=== PATIENT | male | born 1945 | race Caucasian/White ===

== ENCOUNTER 2024-02-12 14:54 | Outpatient (OUT) | payer MEDICARE, BC, SELFPAY ==
--- NOTE | 2024-02-12 16:13 | PE_ITS ---
[address] [address] Patient Name: HILARY LEAL MRN: [id number] date: 1945 Sex: M Assigned Patient Location: PETCT Current Patient Location: PETCT Accession/Order Number: [id number] Exam Date: 02/12/2024 15:30 Report Date: 02/21/2024 10:42 At the request of: NON-STAFF PHYSICIAN Procedure: PET skull to mid thigh NUCLEAR MEDICINE PET/CT HISTORY: Left parotid carcinoma. COMPARISON: None. METHOD: 12.34 mCi of F-18 FDG was administered intravenously. Blood sugar level at the time of the injection: 106. At 59 minutes from injection, PET images were obtained from the skull base through the midthigh levels in the axial plane. Reformatted images were performed in the sagittal and coronal planes. A low-dose, noncontrast CT scan was performed for attenuation correction and anatomical localization. A low dose, noncontrast and nondiagnostic CT scan was performed for attenuation correction and anatomic localization. Mediastinal blood pool SUV max 2.5 using the patient's body weight as the normalization method. FINDINGS: HEAD AND NECK: There are no metabolically active lymph nodes in the neck. CHEST: There are no metabolically active mediastinal, hilar, or axillary lymph nodes. The major airways are patent. There is no pericardial effusion. There is no evidence of abnormal metabolic uptake in the esophagus. There is no evidence of abnormal metabolic uptake in the lung parenchyma. There is there are emphysematous changes. There are no pleural effusions. There is no pneumothorax. ABDOMEN AND PELVIS: There is no evidence of abnormal metabolic activity in the liver or adrenal glands. There is no evidence of abnormal metabolic active lymph nodes in the abdomen or pelvis. There is no free fluid. There is physiologic uptake in the urinary system and bowel. MUSCULOSKELETAL: There is no evidence of abnormal metabolically active bony lesions. PET/PET skull to mid thigh IMPRESSION: No evidence of metastatic disease. Emphysema. Electronically authenticated by: MARY FRENCH Date: 02/21/2024 10:42
== END 2024-02-12 14:55 | disposition home or self-care (01) ==
LOC: PETCT 14:54
PROVIDERS: PCP Family Medicine
DX: C79.89 Secondary malignant neoplasm of other specified sites (principal); C80.1 Malignant (primary) neoplasm, unspecified
CPT/HCPCS: 78815; A9552

== ENCOUNTER 2024-05-15 10:55 | Outpatient (OUT) | payer MEDICARE, BC, SELFPAY | END 2024-05-15 10:56 | disposition home or self-care (01) | LOC: WC 10:55 | PROVIDERS: PCP Family Medicine; Visit Provider Physician Assistant | DX: I87.311 Chronic venous hypertension (idiopathic) with ulcer of right lower extremity (principal); L97.811 Non-pressure chronic ulcer of other part of right lower leg limited to breakdown of skin; L97.511 Non-pressure chronic ulcer of other part of right foot limited to breakdown of skin | CPT/HCPCS: G0463 ==

== ENCOUNTER 2024-06-12 15:17 | Outpatient (OUT) | payer MEDICARE, BC, SELFPAY | END 2024-06-12 15:18 | disposition home or self-care (01) | LOC: WC 15:18 | PROVIDERS: PCP Family Medicine; Visit Provider Physician Assistant | DX: I87.311 Chronic venous hypertension (idiopathic) with ulcer of right lower extremity (principal); L97.811 Non-pressure chronic ulcer of other part of right lower leg limited to breakdown of skin; L97.511 Non-pressure chronic ulcer of other part of right foot limited to breakdown of skin; L89.893 Pressure ulcer of other site, stage 3 | CPT/HCPCS: G0463 ==

== ENCOUNTER 2024-07-03 13:00 | Outpatient (OUT) | payer MEDICARE, BC, SELFPAY ==
--- OUTSIDE RECORDS SUMMARY | 2024-06-11 11:07 | XMS_ITS ---
Author Name Auto Generated Organization [facility] Care Team Providers Care Cabinetmaker Supervisor Name Role Phone NILSON ETIENNE Admitting Unavailable NILSON ETIENNE Attending Unavailable ROBY DE LA O Primary Care Unavailable NILSON ETIENNE Referring Unavailable ROBY DE LA O Primary Care Unavailable ROBY DE LA O Attending Unavailable ZELDA ROSENBAUM Attending Unavailable NILSON ETIENNE Attending Unavailable GENERIC PROVIDER, NO ASSIGNED PCP Primary Care Unavailable MANJINDER GALLOWAY Attending Unavailable GENERIC PROVIDER, NO ASSIGNED PCP Primary Care Unavailable NILSON ETIENNE Attending Unavailable ROBY DE LA O Primary Care Unavailable NLISON ETIENNE Attending Unavailable ROBY DE LA O Primary Care Unavailable NILSON ETIENNE Attending Unavailable ROBY DE LA O Primary Care Unavailable PROBLEMS DATE TYPE CONDITION / CODE ATTENDING STATUS [facility] 06/11/2024 Admitting Diagnosis Impacted cerumen, left ear / H61.22(ICD-10) [facility] 12/26/2023 Admitting Diagnosis Secondary malignant neoplasm of other specified sites / 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) [facility] 12/26/2023 Admitting Diagnosis Malignant (primary) neoplasm, unspecified (Multi) / C80.1(ICD-10) [facility] 10/24/2023 Admitting Diagnosis 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(ICD-10) [facility] 01/30/2023 Admitting Diagnosis Other diseases of salivary glands / K11.8(ICD-10) [facility] 11/07/2023 Admitting Diagnosis Personal history of nicotine dependence / Z87.891(ICD-10) [facility] 01/17/2023 Admitting Diagnosis Shortness of breath / R06.02(ICD-10) [facility] 01/17/2023 Admitting Diagnosis Encounter for preprocedural cardiovascular examination / Z01.810(ICD-10) [facility] 01/17/2023 Admitting Diagnosis Occlusion and stenosis of right carotid artery / I65.21(ICD-10) [facility] 01/17/2023 Admitting Diagnosis Mixed hyperlipidemia / E78.2(ICD-10) [facility] 01/17/2023 Admitting Diagnosis Ischemic cardiomyopathy / I25.5(ICD-10) [facility] 01/17/2023 Admitting Diagnosis 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.10(ICD-10) [facility] PROCEDURES No Procedure Records Found RESULTS GLUCOSE Collected: 4 10:13 PM Status: F Source: [facility] TYPE CODE TESTS RESULT OUT OF RANGE REFERENCE UNITS LAB 2341-6(LOINC) Glucose 91 74-99 mg/dL Performed By: #### 2341-6 ## ## MONICA SCHMOTZER L ([id number]) [facility] ([facility]) [address] [place] [address] GLUCOSE Collected: 7:12 PM Status: F Source: [facility] TYPE CODE TESTS RESULT OUT OF RANGE REFERENCE UNITS LAB 2341-6[facility] Glucose 164 High 74-99 mg/dL Performed By: #### 2341-6 ## ## MONICA SCHMOTZER L ([id number]) [facility] ([facility]) [address] [place] [address] SURGICAL PATHOLOGY STUDY Observed: 11/21 2:40 PM Status: F Source: [facility] Order Comment: Pre-op diagno sis: Malignant neoplasm of parotid gland (Multi) [C07] Pathology report.total SEE COMMENT Surgical Pathology Case: [id number] Authorizing Provider: Nilson Etienne MD Collected: 11/22/2023 1440 Ordering Location: [facility] Received: 11/22/2023 1443 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 - Margins are negative, closest: Deep and superficial superior (less than 0.1 cm). - Three periparotid lymph nodes, negative for malignancy. Note: While this is most likely consistent with a metastasis, a primary parotid malignancy cannot entirely be ruled out. Clinical correlation is recommended. mental hygiene consultant: Dr. Gabriel Walls. Laboratory comment By the signature on this report, the individual or group listed as making the Final Interpretation/Diagnosis certifies that they have reviewed this case. RESIDENT REVIEW The gross and/or microscopic findings were reviewed in conjunction with pathology resident, Ewa Ni MD. 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 The specimen has 2 stitches which are designated as follows: Long stitch superior, short stitch anterior. The specimen is inked as follows: deep-black, superficial-blue, posterior-green, anterior-yellow. The specimen is serially sectioned from superior to inferior to reveal a pale yellow well circumscribed mass, which measures 2.5 x 1.2 x 1.3 cm. This mass abuts the deep margin, less than 0.1 cm from deep margin. This mass abuts the superficial margin, less than 0.1 cm from the superficial margin. The mass is 0.2 cm from the posterior margin, and 0.3 cm from the anterior margin. The specimen is serially sectioned from superior to inferior in 11 slices total. Photographs have been taken. The specimen is submitted entirely in 12 cassettes. [facility] Summary of Cassettes: Specimen Label Site A 1 Frozen portion, taken from section 2 of specimen, containing largest mass 2 Most superior section 1, cut perpendicular to serial sections 3-11 One section per cassette in order from superior section 2 to inferior section 10 12 Most inferior section 11, cut perpendicular to serial sections LAB AP INTRAOPERATIVE CONSULTATION SEE COMMENT A: Received Date and Time: 11/22/23 Called Date and Time: 11/22/23 at 3:13 Intraoperative Diagnosis: Squamous cell carcinoma. Intraoperative Consult Pathologist(s): Jan Ibrahim MD COMPLETE BLOOD COUNT PANEL Collected: 11/15/2023 10:5 2 AM Status: F Source: [facility] TYPE CODE TESTS RESULT OUT OF RANGE REFERENCE UNITS LAB 6690-2(LOINC) Leukocytes 9.3 4.4-11.3 x10*3/ uL LAB 17493-1(LOINC) Erythrocytes.nuc l eated/100 leukocytes 0.0 0.0-0.0 /100 WBCs LAB 789-8(LOINC) Erythrocytes 4.17 Low 4.50-5.90 x10* 6/uL LAB 718-7(LOINC) Hemoglobin 14.3 13.5-17.5 g/dL LAB 4544-3(LOINC) Hematocrit 42.9 41.0-52.0 % LAB 787-2(LOINC) Erythrocyte mean corpuscular volume 103 High 80-100 fL LAB 785-6(LOINC) Erythrocyte mean corpuscular hemoglobin 34.3 High 26.0-34.0 pg LAB 786-4(LOINC) Erythrocyte mean corpuscular hemoglobin concentration 33.3 32.0-36.0 g/dL LAB 788-0(LOINC) Erythrocyte distribution width 14.0 11.5-14.5 % LAB 777-3(LOINC) Platelets 130 Low 150-450 x10*3/uL Performed By: #### 09848-2 # ### MONICA Ramirez ([id number]) [facility] ([facility]) [id number] [place] [address] BASIC METABOLIC 2000 PANEL Collected: 1 10:52 AM Status: F Source: [facility] TYPE CODE TESTS RESULT OUT OF RANGE REFERENCE UNITS LAB 2345-7(LOINC) Glucose 39 Low Alert 74-99 mg/dL LAB 2951-2(LOINC) Sodium 143 136-145 mmol/L LAB 2823-3(LOINC) Potassium 4.3 3.5-5.3 mmol/L LAB 2075-0(LOINC) Chloride 99 98-107 mmol/L LAB 2028-9(LOINC) Carbon dioxide 33 High 21-32 mmo l/L LAB 95875-5(LOINC) Anion gap 15 10-20 mmol/L LAB 3094-0(LOINC) Urea nitrogen 41 High 6-23 mg/d L LAB 2160-0(LOINC) Creatinine 1.57 High 0.50-1.30 mg/dL LAB 93787-2(LOINC) Glomerular filtration rate/1.73 sq M.predicted 45 Low >60 mL/min/1 .73m*2 Result Comment: Calculations of estimated GFR are performed using the 2020 CKD- EPI Study Refit equation without the race variable for the IDMS-Traceable creatinine methods. https://jasn.asnjournals.org/content///ASN.9503878457 LAB 53856-7(LOINC) Calcium 9.7 8.6-10.6 mg/dL Performed By: #### 94928-5 # ### MONICA Ramirez ([id number]) [facility] ([facility]) [address] [place] [address] ALLERGIES DATE TYPE / CODE NAME / CODE REACTION SEVERITY SOURCE 12/26/2022 DRUG INGREDI/616189 003(SNOMED CT) RAMIPRIL Angioedema [facility] 12/26/2022 DRUG INGREDI/915169 003(SNOMED CT) MORPHINE Unknown [facility] 12/26/2022 DRUG/083893722 (SNOMED CT) NUTRITIONAL SUPPLEMENT-FIBER Unknown [facility] 10/27/2004 DRUG INGREDI~Food/ 87048670(SNOME D CT) CITRUS FLAVOR [facility] 10/27/2004 DRUG INGREDI~Food/ 84614395(SNOME D CT) EGG [facility] ENCOUNTERS ADMIT/DISCHARGE ACCOUNT NUMBER ADMITTING ENCOUNTER CLASS LOCATION SOURCE 06/11/2024/06/12/19 [id number] Ambulatory Building:DO [address] Ambulatory 03/26/2024/03/26/19 25 [id number] Ambulatory Building:DO [address] Ambulatory 12/26/2023/12/26/19 24 [id number] Ambulatory Building:DO [address] Ambulatory 11/22/2023/11/24/19 24 [id number] NILSON ETIENNE Ambulatory Building:NM C5Room: [id number] : 5001-A [facility] 11/15/2023/11/15/19 24 [id number] [facility] 11/07/2023/11/08/19 24 [id number] Ambulatory Building:DO [address] Ambulatory 10/24/2023/10/24/19 24 [id number] Ambulatory Building:DO [address] Ambulatory 10/11/2023/10/11/19 24 [id number] Ambulatory Building:NO MS NAVEENJUDY [facility] 10/11/2023/10/11/19 24 [id number] Ambulatory Building:NO MS NAVEENMED [facility] PAYERS ENCOUNTER GUARANTOR PAYER SUBSCRIBER SOURCE 06/11/2024 HILARY Andrew COEDOB: [place] [address]Xqf: () Primary Insurance:MEDICARE Policy Number: [id number] ve Date:2011-01-13 HILARY Andrew COEDOB: [id number] [place] [address]Wmz: () [facility] 06/11/2024 Secondary Insurance:ANTHEMPo licy Number: [id number] jewell Date:2011-10-15 HILARY Andrew COEDOB: [id number] [place] [address]Pml: () [facility] 03/26/2024 HILARY Andrew COEDOB: [place] [address]Vyq: () Primary Insurance:MEDICARE Policy Number: [id number] ve Date:2011-01-13 HILARY Andrew COEDOB: [id number] [place] [address]Wei: () [facility] 03/26/2024 Secondary Insurance:ANTHEMPo licy Number: [id number] jewell Date:2011-10-15 HILARY Andrew COEDOB: [id number] [place] [address]Zvn: () [facility] 12/26/2023 HILARY Andrew COEDOB: [place] [address]Axh: () Primary Insurance:MEDICARE Policy Number: [id number] Date:2011-01-13 HILARY Andrew COEDOB: [id number] [place] [address]Tpp: () [facility] 12/26/2023 Secondary Insurance:ANTHEMPo licy Number: [id number] jewell Date:2011-10-15 HILARY Andrew COEDOB: [id number] [place] [address]Spt: () [facility] 11/22/2023 HILARY Andrew COEDOB: [place] [address]Ltj: () Primary Insurance:MEDICARE Policy Number: [id number] ve Date:2011-01-13 HILARY Andrew COEDOB: [id number] [place] [address]Lbg: () [facility] 11/22/2023 Secondary Insurance:ANTHEMPo licy Number: [id number] jewell Date:2011-10-15 HILARY Andrew COEDOB: [id number] [place] [address]Cdh: () [facility] 11/15/2023 HILARY Andrew COEDOB: [place] [address]Evm: () Primary Insurance:MEDICARE Policy Number: [id number] Date:2011-01-13 HILARY Andrew COEDOB: [id number] [place] [address]Rig: () [facility] 11/15/2023 Secondary Insurance:ANTHEMPo licy Number: [id number] jewell Date:2011-10-15 HILARY Andrew COEDOB: [id number] [place] [address]Gpp: () [facility] 11/07/2023 HILARY Andrew COEDOB: [place] [address]Jyq: () Primary Insurance:MEDICARE Policy Number: [id number] ve Date:2011-01-13 HILARY Andrew COEDOB: [id number] [place] [address]Pah: () [facility] 11/07/2023 Secondary Insurance:ANTHEMPo licy Number: [id number] jewell Date:2011-10-15 HILARY Andrew COEDOB: [id number] [place] [address]Dto: () [facility] 10/24/2023 HILARY Andrew COEDOB: [place] [address]Eul: () Primary Insurance:MEDICARE Policy Number: [id number] ve Date:2011-01-13 HILARY Andrew COEDOB: [id number] [place] [address]Mtj: () [facility] 10/24/2023 Secondary Insurance:ANTHEMPo licy Number: [id number] jewell Date:2011-10-15 HILARY Andrew COEDOB: [id number] [place] [address]Mwu: () [facility] 10/11/2023 HILARY Andrew COEDOB: [place] [address]Dei: () () Primary Insurance:MEDICARE Policy Number: [id number] Date:1047-69-69Vkv n Name:Medicare HILARY Andrew COEDOB: [id number] [place] [address] [facility] 10/11/2023 Secondary Insurance:BCBSPoli cy Number: [id number] jewell Date:2011-10-15 HILARY Lorrie COEDOB: [id number] [place] [address] [facility] 10/11/2023 HILARY Andrew COEDOB: [place] [address]Yhx: (HP) (WP) Primary Insurance:MEDICARE Policy Number: [id number] Date:2108-38-01Dtq n Name:Medicare HILARY Andrew COEDOB: [id number] [facility] [place] [place] [address] [facility] 10/11/2023 Secondary Insurance:BCBSPoli cy Number: [id number] jewell Date:2011-10-15 HILARY Andrew COEDOB: [id number] [place] [address] [facility] EPIC
--- OUTSIDE RECORDS SUMMARY | 2024-07-04 13:29 | XMS_ITS | Encounter Summary ---
Author Organization [facility] Address [address] [place] [address] Phone Care Team Providers Care Foil Cutter Name Role Phone Generic Provider, No Assigned Pcp MD Primary Car e Provider Unavailable Franck Pérez MD Unavailable [phone] Yahir Bowling DO Unavailable [phone] Raheem Ambrosio DO Primary Care Provider [phone] Encounter Details Date Type Department Care Team (Late st Contact Info) Description 05/02/2023 Scanned Document [facility] [address] [place] [address] Scanning, Generic Provider Social History Tobacco Use Types Packs/Day Years Used Date Smoking Tobacco: Every Day Cigarettes Last attempted to quit: 2022 Smokeless Tobacco: Current Alcohol Use Standard Drinks/Week Comments Not Currently 0 (1 standard drink = 0.6 oz pur e alcohol) PHQ-2 Answer Date Recorded Patient Health Questionnaire-2 Score 0 01/27/2023 Sex and Gender Information Value Date Recorded Sex Assigned at Not on file Legal Sex Male 1:26 AM EST Gender Identity Not on file Sexual Orientation Not on file documented as of this encounter Plan of Treatment Upcoming Encounters Date Type Department Care Team (Late st Contact Info) Description 08/06/2024 11:30 AM EDT Office Visit [place] [address] [place] [address] [place] [address] [place] [address] [place] [address] 09/17/2024 1:30 PM EDT Office Visit [facility] [address] [facility] [address] [place] [address] Francisco Moore MD [address] [facility] [address], [address] [place] [address] documented as of this encounter Visit Diagnoses Not on filedocumented in this encounter Additional Health Concerns Assessment Noted Time A fall risk assessment has been complete d for the patient 01/27/2023 10:52 AM EST documented as of this encounter Care Teams Foil Cutter Relationship Specialty Start Date End Date Generic Provider, No Assigned [place], [place] [address] PCP - General Family Medicine 12/31/22 11/14/23 Raheem Ambrosio DO [address] [place] [address] PCP - General Family Medicine 11/15/23 Franck Pérez MD [address] [place] [address] Referring Physician Radiation Oncology 01/12/23 Yahir Bowling DO [address] [place] [address] Referring Physician Otolaryngology 01/27/23 documented as of this encounter
--- OUTSIDE RECORDS SUMMARY | 2024-07-04 13:29 | XMS_ITS | Encounter Summary ---
Author Organization [facility] Address [address] [place] [address] Phone Care Team Providers Care Conditioning Coach Name Role Phone Generic Provider, No Assigned Pcp MD Primary Car e Provider Unavailable Franck Pérez MD Unavailable [phone] Yahir Bowling DO Unavailable [phone] Raheem Ambrosio DO Primary Care Provider [phone] Encounter Details Date Type Department Care Team (Late st Contact Info) Description 12/21/2022 Scanned Document [facility] [address] [place] [address] Scanning, Generic Provider Social History Tobacco Use Types Packs/Day Years Used Date Smoking Tobacco: Never Assessed Sex and Gender Information Value Date Recorded Sex Assigned at Not on file Legal Sex Male 1:26 AM EST Gender Identity Not on file Sexual Orientation Not on file documented as of this encounter Plan of Treatment Upcoming Encounters Date Type Department Care Team (Late st Contact Info) Description 08/06/2024 11:30 AM EDT Office Visit [facility] [address] [facility] [address] [place] [address] [place] [address] [place], [place] [address] 09/17/2024 1:30 PM EDT Office Visit [facility] [address] [facility] [address] [place] [address] Francisco Moore MD [address] [facility] 2, [address] [place] [address] documented as of this encounter Visit Diagnoses Not on filedocumented in this encounter Care Teams Conditioning Coach Relationship Specialty Start Date End Date Generic Provider, No Assigned [place], [place] [address] PCP - General Family Medicine 12/31/22 11/14/23 Raheem Ambrosio DO [address] [place] [address] PCP - General Family Medicine 11/15/23 Franck Pérez MD [address] [place] [address] Referring Physician Radiation Oncology 01/12/23 Yahir Bowling DO [address] [place] [address] Referring Physician Otolaryngology 01/27/23 documented as of this encounter
--- OUTSIDE RECORDS SUMMARY | 2024-07-04 13:29 | XMS_ITS | Clinical Summary ---
Author Organization [facility] Address [address] [place] [address] Phone Care Team Providers Care Soap Mixer Name Role Phone Franck Pérez MD Unavailable [phone] Yahir Bowling DO Unavailable [phone] Raheem Ambrosio DO Primary Care Provider [phone] Allergies Active Allergy Reactions Criticality Noted Date Comments Ramipril Angioedema High 12/26/2022 Overton Flavor Hives 10/27/2004 Morphine Unknown High 12/26/2022 Medications allopurinol (Zyloprim) 300 mg tablet Take 1 tablet (300 mg) by mouth once daily. Active ARIPiprazole (Abilify) 5 mg tablet Take 1 tablet (5 mg) by mouth once daily. Active aspirin 81 mg EC tablet Take 1 tablet (81 mg) by mouth once daily. Active atorvastatin (Lipitor) 10 mg tabletIndicatio ns:hyperlipidem ia Take 1 tablet (10 mg) by mouth once daily at bedtime. For HLD Active carvedilol (Coreg) 3.125 mg tablet Take 1 tablet (3.125 mg) by mouth 2 times daily (morning and late afternoon). For HTN Active potassium chloride CR 10 mEq ER tablet Take 1 tablet (10 mEq) by mouth once daily. Do not crush, chew, or split. For hypokalemia Active pregabalin (Lyrica) 100 mg capsule Take 1 capsule (100 mg) by mouth 2 times a day. For neuropathy Active tamsulosin (Flomax) 0.4 mg 24 hr capsuleIndicati ons:benign prostatic hyperplasia with lower urinary tract sx Take 1 capsule (0.4 mg) by mouth once daily. Active vortioxetine (Trintellix) 10 mg tablet tablet Take 1 tablet (10 mg) by mouth once daily. Active docusate sodium (Colace) 100 mg capsule Take 1 capsule (100 mg) by mouth every 24 (twenty four) hours if needed for constipation. Active ferrous sulfate 325 (65 Fe) MG EC tabletIndicatio ns:iron deficiency anemia Take 65 mg by mouth every other day. Do not crush, chew, or split. Active multivitamin tablet Take 1 tablet by mouth once daily. For vitamins Active ascorbic acid (Vitamin C) 500 mg ER capsule Take 1 capsule (500 mg) by mouth twice a day. For vitamin Active cholecalciferol (Vitamin D-3) 10 MCG (400 UNIT) tablet Take 1 tablet (10 mcg) by mouth once daily. For Vitamin D Active furosemide (Lasix) 40 mg tabletIndicatio ns:edema Take 1 tablet (40 mg) by mouth once daily. Active mirtazapine (Remeron) 30 mg tablet Take 1 tablet (30 mg) by mouth once daily at bedtime. For insomnia 4 Active calcium carbonate (Oscal) 500 mg calcium (1,250 mg) tablet Take 1 tablet (1,250 mg) by mouth 2 times daily (morning and late afternoon). For osteoporosis Active pantoprazole (ProtoNix) 40 mg EC tablet Take 1 tablet (40 mg) by mouth early in the morning.. For GERD 4 Active fluticasone (Flonase) 50 mcg/actuation nasal spray 5 Active HYDROcodone-hermelinda taminophen (Glenwood) 5-325 mg tablet 5 Active codeine-guaifen esin (Robitussin-AC) 10-100 mg/5 mL syrup Take by mouth. Activ e calcium carbonate-vitam in D3 (Oyster Shell) 250 mg-3.125 mcg (125 unit) tablet Take 1 tablet by mouth 2 times daily (morning and late afternoon). Active lubricating eye drops ophthalmic solution 1 drop if needed for dry eyes. 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 01/30/2023 Two-vessel coronary artery disease 01/17/2023 Ischemic cardiomyopathy 01/17/2023 Mixed hyperlipidemia 01/17/2023 Dementia 01/17/2023 Carotid stenosis, right 01/17/2023 Pre-operative cardiovascular examination 023 Shortness of breath 01/17/2023 Encounters Date Type Department Care Team Description 06/11/2024 11:00 AM EDT Office Visit [facility] [address] [place] [address] Nilson Diaz MD Malignant neoplasm of parotid gland (Multi) (Primary Dx); Impacted cerumen of left ear 06/11/2024 Telephone [facility] [address] [place] [address] Nilson Diaz MD 06/11/2024 Travel from Last 3 Months Family History Medical History Relation Name Comments Heart disease Father No Known Problems Mother Relation Name Status Comments Father Mother Social History Tobacco Use Types Packs/Day Years Used Date Smoking Tobacco: Some Days Cigarettes Last attempted to quit: 2022 Smokeless Tobacco: Never Tobacco Cessation:Ready to Q uit: No; Counseling Given: Yes Alcohol Use Standard Drinks/Week Comments Not Currently 0 (1 standard drink = 0.6 oz pur e alcohol) [facility] Utilities Answer Date Recorded In the past 12 months has [facility] [employer], gas, oil, or water [employer] threatened to shut off services in your home? No 11/22/2023 Humiliation, Afraid, Rape, and Kick questionnair e Answer Date Recorded Within the last year, have y ou been afraid of your partner or ex-partner? No 11/22/2023 Within the last year, have y ou been humiliated or emotionally abused in other ways by your partner or ex-partner? No Within the last year, have y ou been kicked, hit, slapped, or otherwise physically hurt by your partner or ex-partner? No 11/22/2023 Within the last year, have y ou been raped or forced to have any kind of sexual activity by your partner or ex-partner? No 11/22/2023 AUDIT-C Answer Date Recorded Q1: How often do you have a drink containing alcohol? Never 11/22/2023 Q2: How many drinks containi ng alcohol do you have on a typical day when you are drinking? Patient does not drink Q3: How often do you have si x or more drinks on one occasion? Never 11/22/2023 Overall Financial Resource Strain (CARDIA) Answe r Date Recorded How hard is it for you to pa y for the very basics like food, housing, medical care, and heating? Not hard at all 11/23/2023 PHQ-2 Answer Date Recorded Patient Health Questionnaire-2 Score 0 11/22/2023 Hunger Vital Sign Answer Date Recorded Within the past 12 months, y ou worried that your food would run out before you got the money to buy more. Never true 11/22/19 Within the past 12 months, t he food you bought just didn't last and you didn't have money to get more. Never true 11/22/2023 PRAPARE - Transportation Answer Date Re corded In the past 12 months, has l ack of transportation kept you from medical appointments or from getting medications? No 11/13 In the past 12 months, has l ack of transportation kept you from meetings, work, or from getting things needed for daily living? No 11/23/2023 Housing Stability Vital Sign Answer Levon e Recorded In the last 12 months, was t here a time when you were not able to pay the mortgage or rent on time? Patient declined 11/23/19 In the past 12 months, how m any times have you moved where you were living? 0 11/23/2023 At any time in the past 12 m [facility], were you homeless or living in a long-term (including now)? No 11/23/2023 Sex and Gender Information Value Date Recorded Sex Assigned at Not on file Legal Sex Male 1:26 AM EST Gender Identity Not on file Sexual Orientation Not on file COVID-19 Exposure Response Date Recorded In the last 10 days, have yo u been in contact with someone who was confirmed or suspected to have Coronavirus/COVID-19? No / Unsure 06/11/2024 11:06 AM EDT Last Filed Vital Signs Vital Sign Reading Time Taken Comments Blood Pressure 156/72 11/24/2023 7:21 AM EDT Pulse 56 11/24/2023 7:21 AM EDT Temperature 36.2 C (97.2 F) 11/24/2023 7:21 AM EDT Respiratory Rate 12 11/24/2023 7:21 AM EDT Oxygen Saturation 95% 11/24/2023 7:21 AM EDT Inhaled Oxygen Concentration - - Weight 107 kg (235 lb) 03/26/2024 10:41 AM EST Height 188 cm (6' 2 ) 03/26/2024 10:41 AM EST Body Mass Index 30.17 03/26/2024 10:41 AM EST Plan of Treatment Upcoming Encounters Date Type Department Care Team (Late st Contact Info) Description 08/06/2024 11:30 AM EDT Office Visit [facility] [address] [place] [address] [place] [address] [place] [address] 09/17/2024 1:30 PM EDT Office Visit [facility] [address] [facility] [address] [place] [address] Francisco Moore MD 703 [facility] 2, [address] [place] [address] Health Maintenance Due Date Last Done Comments Thyroglobulin Test 1945 Hepatitis C Screening 01/30/1964 CKD: Urine Protein Screening 1965 Zoster Vaccines (3 of 3) 03/25/2023 023, 07/01/2016, 06/30/2016 COVID-19 Vaccine ( season) 2023 01/28/2023, 05/21/2021, 01/12/2021, Additional history exists Echocardiogram 12/20/2023 12/19/2022, 09/10/2021 Medicare Annual Wellness Visit (AWV) 10/11/2024 10/11/2023, 04/26/2022, 01/20/2021, Additional history exists Influenza Vaccine (Season Ended) 2024 01/12/2021, 11/16/2019 Creatinine Level 11/14/2024 11/15/2023, 02/16/2023 Potassium Level 11/14/2024 11/15/2023, 02/16/2023 Diabetes Screening 11/22/2024 11/23/2023, 11/23/2023 Lipid Panel 10/10/2028 10/11/2023 DTaP/Tdap/Td Vaccines (2 - Td or Tdap) 01/28/2033 01/28/2023 Pneumococcal Vaccine Completed 12/28/2022, 11/16/2019, 06/10/2016, Additional history exists RSV High Risk: (Elderly (60+) or Population) Completed 01/28/2023 HIB Vaccines Aged Out No longer eligi ble based on patient's age to complete this topic HPV Vaccines Aged Out No longer eligi ble based on patient's age to complete this topic Hepatitis A Vaccines Aged Out No long er eligible based on patient's age to complete this topic Hepatitis B Vaccines Aged Out No long er eligible based on patient's age to complete this topic IPV Vaccines Aged Out No longer eligi ble based on patient's age to complete this topic Meningococcal Vaccine Aged Out No angelica reina eligible based on patient's age to complete this topic Rotavirus Vaccines Aged Out No longer eligible based on patient's age to complete this topic Procedures Procedure Name Priority Date/Time Associated Diagnosis Comments POCT GLUCOSE Routine 11/23/2023 7:12 PM EDT BASIC METABOLIC PANEL Routine 11/15/2023 10:52 AM EDT Malignant neoplasm of parotid gland (Multi) ECHOCARDIOGRAM 12/19/2022 from Last 3 Months or Most Recently Relevant to Health Maintenance Results * (ABNORMAL) POCT GLUCOSE (11/23/2023 7:12 PM EDT) POCT Glucose 164(H) 74 - 99 mg/dL 11/23/2023 7:16 PM EDT [facility] Blood Capillary blood specimen / Unknown 11/23/2023 7:12 PM EDT 11/23/2023 7:16 PM EDT Nilson Diaz MD LAB POINT OF CARE TE ST DOCKED DEVICE UNSOLICITED RESULTS Final Result [facility] [address] [address] [place] [address] * (ABNORMAL) Basic Metabolic Panel (11/15/2023 10:52 AM EDT) [facility] Glucose 39(LL) 74 - 99 mg/dL LAB CHEMISTRY METHOD 11/15/2023 3:35 PM EDT [facility] Sodium 143 136 - 145 mmol/L LAB CHEMISTRY METHOD 11/15/2023 3:35 PM EDT [facility] Potassium 4.3 3.5 - 5.3 mmol/L LAB CHEMISTRY METHOD 11/15/2023 3:35 PM EDT [facility] Chloride 99 98 - 107 mmol/L LAB CHEMISTRY METHOD 11/15/2023 3:35 PM EDT [facility] Bicarbonate 33(H) 21 - 32 mmol/L LAB CHEMISTRY METHOD 11/15/2023 3:35 PM EDT [facility] Anion Gap 15 10 - 20 mmol/L LAB CHEMISTRY METHOD 11/15/2023 3:35 PM EDT [facility] Urea Nitrogen 41(H) 6 - 23 mg/dL LAB CHEMISTRY METHOD 11/15/2023 3:35 PM EDT [facility] Creatinine 1.57(H) 0.50 - 1.30 mg/dL LAB CHEMISTRY METHOD 11/15/2023 3:35 PM EDT [facility] eGFR 45(L) >60 mL/min/1. 73m*2 LAB CHEMISTRY METHOD 11/15/2023 3:35 PM EDT [facility] Comment: Calculations of estimated GFR are performed using the 2020 CKD-EPI Study Refit equation without the race variable for the IDMS-Traceable creatinine methods. https://jasn.asnjournals.org/content//ASN.7449920628 Calcium 9.7 8.6 - 10.6 mg/dL LAB CHEMISTRY METHOD 11/15/2023 3:35 PM EDT [facility] Blood Venous blood specimen / Unknown Venipuncture / Unknown 11/15/2023 10:52 AM EDT 11/15/2023 1:20 PM EDT us Nilson Diaz MD LAB BLOOD ORDERABLES Final Res ult [facility] [address] [facility] [address] [place], [place] [id number] * ECHOCARDIOGRAM (12/19/2022) Narrative 12/19/2022 Ordered by an unspecified provider. us Generic Provider Scanning CV ECHO PROCEDURES Fin al Result from Last 3 Months or Most Recently Relevant to Health Maintenance Insurance MEDICARE PART A AND B [facility] MEDICARE PART A AND B [facility] Advance Directives For more information, please contact: [phone] (Available ) * Full Code (Latest Code Status on File) Date Activated Date Inactivated Comments 11/22/2023 5:32 PM Question Answer Comments Plan of Care: Code Status Discussion Completed Decision Maker: Patient Care Teams Soap Mixer Relationship Specialty Start Date End Date Raheem Ambrosio DO [address] [place] [address] PCP - General Family Medicine 11/15/23 Franck Pérez MD [address] [place] [address] Referring Physician Radiation Oncology 01/12/23 Yahir Bowling DO [address] [place] [address] Referring Physician Otolaryngology 01/27/23
--- OUTSIDE RECORDS SUMMARY | 2024-07-04 13:29 | XMS_ITS | Encounter Summary ---
Author Organization [facility] Address [address] [place] [address] Phone Care Team Providers Care Dado Operator Name Role Phone Generic Provider, No Assigned Pcp MD Primary Car e Provider Unavailable Franck Pérez MD Unavailable [phone] Yahir Bowling DO Unavailable [phone] Raheem Ambrosio DO Primary Care Provider [phone] Encounter Details Date Type Department Care Team (Late st Contact Info) Description 12/19/[address] [facility] [address] [place] [id number] Scanning, Generic Provider Social History Tobacco Use [...] Description 08/06/2024 11:30 AM EDT Office Visit [facility] [address] [facility] [address] [place] [address] [place] [address] [place], [place] [address] 09/17/2024 1:30 PM EDT Office Visit [facility] [address] [facility] [address] [place] [address] Francisco Moore MD 703 [facility] 2, [address] [place] [address] documented as of this encounter Procedures Procedure Name Priority Date/Time Associated Diagnosis Comments OUTSIDE IMAGING SCAN 12/19/2022 ECHOCARDIOGRAM 12/19/2022 documented in this encounter Results * ECHOCARDIOGRAM (12/19/2022) Narrative 12/19/2022 Ordered by an unspecified provider. us Generic Provider Scanning CV ECHO PROCEDURES Fin al Result * OUTSIDE IMAGING SCAN (12/19/2022) Anatomical Region Laterality Modality Other Narrative 12/19/2022 Ordered by an unspecified provider. us Generic Provider Scanning OUTSIDE SCAN Final Result documented in this encounter Visit Diagnoses Not on filedocumented in this encounter Care Teams Dado Operator Relationship Specialty Start Date End Date Generic Provider, No Assigned Pcp, NONE [facility] [place] [address] PCP - General Family Medicine 12/31/22 11/14/23 Raheem Ambrosio DO [address] [place] [address] PCP - General Family Medicine 11/15/23 Franck Pérez MD [address] [place] [address] Referring Physician Radiation Oncology 01/12/23 Yahir Bowling DO [address] [place] [address] Referring Physician Otolaryngology 01/27/23 documented as of this encounter
--- OUTSIDE RECORDS SUMMARY | 2024-07-04 13:30 | XMS_ITS | Encounter Summary ---
Author Organization [facility] Address [address] [place] [address] Phone Care Team Providers Care Change Over Name Role Phone Generic Provider, No Assigned Pcp MD Primary Car e Provider Unavailable Franck Pérez MD Unavailable [phone] Yahir Bowling DO Unavailable [phone] Raheem Ambrosio DO Primary Care Provider [phone] Encounter Details Date Type Department Care Team (Late st Contact Info) Description 12/23/2022 Scanned Document [facility] [address] [place] [phone] Scanning, Generic Provider Social History Tobacco Use [...] 08/06/2024 11:30 AM EDT Office Visit [facility] [address] [facility] [address] [place] [address] [place] [address] [place], [place] [phone] 09/17/2024 1:30 PM EDT Office Visit [facility] [address] [facility] [address] [place] [address] Francisco Moore MD 703 [facility] 2, [address] [place] [address] documented as of this encounter Visit Diagnoses Not on filedocumented in this encounter Care Teams Change Over Relationship Specialty Start Date End Date Generic Provider, No Assigned Pcp, [place] [address] PCP - General Family Medicine 12/31/22 11/14/23 Raheem Ambrosio DO [address] [place] [address] PCP - General Family Medicine 11/15/23 Franck Pérez MD [address] [place] [address] Referring Physician Radiation Oncology 01/12/23 Yahir Bowling DO [address] [place] [address] Referring Physician Otolaryngology 01/27/23 documented as of this encounter
--- OUTSIDE RECORDS SUMMARY | 2024-07-04 13:30 | XMS_ITS | Encounter Summary ---
Author Organization [facility] Address [address] [place] [address] Phone Care Team Providers Care Five Piece Expansion Maker Hand Name Role Phone Generic Provider, No Assigned Pcp MD Primary Car e Provider Unavailable Franck Pérez MD Unavailable [phone] Yahir Bowling DO Unavailable [phone] Raheem Ambrosio DO Primary Care Provider [phone] Encounter Details Date Type Department Care Team (Late st Contact Info) Description 01/04/2023 Scanned Document [facility] [address] [place] [address] [place] [address] [place], [place] [id number] Social History Tobacco Use Types Packs/Day Years [...] Description 08/06/2024 11:30 AM EDT Office Visit [facility] [address] [place] [address] [place] [address] [place], [place] [phone] 09/17/2024 1:30 PM EDT Office Visit [facility] [address] [place] [address] Francisco Moore MD 703 [facility] 2, [address] [place] [address] documented as of this encounter Visit Diagnoses Not on filedocumented in this encounter Care Teams Five Piece Expansion Maker Hand Relationship Specialty Start Date End Date Generic Provider, No Assigned [place], [place] [address] PCP - General Family Medicine 12/31/22 11/14/23 Raheem Ambrosio DO [address] [place] [address] PCP - General Family Medicine 11/15/23 Franck Pérez MD 701 [facility] [place] [address] Referring Physician Radiation Oncology 01/12/23 Yahir Bowling DO [address] [place] [address] Referring Physician Otolaryngology 01/27/23 documented as of this encounter
--- OUTSIDE RECORDS SUMMARY | 2024-07-04 13:30 | XMS_ITS | Encounter Summary ---
Author Organization [facility] Address [address] [place] [address] Phone Care Team Providers Care Store Protection Specialist Name Role Phone Generic Provider, No Assigned Pcp MD Primary Car e Provider Unavailable Franck Pérez MD Unavailable [phone] Yahir Bowling DO Unavailable [phone] Raheem Ambrosio DO Primary Care Provider [phone] Encounter Details Date Type Department Care Team (Late st Contact Info) Description 12/22/2022 Scanned Document [facility] [address] [place] [phone] Scanning, Generic Provider Social History Tobacco Use [...] Description 08/06/2024 11:30 AM EDT Office Visit [facility] [address] [facility] [address] [place] [address] [place] [address] [place], [place] [address] 09/17/2024 1:30 PM EDT Office Visit [facility] [address] [facility] [address] [place] [address] Francisco Moore MD 703 [facility] [address], [address] [place] [address] documented as of this encounter Visit Diagnoses Not on filedocumented in this encounter Care Teams Store Protection Specialist Relationship Specialty Start Date End Date Generic Provider, No Assigned Pcp, [place] [address] PCP - General Family Medicine 12/31/22 11/14/23 Raheem Ambrosio DO [address] [place] [address] PCP - General Family Medicine 11/15/23 Franck Pérez MD [address] [place] [address] Referring Physician Radiation Oncology 01/12/23 Yahir Bowling DO [address] [place] [address] Referring Physician Otolaryngology 01/27/23 documented as of this encounter
--- OUTSIDE RECORDS SUMMARY | 2024-07-04 13:30 | XMS_ITS | Encounter Summary ---
Author Organization [facility] Address [address] [place] [address] Phone Care Team Providers Care Supercharger Mechanic Name Role Phone Generic Provider, No Assigned Pcp MD Primary Car e Provider Unavailable Franck Pérez MD Unavailable [phone] Yahir Bowling DO Unavailable [phone] Raheem Ambrosio DO Primary Care Provider [phone] Encounter Details Date Type Department Care Team (Late st Contact Info) Description 04/27/2023 Scanned Document [facility] [address] [place] [address] Scanning, Generic Provider Social History Tobacco Use [...] Description 08/06/2024 11:30 AM EDT Office Visit [place] [address] [place] [address] [place] [address] [place] [address] [place] [address] 09/17/2024 1:30 PM EDT Office Visit [facility] [address] [facility] [address] [place] [address] Francisco Moore MD 703 [facility] [address], [address] [place] [address] documented as of this encounter Procedures Procedure Name Priority Date/Time Associated Diagnosis Comments OUTSIDE IMAGING SCAN 04/27/2023 documented in this encounter Results * OUTSIDE IMAGING SCAN (04/27/2023) Anatomical Region Laterality Modality Other Narrative 04/27/2023 Ordered by an unspecified provider. Generic Provider Scanning OUTSIDE SCAN Final Result documented in this encounter Visit Diagnoses Not on filedocumented in this encounter Additional Health Concerns Assessment Noted Time A fall risk assessment has been complete d for the patient 01/27/2023 10:52 AM EST documented as of this encounter Care Teams Supercharger Mechanic Relationship Specialty Start Date End Date Generic Provider, No Assigned Pcp, N[place] [address] PCP - General Family Medicine 12/31/22 11/14/23 Raheem Ambrosio DO [address] [place] [address] PCP - General Family Medicine 11/15/23 Franck Pérez MD [address] [place] [address] Referring Physician Radiation Oncology 01/12/23 Yahir Bowling DO [address] [place] [address] Referring Physician Otolaryngology 01/27/23 documented as of this encounter
--- OUTSIDE RECORDS SUMMARY | 2024-07-04 13:30 | XMS_ITS | Encounter Summary ---
Author Organization [facility] Address [address] [place] [address] Phone Care Team Providers Care Dockworker Name Role Phone Franck Pérez MD Unavailable [phone] Yahir Bowling DO Unavailable [phone] Raheem Ambrosio DO Primary Care Provider [phone] Encounter Details Date Type Department Care Team (Late st Contact Info) Description 11/22/2023 Scanned Document [facility] [address] [place] [address] [place] [address] [place] [address] Social History Tobacco Use Types Packs/Day Years Used Date Smoking Tobacco: Some Days Cigarettes Last attempted to quit: 2022 Smokeless Tobacco: Never Alcohol Use Standard Drinks/Week Comments Not Currently 0 (1 standard drink = 0.6 oz pur e alcohol) [facility] Utilities Answer Date Recorded In the past 12 months has [employer], oil, or water [employer] threatened to shut off services in your [...] any time in the past [address] [facility], were you homeless or living in a group home (including now)? No 11/23/2023 Sex and Gender Information Value Date Recorded Sex Assigned at Not on file Legal Sex Male 1:26 AM EST Gender Identity Not on file Sexual Orientation Not on file COVID-19 Exposure Response Date Recorded In the last 10 days, have yo u been in contact with someone who was confirmed or suspected to have Coronavirus/COVID-19? No / Unsure 11/22/2023 10:58 AM EDT documented as of this encounter Functional Status * Audit-C Score Answer Date of Assessment Author 0 11/22/2023 7:59 PM BENSONT Mingo Rasmussen RN * Intimate Partner Violence Question Answer Date of Assessment Author Within the last year, have y ou been humiliated or emotionally abused in other ways by your partner or ex-partner? No 11/22/2023 7:56 PM EDT Kaitlin Santo RN Within the last year, have y ou been afraid of your partner or ex-partner? No 11/22/2023 7:56 PM BENSONT Chuy Santo RN Within the last year, have y ou been raped or forced to have any kind of sexual activity by your partner or ex-partner? No 11/22/2023 7:56 PM Mingo Dobbins RN Within the last year, have y ou been kicked, hit, slapped, or otherwise physically hurt by your partner or ex-partner? No 11/22/2023 7:56 PM Mingo Dobbins RN * Question Answer Date of Assessment Author Q1: How often do you have a drink containing alcohol? Never 11/22/2023 7:59 PM Mingo Wynn RN Q2: How many drinks containing alcohol do you have on a typical day when you are drinking? Patient does not drink 11/22/2023 7:59 PM Mingo Wnyn RN Q3: How often do you have six or more drinks on one occasion? Never 11/22/2023 7:59 PM Mingo Wynn RN * Over the past 2 weeks, how often have you been bothered by any of the following problems? Question Answer Date of Assessment Author Patient Health Questionnaire -2 Score 0 11/22/2023 7:59 PM Chuy Wynn RN * Calculated C-SSRS Risk Score (Lifetime/Recent) Answer Date of Assessment Author No Risk Indicated 11/22/2023 11:15 AM EDT Faina Sharma RN * [place] Suicide Severity Rating Scale (Screener/Recent Self-Report) Question Answer Date of Assessment Author 1. Wish to be (Past 1 Month) No 11:15 AM EDT Faina Sharma RN 2. Non-Specific Active Suici azul Thoughts (Past 1 Month) No 11/22/2023 11:15 AM EDT Sonal Sharma RN 6. Suicidal Behavior (Lifetime) No 11:15 AM EDT Faina Sharma RN * Question Answer Date of Assessment Author Little interest or pleasure in doing things Not at all 11/22/2023 7:59 PM EDT Chuy Santo RN Feeling down, depressed, or hopeless Not at all 11/22/2023 7:59 PM EDT Chuy Santo RN documented as of this encounter Plan of Treatment Upcoming Encounters Date Type Department Care Team (Late st Contact Info) Description 08/06/2024 11:30 AM EDT Office Visit [facility] [address] [place] [address] [place] [address] [place] [address] 09/17/2024 1:30 PM EDT Office Visit [facility] [address] [facility] [address] [place] [address] Francisco Moore MD 703 [facility] 2, [address] [place] [address] documented as of this encounter Visit Diagnoses Not on filedocumented in this encounter Additional Health Concerns Assessment Noted Time A fall risk assessment has been complete d for the patient 11/07/2023 4:09 PM EDT documented as of this encounter Care Teams Dockworker Relationship Specialty Start Date End Date Raheem Ambrosio DO [address] [place] [address] PCP - General Family Medicine 11/15/23 Franck Pérez MD [address] [place] [address] Referring Physician Radiation Oncology 01/12/23 Yahir Bowling DO [address] [place] [address] Referring Physician Otolaryngology 01/27/23 documented as of this encounter
--- OUTSIDE RECORDS SUMMARY | 2024-07-04 13:30 | XMS_ITS | Encounter Summary ---
Author Organization [facility] Address [address] [place] [address] Phone Care Team Providers Care Electronic Resources Librarian Name Role Phone Franck Pérez MD Unavailable [phone] Yahir Bowling DO Unavailable [phone] Raheem Ambrosio DO Primary Care Provider [phone] Encounter Details Date Type Department Care Team (Late st Contact Info) Description 12/26/2023 Scanned Document [facility] [address] [place] [address] [place] [address] [place] [address] Social History Tobacco Use Types Packs/Day Years Used Date Smoking Tobacco: Some Days Cigarettes Last attempted to quit: 2022 Smokeless Tobacco: Never Alcohol Use Standard Drinks/Week Comments Not Currently 0 (1 standard drink = 0.6 oz pur e alcohol) [facility] Utilities Answer Date Recorded In the past 12 months has [employer], oil, or water [employer] threatened to shut off services in your [...] any time in the past 12 m [facility], were you homeless or living in a mcc (including now)? No 11/23/2023 Sex and Gender Information Value Date Recorded Sex Assigned at Not on file Legal Sex Male 1:26 AM EST Gender Identity Not on file Sexual Orientation Not on file COVID-19 Exposure Response Date Recorded In the last 10 days, have yo u been in contact with someone who was confirmed or suspected to have Coronavirus/COVID-19? No / Unsure 12/26/2023 9:41 AM EST documented as of this encounter Plan of Treatment Upcoming Encounters Date Type Department Care Team (Late st Contact Info) Description 08/06/2024 11:30 AM EDT Office Visit [facility] [address] [place] [address] [place] [address] [place] [address] 09/17/2024 1:30 PM EDT Office Visit [facility] [address] [facility] [address] [place] [address] Francisco Moore MD 703 [facility] 2, [address] [place], [place] [address] documented as of this encounter Visit Diagnoses Not on filedocumented in this encounter Additional Health Concerns Assessment Noted Time A fall risk assessment has been complete d for the patient 11/07/2023 4:09 PM EDT documented as of this encounter Care Teams Electronic Resources Librarian Relationship Specialty Start Date End Date Raheem Ambrosio DO [address] [place] [address] PCP - General Family Medicine 11/15/23 Franck Pérez MD [address] [place] [address] Referring Physician Radiation Oncology 01/12/23 Yahir Bowling DO [address] [facility] [place] [address] Referring Physician Otolaryngology 01/27/23 documented as of this encounter
--- OUTSIDE RECORDS SUMMARY | 2024-07-04 13:30 | XMS_ITS | Encounter Summary ---
Author Organization [facility] Address [address] [place] [address] Phone Care Team Providers Care Skip Tracer Name Role Phone Generic Provider, No Assigned Pcp MD Primary Car e Provider Unavailable Franck Pérez MD Unavailable [phone] Yahir Bowling DO Unavailable [phone] Raheem Ambrosio DO Primary Care Provider [phone] Encounter Details Date Type Department Care Team (Late st Contact Info) Description 01/30/2023 Scanned Document [facility] [address] [place] [address] [place] [address] [place], [place] [address] Social History Tobacco Use Types Packs/Day Years Used Date Smoking Tobacco: Former Cigarettes Q uit: 2022 Smokeless Tobacco: Never PHQ-2 Answer Date Recorded Patient Health Questionnaire-2 [...] suspected to have Coronavirus/COVID-19? No / Unsure 01/27/2023 10:40 AM EST documented as of this encounter Plan of Treatment Upcoming Encounters Date Type Department Care Team (Late st Contact Info) Description 08/06/2024 11:30 AM EDT Office Visit [facility] [address] [place] [address] [place] [address] [place] [address] 09/17/2024 1:30 PM EDT Office Visit [facility] 703 [facility] [address] [place] [address] Francisco Moore MD 703 [facility] 2, [address] [place] [address] documented as of this encounter Visit Diagnoses Not on filedocumented in this encounter Additional Health Concerns Assessment Noted Time A fall risk assessment has been complete d for the patient 01/27/2023 10:52 AM EST documented as of this encounter Care Teams Skip Tracer Relationship Specialty Start Date End Date Generic Provider, No Assigned Pcp, [place] [address] PCP - General Family Medicine 12/31/22 11/14/23 Raheem Ambrosio DO [address] [place] [address] PCP - General Family Medicine 11/15/23 Franck Pérez MD [address] [place] [address] Referring Physician Radiation Oncology 01/12/23 Yahir Bowling DO [address] [place] [address] Referring Physician Otolaryngology 01/27/23 documented as of this encounter
--- OUTSIDE RECORDS SUMMARY | 2024-07-04 13:30 | XMS_ITS | Encounter Summary ---
Author Organization [facility] Address [address] [place] [address] Phone Care Team Providers Care Bean Picker Name Role Phone Franck Pérez MD Unavailable [phone] Yahir Bowling DO Unavailable [phone] Raheem Ambrosio DO Primary Care Provider [phone] Encounter Details Date Type Department Care Team (Late st Contact Info) Description 02/12/2024 Scanned Document [facility] [address] [place] [address] [place] [address] [place] [address] Social History Tobacco Use Types Packs/Day Years Used Date Smoking Tobacco: Some Days Cigarettes Last attempted to quit: 2022 Smokeless Tobacco: Never Alcohol Use Standard Drinks/Week Comments Not Currently 0 (1 standard drink = 0.6 oz pur e alcohol) [facility] Utilities Answer Date Recorded In the past 12 months has [employer], oil, or water [employer] threatened to shut off services in your [...] any time in the past 12 m [facility], were you homeless or living in a assisted (including now)? No 11/23/2023 Sex and Gender Information Value Date Recorded Sex Assigned at Not on file Legal Sex Male 1:26 AM EST Gender Identity Not on file Sexual Orientation Not on file documented as of this encounter Plan of Treatment Upcoming Encounters Date Type Department Care Team (Late st Contact Info) Description 08/06/2024 11:30 AM EDT Office Visit [facility] [address] [place] [address] [place] [address] [place] [address] 09/17/2024 1:30 PM EDT Office Visit [facility] [address] [facility] [address] [place] [address] Francisco Moore MD 703 [facility] 2, [address] [place] [address] documented as of this encounter Visit Diagnoses Not on filedocumented in this encounter Additional Health Concerns Assessment Noted Time A fall risk assessment has been complete d for the patient 11/07/2023 4:09 PM EDT documented as of this encounter Care Teams Bean Picker Relationship Specialty Start Date End Date Raheem Ambrosio DO [address] [place] [address] PCP - General Family Medicine 11/15/23 Franck Pérez MD [address] [place] [address] Referring Physician Radiation Oncology 01/12/23 Yahir Bowling DO [address] [facility] [place] [address] Referring Physician Otolaryngology 01/27/23 documented as of this encounter
--- OUTSIDE RECORDS SUMMARY | 2024-07-04 13:30 | XMS_ITS | Encounter Summary ---
Author Organization [facility] Address [address] [place] [address] Phone Care Team Providers Care Director Of Automation Name Role Phone Franck Pérez MD Unavailable [phone] Yahir Bowling DO Unavailable [phone] Raheem Ambrosio DO Primary Care Provider [phone] Encounter Details Date Type Department Care Team (Late st Contact Info) Description 11/22/2023 Scanned Document [facility] [address] [place] [address] [place] [address] [place] [address] Social History Tobacco Use Types Packs/Day Years Used Date Smoking Tobacco: Some Days Cigarettes Last attempted to quit: 2022 Smokeless Tobacco: Never Alcohol Use Standard Drinks/Week Comments Not Currently 0 (1 standard drink = 0.6 oz pur e alcohol) [facility] Utilities Answer Date Recorded In the past 12 months has [employer], oil, or water [employer] threatened to shut off services in your [...] any time in the past 12 m [facility], were you homeless or living [...] does not drink 11/22/2023 7:59 PM Mingo Wynn RN Q3: How often do you have [...] 11:15 AM EDT Faina Sharma RN * [place] Suicide Severity Rating Scale (Screener/Recent Self-Report) Question [...] Description 08/06/2024 11:30 AM EDT Office Visit [facility] [address] [place] [address] [place] [address] [place] [address] 09/17/2024 1:30 PM EDT Office Visit [facility] [address] [facility] [address] [place] [address] Francisco Moore MD 703 [facility] 2, [address] [place] [address] documented as of this encounter Visit Diagnoses Not on filedocumented in this encounter Additional Health Concerns Assessment Noted Time A fall risk assessment has been complete d for the patient 11/07/2023 4:09 PM EDT documented as of this encounter Care Teams Director Of Automation Relationship Specialty Start Date End Date Raheem Ambrosio DO [address] [place] [address] PCP - General Family Medicine 11/15/23 Franck Pérez MD [address] [place] [address] Referring Physician Radiation Oncology 01/12/23 Yahir Bowling DO [address] [place] [address] Referring Physician Otolaryngology 01/27/23 documented as of this encounter
--- OUTSIDE RECORDS SUMMARY | 2024-07-04 13:30 | XMS_ITS | Encounter Summary ---
Author Organization [facility] Address [address] [place] [address] Phone Care Team Providers Care Cloth Weigher Name Role Phone Generic Provider, No Assigned Pcp MD Primary Car e Provider Unavailable Franck Pérez MD Unavailable [phone] Yahir Bowling DO Unavailable [phone] Raheem Ambrosio DO Primary Care Provider [phone] Encounter Details Date Type Department Care Team (Late st Contact Info) Description 01/27/2023 Scanned Document [facility] [address] [place] [address] [place] [address] [place], [place] [id number] Social History Tobacco Use Types Packs/Day Years [...] AM EST documented as of this encounter Functional Status * Over the past 2 weeks, how often have you been bothered by any of the following problems? Question Answer Date of Assessment Author Little interest or pleasure in doing things Not at all 01/27/2023 10:52 AM EST Sherri Cifuentes MA Feeling down, depressed, or hopeless Not at all 01/27/2023 10:52 AM EST Sherri Cifuentes MA Patient Health Questionnaire-2 Score 0 01/27/2023 10:52 AM EST Stefany Cifuentes MA documented as of this encounter Plan of Treatment Upcoming Encounters Date Type Department Care Team (Late st Contact Info) Description 08/06/2024 11:30 AM EDT Office Visit [facility] [address] [place] [address] [place] [address] [place] [address] 09/17/2024 1:30 PM EDT Office Visit [facility] 703 [facility] [address] [place] [address] Francisco Moore MD 703 [facility] 2, [address] [place], [place] [address] documented as of this encounter Visit Diagnoses Not on filedocumented in this encounter Additional Health Concerns Assessment Noted Time A fall risk assessment has been complete d for the patient 01/27/2023 10:52 AM EST documented as of this encounter Care Teams Cloth Weigher Relationship Specialty Start Date End Date Generic Provider, No Assigned Pcp, NONE [facility] [place] [address] PCP - General Family Medicine 12/31/22 11/14/23 Raheem Ambrosio DO [address] [place] [address] PCP - General Family Medicine 11/15/23 Franck Pérez MD [address] [place] [address] Referring Physician Radiation Oncology 01/12/23 Yahir Bowling DO [address] [facility] [place] [address] Referring Physician Otolaryngology 01/27/23 documented as of this encounter
--- OUTSIDE RECORDS SUMMARY | 2024-07-04 13:30 | XMS_ITS | Encounter Summary ---
Author Organization [facility] Address [address] [place] [address] Phone Care Team Providers Care Route Service Manager Name Role Phone Generic Provider, No Assigned Pcp MD Primary Car e Provider Unavailable Franck Pérez MD Unavailable [phone] Yahir Bowling DO Unavailable [phone] Raheem Ambrosio DO Primary Care Provider [phone] Encounter Details Date Type Department Care Team (Late st Contact Info) Description 02/04/2023 Lab Requisition [facility] [address] [place] [address] [place] [address] [place] [address] Social History Tobacco Use Types Packs/Day Years [...] 08/06/2024 11:30 AM EDT Office Visit [facility] [address] [facility] [address] [place] [address] [place] [address] [place] [address] 09/17/2024 1:30 PM EDT Office Visit [facility] [address] [facility] [address] [place] [address] Francisco Moore MD [address] [facility] [address] [address], [address] [place] [address] documented as of this encounter Procedures Procedure Name Priority Date/Time Associated Diagnosis Comments SURGICAL PATHOLOGY CONSULT EXTERNAL BLOCKS AND/OR SLIDES Routine 02/04/2023 1:06 PM EST documented in this encounter Results * Surgical Pathology Consult External Block(s) and/or Slide(s) (02/04/2023 1:06 PM EST) Case Report Surgical Pathology Report Case: [id number] Authorizing Provider: Nilson Diaz MD Collected: 02/04/2023 1306 Ordering Location: [facility] Received: 02/04/2023 [facility] Pathologist: Sameera Quintana MD Specimen: OUTSIDE BLOCK(S)/SLIDE(S) , LEFT PAROTID MASS FNA 02/07/2023 4:53 PM EST [facility] FINAL DIAGNOSIS Left parotid mass, 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 Clinical and radiological correlation recommended. 02/07/2023 4:53 PM EST [facility] at 1653 EST 02/07/2023 4:53 PM EST [facility] Gross Description A. OUTSIDE BLOCK(S)/SLIDE(S) . RECEIVED FROM [facility], DEPARTMENT OF PATHOLOGY, [address] [place] [address], (13) THIRTEEN SLIDES LABELED [id number] (02/04/2023 DTD) 02/07/2023 4:53 PM EST [facility] Outside Materials (OUTSIDE BLOCK(S)/SLIDE(S) ) 02/04/2023 1:06 PM EST 02/04/2023 1:06 PM EST us Nilson Diaz MD LAB PATHOLOGY ORDERABLES Final Result [facility] [id number] [place] [address] documented in this encounter Visit Diagnoses Not on filedocumented in this encounter Additional Health Concerns Assessment Noted Time A fall risk assessment has been complete d for the patient 01/27/2023 10:52 AM EST documented as of this encounter Care Teams Route Service Manager Relationship Specialty Start Date End Date Generic Provider, No Assigned [place]cp, [place] [address] PCP - General Family Medicine 12/31/22 11/14/23 Raheem Ambrosio DO [address] [place] [address] PCP - General Family Medicine 11/15/23 Franck Pérez MD [address] [place] [address] Referring Physician Radiation Oncology 01/12/23 Yahir Bowling DO [address] [place] [address] Referring Physician Otolaryngology 01/27/23 documented as of this encounter
== END 2024-07-03 13:01 | disposition home or self-care (01) ==
LOC: WC 07-04 13:26
PROVIDERS: PCP Family Medicine; Visit Provider Physician Assistant
DX: I87.311 Chronic venous hypertension (idiopathic) with ulcer of right lower extremity (principal); L97.811 Non-pressure chronic ulcer of other part of right lower leg limited to breakdown of skin; L97.511 Non-pressure chronic ulcer of other part of right foot limited to breakdown of skin; L89.893 Pressure ulcer of other site, stage 3
CPT/HCPCS: 29580

== ENCOUNTER 2024-07-17 14:12 | Outpatient (OUT) | payer MEDICARE, BC, SELFPAY ==
--- OUTSIDE RECORDS SUMMARY | 2024-07-17 14:14 | XMS_ITS | Encounter Summary ---
Author Organization [facility] Address [address] [place] [address] Phone Care Team Providers Care Cloth Bleaching Range Back Tender Name Role Phone Generic Provider, No Assigned Pcp MD Primary Car e Provider Unavailable Franck Pérez MD Unavailable [phone] Yahir Bowling DO Unavailable Raheem Ambrosio DO Primary Care Provider [phone] Encounter Details Date Type Department Care Team (Late st Contact Info) Description 12/19/2022 Scanned Document [facility] [address] [place] [phone] Scanning, Generic Provider Social History Tobacco Use [...] 08/06/2024 11:30 AM EDT Office Visit [facility] [facility] [address] [place] [address] [place] [address] [place], [place] [address] 09/17/2024 1:30 PM EDT Office Visit [facility] [address]03 [facility] [address] [place] [address] Francisco Moore MD 703 [facility] 2, [address] [place] [address] documented as of this encounter Procedures Procedure [...] on filedocumented in this encounter Care Teams Cloth Bleaching Range Back Tender Relationship Specialty Start Date End Date Generic Provider, No Assigned Pcp, NONE [facility] [place] [address] PCP - General Family Medicine 12/31/22 11/14/23 Raheem Ambrosio DO [address] [place] [address] PCP - General Family Medicine 11/15/23 Franck Pérez MD [address] [facility] [place] [address] Referring Physician Radiation Oncology 01/12/23 Yahir Bowling DO [address] [place] [address] Referring Physician Otolaryngology 01/27/23 documented as of this encounter
--- OUTSIDE RECORDS SUMMARY | 2024-07-17 14:14 | XMS_ITS | Encounter Summary ---
Author Organization [facility] Address [address] [address] Phone Care Team Providers Care Pizza Maker Name Role Phone Generic Provider, No Assigned Pcp MD Primary Car e Provider Unavailable Franck Pérez MD Unavailable [phone] Yahir Bowling DO Unavailable [phone] Raheem Ambrosio DO Primary Care Provider [phone] Encounter Details Date Type Department Care Team (Late st Contact Info) Description 02/04/2023 Lab Requisition [facility] [address] [place] [address] [place] [address] [place] [address] Social History Tobacco Use Types Packs/Day Years [...] 08/06/2024 11:30 AM EDT Office Visit [facility] [address] [facility] [place] [address] [place] [address] [place] [address] 09/17/2024 1:30 PM EDT Office Visit [facility] [address] [facility] [address] [place] [address] Francisco Moore MD [address] [facility] [address], [address] [place] [address] documented as of this encounter Procedures Procedure Name Priority Date/Time Associated Diagnosis Comments SURGICAL PATHOLOGY CONSULT EXTERNAL BLOCKS AND/OR SLIDES Routine 02/04/2023 1:06 PM EST documented in this encounter Results * Surgical Pathology Consult External Block(s) and/or Slide(s) (02/04/2023 1:06 PM EST) Case Report Surgical Pathology Report Case: [id number] Authorizing Provider: Nilson Diaz MD Collected: 02/04/2023 1306 Ordering Location: [facility] Received: 02/04/2023 [facility] Pathologist: Sameera Quintana MD Specimen: OUTSIDE BLOCK(S)/SLIDE(S) , LEFT PAROTID MASS FNA 02/07/2023 4:53 PM EST [facility] FINAL DIAGNOSIS Left parotid mass, 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 Clinical and radiological correlation recommended. 02/07/2023 4:53 PM EST [facility] at 1653 EST 02/07/2023 4:53 PM EST [facility] Gross Description A. OUTSIDE BLOCK(S)/SLIDE(S) . RECEIVED FROM [facility], DEPARTMENT OF PATHOLOGY, [address] [place] [address], (13) THIRTEEN SLIDES LABELED [id number] (02/04/2023 DTD) 02/07/2023 4:53 PM EST [facility] Outside Materials (OUTSIDE BLOCK(S)/SLIDE(S) ) 02/04/2023 1:06 PM EST 02/04/2023 1:06 PM EST us Nilson Diaz MD LAB PATHOLOGY ORDERABLES Final Result [facility] [address] [place] [address] documented in this encounter Visit Diagnoses Not on filedocumented in this encounter Additional Health Concerns Assessment Noted Time A fall risk assessment has been complete d for the patient 01/27/2023 10:52 AM EST documented as of this encounter Care Teams Pizza Maker Relationship Specialty Start Date End Date Generic Provider, No Assigned Pcp, [place] [address] PCP - General Family Medicine 12/31/22 11/14/23 Raheem Ambrosio DO [address] [place] [address] PCP - General Family Medicine 11/15/23 Franck Pérez MD [address] [place] [address] Referring Physician Radiation Oncology 01/12/23 Yahir Bowling DO [address] [place] [address] Referring Physician Otolaryngology 01/27/23 documented as of this encounter
--- OUTSIDE RECORDS SUMMARY | 2024-07-17 14:14 | XMS_ITS | Encounter Summary ---
Author Organization [facility] Address [address] [place] [address] Phone Care Team Providers Care Casket Assembler Name Role Phone Franck Pérez MD Unavailable [phone] Yahir Bowling DO Unavailable [phone] Raheem Ambrosio DO Primary Care Provider [phone] Encounter Details Date Type Department Care Team (Late st Contact Info) Description 11/22/2023 Scanned Document [facility] [address] [place] [address] [place] [address] [place] [address] Social History Tobacco Use Types Packs/Day Years Used Date Smoking Tobacco: Some Days Cigarettes Last attempted to quit: 2022 Smokeless Tobacco: Never Alcohol Use Standard Drinks/Week Comments Not Currently 0 (1 standard drink = 0.6 oz pur e alcohol) [facility] Utilities Answer Date Recorded In the past 12 months has [employer], oil, or water [employer] threatened to shut off services in your [...] any time in the [facility] 12 [facility], [facility] you [facility] or living in a usp (including now)? No 11/23/2023 Sex and Gender [...] of Assessment Author 0 11/22/2023 7:59 PM EDT Mingo Rasmussen RN * Question Answer Date of Assessment Author Q1: How often do you have a drink containing alcohol? Never 11/22/2023 7:59 PM EDT Mingo Snato RN Q2: How many drinks containing alcohol do you have on a typical day when you are drinking? Patient does not drink 11/22/2023 7:59 PM EDT Mingo Santo RN Q3: How often do you have six or more drinks on one occasion? Never 11/22/2023 7:59 PM EDT Mingo Santo RN * Over the past 2 weeks, how often have you been bothered by any of the following problems? Question Answer Date of Assessment Author Patient Health Questionnaire -2 Score 0 11/22/2023 7:59 PM EDT Chuy Santo RN * Calculated C-SSRS Risk Score (Lifetime/Recent) Answer Date of Assessment Author No Risk Indicated 11/22/2023 11:15 AM EDT Faina Sharma RN * [place] Suicide Severity Rating Scale (Screener/Recent Self-Report) Question Answer Date of Assessment Author 1. Wish to be (Past 1 Month) No 024 11:15 AM EDT Faina Sharma RN 2. Non-Specific Active Suici azul Thoughts (Past 1 Month) No 11/22/2023 11:15 AM EDT Sonal Sharma RN 6. Suicidal Behavior (Lifetime) No 11:15 AM EDT Faina Sharma RN * Question Answer Date of Assessment Author Little interest or pleasure in doing things Not at all 11/22/2023 7:59 PM BENSONT Chuy Santo RN Feeling down, depressed, or hopeless Not at all 11/22/2023 7:59 PM EDT Chuy Santo RN documented as of this encounter Plan of Treatment Upcoming Encounters Date Type Department Care Team (Late st Contact Info) Description 08/06/2024 11:30 AM EDT Office Visit [facility] [address] [place] [address] [place] [address] [place] [address] 09/17/2024 1:30 PM EDT Office Visit [facility] [address] [facility] [address] [place] [address] Francisco Moore MD [address] [facility], [address] [place], [place] [phone] documented as of this encounter Visit Diagnoses Not on filedocumented in this encounter Additional Health Concerns Assessment Noted Time A fall risk assessment has been complete d for the patient 11/07/2023 4:09 PM EDT documented as of this encounter Care Teams Casket Assembler Relationship Specialty Start Date End Date Raheem Ambrosio DO [address] [place] [address] PCP - General Family Medicine 11/15/23 Franck Pérez MD [address] [place] [address] Referring Physician Radiation Oncology 01/12/23 Yahir Bowling DO [address] [facility] [place] [address] Referring Physician Otolaryngology 01/27/23 documented as of this encounter
--- OUTSIDE RECORDS SUMMARY | 2024-07-17 14:14 | XMS_ITS | Encounter Summary ---
Author Organization [facility] Address [address] [place] [address] Phone Care Team Providers Care Sueding Machine Operator Name Role Phone Franck Pérez MD Unavailable [phone] Yahir Bowling DO Unavailable [phone] Raheem Ambrosio DO Primary Care Provider [phone] Encounter Details Date Type Department Care Team (Late st Contact Info) Description 11/22/2023 Scanned Document [facility] [address] [place] [address] [place] [address] [place] [address] Social History Tobacco Use Types Packs/Day Years Used Date Smoking Tobacco: Some Days Cigarettes Last attempted to quit: 2022 Smokeless Tobacco: Never Alcohol Use Standard Drinks/Week Comments Not Currently 0 (1 standard drink = 0.6 oz pur e alcohol) [facility] Utilities Answer Date Recorded In the past 12 months has [employer], oil, or water [employer] threatened to shut off services in your [...] any time in the past 12 [facility], were you homeless or living in a care home (including now)? No 11/23/2023 Sex and [...] alcohol? Never 11/22/2023 7:59 PM EDT Mingo Santo RN Q2: How many drinks containing alcohol [...] 11:15 AM EDT Faina Sharma RN * [place] Suicide Severity Rating Scale (Screener/Recent Self-Report) Question [...] Description 08/06/2024 11:30 AM EDT Office Visit [facility] [address] [place] [address] [place] [address] [place] [address] 09/17/2024 1:30 PM EDT Office Visit [facility] [address] [facility] [address] [place] [address] Francisco Moore MD 703 [facility] 2, [address] [place], [place] [address] documented as of this encounter Visit Diagnoses Not on filedocumented in this encounter Additional Health Concerns Assessment Noted Time A fall risk assessment has been complete d for the patient 11/07/2023 4:09 PM EDT documented as of this encounter Care Teams Sueding Machine Operator Relationship Specialty Start Date End Date Raheem Ambrosio DO [address] [place] [address] PCP - General Family Medicine 11/15/23 Franck Pérez MD [address] [place] [address] Referring Physician Radiation Oncology 01/12/23 Yahir Bowling DO [address] [facility] [place] [address] Referring Physician Otolaryngology 01/27/23 documented as of this encounter
--- OUTSIDE RECORDS SUMMARY | 2024-07-17 14:14 | XMS_ITS | Encounter Summary ---
Author Organization [facility] Address [address] [place] [address] Phone Care Team Providers Care Transfer Professor Name Role Phone Franck Pérez MD Unavailable [phone] Yahir Bowling DO Unavailable [phone] Raheem Ambrosio DO Primary Care Provider [phone] Encounter Details Date Type Department Care Team (Late st Contact Info) Description 12/26/2023 Scanned Document [facility] [address] [place] [address] [place] [address] [place] [address] Social History Tobacco Use Types Packs/Day Years Used Date Smoking Tobacco: Some Days Cigarettes Last attempted to quit: 2022 Smokeless Tobacco: Never Alcohol Use Standard Drinks/Week Comments Not Currently 0 (1 standard drink = 0.6 oz pur e alcohol) [facility] Utilities Answer Date Recorded In the past 12 months has [employer], oil, or water [employer] threatened to shut off services in your [...] any time in the past 12 m [facility], were you homeless or [...] 08/06/2024 11:30 AM EDT Office Visit [facility] [address] [place] [address] [place] [address] [place] [address] 09/17/2024 1:30 PM EDT Office Visit [facility] [address] [facility] [address] [place] [address] Francisco Moore MD 703 [facility] 2, [address] [place], [place] [address] documented as of this encounter Visit Diagnoses Not on filedocumented in this encounter Additional Health Concerns Assessment Noted Time A fall risk assessment has been complete d for the patient 11/07/2023 4:09 PM EDT documented as of this encounter Care Teams Transfer Professor Relationship Specialty Start Date End Date Raheem Ambrosio DO [address] [place] [address] PCP - General Family Medicine 11/15/23 Franck Pérez MD [address] [place] [address] Referring Physician Radiation Oncology 01/12/23 Yahir Bowling DO [address] [facility] [place] [address] Referring Physician Otolaryngology 01/27/23 documented as of this encounter
--- OUTSIDE RECORDS SUMMARY | 2024-07-17 14:14 | XMS_ITS | Encounter Summary ---
Author Organization [facility] Address [address] [place] [address] Phone Care Team Providers Care Information Technology Internship Name Role Phone Generic Provider, No Assigned Pcp MD Primary Car e Provider Unavailable Franck Pérez MD Unavailable [phone] Yahir Bowling DO Unavailable [phone] Raheem Ambrosio DO Primary Care Provider [phone] Encounter Details Date Type Department Care Team (Late st Contact Info) Description 12/22/2022 Scanned Document [facility] [address] [place] [address] Scanning, Generic Provider Social History Tobacco Use [...] 08/06/2024 11:30 AM EDT Office Visit [facility] [address] [facility] [address] [place] [address] [place] [address] [place], [place] [address] 09/17/2024 1:30 PM EDT Office Visit [facility] [address] [facility] [address] [place] [address] Francisco Moore MD 703 [facility] 2, [address] [place] [address] documented as of this encounter Visit Diagnoses Not on filedocumented in this encounter Care Teams Information Technology Internship Relationship Specialty Start Date End Date Generic Provider, No Assigned Pcp, [place] [address] PCP - General Family Medicine 12/31/22 11/14/23 Raheem Ambrosio DO [address] [place] [address] PCP - General Family Medicine 11/15/23 Franck Pérez MD [address] [place] [address] Referring Physician Radiation Oncology 01/12/23 Yahir Bowling DO [address] [place] [address] Referring Physician Otolaryngology 01/27/23 documented as of this encounter
--- OUTSIDE RECORDS SUMMARY | 2024-07-17 14:14 | XMS_ITS | Encounter Summary ---
Author Organization [facility] Address [address] [place] [address] Phone Care Team Providers Care Infrastructure Consultant Name Role Phone Generic Provider, No Assigned Pcp MD Primary Car e Provider Unavailable Franck Pérez MD Unavailable Yahir Bowling DO Unavailable [phone] Raheem Ambrosio DO Primary Care Provider Encounter Details Date Type Department Care Team (Late st Contact Info) Description 12/21/2022 Scanned Document [facility] [address] [place] [address] Scanning, Generic Provider Social History Tobacco Use [...] Description 08/06/2024 11:30 AM EDT Office Visit [facility] [address] [facility] [address] [place] [address] [place] [address] [place], [place] [address] 09/17/2024 1:30 PM EDT Office Visit [facility] 7[address] [facility] [address] [place] [address] Francisco Moore MD 703 [facility] 2, [address] [place] [address] documented as of this encounter Visit Diagnoses Not on filedocumented in this encounter Care Teams Infrastructure Consultant Relationship Specialty Start Date End Date Generic Provider, No Assigned Pcp, [place] [address] PCP - General Family Medicine 12/31/22 11/14/23 Raheem Ambrosio DO [address] [place] [address] PCP - General Family Medicine 11/15/23 Franck Pérez MD 701 [place] [address] Referring Physician Radiation Oncology 01/12/23 Yahir Bowling DO [address] [place] [address] Referring Physician Otolaryngology 01/27/23 documented as of this encounter
--- OUTSIDE RECORDS SUMMARY | 2024-07-17 14:14 | XMS_ITS | Encounter Summary ---
Author Organization [facility] Address [address] [place] [address] Phone Care Team Providers Care Jewel Blocker And Sawyer Name Role Phone Generic Provider, No Assigned Pcp MD Primary Car e Provider Unavailable Franck Pérez MD Unavailable [phone] Yahir Bowling DO Unavailable [phone] Raheem Ambrosio DO Primary Care Provider Encounter Details Date Type Department Care Team (Late st Contact Info) Description 01/30/2023 Scanned Document [facility] [address] [place] [address] [place] [address] [place], [place] [phone] Social History Tobacco Use Types Packs/Day Years [...] Description 08/06/2024 11:30 AM EDT Office Visit [facility] [address] [place] [address] [place] [address] [place] [address] 09/17/2024 1:30 PM EDT Office Visit [facility] 703 [facility] [address] [place] [address] Francisco Moore MD 703 [facility] 2, [address] [place] [address] documented as of this encounter Visit Diagnoses Not on filedocumented in this encounter Additional Health Concerns Assessment Noted Time A fall risk assessment has been complete d for the patient 01/27/2023 10:52 AM EST documented as of this encounter Care Teams Jewel Blocker And Sawyer Relationship Specialty Start Date End Date Generic Provider, No Assigned Pcp, [place] [address] PCP - General Family Medicine 12/31/22 11/14/23 Raheem Ambrosio DO [address] [place] [address] PCP - General Family Medicine 11/15/23 Franck Pérez MD 701 [place] [address] Referring Physician Radiation Oncology 01/12/23 Yahir Bowling DO [address] [place] [address] Referring Physician Otolaryngology 01/27/23 documented as of this encounter
--- OUTSIDE RECORDS SUMMARY | 2024-07-17 14:14 | XMS_ITS | Encounter Summary ---
Author Organization [facility] Address [address] [place] [address] Phone Care Team Providers Care Lead Pressman Name Role Phone Generic Provider, No Assigned Pcp MD Primary Car e Provider Unavailable Franck Pérez MD Unavailable [phone] Yahir Bowling DO Unavailable Raheem Ambrosio DO Primary Care Provider [phone] Encounter Details Date Type Department Care Team (Late st Contact Info) Description 01/04/2023 Scanned Document [facility] [address] [place] [address] [place] [address] [place], [place] [phone] Social History Tobacco Use Types Packs/Day Years [...] Description 08/06/2024 11:30 AM EDT Office Visit [facility] [address] [place] [address] [place] [address] [place], [place] [address] 09/17/2024 1:30 PM EDT Office Visit [facility] [address] [place] [address] Francisco Moore MD 703 [facility] 2, [address] [place] [address] documented as of this encounter Visit Diagnoses Not on filedocumented in this encounter Care Teams Lead Pressman Relationship Specialty Start Date End Date Generic Provider, No Assigned Pcp, [place] [address] PCP - General Family Medicine 12/31/22 11/14/23 Raheem Ambrosio DO [address] [place] [address] PCP - General Family Medicine 11/15/23 Franck Pérez MD [address] [place] [address] Referring Physician Radiation Oncology 01/12/23 Yahir Bowling DO [address] [place] [address] Referring Physician Otolaryngology 01/27/23 documented as of this encounter
--- OUTSIDE RECORDS SUMMARY | 2024-07-17 14:14 | XMS_ITS | Encounter Summary ---
Author Organization [facility] Address [address] [place] [address] Phone Care Team Providers Care Tactical Intelligence Officer Name Role Phone Generic Provider, No Assigned Pcp MD Primary Car e Provider Unavailable Franck Pérez MD Unavailable [phone] Yahir Bowling DO Unavailable [phone] Raheem Ambrosio DO Primary Care Provider [phone] Encounter Details Date Type Department Care Team (Late st Contact Info) Description 05/02/2023 Scanned Document [facility] [address] [place] [address] Scanning, Generic Provider Social History Tobacco Use [...] Description 08/06/2024 11:30 AM EDT Office Visit [place] [address] [place] [address] [place] [address] [place] [address] [place] [address] 09/17/2024 1:30 PM EDT Office Visit [facility] [facility] [address] [place] [address] Francisco Moore MD 7[address] [facility] 2, [address] [place] [address] documented as of this encounter Visit Diagnoses Not on filedocumented in this encounter Additional Health Concerns Assessment Noted Time A fall risk assessment has been complete d for the patient 01/27/2023 10:52 AM EST documented as of this encounter Care Teams Tactical Intelligence Officer Relationship Specialty Start Date End Date Generic Provider, No Assigned Pcp, [place] [address] PCP - General Family Medicine 12/31/22 11/14/23 Raheem Ambrosio DO [address] [place] [address] PCP - General Family Medicine 11/15/23 Franck Pérez MD [address] [place] [address] Referring Physician Radiation Oncology 01/12/23 Yahir Bowling DO [address] [place] [address] Referring Physician Otolaryngology 01/27/23 documented as of this encounter
--- OUTSIDE RECORDS SUMMARY | 2024-07-17 14:14 | XMS_ITS | Encounter Summary ---
Author Organization [facility] Address [address] [place] [address] Phone Care Team Providers Care Business Process Manager Name Role Phone Franck Pérez MD Unavailable [phone] Yahir Bowling DO Unavailable [phone] Raheem Ambrosio DO Primary Care Provider Encounter Details Date Type Department Care Team (Late st Contact Info) Description 02/12/2024 Scanned Document [facility] [address] [place] [address] [place] [address] [place] [address] Social History Tobacco Use Types Packs/Day Years Used Date Smoking Tobacco: Some Days Cigarettes Last attempted to quit: 2022 Smokeless Tobacco: Never Alcohol Use Standard Drinks/Week Comments Not Currently 0 (1 standard drink = 0.6 oz pur e alcohol) [facility] Utilities Answer Date Recorded In the past 12 months has [employer], oil, or water [employer] threatened to shut off services in your [...] any time in the past [address] [facility], were you homeless or living in a senior living (including now)? No 11/23/2023 Sex and Gender Information Value Date Recorded Sex Assigned at Not on file Legal Sex Male 1:26 AM EST Gender Identity Not on file Sexual Orientation Not on file documented as of this encounter Plan of Treatment Upcoming Encounters Date Type Department Care Team (Late st Contact Info) Description 08/06/2024 11:30 AM EDT Office Visit [facility] [address] [place] [address] [place] [address] [place] [address] 09/17/2024 1:30 PM EDT Office Visit [facility] 703 [facility] [address] [place] [address] Francisco Moore MD 703 [facility] 2, [address] [place] [address] documented as of this encounter Visit Diagnoses Not on filedocumented in this encounter Additional Health Concerns Assessment Noted Time A fall risk assessment has been complete d for the patient 11/07/2023 4:09 PM EDT documented as of this encounter Care Teams Business Process Manager Relationship Specialty Start Date End Date Raheem Ambrosio DO [address] [place] [address] PCP - General Family Medicine 11/15/23 Franck Pérez MD [address] [place] [address] Referring Physician Radiation Oncology 01/12/23 Yahir Bowling DO [address] [facility] [place] [address] Referring Physician Otolaryngology 01/27/23 documented as of this encounter
--- OUTSIDE RECORDS SUMMARY | 2024-07-17 14:14 | XMS_ITS | Patient Health Record ---
Author Organization [facility] [place] Address [address] [place] [address] Care Team Providers Care Day Treatment Clinician/Art Therapist Name Role Phone Jozef Franklin DO Primary Care Provider Unavail able Reason For Referral No Information Medications Medication SIG (Take, Route, Frequency, Duration) Notes Start Date End Date Status Toprol XL 100 mg 1 tablet, extended release DAILY Active Vicodin 500 mg-5 mg tablet Active Crutch Set Size to Fit --- As Ordered Per doctors instructions 04/29/2005 Active Medrol (Liban) 4 mg *SEE INSTRUCTIONS tablet 05/27/2005 Active Percocet 325 mg-5 mg 1 tablet Q4-6H 05/27/2005 Active Problems Problem Type SNOMED Code ICD Code Onset Dates Problem Status W/U Status Risk Notes Problem Chronic ulcer of lower extremity (47965226) Non-pressure chronic ulcer of other part of right lower leg limited to breakdown of skin (L97.811) Active confirmed Problem 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) Active confirmed Problem Stasis dermatitis co-occurrent with 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 (075078867982714 ) Idiopathic chronic venous hypertension of right lower extremity with ulcer (I87.311) Active confirmed Problem Decubitus ulcer of right foot, stage 3 (L89.893) Active confirmed Problem Ulcer of right foot (disorder) (652676827) Chronic ulcer of right foot limited to breakdown of skin (L97.511) Active confirmed Plan Of Treatment No Information Insurance Providers Payer Name Payer Address Payer Phone Subscriber Number Group Number Insured Name Patient Relationship to Insured Coverage Start Date Coverage End Date [employer] MED[employer]ARE ADV PLAN [address] [place] [address] [id number] Bruce Maldonado Self - patient is the insured
--- OUTSIDE RECORDS SUMMARY | 2024-07-17 14:14 | XMS_ITS | Encounter Summary ---
Author Organization [facility] Address [address] [place] [address] Phone Care Team Providers Care Corrective Therapy Aide Teacher Name Role Phone Generic Provider, No Assigned Pcp MD Primary Car e Provider Unavailable Franck Pérez MD Unavailable [phone] Yahir Bowling DO Unavailable [phone] Raheem Ambrosio DO Primary Care Provider [phone] Encounter Details Date Type Department Care Team (Late st Contact Info) Description 01/27/2023 Scanned Document [facility] [address] [place] [address] [place] [address] [place], [place] [id number] Social History Tobacco Use Types Packs/Day Years [...] Description 08/06/2024 11:30 AM EDT Office Visit [facility] [address] [place] [address] [place] [address] [place] [address] 09/17/2024 1:30 PM EDT Office Visit [facility] 703 [facility] [address] [place] [address] Francisco Moore MD 703 [facility] 2, [address] [place], [place] [address] documented as of this encounter Visit Diagnoses Not on filedocumented in this encounter Additional Health Concerns Assessment Noted Time A fall risk assessment has been complete d for the patient 01/27/2023 10:52 AM EST documented as of this encounter Care Teams Corrective Therapy Aide Teacher Relationship Specialty Start Date End Date Generic Provider, No Assigned Pcp, NONE [facility] [place] [address] PCP - General Family Medicine 12/31/22 11/14/23 Raheem Ambrosio DO [address] [place] [address] PCP - General Family Medicine 11/15/23 Franck Pérez MD [address] [place] [address] Referring Physician Radiation Oncology 01/12/23 Yahir Bowling DO [address] [facility] [place] [address] Referring Physician Otolaryngology 01/27/23 documented as of this encounter
--- OUTSIDE RECORDS SUMMARY | 2024-07-17 14:14 | XMS_ITS | Encounter Summary ---
Author Organization [facility] Address [address] [place] [address] Phone Care Team Providers Care Basic Sciences Dean Name Role Phone Generic Provider, No Assigned Pcp MD Primary Car e Provider Unavailable Franck Pérez MD Unavailable Yahir Bowling DO Unavailable [phone] Raheem Ambrosio DO Primary Care Provider [phone] Encounter Details Date Type Department Care Team (Late st Contact Info) Description 04/27/2023 Scanned Document [facility] [address] [place] [address] Scanning, Generic Provider Social History Tobacco Use [...] Description 08/06/2024 11:30 AM EDT Office Visit [place] [address] [place] [address] [place] [address] [place] [address] [place] [address] 09/17/2024 1:30 PM EDT Office [facility] 703 [facility] [address] [place] [address] Francisco Moore MD 703 [facility] 2, [address] [place] [address] documented as of this encounter Procedures Procedure [...] documented as of this encounter Care Teams Basic Sciences Dean Relationship Specialty Start Date End Date Generic Provider, No Assigned Pcp, [place] [address] PCP - General Family Medicine 12/31/22 11/14/23 Raheem Ambrosio DO [address] [place] [address] PCP - General Family Medicine 11/15/23 Franck Pérez MD [address] [place] [address] Referring Physician Radiation Oncology 01/12/23 Yahir Bowling DO [address] [place] [address] Referring Physician Otolaryngology 01/27/23 documented as of this encounter
--- OUTSIDE RECORDS SUMMARY | 2024-07-17 14:14 | XMS_ITS | Encounter Summary ---
Author Organization [facility] Address [address] [place] [address] Phone Care Team Providers Care Customer Advisor Specialist Name Role Phone Generic Provider, No Assigned Pcp MD Primary Car e Provider Unavailable Franck Pérez MD Unavailable [phone] Yahir Bowling DO Unavailable Raheem Ambrosio DO Primary Care Provider [phone] Encounter Details Date Type Department Care Team (Late st Contact Info) Description 12/23/2022 Scanned Document [address] [place] [address] Scanning, Generic Provider Social History Tobacco Use [...] 08/06/2024 11:30 AM EDT Office Visit [facility] [address] [facility] [address] [place] [address] [place] [address] [place], [place] [address] 09/17/2024 1:30 PM EDT Office [facility] 703 [facility] [address] [place] [address] Francisco Moore MD 703 [facility] 2, [address] [place] [address] documented as of this encounter Visit Diagnoses Not on filedocumented in this encounter Care Teams Customer Advisor Specialist Relationship Specialty Start Date End Date Generic Provider, No Assigned [place], [place] [address] PCP - General Family Medicine 12/31/22 11/14/23 Raheem Ambrosio DO [address] [place] [address] PCP - General Family Medicine 11/15/23 Franck Pérez MD [address] [place] [address] Referring Physician Radiation Oncology 01/12/23 Yahir Bowling DO [address] [place] [address] Referring Physician Otolaryngology 01/27/23 documented as of this encounter
== END 2024-07-17 14:13 | disposition home or self-care (01) ==
LOC: WC 14:12
PROVIDERS: PCP Family Medicine; Visit Provider Podiatrist Foot & Ankle Surgery
DX: I87.311 Chronic venous hypertension (idiopathic) with ulcer of right lower extremity (principal); L97.811 Non-pressure chronic ulcer of other part of right lower leg limited to breakdown of skin; L97.511 Non-pressure chronic ulcer of other part of right foot limited to breakdown of skin; L97.311 Non-pressure chronic ulcer of right ankle limited to breakdown of skin
CPT/HCPCS: 29580

== ENCOUNTER 2024-08-15 13:12 | Outpatient (OUT) | payer MEDICARE, BC, SELFPAY ==
--- OUTSIDE RECORDS SUMMARY | 2024-08-06 11:30 | XMS_ITS | Encounter Summary ---
Author Organization [facility] Address [address] 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 No 11/23/2023 Sex and Gender Information Value Date Recorded Sex Assigned at Not on file Legal Sex Male 1:26 AM EST Gender Identity Not on file Sexual Orientation Not on file documented as of this encounter Progress Notes * Nilson Diaz MD - 08/06/2024 11:30 AM EDT History of Present Illness Bruce Maldonado was seen in January 2023 at the request of his radiation oncologist. He was found to have a left parotid mass. A biopsy was done in November 2022. It was suspicious for malignancy. The patient really did not seem to have any discomfort related to this mass. 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 A PET scan was done in January 2024. I personally reviewed that scan and we cannot appreciate any uptake anywhere else in the body or in the neck. He does not seem to have any complaints related to the head and neck. Physical Exam Palpation of the parotid and neck is negative. I cannot appreciate any underlying masses. He does have some numbness above the surgical site which is to be expected. His facial nerve function is normal. The ear examination is negative. 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 The PET scan did not reveal any other lesion in the body. It was elected not to give him postoperative radiation. There is no evidence of any tumor recurrence. I will see him in 4 months. documented in this encounter Plan of Treatment Upcoming Encounters Date Type Department Care Team (Late st Contact Info) Description 09/17/2024 1:30 PM EDT Office Visit [facility] 703 [facility] [address] [place] [address] Francisco Moore MD 703 [facility] 2, [address] [place], [place] [address] 12/10/2024 12:00 PM EDT Office Visit [facility] [address] [facility] [address] [place] [address] [place] [address] [place] [address] documented as of this encounter Visit Diagnoses Diagnosis Malignant neoplasm of parotid gland (Multi)- Primary Malignant neoplasm of parotid gland documented in this encounter Additional Health Concerns Assessment Noted Time A fall risk assessment has been complete d for the patient 11/07/2023 4:09 PM EDT documented as of this encounter Care Teams Maintainer Central Office Relationship Specialty Start Date End Date Raheem Ambrosio DO [address] [place] [address] PCP - General Family Medicine 11/15/23 Franck Pérez MD [address] [place] [address] Referring Physician Radiation Oncology 01/12/23 Yahir Bowling DO [address] [place] [address] Referring Physician Otolaryngology 01/27/23 documented as of this encounter
--- OUTSIDE RECORDS SUMMARY | 2024-08-15 13:14 | XMS_ITS | Encounter Summary ---
Author Organization [facility] Address [address] [place] [address] Phone Care Team Providers Care Biofuels Production Associate Name Role Phone Franck Pérez MD Unavailable [phone] Yahir Bowling DO Unavailable [phone] Raheem Ambrosio DO Primary Care Provider [phone] Encounter Details Date Type Department Care Team (Late st Contact Info) Description 12/26/2023 Scanned Document [facility] [address] [place] [address] [place] [address] [place] [address] Social History Tobacco Use Types Packs/Day Years Used Date Smoking Tobacco: Some Days Cigarettes Last attempted to quit: 2022 Smokeless Tobacco: Never Alcohol Use Standard Drinks/Week Comments Not Currently 0 (1 standard drink = 0.6 oz pur e alcohol) [facility] Utilities Answer Date Recorded In the past 12 months has [place], oil, or water [employer] threatened to shut off services in your [...] any time in the past 12 m [facility], were you homeless or living in [...] Description 09/17/2024 1:30 PM EDT Office Visit [facility] 703 [facility] [address] [place] [address] Francisco Moore MD 703 [facility] 2, [address] [place] [address] 12/10/2024 12:00 PM EDT Office Visit [facility] [address] [place] [address] [place] [address] [place], [place] [address] documented as of this encounter Visit Diagnoses Not on filedocumented in this encounter Additional Health Concerns Assessment Noted Time A fall risk assessment has been complete d for the patient 11/07/2023 4:09 PM EDT documented as of this encounter Care Teams Biofuels Production Associate Relationship Specialty Start Date End Date Raheem Ambrosio DO [address] [place] [address] PCP - General Family Medicine 11/15/23 Franck Pérez MD 701 [place] [address] Referring Physician Radiation Oncology 01/12/23 Yahir Bowling DO [address] [place] [address] Referring Physician Otolaryngology 01/27/23 documented as of this encounter
--- OUTSIDE RECORDS SUMMARY | 2024-08-15 13:14 | XMS_ITS | Encounter Summary ---
Author Organization [facility] Address [address] [place] [address] Phone Care Team Providers Care Monorail Helper Name Role Phone Generic Provider, No Assigned Pcp MD Primary Car e Provider Unavailable Franck Pérez MD Unavailable [phone] Yahir Bowling DO Unavailable [phone] Raheem Ambrosio DO Primary Care Provider [phone] Encounter Details Date Type Department Care Team (Late st Contact Info) Description 04/27/2023 Scanned Document [facility] [address] [place] [address] Scanning, Generic Provider Social History Tobacco Use [...] Description 09/17/2024 1:30 PM EDT Office Visit [facility] 703 [facility] [address] [place] [address] Francisco Moore MD 703 [facility] 2, [address] [place], [place] [address] 12/10/2024 12:00 PM EDT Office Visit [facility] [address] [place] [address] [place] [address] [place] [address] documented as of this encounter Procedures Procedure Name Priority Date/Time Associated Diagnosis Comments OUTSIDE IMAGING SCAN 04/27/2023 documented in this encounter Results * OUTSIDE IMAGING SCAN (04/27/2023) Anatomical Region Laterality Modality Other Narrative 04/27/2023 Ordered by an unspecified provider. us Generic Provider Scanning OUTSIDE SCAN Final Result documented in this encounter Visit Diagnoses Not on filedocumented in this encounter Additional Health Concerns Assessment Noted Time A fall risk assessment has been complete d for the patient 01/27/2023 10:52 AM EST documented as of this encounter Care Teams Monorail Helper Relationship Specialty Start Date End Date Generic Provider, No [place] [address] PCP - General Family Medicine 12/31/22 11/14/23 Raheem Ambrosio DO [address] [place] [address] PCP - General Family Medicine 11/15/23 Franck Pérez MD [address] [place] [address] Referring Physician Radiation Oncology 01/12/23 Yahir Bowling DO [address] [place] [address] Referring Physician Otolaryngology 01/27/23 documented as of this encounter
--- OUTSIDE RECORDS SUMMARY | 2024-08-15 13:14 | XMS_ITS | Encounter Summary ---
Author Organization [facility] Address [address] [place] [address] Phone Care Team Providers Care Fire Fighting Equipment Specialist Name Role Phone Generic Provider, No Assigned Pcp MD Primary Car e Provider Unavailable Franck Pérez MD Unavailable [phone] Yahir Bowling DO Unavailable [phone] Raheem Ambrosio DO Primary Care Provider [phone] Encounter Details Date Type Department Care Team (Late st Contact Info) Description 02/04/2023 Lab Requisition [facility] [address] [place] [address] [place] [address] [place] [address] Social History Tobacco Use Types Packs/Day Years [...] Description 09/17/2024 1:30 PM EDT Office Visit [facility] [address] [address] Francisco Moore MD [address] [place] [address] 12/10/2024 12:00 PM EDT Office Visit [facility] [address] [place] [address] [place] [address] [place] [address] documented as of this encounter Procedures Procedure Name Priority Date/Time Associated Diagnosis Comments SURGICAL PATHOLOGY CONSULT EXTERNAL BLOCKS AND/OR SLIDES Routine 02/04/2023 1:06 PM EST documented in this encounter Results * Surgical Pathology Consult External Block(s) and/or Slide(s) (02/04/2023 1:06 PM EST) Case Report Surgical Pathology Report Case: [id number] Authorizing Provider: Nilson Diaz MD Collected: 02/04/2023 1306 Ordering Location: [facility] Received: 02/04/2023 [facility] Pathologist: Sameera Quintana MD Specimen: OUTSIDE BLOCK(S)/SLIDE(S) , LEFT PAROTID MASS FNA 02/07/2023 4:53 PM EST [facility] FINAL DIAGNOSIS Left parotid mass, 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 Clinical and radiological correlation recommended. 02/07/2023 4:53 PM EST [facility] at 1653 EST 02/07/2023 4:53 PM EST [facility] Gross Description A. OUTSIDE BLOCK(S)/SLIDE(S) . RECEIVED FROM [facility], DEPARTMENT OF PATHOLOGY, [address] [place] [address], (13) THIRTEEN SLIDES LABELED [id number] (02/04/2023 DTD) 02/07/2023 4:53 PM EST [facility] Outside Materials (OUTSIDE BLOCK(S)/SLIDE(S) ) 02/04/2023 1:06 PM EST 02/04/2023 1:06 PM EST us Nilson Diaz MD LAB PATHOLOGY ORDERABLES Final Result [facility] [address] [facility][Note 3] [address] [place] [address] documented in this encounter Visit Diagnoses Not on filedocumented in this encounter Additional Health Concerns Assessment Noted Time A fall risk assessment has been complete d for the patient 01/27/2023 10:52 AM EST documented as of this encounter Care Teams Fire Fighting Equipment Specialist Relationship Specialty Start Date End Date Generic Provider, No [place] [address] PCP - General Family Medicine 12/31/22 11/14/23 Raheem Ambrosio DO [address] [place] [address] PCP - General Family Medicine 11/15/23 Franck Pérez MD 701 [place] [address] Referring Physician Radiation Oncology 01/12/23 Yahir Bowling DO [address] [place] [address] Referring Physician Otolaryngology 01/27/23 documented as of this encounter
--- OUTSIDE RECORDS SUMMARY | 2024-08-15 13:14 | XMS_ITS | Encounter Summary ---
Author Organization [facility] Address [address] [place] [address] Phone Care Team Providers Care Advertising Account Executive Name Role Phone Generic Provider, No Assigned Pcp MD Primary Car e Provider Unavailable Franck Pérez MD Unavailable [phone] Yahir Bowling DO Unavailable [phone] Raheem Ambrosio DO Primary Care Provider Encounter Details Date Type Department Care Team (Late st Contact Info) Description 12/21/2022 Scanned Document [facility] [address] [place] [address] Scanning, Generic Provider Social History Tobacco Use [...] Description 09/17/2024 1:30 PM EDT Office Visit [facility] [address] [facility] [address] [place] [address] Francisco Moore MD 7[address] [facility] 2, [address] [place] [address] 12/10/2024 12:00 PM EDT Office Visit [facility] [address] [place] [address] [place] [address] [place] [address] documented as of this encounter Visit Diagnoses Not on filedocumented in this encounter Care Teams Advertising Account Executive Relationship Specialty Start Date End Date Generic Provider, No Assigned PcpMD NONE [facility] [address] PCP - General Family Medicine 12/31/22 11/14/23 Raheem Ambrosio DO [address] [place] [address] PCP - General Family Medicine 11/15/23 Franck Pérez MD 701 [place] [address] Referring Physician Radiation Oncology 01/12/23 Yahir Bowling DO [address] [place] [address] Referring Physician Otolaryngology 01/27/23 documented as of this encounter
--- OUTSIDE RECORDS SUMMARY | 2024-08-15 13:14 | XMS_ITS | Encounter Summary ---
Author Organization [facility] Address [address] [place] [address] Phone Care Team Providers Care Radio Repairman Name Role Phone Generic Provider, No Assigned Pcp MD Primary Car e Provider Unavailable Franck Pérez MD Unavailable [phone] Yahir Bowling DO Unavailable Raheem Ambrosio DO Primary Care Provider [phone] Encounter Details Date Type Department Care Team (Late st Contact Info) Description 01/30/2023 Scanned Document [facility] [address] [facility] [address] [place] [address] [place] [address] [place] [address] Social History Tobacco Use Types Packs/Day Years [...] PM EDT Office Visit [facility] 703 [facility] 250 [place] [address] Francisco Moore MD 703 [facility] 2, [address] [place], [place] [address] 12/10/2024 12:00 PM EDT Office Visit [facility] [address] [place] [address] [place] [address] [place] [address] documented as of this encounter Visit Diagnoses Not on filedocumented in this encounter Additional Health Concerns Assessment Noted Time A fall risk assessment has been complete d for the patient 01/27/2023 10:52 AM EST documented as of this encounter Care Teams Radio Repairman Relationship Specialty Start Date End Date Generic Provider, No [place] [address] PCP - General Family Medicine 12/31/22 11/14/23 Raheem Ambrosio DO [address] [place] [address] PCP - General Family Medicine 11/15/23 Franck Pérez MD 701 [place] [address] Referring Physician Radiation Oncology 01/12/23 Yahir Bowling DO [address] [place] [address] Referring Physician Otolaryngology 01/27/23 documented as of this encounter
--- OUTSIDE RECORDS SUMMARY | 2024-08-15 13:14 | XMS_ITS | Encounter Summary ---
Author Organization [facility] Address [address] [place] [address] Phone Care Team Providers Care Swim Coach Name Role Phone Generic Provider, No Assigned Pcp MD Primary Car e Provider Unavailable Franck Pérez MD Unavailable [phone] Yahir Bowling DO Unavailable [phone] Raheem Ambrosio DO Primary Care Provider [phone] Encounter Details Date Type Department Care Team (Late st Contact Info) Description 12/22/2022 Scanned Document [facility] [address] [place] [phone] Scanning, Generic Provider Social History Tobacco Use [...] Description 09/17/2024 1:30 PM EDT Office Visit [facility] 7[address] [facility] [address] [place] [address] Francisco Moore MD 703 [facility] 2, [address] [place] [address] 12/10/2024 12:00 PM EDT Office Visit [facility] [address] [place] [address] [place] [address] [place] [address] documented as of this encounter Visit Diagnoses Not on filedocumented in this encounter Care Teams Swim Coach Relationship Specialty Start Date End Date Generic Provider, No Assigned PcpMD NONE [facility] [place] [address] PCP - General Family Medicine 12/31/22 11/14/23 Raheem Ambrosio DO [address] [place] [address] PCP - General Family Medicine 11/15/23 Franck Pérez MD [address] [place] [address] Referring Physician Radiation Oncology 01/12/23 Yahir Bowling DO [address] [place] [address] Referring Physician Otolaryngology 01/27/23 documented as of this encounter
--- OUTSIDE RECORDS SUMMARY | 2024-08-15 13:14 | XMS_ITS | Encounter Summary ---
Author Organization [facility] Address [address] [place] [address] Phone Care Team Providers Care Field Sales Consultant Name Role Phone Generic Provider, No Assigned Pcp MD Primary Car e Provider Unavailable Franck Pérez MD Unavailable [phone] Yahir Bowling DO Unavailable [phone] Raheem Ambrosio DO Primary Care Provider [phone] Encounter Details Date Type Department Care Team (Late st Contact Info) Description 05/02/2023 Scanned Document [facility] [address] [place] [phone] Scanning, Generic Provider Social History Tobacco Use [...] Description 09/17/2024 1:30 PM EDT Office Visit [facility] [facility] [address] [place] [address] Francisco Moore MD 703 [facility] 2, [address] [place], [place] [address] 12/10/2024 12:00 PM EDT Office Visit [facility] [address] [place] [address] [place] [address] [place] [address] documented as of this encounter Visit Diagnoses Not on filedocumented in this encounter Additional Health Concerns Assessment Noted Time A fall risk assessment has been complete d for the patient 01/27/2023 10:52 AM EST documented as of this encounter Care Teams Field Sales Consultant Relationship Specialty Start Date End Date Generic Provider, No [place] [address] PCP - General Family Medicine 12/31/22 11/14/23 Raheem Ambrosio DO [address] [place] [address] PCP - General Family Medicine 11/15/23 Franck Pérez MD [address] [place] [address] Referring Physician Radiation Oncology 01/12/23 Yahir Bowling DO [address] [place] [address] Referring Physician Otolaryngology 01/27/23 documented as of this encounter
--- OUTSIDE RECORDS SUMMARY | 2024-08-15 13:14 | XMS_ITS | Encounter Summary ---
Author Organization [facility] Address [address] [place] [address] Phone Care Team Providers Care Welt Treater Name Role Phone Franck Pérez MD Unavailable [phone] Yahir Bowling DO Unavailable [phone] Raheem Ambrosio DO Primary Care Provider [phone] Encounter Details Date Type Department Care Team (Late st Contact Info) Description 11/22/2023 Scanned Document [facility] [address] [place] [address] [place] [address] [place] [address] Social History Tobacco Use Types Packs/Day Years Used Date Smoking Tobacco: Some Days Cigarettes Last attempted to quit: 2022 Smokeless Tobacco: Never Alcohol Use Standard Drinks/Week Comments Not Currently 0 (1 standard drink = 0.6 oz pur e alcohol) [facility] Utilities Answer Date Recorded In the past 12 months has [employer], oil, or water [employer] threatened to shut off services in your [...] time in the past 12 m [facility], were you homeless or living in [...] 11:15 AM EDT Faina Sharma RN * [place] Suicide Severity Rating Scale (Screener/Recent Self-Report) Question [...] Description 09/17/2024 1:30 PM EDT Office Visit [facility] 703 [facility] [address] [place] [address] Francisco Moore MD 703 [facility] 2, [address] [place] [address] 12/10/2024 12:00 PM EDT Office Visit [facility] [address] [place] [address] [place] [address] [place] [address] documented as of this encounter Visit Diagnoses Not on filedocumented in this encounter Additional Health Concerns Assessment Noted Time A fall risk assessment has been complete d for the patient 11/07/2023 4:09 PM EDT documented as of this encounter Care Teams Welt Treater Relationship Specialty Start Date End Date Raheem Ambrosio DO [address] [place] [address] PCP - General Family Medicine 11/15/23 Franck Pérez MD 701 [place] [address] Referring Physician Radiation Oncology 01/12/23 Yahir Bowling DO [address] [facility] [address] Referring Physician Otolaryngology 01/27/23 documented as of this encounter
--- OUTSIDE RECORDS SUMMARY | 2024-08-15 13:14 | XMS_ITS | Encounter Summary ---
Author Organization [facility] Address [address] [place] [address] Phone Care Team Providers Care Rock Mason Apprentice Name Role Phone Generic Provider, No Assigned Pcp MD Primary Car e Provider Unavailable Franck Pérez MD Unavailable [phone] Yahir Bowling DO Unavailable [phone] Raheem Ambrosio DO Primary Care Provider [phone] Encounter Details Date Type Department Care Team (Late st Contact Info) Description 01/27/[address] [facility] [address] [place] [address] [place] [address] [place], [place] [address] Social History Tobacco Use Types Packs/Day Years [...] Description 09/17/2024 1:30 PM EDT Office Visit [facility] 703 [facility] [address] [place] [address] Francisco Moore MD 703 [facility] 2, [address] [place], [place] [address] 12/10/2024 12:00 PM EDT Office Visit [facility] [address] [place] [address] [place] [address] [place] [address] documented as of this encounter Visit Diagnoses Not on filedocumented in this encounter Additional Health Concerns Assessment Noted Time A fall risk assessment has been complete d for the patient 01/27/2023 10:52 AM EST documented as of this encounter Care Teams Rock Mason Apprentice Relationship Specialty Start Date End Date Generic Provider, No Assigned MD Gabriel NONE [facility] [place] [address] PCP - General Family Medicine 12/31/22 11/14/23 Raheem Ambrosio DO [address] [place] [address] PCP - General Family Medicine 11/15/23 Franck Pérez MD 701 [place] [address] Referring Physician Radiation Oncology 01/12/23 Yahir Bowling DO [address] [place] [address] Referring Physician Otolaryngology 01/27/23 documented as of this encounter
--- OUTSIDE RECORDS SUMMARY | 2024-08-15 13:14 | XMS_ITS | Encounter Summary ---
Author Organization [facility] Address [address] [place] [address] Phone Care Team Providers Care Fraternity House Cook Name Role Phone Generic Provider, No Assigned Pcp MD Primary Car e Provider Unavailable Franck Pérez MD Unavailable [phone] Yahir Bowling DO Unavailable [phone] Raheem Ambrosio DO Primary Care Provider [phone] Encounter Details Date Type Department Care Team (Late st Contact Info) Description 01/04/2023 Scanned Document [facility] [address] [place] [address] [place] [address] [place] [address] Social History Tobacco Use Types Packs/Day Years [...] Description 09/17/2024 1:30 PM EDT Office Visit [facility] 703 [facility] [address] [place] [address] Francisco Moore MD 703 [facility] 2, [address] [place] [address] 12/10/2024 12:00 PM EDT Office Visit [facility] [address] [place] [address] [place] [address] [place] [address] documented as of this encounter Visit Diagnoses Not on filedocumented in this encounter Care Teams Fraternity House Cook Relationship Specialty Start Date End Date Generic Provider, [place] [address] PCP - General Family Medicine 12/31/22 11/14/23 Raheem Ambrosio DO [address] [place] [address] PCP - General Family Medicine 11/15/23 Franck Pérez MD [address] [place] [address] Referring Physician Radiation Oncology 01/12/23 Yahir Bowling DO [address] [place] [address] Referring Physician Otolaryngology 01/27/23 documented as of this encounter
--- OUTSIDE RECORDS SUMMARY | 2024-08-15 13:14 | XMS_ITS | Encounter Summary ---
Author Organization [facility] Address [address] [place] [address] Phone Care Team Providers Care Agricultural Education Instructor Name Role Phone Franck Pérez MD Unavailable Yahir Bowling DO Unavailable [phone] Raheem Ambrosio DO Primary Care Provider [phone] Encounter Details Date Type Department Care Team (Late st Contact Info) Description 11/22/[address] [facility] [address] [place] [address] [place] [address] [place] [address] Social History Tobacco Use Types Packs/Day Years Used Date Smoking Tobacco: Some Days Cigarettes Last attempted to quit: 2022 Smokeless Tobacco: Never Alcohol Use Standard Drinks/Week Comments Not Currently 0 (1 standard drink = 0.6 oz pur e alcohol) [facility] Utilities Answer Date Recorded In the past 12 months has [employer], oil, or water [employer] threatened to shut off services in your [...] any time in the past 12 m [facility], were you homeless or living [...] 11:15 AM EDT Faina Sharma RN * [place] Suicide Severity Rating Scale (Screener/Recent Self-Report) Question [...] Description 09/17/2024 1:30 PM EDT Office Visit [facility] 703 [facility] 250 [place] [address] Francisco Moore MD 703 [facility] 2, [address] [place] [address] 12/10/2024 12:00 PM EDT Office Visit [facility] [address] [place] [address] [place] [address] [place] [address] documented as of this encounter Visit Diagnoses Not on filedocumented in this encounter Additional Health Concerns Assessment Noted Time A fall risk assessment has been complete d for the patient 11/07/2023 4:09 PM EDT documented as of this encounter Care Teams Agricultural Education Instructor Relationship Specialty Start Date End Date Raheem Ambrosio DO [address] [place] [address] PCP - General Family Medicine 11/15/23 Franck Pérez MD 701 [place] [address] Referring Physician Radiation Oncology 01/12/23 Yahir Bowling DO [address] [facility] [place] [address] Referring Physician Otolaryngology 01/27/23 documented as of this encounter
--- OUTSIDE RECORDS SUMMARY | 2024-08-15 13:14 | XMS_ITS | Patient Health Record ---
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) Active confirmed Problem Stasis dermatitis co-occurrent with 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 (340350280158732 ) Idiopathic chronic venous hypertension of right lower extremity with ulcer (I87.311) Active confirmed Problem Decubitus ulcer of right foot, stage 3 (L89.893) Active confirmed Problem Ulcer of right foot (disorder) (447928034) Chronic ulcer of right foot limited to breakdown of skin (L97.511) Active confirmed Plan Of Treatment No Information Insurance Providers Payer Name Payer Address Payer Phone Subscriber Number Group Number Insured Name Patient Relationship to Insured Coverage Start Date Coverage End Date [place] [address] [place] [address] [id number] Bruce Maldonado Self - patient is the insured [facility] PPO PLUS LOCAL [facility] [address] [place] [address] [id number] Bruce Maldonado Self - patient is the insured
--- OUTSIDE RECORDS SUMMARY | 2024-08-15 13:14 | XMS_ITS | Encounter Summary ---
Author Organization [facility] Address [address] [place] [address] Phone Care Team Providers Care Associate Director Of Biostatistics Name Role Phone Franck Pérez MD Unavailable [phone] Yahir Bowling DO Unavailable [phone] Raheem Ambrosio DO Primary Care Provider [phone] Encounter Details Date Type Department Care Team (Latest Contact Info) Description 08/06/2024 Travel Social History Tobacco Use Types Packs/Day Years Used Date Smoking Tobacco: Some Days Cigarettes Last attempted to quit: 2022 Smokeless Tobacco: Never Alcohol Use Standard Drinks/Week Comments Not Currently 0 (1 standard drink = 0.6 oz pur e alcohol) [facility] Utilities Answer Date Recorded In the [...] any time in the past 12 m [facility], were you homeless or [...] Description 09/17/2024 1:30 PM EDT Office Visit [facility] 703 [facility] 250 [place] [address] Francisco Moore MD [address] [facility], [address] [place] [address] 12/10/2024 12:00 PM EDT Office Visit [facility] [address] [place] [address] [place] [address] [place], [place] [address] documented as of this encounter Visit Diagnoses Not on filedocumented in this encounter Additional Health Concerns Assessment Noted Time A fall risk assessment has been complete d for the patient 11/07/2023 4:09 PM EDT documented as of this encounter Care Teams Associate Director Of Biostatistics Relationship Specialty Start Date End Date Raheem Ambrosio DO [address] [place] [address] PCP - General Family Medicine 11/15/23 Franck Pérez MD [address] [place] [address] Referring Physician Radiation Oncology 01/12/23 Yahir Bowling DO [address] [place] [address] Referring Physician Otolaryngology 01/27/23 documented as of this encounter
--- OUTSIDE RECORDS SUMMARY | 2024-08-15 13:14 | XMS_ITS | Encounter Summary ---
Author Organization [facility] Address [address] [place] [address] Phone Care Team Providers Care Marble And Granite Polisher Name Role Phone Generic Provider, No Assigned Pcp MD Primary Car e Provider Unavailable Franck Pérez MD Unavailable [phone] Yahir Bowling DO Unavailable [phone] Raheem Ambrosio DO Primary Care Provider [phone] Encounter Details Date Type Department Care Team (Late st Contact Info) Description 12/19/2022 Scanned Document [facility] [address] [place] [phone] Scanning, Generic Provider Social History Tobacco Use [...] Description 09/17/2024 1:30 PM EDT Office Visit [facility] 703 [facility] [address] [place] [address] Francisco Moore MD 703 [facility] 2, [address] [place] [address] 12/10/2024 12:00 PM EDT Office Visit [facility] [address] [place] [address] [place] [address] [place] [address] documented as of this encounter Procedures Procedure [...] on filedocumented in this encounter Care Teams Marble And Granite Polisher Relationship Specialty Start Date End Date Generic Provider, No Assigned [place] [address] PCP - General Family Medicine 12/31/22 11/14/23 Raheem Ambrosio DO [address] [place] [address] PCP - General Family Medicine 11/15/23 Franck Pérez MD 701 [place] [address] Referring Physician Radiation Oncology 01/12/23 Yahir Bowling DO [address] [place] [address] Referring Physician Otolaryngology 01/27/23 documented as of this encounter
--- OUTSIDE RECORDS SUMMARY | 2024-08-15 13:14 | XMS_ITS | Encounter Summary ---
Author Organization [facility] Address [address] [place] [address] Phone Care Team Providers Care School Community Relations Coordinator Name Role Phone Generic Provider, No Assigned Pcp MD Primary Car e Provider Unavailable Franck Pérez MD Unavailable [phone] Yahir Bowling DO Unavailable [phone] Raheem Ambrosio DO Primary Care Provider [phone] Encounter Details Date Type Department Care Team (Late st Contact Info) Description 12/23/2022 Scanned Document [facility] [address] [place] [address] Scanning, Generic Provider Social History Tobacco Use [...] Description 09/17/2024 1:30 PM EDT Office Visit [facility] [address] [facility] [address] [place] [address] Francisco Moore MD 703 [facility] 2, [address] [place] [address] 12/10/2024 12:00 PM EDT Office Visit [facility] [address] [place] [address] [place] [address] [place] [address] documented as of this encounter Visit Diagnoses Not on filedocumented in this encounter Care Teams School Community Relations Coordinator Relationship Specialty Start Date End Date Generic Provider, No Assigned PcpMD [facility]ONE [facility] [place] [place] [address] PCP - General Family Medicine 12/31/22 11/14/23 Raheem Ambrosio DO [address] [place] [address] PCP - General Family Medicine 11/15/23 Franck Pérez MD 701 [place] [address] Referring Physician Radiation Oncology 01/12/23 Yahir Bowling DO [address] [place] [address] Referring Physician Otolaryngology 01/27/23 documented as of this encounter
--- OUTSIDE RECORDS SUMMARY | 2024-08-15 13:14 | XMS_ITS | Encounter Summary ---
Author Organization [facility] Address [address] [place] [address] Phone Care Team Providers Care Massage Coordinator Name Role Phone Franck Pérez MD Unavailable [phone] Yahir Bowling DO Unavailable [phone] Raheem Ambrosio DO Primary Care Provider [phone] Encounter Details Date Type Department Care Team (Late st Contact Info) Description 02/12/[address] [facility] [address] [place] [address] [place] [address] [place] [address] Social History Tobacco Use Types Packs/Day Years Used Date Smoking Tobacco: Some Days Cigarettes Last attempted to quit: 2022 Smokeless Tobacco: Never Alcohol Use Standard Drinks/Week Comments Not Currently 0 (1 standard drink = 0.6 oz pur e alcohol) [facility] Utilities Answer Date Recorded In the past 12 months has [employer], oil, or water [employer] threatened to shut off services in your [...] any time in the past 12 m [facility], were you homeless or living in a [facility] (including now)? No 11/23/2023 Sex and Gender Information Value Date Recorded Sex Assigned at Not on file Legal Sex Male 1:26 AM EST Gender Identity Not on file Sexual Orientation Not on file documented as of this encounter Plan of Treatment Upcoming Encounters Date Type Department Care Team (Late st Contact Info) Description 09/17/2024 1:30 PM EDT Office Visit [facility] 703 [facility] [address] [place] [address] Francisco Moore MD 703 [facility] 2, [address] [place] [address] 12/10/2024 12:00 PM EDT Office Visit [facility] [address] [place] [address] [place] [address] [place], [place] [address] documented as of this encounter Visit Diagnoses Not on filedocumented in this encounter Additional Health Concerns Assessment Noted Time A fall risk assessment has been complete d for the patient 11/07/2023 4:09 PM EDT documented as of this encounter Care Teams Massage Coordinator Relationship Specialty Start Date End Date Raheem Ambrosio DO [address] [place] [address] PCP - General Family Medicine 11/15/23 Franck Pérez MD 701 [place] [address] Referring Physician Radiation Oncology 01/12/23 Yahir Bowling DO [address] [facility] [place] [address] Referring Physician Otolaryngology 01/27/23 documented as of this encounter
== END 2024-08-15 13:13 | disposition home or self-care (01) ==
LOC: WC 13:12
PROVIDERS: PCP Family Medicine; Visit Provider Physician Assistant
DX: I87.311 Chronic venous hypertension (idiopathic) with ulcer of right lower extremity (principal); L97.811 Non-pressure chronic ulcer of other part of right lower leg limited to breakdown of skin; L97.511 Non-pressure chronic ulcer of other part of right foot limited to breakdown of skin; L89.893 Pressure ulcer of other site, stage 3
CPT/HCPCS: G0463

== ENCOUNTER 2024-09-11 12:57 | Outpatient (OUT) | payer MEDICARE, BC, SELFPAY | END 2024-09-11 12:58 | disposition home or self-care (01) | LOC: WC 12:57 | PROVIDERS: PCP Family Medicine; Visit Provider Physician Assistant | DX: I87.311 Chronic venous hypertension (idiopathic) with ulcer of right lower extremity (principal); L97.811 Non-pressure chronic ulcer of other part of right lower leg limited to breakdown of skin; L97.511 Non-pressure chronic ulcer of other part of right foot limited to breakdown of skin; L89.893 Pressure ulcer of other site, stage 3 | CPT/HCPCS: G0463 ==

== ENCOUNTER 2024-10-09 14:35 | Outpatient (OUT) | payer MEDICARE, BC, SELFPAY | END 2024-10-09 14:36 | disposition home or self-care (01) | LOC: WC 14:36 | PROVIDERS: PCP Family Medicine; Visit Provider Physician Assistant | DX: I87.311 Chronic venous hypertension (idiopathic) with ulcer of right lower extremity (principal); L97.811 Non-pressure chronic ulcer of other part of right lower leg limited to breakdown of skin; L97.511 Non-pressure chronic ulcer of other part of right foot limited to breakdown of skin; L89.893 Pressure ulcer of other site, stage 3 | CPT/HCPCS: G0463 ==

== ENCOUNTER 2024-10-24 08:58 | Outpatient (OUT) | payer MEDICARE, BC, SELFPAY ==
--- NOTE | 2024-10-24 09:00 | CA_ITS ---
[facility] Test Date: 2024-10-24 Pat Name: HILARY LEAL Department: Room: - Gender: Male Hot Roller: : 1945 Requested By: Norma Elizabeth Order Number: [id number] Reading MD: ROBY CLYATON M.D. Interpretive Statements Summary of the findings: Right leg: MARY= 1.21; TBI= 0.89. Doppler waveforms demonstrate monophasic flow at the posterior tibial and dorsalis pedis arteries. Left leg: MARY= 1.30; TBI= 1.03. Doppler waveforms demonstrate monophasic flow at the posterior tibial and dorsalis pedis arteries. Segmental pressures: Segmental pressures show calcified femoral arteries bilaterally. Pulse volume recordings: PVRs at the high thigh, below knee, and ankle levels show dampened waveforms. Conclusion: Right and left ankle-brachial indices are suggestive of normal overall arterial flow at rest. Toe-brachial indices are not suggestive of PAD. Segmental pressures show calcified femoral arteries bilaterally. Pulse volume recordings indicate reduced overall resting arterial flow. The study shows evidence of PAD with normal overall arterial flow at rest. Electronically Signed On 10-29-2024 20:33:53 EDT by ROBY CLAYTON M.D.
--- OUTSIDE RECORDS SUMMARY | 2024-10-24 09:07 | XMS_ITS | CCD ---
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 Name Role Phone Alejandra Bar Unavailable DO Damian Ambrosio Primary Care Provider DO Tomas Bradley Emergency Provider [phone] Al MD Andrea Ross Admit Provider DO Dennis Camargo Attending Provider DO Anil Chun Other Provider DO Damian Ambrosio Primary Care Provider MARTY Wilkerson Emergency Provider MD Hilary Tolliver Jr Emergency Provider MD Hunter Silvestre Admit Provider [phone] MD Hunter Silvestre Attending Provider MD Pedro Luis Frye Attending Provider MD Elizabeth Williamson Other Provider DO Victor M Kumar Other Provider MD Ayaz Cruz Other Provider [phone] MD Mariano Wilkins Emergency Provider [phone] MD Tricia Salazar Admit Provider MD Tricia Salazar Attending Provider [phone] MD Mariano Wilkins Emergency Provider MD Tricia Salazar Admit Provider [phone] DO Aashish Natarajan Attending Provider MD Ayaz Cruz Admit Provider [phone] MD Ayaz Cruz Attending Provider [phone] MD William Williamson Other Provider DO Hudson Patel Emergency Provider MD Tricia Salazar Attending Provider MD Hilary Rice Other Provider MD Mariano Morris Other Provider MD Amalia Syed Other Provider MD Hermilo Avendaño II Other Provider DO Toby Lopez Other Provider MD Adin Boyce Attending Provider DO Damian Ambrosio Primary Care Provider MARTY Wilkerson Emergency Provider MD Hilary Tolliver Jr Emergency Provider MD Hunter Silvestre Admit Provider [phone] MD Pedro Luis Frye Attending Provider MD William Williamson Other Provider DO Victor M Kumar Other Provider MD Ayaz Cruz Other Provider MD Mariano Wilkins Emergency Provider [phone] MD Tricia Salazar Admit Provider [phone] DO Aashish Natarajan Attending Provider [phone] MD Ayaz Cruz Attending Provider DO Hudson Patel Emergency Provider [phone] MD Hilary Rice Other Provider MD Mariano Morris Other Provider [phone] MD Amalia Syed Other Provider MD Hermilo Avendaño II Other Provider DO Toby Lopez Other Provider MD Adin Boyce Attending Provider DO Nicol Almanza Attending Provider NO FAMILY, PHYSICIAN Primary Care Provider Unava ilable MD Celeste Alfonso Admit Provider MD Celeste Alfonso Attending Provider [phone] LAVELL Ludwig Other Provider Unavailable DO Demetria Camargo Other Provider MD Krissy Moctezuma Other Provider MD Fredrick Moss Other Provider MD Manjinder Galloway Other Provider MD Noel Barajas Other Provider PHYLLIS Mix Other Provider MD Acacia Whitaker Other Provider MD [facility] Naeb Other Provider MD Sam Bradshaw Other Provider [facility] Jazmin Ramirez Other Provider MD Caron Doherty Other Provider MD Andrei Araujo Other Provider MD Franck Pérez Attending Provider DO Nicol Almanza Referring Provider Generic Provider MD, No Assigned Pcp Primary Car e Provider Unavailable Franck Pérez MD Unavailable Nicol Almanza DO Unavailable [phone] DO Hudson Patel Emergency Provider MD Franck Pérez Attending Provider DO Damian Ambrosio Primary Care Provider DO Nicol Almanza Referring Provider DO Christi Wilson Emergency Provider [phone] Fringpoonam, DO Quintana Admit Provider [phone] Frings, DO Quintana Attending Provider Generic Provider , No Assigned Pcp Primary Car e Provider Unavailable MD Franck Pérez Attending Provider DO Damian Ambrosio Primary Care Provider Tawnya, DO Sinclair Referring Provider [phone] MD Franck Pérez Attending Provider DO Damian Ambrosio Primary Care Provider [phone] Tawnya, DO Sinclair Referring Provider PHYLLIS Mae Emergency Provider Frina, DO Quintana Admit Provider Jeannie, DO Quintana Attending Provider PHYLLIS Mae Emergency Provider Jeannie, DO Quintana Admit Provider MD Hilary Rice Other Provider MD William Williamson Other Provider MD Celeste Alfonso Attending Provider [phone] Mariano Dennis Admitting Unavailable Damian Ambrosio Primary Care Unavailable Dennis Camargo Attending UnavailNehal Bryan Consulting Unavailable Ayaz Cruz Consulting Unavaila Anil Vieyra Consulting Unavailable Mike Odom II Consulting Unavaila Nicol Small Consulting Unavailable Ayaz Cruz Attending UnavailAyaz Gallagher Admitting UnavailDamian Calero Primary Care Unavailable Nicol Almanza Attending Unavailable Nicol Almanza Admitting Unavailable Franck Pérez Admitting Unavailable Nicol Almanza Referring Unavailable Damian Ambrosio Primary Care Unavailable Franck Pérez Attending Unavailable Edilberto Wilkerson Admitting Unavailable Damian Ambrosio Primary Care Unavailable Edilberto Wilkerson Attending Unavailable Celeste Alfonso Attending Unavailable Damian Ambrosio Primary Care Unavailable Hilary Rice Consulting Unavailable Mariano Dennis Admitting Unavailable William Williamson Consulting Unavailab Celeste Mack Attending Unavailable NO FAMILY, PHYSICIAN Primary Care Unavailable Celeste Alfonso Admitting Unavailable Emma Ludwig Consulting Unavailable Demetria Camargo Consulting Unavailable Krissy Moctezuma Consulting Unavailable Fredrick Moss Consulting Unavail able Manjinder Galloway Consulting Unavailable Noel Barajas Consulting Unavailab Keke Hollis Consulting Unavailable Acacia Whitaker Consulting Unavailable Rianna Prater Consulting Unavailab Sam Floyd Consulting Unavailable Jazmin Arnett Consulting Unavailable Caron Doherty Consulting Unavailable Andrei Araujo Consulting Unavailable Tricia Salazar Admitting Unavailable Ayaz Cruz Consulting Unavaila Aashish Nicole Attending Unavailable Damian Ambrosio Primary Care Unavailable Tricia Salazar Admitting Unavailable Damian Ambrosio Primary Care Unavailable Adin Boyce Attending Unavailable Hilary Rice Consulting Unavailable Mariano Morris Consulting Unavailable Amalia Syed Consulting Unavailable Victor M Kumar Consulting Unavailable Hermilo Avendaño II Consulting UnavailToby Interiano Consulting Unavailable Hunter Silvestre Admitting Unavailable Damian Ambrosio Primary Care Unavailable Pedro Luis Frye Attending Unavailable Flori Williamsonelrahman Consulting Unavailab Victor M Marroquin Consulting Unavailable Ayaz Cruz Consulting Unavaila RAHEEM Alexander Attending Unavailable RAHEEM AMBROSIO Referring Unavailable DOMINICK NUÑEZ Attending Unavailable NICOL ALMANZA Attending Unavailable RAHEEM AMBROSIO Attending Unavailable RAHEEM AMBROSIO Referring Unavailable RAHEEM AMBROSIO Attending Unavailable ZELDA MENDEZ Attending Unavailable MANJINDER GALLOWAY Referring Unavailable RAHEEM AMBROSIO Primary Care Unavailable GENERIC PROVIDER, NO ASSIGNED PCP Primary Care Unavailable TRABOULSSI, MOURHAF Referring Unavailable GENERIC PROVIDER, NO ASSIGNED PCP Primary Care Unavailable TRABOULSSI, MOURHAF Referring Unavailable GENERIC PROVIDER, NO ASSIGNED PCP Primary Care Unavailable TRABOULSSI, MOURHAF Referring Unavailable GENERIC PROVIDER, NO ASSIGNED PCP Primary Care Unavailable TRABOULSSI, MOURHAF Referring Unavailable GENERIC PROVIDER, NO ASSIGNED PCP Primary Care Unavailable Raheem Ambrosio DO R Unavailable [phone] Raheem Ambrosio DO R Primary Care Provider Kamatthias DO, Raheem R Primary Care Provider Generic Provider MD, No Assigned Pcp Primary Car e Provider Unavailable Unavailable Primary Care Provider Unavailabl e Unavailable Primary Care Provider Unavailhuseyin Pérez MD, Franck Martínez Unavailable ORION ETIENNE Referring Unavailable RAHEEM AMBROSIO Primary Care Unavailable ORION ETIENNE Admitting Unavailable ORION ETIENNE Attending Unavailable RAHEEM AMBROSIO Primary Care Unavailable ORION ETIENNE Attending Unavailable GENERIC PROVIDER, NO ASSIGNED PCP Primary Care Unavailable TRABVERASSI, MOURHAF Attending Unavailable GENERIC PROVIDER, NO ASSIGNED PCP Primary Care Unavailable ORION ETIENNE Attending Unavailable RAHEEM AMBROSIO Primary Care Unavailable ORION ETIENNE Attending Unavailable RAHEEM AMBROSIO R Primary Care Unavailable ORION ETIENNE Attending Unavailable RAHEEM AMBROSIO R Primary Care Unavailable ORION ETIENNE Attending Unavailable RAHEEM AMBROSIO R Primary Care Unavailable Allergies Allergy Classification Reported Allergen(s) Allergy Type Date of Onset Reaction(s) Facility (20 sources) Morphine; Translations: [MORPHINE] Drug Allergy 3 Unknown [facility] Work Phone: (17 sources) Ramipril; Translations: [RAMIPRIL] Drug Allergy 3 Angioedema [facility] (11 sources) Nutritional Supplement-Fiber ; Translations: [NUTRITIONAL SUPPLEMENT-FIBER ] Propensity to adverse reactions 3 Unknown [facility] Work Phone: (8 sources) egg extract; Translations: [EGG] Drug Allergy 5 [facility] Work Phone: (14 sources) [place] Flavor; Translations: [CITRUS FLAVOR] Propensity to adverse reactions 5 [facility] (9 sources) egg yolk (chicken) allergenic extract Drug Allergy 5 [facility] (9 sources) Ramipril Allergy to substance 3 [facility] Work Phone: Medications Current Medications Medication Drug Class(es) Dates Sig (Normalized) Sig (Original) acetaminophen 325 mg oral tablet (19 sources) Start: 11-23-2023 End: 12-07-2023 take 2 tablets by mouth every six hours for pain acetaminophen (Tylenol) 325 mg tablet 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 11/23/2023 12/07/2023 Active Start: 11-23-2023 acetaminophen (Tylenol) tablet 975 mg Start: 11-22-2023 End: 11-22-2023 1,000 mg, intravenous, at 40 0 mL/hr, Administer over 15 Minutes, Once, On Mon11/22/23 at 1630, For 1 dose Start: 03-08-2023 take 1000 mg by mout h every six hours Acetaminophen Active 1000 MG PO Q6H 0 March 08, 2023 1:00am take 1 tablet by nubia th every eight hours as needed for pain acetaminophen (Tylenol 8 Hour) 650 MG ER tablet Take 650 mg by mouth every 8 (eight) hours if needed for mild pain Do not crush, chew, or split. Active End: 11-24-2023 take 2 tablets by mouth every eight hours as needed acetaminophen (Tylenol) 325 mg tablet Take 2 tablets (650 mg) by mouth every 8 hours if needed for mild pain (1 - 3) (for general pain or discomfort). Do not crush, chew, or split. 11/24/2023 Discontinued (Stop Taking at Discharge) acetaminophen 325 mg / HYDROcodone bitartrate 5 mg oral tablet (3 sources) Opioid Agonist Start: 05-28-2024 HYDROcodone-acetaminophen ([place]) 5-325 mg tablet 05/28/2024 Active ACETAMINOPHEN PAIN RELIEF ORAL (1 source) take 325 mg by mouth once daily ACETAMINOPHEN PAIN RELIEF ORAL Take 325 mg by mouth once daily. Active allopurinol 300 mg oral tablet (20 sources) Xanthine Oxidase Inhibitor Start: 02-28-2023 take 1 tablet by mouth in the morning allopurinol (Zyloprim) 300 MG tablet Indications: Gout, unspecified cause, unspecified chronicity, unspecified site Take 1 tablet (300 mg) by mouth in the morning. 90 tablet 3 02/28/2023 Active Start: 09-10-2021 End: 11-20-2022 take 300 mg by mouth once daily in the morning Allopurinol Active 300 MG PO Every morning November 20, 2022 12:00am ARIPiprazole 5 mg oral tablet (20 sources) Atypical Antipsychotic Start: 12-19-2022 End: 09-17-2024 take 1 tablet by mouth in the morning ARIPiprazole (Abilify) 5 MG tablet Indications: Encephalopathy , Tension-type headache, not intractable, unspecified chronicity pattern , Insomnia, unspecified type Take 1 tablet (5 mg) by mouth in the morning. 30 tablet 5 02/28/2023 Active ascorbic acid 500 mg oral tablet (20 sources) Vitamin C Start: 03-08-2023 take 1 tablet by mouth at breakfast Ascorbic Acid (Vitamin C) (Vitamin C) 500 mg Tablet Active 500 MG PO With breakfast and lunch 0 March 08, 2023 1:00am take 1 capsule by mouth twice da tata ascorbic acid (Vitamin C) 500 mg ER capsule Take 1 capsule (500 mg) by mouth twice a day. For vitamin Active aspirin 81 mg delayed release oral tablet (20 sources) Platelet Aggregation Inhibitor, Nonsteroidal Anti-inflammatory Drug Start: 08-04-2024 take 1 tablet by mouth in the morning aspirin 81 mg Indications: Atherosclerosis of [place] coronary artery of [place] heart without angina pectoris Take 1 tablet (81 mg total) by mouth in the morning. 08/04/2024 Active Start: 11-22-2023 take 81 mg by mouth once daily 81 mg, oral, Daily, First dose on Mon11/22/23 at 1830, Do not crush, chew, or split. Start: 03-08-2023 take 81 mg by mouth once daily Aspirin Active 81 MG PO Daily 0 March 08, 2023 1:00am Start: 08-08-2019 End: 01-16-2024 take 81 mg by mouth once daily Aspirin Discontinued 81 MG PO Daily November 20, 2022 12:00am February 28, 2023 4:39pm atorvastatin 20 mg oral tablet (20 sources) HMG-CoA Reductase Inhibitor Start: 09-17-2024 End: 09-17-2025 take 1 tablet by mouth once daily at bedtime atorvastatin (Lipitor) 20 mg tablet Indications: hyperlipidemia Take 1 tablet (20 mg) by mouth once daily at bedtime. For HLD 90 tablet 3 09/17/2024 09/17/2025 Active Start: 03-02-2018 End: 09-17-2024 take 1 tablet by mouth in the morning atorvastatin (Lipitor) 10 MG tablet Indications: Mixed hyperlipidemia (CMS/HCC) Take 1 tablet (10 mg) by mouth in the morning. 90 tablet 3 09/27/2022 Active calcium carbonate 1250 mg or al tablet (20 sources) Start: 03-08-2023 Calcium Carbon ate (Oyster Shell Calcium 500) 500 mg calcium (1,250 mg) Tablet Active 500 MG PO With breakfast and lunch 0 March 08, 2023 1:00am End: 09-17-2024 take 1 tablet by mouth twice daily calcium carbonate (Oscal) 500 mg calcium (1,250 mg) tablet Take 1 tablet (1,250 mg) by mouth 2 times daily (morning and late afternoon). For osteoporosis 09/17/2024 Discontinued (Discontinued by another clinician) calcium carbonate 625 mg / cholecalciferol 125 unt oral tablet (3 sources) Vitamin D take 1 tablet by mouth twice daily calcium carbonate-vitamin D3 (Oyster Shell) 250 mg-3.125 mcg (125 unit) tablet Take 1 tablet by mouth 2 times daily (morning and late afternoon). Active carvedilol 6.25 mg oral tablet (20 sources) alpha-Adrenergi c Eric, beta-Adrenergic Eric Start: 11-22-19 take 3.125 mg by mouth twice daily 3.125 mg, oral, 2 times daily, First dose on Mon11/22/23 at 2100 Start: 12-22-2022 take 1 tablet by nubia th in the morning carvedilol (Coreg) 3.125 MG tablet Indications: Acute heart failure, unspecified heart failure type (CMS/HCC) Take 1 tablet (3.125 mg) by mouth in the morning and 1 tablet (3.125 mg) in the evening. Take with meals. 180 tablet 3 02/28/2023 Active cholecalciferol 0.01 mg oral tablet (20 sources) Vitamin D Start: 05-02-2023 End: 09-17-2024 take 1 tablet by mouth once daily Cholecalciferol (Vitamin D3) (Vitamin D3) 10 mcg (400 unit) Tablet Active 10 MCG PO Daily May 02, 2023 12:02pm Start: 03-08-2023 End: 05-02-2023 take 1 tablet by mouth twice daily at mealtime Cholecalciferol (Vitamin D3) (Vitamin D3) 10 mcg (400 unit) Tablet Discontinued 10 MCG PO Twice daily with meals March 08, 2023 1:00am May 02, 2023 1:11pm take 1 capsule by [facility] once daily cholecalciferol (Vitamin D-3) 10 MCG (400 UNIT) capsule Take 400 Units by mouth Daily Active End: 11-07-2023 take 1 tablet by mouth once daily cholecalciferol (Vitamin D-3) 5,000 Units tablet Take by mouth once daily. 11/07/2023 Discontinued (Dose adjustment) codeine phosphate 2 mg/ml / guaiFENesin 20 mg/ml oral solution (3 sources) Opioid Agonist codeine-guaifene sin (Robitussin-AC) 10-100 mg/5 mL syrup Take by mouth. Active docusate sodium 100 mg oral capsule (20 sources) Start: take 200 mg by mouth twice daily Docusate Sodium Active 200 MG PO Twice daily 0 March 08, 2023 1:00am Start: 08-09-2019 End: 03-08-2023 take 1 capsule by mouth twice daily Docusate Sodium (Dok) 100 mg Capsule Discontinued 100 MG PO Twice daily 60 August 09, 2019 12:00am March 08, 2023 12:20pm take 1 capsule by mouth once doc usate sodium (Colace) 100 mg capsule Take 1 capsule (100 mg) by mouth every 24 (twenty four) hours if needed for constipation. Active doxycycline monohydrate 100 mg oral tablet (3 sources) Tetracycline-class Drug take 1 tablet by mouth twice daily doxycycline (Adoxa) 100 mg tablet Take 1 tablet (100 mg) by mouth 2 times a day. Take with a full glass of water and do not lie down for at least 30 minutes after 0 Active Excedrin Migraine (1 source) Excedrin Migrain e Active ferrous sulfate 324 mg delayed release oral tablet (20 sources) Start: 03-08-19 Ferrous Sulfate Active 324 MG PO Every 48 hours 0 March 08, 2023 1:00am End: 09-17-2024 take 1 tablet by mouth every other day ferrous sulfate 325 (65 Fe) MG EC tablet Indications: iron deficiency anemia Take 65 mg by mouth every other day. Do not crush, chew, or split. 09/17/2024 Discontinued (Discontinued by another clinician) take 1 tablet by nubia th every other day ferrous sulfate 325 (65 Fe) MG tablet Take 325 mg by mouth every other day Active take 1 tablet by nubia th three times daily ferrous sulfate 325 (65 Fe) MG EC tablet Take 65 mg by mouth 3 times daily (morning, midday, late afternoon). Do not crush, chew, or split. Active furosemide 40 mg oral tablet (20 sources) Loop Diuretic Start: 11-24-2023 Start: 05-02-2023 take 40 mg by mouth once daily Furosemide Active 40 MG PO Daily May 02, 2023 12:02pm Start: 03-08-2023 End: 05-02-2023 take 40 mg by mouth twice daily Furosemide Discontinue d 40 MG PO BID@0800,1600 0 March 08, 2023 1:00am May 02, 2023 1:11pm Start: 02-28-2023 End: 03-08-2023 take 1 tablet by mouth once daily Furosemide (Lasix) 40 mg Tablet Discontinued 40 MG PO Daily February 28, 2023 1:00am March 08, 2023 12:20pm End: 11-07-2023 take 1 dose by mouth once daily furosemide (Lasix) 40 mg/5 mL (8 mg/mL) solution Take by mouth once daily. 11/07/2023 Discontinued (Dose adjustment) take 2 tablets by mo uth once daily furosemide (Lasix) 20 mg tablet Take 2 tablets (40 mg) by mouth once daily. 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 11/23/2023 12/03/2023 Active 1 ml LORazepam 2 mg/ml injection (1 source) Benzodiazepine LORazepam 2 MG/M L as directed Injection Active Magnesium (1 source) Magnesium Active magnesium hydroxide 80 mg/ml oral suspension (1 source) take 30 mL by mouth every twenty-four hours as needed magnesium hydroxide (Milk of Magnesia) 400 mg/5 mL suspension Take 30 mL by mouth once daily as needed for constipation. Active melatonin 3 mg oral capsule (1 source) melatonin 3 mg capsule Take by mouth once daily at bedtime. Active mirtazapine 15 mg oral tablet (20 sources) Start: 11-22-2023 take 30 mg by mouth once daily 30 mg, oral, Nightly, First dose on Mon11/22/23 at 2100 Start: 06-01-2023 End: 09-17-2024 take 1 tablet by mouth once daily at bedtime mirtazapine (Remeron) 30 mg tablet Take 1 tablet (30 mg) by mouth once daily at bedtime. For insomnia 10/30/2023 09/17/2024 Discontinued (Dose adjustment) Start: 10-27-2022 End: 11-07-2023 take 15 mg by mouth once daily at bedtime Mirtazapine Active 15 MG PO Daily at bedtime October 27, 2022 12:00am take 1 tablet by nubia th once daily at bedtime mirtazapine (Remeron Christiano-Tab) 15 mg disintegrating tablet Dissolve 1 tablet (15 mg) in the mouth once daily at bedtime. Active multivitamin (Theragran) tablet (9 sources) take 1 tablet by nubia th once daily multivitamin (Theragran) tablet Take 1 tablet by mouth Daily Active multivitamin tablet (8 sources) take 1 tablet by nubia th once daily multivitamin tablet Take 1 tablet by mouth once daily. For vitamins Active take 1 tablet by mouth once juan m y multivitamin tablet Take 1 tablet by mouth once daily. Active Multivitamin With Folic Acid (Thera) 400 mcg Tablet (4 sources) Start: 03-08-2023 take 1 tablet by mouth once daily Multivitamin With Folic Acid (Thera) 400 mcg Tablet Active 1 TAB PO Daily 0 March 08, 2023 1:00am Start: 03-08-2023 take 1 tablet by nubia once daily Multivitamin With Folic Acid (Thera) 400 mcg Tablet Active 1 TAB PO Daily March 08, 2023 12:00am Naloxone (1 source) Opioid Antagonist Start: 11-22-2023 24 hr nicotine 0.875 mg/hr transdermal system (3 sources) Cholinergic Nicotinic Agonist apply 1 dose transdermal route every twenty-four hours nicotine (Nicoderm CQ) 21 mg/[address] 1 patch on the skin once every 24 hours. 0 Active oxyCODONE hydrochloride 5 mg oral tablet (1 source) Opioid Agonist Start: 11-22-2023 take 1 tablet by mouth every six hours as needed polyethylene glycol 3350 26912 mg powder for oral solution (1 source) Osmotic Laxative Start: 11-22-2023 polyvinyl alcohol 0.014 ml/ml / povidone 6 mg/ml ophthalmic solution (3 sources) lubricating eye drops ophthalmic solution 1 drop if needed for dry eyes. Active potassium chloride 20 meq extended release oral tablet (20 sources) Start: 05-02-2023 take 10 mEq by mouth once daily Potassium Chloride Active 10 MEQ PO Daily May 02, 2023 1:11pm Start: 02-28-2023 End: 05-02-2023 take 20 mEq by mouth once daily Potassium Chloride Dis continued 20 MEQ PO Daily February 28, 2023 1:00am May 02, 2023 1:11pm End: 10-11-2023 take 1 tablet by mouth once daily potassium chloride CR 10 mEq ER tablet Take 1 tablet (10 mEq) by mouth once daily. Do not crush, chew, or split. For hypokalemia Active potassium chlori de CR (Klor-Con M10) 10 MEQ ER tablet Take 10 mEq by mouth Daily Do not crush or chew. Active take 1 tablet by twice daily potassium chloride CR 10 mEq ER tablet Take 1 tablet (10 mEq) by mouth 2 times a day. Do not crush, chew, or split. Active pregabalin 100 mg oral capsule (20 sources) Start: 06-05-2023 End: 12-02-2023 take 1 capsule by mouth in the morning pregabalin (Lyrica) 100 MG capsule Indications: Chronic pain of right knee , Skin sensation disturbance Take 1 capsule (100 mg) by mouth in the morning and 1 capsule (100 mg) before bedtime. 180 capsule 1 06/05/2023 Active Start: 03-08-2023 End: 05-02-2023 take 1 capsule by mouth three times daily Pregabalin (Lyrica) 50 mg capsule Active 50 MG PO Three times daily 9 May 02, 2023 1:14pm Further refills, or attempts to titrate this down, will be in the future per the [facility] doctor. Start: 08-08-2019 End: 03-08-2023 take 1 capsule by mouth three times daily Pregabalin (Lyrica) 100 mg Capsule Discontinued 100 MG PO Three times daily August 08, 2019 12:00am March 08, 2023 12:20pm take 1 capsule by mo [facility] twice daily pregabalin (Lyrica) 100 mg capsule Take 1 capsule (100 mg) by mouth 2 times a day. For neuropathy Active take 1 capsule by mo ut every twenty-four hours Lyrica 75 MG 1 capsule Orally Once a day Active spironolactone 25 mg oral tablet (1 source) Aldosterone Antagonist take 1 tablet by mouth once daily spironolactone (Aldactone) 25 mg tablet Take 1 tablet (25 mg) by mouth once daily. Active tamsulosin hydrochloride 0.4 mg oral capsule (20 sources) alpha-Adrenergic Eric Start: 02-28-19 take 1 capsule by mouth every twenty-four hours in the morning tamsulosin (Flomax) 0.4 MG 24 hr capsule Indications: Gout, unspecified cause, unspecified chronicity, unspecified site Take 1 capsule (0.4 mg) by mouth in the morning. 90 capsule 3 02/28/2023 Active Start: 12-22-2022 take 1 capsule by mo ut once daily at mealtime 0.4 mg, oral, Daily, First dose on Mon11/22/23 at 2000, Give 30 minutes after the same mealtime each day. Capsules should be swallowed whole; do not crush, chew, or open. traZODone hydrochloride 50 mg oral tablet (17 sources) Serotonin Reuptake Inhibitor Start: 03-08-2023 take 50 mg by mouth once daily at bedtime Trazodone Active 50 MG PO Daily at bedtime March 08, 2023 1:00am Consider gently titrating this down and to get off it at the [facility] Start: 02-28-2023 End: 11-07-2023 take 150 mg by mouth once daily Trazodone Discontinued 150 MG PO Daily February 28, 2023 1:00am March 08, 2023 12:20pm vortioxetine 10 mg oral tablet (20 sources) Start: 03-02-2018 take 1 tablet by mouth in the morning Vortioxetine HBr (Trintellix) 10 MG tablet Indications: Major depression, chronic (CMS/HCC) Take 1 tablet by mouth in the morning. 90 tablet 3 02/28/2023 Active zinc gluconate 50 mg oral tablet (1 source) zinc gluconate 5 0 mg elemental tablet Take by mouth once daily. Active Completed/Discontinued Medications Medication Drug Class(es) Dates Sig (Normalized) Sig (Original) acetaminophen 250 mg / aspirin 250 mg / caffeine 65 mg oral tablet (6 sources) Platelet Aggregation Inhibitor, Nonsteroidal Anti-inflammatory Drug, Central Nervous System Stimulant, Methylxanthine Start: 01-03-2023 End: 02-28-2023 take 1 tablet by mouth every four to six hours Aspirin-Acetamino phen-Caffeine (Excedrin Migraine) 250-250-65 mg Tablet Discontinued 1 TAB PO EVERY 4-6 HOURS January 03, 2023 1:00am February 28, 2023 4:39pm acetaminophen 325 mg / oxyCODONE hydrochloride 5 mg oral tablet (18 sources) Opioid Agonist Start: 03-02-2018 End: 03-07-2018 take 1 tablet by mouth every four to six hours Oxycodone-Acetami nophen (Percocet) 5-325 mg tablet Discontinued 1 TAB PO EVERY 4-6 HOURS 02 07March 02, 2018 March 07, 2018 1:02am albuterol 0.83 mg/ml inhalation solution (15 sources) beta2-Adrenergic Agonist Start: 12-19-2022 End: 02-28-2023 take 2.5 mg by inhalation twice daily Albuterol Sulfate Discontinued 2.5 MG INHALATION Twice daily December 19, 2022 1:00am February 28, 2023 4:39pm End: 11-07-2023 albuterol 2.5 mg /3 mL (0.08 3 %) nebulizer solution Take 3 mL (2.5 mg) by nebulization. 11/07/2023 Discontinued (Therapy completed) Aspir-81 81 MG (1 source) take 1 tablet by mouth once daily Aspir-81 81 MG 1 tablet Orally Once a day Not-Taking aspirin-acetaminop hen-caffeine (1 source) Start: 04-27-19 End: 05-02-19 take 2 tablets by mouth twice daily aspirin-acetaminoph en-caffeine Discontinued 2 TAB PO Twice daily April 27, 2023 12:00am May 02, 2023 1:11pm calcium chloride 0.0014 meq/ml / potassium chloride 0.004 meq/ml / sodium chloride 0.103 meq/ml / sodium lactate 0.028 meq/ml injectable solution (1 source) Start: 11-22-19 End: 11-23-19 take 50 mL intravenously every hour 50 mL/hr, intravenous, Continuous, Starting on Mon11/22/23 at 1600, Recovery (only) celecoxib 200 mg oral capsule (19 sources) Nonsteroidal Anti-inflammatory Drug Start: 03-02-19 End: 12-23-19 take 200 mg by mouth once daily Celecoxib Discontinued 200 MG PO Daily March 02, 2018 1:00am December 22, 2022 3:44pm take 1 capsule by [facility] every twelve hours CeleBREX 200 mg 1 capsule Orally Twice a day Active colchicine 0.6 mg oral tablet (18 sources) Start: 09-10-2021 End: 12-22-2022 take 0.6 mg by mouth twice daily Colchicine Discontinued 0.6 MG PO Twice daily September 10, 2021 12:00am December 22, 2022 3:44pm Start: 09-10-2021 take 1.2 mg by mouth once juan m y Colchicine (Gout) Active 1.2 MG PO Daily September 09, 2021 11:00pm Start: 09-10-2021 take 0.6 mg by mouth once juan m y Colchicine (Gout) Active 0.6 MG PO Daily September 10, 2021 12:00am dexamethasone 6 mg oral tablet (20 sources) Corticosteroid Start: 11-03-2022 End: 11-20-2022 take 6 mg by mouth once daily Dexamethasone Discontinued 6 MG PO Daily 9 9 November 03, 2022 6:20pm November 20, 2022 10:07am dextromethorphan hydrobromide 2 mg/ml / guaiFENesin 20 mg/ml oral solution (12 sources) Uncompetitive J-zalwhp-J-aspartat e Receptor Antagonist, Sigma-1 Agonist Start: 11-03-2022 End: 11-20-2022 take 1 mL by mouth every eight hours Dextromethorphan-Gu aifenesin Discontinued 10 ML PO Q8H 0 November 03, 2022 12:00am November 20, 2022 10:08am diphenhydrAMINE hydrochloride 50 mg oral capsule (20 sources) Histamine-1 Receptor Antagonist Start: 12-19-2022 End: 02-28-2023 take 1 capsule by mouth once daily at bedtime Diphenhydramine Hcl (Banophen) 50 mg Capsule Discontinued 50 MG PO Daily at bedtime January 03, 2023 1:00am January 03, 2023 11:08am Start: 10-26-2022 End: 10-27-2022 take 1 capsule by mouth at bedtime Diphenhydramine Hcl (Banophen) 50 mg capsule Discontinued 50 MG PO Bedtime October 26, 2022 12:00am October 27, 2022 6:10pm take 1 capsule by [facility] every six hours as needed diphenhydrAMINE (BENADryl) 50 mg capsule Take 1 capsule (50 mg) by mouth every 6 hours if needed for itching. 0 Active take 1 capsule by mo ut every twenty-four hours Banophen 50 MG 1 capsule at bedtime as needed Orally Once a day for 30 day(s) Active Durolane (1 source) Start: 03-20-2018 Durolane 2018 60 mg famotidine 40 mg oral tablet (20 sources) Histamine-2 Receptor Antagonist Start: 04-27-2023 End: 05-02-2023 take 40 mg by mouth once daily Famotidine Discontinued 40 MG PO Daily April 27, 2023 12:00am May 02, 2023 1:11pm Start: 08-08-2019 End: 11-07-2023 take 40 mg by mouth once daily at bedtime Famotidine Discontinued 40 MG PO Daily at bedtime November 20, 2022 12:00am March 08, 2023 12:20pm fluticasone propionate 0.05 mg/actuat metered dose nasal spray (3 sources) Corticosteroid Start: 04-27-2024 End: 09-17-2024 fluticasone (Flonase) 50 mcg/actuation nasal spray 04/27/2024 09/17/2024 Discontinued (Discontinued by another clinician) gabapentin 300 mg oral capsule (18 sources) Anti-epileptic Agent Start: 03-02-2018 End: 08-08-2019 Gabapentin Discontinued March 02, 2018 1:00am August 08, 2019 2:49pm 12 hr guaiFENesin 600 mg extended release oral tablet (12 sources) Start: 11-03-2022 End: 11-20-2022 take 1 tablet by mouth twice daily, then take 1 tablet by mouth every twelve hours Guaifenesin (Mucinex) 600 mg Tablet Extended Release 12hr Discontinued 600 MG PO Twice daily 0 November 03, 2022 12:00am November 20, 2022 10:08am hydroCHLOROthiazide 12.5 mg oral capsule (20 sources) Thiazide Diuretic Start: 12-19-2022 End: 12-22-2022 take 12.5 mg by mouth once daily in the morning Hydrochlorothiazide Discontinued 12.5 MG PO Every morning December 19, 2022 1:00am December 22, 2022 3:44pm Start: 03-02-2018 End: 10-27-2022 take 12.5 mg by mouth once daily Hydrochlorothiazide Discontinued 12.5 MG PO Daily March 02, 2018 1:00am October 27, 2022 6:10pm 1 ml HYDROmorphone hydrochloride 1 mg/ml cartridge (1 source) Opioid Agonist Start: 11-22-2023 End: 11-22-2023 0.5 mg, intravenous, Every 5 min PRN, pain severe (7-10), first line, Starting on Mon11/22/23 at 1535, For 2 doses, Recovery (only), Max total of 1 mg regardless of dose. loperamide hydrochloride 2 mg oral capsule (8 sources) Opioid Agonist End: 11-07-2023 take 1 capsule by mouth four times daily as needed for diarrhea loperamide (Imodium) 2 mg capsule Take 1 capsule (2 mg) by mouth 4 times a day as needed for diarrhea. 11/07/2023 Discontinued (Therapy completed) morphine sulfate 15 mg oral tablet (20 sources) Opioid Agonist Start: 08-08-2019 End: 12-22-2022 take 1 tablet by mouth twice daily Morphine (Ms Contin) 15 mg tablet extended release Discontinued 15 MG PO Twice daily August 08, 2019 12:00am December 22, 2022 3:44pm Start: 08-08-2019 End: 08-08-2019 take 15 mg by mouth every twelve hours Morphine Discontinued 15 MG PO Every 12 hours August 08, 2019 12:00am August 08, 2019 6:22pm take 1 tablet by [place] th every four hours Morphine Sulfate 15 MG 1 tablet as needed Orally every 4 hrs Active oxygen (O2) therapy (1 source) Start: 11-22-2023 End: 11-22-2023 take 1 dose by inhalation once inhalation, Once, On Mon11/22/23 at 1600, For 1 dose, Recovery (only), Device: Nasal Cannula, Rate in liters per minute: Other, Custom Value: 1-6 LPM, Keep O2 Sat Above: 92% pantoprazole 40 mg delayed release oral tablet (20 sources) Proton Pump Inhibitor Start: 03-08-2023 End: 09-17-2024 take 1 tablet by mouth in the morning for gastroesophageal reflux disease pantoprazole (ProtoNix) 40 mg EC tablet Take 1 tablet (40 mg) by mouth early in the morning.. For GERD 03/08/2023 09/17/2024 Discontinued (Discontinued by another clinician) predniSONE 20 mg oral tablet (14 sources) Start: 10-30-2022 End: 11-03-2022 take 40 mg by mouth once daily, then take 20 mg by mouth once daily, then take 10 mg by mouth once daily Prednisone Discontinued 40 MG PO Daily October 30, 2022 12:00am November 03, 2022 2:42pm 40 mg daily for 5 days then 20 mg daily for 5 days and then 10 mg daily for 5 days. regadenoson (Lexiscan) injection 0.4 mg (2 sources) Start: 01-25-2023 End: 01-25-2023 regadenoson (Lexiscan) injection 0.4 mg sennosides, alf 8.6 mg oral tablet (8 sources) End: 11-07-2023 take 1 tablet by mouth once daily sennosides (Senokot) 8.6 mg tablet Take 1 tablet (8.6 mg) by mouth once daily. 11/07/2023 Discontinued (Therapy completed) Triamcinolone (1 source) Corticosteroid Start: 03-05-2018 Kenalog -40 mg Feb, 40 mg verapamil hydrochloride 40 mg oral tablet (14 sources) Calcium Channel Eric Start: 10-27-2022 End: 12-22-2022 take 40 mg by mouth once daily in the morning Verapamil Discontinued 40 MG PO Every morning October 27, 2022 12:00am December 22, 2022 3:44pm Problems Active Problems Problem Classification Problem Date Documented Date Episodic/Chronic Abdominal pain (1 source) Generalized abdominal pain; Translations: [Generalized abdominal pain] Episodic Acute cerebrovascular disease (9 sources) Occipital cerebral infarction; Translations: [Cerebral infarction, unspecified] Onset: 4 03-06-2023 Chronic Anxiety disorders (20 sources) Anxiety disorder; Translations: [Anxiety disorder, unspecified] Onset: 3 08-24-2022 Chronic Cancer of head and neck (20 sources) Malignant tumor of parotid gland; 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] Onset: 4 11-23-2023 Chronic Chronic kidney disease (7 sources) Chronic kidney disease stage 3; Translations: [Chronic renal impairment, stage 3 (moderate) (Multi)] Onset: 4 11-22-2023 Chronic Chronic obstructive pulmonary disease and bronchiectasis (20 sources) Chronic obstructive lung disease; Translations: [Chronic obstructive pulmonary disease, unspecified] Onset: 3 08-24-2022 Chronic Coagulation and hemorrhagic disorders (20 sources) Platelet count below reference range; Translations: [Thrombocytopenia, unspecified] Onset: 3 09-10-2021 Chronic Congestive heart failure; nonhypertensive (19 sources) Acute exacerbation of chronic congestive heart failure; Translations: [Heart failure, unspecified] Onset: 4 02-28-2023 Chronic Coronary atherosclerosis and other heart disease (20 sources) Coronary arteriosclerosis; Translations: [Atherosclerotic heart disease of [place] coronary artery without angina pectoris] Onset: 3 08-09-2019 Chronic Delirium, dementia, and amnestic and other cognitive disorders (20 sources) Dementia; Translations: [Unspecified dementia without behavioral disturbance] Onset: 3 01-17-2023 Chronic Disorders of lipid metabolism (20 sources) Mixed hyperlipidemia; Translations: [Mixed hyperlipidemia] Onset: 3 01-17-2023 Chronic Esophageal disorders (20 sources) Gastroesophageal reflux disease without esophagitis; Translations: [Gastro-esophageal reflux disease without esophagitis] Onset: 3 08-24-2022 Chronic Essential hypertension (20 sources) Hypertensive disorder; Translations: [Essential (primary) hypertension] Onset: 3 10-27-2022 Chronic Gout and other crystal arthropathies (20 sources) Primary gout; Translations: [Idiopathic gout, right knee] Onset: 4 10-27-2022 Chronic Headache; including migraine (20 sources) Headache; Translations: [Headache] 09-10-2021 Episodic Hyperplasia of prostate (7 sources) Benign prostatic hyperplasia; Translations: [Benign prostatic hyperplasia without lower urinary tract symptoms] Onset: 4 11-22-2023 Chronic Hypertension with complications and secondary hypertension (1 source) Chronic kidney disease stage 3A ; Translations: [Hypertensive chronic kidney disease with stage 1 through stage 4 chronic kidney disease, or unspecified chronic kidney disease] 09-14-2024 Chronic Malaise and fatigue (20 sources) Asthenia; Translations: [Weakness] Onset: 3 08-08-2019 Episodic Malignant neoplasm without specification of site (2 sources) Malignant (primary) neoplasm, unspecified; Translations: [Malignant (primary) neoplasm, unspecified (Multi)] Onset: 4 Chronic Mood disorders (10 sources) Major depressive disorder; Translations: [Major depressive disorder, single episode, unspecified] Onset: 4 02-28-2023 Chronic Neoplasms of unspecified nature or uncertain behavior (9 sources) Monoclonal gammopathy (clinical); Translations: [Monoclonal gammopathy] Onset: 4 03-07-2023 Chronic Nephritis; nephrosis; renal sclerosis (3 sources) Nephrotic syndrome; Translations: [Nephrotic syndrome with unspecified morphologic changes] 03-16-2023 Chronic Occlusion or stenosis of precerebral arteries (20 sources) Carotid artery stenosis; Translations: [Occlusion and stenosis of bilateral carotid arteries] Onset: 2 Resolved: 5 Chronic Osteoarthritis (20 sources) Osteoarthritis of right knee joint; Translations: [Unilateral primary osteoarthritis, right knee] Onset: 3 08-24-2022 Chronic Other and ill-defined heart disease (2 sources) Other ill-defined heart diseases; Translations: [Other ill-defined heart diseases] Onset: 3 Chronic Other circulatory disease (8 sources) Disorder of carotid artery; Translations: [Disorder of arteries and arterioles, unspecified] Onset: 5 12-23-2022 Chronic Other circulatory disease (9 sources) Disorder of arteries and arterioles, unspecified; Translations: [Unspecified disorders of arteries and arterioles] Onset: 4 12-23-2022 Chronic Other connective tissue disease (4 sources) Neuralgia; Translations: [Neuralgia and neuritis, unspecified] 03-08-2023 Episodic Other ear and sense organ disorders (1 source) Impacted cerumen in left ear; Translations: [Impacted cerumen, left ear] 06-11-2024 Episodic Other ear and sense organ disorders (2 sources) Impacted cerumen, left ear; Translations: [Impacted cerumen, left ear] Onset: 5 Episodic Other gastrointestinal disorders (1 source) Oral phase dysphagia; Translations: [Dysphagia, oral phase] Episodic Other gastrointestinal disorders (1 source) Esophageal dysphagia; Translations: [Dysphagia, pharyngoesophageal phase] Episodic Other hematologic conditions (20 sources) Raised cardiac enzyme or marker; Translations: [Other specified abnormalities of plasma proteins] 09-10-2021 Episodic Other hematologic conditions (2 sources) Other specified abnormalities of plasma proteins; Translations: [Other abnormal blood chemistry] 09-10-2021 Episodic Other hereditary and degenerative nervous system conditions (11 sources) 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; Translations: [Degenerative disease of nervous system, unspecified] Onset: 3 08-24-2022 Chronic Other hereditary and degenerative nervous system conditions (20 sources) Disorder of nervous system; Translations: [Degenerative disease of nervous system, unspecified] Onset: 4 11-12-2023 Chronic Other liver diseases (18 sources) Elevated liver enzymes level; Translations: [Abnormal levels of other serum enzymes] 08-08-2019 Episodic Other lower respiratory disease (20 sources) Dyspnea; Translations: [Shortness of breath] Onset: 3 01-17-2023 Episodic Other nervous system disorders (19 sources) Unable to walk; Translations: [Difficulty in walking, not elsewhere classified] 10-27-2022 Chronic Other nervous system disorders (15 sources) Chronic pain; Translations: [Other chronic pain] 10-27-2022 Chronic Other nervous system disorders (11 sources) Other chronic pain; Translations: [Other chronic pain] Onset: 4 10-26-2022 Chronic Other nervous system disorders (20 sources) Difficulty in walking, not elsewhere classified; Translations: [Difficulty in walking] Onset: 4 10-26-2022 Chronic Other nervous system disorders (20 sources) Disorder of brain; Translations: [Encephalopathy, unspecified] Onset: 4 11-02-2022 Chronic Other nervous system disorders (13 sources) Encephalopathy, unspecified; Translations: [Encephalopathy, unspecified] Onset: 3 11-03-2022 Chronic Other nervous system disorders (9 sources) Idiopathic peripheral neuropathy; Translations: [Hereditary and idiopathic neuropathy, unspecified] Onset: 3 08-24-2022 Chronic Other non-traumatic joint disorders (19 sources) Polyarthropathy; Translations: [Polyarthritis, unspecified] Onset: 4 11-12-2023 Chronic Other non-traumatic joint disorders (16 sources) Effusion of right knee joint; Translations: [Effusion, right knee] 10-26-2022 Episodic Other non-traumatic joint disorders (3 sources) Effusion, right knee; Translations: [Effusion of joint, lower leg] 10-26-2022 Episodic Other nutritional; endocrine; and metabolic disorders (20 sources) Hypomagnesemia; Translations: [Hypomagnesemia] Onset: 4 09-10-2021 Chronic Other nutritional; endocrine; and metabolic disorders (2 sources) Hypomagnesemia; Translations: [Disorders of magnesium metabolism] 09-10-2021 Chronic Other screening for suspected conditions (not mental disorders or infectious disease) (9 sources) Imaging of thorax abnormal; Translations: [Abnormal findings on diagnostic imaging of other specified body structures] Onset: 3 08-24-2022 Chronic Other upper respiratory disease (20 sources) Allergic rhinitis; Translations: [Allergic rhinitis, unspecified] Onset: 3 08-24-2022 Chronic Peripheral and visceral atherosclerosis (20 sources) Peripheral vascular disease; Translations: [Peripheral vascular disease, unspecified] Onset: 3 08-24-2022 Chronic Residual codes; unclassified (18 sources) Delirium; Translations: [Disorientation, unspecified] 09-10-2021 Episodic Residual codes; unclassified (20 sources) Confusional state; Translations: [Disorientation, unspecified] 08-08-2019 Episodic Residual codes; unclassified (18 sources) Acute confusion; Translations: [Disorientation, unspecified] 08-08-2019 Episodic Residual codes; unclassified (12 sources) Disorientation, unspecified; Translations: [Other alteration of consciousness] 09-10-2021 Episodic Residual codes; unclassified (15 sources) Unable to perform personal care activity; Translations: [Other specified health status] 11-01-2022 Episodic Residual codes; unclassified (11 sources) Insomnia; Translations: [Insomnia, unspecified] Onset: 3 08-24-2022 Episodic Residual codes; unclassified (2 sources) Edema of right lower limb; Translations: [Localized edema] Onset: 5 09-17-2024 Episodic Secondary malignancies (3 sources) Secondary malignant neoplasm of parotid gland; Translations: [Secondary malignant neoplasm of other specified sites] 12-26-2023 Chronic Secondary malignancies (2 sources) Secondary malignant neoplasm of other specified sites; Translations: [Secondary malignant neoplasm of other specified sites] Onset: 4 Chronic Substance-related disorders (20 sources) Smoker; Translations: [Nicotine dependence, unspecified, uncomplicated] Onset: 3 08-24-2022 Chronic Unclassified (1 source) Other specified health status; Translations: [Other specified health status] Onset: 3 Unclassified (1 source) Effusion, right knee; Translations: [Effusion, right knee] Onset: 3 Viral infection (19 sources) Disease caused by 2019-nCoV; Translations: [COVID-19] 11-02-2022 Episodic Viral infection (1 source) COVID-19; Translations: [COVID-19] Onset: 3 Past or Other Problems Problem Classification Problem Date Documented Da te Episodic/Chronic Acute and unspecified renal failure (20 sources) Injury of kidney; Translations: [Acute kidney failure, unspecified] Onset: 11-01-2022 10-30-2022 Episodic Administrative/social admission (20 sources) Other reduced mobility; Translations: [Impaired mobility and activities of daily living] Onset: 02-28-2023 10-27-2022 Episodic Deficiency and other anemia (5 sources) Anemia; Translations: [Anemia, unspecified] 03-02-2023 Episodic Deficiency and other anemia (5 sources) Anemia, unspecified; Translations: [Anemia, unspecified] Onset: 02-28-2023 02-28-2023 Episodic Diseases of mouth; excluding dental (20 sources) Mass of parotid gland; Translations: [Other diseases of salivary glands] Onset: 12-09-2022 01-03-2023 Episodic E Codes: Fall (16 sources) Fall; Translations: [Unspecified fall, initial encounter] Onset: 11-20-2022 11-20-2022 Episodic Fluid and electrolyte disorders (20 sources) Dehydration; Translations: [Dehydration] Onset: 11-20-2022 08-08-2019 Episodic Genitourinary symptoms and ill-defined conditions (9 sources) Proteinuria; Translations: [Proteinuria, unspecified] Onset: 02-28-2023 03-02-2023 Episodic Mood disorders (9 sources) Mood disorders Onset: 08-05-2022 Resolved: 10-11-2023 10-11-2023 Open wounds of extremities (20 sources) Injury of right foot; Translations: [Unspecified open wound, right foot, initial encounter] Onset: 04-14-2024 04-14-2024 Episodic Other connective tissue disease (20 sources) Recurrent falls ; Translations: [Repeated falls] Onset: 02-28-2023 10-26-2022 Episodic Other connective tissue disease (4 sources) Repeated falls; Translations: [History of fall] Onset: 10-26-2022 10-26-2022 Episodic Other connective tissue disease (1 source) Neuralgia and neuritis, unspecified; Translations: [Neuralgia and neuritis, unspecified] Onset: 02-28-2023 Episodic Other diseases of kidney and ureters (1 source) Other disorders of kidney and ureter in diseases classified elsewhere; Translations: [Other disorders of kidney and ureter in diseases classified elsewhere] Onset: 02-28-2023 Episodic Other gastrointestinal disorders (20 sources) Dysphagia; Translations: [Dysphagia, unspecified] Onset: 08-24-2022 08-24-2022 Episodic Other lower respiratory disease (9 sources) Nodule of lung; Translations: [Solitary pulmonary nodule] Onset: 08-24-2022 08-24-2022 Episodic Other lower respiratory disease (1 source) Shortness of breath; Translations: [Shortness of breath] Onset: 01-17-2023 Episodic Other nervous system disorders (9 sources) Paresthesia; Translations: [Paresthesia of skin] Onset: 08-24-2022 08-24-2022 Episodic Other nervous system disorders (9 sources) Skin sensation disturbance; Translations: [Unspecified disturbances of skin sensation] Onset: 10-05-2018 10-21-2022 Episodic Other non-traumatic joint disorders (18 sources) Pain in unspecified knee; Translations: [Acute knee pain] Onset: 11-20-2022 11-20-2022 Episodic Other non-traumatic joint disorders (3 sources) Pain in right knee; Translations: [Pain in joint, lower leg] Onset: 05-01-2023 04-27-2023 Episodic Other non-traumatic joint disorders (9 sources) Multiple joint pain; Translations: [Pain in unspecified joint] Onset: 08-24-2022 08-24-2022 Episodic Other nutritional; endocrine; and metabolic disorders (20 sources) Adult failure to thrive syndrome; Translations: [Adult failure to thrive] Onset: 02-28-2023 Resolved: 04-14-2024 02-28-2023 Episodic Other screening for suspected conditions (not mental disorders or infectious disease) (7 sources) Other specified abnormal findings of blood chemistry; Translations: [Other abnormal blood chemistry] 12-19-2022 Episodic Residual codes; unclassified (15 sources) Other specified health status; Translations: [Other specified conditions influencing health status] Onset: 02-28-2023 11-01-2022 Episodic Residual codes; unclassified (20 sources) Altered mental status; Translations: [Altered mental status, unspecified] Onset: 11-01-2022 11-20-2022 Episodic Residual codes; unclassified (11 sources) Altered mental status, unspecified; Translations: [Altered mental status] Onset: 12-19-2022 11-20-2022 Episodic Residual codes; unclassified (11 sources) Edema; Translations: [Edema, unspecified] Onset: 02-28-2023 02-28-2023 Episodic Screening and history of mental health and substance abuse codes (10 sources) Ex-smoker; Translations: [Personal history of nicotine dependence] Onset: 11-07-2023 11-07-2023 Episodic Syncope (3 sources) Syncope and collapse; Translations: [Syncope and collapse] Onset: 01-10-2023 01-17-2023 Episodic Unclassified (14 sources) Onset: 01-17-2023 Resolved: 11-07-2023 01-17-2023 Urinary tract infections (16 sources) Acute urinary tract infection; Translations: [Urinary tract infection, site not specified] Onset: 11-20-2022 11-20-2022 Episodic Results Test Name Value Interpretation Reference Range Facility PT Skull base to mid-thighon 02-22-2024 [facility] Radiology Study observation (narrative) [facility] No Panel Informationon 12-03 SURG1 [facility] Healthcare SURG1 SEE COMMENT [facility] SURGICAL PATHOLOGY EXAMon SURG1 Pathology report.total NO [facility] SURG1 Surgical Pathology C ase: [id number] [facility] SURG1 Authorizing Provider : Orion Etienne MD Collected: 11/22/2023 1440 [facility] SURG1 Ordering Location: [facility] Received: 11/22/2023 1443 [facility] SURG1 [facility] OR [facility] Healthcare SURG1 Pathologist: Ankur Horta DDS [facility] Healthcare SURG1 Intraop: Jan cutler MD [facility] SURG1 Specimen: PAROTID RESECTION LEFT, LEFT SUPERFICIAL PAROTID [facility] SURG1 Path report.final diagnosis [facility] SURG1 Parotid, left, super ficial parotidectomy: [facility] SURG1 - 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 [facility] SURG1 - Margins are negati ve, closest: Deep and superficial superior (less than 0.1 cm). [facility] SURG1 Negative [facility] SURG1 Note: While this is most likely consistent with a metastasis, a primary parotid malignancy cannot entirely be ruled out. Clinical correlation is recommended. [facility] SURG1 learning and development consultant: Dr Rama Walls. [facility] Healthcare SURG1 Electronically rosy d by Ankur Horta DDS on 12/04/2023 at 11:14 AM [facility] SURG Laboratory comment [facility] SURG1 By the signature on this report, the individual or group listed as making the Final Interpretation/Diagnosis certifies that they have reviewed this case. [facility] SURG1 RESIDENT REVIEW [facility] SURG The gross and/or microscopic findings were reviewed in conjunction with pathology resident, Ewa Ni MD. 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 [facility] Healthcare SURG1 [facility] SURG1 Summary of Cassettes: [facility] S [facility] SURG1 Specimen Label Site [facility] SURG1 A 1 Frozen portion, taken from section 2 of specimen, containing largest mass [facility] SURG1 2 Most superior sect ion 1, cut perpendicular to serial sections [facility] SURG1 3-11 One section per cassette in order from superior section 2 to inferior section 10 [facility] SURG1 12 Most inferior sec tion 11, cut perpendicular to serial sections [facility] SURG1 A: Received Date and Time: 11/22/23 Called Date and Time: 11/22/23 at 3:13 [facility] SURG1 Intraoperative Diagnosis: [facility] SURG1 Squamous cell carcinoma. 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] Original Ordering Provider: ORION ETIENNE [employer] [facility] Glucose Test strip manual (B ld) [Mass/Vol]on 11-23-2023 Glucose [Mass/Vol] 91 mg/dL 74 - 99 mg/dL [facility] Interpretation and review of laboratory results Normal [facility] Glucose [Mass/Vol] 91 mg/dL Normal 74-99 [facility] Comment on above: Performed By: #### 2 341-6 #### MONICA Ramirez ([id number]) [facility] ([facility]) [address] [place] [address] Glucose [Mass/Vol] 164 mg/dL High 74 - 99 mg/dL [facility] Interpretation and review of laboratory results Abnormal [facility] Glucose [Mass/Vol] 164 mg/dL High 74-99 [facility] Comment on above: Performed By: #### 2 341-6 #### MONICA Ramirez ([id number]) [facility] ([facility]) [address] [place] [address] GLUCOSE-POCTon 11-23-2023 Glucose [Mass/Vol] 164 mg/dL High 74 - 99 mg/dL [facility] Interpretation and review of laboratory results Abnormal [facility] Original Ordering Provider: ORION DURBINZarbee'sHOME [facility] Surgical pathology studyon 1 Surgical pathology study Pathology report.total SEE COMMENT Surgical Pathology Case: [id number] Authorizing Provider: Orion Etienne MD Collected: 11/22/2023 1440 Ordering Location: [facility] Received: 11/22/2023 1443 [facility] [place] Pathologist: Ankur Horta DDS Intraop: Jan [...] be ruled out. Clinical correlation is recommended. learning and development consultant: Dr. Gabriel Walls. Laboratory comment By [...] specimen is submitted entirely in 12 cassettes. [facility] Summary of Cassettes: Specimen Label Site [...] carcinoma. 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] ALL CBC WITH AUTO DIFFon Erythrocyte distribution width (RBC) [Ratio] 14.0 % 11.5 - 14.5 % [facility] Hematocrit (Bld) [Volume fraction] 42.9 % 41.0 - 52.0 % [facility] Hemoglobin (Bld) [Mass/Vol] 14.3 g/dL 13.5 - 17.5 g/dL [facility] Interpretation and review of laboratory results Abnormal [facility] MCH (RBC) [Entitic mass] 34.3 pg High 26.0 - 34.0 pg [facility] MCHC (RBC) [Mass/Vol] 33.3 g/dL 32.0 - 36.0 g/dL [facility] MCV (RBC) [Entitic vol] 103 fL High 80 - 100 fL [facility] NUCLEATED RBC 0.0 [facility] PLT 130 Low [facility] RBC 4.17 Low [facility] WBC 9.3 [facility] Original Ordering Provider: ORION LOWE [facility] Basic metabolic 2000 panelon 11-15-2023 Anion gap [Moles/Vol] 15 mmol/L Normal 10-20 [facility] Comment on above: Performed By: #### 2 4321-2 #### MONICA Ramirez ([id number]) [facility] ([facility]) [address] [place] [address] Calcium [Mass/Vol] 9.7 mg/dL Normal 8.6-10.6 [facility] Comment on above: Performed By: #### 2 4321-2 #### MONICA Ramirez ([id number]) [facility] ([facility]) [address] [place] [address] Chloride [Moles/Vol] 99 mmol/L Normal 98-107 [facility] Comment on above: Performed By: #### 2 4321-2 #### MONICA JENKINSER L ([id number]) [facility] ([facility]) [address] [place] [address] CO2 [Moles/Vol] 33 mmol/L High 21-32 [facility] Comment on above: Performed By: #### 2 4321-2 #### MONICA MALDONADO L ([id number]) [facility] ([facility]) [id number] [place] [address] Creatinine [Mass/Vol] 1.57 mg/dL High 0.50-1.30 [facility] Comment on above: Performed By: #### 2 4321-2 #### MONICA Ramirez ([id number]) [facility] ([facility]) [address] [place] [address] Glomerular filtration rate/1.73 sq M.predicted 45 mL/min/1.73m*2 Low >60 [facility] Comment on above: Result Comment: Calc ulations of estimated GFR are performed using the 2020 CKD-EPI Study Refit equation without the race variable for the IDMS-Traceable creatinine methods. https://jasn.asnjournals.org/content//ASN.37281 08519 Performed By: #### 2 4321-2 #### MONICA MALDONADO L ([id number]) [facility] ([facility]) [address] [place] [address] Glucose [Mass/Vol] 39 mg/dL Critically low 74-99 [facility] Comment on above: Performed By: #### 2 4321-2 #### MONICA MALDONADO L ([id number]) [facility] ([facility]) [address] [place] [address] Potassium [Moles/Vol] 4.3 mmol/L Normal 3.5-5.3 [facility] Comment on above: Performed By: #### 2 4321-2 #### MONICA Ramirez ([id number]) [facility] ([facility]) [id number] [place] [address] Sodium [Moles/Vol] 143 mmol/L Normal 136-145 [facility] Comment on above: Performed By: #### 2 4321-2 #### MONICA Ramirez ([id number]) [facility] ([facility]) [address] [place] [address] Urea nitrogen [Mass/Vol] 41 mg/dL High 6-23 [facility] Comment on above: Performed By: #### 2 4321-2 #### MONICA Ramirez ([id number]) [facility] ([facility]) [address] [place] [address] CBC panel Auto (Bld)on 11-14 Erythrocyte distribution width (RBC) [Ratio] 14.0 % Normal 11.5-14.5 [facility] Comment on above: Performed By: #### 5 8410-2 #### MONICA Ramirez ([id number]) [facility] ([facility]) [address] [place] [address] Hematocrit (Bld) [Volume fraction] 42.9 % Normal 41.0-52.0 [facility] Comment on above: Performed By: #### 5 8410-2 #### MONICA Ramirez ([id number]) [facility] ([facility]) [address] [place] [address] Hemoglobin (Bld) [Mass/Vol] 14.3 g/dL Normal 13.5-17.5 [facility] Comment on above: Performed By: #### 5 8410-2 #### MONICA Ramirez ([id number]) [facility] ([facility]) [address] [place] [address]17 MCH (RBC) [Entitic mass] 34.3 pg High 26.0-34.0 [facility] Comment on above: Performed By: #### 5 8410-2 #### MONICA Ramirez ([id number]) [facility] ([facility]) [address] [place] [address] MCHC (RBC) [Mass/Vol] 33.3 g/dL Normal 32.0-36.0 [facility] Comment on above: Performed By: #### 5 8410-2 #### MONICA Ramirez ([id number]) [facility] ([facility]) [address] [place] [address] 21666 MCV (RBC) [Entitic vol] 103 fL High 80-100 [facility] Comment on above: Performed By: #### 5 8410-2 #### MONICA Ramirez ([id number]) [facility] ([facility]) [id number] [place] [address] 15703 Nucleated RBC/100 WBC (Bld) [Ratio] 0.0 /100 WBCs Normal 0.0-0.0 [facility] Comment on above: Performed By: #### 5 8410-2 #### MONICA Ramirez ([id number]) [facility] ([facility]) [address] [place] [address]158 Platelets (Bld) [#/Vol] 130 x10*3/uL Low 150-450 [facility] Comment on above: Performed By: #### 5 8410-2 #### MONICA Ramirez ([id number]) [facility] ([facility]) [address] [place] [address] 76702 RBC (Bld) [#/Vol] 4.17 x10*6/uL Low 4.50-5.90 [facility] Comment on above: Performed By: #### 5 8410-2 #### MONICA MALDONADO L ([id number]) [facility] ([facility]) [address] [place] [address] 14707 WBC (Bld) [#/Vol] 9.3 x10*3/uL Normal 4.4-11.3 [facility] Comment on above: Performed By: #### 5 8410-2 #### MONICA Ramirez ([id number]) [facility] ([facility]) [address] [place] [address] ECG 12 Leadon 11-07-2023 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 [facility] Eosinophils (Bld) [#/Vol] 0.4 10*3/uL [facility] Eosinophils/100 WBC (Bld) 6 % Not Estab. [facility] Erythrocyte distribution width (RBC) [Ratio] 13.6 % 11.6 - 15.4 % [facility] Hematocrit (Bld) [Volume fraction] 42.1 % 37.5 - 51.0 % [facility] Hemoglobin (Bld) [Mass/Vol] 14.0 g/dL 13.0 - 17.7 g/dL [facility] Immature granulocytes (Bld) [#/Vol] 0.0 10*3/uL [facility] Immature granulocytes/100 WBC (Bld) 0 % Not Estab. [facility] Lymphocytes (Bld) [#/Vol] 1.8 10*3/uL [facility] Lymphocytes/100 WBC (Bld) 23 % Not Estab. [facility] MCH (RBC) [Entitic mass] 33.9 pg High 26.6 - 33.0 pg [facility] MCHC (RBC) [Mass/Vol] 33.3 g/dL 31.5 - 35.7 g/dL [facility] MCV (RBC) [Entitic vol] 102 fL High 79 - 97 fL [facility] Monocytes (Bld) [#/Vol] 0.7 10*3/uL [facility] Monocytes/100 WBC (Bld) 8 % Not Estab. [facility] Neutrophils (Bld) [#/Vol] 4.9 10*3/uL [facility] Neutrophils/100 WBC (Bld) 63 % Not Estab. [facility] Platelets (Bld) [#/Vol] 127 10*3/uL Low [facility] RBC (Bld) [#/Vol] 4.13 10*6/uL Low [facility] WBC (Bld) [#/Vol] 7.9 10*3/uL [facility] Comprehensive metabolic pane negro 10-12-2023 Albumin [Mass/Vol] 4.3 g/dL 3.8 - 4.8 g/dL [facility] ALP [Catalytic activity/Vol] 83 U/L [facility] ALT [Catalytic activity/Vol] 16 U/L [facility] AST [Catalytic activity/Vol] 18 U/L [facility] Bilirubin [Mass/Vol] 0.4 mg/dL 0.0 - 1 .2 mg/dL [facility] Calcium [Mass/Vol] 9.4 mg/dL 8.6 - 10. 2 mg/dL [facility] Chloride [Moles/Vol] 104 mmol/L 96 - 10 6 mmol/L [facility] CO2 [Moles/Vol] 29 mmol/L 20 - 29 mmol/L [facility] Creatinine [Mass/Vol] 1.46 mg/dL High 0.76 - 1.27 mg/dL [facility] GFR/1.73 sq M.predicted among non-blacks MDRD (S/P/Bld) [Vol rate/Area] 49 mL/min/{1.73_m2} Low 59 - PINF mL/min/1.7 3 [facility] Globulin (S) [Mass/Vol] 3.1 g/dL 1.5 - 4.5 g/dL [facility] Glucose [Mass/Vol] 72 mg/dL 70 - 99 mg/dL [facility] Potassium [Moles/Vol] 4.4 mmol/L 3.5 - 5.2 mmol/L [facility] Protein [Mass/Vol] 7.4 g/dL 6.0 - 8.5 g/dL [facility] Sodium [Moles/Vol] 146 mmol/L High 134 - 144 mmol/L [facility] Urea nitrogen [Mass/Vol] 34 mg/dL High 8 - 27 mg/dL [facility] Urea nitrogen/Creatinine [Mass ratio] 23 mg/mg 10 - 24 [facility] Lipid 1996 panelon 4 Cholesterol [Mass/Vol] 131 mg/dL 100 - 199 mg/dL [facility] Cholesterol in HDL [Mass/Vol] 51 mg/dL 39 - PINF mg/dL [facility] Cholesterol in LDL [Mass/Vol] 65 mg/dL 0 - 99 mg/dL [facility] Cholesterol in VLDL [Mass/Vol] 15 mg/dL 5 - 40 mg/dL [facility] Triglyceride [Mass/Vol] 76 mg/dL 0 - 149 mg/dL [facility] No Panel Informationon 10-11 Interpretation and review of laboratory results Abnormal [facility] Performed at: [address] [id number] Community Development Aide: Ed Aparicio PhD, Phone: [phone] [facility] PSAon 10-12-2023 Prostate specific Ag [Mass/Vol] 0.5 ng/mL 0.0 - 4.0 ng/mL [facility] Comment on above: [place] ECLIA methodol ogy. According to the [place] [employer], Serum PSA should decrease and remain at undetectable levels after radical prostatectomy. The AUA defines biochemical recurrence as an initial PSA value 0.2 ng/mL or greater followed by a subsequent confirmatory PSA value 0.2 ng/mL or greater. Values obtained with different assay methods or kits cannot be used interchangeably. Results cannot be interpreted as absolute evidence of the presence or absence of malignant disease. Uric acidon 10-12-2023 Urate [Mass/Vol] 6.2 mg/dL 3.8 - 8.4 mg/dL [facility] Comment on above: Therapeutic target f or gout patients: <6.0 Anisocytosis [Presence] in B lood by Light microscopyOrdered By: Celeste Alfonso on 05-02-2023 Anisocytosis Ql (Bld) Slight Normal [facility] Comment on above: Performed By: #### S CAN CBC, BMP ####[facility] [id number] Automated basophil %Ordered By: Celeste Alfonso on 05-02-2023 Basophils/100 WBC (Bld) 1.0 % Normal . [facility] Comment on above: Performed By: #### S CAN CBC, BMP ####[facility] [id number] [place] [id number] [facility] Automated basophil countOrde red By: Celeste Alfonso on 05-02-2023 Basophils (Bld) [#/Vol] 0.1 10*3/uL Normal 0.0-0.2 [facility] Comment on above: Result Comment: PERF ORMED BY:[address] [place], [place] [phone] MEDICAL DIRECTORANNIKA NOGUEIRA M.D. Performed By: #### S CAN CBC, BMP ####[address] Automated blood monocyte cou ntOrdered By: Celeste Alfonso on 05-02-2023 Monocytes (Bld) [#/Vol] 0.4 10*3/uL Normal 0.0-0.8 [facility] Comment on above: Performed By: #### S CAN CBC, BMP ####[address] Automated eosinophil %Ordere d By: Celeste Alfonso on 05-02-2023 Eosinophils/100 WBC (Bld) 5.6 % Normal . [facility] Comment on above: Performed By: #### S CAN CBC, BMP ####[address] Automated eosinophil countOr dered By: Celeste Alfonso on 05-02-2023 Eosinophils (Bld) [#/Vol] 0.3 10*3/uL Normal 0.0-0.45 [facility] Comment on above: Performed By: #### S CAN CBC, BMP ####[address] Automated monocyte %Ordered By: Celeste Alfonso on 05-02-2023 Monocytes/100 WBC (Bld) 7.2 % Normal . [facility] Comment on above: Performed By: #### S CAN CBC, BMP ####[address] Automated neutrophil %Ordere d By: Celeste Kaden on 05-02-2023 Neutrophils/100 WBC (Bld) 55.3 % Normal . [facility] Comment on above: Performed By: #### S CAN CBC, BMP ####[place] [address] [place] [address] [facility] Basic Metabolic Panelon 04-13 Creatinine Clr Calc Pharmacy 55.33 Normal [facility] Comment on above: Result Comment: PERF ORMED BY:[address] [place], [place] [id number] MEDICAL DIRECTORANNIKA NOGUEIRA M.D. Performed By: #### S CAN CBC, BMP ####[address] [address] [facility] GFR/1.73 sq M.predicted MDRD (S/P/Bld) [Vol rate/Area] 56.581 mL/min/{1.73_m2} Normal [facility] Comment on above: Performed By: #### S CAN CBC, BMP ####[address] [address] [facility] Calcium [Mass/volume] in Ser um or PlasmaOrdered By: Celeste Alfonso on 05-02-2023 Calcium [Mass/Vol] 8.9 mg/dL Normal 8.6-10.3 [facility] Comment on above: Performed By: #### S CAN CBC, BMP ####[address] [address] [facility] Carbon dioxide, total [Moles /volume] in Serum or PlasmaOrdered By: Celeste Alfonso on 05-02-2023 CO2 [Moles/Vol] 28.1 mmol/L Normal 21.0-31.0 [facility] Comment on above: Performed By: #### S CAN CBC, BMP ####[address] [address] [place] Chloride [Moles/volume] in S sammy or PlasmaOrdered By: Celeste Alfonso on 05-02-2023 Chloride [Moles/Vol] 105 mmol/L Normal 98-107 [facility] Comment on above: Performed By: #### S CAN CBC, BMP ####[address] [address] [place] Creatinine [Mass/volume] in Serum or PlasmaOrdered By: Celeste Alfonso on 05-02-2023 Creatinine [Mass/Vol] 1.30 mg/dL Normal 0.70-1.30 [facility] Comment on above: Performed By: #### S CAN CBC, BMP ####[place] [address] Erythrocyte distribution wid th [Ratio] by Automated countOrdered By: Celeste Alfonso on 05-02-2023 Erythrocyte distribution width (RBC) [Ratio] 18.6 % High 12.0-14.8 [facility] Comment on above: Performed By: #### S CAN CBC, BMP ####[place] [address] [place] [id number] [facility] Erythrocytes [#/volume] in B lood by Automated countOrdered By: Celeste Alfonso on 05-02-2023 RBC (Bld) [#/Vol] 3.51 10*6/uL Low 3.90-5.60 [facility] Comment on above: Performed By: #### S CAN CBC, BMP ####[place] [address] [place] [id number] [facility] Glucose [Mass/volume] in Ser um or PlasmaOrdered By: Celeste Alfonso on 05-02-2023 Glucose [Mass/Vol] 187 mg/dL High 70-100 [facility] Comment on above: ADA recommended refe rence rangeRandom Glucose Reference Range is dependent on time and content of last meal. Glucose of more than 200 mg/dL in a nonstressed, ambulatory subject supports the diagnosis of Diabetes Mellitus. Result Comment: [place] [facility] Glucose Reference Range is dependent on time and content of last meal. Glucose of more than 200 mg/dL in a nonstressed, ambulatory subject supports the diagnosis of Diabetes Mellitus. ADA recommended reference range Performed By: #### S CAN CBC, BMP ####[place] [address] [place] [id number] [facility] Hematocrit [Volume Fraction] of Blood by Automated countOrdered By: Celeste Alfonso on 05-02-2023 Hematocrit (Bld) [Volume fraction] 34.1 % Low 38.8-50.0 [facility] Comment on above: Performed By: #### S CAN CBC, BMP ####[address] Hemoglobin [Mass/volume] in BloodOrdered By: Celeste Alfonso on 05-02-2023 Hemoglobin (Bld) [Mass/Vol] 11.2 g/dL Low 13.0-17.0 [facility] Comment on above: Performed By: #### S CAN CBC, BMP ####[place] [id number] [facility] Leukocytes [#/volume] correc michelle for nucleated erythrocytes in Blood by Automated counOrdered By: Celeste Alfonso on 05-02-2023 WBC corrected for nucl RBC Auto (Bld) [#/Vol] 5.9 10*3/uL 4.1-10.5 [facility] Leukocytes [#/volume] in Blo od by Automated countOrdered By: Celeste Alfonso on 05-02-2023 WBC (Bld) [#/Vol] 5.9 10*3/uL Normal 4.1-10.5 [facility] Comment on above: Performed By: #### S CAN CBC, BMP ####[address] Lymphocytes [#/volume] in Bl ood by Automated countOrdered By: Celeste Alfonso on 05-02-2023 Lymphocytes (Bld) [#/Vol] 1.8 10*3/uL Normal 1.00-4.8 [facility] Comment on above: Performed By: #### S CAN CBC, BMP ####[place] [id number] [facility] Lymphocytes/100 leukocytes i n Blood by Automated countOrdered By: Celeste Alfonso on 05-02-2023 Lymphocytes/100 WBC (Bld) 30.9 % Normal . [facility] Comment on above: Performed By: #### S CAN CBC, BMP ####[place] [id number] [facility] MCH [Entitic mass] by Automa michelle countOrdered By: Celeste Alfnoso on 05-02-2023 MCH (RBC) [Entitic mass] 31.9 pg Normal 27.5-35.2 [facility] Comment on above: Performed By: #### S CAN CBC, BMP ####[facility] [id number] MCHC Auto (RBC) [Mass/Vol]Or dered By: Celeste Alfonso on 05-02-2023 MCHC (RBC) [Mass/Vol] 32.8 g/dL 32.5-35.6 [facility] MCV [Entitic volume] by Auto mated countOrdered By: Celeste Alfonso on 05-02-2023 MCV (RBC) [Entitic vol] 97.2 fL Normal 83.5-101 [facility] Comment on above: Performed By: #### S CAN CBC, BMP ####[place] [id number] Microcytes LM Ql (Bld)Ordere d By: Celeste Alfonso on 05-02-2023 Microcytes Ql (Bld) Slight [facility] Neutrophils [#/volume] in Bl ood by Automated countOrdered By: Celeste Alfonso on 05-02-2023 Neutrophils (Bld) [#/Vol] 3.3 10*3/uL Normal 1.8-7.7 [facility] Comment on above: Performed By: #### S CAN CBC, BMP ####[facility] [id number] [place] [address] No Panel InformationOrdered By: Celeste Alfonso on 05-02-2023 Estimated GFR (CKD-EPI) 56.581 mL/Min [facility] Creatinine Clearance (Chem 55.33 [facility] Nucleated erythrocytes [Pres ence] in Blood by Automated countOrdered By: Celeste Alfonso on 05-02-2023 Nucleated RBC Auto Ql (Bld) 0.4 /100{WBC} 0-0.5 [facility] Ovalocyte detectionOrdered B y: Celeste Alfonso on 03-19-2024 Ovalocytes LM Ql (Bld) Slight [facility] Platelet adequacy [Presence] in Blood by Light microscopyOrdered By: Celeste Alfonso on 05-02-2023 Platelets LM Ql (Bld) Normal Normal [facility] Platelet mean volume [Entiti c volume] in Blood by Automated countOrdered By: Celeste Alfonso on 05-02-2023 Platelet mean volume (Bld) [Entitic vol] 10.6 fL High 6.6-10.1 [facility] Comment on above: Performed By: #### S CAN CBC, BMP ####[facility] [id number] Platelet morphology finding [Identifier] in BloodOrdered By: Celeste Alfonso on 05-02-2023 Platelet morphology finding Nom (Bld) Normal Normal [facility] Platelets [#/volume] in Bloo d by Automated countOrdered By: Celeste Alfonso on 05-02-2023 Platelets (Bld) [#/Vol] 166 10*3/uL Normal 150-450 [facility] Comment on above: Performed By: #### S CAN CBC, BMP ####[address] Poikilocytosis [Presence] in Blood by Light microscopyOrdered By: Celeste Alfonso on 05-02-2023 Poikilocytosis LM Ql (Bld) Slight [facility] Potassium [Moles/volume] in Serum or PlasmaOrdered By: Celeste Alfonso on 05-02-2023 Potassium [Moles/Vol] 4.6 mmol/L Normal 3.5-5.1 [facility] Comment on above: Performed By: #### S CAN CBC, BMP ####[address] RBC morphologyOrdered By: Jeremías Alfonso on 05-02-2023 RBC morphology finding Nom (Bld) N/A [facility] Scan and CBCon 05-02-2023 Mean Corpuscular HGB Conc 32.8 g/dL Normal 32.5-35.6 [facility] Comment on above: Performed By: #### S CAN CBC, BMP ####[address] [address] [facility] Microcytosis Slight Normal [facility] Comment on above: Performed By: #### S CAN CBC, BMP ####[address] [address] [facility] NRBC% 0.4 /100{WBC} Normal 0-0.5 [facility] Comment on above: Performed By: #### S CAN CBC, BMP ####[address] [address] [facility] Ovalocytes Slight Normal [facility] Comment on above: Performed By: #### S CAN CBC, BMP ####[address] [address] [facility] Platelet Estimate Normal Normal Normal [facility] Comment on above: Performed By: #### S CAN CBC, BMP ####[address] Platelet Morphology Normal Normal Normal [facility] Comment on above: Result Comment: PERF ORMED BY:[address] [place] [id number] MEDICAL JADEN NOGUEIRA M.D. Performed By: #### S CAN CBC, BMP ####[address] [address] [facility] Poikilocytosis Slight Normal [facility] Comment on above: Performed By: #### S CAN CBC, BMP ####[place] [id number] [facility] Serum or plasma anion gap de terminationOrdered By: Celeste Alfonso on 05-02-2023 Anion gap [Moles/Vol] 11.5 mmol/L Normal 6.0-15.0 [facility] Comment on above: Performed By: #### S CAN CBC, BMP ####[address] [address] [facility] Sodium [Moles/volume] in Ser um or PlasmaOrdered By: Celeste Alfonso on 05-02-2023 Sodium [Moles/Vol] 140 mmol/L Normal 136-145 [facility] Comment on above: Performed By: #### S CAN CBC, BMP ####[facility] [place] [address] [facility] Urea nitrogen [Mass/volume] in Serum or PlasmaOrdered By: Celeste Alfonso on 05-02-2023 Urea nitrogen [Mass/Vol] 48 mg/dL High 7-25 [facility] Comment on above: Performed By: #### S CAN CBC, BMP ####[facility] [place] [address] [facility] Activated partial thrombopla stin time (aPTT) in platelet poor plasma by coagulation aOrdered By: Mariano Dennis on 04-28-2023 aPTT Coag (PPP) [Time] 30.8 s 25.1-36.5 [facility] Comment on above: A hematocrit value g reater than 55% may lead to inaccurate results in coagulation testing. Patients having hematocrit values >55% require a special collection tube for coagulation studies. Please contact the laboratory at [phone] for redraw instructions. Alanine aminotransferase [En zymatic activity/volume] in Serum or PlasmaOrdered By: Mariano Dennis on 04-28-2023 ALT [Catalytic activity/Vol] 10 U/L Normal 7-52 [facility] Comment on above: Performed By: #### M G, CBC, PHOS, CMP ####[place] [address] [place] [address] [place] Albumin [Mass/volume] in Ser um or Plasma by Bromocresol green (BCG) dye binding methoOrdered By: Mariano Dennis on 04-28-2023 Albumin BCG dye [Mass/Vol] 3.8 g/dL 3.5-5.7 [facility] Alkaline phosphatase [Enzyma tic activity/volume] in Serum or PlasmaOrdered By: Mariano Dennis on 04-28-2023 ALP [Catalytic activity/Vol] 77 U/L Normal 34-104 [facility] Comment on above: Performed By: #### M G, CBC, PHOS, CMP ####[address] [address] [facility] Aspartate aminotransferase [ Enzymatic activity/volume] in Serum or PlasmaOrdered By: Mariano Dennis on 04-28-2023 AST [Catalytic activity/Vol] 15 U/L Normal 13-39 [facility] Comment on above: Performed By: #### M G, CBC, PHOS, CMP ####[address] Bilirubin.total [Mass/volume ] in Serum or PlasmaOrdered By: Mariano Dennis on 04-28-2023 Bilirubin [Mass/Vol] 0.7 mg/dL Normal 0.3-1.0 [facility] Comment on above: Performed By: #### M G, CBC, PHOS, CMP ####[place] [id number] [facility] Coagulation Profileon 2023 aPTT Coag (Bld) [Time] 30.8 s Normal 25.1-36.5 [facility] Comment on above: Result Comment: A he matocrit value greater than 55% may lead to inaccurate results in coagulation testing. Patients having hematocrit values >55% require a special collection tube for coagulation studies. Please contact the laboratory at [phone] for redraw instructions.PERFORMED BY:[place] [address] [place], [place] [phone] MEDICAL DIRECTORANNIKA NOGUEIRA M.D. Performed By: #### P P ####[place] [id number] [facility] Complete Blood Count Auto Di ffon 04-28-2023 Basophils (Bld) [#/Vol] 0.0 10*3/uL Normal 0.0-0.2 [facility] Comment on above: Result Comment: PERF ORMED BY:[place] [address], [place] [phone] MEDICAL DIRECTORANNIKA NOGUEIRA M.D. Performed By: #### M G, CBC, PHOS, CMP ####[place] [id number] [facility] Basophils/100 WBC (Bld) 0.4 % Normal . [facility] Comment on above: Performed By: #### M G, CBC, PHOS, CMP ####[address] Eosinophils (Bld) [#/Vol] 0.5 10*3/uL High 0.0-0.45 [facility] Comment on above: Performed By: #### M G, CBC, PHOS, CMP ####[address] Eosinophils/100 WBC (Bld) 7.4 % Normal . [facility] Comment on above: Performed By: #### M G, CBC, PHOS, CMP ####[address] Erythrocyte distribution width (RBC) [Ratio] 18.7 % High 12.0-14.8 [facility] Comment on above: Performed By: #### M G, CBC, PHOS, CMP ####[address] Hematocrit (Bld) [Volume fraction] 35.6 % Low 38.8-50.0 [facility] Comment on above: Performed By: #### M G, CBC, PHOS, CMP ####[address] Hemoglobin (Bld) [Mass/Vol] 11.8 g/dL Low 13.0-17.0 [facility] Comment on above: Performed By: #### M G, CBC, PHOS, CMP ####[address] Lymphocytes (Bld) [#/Vol] 2.2 10*3/uL Normal 1.00-4.8 [facility] Comment on above: Performed By: #### M G, CBC, PHOS, CMP ####[address] Lymphocytes/100 WBC (Bld) 31.0 % Normal . [facility] Comment on above: Performed By: #### M G, CBC, PHOS, CMP ####[address] MCH (RBC) [Entitic mass] 32.0 pg Normal 27.5-35.2 [facility] Comment on above: Performed By: #### M G, CBC, PHOS, CMP ####[address] MCV (RBC) [Entitic vol] 96.8 fL Normal 83.5-101 [facility] Comment on above: Performed By: #### M G, CBC, PHOS, CMP ####[address] Mean Corpuscular HGB Conc 33.1 g/dL Normal 32.5-35.6 [facility] Comment on above: Performed By: #### M G, CBC, PHOS, CMP ####[address] Monocytes (Bld) [#/Vol] 1.0 10*3/uL High 0.0-0.8 [facility] Comment on above: Performed By: #### M G, CBC, PHOS, CMP ####[address] Monocytes/100 WBC (Bld) 13.8 % Normal . [facility] Comment on above: Performed By: #### M G, CBC, PHOS, CMP ####[address] Neutrophils (Bld) [#/Vol] 3.4 10*3/uL Normal 1.8-7.7 [facility] Comment on above: Performed By: #### M G, CBC, PHOS, CMP ####[address] Neutrophils/100 WBC (Bld) 47.4 % Normal . [facility] Comment on above: Performed By: #### M G, CBC, PHOS, CMP ####[place] [id number] [place] NRBC% 0.1 /100{WBC} Normal 0-0.5 [facility] Comment on above: Performed By: #### M G, CBC, PHOS, CMP ####[address] Platelet mean volume (Bld) [Entitic vol] 10.3 fL High 6.6-10.1 [facility] Comment on above: Performed By: #### M G, CBC, PHOS, CMP ####[address] Platelets (Bld) [#/Vol] 147 10*3/uL Low 150-450 [facility] Comment on above: Performed By: #### M G, CBC, PHOS, CMP ####[address] RBC (Bld) [#/Vol] 3.68 10*6/uL Low 3.90-5.60 [facility] Comment on above: Performed By: #### Yen G, CBC, PHOS, CMP ####[address] WBC (Bld) [#/Vol] 7.2 10*3/uL Normal 4.1-10.5 [facility] Comment on above: Performed By: #### Yen G, CBC, PHOS, CMP ####[address] Comprehensive Metabolic Pane negro 04-28-2023 Albumin [Mass/Vol] 3.8 g/dL Normal 3.5-5.7 [facility] Comment on above: Performed By: #### M G, CBC, PHOS, CMP ####[address] Anion gap [Moles/Vol] 12.4 mmol/L Normal 6.0-15.0 [facility] Comment on above: Performed By: #### M G, CBC, PHOS, CMP ####[address] Calcium [Mass/Vol] 8.8 mg/dL Normal 8.6-10.3 [facility] Comment on above: Performed By: #### M G, CBC, PHOS, CMP ####[address] Chloride [Moles/Vol] 103 mmol/L Normal 98-107 [facility] Comment on above: Performed By: #### M G, CBC, PHOS, CMP ####[address] CO2 [Moles/Vol] 27.5 mmol/L Normal 21.0-31.0 [facility] Comment on above: Performed By: #### M G, CBC, PHOS, CMP ####[address] Creatinine [Mass/Vol] 1.34 mg/dL High 0.70-1.30 [facility] Comment on above: Performed By: #### M G, CBC, PHOS, CMP ####[address] Creatinine Clr Calc Pharmacy 53.68 Normal [facility] Comment on above: Performed By: #### M G, CBC, PHOS, CMP ####[address] GFR/1.73 sq M.predicted MDRD (S/P/Bld) [Vol rate/Area] 54.560 mL/min/{1.73_m2} Normal [facility] Comment on above: Performed By: #### M G, CBC, PHOS, CMP ####[place] [id number] [facility] Glucose [Mass/Vol] 104 mg/dL High 70-100 [facility] Comment on above: Result Comment: [place] om Glucose Reference Range is dependent on time and content of last meal. Glucose of more than 200 mg/dL in a nonstressed, ambulatory subject supports the diagnosis of Diabetes Mellitus. ADA recommended reference range Performed By: #### M G, CBC, PHOS, CMP ####[place] [address] [place] [id number] [facility] Potassium [Moles/Vol] 3.9 mmol/L Normal 3.5-5.1 [facility] Comment on above: Performed By: #### M G, CBC, PHOS, CMP ####[place] [address] Sodium [Moles/Vol] 139 mmol/L Normal 136-145 [facility] Comment on above: Performed By: #### M G, CBC, PHOS, CMP ####[place] [address] Urea nitrogen [Mass/Vol] 20 mg/dL Normal 7-25 [facility] Comment on above: Performed By: #### M G, CBC, PHOS, CMP ####[place] [address] INR in Platelet poor plasma by Coagulation assayOrdered By: Mariano Dennis on 04-28-2023 INR Coag (PPP) [Relative time] 1.2 {INR} Normal [facility] Comment on above: INR Therapeutic Rang e A) Pre- and Peroperative OAT started two weeks before surgery. NOT HIP SURGERY: 1.5 - 2.5 HIP SURGERY: 2 - 3B) Primary and secondary prevention of venous THROMBOSIS: 2 - 3C) Active venous thrombosis, pulmonary embolismand prevention of recurrent venous thrombosis: 2 - 3D) Prevention of arterial thromboembolismincluding patients with mechanical heart valves: 3 - 4.5 Result Comment: INR Therapeutic Range A) Pre- and Peroperative OAT started two weeks before surgery. NOT HIP SURGERY: 1.5 - 2.5 HIP SURGERY: 2 - 3 B) Primary and secondary prevention of venous THROMBOSIS: 2 - 3 C) Active venous thrombosis, pulmonary embolism and prevention of recurrent venous thrombosis: 2 - 3 D) Prevention of arterial thromboembolism including patients with mechanical heart valves: 3 - 4.5 Performed By: #### P P ####[place] [id number] [facility] Magnesium [Mass/volume] in S sammy or PlasmaOrdered By: Mariano Dennis on 04-28-2023 Magnesium [Mass/Vol] 1.8 mg/dL Low 1.9-2.7 [facility] Comment on above: Result Comment: PERF ORMED BY:[address] [place], [place] [phone] MEDICAL DIRECTORANNIKA NOGUEIRA M.D. Performed By: #### M G, CBC, PHOS, CMP ####[address] [address] [facility] Phosphate [Mass/volume] in S sammy or PlasmaOrdered By: Mariano Dennis on 04-28-2023 Phosphate [Mass/Vol] 3.4 mg/dL Normal 2.5-4.5 [facility] Comment on above: Performed By: #### M G, CBC, PHOS, CMP ####[address] [address] [facility] Protein [Mass/volume] in Ser um or PlasmaOrdered By: Mariano Dennis on 04-28-2023 Protein [Mass/Vol] 7.3 g/dL Normal 6.4-8.9 [facility] Comment on above: Performed By: #### M G, CBC, PHOS, CMP ####[address] [address] [facility] Prothrombin time (PT)Ordered By: Mariano Dennis on 04-28-2023 PT Coag (PPP) [Time] 13.5 s High 9.0-12.9 [facility] Comment on above: A hematocrit value g reater than 55% may lead to inaccurate results in coagulation testing. Patients having hematocrit values >55% require a special collection tube for coagulation studies. Please contact the laboratory at [phone] for redraw instructions. Result Comment: A he matocrit value greater than 55% may lead to inaccurate results in coagulation testing. Patients having hematocrit values >55% require a special collection tube for coagulation studies. Please contact the laboratory at [phone] for redraw instructions. Performed By: #### P P ####[address] [address] [facility] Serum globulin measurement b y calculation (mass/volume)Ordered By: Mariano Dennis on 04-28-2023 Globulin (S) [Mass/Vol] 3.5 g/dL Normal [facility] Comment on above: Performed By: #### M G, CBC, PHOS, CMP ####[address] Serum or plasma albumin/glob ulin mass ratioOrdered By: Mariano Dennis on 04-28-2023 Albumin/Globulin [Mass ratio] 1.1 {ratio} Normal [facility] Comment on above: Performed By: #### M G, CBC, PHOS, CMP ####[address] Alanine aminotransferase [En zymatic activity/volume] in Serum or PlasmaOrdered By: Afua Mae on 04-27-2023 ALT [Catalytic activity/Vol] 12 U/L Normal 7-52 [facility] Comment on above: Performed By: #### C MP ####[address] Albumin [Mass/volume] in Ser um or Plasma by Bromocresol green (BCG) dye binding methoOrdered By: Afua Mae on 04-27-2023 Albumin BCG dye [Mass/Vol] 4.0 g/dL 3.5-5.7 [facility] Alkaline phosphatase [Enzyma tic activity/volume] in Serum or PlasmaOrdered By: Afua Mae on 04-27-2023 ALP [Catalytic activity/Vol] 70 U/L Normal 34-104 [facility] Comment on above: Performed By: #### C MP ####[address] Anisocytosis [Presence] in B lood by Light microscopyOrdered By: Afua Mae on 04-27-2023 Anisocytosis Ql (Bld) Slight Normal [facility] Comment on above: Performed By: #### S CAN CBC ####[address] Aspartate aminotransferase [ Enzymatic activity/volume] in Serum or PlasmaOrdered By: Afua Mae on 03-14-2024 AST [Catalytic activity/Vol] 21 U/L Normal 13-39 [facility] Comment on above: Performed By: #### C MP ####[address] Automated basophil %Ordered By: Afua Mae on 04-27-2023 Basophils/100 WBC (Bld) 0.6 % Normal . [facility] Comment on above: Performed By: #### S CAN CBC ####[address] Automated basophil countOrde red By: Afua Mae on 04-27-2023 Basophils (Bld) [#/Vol] 0.1 10*3/uL Normal 0.0-0.2 [facility] Comment on above: Performed By: #### S CAN CBC ####[address] Automated blood monocyte cou ntOrdered By: Afua Mae on 04-27-2023 Monocytes (Bld) [#/Vol] 0.9 10*3/uL High 0.0-0.8 [facility] Comment on above: Performed By: #### S CAN CBC ####[address] Automated eosinophil %Ordere d By: Afua Mae on 04-27-2023 Eosinophils/100 WBC (Bld) 5.5 % Normal . [facility] Comment on above: Performed By: #### S CAN CBC ####[address] Automated eosinophil countOr dered By: Afua Mae on 04-27-2023 Eosinophils (Bld) [#/Vol] 0.4 10*3/uL Normal 0.0-0.45 [facility] Comment on above: Performed By: #### S CAN CBC ####[address] Automated erythrocytes count in urine sediment (number/area)Ordered By: Afua Mae on 04-27-2023 RBC Auto (Urine sed) [#/Area] 0-1 [HPF] 0-4 [facility] Automated leukocytes count i n urine sediment (number/area)Ordered By: Afua Mae on 04-27-2023 WBC Auto (Urine sed) [#/Area] 1-2 [HPF] 0-4 [facility] Automated monocyte %Ordered By: Afua Mae on 04-27-2023 Monocytes/100 WBC (Bld) 10.9 % Normal . [facility] Comment on above: Performed By: #### S CAN CBC ####[address] Automated neutrophil %Ordere d By: Afua Mae on 04-27-2023 Neutrophils/100 WBC (Bld) 62.4 % Normal . [facility] Comment on above: Performed By: #### S CAN CBC ####[address] Automated urine color determ inationOrdered By: Afua Mae on 04-27-2023 Color (U) Yellow Normal Yellow [facility] Comment on above: Order Comment: Name Collection Type:: Clean-Voided Midstream Performed By: #### A DDONUAPLUS ####[address] Bilirubin Test strip Ql (U)O rdered By: Afua Mae on 04-27-2023 Bilirubin Ql (U) Negative Negative [facility] Bilirubin.total [Mass/volume ] in Serum or PlasmaOrdered By: Afua Mae on 04-27-2023 Bilirubin [Mass/Vol] 0.8 mg/dL Normal 0.3-1.0 [facility] Comment on above: Performed By: #### C MP ####[address] Calcium [Mass/volume] in Ser um or PlasmaOrdered By: Afua Mae on 04-27-2023 Calcium [Mass/Vol] 9.3 mg/dL Normal 8.6-10.3 [facility] Comment on above: Performed By: #### C MP ####[address] [address] [facility] Carbon dioxide, total [Moles /volume] in Serum or PlasmaOrdered By: Afua Mae on 04-27-2023 CO2 [Moles/Vol] 29.4 mmol/L Normal 21.0-31.0 [facility] Comment on above: Performed By: #### C MP ####[place] [id number] [facility] Chloride [Moles/volume] in S sammy or PlasmaOrdered By: Afua Mae on 04-27-2023 Chloride [Moles/Vol] 103 mmol/L Normal 98-107 [facility] Comment on above: Performed By: #### C MP ####[address] [address] [facility] Comprehensive Metabolic Pane negro 04-27-2023 Albumin [Mass/Vol] 4.0 g/dL Normal 3.5-5.7 [facility] Comment on above: Performed By: #### C MP ####[address] [address] [facility] Anion Gap Normal 6.0-15.0 [facility] Comment on above: Result Comment: Spec imen hemolyzed, redraw requested Performed By: #### C MP ####[address] [address] [facility] Creatinine Clr Calc Pharmacy 59.44 Normal [facility] Comment on above: Result Comment: PERF ORMED BY:[address] [place], [place] [phone] MEDICAL JADEN NOGUEIRA M.D. Performed By: #### C MP ####[address] [address] [facility] GFR/1.73 sq M.predicted MDRD (S/P/Bld) [Vol rate/Area] mL/min/{1.73_m2} Normal [facility] Comment on above: Performed By: #### C MP ####[address] [place] [address] [facility] Potassium Normal 3.5-5.1 [facility] Comment on above: Result Comment: Spec imen hemolyzed, redraw requested Performed By: #### C MP ####[place] [id number] [facility] Creatinine [Mass/volume] in Serum or PlasmaOrdered By: Afua Mae on 04-27-2023 Creatinine [Mass/Vol] 1.21 mg/dL Normal 0.70-1.30 [facility] Comment on above: Performed By: #### C MP ####[address] [address] [facility] Dipstick and Microscopicon 0 04-27-2023 Appearance (U) Clear Normal Clear [facility] Comment on above: Order Comment: Name Collection Type:: Clean-Voided Midstream Performed By: #### A DDONUAPLUS ####[place] [id number] [facility] Bacteria,Urine None Seen Normal None Seen [facility] Comment on above: Order Comment: Name Collection Type:: Clean-Voided Midstream Performed By: #### A DDONUAPLUS ####[address] [address] [facility] Bilirubin,Urine Negative Normal Negative [facility] Comment on above: Order Comment: Name Collection Type:: Clean-Voided Midstream Performed By: #### A DDONUAPLUS ####[place] [id number] [facility] Glucose Ql (U) Normal Normal Normal [facility] Comment on above: Order Comment: Name Collection Type:: Clean-Voided Midstream Performed By: #### A DDONUAPLUS ####[address] [address] [facility] Hyaline Casts,Urine 0-8 Normal 0-8 [facility] Comment on above: Order Comment: Name Collection Type:: Clean-Voided Midstream Result Comment: PERF ORMED BY:[address] [place], [place] [phone] MEDICAL DIRECTORANNIKA NOGUEIRA M.D. Performed By: #### A DDONUAPLUS ####[place] [id number] [facility] Ketones Ql (U) Negative Normal Negative [facility] Comment on above: Order Comment: Name Collection Type:: Clean-Voided Midstream Performed By: #### A DDONUAPLUS ####[place] [id number] [facility] Leukocyte esterase Test strip Ql (U) Negative Normal Negative [facility] Comment on above: Order Comment: Name Collection Type:: Clean-Voided Midstream Performed By: #### A DDONUAPLUS ####[place] [id number] [facility] Nitrite,Urine Negative Normal Negative [facility] Comment on above: Order Comment: Name Collection Type:: Clean-Voided Midstream Performed By: #### A DDONUAPLUS ####[place] [id number] [facility] Occult Blood,Urine Negative Normal Negative [facility] Comment on above: Order Comment: Name Collection Type:: Clean-Voided Midstream Result Comment: PERF ORMED BY:[address] [place], [place] [phone] MEDICAL JADEN NOGUEIRA M.D. Performed By: #### A DDONUAPLUS ####[place] [id number] [facility] RBC LM.HPF (Urine sed) [#/Area] 0 /[HPF] Normal 0-4 [facility] Comment on above: Order Comment: Name Collection Type:: Clean-Voided Midstream Performed By: #### A DDONUAPLUS ####[place] [id number] [facility] Specificy Clio,Urine 1.020 Normal 1.001-1.03 0 [facility] Comment on above: Order Comment: Name Collection Type:: Clean-Voided Midstream Performed By: #### A DDONUAPLUS ####[address] [address] [facility] Squamous Epithelial Cell,Urine 0-1 Normal 0-2 [facility] Comment on above: Order Comment: Name Collection Type:: Clean-Voided Midstream Performed By: #### A DDONUAPLUS ####[address] [address] [facility] Urobilinogen,Urine Normal Normal Normal [facility] Comment on above: Order Comment: Name Collection Type:: Clean-Voided Midstream Performed By: #### A DDONUAPLUS ####[address] [address] [facility] WBC,Urine 1-2 Normal 0-4 [facility] Comment on above: Order Comment: Name Collection Type:: Clean-Voided Midstream Performed By: #### A DDONUAPLUS ####[address] [address] [facility] ECG 12 lead ECGon 04-27-2023 ECG 12 lead ECG Normal [facility] Erythrocyte distribution wid th [Ratio] by Automated countOrdered By: Afua Mae on 04-27-2023 Erythrocyte distribution width (RBC) [Ratio] 18.7 % High 12.0-14.8 [facility] Comment on above: Performed By: #### S CAN CBC ####[place] [id number] [facility] Erythrocytes [#/volume] in B lood by Automated countOrdered By: Afua Mae on 04-27-2023 RBC (Bld) [#/Vol] 4.02 10*6/uL Normal 3.90-5.60 [facility] Comment on above: Performed By: #### S CAN CBC ####[place] [id number] [facility] Glucose [Mass/volume] in Ser um or PlasmaOrdered By: Afua Mae on 04-27-2023 Glucose [Mass/Vol] 145 mg/dL High 70-100 [facility] Comment on above: ADA recommended refe rence rangeRandom Glucose Reference Range is dependent on time and content of last meal. Glucose of more than 200 mg/dL in a nonstressed, ambulatory subject supports the diagnosis of Diabetes Mellitus. Result Comment: [place] Glucose Reference Range is dependent on time and content of last meal. Glucose of more than 200 mg/dL in a nonstressed, ambulatory subject supports the diagnosis of Diabetes Mellitus. ADA recommended reference range Performed By: #### C MP ####[address] Hematocrit [Volume Fraction] of Blood by Automated countOrdered By: Afua Mae on 04-27-2023 Hematocrit (Bld) [Volume fraction] 39.0 % Normal 38.8-50.0 [facility] Comment on above: Performed By: #### S CAN CBC ####[address] Hemoglobin [Mass/volume] in BloodOrdered By: Afua Mae on 04-27-2023 Hemoglobin (Bld) [Mass/Vol] 12.7 g/dL Low 13.0-17.0 [facility] Comment on above: Performed By: #### S CAN CBC ####[address] Ketones Auto test strip (U) [Mass/Vol]Ordered By: Afua Mae on 04-27-2023 Ketones (U) [Mass/Vol] Negative Negative [facility] - UrinalysisOrder ed By: Afua Mae on 04-27-2023 Hyaline casts LM Ql (Urine sed) 0-8 [LPF] 0-8 [facility] Leukocytes [#/volume] correc michelle for nucleated erythrocytes in Blood by Automated counOrdered By: Afua Mae on 04-27-2023 WBC corrected for nucl RBC Auto (Bld) [#/Vol] 8.2 10*3/uL 4.1-10.5 [facility] Leukocytes [#/volume] in Blo od by Automated countOrdered By: Afua Mae on 04-27-2023 WBC (Bld) [#/Vol] 8.2 10*3/uL Normal 4.1-10.5 [facility] Comment on above: Performed By: #### S CAN CBC ####[address] Lymphocytes [#/volume] in Bl ood by Automated countOrdered By: Afua Mae on 04-27-2023 Lymphocytes (Bld) [#/Vol] 1.7 10*3/uL Normal 1.00-4.8 [facility] Comment on above: Performed By: #### S CAN CBC ####[address] Lymphocytes/100 leukocytes i n Blood by Automated countOrdered By: Afua Mae on 04-27-2023 Lymphocytes/100 WBC (Bld) 20.6 % Normal . [facility] Comment on above: Performed By: #### S CAN CBC ####[address] MCH [Entitic mass] by Automa michelle countOrdered By: Afua Mae on 04-27-2023 MCH (RBC) [Entitic mass] 31.6 pg Normal 27.5-35.2 [facility] Comment on above: Performed By: #### S CAN CBC ####[address] MCHC Auto (RBC) [Mass/Vol]Or dered By: Afua Mae on 04-27-2023 MCHC (RBC) [Mass/Vol] 32.6 g/dL 32.5-35.6 [facility] MCV [Entitic volume] by Auto mated countOrdered By: Afua Mae on 04-27-2023 MCV (RBC) [Entitic vol] 97.0 fL Normal 83.5-101 [facility] Comment on above: Performed By: #### S CAN CBC ####[address] Monocyte distribution width [Entitic volume] in Blood by AutomatedOrdered By: Afua Mae on 04-27-2023 Monocyte distribution width Auto (Bld) [Entitic vol] 22.60 % 0.00-20.00 [facility] Comment on above: For adults in ED, MD W > 20.0 may be associated with a higher risk of sepsis during the first 12 hrs of hospital admission Neutrophils [#/volume] in Bl ood by Automated countOrdered By: Afua Mae on 04-27-2023 Neutrophils (Bld) [#/Vol] 5.1 10*3/uL Normal 1.8-7.7 [facility] Comment on above: Performed By: #### S CAN CBC ####[facility] [id number] [place] [id number] [facility] Nitrite Test strip Ql (U)Ord ered By: Afua Mae on 04-27-2023 Nitrite Ql (U) Negative Negative [facility] No Panel InformationOrdered By: Afua Mae on 04-27-2023 Estimated GFR (CKD-EPI) > 60.0 mL/Min [facility] Creatinine Clearance (Chem 59.44 [facility] Nucleated erythrocytes [Pres ence] in Blood by Automated countOrdered By: Afua Mae on 04-27-2023 Nucleated RBC Auto Ql (Bld) 0.1 /100{WBC} 0-0.5 [facility] Platelet adequacy [Presence] in Blood by Light microscopyOrdered By: Afua Mae on 04-27-2023 Platelets LM Ql (Bld) Normal Normal [facility] Platelet mean volume [Entiti c volume] in Blood by Automated countOrdered By: Afua Mae on 04-27-2023 Platelet mean volume (Bld) [Entitic vol] 10.0 fL Normal 6.6-10.1 [facility] Comment on above: Performed By: #### S CAN CBC ####[facility] [id number] [place] [id number] [facility] Platelet morphology finding [Identifier] in BloodOrdered By: Afua Mae on 04-27-2023 Platelet morphology finding Nom (Bld) Normal Normal [facility] Platelets [#/volume] in Bloo d by Automated countOrdered By: Afua Mae on 04-27-2023 Platelets (Bld) [#/Vol] 157 10*3/uL Normal 150-450 [facility] Comment on above: Performed By: #### S CAN CBC ####[place] [id number] [facility] Potassium [Moles/volume] in Serum or PlasmaOrdered By: Afua Mae on 04-27-2023 Potassium [Moles/Vol] See comment 3.5-5.1 [facility] Comment on above: Specimen hemolyzed, redraw requested Protein [Mass/volume] in Ser um or PlasmaOrdered By: Afua Mae on 04-27-2023 Protein [Mass/Vol] 8.1 g/dL Normal 6.4-8.9 [facility] Comment on above: Performed By: #### C MP ####[address] RBC morphologyOrdered By: Itz Mae on 04-27-2023 RBC morphology finding Nom (Bld) N/A [facility] Redraw Potassiumon Potassium [Moles/Vol] 3.8 mmol/L Normal 3.5-5.1 [facility] Comment on above: Order Comment: REDRA W STILL HEMOLYZED, REDRAW REQUESTED Result Comment: PERF ORMED BY:[address] [place], [place] [phone] MEDICAL DIRECTORANNIKA NOGUEIRA M.D. Performed By: #### R EDRAW K ####[place] [id number] [facility] Scan and CBCon 04-27-2023 Mean Corpuscular HGB Conc 32.6 g/dL Normal 32.5-35.6 [facility] Comment on above: Performed By: #### S CAN CBC ####[place] [id number] [facility] Monocytes/100 WBC (Bld) 22.60 % High 0.00-20.00 [facility] Comment on above: Result Comment: For adults in ED, MDW > 20.0 may be associated with a higher risk of sepsis during the first 12 hrs of hospital admission Performed By: #### S CAN CBC ####[address] NRBC% 0.1 /100{WBC} Normal 0-0.5 [facility] Comment on above: Performed By: #### S CAN CBC ####[place] [id number] [facility] Platelet Estimate Normal Normal Normal [facility] Comment on above: Performed By: #### S CAN CBC ####[place] [id number] [facility] Platelet Morphology Normal Normal Normal [facility] Comment on above: Result Comment: PERF ORMED BY:[address] [place] [phone] MEDICAL DIRECTORANNIKA NOGUEIRA M.D. Performed By: #### S CAN CBC ####[address] Serum globulin measurement b y calculation (mass/volume)Ordered By: Afua Mae on 04-27-2023 Globulin (S) [Mass/Vol] 4.1 g/dL [facility] Comment on above: Performed By: #### C MP ####[address] Serum or plasma albumin/glob ulin mass ratioOrdered By: Afua Mae on 04-27-2023 Albumin/Globulin [Mass ratio] 1.0 {ratio} [facility] Comment on above: Performed By: #### C MP ####[address] Serum or plasma anion gap de terminationOrdered By: Afua Mae on 04-27-2023 Anion gap [Moles/Vol] See comment 6.0-15.0 [facility] Comment on above: Specimen hemolyzed, redraw requested Sodium [Moles/volume] in Ser um or PlasmaOrdered By: Afua Mae on 04-27-2023 Sodium [Moles/Vol] 140 mmol/L Normal 136-145 [facility] Comment on above: Performed By: #### C MP ####[place] [address] [place] [id number] [facility] Specific gravity Auto test s trip (U) [Rel density]Ordered By: Afua Mae on 04-27-2023 Specific gravity (U) [Rel density] 1.020 1.001-1.03 0 [facility] Squamous epithelial cells de tection in urine sediment by light microscopyOrdered By: Afua Mae on 04-27-2023 Epithelial cells.squamous LM Ql (Urine sed) 0-1 [HPF] 0-2 [facility] Urea nitrogen [Mass/volume] in Serum or PlasmaOrdered By: Afua Mae on 04-27-2023 Urea nitrogen [Mass/Vol] 18 mg/dL Normal 7-25 [facility] Comment on above: Performed By: #### C MP ####[address] Urine bacteria detection by automated methodOrdered By: Afua Mae on 04-27-2023 Bacteria Auto Ql (U) None seen None Seen [facility] Urine clarity by refractomet ry automatedOrdered By: Afua Mae on 04-27-2023 Clarity Refractometry automated (U) Clear Clear [facility] Urine glucose measurement by automated test strip (mass/volume)Ordered By: Afua Mae on 04-27-2023 Glucose Auto test strip (U) [Mass/Vol] Normal mg/dL Normal [facility] Urine hemoglobin detection b y automated test stripOrdered By: Afua Mae on 04-27-2023 Hemoglobin Auto test strip Ql (U) Negative Negative [facility] Urine leukocyte esterase det ection by automated test stripOrdered By: Afua Mae on 04-27-2023 Leukocyte esterase Auto test strip Ql (U) Negative Negative [facility] Urine pH measurement by auto mated test stripOrdered By: Afua Mae on 04-27-2023 pH (U) 6.0 [pH] Normal 5.0-9.0 [facility] Comment on above: Order Comment: Name Collection Type:: Clean-Voided Midstream Performed By: #### A DDONUAPLUS ####[address] [address] [facility] Urine protein measurement by automated test strip (mass/volume)Ordered By: Afua Mae on 04-27-2023 Protein (U) [Mass/Vol] 300 mg/dL High Negative [facility] Comment on above: Order Comment: Name Collection Type:: Clean-Voided Midstream Performed By: #### A DDONUAPLUS ####[address] [address] [facility] Urobilinogen Auto test strip (U) [Mass/Vol]Ordered By: Afua Mae on 04-27-2023 Urobilinogen (U) [Mass/Vol] Normal mg/dL Normal [facility] XR chest 1V portableon 04-26 XR chest 1V portable Normal [facility] XR knee RT 4V*on 04-27-2023 XR knee RT 4V* Normal [facility] Basic Metabolic Panelon 02-14 Anion gap [Moles/Vol] 8.5 mmol/L Normal 6.0-15.0 [facility] Comment on above: Performed By: #### B MP ####[place] [id number] [facility] Calcium [Mass/Vol] 8.6 mg/dL Normal 8.6-10.3 [facility] Comment on above: Performed By: #### B MP ####[place] [id number] [facility] Chloride [Moles/Vol] 99 mmol/L Normal 98-107 [facility] Comment on above: Performed By: #### B MP ####[place] [id number] [facility] CO2 [Moles/Vol] 34.5 mmol/L High 21.0-31.0 [facility] Comment on above: Performed By: #### B MP ####[place] [id number] [facility] Creatinine [Mass/Vol] 1.37 mg/dL High 0.70-1.30 [facility] Comment on above: Performed By: #### B MP ####[place] [id number] [facility] Creatinine Clr Calc Pharmacy 57.25 Normal [facility] Comment on above: Result Comment: PERF ORMED BY:[address] [place], [place] [phone] MEDICAL JADEN NOGUEIRA M.D. Performed By: #### B MP ####[place] [id number] [facility] GFR/1.73 sq M.predicted MDRD (S/P/Bld) [Vol rate/Area] 53.130 mL/min/{1.73_m2} Normal [facility] Comment on above: Performed By: #### B MP ####[place] [id number] [facility] Glucose [Mass/Vol] 94 mg/dL Normal 70-100 [facility] Comment on above: Result Comment: [place] Glucose Reference Range is dependent on time and content of last meal. Glucose of more than 200 mg/dL in a nonstressed, ambulatory subject supports the diagnosis of Diabetes Mellitus. ADA recommended reference range Performed By: #### B MP ####[place] [id number] [facility] Potassium [Moles/Vol] 4.0 mmol/L Normal 3.5-5.1 [facility] Comment on above: Performed By: #### B MP ####[place] [id number] [facility] Sodium [Moles/Vol] 138 mmol/L Normal 136-145 [facility] Comment on above: Performed By: #### B MP ####[place] [id number] [facility] Urea nitrogen [Mass/Vol] 34 mg/dL High 7-25 [facility] Comment on above: Performed By: #### B MP ####[place] [id number] [facility] Basic Metabolic Panelon 01-2 Anion gap [Moles/Vol] 9.8 mmol/L Normal 6.0-15.0 [facility] Comment on above: Performed By: #### B MP ####[place] [id number] [facility] Calcium [Mass/Vol] 8.2 mg/dL Low 8.6-10.3 [facility] Comment on above: Performed By: #### B MP ####[place] [id number] [facility] Chloride [Moles/Vol] 100 mmol/L Normal 98-107 [facility] Comment on above: Performed By: #### B MP ####[place] [id number] [facility] CO2 [Moles/Vol] 33.1 mmol/L High 21.0-31.0 [facility] Comment on above: Performed By: #### B MP ####[place] [id number] [facility] Creatinine [Mass/Vol] 1.45 mg/dL High 0.70-1.30 [facility] Comment on above: Performed By: #### B MP ####[place] [id number] [facility] Creatinine Clr Calc Pharmacy 54.09 Normal [facility] Comment on above: Result Comment: PERF ORMED BY:[address] [place], [place] [phone] MEDICAL DIRECTORANNIKA NOGUEIRA M.D. Performed By: #### B MP ####[address] [address] [facility] GFR/1.73 sq M.predicted MDRD (S/P/Bld) [Vol rate/Area] 49.631 mL/min/{1.73_m2} Normal [facility] Comment on above: Performed By: #### B MP ####[place] [id number] [facility] Glucose [Mass/Vol] 111 mg/dL High 70-100 [facility] Comment on above: Result Comment: [place] Glucose Reference Range is dependent on time and content of last meal. Glucose of more than 200 mg/dL in a nonstressed, ambulatory subject supports the diagnosis of Diabetes Mellitus. ADA recommended reference range Performed By: #### B MP ####[place] [id number] [facility] Potassium [Moles/Vol] 3.9 mmol/L Normal 3.5-5.1 [facility] Comment on above: Performed By: #### B MP ####[place] [id number] [facility] Sodium [Moles/Vol] 139 mmol/L Normal 136-145 [facility] Comment on above: Performed By: #### B MP ####[place] [id number] [facility] Urea nitrogen [Mass/Vol] 34 mg/dL High 7-25 [facility] Comment on above: Performed By: #### B MP ####[address] [address] [facility] Basic Metabolic Panelon 02-14 Anion gap [Moles/Vol] 8.7 mmol/L Normal 6.0-15.0 [facility] Comment on above: Performed By: #### B MP ####[address] [address] [facility] Calcium [Mass/Vol] 8.2 mg/dL Low 8.6-10.3 [facility] Comment on above: Performed By: #### B MP ####[place] [id number] [facility] Chloride [Moles/Vol] 102 mmol/L Normal 98-107 [facility] Comment on above: Performed By: #### B MP ####[address] [address] [facility] CO2 [Moles/Vol] 33.1 mmol/L High 21.0-31.0 [facility] Comment on above: Performed By: #### B MP ####[address] [place] [address] [facility] Creatinine [Mass/Vol] 1.39 mg/dL High 0.70-1.30 [facility] Comment on above: Performed By: #### B MP ####[place] [id number] [facility] Creatinine Clr Calc Pharmacy 56.28 Normal [facility] Comment on above: Result Comment: PERF ORMED BY:[address] [place], [place] [phone] MEDICAL DIRECTORANNIKA NOGUEIRA M.D. Performed By: #### B MP ####[place] [id number] [facility] GFR/1.73 sq M.predicted MDRD (S/P/Bld) [Vol rate/Area] 52.213 mL/min/{1.73_m2} Normal [facility] Comment on above: Performed By: #### B MP ####[place] [id number] [facility] Glucose [Mass/Vol] 95 mg/dL Normal 70-100 [facility] Comment on above: Result Comment: [place] Glucose Reference Range is dependent on time and content of last meal. Glucose of more than 200 mg/dL in a nonstressed, ambulatory subject supports the diagnosis of Diabetes Mellitus. ADA recommended reference range Performed By: #### B MP ####[place] [id number] [facility] Potassium [Moles/Vol] 3.8 mmol/L Normal 3.5-5.1 [facility] Comment on above: Performed By: #### B MP ####[place] [id number] [facility] Sodium [Moles/Vol] 140 mmol/L Normal 136-145 [facility] Comment on above: Performed By: #### B MP ####[place] [id number] [facility] Urea nitrogen [Mass/Vol] 31 mg/dL High 7-25 [facility] Comment on above: Performed By: #### B MP ####[address] [address] [facility] MR head/brain wo conon 03-06 MR head/brain wo con Normal [facility] Basic Metabolic Panelon 02-14 Anion gap [Moles/Vol] 10.3 mmol/L Normal 6.0-15.0 [facility] Comment on above: Performed By: #### Yen James, BMP ####[place] [id number] [facility] Calcium [Mass/Vol] 8.4 mg/dL Low 8.6-10.3 [facility] Comment on above: Performed By: #### Yen James, BMP ####[place] [id number] [facility] Chloride [Moles/Vol] 103 mmol/L Normal 98-107 [facility] Comment on above: Performed By: #### Yen James, BMP ####[place] [id number] [facility] CO2 [Moles/Vol] 29.4 mmol/L Normal 21.0-31.0 [facility] Comment on above: Performed By: #### Yen James, BMP ####[place] [id number] [facility] Creatinine [Mass/Vol] 1.34 mg/dL High 0.70-1.30 [facility] Comment on above: Performed By: #### Yen James, BMP ####[place] [id number] [facility] Creatinine Clr Calc Pharmacy 58.46 Normal [facility] Comment on above: Performed By: #### Yen James, BMP ####[place] [id number] [place] GFR/1.73 sq M.predicted MDRD (S/P/Bld) [Vol rate/Area] 54.560 mL/min/{1.73_m2} Normal [facility] Comment on above: Performed By: #### Tyree, BMP ####[place] [id number] [facility] Glucose [Mass/Vol] 97 mg/dL Normal 70-100 [facility] Comment on above: Result Comment: [place] Glucose Reference Range is dependent on time and content of last meal. Glucose of more than 200 mg/dL in a nonstressed, ambulatory subject supports the diagnosis of Diabetes Mellitus. ADA recommended reference range Performed By: #### M Tyree, BMP ####[place] [id number] [facility] Potassium [Moles/Vol] 3.7 mmol/L Normal 3.5-5.1 [facility] Comment on above: Performed By: #### Yen James, BMP ####[place] [id number] [facility] Sodium [Moles/Vol] 139 mmol/L Normal 136-145 [facility] Comment on above: Performed By: #### Yen , BMP ####[place] [id number] [facility] Urea nitrogen [Mass/Vol] 28 mg/dL High 7-25 [facility] Comment on above: Performed By: #### Yen , BMP ####[place] [id number] [facility] Complete Blood Count Auto Di ffon 03-05-2023 Basophils (Bld) [#/Vol] 0.0 10*3/uL Normal 0.0-0.2 [facility] Comment on above: Result Comment: PERF ORMED BY:[address] [place], [place] [phone] MEDICAL DIRECTORANNIKA NOGUEIRA M.D. Performed By: #### C BC ####[place] [id number] [facility] Basophils/100 WBC (Bld) 0.5 % Normal . [facility] Comment on above: Performed By: #### C BC ####[place] [id number] [facility] Eosinophils (Bld) [#/Vol] 0.3 10*3/uL Normal 0.0-0.45 [facility] Comment on above: Performed By: #### C BC ####[address] Eosinophils/100 WBC (Bld) 5.2 % Normal . [facility] Comment on above: Performed By: #### C BC ####[address] Erythrocyte distribution width (RBC) [Ratio] 14.5 % Normal 12.0-14.8 [facility] Comment on above: Performed By: #### C BC ####[address] Hematocrit (Bld) [Volume fraction] 33.3 % Low 38.8-50.0 [facility] Comment on above: Performed By: #### C BC ####[address] Hemoglobin (Bld) [Mass/Vol] 11.0 g/dL Low 13.0-17.0 [facility] Comment on above: Performed By: #### C BC ####[address] Lymphocytes (Bld) [#/Vol] 1.7 10*3/uL Normal 1.00-4.8 [facility] Comment on above: Performed By: #### C BC ####[address] Lymphocytes/100 WBC (Bld) 26.9 % Normal . [facility] Comment on above: Performed By: #### C BC ####[address] MCH (RBC) [Entitic mass] 32.7 pg Normal 27.5-35.2 [facility] Comment on above: Performed By: #### C BC ####[address] MCV (RBC) [Entitic vol] 99.2 fL Normal 83.5-101 [facility] Comment on above: Performed By: #### C BC ####[address] Mean Corpuscular HGB Conc 33.0 g/dL Normal 32.5-35.6 [facility] Comment on above: Performed By: #### C BC ####[address] Monocytes (Bld) [#/Vol] 0.7 10*3/uL Normal 0.0-0.8 [facility] Comment on above: Performed By: #### C BC ####[address] Monocytes/100 WBC (Bld) 11.4 % Normal . [facility] Comment on above: Performed By: #### C BC ####[address] Neutrophils (Bld) [#/Vol] 3.5 10*3/uL Normal 1.8-7.7 [facility] Comment on above: Performed By: #### C BC ####[address] Neutrophils/100 WBC (Bld) 56.0 % Normal . [facility] Comment on above: Performed By: #### C BC ####[address] NRBC% 0.2 /100{WBC} Normal 0-0.5 [facility] Comment on above: Performed By: #### C BC ####[address] Platelet mean volume (Bld) [Entitic vol] 9.9 fL Normal 6.6-10.1 [facility] Comment on above: Performed By: #### C BC ####[address] Platelets (Bld) [#/Vol] 135 10*3/uL Low 150-450 [facility] Comment on above: Performed By: #### C BC ####[address] RBC (Bld) [#/Vol] 3.36 10*6/uL Low 3.90-5.60 [facility] Comment on above: Performed By: #### C BC ####[place] [id number] [facility] WBC (Bld) [#/Vol] 6.3 10*3/uL Normal 4.1-10.5 [facility] Comment on above: Performed By: #### C BC ####[place] [id number] [facility] Magnesiumon 03-05-2023 Magnesium [Mass/Vol] 1.9 mg/dL Normal 1.9-2.7 [facility] Comment on above: Result Comment: PERF ORMED BY:[address] [place], [place] [phone] MEDICAL DIRECTORANNIKA NOGUEIRA M.D. Performed By: #### Yen James, BMP ####[place] [id number] [facility] Basic Metabolic Panelon 02-14 Anion gap [Moles/Vol] 10.5 mmol/L Normal 6.0-15.0 [facility] Comment on above: Performed By: #### Yen James, BMP ####[place] [id number] [facility] Calcium [Mass/Vol] 8.8 mg/dL Normal 8.6-10.3 [facility] Comment on above: Performed By: #### Yen James, BMP ####[place] [id number] [facility] Chloride [Moles/Vol] 103 mmol/L Normal 98-107 [facility] Comment on above: Performed By: #### Yen James, BMP ####[place] [id number] [facility] CO2 [Moles/Vol] 31.2 mmol/L High 21.0-31.0 [facility] Comment on above: Performed By: #### Yen James, BMP ####[place] [id number] [facility] Creatinine [Mass/Vol] 1.41 mg/dL High 0.70-1.30 [facility] Comment on above: Performed By: #### Yen Jmaes, BMP ####[place] [address] [place] [id number] [facility] Creatinine Clr Calc Pharmacy 55.45 Normal [facility] Comment on above: Performed By: #### Yen James, BMP ####[place] [address] [place] [id number] [facility] GFR/1.73 sq M.predicted MDRD (S/P/Bld) [Vol rate/Area] 51.326 mL/min/{1.73_m2} Normal [facility] Comment on above: Performed By: #### Yen James, BMP ####[place] [address] [place] [id number] [facility] Glucose [Mass/Vol] 117 mg/dL High 70-100 [facility] Comment on above: Result Comment: [place] Glucose Reference Range is dependent on time and content of last meal. Glucose of more than 200 mg/dL in a nonstressed, ambulatory subject supports the diagnosis of Diabetes Mellitus. ADA recommended reference range Performed By: #### Yen James, BMP ####[place] [id number] [facility] Potassium [Moles/Vol] 3.7 mmol/L Normal 3.5-5.1 [facility] Comment on above: Performed By: #### Yen James, BMP ####[address] [address] [facility] Sodium [Moles/Vol] 141 mmol/L Normal 136-145 [facility] Comment on above: Performed By: #### Yen James, BMP ####[address] [address] [facility] Urea nitrogen [Mass/Vol] 27 mg/dL High 7-25 [facility] Comment on above: Performed By: #### Tyree, BMP ####[address] [address] [facility] Magnesiumon 03-04-2023 Magnesium [Mass/Vol] 1.9 mg/dL Normal 1.9-2.7 [facility] Comment on above: Result Comment: PERF ORMED BY:[address] [place], [place] [phone] MEDICAL DIRECTORANNIKA NOGUEIRA M.D. Performed By: #### M G, BMP ####[address] [address] [facility] Basic Metabolic Panelon 02-13 Anion gap [Moles/Vol] 9.3 mmol/L Normal 6.0-15.0 [facility] Comment on above: Performed By: #### B MP, MG ####[address] [address] [facility] Calcium [Mass/Vol] 8.2 mg/dL Low 8.6-10.3 [facility] Comment on above: Performed By: #### B MP, MG ####[place] [id number] [facility] Chloride [Moles/Vol] 106 mmol/L Normal 98-107 [facility] Comment on above: Performed By: #### B MP, MG ####[address] [address] [facility] CO2 [Moles/Vol] 29.4 mmol/L Normal 21.0-31.0 [facility] Comment on above: Performed By: #### B MP, MG ####[place] [id number] [facility] Creatinine [Mass/Vol] 1.66 mg/dL High 0.70-1.30 [facility] Comment on above: Performed By: #### B MP, MG ####[address] [address] [facility] Creatinine Clr Calc Pharmacy 50.50 Normal [facility] Comment on above: Performed By: #### B MP, MG ####[place] [id number] [facility] GFR/1.73 sq M.predicted MDRD (S/P/Bld) [Vol rate/Area] 42.196 mL/min/{1.73_m2} Normal [facility] Comment on above: Performed By: #### B MP, MG ####[place] [id number] [facility] Glucose [Mass/Vol] 68 mg/dL Low 70-100 [facility] Comment on above: Result Comment: [place] Glucose Reference Range is dependent on time and content of last meal. Glucose of more than 200 mg/dL in a nonstressed, ambulatory subject supports the diagnosis of Diabetes Mellitus. ADA recommended reference range Performed By: #### B MP, MG ####[address] Potassium [Moles/Vol] 3.7 mmol/L Normal 3.5-5.1 [facility] Comment on above: Performed By: #### B MP, MG ####[address] Sodium [Moles/Vol] 141 mmol/L Normal 136-145 [facility] Comment on above: Performed By: #### B MP, MG ####[address] Urea nitrogen [Mass/Vol] 26 mg/dL High 7-25 [facility] Comment on above: Performed By: #### B MP, MG ####[place] [id number] [facility] Magnesiumon 03-03-2023 Magnesium [Mass/Vol] 1.7 mg/dL Low 1.9-2.7 [facility] Comment on above: Result Comment: PERF ORMED BY:[address] [place], [place] [phone] MEDICAL DIRECTORANNIKA NOGUEIRA M.D. Performed By: #### B MP, MG ####[place] [id number] [facility] TERESE Antinuclear Antibodieson 03-02-2023 Antinuclear Abs, IFA Negative Normal . [facility] Comment on above: Result Comment: Nega tive <1:80 Borderline 1:80 Positive >1:80 ICAP nomenclature: AC-0 For more information about Hep-2 cell patterns use ANApatterns.org, the official website for the International Consensus on Antinuclear Antibody (TERESE) Patterns (ICAP). Performed at: [address] [id number] Community Development Aide: Ed Aparicio PhD, Phone: [phone] Performed By: #### A NCA PROF, TERESE, HEPACUTE ####[facility] , ANCA Profile (ANCA+MPO+PR3)o n 03-02-2023 Antimyeloperoxidase (MPO) Abs <0.2 Normal 0.0-0.9 [facility] Comment on above: Performed By: #### A NCA PROF, TERESE, HEPACUTE ####[facility] , Atypical pANCA 1:20 High Neg:<1:20 [facility] Comment on above: Result Comment: The atypical pANCA pattern has been observed in a significant percentage of patients with ulcerative colitis, primary sclerosing cholangitis and autoimmune hepatitis. Performed at: [address] [id number] Community Development Aide: Shaun Montiel MD, Phone: [phone] Performed at: [address] [id number] Community Development Aide: Ed Aparicio PhD, Phone: [phone] Performed By: #### A NCA PROF, TERESE, HEPACUTE ####[facility] , Cytoplasmic (C-ANCA) <1:20 Normal Neg:<1:20 [facility] Comment on above: Performed By: #### A NCA PROF, TERESE, HEPACUTE ####[facility] , Perinuclear (P-ANCA) <1:20 Normal Neg:<1:20 [facility] Comment on above: Result Comment: The presence of positive fluorescence exhibiting P-ANCA or C-ANCA patterns alone is not specific for the diagnosis of Monalisa's Granulomatosis (WG) or microscopic polyangiitis. Decisions about treatment should not be based solely on ANCA IFA results. The International ANCA Group Consensus recommends follow up testing of positive sera with both SD- 3 and MPO-ANCA enzyme immunoassays. As many as 5% serum samples are positive only by EIA. Ref. AM J Clin Pathol 1999;111:507-513. Performed By: #### A NCA PROF, TERESE, HEPACUTE ####[facility] , Proteinase 3 (PR3) Antibodies <0.2 Normal 0.0-0.9 [facility] Comment on above: Result Comment: PERF ORMED BY:[address] [place], [place] [phone] MEDICAL DIRECTORANNIKA NOGUEIRA M.D. Performed By: #### A NCA PROF, TERESE, HEPACUTE ####[facility] , Basic Metabolic Panelon 02-13 Anion gap [Moles/Vol] 10.2 mmol/L Normal 6.0-15.0 Th e [facility] Comment on above: Performed By: #### B MP, MG ####[address] [address] [facility] Calcium [Mass/Vol] 8.2 mg/dL Low 8.6-10.3 [facility] Comment on above: Performed By: #### B MP, MG ####[address] [address] [facility] Chloride [Moles/Vol] 108 mmol/L High 98-107 [facility] Comment on above: Performed By: #### B MP, MG ####[address] [address] [facility] CO2 [Moles/Vol] 27.6 mmol/L Normal 21.0-31.0 [facility] Comment on above: Performed By: #### B MP, MG ####[address] [address] [place] Creatinine [Mass/Vol] 1.72 mg/dL Significan t change up 0.70-1.30 [facility] Comment on above: Performed By: #### B MP, MG ####[address] [address] [place] Creatinine Clr Calc Pharmacy 48.65 Normal [facility] Comment on above: Performed By: #### B MP, MG ####[address] [address] [place] GFR/1.73 sq M.predicted MDRD (S/P/Bld) [Vol rate/Area] 40.436 mL/min/{1.73_m2} Normal [facility] Comment on above: Performed By: #### B MP, MG ####[address] [address] [facility] Glucose [Mass/Vol] 88 mg/dL Normal 70-100 [facility] Comment on above: Result Comment: [facility] Glucose Reference Range is dependent on time and content of last meal. Glucose of more than 200 mg/dL in a nonstressed, ambulatory subject supports the diagnosis of Diabetes Mellitus. ADA recommended reference range Performed By: #### B MP, MG ####[address] [address] [facility] Potassium [Moles/Vol] 3.8 mmol/L Normal 3.5-5.1 [facility] Comment on above: Performed By: #### B MP, MG ####[address] [address] [place] Sodium [Moles/Vol] 142 mmol/L Normal 136-145 [facility] Comment on above: Performed By: #### B MP, MG ####[address] [address] [facility] Urea nitrogen [Mass/Vol] 24 mg/dL Normal 7-25 [facility] Comment on above: Performed By: #### B MP, MG ####[address] [address] [place] Creatine Kinaseon 03-02-2023 CK [Catalytic activity/Vol] 36 U/L Normal 30-223 [facility] Comment on above: Result Comment: PERF ORMED BY:[address] [place], [place] [phone] MEDICAL JADEN NOGUEIRA M.D. Performed By: #### I FE SERUM, SPE, KAPPA ####[facility] ,#### CK ####[place] [id number] [facility] Ferritinon 03-02-2023 Ferritin [Mass/Vol] 77.4 ng/mL Normal 23.9-336.2 [facility] Comment on above: Performed By: #### V [id number], NICK, FE and TIBC ####[address] Free K+L LT Chains, Qn, Son 03-02-2023 Free [place] Light Chains, S 97.6 mg/L High 3.3-19.4 [facility] Comment on above: Performed By: #### I FE SERUM, SPE, KAPPA ####[facility] ,#### CK ####[address] Free Lambda Light Chains, S 77.9 mg/L High 5.7-26.3 [facility] Comment on above: Performed By: #### I FE SERUM, SPE, KAPPA ####[facility] ,#### CK ####[address] [place]/Lambda Ratio, S 1.25 Normal 0.26-1.65 [facility] Comment on above: Result Comment: Perf ormed at: - [facility] [address] [id number] Community Development Aide: Ed Aparicio PhD, Phone: [phone] BY:[address] [place], [place] [phone] MEDICAL DIRECTORANNIKA NOGUEIRA M.D. Performed By: #### I FE SERUM, SPE, KAPPA ####[facility] ,#### CK ####[address] Hepatitis Acute Panelon 02-13 HBsAg Screen Negative Normal Negative [facility] Comment on above: Performed By: #### A NCA PROF, TERESE, HEPACUTE ####[facility] , Hepatitis A Antibody IgM Negative Normal Negative [facility] Comment on above: Performed By: #### A NCA PROF, TERESE, HEPACUTE ####[facility] , Hepatitis B Core Antibody IgM Negative Normal Negative [facility] Comment on above: Performed By: #### A NCA PROF, TERESE, HEPACUTE ####[facility] , Hepatitis C Virus Antibody Non-Reactive Normal Non Reactive [facility] Comment on above: Performed By: #### A NCA PROF, TERESE, HEPACUTE ####[facility] , Interpretation Hepatitis C Normal . [facility] Comment on above: Result Comment: Not infected with HCV unless early or acute infection is suspected (which may be delayed in an immunocompromised individual), or other evidence exists to indicate HCV infection. Performed at: [address] [id number] Community Development Aide: Ed Aparicio PhD, Phone: [phone] BY:[facility] [place], [place] [phone] MEDICAL DIRECTORANNIKA NOGUEIRA M.D. Performed By: #### A NCA PROF, TERESE, HEPACUTE ####[facility] , Immunofixation, (CHUNG), Urine on 03-02-2023 Immunofixation, (CHUNG), Urine Comment: Normal . [facility] Comment on above: Result Comment: CHUNG shows asymmetrical IgA suggestive of a monoclonal protein. Suggest serum CHUNG and free light chain analysis if clinically indicated. Performed at: [facility] [employer] [id number] Community Development Aide: Ed Aparicio PhD, Phone: [phone] Performed By: #### U PE RAND, CHUNG,URINE ####[facility] , Immunofixation,Serumon 03-02 Immunofixation, Serum Abnormal . 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 Performed By: #### I FE SERUM, SPE, KAPPA ####[facility] ,#### CK ####[place] [id number] [facility] Immunoglobulin A, Serum 598 mg/dL High 61-437 [facility] Comment on above: Performed By: #### I FE SERUM, SPE, KAPPA ####[facility] ,#### CK ####[place] [address] [facility] Immunoglobulin G 1541 mg/dL Normal 603-1613 [facility] Comment on above: Performed By: #### I FE SERUM, SPE, KAPPA ####[facility] ,#### CK ####[place] [address] [facility] Immunoglobulin M, Serum 73 mg/dL Normal 15-143 [facility] Comment on above: Result Comment: Perf ormed at: CB - [facility] [place] [id number] Community Development Aide: Ed Aparicio PhD, Phone: [phone] Performed By: #### I FE SERUM, SPE, KAPPA ####[facility] ,#### CK ####[place] [address] [facility] Iron and TIBC Profileon 02-13 % Iron Saturation 11.9 % Low 20-50 [facility] Comment on above: Performed By: #### V [id number], NICK, FE and TIBC ####[place] [id number] [facility] Iron [Mass/Vol] 39 ug/dL Low 50-212 [facility] Comment on above: Performed By: #### V [id number], NICK, FE and TIBC ####[place] [id number] [facility] Total Iron Binding Capacity 329 ug/dL Normal 255-450 [facility] Comment on above: Performed By: #### V [id number], NICK, FE and TIBC ####[facility] [place] [address] [facility] Transferrin [Mass/Vol] 235 mg/dL Normal 203-362 [facility] Comment on above: Performed By: #### V [id number], NICK, FE and TIBC ####[facility] [place] [address] [facility] Magnesiumon 03-02-2023 Magnesium [Mass/Vol] 1.8 mg/dL Low 1.9-2.7 [facility] Comment on above: Result Comment: PERF ORMED BY:[address], [place] [phone] MEDICAL DIRECTORANNIKA NOGUEIRA M.D. Performed By: #### B MP, MG ####[place] [address] [place] [address] [facility] Protein Electro, Random Urin addison 03-02-2023 Albumin, Urine 72.5 % Normal . [facility] Comment on above: Performed By: #### U PE RAND, CHUNG,URINE ####[facility] , Pvsss-7-Temfzwtc, Urine 0.8 % Normal . [facility] Comment on above: Performed By: #### U PE RAND, CHUNG,URINE ####[facility] , Laimr-4-Qncicmjl, Urine 3.5 % Normal . [facility] Comment on above: Performed By: #### U PE RAND, CHUNG,URINE ####[facility] , Beta Globulin, Urine 11.5 % Normal . [facility] Comment on above: Performed By: #### U PE RAND, CHUNG,URINE ####[facility] , Gamma Globulin, Urine 11.8 % Normal . [facility] Comment on above: Performed By: #### U PE RAND, CHUNG,URINE ####[facility] , M-Saran % Not Observed Normal Not Observed [facility] Comment on above: Performed By: #### U PE RAND, CHUNG,URINE ####[facility] , Please Note: Normal . [facility] Comment on above: Result Comment: Prot ein electrophoresis scan will follow via computer, mail, or per diem interpreter delivery.PERFORMED BY:[address] [place], [place] [phone] MEDICAL DIRECTORANNIKA NOGUEIRA M.D. Performed By: #### U PE RAND, CHUNG,URINE ####[facility] , Protein (U) [Mass/Vol] 105.2 mg/dL Normal Not Estab. T he [facility] Comment on above: Performed By: #### U PE RAND, CHUNG,URINE ####[facility] , Protein Electrophoresis, Ser umon 03-02-2023 Albumin [Mass/Vol] 3.2 g/dL Normal 2.9-4.4 [facility] Comment on above: Performed By: #### I FE SERUM, SPE, KAPPA ####[facility] ,#### CK ####[address] Albumin/Globulin [Mass ratio] 0.9 {ratio} Normal 0.7-1.7 [facility] Comment on above: Performed By: #### I FE SERUM, SPE, KAPPA ####[facility] ,#### CK ####[address] Zxnas-4-Ayawuuay 0.3 g/dL Normal 0.0-0.4 [facility] Comment on above: Performed By: #### I FE SERUM, SPE, KAPPA ####[facility] ,#### CK ####[address] Ptuwr-3-Qwkopiyd 0.8 g/dL Normal 0.4-1.0 [facility] Comment on above: Performed By: #### I FE SERUM, SPE, KAPPA ####[facility] ,#### CK ####[address] Beta Globulin 1.1 g/dL Normal 0.7-1.3 [facility] Comment on above: Performed By: #### I FE SERUM, SPE, KAPPA ####[facility] ,#### CK ####[address] Gamma Globulin 1.5 g/dL Normal 0.4-1.8 [facility] Comment on above: Performed By: #### I FE SERUM, SPE, KAPPA ####[facility] ,#### CK ####[address] Globulin (S) [Mass/Vol] 3.7 g/dL Normal 2.2-3.9 [facility] Comment on above: Performed By: #### I FE SERUM, SPE, KAPPA ####[facility] ,#### CK ####[address] M-Saran Comment: Normal Not Observed [facility] Comment on above: Result Comment: Asym metrical gamma Performed By: #### I FE SERUM, SPE, KAPPA ####[facility] ,#### CK ####[address] Protein [Mass/Vol] 6.9 g/dL Normal 6.0-8.5 [facility] Comment on above: Performed By: #### I FE SERUM, SPE, KAPPA ####[facility] ,#### CK ####[address] SPE-Note Normal . [facility] Comment on above: Result Comment: Prot ein electrophoresis scan will follow via computer, mail, or per diem interpreter delivery. Performed at: [address] [id number] Community Development Aide: Ed Aparicio PhD, Phone: [phone] Performed By: #### I FE SERUM, SPE, KAPPA ####[facility] ,#### CK ####[address] US renal BIon 03-02-2023 US renal BI Normal [facility] Vit. B12/Folate Profileon Cobalamin (Vitamin B12) [Mass/Vol] 190 pg/mL Normal 180-914 [facility] Comment on above: Performed By: #### V [id number], NICK, FE and TIBC ####[address] Folate 7.6 ng/mL Normal >5.9 [facility] Comment on above: Result Comment: Cecy te reference range: >5.9 ng/ml The WHO technical consultation on folate and vitamin b12 deficiencies has determined that folate concentrations less than 4 ng/ml are considered deficient.PERFORMED BY:[address] [place], [place] [phone] MEDICAL DIRECTORANNIKA NOGUEIRA M.D. Performed By: #### V [id number], NICK, FE and TIBC ####[address] Basic Metabolic Panelon 02-13 Anion gap [Moles/Vol] 11.1 mmol/L Normal 6.0-15.0 Th e [facility] Comment on above: Performed By: #### M G, BMP, SCAN CBC ####[address] Calcium [Mass/Vol] 8.7 mg/dL Normal 8.6-10.3 [facility] Comment on above: Performed By: #### M G, BMP, SCAN CBC ####[address] Chloride [Moles/Vol] 109 mmol/L High 98-107 [facility] Comment on above: Performed By: #### M G, BMP, SCAN CBC ####[facility] [place] [address] [place] CO2 [Moles/Vol] 25.4 mmol/L Normal 21.0-31.0 [facility] Comment on above: Performed By: #### M G, BMP, SCAN CBC ####[place] [address] [place] [address] [place] Creatinine [Mass/Vol] 1.22 mg/dL Normal 0.70-1.30 [facility] Comment on above: Performed By: #### M G, BMP, SCAN CBC ####[place] [address] [place] [id number] [place] Creatinine Clr Calc Pharmacy 66.27 Normal [facility] Comment on above: Performed By: #### M G, BMP, SCAN CBC ####[place] [address] [place] [address] [place] GFR/1.73 sq M.predicted MDRD (S/P/Bld) [Vol rate/Area] mL/min/{1.73_m2} Normal [facility] Comment on above: Performed By: #### M G, BMP, SCAN CBC ####[place] [address] [place] [id number] [facility] Glucose [Mass/Vol] 149 mg/dL High 70-100 [facility] Comment on above: Result Comment: [place] Glucose Reference Range is dependent on time and content of last meal. Glucose of more than 200 mg/dL in a nonstressed, ambulatory subject supports the diagnosis of Diabetes Mellitus. ADA recommended reference range Performed By: #### M G, BMP, SCAN CBC ####[address] [place] [address] [facility] Potassium [Moles/Vol] 3.5 mmol/L Normal 3.5-5.1 [facility] Comment on above: Performed By: #### M G, BMP, SCAN CBC ####[facility] [place] [address] [place] Sodium [Moles/Vol] 142 mmol/L Normal 136-145 [facility] Comment on above: Performed By: #### M G, BMP, SCAN CBC ####[id number] [facility] Urea nitrogen [Mass/Vol] 17 mg/dL Normal 7-25 [facility] Comment on above: Performed By: #### M G, BMP, SCAN CBC ####[address] [address] [facility] Magnesiumon 03-01-2023 Magnesium [Mass/Vol] 1.7 mg/dL Low 1.9-2.7 [facility] Comment on above: Result Comment: PERF ORMED BY:[address] [place], [place] [id number] MEDICAL DIRECTORANNIKA NOGUEIRA M.D. Performed By: #### M G, BMP, SCAN CBC ####[address] Scan and CBCon 03-01-2023 Anisocytosis Ql (Bld) Slight Normal [facility] Comment on above: Performed By: #### M G, BMP, SCAN CBC ####[address] [address] [facility] Basophils (Bld) [#/Vol] 0.0 10*3/uL Normal 0.0-0.2 [facility] Comment on above: Performed By: #### M G, BMP, SCAN CBC ####[id number] [facility] Basophils/100 WBC (Bld) 0.5 % Normal . [facility] Comment on above: Performed By: #### M G, BMP, SCAN CBC ####[id number] [facility] Eosinophils (Bld) [#/Vol] 0.3 10*3/uL Normal 0.0-0.45 [facility] Comment on above: Performed By: #### M G, BMP, SCAN CBC ####[id number] [facility] Eosinophils/100 WBC (Bld) 5.2 % Normal . [facility] Comment on above: Performed By: #### M G, BMP, SCAN CBC ####[address] Erythrocyte distribution width (RBC) [Ratio] 15.1 % High 12.0-14.8 [facility] Comment on above: Performed By: #### M G, BMP, SCAN CBC ####[address] Hematocrit (Bld) [Volume fraction] 34.1 % Low 38.8-50.0 [facility] Comment on above: Performed By: #### M G, BMP, SCAN CBC ####[address] Hemoglobin (Bld) [Mass/Vol] 11.3 g/dL Low 13.0-17.0 [facility] Comment on above: Performed By: #### M G, BMP, SCAN CBC ####[address] Large Platelets Slight Normal [facility] Comment on above: Result Comment: PERF ORMED BY:[address] [place], [place] [phone] MEDICAL DIRECTORANNIKA NOGUEIRA M.D. Performed By: #### M G, BMP, SCAN CBC ####[address] Lymphocytes (Bld) [#/Vol] 1.3 10*3/uL Normal 1.00-4.8 [facility] Comment on above: Performed By: #### M G, BMP, SCAN CBC ####[address] Lymphocytes/100 WBC (Bld) 22.7 % Normal . [facility] Comment on above: Performed By: #### M G, BMP, SCAN CBC ####[address] MCH (RBC) [Entitic mass] 32.9 pg Normal 27.5-35.2 [facility] Comment on above: Performed By: #### M G, BMP, SCAN CBC ####[address] MCV (RBC) [Entitic vol] 99.4 fL Normal 83.5-101 [facility] Comment on above: Performed By: #### M G, BMP, SCAN CBC ####[address] Mean Corpuscular HGB Conc 33.1 g/dL Normal 32.5-35.6 [facility] Comment on above: Performed By: #### M G, BMP, SCAN CBC ####[address] Monocytes (Bld) [#/Vol] 0.6 10*3/uL Normal 0.0-0.8 [facility] Comment on above: Performed By: #### M G, BMP, SCAN CBC ####[address] Monocytes/100 WBC (Bld) 10.6 % Normal . [facility] Comment on above: Performed By: #### M G, BMP, SCAN CBC ####[address] Neutrophils (Bld) [#/Vol] 3.6 10*3/uL Normal 1.8-7.7 [facility] Comment on above: Performed By: #### M G, BMP, SCAN CBC ####[address] Neutrophils/100 WBC (Bld) 61.0 % Normal . [facility] Comment on above: Performed By: #### M G, BMP, SCAN CBC ####[address] NRBC% 0.1 /100{WBC} Normal 0-0.5 [facility] Comment on above: Performed By: #### M G, BMP, SCAN CBC ####[address] Ovalocytes Slight Normal [facility] Comment on above: Performed By: #### M G, BMP, SCAN CBC ####[id number] [facility] Platelet Estimate Decreased Normal Normal [facility] Comment on above: Performed By: #### M G, BMP, SCAN CBC ####[id number] [facility] Platelet mean volume (Bld) [Entitic vol] 10.2 fL High 6.6-10.1 [facility] Comment on above: Performed By: #### M G, BMP, SCAN CBC ####[address] Platelets (Bld) [#/Vol] 145 10*3/uL Low 150-450 [facility] Comment on above: Performed By: #### M G, BMP, SCAN CBC ####[address] Poikilocytosis Slight Normal [facility] Comment on above: Performed By: #### M G, BMP, SCAN CBC ####[address] Polychromasia Slight Normal [facility] Comment on above: Performed By: #### M G, BMP, SCAN CBC ####[id number] [facility] RBC (Bld) [#/Vol] 3.44 10*6/uL Low 3.90-5.60 [facility] Comment on above: Performed By: #### M G, BMP, SCAN CBC ####[address] WBC (Bld) [#/Vol] 5.8 10*3/uL Normal 4.1-10.5 [facility] Comment on above: Performed By: #### M G, BMP, SCAN CBC ####[place] [id number] [facility] Alanine aminotransferase [En zymatic activity/volume] in Serum or PlasmaOrdered By: Christi Wilson on 02-28-2023 ALT [Catalytic activity/Vol] 8 U/L Normal 7-52 [facility] Comment on above: Performed By: #### H S TROP, CMP, CBC, BNP ####[address] Albumin [Mass/volume] in Ser um or Plasma by Bromocresol green (BCG) dye binding methoOrdered By: Christi Wilson on 02-28-2023 Albumin BCG dye [Mass/Vol] 3.5 g/dL 3.5-5.7 [facility] Alkaline phosphatase [Enzyma tic activity/volume] in Serum or PlasmaOrdered By: Christi Wilson on 02-28-2023 ALP [Catalytic activity/Vol] 79 U/L Normal 34-104 [facility] Comment on above: Performed By: #### H S TROP, CMP, CBC, BNP ####[address] Aspartate aminotransferase [ Enzymatic activity/volume] in Serum or PlasmaOrdered By: Christi Wilson on 02-28-2023 AST [Catalytic activity/Vol] 14 U/L Normal 13-39 [facility] Comment on above: Performed By: #### H S TROP, CMP, CBC, BNP ####[address] Automated basophil %Ordered By: Christi Wilson on 02-28-2023 Basophils/100 WBC (Bld) 0.6 % Normal . [facility] Comment on above: Performed By: #### H S TROP, CMP, CBC, BNP ####[address] Automated basophil countOrde red By: Christi Wilson on 02-28-2023 Basophils (Bld) [#/Vol] 0.0 10*3/uL Normal 0.0-0.2 [facility] Comment on above: Result Comment: PERF ORMED BY:[address] [place], [place] [phone] MEDICAL DIRECTORANNIKA NOGUEIRA M.D. Performed By: #### H S TROP, CMP, CBC, BNP ####[place] [address] Automated blood monocyte cou ntOrdered By: Christi Wilson on 02-28-2023 Monocytes (Bld) [#/Vol] 0.7 10*3/uL Normal 0.0-0.8 [facility] Comment on above: Performed By: #### H S TROP, CMP, CBC, BNP ####[address] Automated eosinophil %Ordere d By: Christi Wilson on 02-28-2023 Eosinophils/100 WBC (Bld) 3.5 % Normal . [facility] Comment on above: Performed By: #### H S TROP, CMP, CBC, BNP ####[address] Automated eosinophil countOr dered By: Christi Wilson on 02-28-2023 Eosinophils (Bld) [#/Vol] 0.2 10*3/uL Normal 0.0-0.45 [facility] Comment on above: Performed By: #### H S TROP, CMP, CBC, BNP ####[address] Automated monocyte %Ordered By: Christi Wilson on 02-28-2023 Monocytes/100 WBC (Bld) 11.1 % Normal . [facility] Comment on above: Performed By: #### H S TROP, CMP, CBC, BNP ####[address] Automated neutrophil %Ordere d By: Christi Wilson on 02-28-2023 Neutrophils/100 WBC (Bld) 61.8 % Normal . [facility] Comment on above: Performed By: #### H S TROP, CMP, CBC, BNP ####[address] BNP ser/plasOrdered By: Lj Wilson on 02-28-2023 Natriuretic peptide B (Bld) [Mass/Vol] 607.0 pg/mL High 5-100 [facility] Comment on above: Result Comment: PERF ORMED BY:[address] [place], [place] [phone] MEDICAL DIRECTORANNIKA NOGUEIRA M.D. Performed By: #### H S TROP, CMP, CBC, BNP ####[address] Bilirubin.total [Mass/volume ] in Serum or PlasmaOrdered By: Christi Wilson on 02-28-2023 Bilirubin [Mass/Vol] 0.5 mg/dL Normal 0.3-1.0 [facility] Comment on above: Performed By: #### H S TROP, CMP, CBC, BNP ####[address] cervical spine wo conon 0 02-28-2023 CT cervical spine wo con Normal [facility] CT head/brain wo conon 02-28 CT head/brain wo con Normal [facility] Calcium [Mass/volume] in Ser um or PlasmaOrdered By: Christi Wilson on 02-28-2023 Calcium [Mass/Vol] 8.8 mg/dL Normal 8.6-10.3 [facility] Comment on above: Performed By: #### H S TROP, CMP, CBC, BNP ####[address] Carbon dioxide, total [Moles /volume] in Serum or PlasmaOrdered By: Christi Wilson on 02-28-2023 CO2 [Moles/Vol] 26.3 mmol/L Normal 21.0-31.0 [facility] Comment on above: Performed By: #### H S TROP, CMP, CBC, BNP ####[address] Chloride [Moles/volume] in S sammy or PlasmaOrdered By: Christi Wilson on 02-28-2023 Chloride [Moles/Vol] 110 mmol/L High 98-107 [facility] Comment on above: Performed By: #### H S TROP, CMP, CBC, BNP ####[address] Complete Blood Count Auto Di ffon 02-28-2023 Mean Corpuscular HGB Conc 32.6 g/dL Normal 32.5-35.6 [facility] Comment on above: Performed By: #### H S TROP, CMP, CBC, BNP ####[id number] [facility] Monocytes/100 WBC (Bld) 19.20 % Normal 0.00-20.00 [facility] Comment on above: Performed By: #### H S TROP, CMP, CBC, BNP ####[address] NRBC% 0.2 /100{WBC} Normal 0-0.5 [facility] Comment on above: Performed By: #### H S TROP, CMP, CBC, BNP ####[id number] [facility] Comprehensive Metabolic Pane negro 02-28-2023 Albumin [Mass/Vol] 3.5 g/dL Normal 3.5-5.7 [facility] Comment on above: Performed By: #### H S TROP, CMP, CBC, BNP ####[address] Creatinine Clr Calc Pharmacy 67.22 Normal [facility] Comment on above: Result Comment: PERF ORMED BY:[address]COR[place], [place] [phone] MEDICAL JADEN NOGUEIRA M.D. Performed By: #### H S TROP, CMP, CBC, BNP ####[place] [id number] [facility] GFR/1.73 sq M.predicted MDRD (S/P/Bld) [Vol rate/Area] mL/min/{1.73_m2} Normal [facility] Comment on above: Performed By: #### H S TROP, CMP, CBC, BNP ####[place] [id number] [facility] Creatinine [Mass/volume] in Serum or PlasmaOrdered By: Christi Wilson on 02-28-2023 Creatinine [Mass/Vol] 1.07 mg/dL Normal 0.70-1.30 [facility] Comment on above: Performed By: #### H S TROP, CMP, CBC, BNP ####[address] [place] [address] [facility] Dipstick and Microscopicon 0 02-28-2023 Appearance (U) Clear Normal Clear [facility] Comment on above: Order Comment: Name Collection Type:: Clean-Voided Midstream Performed By: #### A DDONUAPLUS ####[address] [address] [facility] Bacteria,Urine None Seen Normal None Seen [facility] Comment on above: Order Comment: Name Collection Type:: Clean-Voided Midstream Performed By: #### A DDONUAPLUS ####[address] [address] [facility] Bilirubin,Urine Negative Normal Negative [facility] Comment on above: Order Comment: Name Collection Type:: Clean-Voided Midstream Performed By: #### A DDONUAPLUS ####[address] [address] [facility] Color (U) Yellow Normal Yellow [facility] Comment on above: Order Comment: Name Collection Type:: Clean-Voided Midstream Performed By: #### A DDONUAPLUS ####[address] [address] [facility] Glucose Ql (U) Normal Normal Normal [facility] Comment on above: Order Comment: Name Collection Type:: Clean-Voided Midstream Performed By: #### A DDONUAPLUS ####[address] [address] [facility] Hyaline Casts,Urine 0-8 Normal 0-8 [facility] Comment on above: Order Comment: Name Collection Type:: Clean-Voided Midstream Result Comment: PERF ORMED BY:[address] [place], [place] [phone] MEDICAL DIRECTORANNIKA NOGUEIRA M.D. Performed By: #### A DDONUAPLUS ####[address] [place] [address] [facility] Ketones Ql (U) Negative Normal Negative [facility] Comment on above: Order Comment: Name Collection Type:: Clean-Voided Midstream Performed By: #### A DDONUAPLUS ####[address] [address] [facility] Leukocyte esterase Test strip Ql (U) Negative Normal Negative [facility] Comment on above: Order Comment: Name Collection Type:: Clean-Voided Midstream Performed By: #### A DDONUAPLUS ####[address] [address] [place] Nitrite,Urine Negative Normal Negative [facility] Comment on above: Order Comment: Name Collection Type:: Clean-Voided Midstream Performed By: #### A DDONUAPLUS ####[address] [address] [facility] Occult Blood,Urine Trace High Negative [facility] Comment on above: Order Comment: Name Collection Type:: Clean-Voided Midstream Result Comment: PERF ORMED BY:[address] [place]Curt[place]COR[place], [place] [phone] MEDICAL JADEN NOGUEIRA M.D. Performed By: #### A DDONUAPLUS ####[address] [address] [facility] pH (U) 6.0 [pH] Normal 5.0-9.0 [facility] Comment on above: Order Comment: Name Collection Type:: Clean-Voided Midstream Performed By: #### A DDONUAPLUS ####[address] [address] [place] Protein,Urine >=300 High Negative [facility] Comment on above: Order Comment: Name Collection Type:: Clean-Voided Midstream Performed By: #### A DDONUAPLUS ####[address] [address] [place] RBC LM.HPF (Urine sed) [#/Area] 0 /[HPF] Normal 0-4 [facility] Comment on above: Order Comment: Name Collection Type:: Clean-Voided Midstream Performed By: #### A DDONUAPLUS ####[address] Specificy Clio,Urine 1.030 Normal 1.001-1.03 0 [facility] Comment on above: Order Comment: Name Collection Type:: Clean-Voided Midstream Performed By: #### A DDONUAPLUS ####[address] Squamous Epithelial Cell,Urine None Seen Normal 0-2 [facility] Comment on above: Order Comment: Name Collection Type:: Clean-Voided Midstream Performed By: #### A DDONUAPLUS ####[address] Urobilinogen,Urine Normal Normal Normal [facility] Comment on above: Order Comment: Name Collection Type:: Clean-Voided Midstream Performed By: #### A DDONUAPLUS ####[address] WBC LM.HPF (Urine sed) [#/Area] 0 /[HPF] Normal 0-4 [facility] Comment on above: Order Comment: Name Collection Type:: Clean-Voided Midstream Performed By: #### A DDONUAPLUS ####[address] ECG 12 lead ECGon 02-28-2023 ECG 12 lead ECG Normal [facility] Erythrocyte distribution wid th [Ratio] by Automated countOrdered By: Christi Wilson on 02-28-2023 Erythrocyte distribution width (RBC) [Ratio] 14.8 % Normal 12.0-14.8 [facility] Comment on above: Performed By: #### H S TROP, CMP, CBC, BNP ####[address] Erythrocytes [#/volume] in B lood by Automated countOrdered By: Christi Wilson on 02-28-2023 RBC (Bld) [#/Vol] 3.48 10*6/uL Low 3.90-5.60 [facility] Comment on above: Performed By: #### H S TROP, CMP, CBC, BNP ####[address] [address] Glucose [Mass/volume] in Ser um or PlasmaOrdered By: Christi Wilson on 02-28-2023 Glucose [Mass/Vol] 108 mg/dL High 70-100 [facility] Comment on above: ADA recommended refe rence rangeRandom Glucose Reference Range is dependent on time and content of last meal. Glucose of more than 200 mg/dL in a nonstressed, ambulatory subject supports the diagnosis of Diabetes Mellitus. Result Comment: [place] om Glucose Reference Range is dependent on time and content of last meal. Glucose of more than 200 mg/dL in a nonstressed, ambulatory subject supports the diagnosis of Diabetes Mellitus. ADA recommended reference range Performed By: #### H S TROP, CMP, CBC, BNP ####[address] [address] Hematocrit [Volume Fraction] of Blood by Automated countOrdered By: Christi Wilson on 02-28-2023 Hematocrit (Bld) [Volume fraction] 34.9 % Low 38.8-50.0 [facility] Comment on above: Performed By: #### H S TROP, CMP, CBC, BNP ####[facility] [place] [id number] [facility] Hemoglobin [Mass/volume] in BloodOrdered By: Christi Wilson on 02-28-2023 Hemoglobin (Bld) [Mass/Vol] 11.4 g/dL Low 13.0-17.0 [facility] Comment on above: Performed By: #### H S TROP, CMP, CBC, BNP ####[place] [id number] [facility] Leukocytes [#/volume] correc michelle for nucleated erythrocytes in Blood by Automated counOrdered By: Christi Wilson on 02-28-2023 WBC corrected for nucl RBC Auto (Bld) [#/Vol] 6.3 10*3/uL 4.1-10.5 [facility] Leukocytes [#/volume] in Blo od by Automated countOrdered By: Christi Wilson on 02-28-2023 WBC (Bld) [#/Vol] 6.3 10*3/uL Normal 4.1-10.5 [facility] Comment on above: Performed By: #### H S TROP, CMP, CBC, BNP ####[address] Lymphocytes [#/volume] in Bl ood by Automated countOrdered By: Christi Wilson on 02-28-2023 Lymphocytes (Bld) [#/Vol] 1.4 10*3/uL Normal 1.00-4.8 [facility] Comment on above: Performed By: #### H S TROP, CMP, CBC, BNP ####[address] Lymphocytes/100 leukocytes i n Blood by Automated countOrdered By: Christi Wilson on 02-28-2023 Lymphocytes/100 WBC (Bld) 23.0 % Normal . [facility] Comment on above: Performed By: #### H S TROP, CMP, CBC, BNP ####[address] MCH [Entitic mass] by Automa michelle countOrdered By: Christi Wilson on 02-28-2023 MCH (RBC) [Entitic mass] 32.7 pg Normal 27.5-35.2 [facility] Comment on above: Performed By: #### H S TROP, CMP, CBC, BNP ####[address] MCHC Auto (RBC) [Mass/Vol]Or dered By: Christi Wilson on 02-28-2023 MCHC (RBC) [Mass/Vol] 32.6 g/dL 32.5-35.6 [facility] MCV [Entitic volume] by Auto mated countOrdered By: Chrsiti Wilson on 02-28-2023 MCV (RBC) [Entitic vol] 100.3 fL Normal 83.5-101 [facility] Comment on above: Performed By: #### H S TROP, CMP, CBC, BNP ####[address] Monocyte distribution width [Entitic volume] in Blood by AutomatedOrdered By: Christi Wilson on 02-28-2023 Monocyte distribution width Auto (Bld) [Entitic vol] 19.20 % 0.00-20.00 [facility] Neutrophils [#/volume] in Bl ood by Automated countOrdered By: Christi Wilson on 02-28-2023 Neutrophils (Bld) [#/Vol] 3.9 10*3/uL Normal 1.8-7.7 [facility] Comment on above: Performed By: #### H S TROP, CMP, CBC, BNP ####[address] No Panel InformationOrdered By: Chirsti Wilson on 02-28-2023 Estimated GFR (CKD-EPI) > 60.0 mL/Min [facility] Creatinine Clearance (Chem 67.22 [facility] Nucleated erythrocytes [Pres ence] in Blood by Automated countOrdered By: Christi Wilson on 02-28-2023 Nucleated RBC Auto Ql (Bld) 0.2 /100{WBC} 0-0.5 [facility] Platelet mean volume [Entiti c volume] in Blood by Automated countOrdered By: Christi Wilson on 02-28-2023 Platelet mean volume (Bld) [Entitic vol] 9.7 fL Normal 6.6-10.1 [facility] Comment on above: Performed By: #### H S TROP, CMP, CBC, BNP ####[address] Platelets [#/volume] in Bloo d by Automated countOrdered By: Christi Wilson on 02-28-2023 Platelets (Bld) [#/Vol] 137 10*3/uL Low 150-450 [facility] Comment on above: Performed By: #### H S TROP, CMP, CBC, BNP ####[address] Potassium [Moles/volume] in Serum or PlasmaOrdered By: Christi Wilson on 02-28-2023 Potassium [Moles/Vol] 3.8 mmol/L Normal 3.5-5.1 [facility] Comment on above: Performed By: #### H S TROP, CMP, CBC, BNP ####[address] [place] [address] [facility] Protein Creat Ratio Ur Rando mon 02-28-2023 Creatinine, Urine (Random) 148.0 mg/dL High 14.0-26.0 [facility] Comment on above: Order Comment: Comme nt Add on to yesterday's UA if possible Performed By: #### U RTP, PROCRERAT ####[address] [place] [address] [facility] Protein (U) [Mass/Vol] 468 mg/dL High 0-9 e [facility] Comment on above: Order Comment: Comme nt Add on to yesterday's UA if possible Performed By: #### U RTP, PROCRERAT ####[address] [address] [facility] Result Comment: PERF ORMED BY:[address] [place], [place] [phone] MEDICAL DIRECTORANNIKA NOGUEIRA M.D. Urine Protein/Creatinine Ratio 3162 mg/g{Cre} High 0-200 [facility] Comment on above: Order Comment: Comme nt Add on to yesterday's UA if possible Performed By: #### U RTP, PROCRERAT ####[address] [address] [facility] Protein [Mass/volume] in Ser um or PlasmaOrdered By: Christi Wilson on 02-28-2023 Protein [Mass/Vol] 7.2 g/dL Normal 6.4-8.9 [facility] Comment on above: Performed By: #### H S TROP, CMP, CBC, BNP ####[address] [address] [facility] Serum globulin measurement b y calculation (mass/volume)Ordered By: Christi Wilson on 02-28-2023 Globulin (S) [Mass/Vol] 3.7 g/dL [facility] Comment on above: Performed By: #### H S TROP, CMP, CBC, BNP ####[place] [id number] [facility] Serum or plasma albumin/glob ulin mass ratioOrdered By: Christi Wilson on 02-28-2023 Albumin/Globulin [Mass ratio] 0.9 {ratio} [facility] Comment on above: Performed By: #### H S TROP, CMP, CBC, BNP ####[place] [id number] [facility] Serum or plasma anion gap de terminationOrdered By: Christi Wilson on 02-28-2023 Anion gap [Moles/Vol] 9.5 mmol/L Normal 6.0-15.0 [facility] Comment on above: Performed By: #### H S TROP, CMP, CBC, BNP ####[address] Sodium [Moles/volume] in Ser um or PlasmaOrdered By: Christi Wilson on 02-28-2023 Sodium [Moles/Vol] 142 mmol/L Normal 136-145 [facility] Comment on above: Performed By: #### H S TROP, CMP, CBC, BNP ####[place] [id number] [facility] Troponin I High Sensitivityo n 02-28-2023 Troponin I High Sensitivity 108.4 pg/mL Off scale high 0.0-20.0 [facility] Comment on above: Result Comment: Crit ical Result : Called to and read back by: NIEVES TILLEY at: 02/28/2023 18:06:31 by:ELIZABETHPERFORMED BY:[address]WE[address] [place], [place] [phone] MEDICAL DIRECTORANNIKA NOGUEIRA M.D. Performed By: #### H S TROP ####[place] [id number] [facility] Troponin I High Sensitivity 102.9 pg/mL Off scale high 0.0-20.0 [facility] Comment on above: Result Comment: Crit ical Result : Called to and read back by: SERINA SHERMAN at: 02/28/2023 16:33:10 by:MORENOFORMED BY:[facility] [place] [address] [place], [place] [phone] MEDICAL DIRECTORANNIKA NOGUEIRA M.D. Performed By: #### H S TROP, CMP, CBC, BNP ####[facility] [place] [address] [facility] Troponin I.cardiac [Mass/vol ume] in Serum or Plasma by Detection limit <= 0.01 ng/Ordered By: Christi Wilson on 02-28-2023 Troponin I.cardiac DL <= 0.01 ng/mL [Mass/Vol] 108.4 pg/mL 0.0-20.0 [facility] Comment on above: Critical Result : Ca lled to and read back by: NIEVES TILLEY at: 02/28/2023 18:06:31 by:ELIZABETH Urea nitrogen [Mass/volume] in Serum or PlasmaOrdered By: Christi Wilson on 02-28-2023 Urea nitrogen [Mass/Vol] 13 mg/dL Normal 7-25 [facility] Comment on above: Performed By: #### H S TROP, CMP, CBC, BNP ####[place] [address] [place] [address] [facility] XR shoulder LT min 2V*on XR shoulder LT min 2V* Normal Th [facility] US.doppler Carotid arteries - bilateralon 02-16-2023 [place] [address] and Vascular Lab Report VASC US CAROTID ARTERY DUPLEX BILATERAL Patient Name: HILARY MALDONADO Reading Physician: [id number] González Castillo MD, RPVI Study Date: 02/16/2023 Ordering Physician: [id number] OLSON MRN/PID: [id number] Technologist: Pollo Petty RVPoonam Technologist 2: Date of /Age: 12 1945 / 78 years Gender: M Admission Status: Outpatient Location Performed: [facility] Diagnosis/ICD: Occlusion and stenosis of right carotid artery-I65.21 CPT Codes: 01067 Cerebrovascular Carotid Duplex scan complete Patient History CAD. Smoker: Current. CONCLUSIONS: Right Carotid: Findings are consistent with 50 to 69% stenosis of the right proximal internal carotid artery. Laminar flow seen by color Doppler. Right external carotid artery appears patent with no evidence of stenosis. The right vertebral artery is patent with antegrade flow. No evidence of hemodynamically significant stenosis in the right subclavian artery. Left Carotid: Findings are consistent with an occlusion of the left internal carotid artery. ECA patent retrograde branches. Unable to obtain a doppler dignal in the left CCA that is suggestive of occlusion. The left vertebral artery is patent with antegrade flow. No evidence of hemodynamically significant stenosis in the left subclavian artery. Additional Findings: Technically difficult exam due to heavy breathing and patient anatomy. Imaging & Doppler Findings: Right Plaque Morph: The proximal right internal carotid artery demonstrates heterogenous, irregular and calcified plaque. The mid right internal carotid artery demonstrates heterogenous, irregular and calcified plaque. The distal right common carotid artery demonstrates heterogenous, irregular and calcified plaque. Left Plaque Morph: The proximal left internal carotid artery demonstrates heterogenous, irregular and calcified plaque. The mid left internal carotid artery demonstrates heterogenous, irregular and calcified plaque. The distal left internal carotid artery demonstrates heterogenous, irregular and calcified plaque. The proximal left external carotid artery demonstrates heterogenous, irregular and calcified plaque. The proximal left common carotid artery demonstrates heterogenous, irregular and calcified plaque. The mid left common carotid artery demonstrates heterogenous, irregular and calcified plaque. The distal left common carotid artery demonstrates heterogenous, irregular and calcified plaque. Right Left PSV EDV PSV EDV 64 cm/s CCA P 0 cm/s CCA M 0 cm/s 59 cm/s CCA D 0 cm/s 171 cm/s 46 cm/s ICA P 0 cm/s 0 cm/s 159 cm/s 36 cm/s ICA M 0 cm/s 108 cm/s 30 cm/s ICA D 0 cm/s 0 cm/s 233 cm/s ECA 94 cm/s 18 cm/s 4 cm/s Vertebral 87 cm/s 14 cm/s 189 cm/s Subclavian 199 cm/s Right ICA/CCA Ratio 2.9 [id number] SOWMYA Delgado MD Final González Espinoza M D - 02/16/2023 [place] [address] and Vascular Lab Report [facility] US CAROTID ARTERY DUPLEX BILATERAL Patient Name: HILARY Andrew ELVIS Reading Physician: [id number] SOWMYA Delgado MD Study Date: 02/16/2023 Ordering Physician: [id number] OLSON MRN/PID: [id number] Technologist: Pollo Petty Poonam Technologist 2: Date of /Age: 12 1945 / 78 years Gender: M Admission Status: Outpatient Location Performed: [facility] Diagnosis/ICD: Occlusion and stenosis of right carotid artery-I65.21 CPT Codes: 68951 Cerebrovascular Carotid Duplex scan complete Patient History CAD. Smoker: Current. CONCLUSIONS: Right Carotid: Findings are consistent with 50 to 69% stenosis of the right proximal internal carotid artery. Laminar flow seen by color Doppler. Right external carotid artery appears patent with no evidence of stenosis. The right vertebral artery is patent with antegrade flow. No evidence of hemodynamically significant stenosis in the right subclavian artery. Left Carotid: Findings are consistent with an occlusion of the left internal carotid artery. ECA patent retrograde branches. Unable to obtain a doppler dignal in the left CCA that is suggestive of occlusion. The left vertebral artery is patent with antegrade flow. No evidence of hemodynamically significant stenosis in the left subclavian artery. Additional Findings: Technically difficult exam due to heavy breathing and patient anatomy. Imaging & Doppler Findings: Right Plaque Morph: The proximal right internal carotid artery demonstrates heterogenous, irregular and calcified plaque. The mid right internal carotid artery demonstrates heterogenous, irregular and calcified plaque. The distal right common carotid artery demonstrates heterogenous, irregular and calcified plaque. Left Plaque Morph: The proximal left internal carotid artery demonstrates heterogenous, irregular and calcified plaque. The mid left internal carotid artery demonstrates heterogenous, irregular and calcified plaque. The distal left internal carotid artery demonstrates heterogenous, irregular and calcified plaque. The proximal left external carotid artery demonstrates heterogenous, irregular and calcified plaque. The proximal left common carotid artery demonstrates heterogenous, irregular and calcified plaque. The mid left common carotid artery demonstrates heterogenous, irregular and calcified plaque. The distal left common carotid artery demonstrates heterogenous, irregular and calcified plaque. Right Left PSV EDV PSV EDV 64 cm/s CCA P 0 cm/s CCA M 0 cm/s 59 cm/s CCA D 0 cm/s 171 cm/s 46 cm/s ICA P 0 cm/s 0 cm/s 159 cm/s 36 cm/s ICA M 0 cm/s 108 cm/s 30 cm/s ICA D 0 cm/s 0 cm/s 233 cm/s ECA 94 cm/s 18 cm/s 4 cm/s Vertebral 87 cm/s 14 cm/s 189 cm/s Subclavian 199 cm/s Right ICA/CCA Ratio 2.9 [id number] González Castillo MD, RPVI Final [facility] Work Phone: Radiology Study observation (narrative) [facility] Work Phone: US.doppler Carotid arteries - bilateralOrdered By: González Castillo on 02-16-2023 [facility] Work Phone: NUCLEAR STRESS TESTon 2022 NUCLEAR STRESS TEST Interpreted By: Manjinder Galloway, Imelda Quintana STUDY: MYOCARDIAL PERFUSION STRESS TEST WITH LEXISCAN Performing facility: [facility] [place], [address] [place] [address], [address], [place] [id number] [facility] Provider: Manjinder Galloway MD PCP: Dr. Celaya Supervising provider: Sharlene Camargo DO, FACC INDICATION: CAD; ICM RCS Pre-operative risk assessment for Carotid scheduled at [facility] on TBD. HISTORY: Gender: M; Age: 77 y/o ; Height: cm; Weight: kg. CAD; High Cholesterol; HTN; Quit smoking recently . Cardiac catheterization on 2001. PTCA on 2001. COMPARISON: Previous nuclear testing completed [id number] at [facility]. ACCESSION NUMBER(S): [id number] ORDERING CLINICIAN: MANJINDER GALLOWAY TECHNIQUE: ONE DAY protocol. Stress injection: Date:01-25-23, 35.4 mCi of Myoview IV 20 seconds after rapid injection of Lexiscan. Rest injection: Date: 01-25-23, 11.3 mCi of Myoview IV at rest. The patient had a rapid injection of 0.4 mg of Lexiscan IV over 10 seconds. Imaging was performed by gated tomographic technique. Reason for Lexiscan: Wheelchair STRESS TEST DATA: Resting heart rate was 56 BPM. Resting blood pressure was 126/82 mmHg. Peak blood pressure was 120/68 mmHg. Peak heart rate was 60 BPM. TEST TERMINATED DUE TO: Protocol completed FINDINGS: STRESS TEST RESULTS: Resting electrocardiogram revealed normal sinus rhythm. There were no significant ischemic ECG changes or dysrhythmias. The patient did not have chest pains/symptoms during procedure. There was a normal recovery phase. IMAGING RESULTS: Image quality was good. Rest and stress tomographic images were reviewed and revealed abnormal perfusion. There was no evidence myocardial ischemia. There was evidence of perfusion abnormality with small to moderate area of moderate which is fixed on both rest and stress images consistent with inferoapical infarction. There was not left ventricular dilatation with stress. Overall left ventricular systolic function appeared to be abnormal. There were severe hypokinesis of the inferoapical segment LVEF was 30%. TID is 0.9 and is normal. There were evidence of diaphragmatic attenuation artifact. IMPRESSION: Abnormal Lexiscan Myoview cardiac perfusion stress test. No Myocardial ischemia by perfusion imaging. Small to moderate infero apical myocardial infarction by perfusion imaging. Abnormal left ventricular systolic function. Left ventricular ejection fraction 30 %. When compared previous study the finding are very similar except LVEF is a little bit lower. Signed by: Manjinder Galloway 01/27/2023 2:29 PM Dictation workstation: [id number] [facility] CT angio headon 12-23-2022 CT angio head Normal [facility] US carotid doppler BIon 11-1 US carotid doppler BI Normal [facility] ECG 12 lead ECGon 11-09-2023 ECG 12 lead ECG Normal [facility] Automated basophil %Ordered By: Celeste Alfonso on 12-21-2022 Basophils/100 WBC (Bld) 0.4 % Normal . [facility] Comment on above: Performed By: #### C BC, BMP ####[address] Automated basophil countOrde red By: Celeste Alfonso on 12-21-2022 Basophils (Bld) [#/Vol] 0.0 10*3/uL Normal 0.0-0.2 [facility] Comment on above: Result Comment: PERF ORMED BY:[address] [place], [place] [phone] MEDICAL DIRECTORANNIKA NOGUEIRA M.D. Performed By: #### C FLAVIO, BMP ####[address] Automated blood monocyte cou ntOrdered By: Celeste Alfonso on 12-21-2022 Monocytes (Bld) [#/Vol] 0.8 10*3/uL Normal 0.0-0.8 [facility] Comment on above: Performed By: #### C FLAVIO, BMP ####[address] Automated eosinophil %Ordere d By: Celeste Alfonso on 12-21-2022 Eosinophils/100 WBC (Bld) 4.6 % Normal . [facility] Comment on above: Performed By: #### C FLAVIO, BMP ####[address] Automated eosinophil countOr dered By: Celeste Alfonso on 12-21-2022 Eosinophils (Bld) [#/Vol] 0.4 10*3/uL Normal 0.0-0.45 [facility] Comment on above: Performed By: #### C BC, BMP ####[address] Automated monocyte %Ordered By: Celeste Kaden on 12-21-2022 Monocytes/100 WBC (Bld) 8.9 % Normal . [facility] Comment on above: Performed By: #### C BC, BMP ####[address] [address] [facility] Automated neutrophil %Ordere d By: Celeste Alfonso on 12-21-2022 Neutrophils/100 WBC (Bld) 57.9 % Normal . [facility] Comment on above: Performed By: #### C BC, BMP ####[address] [address] [facility] Basic Metabolic Panelon 11-0 Creatinine Clr Calc Pharmacy 63.87 Normal [facility] Comment on above: Result Comment: PERF ORMED BY:[address] [place], [place] [phone] MEDICAL DIRECTORANNIKA NOGUEIRA M.D. Performed By: #### C BC, BMP ####[address] [address] [facility] GFR/1.73 sq M.predicted MDRD (S/P/Bld) [Vol rate/Area] mL/min/{1.73_m2} Normal [facility] Comment on above: Performed By: #### C BC, BMP ####[address] [address] [facility] Calcium [Mass/volume] in Ser um or PlasmaOrdered By: Celeste Alfonso on 12-21-2022 Calcium [Mass/Vol] 8.1 mg/dL Low 8.6-10.3 [facility] Comment on above: Performed By: #### C BC, BMP ####[address] [address] [facility] Carbon dioxide, total [Moles /volume] in Serum or PlasmaOrdered By: Celeste Alfonso on 12-21-2022 CO2 [Moles/Vol] 26.7 mmol/L Normal 21.0-31.0 [facility] Comment on above: Performed By: #### C BC, BMP ####[address] [address] [facility] Chloride [Moles/volume] in S sammy or PlasmaOrdered By: Celeste Alfonso on 12-21-2022 Chloride [Moles/Vol] 106 mmol/L Normal 98-107 [facility] Comment on above: Performed By: #### C BC, BMP ####[address] Complete Blood Count Auto Di ffon 12-21-2022 Mean Corpuscular HGB Conc 33.1 g/dL Normal 32.5-35.6 [facility] Comment on above: Performed By: #### C BC, BMP ####[place] [address] [address] NRBC% 0.1 /100{WBC} Normal 0-0.5 [facility] Comment on above: Performed By: #### C BC, BMP ####[address] Creatinine [Mass/volume] in Serum or PlasmaOrdered By: Celeste Alfonso on 12-21-2022 Creatinine [Mass/Vol] 1.08 mg/dL Normal 0.70-1.30 [facility] Comment on above: Performed By: #### C BC, BMP ####[address] ECG 12 lead ECGon 12-21-2022 ECG 12 lead ECG Normal [facility] Erythrocyte distribution wid th [Ratio] by Automated countOrdered By: Celeste Alfonso on 12-21-2022 Erythrocyte distribution width (RBC) [Ratio] 15.9 % High 12.0-14.8 [facility] Comment on above: Performed By: #### C BC, BMP ####[address] Erythrocytes [#/volume] in B lood by Automated countOrdered By: Celeste Alfonso on 12-21-2022 RBC (Bld) [#/Vol] 3.78 10*6/uL Low 3.90-5.60 [facility] Comment on above: Performed By: #### C BC, BMP ####[place] [address] [place] [address] [facility] Glucose [Mass/volume] in Ser um or PlasmaOrdered By: Celeste Alfonso on 12-21-2022 Glucose [Mass/Vol] 83 mg/dL Normal 70-100 [facility] Comment on above: ADA recommended refe rence rangeRandom Glucose Reference Range is dependent on time and content of last meal. Glucose of more than 200 mg/dL in a nonstressed, ambulatory subject supports the diagnosis of Diabetes Mellitus. Result Comment: [place] om Glucose Reference Range is dependent on time and content of last meal. Glucose of more than 200 mg/dL in a nonstressed, ambulatory subject supports the diagnosis of Diabetes Mellitus. ADA recommended reference range Performed By: #### C FLAVIO, BMP ####[place] [id number] [facility] Hematocrit [Volume Fraction] of Blood by Automated countOrdered By: Celeste Alfonso on 12-21-2022 Hematocrit (Bld) [Volume fraction] 38.4 % Low 38.8-50.0 [facility] Comment on above: Performed By: #### C FLAVIO, BMP ####[place] [id number] [facility] Hemoglobin [Mass/volume] in BloodOrdered By: Celeste Alfonso on 12-21-2022 Hemoglobin (Bld) [Mass/Vol] 12.7 g/dL Low 13.0-17.0 [facility] Comment on above: Performed By: #### C FLAVIO, BMP ####[place] [id number] [facility] Leukocytes [#/volume] correc michelle for nucleated erythrocytes in Blood by Automated counOrdered By: Celeste Alfonso on 12-21-2022 WBC corrected for nucl RBC Auto (Bld) [#/Vol] 9.2 10*3/uL 4.1-10.5 [facility] Leukocytes [#/volume] in Blo od by Automated countOrdered By: Celeste Alfonso on 12-21-2022 WBC (Bld) [#/Vol] 9.2 10*3/uL Normal 4.1-10.5 [facility] Comment on above: Performed By: #### C BC, BMP ####[address] Lymphocytes [#/volume] in Bl ood by Automated countOrdered By: Celeste Alfonso on 12-21-2022 Lymphocytes (Bld) [#/Vol] 2.6 10*3/uL Normal 1.00-4.8 [facility] Comment on above: Performed By: #### C BC, BMP ####[address] Lymphocytes/100 leukocytes i n Blood by Automated countOrdered By: Celeste Alfonso on 12-21-2022 Lymphocytes/100 WBC (Bld) 28.2 % Normal . [facility] Comment on above: Performed By: #### C BC, BMP ####[address] MCH [Entitic mass] by Automa michelle countOrdered By: Celeste Alfonso on 12-21-2022 MCH (RBC) [Entitic mass] 33.6 pg Normal 27.5-35.2 [facility] Comment on above: Performed By: #### C BC, BMP ####[address] MCHC Auto (RBC) [Mass/Vol]Or dered By: Celeste Alfonso on 12-21-2022 MCHC (RBC) [Mass/Vol] 33.1 g/dL 32.5-35.6 [facility] MCV [Entitic volume] by Auto mated countOrdered By: Celeste Alfonso on 12-21-2022 MCV (RBC) [Entitic vol] 101.4 fL High 83.5-101 [facility] Comment on above: Performed By: #### C BC, BMP ####[address] Neutrophils [#/volume] in Bl ood by Automated countOrdered By: Celeste Alfonso on 12-21-2022 Neutrophils (Bld) [#/Vol] 5.3 10*3/uL Normal 1.8-7.7 [facility] Comment on above: Performed By: #### C FLAVIO, BMP ####[place] [address] [address] No Panel InformationOrdered By: Celeste Alfonso on 12-21-2022 Estimated GFR (CKD-EPI) > 60.0 mL/Min [facility] Creatinine Clearance (Chem 63.87 [facility] Nucleated erythrocytes [Pres ence] in Blood by Automated countOrdered By: Celeste Alfonso on 12-21-2022 Nucleated RBC Auto Ql (Bld) 0.1 /100{WBC} 0-0.5 [facility] Platelet mean volume [Entiti c volume] in Blood by Automated countOrdered By: Celeste Alfonso on 12-21-2022 Platelet mean volume (Bld) [Entitic vol] 9.6 fL Normal 6.6-10.1 [facility] Comment on above: Performed By: #### C FLAVIO, BMP ####[place] [address] Platelets [#/volume] in Bloo d by Automated countOrdered By: Celeste Alfonso on 12-21-2022 Platelets (Bld) [#/Vol] 126 10*3/uL Low 150-450 [facility] Comment on above: Performed By: #### C FLAVIO, BMP ####[address] Potassium [Moles/volume] in Serum or PlasmaOrdered By: Celeste Alfonso on 12-21-2022 Potassium [Moles/Vol] 3.4 mmol/L Low 3.5-5.1 [facility] Comment on above: Performed By: #### C FLAVIO, BMP ####[address] Serum or plasma anion gap de terminationOrdered By: Celeste Alfonso on 12-21-2022 Anion gap [Moles/Vol] 9.7 mmol/L Normal 6.0-15.0 [facility] Comment on above: Performed By: #### C BC, BMP ####[place] [address] [place] [id number] [facility] Sodium [Moles/volume] in Ser um or PlasmaOrdered By: Celeste Alfonso on 12-21-2022 Sodium [Moles/Vol] 139 mmol/L Normal 136-145 [facility] Comment on above: Performed By: #### C FLAVIO, BMP ####[place] [id number] [facility] Urea nitrogen [Mass/volume] in Serum or PlasmaOrdered By: Celeste Alfonso on 12-21-2022 Urea nitrogen [Mass/Vol] 16 mg/dL Normal 7-25 [facility] Comment on above: Performed By: #### C FLAVIO, BMP ####[place] [address] [place] [id number] [facility] Amphetamine Screen Ql (U)Ord ered By: Hudson Patel on 12-20-2022 Amphetamines Ql (U) Negative Negative [facility] Automated erythrocytes count in urine sediment (number/area)Ordered By: Hudson Patel on 12-20-2022 RBC Auto (Urine sed) [#/Area] 5-9 [HPF] 0-4 [facility] Automated leukocytes count i n urine sediment (number/area)Ordered By: Hudson Patel on 12-20-2022 WBC Auto (Urine sed) [#/Area] 5-9 [HPF] 0-4 [facility] Automated urine color determ inationOrdered By: Hudson Patel on 12-20-2022 Color (U) Dark yellow Critically abnormal Yellow [facility] Comment on above: Order Comment: Name Collection Type:: Clean-Voided Midstream Performed By: #### A DDONUAPLUS, URDS ####[place] [address] [place] [id number] [facility] Barbiturates [Presence] in U rine by Screen methodOrdered By: Hudson Patel on 12-20-2022 Barbiturates Screen Ql (U) Negative Negative [facility] Basic Metabolic Panelon 11-0 7-2023 Anion gap [Moles/Vol] 11.3 mmol/L Normal 6.0-15.0 [facility] Comment on above: Performed By: #### L IPIDMATY, CBC ####[address] Calcium [Mass/Vol] 8.2 mg/dL Low 8.6-10.3 [facility] Comment on above: Performed By: #### L IPID BMP, CBC ####[address] Chloride [Moles/Vol] 106 mmol/L Normal 98-107 [facility] Comment on above: Performed By: #### L IPMATY CARPENTER, CBC ####[address] CO2 [Moles/Vol] 26.2 mmol/L Normal 21.0-31.0 [facility] Comment on above: Performed By: #### L IPMATY CARPENTER, CBC ####[address] Creatinine [Mass/Vol] 1.00 mg/dL Normal 0.70-1.30 [facility] Comment on above: Performed By: #### L MATY ABBASI, CBC ####[address] Creatinine Clr Calc Pharmacy 68.98 Normal [facility] Comment on above: Performed By: #### L IPMATY CARPENTER, CBC ####[address] GFR/1.73 sq M.predicted MDRD (S/P/Bld) [Vol rate/Area] mL/min/{1.73_m2} Normal [facility] Comment on above: Performed By: #### L IPJAYDEN BMP, CBC ####[address] Glucose [Mass/Vol] 106 mg/dL High 70-100 [facility] Comment on above: Result Comment: [place] Glucose Reference Range is dependent on time and content of last meal. Glucose of more than 200 mg/dL in a nonstressed, ambulatory subject supports the diagnosis of Diabetes Mellitus. ADA recommended reference range Performed By: #### L IPID, BMP, CBC ####[facility] [id number] Potassium [Moles/Vol] 3.5 mmol/L Normal 3.5-5.1 [facility] Comment on above: Performed By: #### L IPID, BMP, CBC ####[facility] [id number] [address] Sodium [Moles/Vol] 140 mmol/L Normal 136-145 [facility] Comment on above: Performed By: #### L IPID, BMP, CBC ####[facility] [id number] [address] Urea nitrogen [Mass/Vol] 14 mg/dL Normal 7-25 [facility] Comment on above: Performed By: #### L IPID, BMP, CBC ####[facility] [id number] [address] Benzodiazepines Screen Ql (U )Ordered By: Hudson Patel on 12-20-2022 Benzodiazepines Ql (U) Negative Negative [facility] Benzoylecgonine [Presence] i n Urine by Screen methodOrdered By: Hudson Patel on 12-20-2022 Benzoylecgonine Screen Ql (U) Negative Negative [facility] Bilirubin Test strip Ql (U)O rdered By: Hudson Patel on 12-20-2022 Bilirubin Ql (U) Negative Negative [facility] Cannabinoids [Presence] in U rine by Screen methodOrdered By: Hudson Patel on 12-20-2022 Cannabinoids Screen Ql (U) Negative Negative [facility] Comment on above: These are unconfirme d results and should not be used for legal purposes. Drug Cut-Off Concentration: AMPH 1000 ng/mL MAYDA 200 ng/mL ISABEL 200 ng/mL COCM 300 ng/mL OP 300 ng/mL PCP 25 ng/mL THC 20 ng/mL Cholesterol [Mass/volume] in Serum or PlasmaOrdered By: Celeste Alfonso on 12-20-2022 Cholesterol [Mass/Vol] 106 mg/dL Low 140-200 [facility] Comment on above: Chol less than 200 m g/dl low riskChol 201-239 mg/dl borderline riskChol 240 mg/dl and greater high risk Result Comment: Chol less than 200 mg/dl low risk Chol 201-239 mg/dl borderline risk Chol 240 mg/dl and greater high risk Performed By: #### L IPID, BMP, CBC ####[address] [address] [facility] Cholesterol in LDL Calc [Mas s/Vol]Ordered By: Celeste Alfonso on 12-20-2022 Cholesterol in LDL [Mass/Vol] 63 mg/dL 0-100 [facility] Comment on above: LDL ATP III CLASSIFI CATIONLDL less than 100 mg/dL OptimalLDL 100-129 mg/dL Near or above optimalLDL 130-159 mg/dL Borderline highLDL 160-189 mg/dL HighLDL greater than 189 mg/dL Very high Cholesterol in VLDL Calc [Ma ss/Vol]Ordered By: Celeste Alfonso on 12-20-2022 Cholesterol in VLDL [Mass/Vol] 18 mg/dL [facility] Complete Blood Count Auto Di ffon 12-20-2022 Basophils (Bld) [#/Vol] 0.1 10*3/uL Normal 0.0-0.2 [facility] Comment on above: Result Comment: PERF ORMED BY:[address] [place], [place] [phone] MEDICAL DIRECTORANNIKA NOGUEIRA M.D. Performed By: #### L IPID, BMP, CBC ####[place] [id number] [place] Basophils/100 WBC (Bld) 0.6 % Normal . [facility] Comment on above: Performed By: #### L IPID, BMP, CBC ####[place] [id number] [facility] Eosinophils (Bld) [#/Vol] 0.3 10*3/uL Normal 0.0-0.45 [facility] Comment on above: Performed By: #### L IPID, BMP, CBC ####[address] Eosinophils/100 WBC (Bld) 3.5 % Normal . [facility] Comment on above: Performed By: #### L IPID, BMP, CBC ####[address] Erythrocyte distribution width (RBC) [Ratio] 16.0 % High 12.0-14.8 [facility] Comment on above: Performed By: #### L IPID, BMP, CBC ####[address] Hematocrit (Bld) [Volume fraction] 41.0 % Normal 38.8-50.0 [facility] Comment on above: Performed By: #### L IPID, BMP, CBC ####[address] Hemoglobin (Bld) [Mass/Vol] 13.6 g/dL Normal 13.0-17.0 [facility] Comment on above: Performed By: #### L IPID, BMP, CBC ####[address] Lymphocytes (Bld) [#/Vol] 2.0 10*3/uL Normal 1.00-4.8 [facility] Comment on above: Performed By: #### L IPID, BMP, CBC ####[address] Lymphocytes/100 WBC (Bld) 21.8 % Normal . [facility] Comment on above: Performed By: #### L IPID, BMP, CBC ####[address] MCH (RBC) [Entitic mass] 33.4 pg Normal 27.5-35.2 [facility] Comment on above: Performed By: #### L IPID, BMP, CBC ####[address] MCV (RBC) [Entitic vol] 100.5 fL Normal 83.5-101 [facility] Comment on above: Performed By: #### L IPID, BMP, CBC ####[address] Mean Corpuscular HGB Conc 33.2 g/dL Normal 32.5-35.6 [facility] Comment on above: Performed By: #### L IPID, BMP, CBC ####[address] Monocytes (Bld) [#/Vol] 0.9 10*3/uL High 0.0-0.8 [facility] Comment on above: Performed By: #### L IPID, BMP, CBC ####[address] Monocytes/100 WBC (Bld) 10.0 % Normal . [facility] Comment on above: Performed By: #### L IPID, BMP, CBC ####[address] Neutrophils (Bld) [#/Vol] 5.7 10*3/uL Normal 1.8-7.7 [facility] Comment on above: Performed By: #### L IPID, BMP, CBC ####[address] Neutrophils/100 WBC (Bld) 64.1 % Normal . [facility] Comment on above: Performed By: #### L IPID, BMP, CBC ####[address] NRBC% 0.2 /100{WBC} Normal 0-0.5 [facility] Comment on above: Performed By: #### L IPID, BMP, CBC ####[address] Platelet mean volume (Bld) [Entitic vol] 10.6 fL High 6.6-10.1 [facility] Comment on above: Performed By: #### L IPID, BMP, CBC ####[address] Platelets (Bld) [#/Vol] 158 10*3/uL Normal 150-450 [facility] Comment on above: Performed By: #### L IPID, BMP, CBC ####[address] RBC (Bld) [#/Vol] 4.08 10*6/uL Normal 3.90-5.60 [facility] Comment on above: Performed By: #### L IPID, BMP, CBC ####[place] [id number] [facility] WBC (Bld) [#/Vol] 9.0 10*3/uL Normal 4.1-10.5 [facility] Comment on above: Performed By: #### L IPID, BMP, CBC ####[address] Dipstick and Microscopicon 1 02-19-2022 Appearance (U) Clear Normal Clear [facility] Comment on above: Order Comment: Name Collection Type:: Clean-Voided Midstream Performed By: #### A DDONUAPLUS, URDS ####[place] [id number] [facility] Bacteria,Urine None Seen Normal None Seen [facility] Comment on above: Order Comment: Name Collection Type:: Clean-Voided Midstream Performed By: #### A DDONUAPLUS, URDS ####[place] [id number] [facility] Bilirubin,Urine Negative Normal Negative [facility] Comment on above: Order Comment: Name Collection Type:: Clean-Voided Midstream Performed By: #### A DDONUAPLUS, URDS ####[place] [id number] [facility] Glucose Ql (U) Normal Normal Normal [facility] Comment on above: Order Comment: Name Collection Type:: Clean-Voided Midstream Performed By: #### A DDONUAPLUS, URDS ####[place] [id number] [facility] Hyaline Casts,Urine 0-8 Normal 0-8 [facility] Comment on above: Order Comment: Name Collection Type:: Clean-Voided Midstream Result Comment: PERF ORMED BY:[place] [address] [address] [place], [place] [phone] MEDICAL DIRECTORANNIKA NOGUEIRA M.D. Performed By: #### A DDONUAPLUS, URDS ####[place] [id number] [facility] Ketones Ql (U) Trace High Negative [facility] Comment on above: Order Comment: Name Collection Type:: Clean-Voided Midstream Performed By: #### A DDONUAPLUS, URDS ####[place] [id number] [facility] Leukocyte esterase Test strip Ql (U) Negative Normal Negative [facility] Comment on above: Order Comment: Name Collection Type:: Clean-Voided Midstream Performed By: #### A DDONUAPLUS, URDS ####[place] [id number] [facility] Nitrite,Urine Negative Normal Negative [facility] Comment on above: Order Comment: Name Collection Type:: Clean-Voided Midstream Performed By: #### A DDONUAPLUS, URDS ####[place] [id number] [facility] Occult Blood,Urine 1+ High Negative [facility] Comment on above: Order Comment: Name Collection Type:: Clean-Voided Midstream Result Comment: PERF ORMED BY:[place] [address] [address] [place], [place] [phone] MEDICAL DIRECTORANNIKA NOGUEIRA M.D. Performed By: #### A DDONUAPLUS, URDS ####[place] [id number] [facility] RBC,Urine 5-9 High 0-4 [facility] Comment on above: Order Comment: Name Collection Type:: Clean-Voided Midstream Performed By: #### A DDONUAPLUS, URDS ####[place] [id number] [facility] Specificy Clio,Urine > 1.050 High 1.001-1.03 0 [facility] Comment on above: Order Comment: Name Collection Type:: Clean-Voided Midstream Performed By: #### A DDONUAPLUS, URDS ####[address] Squamous Epithelial Cell,Urine None Seen Normal 0-2 [facility] Comment on above: Order Comment: Name Collection Type:: Clean-Voided Midstream Performed By: #### A DDONUAPLUS, URDS ####[place] [id number] [facility] Urobilinogen,Urine Normal Normal Normal [facility] Comment on above: Order Comment: Name Collection Type:: Clean-Voided Midstream Performed By: #### A DDONUAPLUS, URDS ####[address] WBC,Urine 5-9 High 0-4 [facility] Comment on above: Order Comment: Name Collection Type:: Clean-Voided Midstream Performed By: #### A DDONUAPLUS, URDS ####[place] [id number] [facility] Drug Screen,Urineon 12-21-19 23 Amphetamine Screen,Urine Negative Normal Negative [facility] Comment on above: Performed By: #### A DDONUAPLUS, URDS ####[place] [id number] [facility] Barbiturate Screen,Urine Negative Normal Negative [facility] Comment on above: Performed By: #### A DDONUAPLUS, URDS ####[place] [id number] [facility] Benzodiazepines Screen,Urine Negative Normal Negative [facility] Comment on above: Performed By: #### A DDONUAPLUS, URDS ####[place] [id number] [facility] Cannabinoid Screen,Urine Negative Normal Negative [facility] Comment on above: Result Comment: Thes e are unconfirmed results and should not be used for legal purposes. Drug Cut-Off Concentration: AMPH 1000 ng/mL MAYDA 200 ng/mL ISABEL 200 ng/mL COCM 300 ng/mL OP 300 ng/mL PCP 25 ng/mL THC 20 ng/mLPERFORMED BY:[address] [place], [place] [phone] MEDICAL DIRECTORANNIKA NOGUEIRA M.D. Performed By: #### A DDONUAPLUS, URDS ####[facility] [id number] [place] [address] [facility] Cocaine Screen,Urine Negative Normal Negative [facility] Comment on above: Performed By: #### A DDONUAPLUS, URDS ####[place] [address] [place] [id number] [facility] Opiate Screen,Urine Negative Normal Negative [facility] Comment on above: Performed By: #### A DDONUAPLUS, URDS ####[place] [address] [place] [address] [facility] Phencyclidine Screen,Urine Negative Normal Negative [facility] Comment on above: Performed By: #### A DDONUAPLUS, URDS ####[facility] [id number] [place] [address] [facility] ECH echo transthoracicon ECH echo transthoracic Normal Th e [facility] Ketones Auto test strip (U) [Mass/Vol]Ordered By: Hudson Patel on 12-20-2022 Ketones (U) [Mass/Vol] Trace Negative [facility] - UrinalysisOrder ed By: Hudson Patel on 12-20-2022 Hyaline casts LM Ql (Urine sed) 0-8 [LPF] 0-8 [facility] Lipid Panelon 12-20-2022 LDL Cholesterol,Calculated 63 mg/dL Normal 0-100 [facility] Comment on above: Result Comment: LDL ATP III CLASSIFICATION LDL less than 100 mg/dL Optimal LDL 100-129 mg/dL Near or above optimal LDL 130-159 mg/dL Borderline high LDL 160-189 mg/dL High LDL greater than 189 mg/dL Very high Performed By: #### L IPID, BMP, CBC ####[place] [id number] [facility] Triglyceride w/Reflex 90 mg/dL Normal 0-149 [facility] Comment on above: Result Comment: TRIG ATP III CLASSIFICATION TRIG less than 150 mg/dL Normal TRIG 150-199 mg/dL Borderline high TRIG 200-500 mg/dL High TRIG greater than 500 mg/dL Very high Standard traceable to the Center for Disease Conrtrol and Prevention (CDC) test method. Performed By: #### L IPID, BMP, CBC ####[facility] [id number] VLDL CHOLESTEROL 18 mg/dL Normal [facility] Comment on above: Performed By: #### L IPID, BMP, CBC ####[facility] MR head/brain wo conon 12-20 MR head/brain wo con Normal [facility] Nitrite Test strip Ql (U)Ord ered By: Hudson Patel on 12-20-2022 Nitrite Ql (U) Negative Negative [facility] Opiates [Presence] in Urine by Screen methodOrdered By: Hudson Patel on 12-20-2022 Opiates Screen Ql (U) Negative Negative [facility] Phencyclidine Screen Ql (U)O rdered By: Hudson Patel on 12-20-2022 Phencyclidine Ql (U) Negative Negative [facility] Serum or plasma high density lipoprotein (HDL) cholesterol measurementOrdered By: Celeste Alfonso on 12-20-2022 Cholesterol in HDL [Mass/Vol] 25 mg/dL Normal 23-92 [facility] Comment on above: HDL CHOL ATP-III CLA SSIFICATION Cardiovascular RiskHDL > or equal to 60 mg/dL LOWHDL < 40 mg/dL HIGH Result Comment: HDL CHOL ATP-III CLASSIFICATION Cardiovascular Risk HDL > or equal to 60 mg/dL LOW HDL < 40 mg/dL HIGH Performed By: #### L IPID, BMP, CBC ####[facility] [address] Serum or plasma total choles terol/high density lipoprotein (HDL) cholesterol mass ratOrdered By: Celeste Alfonso on 12-20-2022 Cholesterol.total/Chol esterol in HDL [Mass ratio] 4.2 {ratio} Normal <5.0 [facility] Comment on above: Result Comment: PERF ORMED BY:[place] [address] [address] [place], [place] [phone] MEDICAL DIRECTORANNIKA NOGUEIRA M.D. Performed By: #### L IPID, BMP, CBC ####[place] [address] [place] [address] [facility] Specific gravity Auto test s trip (U) [Rel density]Ordered By: Hudson Patel on 12-20-2022 Specific gravity (U) [Rel density] > 1.050 1.001-1.03 0 [facility] Squamous epithelial cells de tection in urine sediment by light microscopyOrdered By: Hudson Patel on 12-20-2022 Epithelial cells.squamous LM Ql (Urine sed) None seen [HPF] 0-2 [facility] Triglyceride [Mass/volume] i n Serum or PlasmaOrdered By: Celeste Alfonso on 12-20-2022 Triglyceride [Mass/Vol] 90 mg/dL 0-149 [facility] Comment on above: TRIG ATP III CLASSIF ICATIONTRIG less than 150 mg/dL NormalTRIG 150-199 mg/dL Borderline highTRIG 200-500 mg/dL High TRIG greater than 500 mg/dL Very highStandard traceable to the Center for Disease Conrtrol and Prevention (CDC) test method. Troponin I High Sensitivityo n 12-20-2022 Troponin I High Sensitivity 219.3 pg/mL Off scale high 0.0-20.0 [facility] Comment on above: Result Comment: Crit ical Result : Called to and read back by: SIDDHARTHA MOSQUEDA at: 12/20/2022 07:38:41 by:[id number] BY:[place] [address] [address] [place], [place] [phone] MEDICAL DIRECTORANNIKA NOGUEIRA M.D. Performed By: #### H S TROP ####[place] [address] [place] [address] [facility] Troponin I High Sensitivity 196.3 pg/mL Off scale high 0.0-20.0 [facility] Comment on above: Result Comment: Crit ical Result : Called to and read back by: DANIELA MORRIS at: 12/20/2022 03:04:35 by:SAVANNAHPERFORMED BY:[facility] [place] [phone] MEDICAL DIRECTORANNIKA NOGUEIRA M.D. Performed By: #### H S TROP ####[facility] [address] [place] [address] [facility] Troponin I.cardiac [Mass/vol ume] in Serum or Plasma by Detection limit <= 0.01 ng/Ordered By: Celeste Alfonso on 12-20-2022 Troponin I.cardiac DL <= 0.01 ng/mL [Mass/Vol] 219.3 pg/mL 0.0-20.0 [facility] Comment on above: Critical Result : Ca lled to and read back by: SIDDHARTHA MOSQUEDA at: 12/20/2022 07:38:41 by:[id number] Urine bacteria detection by automated methodOrdered By: Hudson Patel on 12-20-2022 Bacteria Auto Ql (U) None seen None Seen [facility] Urine clarity by refractomet ry automatedOrdered By: Hudson Patel on 12-20-2022 Clarity Refractometry automated (U) Clear Clear [facility] Urine glucose measurement by automated test strip (mass/volume)Ordered By: Hudson Patel on 12-20-2022 Glucose Auto test strip (U) [Mass/Vol] Normal mg/dL Normal [facility] Urine hemoglobin detection b y automated test stripOrdered By: Hudson Patel on 12-20-2022 Hemoglobin Auto test strip Ql (U) 1+ Negative [facility] Urine leukocyte esterase det ection by automated test stripOrdered By: Hudson Patel on 12-20-2022 Leukocyte esterase Auto test strip Ql (U) Negative Negative [facility] Urine pH measurement by auto mated test stripOrdered By: Hudson Patel on 12-20-2022 pH (U) 5.5 [pH] Normal 5.0-9.0 [facility] Comment on above: Order Comment: Name Collection Type:: Clean-Voided Midstream Performed By: #### A DDONUAPLUS, URDS ####[facility] [place] [id number] [facility] Urine protein measurement by automated test strip (mass/volume)Ordered By: Hudson Patel on 12-20-2022 Protein (U) [Mass/Vol] 300 mg/dL High Negative [facility] Comment on above: Order Comment: Name Collection Type:: Clean-Voided Midstream Performed By: #### A DDONUAPLUS, URDS ####[place] [address] [place] [id number] [facility] Urobilinogen Auto test strip (U) [Mass/Vol]Ordered By: Hudson Patel on 12-20-2022 Urobilinogen (U) [Mass/Vol] Normal mg/dL Normal [facility] Activated partial thrombopla stin time (aPTT) in platelet poor plasma by coagulation aOrdered By: Hudson Patel on 12-19-2022 aPTT Coag (PPP) [Time] 33.9 s 25.1-36.5 [facility] Comment on above: A hematocrit value g reater than 55% may lead to inaccurate results in coagulation testing. Patients having hematocrit values >55% require a special collection tube for coagulation studies. Please contact the laboratory at [phone] for redraw instructions. Alanine aminotransferase [En zymatic activity/volume] in Serum or PlasmaOrdered By: Hudson Patel on 12-19-2022 ALT [Catalytic activity/Vol] 20 U/L Normal 7-52 [facility] Comment on above: Performed By: #### C K, PT, AMM, HS TROP, CMP, CUBLD, PTT, TSH3, CBC, LACTIC ####[facility] [id number] [place] [id number] [facility] Albumin [Mass/volume] in Ser um or Plasma by Bromocresol green (BCG) dye binding methoOrdered By: Hudson Patel on 12-19-2022 Albumin BCG dye [Mass/Vol] 4.0 g/dL 3.5-5.7 [facility] Alkaline phosphatase [Enzyma tic activity/volume] in Serum or PlasmaOrdered By: Hudson Patel on 12-19-2022 ALP [Catalytic activity/Vol] 121 U/L High 34-104 [facility] Comment on above: Performed By: #### C K, PT, AMM, HS TROP, CMP, CUBLD, PTT, TSH3, CBC, LACTIC ####[place] [id number] [facility] Ammonia [Moles/volume] in Pl asmaOrdered By: Hudson Patel on 12-19-2022 Ammonia (P) [Moles/Vol] 22 umol/L Normal 11-35 [facility] Comment on above: Result Comment: PERF ORMED BY:[place] [address] [place], [place] [phone] MEDICAL DIRECTORANNIKA NOGUEIRA M.D. Performed By: #### C K, PT, AMM, HS TROP, CMP, CUBLD, PTT, TSH3, CBC, LACTIC ####[place] [id number] [facility] Aspartate aminotransferase [ Enzymatic activity/volume] in Serum or PlasmaOrdered By: Hudson Patel on 12-19-2022 AST [Catalytic activity/Vol] 37 U/L Normal 13-39 [facility] Comment on above: Performed By: #### C K, PT, AMM, HS TROP, CMP, CUBLD, PTT, TSH3, CBC, LACTIC ####[place] [id number] [facility] Automated basophil %Ordered By: Hudson Patel on 12-19-2022 Basophils/100 WBC (Bld) 0.8 % Normal . [facility] Comment on above: Performed By: #### C K, PT, AMM, HS TROP, CMP, CUBLD, PTT, TSH3, CBC, LACTIC ####[place] [id number] [facility] Automated basophil countOrde red By: Hudson Patel on 12-19-2022 Basophils (Bld) [#/Vol] 0.1 10*3/uL Normal 0.0-0.2 [facility] Comment on above: Result Comment: PERF ORMED BY:[place] [address] [place], [place] [phone] MEDICAL DIRECTORANNIKA NOGUEIRA M.D. Performed By: #### C K, PT, AMM, HS TROP, CMP, CUBLD, PTT, TSH3, CBC, LACTIC ####[address] Automated blood monocyte cou ntOrdered By: Hudson Patel on 12-19-2022 Monocytes (Bld) [#/Vol] 0.9 10*3/uL High 0.0-0.8 [facility] Comment on above: Performed By: #### C K, PT, AMM, HS TROP, CMP, CUBLD, PTT, TSH3, CBC, LACTIC ####[address] Automated eosinophil %Ordere d By: Hudson Patel on 12-19-2022 Eosinophils/100 WBC (Bld) 2.5 % Normal . [facility] Comment on above: Performed By: #### C K, PT, AMM, HS TROP, CMP, CUBLD, PTT, TSH3, CBC, LACTIC ####[address] Automated eosinophil countOr dered By: Hudson Patel on 12-19-2022 Eosinophils (Bld) [#/Vol] 0.3 10*3/uL Normal 0.0-0.45 [facility] Comment on above: Performed By: #### C K, PT, AMM, HS TROP, CMP, CUBLD, PTT, TSH3, CBC, LACTIC ####[address] Automated monocyte %Ordered By: Hudson Patel on 12-19-2022 Monocytes/100 WBC (Bld) 8.6 % Normal . [facility] Comment on above: Performed By: #### C K, PT, AMM, HS TROP, CMP, CUBLD, PTT, TSH3, CBC, LACTIC ####[address] Automated neutrophil %Ordere d By: Hudson Patel on 12-19-2022 Neutrophils/100 WBC (Bld) 66.1 % Normal . [facility] Comment on above: Performed By: #### C K, PT, AMM, HS TROP, CMP, CUBLD, PTT, TSH3, CBC, LACTIC ####[place] [id number] [facility] Bacterial blood cultureOrder ed By: Hudson Patel on 12-19-2022 Bacteria identified Cx Nom (Bld) NO GROWTH 5 DAYS [facility] Bacteria identified Cx Nom (Bld) NO GROWTH 5 DAYS [facility] Bilirubin.total [Mass/volume ] in Serum or PlasmaOrdered By: Hudson Patel on 12-19-2022 Bilirubin [Mass/Vol] 1.2 mg/dL High 0.3-1.0 [facility] Comment on above: Performed By: #### C K, PT, AMM, HS TROP, CMP, CUBLD, PTT, TSH3, CBC, LACTIC ####[place] [id number] [facility] Blood Cultureon 12-19-2022 Bacteria identified Cx Nom (Bld) Normal [facility] Comment on above: Performed By: #### C K, PT, AMM, HS TROP, CMP, CUBLD, PTT, TSH3, CBC, LACTIC ####[place] [id number] [facility] Bacteria identified Cx Nom (Bld) NO GROWTH 5 DAYS PERFORMED BY: [facility] [address] [place] [address] PATHOLOGIST CLIENT EVALUATOR ANNIKA NOGUEIRA M.D. Normal [facility] Comment on above: Performed By: #### C K, PT, AMM, HS TROP, CMP, CUBLD, PTT, TSH3, CBC, LACTIC ####[place] [id number] [facility] CT abdomen pelvis w conon CT abdomen pelvis w con Normal [facility] CT head/brain wo conon 12-19 CT head/brain wo con Normal [facility] Calcium [Mass/volume] in Ser um or PlasmaOrdered By: Hudson Patel on 12-19-2022 Calcium [Mass/Vol] 9.3 mg/dL Normal 8.6-10.3 [facility] Comment on above: Performed By: #### C K, PT, AMM, HS TROP, CMP, CUBLD, PTT, TSH3, CBC, LACTIC ####[facility] Capillary blood glucose dash urement by glucometer (mass/volume)Ordered By: Hudson Patel on 12-19-2022 Glucose [Mass/Vol] 92 mg/dL Normal [facility] Comment on above: Random Glucose Refer ence Range is dependent on time and content of last meal. Glucose of more than 200 mg/dL in a nonstressed, ambulatory subject supports the diagnosis of Diabetes Mellitus. Result Comment: [place] om Glucose Reference Range is dependent on time and content of last meal. Glucose of more than 200 mg/dL in a nonstressed, ambulatory subject supports the diagnosis of Diabetes Mellitus. Performed By: #### G RE ####Point of Care testing, Carbon dioxide, total [Moles /volume] in Serum or PlasmaOrdered By: Hudson Patel on 12-19-2022 CO2 [Moles/Vol] 26.0 mmol/L Normal 21.0-31.0 [facility] Comment on above: Performed By: #### C K, PT, AMM, HS TROP, CMP, CUBLD, PTT, TSH3, CBC, LACTIC ####[facility] Chloride [Moles/volume] in S sammy or PlasmaOrdered By: Hudson Patel on 12-19-2022 Chloride [Moles/Vol] 105 mmol/L Normal 98-107 [facility] Comment on above: Performed By: #### C K, PT, AMM, HS TROP, CMP, CUBLD, PTT, TSH3, CBC, LACTIC ####[facility] [place] [id number] [facility] Complete Blood Count Auto Di ffon 12-19-2022 Mean Corpuscular HGB Conc 33.4 g/dL Normal 32.5-35.6 [facility] Comment on above: Performed By: #### C K, PT, AMM, HS TROP, CMP, CUBLD, PTT, TSH3, CBC, LACTIC ####[address] Monocytes/100 WBC (Bld) 20.93 % High 0.00-20.00 [facility] Comment on above: Result Comment: For adults in ED, MDW > 20.0 may be associated with a higher risk of sepsis during the first 12 hrs of hospital admission Performed By: #### C K, PT, AMM, HS TROP, CMP, CUBLD, PTT, TSH3, CBC, LACTIC ####[address] NRBC% 0.5 /100{WBC} Normal 0-0.5 [facility] Comment on above: Performed By: #### C K, PT, AMM, HS TROP, CMP, CUBLD, PTT, TSH3, CBC, LACTIC ####[address] Comprehensive Metabolic Pane negro 12-19-2022 Albumin [Mass/Vol] 4.0 g/dL Normal 3.5-5.7 [facility] Comment on above: Performed By: #### C K, PT, AMM, HS TROP, CMP, CUBLD, PTT, TSH3, CBC, LACTIC ####[address] Creatinine Clr Calc Pharmacy 71.11 Normal [facility] Comment on above: Performed By: #### C K, PT, AMM, HS TROP, CMP, CUBLD, PTT, TSH3, CBC, LACTIC ####[address] GFR/1.73 sq M.predicted MDRD (S/P/Bld) [Vol rate/Area] mL/min/{1.73_m2} Normal [facility] Comment on above: Performed By: #### C K, PT, AMM, HS TROP, CMP, CUBLD, PTT, TSH3, CBC, LACTIC ####[address] Creatine kinase [Enzymatic a ctivity/volume] in Serum or PlasmaOrdered By: Hudson Patel on 12-19-2022 CK [Catalytic activity/Vol] 77 U/L Normal 30-223 [facility] Comment on above: Performed By: #### C K, PT, AMM, HS TROP, CMP, CUBLD, PTT, TSH3, CBC, LACTIC ####[place] [id number] [facility] Creatinine [Mass/volume] in Serum or PlasmaOrdered By: Hudson Patel on 12-19-2022 Creatinine [Mass/Vol] 0.97 mg/dL Normal 0.70-1.30 [facility] Comment on above: Performed By: #### C K, PT, AMM, HS TROP, CMP, CUBLD, PTT, TSH3, CBC, LACTIC ####[place] [id number] [facility] ECG 12 lead ECGon 12-19-2022 ECG 12 lead ECG Normal [facility] Erythrocyte distribution wid th [Ratio] by Automated countOrdered By: Hudson Patel on 12-19-2022 Erythrocyte distribution width (RBC) [Ratio] 15.9 % High 12.0-14.8 [facility] Comment on above: Performed By: #### C K, PT, AMM, HS TROP, CMP, CUBLD, PTT, TSH3, CBC, LACTIC ####[address] Erythrocytes [#/volume] in B lood by Automated countOrdered By: Hudson Patel on 12-19-2022 RBC (Bld) [#/Vol] 4.72 10*6/uL Normal 3.90-5.60 [facility] Comment on above: Performed By: #### C K, PT, AMM, HS TROP, CMP, CUBLD, PTT, TSH3, CBC, LACTIC ####[address] [address] [facility] Glucose Poct Glucometerson 1 02-18-2022 Commemt1 Normal [facility] Comment on above: Result Comment: Glu2 : WILL NOTIFY /VIRIDIANAERFORMED BY:[address] [place], [place] [id number] MEDICAL DIRECTORANNIKA NOGUEIRA M.D. Performed By: #### G RE ####Point of Care testing, Glucose [Mass/volume] in Ser um or PlasmaOrdered By: Hudson Patel on 12-19-2022 Glucose [Mass/Vol] 89 mg/dL Normal 70-100 [facility] Comment on above: ADA recommended refe rence rangeRandom Glucose Reference Range is dependent on time and content of last meal. Glucose of more than 200 mg/dL in a nonstressed, ambulatory subject supports the diagnosis of Diabetes Mellitus. Result Comment: [place] om Glucose Reference Range is dependent on time and content of last meal. Glucose of more than 200 mg/dL in a nonstressed, ambulatory subject supports the diagnosis of Diabetes Mellitus. ADA recommended reference range Performed By: #### C K, PT, AMM, HS TROP, CMP, CUBLD, PTT, TSH3, CBC, LACTIC ####[place] [id number] [place] [id number] [facility] Hematocrit [Volume Fraction] of Blood by Automated countOrdered By: Hudson Patel on 12-19-2022 Hematocrit (Bld) [Volume fraction] 47.8 % Normal 38.8-50.0 [facility] Comment on above: Performed By: #### C K, PT, AMM, HS TROP, CMP, CUBLD, PTT, TSH3, CBC, LACTIC ####[place] [address] [place] [id number] [facility] Hemoglobin [Mass/volume] in BloodOrdered By: Hudson Patel on 12-19-2022 Hemoglobin (Bld) [Mass/Vol] 15.9 g/dL Normal 13.0-17.0 [facility] Comment on above: Performed By: #### C K, PT, AMM, HS TROP, CMP, CUBLD, PTT, TSH3, CBC, LACTIC ####[address] [id number] [place] [id number] [facility] INR in Platelet poor plasma by Coagulation assayOrdered By: Hudson Patel on 12-19-2022 INR Coag (PPP) [Relative time] 1.1 {INR} Normal [facility] Comment on above: INR Therapeutic Rang e A) Pre- and Peroperative OAT started two weeks before surgery. NOT HIP SURGERY: 1.5 - 2.5 HIP SURGERY: 2 - 3B) Primary and secondary prevention of venous THROMBOSIS: 2 - 3C) Active venous thrombosis, pulmonary embolismand prevention of recurrent venous thrombosis: 2 - 3D) Prevention of arterial thromboembolismincluding patients with mechanical heart valves: 3 - 4.5 Result Comment: INR Therapeutic Range A) Pre- and Peroperative OAT started two weeks before surgery. NOT HIP SURGERY: 1.5 - 2.5 HIP SURGERY: 2 - 3 B) Primary and secondary prevention of venous THROMBOSIS: 2 - 3 C) Active venous thrombosis, pulmonary embolism and prevention of recurrent venous thrombosis: 2 - 3 D) Prevention of arterial thromboembolism including patients with mechanical heart valves: 3 - 4.5 Performed By: #### C K, PT, AMM, HS TROP, CMP, CUBLD, PTT, TSH3, CBC, LACTIC ####[facility] [place] [address] [facility] Lactate [Moles/volume] in Se rum or PlasmaOrdered By: Hudson Patel on 12-19-2022 Lactate [Moles/Vol] 1.7 mmol/L Normal 0.5-2.2 [facility] Comment on above: Result Comment: PERF ORMED BY:[address] [place], [place] [id number] MEDICAL DIRECTORANNIKA NOGUEIRA M.D. Performed By: #### C K, PT, AMM, HS TROP, CMP, CUBLD, PTT, TSH3, CBC, LACTIC ####[facility] [address] [place] [address] [facility] Leukocytes [#/volume] correc michelle for nucleated erythrocytes in Blood by Automated counOrdered By: Hudson Ptael on 12-19-2022 WBC corrected for nucl RBC Auto (Bld) [#/Vol] 10.6 10*3/uL 4.1-10.5 [facility] Leukocytes [#/volume] in Blo od by Automated countOrdered By: Hudson Patel on 12-19-2022 WBC (Bld) [#/Vol] 10.6 10*3/uL High 4.1-10.5 [facility] Comment on above: Performed By: #### C K, PT, AMM, HS TROP, CMP, CUBLD, PTT, TSH3, CBC, LACTIC ####[address] Lymphocytes [#/volume] in Bl ood by Automated countOrdered By: Hudson Patel on 12-19-2022 Lymphocytes (Bld) [#/Vol] 2.3 10*3/uL Normal 1.00-4.8 [facility] Comment on above: Performed By: #### C K, PT, AMM, HS TROP, CMP, CUBLD, PTT, TSH3, CBC, LACTIC ####[address] Lymphocytes/100 leukocytes i n Blood by Automated countOrdered By: Hudson Patel on 12-19-2022 Lymphocytes/100 WBC (Bld) 22.0 % Normal . [facility] Comment on above: Performed By: #### C K, PT, AMM, HS TROP, CMP, CUBLD, PTT, TSH3, CBC, LACTIC ####[address] MCH [Entitic mass] by Automa michelle countOrdered By: Hudson Patel on 12-19-2022 MCH (RBC) [Entitic mass] 33.8 pg Normal 27.5-35.2 [facility] Comment on above: Performed By: #### C K, PT, AMM, HS TROP, CMP, CUBLD, PTT, TSH3, CBC, LACTIC ####[address] MCHC Auto (RBC) [Mass/Vol]Or dered By: Hudson Patel on 12-19-2022 MCHC (RBC) [Mass/Vol] 33.4 g/dL 32.5-35.6 [facility] MCV [Entitic volume] by Auto mated countOrdered By: Hudson Patel on 12-19-2022 MCV (RBC) [Entitic vol] 101.2 fL High 83.5-101 [facility] Comment on above: Performed By: #### C K, PT, AMM, HS TROP, CMP, CUBLD, PTT, TSH3, CBC, LACTIC ####[place] [id number] [facility] Magnesium [Mass/volume] in S sammy or PlasmaOrdered By: Celeste Alfonso on 12-19-2022 Magnesium [Mass/Vol] 1.7 mg/dL Low 1.9-2.7 [facility] Comment on above: Order Comment: Comme nt add Result Comment: PERF ORMED BY:[address] [place], [place] [phone] MEDICAL DIRECTORANNIKA NOGUEIRA M.D. Performed By: #### M G ####[place] [id number] [facility] Monocyte distribution width [Entitic volume] in Blood by AutomatedOrdered By: Hudson Patel on 12-19-2022 Monocyte distribution width Auto (Bld) [Entitic vol] 20.93 % 0.00-20.00 [facility] Comment on above: For adults in ED, MD W > 20.0 may be associated with a higher risk of sepsis during the first 12 hrs of hospital admission Neutrophils [#/volume] in Bl ood by Automated countOrdered By: Hudson Patel on 12-19-2022 Neutrophils (Bld) [#/Vol] 7.0 10*3/uL Normal 1.8-7.7 [facility] Comment on above: Performed By: #### C K, PT, AMM, HS TROP, CMP, CUBLD, PTT, TSH3, CBC, LACTIC ####[place] [id number] [facility] No Panel InformationOrdered By: Hudson Patel on 12-19-2022 Blood Gas Critical Value See comment [facility] Comment on above: Critical Value bowling d on: 12/19/2022 at 15:08 Blood Gas Sample Site Venous Fir [facility] FiO2 21 % [facility] Venous Blood Base Excess -0.7 mmol/L -3.0-3.0 [facility] Venous Blood Oxygen Content 4.4 mmol/L 6.6-9.7 [facility] Venous Blood Oxygen Saturation 41.2 % 73.0-76.0 [facility] Venous Blood Partial Pressure CO2 44.9 mm[Hg] 38.0-50.0 [facility] Venous Blood Partial Pressure O2 24.3 mm[Hg] 35.0-45.0 [facility] Venous Blood pH 7.37 7.32-7.43 [facility] Estimated GFR (CKD-EPI) > 60.0 mL/Min [facility] Creatinine Clearance (Chem 71.11 [facility] Bedside Glucose Comment See comment [facility] Comment on above: Glu2: WILL NOTIFY DR /RN Nucleated erythrocytes [Pres ence] in Blood by Automated countOrdered By: Hudson Patel on 12-19-2022 Nucleated RBC Auto Ql (Bld) 0.5 /100{WBC} 0-0.5 [facility] Partial Thromboplastin Timeo n 12-19-2022 aPTT Coag (Bld) [Time] 33.9 s Normal 25.1-36.5 [facility] Comment on above: Result Comment: A he matocrit value greater than 55% may lead to inaccurate results in coagulation testing. Patients having hematocrit values >55% require a special collection tube for coagulation studies. Please contact the laboratory at [phone] for redraw instructions.PERFORMED BY:[address] [place], [place] [phone] MEDICAL DIRECTORANNIKA NOGUEIRA M.D. Performed By: #### C K, PT, AMM, HS TROP, CMP, CUBLD, PTT, TSH3, CBC, LACTIC ####[place] [id number] [facility] Platelet mean volume [Entiti c volume] in Blood by Automated countOrdered By: Hudson Patel on 12-19-2022 Platelet mean volume (Bld) [Entitic vol] 10.0 fL Normal 6.6-10.1 [facility] Comment on above: Performed By: #### C K, PT, AMM, HS TROP, CMP, CUBLD, PTT, TSH3, CBC, LACTIC ####[place] [id number] [facility] Platelets [#/volume] in Bloo d by Automated countOrdered By: Hudson Patel on 12-19-2022 Platelets (Bld) [#/Vol] 200 10*3/uL Normal 150-450 [facility] Comment on above: Performed By: #### C K, PT, AMM, HS TROP, CMP, CUBLD, PTT, TSH3, CBC, LACTIC ####[place] [address] [place] [id number] [facility] Potassium [Moles/volume] in Serum or PlasmaOrdered By: Hudson Patel on 12-19-2022 Potassium [Moles/Vol] 3.6 mmol/L Normal 3.5-5.1 [facility] Comment on above: Performed By: #### C K, PT, AMM, HS TROP, CMP, CUBLD, PTT, TSH3, CBC, LACTIC ####[place] [id number] [facility] Protein [Mass/volume] in Ser um or PlasmaOrdered By: Hudson Patel on 12-19-2022 Protein [Mass/Vol] 7.8 g/dL Normal 6.4-8.9 [facility] Comment on above: Performed By: #### C K, PT, AMM, HS TROP, CMP, CUBLD, PTT, TSH3, CBC, LACTIC ####[address] [address] [facility] Prothrombin time (PT)Ordered By: Hudson Patel on 12-19-2022 PT Coag (PPP) [Time] 13.4 s High 9.0-12.9 [facility] Comment on above: A hematocrit value g reater than 55% may lead to inaccurate results in coagulation testing. Patients having hematocrit values >55% require a special collection tube for coagulation studies. Please contact the laboratory at [phone] for redraw instructions. Result Comment: A he matocrit value greater than 55% may lead to inaccurate results in coagulation testing. Patients having hematocrit values >55% require a special collection tube for coagulation studies. Please contact the laboratory at [phone] for redraw instructions. Performed By: #### C K, PT, AMM, HS TROP, CMP, CUBLD, PTT, TSH3, CBC, LACTIC ####[place] [address] Serum globulin measurement b y calculation (mass/volume)Ordered By: Hudson Patel on 12-19-2022 Globulin (S) [Mass/Vol] 3.8 g/dL [facility] Comment on above: Performed By: #### C K, PT, AMM, HS TROP, CMP, CUBLD, PTT, TSH3, CBC, LACTIC ####[place] [address] Serum or plasma albumin/glob ulin mass ratioOrdered By: Hudson Patel on 12-19-2022 Albumin/Globulin [Mass ratio] 1.1 {ratio} [facility] Comment on above: Performed By: #### C K, PT, AMM, HS TROP, CMP, CUBLD, PTT, TSH3, CBC, LACTIC ####[place] [address] Serum or plasma anion gap de terminationOrdered By: Hudson Patel on 12-19-2022 Anion gap [Moles/Vol] 14.6 mmol/L Normal 6.0-15.0 [facility] Comment on above: Performed By: #### C K, PT, AMM, HS TROP, CMP, CUBLD, PTT, TSH3, CBC, LACTIC ####[place] [address] Sodium [Moles/volume] in Ser um or PlasmaOrdered By: Hudson Patel on 12-19-2022 Sodium [Moles/Vol] 142 mmol/L Normal 136-145 [facility] Comment on above: Performed By: #### C K, PT, AMM, HS TROP, CMP, CUBLD, PTT, TSH3, CBC, LACTIC ####[place] [address] Thyrotropin [Units/volume] i n Serum or PlasmaOrdered By: Hudson Patel on 12-19-2022 TSH Qn 2.21 m[IU]/L Normal 0.45-5.33 [facility] Comment on above: Result Comment: PERF ORMED BY:[place] [address] [place], [place] [phone] MEDICAL DIRECTORANNIKA NOGUEIRA M.D. Performed By: #### C K, PT, AMM, HS TROP, CMP, CUBLD, PTT, TSH3, CBC, LACTIC ####[address] [address] [facility] Troponin I High Sensitivityo n 12-19-2022 Troponin I High Sensitivity 131.4 pg/mL Off scale high 0.0-20.0 [facility] Comment on above: Result Comment: Crit ical Result : Called to and read back by: DANIELA MORRIS at: 12/19/2022 23:00:29 by:DHPERFORMED BY:[address] [place]IAS[place]ama[place], [place] [id number] MEDICAL DIRECTORANNIKA NOGUEIRA M.D. Performed By: #### H S TROP ####[address] [address] [facility] Troponin I High Sensitivity 135.8 pg/mL Off scale high 0.0-20.0 [facility] Comment on above: Result Comment: Crit ical Result : Called to and read back by: MILDRED WRIGHT at: 12/19/2022 16:30:44 by:DCPERFORMED BY:[address] [place], [place] [phone] MEDICAL JADEN NOGUEIRA M.D. Performed By: #### C K, PT, AMM, HS TROP, CMP, CUBLD, PTT, TSH3, CBC, LACTIC ####[address] [address] [facility] Troponin I.cardiac [Mass/vol ume] in Serum or Plasma by Detection limit <= 0.01 ng/Ordered By: Hudson Patel on 12-19-2022 Troponin I.cardiac DL <= 0.01 ng/mL [Mass/Vol] 135.8 pg/mL 0.0-20.0 [facility] Comment on above: Critical Result : Ca lled to and read back by: MILDRED WRIGHT at: 12/19/2022 16:30:44 by:DC Urea nitrogen [Mass/volume] in Serum or PlasmaOrdered By: Hudson Patel on 12-19-2022 Urea nitrogen [Mass/Vol] 14 mg/dL Normal 7-25 [facility] Comment on above: Performed By: #### C K, PT, AMM, HS TROP, CMP, CUBLD, PTT, TSH3, CBC, LACTIC ####[facility] [place] [address] [facility] Venous Blood GasOrdered By: Hudson Patel on 12-19-2022 CO2 [Moles/Vol] 26.5 mmol/L Normal 24.0-29.0 [facility] Comment on above: Performed By: #### V BG ####Point of Care testing, HCO3 (Bld) [Moles/Vol] 25.1 mmol/L Normal 23.0-29.0 [facility] Comment on above: Performed By: #### V BG ####Point of Care testing, Venous Blood Gason 3 Respiratory Critical Normal [facility] Comment on above: Result Comment: Crit ical Value called on: 12/19/2022 at 15:08PERFORMED BY:[facility] [place], [place] [phone] MEDICAL DIRECTORANNIKA NOGUEIRA M.D. Performed By: #### V BG ####Point of Care testing, VBG Base Excess -0.7 mmol/L Normal -3.0-3.0 [facility] Comment on above: Performed By: #### V BG ####Point of Care testing, VBG Draw Site Venous Normal [facility] Comment on above: Performed By: #### V BG ####Point of Care testing, VBG Frac Inspired O2 21 % Normal [facility] Comment on above: Performed By: #### V BG ####Point of Care testing, VBG O2 Content 4.4 mmol/L Low 6.6-9.7 [facility] Comment on above: Performed By: #### V BG ####Point of Care testing, VBG Oxygen Saturation 41.2 % Off scale low 73.0-76.0 [facility] Comment on above: Performed By: #### V BG ####Point of Care testing, VBG PCO2 44.9 mm[Hg] Normal 38.0-50.0 [facility] Comment on above: Performed By: #### V BG ####Point of Care testing, VBG PH Venous PH 7.37 Normal 7.32-7.43 [facility] Comment on above: Performed By: #### V BG ####Point of Care testing, VBG PO2 24.3 mm[Hg] Low 35.0-45.0 [facility] Comment on above: Performed By: #### V BG ####Point of Care testing, XR chest 2V*on 12-19-2022 XR chest 2V* Normal [facility] Negro 12-09-[address] [facility] Basic Metabolic Panelon 11-13 Creatinine Clr Calc Pharmacy 70.44 Normal [facility] Comment on above: Result Comment: PERF ORMED BY:[address] [place], [place] [phone] MEDICAL DIRECTORANNIKA NOGUEIRA M.D. Performed By: #### B MP ####[address] [address] [place] [address] [facility] GFR/1.73 sq M.predicted MDRD (S/P/Bld) [Vol rate/Area] mL/min/{1.73_m2} Normal [facility] Comment on above: Performed By: #### B MP ####[facility] [place] [address] [facility] Calcium [Mass/volume] in Ser um or PlasmaOrdered By: Adin Boyce on 11-22-2022 Calcium [Mass/Vol] 8.7 mg/dL Normal 8.6-10.3 [facility] Comment on above: Performed By: #### B MP ####[facility] [place] [address] [facility] Carbon dioxide, total [Moles /volume] in Serum or PlasmaOrdered By: Adin Boyce on 11-22-2022 CO2 [Moles/Vol] 24.8 mmol/L Normal 21.0-31.0 [facility] Comment on above: Performed By: #### B MP ####[place] [address] [place] [id number] [facility] Chloride [Moles/volume] in S sammy or PlasmaOrdered By: Aidn Boyce on 11-22-2022 Chloride [Moles/Vol] 104 mmol/L Normal 98-107 [facility] Comment on above: Performed By: #### B MP ####[place] [id number] [facility] Creatinine [Mass/volume] in Serum or PlasmaOrdered By: Adin Boyce on 11-22-2022 Creatinine [Mass/Vol] 1.11 mg/dL Normal 0.70-1.30 [facility] Comment on above: Performed By: #### B MP ####[place] [id number] [facility] Glucose [Mass/volume] in Ser um or PlasmaOrdered By: Adin Boyce on 11-22-2022 Glucose [Mass/Vol] 90 mg/dL Normal 70-100 [facility] Comment on above: ADA recommended refe rence rangeRandom Glucose Reference Range is dependent on time and content of last meal. Glucose of more than 200 mg/dL in a nonstressed, ambulatory subject supports the diagnosis of Diabetes Mellitus. Result Comment: [place] om Glucose Reference Range is dependent on time and content of last meal. Glucose of more than 200 mg/dL in a nonstressed, ambulatory subject supports the diagnosis of Diabetes Mellitus. ADA recommended reference range Performed By: #### B MP ####[place] [id number] [facility] No Panel InformationOrdered By: Adin Boyce on 11-22-2022 Estimated GFR (CKD-EPI) > 60.0 mL/Min [facility] Creatinine Clearance (Chem 70.44 [facility] Potassium [Moles/volume] in Serum or PlasmaOrdered By: Adin Boyce on 11-22-2022 Potassium [Moles/Vol] 3.7 mmol/L Normal 3.5-5.1 [facility] Comment on above: Performed By: #### B MP ####[address] Serum or plasma anion gap de terminationOrdered By: Adin Boyce on 11-22-2022 Anion gap [Moles/Vol] 12.9 mmol/L Normal 6.0-15.0 [facility] Comment on above: Performed By: #### B MP ####[address] Sodium [Moles/volume] in Ser um or PlasmaOrdered By: Adin Boyce on 11-22-2022 Sodium [Moles/Vol] 138 mmol/L Normal 136-145 [facility] Comment on above: Performed By: #### B MP ####[address] Urea nitrogen [Mass/volume] in Serum or PlasmaOrdered By: Adin Boyce on 11-22-2022 Urea nitrogen [Mass/Vol] 27 mg/dL High 7-25 [facility] Comment on above: Performed By: #### B MP ####[address] Alanine aminotransferase [En zymatic activity/volume] in Serum or PlasmaOrdered By: Tricia Salazar on 11-21-2022 ALT [Catalytic activity/Vol] 14 U/L Normal 7-52 [facility] Comment on above: Performed By: #### C MP, CBC ####[address] Albumin [Mass/volume] in Ser um or Plasma by Bromocresol green (BCG) dye binding methoOrdered By: Tricia Evangelistar on 11-21-2022 Albumin BCG dye [Mass/Vol] 3.1 g/dL 3.5-5.7 [facility] Alkaline phosphatase [Enzyma tic activity/volume] in Serum or PlasmaOrdered By: Obaydah Daromar on 11-21-2022 ALP [Catalytic activity/Vol] 75 U/L Normal 34-104 [facility] Comment on above: Performed By: #### C MP, CBC ####[address] Aspartate aminotransferase [ Enzymatic activity/volume] in Serum or PlasmaOrdered By: Obaydah Daromar on 11-21-2022 AST [Catalytic activity/Vol] 18 U/L Normal 13-39 [facility] Comment on above: Performed By: #### C MP, CBC ####[address] Automated basophil %Ordered By: Obaydah Daromar on 11-21-2022 Basophils/100 WBC (Bld) 0.3 % Normal . [facility] Comment on above: Performed By: #### C MP, CBC ####[address] Automated basophil countOrde red By: Obaydah Daromar on 11-21-2022 Basophils (Bld) [#/Vol] 0.0 10*3/uL Normal 0.0-0.2 [facility] Comment on above: Result Comment: PERF ORMED BY:[address] [place], [place] [phone] MEDICAL DIRECTORANNIKA NOGUEIRA M.D. Performed By: #### C MP, CBC ####[address] Automated blood monocyte cou ntOrdered By: Obaydah Daromar on 11-21-2022 Monocytes (Bld) [#/Vol] 0.5 10*3/uL Normal 0.0-0.8 [facility] Comment on above: Performed By: #### C MP, CBC ####[address] Automated eosinophil %Ordere d By: Obaydah Daromar on 11-21-2022 Eosinophils/100 WBC (Bld) 0.1 % Normal . [facility] Comment on above: Performed By: #### C MP, CBC ####[address] Automated eosinophil countOr dered By: Obdahliadah Rennyomar on 11-21-2022 Eosinophils (Bld) [#/Vol] 0.0 10*3/uL Normal 0.0-0.45 [facility] Comment on above: Performed By: #### C MP, CBC ####[address] Automated monocyte %Ordered By: Obaydah Daromar on 11-21-2022 Monocytes/100 WBC (Bld) 7.0 % Normal . [facility] Comment on above: Performed By: #### C MP, CBC ####[address] Automated neutrophil %Ordere d By: Obaydah Rennyomar on 11-21-2022 Neutrophils/100 WBC (Bld) 80.5 % Normal . [facility] Comment on above: Performed By: #### C MP, CBC ####[address] Bilirubin.total [Mass/volume ] in Serum or PlasmaOrdered By: Kkiodashannan Lawsonomar on 11-21-2022 Bilirubin [Mass/Vol] 0.8 mg/dL Normal 0.3-1.0 [facility] Comment on above: Performed By: #### C MP, CBC ####[address] Complete Blood Count Auto Di ffon 11-21-2022 Mean Corpuscular HGB Conc 34.4 g/dL Normal 32.5-35.6 [facility] Comment on above: Performed By: #### C MP, CBC ####[address] NRBC% 0.2 /100{WBC} Normal 0-0.5 [facility] Comment on above: Performed By: #### C MP, CBC ####[address] [address] [facility] Comprehensive Metabolic Pane negro 11-21-2022 Albumin [Mass/Vol] 3.1 g/dL Low 3.5-5.7 [facility] Comment on above: Performed By: #### C MP, CBC ####[address] [address] [facility] Anion gap [Moles/Vol] 11.4 mmol/L Normal 6.0-15.0 [facility] Comment on above: Performed By: #### C MP, CBC ####[place] [id number] [facility] Calcium [Mass/Vol] 8.1 mg/dL Low 8.6-10.3 [facility] Comment on above: Performed By: #### C MP, CBC ####[place] [id number] [facility] Chloride [Moles/Vol] 104 mmol/L Normal 98-107 [facility] Comment on above: Performed By: #### C MP, CBC ####[place] [id number] [facility] CO2 [Moles/Vol] 23.4 mmol/L Normal 21.0-31.0 [facility] Comment on above: Performed By: #### C MP, CBC ####[address] [address] [facility] Creatinine [Mass/Vol] 1.13 mg/dL Normal 0.70-1.30 [facility] Comment on above: Performed By: #### C MP, CBC ####[address] [address] [facility] Creatinine Clr Calc Pharmacy 68.09 Normal [facility] Comment on above: Result Comment: PERF ORMED BY:[address] [address] [address] [place], [place] [id number] MEDICAL JADEN NOGUEIRA M.D. Performed By: #### C MP, CBC ####[place] [id number] [facility] GFR/1.73 sq M.predicted MDRD (S/P/Bld) [Vol rate/Area] mL/min/{1.73_m2} Normal [facility] Comment on above: Performed By: #### C MP, CBC ####[address] Glucose [Mass/Vol] 120 mg/dL High 70-100 [facility] Comment on above: Result Comment: [place] Glucose Reference Range is dependent on time and content of last meal. Glucose of more than 200 mg/dL in a nonstressed, ambulatory subject supports the diagnosis of Diabetes Mellitus. ADA recommended reference range Performed By: #### C MP, CBC ####[address] Potassium [Moles/Vol] 3.8 mmol/L Normal 3.5-5.1 [facility] Comment on above: Performed By: #### C MP, CBC ####[address] Sodium [Moles/Vol] 135 mmol/L Low 136-145 [facility] Comment on above: Performed By: #### C MP, CBC ####[address] Urea nitrogen [Mass/Vol] 28 mg/dL High 7-25 [facility] Comment on above: Performed By: #### C MP, CBC ####[address] Erythrocyte distribution wid th [Ratio] by Automated countOrdered By: Obdahliadashannan Daromar on 11-21-2022 Erythrocyte distribution width (RBC) [Ratio] 15.0 % High 12.0-14.8 [facility] Comment on above: Performed By: #### C MP, CBC ####[address] Erythrocytes [#/volume] in B lood by Automated countOrdered By: Obaydah Daromar on 11-21-2022 RBC (Bld) [#/Vol] 3.79 10*6/uL Low 3.90-5.60 [facility] Comment on above: Performed By: #### C MP, CBC ####[address] Hematocrit [Volume Fraction] of Blood by Automated countOrdered By: Obaydah Daromar on 11-21-2022 Hematocrit (Bld) [Volume fraction] 37.2 % Low 38.8-50.0 [facility] Comment on above: Performed By: #### C MP, CBC ####[address] Hemoglobin [Mass/volume] in BloodOrdered By: Obaydah Daromar on 11-21-2022 Hemoglobin (Bld) [Mass/Vol] 12.8 g/dL Low 13.0-17.0 [facility] Comment on above: Performed By: #### C MP, CBC ####[address] Leukocytes [#/volume] correc michelle for nucleated erythrocytes in Blood by Automated counOrdered By: Obaydah Daromar on 11-21-2022 WBC corrected for nucl RBC Auto (Bld) [#/Vol] 7.2 10*3/uL 4.1-10.5 [facility] Leukocytes [#/volume] in Blo od by Automated countOrdered By: Obaydah Daromar on 11-21-2022 WBC (Bld) [#/Vol] 7.2 10*3/uL Normal 4.1-10.5 [facility] Comment on above: Performed By: #### C MP, CBC ####[address] Lymphocytes [#/volume] in Bl ood by Automated countOrdered By: Obaydah Daromar on 11-21-2022 Lymphocytes (Bld) [#/Vol] 0.9 10*3/uL Low 1.00-4.8 [facility] Comment on above: Performed By: #### C MP, CBC ####[address] Lymphocytes/100 leukocytes i n Blood by Automated countOrdered By: Obdahliadashannan Lawsonomar on 11-21-2022 Lymphocytes/100 WBC (Bld) 12.1 % Normal . [facility] Comment on above: Performed By: #### C MP, CBC ####[facility] [id number] MCH [Entitic mass] by Automa michelle countOrdered By: Obdahliadashannan Lawsonomar on 11-21-2022 MCH (RBC) [Entitic mass] 33.8 pg Normal 27.5-35.2 [facility] Comment on above: Performed By: #### C MP, CBC ####[address] MCHC Auto (RBC) [Mass/Vol]Or dered By: Kikodashannan Lawsonomar on 11-21-2022 MCHC (RBC) [Mass/Vol] 34.4 g/dL 32.5-35.6 [facility] MCV [Entitic volume] by Auto mated countOrdered By: Kikodashannan Lawsonomar on 11-21-2022 MCV (RBC) [Entitic vol] 98.3 fL Normal 83.5-101 [facility] Comment on above: Performed By: #### C MP, CBC ####[facility] [id number] [place] [address] Neutrophils [#/volume] in Bl ood by Automated countOrdered By: Kikodashannan Lawsonomar on 11-21-2022 Neutrophils (Bld) [#/Vol] 5.8 10*3/uL Normal 1.8-7.7 [facility] Comment on above: Performed By: #### C MP, CBC ####[address] Nucleated erythrocytes [Pres ence] in Blood by Automated countOrdered By: Kikodashannan Lawsonomar on 11-21-2022 Nucleated RBC Auto Ql (Bld) 0.2 /100{WBC} 0-0.5 [facility] Platelet mean volume [Entiti c volume] in Blood by Automated countOrdered By: Obaydah Daromar on 11-21-2022 Platelet mean volume (Bld) [Entitic vol] 10.6 fL High 6.6-10.1 [facility] Comment on above: Performed By: #### C MP, CBC ####[address] Platelets [#/volume] in Bloo d by Automated countOrdered By: Obdahliadah Daromar on 11-21-2022 Platelets (Bld) [#/Vol] 85 10*3/uL Low 150-450 [facility] Comment on above: Performed By: #### C MP, CBC ####[address] Protein [Mass/volume] in Ser um or PlasmaOrdered By: Obdahliadah Daromar on 11-21-2022 Protein [Mass/Vol] 5.8 g/dL Low 6.4-8.9 [facility] Comment on above: Performed By: #### C MP, CBC ####[address] Serum globulin measurement b y calculation (mass/volume)Ordered By: Obdahliadah Rennyomar on 11-21-2022 Globulin (S) [Mass/Vol] 2.7 g/dL [facility] Comment on above: Performed By: #### C MP, CBC ####[address] Serum or plasma albumin/glob ulin mass ratioOrdered By: Obdahliadah Daromar on 11-21-2022 Albumin/Globulin [Mass ratio] 1.1 {ratio} [facility] Comment on above: Performed By: #### C MP, CBC ####[place] [id number] [facility] Alanine aminotransferase [En zymatic activity/volume] in Serum or PlasmaOrdered By: Robert Potts on 11-20-2022 ALT [Catalytic activity/Vol] 18 U/L Normal 7-52 [facility] Comment on above: Performed By: #### H S TROP, HEPATIC, CMP, SCAN CBC, CK ####[address] [place] [place] [address] [facility] Albumin [Mass/volume] in Ser um or Plasma by Bromocresol green (BCG) dye binding methoOrdered By: Robert Potts on 11-20-2022 Albumin BCG dye [Mass/Vol] 3.7 g/dL 3.5-5.7 [facility] Alkaline phosphatase [Enzyma tic activity/volume] in Serum or PlasmaOrdered By: Robert Potts on 11-20-2022 ALP [Catalytic activity/Vol] 89 U/L Normal 34-104 [facility] Comment on above: Performed By: #### H S TROP, HEPATIC, CMP, SCAN CBC, CK ####[place] [id number] [facility] Ammonia [Moles/volume] in Pl asmaOrdered By: Robert Potts on 11-20-2022 Ammonia (P) [Moles/Vol] 18 umol/L Normal 11-35 [facility] Comment on above: Result Comment: PERF ORMED BY:[address] [place], [place] [phone] MEDICAL DIRECTORANNIKA NOGUEIRA M.D. Performed By: #### A MM ####[place] [id number] [facility] Anisocytosis [Presence] in B lood by Light microscopyOrdered By: Robert Potts on 11-20-2022 Anisocytosis Ql (Bld) Slight Normal [facility] Comment on above: Performed By: #### H S TROP, HEPATIC, CMP, SCAN CBC, CK ####[place] [id number] [facility] Aspartate aminotransferase [ Enzymatic activity/volume] in Serum or PlasmaOrdered By: Robert Potts on 11-20-2022 AST [Catalytic activity/Vol] 24 U/L Normal 13-39 [facility] Comment on above: Performed By: #### H S TROP, HEPATIC, CMP, SCAN CBC, CK ####[place] [id number] [place] Automated basophil %Ordered By: Robert Potts on 11-20-2022 Basophils/100 WBC (Bld) 0.4 % Normal . [facility] Comment on above: Performed By: #### H S TROP, HEPATIC, CMP, SCAN CBC, CK ####[address] Automated basophil countOrde red By: Robert Potts on 11-20-2022 Basophils (Bld) [#/Vol] 0.0 10*3/uL Normal 0.0-0.2 [facility] Comment on above: Performed By: #### H S TROP, HEPATIC, CMP, SCAN CBC, CK ####[address] Automated blood monocyte cou ntOrdered By: Robert Potts on 11-20-2022 Monocytes (Bld) [#/Vol] 1.1 10*3/uL High 0.0-0.8 [facility] Comment on above: Performed By: #### H S TROP, HEPATIC, CMP, SCAN CBC, CK ####[address] Automated eosinophil %Ordere d By: Robert Potts on 11-20-2022 Eosinophils/100 WBC (Bld) 0.2 % Normal . [facility] Comment on above: Performed By: #### H S TROP, HEPATIC, CMP, SCAN CBC, CK ####[address] Automated eosinophil countOr dered By: Robert Potts on 11-20-2022 Eosinophils (Bld) [#/Vol] 0.0 10*3/uL Normal 0.0-0.45 [facility] Comment on above: Performed By: #### H S TROP, HEPATIC, CMP, SCAN CBC, CK ####[address] Automated erythrocytes count in urine sediment (number/area)Ordered By: Robert Potts on 11-20-2022 RBC Auto (Urine sed) [#/Area] 3-4 [HPF] 0-4 [facility] Automated leukocytes count i n urine sediment (number/area)Ordered By: Robert Potts on 11-20-2022 WBC Auto (Urine sed) [#/Area] 3-4 [HPF] 0-4 [facility] Automated monocyte %Ordered By: Robert Potts on 11-20-2022 Monocytes/100 WBC (Bld) 9.3 % Normal . [facility] Comment on above: Performed By: #### H S TROP, HEPATIC, CMP, SCAN CBC, CK ####[place] [address] Automated neutrophil %Ordere d By: Robert Potts on 11-20-2022 Neutrophils/100 WBC (Bld) 74.0 % Normal . [facility] Comment on above: Performed By: #### H S TROP, HEPATIC, CMP, SCAN CBC, CK ####[address] Automated urine color determ inationOrdered By: Robert Potts on 11-20-2022 Color (U) Dark yellow Critically abnormal Yellow [facility] Comment on above: Order Comment: Name Collection Type:: Voided Performed By: #### A DDONUAPLUS, CUU ####[place] [address] Bilirubin Test strip Ql (U)O rdered By: Robert Potts on 11-20-2022 Bilirubin Ql (U) 2+ Negative [facility] Bilirubin.direct [Mass/volum e] in Serum or PlasmaOrdered By: Robert Potts on 11-20-2022 Bilirubin.direct [Mass/Vol] 0.50 mg/dL 0.03-0.18 [facility] Bilirubin.total [Mass/volume ] in Serum or PlasmaOrdered By: Robert Potts on 11-20-2022 Bilirubin [Mass/Vol] 1.9 mg/dL High 0.3-1.0 [facility] Comment on above: Samples from patient s who have taken Naproxen have shown spurious elevation in Total Bilirubin levels. A metabolite of Naproxen, O-desmethylnaproxen, has been shown to interfere with the Jendrassik-Grof method for measuring Total Bilirubin. Result Comment: Samp les from patients who have taken Naproxen have shown spurious elevation in Total Bilirubin levels. A metabolite of Naproxen, O-desmethylnaproxen, has been shown to interfere with the Jendrassik-Grof method for measuring Total Bilirubin. Performed By: #### H S TROP, HEPATIC, CMP, SCAN CBC, CK ####[place] [address] [place] [id number] [facility] C reactive protein [Mass/vol ume] in Serum or PlasmaOrdered By: Tricia Salazar on 11-20-2022 CRP [Mass/Vol] 5.4 mg/dL 0.0-0.5 [facility] C-Reactive Proteinon 023 C-Reactive Protein 5.4 mg/dL High 0.0-0.5 [facility] Comment on above: Order Comment: Comme nt add on Result Comment: PERF ORMED BY:[address] [address] [address] [place], [place] [phone] MEDICAL DIRECTORANNIKA NOGUEIRA M.D. Performed By: #### E SR, CRP ####[place] [address] [place] [id number] [facility] CT cervical spine wo conon 1 CT cervical spine wo con Normal [facility] Calcium [Mass/volume] in Ser um or PlasmaOrdered By: Robert Potts on 11-20-2022 Calcium [Mass/Vol] 8.7 mg/dL Normal 8.6-10.3 [facility] Comment on above: Performed By: #### H S TROP, HEPATIC, CMP, SCAN CBC, CK ####[place] [id number] [facility] Capillary blood glucose dash urement by glucometer (mass/volume)Ordered By: PROVIDER TEMMan on 11-20-2022 Glucose [Mass/Vol] 126 mg/dL Normal [facility] Comment on above: Random Glucose Refer ence Range is dependent on time and content of last meal. Glucose of more than 200 mg/dL in a nonstressed, ambulatory subject supports the diagnosis of Diabetes Mellitus. Result Comment: [facility] Glucose Reference Range is dependent on time and content of last meal. Glucose of more than 200 mg/dL in a nonstressed, ambulatory subject supports the diagnosis of Diabetes Mellitus. Performed By: #### G RE ####Point of Care testing, Carbon dioxide, total [Moles /volume] in Serum or PlasmaOrdered By: Robert Delroy on 11-20-2022 CO2 [Moles/Vol] 25.3 mmol/L Normal 21.0-31.0 [facility] Comment on above: Performed By: #### H S TROP, HEPATIC, CMP, SCAN CBC, CK ####[place] [address] [place] [id number] [facility] Chloride [Moles/volume] in S sammy or PlasmaOrdered By: Robert Potts on 11-20-2022 Chloride [Moles/Vol] 102 mmol/L Normal 98-107 [facility] Comment on above: Performed By: #### H S TROP, HEPATIC, CMP, SCAN CBC, CK ####[place] [id number] [facility] Comprehensive Metabolic Pane negro 11-20-2022 Albumin [Mass/Vol] 3.7 g/dL Normal 3.5-5.7 [facility] Comment on above: Performed By: #### H S TROP, HEPATIC, CMP, SCAN CBC, CK ####[place] [id number] [facility] Creatinine Clr Calc Pharmacy 58.92 Normal [facility] Comment on above: Performed By: #### H S TROP, HEPATIC, CMP, SCAN CBC, CK ####[place] [id number] [facility] GFR/1.73 sq M.predicted MDRD (S/P/Bld) [Vol rate/Area] mL/min/{1.73_m2} Normal [facility] Comment on above: Performed By: #### H S TROP, HEPATIC, CMP, SCAN CBC, CK ####[place] [id number] [facility] Creatine kinase [Enzymatic a ctivity/volume] in Serum or PlasmaOrdered By: Robert Potts on 11-20-2022 CK [Catalytic activity/Vol] 62 U/L Normal 30-223 [facility] Comment on above: Performed By: #### H S TROP, HEPATIC, CMP, SCAN CBC, CK ####[address] [address] [facility] Creatinine [Mass/volume] in Serum or PlasmaOrdered By: Robert Pickeringarthy on 11-20-2022 Creatinine [Mass/Vol] 1.24 mg/dL Normal 0.70-1.30 [facility] Comment on above: Performed By: #### H S TROP, HEPATIC, CMP, SCAN CBC, CK ####[place] [id number] [facility] Dipstick and Microscopicon 1 Appearance (U) Clear Normal Clear [facility] Comment on above: Order Comment: Name Collection Type:: Voided Performed By: #### A DDONUAPLUS, CUU ####[address] [address] [facility] Bacteria,Urine None Seen Normal None Seen [facility] Comment on above: Order Comment: Name Collection Type:: Voided Performed By: #### A DDONUAPLUS, CUU ####[address] [address] [facility] Bilirubin,Urine 2+ High Negative [facility] Comment on above: Order Comment: Name Collection Type:: Voided Performed By: #### A DDONUAPLUS, CUU ####[address] [address] [facility] Glucose Ql (U) Normal Normal Normal [facility] Comment on above: Order Comment: Name Collection Type:: Voided Performed By: #### A DDONUAPLUS, CUU ####[address] [address] [facility] Hyaline Casts,Urine 9-19 High 0-8 [facility] Comment on above: Order Comment: Name Collection Type:: Voided Result Comment: PERF ORMED BY:[address] [place], [place] [phone] MEDICAL DIRECTORANNIKA NOGUEIRA M.D. Performed By: #### A DDONUAPLUS, CUU ####[address] [address] [facility] Ketones Ql (U) Trace High Negative [facility] Comment on above: Order Comment: Name Collection Type:: Voided Performed By: #### A DDONUAPLUS, CUU ####[address] [address] [facility] Leukocyte esterase Test strip Ql (U) 1+ High Negative [facility] Comment on above: Order Comment: Name Collection Type:: Voided Performed By: #### A DDONUAPLUS, CUU ####[address] [address] [facility] Nitrite,Urine Positive High Negative [facility] Comment on above: Order Comment: Name Collection Type:: Voided Performed By: #### A DDONUAPLUS, CUU ####[address] [address] [facility] Occult Blood,Urine Negative Normal Negative [facility] Comment on above: Order Comment: Name Collection Type:: Voided Result Comment: PERF ORMED BY:[address] [place], [place] [phone] MEDICAL DIRECTORANNIKA NOGUEIRA M.D. Performed By: #### A DDONUAPLUS, CUU ####[address] [address] [facility] RBC,Urine 3-4 Normal 0-4 [facility] Comment on above: Order Comment: Name Collection Type:: Voided Performed By: #### A DDONUAPLUS, CUU ####[address] [address] [facility] Specificy Clio,Urine 1.026 Normal 1.001-1.03 0 [facility] Comment on above: Order Comment: Name Collection Type:: Voided Performed By: #### A DDONUAPLUS, CUU ####[place] [id number] [facility] Squamous Epithelial Cell,Urine 0-1 Normal 0-2 [facility] Comment on above: Order Comment: Name Collection Type:: Voided Performed By: #### A DDONUAPLUS, CUU ####[place] [id number] [facility] Urobilinogen,Urine Normal Normal Normal [facility] Comment on above: Order Comment: Name Collection Type:: Voided Performed By: #### A DDONUAPLUS, CUU ####[place] [id number] [facility] WBC,Urine 3-4 Normal 0-4 [facility] Comment on above: Order Comment: Name Collection Type:: Voided Performed By: #### A DDONUAPLUS, CUU ####[place] [id number] [facility] ECG 12 lead ECGon 11-20-2022 ECG 12 lead ECG Normal [facility] Erythrocyte Sedimentation Ra sung 11-20-2022 ESR (Bld) [Velocity] 17 mm/h Normal 0-19 [facility] Comment on above: Order Comment: Comme nt add on Result Comment: PERF ORMED BY:[address] [place], [place] [phone] MEDICAL JADEN NOGUEIRA M.D. Performed By: #### E SR, CRP ####[address] Erythrocyte distribution wid th [Ratio] by Automated countOrdered By: Robert Potts on 11-20-2022 Erythrocyte distribution width (RBC) [Ratio] 15.3 % High 12.0-14.8 [facility] Comment on above: Performed By: #### H S TROP, HEPATIC, CMP, SCAN CBC, CK ####[place] [id number] [facility] Erythrocyte sedimentation ra te by Photometric methodOrdered By: Tricia Salazar on 11-20-2022 ESR Photometric method (Bld) [Velocity] 17 mm/hr 0-19 [facility] Erythrocytes [#/volume] in B lood by Automated countOrdered By: Robert Potts on 11-20-2022 RBC (Bld) [#/Vol] 4.43 10*6/uL Normal 3.90-5.60 [facility] Comment on above: Performed By: #### H S TROP, HEPATIC, CMP, SCAN CBC, CK ####[address] [place] [address] [facility] Glucose Poct Glucometerson 1 0 Commemt1 Glu2: Cleaned Meter Normal [facility] Comment on above: Result Comment: PERF ORMED BY:[address] [place], [place] [phone] MEDICAL DIRECTORANNIKA NOGUEIRA M.D. Performed By: #### G LUERIC ####Point of Care testing, Glucose [Mass/volume] in Ser um or PlasmaOrdered By: Robert Potts on 11-20-2022 Glucose [Mass/Vol] 117 mg/dL High 70-100 [facility] Comment on above: ADA recommended refe rence rangeRandom Glucose Reference Range is dependent on time and content of last meal. Glucose of more than 200 mg/dL in a nonstressed, ambulatory subject supports the diagnosis of Diabetes Mellitus. Result Comment: [place] [facility] Glucose Reference Range is dependent on time and content of last meal. Glucose of more than 200 mg/dL in a nonstressed, ambulatory subject supports the diagnosis of Diabetes Mellitus. ADA recommended reference range Performed By: #### H S TROP, HEPATIC, CMP, SCAN CBC, CK ####[address] [address] [place] [address] [facility] Hematocrit [Volume Fraction] of Blood by Automated countOrdered By: Robert Potts on 11-20-2022 Hematocrit (Bld) [Volume fraction] 44.0 % Normal 38.8-50.0 [facility] Comment on above: Performed By: #### H S TROP, HEPATIC, CMP, SCAN CBC, CK ####[place] [id number] [place] Hemoglobin [Mass/volume] in BloodOrdered By: Robert Potts on 11-20-2022 Hemoglobin (Bld) [Mass/Vol] 14.9 g/dL Normal 13.0-17.0 [facility] Comment on above: Performed By: #### H S TROP, HEPATIC, CMP, SCAN CBC, CK ####[place] [address] [place] [address] [facility] Hepatic Panelon 11-20-2022 Bilirubin,Indirect 1.4 mg/dL Normal [facility] Comment on above: Result Comment: PERF ORMED BY:[address] [place], [place] [id number] MEDICAL DIRECTORANNIKA NOGUEIRA M.D. Performed By: #### H S TROP, HEPATIC, CMP, SCAN CBC, CK ####[place] [address] [place] [address] [facility] Bilirubin.indirect [Mass/Vol] 0.50 mg/dL High 0.03-0.18 [facility] Comment on above: Performed By: #### H S TROP, HEPATIC, CMP, SCAN CBC, CK ####[address] [address] [facility] Ketones Auto test strip (U) [Mass/Vol]Ordered By: Robert Potts on 11-20-2022 Ketones (U) [Mass/Vol] Trace Negative [facility] - UrinalysisOrder ed By: Robert Potts on 11-20-2022 Hyaline casts LM Ql (Urine sed) 9-19 [LPF] 0-8 [facility] Leukocytes [#/volume] correc michelle for nucleated erythrocytes in Blood by Automated counOrdered By: Robert Potts on 11-20-2022 WBC corrected for nucl RBC Auto (Bld) [#/Vol] 12.1 10*3/uL 4.1-10.5 [facility] Leukocytes [#/volume] in Blo od by Automated countOrdered By: Robert Potts on 11-20-2022 WBC (Bld) [#/Vol] 12.1 10*3/uL High 4.1-10.5 [facility] Comment on above: Performed By: #### H S TROP, HEPATIC, CMP, SCAN CBC, CK ####[address] Lymphocytes [#/volume] in Bl ood by Automated countOrdered By: Robert Potts on 11-20-2022 Lymphocytes (Bld) [#/Vol] 1.9 10*3/uL Normal 1.00-4.8 [facility] Comment on above: Performed By: #### H S TROP, HEPATIC, CMP, SCAN CBC, CK ####[address] Lymphocytes/100 leukocytes i n Blood by Automated countOrdered By: Robert Potts on 11-20-2022 Lymphocytes/100 WBC (Bld) 16.1 % Normal . [facility] Comment on above: Performed By: #### H S TROP, HEPATIC, CMP, SCAN CBC, CK ####[address] MCH [Entitic mass] by Automa michelle countOrdered By: Robert Potts on 11-20-2022 MCH (RBC) [Entitic mass] 33.7 pg Normal 27.5-35.2 [facility] Comment on above: Performed By: #### H S TROP, HEPATIC, CMP, SCAN CBC, CK ####[address] MCHC Auto (RBC) [Mass/Vol]Or dered By: Robert Potts on 11-20-2022 MCHC (RBC) [Mass/Vol] 33.8 g/dL 32.5-35.6 [facility] MCV [Entitic volume] by Auto mated countOrdered By: Robert Potts on 11-20-2022 MCV (RBC) [Entitic vol] 99.4 fL Normal 83.5-101 [facility] Comment on above: Performed By: #### H S TROP, HEPATIC, CMP, SCAN CBC, CK ####[address] Macrocytes LM Ql (Bld)Ordere d By: Robert Potts on 11-20-2022 Macrocytes Ql (Bld) Slight [facility] Monocyte distribution width [Entitic volume] in Blood by AutomatedOrdered By: Robert Potts on 11-20-2022 Monocyte distribution width Auto (Bld) [Entitic vol] 20.87 % 0.00-20.00 [facility] Comment on above: The predictive value of MDW for identifying sepsis in patients with hematological abnormalities has not been established Neutrophils [#/volume] in Bl ood by Automated countOrdered By: Robert Potts on 11-20-2022 Neutrophils (Bld) [#/Vol] 8.9 10*3/uL High 1.8-7.7 [facility] Comment on above: Performed By: #### H S TROP, HEPATIC, CMP, SCAN CBC, CK ####[facility] [id number] Nitrite Test strip Ql (U)Ord ered By: Robert Potts on 11-20-2022 Nitrite Ql (U) Positive Negative [facility] No Panel InformationOrdered By: Robert Potts on 11-20-2022 Estimated GFR (CKD-EPI) > 60.0 mL/Min [facility] Creatinine Clearance (Chem 58.92 [facility] No Panel InformationOrdered By: PROVIDER TEMP on 11-20-2022 Bedside Glucose Comment Glu2: cleaned meter [facility] Nucleated erythrocytes [Pres ence] in Blood by Automated countOrdered By: Robert Potts on 11-20-2022 Nucleated RBC Auto Ql (Bld) 0.1 /100{WBC} 0-0.5 [facility] Platelet adequacy [Presence] in Blood by Light microscopyOrdered By: Robert Potts on 11-20-2022 Platelets LM Ql (Bld) Decreased Normal [facility] Platelet mean volume [Entiti c volume] in Blood by Automated countOrdered By: Robert Potts on 11-20-2022 Platelet mean volume (Bld) [Entitic vol] 10.0 fL Normal 6.6-10.1 [facility] Comment on above: Performed By: #### H S TROP, HEPATIC, CMP, SCAN CBC, CK ####[place] [id number] [facility] Platelet morphology finding [Identifier] in BloodOrdered By: Robert Potts on 11-20-2022 Platelet morphology finding Nom (Bld) Normal Normal [facility] Platelets [#/volume] in Bloo d by Automated countOrdered By: Robert Potts on 11-20-2022 Platelets (Bld) [#/Vol] 100 10*3/uL Low 150-450 [facility] Comment on above: Performed By: #### H S TROP, HEPATIC, CMP, SCAN CBC, CK ####[address] Polychromasia [Presence] in Blood by Light microscopyOrdered By: Robert Potts on 11-20-2022 Polychromasia LM Ql (Bld) Slight [facility] Potassium [Moles/volume] in Serum or PlasmaOrdered By: Robert Potts on 11-20-2022 Potassium [Moles/Vol] 3.8 mmol/L Normal 3.5-5.1 [facility] Comment on above: Performed By: #### H S TROP, HEPATIC, CMP, SCAN CBC, CK ####[address] Protein [Mass/volume] in Ser um or PlasmaOrdered By: Robert Potts on 11-20-2022 Protein [Mass/Vol] 6.7 g/dL Normal 6.4-8.9 [facility] Comment on above: Performed By: #### H S TROP, HEPATIC, CMP, SCAN CBC, CK ####[place] [id number] [facility] RBC morphologyOrdered By: Anibal Potts on 11-20-2022 RBC morphology finding Nom (Bld) N/A [facility] Scan and CBCon 11-20-2022 Macrocytosis Slight Normal [facility] Comment on above: Performed By: #### H S TROP, HEPATIC, CMP, SCAN CBC, CK ####[address] Mean Corpuscular HGB Conc 33.8 g/dL Normal 32.5-35.6 [facility] Comment on above: Performed By: #### H S TROP, HEPATIC, CMP, SCAN CBC, CK ####[address] Monocytes/100 WBC (Bld) 20.87 % High 0.00-20.00 [facility] Comment on above: Result Comment: The predictive value of MDW for identifying sepsis in patients with hematological abnormalities has not been established Performed By: #### H S TROP, HEPATIC, CMP, SCAN CBC, CK ####[address] NRBC% 0.1 /100{WBC} Normal 0-0.5 [facility] Comment on above: Performed By: #### H S TROP, HEPATIC, CMP, SCAN CBC, CK ####[address] Platelet Estimate Decreased Normal Normal [facility] Comment on above: Performed By: #### H S TROP, HEPATIC, CMP, SCAN CBC, CK ####[address] Platelet Morphology Normal Normal Normal [facility] Comment on above: Result Comment: PERF ORMED BY:[address] [place], [place] [phone] MEDICAL DIRECTORANNIKA NOGUEIRA M.D. Performed By: #### H S TROP, HEPATIC, CMP, SCAN CBC, CK ####[address] Polychromasia Slight Normal [facility] Comment on above: Performed By: #### H S TROP, HEPATIC, CMP, SCAN CBC, CK ####[address] Serum globulin measurement b y calculation (mass/volume)Ordered By: Robert Potts on 11-20-2022 Globulin (S) [Mass/Vol] 3.0 g/dL [facility] Comment on above: Performed By: #### H S TROP, HEPATIC, CMP, SCAN CBC, CK ####[place] [address] Serum or plasma albumin/glob ulin mass ratioOrdered By: Robert Potts on 11-20-2022 Albumin/Globulin [Mass ratio] 1.2 {ratio} [facility] Comment on above: Performed By: #### H S TROP, HEPATIC, CMP, SCAN CBC, CK ####[address] Serum or plasma anion gap de terminationOrdered By: Robert Potts on 11-20-2022 Anion gap [Moles/Vol] 12.5 mmol/L Normal 6.0-15.0 [facility] Comment on above: Performed By: #### H S TROP, HEPATIC, CMP, SCAN CBC, CK ####[address] Serum or plasma non-glucuron idated bilirubin measurement (mass/volume)Ordered By: Robert Potts on 11-20-2022 Bilirubin.indirect [Mass/Vol] 1.4 mg/dL [facility] Sodium [Moles/volume] in Ser um or PlasmaOrdered By: Robert Potts on 11-20-2022 Sodium [Moles/Vol] 136 mmol/L Normal 136-145 [facility] Comment on above: Performed By: #### H S TROP, HEPATIC, CMP, SCAN CBC, CK ####[address] Specific gravity Auto test s trip (U) [Rel density]Ordered By: Robert Potts on 11-20-2022 Specific gravity (U) [Rel density] 1.026 1.001-1.03 0 [facility] Squamous epithelial cells de tection in urine sediment by light microscopyOrdered By: Robert Potts on 11-20-2022 Epithelial cells.squamous LM Ql (Urine sed) 0-1 [HPF] 0-2 [facility] Troponin I High Sensitivityo n 11-20-2022 Troponin I High Sensitivity 59.7 pg/mL Off scale high 0.0-20.0 [facility] Comment on above: Result Comment: Crit ical Result : Called to and read back by: ALYSHA WHITMORE at: 11/20/2022 09:08:22 by:SIGRIDERFORMED BY:[place] [address] [address] [place], [place] [phone] MEDICAL DIRECTORANNIKA NOGUEIRA M.D. Performed By: #### H S TROP, HEPATIC, CMP, SCAN CBC, CK ####[address] [address] [facility] Troponin I.cardiac [Mass/vol ume] in Serum or Plasma by Detection limit <= 0.01 ng/Ordered By: Robert Potts on 11-20-2022 Troponin I.cardiac DL <= 0.01 ng/mL [Mass/Vol] 59.7 pg/mL 0.0-20.0 [facility] Comment on above: Critical Result : Ca lled to and read back by: ALYSHA WHITMORE at: 11/20/2022 09:08:22 by:NISHA Urate [Mass/volume] in Serum or PlasmaOrdered By: Tricia Salazar on 11-20-2022 Urate [Mass/Vol] 8.1 mg/dL High 4.4-7.6 [facility] Comment on above: Order Comment: Comme nt add on Result Comment: PERF ORMED BY:[place] [address] [address] [place], [place] [phone] MEDICAL DIRECTORANNIKA NOGUEIRA M.D. Performed By: #### U JOSE L ####[address] [address] [facility] Urea nitrogen [Mass/volume] in Serum or PlasmaOrdered By: Robert Potts on 11-20-2022 Urea nitrogen [Mass/Vol] 21 mg/dL Normal 7-25 [facility] Comment on above: Performed By: #### H S TROP, HEPATIC, CMP, SCAN CBC, CK ####[address] [address] [facility] Urine Cultureon 11-20-2022 Bacteria identified Cx Nom (U) No Growth 2 Days PERFORMED BY: [facility] [address] [place] [address] PATHOLOGIST CLIENT EVALUATOR ANNIKA NOGUEIRA M.D. Normal [facility] Comment on above: Performed By: #### A BRIANNA CASTANEDAU ####[place] [address] [place] [address] [facility] Urine bacteria detection by automated methodOrdered By: Robert Potts on 11-20-2022 Bacteria Auto Ql (U) None seen None Seen [facility] Urine clarity by refractomet ry automatedOrdered By: Robert Potts on 11-20-2022 Clarity Refractometry automated (U) Clear Clear [facility] Urine culture routineOrdered By: Robert Potts on 11-20-2022 Bacteria identified Cx Nom (U) No Growth 2 Days [facility] Bacteria identified Cx Nom (U) No Growth 2 Days [facility] Urine glucose measurement by automated test strip (mass/volume)Ordered By: Robert Potts on 11-20-2022 Glucose Auto test strip (U) [Mass/Vol] Normal mg/dL Normal [facility] Urine hemoglobin detection b y automated test stripOrdered By: Robert Potts on 11-20-2022 Hemoglobin Auto test strip Ql (U) Negative Negative [facility] Urine leukocyte esterase det ection by automated test stripOrdered By: Robert Potts on 11-20-2022 Leukocyte esterase Auto test strip Ql (U) 1+ Negative [facility] Urine pH measurement by auto mated test stripOrdered By: Robert Potts on 11-20-2022 pH (U) 5.0 [pH] Normal 5.0-9.0 [facility] Comment on above: Order Comment: Name Collection Type:: Voided Performed By: #### A SARAH CASTANEDA ####[place] [address] [place] [address] [facility] Urine protein measurement by automated test strip (mass/volume)Ordered By: Robert Potts on 11-20-2022 Protein (U) [Mass/Vol] 300 mg/dL High Negative [facility] Comment on above: Order Comment: Name Collection Type:: Voided Performed By: #### A DDONUAPLUS, CUU ####[place] [id number] [facility] Urobilinogen Auto test strip (U) [Mass/Vol]Ordered By: Robert Potts on 11-20-2022 Urobilinogen (U) [Mass/Vol] Normal mg/dL Normal [facility] XR knee RT 2Von 11-20-2022 XR knee RT 2V Normal [facility] Alanine aminotransferase [En zymatic activity/volume] in Serum or PlasmaOrdered By: Obdahliadashannan Lawsonomar on 11-03-2022 ALT [Catalytic activity/Vol] 44 U/L Normal 7-52 [facility] Comment on above: Performed By: #### C MP ####[address] Albumin [Mass/volume] in Ser um or Plasma by Bromocresol green (BCG) dye binding methoOrdered By: Obdahliadah Daromar on 11-03-2022 Albumin BCG dye [Mass/Vol] 3.2 g/dL 3.5-5.7 [facility] Alkaline phosphatase [Enzyma tic activity/volume] in Serum or PlasmaOrdered By: Obaydah Daromar on 11-03-2022 ALP [Catalytic activity/Vol] 67 U/L Normal 34-104 [facility] Comment on above: Performed By: #### C MP ####[place] [id number] [facility] Aspartate aminotransferase [ Enzymatic activity/volume] in Serum or PlasmaOrdered By: Obaydah Daromar on 11-03-2022 AST [Catalytic activity/Vol] 69 U/L High 13-39 [facility] Comment on above: Performed By: #### C MP ####[address] Bilirubin.total [Mass/volume ] in Serum or PlasmaOrdered By: Obaydah Daromar on 11-03-2022 Bilirubin [Mass/Vol] 0.4 mg/dL Normal 0.3-1.0 [facility] Comment on above: Performed By: #### C MP ####[address] [address] [facility] Calcium [Mass/volume] in Ser um or PlasmaOrdered By: Obaydah Daromar on 11-03-2022 Calcium [Mass/Vol] 8.4 mg/dL Low 8.6-10.3 [facility] Comment on above: Performed By: #### C MP ####[place] [id number] [facility] Carbon dioxide, total [Moles /volume] in Serum or PlasmaOrdered By: Obdahliadashannan Moonfruitomar on 11-03-2022 CO2 [Moles/Vol] 28.7 mmol/L Normal 21.0-31.0 [facility] Comment on above: Performed By: #### C MP ####[place] [id number] [facility] Chloride [Moles/volume] in S sammy or PlasmaOrdered By: ObNJVCdah Moonfruitomar on 11-03-2022 Chloride [Moles/Vol] 107 mmol/L Normal 98-107 [facility] Comment on above: Performed By: #### C MP ####[address] [address] [facility] Comprehensive Metabolic Pane negro 11-03-2022 Albumin [Mass/Vol] 3.2 g/dL Low 3.5-5.7 [facility] Comment on above: Performed By: #### C MP ####[place] [id number] [facility] Creatinine Clr Calc Pharmacy 69.59 Normal [facility] Comment on above: Result Comment: PERF ORMED BY:[place] [address] [place], [place] [phone] MEDICAL DIRECTORANNIKA NOGUEIRA M.D. Performed By: #### C MP ####[address] [address] [facility] GFR/1.73 sq M.predicted MDRD (S/P/Bld) [Vol rate/Area] mL/min/{1.73_m2} Normal [facility] Comment on above: Performed By: #### C MP ####[place] [address] [place] [id number] [facility] Creatinine [Mass/volume] in Serum or PlasmaOrdered By: Obdahliadashannan Lawsonomar on 11-03-2022 Creatinine [Mass/Vol] 1.05 mg/dL Normal 0.70-1.30 [facility] Comment on above: Performed By: #### C MP ####[address] [address] [facility] Glucose [Mass/volume] in Ser um or PlasmaOrdered By: Obdahliadashannan Lawsonomar on 11-03-2022 Glucose [Mass/Vol] 81 mg/dL Normal 70-100 [facility] Comment on above: ADA recommended refe rence rangeRandom Glucose Reference Range is dependent on time and content of last meal. Glucose of more than 200 mg/dL in a nonstressed, ambulatory subject supports the diagnosis of Diabetes Mellitus. Result Comment: [place] [facility] Glucose Reference Range is dependent on time and content of last meal. Glucose of more than 200 mg/dL in a nonstressed, ambulatory subject supports the diagnosis of Diabetes Mellitus. ADA recommended reference range Performed By: #### C MP ####[address] [address] [facility] No Panel InformationOrdered By: Kikodashannan Lawsonomar on 11-03-2022 Estimated GFR (CKD-EPI) > 60.0 mL/Min [facility] Creatinine Clearance (Chem 69.59 [facility] Potassium [Moles/volume] in Serum or PlasmaOrdered By: Obdahliadashannan Daromar on 11-03-2022 Potassium [Moles/Vol] 3.6 mmol/L Normal 3.5-5.1 [facility] Comment on above: Performed By: #### C MP ####[place] [id number] [facility] Protein [Mass/volume] in Ser um or PlasmaOrdered By: Obdahliadah Daromar on 11-03-2022 Protein [Mass/Vol] 6.0 g/dL Low 6.4-8.9 [facility] Comment on above: Performed By: #### C MP ####[place] [id number] [facility] Serum globulin measurement b y calculation (mass/volume)Ordered By: Obaydah Daromar on 11-03-2022 Globulin (S) [Mass/Vol] 2.8 g/dL Normal [facility] Comment on above: Performed By: #### C MP ####[place] [id number] [facility] Serum or plasma albumin/glob ulin mass ratioOrdered By: Obaydah Daromar on 11-03-2022 Albumin/Globulin [Mass ratio] 1.1 {ratio} [facility] Comment on above: Performed By: #### C MP ####[place] [id number] [facility] Serum or plasma anion gap de terminationOrdered By: Obaydah Daromar on 11-03-2022 Anion gap [Moles/Vol] 7.9 mmol/L Normal 6.0-15.0 [facility] Comment on above: Performed By: #### C MP ####[place] [id number] [facility] Sodium [Moles/volume] in Ser um or PlasmaOrdered By: Obaydah Daromar on 11-03-2022 Sodium [Moles/Vol] 140 mmol/L Normal 136-145 [facility] Comment on above: Performed By: #### C MP ####[place] [id number] [facility] Urea nitrogen [Mass/volume] in Serum or PlasmaOrdered By: Obaydah Daromar on 11-03-2022 Urea nitrogen [Mass/Vol] 20 mg/dL Normal 7-25 [facility] Comment on above: Performed By: #### C MP ####[place] [id number] [facility] BioFire Detectedon 3 BioFire Detected Detected Critically abnormal Not Detecte [facility] Comment on above: Result Comment: This is a duplicate RP2.1 COVID (PCR) result to be used for statistical tracking purpose only.PERFORMED BY:[address] [place], [place] [phone] MEDICAL DIRECTORANNIKA NOGUEIRA M.D. Performed By: #### R RUBY PANEL UPP., BIOFIRECOVDET ####[address] [address] [facility] COVID-19 Detected/Not Detect edOrdered By: Tricia Salazar on 11-02-2022 SARS-CoV-2 (COVID-19) RNA GIANLUCA+non-probe Ql (Nph) Detected Not Detecte [facility] Comment on above: This is a duplicate RP2.1 COVID (PCR) result to be used for statistical tracking purpose only. Comprehensive Metabolic Pane negro 11-02-2022 Albumin [Mass/Vol] 3.2 g/dL Low 3.5-5.7 [facility] Comment on above: Performed By: #### C MP, URIC ####[address] [address] [facility] Albumin/Globulin [Mass ratio] 1.0 {ratio} Normal [facility] Comment on above: Performed By: #### C MP, URIC ####[address] [address] [facility] ALP [Catalytic activity/Vol] 67 U/L Normal 34-104 [facility] Comment on above: Performed By: #### C MP, URIC ####[address] [address] [facility] ALT [Catalytic activity/Vol] 41 U/L Normal 7-52 [facility] Comment on above: Performed By: #### C MP, URIC ####[place] [id number] [facility] Anion gap [Moles/Vol] 9.1 mmol/L Normal 6.0-15.0 [facility] Comment on above: Performed By: #### C MP, URIC ####[address] AST [Catalytic activity/Vol] 66 U/L High 13-39 [facility] Comment on above: Performed By: #### C MP, URIC ####[address] Bilirubin [Mass/Vol] 0.6 mg/dL Normal 0.3-1.0 [facility] Comment on above: Performed By: #### C MP, URIC ####[address] Calcium [Mass/Vol] 8.4 mg/dL Low 8.6-10.3 [facility] Comment on above: Performed By: #### C MP, URIC ####[address] Chloride [Moles/Vol] 106 mmol/L Normal 98-107 [facility] Comment on above: Performed By: #### C MP, URIC ####[address] CO2 [Moles/Vol] 26.0 mmol/L Normal 21.0-31.0 [facility] Comment on above: Performed By: #### C MP, URIC ####[address] Creatinine [Mass/Vol] 1.10 mg/dL Normal 0.70-1.30 [facility] Comment on above: Performed By: #### C MP, URIC ####[address] Creatinine Clr Calc Pharmacy 66.42 Normal [facility] Comment on above: Performed By: #### C MP, URIC ####[address] GFR/1.73 sq M.predicted MDRD (S/P/Bld) [Vol rate/Area] mL/min/{1.73_m2} Normal [facility] Comment on above: Performed By: #### C MP, URIC ####[address] [place] [address] [place] Globulin (S) [Mass/Vol] 3.1 g/dL Normal [facility] Comment on above: Performed By: #### C MP, URIC ####[address] Glucose [Mass/Vol] 124 mg/dL High 70-100 [facility] Comment on above: Result Comment: [facility] Glucose Reference Range is dependent on time and content of last meal. Glucose of more than 200 mg/dL in a nonstressed, ambulatory subject supports the diagnosis of Diabetes Mellitus. ADA recommended reference range Performed By: #### C MP, URIC ####[address] Potassium [Moles/Vol] 4.1 mmol/L Normal 3.5-5.1 [facility] Comment on above: Performed By: #### C MP, URIC ####[address] Protein [Mass/Vol] 6.3 g/dL Low 6.4-8.9 [facility] Comment on above: Performed By: #### C MP, URIC ####[address] Sodium [Moles/Vol] 137 mmol/L Normal 136-145 [facility] Comment on above: Performed By: #### C MP, URIC ####[address] Urea nitrogen [Mass/Vol] 21 mg/dL Normal 7-25 [facility] Comment on above: Performed By: #### C MP, URIC ####[place] [id number] [facility] Respiratory (Upper) Panel, P CRon 11-02-2022 Respiratory (Upper) Panel, PCR Normal [facility] Comment on above: Performed By: #### R RUBY PANEL UPP., BIOFIRECOVDET ####[address] Respiratory pathogens DNA an d RNA panel - Nasopharynx by GIANLUCA with non-probe detectionOrdered By: Tricia Salazar on 11-02-2022 Respiratory pathogens DNA and RNA panel GIANLUCA+non-probe (Nph) [facility] Respiratory pathogens DNA and RNA panel GIANLUCA+non-probe (Nph) [facility] Urate [Mass/volume] in Serum or PlasmaOrdered By: Tricia Salazar on 11-02-2022 Urate [Mass/Vol] 6.5 mg/dL Normal 4.4-7.6 [facility] Comment on above: Result Comment: PERF ORMED BY:[address] [place], [place] [phone] MEDICAL DIRECTORANNIKA NOGUEIRA M.D. Performed By: #### C MP, URIC ####[address] [address] [facility] XR chest 1V portableon 11-02 XR chest 1V portable Normal [facility] Alanine aminotransferase [En zymatic activity/volume] in Serum or PlasmaOrdered By: Mariano [place] on 11-01-2022 ALT [Catalytic activity/Vol] 41 U/L Normal 7-52 [facility] Comment on above: Performed By: #### C MP, HS TROP, CBC ####[address] [address] [facility] Albumin [Mass/volume] in Ser um or Plasma by Bromocresol green (BCG) dye binding methoOrdered By: Mariano [place] on 11-01-2022 Albumin BCG dye [Mass/Vol] 3.3 g/dL 3.5-5.7 [facility] Alkaline phosphatase [Enzyma tic activity/volume] in Serum or PlasmaOrdered By: Mariano [place] on 11-01-2022 ALP [Catalytic activity/Vol] 69 U/L Normal 34-104 [facility] Comment on above: Performed By: #### C MP, HS TROP, CBC ####[address] [address] [facility] Aspartate aminotransferase [ Enzymatic activity/volume] in Serum or PlasmaOrdered By: Mariano [place] on 11-01-2022 AST [Catalytic activity/Vol] 65 U/L High 13-39 [facility] Comment on above: Performed By: #### C MP, HS TROP, CBC ####[address] Automated basophil %Ordered By: Mariano [place] on 11-01-2022 Basophils/100 WBC (Bld) 0.3 % Normal . [facility] Comment on above: Performed By: #### C MP, HS TROP, CBC ####[address] Automated basophil countOrde red By: Mariano [place]kins on 11-01-2022 Basophils (Bld) [#/Vol] 0.0 10*3/uL Normal 0.0-0.2 [facility] Comment on above: Result Comment: PERF ORMED BY:[address] [place], [place] [phone] MEDICAL DIRECTORANNIKA NOGUEIRA M.D. Performed By: #### C MP, HS TROP, CBC ####[address] Automated blood monocyte cou ntOrdered By: Mariano Wilkins on 11-01-2022 Monocytes (Bld) [#/Vol] 0.7 10*3/uL Normal 0.0-0.8 [facility] Comment on above: Performed By: #### C MP, HS TROP, CBC ####[address] Automated eosinophil %Ordere d By: Mariano Wilkins on 11-01-2022 Eosinophils/100 WBC (Bld) 0.3 % Normal . [facility] Comment on above: Performed By: #### C MP, HS TROP, CBC ####[address] Automated eosinophil countOr dered By: Mariano Wilkins on 11-01-2022 Eosinophils (Bld) [#/Vol] 0.0 10*3/uL Normal 0.0-0.45 [facility] Comment on above: Performed By: #### C MP, HS TROP, CBC ####[address] Automated erythrocytes count in urine sediment (number/area)Ordered By: Mariano Wilkins on 11-01-2022 RBC Auto (Urine sed) [#/Area] 3-4 [HPF] 0-4 [facility] Automated leukocytes count i n urine sediment (number/area)Ordered By: Mariano Wilkins on 11-01-2022 WBC Auto (Urine sed) [#/Area] 1-2 [HPF] 0-4 [facility] Automated monocyte %Ordered By: Mariano Wilkins on 11-01-2022 Monocytes/100 WBC (Bld) 13.4 % Normal . [facility] Comment on above: Performed By: #### C MP, HS TROP, CBC ####[facility] [id number] Automated neutrophil %Ordere d By: Mariano Wilkins on 11-01-2022 Neutrophils/100 WBC (Bld) 53.4 % Normal . [facility] Comment on above: Performed By: #### C MP, HS TROP, CBC ####[facility] [id number] [place] [address] Automated urine color determ inationOrdered By: Mariano Wilkins on 11-01-2022 Color (U) Yellow Normal Yellow [facility] Comment on above: Order Comment: Name Collection Type:: Clean-Voided Midstream Performed By: #### A DDONUAPLUS ####[address] Bilirubin Test strip Ql (U)O rdered By: Mariano Wilkins on 11-01-2022 Bilirubin Ql (U) Negative Negative [facility] Bilirubin.total [Mass/volume ] in Serum or PlasmaOrdered By: Mariano Wilkins on 11-01-2022 Bilirubin [Mass/Vol] 0.6 mg/dL Normal 0.3-1.0 [facility] Comment on above: Performed By: #### C MP, HS TROP, CBC ####[address] Calcium [Mass/volume] in Ser um or PlasmaOrdered By: Mariano Wilkins on 11-01-2022 Calcium [Mass/Vol] 8.7 mg/dL Normal 8.6-10.3 [facility] Comment on above: Performed By: #### C MP, HS TROP, CBC ####[place] [id number] [facility] Carbon dioxide, total [Moles /volume] in Serum or PlasmaOrdered By: Mariano Wilkins on 11-01-2022 CO2 [Moles/Vol] 29.2 mmol/L Normal 21.0-31.0 [facility] Comment on above: Performed By: #### C MP, HS TROP, CBC ####[place] [id number] [facility] Chloride [Moles/volume] in S sammy or PlasmaOrdered By: Mariano Wilkins on 11-01-2022 Chloride [Moles/Vol] 105 mmol/L Normal 98-107 [facility] Comment on above: Performed By: #### C MP, HS TROP, CBC ####[place] [id number] [facility] Complete Blood Count Auto Di ffon 11-01-2022 Mean Corpuscular HGB Conc 33.2 g/dL Normal 32.5-35.6 [facility] Comment on above: Performed By: #### C MP, HS TROP, CBC ####[place] [id number] [facility] Monocytes/100 WBC (Bld) 22.50 % High 0.00-20.00 [facility] Comment on above: Result Comment: For adults in ED, MDW > 20.0 may be associated with a higher risk of sepsis during the first 12 hrs of hospital admission Performed By: #### C MP, HS TROP, CBC ####[address] [address] [facility] NRBC% 0.3 /100{WBC} Normal 0-0.5 [facility] Comment on above: Performed By: #### C MP, HS TROP, CBC ####[address] [address] [facility] Comprehensive Metabolic Pane negro 11-01-2022 Albumin [Mass/Vol] 3.3 g/dL Low 3.5-5.7 [facility] Comment on above: Performed By: #### C MP, HS TROP, CBC ####[address] [place] [address] [facility] Creatinine Clr Calc Pharmacy 62.99 Normal [facility] Comment on above: Result Comment: PERF ORMED BY:[address] [place], [place] [phone] MEDICAL JADEN NOGUEIRA M.D. Performed By: #### C MP, HS TROP, CBC ####[address] [address] [place] GFR/1.73 sq M.predicted MDRD (S/P/Bld) [Vol rate/Area] mL/min/{1.73_m2} Normal [facility] Comment on above: Performed By: #### C MP, HS TROP, CBC ####[address] [address] [facility] Creatinine [Mass/volume] in Serum or PlasmaOrdered By: Mariano Wilkins on 11-01-2022 Creatinine [Mass/Vol] 1.16 mg/dL Normal 0.70-1.30 [facility] Comment on above: Performed By: #### C MP, HS TROP, CBC ####[address] [address] [place] Dipstick and Microscopicon 0 11-01-2022 Appearance (U) Clear Normal Clear [facility] Comment on above: Order Comment: Name Collection Type:: Clean-Voided Midstream Performed By: #### A DDONUAPLUS ####[address] [address] [facility] Bacteria,Urine None Seen Normal None Seen [facility] Comment on above: Order Comment: Name Collection Type:: Clean-Voided Midstream Performed By: #### A DDONUAPLUS ####[address] [address] [place] Bilirubin,Urine Negative Normal Negative [facility] Comment on above: Order Comment: Name Collection Type:: Clean-Voided Midstream Performed By: #### A DDONUAPLUS ####[address] [address] [facility] Glucose Ql (U) Normal Normal Normal [facility] Comment on above: Order Comment: Name Collection Type:: Clean-Voided Midstream Performed By: #### A DDONUAPLUS ####[address] [address] [facility] Hyaline Casts,Urine 0-8 Normal 0-8 [facility] Comment on above: Order Comment: Name Collection Type:: Clean-Voided Midstream Result Comment: PERF ORMED BY:[place] [address] [address] [place] [phone] MEDICAL DIRECTORANNIKA NOGUEIRA M.D. Performed By: #### A DDONUAPLUS ####[address] [address] [facility] Ketones Ql (U) Negative Normal Negative [facility] Comment on above: Order Comment: Name Collection Type:: Clean-Voided Midstream Performed By: #### A DDONUAPLUS ####[address] [address] [facility] Leukocyte esterase Test strip Ql (U) Negative Normal Negative [facility] Comment on above: Order Comment: Name Collection Type:: Clean-Voided Midstream Performed By: #### A DDONUAPLUS ####[address] [address] [facility] Nitrite,Urine Negative Normal Negative [facility] Comment on above: Order Comment: Name Collection Type:: Clean-Voided Midstream Performed By: #### A DDONUAPLUS ####[address] [address] [place] Occult Blood,Urine Negative Normal Negative [facility] Comment on above: Order Comment: Name Collection Type:: Clean-Voided Midstream Result Comment: PERF ORMED BY:[address] [place], [place] [phone] MEDICAL DIRECTORANNIKA NOGUEIRA M.D. Performed By: #### A DDONUAPLUS ####[address] [address] [place] RBC,Urine 3-4 Normal 0-4 [facility] Comment on above: Order Comment: Name Collection Type:: Clean-Voided Midstream Performed By: #### A DDONUAPLUS ####[address] Specificy [place]io,Urine 1.024 Normal 1.001-1.03 0 [facility] Comment on above: Order Comment: Name Collection Type:: Clean-Voided Midstream Performed By: #### A DDONUAPLUS ####[address] Squamous Epithelial Cell,Urine None Seen Normal 0-2 [facility] Comment on above: Order Comment: Name Collection Type:: Clean-Voided Midstream Performed By: #### A DDONUAPLUS ####[address] Urobilinogen,Urine Normal Normal Normal [facility] Comment on above: Order Comment: Name Collection Type:: Clean-Voided Midstream Performed By: #### A DDONUAPLUS ####[address] WBC,Urine 1-2 Normal 0-4 [facility] Comment on above: Order Comment: Name Collection Type:: Clean-Voided Midstream Performed By: #### A DDONUAPLUS ####[address] ECG 12 lead ECGon 11-01-2022 ECG 12 lead ECG Normal [facility] Erythrocyte distribution wid th [Ratio] by Automated countOrdered By: Mariano Wilkins on 11-01-2022 Erythrocyte distribution width (RBC) [Ratio] 14.8 % Normal 12.0-14.8 [facility] Comment on above: Performed By: #### C MP, HS TROP, CBC ####[address] Erythrocytes [#/volume] in B lood by Automated countOrdered By: Mariano Wilkins on 11-01-2022 RBC (Bld) [#/Vol] 3.84 10*6/uL Low 3.90-5.60 [facility] Comment on above: Performed By: #### C CHIQUITA, BigRep TROP, CBC ####[place] [address] [place] [id number] [facility] Glucose [Mass/volume] in Ser um or PlasmaOrdered By: Mariano Wilkins on 11-01-2022 Glucose [Mass/Vol] 93 mg/dL Normal 70-100 [facility] Comment on above: ADA recommended refe rence rangeRandom Glucose Reference Range is dependent on time and content of last meal. Glucose of more than 200 mg/dL in a nonstressed, ambulatory subject supports the diagnosis of Diabetes Mellitus. Result Comment: [place] om Glucose Reference Range is dependent on time and content of last meal. Glucose of more than 200 mg/dL in a nonstressed, ambulatory subject supports the diagnosis of Diabetes Mellitus. ADA recommended reference range Performed By: #### C CHIQUITA, HS TROP, CBC ####[address] [place] [id number] [facility] Hematocrit [Volume Fraction] of Blood by Automated countOrdered By: Mariano Wilkins on 11-01-2022 Hematocrit (Bld) [Volume fraction] 38.3 % Low 38.8-50.0 [facility] Comment on above: Performed By: #### C CHIQUITA, BigRep TROP, CBC ####[address] [place] [address] [place] [id number] [facility] Hemoglobin [Mass/volume] in BloodOrdered By: Mariano Wilkins on 11-01-2022 Hemoglobin (Bld) [Mass/Vol] 12.7 g/dL Low 13.0-17.0 [facility] Comment on above: Performed By: #### C CHIQUITA, HS TROP, CBC ####[place] [id number] [facility] Ketones Auto test strip (U) [Mass/Vol]Ordered By: Mariano Wilkins on 11-01-2022 Ketones (U) [Mass/Vol] Negative Negative [facility] - UrinalysisOrder ed By: Mariano Wilkins on 11-01-2022 Hyaline casts LM Ql (Urine sed) 0-8 [LPF] 0-8 [facility] Leukocytes [#/volume] correc michelle for nucleated erythrocytes in Blood by Automated counOrdered By: Mariano Wilkins on 11-01-2022 WBC corrected for nucl RBC Auto (Bld) [#/Vol] 5.5 10*3/uL 4.1-10.5 [facility] Leukocytes [#/volume] in Blo od by Automated countOrdered By: Mariano Wilkins on 11-01-2022 WBC (Bld) [#/Vol] 5.5 10*3/uL Normal 4.1-10.5 [facility] Comment on above: Performed By: #### C MP, HS TROP, CBC ####[address] Lymphocytes [#/volume] in Bl ood by Automated countOrdered By: Mariano Wilkins on 11-01-2022 Lymphocytes (Bld) [#/Vol] 1.8 10*3/uL Normal 1.00-4.8 [facility] Comment on above: Performed By: #### C MP, HS TROP, CBC ####[place] [id number] [facility] Lymphocytes/100 leukocytes i n Blood by Automated countOrdered By: Mariano Wilkins on 11-01-2022 Lymphocytes/100 WBC (Bld) 32.6 % Normal . [facility] Comment on above: Performed By: #### C MP, HS TROP, CBC ####[place] [id number] [facility] MCH [Entitic mass] by Automa michelle countOrdered By: Mariano Wilkins on 11-01-2022 MCH (RBC) [Entitic mass] 33.1 pg Normal 27.5-35.2 [facility] Comment on above: Performed By: #### C MP, HS TROP, CBC ####[place] [id number] [facility] MCHC Auto (RBC) [Mass/Vol]Or dered By: Mariano Wilkins on 11-01-2022 MCHC (RBC) [Mass/Vol] 33.2 g/dL 32.5-35.6 [facility] MCV [Entitic volume] by Auto mated countOrdered By: Mariano Wilkins on 11-01-2022 MCV (RBC) [Entitic vol] 99.8 fL Normal 83.5-101 [facility] Comment on above: Performed By: #### C MP, HS TROP, CBC ####[facility] [id number] Monocyte distribution width [Entitic volume] in Blood by AutomatedOrdered By: Mariano Wilkins on 11-01-2022 Monocyte distribution width Auto (Bld) [Entitic vol] 22.50 % 0.00-20.00 [facility] Comment on above: For adults in ED, MD W > 20.0 may be associated with a higher risk of sepsis during the first 12 hrs of hospital admission Neutrophils [#/volume] in Bl ood by Automated countOrdered By: Mariano Wilkins on 11-01-2022 Neutrophils (Bld) [#/Vol] 3.0 10*3/uL Normal 1.8-7.7 [facility] Comment on above: Performed By: #### C MP, HS TROP, CBC ####[facility] [id number] [place] [address] Nitrite Test strip Ql (U)Ord ered By: Mariano Wilkins on 11-01-2022 Nitrite Ql (U) Negative Negative [facility] No Panel InformationOrdered By: Mariano Wilkins on 11-01-2022 Estimated GFR (CKD-EPI) > 60.0 mL/Min [facility] Creatinine Clearance (Chem 62.99 [facility] Nucleated erythrocytes [Pres ence] in Blood by Automated countOrdered By: Mariano Wilkins on 11-01-2022 Nucleated RBC Auto Ql (Bld) 0.3 /100{WBC} 0-0.5 [facility] Platelet mean volume [Entiti c volume] in Blood by Automated countOrdered By: Mariano Wilkins on 11-01-2022 Platelet mean volume (Bld) [Entitic vol] 8.9 fL Normal 6.6-10.1 [facility] Comment on above: Performed By: #### C MP, HS TROP, CBC ####[facility] [id number] Platelets [#/volume] in Bloo d by Automated countOrdered By: Mariano Wilkins on 11-01-2022 Platelets (Bld) [#/Vol] 119 10*3/uL Low 150-450 [facility] Comment on above: Performed By: #### C CHIQUITA, HS TROP, CBC ####[place] [address] Potassium [Moles/volume] in Serum or PlasmaOrdered By: Mariano Wilkins on 11-01-2022 Potassium [Moles/Vol] 3.7 mmol/L Normal 3.5-5.1 [facility] Comment on above: Performed By: #### C MP, HS TROP, CBC ####[address] Protein [Mass/volume] in Ser um or PlasmaOrdered By: Mariano Wilkins on 11-01-2022 Protein [Mass/Vol] 6.5 g/dL Normal 6.4-8.9 [facility] Comment on above: Performed By: #### C CHIQUITA, HS TROP, CBC ####[address] Serum globulin measurement b y calculation (mass/volume)Ordered By: Mariano Wilkins on 11-01-2022 Globulin (S) [Mass/Vol] 3.2 g/dL [facility] Comment on above: Performed By: #### C CHIQUITA, HS TROP, CBC ####[address] Serum or plasma albumin/glob ulin mass ratioOrdered By: Mariano Wilkins on 11-01-2022 Albumin/Globulin [Mass ratio] 1.0 {ratio} [facility] Comment on above: Performed By: #### C MP, HS TROP, CBC ####[address] Serum or plasma anion gap de terminationOrdered By: Mariano Wilkins on 11-01-2022 Anion gap [Moles/Vol] 7.5 mmol/L Normal 6.0-15.0 [facility] Comment on above: Performed By: #### C MP, HS TROP, CBC ####[address] [place] [address] [facility] Sodium [Moles/volume] in Ser um or PlasmaOrdered By: Mariano Wilkins on 11-01-2022 Sodium [Moles/Vol] 138 mmol/L Normal 136-145 [facility] Comment on above: Performed By: #### C MP, HS TROP, CBC ####[place] [id number] [facility] Specific gravity Auto test s trip (U) [Rel density]Ordered By: Mariano Wilkins on 11-01-2022 Specific gravity (U) [Rel density] 1.024 1.001-1.03 0 [facility] Squamous epithelial cells de tection in urine sediment by light microscopyOrdered By: Mraiano Wilkins on 11-01-2022 Epithelial cells.squamous LM Ql (Urine sed) None seen [HPF] 0-2 [facility] Troponin I High Sensitivityo n 11-01-2022 Troponin I High Sensitivity 34.7 pg/mL High 0.0-20.0 [facility] Comment on above: Result Comment: PERF ORMED BY:[address] [place], [place] [phone] MEDICAL DIRECTORANNIKA NOGUEIRA M.D. Performed By: #### C MP, HS TROP, CBC ####[place] [id number] [facility] Troponin I.cardiac [Mass/vol ume] in Serum or Plasma by Detection limit <= 0.01 ng/Ordered By: Mariano Wilkins on 11-01-2022 Troponin I.cardiac DL <= 0.01 ng/mL [Mass/Vol] 34.7 pg/mL 0.0-20.0 [facility] Urea nitrogen [Mass/volume] in Serum or PlasmaOrdered By: Mariano Wilkins on 11-01-2022 Urea nitrogen [Mass/Vol] 24 mg/dL Normal 7-25 [facility] Comment on above: Performed By: #### C MP, HS TROP, CBC ####[place] [id number] [facility] Urine bacteria detection by automated methodOrdered By: Mariano Wilkins on 11-01-2022 Bacteria Auto Ql (U) None seen None Seen [facility] Urine clarity by refractomet ry automatedOrdered By: Mariano Wilkins on 11-01-2022 Clarity Refractometry automated (U) Clear Clear [facility] Urine glucose measurement by automated test strip (mass/volume)Ordered By: Mariano Wilkins on 11-01-2022 Glucose Auto test strip (U) [Mass/Vol] Normal mg/dL Normal [facility] Urine hemoglobin detection b y automated test stripOrdered By: Mariano Wilkins on 11-01-2022 Hemoglobin Auto test strip Ql (U) Negative Negative [facility] Urine leukocyte esterase det ection by automated test stripOrdered By: Mariano Wilkins on 11-01-2022 Leukocyte esterase Auto test strip Ql (U) Negative Negative [facility] Urine pH measurement by auto mated test stripOrdered By: Mariano Wilkins on 11-01-2022 pH (U) 5.5 [pH] Normal 5.0-9.0 [facility] Comment on above: Order Comment: Name Collection Type:: Clean-Voided Midstream Performed By: #### A DDONUAPLUS ####[place] [id number] [facility] Urine protein measurement by automated test strip (mass/volume)Ordered By: Mariano Wilkins on 11-01-2022 Protein (U) [Mass/Vol] 300 mg/dL High Negative [facility] Comment on above: Order Comment: Name Collection Type:: Clean-Voided Midstream Performed By: #### A DDONUAPLUS ####[place] [id number] [facility] Urobilinogen Auto test strip (U) [Mass/Vol]Ordered By: Mariano Wilkins on 11-01-2022 Urobilinogen (U) [Mass/Vol] Normal mg/dL Normal [facility] Basic Metabolic Panelon 10-14 Creatinine Clr Calc Pharmacy 57.08 Normal [facility] Comment on above: Performed By: #### B MP, CRP ####[place] [id number] [facility] GFR/1.73 sq M.predicted MDRD (S/P/Bld) [Vol rate/Area] 58.003 mL/min/{1.73_m2} Normal [facility] Comment on above: Performed By: #### B MP, CRP ####[address] [place] [address] [facility] C reactive protein [Mass/vol ume] in Serum or PlasmaOrdered By: Pedro Luis Frye on 10-30-2022 CRP [Mass/Vol] 4.6 mg/dL 0.0-0.5 [facility] C-Reactive Proteinon 023 C-Reactive Protein 4.6 mg/dL High 0.0-0.5 [facility] Comment on above: Result Comment: PERF ORMED BY:[place] [address] [place], [place] [phone] MEDICAL DIRECTORANNIKA NOGUEIRA M.D. Performed By: #### B MP, CRP ####[address] [address] [facility] Calcium [Mass/volume] in Ser um or PlasmaOrdered By: Pedro Luis Frye on 10-30-2022 Calcium [Mass/Vol] 8.8 mg/dL Normal 8.6-10.3 [facility] Comment on above: Performed By: #### B MP, CRP ####[address] [address] [facility] Carbon dioxide, total [Moles /volume] in Serum or PlasmaOrdered By: Pedro Luis Frye on 10-30-2022 CO2 [Moles/Vol] 30.1 mmol/L Normal 21.0-31.0 [facility] Comment on above: Performed By: #### B MP, CRP ####[address] [address] [place] Chloride [Moles/volume] in S sammy or PlasmaOrdered By: Pedro Luis Frye on 10-30-2022 Chloride [Moles/Vol] 106 mmol/L Normal 98-107 [facility] Comment on above: Performed By: #### B MP, CRP ####[address] [address] [place] Creatinine [Mass/volume] in Serum or PlasmaOrdered By: Pedro Luis Frye on 10-30-2022 Creatinine [Mass/Vol] 1.28 mg/dL Normal 0.70-1.30 [facility] Comment on above: Performed By: #### B CHIQUITA, CRP ####[id number] [place] [id number] [facility] Glucose [Mass/volume] in Ser um or PlasmaOrdered By: Pedro Luis Frye on 10-30-2022 Glucose [Mass/Vol] 133 mg/dL High 70-100 [facility] Comment on above: ADA recommended refe rence rangeRandom Glucose Reference Range is dependent on time and content of last meal. Glucose of more than 200 mg/dL in a nonstressed, ambulatory subject supports the diagnosis of Diabetes Mellitus. Result Comment: [place] om Glucose Reference Range is dependent on time and content of last meal. Glucose of more than 200 mg/dL in a nonstressed, ambulatory subject supports the diagnosis of Diabetes Mellitus. ADA recommended reference range Performed By: #### B CHIQUITA, CRP ####[place] [address] [place] [id number] [facility] No Panel InformationOrdered By: Pedro Luis Frye on 10-30-2022 Estimated GFR (CKD-EPI) 58.003 mL/Min [facility] Creatinine Clearance (Chem 57.08 [facility] Potassium [Moles/volume] in Serum or PlasmaOrdered By: Pedro Luis Frye on 10-30-2022 Potassium [Moles/Vol] 4.3 mmol/L Normal 3.5-5.1 [facility] Comment on above: Performed By: #### B CHIQUITA, CRP ####[place] [id number] [facility] Serum or plasma anion gap de terminationOrdered By: Pedro Luis Frye on 10-30-2022 Anion gap [Moles/Vol] 8.2 mmol/L Normal 6.0-15.0 [facility] Comment on above: Performed By: #### B CHIQUITA, CRP ####[place] [id number] [facility] Sodium [Moles/volume] in Ser um or PlasmaOrdered By: Pedro Luis Frye on 10-30-2022 Sodium [Moles/Vol] 140 mmol/L Normal 136-145 [facility] Comment on above: Performed By: #### B MP, CRP ####[place] [address] Urea nitrogen [Mass/volume] in Serum or PlasmaOrdered By: Pedro Luis Frye on 10-30-2022 Urea nitrogen [Mass/Vol] 37 mg/dL High 7-25 [facility] Comment on above: Performed By: #### B MP, CRP ####[place] [address] Automated basophil %Ordered By: Pedro Luis Frye on 10-29-2022 Basophils/100 WBC (Bld) 0.1 % Normal . [facility] Comment on above: Performed By: #### B MP, CBC ####[address] Automated basophil countOrde red By: Pedro Luis Frye on 10-29-2022 Basophils (Bld) [#/Vol] 0.0 10*3/uL Normal 0.0-0.2 [facility] Comment on above: Result Comment: PERF ORMED BY:[address] [place], [place] [phone] MEDICAL DIRECTORANNIKA NOGUEIRA M.D. Performed By: #### B MP, CBC ####[address] Automated blood monocyte cou ntOrdered By: Pedro Luis Frye on 10-29-2022 Monocytes (Bld) [#/Vol] 0.6 10*3/uL Normal 0.0-0.8 [facility] Comment on above: Performed By: #### B MP, CBC ####[address] Automated eosinophil %Ordere d By: Pedro Luis Frye on 10-29-2022 Eosinophils/100 WBC (Bld) 0.0 % Normal . [facility] Comment on above: Performed By: #### B MP, CBC ####[address] Automated eosinophil countOr dered By: Pedro Luis Frye on 10-29-2022 Eosinophils (Bld) [#/Vol] 0.0 10*3/uL Normal 0.0-0.45 [facility] Comment on above: Performed By: #### B MP, CBC ####[address] Automated monocyte %Ordered By: Pedro Luis Frye on 10-29-2022 Monocytes/100 WBC (Bld) 5.5 % Normal . [facility] Comment on above: Performed By: #### B MP, CBC ####[address] Automated neutrophil %Ordere d By: Pedro Luis Frye on 10-29-2022 Neutrophils/100 WBC (Bld) 82.6 % Normal . [facility] Comment on above: Performed By: #### B MP, CBC ####[address] Basic Metabolic Panelon 10-14 Anion gap [Moles/Vol] 12.6 mmol/L Normal 6.0-15.0 [facility] Comment on above: Performed By: #### B MP, CBC ####[place] [id number] [facility] Calcium [Mass/Vol] 8.8 mg/dL Normal 8.6-10.3 [facility] Comment on above: Performed By: #### B MP, CBC ####[place] [id number] [facility] Chloride [Moles/Vol] 103 mmol/L Normal 98-107 [facility] Comment on above: Performed By: #### B MP, CBC ####[place] [id number] [facility] CO2 [Moles/Vol] 24.7 mmol/L Normal 21.0-31.0 [facility] Comment on above: Performed By: #### B MP, CBC ####[address] [address] [facility] Creatinine [Mass/Vol] 1.74 mg/dL High 0.70-1.30 [facility] Comment on above: Performed By: #### B MP, CBC ####[address] [address] [facility] Creatinine Clr Calc Pharmacy 41.99 Normal [facility] Comment on above: Result Comment: PERF ORMED BY:[address] [place], [place] [phone] MEDICAL DIRECTORANNIKA NOGUEIRA M.D. Performed By: #### B MP, CBC ####[place] [id number] [facility] GFR/1.73 sq M.predicted MDRD (S/P/Bld) [Vol rate/Area] 40.128 mL/min/{1.73_m2} Normal [facility] Comment on above: Performed By: #### B MP, CBC ####[place] [id number] [facility] Glucose [Mass/Vol] 123 mg/dL High 70-100 [facility] Comment on above: Result Comment: [facility] Glucose Reference Range is dependent on time and content of last meal. Glucose of more than 200 mg/dL in a nonstressed, ambulatory subject supports the diagnosis of Diabetes Mellitus. ADA recommended reference range Performed By: #### B MP, CBC ####[place] [id number] [facility] Potassium [Moles/Vol] 4.3 mmol/L Normal 3.5-5.1 [facility] Comment on above: Performed By: #### B MP, CBC ####[place] [id number] [facility] Sodium [Moles/Vol] 136 mmol/L Normal 136-145 [facility] Comment on above: Performed By: #### B MP, CBC ####[place] [id number] [facility] Urea nitrogen [Mass/Vol] 44 mg/dL High 7-25 [facility] Comment on above: Performed By: #### B MP, CBC ####[address] Complete Blood Count Auto Di ffon 10-29-2022 Mean Corpuscular HGB Conc 33.5 g/dL Normal 32.5-35.6 [facility] Comment on above: Performed By: #### B MP, CBC ####[address] NRBC% 0.1 /100{WBC} Normal 0-0.5 [facility] Comment on above: Performed By: #### B MP, CBC ####[address] Erythrocyte distribution wid th [Ratio] by Automated countOrdered By: Pedro Luis Frye on 10-29-2022 Erythrocyte distribution width (RBC) [Ratio] 15.2 % High 12.0-14.8 [facility] Comment on above: Performed By: #### B MP, CBC ####[address] Erythrocytes [#/volume] in B lood by Automated countOrdered By: Pedro Luis Frye on 10-29-2022 RBC (Bld) [#/Vol] 3.97 10*6/uL Normal 3.90-5.60 [facility] Comment on above: Performed By: #### B MP, CBC ####[address] Hematocrit [Volume Fraction] of Blood by Automated countOrdered By: Pedro Luis Frye on 10-29-2022 Hematocrit (Bld) [Volume fraction] 40.2 % Normal 38.8-50.0 [facility] Comment on above: Performed By: #### B MP, CBC ####[address] Hemoglobin [Mass/volume] in BloodOrdered By: Pedro Luis Frye on 10-29-2022 Hemoglobin (Bld) [Mass/Vol] 13.5 g/dL Normal 13.0-17.0 [facility] Comment on above: Performed By: #### B MP, CBC ####[address] Leukocytes [#/volume] correc michelle for nucleated erythrocytes in Blood by Automated counOrdered By: Pedro Luis Frye on 10-29-2022 WBC corrected for nucl RBC Auto (Bld) [#/Vol] 10.2 10*3/uL 4.1-10.5 [facility] Leukocytes [#/volume] in Blo od by Automated countOrdered By: Pedro Luis Frye on 10-29-2022 WBC (Bld) [#/Vol] 10.2 10*3/uL Normal 4.1-10.5 [facility] Comment on above: Performed By: #### B MP, CBC ####[address] Lymphocytes [#/volume] in Bl ood by Automated countOrdered By: Pedro Luis Frye on 10-29-2022 Lymphocytes (Bld) [#/Vol] 1.2 10*3/uL Normal 1.00-4.8 [facility] Comment on above: Performed By: #### B MP, CBC ####[address] Lymphocytes/100 leukocytes i n Blood by Automated countOrdered By: Pedro Luis Frye on 10-29-2022 Lymphocytes/100 WBC (Bld) 11.8 % Normal . [facility] Comment on above: Performed By: #### B MP, CBC ####[place] [id number] [facility] MCH [Entitic mass] by Automa michelle countOrdered By: Pedro Luis Frye on 10-29-2022 MCH (RBC) [Entitic mass] 34.0 pg Normal 27.5-35.2 [facility] Comment on above: Performed By: #### B MP, CBC ####[place] [id number] [facility] MCHC Auto (RBC) [Mass/Vol]Or dered By: Pedro Luis Frye on 10-29-2022 MCHC (RBC) [Mass/Vol] 33.5 g/dL 32.5-35.6 [facility] MCV [Entitic volume] by Auto mated countOrdered By: Pedro Luis Frye on 10-29-2022 MCV (RBC) [Entitic vol] 101.4 fL High 83.5-101 [facility] Comment on above: Performed By: #### B MP, CBC ####[facility] [id number] Neutrophils [#/volume] in Bl ood by Automated countOrdered By: Pedro Luis Frye on 10-29-2022 Neutrophils (Bld) [#/Vol] 8.4 10*3/uL High 1.8-7.7 [facility] Comment on above: Performed By: #### B MP, CBC ####[address] Nucleated erythrocytes [Pres ence] in Blood by Automated countOrdered By: Pedro Luis Frye on 10-29-2022 Nucleated RBC Auto Ql (Bld) 0.1 /100{WBC} 0-0.5 [facility] Platelet mean volume [Entiti c volume] in Blood by Automated countOrdered By: Pedro Luis Frye on 10-29-2022 Platelet mean volume (Bld) [Entitic vol] 10.3 fL High 6.6-10.1 [facility] Comment on above: Performed By: #### B MP, CBC ####[facility] [id number] [address] Platelets [#/volume] in Bloo d by Automated countOrdered By: Pedro Luis Frye on 10-29-2022 Platelets (Bld) [#/Vol] 113 10*3/uL Low 150-450 [facility] Comment on above: Performed By: #### B MP, CBC ####[facility] [id number] Alanine aminotransferase [En zymatic activity/volume] in Serum or PlasmaOrdered By: Pedro Luis Frye on 10-28-2022 ALT [Catalytic activity/Vol] 20 U/L Normal 7-52 [facility] Comment on above: Order Comment: iban nelson do last Performed By: #### Yen James, CMP, CBC ####[place] [id number] [place] [id number] [facility] Albumin [Mass/volume] in Ser um or Plasma by Bromocresol green (BCG) dye binding methoOrdered By: Pedro Luis Frye on 10-28-2022 Albumin BCG dye [Mass/Vol] 2.9 g/dL 3.5-5.7 [facility] Comment on above: Delta: 3.9 on -2 Alkaline phosphatase [Enzyma tic activity/volume] in Serum or PlasmaOrdered By: Pedro Luis Frye on 10-28-2022 ALP [Catalytic activity/Vol] 66 U/L Normal 34-104 [facility] Comment on above: Order Comment: iban nelson do last Performed By: #### Yen James, CMP, CBC ####[place] [id number] [place] [id number] [facility] Aspartate aminotransferase [ Enzymatic activity/volume] in Serum or PlasmaOrdered By: Pedro Luis Frye on 10-28-2022 AST [Catalytic activity/Vol] 46 U/L High 13-39 [facility] Comment on above: Order Comment: iban nelson do last Performed By: #### Yen James, CMP, CBC ####[place] [id number] [facility] Bilirubin.total [Mass/volume ] in Serum or PlasmaOrdered By: Pedro Luis Frye on 10-28-2022 Bilirubin [Mass/Vol] 0.7 mg/dL Normal 0.3-1.0 [facility] Comment on above: Order Comment: iban nelson do last Performed By: #### Yen James, CMP, CBC ####[place] [id number] [place] [id number] [facility] Complete Blood Count Auto Di ffon 10-28-2022 Basophils (Bld) [#/Vol] 0.0 10*3/uL Normal 0.0-0.2 [facility] Comment on above: Order Comment: per r n omar do last Result Comment: PERF ORMED BY:[address] [place], [place] [id number] MEDICAL DIRECTORANNIKA NOGUEIRA M.D. Performed By: #### M G, CMP, CBC ####[address] [address] [facility] Basophils/100 WBC (Bld) 0.5 % Normal . [facility] Comment on above: Order Comment: per r n omar do last Performed By: #### M G, CMP, CBC ####[place] [id number] [facility] Eosinophils (Bld) [#/Vol] 0.2 10*3/uL Normal 0.0-0.45 [facility] Comment on above: Order Comment: per r n omar do last Performed By: #### M G, CMP, CBC ####[place] [id number] [facility] Eosinophils/100 WBC (Bld) 3.3 % Normal . [facility] Comment on above: Order Comment: per r n omar do last Performed By: #### M G, CMP, CBC ####[place] [id number] [facility] Erythrocyte distribution width (RBC) [Ratio] 15.4 % High 12.0-14.8 [facility] Comment on above: Order Comment: per r n omar do last Performed By: #### M G, CMP, CBC ####[place] [id number] [facility] Hematocrit (Bld) [Volume fraction] 36.4 % Low 38.8-50.0 [facility] Comment on above: Order Comment: per r n omar do last Performed By: #### M G, CMP, CBC ####[place] [id number] [facility] Hemoglobin (Bld) [Mass/Vol] 12.3 g/dL Low 13.0-17.0 [facility] Comment on above: Order Comment: per r n omar do last Performed By: #### M G, CMP, CBC ####[address] Lymphocytes (Bld) [#/Vol] 1.8 10*3/uL Normal 1.00-4.8 [facility] Comment on above: Order Comment: per r n omar do last Performed By: #### M G, CMP, CBC ####[place] [id number] [facility] Lymphocytes/100 WBC (Bld) 24.1 % Normal . [facility] Comment on above: Order Comment: per r n omar do last Performed By: #### M G, CMP, CBC ####[address] MCH (RBC) [Entitic mass] 34.2 pg Normal 27.5-35.2 [facility] Comment on above: Order Comment: per r n omar do last Performed By: #### M G, CMP, CBC ####[address] MCV (RBC) [Entitic vol] 101.0 fL Normal 83.5-101 [facility] Comment on above: Order Comment: per r n omar do last Performed By: #### M G, CMP, CBC ####[address] Mean Corpuscular HGB Conc 33.9 g/dL Normal 32.5-35.6 [facility] Comment on above: Order Comment: per r n omar do last Performed By: #### M G, CMP, CBC ####[address] Monocytes (Bld) [#/Vol] 0.6 10*3/uL Normal 0.0-0.8 [facility] Comment on above: Order Comment: per r n omar do last Performed By: #### M G, CMP, CBC ####[address] Monocytes/100 WBC (Bld) 7.5 % Normal . [facility] Comment on above: Order Comment: per r n omar do last Performed By: #### M G, CMP, CBC ####[place] [id number] [facility] Neutrophils (Bld) [#/Vol] 4.8 10*3/uL Normal 1.8-7.7 [facility] Comment on above: Order Comment: per r n omar do last Performed By: #### M G, CMP, CBC ####[place] [id number] [facility] Neutrophils/100 WBC (Bld) 64.6 % Normal . [facility] Comment on above: Order Comment: per r n omar do last Performed By: #### M G, CMP, CBC ####[address] NRBC% 0.1 /100{WBC} Normal 0-0.5 [facility] Comment on above: Order Comment: per r n omar do last Performed By: #### M G, CMP, CBC ####[place] [id number] [facility] Platelet mean volume (Bld) [Entitic vol] 10.0 fL Normal 6.6-10.1 [facility] Comment on above: Order Comment: per r n omar do last Performed By: #### M G, CMP, CBC ####[place] [id number] [facility] Platelets (Bld) [#/Vol] 92 10*3/uL Low 150-450 [facility] Comment on above: Order Comment: per r n omar do last Performed By: #### M G, CMP, CBC ####[place] [id number] [facility] RBC (Bld) [#/Vol] 3.60 10*6/uL Low 3.90-5.60 [facility] Comment on above: Order Comment: per r n omar do last Performed By: #### M G, CMP, CBC ####[place] [address] [place] WBC (Bld) [#/Vol] 7.4 10*3/uL Normal 4.1-10.5 [facility] Comment on above: Order Comment: per r n omar do last Performed By: #### Yen James, CMP, CBC ####[place] [id number] [facility] Comprehensive Metabolic Pane negro 10-28-2022 Albumin [Mass/Vol] 2.9 g/dL Significant change down 3.5-5.7 [facility] Comment on above: Order Comment: per r n omar do last Performed By: #### Yen James, CMP, CBC ####[address] Anion gap [Moles/Vol] 5.9 mmol/L Low 6.0-15.0 [facility] Comment on above: Order Comment: per r n omar do last Performed By: #### Yen James, CMP, CBC ####[place] [id number] [facility] Calcium [Mass/Vol] 8.0 mg/dL Low 8.6-10.3 [facility] Comment on above: Order Comment: per r n omar do last Performed By: #### Yen James, CMP, CBC ####[place] [id number] [facility] Chloride [Moles/Vol] 106 mmol/L Normal 98-107 [facility] Comment on above: Order Comment: per r n omar do last Performed By: #### Yen James, CMP, CBC ####[place] [id number] [facility] CO2 [Moles/Vol] 29.7 mmol/L Normal 21.0-31.0 [facility] Comment on above: Order Comment: per r n omar do last Performed By: #### Yen James, CMP, CBC ####[place] [id number] [facility] Creatinine [Mass/Vol] 1.80 mg/dL Significan t change up 0.70-1.30 [facility] Comment on above: Order Comment: per r n omar do last Performed By: #### M Tyree, CMP, CBC ####[place] [address] [place] [address] [facility] Creatinine Clr Calc Pharmacy 40.59 Normal [facility] Comment on above: Order Comment: per r n omar do last Performed By: #### M Tyree, CMP, CBC ####[place] [address] [place] [address] [place] GFR/1.73 sq M.predicted MDRD (S/P/Bld) [Vol rate/Area] 38.528 mL/min/{1.73_m2} Normal [facility] Comment on above: Order Comment: per r n omar do last Performed By: #### Yen James, CMP, CBC ####[place] [address] [place] [id number] [facility] Glucose [Mass/Vol] 87 mg/dL Normal 70-100 [facility] Comment on above: Order Comment: per r n omar do last Result Comment: [place] Glucose Reference Range is dependent on time and content of last meal. Glucose of more than 200 mg/dL in a nonstressed, ambulatory subject supports the diagnosis of Diabetes Mellitus. ADA recommended reference range Performed By: #### Yen James, CMP, CBC ####[place] [address] [place] [address] [facility] Potassium [Moles/Vol] 3.6 mmol/L Normal 3.5-5.1 [facility] Comment on above: Order Comment: per r n omar do last Performed By: #### Yen James, CMP, CBC ####[place] [address] [place] [address] [facility] Sodium [Moles/Vol] 138 mmol/L Normal 136-145 [facility] Comment on above: Order Comment: per r n omar do last Performed By: #### Yen James, CMP, CBC ####[place] [address] [place] [address] [facility] Urea nitrogen [Mass/Vol] 32 mg/dL High 7-25 [facility] Comment on above: Order Comment: per r n omar do last Performed By: #### Yen James, CMP, CBC ####[place] [address] [place] [address] [facility] Magnesium [Mass/volume] in S sammy or PlasmaOrdered By: Pedro Luis Frye on 10-28-2022 Magnesium [Mass/Vol] 2.2 mg/dL Normal 1.9-2.7 [facility] Comment on above: Order Comment: per ania nelson do last Result Comment: PERF ORMED BY:[address] [place], [place] [id number] MEDICAL DIRECTORANNIKA NOGUEIRA M.D. Performed By: #### M Tyree, CMP, CBC ####[place] [id number] [facility] Protein [Mass/volume] in Ser um or PlasmaOrdered By: Pedro Luis Frye on 10-28-2022 Protein [Mass/Vol] 5.8 g/dL Significant change down 6.4-8.9 [facility] Comment on above: Delta: 7.3 on -1502 Order Comment: iban nelson do last Performed By: #### Yen James, CMP, CBC ####[address] [address] [facility] Serum globulin measurement b y calculation (mass/volume)Ordered By: Pedro Luis Frye on 10-28-2022 Globulin (S) [Mass/Vol] 2.9 g/dL Normal [facility] Comment on above: Order Comment: iban nelson do last Performed By: #### M Tyree, CMP, CBC ####[address] [address] [facility] Serum or plasma albumin/glob ulin mass ratioOrdered By: Pedro Luis Frye on 10-28-2022 Albumin/Globulin [Mass ratio] 1.0 {ratio} Normal [facility] Comment on above: Order Comment: iban nelson do last Performed By: #### M G, CMP, CBC ####[address] [address] [facility] Basic Metabolic Panelon 09-1 4-2023 Anion gap [Moles/Vol] Not performed Normal 6.0-15.0 [facility] Comment on above: Performed By: #### M Tyree, CBC, BMP ####[address] Calcium [Mass/Vol] 8.4 mg/dL Low 8.6-10.3 [facility] Comment on above: Performed By: #### M Tyree, CBC, BMP ####[address] Chloride [Moles/Vol] 103 mmol/L Normal 98-107 [facility] Comment on above: Performed By: #### M Tyree CBC, BMP ####[address] CO2 [Moles/Vol] 27.3 mmol/L Normal 21.0-31.0 [facility] Comment on above: Performed By: #### Yen James CBC, BMP ####[address] Creatinine [Mass/Vol] 1.30 mg/dL Normal 0.70-1.30 [facility] Comment on above: Performed By: #### Yen James CBC, BMP ####[address] Creatinine Clr Calc Pharmacy 56.21 Normal [facility] Comment on above: Performed By: #### Yen James CBC, BMP ####[address] GFR/1.73 sq M.predicted MDRD (S/P/Bld) [Vol rate/Area] 56.934 mL/min/{1.73_m2} Normal [facility] Comment on above: Performed By: #### Yen James CBC, BMP ####[address] Glucose [Mass/Vol] 104 mg/dL High 70-100 [facility] Comment on above: Result Comment: [facility] Glucose Reference Range is dependent on time and content of last meal. Glucose of more than 200 mg/dL in a nonstressed, ambulatory subject supports the diagnosis of Diabetes Mellitus. ADA recommended reference range Performed By: #### M G, CBC, BMP ####[address] Potassium Normal 3.5-5.1 [facility] Comment on above: Result Comment: Spec imen hemolyzed, redraw requested Performed By: #### M G, CBC, BMP ####[address] Sodium [Moles/Vol] 135 mmol/L Low 136-145 [facility] Comment on above: Performed By: #### M G, CBC, BMP ####[address] Urea nitrogen [Mass/Vol] 20 mg/dL Normal 7-25 [facility] Comment on above: Performed By: #### M G, CBC, BMP ####[address] Complete Blood Count Auto Di ffon 10-27-2022 Basophils (Bld) [#/Vol] 0.0 10*3/uL Normal 0.0-0.2 [facility] Comment on above: Result Comment: PERF ORMED BY:[address] [place], [place] [phone] MEDICAL DIRECTORANNIKA NOGUEIRA M.D. Performed By: #### M G, CBC, BMP ####[address] Basophils/100 WBC (Bld) 0.3 % Normal . [facility] Comment on above: Performed By: #### M G, CBC, BMP ####[address] Eosinophils (Bld) [#/Vol] 0.0 10*3/uL Normal 0.0-0.45 [facility] Comment on above: Performed By: #### M G, CBC, BMP ####[address] Eosinophils/100 WBC (Bld) 0.1 % Normal . [facility] Comment on above: Performed By: #### M G, CBC, BMP ####[address] Erythrocyte distribution width (RBC) [Ratio] 14.8 % Normal 12.0-14.8 [facility] Comment on above: Performed By: #### M G, CBC, BMP ####[address] Hematocrit (Bld) [Volume fraction] 39.1 % Normal 38.8-50.0 [facility] Comment on above: Performed By: #### M G, CBC, BMP ####[address] Hemoglobin (Bld) [Mass/Vol] 13.2 g/dL Normal 13.0-17.0 [facility] Comment on above: Performed By: #### M G, CBC, BMP ####[address] Lymphocytes (Bld) [#/Vol] 1.6 10*3/uL Normal 1.00-4.8 [facility] Comment on above: Performed By: #### M G, CBC, BMP ####[address] Lymphocytes/100 WBC (Bld) 13.1 % Normal . [facility] Comment on above: Performed By: #### M G, CBC, BMP ####[address] MCH (RBC) [Entitic mass] 33.8 pg Normal 27.5-35.2 [facility] Comment on above: Performed By: #### M G, CBC, BMP ####[address] MCV (RBC) [Entitic vol] 99.9 fL Normal 83.5-101 [facility] Comment on above: Performed By: #### M G, CBC, BMP ####[place] [address] [place] Mean Corpuscular HGB Conc 33.8 g/dL Normal 32.5-35.6 [facility] Comment on above: Performed By: #### M G, CBC, BMP ####[address] Monocytes (Bld) [#/Vol] 1.5 10*3/uL High 0.0-0.8 [facility] Comment on above: Performed By: #### M G, CBC, BMP ####[address] Monocytes/100 WBC (Bld) 12.9 % Normal . [facility] Comment on above: Performed By: #### Yen G, CBC, BMP ####[address] Neutrophils (Bld) [#/Vol] 8.7 10*3/uL High 1.8-7.7 [facility] Comment on above: Performed By: #### Yen G, CBC, BMP ####[address] Neutrophils/100 WBC (Bld) 73.6 % Normal . [facility] Comment on above: Performed By: #### Yen James, CBC, BMP ####[address] NRBC% 0.1 /100{WBC} Normal 0-0.5 [facility] Comment on above: Performed By: #### M G, CBC, BMP ####[address] Platelet mean volume (Bld) [Entitic vol] 9.7 fL Normal 6.6-10.1 [facility] Comment on above: Performed By: #### Yen G, CBC, BMP ####[address] Platelets (Bld) [#/Vol] 103 10*3/uL Low 150-450 [facility] Comment on above: Performed By: #### Yen G, CBC, BMP ####[address] [place] [address] [facility] RBC (Bld) [#/Vol] 3.91 10*6/uL Normal 3.90-5.60 [facility] Comment on above: Performed By: #### M G, CBC, BMP ####[address] [place] [address] [facility] WBC (Bld) [#/Vol] 11.9 10*3/uL High 4.1-10.5 [facility] Comment on above: Performed By: #### M G, CBC, BMP ####[address] [place] [address] [facility] Magnesiumon 10-27-2022 Magnesium [Mass/Vol] 1.5 mg/dL Low 1.9-2.7 [facility] Comment on above: Result Comment: PERF ORMED BY:[address] [place], [place] [phone] MEDICAL DIRECTORANNIKA NOGUEIRA M.D. Performed By: #### M G, CBC, BMP ####[address] [address] [facility] Redraw Potassiumon 3 Potassium [Moles/Vol] 3.8 mmol/L Normal 3.5-5.1 [facility] Comment on above: Result Comment: PERF ORMED BY:[address] [place] [place], [place] [phone] MEDICAL DIRECTORANNIKA NOGUEIRA M.D. Performed By: #### R EDRAW K, URIC ####[address] [address] [facility] Urate [Mass/volume] in Serum or PlasmaOrdered By: Siddhartha Chino on 10-27-2022 Urate [Mass/Vol] 4.6 mg/dL Normal 4.4-7.6 [facility] Comment on above: Result Comment: PERF ORMED BY:[address] [place], [place] [id number] MEDICAL DIRECTORANNIKA NOGUEIRA M.D. Performed By: #### R TIM SAPP ####[address] [place] [id number] [facility] Activated partial thrombopla stin time (aPTT) in platelet poor plasma by coagulation aOrdered By: Edilberto Wilkerson on 10-26-2022 aPTT Coag (PPP) [Time] 29.5 s 25.1-36.5 [facility] Comment on above: A hematocrit value g reater than 55% may lead to inaccurate results in coagulation testing. Patients having hematocrit values >55% require a special collection tube for coagulation studies. Please contact the laboratory at [phone] for redraw instructions. Alanine aminotransferase [En zymatic activity/volume] in Serum or PlasmaOrdered By: Edilberto Wilkerson on 10-26-2022 ALT [Catalytic activity/Vol] 17 U/L Normal 7-52 [facility] Comment on above: Order Comment: RN No tified AB [id number] Performed By: #### C MP, HS TROP, PTT, ETOH, CK, CBC, PT ####[facility] [id number] [place] [id number] [facility] Albumin [Mass/volume] in Ser um or Plasma by Bromocresol green (BCG) dye binding methoOrdered By: Edilberto Wilkerson on 10-26-2022 Albumin BCG dye [Mass/Vol] 3.9 g/dL 3.5-5.7 [facility] Alkaline phosphatase [Enzyma tic activity/volume] in Serum or PlasmaOrdered By: Edilberto Wilkerson on 10-26-2022 ALP [Catalytic activity/Vol] 79 U/L Normal 34-104 [facility] Comment on above: Order Comment: RN No tified AB 1433 Performed By: #### C MP, HS TROP, PTT, ETOH, CK, CBC, PT ####[place] [address] [place] [id number] [facility] Amphetamine Screen Ql (U)Ord ered By: Edilberto Wilkerson on 10-26-2022 Amphetamines Ql (U) Negative Negative [facility] Aspartate aminotransferase [ Enzymatic activity/volume] in Serum or PlasmaOrdered By: Edilberto Wilkerson on 10-26-2022 AST [Catalytic activity/Vol] 42 U/L High 13-39 [facility] Comment on above: Order Comment: RN No tified AB 1433 Performed By: #### C MP, HS TROP, PTT, ETOH, CK, CBC, PT ####[place] [address] [place] [id number] [facility] Automated basophil %Ordered By: Edilberto Wilkerson on 10-26-2022 Basophils/100 WBC (Bld) 0.6 % Normal . [facility] Comment on above: Order Comment: RN No tified AB 1433 Performed By: #### C MP, HS TROP, PTT, ETOH, CK, CBC, PT ####[place] [id number] [facility] Automated basophil countOrde red By: Edilberto Wilkerson on 10-26-2022 Basophils (Bld) [#/Vol] 0.1 10*3/uL Normal 0.0-0.2 [facility] Comment on above: Order Comment: RN No tified AB 1433 Result Comment: PERF ORMED BY:[address] [place], [place] [phone] MEDICAL DIRECTORANNIKA NOGUEIRA M.D. Performed By: #### C MP, HS TROP, PTT, ETOH, CK, CBC, PT ####[place] [id number] [facility] Automated blood monocyte cou ntOrdered By: Edilberto Wilkerson on 10-26-2022 Monocytes (Bld) [#/Vol] 1.0 10*3/uL High 0.0-0.8 [facility] Comment on above: Order Comment: RN No tified AB 1433 Performed By: #### C MP, HS TROP, PTT, ETOH, CK, CBC, PT ####[place] [id number] [facility] Automated eosinophil %Ordere d By: Edilberto Wilkerson on 10-26-2022 Eosinophils/100 WBC (Bld) 1.0 % Normal . [facility] Comment on above: Order Comment: RN No tified AB 1433 Performed By: #### C MP, HS TROP, PTT, ETOH, CK, CBC, PT ####[facility] [place] [address] [facility] Automated eosinophil countOr dered By: Edilbertomathew Wilkerson on 10-26-2022 Eosinophils (Bld) [#/Vol] 0.1 10*3/uL Normal 0.0-0.45 [facility] Comment on above: Order Comment: RN No tified AB 1433 Performed By: #### C MP, HS TROP, PTT, ETOH, CK, CBC, PT ####[place] [address] [place] [id number] [facility] Automated erythrocytes count in urine sediment (number/area)Ordered By: Edilberto Wilkerson on 10-26-2022 RBC Auto (Urine sed) [#/Area] 1-2 [HPF] 0-4 [facility] Automated leukocytes count i n urine sediment (number/area)Ordered By: Edilberto Wilkerson on 10-26-2022 WBC Auto (Urine sed) [#/Area] 10-19 [HPF] 0-4 [facility] Automated monocyte %Ordered By: Edilberto Wilkerson on 10-26-2022 Monocytes/100 WBC (Bld) 11.9 % Normal . [facility] Comment on above: Order Comment: RN No tified AB 1433 Performed By: #### C MP, HS TROP, PTT, ETOH, CK, CBC, PT ####[place] [address] [place] [phone] [facility] Automated neutrophil %Ordere d By: Edilberto Wilkerson on 10-26-2022 Neutrophils/100 WBC (Bld) 67.7 % Normal . [facility] Comment on above: Order Comment: RN No tified AB 1433 Performed By: #### C MP, HS TROP, PTT, ETOH, CK, CBC, PT ####[place] [address] [place] [phone] [facility] Automated urine color determ inationOrdered By: Edilberto Wilkerson on 10-26-2022 Color (U) Yellow Normal Yellow [facility] Comment on above: Order Comment: Name Collection Type:: Clean-Voided Midstream Performed By: #### A DDONUAPLUS, URDS ####[place] [id number] [facility] Barbiturates [Presence] in U rine by Screen methodOrdered By: Edilberto Wilkerson on 10-26-2022 Barbiturates Screen Ql (U) Negative Negative [facility] Benzodiazepines Screen Ql (U )Ordered By: Edilberto Wilkerson on 10-26-2022 Benzodiazepines Ql (U) Negative Negative [facility] Benzoylecgonine [Presence] i n Urine by Screen methodOrdered By: Edilberto Wilkerson on 10-26-2022 Benzoylecgonine Screen Ql (U) Negative Negative [facility] Bilirubin Test strip Ql (U)O rdered By: Edilberto Wilkerson on 10-26-2022 Bilirubin Ql (U) Negative Negative [facility] Bilirubin.total [Mass/volume ] in Serum or PlasmaOrdered By: Edilberto Wilkerson on 10-26-2022 Bilirubin [Mass/Vol] 1.4 mg/dL High 0.3-1.0 [facility] Comment on above: Samples from patient s who have taken Naproxen have shown spurious elevation in Total Bilirubin levels. A metabolite of Naproxen, O-desmethylnaproxen, has been shown to interfere with the Jendrassik-Grof method for measuring Total Bilirubin. Order Comment: LAVELL Díaz tified AB 1433 Result Comment: Samp les from patients who have taken Naproxen have shown spurious elevation in Total Bilirubin levels. A metabolite of Naproxen, O-desmethylnaproxen, has been shown to interfere with the Jendrassik-Grof method for measuring Total Bilirubin. Performed By: #### C MP, HS TROP, PTT, ETOH, CK, CBC, PT ####[facility] [place] [address] [facility] C reactive protein [Mass/vol ume] in Serum or PlasmaOrdered By: Hilary Tolliver on 10-26-2022 CRP [Mass/Vol] 8.3 mg/dL 0.0-0.5 [facility] C-Reactive Proteinon 023 C-Reactive Protein 8.3 mg/dL High 0.0-0.5 [facility] Comment on above: Result Comment: PERF ORMED BY:[place] [address] [place] [phone] MEDICAL DIRECTORANNIKA NOGUEIRA M.D. Performed By: #### E SR, CRP ####[place] [address] [place] [phone] [facility] CT cervical spine wo conon 0 10-26-2022 CT cervical spine wo con Normal [facility] Calcium [Mass/volume] in Ser um or PlasmaOrdered By: Edilberto Wilkerson on 10-26-2022 Calcium [Mass/Vol] 8.6 mg/dL Normal 8.6-10.3 [facility] Comment on above: Order Comment: RN No tified AB 1433 Performed By: #### C MP, HS TROP, PTT, ETOH, CK, CBC, PT ####[facility] [id number] [place] [phone] [facility] Cannabinoids [Presence] in U rine by Screen methodOrdered By: Edilberto Wilkerson on 10-26-2022 Cannabinoids Screen Ql (U) Negative Negative [facility] Comment on above: These are unconfirme d results and should not be used for legal purposes. Drug Cut-Off Concentration: AMPH 1000 ng/mL MAYDA 200 ng/mL ISABEL 200 ng/mL COCM 300 ng/mL OP 300 ng/mL PCP 25 ng/mL THC 20 ng/mL Carbon dioxide, total [Moles /volume] in Serum or PlasmaOrdered By: Edilberto Wilkerson on 10-26-2022 CO2 [Moles/Vol] 26.6 mmol/L Normal 21.0-31.0 [facility] Comment on above: Order Comment: RN No tified AB 1433 Performed By: #### C MP, HS TROP, PTT, ETOH, CK, CBC, PT ####[facility] [id number] [place] [address] [facility] Chloride [Moles/volume] in S sammy or PlasmaOrdered By: Edilberto Wilkerson on 10-26-2022 Chloride [Moles/Vol] 100 mmol/L Normal 98-107 [facility] Comment on above: Order Comment: RN No tified AB 1433 Performed By: #### C MP, HS TROP, PTT, ETOH, CK, CBC, PT ####[place] [id number] [facility] Complete Blood Count Auto Di ffon 10-26-2022 Mean Corpuscular HGB Conc 33.5 g/dL Normal 32.5-35.6 [facility] Comment on above: Order Comment: RN Bre severianoied AB 1433 Performed By: #### C MP, HS TROP, PTT, ETOH, CK, CBC, PT ####[address] Monocytes/100 WBC (Bld) 20.58 % High 0.00-20.00 [facility] Comment on above: Order Comment: RN No severianoied AB 1433 Result Comment: For adults in ED, MDW > 20.0 may be associated with a higher risk of sepsis during the first 12 hrs of hospital admission Performed By: #### C MP, HS TROP, PTT, ETOH, CK, CBC, PT ####[address] NRBC% 0.1 /100{WBC} Normal 0-0.5 [facility] Comment on above: Order Comment: RN No severianovinay AB 1433 Performed By: #### C MP, HS TROP, PTT, ETOH, CK, CBC, PT ####[place] [id number] [facility] Comprehensive Metabolic Pane negro 10-26-2022 Albumin [Mass/Vol] 3.9 g/dL Normal 3.5-5.7 [facility] Comment on above: Order Comment: RN Bre severianoied AB 1433 Performed By: #### C MP, HS TROP, PTT, ETOH, CK, CBC, PT ####[address] Creatinine Clr Calc Pharmacy 52.57 Normal [facility] Comment on above: Order Comment: RN No severianoied AB 1433 Result Comment: PERF ORMED BY:[address] [place], [place] [phone] MEDICAL JADEN NOGUEIRA M.D. Performed By: #### C MP, HS TROP, PTT, ETOH, CK, CBC, PT ####[place] [address] [place] [address] [facility] GFR/1.73 sq M.predicted MDRD (S/P/Bld) [Vol rate/Area] 52.539 mL/min/{1.73_m2} Normal [facility] Comment on above: Order Comment: LAVELL Bre khanna AB 1433 Performed By: #### C MP, HS TROP, PTT, ETOH, CK, CBC, PT ####[address] [address] [facility] Creatine kinase [Enzymatic a ctivity/volume] in Serum or PlasmaOrdered By: Edilberto Wilkerson on 10-26-2022 CK [Catalytic activity/Vol] 586 U/L High 30-223 [facility] Comment on above: Order Comment: RN Bre MADRIGAL 1433 Performed By: #### C MP, HS TROP, PTT, ETOH, CK, CBC, PT ####[address] [address] [facility] Creatinine [Mass/volume] in Serum or PlasmaOrdered By: Edilberto Wilkerson on 10-26-2022 Creatinine [Mass/Vol] 1.39 mg/dL High 0.70-1.30 [facility] Comment on above: Order Comment: LAVELL Bre MADRIGAL 1433 Performed By: #### C MP, HS TROP, PTT, ETOH, CK, CBC, PT ####[address] [address] [place] Dipstick and Microscopicon 0 10-26-2022 Appearance (U) Clear Normal Clear [facility] Comment on above: Order Comment: Name Collection Type:: Clean-Voided Midstream Performed By: #### A DDONUAPLUS, URDS ####[address] [address] [facility] Bacteria,Urine None Seen Normal None Seen [facility] Comment on above: Order Comment: Name Collection Type:: Clean-Voided Midstream Performed By: #### A DDONUAPLUS, URDS ####[address] [address] [facility] Bilirubin,Urine Negative Normal Negative [facility] Comment on above: Order Comment: Name Collection Type:: Clean-Voided Midstream Performed By: #### A DDONUAPLUS, URDS ####[address] [address] [facility] Glucose Ql (U) Normal Normal Normal [facility] Comment on above: Order Comment: Name Collection Type:: Clean-Voided Midstream Performed By: #### A DDONUAPLUS, URDS ####[address] [address] [facility] Hyaline Casts,Urine 0-8 Normal 0-8 [facility] Comment on above: Order Comment: Name Collection Type:: Clean-Voided Midstream Result Comment: PERF ORMED BY:[address] [place], [place] [phone] MEDICAL DIRECTORANNIKA NOGUEIRA M.D. Performed By: #### A DDONUAPLUS, URDS ####[address] [address] [facility] Ketones Ql (U) Negative Normal Negative [facility] Comment on above: Order Comment: Name Collection Type:: Clean-Voided Midstream Performed By: #### A DDONUAPLUS, URDS ####[address] [address] [facility] Leukocyte esterase Test strip Ql (U) Negative Normal Negative [facility] Comment on above: Order Comment: Name Collection Type:: Clean-Voided Midstream Performed By: #### A DDONUAPLUS, URDS ####[address] [address] [facility] Nitrite,Urine Negative Normal Negative [facility] Comment on above: Order Comment: Name Collection Type:: Clean-Voided Midstream Performed By: #### A DDONUAPLUS, URDS ####[address] [address] [facility] Occult Blood,Urine 1+ High Negative [facility] Comment on above: Order Comment: Name Collection Type:: Clean-Voided Midstream Result Comment: PERF ORMED BY:[address] [place], [place] [phone] MEDICAL DIRECTORANNIKA NOGUEIRA M.D. Performed By: #### A DDONUAPLUS, URDS ####[place] [address] [place] [address] [facility] RBC,Urine 1-2 Normal 0-4 [facility] Comment on above: Order Comment: Name Collection Type:: Clean-Voided Midstream Performed By: #### A DDONUAPLUS, URDS ####[place] [id number] [facility] Specificy Clio,Urine 1.016 Normal 1.001-1.03 0 [facility] Comment on above: Order Comment: Name Collection Type:: Clean-Voided Midstream Performed By: #### A DDONUAPLUS, URDS ####[place] [id number] [facility] Squamous Epithelial Cell,Urine None Seen Normal 0-2 [facility] Comment on above: Order Comment: Name Collection Type:: Clean-Voided Midstream Performed By: #### A DDONUAPLUS, URDS ####[place] [id number] [facility] Urobilinogen,Urine Normal Normal Normal [facility] Comment on above: Order Comment: Name Collection Type:: Clean-Voided Midstream Performed By: #### A DDONUAPLUS, URDS ####[place] [id number] [facility] WBC,Urine 10-19 High 0-4 [facility] Comment on above: Order Comment: Name Collection Type:: Clean-Voided Midstream Performed By: #### A DDONUAPLUS, URDS ####[place] [id number] [facility] Drug Screen,Urineon 10-27-19 23 Amphetamine Screen,Urine Negative Normal Negative [facility] Comment on above: Performed By: #### A DDONUAPLUS, URDS ####[place] [id number] [facility] Barbiturate Screen,Urine Negative Normal Negative [facility] Comment on above: Performed By: #### A DDONUAPLUS, URDS ####[place] [id number] [facility] Benzodiazepines Screen,Urine Negative Normal Negative [facility] Comment on above: Performed By: #### A DDONUAPLUS, URDS ####[place] [id number] [facility] Cannabinoid Screen,Urine Negative Normal Negative [facility] Comment on above: Result Comment: Thes e are unconfirmed results and should not be used for legal purposes. Drug Cut-Off Concentration: AMPH 1000 ng/mL MAYDA 200 ng/mL ISABEL 200 ng/mL COCM 300 ng/mL OP 300 ng/mL PCP 25 ng/mL THC 20 ng/mLPERFORMED BY:[place] [address] [place], [place] [phone] MEDICAL DIRECTORANNIKA NOGUEIRA M.D. Performed By: #### A DDONUAPLUS, URDS ####[address] Cocaine Screen,Urine Negative Normal Negative [facility] Comment on above: Performed By: #### A DDONUAPLUS, URDS ####[address] Opiate Screen,Urine Positive High Negative [facility] Comment on above: Performed By: #### A DDONUAPLUS, URDS ####[address] Phencyclidine Screen,Urine Negative Normal Negative [facility] Comment on above: Performed By: #### A DDONUAPLUS, URDS ####[place] [id number] [facility] ECG 12 lead ECGon 10-26-2022 ECG 12 lead ECG Normal [facility] Erythrocyte Sedimentation Ra sung 10-26-2022 ESR (Bld) [Velocity] 47 mm/h High 0-19 [facility] Comment on above: Result Comment: PERF ORMED BY:[place] [address] [place], [place] [phone] MEDICAL DIRECTORANNIKA NOGUEIRA M.D. Performed By: #### E SR, CRP ####[place] [address] [place] [id number] [facility] Erythrocyte distribution wid th [Ratio] by Automated countOrdered By: Edilberto Wilkerson on 10-26-2022 Erythrocyte distribution width (RBC) [Ratio] 14.7 % Normal 12.0-14.8 [facility] Comment on above: Order Comment: RN No tified AB 1433 Performed By: #### C MP, HS TROP, PTT, ETOH, CK, CBC, PT ####[place] [address] [place] [address] [facility] Erythrocyte sedimentation ra te by Photometric methodOrdered By: Hilary Tolliver on 10-26-2022 ESR Photometric method (Bld) [Velocity] 47 mm/hr 0-19 [facility] Erythrocytes [#/volume] in B lood by Automated countOrdered By: Edilberto Wilkerson on 10-26-2022 RBC (Bld) [#/Vol] 3.90 10*6/uL Normal 3.90-5.60 [facility] Comment on above: Order Comment: RN No tified AB 1433 Performed By: #### C MP, HS TROP, PTT, ETOH, CK, CBC, PT ####[place] [address] [place] [address] [facility] Ethanol [Mass/volume] in Ser um or PlasmaOrdered By: Edilberto Wilkerson on 10-26-2022 Ethanol [Mass/Vol] mg/dL Normal [facility] Comment on above: Order Comment: RN No tified AB 1433 Performed By: #### C MP, HS TROP, PTT, ETOH, CK, CBC, PT ####[address] [address] [facility] Ethanol [Mass/Vol] TNP [facility] Comment on above: Test not performed Ethyl Alcohol Profileon 10-14 Percent Ethanol Not performed Normal [facility] Comment on above: Order Comment: RN No tified AB 1433 Result Comment: PERF ORMED BY:[address] [place], [place] [phone] MEDICAL DIRECTORANNIKA NOGUEIRA M.D. Performed By: #### C MP, HS TROP, PTT, ETOH, CK, CBC, PT ####[place] [place] [address] [facility] Glucose [Mass/volume] in Ser um or PlasmaOrdered By: Edilberto Wilkerson on 10-26-2022 Glucose [Mass/Vol] 102 mg/dL High 70-100 [facility] Comment on above: ADA recommended refe rence rangeRandom Glucose Reference Range is dependent on time and content of last meal. Glucose of more than 200 mg/dL in a nonstressed, ambulatory subject supports the diagnosis of Diabetes Mellitus. Order Comment: LAVELL Díaz tified AB 143 Result Comment: [place] om Glucose Reference Range is dependent on time and content of last meal. Glucose of more than 200 mg/dL in a nonstressed, ambulatory subject supports the diagnosis of Diabetes Mellitus. ADA recommended reference range Performed By: #### C MP, HS TROP, PTT, ETOH, CK, CBC, PT ####[place] [place] [address] [facility] Hematocrit [Volume Fraction] of Blood by Automated countOrdered By: Edilberto Wilkerson on 10-26-2022 Hematocrit (Bld) [Volume fraction] 39.2 % Normal 38.8-50.0 [facility] Comment on above: Order Comment: LAVELL Díaz tified AB 1433 Performed By: #### C MP, HS TROP, PTT, ETOH, CK, CBC, PT ####[place] [place] [address] [facility] Hemoglobin [Mass/volume] in BloodOrdered By: Edilberto Wilkerson on 10-26-2022 Hemoglobin (Bld) [Mass/Vol] 13.1 g/dL Normal 13.0-17.0 [facility] Comment on above: Order Comment: LAVELL No tified AB 1433 Performed By: #### C MP, HS TROP, PTT, ETOH, CK, CBC, PT ####[place] [place] [address] [facility] INR in Platelet poor plasma by Coagulation assayOrdered By: Edilberto Wilkerson on 10-26-2022 INR Coag (PPP) [Relative time] 1.2 {INR} Normal [facility] Comment on above: INR Therapeutic Rang e A) Pre- and Peroperative OAT started two weeks before surgery. NOT HIP SURGERY: 1.5 - 2.5 HIP SURGERY: 2 - 3B) Primary and secondary prevention of venous THROMBOSIS: 2 - 3C) Active venous thrombosis, pulmonary embolismand prevention of recurrent venous thrombosis: 2 - 3D) Prevention of arterial thromboembolismincluding patients with mechanical heart valves: 3 - 4.5 Order Comment: RN No tified AB 1433 Result Comment: INR Therapeutic Range A) Pre- and Peroperative OAT started two weeks before surgery. NOT HIP SURGERY: 1.5 - 2.5 HIP SURGERY: 2 - 3 B) Primary and secondary prevention of venous THROMBOSIS: 2 - 3 C) Active venous thrombosis, pulmonary embolism and prevention of recurrent venous thrombosis: 2 - 3 D) Prevention of arterial thromboembolism including patients with mechanical heart valves: 3 - 4.5 Performed By: #### C MP, HS TROP, PTT, ETOH, CK, CBC, PT ####[facility] [id number] Ketones Auto test strip (U) [Mass/Vol]Ordered By: Edilberto Wilkerson on 10-26-2022 Ketones (U) [Mass/Vol] Negative Negative [facility] - UrinalysisOrder ed By: Edilberto Wilkerson on 10-26-2022 Hyaline casts LM Ql (Urine sed) 0-8 [LPF] 0-8 [facility] Leukocytes [#/volume] correc michelle for nucleated erythrocytes in Blood by Automated counOrdered By: Edilberto Wilkerson on 10-26-2022 WBC corrected for nucl RBC Auto (Bld) [#/Vol] 8.5 10*3/uL 4.1-10.5 [facility] Leukocytes [#/volume] in Blo od by Automated countOrdered By: Edilberto Wilkerson on 10-26-2022 WBC (Bld) [#/Vol] 8.5 10*3/uL Normal 4.1-10.5 [facility] Comment on above: Order Comment: LAVELL No tified AB 1433 Performed By: #### C MP, HS TROP, PTT, ETOH, CK, CBC, PT ####[place] [address] [place] [phone] [facility] Lymphocytes [#/volume] in Bl ood by Automated countOrdered By: Edilberto Wilkerson on 10-26-2022 Lymphocytes (Bld) [#/Vol] 1.6 10*3/uL Normal 1.00-4.8 [facility] Comment on above: Order Comment: RN No tified AB 1433 Performed By: #### C MP, HS TROP, PTT, ETOH, CK, CBC, PT ####[place] [id number] [facility] Lymphocytes/100 leukocytes i n Blood by Automated countOrdered By: Edilberto Wilkerson on 10-26-2022 Lymphocytes/100 WBC (Bld) 18.8 % Normal . [facility] Comment on above: Order Comment: RN Bre severianoied AB 1433 Performed By: #### C MP, HS TROP, PTT, ETOH, CK, CBC, PT ####[place] [id number] [facility] MCH [Entitic mass] by Automa michelle countOrdered By: Edilberto Wilkerson on 10-26-2022 MCH (RBC) [Entitic mass] 33.7 pg Normal 27.5-35.2 [facility] Comment on above: Order Comment: RN No tified AB 1433 Performed By: #### C MP, HS TROP, PTT, ETOH, CK, CBC, PT ####[place] [id number] [facility] MCHC Auto (RBC) [Mass/Vol]Or dered By: Edilberto Wilkerson on 10-26-2022 MCHC (RBC) [Mass/Vol] 33.5 g/dL 32.5-35.6 [facility] MCV [Entitic volume] by Auto mated countOrdered By: Edilberto Wilkerson on 10-26-2022 MCV (RBC) [Entitic vol] 100.6 fL Normal 83.5-101 [facility] Comment on above: Order Comment: RN No tified AB 1433 Performed By: #### C MP, HS TROP, PTT, ETOH, CK, CBC, PT ####[place] [id number] [facility] Monocyte distribution width [Entitic volume] in Blood by AutomatedOrdered By: Edilberto Wilkerson on 10-26-2022 Monocyte distribution width Auto (Bld) [Entitic vol] 20.58 % 0.00-20.00 [facility] Comment on above: For adults in ED, MD W > 20.0 may be associated with a higher risk of sepsis during the first 12 hrs of hospital admission Neutrophils [#/volume] in Bl ood by Automated countOrdered By: Edilberto Wilkerson on 10-26-2022 Neutrophils (Bld) [#/Vol] 5.8 10*3/uL Normal 1.8-7.7 [facility] Comment on above: Order Comment: RN No tified AB 1433 Performed By: #### C MP, HS TROP, PTT, ETOH, CK, CBC, PT ####[facility] [id number] [place] [address] [facility] Nitrite Test strip Ql (U)Ord ered By: Edilberto Wilkerson on 10-26-2022 Nitrite Ql (U) Negative Negative [facility] No Panel InformationOrdered By: Edilberto Wilkerson on 10-26-2022 Estimated GFR (CKD-EPI) 52.539 mL/Min [facility] Creatinine Clearance (Chem 52.57 [facility] Nucleated erythrocytes [Pres ence] in Blood by Automated countOrdered By: Edilberto Wilkerson on 10-26-2022 Nucleated RBC Auto Ql (Bld) 0.1 /100{WBC} 0-0.5 [facility] Opiates [Presence] in Urine by Screen methodOrdered By: Edilberto Wilkerson on 10-26-2022 Opiates Screen Ql (U) Positive Negative [facility] Partial Thromboplastin Timeo n 10-26-2022 aPTT Coag (Bld) [Time] 29.5 s Normal 25.1-36.5 [facility] Comment on above: Order Comment: RN No tified AB 1433 Result Comment: A he matocrit value greater than 55% may lead to inaccurate results in coagulation testing. Patients having hematocrit values >55% require a special collection tube for coagulation studies. Please contact the laboratory at [phone] for redraw instructions.PERFORMED BY:[address] [place], [place] [id number] MEDICAL DIRECTORANNIKA NOGUEIRA M.D. Performed By: #### C MP, HS TROP, PTT, ETOH, CK, CBC, PT ####[address] [place] [address] [facility] Phencyclidine Screen Ql (U)O rdered By: Edilberto Wilkerson on 10-26-2022 Phencyclidine Ql (U) Negative Negative [facility] Platelet mean volume [Entiti c volume] in Blood by Automated countOrdered By: Edilberto Wilkerson on 10-26-2022 Platelet mean volume (Bld) [Entitic vol] 9.8 fL Normal 6.6-10.1 [facility] Comment on above: Order Comment: LAVELL Díaz tified AB 1433 Performed By: #### C MP, HS TROP, PTT, ETOH, CK, CBC, PT ####[id number] [place] Platelets [#/volume] in Bloo d by Automated countOrdered By: Edilberto Wilkerson on 10-26-2022 Platelets (Bld) [#/Vol] 104 10*3/uL Low 150-450 [facility] Comment on above: Order Comment: RN No tified AB 1433 Performed By: #### C MP, HS TROP, PTT, ETOH, CK, CBC, PT ####[address] [address] [place] Potassium [Moles/volume] in Serum or PlasmaOrdered By: Edilberto Wilkerson on 10-26-2022 Potassium [Moles/Vol] 3.6 mmol/L Normal 3.5-5.1 [facility] Comment on above: Order Comment: RN No tified AB 1433 Performed By: #### C MP, HS TROP, PTT, ETOH, CK, CBC, PT ####[address] [address] [facility] Protein [Mass/volume] in Ser um or PlasmaOrdered By: Edilberto Wilkerson on 10-26-2022 Protein [Mass/Vol] 7.3 g/dL Normal 6.4-8.9 [facility] Comment on above: Order Comment: RN Bre jey AB 1433 Performed By: #### C MP, HS TROP, PTT, ETOH, CK, CBC, PT ####[id number] [facility] Prothrombin time (PT)Ordered By: Edilberto Wilkerson on 10-26-2022 PT Coag (PPP) [Time] 14.9 s High 9.0-12.9 [facility] Comment on above: A hematocrit value g reater than 55% may lead to inaccurate results in coagulation testing. Patients having hematocrit values >55% require a special collection tube for coagulation studies. Please contact the laboratory at [phone] for redraw instructions. Order Comment: LAVELL Díaz jey AB 1433 Result Comment: A he matocrit value greater than 55% may lead to inaccurate results in coagulation testing. Patients having hematocrit values >55% require a special collection tube for coagulation studies. Please contact the laboratory at [phone] for redraw instructions. Performed By: #### C MP, HS TROP, PTT, ETOH, CK, CBC, PT ####[address] [place] [id number] [facility] Serum globulin measurement b y calculation (mass/volume)Ordered By: Edilberto Wilkerson on 10-26-2022 Globulin (S) [Mass/Vol] 3.4 g/dL [facility] Comment on above: Order Comment: LAVELL khanna AB 1433 Performed By: #### C MP, HS TROP, PTT, ETOH, CK, CBC, PT ####[address] [place] [id number] [facility] Serum or plasma albumin/glob ulin mass ratioOrdered By: Edilberto Wilkerson on 10-26-2022 Albumin/Globulin [Mass ratio] 1.1 {ratio} [facility] Comment on above: Order Comment: LAVELL العليvinay AB 1433 Performed By: #### C MP, HS TROP, PTT, ETOH, CK, CBC, PT ####[address] [place] [id number] [facility] Serum or plasma anion gap de terminationOrdered By: Edilberto Wilkerson on 09-13-2023 Anion gap [Moles/Vol] 14.0 mmol/L Normal 6.0-15.0 [facility] Comment on above: Order Comment: RN No tified AB 1433 Performed By: #### C MP, HS TROP, PTT, ETOH, CK, CBC, PT ####[address] [place] [address] [facility] Sodium [Moles/volume] in Ser um or PlasmaOrdered By: Edilberto Wilkerson on 10-26-2022 Sodium [Moles/Vol] 137 mmol/L Normal 136-145 [facility] Comment on above: Order Comment: RN No tified AB 1433 Performed By: #### C MP, HS TROP, PTT, ETOH, CK, CBC, PT ####[address] [place] [id number] [facility] Specific gravity Auto test s trip (U) [Rel density]Ordered By: Edilberto Wilkerson on 10-26-2022 Specific gravity (U) [Rel density] 1.016 1.001-1.03 0 [facility] Squamous epithelial cells de tection in urine sediment by light microscopyOrdered By: Edilberto Wilkerson on 10-26-2022 Epithelial cells.squamous LM Ql (Urine sed) None seen [HPF] 0-2 [facility] Troponin I High Sensitivityo n 10-26-2022 Troponin I High Sensitivity 36.6 pg/mL High 0.0-20.0 [facility] Comment on above: Order Comment: RN No tified AB 1433 Result Comment: PERF ORMED BY:[address] [place] [phone] MEDICAL DIRECTORANNIKA NOGUEIRA M.D. Performed By: #### C MP, HS TROP, PTT, ETOH, CK, CBC, PT ####[address] [place] [address] [facility] Troponin I.cardiac [Mass/vol ume] in Serum or Plasma by Detection limit <= 0.01 ng/Ordered By: Edilberto Wilkerson on 10-26-2022 Troponin I.cardiac DL <= 0.01 ng/mL [Mass/Vol] 36.6 pg/mL 0.0-20.0 [facility] Urea nitrogen [Mass/volume] in Serum or PlasmaOrdered By: Edilberto Wilkerson on 10-26-2022 Urea nitrogen [Mass/Vol] 23 mg/dL Normal 7-25 [facility] Comment on above: Order Comment: LAVELL khanna AB 1433 Performed By: #### C MP, HS TROP, PTT, ETOH, CK, CBC, PT ####[facility] [id number] Urine bacteria detection by automated methodOrdered By: Edilberto Wilkerson on 10-26-2022 Bacteria Auto Ql (U) None seen None Seen [facility] Urine clarity by refractomet ry automatedOrdered By: Edilberto Wilkerson on 10-26-2022 Clarity Refractometry automated (U) Clear Clear [facility] Urine glucose measurement by automated test strip (mass/volume)Ordered By: Edilberto Wilkerson on 10-26-2022 Glucose Auto test strip (U) [Mass/Vol] Normal mg/dL Normal [facility] Urine hemoglobin detection b y automated test stripOrdered By: Edilberto Wilkerson on 10-26-2022 Hemoglobin Auto test strip Ql (U) 1+ Negative [facility] Urine leukocyte esterase det ection by automated test stripOrdered By: Edilberto Wilkerson on 10-26-2022 Leukocyte esterase Auto test strip Ql (U) Negative Negative [facility] Urine pH measurement by auto mated test stripOrdered By: Edilberto Wilkerson on 10-26-2022 pH (U) 5.0 [pH] Normal 5.0-9.0 [facility] Comment on above: Order Comment: Name Collection Type:: Clean-Voided Midstream Performed By: #### A DDONUAPLUS, URDS ####[address] [place] [id number] [facility] Urine protein measurement by automated test strip (mass/volume)Ordered By: Edilberto Wilkerson on 10-26-2022 Protein (U) [Mass/Vol] 300 mg/dL High Negative [facility] Comment on above: Order Comment: Name Collection Type:: Clean-Voided Midstream Performed By: #### A DDONUAPLUS, URDS ####[facility] Urobilinogen Auto test strip (U) [Mass/Vol]Ordered By: Edilberto Wilkerson on 10-26-2022 Urobilinogen (U) [Mass/Vol] Normal mg/dL Normal [facility] XR knee RT 2Von 10-26-2022 XR knee RT 2V Normal [facility] Basophils Auto (Bld) [#/Vol] Ordered By: Andrea Major on 09-10-2021 Basophils (Bld) [#/Vol] 0.0 10*3/uL 0.0-0.2 [facility] Basophils/100 WBC Auto (Bld) Ordered By: Andrea Major on 09-10-2021 Basophils/100 WBC (Bld) 0.6 % . [facility] Blood hemoglobin measurement (mass/volume)Ordered By: Andrea Major on 09-10-2021 Hemoglobin (Bld) [Mass/Vol] 12.0 g/dL 13.0-17.0 [facility] Blood leukocytes automated c ount (number/volume)Ordered By: Andrea Major on 09-10-2021 WBC (Bld) [#/Vol] 4.3 10*3/uL 4.5-11.0 [facility] Blood thiamine measurement ( moles/volume)Ordered By: Dennis Camargo on 09-10-2021 Thiamine (Bld) [Moles/Vol] 115.0 nmol/L 66.5-200.0 [facility] Comment on above: This test was devfloro ped and its performance characteristics determined by [facility]. It has not been cleared or approved by the Food and Drug Administration. Performed at: [address] [id number] Community Development Aide: Shaun Montiel MD, Phone: [phone] C reactive protein [Mass/vol ume] in Serum or PlasmaOrdered By: Emma Davidson on 09-10-2021 CRP [Mass/Vol] < 0.5 mg/dL 0.0-1.0 [facility] COVID CepheidOrdered By: Jeanette Bradley on 09-10-2021 SARS-CoV-2 (COVID-19) Ab IA Ql Negative Negative [facility] Comment on above: This is a duplicate [employer] Xpert Xpress CoV-2/Flu/RSV Plus RNA by RT-PCR result to be used for statistical tracking purpose only. SARS-CoV-2 (COVID-19) RNA GIANLUCA+probe Ql (Unsp spec) [facility] Cholesterol [Mass/volume] in Serum or PlasmaOrdered By: Andrea Major on 09-10-2021 Cholesterol [Mass/Vol] 100 mg/dL 140-200 [facility] Comment on above: Chol less than 200 m g/dl low risk Chol 201-239 mg/dl borderline risk Chol 240 mg/dl and greater high risk Cholesterol in LDL Calc [Mas s/Vol]Ordered By: Andrea Major on 09-10-2021 Cholesterol in LDL [Mass/Vol] 59 mg/dL 0-100 [facility] Comment on above: LDL ATP III CLASSIFI CATION LDL less than 100 mg/dL Optimal LDL 100-129 mg/dL Near or above optimal LDL 130-159 mg/dL Borderline high LDL 160-189 mg/dL High LDL greater than 189 mg/dL Very high Cholesterol in VLDL Calc [Ma ss/Vol]Ordered By: Andrea Major on 09-10-2021 Cholesterol in VLDL [Mass/Vol] 14 mg/dL [facility] Creatinine and Glomerular fi ltration rate.predicted panel (S/P/Bld)Ordered By: Andrea Major on 09-10-2021 Creatinine [Mass/Vol] 1.17 mg/dL 0.64-1.27 [facility] Eosinophils Auto (Bld) [#/Vo l]Ordered By: Andrea Major on 09-10-2021 Eosinophils (Bld) [#/Vol] 0.3 10*3/uL 0.0-0.45 [facility] Eosinophils/100 WBC Auto (Bl d)Ordered By: Andrea Major on 09-10-2021 Eosinophils/100 WBC (Bld) 6.2 % . [facility] Erythrocyte distribution wid th Auto (RBC) [Ratio]Ordered By: Andrea Major on 09-10-2021 Erythrocyte distribution width (RBC) [Ratio] 15.2 % 12.0-14.8 [facility] Erythrocyte sedimentation ra te by Photometric methodOrdered By: Emma Davidson on 09-10-2021 ESR Photometric method (Bld) [Velocity] 10 mm/hr 0-19 [facility] Estimated glomerular filtrat ion rate (GFR) non- AmericanOrdered By: Andrea Major on 09-10-2021 GFR/1.73 sq M.predicted among non-blacks MDRD (S/P/Bld) [Vol rate/Area] > 60 mL/Min [facility] Folate [Mass/volume] in Seru m or PlasmaOrdered By: Andrea Major on 09-10-2021 Folate [Mass/Vol] 11.6 ng/mL >5.9 [facility] Comment on above: Folate reference ran ge: >5.9 ng/ml The WHO technical consultation on folate and vitamin b12 deficiencies has determined that folate concentrations less than 4 ng/ml are considered deficient. Glucose mean value [Mass/vol ume] in Blood Estimated from glycated hemoglobinOrdered By: Andrea Major on 09-10-2021 Average glucose Estimated from glycated hemoglobin (Bld) [Mass/Vol] 111 mg/dL [facility] Hematocrit Auto (Bld) [Volum e fraction]Ordered By: Andrea Major on 09-10-2021 Hematocrit (Bld) [Volume fraction] 36.2 % 38.8-50.0 [facility] Hemoglobin A1c percentageOrd ered By: Andrea Major on 09-10-2021 HbA1c (Bld) [Mass fraction] 5.5 % 4.3-5.6 [facility] Comment on above: Increased risk for d iabetes: 5.7 - 6.4 diabetes: >6.4 glycemic control for adults with diabetes: <7.0 Laboratory - Chemistry and C hemistry - challengeOrdered By: Andrea Major on 09-10-2021 Cobalamin (Vitamin B12) [Mass/Vol] 339 pg/mL 180-914 [facility] Magnesium [Mass/Vol] 1.4 mg/dL 1.6-2.6 [facility] Laboratory - Hematology and Cell countsOrdered By: Andrea Major on 09-10-2021 Nucleated RBC/100 WBC (Bld) [Ratio] 0.3 % 0-0.5 [facility] Lymphocytes Auto (Bld) [#/Vo l]Ordered By: Andrea Major on 09-10-2021 Lymphocytes (Bld) [#/Vol] 1.4 10*3/uL 1.00-4.8 [facility] Lymphocytes/100 WBC Auto (Bl d)Ordered By: Andrea Major on 09-10-2021 Lymphocytes/100 WBC (Bld) 33.2 % . [facility] MCH Auto (RBC) [Entitic mass ]Ordered By: Andrea Major on 09-10-2021 MCH (RBC) [Entitic mass] 33.8 pg 27.5-35.2 [facility] MCHC Auto (RBC) [Mass/Vol]Or dered By: Andrea Major on 09-10-2021 MCHC (RBC) [Mass/Vol] 33.2 g/dL 32.5-35.6 [facility] MCV Auto (RBC) [Entitic vol] Ordered By: Andrea Major on 09-10-2021 MCV (RBC) [Entitic vol] 101.8 fL 83.5-101 [facility] Macrocytes detectionOrdered By: Andrea Major on 09-10-2021 Macrocytes Ql (Bld) Slight [facility] Monocyte %Ordered By: Mukul Davidson on 09-10-2021 Monocyte % 16 umol/L 11-35 [facility] Monocytes Auto (Bld) [#/Vol] Ordered By: Andrea Major on 09-10-2021 Monocytes (Bld) [#/Vol] 0.3 10*3/uL 0.0-0.8 [facility] Monocytes/100 WBC Auto (Bld) Ordered By: Andrea Major on 09-10-2021 Monocytes/100 WBC (Bld) 7.3 % . [facility] Neutrophils Auto (Bld) [#/Vo l]Ordered By: Andrea Major on 09-10-2021 Neutrophils (Bld) [#/Vol] 2.3 10*3/uL 1.8-7.7 [facility] Neutrophils/100 WBC Auto (Bl d)Ordered By: Andrea Major on 09-10-2021 Neutrophils/100 WBC (Bld) 52.7 % . [facility] No Panel InformationOrdered By: Dennis Camargo on 09-10-2021 25-Hydroxy Vitamin D Total 23.8 ng/mL 30-100 [facility] Comment on above: VITAMIN D STATUS 25( [place])VITAMIN D RANGE (ng/mL) Deficient <20 Insufficient 20 to <30 Sufficient 30 to 100 Reference: Masoud MF,Raul NC, Tonya COTTRELL, et al. Evaluation,treatment, and prevention of vitamin D deficiency; an Endocrine Society clinical practice guideline. JCEM. 2010; 96(7):1911-30. Vitamin C level 0.5 mg/dL 0.4-2.0 [facility] Comment on above: This test was develo ped and its performance characteristics determined by [employer]. It has not been cleared or approved by the Food and Drug Administration. Vitamin C deficiency is generally defined as plasma or serum concentrations less than 0.2 mg/dL and levels between 0.2 and 0.4 mg/dL are considered low. Performed at: [employer] [facility] [employer] [id number] Community Development Aide: Shaun Montiel MD, Phone: [phone] No Panel InformationOrdered By: Andrea Major on 09-10-2021 Estimated GFR () > 60 mL/Min [facility] Comment on above: GFR estimated refere nce range: According to KDOQI guidelines, <60 ml/min/1.73m2 is sufficient to diagnose a patient with chronic kidney disease. Pharmacy Creatinine Clearance (Chem 63.43 [facility] Platelet Estimate Decreased Normal [facility] Platelet Morphology Comment Normal Normal [facility] Platelet mean volume Auto (B ld) [Entitic vol]Ordered By: Andrea Major on 09-10-2021 Platelet mean volume (Bld) [Entitic vol] 11.2 fL 6.6-10.1 [facility] Platelets Auto (Bld) [#/Vol] Ordered By: Andrea Major on 09-10-2021 Platelets (Bld) [#/Vol] 52 10*3/uL 150-450 [facility] RBC Auto (Bld) [#/Vol]Ordere d By: Andrea Major on 09-10-2021 RBC (Bld) [#/Vol] 3.56 10*6/uL 3.90-5.60 [facility] RBC morphologyOrdered By: Darshan Major on 09-10-2021 RBC morphology finding Nom (Bld) N/A [facility] Serum or plasma calcium dash urement (mass/volume)Ordered By: Andrea Major on 09-10-2021 Calcium [Mass/Vol] 8.7 mg/dL 8.2-10.2 [facility] Serum or plasma chloride radha surement (moles/volume)Ordered By: Andrea Major on 09-10-2021 Chloride [Moles/Vol] 106 mmol/L 95-114 [facility] Serum or plasma glucose dash urement (mass/volume)Ordered By: Andrea Major on 09-10-2021 Glucose [Mass/Vol] 98 mg/dL 70-100 [facility] Comment on above: ADA recommended refe rence range Random Glucose Reference Range is dependent on time and content of last meal. Glucose of more than 200 mg/dL in a nonstressed, ambulatory subject supports the diagnosis of Diabetes Mellitus. Serum or plasma high density lipoprotein (HDL) cholesterol measurementOrdered By: Andrea Major on 09-10-2021 Cholesterol in HDL [Mass/Vol] 26 mg/dL 29-71 [facility] Comment on above: HDL CHOL ATP-III CLA SSIFICATION Cardiovascular Risk HDL > or equal to 60 mg/dL LOW HDL < 40 mg/dL HIGH Serum or plasma potassium me asurement (moles/volume)Ordered By: Andrea Major on 09-10-2021 Potassium [Moles/Vol] 3.3 mmol/L 3.5-5.1 [facility] Serum or plasma sodium measu rement (moles/volume)Ordered By: Andrea Major on 09-10-2021 Sodium [Moles/Vol] 139 mmol/L 136-146 [facility] Serum or plasma total carbon dioxide measurement (moles/volume)Ordered By: Andrea Major on 09-10-2021 CO2 [Moles/Vol] 24.9 mmol/L 22.0-30.0 [facility] Serum or plasma total choles terol/high density lipoprotein (HDL) cholesterol mass ratOrdered By: Andrea Major on 09-10-2021 Cholesterol.total/Chol esterol in HDL [Mass ratio] 3.8 {ratio} <5.0 [facility] Serum or plasma urea nitroge n measurement (mass/volume)Ordered By: Andrea Major on 09-10-2021 Urea nitrogen [Mass/Vol] 15 mg/dL 9-23 [facility] TSH DL <= 0.005 mIU/L QnOrde red By: Andrea Major on 09-10-2021 TSH Qn 1.68 m[IU]/L 0.45-5.33 [facility] Thyroxine (T4) free [Mass/vo lume] in Serum or PlasmaOrdered By: Andrea Major on 09-10-2021 Free T4 [Mass/Vol] 0.90 ng/dL 0.61-1.12 [facility] Triglyceride [Mass/volume] i n Serum or PlasmaOrdered By: Andrea Major on 09-10-2021 Triglyceride [Mass/Vol] 73 mg/dL 35-149 [facility] Comment on above: TRIG ATP III CLASSIF ICATION TRIG less than 150 mg/dL Normal TRIG 150-199 mg/dL Borderline high TRIG 200-500 mg/dL High TRIG greater than 500 mg/dL Very high Standard traceable to the Center for Disease Conrtrol and Prevention (CDC) test method. Troponin I.cardiac [Mass/vol ume] in Serum or Plasma by High sensitivity methodOrdered By: Andrea Major on 09-10-2021 Troponin I.cardiac High sensitivity method [Mass/Vol] 115 pg/mL 0-20 [facility] Comment on above: Results called at 1216 on 09/10/21 Whole blood phosphatidyletha nol measurement by LC-MS/MS (mass/volume)Ordered By: Dennis Camargo on 09-10-2021 Phosphatidylethanol (Bld) [Mass/Vol] Negative NEGATIVE [facility] Comment on above: Analyzed compound: P Eth 16:0/18:1. 8-boiocbadz-7-kcbhlz-lx-tskwbwd-3-phosphoethanol. Analysis performed by Liquid Chromatography with Tandem Mass Spectrometry (LC/MS/MS). Detection limit: 20 ng/mL PEth levels in excess of 20 ng/mL are considered evidence of moderate to heavy ethanol consumption. However, the Center for Substance Abuse Treatment (CSAT) advises caution in interpretation and use of biomarkers alone to assess alcohol use. Results should be interpreted in the context of all available clinical and behavioral information. Reference: Substance Abuse and Mental Health Services Administration (2012). The Role of Biomarkers in the Treatment of Alcohol Use Disorders , 2012 Revision. Advisory, Volume 11, Issue 2. This test was developed and its performance characteristics determined by [employer]. It has not been cleared or approved by the Food and Drug Administration. Performed at: [employer] [address] [place] [id number] Community Development Aide: Renae Correa [facility], Phone: [phone] Automated erythrocytes count in urine sediment (number/area)Ordered By: Tomas Bradley on 09-09-2021 RBC Auto (Urine sed) [#/Area] 0-1 [HPF] 0-4 [facility] Automated leukocytes count i n urine sediment (number/area)Ordered By: Tomas Bradley on 09-09-2021 WBC Auto (Urine sed) [#/Area] 1-2 [HPF] 0-4 [facility] Bilirubin Auto test strip Ql (U)Ordered By: Tomas Bradley on 09-09-2021 Bilirubin Ql (U) Negative Negative [facility] Body fluid albumin measureme nt (mass/volume)Ordered By: Tomas Bradley on 09-09-2021 Albumin (Body fld) [Mass/Vol] 3.4 g/dL 3.2-5.5 [facility] COVID-19 SOFIAOrdered By: Adi Bradley on 09-09-2021 SARS-CoV+SARS-CoV-2 (COVID-19) Ag IA.rapid Ql (Resp) Negative Negative [facility] Comment on above: This is a duplicate Nena SARS Antigen (JADA) result to be used for statistical tracking purpose only. Globulin Calc (S) [Mass/Vol] Ordered By: Tomas Bradley on 09-09-2021 Globulin (S) [Mass/Vol] 3.2 g/dL [facility] Ketones Auto test strip (U) [Mass/Vol]Ordered By: Tomas Bradley on 09-09-2021 Ketones (U) [Mass/Vol] Negative Negative Fi [facility] Laboratory - Chemistry and C hemistry - challengeOrdered By: Tomas Bradley on 09-09-2021 Natriuretic peptide B (Bld) [Mass/Vol] 262.0 pg/mL 5-100 [facility] Laboratory - UrinalysisOrder ed By: Tomas Bradley on 09-09-2021 Hyaline casts LM Ql (Urine sed) 0-8 [LPF] 0-8 [facility] Protein Auto test strip (U) [Mass/Vol]Ordered By: Tomas Bradley on 09-09-2021 Protein (U) [Mass/Vol] Trace mg/dL Negative [facility] Protein [Mass/volume] in Ser um or PlasmaOrdered By: Tomas Bradley on 09-09-2021 Protein [Mass/Vol] 6.6 g/dL 6.1-7.9 [facility] Serum or plasma alanine tang otransferase measurement without P-5'-P (enzymatic activiOrdered By: Tomas Bradley on 09-09-2021 ALT No additional P-5'-P [Catalytic activity/Vol] 37 U/L 10-60 [facility] Serum or plasma albumin/glob ulin mass ratioOrdered By: Tomas Bradley on 09-09-2021 Albumin/Globulin [Mass ratio] 1.1 {ratio} [facility] Serum or plasma alkaline herman sphatase measurement (enzymatic activity/volume)Ordered By: Tomas Bradley on 09-09-2021 ALP [Catalytic activity/Vol] 130 U/L 32-92 [facility] Serum or plasma aspartate am inotransferase measurement (enzymatic activity/volume)Ordered By: Tomas Bradley on 09-09-2021 AST [Catalytic activity/Vol] 75 U/L 10-42 [facility] Serum or plasma total biliru bin measurement (mass/volume)Ordered By: Tomas Bradley on 09-09-2021 Bilirubin [Mass/Vol] 0.8 mg/dL 0.3-1.2 [facility] Squamous epithelial cells de tection in urine sediment by light microscopyOrdered By: Tomas Bradley on 09-09-2021 Epithelial cells.squamous LM Ql (Urine sed) 1-2 [HPF] 0-2 [facility] Urine appearanceOrdered By: Tomas Bradley on 09-09-2021 Appearance (U) Clear Clear [facility] Urine bacteria detection by automated methodOrdered By: Tomas Bradley on 09-09-2021 Bacteria Auto Ql (U) None seen None Seen [facility] Urine colorOrdered By: Danilo Bradley on 09-09-2021 Color (U) Yellow Yellow [facility] Urine glucose measurement by automated test strip (mass/volume)Ordered By: Tomas Bradley on 09-09-2021 Glucose Auto test strip (U) [Mass/Vol] Normal mg/dL Normal [facility] Urine hemoglobin detection b y automated test stripOrdered By: Tomas Bradley on 09-09-2021 Hemoglobin Auto test strip Ql (U) Negative Negative [facility] Urine leukocyte esterase det ection by automated test stripOrdered By: Tomas Bradley on 09-09-2021 Leukocyte esterase Auto test strip Ql (U) Negative Negative [facility] Urine nitrite detection by a utomated test stripOrdered By: Tomas Bradley on 09-09-2021 Nitrite Auto test strip Ql (U) Negative Negative [facility] Urobilinogen Auto test strip (U) [Mass/Vol]Ordered By: Tomas Bradley on 09-09-2021 Urobilinogen (U) [Mass/Vol] Normal mg/dL Normal [facility] pH Auto test strip (U)Ordere d By: Tomas Bradley on 09-09-2021 pH (U) 1.020 [pH] 1.001-1.03 0 [facility] pH (U) 6.0 [pH] 5.0-9.0 [facility] Complete Blood Counton 02-09 Erythrocyte distribution width (RBC) [Ratio] 14.6 % Normal 11.0-15.0 [facility] Comment on above: Performed By: #### C BC, CMP, LIPD #### [facility] [address] [place], [place] [id number] Hematocrit (Bld) [Volume fraction] 43.5 % Normal 38.5-50.0 [facility] Specialist Comment on above: Performed By: #### C BC, CMP, LIPD #### [facility] [address] [place], [place] [id number] Hemoglobin (Bld) [Mass/Vol] 13.9 g/dL Normal 13.0-17.1 [facility] Director Comment on above: Performed By: #### C BC, CMP, LIPD #### [facility] [address] [place], [place] [id number] MCH (RBC) [Entitic mass] 32.3 pg Normal 27.0-33.0 [facility] Specialist Comment on above: Performed By: #### C BC, CMP, LIPD #### [facility] [address] [place], [place] [id number] MCHC (RBC) [Mass/Vol] 32.0 g/dL Normal 32.0-36.0 [facility] Comment on above: Performed By: #### C BC, CMP, LIPD #### [facility] [address] [place], [place] [id number] MCV (RBC) [Entitic vol] 101 fL High 80-100 [facility] Specialist Comment on above: Performed By: #### C BC, CMP, LIPD #### [facility] [address] [place] [place], [place] [id number] Platelet mean volume (Bld) [Entitic vol] 12.50 fL Normal 7.50-12.50 [facility] Comment on above: Performed By: #### C BC, CMP, LIPD #### [facility] [address] [place], [place] [id number] Platelets (Bld) [#/Vol] 125 10*3/uL Low 140-400 [facility] Comment on above: Performed By: #### C BC, CMP, LIPD #### [facility] [address] [place] [place], [place] [id number] RBC (Bld) [#/Vol] 4.31 10*6/uL Normal 4.20-5.80 [facility] Director Comment on above: Performed By: #### C BC, CMP, LIPD #### [facility] [address] [place] [place], [place] [id number] RDW-SD 54.8 fL High 37.0-50.0 [facility] Comment on above: Performed By: #### C BC, CMP, LIPD #### [facility] [address] [place], [place] [id number] WBC (Bld) [#/Vol] 7.7 10*3/uL Normal 3.8-11.0 [employer] [place] [facility] [employer] Director Comment on above: Performed By: #### C BC, CMP, LIPD #### [facility] [address] [place], [place] [id number] Comprehensive Metabolic Pane negro 02-09-2021 Albumin [Mass/Vol] 4.0 g/dL Normal 3.6-5.1 [employer] [place] [facility] [employer] Director Comment on above: Performed By: #### C BC, CMP, LIPD #### [facility] [address] [place], [place] [id number] Albumin/Globulin [Mass ratio] 1.4 {ratio} Normal 1.0-2.5 [facility] Comment on above: Performed By: #### C BC, CMP, LIPD #### [facility] [address] [place], [place] [id number] ALP [Catalytic activity/Vol] 182 U/L High 40-129 [facility] Comment on above: Performed By: #### C BC, CMP, LIPD #### [facility] [address] [place], [place] [id number] ALT [Catalytic activity/Vol] 26 U/L Normal 9-46 [facility] Comment on above: Result Comment: 01/13 Female reference range changed. Performed By: #### C BC, CMP, LIPD #### [facility] [address] [place], [place] [id number] Anion gap [Moles/Vol] 19 mmol/L Normal 12-20 [facility] Specialist Comment on above: Result Comment: Effe ctive 02/18/2019 reference range changed. Performed By: #### C BC, CMP, LIPD #### [facility] [address] [place], [place] [id number] AST [Catalytic activity/Vol] 58 U/L High 10-40 [facility] Comment on above: Performed By: #### C BC, CMP, LIPD #### [facility] [address] [facility] [place] [id number] Bilirubin [Mass/Vol] 0.71 mg/dL Normal 0.30-1.20 [facility] Comment on above: Performed By: #### C BC, CMP, LIPD #### [facility] [address] [facility] [id number] BUN/CREA 17 Ratio Normal 6-22 [facility] Comment on above: Performed By: #### C BC, CMP, LIPD #### [facility] [address] [facility] [id number] Calcium [Mass/Vol] 9.5 mg/dL Normal 8.6-10.2 [facility] Comment on above: Performed By: #### C BC, CMP, LIPD #### [facility] [address] [place], [place] [id number] Chloride [Moles/Vol] 102 mmol/L Normal 98-107 [facility] Comment on above: Performed By: #### C BC, CMP, LIPD #### [facility] [address] [facility] [id number] CO2 [Moles/Vol] 25 mmol/L Normal 20-31 [facility] Comment on above: Performed By: #### C BC, CMP, LIPD #### [facility] [address] [facility] [id number] Creatinine [Mass/Vol] 1.1 mg/dL Normal 0.7-1.4 [facility] Comment on above: Performed By: #### C BC, CMP, LIPD #### [facility] [address] [facility] [id number] eGFRAA 77 mL/min/1.73m2 Normal >60 [facility] Comment on above: Performed By: #### C BC, CMP, LIPD #### [facility] [address] [facility] [id number] eGFRNAA 64 mL/min/1.73m2 Normal >60 [facility] Comment on above: Performed By: #### C BC, CMP, LIPD #### [facility] [address] [place], [place] [id number] Globulin (S) [Mass/Vol] 2.8 g/dL Normal 1.9-3.7 [facility] Comment on above: Performed By: #### C BC, CMP, LIPD #### [facility] [address] [place], [place] [id number] Glucose [Mass/Vol] 86 mg/dL Normal 65-99 [facility] Comment on above: Result Comment: For FASTING Glucose --- ADA reference ranges: Normal 65-99 mg/dl Prediabetes 100-125 Diabetes >/= 126 Performed By: #### C BC, CMP, LIPD #### [facility] [address] [place], [place] [id number] Potassium [Moles/Vol] 4.4 mmol/L Normal 3.5-5.5 [facility] Specialist Comment on above: Performed By: #### C BC, CMP, LIPD #### [facility] [address] [place], [place] [id number] Protein [Mass/Vol] 6.8 g/dL Normal 6.1-8.1 [facility] Director Comment on above: Performed By: #### C BC, CMP, LIPD #### [facility] [address] [place], [place] [id number] Sodium [Moles/Vol] 142 mmol/L Normal 135-146 [facility] Director Comment on above: Performed By: #### C BC, CMP, LIPD #### [facility] [address] [place], [place] [id number] Urea nitrogen [Mass/Vol] 19 mg/dL Normal 7-25 [facility] Specialist Comment on above: Performed By: #### C BC, CMP, LIPD #### [facility] [address] [place], [place] [id number] Lipid Panelon 02-09-2021 Cholesterol [Mass/Vol] 129 mg/dL Normal 125-200 No [facility] Director Comment on above: Result Comment: Low risk < 200mg/dL Borderline risk 201-239 mg/dl High risk > or equal to 240 Performed By: #### C BC, CMP, LIPD #### [facility] [address] [place], [place] [id number] Cholesterol in HDL [Mass/Vol] 41 mg/dL Normal >40 [facility] Comment on above: Result Comment: High Cardiovascular Risk HDL <40 mg/dL Low Cardiovascular Risk HDL > or equal to 60 mg/dl Performed By: #### C BC, CMP, LIPD #### [facility] [address] [place], [place] [id number] Cholesterol in LDL [Mass/Vol] 66 mg/dL Normal [facility] Comment on above: Result Comment: LDL ATP III CLASSIFICATION LDL less than 100 mg/dl Optimal LDL 100-129 mg/dl Near or above optimal LDL 130-159 Borderline high LDL 160-189 High LDL greater than 189 mg/dl Very High Performed By: #### C BC, CMP, LIPD #### [facility] [address] [place], [place] [id number] Cholesterol in VLDL [Mass/Vol] 22 mg/dL Normal [facility] Comment on above: Performed By: #### C BC, CMP, LIPD #### [facility] [address] [place], [place] [id number] Cholesterol.total/Chol esterol in HDL [Mass ratio] 3 {ratio} Normal [facility] Specialist Comment on above: Performed By: #### C BC, CMP, LIPD #### [facility] [address] [place], [place] [id number] Triglyceride [Mass/Vol] 112 mg/dL Normal 30-150 [facility] Comment on above: Result Comment: TRIG ATPIII CLASSIFICATIONS TRIG less than 150 mg/dl Normal TRIG 150-199 mg/dl Borderline High TRIG 200-500 mg/dl High TRIG greather than 500 mg/dl Very High Performed By: #### C BC, CMP, LIPD #### [facility] [address] [place], [place] [id number] Microalbumin (w/o Creat)on 04-12-2020 mALB 26.9 mg/dL Normal [facility] Specialist Comment on above: Result Comment: mALB reference range not established. Performed By: #### m ALB #### [facility] [address] [place], [place] [id number] PSA SCREEN (MEDICARE)on 01-14 TPSA 0.288 ng/mL Normal <4.000 [facility] Comment on above: Result Comment: PSA Test Method: ECLIA/Lg e 601 Performed By: #### P #### [facility] [address] [place], [place] [id number] XR Shoulder Complete Left*on 02-09-2021 XR Shoulder Complete Left* CLINICAL HISTORY: Shoulder pain. COMPARISON: None. TECHNIQUE: Left shoulder radiographs. RESULT: Severe narrowing of the left glenohumeral joint with large marginal osteophytes. There is chondrocalcinosis. There are moderate degenerative changes of the acromioclavicular joint. Acromiohumeral interval is maintained. No fracture or dislocation. Soft tissues unremarkable. Rounded focal pulmonary nodule in the left hemithorax. Degenerative changes of the thoracic spine. 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 Left hemithorax rounded opacity. Recommend CT of the chest for further evaluation. Report reported and signed by LILO CINTRON on 02/09/2021 1436 Normal [facility] XR Shoulder Complete Right*o n 02-09-2021 XR Shoulder Complete Right* CLINICAL HISTORY: Several month history of shoulder pain COMPARISON: None. TECHNIQUE: Right shoulder radiographs. RESULT: Glenohumeral joint space is maintained. There is mild chondrocalcinosis. Mild degenerative changes of the acromioclavicular joint. Acromiohumeral interval is maintained. No acute fracture or dislocation. Chronic deformity of the mid clavicular shaft, likely from prior fracture. Soft tissues are unremarkable. Imaged lung pryor are clear. Degenerative changes of the imaged thoracic spine. IMPRESSION: No acute findings. Mild degenerative changes of the shoulder joint including chondrocalcinosis. Report reported and signed by LILO CINTRON on 02/09/2021 1428 Normal [facility] Specialist Vital Signs Date Time Vital Sign Value Performing Clinician Facility 09-17-2024 13:46-0400 Body height 188 cm Manjinder Galloway MD Work Phone: [facility] 09-17-2024 13:46-0400 Diastolic blood pressure 56 mm[Hg] Manjinder Galloway MD Work Phone: [facility] 09-17-2024 13:46-0400 Heart rate 56 /min Manjinder Galloway MD Work Phone: [facility] 09-17-2024 13:46-0400 Systolic blood pressure 128 mm[Hg] Manjinder Galloway MD Work Phone: [facility] 09-13-2024 10:38-0400 Body temperature 97.39 [degF] Jozef Furlong DO Work Phone: [facility] [employer] 09-13-2024 10:38-0400 Diastolic blood pressure 68 mm[Hg] [facility] 09-13-2024 10:38-0400 Heart rate 55 /min Joz[facility] Furlong [facility] 09-13-2024 10:38-0400 Respiratory rate 18 /min Jozef [employer] System[employer] DO [facility] 09-13-2024 10:38-0400 SaO2% (BldA) [Mass fraction] 93 % Jozef Furlong DO Work Phone: [facility] [employer] 09-13-2024 10:38-0400 Systolic blood pressure 138 mm[Hg] Jozef Furlong DO [facility] 08-30-2024 17:01-0400 Body mass index (BMI) [Ratio] 32.77 kg/m2 Jozef Furlong DO Work Phone: [facility] [employer] 08-30-2024 17:01-0400 Body temperature 97.2 [degF] Jozef Furlong DO [facility] 08-30-2024 17:01-0400 Body weight 115.76 kg Jozef Furlong DO [facility] 08-30-2024 17:01-0400 Diastolic blood pressure 85 mm[Hg] Jozef Furlong DO Work Phone: [facility] [employer] [facility] 08-30-2024 17:01-0400 Heart rate 49 /min Jozef Furlong DO Work Phone: [facility] 08-30-2024 17:01-0400 Respiratory rate 18 /min Jozef Furlong DO Work Phone: [facility] 08-30-2024 17:01-0400 SaO2% (BldA) [Mass fraction] 97 % Jozef Furlong DO Work Phone: [facility] 08-30-2024 17:01-0400 Systolic blood pressure 153 mm[Hg] Jozef Furlong DO Work Phone: [facility] 07-26-2024 13:46-0400 Body mass index (BMI) [Ratio] 32.38 kg/m2 Jozef Furlong DO Work Phone: [facility] 07-26-2024 13:46-0400 Body temperature 98.6 [degF] Jozef Furlong DO Work Phone: [facility] 07-26-2024 13:46-0400 Body weight 114.4 kg Jozef Furlong DO Work Phone: [facility] 07-26-2024 13:46-0400 Diastolic blood pressure 61 mm[Hg] Jozef Furlong DO Work Phone: [facility] 07-26-2024 13:46-0400 Heart rate 53 /min Jozef Furlong DO Work Phone: [facility] 07-26-2024 13:46-0400 Respiratory rate 18 /min Jozef Furlong DO Work Phone: [facility] 07-26-2024 13:46-0400 SaO2% (BldA) [Mass fraction] 97 % Jozef Furlong DO Work Phone: [facility] 07-26-2024 13:46-0400 Systolic blood pressure 117 mm[Hg] Jozef Furlong DO Work Phone: [facility] 06-19-2024 10:32-0400 Body temperature 97.59 [degF] Jozef Furlong DO Work Phone: [facility] 06-19-2024 10:32-0400 Diastolic blood pressure 76 mm[Hg] Jozef Furlong DO Work Phone: [facility] 06-19-2024 10:32-0400 Heart rate 96 /min Jozef Furlong DO Work Phone: [facility] 06-19-2024 10:32-0400 Respiratory rate 18 /min Jozef Furlong DO Work Phone: [facility] 06-19-2024 10:32-0400 SaO2% (BldA) [Mass fraction] 97 % Jozef Furlong DO Work Phone: [facility] 06-19-2024 10:32-0400 Systolic blood pressure 129 mm[Hg] Jozef Furlong DO Work Phone: [facility] 05-28-2024 12:13-0400 Body mass index (BMI) [Ratio] 30.88 kg/m2 Jozef Furlong DO Work Phone: [facility] 05-28-2024 12:13-0400 Body temperature 97.81 [degF] Jozef Furlong DO Work Phone: [facility] 05-28-2024 12:13-0400 Body weight 109.09 kg Jozef Furlong DO Work Phone: [facility] 05-28-2024 12:13-0400 Diastolic blood pressure 89 mm[Hg] Jozef Furlong DO Work Phone: [facility] 05-28-2024 12:13-0400 Heart rate 56 /min Jozef Furlong DO Work Phone: [facility] [employer] 05-28-2024 12:13-0400 Respiratory rate 18 /min Jozef Furlong DO Work Phone: [facility] [employer] [facility] 05-28-2024 12:13-0400 SaO2% (BldA) [Mass fraction] 98 % Jozef Furlong DO Work Phone: [facility] [employer] [facility] 05-28-2024 12:13-0400 Systolic blood pressure 145 mm[Hg] Jozef Furlong DO Work Phone: [facility] [employer] [facility] 05-10-2024 18:23-0400 Body mass index (BMI) [Ratio] 30.25 kg/m2 Jozef Furlong DO Work Phone: [facility] [employer] 05-10-2024 18:23-0400 Body weight 106.87 kg Jozef Furlong DO Work Phone: [facility] [employer] [facility] 05-10-2024 18:23-0400 Diastolic blood pressure 76 mm[Hg] Jozef Furlong DO Work Phone: [facility] [employer] [facility] 05-10-2024 18:23-0400 Heart rate 60 /min Jozef Furlong DO Work Phone: [facility] [employer] 05-10-2024 18:23-0400 Respiratory rate 16 /min Jozef Furlong DO Work Phone: [facility] [employer] 05-10-2024 18:23-0400 SaO2% (BldA) [Mass fraction] 97 % Jozef Furlong DO Work Phone: [facility] [employer] 05-10-2024 18:23-0400 Systolic blood pressure 148 mm[Hg] Jozef Furlong DO Work Phone: [facility] [employer] 05-10-2024 16:57-0400 Body mass index (BMI) [Ratio] 30.25 kg/m2 Jozef Furlong DO Work Phone: [facility] [employer] [facility] 05-10-2024 16:57-0400 Body weight 106.87 kg Jozef Furlong DO Work Phone: [facility] [employer] 05-10-2024 16:57-0400 Diastolic blood pressure 76 mm[Hg] Jozef Furlong DO Work Phone: [facility] [employer] 05-10-2024 16:57-0400 Heart rate 60 /min Jozef Furlong DO Work Phone: [facility] [employer] 05-10-2024 16:57-0400 Respiratory rate 16 /min Jozef Furlong DO Work Phone: [facility] [employer] 05-10-2024 16:57-0400 SaO2% (BldA) [Mass fraction] 97 % Jozef Furlong DO Work Phone: [facility] [employer] 05-10-2024 16:57-0400 Systolic blood pressure 148 mm[Hg] Jozef Furlong DO Work Phone: [facility] [employer] 04-12-2024 21:37-0500 Body mass index (BMI) [Ratio] 30.35 kg/m2 Jozfe Furlong DO Work Phone: [facility] [employer] [facility] 04-12-2024 21:37-0500 Body temperature 97.9 [degF] Jozef Furlong DO Work Phone: [facility] [employer] [facility] 04-12-2024 21:37-0500 Body weight 107.23 kg Jozef Furlong DO Work Phone: [facility] [employer] [facility] 04-12-2024 21:37-0500 Diastolic blood pressure 76 mm[Hg] Jozef Furlong DO Work Phone: [facility] [employer] [facility] 04-12-2024 21:37-0500 Heart rate 61 /min Jozef Furlong DO Work Phone: [facility] [employer] 04-12-2024 21:37-0500 Respiratory rate 18 /min Jozef Furlong DO [facility] 04-12-2024 21:37-0500 SaO2% (BldA) [Mass fraction] 97 % Jozef Furlong DO [facility] 04-12-2024 21:37-0500 Systolic blood pressure 118 mm[Hg] Jozef Furlong DO Work Phone: [facility] [employer] [facility] 03-26-2024 10:41-0500 Body height 188 cm Orion Etienne MD Work Phone: [facility] 03-26-2024 10:41-0500 Body mass index (BMI) [Ratio] 30.17 kg/m2 Orion Etienne MD Work Phone: [facility] 03-26-2024 10:41-0500 Body weight 106.59 kg Orion Etienne MD Work Phone: [facility] 02-23-2024 10:46-0500 Body mass index (BMI) [Ratio] 30.2 kg/m2 Jozef Furlong DO Work Phone: [facility] [employer] [facility] 02-23-2024 10:46-0500 Body temperature 98.71 [degF] Jozef Furlong DO [facility] 02-23-2024 10:46-0500 Body weight 106.69 kg Jozef Furlong DO [facility] 02-23-2024 10:46-0500 Diastolic blood pressure 68 mm[Hg] Jozef Furlong DO [facility] 02-23-2024 10:46-0500 Heart rate 56 /min Jozef Furlong DO [facility] 02-23-2024 10:46-0500 Respiratory rate 16 /min Jozef Furlong DO Work Phone: [facility] 02-23-2024 10:46-0500 SaO2% (BldA) [Mass fraction] 9 % Jozef Furlong DO Work Phone: [facility] 02-23-2024 10:46-0500 Systolic blood pressure 138 mm[Hg] Jozef Furlong DO Work Phone: [facility] 02-02-2024 14:14-0500 Diastolic blood pressure 77 mm[Hg] Jozef Furlong DO Work Phone: [facility] 02-02-2024 14:14-0500 Systolic blood pressure 131 mm[Hg] Jozef Furlong DO Work Phone: [facility] 01-03-2024 16:55-0500 Body mass index (BMI) [Ratio] 29.15 kg/m2 Jozef Furlong DO Work Phone: [facility] 01-03-2024 16:55-0500 Body temperature 98.1 [degF] Jozef Furlong DO Work Phone: [facility] 01-03-2024 16:55-0500 Body weight 102.97 kg Jozef Furlong DO Work Phone: [facility] 01-03-2024 16:55-0500 Diastolic blood pressure 64 mm[Hg] Jozef Furlong DO Work Phone: [facility] 01-03-2024 16:55-0500 Heart rate 66 /min Jozef Furlong DO Work Phone: [facility] 01-03-2024 16:55-0500 Systolic blood pressure 108 mm[Hg] Jozef Furlong DO Work Phone: [facility] 11-28-2023 14:01-0400 Body mass index (BMI) [Ratio] 25.04 kg/m2 Jozef Furlong DO Work Phone: [facility] 11-28-2023 14:01-0400 Body temperature 98.2 [degF] Jozef Reynalong DO [facility] 11-28-2023 14:01-0400 Body weight 88.45 kg Jozef Furlong DO [facility] 11-28-2023 14:01-0400 Diastolic blood pressure 66 mm[Hg] Jozef Furlong DO Work Phone: [facility] [employer] [facility] 11-28-2023 14:01-0400 Heart rate 68 /min Jozef Reynalong DO [facility] 11-28-2023 14:01-0400 Respiratory rate 18 /min Jozef Maribelllong DO Work Phone: [facility] [employer] [facility] 11-28-2023 14:01-0400 SaO2% (BldA) [Mass fraction] 95 % Jozef Reynalong DO Work Phone: [facility] [employer] [facility] 11-28-2023 14:01-0400 Systolic blood pressure 118 mm[Hg] Jozef Reynalong DO Work Phone: [facility] [employer] [facility] 11-24-2023 07:21-0400 Body temperature 97.2 [degF] Orion Etienne MD Work Phone: [facility] 11-24-2023 07:21-0400 Diastolic blood pressure 72 mm[Hg] Orion Etienne MD Work Phone: [facility] 11-24-2023 07:21-0400 Heart rate 56 /min Orion Etienne MD Work Phone: [facility] 11-24-2023 07:21-0400 Respiratory rate 12 /min Orion Etienne MD Work Phone: [facility] 11-24-2023 07:21-0400 SaO2% (BldA) [Mass fraction] 95 % rOion Etienne MD Work Phone: [facility] 11-24-2023 07:21-0400 Systolic blood pressure 156 mm[Hg] Orion Etienne MD Work Phone: [facility] 11-22-2023 11:06-0400 Body height 188 cm Orion Etienne MD Work Phone: [facility] 11-22-2023 11:06-0400 Body mass index (BMI) [Ratio] 25.04 kg/m2 Orion Etienne MD Work Phone: [facility] 11-22-2023 11:06-0400 Body weight 88.45 kg Orion Etienne MD Work Phone: [facility] 11-20-2023 22:40-0400 Diastolic blood pressure 73 mm[Hg] Jozef Furlong DO Work Phone: [employer] 11-20-2023 22:40-0400 Heart rate 60 /min Jozef Furlong DO Work Phone: [facility] [employer] 11-20-2023 22:40-0400 Systolic blood pressure 128 mm[Hg] Jozef Furlong DO Work Phone: [employer] 11-19-2023 22:11-0400 Diastolic blood pressure 78 mm[Hg] Jozef Furlong DO Work Phone: [employer] 11-19-2023 22:11-0400 Heart rate 66 /min Jozef Furlong DO Work Phone: [employer] 11-19-2023 22:11-0400 Systolic blood pressure 152 mm[Hg] Jozef Furlong DO Work Phone: [facility] [employer] 11-07-2023 16:09-0400 Body height 182.9 cm Manjinder Galloway MD Work Phone: [facility] 11-07-2023 16:09-0400 Diastolic blood pressure 68 mm[Hg] Manjinder Galloway MD Work Phone: [facility] 11-07-2023 16:09-0400 Heart rate 58 /min Manjinder Galloway MD Work Phone: [facility] 11-07-2023 16:09-0400 Systolic blood pressure 138 mm[Hg] Manjinder Galloway MD Work Phone: [facility] 10-31-2023 17:18-0400 Body height 188 cm Jozef Furlong DO Work Phone: [facility] [employer] [facility] 10-31-2023 17:18-0400 Body mass index (BMI) [Ratio] 25.1 kg/m2 Ojzef Furlong DO Work Phone: [facility] [employer] [facility] 10-31-2023 17:18-0400 Body temperature 96.6 [degF] Jozef Furlong DO Work Phone: [facility] [employer] [facility] 10-31-2023 17:18-0400 Body weight 88.68 kg Jozef Furlong DO Work Phone: [facility] [employer] [facility] 10-31-2023 17:18-0400 Diastolic blood pressure 68 mm[Hg] Jozef Furlong DO Work Phone: [facility] [employer] [facility] 10-31-2023 17:18-0400 Heart rate 68 /min Jozef Furlong DO Work Phone: [facility] [employer] 10-31-2023 17:18-0400 Respiratory rate 18 /min Jozef Furlong DO Work Phone: [facility] [employer] 10-31-2023 17:18-0400 Systolic blood pressure 112 mm[Hg] Jozef Furlong DO Work Phone: [facility] [employer] [facility] 10-11-2023 11:28-0400 Body height 180.3 cm Zelda Mendez NP Work Phone: [facility] 10-11-2023 11:28-0400 Body temperature 97.11 [degF] Zelda Luby OFFICE ASSISTANT Work Phone: [facility] 10-11-2023 11:28-0400 Diastolic blood pressure 64 mm[Hg] Zelda Mendez OFFICE ASSISTANT Work Phone: [facility] 10-11-2023 11:28-0400 Heart rate 53 /min Zelda Mendez OFFICE ASSISTANT Work Phone: [facility] 10-11-2023 11:28-0400 SaO2% (BldA) [Mass fraction] 98 % Zelda Mendez OFFICE ASSISTANT Work Phone: [facility] 10-11-2023 11:28-0400 Systolic blood pressure 102 mm[Hg] Zelda Mendez OFFICE ASSISTANT Work Phone: [facility] 10-11-2023 11:15-0400 Body height 180.3 cm Raheem Montielrylee DO Work Phone: [facility] 10-11-2023 11:15-0400 Body temperature 97.11 [degF] Raheem Wisammilyan DO Work Phone: [facility] 10-11-2023 11:15-0400 Diastolic blood pressure 64 mm[Hg] Raheem Montielan DO Work Phone: [facility] 10-11-2023 11:15-0400 Heart rate 53 /min Raheem Wisammatthias DO Work Phone: [facility] 10-11-2023 11:15-0400 SaO2% (BldA) [Mass fraction] 98 % Raheem Wisammilyan DO Work Phone: [facility] 10-11-2023 11:15-0400 Systolic blood pressure 102 mm[Hg] Raheem Wisammilyan DO Work Phone: [facility] 05-02-2023 11:03-0400 Diastolic blood pressure 63 mm[Hg] DO Damian Ambrosio Work Phone: [facility] 05-02-2023 11:03-0400 Heart rate 55 /min DO Damian Ambrsoio Work Phone: [facility] 05-02-2023 11:03-0400 Respiratory rate 16 /min DO Damian Ambrosio Work Phone: [facility] 05-02-2023 11:03-0400 SaO2% (BldA) [Mass fraction] 99 % DO Damian Ambrosio Work Phone: [facility] 05-02-2023 11:03-0400 Systolic blood pressure 120 mm[Hg] DO Damian Ambrosio Work Phone: [facility] 05-02-2023 07:56-0400 Body temperature 97.4 [degF] DO Damian Ambrosio Work Phone: [facility] 05-02-2023 05:11-0400 Body weight 93.7 kg DO Damian Ambrosio Work Phone: 6(993)931-439560 [place] [address] 04-28-2023 13:19-0400 Body height 187.96 cm DO Damian Ambrosio Work Phone: [facility] 04-27-2023 18:47-0400 Body temperature 97.8 [degF] DO Damian Ambrosio Work Phone: [facility] 04-27-2023 18:47-0400 Diastolic blood pressure 54 mm[Hg] DO Damian Ambrosio Work Phone: [facility] 04-27-2023 18:47-0400 Heart rate 68 /min DO Damian Ambrosio Work Phone: [facility] 04-27-2023 18:47-0400 Respiratory rate 18 /min DO Damian Ambrosio Work Phone: [facility] 04-27-2023 18:47-0400 SaO2% (BldA) [Mass fraction] 96 % DO Damian Ambrosio Work Phone: [facility] 04-27-2023 18:47-0400 Systolic blood pressure 127 mm[Hg] DO Damian Ambrosio Work Phone: [facility] 04-27-2023 13:12-0400 Body height 189.23 cm DO Damian Ambrosio Work Phone: [facility] 04-27-2023 13:12-0400 Body weight 90.71 kg DO Damian Ambrosio Work Phone: [facility] 03-24-2023 15:05-0500 Body temperature 98.2 [degF] DO Damian Ambrosio Work Phone: [facility] 03-24-2023 15:05-0500 Diastolic blood pressure 80 mm[Hg] DO Damian Ambrosio Work Phone: [facility] 03-24-2023 15:05-0500 Respiratory rate 18 /min DO Damian Ambrosio Work Phone: [facility] 03-24-2023 15:05-0500 SaO2% (BldA) [Mass fraction] 98 % DO Damian Ambrosio Work Phone: [facility] 03-24-2023 15:05-0500 Systolic blood pressure 148 mm[Hg] DO Damian Ambrosio Work Phone: [facility] 03-14-2023 13:00-0500 Body height 182.9 cm Michelle Gonzales MD Work Phone: [facility] 03-14-2023 13:00-0500 Body mass index (BMI) [Ratio] 26.31 kg/m2 Michelle Gonzales MD Work Phone: [facility] 03-14-2023 13:00-0500 Body weight 88 kg Michelle Gonzales MD Work Phone: [facility] 03-14-2023 13:00-0500 Diastolic blood pressure 70 mm[Hg] Michelle Gonzales MD Work Phone: [facility] 03-14-2023 13:00-0500 Heart rate 67 /min Michelle Gonzales MD Work Phone: [facility] 03-14-2023 13:00-0500 SaO2% (BldA) [Mass fraction] 99 % Michelle Gonzales MD Work Phone: [facility] 03-14-2023 13:00-0500 Systolic blood pressure 130 mm[Hg] Michelle Gonzales MD Work Phone: [facility] 03-08-2023 11:16-0500 Body temperature 97.6 [degF] DO Nicol Biedenbach Work Phone: [facility] 03-08-2023 11:16-0500 Diastolic blood pressure 71 mm[Hg] DO Nicol Biedenbach Work Phone: [facility] 03-08-2023 11:16-0500 Heart rate 61 /min DO Nicol Biedenbach Work Phone: [facility] 03-08-2023 11:16-0500 Respiratory rate 18 /min DO Nicol Biedenbach Work Phone: [facility] 03-08-2023 11:16-0500 SaO2% (BldA) [Mass fraction] 98 % DO Nicol Biedenbach Work Phone: [facility] 03-08-2023 11:16-0500 Systolic blood pressure 126 mm[Hg] DO Nicol Biedenbach Work Phone: [facility] 03-07-2023 06:04-0500 Body weight 100.8 kg DO Nicol Biedenbach Work Phone: [facility] 03-02-2023 16:15-0500 Body height 187.96 cm DO Nicol Biedenbach Work Phone: [facility] 02-28-2023 18:21-0500 Diastolic blood pressure 82 mm[Hg] PHYSICIAN NO [facility] 02-28-2023 18:21-0500 Heart rate 83 /min PHYSICIAN NO [facility] 02-28-2023 18:21-0500 Respiratory rate 20 /min PHYSICIAN NO [facility] 02-28-2023 18:21-0500 SaO2% (BldA) [Mass fraction] 92 % PHYSICIAN NO [facility] 02-28-2023 18:21-0500 Systolic blood pressure 195 mm[Hg] PHYSICIAN NO [facility] 02-28-2023 14:28-0500 Body height 187.96 cm PHYSICIAN NO [facility] 02-28-2023 14:28-0500 Body temperature 97.5 [degF] PHYSICIAN NO [facility] 02-28-2023 14:28-0500 Body weight 90.71 kg PHYSICIAN NO [facility] 01-25-2023 09:15-0500 Diastolic blood pressure 82 mm[Hg] Emiliana [address] [place] [address] 01-25-2023 09:15-0500 Heart rate 56 /min Emiliana [address] [place] [address] 01-25-2023 09:15-0500 Systolic blood pressure 126 mm[Hg] Emiliana [address] [place] [address] 01-17-2023 13:05-0500 Diastolic blood pressure 60 mm[Hg] Manjinder Galloway MD Work Phone: [facility] 01-17-2023 13:05-0500 Heart rate 64 /min Manjinder Galloway MD Work Phone: [facility] 01-17-2023 13:05-0500 Systolic blood pressure 100 mm[Hg] Manjinder Galloway MD Work Phone: [facility] 01-03-2023 10:19-0500 Body temperature 97 [degF] DO Damian Ambrosio Work Phone: [facility] 01-03-2023 10:19-0500 Body weight 94.34 kg DO Damian Ambrosio Work Phone: [facility] 01-03-2023 10:19-0500 Diastolic blood pressure 67 mm[Hg] DO Damian Ambrosio Work Phone: [facility] 01-03-2023 10:19-0500 Heart rate 70 /min DO Damian Ambrosio Work Phone: [facility] 01-03-2023 10:19-0500 Respiratory rate 16 /min DO Damian Amborsio Work Phone: [facility] 01-03-2023 10:19-0500 SaO2% (BldA) [Mass fraction] 99 % DO Damian Ambrosio Work Phone: [facility] 01-03-2023 10:19-0500 Systolic blood pressure 108 mm[Hg] DO Damian Ambrosio Work Phone: [facility] 01-03-2023 10:15-0500 Body height 187.96 cm DO Damian Ambrosio Work Phone: [facility] 12-23-2022 08:00-0500 Body temperature 97.6 [degF] DO Damian Ambrosio Work Phone: [facility] 12-23-2022 08:00-0500 Diastolic blood pressure 82 mm[Hg] DO Damian Ambrosio Work Phone: [facility] 12-23-2022 08:00-0500 Heart rate 79 /min DO Damian Ambrosio Work Phone: [facility] 12-23-2022 08:00-0500 Respiratory rate 18 /min DO Damian Ambrosio Work Phone: [facility] 12-23-2022 08:00-0500 SaO2% (BldA) [Mass fraction] 96 % DO Damian Ambrosio Work Phone: [facility] 12-23-2022 08:00-0500 Systolic blood pressure 149 mm[Hg] DO Damian Ambrosio Work Phone: [facility] 12-23-2022 04:58-0500 Body weight 90.2 kg DO Damian Ambrosio Work Phone: [facility] 12-20-2022 14:09-0500 Body height 182.88 cm DO Damian Ambrosio Work Phone: [facility] 12-19-2022 21:40-0500 Diastolic blood pressure 82 mm[Hg] DO Damian Ambrosio Work Phone: [facility] 12-19-2022 21:40-0500 Heart rate 82 /min DO Damian Ambrosio Work Phone: [facility] 12-19-2022 21:40-0500 Respiratory rate 19 /min DO Damian Ambrosio Work Phone: [facility] 12-19-2022 21:40-0500 SaO2% (BldA) [Mass fraction] 98 % DO Damian Ambrosio Work Phone: [facility] 12-19-2022 21:40-0500 Systolic blood pressure 133 mm[Hg] DO Damian Ambrosio Work Phone: [facility] 12-19-2022 14:11-0500 Body temperature 98.4 [degF] DO Damian Ambrosio Work Phone: [facility] 12-19-2022 13:35-0500 Body height 182.88 cm DO Damian Ambrosio Work Phone: [facility] 12-19-2022 13:35-0500 Body weight 91.2 kg DO Damian Ambrosio Work Phone: [facility] 11-22-2022 12:00-0400 Body temperature 98 [degF] DO Damian Ambrosio Work Phone: [facility] 11-22-2022 12:00-0400 Diastolic blood pressure 74 mm[Hg] DO Damian Ambrosio Work Phone: [facility] 11-22-2022 12:00-0400 Heart rate 60 /min DO Damian Ambrosio Work Phone: [facility] 11-22-2022 12:00-0400 Respiratory rate 16 /min DO Damian Ambrosio Work Phone: 8(053)252-111504 [place] [address] 11-22-2022 12:00-0400 SaO2% (BldA) [Mass fraction] 95 % DO Damian Ambrosio Work Phone: 9(953)167-004860 [place] [address] 11-22-2022 12:00-0400 Systolic blood pressure 147 mm[Hg] DO Damian Ambrosio Work Phone: 2(548)170-791960 [place] [address] 11-22-2022 07:22-0400 Body weight 103.5 kg DO Damian Ambrosio Work Phone: 3(877)385-196858 [address] 11-21-2022 16:38-0400 Body height 182.88 cm DO Damian Ambrosio Work Phone: 7(878)824-977404 [place] [address] 11-20-2022 11:00-0400 Diastolic blood pressure 80 mm[Hg] DO Damian Ambrosio Work Phone: 2(349)328-134660 [place] [address] 11-20-2022 11:00-0400 Heart rate 67 /min DO Damian Ambrosio Work Phone: 5(284)080-120860 [place] [address] 11-20-2022 11:00-0400 Respiratory rate 20 /min DO Damian Ambrosio Work Phone: 1(312)508-445960 [place] [address] 11-20-2022 11:00-0400 SaO2% (BldA) [Mass fraction] 98 % DO Damian Ambrosio Work Phone: 1(693)857-582460 [place] [address] 11-20-2022 11:00-0400 Systolic blood pressure 138 mm[Hg] DO Damian Ambrosio Work Phone: 8(402)195-105960 [place] [address] 11-20-2022 10:03-0400 Body temperature 97.8 [degF] DO Damian Ambrosio Work Phone: 0(578)014-394360 [place] [address] 11-20-2022 05:20-0400 Body height 187.96 cm DO Damian Ambrosio Work Phone: 3(079)245-367060 [place] [address] 11-20-2022 05:20-0400 Body weight 86 kg DO Damian Ambrosio Work Phone: 8(452)697-101558 [address] 11-03-2022 15:05-0400 Body temperature 98.2 [degF] DO Damian Ambrosio Work Phone: [facility] 11-03-2022 15:05-0400 Diastolic blood pressure 71 mm[Hg] DO Damian Ambrosio Work Phone: 6(251)901-888260 [place] [address] 11-03-2022 15:05-0400 Heart rate 58 /min DO Damian Ambrosio Work Phone: 3(333)547-657860 [place] [address] 11-03-2022 15:05-0400 Respiratory rate 20 /min DO Damian Ambrosio Work Phone: 0(180)073-547360 [place] [address] 11-03-2022 15:05-0400 SaO2% (BldA) [Mass fraction] 96 % DO Damian Ambrosio Work Phone: 3(100)837-954360 [place] [address] 11-03-2022 15:05-0400 Systolic blood pressure 147 mm[Hg] DO Damian Ambrosio Work Phone: 9(391)449-055660 [place] [address] 11-03-2022 05:57-0400 Body weight 94.8 kg DO Damian Ambrosio Work Phone: 9(780)563-523060 [place] [address] 11-02-2022 10:30-0400 Body height 187.96 cm DO Damian Ambrosio Work Phone: [facility] 11-01-2022 22:00-0400 Body temperature 98.1 [degF] DO Damian Ambrosio Work Phone: [facility] 11-01-2022 22:00-0400 Diastolic blood pressure 70 mm[Hg] DO Damian Ambrosio Work Phone: 3(251)827-191660 [place] [address] 11-01-2022 22:00-0400 Heart rate 59 /min DO Damian Ambrosio Work Phone: [facility] 11-01-2022 22:00-0400 Respiratory rate 18 /min DO Damian Joelmilyrylee Work Phone: [facility] 11-01-2022 22:00-0400 SaO2% (BldA) [Mass fraction] 95 % DO Damian Ambrosio Work Phone: 9(725)806-737760 [place] [address] 11-01-2022 22:00-0400 Systolic blood pressure 146 mm[Hg] DO Damian Ambrosio Work Phone: 2(568)932-423460 [place] [address] 11-01-2022 16:33-0400 Body height 187.96 cm DO Damian Ambrosio Work Phone: 6(081)219-280260 [place] [address] 11-01-2022 16:33-0400 Body weight 90.71 kg DO Damian Ambrosio Work Phone: 6(334)954-663258 [address] 10-30-2022 07:58-0400 Body temperature 97.2 [degF] DO Damian Ambrosio Work Phone: 9(390)703-034158 [address] 10-30-2022 07:58-0400 Diastolic blood pressure 88 mm[Hg] DO Damian Ambrosio Work Phone: 0(350)891-311360 [place] [address] 10-30-2022 07:58-0400 Heart rate 65 /min DO Damian Ambrosio Work Phone: 1(323)057-855360 [place] [address] 10-30-2022 07:58-0400 Respiratory rate 16 /min DO Damian Ambrosio Work Phone: 8(469)636-496660 [place] [address] 10-30-2022 07:58-0400 SaO2% (BldA) [Mass fraction] 96 % DO Damian Ambrosio Work Phone: [facility] 10-30-2022 07:58-0400 Systolic blood pressure 160 mm[Hg] DO Damian Ambrosio Work Phone: 4(586)506-538560 [place] [address] 10-30-2022 06:12-0400 Body weight 93 kg DO Damian Ambrosio Work Phone: 2(012)148-164760 [place] [address] 10-27-2022 14:51-0400 Body height 187.96 cm DO Damian Ambrosio Work Phone: 9(214)606-736760 [place] [address] 10-27-2022 01:00-0400 Body temperature 98.7 [degF] DO Damian Ambrosio Work Phone: [facility] 10-27-2022 01:00-0400 Body weight 93.3 kg DO Damian Ambrosio Work Phone: [facility] 10-27-2022 01:00-0400 Diastolic blood pressure 77 mm[Hg] DO Damian Ambrosio Work Phone: [facility] 10-27-2022 01:00-0400 Heart rate 71 /min DO Damian Ambrosio Work Phone: 5(143)741-575460 [place] [address] 10-27-2022 01:00-0400 SaO2% (BldA) [Mass fraction] 97 % DO Damian Ambrosio Work Phone: [facility] 10-27-2022 01:00-0400 Systolic blood pressure 147 mm[Hg] DO Damian Ambrosio Work Phone: [facility] 10-26-2022 19:10-0400 Diastolic blood pressure 65 mm[Hg] DO Damian Ambrosio Work Phone: [facility] 10-26-2022 19:10-0400 Heart rate 72 /min DO Damian Ambrosio Work Phone: [facility] 10-26-2022 19:10-0400 Respiratory rate 16 /min DO Damian Ambrosio Work Phone: [facility] 10-26-2022 19:10-0400 SaO2% (BldA) [Mass fraction] 98 % DO Damian Ambrosio Work Phone: [facility] 10-26-2022 19:10-0400 Systolic blood pressure 148 mm[Hg] DO Damian Ambrosio Work Phone: [facility] 10-26-2022 12:55-0400 Body height 187.96 cm DO Damian Ambrosio Work Phone: [facility] 10-26-2022 12:55-0400 Body weight 90.71 kg DO Damian Ambrosio Work Phone: [facility] 09-10-2021 14:08-0400 Body height 182.88 cm DO Damian Ambrosio Work Phone: [facility] 09-10-2021 11:02-0400 Body temperature 97.6 [degF] DO Damian Ambrosio Work Phone: [facility] 09-10-2021 11:02-0400 Diastolic blood pressure 75 mm[Hg] DO Damian Ambrosio Work Phone: [facility] 09-10-2021 11:02-0400 Heart rate 54 /min DO Damian Ambrosio Work Phone: [facility] 09-10-2021 11:02-0400 Respiratory rate 20 /min DO Damian Ambrosio Work Phone: [facility] 09-10-2021 11:02-0400 SaO2% (BldA) [Mass fraction] 98 % DO Damian Ambrosio Work Phone: [facility] 09-10-2021 11:02-0400 Systolic blood pressure 164 mm[Hg] DO Damian Ambrosio Work Phone: [facility] 09-10-2021 03:02-0400 Body weight 88.4 kg DO Damian Ambrosio Work Phone: [facility] 07-14-2021 13:00-0400 Body height 182.88 cm Alejandra Bar Other [facility] Other 07-14-2021 13:00-0400 Body mass index (BMI) [Ratio] 27.12 kg/m2 Alejandra Bar Other [facility] [facility] [employer] Other 07-14-2021 13:00-0400 Body temperature 97 [degF] Alejandra Bar Other [facility] Other 07-14-2021 13:00-0400 Body weight 90.72 kg Alejandra Bar Other [facility] Other 07-14-2021 13:00-0400 Diastolic blood pressure 78 mm[Hg] Alejandra Bar Other [facility] Other 07-14-2021 13:00-0400 SaO2% (BldA) [Mass fraction] 98 % Alejandra Bar Other [facility] Other 07-14-2021 13:00-0400 Systolic blood pressure 104 mm[Hg] Alejandra Bar Other [facility] Other Encounters Encounter Date Encounter Type Care Provider Facility Start: 10-15-2024 End: 10-15-2024 Telephone encounter Dafne Chew [facility] Comment on above: Fall Start: 09-17-2024 End: 09-17-2024 Office outpatient visit 25 minutes Manjinder Galloway MD Work Phone: [facility] Comment on above: Two-vessel coronary artery disease (Primary Dx); Mixed hyperlipidemia; Ischemic cardiomyopathy; Primary hypertension; Carotid stenosis, right; Shortness of breath; Bilateral carotid artery stenosis; Right sided weakness; Edema of right lower extremity Start: 09-13-2024 End: 09-14-2024 ambulatory Jozef Franklin Woto Work Phone: [facility] Comment on above: Benign hypertension with stage 3a chronic kidney disease ([facility]) (Primary Dx); Insomnia, unspecified type; Wound of right foot; 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, with anxiety (CMS-HCC); Chronic obstructive pulmonary disease, unspecified COPD type (CMS-HCC) Start: 08-30-2024 End: 08-30-2024 ambulatory Jozef Franklin DO Work Phone: [facility] Comment on above: 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, with anxiety ([facility]) (Primary Dx); Hypertension, essential; Peripheral vascular disease, unspecified; Wound of right foot Start: 08-06-2024 End: 08-06-2024 ambulatory [facility] Start: 08-06-2024 End: 08-06-2024 Office outpatient visit 15 minutes Orion Etienne MD Work Phone: [facility] Comment on above: Malignant neoplasm o f parotid gland (Multi) (Primary Dx) Start: 07-26-2024 End: 08-04-2024 ambulatory Jozef Franklin DO Work Phone: [facility] Comment on above: Wound of right foot (Primary Dx); Primary osteoarthritis of both knees; 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, with anxiety ([facility]); Chronic obstructive pulmonary disease, unspecified COPD type ([facility]); Atherosclerosis of [place] coronary artery of [place] heart without angina pectoris Start: 06-19-2024 End: 07-08-2024 ambulatory Jozef Franklin DO Work Phone: [facility] Comment on above: Multiple open wounds of right lower leg (Primary Dx); Wound of right foot; 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, with anxiety ([facility]); Hypertension, essential Start: 06-11-2024 End: 06-11-2024 ambulatory [facility] Start: 06-11-2024 End: 06-11-2024 Office outpatient visit 15 minutes Orion Etienne MD Work Phone: [facility] Comment on above: Malignant neoplasm o f parotid gland (Multi) (Primary Dx); Impacted cerumen of left ear Start: 05-28-2024 End: 05-28-2024 ambulatory Jozef Franklin DO Work Phone: [facility] Comment on above: Multiple open wounds of right lower leg (Primary Dx); Polyarthritis; 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, with anxiety (CMS-HCC); Hypertension, essential Start: 05-10-2024 End: 05-26-2024 ambulatory Jozef Franklin DO Work Phone: [facility] Comment on above: Multiple open wounds of right lower leg (Primary Dx); Peripheral vascular disease, unspecified (CMS-HCC); Ischemic cardiomyopathy; Hypertension, essential; 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, with anxiety (CMS-HCC) Start: 04-12-2024 End: 04-14-2024 ambulatory Jozef Franklin DO Work Phone: [facility] Comment on above: Wound of right foot (Primary Dx); Degenerative disease of nervous system (CMS-HCC); Peripheral vascular disease, unspecified (CMS-HCC); Hypertension, essential Start: 03-26-2024 End: 03-26-2024 Office outpatient visit 15 minutes Orion Etienne MD Work Phone: [facility] Comment on above: 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) Start: 03-26-2024 End: 03-26-2024 ambulatory [facility] Start: 02-23-2024 End: 02-28-2024 ambulatory Jozef Franklin DO Work Phone: [facility] Comment on above: 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) (Primary Dx); Degenerative disease of nervous system (CMS-HCC); Hypertension, essential Start: 02-22-2024 End: 05-26-2024 Orders Only Not In System Ref Prov [facility] Start: 02-02-2024 End: 02-03-2024 ambulatory Jozef Franklin DO Work Phone: [facility] Comment on above: 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) (Primary Dx); 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, with anxiety (CMS-HCC); Chronic obstructive pulmonary disease, unspecified COPD type (CMS-HCC) Start: 01-03-2024 End: 01-03-2024 ambulatory Jozef Franklin DO Work Phone[facility] Comment on above: Parotid mass (Primar y Dx); 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, with anxiety ([facility]); Gastroesophageal reflux disease without esophagitis; Anxiety; Anemia, unspecified type; Adult failure to thrive; Hypertension, essential Start: 12-26-2023 End: 12-26-2023 ambulatory [facility] Start: 12-26-2023 End: 12-26-2023 Postop follow up visit related to original px Orion Etienne MD Work Phone: [facility] Comment on above: 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) Start: 11-28-2023 End: 11-28-2023 ambulatory Jozef Franklin DO Work Phone: [facility] Comment on above: Parotid mass (Primar y Dx); 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, with anxiety ([facility] Primary osteoarthritis of both knees Start: 11-23-2023 End: 11-23-2023 [facility]inis[facility] Result Encounter Generic External Data Provider [facility] External Department Unsolicited Start: 11-23-2023 End: 11-23-2023 Clinisync Result Encounter Generic External Data Provider [facility] External Department Unsolicited Start: 11-22-2023 End: 12-04-2023 Clinisync Result Encounter Generic External Data Provider [facility] External Department Unsolicited Start: 11-22-2023 End: 12-04-2023 Clinisync Result Encounter Generic External Data Provider [facility] External Department Unsolicited Start: 11-22-2023 End: 11-24-2023 ambulatory [facility] Start: 11-22-2023 End: 11-24-2023 Subsequent hospital visit by physician Orion Etienne MD Work Phone: [facility] 5 Comment on above: Malignant neoplasm o f parotid gland (Multi) (Primary Dx) Start: 11-17-2023 End: 11-20-2023 ambulatory Jozef Franklin DO Work Phone: [facility] Comment on above: Parotid mass (Primar y Dx); 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, with anxiety (CMS-HCC); Encephalopathy, unspecified type Start: 11-15-2023 End: 11-15-2023 Clinisync Result Encounter Generic External Data Provider [facility] External Department Unsolicited Start: 11-15-2023 End: 11-15-2023 Clinisync Result Encounter Generic External Data Provider [facility] External Department Unsolicited Start: 11-15-2023 End: 11-15-2023 ambulatory [facility] Start: 11-07-2023 End: 11-08-2023 Encounter for preprocedural cardiovascular examination [facility] Ambulatory Start: 11-07-2023 End: 11-07-2023 Office outpatient visit 25 minutes Manjinder Galloway MD Work Phone: [facility] Comment on above: Two-vessel coronary artery disease (Primary Dx); Mixed hyperlipidemia; Ischemic cardiomyopathy; Carotid stenosis, right; Pre-operative cardiovascular examination; Shortness of breath; Former smoker Start: 11-07-2023 End: 11-07-2023 Patient encounter status Manjinder Galloway MD Work Phone: [facility] Work Phone: Start: 11-07-2023 End: 11-19-2023 Continuing Care Jozef Franklin DO Work Phone: [facility] Comment on above: Encephalopathy, unsp ecified type (Primary Dx); Generalized anxiety disorder; Adult failure to thrive; Chronic obstructive pulmonary disease, unspecified COPD type (CMS-HCC); Hypertension, essential Start: 10-31-2023 End: 11-12-2023 Continuing Care Jozef Franklin DO Work Phone: [facility] Comment on above: Chronic obstructive pulmonary disease, unspecified COPD type (CMS-HCC) (Primary Dx); 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, with anxiety (CMS-HCC); Adult failure to thrive; Atherosclerosis of [place] coronary artery of [place] heart without angina pectoris; Polyarthritis; Hypertension, essential; Degenerative disease of nervous system (CMS-HCC); Encephalopathy, unspecified; Ischemic cardiomyopathy; Other diseases of salivary glands; Primary osteoarthritis of both knees; Gastroesophageal reflux disease without esophagitis; Hyperlipidemia, unspecified hyperlipidemia type; Generalized anxiety disorder; Allergic rhinitis, unspecified seasonality, unspecified trigger; Dysphagia, unspecified type; Nicotine dependence, cigarettes, uncomplicated; Peripheral vascular disease, unspecified (CMS-HCC); Occlusion and stenosis of right carotid artery; Major depressive disorder, single episode, severe without psychotic features (CMS-HCC); Gout, unspecified cause, unspecified chronicity, unspecified site; Insomnia, unspecified type Start: 10-24-2023 End: 10-24-2023 Office outpatient visit 25 minutes Orion Etienne MD Work Phone: [facility] Comment on above: Malignant neoplasm o f parotid gland (Multi) (Primary Dx) Start: 10-24-2023 End: 10-24-2023 ambulatory [facility] Ambulatory Start: 10-11-2023 End: 10-11-2023 Bamboo flowsheet Raheem Ambrosio DO Work Phone: [facility] 230 Start: 10-11-2023 End: 10-11-2023 Bamboo flowsheet Raheem Ambrosio DO Work Phone: [facility] 230 Start: 10-11-2023 End: 10-12-2023 Orders Only Raheem Ambrosio DO Work Phone: [facility] External Department Unsolicited Start: 10-11-2023 End: 10-11-2023 Assay of hemosiderin, quant Zelda Mendez NP Work Phone: [facility] Healthcare Work Phone: Start: 10-11-2023 End: 10-11-2023 Patient encounter procedure Zelda Mendez NP Work Phone: [facility] 230 Comment on above: Routine general medi efraín examination at health care facility (Primary Dx); 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); Chronic obstructive pulmonary disease, unspecified COPD type (CMS/HCC); Essential hypertension (CMS/HCC); Impaired mobility and ADLs; Mixed hyperlipidemia (CMS/HCC) Start: 10-11-2023 End: 10-11-2023 Office outpatient visit 40 minutes Raheem Ambrosio DO Work Phone: [facility] 230 Comment on above: Adult failure to thr jewell (Primary Dx); Altered mental status, unspecified altered mental status type; Chronic obstructive pulmonary disease, unspecified COPD type (CMS/HCC); Essential hypertension (CMS/HCC); Ischemic cardiomyopathy (CMS/HCC); Mixed hyperlipidemia (CMS/HCC); Two-vessel coronary artery disease (CMS/HCC); Primary osteoarthritis of right knee; Mass of left parotid gland; Edema, unspecified type; Chronic gout without tophus, unspecified cause, unspecified site; Prostate cancer screening; Peripheral vascular disease ([facility]/HCC) Start: 10-11-2023 End: 10-11-2023 ambulatory ZELDA MENDEZ Not Available Start: 06-01-2023 End: 06-01-2023 ambulatory RAHEEM AMBROSIO Not Available Start: 05-01-2023 End: 05-02-2023 Encounter for other general examination DO TyreeRama Hermilo Ambrosio Work Phone: [facility] Start: 05-01-2023 End: 05-02-2023 Evaluation and management of inpatient DO TyreeRama Hermilo Ambrosio Work Phone: [facility] [place] [facility] Work Phone: Start: 04-28-2023 Non-patient / Non-visit DO Damian Hermilo Daily Work Phone: [facility] Work Phone: Start: 04-28-2023 Patient encounter status DO TyreeRama Joelmatthias Work Phone: [facility] Start: 04-27-2023 Evaluation and manag ement of inpatient DO TyreeRama Akhtar Daily Work Phone: [facility] [place] [facility] Work Phone: Start: 04-27-2023 Non-patient / Non-visit DO Damian Joelmilyrylee Work Phone: [facility] Work Phone: Start: 04-27-2023 observation encounter DO Damian Ambrosio Work Phone: [facility] Work Phone: Start: 04-25-2023 End: 04-25-2023 ambulatory NICOL ALMANZA Not Available Start: 03-24-2023 End: 03-24-2023 ambulatory DO Damian Joelmatthias Work Phone: [facility] Work Phone: Start: 03-24-2023 End: 03-24-2023 Patient encounter procedure DO Damian Joelmilyrylee Work Phone: [facility] Work Phone: Start: 03-24-2023 Registered Recurring DO Damian Ambrosio Work Phone: [facility] Acute Work Phone: Start: 03-24-2023 ambulatory Franck Songi lity:[facility] Start: 03-14-2023 End: 03-14-2023 Office outpatient new 45 minutes Michelle Gonzales MD Work Phone: [facility] [employer] [facility] 2 Comment on above: Carotid stenosis, ri ght (Primary Dx) Start: 03-13-2023 End: 03-13-2023 ambulatory DOMINICK NUÑEZ Not Available Start: 02-28-2023 End: 03-08-2023 Evaluation and management of inpatient PHYSICIAN NO [facility] [place] [facility] Work Phone: Start: 02-28-2023 Non-patient / Non-visit DO Kavitha Almanza Work Phone: [facility] Work Phone: Start: 02-28-2023 End: 02-28-2023 ambulatory RAHEEM AMBROSIO Not Available Start: 02-20-2023 Patient encounter status Esteban e Daily DO Work Phone: [facility] Start: 02-16-2023 End: 02-16-2023 Subsequent hospital visit by physician Connie Youngblood 3 [facility] Comment on above: Carotid stenosis, ri ght Start: 01-25-2023 End: 01-25-2023 Subsequent hospital visit by physician Emiliana Aceves Stress Room 1 [facility] Start: 01-25-2023 End: 01-25-2023 ambulatory [facility] Start: 01-25-2023 End: 01-25-2023 Encounter for preprocedural cardiovascular examination [facility] Start: 01-17-2023 Encounter for preprocedural cardiovascular examination [facility] Start: 01-17-2023 End: 01-17-2023 Office outpatient visit 25 minutes Manjinder Galloway MD Work Phone: [facility] Comment on above: Syncope and collapse (Primary Dx); Two-vessel coronary artery disease; Ischemic cardiomyopathy; Carotid stenosis, right; Pre-operative cardiovascular examination; Shortness of breath; Mixed hyperlipidemia Start: 01-17-2023 End: 09-17-2024 Patient encounter status Manjinder Galloway MD Work Phone: [facility] Work Phone: Start: 01-10-2023 ambulatory [facility] Start: 01-10-2023 ambulatory [facility] Start: 01-03-2023 End: 01-03-2023 ambulatory DO Damian Ambrosio Work Phone: [facility] Work Phone: Start: 01-03-2023 End: 01-03-2023 Registered Recurring DO Damian Ambrosio Work Phone: [facility] Work Phone: Start: 01-03-2023 Registered Recurring PHYSICIAN BRE ARIZA [facility] Work Phone: Start: 12-19-2022 End: 12-23-2022 Evaluation and management of inpatient DO Damian Hermilo Ambrosio Work Phone: [facility] [place] [facility] Work Phone: Start: 12-09-2022 End: 12-09-2022 ambulatory Nicol Almanza Facility:[facility] Start: 12-09-2022 End: 12-09-2022 Departed Referred DO TyreeRama Ambrosio Work Phone: [facility]-Lab Main [place] Work Phone: Start: 11-20-2022 End: 11-22-2022 Evaluation and management of inpatient DO TyreeRama Ambrosio Work Phone: [facility] [place] [facility] Work Phone: Start: 11-03-2022 End: 11-03-2022 Evaluation and management of inpatient DO TyreeRama Ambrosio Work Phone: [facility] [place] [facility] Work Phone: Start: 11-03-2022 End: 11-03-2022 Patient encounter procedure DO TyreeRama Ambrosio Work Phone: [facility]-Rehabilitation Outpatient Start: 11-03-2022 End: 11-03-2022 ambulatory Ayaz Cruz Facility:[facility] Start: 11-02-2022 End: 11-03-2022 Evaluation and management of inpatient DO Damian Ambrosio Work Phone: [facility] Work Phone: Start: 11-01-2022 Evaluation and manag ement of inpatient DO Damian Ambrosio Work Phone: [facility] Work Phone: Start: 11-01-2022 observation encounter DO Damian Ambrosio Work Phone: [facility] Work Phone: Start: 10-26-2022 End: 10-30-2022 Evaluation and management of inpatient DO Damian Ambrosio Work Phone: [facility] [place] [facility] Work Phone: Start: 10-26-2022 End: 10-26-2022 Emergency department patient visit DO Damian Ambrosio Work Phone: [facility]Emergency [facility] Work Phone: Start: 09-10-2021 End: 09-10-2021 Evaluation and management of inpatient DO Damian Ambrosio Work Phone: [facility] [place] [facility] Start: 07-14-2021 End: 07-14-2021 ambulatory Alejandra Bar Other [facility] [employer] Other Start: 07-14-2021 Follow-up encounter Alejandra Polk PG Vascular Surgery Procedures Date Procedure Procedure Detail Performing Clinician Start: 02-22-[address] atten uation skull base mid-thigh Not In System Ref Prov Start: 11-23-2023 Glucose quantitative blood xcpt reagent strip Orion Etienne MD Work Phone: Start: 11-23-2023 Glucose quantitative blood xcpt reagent strip Orion Etienne MD Work Phone: Start: 11-23-2023 [facility] GLUCOSE-POCT Generic External Data Provider Start: 11-22-2023 PULSE OXIMETRY, CONTINUOUS Polly Batista MD Work Phone: Start: 11-22-2023 SURGICAL PATHOLOGY EXAM Generic External Data Provider Start: 11-22-2023 End: 11-22-2023 Exc prtd allyssa/prtd glnd tot dsj&prsrv facial nr Orion Etienne MD Work Phone: Start: 11-15-2023 ALL CBC WITH AUTO DIFF Generic External Data Provider Start: 11-07-2023 Ecg routine ecg w/le ast 12 lds w/i&r Manjinder Galloway MD Work Phone: Start: 10-11-2023 Complete blood count with white cell differential, automated Raheem Ambrosio DO Work Phone: Start: 10-11-2023 Comprehensive metabo lic panel Raheem Ambrosio DO Work Phone: Start: 10-11-2023 Lipid panel Raheem grace DO Work Phone: Start: 10-11-2023 Lipid 1996 panel - S sammy or Plasma Orion Etienne MD Work Phone: Start: 04-27-2023 End: 04-27-2023 X-ray of right knee DO Damian Ambrosio Work Phone: Start: 02-28-2023 CT cervical spine wi thout contrast PHYSICIAN NO FAMILY Start: 02-28-2023 CT of head without contrast PHYSICIAN NO FAMILY Start: 02-28-2023 Plain chest X-ray PHYSI TEJAS NO FAMILY Start: 02-28-2023 Plain X-ray of left shoulder PHYSICIAN NO FAMILY Start: 02-16-2023 Duplex scan extracra nial art compl bi study Deepali Olson [employer]UC[employer] Work Phone: Start: 01-25-2023 NUCLEAR STRESS TEST NUBIA RHAF NILESH Start: 01-10-2023 NUCLEAR STRESS TEST NUBIA RHAF TRABOULSSI Start: 12-23-2022 CT angiography of head DO Damian Ambrosio Work Phone: Start: 12-23-2022 CT angiography of ne ck vessels DO Damian Ambrosio Work Phone: Start: 12-22-2022 Doppler ultrasonogra phy of bilateral carotid arteries DO Damian Ambrosio Work Phone: Start: 12-20-2022 MRI of head DO Damian Chavarria Daily Work Phone: Start: 12-19-2022 Blood culture for ba cteria, including anaerobic screen DO Damian Ambrosio Work Phone: Start: 12-19-2022 Computed tomography of abdomen and pelvis with contrast DO Damian Ambrosio Work Phone: Start: 12-19-2022 CT of head without contrast DO Damian Ambrosio Work Phone: Start: 12-19-2022 Plain chest X-ray DO Damian Ambrosio Work Phone: Start: 11-20-2022 Urine culture DO Damian Ambrosio Work Phone: Start: 11-20-2022 CT cervical spine wi thout contrast DO Damian Ambrosio Work Phone: Start: 11-20-2022 CT of head without contrast DO Damian Ambrosio Work Phone: Start: 11-20-2022 End: 11-20-2022 Plain chest X-ray DO Damian Ambrosio Work Phone: Start: 11-02-2022 Respiratory Panel (PCR) DO Damian Ambrosio Work Phone: Start: 11-02-2022 Plain chest X-ray DO Damian Ambrosio Work Phone: Start: 10-26-2022 CT cervical spine wi thout contrast DO Damian Ambrosio Work Phone: Start: 10-26-2022 CT of head without contrast DO Damian Ambrosio Work Phone: Start: 10-26-2022 Plain chest X-ray DO Damian Ambrosio Work Phone: Start: 09-09-2021 Plain chest X-ray DO Damian Ambrosio Work Phone: Start: 09-09-2021 CT of head without contrast DO Damian Ambrosio Work Phone: SARS-CoV-2, Influenz a & RSV (PCR) DO Damian Ambrosio Work Phone: Plan of Treatment Date Care Activity Detail Author Start: 01-28-2033 DTaP/Tdap/Td Vaccines (2 - Td or Tdap) DTaP/Tdap/Td Vaccines (2 - Td or Tdap) [facility] Start: 10-10-2028 Lipid panel Lipid Panel [facility] Start: 09-17-2025 End: 09-17-2025 Patient encounter procedure 09/17/2025 1:00 PM EDT Office Visit [facility] [address] [place] [phone] Manjinder Galloway MD [address] [place] [address] [facility] Start: 12-18-2024 End: 03-18-2025 Alanine aminotransferase [Enzymatic activity/volume] in Serum or Plasma by With P-5'-P Alanine Aminotransferase Lab Routine Mixed hyperlipidemia Expected: 12/18/2024, Expires: 03/18/2025 [facility] Work Phone: Comment on above: Expected: 12/18/2024, Expires: Start: 12-18-2024 End: 03-18-2025 Aspartate aminotransferase [Enzymatic activity/volume] in Serum or Plasma by With P-5'-P Aspartate Aminotransferase Lab Routine Mixed hyperlipidemia Expected: 12/18/2024, Expires: 03/18/2025 [facility] Work Phone: Comment on above: Expected: 12/18/2024, Expires: Start: 12-18-2024 End: 03-18-2025 Basic metabolic 2000 panel - Serum or Plasma Basic Metabolic Panel Lab Routine Two-vessel coronary artery disease Ischemic cardiomyopathy Expected: 12/18/2024, Expires: 03/18/2025 [facility] Work Phone: Comment on above: Expected: 12/18/2024, Expires: Start: 12-18-2024 End: 03-18-2025 Lipid 1996 panel - Serum or Plasma Lipid Panel Lab Routine Two-vessel coronary artery disease Mixed hyperlipidemia Expected: 12/18/2024, Expires: 03/18/2025 [facility] Service Area Work Phone: Comment on above: Expected: 12/18/2024, Expires: Start: 12-10-2024 End: 12-10-2024 Patient encounter procedure 12/10/2024 12:00 PM EDT Office Visit [facility] [address] [place] [phone] [place] [address] [place] [address] [facility] Start: 11-22-2024 Diabetes mellitus screening Diabetes Screening [facility] Start: 11-14-2024 Creatinine measurement Creatinine Level [facility] Start: 11-14-2024 Potassium measurement Potassium Level [facility] Start: 10-30-2024 Adult BMI Screening Adult BMI Screening [facility] Start: 10-14-2024 Influenza vaccination [facility] Start: 10-11-2024 Medicare Annual Wellness Visit Medicare Annual Wellness Visit (AWV) [facility] Start: 09-17-2024 End: 09-17-2024 Patient encounter procedure 09/17/2024 1:30 PM EDT Office Visit [facility] [address] [place] [phone] Manjinder Galloway MD [address] [facility] [address] [place] [address] [facility] Start: 08-06-2024 End: 08-06-2024 Patient encounter procedure 08/06/2024 11:30 AM EDT Office Visit [facility] [address] [facility] [place] [phone] [place] [address] [place] [address] [facility] Start: 05-01-2024 End: 05-01-2024 Patient encounter procedure 05/01/2024 2:50 PM EDT Office Visit [facility] [address] [place] [phone] Manjinder Galloway MD [address] [place] [address] [facility] Start: 02-18-2024 End: 03-14-2025 US.doppler Carotid arteries - bilateral Vascular US carotid artery duplex bilateral Vascular Ultrasound Routine Carotid stenosis, right Expected: 02/18/2024 (Approximate), Expires: 03/14/2025 [facility] Service Area Work Phone: Comment on above: Expected: 02/18/2024 (Approximate), Expi res: 03/14/2025 Start: 02-17-2024 Creatinine measurement Creatinine Level [facility] Start: 02-17-2024 Potassium measurement Potassium Level [facility] Start: 01-23-2024 End: 01-23-2024 Patient encounter procedure 01/23/2024 2:15 PM EST Office Visit [facility] [address] [place] [phone] [place] [address] [place] [address] [facility] Start: 12-26-2023 End: 12-25-2024 PET+CT Bone from skull base to mid-thigh W [id number] IV NM PET CT bone skull base to mid thigh Imaging Routine 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) Expected: 12/26/2023, Expires: 12/25/2024 [facility] Service Area Work Phone: Comment on above: Expected: 12/26/2023, Expires: Start: 12-20-2023 Echocardiography Echocardiogram [facility] Start: 12-08-2023 End: 12-08-2023 Patient encounter procedure 12/08/2023 11:30 AM EDT Office Visit [facility] [address] [place] [address] [place] [address] [place] [address] [facility] Start: 12-05-2023 End: 12-05-2023 Patient encounter procedure 12/05/2023 11:30 AM EDT Office Visit [facility] [address] [facility] [address] [place] [phone] [place] [address] [place] [address] [facility] Start: 11-22-2023 End: 11-22-2023 Admission to same day surgery center 11/22/2023 7:45 AM EDT - 11/22/2023 10:40 AM EDT Surgery [facility] [place] [address] [place] [address] [place] [address] [place] [address] Parotidectomy [84336 (CPT )] [facility] [place] Comment on above: Parotidectomy [82283 (CPT )] Start: 11-22-2023 End: 11-22-2023 Exc prtd allyssa/prtd glnd tot dsj&prsrv facial nr Parotidectomy Malignant neoplasm of parotid gland (Multi) 11/22/2023 7:45 AM EDT [facility] Start: 11-22-2023 End: 11-22-2023 Grafting of autologous soft tiss by direct exc Excision Adipose Tissue Graft [place] Malignant neoplasm of parotid gland (Multi) 11/22/2023 7:45 AM EDT [facility] Start: 11-22-2023 Subsequent hospital visit by physician [facility] Start: 11-15-2023 End: 11-15-2023 Admission to establishment 11/15/2023 10:00 AM EDT Pre-Admission Testing [facility] [address] [place] [address] [facility] Start: 11-09-2023 End: 11-09-2023 Clinical Support 11/09/2023 2:00 PM EDT Clinical Support [facility] [address] [place] [address] [facility] Start: 11-07-2023 End: 11-07-2023 Patient encounter procedure 11/07/2023 3:50 PM EDT Office Visit [facility] [address] [place] [phone] Manjinder Galloway MD [address] [place] [address] [facility] Start: 10-24-2023 End: 10-23-2024 Basic metabolic 2000 panel - Serum or Plasma Basic Metabolic Panel Lab Routine Malignant neoplasm of parotid gland (Multi) Expected: 10/24/2023 (Approximate), Expires: 10/23/2024 [facility] Work Phone: Comment on above: Expected: 10/24/2023 (Approximate), Expi res: 10/23/2024 Start: 10-24-2023 End: 10-23-2024 CBC panel - Blood by Automated count CBC Lab Routine Malignant neoplasm of parotid gland (Multi) Expected: 10/24/2023 (Approximate), Expires: 10/23/2024 [facility] Work Phone: Comment on above: Expected: 10/24/2023 (Approximate), Expi res: 10/23/2024 Start: 10-24-2023 End: 10-23-2024 Request for Pre-Admission Testing Visit Request for Pre-Admission Testing Visit Procedures Routine Malignant neoplasm of parotid gland (Multi) Expected: 10/24/2023 (Approximate), Expires: 10/23/2024 [facility] Service Area Work Phone: Comment on above: Expected: 10/24/2023 (Approximate), Expi res: 10/23/2024 Start: 10-15-2023 COVID-19 Vaccine ( season) COVID-19 Vaccine ( season) [facility] Start: 10-15-2023 COVID-19 Vaccine () COVID-19 Vaccine () [facility] Start: 10-15-2023 Influenza vaccination [facility] Start: 10-11-2023 End: 10-10-2024 CBC W Auto Differential panel - Blood CBC and differential Lab Routine Altered mental status, unspecified altered mental status type Chronic obstructive pulmonary disease, unspecified COPD type (CMS/HCC) Essential hypertension (CMS/HCC) Ischemic cardiomyopathy (CMS/HCC) Mixed hyperlipidemia (CMS/HCC) Expected: 10/11/2023 (Approximate), Expires: 10/10/2024 [facility] Comment on above: Expected: 10/11/2023 (Approximate), Expi res: 10/10/2024 Start: 10-11-2023 End: 10-10-2024 Comprehensive metabolic 2000 panel - Serum or Plasma Comprehensive metabolic panel Lab Routine Altered mental status, unspecified altered mental status type Chronic obstructive pulmonary disease, unspecified COPD type (CMS/HCC) Essential hypertension (CMS/HCC) Expected: 10/11/2023 (Approximate), Expires: 10/10/2024 [facility] Comment on above: Expected: 10/11/2023 (Approximate), Expi res: 10/10/2024 Start: 10-11-2023 End: 10-10-2024 Lipid 1996 panel - Serum or Plasma Lipid panel Lab Routine Essential hypertension (CMS/HCC) Ischemic cardiomyopathy (CMS/HCC) Mixed hyperlipidemia (CMS/HCC) Two-vessel coronary artery disease (CMS/HCC) Expected: 10/11/2023 (Approximate), Expires: 10/10/2024 [facility] Work Phone: Comment on above: Expected: 10/11/2023 (Approximate), Expi res: 10/10/2024 Start: 10-11-2023 End: 10-10-2024 Prostate specific Ag [Mass/volume] in Serum or Plasma PSA Lab Routine Prostate cancer screening Expected: 10/11/2023 (Approximate), Expires: 10/10/2024 [facility] Comment on above: Expected: 10/11/2023 (Approximate), Expi res: 10/10/2024 Start: 10-11-2023 End: 10-10-2024 Urate [Mass/volume] in Serum or Plasma Uric acid Lab Routine Chronic gout without tophus, unspecified cause, unspecified site Expected: 10/11/2023 (Approximate), Expires: 10/10/2024 [facility] Comment on above: Expected: 10/11/2023 (Approximate), Expi res: 10/10/2024 Start: 10-11-2023 End: 10-11-2023 Patient encounter procedure 10/11/2023 11:20 AM EDT Office Visit [facility] [address] [place] [phone] Raheem Ambrosio DO [address] [place] [address] Arrived [facility] 230 Comment on above: Arrived Start: 05-12-2023 End: 05-12-2023 Patient encounter procedure 05/12/2023 9:40 AM EDT Office Visit [address] [place] [phone] Manjinder Galloway MD 703 [facility], [address] [place] [address] [facility] Start: 05-09-2023 End: 05-09-2023 Patient encounter procedure 05/09/2023 2:50 PM EDT Office Visit [address] [place] [address] Manjinder Galloway MD 703 [facility] 2, [address] [place] [address] [facility] Start: 05-02-2023 [facility] Start: 04-28-2023 Administration of prophylactic treatment [facility] Start: 04-28-2023 Referral to psychiatrist [facility] Start: 04-28-2023 Comprehensive metabolic 2000 panel - Serum or Plasma [facility] Start: 04-28-2023 End: 04-28-2023 [facility] Start: 04-27-2023 Consultation [facility] Start: 04-27-2023 Hospital admission [facility] Start: 04-27-2023 End: 04-27-2023 [facility] Start: 03-25-2023 COVID-19 Vaccine (5 - Pfizer series) COVID-19 Vaccine (5 - Pfizer series) [facility] Start: 03-25-2023 Zoster Vaccines (3 of 3) Zoster Vaccines (3 of 3) [facility] Start: 03-08-2023 [facility] Start: 03-07-2023 End: 03-07-2023 Patient encounter procedure 03/07/2023 11:30 AM EST Office Visit [facility] [address] [place] [phone] [place] [address] [place] [address] [facility] Start: 03-06-2023 Referral to neurologist [facility] Start: 03-06-2023 Referral to ear, nose and throat surgeon [facility] Start: 03-06-2023 Referral to oncologist [facility] Start: 03-05-2023 Blood chemistry [facility] Start: 03-05-2023 [facility] Start: 03-04-2023 Blood chemistry [facility] Start: 03-04-2023 [facility] Start: 03-03-2023 Blood chemistry [facility] Start: 03-03-2023 [facility] Start: 03-02-2023 Blood chemistry [facility] Start: 03-02-2023 End: 03-02-2023 [facility] Start: 03-01-2023 Referral to computer customer support specialist [facility] Start: 03-01-2023 Referral to rehabilitation physician [facility] Start: 03-01-2023 Blood chemistry [facility] Start: 03-01-2023 [facility] Start: 02-28-2023 Hospital admission [facility] Start: 02-28-2023 [facility] Start: 02-28-2023 [facility] Start: 02-27-2023 End: 02-27-2023 Admission to same day surgery center 02/27/2023 3:30 PM EST - 02/27/2023 6:55 PM [place] [address] [place] [phone] [place] [address] [place], [place] [id number] Parotidectomy [42227 (CPT )] [facility] Comment on above: Parotidectomy [80651 (CPT )] Start: 02-27-2023 End: 02-27-2023 Exc prtd allyssa/prtd glnd tot dsj&prsrv facial nr Parotidectomy Mass of left parotid gland 02/27/2023 3:30 PM EST Virtual [facility] [place] Start: 02-27-2023 End: 02-27-2023 Grafting of autologous soft tiss by direct exc Excision Adipose Tissue Graft [place] Mass of left parotid gland 02/27/2023 3:30 PM EST Virtual [facility] [place] Start: 02-27-2023 Subsequent hospital visit by physician 02/27/2023 2:00 PM EST Hospital [place] [address] [place] [address] [place] [address] [place] [address] [facility] Start: 02-21-2023 End: 02-21-2023 Patient encounter procedure 02/21/2023 8:30 AM EST Office Visit [facility] 2 [address] [facility] [address] [phone] Michelle Gonzales MD 6707 [facility] 202 [place] [address] [facility] 2 Start: 01-27-2023 End: 01-27-2023 Patient encounter procedure [facility]ia [facility] Start: 01-25-2023 End: 01-25-2023 Professional / ancillary services management 01/25/2023 10:15 AM EST Ancillary Procedure Ana Venegas[address] [place] [address] [place] [phone] Ana Dia Start: 01-25-2023 End: 01-25-2023 Patient encounter procedure 01/25/2023 9:30 AM EST Appointment Ana Dia [address] [place] [phone] Ana Dia Start: 01-25-2023 End: 01-25-2023 Professional / ancillary services management Ana Dia Start: 01-17-2023 End: 01-17-2025 NM Heart Perfusion W stress and W radionuclide IV Nuclear Stress Test Cardiac Nuclear Medicine Routine Two-vessel coronary artery disease Ischemic cardiomyopathy Carotid stenosis, right Pre-operative cardiovascular examination Expected: 01/17/2023 (Approximate), Expires: 01/17/2025 [facility] Service Area Work Phone: Comment on above: Expected: 01/17/2023 (Approximate), Expi res: 01/17/2025 Start: 12-23-2022 [facility] Start: 12-22-2022 Referral to vascular surgeon [facility] Start: 12-20-2022 Administration of prophylactic treatment [facility] Start: 12-20-2022 Referral to global creative chairman [facility] Start: 12-20-2022 Blood chemistry [facility] Start: 12-20-2022 Lipid panel [facility] Start: 12-20-2022 End: 12-20-2022 [facility] Start: 12-20-2022 [facility] Start: 12-19-2022 End: 12-19-2022 [facility] Start: 12-19-2022 Physical therapy procedure [facility] Start: 12-19-2022 Referral to occupational therapist [facility] Start: 12-19-2022 MRI of head MR head/brain wo con [facility] Start: 12-19-2022 Hospital admission [facility] Start: 12-19-2022 Bacteria identified in Blood by Culture Blood Culture [facility] Start: 12-19-2022 Blood culture for bacteria, including anaerobic screen Blood Culture [facility] Start: 12-19-2022 [facility] Start: 11-22-2022 [facility] Start: 11-21-2022 Comprehensive metabolic 2000 panel - Serum or Plasma [facility] Start: 11-21-2022 [facility] Start: 11-20-2022 Bacteria identified in Urine by Culture [facility] Start: 11-20-2022 Referral to occupational therapist [facility] Start: 11-20-2022 Physical therapy procedure [facility] Start: 11-20-2022 Consultation [facility] Start: 11-20-2022 Hospital admission [facility] Start: 11-20-2022 End: 11-20-2022 [facility] Start: 11-03-2022 [facility] Start: 11-03-2022 [facility] Start: 11-02-2022 Introduction of Remdesivir Anti-infective into Peripheral Vein, Percutaneous Approach, [employer] 5 Introduction of Remdesivir Anti-infective into Peripheral Vein, Percutaneous Approach, [employer] 5 [facility] Start: 11-02-2022 Referral to rehabilitation physician [facility] Start: 11-02-2022 Blood chemistry [facility] Start: 11-02-2022 [facility] Start: 11-01-2022 Physical therapy procedure [facility] Start: 11-01-2022 Referral to occupational therapist [facility] Start: 11-01-2022 Respiratory pathogens DNA and RNA panel - Nasopharynx by GIANLUCA with non-probe detection [facility] Start: 11-01-2022 Hospital admission [facility] Start: 11-01-2022 [facility] Start: 10-30-2022 [facility] Start: 10-28-2022 Referral to psychiatrist [facility] Start: 10-28-2022 Referral to rehabilitation physician [facility] Start: 10-27-2022 Blood chemistry [facility] Start: 10-27-2022 End: 10-28-2022 [facility] Start: 10-27-2022 Consultation [facility] Start: 10-27-2022 Physical therapy procedure [facility] Start: 10-27-2022 Referral to occupational therapist [facility] Start: 10-27-2022 Hospital admission [facility] Start: 10-27-2022 End: 10-27-2022 [facility] Start: 10-14-2022 Influenza vaccination Influenza Vaccine (#1) [facility] Start: 09-10-2021 [facility] Work Phone: Start: 09-10-2021 [facility] Work Phone: Start: 09-10-2021 Referral to neurologist [facility] Work Phone: Start: 09-10-2021 Hospital admission [facility] Work Phone: Start: 07-16-2021 COVID-19 Vaccine (5 - Pfizer series) COVID-19 Vaccine (5 - Pfizer series) [facility] Start: 08-26-2016 Zoster Vaccines (2 of 3) Zoster Vaccines (2 of 3) [facility] Start: 2011 Fall Risk Screening Fall Risk Screening [facility] Start: 01-30-1996 Administration of varicella zoster vaccine Zoster (Shingles) Vacc[facility] ([facility] Start: 01-30-1968 DTaP/Tdap/Td Vaccines (1 - Tdap) DTaP/Tdap/Td Vaccines (1 - Tdap) [facility] Start: 1965 Administration of varicella zoster vaccine Zoster (Shingles) Vaccine (1 of 2) [facility] Start: 1965 DTaP,Tdap and Td Vaccines (1 - Tdap) DTaP,Tdap and Td Vaccines (1 - Tdap) [facility] Start: 1965 Hepatitis A Vaccines (1 of 2 - Risk 2-dose series) Hepatitis A Vaccines (1 of 2 - Risk 2-dose series) [facility] Start: 1965 Urine screening for protein CKD: Urine Protein Screening [facility] Start: 01-30-1964 Diabetes mellitus screening Diabetes Screening [facility] Start: 01-30-1964 Hepatitis C screening Hepatitis C Screening [facility] Start: 1958 Depression Screening Depression Screening [facility] Start: 1958 Tobacco Screening Tobacco Screening [facility] Start: 1946 Lipid panel Lipid Panel [facility] Start: 1946 Medicare Annual Wellness Visit Medicare Annual Wellness Visit (AWV) [facility] Start: 1946 Thyroglobulin Test Thyroglobulin Test [facility] Start: 1946 Yearly Adult Physical Yearly Adult Physical [facility] Blood chemistry [facility] Electrocardiogram, 1 2-lead PRN ACS symptoms Electrocardiogram, 12-lead PRN ACS symptoms ECG Routine As needed until discontinued starting 11/22/2023 [facility] Work Phone: Comment on above: As needed until discontinued starting Exc prtd allyssa/prtd gl nd tot dsj&prsrv facial nr Parotidectomy Malignant neoplasm of parotid gland (Multi) [facility] [place] End: 11-25-2023 Glucose [Mass/volume] in Serum or Plasma POCT Glucose Point of Care Testing - Docked Device Routine 4 times daily before meals and at bedtime for 3 Days starting 11/22/2023 until 11/25/2023, 4 completed [facility] Work Phone: Comment on above: 4 times daily before meals and at bedtim e for 3 Days starting 11/22/2023 until 11/25/2023, 4 completed Grafting of autologo us soft tiss by direct exc Excision Adipose Tissue Graft [place] Malignant neoplasm of parotid gland (Multi) Virtual [facility] [place] End: 11-22-2023 Incentive Spirometry Instruct Incentive Spirometry Instruct Respiratory Care Routine Once for 1 Occurrences starting 11/22/2023 until 11/22/2023 [facility] Work Phone: Comment on above: Once for 1 Occurrences starting 11/22/19 24 until 11/22/2023 Myeloperoxidase Ab [Units/volume] in Serum by Immunoassay [facility] Neutrophil cytoplasm ic Ab.classic [Titer] in Serum by Immunofluorescence [facility] Neutrophil cytoplasm ic Ab.perinuclear.atypical [Titer] in Serum by Immunofluorescence [facility] P-ANCA measurement [facility] Patient Education [facility] Work Phone: Patient referral [facility] Work Phone: Proteinase 3 Ab [Units/volume] in Serum by Immunoassay [facility] Surgical pathology study [facility] Service Area Work Phone: Comment on above: Release Upon Ordering for 1 Occurrences starting 11/22/2023, 1 completed [facility] Immunizations Immunization Date Immunization Notes Care Provider Willow trotter 01-28-2023 RSV, recombinant, protein subunit RSVpreF, adjuvant reconstitu, 120mcg/0.5mL, PF (Arexvy) Raheem Ambrosio DO Work Phone: [facility] 01-28-2023 tetanus toxoid, redu mallorie diphtheria toxoid, and acellular pertussis vaccine, adsorbed Raheem Ambrosio DO Work Phone: [facility] 01-28-2023 zoster vaccine recombinant Raheem Ambrosio DO Work Phone: [facility] 01-12-2021 influenza, injectabl e, quadrivalent, preservative free Raheem Ambrosio DO Work Phone: [facility] 01-12-2021 influenza virus vaccine, unspecified formulation Manjinder Galloway MD Work Phone: [facility] Work Phone: 05-01-2020 COVID-19 mRNA, Comirnaty (Pfizer) DO Damian Ambrosio Work Phone: [facility] 04-08-2020 COVID-19 mRNA, Comirnaty (Pfizer) DO Damian Ambrosio Work Phone: [facility] 11-16-2019 influenza, high dose seasonal, preservative-free Raheem Ambrosio DO Work Phone: [facility] 11-16-2019 pneumococcal conjuga te vaccine, 13 valent Raheem Ambrosio DO Work Phone: [facility] 07-01-2016 zoster vaccine, live Alejandra Vargaso Other [facility] 06-30-2016 zoster vaccine, live Raheem Ambrosio DO Work Phone: [facility] 06-10-2016 pneumococcal conjuga te vaccine, 13 valent Raheem Ambrosio DO Work Phone: [facility] 07-09-2015 pneumococcal polysaccharide vaccine, 23 valent Raheem Ambrosio DO Work Phone: [facility] Healthcare Payers Date Payer Category Payer Self-pay [id number] 2011 [facility] [id number] 315 2011 [facility] [id number] [id number]. 315 2011 Unknown [id number] 1.13.64 [id number] 2011 [facility] [id number] 2.16.840.1.778852.19 2011 Medicare [id number]. 1.13.64 7.2.7.3.044546.315 2011 Medicare [id number] 2.16.840.1.579497.19 1946 Unknown [id number] 2.16.840.1.530576.3.57 9.2.1259 1946 Unknown [id number] 2.16.840.1.071029.3.57 9.2.1259 1946 Unknown [id number] 2.16.840.1.615599.3.57 9.2.1259 1946 Unknown [id number] 2.16.840.1.401532.3.57 9.2.1259 1946 Unknown [id number] 2.16.840.1.435848.3.57 9.2.1259 1946 Unknown [id number] 2.16.840.1.756323.3.57 9.2.1259 1946 Unknown [id number] 2.16.840.1.383636.3.57 9.2.1246 1946 Unknown [id number] 2.16.840.1.948611.3.57 9.2.1246 1946 Unknown [id number] 2.16.840.1.132730.3.57 9.2.1246 1946 Unknown [id number] 2.16.840.1.745623.3.57 9.2.1246 1946 Unknown [id number] 2.16.840.1.660467.3.57 9.2.1246 1946 Unknown [id number] 2.16.840.1.411076.3.57 9.2.1246 1946 Unknown [id number] 2.16.840.1.535959.3.57 9.2.1246 1946 Unknown [id number] 2.16.840.1.751281.3.57 9.2.1246 1946 Unknown [id number] 2.16.840.1.314741.3.57 9.2.1246 1946 Unknown [id number] 2.16.840.1.852758.3.57 9.2.1245 1946 Unknown [id number] 2.16.840.1.755811.3.57 9.2.1245 1946 Unknown [id number] 2.16.840.1.770460.3.57 9.2.1244 1946 Unknown [id number] 2.16.840.1.318877.3.57 9.2.1244 1946 Unknown [id number] 2.16.840.1.755145.3.57 9.2.1244 1946 Unknown [id number] 2.16.840.1.415833.3.57 9.2.1244 1946 Unknown [id number] 2.16.840.1.499423.3.57 9.2.1244 1946 Unknown [id number] 2.16.840.1.238676.3.57 9.2.1244 Unknown [id number] 2.16.840.1.208205.3.57 9.2.531 Unknown [id number] 2.16.840.1.797463.3.57 9.2.531 Unknown [id number] 2.16.840.1.217489.3.57 9.2.531 Unknown [id number] 2.16.840.1.317529.3.57 9.2.531 Unknown [id number] 2.16.840.1.271971.3.57 9.2.531 Unknown [id number] 2.16.840.1.966762.3.57 9.2.531 Unknown [id number] 2.16.840.1.619948.3.57 9.2.531 Unknown [id number] 2.16.840.1.543420.3.57 9.2.531 Unknown [id number] 2.16.840.1.129714.3.57 9.2.531 Unknown [id number] 2.16.840.1.206601.3.57 9.2.531 Social History Date Type Detail Facility Start: 07-25-2018 End: 01-17-2023 Sex Assigned At [facility] Other Start: 09-10-2021 End: 03-06-2023 Tobacco smoking status PRIS Smoker (finding) [facility] Start: 1945 Sex Assigned At Male [facility] Start: 10-29-2022 End: 11-20-2022 Tobacco smoking status [facility] Unknown if ever smoked [facility] Start: 11-01-2022 Tobacco smoking stat us PRIS Never smoked tobacco (finding) [facility] Start: 01-03-2023 End: 11-15-2023 Tobacco smoking status PRIS Current some day smoker [facility] Start: 01-17-2023 End: 09-17-2024 Tobacco smoking status NHIS Ex-smoker [facility] Work Phone: End: 02-13-2022 History of tobacco use Cigarette Smoker [facility] Work Phone: Start: 01-17-2023 End: 09-17-2024 Tobacco use and exposure Smokeless tobacco non-user [facility] Work Phone: Start: 07-25-2018 End: 01-17-2023 History of Social function [facility] Work Phone: Start: 1945 [facility] Work [facility]: Start: 01-07-2023 End: 06-11-2024 Exposure to SARS-CoV-2 (event) Not sure [facility] Start: 09-21-2022 End: 02-16-2023 Tobacco smoking status NHIS Smokes tobacco daily [facility] Work Phone: Start: 02-16-2023 End: 10-24-2023 Tobacco use and exposure User of smokeless tobacco [facility] Work Phone: Start: 02-16-2023 End: 09-17-2024 Alcohol intake Ex-drinker (finding) [facility] Work Phone: Start: 06-01-2023 End: 10-11-2023 Alcoholic beverage intake Lifetime non-drinker (finding) [facility] Start: 09-21-2022 Alcohol Comment cafffeine 1-2 cups/day [facility] Has the [employer], [employer], or [employer] threatened to shut off services in your home in past 12Mo No [facility] How often to you hav e a drink containing alcohol? Never [facility] Work Phone: Start: 01-08-2022 How many standard drinks containing alcohol do you have on a typical day? Patient does not drink [facility] Work Phone: (I/We) worried clinton [employer] (my/our) food would run out before (I/we) got money to buy more. Never true [facility] Work Phone: Start: 09-18-2014 Sex Male (finding) [facility] Goals Date Patient Goal Desired Activity /State Functional Status Date Assessment Result Facility 05-02-2023 Functional status Patient is Pro gressing Toward Baseline [facility] Work Phone: 04-27-2023 Functional status Patient Not at Baseline [facility] Work Phone: 02-28-2023 Functional status Patient Not at Baseline [facility] Work Phone: 12-23-2022 Functional status Patient is Pro gressing Toward Baseline [facility] Work Phone: 11-22-2022 Functional status Patient at Baseline [facility] Work Phone: 11-03-2022 Functional status Patient at Baseline [facility] Work Phone: 10-30-2022 Functional status Patient at Baseline [facility] Work Phone: 10-27-2022 Functional status Patient Not at Baseline [facility] Work Phone: 09-10-2021 Functional status Patient at Baseline [facility] Work Phone: Mental Status Date Assessment Result Facility 05-02-2023 Cognitive function Cognitive Sta tus Patient is Progressing Toward Baseline [facility] Work Phone: 04-27-2023 Cognitive function Cognitive Sta tus Patient Not at Baseline [facility] Work Phone: 02-28-2023 Cognitive function Cognitive Sta tus Patient Not at Baseline [facility] Work Phone: 12-23-2022 Cognitive function Cognitive Sta tus Patient at Baseline [facility] Work Phone: 11-22-2022 Cognitive function Cognitive Sta tus Patient at Baseline [facility] Work Phone: 11-03-2022 Cognitive function Cognitive Sta tus Patient at Baseline [facility] Work Phone: 10-30-2022 Cognitive function Cognitive Sta tus Patient is Progressing Toward Baseline [facility] Work Phone: 10-27-2022 Cognitive function Cognitive Sta tus Patient at Baseline [facility] Work Phone: 09-10-2021 Cognitive function Cognitive Sta tus Patient at Baseline [facility] Work Phone: Clinical Notes 07-14-2021 to 10-15-2024 Telephone Encounter - DIANE Sanchez - 10/15/2024 8:57 PM EDTTelephone Encounter - DIANE Sanchez - 10/15/2024 8:57 PM Krysten Galloway MD - 09/17/2024 1:30 PM EDT Note Date & Type Note Facility 10-15-2024 Miscellaneous Notes Contract: [id number] Mary calling from [facility] patient is in room 202. Calling regarding patient walking and he fell. No visible signs of injury at this time. Connected Dr. Franklin with Mary. documented in this encounter [facility] 10-15-2024 Telephone encounter Note Contract: [id number] Mary calling from [facility] patient is in room 202. Calling regarding patient walking and he fell. No visible signs of injury at this time. Connected Dr. Franklin with Mary. [facility] 09-17-2024 History of Presen t illness Narrative Chief Complaint Patient presents with Follow-up 6 month Two-vessel coronary artery disease Subjective Hilary Maldonado is a 79 y.o. male HPI Patient is here for follow-up care management for history of coronary artery disease with remote PCI to the left circumflex and known occlusion of the RCA, ischemic cardiomyopathy, hyperlipidemia and bilateral carotid disease. 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 Two-vessel coronary artery disease with known occlusion of the RCA and remote PCI to the left circumflex. Recent stress test showed no ischemia and mild to moderate size myocardial infarction. Patient appears to be stable with no recent chest pain 2. Sedentary lifestyle. Patient denies any shortness of breath. LVEF around 45% on previous echo 3. Bilateral carotid disease with occlusion of his left carotid this carotid Doppler noted and reviewed with him 4. Ischemic cardiomyopathy with LVEF around 45% 5. Hyperlipidemia on low-dose atorvastatin 6. status post resection of parotid tumor without any cardiac complication 7. Patient is detention resident 8. Dementia 9. He had a right foot wound or ulcer followed by his PCP Plan 1. Patient is on good medical therapy for ischemic heart disease including aspirin, beta-blockers. His statin dose is suboptimal 2. I suggested to increase his atorvastatin to 40 mg p.o. nightly and to repeat his lab work in 3 months 3. Continue present medical regimen 4. I reviewed his recent echo and a stress test 5. Patient was counseled regarding risk factor modification 6. Will see him back in 1 year Review of Systems All other systems reviewed and are negative. Generalized weakness and right-sided weakness with wound of the right foot Vitals: 09/17/24 1346 BP: 128/56 BP Location: Left arm Patient Position: Sitting Pulse: 56 Height: 1.88 m (6' 2 ) Objective Physical Exam Constitutional: Appearance: Normal appearance. HENT: Nose: Nose normal. Neck: Vascular: No carotid bruit. Cardiovascular: Rate and Rhythm: Normal rate. Pulses: Normal pulses. Heart sounds: Normal heart sounds. Pulmonary: Effort: Pulmonary effort is normal. Abdominal: General: Bowel sounds are normal. Palpations: Abdomen is soft. Musculoskeletal: General: Normal range of motion. Cervical back: Normal range of motion. Right lower leg: Edema present. Skin: General: Skin is warm and dry. Neurological: General: No focal deficit present. Mental Status: He is alert. Comments: Right-sided weakness Psychiatric: Mood and Affect: Mood normal. Behavior: Behavior normal. Thought Content: Thought content normal. Judgment: Judgment normal. Allergies Altace [ramipril], Morphine, and [place] flavor Current Medications Current Outpatient Medications Medication Instructions ACETAMINOPHEN PAIN RELIEF ORAL 325 mg, Daily allopurinol (ZYLOPRIM) 300 mg, Daily ascorbic acid (VITAMIN C) 500 mg, 2 times daily aspirin 81 mg, Daily atorvastatin (LIPITOR) 20 mg, oral, Nightly, For HLD calcium carbonate-vitamin D3 (Oyster Shell) 250 mg-3.125 mcg (125 unit) tablet 1 tablet, 2 times daily (morning and late afternoon) carvedilol (Coreg) 3.125 mg tablet 1 tablet, 2 times daily (morning and late afternoon) codeine-guaifenesin (Robitussin-AC) 10-100 mg/5 mL syrup Take by mouth. docusate sodium (COLACE) 100 mg, Every 24 hours PRN furosemide (LASIX) 40 mg, Daily RT HYDROcodone-acetaminophen (Winfield) 5-325 mg tablet lubricating eye drops ophthalmic solution 1 drop, As needed magnesium hydroxide (Milk of Magnesia) 400 mg/5 mL suspension 30 mL, Daily PRN melatonin 3 mg capsule Nightly mirtazapine (REMERON CHRISTIANO-TAB) 15 mg, Nightly multivitamin tablet 1 tablet, Daily potassium chloride CR 10 mEq ER tablet 10 mEq, Daily pregabalin (LYRICA) 100 mg, 2 times daily spironolactone (ALDACTONE) 25 mg, Daily tamsulosin (FLOMAX) 0.4 mg, Daily vortioxetine (TRINTELLIX) 10 mg, Daily zinc gluconate 50 mg elemental tablet Daily Assessment/Plan 1. Two-vessel coronary artery disease Follow Up In Cardiology Lipid Panel Basic Metabolic Panel Follow Up In Cardiology Lipid Panel Basic Metabolic Panel 2. Mixed hyperlipidemia Lipid Panel atorvastatin (Lipitor) 20 mg tablet Aspartate Aminotransferase Alanine Aminotransferase Lipid Panel Aspartate Aminotransferase Alanine Aminotransferase 3. Ischemic cardiomyopathy Basic Metabolic Panel Basic Metabolic Panel 4. Primary hypertension 5. Carotid stenosis, right 6. Shortness of breath 7. Bilateral carotid artery stenosis Scribe Attestation By signing my name below, I, Cherrie Mckeon LPN attest that this documentation has been prepared under the direction and in the presence of Manjinder Galloway MD. Provider Attestation - Scribe documentation All medical record entries made by the Scribe were at my direction and personally dictated by me. I have reviewed the chart and agree that the record accurately reflects my personal performance of the history, physical exam, discussion and plan. documented in this encounter [facility] Work Phone: 09-17-2024 Instructions Agustina Robbins LPN - 09/17/2024 1:30 PM EDT Please bring all medicines, vitamins, and herbal supplements with you when you come to the office. Prescriptions will not be filled unless you are compliant with your follow up appointments or have a follow up appointment scheduled as per instruction of your physician. Refills should be requested at the time of your visit. Medical reason BMI was not measured. 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 male seen today at detention facility for problem and monthly visit. Staff reports that he is sleeping a lot and gaining weight. He takes Remeron 30 mg at bedtime for insomnia. They are wondering about a possible dose reduction. He is still getting wound care. Pain isadequately controlled with current regimen. Allergies: Patient has no allergy information on record. Code Status: FULL CODE BP 138/68 Pulse 55 Temp 36.3 C (97.4 F) Resp 18 SpO2 93% Physical Exam Vitals reviewed. Constitutional: General: He is not in acute distress. Appearance: He is not ill-appearing. Comments: Sitting in recliner in room watching TV HENT: Head: Normocephalic. Cardiovascular: Rate and Rhythm: Normal rate and regular rhythm. Pulses: Normal pulses. Heart sounds: Normal heart sounds. No murmur heard. Pulmonary: Effort: Pulmonary effort is normal. No respiratory distress. Breath sounds: Normal breath sounds. No wheezing, rhonchi or rales. Musculoskeletal: Comments: Right foot in dressing Neurological: General: No focal deficit present. Mental Status: He is alert and oriented to person, place, and time. Psychiatric: Attention and Perception: Attention normal. Mood and Affect: Mood normal. Behavior: Behavior normal. Behavior is cooperative. Thought Content: Thought content normal. Summary / Assessment / Plan 1. Benign hypertension with stage 3a chronic kidney disease ([facility]) 2. Insomnia, unspecified type 3. Wound of right foot 4. 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 Chronic obstructive pulmonary disease, unspecified COPD type ([facility]) I am going to cut back on his Remeron to 15 mg daily at bedtime. Check chronic kidney disease labs -BMP, CBC, PTH, uric acid, phosphorus, vitamin-D and magnesium. Continue other orders as directed. All medications reviewed and are medically necessary. ELECTRONICALLY SIGNED BY: Jozef Franklin DO documented [facility] Hospital[facility] [id number] History of Present illness Narrative* Jozef Franklin DO - 08/30/2024 5:01 PM EDT Patient Name: Hilary Maldonado Date of : 1945 Date of Service: 08/30/2024 Facility: [facility] Type of Visit: Subsequent Visit Subjective Hilary Maldonado is a 79 y.o. male seen today at detention facility for regular visit. No new problems reported by staff or patient. He still has wounds on his right it in his getting wound care. He uses pain medication about once a day with effectiveness. It does not appear to have adverse effects on him. His appetite is okay. Allergies: Patient has no allergy information on record. Code Status: FULL CODE BP 153/85 Pulse (!) 49 Temp 36.2 C (97.2 F) Resp 18 Wt 115.8 kg (255 lb 3.2 oz) SpO2 97% BMI 32.77 kg/m Physical Exam Vitals reviewed. Constitutional: General: He is not in acute distress. Appearance: He is not ill-appearing. Comments: Sitting in recliner in room watching TV HENT: Head: Normocephalic. Cardiovascular: Rate and Rhythm: Normal rate and regular rhythm. Pulses: Normal pulses. Heart sounds: Normal heart sounds. No murmur heard. Pulmonary: Effort: Pulmonary effort is normal. No respiratory distress. Breath sounds: Normal breath sounds. No wheezing, rhonchi or rales. Musculoskeletal: Comments: Right foot in dressing Neurological: General: No focal deficit present. Mental Status: He is alert and oriented to person, place, and time. Psychiatric: Attention and Perception: Attention normal. Mood and Affect: Mood normal. Behavior: Behavior normal. Behavior is cooperative. Thought Content: Thought content normal. Summary / Assessment / Plan 1. 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 Hypertension, essential 3. Peripheral vascular disease, unspecified 4. Wound of right foot Medically stable. He is using a high risk medication with benefit and without adverse effects. Continue p.r.n. hydrocodone. Continue wound care. His blood pressure was high recently but it has been at goal at other times. He was bradycardic recently but other causes have been acceptable. He is asymptomatic. All medications reviewed and are medically necessary. ELECTRONICALLY SIGNED BY: Jozef Franklin DO documented in this encounter[facility] History of Present illness Narrative* Orion Etienne MD - 08/06/2024 11:30 AM EDT History of Present Illness Hilary Maldonado was seen in January 2023 at [...] him in 4 months. documented in this [facility] Work Phone: 1(675) 986-312206-13-2025 History of Present illness Narrative* Jozef Franklin, - 07/26/2024 11:59 PM EDT Patient Name: Hilary Maldonado Date of : 1945 Date of Service: 07/26/2024 Facility: [facility] Type of Visit: Subsequent Visit Subjective Hilary Maldonado is a 79 y.o. male seen today at detention facility for regular visit. No new problems reported by staff or patient. He is going to wound clinic and getting wound care. He is having pain in the foot and uses hydrocodone-APAP 5- 325 Q8 hours as needed for pain and he usesit with benefit. He is not having any side effects. He is also on Lyrica 100 mg TID. Allergies: Patient has no allergy information on record. Code Status: FULL CODE BP 117/61 Pulse 53 Temp 37 C (98.6 F) Resp 18 Wt 114.4 kg (252 lb 3.2 oz) SpO2 97% BMI 32.38 kg/m Physical Exam Vitals reviewed. Constitutional: General: He is not in acute distress. Appearance: He is not ill-appearing. Comments: Sitting in recliner in room watching TV HENT: Head: Normocephalic. Eyes: General: No scleral icterus. Extraocular Movements: Extraocular movements intact. Conjunctiva/sclera: Conjunctivae normal. Cardiovascular: Rate and Rhythm: Normal rate and regular rhythm. Pulses: Normal pulses. Heart sounds: Normal heart sounds. No murmur heard. Pulmonary: Effort: Pulmonary effort is normal. No respiratory distress. Breath sounds: Normal breath sounds. No wheezing, rhonchi or rales. Musculoskeletal: Comments: Right foot in dressing Neurological: General: No focal deficit present. Mental Status: He is alert and oriented to person, place, and time. Psychiatric: Attention and Perception: Attention normal. Mood and Affect: Mood normal. Behavior: Behavior normal. Behavior is cooperative. Thought Content: Thought content normal. Assessment/Plan Summary / Assessment / Plan 1. Wound of right foot 2. Primary osteoarthritis of both knees 3. 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 Chronic obstructive pulmonary disease, unspecified COPD type ([facility]) 5. Atherosclerosis of [place] coronary artery of [place] heart without angina pectoris He is using a high risk medication with benefit. He is not having any side effects. He has a pain generator which requires strong pain medication. Continue current regimen. All medications reviewed and are medically necessary. ELECTRONICALLY SIGNED BY: Jozef Franklin DO documented in this encounterW[facility]05-07-[facility]25 History of Present illness Narrative* Jozef Franklin DO - 06/19/2024 11:59 PM EDT Patient Name: Hilary Maldonado Date of : 1945 Date of Service: 06/19/2024 Facility: [facility] Type of Visit: Acute Visit Subjective Hilary Maldonado is a 79 y.o. male seen today at detention facility for problem and regular visit. Patient and staff report increased pain in his right foot. He is currently on Lyrica 100 mg twice aday as well as hydrocodone-acetaminophen 5-325 every 8 hours as needed for pain. He would like to improve his pain control. Winfield only helps a little bit. He has difficulty in describing the pain. Wound clinic ordered an x-ray but no acute pathology was identified. Allergies: Patient has no allergy information on record. Code Status: FULL CODE BP 129/76 Pulse 96 Temp 36.4 C (97.6 F) Resp 18 SpO2 97% Physical Exam Vitals reviewed. Exam conducted with a business services sales representative present (Toño Whiting MS 3). Constitutional: General: He is not in acute distress. Appearance: He is not ill-appearing. Comments: Sitting in recliner in room watching TV HENT: Head: Normocephalic. Eyes: General: No scleral icterus. Extraocular Movements: Extraocular movements intact. Conjunctiva/sclera: Conjunctivae normal. Cardiovascular: Rate and Rhythm: Normal rate and regular rhythm. Pulses: Normal pulses. Heart sounds: Normal heart sounds. No murmur heard. Pulmonary: Effort: Pulmonary effort is normal. No respiratory distress. Breath sounds: Normal breath sounds. No wheezing, rhonchi or rales. Abdominal: General: Bowel sounds are normal. Palpations: Abdomen is soft. Tenderness: There is no abdominal tenderness. Musculoskeletal: Cervical back: Neck supple. Comments: Right foot in dressing Lymphadenopathy: Cervical: No cervical adenopathy. Neurological: General: No focal deficit present. Mental Status: He is alert and oriented to person, place, and time. Psychiatric: Attention and Perception: Attention normal. Mood and Affect: Mood normal. Behavior: Behavior normal. Behavior is cooperative. Thought Content: Thought content normal. Summary / Assessment / Plan 1. Multiple open wounds of right lower leg 2. Wound of right foot 3. 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 Hypertension, essential I'm going to increase his Lyrica 100 mg to 3 times a day. Continue other orders as directed. All medications reviewed and are medically necessary. ELECTRONICALLY SIGNED BY: Jozef Franklin DO documented in this encounterMetro[facility] Centermakemo[facility] [id number] History of Present illness Narrative* Orion Etienne MD - 06/11/2024 11:00 AM EDT History of Present Illness Hilary Maldonado was seen in January 2023 at [...] in the body or in the neck. Physical Exam Palpation of the parotid and neck is negative. I cannot appreciate any underlying masses. He does have some numbness above the surgical site which is to be expected. His facial nerve function is normal. The ear examination however on the left side showed significant impacted material and wax. The microscope had to be used in order to clean that ear. His hearing got improved. 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 The PET scan did not reveal any other lesion in the body. We discussed the possibility of radiation given that one ofthe margins was only 1 mm. We are already 3 months out from surgery. He is also scheduled to undergo a knee replacement in the near future. I will follow him clinically. Significant impacted material in the left ear. Drops will be ordered. I will put him on Ciprodex for 10 days or so. I will see him in 2 months. documented in this [facility] Work Phone: 1(122) 135-221804-15-2025 History of Present illness Narrative* Jozef Reynawyatt, DO - 05/28/2024 9:52 PM EDT Patient Name: Hilary Maldonado Date of : 1945 Date of Service: 05/28/2024 Facility: [facility] Type of Visit: Acute Visit Subjective Hilary Maldonado is a 79 y.o. male seen today at detention facility for problem visit. Patient has a wound on his right foot and it is quite painful. He is getting wound care. He no longer has an unna boot on and it getting daily dressing changes. It is getting better overall but he has been having more pain of late. He is using Tylenol but that is not effective. He would like something stronger for pain. He does not have a fever. His appetite is okay. Allergies: Patient has no allergy information on record. Code Status: FULL CODE BP 145/89 Pulse 56 Temp 36.6 C (97.8 F) Resp 18 Wt 109.1 kg (240 lb 8 oz) SpO2 98% BMI 30.88 kg/m Physical Exam Vitals reviewed. Exam conducted with a business services sales representative present (Ayaz Coleman MS 3). Constitutional: General: He is not in acute distress. Appearance: He is not ill-appearing. Comments: Sitting in recliner in room watching TV HENT: Head: Normocephalic. Eyes: General: No scleral icterus. Extraocular Movements: Extraocular movements intact. Conjunctiva/sclera: Conjunctivae normal. Cardiovascular: Rate and Rhythm: Normal rate and regular rhythm. Pulses: Normal pulses. Heart sounds: Normal heart sounds. No murmur heard. Pulmonary: Effort: Pulmonary effort is normal. No respiratory distress. Breath sounds: Normal breath sounds. No wheezing, rhonchi or rales. Musculoskeletal: Cervical back: Neck supple. Comments: Right foot in dressing Lymphadenopathy: Cervical: No cervical adenopathy. Neurological: General: No focal deficit present. Mental Status: He is alert and oriented to person, place, and time. Psychiatric: Attention and Perception: Attention normal. Mood and Affect: Mood normal. Behavior: Behavior normal. Behavior is cooperative. Thought Content: Thought content normal. Summary / Assessment / Plan 1. Multiple open wounds of right lower leg 2. Polyarthritis 3. 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 Hypertension, essential Tylenol is ineffective. He is getting daily wound care and it is painful. I will add hydrocodone-APAP 5-325 1 Q 8hours prn pain. Risks and benefits of opioids discussed and he agrees to try medication. Continue wound care. His BP fluctuates. Continue current regimen. All medications reviewed and are medically necessary. ELECTRONICALLY SIGNED BY: Jozef Franklin DO documented in this encounterW[facility] Center03-28-2025 History of Present illness Narrative* Jozef Franklin DO - 05/10/2024 11:59 PM EDT Patient Name: Hilary Maldonado Date of : 1945 Date of Service: 05/10/2024 Facility: [facility] Type of Visit: Acute Visit Subjective Hilary Maldonado is a 79 y.o. male seen today at detention facility for regular monthly visit. Nurses report that he has slow healing wounds and is having an unna boot applied twice a week. Theyare concerned about poor circulation. Also there is no wound doctor making rounds here so he will need to be sent out to a wound clinic. Patient denies new problems otherwise. Allergies: Patient has no allergy information on record. Code Status: FULL CODE Objective BP 148/76 Pulse 60 Resp 16 Wt 106.9 kg (235 lb 9.6 oz) SpO2 97% BMI 30.25 kg/m Physical Exam Vitals reviewed. Exam conducted with a business services sales representative present (Ayaz Coleman MS 3). Constitutional: General: He is not in acute distress. Appearance: He is not ill-appearing. Comments: Sitting in recliner in room watching TV HENT: Head: Normocephalic. Jaw: There is normal jaw occlusion. Comments: Scar looks good. Wound healed well. Eyes: General: No scleral icterus. Extraocular Movements: Extraocular movements intact. Conjunctiva/sclera: Conjunctivae normal. Cardiovascular: Rate and Rhythm: Normal rate and regular rhythm. Pulses: Normal pulses. Heart sounds: Normal heart sounds. No murmur heard. Pulmonary: Effort: Pulmonary effort is normal. No respiratory distress. Breath sounds: Normal breath sounds. No wheezing, rhonchi or rales. Musculoskeletal: Cervical back: Neck supple. Right lower le+ Pitting Edema present. Left lower le+ Pitting Edema present. Comments: Unna boot on right foot Lymphadenopathy: Cervical: No cervical adenopathy. Neurological: General: No focal deficit present. Mental Status: He is alert and oriented to person, place, and time. Psychiatric: Attention and Perception: Attention normal. Mood and Affect: Mood normal. Behavior: Behavior normal. Behavior is cooperative. Thought Content: Thought content normal. Assessment/Plan Summary / Assessment / Plan 1. Multiple open wounds of right lower leg 2. Peripheral vascular disease, unspecified (CMS-HCC) 3. Ischemic cardiomyopathy 4. Hypertension, essential 5. 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 Continue other orders as directed. All medications reviewed and are medically necessary. ELECTRONICALLY SIGNED BY: DO Sony Mauriceally signed by Jozef Franklin DO at 05/13/2024 11:33 PM EDT documented in this encounterWex[facility] Center03-28-2025 History of Present illness Narrative* Jozef James DO Noemi - 05/10/2024 11:59 PM EDT Opened in error documented in this encounterWexner Medical Center02-28-2025 History of Present illness Narrative* Jozef G DO Noemi - 04/12/2024 11:59 PM EST Patient Name: Hilary Maldonado Date of : 1945 Date of Service: 04/12/2024 Facility: [facility] Type of Visit: Subsequent Visit Subjective Hilary Maldonado is a 79 y.o. male seen today at detention facility for monthly visit. Staff reports new wound on the top of his right foot. He is getting wound treatment for it. He denies any new problems. He denies pain. His appetite is good. There are no voiding issues. Allergies: Patient has no allergy information on record. Code Status: FULL CODE BP 118/76 Pulse 61 Temp 36.6 C (97.9 F) Resp 18 Wt 107.2 kg (236 lb 6.4 oz) SpO2 97% BMI 30.35 kg/m Physical Exam Vitals reviewed. Constitutional: General: He is not in acute distress. Appearance: He is not ill-appearing. Comments: Sitting in recliner in room watching TV HENT: Head: Normocephalic. Jaw: There is normal jaw occlusion. Comments: Scar looks good. Wound healed well. Eyes: General: No scleral icterus. Extraocular Movements: Extraocular movements intact. Conjunctiva/sclera: Conjunctivae normal. Cardiovascular: Rate and Rhythm: Normal rate and regular rhythm. Pulses: Normal pulses. Heart sounds: Normal heart sounds. No murmur heard. Pulmonary: Effort: Pulmonary effort is normal. No respiratory distress. Breath sounds: Normal breath sounds. No wheezing, rhonchi or rales. Abdominal: General: Bowel sounds are normal. Palpations: Abdomen is soft. Tenderness: There is no abdominal tenderness. Musculoskeletal: Cervical back: Neck supple. Comments: Bandage on right foot Lymphadenopathy: Cervical: No cervical adenopathy. Neurological: General: No focal deficit present. Mental Status: He is alert and oriented to person, place, and time. Psychiatric: Attention and Perception: Attention normal. Mood and Affect: Mood normal. Behavior: Behavior normal. Behavior is cooperative. Thought Content: Thought content normal. Summary / Assessment / Plan 1. Wound of right foot 2. Degenerative disease of nervous system (CMS-HCC) 3. Peripheral vascular disease, unspecified (CMS-HCC) 4. Hypertension, essential Continue wound care orders. Medically stable. All medications reviewed and are medically necessary. ELECTRONICALLY SIGNED BY: Jozef Franklin DO documented in this encounterWexner Medical Center02-11-2025 History of Present illness Narrative* Orion Etienne MD - 03/26/2024 10:45 AM EST History of Present Illness Hilary Maldonado was seen in January 2023 at [...] in the body or in the neck. Physical Exam Examination of the wound shows the area to be well-healed. I cannot appreciate any underlying masses. He does have some numbness above the surgical site which is to be expected. His facial nerve function is normal. 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 The PET scan did not reveal any other lesion in the body. We discussed the possibility of radiation given that one ofthe margins was only 1 mm. We are already 3 months out from surgery. He is also scheduled to undergo a knee replacement in the near future. I will follow him clinically. I will see him in 3 months. documented in this [facility] Work Phone: 1(281) 387-373601-10-2025 History of Present illness Narrative* Jozef Franklin DO - 02/23/2024 11:59 PM EST Patient Name: Hilary Maldonado Date of : 1945 Date of Service: 02/23/2024 Facility: [facility] Type of Visit: Subsequent Visit Subjective Hilary Maldonado is a 79 y.o. male seen today at detention facility for monthly visit. No new problems reported by staff or patient. He did have a PET scan done recently and it did not look like there was any metastatic disease. There was no activity in the head or neck. He has a follow up appointment with the ear nose and throat doctor coming up. Allergies: Patient has no allergy information on record. Code Status: FULL CODE BP 138/68 Pulse 56 Temp 37.1 C (98.7 F) Resp 16 Wt 106.7 kg (235 lb 3.2 oz) SpO2 (!) 9% BMI 30.20 kg/m Physical Exam Vitals reviewed. Constitutional: General: He is not in acute distress. Appearance: He is not ill-appearing. Comments: Sitting in recliner in room watching TV HENT: Head: Normocephalic. Jaw: There is normal jaw occlusion. Comments: Scar looks good. Wound healed well. Eyes: General: No scleral icterus. Extraocular Movements: Extraocular movements intact. Conjunctiva/sclera: Conjunctivae normal. Cardiovascular: Rate and Rhythm: Normal rate and regular rhythm. Pulses: Normal pulses. Heart sounds: Normal heart sounds. No murmur heard. Pulmonary: Effort: Pulmonary effort is normal. No respiratory distress. Breath sounds: Normal breath sounds. No wheezing, rhonchi or rales. Abdominal: General: Bowel sounds are normal. Palpations: Abdomen is soft. Tenderness: There is no abdominal tenderness. Musculoskeletal: Cervical back: Neck supple. Right lower leg: No edema. Left lower leg: No edema. Lymphadenopathy: Cervical: No cervical adenopathy. Neurological: General: No focal deficit present. Mental Status: He is alert and oriented to person, place, and time. Psychiatric: Attention and Perception: Attention normal. Mood and Affect: Mood normal. Behavior: Behavior normal. Behavior is cooperative. Thought Content: Thought content normal. 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 Degenerative disease of nervous system (CMS-HCC) 3. Hypertension, essential Hopefully the tumor was completely excised without any residual disease. PET scan discussed. Continue current regimen. All medications reviewed and are medically necessary. ELECTRONICALLY SIGNED BY: Jozef Franklin DO documented in this encounterW[facility]01-[facility]25 History of Present illness Narrative* Jozef Franklin DO - 02/22/2024 8:57 AM EST Opened in error documented in this encounterWexner [facility] Center12-20-2024 History of Present illness Narrative* Jozef Franklin DO - 02/02/2024 11:59 PM EST Patient Name: Hilary Maldonado Date of : 1945 Date of Service: 02/02/2024 Facility: [facility] Type of Visit: Subsequent Visit Subjective Hilary Maldonado is a 79 y.o. male seen today at detention facility for monthly visit. No new problems reported by staff or patient. He has an appointment coming up with pipe smoking machine offbearer in February to discuss further treatment of the mass that was removed. 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 Allergies: Patient has no allergy information on record. Code Status: FULL CODE BP 131/77 Physical Exam Vitals reviewed. Exam conducted with a business services sales representative present (Marina Johnson MS 3). Constitutional: General: He is not in acute distress. Appearance: He is not ill-appearing. Comments: Sitting in recliner in room watching TV HENT: Head: Normocephalic. Jaw: There is normal jaw occlusion. Comments: Scar looks good. Wound healed well. Eyes: General: No scleral icterus. Extraocular Movements: Extraocular movements intact. Conjunctiva/sclera: Conjunctivae normal. Cardiovascular: Rate and Rhythm: Normal rate and regular rhythm. Pulses: Normal pulses. Heart sounds: Normal heart sounds. No murmur heard. Pulmonary: Effort: Pulmonary effort is normal. No respiratory distress. Breath sounds: Normal breath sounds. No wheezing, rhonchi or rales. Abdominal: General: Bowel sounds are normal. Palpations: Abdomen is soft. Tenderness: There is no abdominal tenderness. Musculoskeletal: Cervical back: Neck supple. Right lower leg: No edema. Left lower leg: No edema. Lymphadenopathy: Cervical: No cervical adenopathy. Skin: General: Skin is warm. Comments: Incision on left side of face is healing well. No drainage, redness or swelling Neurological: General: No focal deficit present. Mental Status: He is alert and oriented to person, place, and time. Psychiatric: Attention and Perception: Attention normal. Mood and Affect: Mood normal. Behavior: Behavior normal. Behavior is cooperative. Thought Content: Thought content normal. Summary / Assessment / Plan 1. 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[facility]) 2. 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 Continue other orders as directed. All medications reviewed and are medically necessary. ELECTRONICALLY SIGNED BY: Jozef Franklin DO documented in this encounterWexner Medical Center11-20-2024 History of Present illness Narrative* Jozef Franklin DO - 01/03/2024 4:55 PM EST Patient Name: Hilary Maldonado Date of : 1945 Date of Service: 01/03/2024 Facility: [facility] Type of Visit: Subsequent Visit Subjective Hilary Maldonado is a 78 y.o. male seen today at detention facility for problem visit. Vidal was having a headache the last few days and has taken tylenol with fair improvement. He was started on cephalexin for possible wound infection and has a couple days left. Staff reported that the pathology from his parotid mass was squamous cell cancer. They are arranging a PET scan for him. He feels he is taking too many medications and would like to cut back. Allergies: Patient has no allergy information on record. Code Status: FULL CODE BP 108/64 Pulse 66 Temp 36.7 C (98.1 F) Wt 103 kg (227 lb) BMI 29.15 kg/m Physical Exam Vitals reviewed. Constitutional: General: He is not in acute distress. Appearance: He is not ill-appearing. Comments: Sitting in recliner in room watching TV HENT: Head: Normocephalic. Jaw: There is normal jaw occlusion. Comments: Steri-Strips in place along the left side of his face in the preauricular area Eyes: General: No scleral icterus. Extraocular Movements: Extraocular movements intact. Conjunctiva/sclera: Conjunctivae normal. Cardiovascular: Rate and Rhythm: Normal rate and regular rhythm. Pulses: Normal pulses. Heart sounds: Normal heart sounds. No murmur heard. Pulmonary: Effort: Pulmonary effort is normal. No respiratory distress. Breath sounds: Normal breath sounds. No wheezing, rhonchi or rales. Abdominal: General: Bowel sounds are normal. Palpations: Abdomen is soft. Tenderness: There is no abdominal tenderness. Musculoskeletal: Cervical back: Neck supple. Right lower leg: No edema. Left lower leg: No edema. Lymphadenopathy: Cervical: No cervical adenopathy. Skin: General: Skin is warm. Comments: Incision on left side of face is healing well. No drainage, redness or swelling Neurological: General: No focal deficit present. Mental Status: He is alert and oriented to person, place, and time. Psychiatric: Attention and Perception: Attention normal. Mood and Affect: Mood normal. Behavior: Behavior normal. Behavior is cooperative. Thought Content: Thought content normal. Summary / Assessment / Plan 1. Parotid mass 2. 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 Gastroesophageal reflux disease without esophagitis 4. Anxiety 5. Anemia, unspecified type 6. Adult failure to thrive 7. Hypertension, essential I'm going to stop protonix and vitamin C supplement. D/C abilify 5mg daily and use it prn anxiety x 14 days. May be able to stop it. Check CMP, CBC, Fe+ and TIBC to see if he still needs iron supplement. Await PET scan results. F/U with specialists. All other medications reviewed and are medically necessary. ELECTRONICALLY SIGNED BY: Jozef Franklin DO documented in this encounterWexner [facility] Center11-12-2024 History of Present illness Narrative* Orion Etienne MD - 12/26/2023 9:30 AM EST History of Present Illness Hilary Maldonado was seen in January 2023 at [...] was felt that it was probably metastatic. Physical Exam Examination of the wound shows the area to be significantly crusted. This was cleaned out and bacitracin was applied over the area. 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 It is most likelymetastatic. A CT scan of his neck, chest, and a PET scan should be obtained. Significantly crusted wound post a parotidectomy. This should be cleaned on a daily basis with the peroxide and bacitracin applied to the area. I will see him in 2 months. documented in this [facility] Work Phone: 1(245) 807-907310-21-2024 [id number] AP INTRAOPERATIVE CONSULTATION [facility] [id number] History of Present illness Narrative* Jozef Franklin DO - 11/28/2023 2:00 PM EDT Patient Name: Hilary Maldonado Date of : 1945 Date of Service: 11/28/2023 Facility: [facility] Type of Visit: Skilled Visit Subjective Hilary Maldonado is a 78 y.o. male seen today at detention facility for therapy visit. Vidal is in therapy but they are planning to discharge him this week. He had his surgery last week upin [place]. They removed a mass from his left parotid gland. He does not know if it was cancer ornot. He denies pain. There does not seem to be any complications. Allergies: Patient has no allergy information on record. Code Status: FULL CODE BP 118/66 Pulse 68 Temp 36.8 C (98.2 F) Resp 18 Wt 88.5 kg (195 lb) SpO2 95% BMI 25.04 kg/m Physical Exam Constitutional: General: He is not in acute distress. Appearance: He is not ill-appearing. Comments: In WC in room HENT: Head: Normocephalic. Jaw: There is normal jaw occlusion. Comments: Steri-Strips in place along the left side of his face in the preauricular area Cardiovascular: Rate and Rhythm: Normal rate and regular rhythm. Pulses: Normal pulses. Heart sounds: Normal heart sounds. No murmur heard. Pulmonary: Effort: Pulmonary effort is normal. No respiratory distress. Breath sounds: Normal breath sounds. No wheezing, rhonchi or rales. Abdominal: General: Bowel sounds are normal. Palpations: Abdomen is soft. Tenderness: There is no abdominal tenderness. Musculoskeletal: Cervical back: Neck supple. Lymphadenopathy: Cervical: No cervical adenopathy. Skin: General: Skin is warm. Neurological: General: No focal deficit present. Mental Status: He is alert and oriented to person, place, and time. Psychiatric: Attention and Perception: Attention normal. Mood and Affect: Mood normal. Behavior: Behavior normal. Behavior is cooperative. Thought Content: Thought content normal. Summary / Assessment / Plan 1. Parotid mass 2. 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 Primary osteoarthritis of both knees Await for pathology report from [place] to determine next course of action if any. Continue therapy to reach maximum improvement. Continue current regimen. All medications reviewed and are medically necessary. ELECTRONICALLY SIGNED BY: Jozef Franklin DO documented in this encounterWexner Medical Center10-11-2024 Hospital course Narrative* Shaniqua Correa, [employer] COACH-PUBLIC HEALTH EDUCATOR - 11/24/2023 10:28 AM EDT Discharge Diagnosis Malignant neoplasm of parotid gland (Multi) Issues Requiring Follow-Up Post op visit Test Results Pending At Discharge Pending Labs Order Current Status Surgical Pathology Exam In process Hospital Course Hilary Maldonado is a 78 y.o. male with a left parotid mass, who presented for Left superficial parotidectomy by Dr Etienne on 12/01. Patient had an uncomplicated surgical course. Patient recovered in PACU and was transferred to [facility] for post-operative care. Patient post-operative course was uncomplicated. He tolerated a diet throughout and his drain was pulled on POD 2. On day of discharge, post-operative pain was well controlled with enteral pain medication, breathing on room air, voiding spontaneously ambulating well, and was tolerating a diet. Follow-up arranged. Pertinent Physical Exam At Time of Discharge Physical Exam Vitals reviewed in EMR Gen: NAD, AOx3, resting comfortably in bed Eyes: Sclera clear, Ears: Normal external ears bilaterally Nose: No rhinorrhea; anterior nares clear Oral Cavity: Normal lips, moist mucous membranes Head: normocephalic, atraumatic Face/neck: Incision with Steri-Strips in place, c/d/I, soft and flat, no active bleeding or oozing,no signs of fluid collection or hematoma Resp: Nonlabored breathing on 2 L/min Cards: Regular rate per telemetry Gastro: Soft, non-distended, : Voids MSK: Wheelchair dependent Psych: Appropriate mood and affect Drains: All drains removed Home Medications Medication List START taking these medications ibuprofen 400 mg tablet; Take 1 tablet (400 mg) by mouth every 6 hours if needed for mild pain (1 - 3) or moderate pain (4 - 6) for up to 10 days. CHANGE how you take these medications acetaminophen 325 mg tablet; Commonly known as: Tylenol; Take 2 tablets (650 mg) by mouth every 6 hours if needed for mild pain (1 - 3) or moderate pain (4 - 6) for up to 14 days.; What changed: when to take this, reasons to take this, additional instructions CONTINUE taking these medications allopurinol 300 mg tablet; Commonly known as: Zyloprim ARIPiprazole 5 mg tablet; Commonly known as: Abilify ascorbic acid 500 mg ER capsule; Commonly known as: Vitamin C aspirin 81 mg EC tablet atorvastatin 10 mg tablet; Commonly known as: Lipitor calcium carbonate 500 mg calcium (1,250 mg) tablet; Commonly known as: Oscal carvedilol 3.125 mg tablet; Commonly known as: Coreg cholecalciferol 10 MCG (400 UNIT) tablet; Commonly known as: Vitamin D-3 docusate sodium 100 mg capsule; Commonly known as: Colace ferrous sulfate 325 (65 Fe) MG EC tablet furosemide 40 mg tablet; Commonly known as: Lasix mirtazapine 30 mg tablet; Commonly known as: Remeron multivitamin tablet pantoprazole 40 mg EC tablet; Commonly known as: ProtoNix potassium chloride CR 10 mEq ER tablet; Commonly known as: Klor-Con pregabalin 100 mg capsule; Commonly known as: Lyrica tamsulosin 0.4 mg 24 hr capsule; Commonly known as: Flomax vortioxetine 10 mg tablet tablet; Commonly known as: Trintellix Outpatient Follow-Up Future Appointments Date Time Provider Department Center 12/08/2023 11:30 AM Orion Etienne MD [address] 05/01/2024 2:50 PM Manjinder Galloway MD [id number] [place]ep[place] documented in this [facility] Work Phone: 1(679) 629-334510-11-2024 Hospital Note* Hospital Course - Leon Don MD - 11/24/2023 8:11 AM EDT Hilary Maldonado is a 78 y.o. male with a left parotid mass, who presented for Left superficial parotidectomy by Dr Etienne on 12/01. Patient had an uncomplicated surgical course. Patient recovered in PACU and was transferred to [facility] for post-operative care. Patient post-operative course was uncomplicated. He tolerated a diet throughout and his drain was pulled on POD 2. On day of discharge, post-operative pain was well controlled with enteral pain medication, breathing on room air, voiding spontaneously ambulating well, and was tolerating a diet. Follow-up arranged. [facility] Work Phone: 1(466) 725-415210-11-2024 Miscellaneous Notes* Hospital Course - Leon Don MD - 11/24/2023 8:11 AM EDT Hilary Maldonado is a 78 y.o. male with a left parotid mass, who presented for Left superficial parotidectomy by Dr Etienne on 12/01. Patient had an uncomplicated surgical course. Patient recovered in PACU and was transferred to [facility] for post-operative care. Patient post-operative course was uncomplicated. He tolerated a diet throughout and his drain was pulled on POD 2. On day of discharge, post-operative pain was well controlled with enteral pain medication, breathing on room air, voiding spontaneously ambulating well, and was tolerating a diet. Follow-up arranged. * Care Plan - Bart Ramos RN - 11/24/2023 5:51 AM EDT Problem: Pain Goal: Takes deep breaths with improved pain control throughout the shift Outcome: Progressing Goal: Turns in bed with improved pain control throughout the shift Outcome: Progressing Goal: Walks with improved pain control throughout the shift Outcome: Progressing Goal: Performs ADL's with improved pain control throughout shift Outcome: Progressing Goal: Participates in PT with improved pain control throughout the shift Outcome: Progressing Goal: Free from opioid side effects throughout the shift Outcome: Progressing Goal: Free from acute confusion related to pain meds throughout the shift Outcome: Progressing Problem: Fall/Injury Goal: Not fall by end of shift Outcome: Progressing Goal: Be free from injury by end of the shift Outcome: Progressing Goal: Verbalize understanding of personal risk factors for fall in the hospital Outcome: Progressing Goal: Verbalize understanding of risk factor reduction measures to prevent injury from fall in the home Outcome: Progressing Goal: Use assistive devices by end of the shift Outcome: Progressing Goal: Pace activities to prevent fatigue by end of the shift Outcome: Progressing The patient's goals for the shift include pt will have improve GI functions The clinical goals for the shift include pt will remain safe and free from injury * Care Plan - Mingo Santo RN - 11/22/2023 11:00 PM EDT The patient's goals for the shift include pt will have improve GI functions The clinical goals for the shift include pt will nutritional intake Problem: Fall/Injury Goal: Not fall by end of shift Outcome: Progressing Problem: Pain Goal: Participates in PT with improved pain control throughout the shift Outcome: Progressing Problem: Pain Goal: Turns in bed with improved pain control throughout the shift Outcome: Progressing * Perioperative Nursing Note - Shy Kaminski RN - 11/22/2023 3:35 PM EDT 1535 Pt arrived to PACU, alert and able to answer questions and follow commands. Pt shows no signs of distress. Will continue to monitor. 1700 Pt stable. Report called to nurse on obdulia 5. Transport requested. 1715 Pt in route to room on obdulia 5 with all personal belongings. Pt stable. hSy Kaminski RN * Op Note - Orion Etienne MD - 11/22/2023 2:[address] [facility] - Operative Report Name: Hilary Maldonado Date of Procedure: 11/22/23 Location: [facility] Attending Surgeon: Orion Etienne MD Resident/Fellow: Yolanda Hackett Preoperative Diagnosis: Left parotid tumor Postoperative Diagnosis: Same Operative indications: This patient was seen back in January 2023 with a left parotid mass that was suspicious for malignancy. Because of some medical issues the surgical excision of this lesion was postponed. The patientis here today to have this done. Consent was obtained from the power of commercial real estate attorney. Regardless the patient was told about the surgery and the possible complications. This was especially related to the proximity of the facial nerve. Procedure: Left superficial parotidectomy. Operative procedure: With the patient under general anesthesia the patient was probably positioned and prepped and draped in usual sterile fashion. An incision was outlined extending from the preauricular area extending inferiorly around the ear lobule and extending from the ear anteriorly approximately 1 cm below the angle of the mandible. The incision was made and carried through the underlying soft tissue to the parotid fascia. An anterior flap was elevated in the plane of the gland. Posteriorly the external earcanal was freed from the gland. The sternocleidomastoid muscle and the posterior belly of the digastric muscle were dissected. Then dissecting between the tragal pointer and the insertion of the digastric the origin of the facial nerve was identified. From there the facial nerve was followed to mainly along its upper division cuts through the gland were made with the harmonic scalpel. The specimen was removed and oriented and sent for frozen section. 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 Itwas not felt anything further needed to be done. The wound was irrigated. Hemostasis was verified. A 7 mm drain was placed through a separate incision and fixed to the skin with 2-0 Prolene. The lower aspect of the parotid was rotated superiorly to close the defect and sutured in place with 3-0 Vicryl sutures. The wound was closed in 2 planes of subcutaneous plane with inverting 3-0 Vicryl sutureand the skin that with a running subcuticular 4-0 Monocryl. Steri-Strips were applied to the wound.The estimated blood loss was approximately 10 cc. The procedure was terminated and the patient was sent back to recovery room in fair condition. This is dictated on 11/22/2023. I was present for the entire procedure Orion Etienne MD documented in this [facility] Work Phone: 1(558) 117-621510-11-2024 Plan of care note* Care Plan - Bart Ramos RN - 11/24/2023 5:51 AM EDT Problem: Pain Goal: Takes deep breaths with improved pain control throughout the shift Outcome: Progressing Goal: Turns in bed with improved pain control throughout the shift Outcome: Progressing Goal: Walks with improved pain control throughout the shift Outcome: Progressing Goal: Performs ADL's with improved pain control throughout shift Outcome: Progressing Goal: Participates in PT with improved pain control throughout the shift Outcome: Progressing Goal: Free from opioid side effects throughout the shift Outcome: Progressing Goal: Free from acute confusion related to pain meds throughout the shift Outcome: Progressing Problem: Fall/Injury Goal: Not fall by end of shift Outcome: Progressing Goal: Be free from injury by end of the shift Outcome: Progressing Goal: Verbalize understanding of personal risk factors for fall in the hospital Outcome: Progressing Goal: Verbalize understanding of risk factor reduction measures to prevent injury from fall in the home Outcome: Progressing Goal: Use assistive devices by end of the shift Outcome: Progressing Goal: Pace activities to prevent fatigue by end of the shift Outcome: Progressing The patient's goals for the shift include pt will have improve GI functions The clinical goals for the shift include pt will remain safe and free from injury [facility]10-10-[facility]24 History of Present illness Narrative * Mariano Harmon, GEOVANNA - 11/23/2023 1:35 PM EDT 11/23/23 0700 Discharge Planning Living Arrangements Other (Comment) (Pt is a resident at [facility]) Support Systems (facility staff) Assistance Needed total Type of Residence senior living/residential care Number of Stairs to Enter Residence 3 Number of Stairs Within Residence 6 Do you have animals or pets at home? 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 Yes RoundTrip coordination needed? Yes Has discharge transport been arranged? No What day is the transport expected? 11/23/23 What time is the transport expected? 1100 Financial Resource Strain How hard is it for you to pay for the very basics like food, housing, medical care, and heating? Not hard Housing Stability In the last 12 months, was there a time when you were not able to pay the mortgage or rent on time?Pt Declined In the past 12 months, how many times have you moved where you were living? 0 At any time in the past 12 months, were you homeless or living in a fdc (including now)? N Transportation Needs In the past 12 months, has lack of transportation kept you from medical appointments or from getting medications? no In the past 12 months, has lack of transportation kept you from meetings, work, or from getting things needed for daily living? No Patient Choice Patient / Family choosing to utilize agency / facility established prior to hospitalization Yes SW met with pt to collect details for his discharge. Pt is a resident at [facility]. He was unsure whether the facility would provide transport back or if it had to be arranged by SW. SW sent a referral in [facility] to [facility]. Pt's wheelchair is bedside. SW put pt's transport request in [facility] will call in case facility cannot provide transport. SW will follow. GEOVANNA Martins 11/23/23- [facility] requested transport for 3pm however no one accepted. [facility] resubmitted and [facility] accepted ride for 830pm. [facility] canceled ride and attempted to resubmit. [facility] updated patients care team. Monique Salcedo RN [facility] 11/23/2023 1325 [facility] was unable to secure transport for pt today. SW called [facility] and transport was confirmed for tomorrow morning at 1130a. Pt is disappointed that he is unable to return home today. Facility notified. SW will follow. GEOVANNA Martins 11/23/2023 1350 Number for report: [phone], (ask for [place] nurse) will be sent to bedside nurse tomorrow morning. SW will follow. GEOVANNA Martins * Monique Roach RN - 11/23/2023 11:46 AM EDT 11/23/23 0700 Discharge Planning Living Arrangements Other (Comment) (Pt is a resident at [facility]) Support Systems (facility staff) Assistance Needed total Type of Residence senior living/residential care Number of Stairs to Enter Residence 3 Number of Stairs Within Residence 6 Do you have animals or pets at home? No Home or Post Acute Services Post acute facilities (Rehab/SNF/etc) Type of Post Acute Facility Services penitentiary care Expected Discharge Disposition Inter Does the patient need discharge transport arranged? Yes [facility] coordination needed? Yes Has discharge transport been arranged? No What day is the transport expected? 11/23/23 What time is the transport expected? 1100 Financial Resource Strain How hard is it for you to pay for the very basics like food, housing, medical care, and heating? Not hard Housing Stability In the last 12 months, was there a time when you were not able to pay the mortgage or rent on time?Pt Declined In the past 12 months, how many times have you moved where you were living? 0 At any time in the past 12 months, were you homeless or living in a fdc (including now)? N Transportation Needs In the past 12 months, has lack of transportation kept you from medical appointments or from getting medications? no In the past 12 months, has lack of transportation kept you from meetings, work, or from getting things needed for daily living? No Patient Choice Patient / Family choosing to utilize agency / facility established prior to hospitalization Yes SW met with pt to collect details for his discharge. Pt is a resident at [facility]. He was unsure whether the facility would provide transport back or if it had to be arranged by SW. SW sent a referral in [facility] to [facility]. Pt's wheelchair is bedside. SW put pt's transport request in [facility] will call in case facility cannot provide transport. SW will follow. Mariano Harmon [facility], MECHANICAL DETAILER 11/23/23- [facility] requested transport for 3pm however no one accepted. [facility] resubmitted and [facility] accepted ride for 830pm. [facility] canceled ride and attempted to resubmit. [facility] updated patients care team. Monique Sacledo RN [facility] * Shaniqua Correa APRN-PUBLIC HEALTH EDUCATOR - 11/23/2023 10:15 AM EDT Hilary Maldonado is a 78 y.o. male on day 0 of admission presenting with Malignant neoplasm of parotid gland (Multi). Subjective No acute events overnight. Patient this morning with questions concerning pathology and outcome of surgical findings. Patient educated that his surgeon was updated with his concerns, and his discharge is pending drain output on afternoon check. Objective Physical Exam Vitals reviewed in EMR Gen: NAD, AOx3, resting comfortably in bed Eyes: Sclera clear, Ears: Normal external ears bilaterally Nose: No rhinorrhea; anterior nares clear Oral Cavity: Normal lips, moist mucous membranes Head: normocephalic, atraumatic Face/neck: Incision with Steri-Strips in place, c/d/I, soft and flat, no active bleeding or oozing,no signs of fluid collection or hematoma Resp: Nonlabored breathing on 2 L/min Cards: Regular rate per telemetry Gastro: Soft, non-distended, : Voids MSK: Wheelchair dependent Psych: Appropriate mood and affect Drains: All drains in place and holding suction with serosanguinous drainage (stripped) Last Recorded Vitals Blood pressure 137/52, pulse 55, temperature 36.5 C (97.7 F), temperature source Temporal, resp. rate 16, height 1.88 m (6' 2 ), weight 88.5 kg (195 lb), SpO2 96%. Intake/Output last 3 Shifts: I/O last 3 completed shifts: In: 2553.2 (28.9 mL/kg) [P.O.:150; I.V.:2403.2 (27.2 mL/kg)] Out: 545 (6.2 mL/kg) [Urine:500 (0.2 mL/kg/hr); Drains:25; Blood:20] Weight: 88.5 kg Relevant Results Scheduled medications acetaminophen, 975 mg, oral, q8h EDWIGE Or acetaminophen, 1,000 mg, oral, q8h EDWIGE Or acetaminophen, 1,000 mg, g-tube, q8h EDWIGE ARIPiprazole, 5 mg, oral, Daily aspirin, 81 mg, oral, Daily atorvastatin, 10 mg, oral, Daily carvedilol, 3.125 mg, oral, BID heparin (porcine), 5,000 Units, subcutaneous, q8h mirtazapine, 30 mg, oral, Nightly pantoprazole, 40 mg, oral, Daily polyethylene glycol, 17 g, oral, Daily pregabalin, 100 mg, oral, TID tamsulosin, 0.4 mg, oral, Daily vortioxetine, 10 mg, oral, Daily Continuous medications lactated Ringer's, 50 mL/hr, Last Rate: 50 mL/hr (11/23/23 0551) PRN medications PRN medications: naloxone, oxyCODONE Assessment/Plan Assessment & Plan Malignant neoplasm of parotid gland (Multi) HTN (hypertension) Chronic renal impairment, stage 3 (moderate) (Multi) Benign prostatic hyperplasia without lower urinary tract symptoms Parotid mass Assessment: 78-year-old male with a left parotid mass now status post left superficial parotidectomy and left neck dissection with TAM drain placement on 11/22/[address] Etienne. 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 Dementia CAD Right carotid stenosis Ischemic cardiomyopathy GERD HTN HLD COPD BPH Anxiety PVD Tobacco use Overweight per BMI Plan: -Drains: Monitor output -Analgesia: Scheduled Acetaminophen, PRN Oxycodone -FEN: Regular diet ; monitor and replete electrolytes as needed -Pulm: wean oxygen to room air, -ID: No current interventions -Cardiac: Vitals Q4hr -Endo: No current intervention -GI: Bowel regimen, PPI, and PRN anti-emetic -: voids -Steroids/Special: No current interventions -Embolic PPx: SQH, SCDs while in bed -Dispo: Discharge planning pending afternoon drain check patient to return to 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 I spent 35 minutes in the professional and overall care of this patient. Shaniqua Correa APRN, PUBLIC HEALTH EDUCATOR Certified Family Nurse Practitioner Nurse Practitioner III Department of Otolaryngology: Head & Neck Surgery Personal Pager [phone] ENT Team Head and Neck Phone: [phone] * Mariano Harmon, GEOVANNA - 11/23/2023 7:04 AM EDT 11/23/23 0700 Discharge Planning Living Arrangements Other (Comment) (Pt is a resident at [facility]) Support Systems (facility staff) Assistance Needed total Type of Residence senior living/residential care Number of Stairs to Enter Residence 3 Number of Stairs Within Residence 6 Do you have animals or pets at home? No Home or Post Acute Services Post acute facilities (Rehab/SNF/etc) Type of Post Acute Facility Services penitentiary care Expected Discharge Disposition Inter Does the patient need discharge transport arranged? Yes [facility] coordination needed? Yes Has discharge transport been arranged? No What day is the transport expected? 11/23/23 What time is the transport expected? 1100 Financial Resource Strain How hard is it for you to pay for the very basics like food, housing, medical care, and heating? Not hard Housing Stability In the last 12 months, was there a time when you were not able to pay the mortgage or rent on time?Pt Declined In the past 12 months, how many times have you moved where you were living? 0 At any time in the past 12 months, were you homeless or living in a fdc (including now)? N Transportation Needs In the past 12 months, has lack of transportation kept you from medical appointments or from getting medications? no In the past 12 months, has lack of transportation kept you from meetings, work, or from getting things needed for daily living? No Patient Choice Patient / Family choosing to utilize agency / facility established prior to hospitalization Yes SW met with pt to collect details for his discharge. Pt is a resident at [facility]. He was unsure whether the facility would provide transport back or if it had to be arranged by SW. SW sent a referral in [facility] to [facility]. Pt's wheelchair is bedside. SW put pt's transport request in [facility] will call in case facility cannot provide transport. SW will follow. GEOVANNA Martins [facility] Work Phone: 1(262) 197-783210-10-2024 Hospital Discharge instructions* Discharge Instructions* Yolanda Hackett MD - 11/23/2023 6:02 AM EDT [facility] DEPARTMENT OF OTOLARYNGOLOGY (ENT): PAROTIDECTOMY POST-OPERATIVE INSTRUCTIONS Operations performed: Parotidectomy Treatment/wound care: Keep area(s) clean and dry. It is okay to shower 48 hours after time of surgery. Do not scrub wound(s), pat dry. Do not submerge wound(s) in standing water until seen in followup (no tub bathing, swimming, or hottubs). Please visually inspect your wound(s) at least once daily. If the wound(s) are in a difficult to see location, please use a mirror or have someone else assist with visual inspection. If you have sutures that you can see outside of the skin or sanjay: Please have sanjay/sutures removed in our clinic 10-14 days after the date of surgery. Do not remove the sanjay/sutures on your own. Return sooner or call if wound(s) or surrounding area have increased swelling, pain, warmth, redness, or drainage that is thick, yellow and/or green. If you see white bandages on your neck: You have steri strips (small paper tape) along your incision. You can shower, pat dry; do not soak in a tub. The steri strips will fall off on their own; do not peel them off. Expected Post-Surgical Symptoms: You may experience neck pain and a hoarse/weak voice. These symptoms are often temporary and may bedue to irritation from the breathing tube that's inserted during surgery. Swallowing difficulties due to pain for several days. You may also experience some weakness of the motion of your face. This is most likely temporary andwill be monitored closely by your surgeon. You can expect function to return within several weeks but may take up to 6-12 months for full recovery in some cases. In some cases, the nerve that controls motion in your face has to be surgical removed, if this is the case the function will not return on that side and other procedures can be performed in the future for facial rehabilitation. Your surgeon will discuss this with you if removal was necessary during your procedure. Pain Control: Adequate management: Alternate taking either acetaminophen or ibuprofen every 3 hours as needed forpain. For example, take acetaminophen at 9:00, followed by ibuprofen at 12:00, followed by acetaminophen at 3:00, etc. Tramadol or oxycodone (if prescribed) can be taken as prescribed as needed for breakthrough pain. Activity after Discharge: When you go home, you can usually return to your regular activities. Avoid strenuous activities, such as bicycle riding, jogging, weight lifting, or aerobic exercise, for at least 2 weeks. No travelling for at least 7 days following surgery. Do not drive or operate heavy machinery while taking narcotic pain medications as these medicationscan alter perception, impair judgement, and slow reaction times. Diet: resume normal diet Additional Instructions: Medicines DO NOT take blood thinners, such as warfarin (Coumadin), clopidogrel (Plavix), or aspirin until instructed to do so from your surgeon. Do not take aspirin, medicines that contain aspirin, or non-steroidal anti- inflammatory medicines such as ibuprofen (Advil, Motrin) or naproxen (Aleve) for 2 weeks after surgery unless otherwise directed by your doctor. Take pain medicines exactly as directed. If you are prescribed antibiotics, take them as directed. Do not stop taking them just because you feel better. You need to take the full course of antibiotics. documented in this [facility] Work Phone: 1(505) 432-438810-09-2024 Plan of care note* Care Plan - Mingo Santo RN - 11/22/2023 11:00 PM EDT The patient's goals for the shift include pt will have improve GI functions The clinical goals for the shift include pt will nutritional intake Problem: Fall/Injury Goal: Not fall by end of shift Outcome: Progressing Problem: Pain Goal: Participates in PT with improved pain control throughout the shift Outcome: Progressing Problem: Pain Goal: Turns in bed with improved pain control throughout the shift Outcome: Progressing [facility] Work Phone: 1(859) 856-979310-09-2024 Note* Perioperative Nursing Note - Shy Kaminski RN - 11/22/2023 3:35 PM EDT 1535 Pt arrived to PACU, alert and able to answer questions and follow commands. Pt shows no signs of distress. Will continue to monitor. 1700 Pt stable. Report called to nurse on obdulia 5. Transport requested. 1715 Pt in route to room on obdulia 5 with all personal belongings. Pt stable. Shy Kaminski RN [facility]10-09-2024 Note* Op Note - Orion Etienne MD - 11/22/2023 2:[address] [facility] - Operative Report Name: Hilary Maldonado Date of Procedure: 11/22/23 Location: [facility] Attending Surgeon: Orion Etienne MD Resident/Fellow: Yolanda Hackett Preoperative Diagnosis: Left parotid tumor Postoperative Diagnosis: Same Operative indications: This patient was seen back in January 2023 with a left parotid mass that was suspicious for malignancy. Because of some medical issues the surgical excision of this lesion was postponed. The patientis here today to have this done. Consent was obtained from the power of commercial real estate attorney. Regardless the patient was told about the surgery and the possible complications. This was especially related to the proximity of the facial nerve. Procedure: Left superficial parotidectomy. Operative procedure: With the patient under general anesthesia the patient was probably positioned and prepped and draped in usual sterile fashion. An incision was outlined extending from the preauricular area extending inferiorly around the ear lobule and extending from the ear anteriorly approximately 1 cm below the angle of the mandible. The incision was made and carried through the underlying soft tissue to the parotid fascia. An anterior flap was elevated in the plane of the gland. Posteriorly the external earcanal was freed from the gland. The sternocleidomastoid muscle and the posterior belly of the digastric muscle were dissected. Then dissecting between the tragal pointer and the insertion of the digastric the origin of the facial nerve was identified. From there the facial nerve was followed to mainly along its upper division cuts through the gland were made with the harmonic scalpel. The specimen was removed and oriented and sent for frozen section. 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 Itwas not felt anything further needed to be done. The wound was irrigated. Hemostasis was verified. A 7 mm drain was placed through a separate incision and fixed to the skin with 2-0 Prolene. The lower aspect of the parotid was rotated superiorly to close the defect and sutured in place with 3-0 Vicryl sutures. The wound was closed in 2 planes of subcutaneous plane with inverting 3-0 Vicryl sutureand the skin that with a running subcuticular 4-0 Monocryl. Steri-Strips were applied to the wound.The estimated blood loss was approximately 10 cc. The procedure was terminated and the patient was sent back to recovery room in fair condition. This is dictated on 11/22/2023. I was present for the entire procedure Orion Etienne MD [facility] Work Phone: 1(591) 651-311210-09-2024 Attending History and physical note* Yolanda Hackett MD - 11/22/2023 11:50 AM EDT H&P reviewed. The patient was examined and there are no changes to the H&P. Source Note - Orion Etienne MD - 10/24/2023 12:15 PM EDT History of Present Illness Hilary Maldonado was seen in January 2023 at the request of his radiation oncologist. He was found to have a left parotid mass. A biopsy was done in November 2022. It was suspicious for malignancy. The patient really does not seem to have any discomfort related to this mass. He had been set up for surgery in the past but had some medical issues and now is reconsidering that. Physical Exam Palpation of the parotid, neck, and thyroid field is negative except for this 2- 1/2 cm lesion in the area of the left parotid. The facial nerve function is normal. Assessment and Plan Left parotid tumor in a patient that has significant cardiac issues. The pathology was reviewed andshowed some squamous cells. A firm diagnosis of malignancy was not established. We will set him up for a left parotidectomy with a possible abdominal fat graft. He is told about the surgery and the possible complications especially in relation to the proximity of the facial nerve. He wishes to proceed. He will need to see our colleagues in cardiology and preop to make sure that he is a candidate for surgery. [facility] Work Phone: 1(250) 770-926810-09-2024 History and physical note* Yolanda Hackett MD - 11/22/2023 11:50 AM EDT H&P reviewed. The patient was examined and there are no changes to the H&P. Source Note - Orion Etienne MD - 10/24/2023 12:15 PM EDT History of Present Illness Hilary Maldonado was seen in January 2023 at the request of his radiation oncologist. He was found to have a left parotid mass. A biopsy was done in November 2022. It was suspicious for malignancy. The patient really does not seem to have any discomfort related to this mass. He had been set up for surgery in the past but had some medical issues and now is reconsidering that. Physical Exam Palpation of the parotid, neck, and thyroid field is negative except for this 2- 1/2 cm lesion in the area of the left parotid. The facial nerve function is normal. Assessment and Plan Left parotid tumor in a patient that has significant cardiac issues. The pathology was reviewed andshowed some squamous cells. A firm diagnosis of malignancy was not established. We will set him up for a left parotidectomy with a possible abdominal fat graft. He is told about the surgery and the possible complications especially in relation to the proximity of the facial nerve. He wishes to proceed. He will need to see our colleagues in cardiology and preop to make sure that he is a candidate for surgery. documented in this [facility] Work Phone: 1(612) 524-582910-04-2024 History of Present illness Narrative* Jozef Franklin DO - 11/17/2023 11:59 PM EDT Patient Name: Hilary Maldonado Date of : 1945 Date of Service: 11/17/2023 Facility: [facility] Type of Visit: Skilled Visit Subjective Hilary Maldonado is a 78 y.o. male [facility]. Vidal is in therapy. He was authorized to have 10 visit. He has no new problems to report. He is having a left parotid mass removed next week. He has pre-op labs and his glucose was 39. He had it repeated and it was 87. He is on abilify which can lower glucose. He is not a diabetic. He was asymptomatic. He doesn't recall any symptoms. Allergies: Patient has no allergy information on record. Code Status: FULL CODE BP 128/73 Pulse 60 Physical Exam Constitutional: General: He is not in acute distress. Appearance: He is not ill-appearing. Comments: In WC in room HENT: Head: Normocephalic. Comments: Firm mass in left parotid gland Eyes: General: No scleral icterus. Extraocular Movements: Extraocular movements intact. Conjunctiva/sclera: Conjunctivae normal. Cardiovascular: Rate and Rhythm: Normal rate and regular rhythm. Pulses: Normal pulses. Heart sounds: Normal heart sounds. No murmur heard. Pulmonary: Effort: Pulmonary effort is normal. No respiratory distress. Breath sounds: Normal breath sounds. No wheezing, rhonchi or rales. Abdominal: General: Bowel sounds are normal. Palpations: Abdomen is soft. Tenderness: There is no abdominal tenderness. Musculoskeletal: Cervical back: Neck supple. Lymphadenopathy: Cervical: No cervical adenopathy. Skin: General: Skin is warm. Neurological: General: No focal deficit present. Mental Status: He is alert and oriented to person, place, and time. Psychiatric: Attention and Perception: Attention normal. Mood and Affect: Mood normal. Behavior: Behavior normal. Behavior is cooperative. Thought Content: Thought content normal. Summary / Assessment / Plan 1. Parotid mass 2. 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 Encephalopathy, unspecified type He had hypoglycemia on pre-op testing but normal on follow up. His abilify can cause that so I willhold it the day of surgery. He is otherwise medically cleared for surgery. Continue therapy to maximize independence with ADLs. All medications reviewed and are medically necessary. ELECTRONICALLY SIGNED BY: Jozef Franklin DO documented in this encounter[facility] CenterPersyst[facility] [id number] History of Present illness Narrative* Jozef Franklin DO - 11/07/2023 11:59 PM EDT Patient Name: Hilary Maldonado Date of : 1945 Date of Service: 11/07/2023 Facility: [facility] Type of Visit: Skilled Visit Subjective Hilary Maldonado is a 78 y.o. male seen today at [facility] facility for therapy visit. No new problems reported by staff or patient. He is in therapy to increase strength, endurance and maximize independence with self care and mobility. Allergies: Patient has no allergy information on record. Code Status: FULL CODE BP 152/78 Pulse 66 Physical Exam Constitutional: General: He is not in acute distress. Comments: In WC in room HENT: Head: Normocephalic. Eyes: General: No scleral icterus. Extraocular Movements: Extraocular movements intact. Conjunctiva/sclera: Conjunctivae normal. Cardiovascular: Rate and Rhythm: Normal rate and regular rhythm. Pulses: Normal pulses. Heart sounds: Normal heart sounds. No murmur heard. Pulmonary: Effort: Pulmonary effort is normal. No respiratory distress. Breath sounds: Normal breath sounds. No wheezing, rhonchi or rales. Abdominal: General: Bowel sounds are normal. Palpations: Abdomen is soft. Tenderness: There is no abdominal tenderness. Neurological: General: No focal deficit present. Mental Status: He is alert and oriented to person, place, and time. Psychiatric: Attention and Perception: Attention normal. Mood and Affect: Mood normal. Behavior: Behavior normal. Behavior is cooperative. Thought Content: Thought content normal. Summary / Assessment / Plan 1. Encephalopathy, unspecified type 2. Generalized anxiety disorder 3. Adult failure to thrive 4. Chronic obstructive pulmonary disease, unspecified COPD type (CMS-HCC) 5. Hypertension, essential He was authorized for 10 PT visits to maximize strength and endurance. Continue current regimen. All medications reviewed and are medically necessary. ELECTRONICALLY SIGNED BY: Jozef Franklin DO documented [facility] History of Present illness Narrative* Manjinder Galloway MD - 11/07/2023 3:50 PM EDT Eldon Maldonado is a 78 y.o. male Chief Complaint Follow-up HPI Patient is here for follow-up to management for coronary artery disease and for preoperative risk assessment for resection of a parotid gland tumor. Patient is accompanied by his guardian. He is poorhistorian. He is very sedentary. He mainly in wheelchair. His cardiac status has been stable. Thereis no recent complaint of chest pain or palpitation. His last ischemic evaluation was last year where he underwent stress test showed no evidence of myocardial ischemia but presence of myocardial infarction. His echocardiogram showed LVEF around 45%. The patient had no active cardiac symptoms. Assessment 1. Two-vessel coronary artery disease with known occlusion of the RCA and remote PCI to the left circumflex. Recent stress test showed no ischemia and mild to moderate size myocardial infarction. Patient appears to be stable 2. Sedentary lifestyle. Patient denies any shortness of breath. LVEF around 45% 3. Patient with documented occlusion of his his left carotid and moderate disease of the right carotid 4. Ischemic cardiomyopathy with LVEF around 45% 5. Hyperlipidemia 6. Patient requested preoperative risk assessment for possible resection of left parotid tumor Plan 1. Patient is on good medical therapy for ischemic heart disease including aspirin, beta-blockers and statin 2. I discussed his operative risk with his guardian. Based on his recent stress test and echocardiogram and lack of cardiac symptoms his operative risk is acceptable. He does have increased risk for neuro/vascular complication due to known bilateral carotid disease but I believe his surgical risk is not prohibitive 3. Continue present medical regimen 4. I reviewed his recent echo and a stress test 5. Patient was counseled regarding risk factor modification 6. Will see him back in 9 months and follow-up Review of Systems Musculoskeletal: Knee pain All other systems reviewed and are negative. Vitals: 11/07/23 1609 BP: 138/68 BP Location: Left arm Patient Position: Sitting Pulse: 58 Height: 1.829 m (6') EKG done in office today Objective Physical Exam Constitutional: Appearance: Normal appearance. HENT: Nose: Nose normal. Neck: Vascular: No carotid bruit. Cardiovascular: Rate and Rhythm: Normal rate. Pulses: Normal pulses. Heart sounds: Normal heart sounds. Pulmonary: Effort: Pulmonary effort is normal. Abdominal: General: Bowel sounds are normal. Palpations: Abdomen is soft. Musculoskeletal: General: Normal range of motion. Cervical back: Normal range of motion. Right lower leg: No edema. Left lower leg: No edema. Skin: General: Skin is warm and dry. Neurological: General: No focal deficit present. Mental Status: He is alert. Psychiatric: Mood and Affect: Mood normal. Behavior: Behavior normal. Thought Content: Thought content normal. Judgment: Judgment normal. Allergies Altace [ramipril], [id number] [nutritional supplement-fiber], Morphine, Cusseta flavor, and Egg Current Medications Current Outpatient Medications: acetaminophen (Tylenol 8 HOUR) 650 mg ER tablet, Take 1 tablet (650 mg) by mouth every 8 hours if needed for mild pain (1 - 3). Do not crush, chew, or split., Disp: , Rfl: allopurinol (Zyloprim) 300 mg tablet, Take 1 tablet (300 mg) by mouth once daily., Disp: , Rfl: ARIPiprazole (Abilify) 5 mg tablet, Take 1 tablet (5 mg) by mouth once daily., Disp: , Rfl: ascorbic acid (Vitamin C) 500 mg ER capsule, Take 1 capsule (500 mg) by mouth twice a day., Disp: ,Rfl: aspirin 81 mg EC tablet, Take 1 tablet (81 mg) by mouth once daily., Disp: , Rfl: atorvastatin (Lipitor) 10 mg tablet, Take 1 tablet (10 mg) by mouth once daily., Disp: , Rfl: calcium carbonate (Oscal) 500 mg calcium (1,250 mg) tablet, Take 1 tablet (1,250 mg) by mouth twicea day., Disp: , Rfl: carvedilol (Coreg) 3.125 mg tablet, Take by mouth 2 times a day with meals., Disp: , Rfl: cholecalciferol (Vitamin D-3) 400 unit capsule, Take 1 capsule (10 mcg) by mouth once daily., Disp:, Rfl: docusate sodium (Colace) 100 mg capsule, Take 1 capsule (100 mg) by mouth 2 times a day., Disp: , Rfl: ferrous sulfate 325 (65 Fe) MG EC tablet, Take 65 mg by mouth every other day. Do not crush, chew, or split., Disp: , Rfl: furosemide (Lasix) 40 mg tablet, Take 1 tablet (40 mg) by mouth once daily., Disp: , Rfl: mirtazapine (Remeron) 30 mg tablet, 1 tablet (30 mg) once daily at bedtime., Disp: , Rfl: multivitamin tablet, Take 1 tablet by mouth once daily., Disp: , Rfl: pantoprazole (ProtoNix) 40 mg EC tablet, Take 1 tablet (40 mg) by mouth early in the morning.., Disp: , Rfl: potassium chloride CR 10 mEq ER tablet, Take 1 tablet (10 mEq) by mouth once daily. Do not crush, chew, or split., Disp: , Rfl: pregabalin (Lyrica) 100 mg capsule, Take 1 capsule (100 mg) by mouth 3 times a day., Disp: , Rfl: tamsulosin (Flomax) 0.4 mg 24 hr capsule, Take 1 capsule (0.4 mg) by mouth once daily., Disp: , Rfl: vortioxetine (Trintellix) 10 mg tablet tablet, Take 1 tablet (10 mg) by mouth once daily., Disp: , Rfl: Assessment/Plan 1. Two-vessel coronary artery disease Follow Up In Cardiology ECG 12 Lead 2. Mixed hyperlipidemia 3. Ischemic cardiomyopathy 4. Carotid stenosis, right 5. Pre-operative cardiovascular examination ECG 12 Lead 6. Shortness of breath 7. Former smoker Scribe Attestation By signing my name below, I, Ingris Coronel LPN, Scribe attest that this documentation has been prepared under the direction and in the presence of MD Kelly. Provider Attestation - Scribe documentation All medical record entries made by the Scribe were at my direction and personally dictated by me. Ihave reviewed the chart and agree that the record accurately reflects my personal performance of the history, physical exam, discussion and plan. [facility] Work Phone: [phone] Instructions* Patient Instructions* Ingris Garzon LPN - 11/07/2023 3:50 PM EDT Please bring all medicines, vitamins, and herbal supplements with you when you come to the office. Prescriptions will not be filled unless you are compliant with your follow up appointments or have a follow up appointment scheduled as per instruction of your physician. Refills should be requested at the time of your visit. Fall Prevention Education Given Hilary Maldonado is clear for surgery from a cardiac standpoint Can hold aspirin one week prior documented in this encounterEast [facility] Work Phone: [phone] 758-373409-17-2024 History of Present illness Narrative* Jozef Franklin, - 10/31/2023 11:59 PM EDT Patient Name: Hilary Maldonado Date of : 1945 Date of Service: 10/31/2023 Facility: [facility] Type of Visit: Admission H&P Subjective Hilary Maldonado is a 78 y.o. male seen today at detention facility for admission H&P. Paper H&P reviewed and updated. Please see for details. Here for long-term care. No new problems reported. Allergies: Patient has no allergy information on record. Code Status: FULL CODE The following portions of the patient's history were reviewed and updated as appropriate: allergies, current medications, past family history, past medical history, past social history, past surgicalhistory, problem list, and medication reconciliation was completed including current medication andpost discharge medication. BP 112/68 Pulse 68 Temp (!) 35.9 C (96.6 F) Resp 18 Ht 188 cm (6' 2 ) Wt 88.7 kg (195 lb 8 oz) BMI 25.10 kg/m Physical Exam See H&P Assessment/Plan Summary / Assessment / Plan 1. Chronic obstructive pulmonary disease, unspecified COPD type ([facility]) 2. 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 Adult failure to thrive 4. Atherosclerosis of [place] coronary artery of [place] heart without angina pectoris 5. Polyarthritis 6. Hypertension, essential 7. Degenerative disease of nervous system ([facility]) 8. Encephalopathy, unspecified 9. Ischemic cardiomyopathy 10. Other diseases of salivary glands 11. Primary osteoarthritis of both knees 12. Gastroesophageal reflux disease without esophagitis 13. Hyperlipidemia, unspecified hyperlipidemia type 14. Generalized anxiety disorder 15. Allergic rhinitis, unspecified seasonality, unspecified trigger 16. Dysphagia, unspecified type 17. Nicotine dependence, cigarettes, uncomplicated 18. Peripheral vascular disease, unspecified ([facility]) 19. Occlusion and stenosis of right carotid artery 20. Major depressive disorder, single episode, severe without psychotic features ([facility]) 21. Gout, unspecified cause, unspecified chronicity, unspecified site 22. Insomnia, unspecified type Admit to [facility] for long-term care. Full code. Continue current regimen. ELECTRONICALLY SIGNED BY: Jozef Franklin DO documented [facility] History of Present illness Narrative* Orion Etienne MD - 10/24/2023 12:15 PM EDT History of Present Illness Hilary Maldonado was seen in January 2023 at the request of his radiation oncologist. He was found to have a left parotid mass. A biopsy was done in November 2022. It was suspicious for malignancy. The patient really does not seem to have any discomfort related to this mass. He had been set up for surgery in the past but had some medical issues and now is reconsidering that. Physical Exam Palpation of the parotid, neck, and thyroid field is negative except for this 2- 1/2 cm lesion in the area of the left parotid. The facial nerve function is normal. Assessment and Plan Left parotid tumor in a patient that has significant cardiac issues. The pathology was reviewed andshowed some squamous cells. A firm diagnosis of malignancy was not established. We will set him up for a left parotidectomy with a possible abdominal fat graft. He is told about the surgery and the possible complications especially in relation to the proximity of the facial nerve. He wishes to proceed. He will need to see our colleagues in cardiology and preop to make sure that he is a candidate for surgery. documented in this encounterEast [facility] Work Phone: [phone] History of Present illness Narrative* Zelda Mendez NP - 10/11/2023 11:40 AM EDT Images from the original note were not included. Subjective : Chief Complaint: Hilary Maldonado is an 78 y.o. male here for an annual wellness visit. I have reviewed and reconciled the history and medication list with the patient today. Current Outpatient Medications Medication Sig Dispense Refill acetaminophen (Tylenol 8 Hour) 650 MG ER tablet Take 650 mg by mouth every 8 (eight) hours if needed for mild pain Do not crush, chew, or split. allopurinol (Zyloprim) 300 MG tablet Take 1 tablet (300 mg) by mouth in the morning. 90 tablet 3 ARIPiprazole (Abilify) 5 MG tablet Take 1 tablet (5 mg) by mouth in the morning. 30 tablet 5 ascorbic acid (Vitamin C) 500 MG ER capsule Take 500 mg by mouth in the morning and 500 mg before bedtime. aspirin (Yunior Low Dose) 81 MG EC tablet Take 81 mg by mouth in the morning. atorvastatin (Lipitor) 10 MG tablet Take 1 tablet (10 mg) by mouth in the morning. 90 tablet 3 carvedilol (Coreg) 3.125 MG tablet Take 1 tablet (3.125 mg) by mouth in the morning and 1 tablet (3.125 mg) in the evening. Take with meals. 180 tablet 3 cholecalciferol (Vitamin D-3) 10 MCG (400 UNIT) capsule Take 400 Units by mouth Daily Docusate Sodium (DSS) 100 MG capsule Take 1 capsule by mouth Daily as needed. ferrous sulfate 325 (65 Fe) MG tablet Take 325 mg by mouth every other day furosemide (Lasix) 40 MG tablet Take 40 mg by mouth Daily mirtazapine (Remeron) 30 MG tablet Take 1 tablet (30 mg) by mouth at bedtime 90 tablet 1 multivitamin (Theragran) tablet Take 1 tablet by mouth Daily Oyster Shell 500 MG tablet Take 1 tablet by mouth in the morning and 1 tablet before bedtime. pantoprazole (ProtoNix) 40 MG EC tablet Take 40 mg by mouth in the morning. Take before meals. pregabalin (Lyrica) 100 MG capsule Take 1 capsule (100 mg) by mouth in the morning and 1 capsule (100 mg) before bedtime. 180 capsule 1 tamsulosin (Flomax) 0.4 MG 24 hr capsule Take 1 capsule (0.4 mg) by mouth in the morning. 90 capsule 3 Vortioxetine HBr (Trintellix) 10 MG tablet Take 1 tablet by mouth in the morning. 90 tablet 3 potassium chloride CR (Klor-Con M10) 10 MEQ ER tablet Take 10 mEq by mouth Daily Do not crush or chew. No current facility-administered medications for this visit. Review of Systems All other systems reviewed and are negative. List of current healthcare providers: Patient Care Team: Raheem Ambrosio DO as PCP - General (Family Medicine) Raheem Ambrosio DO as PCP - ACO [employer] Medicare Annual Visit Over the past 2 weeks, how often have you been bothered by any of the following problems? Little interest or pleasure in doing things: Not at all Feeling down, depressed, or hopeless: Not at all Patient Health Questionnaire-2 Score: 0 Over the past 2 weeks, how often have you been bothered by any of the following problems? Trouble falling or staying asleep, or sleeping too much: Not at all Feeling tired or having little energy: Not at all Poor appetite or overeating: Not at all Feeling bad about yourself - or that you are a failure or have let yourself or your family down: Not at all Trouble concentrating on things, such as reading the newspaper or watching television: Not at all Moving or speaking so slowly that other people could have noticed? Or the opposite - being so fidgety or restless that you have been moving around a lot more than usual.: Not at all Thoughts that you would be better off or hurting yourself in some way: Not at all Patient Health Questionnaire-9 Score: 0 [place] Fall Risk History of Falling, Immediate or Within 3 Months: Yes Secondary Diagnosis: Yes Ambulatory Aid: Crutches/cane/walker Intravenous Therapy/Heparin Lock: No Gait/Transferring: Impaired Mental Status: Forgets limitations [place] Fall Risk Score: 90 Health Risk Assessment Form Do you need help eating, bathing, using the toilet, dressing, or getting around your home?: Yes Can you prepare your own meals?: No Can you do your own housework without help?: No Can you shop for groceries or clothes without help?: No Do you exercise for about 20 minutes 3 or more days a week?: No How confident are you that you can control and manage most of your health problems?: Not very confident Can you mange your money, credit cards and accounts, pay bills and taxes?: No Vision Screening: Yes, patient was advised to have yearly eye exam Hearing Screening: Not done Cognitive Screening Three Word Registration: Marva Kelly Finger Pain Assessment Pain Score: 10 - Worst possible pain Advance Care Planning Do you have a living will?: No Who is your medical power of commercial real estate attorney?: has suargian through the state Objective : BP 102/64 Pulse 53 Temp 97.1 F Ht 5' 11 SpO2 98% BMI 29.29 kg/m No results found. Physical Exam Vitals reviewed. Constitutional: Appearance: Normal appearance. Comments: In wheelchair, chronically ill appearing HENT: Head: Normocephalic and atraumatic. Right Ear: Tympanic membrane normal. Left Ear: Tympanic membrane normal. Mouth/Throat: Mouth: Mucous membranes are moist. Pharynx: Oropharynx is clear. Eyes: Extraocular Movements: Extraocular movements intact. Cardiovascular: Rate and Rhythm: Normal rate and regular rhythm. Heart sounds: Normal heart sounds. Pulmonary: Effort: Pulmonary effort is normal. Breath sounds: Normal breath sounds. No wheezing, rhonchi or rales. Musculoskeletal: Cervical back: Neck supple. Right lower leg: Edema present. Left lower leg: Edema present. Lymphadenopathy: Cervical: No cervical adenopathy. Skin: General: Skin is warm and dry. Neurological: General: No focal deficit present. Mental Status: He is alert and oriented to person, place, and time. Psychiatric: Mood and Affect: Mood normal. Behavior: Behavior normal. Judgment: Judgment normal. Assessment/Plan : The following health maintenance schedule was reviewed with the patient and provided in printed form in the after visit summary: Health Maintenance Topic Date Due Influenza Vaccine (1) 10/15/2023 Pneumococcal Vaccine: 65+ Years Completed Advance Care Planning Has guardian and a best second jobs that controls the estate Diagnoses and all orders for this visit: Routine general medical examination at health care facility (Primary) Degenerative disease of central nervous system ([facility]) Chronic obstructive pulmonary disease, unspecified COPD type ([facility]) Essential hypertension ([facility]) Impaired mobility and ADLs Mixed hyperlipidemia ([facility]) Patient here for annual Medicare Wellness visit. Demographics were updated. Self-assessment was completed. Past medical, family and social history were updated. The medication list, including supplements being taken, was updated. A list of other current medical providers was established/updated. Time was spent discussing health maintenance issues, ordering proper testing, and schedule was provided regarding recommended screening. We discussed safety issues and fall risk. Depression screening was completed and addressed. Cognitive function was assessed by direct observation and assessment of ability to perform ADL's and IADL's was done. We also discussed Advanced Directives and code status. The current BMI was provided along with an education packet regarding healthy living and maintenanceof a healthy weight. The BMI will cont to be monitored at routine office visits as well. Major riskfactors for chronic disease including family history were discussed . No orders of the defined types were placed in this encounter. Electronically signed by Zelda Mendez NP on October 11, 2023 documented in this encounterMiss[facility]-[id number] History of Present illness Narrative* Raheem Ambrosio, DO - 10/11/2023 11:20 AM EDT Images from the original note were not included. SUBJECTIVE: Hilary Maldonado is a 78 y.o. male presents with chief complaint of Weakness, Gen [facility]. Edema: Has complaints of swelling of bilateral legs. Onset: has been ongoing for weeks. Pt states at timeswears compression stockings but a times difficulty getting on. but is not wearing in office. Pt does admit to sitting a lot. Knee pain: Has complaints of right knee pain. Has gradually worsened over time. Pt states he is unable to apply any pressure on leg. Had recent imaging of knee of 04/2023. Pain medication is taken as prescribed. Has had hx of surgery in the past. Pt is currently in assisted living. Gloria is asking for a h & p for detention placement. Weakness, Gen This is a chronic problem. The current episode started more than 1 year ago. The problem has been unchanged. Review of Systems: Review of Systems All other systems reviewed and are negative. Problem List: Patient Active Problem List Diagnosis Polyarthralgia Gastro-esophageal reflux disease without esophagitis Atherosclerotic heart disease of [place] coronary artery without angina pectoris (CMS/HCC) Essential hypertension (CMS/HCC) Mixed hyperlipidemia (CMS/HCC) Anxiety disorder Allergic rhinitis Chronic obstructive pulmonary disease (CMS/HCC) Dysphagia Current smoker Degenerative arthritis Peripheral vascular disease (CMS/HCC) Paresthesia of skin Abnormal CXR 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) Idiopathic peripheral neuropathy Insomnia Lung nodule Skin sensation disturbance BRANDI (acute kidney injury) (CMS/HCC) Altered mental status Carotid stenosis, right Dementia (CMS/HCC) Ischemic cardiomyopathy (CMS/HCC) Mass of left parotid gland Pre-operative cardiovascular examination Shortness of breath Two-vessel coronary artery disease (CMS/HCC) Frequent falls Major depression, chronic (CMS/HCC) Encephalopathy Gout Edema Adult failure to thrive Hypokalemia Hypomagnesemia Impaired mobility and ADLs Thrombocytopenia (CMS/HCC) Past Medical History: Past Medical History: Diagnosis Date Antral gastritis Asthma (CMS/HCC) CAD (coronary artery disease) (CMS/HCC) Chronic airway obstruction (CMS/HCC) COPD (chronic obstructive pulmonary disease) (CMS/HCC) Coronary atherosclerosis (CMS/HCC) Dysphagia Hyperlipidemia (CMS/HCC) Hypertension (CMS/HCC) NC (mitral incompetence) Family History: Family History Problem Relation Name Age of Onset Cancer Mother Hypertension Father Heart disease Father Allergies: Allergies Allergen Reactions Morphine Unknown Egg Solids, Whole Ramipril Other Reaction(s): Unknown Surgical History: Past Surgical History: Procedure Laterality Date BACK SURGERY EGD ESOPHAGOSCOPY / EGD NECK SURGERY REPLACEMENT TOTAL KNEE ONCOLOGIC SEPTOPLASTY Social History: Social Determinants of Health Tobacco Use: High Risk (10/11/2023) Patient History Smoking Tobacco Use: Every Day Smokeless Tobacco Use: Never Passive Exposure: Not on file Alcohol Use: Not on file Financial Resource Strain: Not on file Food Insecurity: Not on file Transportation Needs: Not on file Physical Activity: Not on file Stress: Not on file Social Connections: Not on file Intimate Partner Violence: Not on file Depression: Not at risk (10/11/2023) PHQ-2 PHQ-2 Score: 0 Housing Stability: Not on file Health Literacy: Not on file OBJECTIVE: Visit Vitals Smoking Status Every Day Physical Exam Constitutional: Appearance: He is ill-appearing. HENT: Head: Normocephalic and atraumatic. Eyes: Extraocular Movements: Extraocular movements intact. Pupils: Pupils are equal, round, and reactive to light. Cardiovascular: Rate and Rhythm: Normal rate and regular rhythm. Heart sounds: No murmur heard. Pulmonary: Effort: Pulmonary effort is normal. Breath sounds: Normal breath sounds. No wheezing, rhonchi or rales. Abdominal: General: Bowel sounds are normal. Palpations: Abdomen is soft. Tenderness: There is no abdominal tenderness. Musculoskeletal: General: Swelling present. Comments: Right knee pain and dec rom General weakness, in wheelchair Skin: General: Skin is warm. Neurological: General: No focal deficit present. Mental Status: He is alert and oriented to person, place, and time. Motor: Weakness present. Coordination: Coordination abnormal. Gait: Gait abnormal. Psychiatric: Mood and Affect: Mood normal. Behavior: Behavior normal. No results found for this or any previous visit (from the past 672 hour(s)). ASSESSMENT AND PLAN: Assessment/Plan Diagnoses and all orders for this visit: Altered mental status, unspecified altered mental status type - CBC and differential; Future - Comprehensive metabolic panel; Future Adult failure to thrive Patient advised that I feel he does need a lot of help with his adl's as he is very weak and using a wheelchair. He is very high risk for falls. He needs help with his medications as well. He needs someone to help put on his compression stockings. He has several ongoing health problems that need og addressed and appropriate referrals have been made. I did advise him that I don't feel that he would be safe at home and a detention is most appropriate at this point until he is able to gain strength. - Ambulatory referral to Physical Therapy; Future Chronic obstructive pulmonary disease, unspecified COPD type (CMS/HCC) - CBC and differential; Future - Comprehensive metabolic panel; Future Essential hypertension (CMS/HCC) - Lipid panel; Future - CBC and differential; Future - Comprehensive metabolic panel; Future Ischemic cardiomyopathy (CMS/HCC) - Lipid panel; Future - CBC and differential; Future Mixed hyperlipidemia (CMS/HCC) Labs ordered today, will follow up when results available - Lipid panel; Future - CBC and differential; Future Two-vessel coronary artery disease (CMS/HCC) - Lipid panel; Future Primary osteoarthritis of right knee Patient advised to contact ortho regarding and will refer to PT as he would like to use crutches - Ambulatory referral to Physical Therapy; Future Mass of left parotid gland Reviewed ent consult at [facility] today. was to schedule with surgeon regarding mass, but was in hospital so jada given information to contact Dr Etienne Edema, unspecified type Patient advised to return if symptoms worsen and/or persist despite treatment. Rec someone help himwith getting knee high compression on Chronic gout without tophus, unspecified cause, unspecified site Labs ordered today, will follow up when results availableProblem is stable, will continue with current treatment plan. Call or return to clinic if any changes occur - Uric acid; Future Prostate cancer screening - PSA; Future Peripheral vascular disease (CMS/HCC) Problem is stable, will continue with current treatment plan. Call or return to clinic if any changes occur Updated Medications: I have reviewed and reconciled the history and medication list with the patient today. Current Outpatient Medications: acetaminophen (Tylenol 8 Hour) 650 MG ER tablet, Take 650 mg by mouth every 8 (eight) hours if needed for mild pain Do not crush, chew, or split., Disp: , Rfl: allopurinol (Zyloprim) 300 MG tablet, Take 1 tablet (300 mg) by mouth in the morning., Disp: 90 tablet, Rfl: 3 ARIPiprazole (Abilify) 5 MG tablet, Take 1 tablet (5 mg) by mouth in the morning., Disp: 30 tablet,Rfl: 5 ascorbic acid (Vitamin C) 500 MG ER capsule, Take 500 mg by mouth in the morning and 500 mg before bedtime., Disp: , Rfl: aspirin (Yunior Low Dose) 81 MG EC tablet, Take 81 mg by mouth in the morning., Disp: , Rfl: atorvastatin (Lipitor) 10 MG tablet, Take 1 tablet (10 mg) by mouth in the morning., Disp: 90 tablet, Rfl: 3 carvedilol (Coreg) 3.125 MG tablet, Take 1 tablet (3.125 mg) by mouth in the morning and 1 tablet (3.125 mg) in the evening. Take with meals., Disp: 180 tablet, Rfl: 3 cholecalciferol (Vitamin D-3) 10 MCG (400 UNIT) capsule, Take 400 Units by mouth Daily, Disp: , Rfl: Docusate Sodium (DSS) 100 MG capsule, Take 1 capsule by mouth Daily as needed., Disp: , Rfl: ferrous sulfate 325 (65 Fe) MG tablet, Take 325 mg by mouth every other day, Disp: , Rfl: furosemide (Lasix) 40 MG tablet, Take 40 mg by mouth Daily, Disp: , Rfl: mirtazapine (Remeron) 30 MG tablet, Take 1 tablet (30 mg) by mouth at bedtime, Disp: 90 tablet, Rfl: 1 multivitamin (Theragran) tablet, Take 1 tablet by mouth Daily, Disp: , Rfl: Oyster Shell 500 MG tablet, Take 1 tablet by mouth in the morning and 1 tablet before bedtime., Disp: , Rfl: pantoprazole (ProtoNix) 40 MG EC tablet, Take 40 mg by mouth in the morning. Take before meals., Disp: , Rfl: potassium chloride CR (Klor-Con) 10 MEQ ER tablet, Take 10 mEq by mouth in the morning and 10 mEq in the evening., Disp: , Rfl: pregabalin (Lyrica) 100 MG capsule, Take 1 capsule (100 mg) by mouth in the morning and 1 capsule (100 mg) before bedtime., Disp: 180 capsule, Rfl: 1 tamsulosin (Flomax) 0.4 MG 24 hr capsule, Take 1 capsule (0.4 mg) by mouth in the morning., Disp: 90 capsule, Rfl: 3 Vortioxetine HBr (Trintellix) 10 MG tablet, Take 1 tablet by mouth in the morning., Disp: 90 tablet, Rfl: 3 documented in this encounterMiss[facility]-[id number] Progress note Author Celeste Alfonso [facility] May 01, 2023 12:36pm Note Date/Time May 01, 2023 12: 36pm [facility] [address] [place] [address] Hospitalist Progress Note Signed Patient: Hilary Maldonado MR#: [id number] : 1945 Acct:[id number] Age/Sex: 78 / M Adm Date: 4 Loc: Room: [address] [place] [address] Type: ADM IN Attending Dr: Celeste Alfonso MD Copies to: ~ Date of Service: 05/01/2023 Subjective Subjective Narrative: Patient was seen and examined at the bedside this afternoon. Patient sitting inthe chair, denies any particular complaints apart from his knee pain Physical Examination: GENERAL APPEARANCE: Alert, oriented x 3, mildly tangential elderly male HEENT: NCAT, MMM NECK: Neck soft w/o masses, no JVD CARDIAC: Normal S1 and S2. No S3, S4 or murmurs. LUNGS: Clear to auscultation bilaterally. no wheeze/rhonchi/rales ABDOMEN: Positive bowel sounds. Soft, nontender. No guarding or signs of an acute abdomen MUSCULOSKELETAL: No joint erythema or tenderness. EXTREMITIES: No clubbing, cyanosis or edema NEUROLOGICAL: No focal deficits PSYCHIATRIC: Appropriate mood and affect Assessment and plan: 1. Right knee osteoarthritis Appreciate orthopedic surgery consultation. Continue Voltaren gel. Underwent joint injection April 29 Knee pain slightly better 2. 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 Chronic systolic congestive heart failure with ejection fraction 45% 5. Chronic kidney disease stage III, creatinine seems to be stable, will recheck 6. Monoclonal gammopathy of renal significance 7. Hypertension 8. History of nephrotic syndrome 9. COPD, currently compensated 10. Gout 11. History of nicotine abuse Exam Physical Exam Vital Signs: Temp Pulse Resp BP Pulse Ox O2 Del Method 36.9 C 59 L 18 137/73 98 Room Air 04/30/23 16:00 05/01/23 08:00 05/01/23 08:00 05/01/23 08:00 05/01/23 08:00 05/01/23 08:00 Objective Lab Results 04/28/23 06:15 04/28/23 06:15 Meds Allergies and Active Meds Allergies No Known Allergies Allergy (Verified 04/27/23 13:08) Active Meds: Active Medications Generic Name Dose Route Start Last Admin Trade Name Freq PRN Reason Stop Dose Admin Acetaminophen 1,000 mg 04/28/23 21:27 04/30/23 05:53 Acetaminophen 500 Mg Tablet PO 04/27/24 21:26 1,000 mg Q6H PRN Administration Fever or Pain Allopurinol 300 mg 04/29/23 09:00 05/01/23 09:08 Allopurinol 300 Mg Tablet PO 04/28/24 08:59 300 mg QAM EDWIGE Administration Aspirin 81 mg 04/28/23 09:00 05/01/23 09:07 Aspirin 81 Mg Tablet.Dr PO 04/27/24 08:59 81 mg DAILY EDWIGE Administration Atorvastatin Calcium 10 mg 04/29/23 09:00 05/01/23 09:07 Atorvastatin 10 Mg Tablet PO 04/28/24 08:59 10 mg QAM EDWIGE Administration Carvedilol 3.125 mg 04/28/23 08:00 05/01/23 09:06 Carvedilol 3.125 Mg Tablet PO 04/27/24 07:59 3.125 mg BID.WITH.MEALS EDWIGE Administration Diclofenac Sodium 2 gm 04/27/23 22:00 05/01/23 09:10 Diclofenac Sodium 1% Gel 100 Gm Tube TOPICAL 04/26/24 21:59 2 gm TID EDWIGE Administration Enoxaparin Sodium 40 mg 04/28/23 10:00 05/01/23 09:31 Enoxaparin 40 Mg/0.4 Ml Syringe SUBCUT 04/27/24 09:59 Not Given DAILY@10 EDWIGE Haloperidol Lactate 3 mg 04/27/23 22:14 Haloperidol Lactate 5 Mg/Ml Vial IV-PUSH 04/26/24 22:13 Q6H PRN Agitation Pregabalin 50 mg 04/27/23 22:00 05/01/23 09:08 Pregabalin 50 Mg Capsule PO 10/24/23 21:59 50 mg TID EDWIGE Administration Quetiapine Fumarate 50 mg 04/29/23 21:00 04/30/23 21:01 Quetiapine Fumarate 50 Mg Tablet PO 04/28/24 20:59 50 mg QHS EDWIGE Administration Tamsulosin HCl 0.4 mg 04/30/23 09:00 05/01/23 09:07 Tamsulosin 0.4 Mg Cap.Er.24h PO 04/29/24 08:59 0.4 mg DAILY EDWIGE Administration A&P - Hospitalist Assessment/Plan (1) Knee pain, right: Plan as above Documented By: Celeste Alfonso MD 05/01/23 1230 Signed By: <Electronically signed by Celeste Alfonso MD> 05/01/23 [facility] Work Phone: 1(447) 922-265903-18-2024 Progress note Author Hilary Rice [facility] May 01, 2023 6:38am Note Date/Time May 01, 2023 6:3 8am [facility] [address] [place] [address] Orthopedic Progress Note Signed Patient: Hilary Maldonado MR#: [id number] : 1945 Acct:[id number] Age/Sex: 78 / M Adm Date: 4 Loc: 3T Room: [address] [place] [address] Type: ADM INOo Attending Dr: Mariano Dennis DO Copies to: ~ Date of Service: 04/30/2023 Exam Physical Exam Vital Signs: Temp Pulse Resp BP Pulse Ox O2 Del Method 97.9 F 57 L 19 144/85 H 98 Room Air 04/30/23 05:46 04/30/23 05:46 04/30/23 05:46 04/30/23 05:46 04/30/23 05:46 04/30/23 05:46 Narrative: Patient was sitting up and eating. Continued complaints of right knee pain and difficulty walking. He agreed that he would like a cortisone injection. Again he did demonstrate active extension of the knee and flexion to 90 Slight swelling noted. No redness or warmth about the right knee Assessment / Plan Assessment and plan (1) Knee pain, right: Qualifiers: Chronicity: chronic Qualified Code(s): M25.561 - Pain in right knee; G89.29 - Other chronic pain Code(s): M25.561 - Pain in right knee Plan We performed triamcinolone 40 mg injection into the right knee. Patient tolerated this well. He may progress activity as tolerated. Hopefully this will give him some degreeof pain relief. He may follow in our office after discharge. We could considertotal knee replacement at some point Documented By: Hilary Rice MD 04/30/23 0805 Signed By: <Electronically signed by MD Hilary Rice> 05/01/23 0638 [facility] Work Phone: 1(518) 382-825903-18-2024 [facility]03-17-2024 Progress note Author Mariano Dennis [facility] April 30, 2023 5:34pm Note Date/Time April 30, 2023 5:3 4pm [facility] [address] [place] [address] Hospitalist Progress Note Signed Patient: Hilary Maldonado MR#: [id number] : 1945 Acct:[id number] Age/Sex: 78 / M Adm Date: 4 Loc: 3T Room: [address] [place] [address] Type: ADM INOo Attending Dr: Mariano Dennis DO Copies to: ~ Date of Service: 04/30/2023 Subjective Subjective Narrative: Patient was seen and examined at the bedside this afternoon. Received a prednisone injection. No new complaints. Physical Examination: GENERAL APPEARANCE: Alert, oriented, mildly tangential elderly male HEENT: NCAT, MMM NECK: Neck soft w/o masses, no JVD CARDIAC: Normal S1 and S2. No S3, S4 or murmurs. LUNGS: Clear to auscultation bilaterally. no wheeze/rhonchi/rales ABDOMEN: Positive bowel sounds. Soft, nontender. No guarding or signs of an acute abdomen MUSCULOSKELETAL: No joint erythema or tenderness. EXTREMITIES: No clubbing, cyanosis or edema NEUROLOGICAL: No focal deficits PSYCHIATRIC: Appropriate mood and affect Assessment and plan: 1. Right knee osteoarthritis Appreciate orthopedic surgery consultation. Continue Voltaren gel. Underwent joint injection today 2. Dementia Yesterday the patient exhibited significant anger and was quite upset with his family. He did attempt to reassure him that his family and all staff are looking out for his best interest. He has been declared incompetent by psychiatry as well as by myself as he clearly has very poor insight into the complexity of his medical care and cannot manage this alone. He has been receiving 50 mg of Seroquel nightly here whenever he was on a different regimen on discharge. We will attempt to receive a most recent updated med list from his skilled facility that he left not long ago and I will resume those medications when available which may provide further stabilization she was somewhat labile mood. 3. Parotid mass Further treatment and workup of this potentially malignant process is still pending and largely on hold due to questions of competency. He does not appear cachectic or to have a progressing aggressive malignancy at this time. This is 1 of many medical issues that could warrant further treatment but without a medical guardian and someone to assist in coordinating the necessary frequent follow-ups and monitoring this will be quite difficult. Will attempt to discussthis further with the patient and reemphasize this point. 4. Chronic systolic congestive heart failure 5. Nephrotic syndrome 6. Monoclonal gammopathy of renal significance 7. Hypertension 8. History of nephrotic syndrome 9. COPD 10. Gout 11. History of nicotine abuse His labs and vital signs remain continually stable. Repeat protein and albumin levels show that he was paraproteinemia in the blood is anything quite mild and can be monitored. His other autoimmune issues, nephrotic syndrome and IgA gammopathy diagnosed previously are stable presently but for now. Patient exhibits no hypoxia nor signs of acute heart failure. Low-dose carvedilol 3.125mg twice daily has been ordered. Further guideline directed medical therapy maybe warranted. This will be updated as medication list becomes available. Last ejection fraction January 05 showed an EF of 45 to 50%. Mild global LV hypokinesis and severe hypokinesis of the inferior wall. Noninvasive evaluationof ischemia was recommended by cardiology at that time but deferred due to ongoing mental status issues. Refusing telemetry at the moment which is okay given his clinical status but will monitor for any signs of exacerbation or chest pain. Exam Physical Exam Vital Signs: Temp Pulse Resp BP Pulse Ox O2 Del Method 98.4 F 64 18 127/66 95 Room Air 04/30/23 16:00 04/30/23 16:00 04/30/23 16:00 04/30/23 16:00 04/30/23 16:00 04/30/23 16:00 Objective Lab Results 04/28/23 06:15 04/28/23 06:15 Meds Allergies and Active Meds Allergies No Known Allergies Allergy (Verified 04/27/23 13:08) Active Meds: Active Medications Generic Name Dose Route Start Last Admin Trade Name Freq PRN Reason Stop Dose Admin Acetaminophen 1,000 mg 04/28/23 21:27 04/30/23 05:53 Acetaminophen 500 Mg Tablet PO 04/27/24 21:26 1,000 mg Q6H PRN Administration Fever or Pain Allopurinol 300 mg 04/29/23 09:00 04/30/23 08:14 Allopurinol 300 Mg Tablet PO 04/28/24 08:59 300 mg QAM EDWIGE Administration Aspirin 81 mg 04/28/23 09:00 04/30/23 08:14 Aspirin 81 Mg Tablet.Dr PO 04/27/24 08:59 81 mg DAILY EDWIGE Administration Atorvastatin Calcium 10 mg 04/29/23 09:00 04/30/23 08:14 Atorvastatin 10 Mg Tablet PO 04/28/24 08:59 10 mg QAM EDWIGE Administration Carvedilol 3.125 mg 04/28/23 08:00 04/30/23 17:20 Carvedilol 3.125 Mg Tablet PO 04/27/24 07:59 3.125 mg BID.WITH.MEALS EDWIGE Administration Diclofenac Sodium 2 gm 04/27/23 22:00 04/30/23 13:56 Diclofenac Sodium 1% Gel 100 Gm Tube TOPICAL 04/26/24 21:59 2 gm TID EDWIGE Administration Enoxaparin Sodium 40 mg 04/28/23 10:00 04/30/23 09:24 Enoxaparin 40 Mg/0.4 Ml Syringe SUBCUT 04/27/24 09:59 Not Given DAILY@10 EDWIGE Haloperidol Lactate 3 mg 04/27/23 22:14 Haloperidol Lactate 5 Mg/Ml Vial IV-PUSH 04/26/24 22:13 Q6H PRN Agitation Pregabalin 50 mg 04/27/23 22:00 04/30/23 13:55 Pregabalin 50 Mg Capsule PO 10/24/23 21:59 50 mg TID EDWIGE Administration Quetiapine Fumarate 50 mg 04/29/23 21:00 04/29/23 23:26 Quetiapine Fumarate 50 Mg Tablet PO 04/28/24 20:59 50 mg QHS EDWIGE Administration Tamsulosin HCl 0.4 mg 04/30/23 09:00 04/30/23 08:14 Tamsulosin 0.4 Mg Cap.Er.24h PO 04/29/24 08:59 0.4 mg DAILY EDWIGE Administration A&P - Hospitalist Assessment/Plan (1) Knee pain, right: Plan as above Documented By: Mariano Dennis DO 04/30/23 17 33 Signed By: <Electronically signed by Mariano Dennis DO> 04/30/23 1734 [facility] Work Phone: [phone]) 810-563303-16-2024 Progress note Author Mariano Dennis [facility] April 29, 2023 5:30pm Note Date/Time April 29, 2023 5:3 0pm [facility] [address] [place] [address] Hospitalist Progress Note Signed Patient: Hilary Maldonado MR#: [id number] : 1945 Acct:[id number] Age/Sex: 78 / M Adm Date: 4 Loc: 3T Room: [address] [place] [address] Type: ADM INOo Attending Dr: Mariano Dennis DO Copies to: ~ Date of Service: 04/29/2023 Subjective Subjective Narrative: Patient was seen and examined at the bedside this afternoon. He is sitting up in his chair eating dinner. Expresses discontent with his family and their motives. Reassured everyone is looking out for his best interest and his medical complexity wants regular oversight and regular nursing care and he wouldbe best served at a skilled facility. Physical Examination: GENERAL APPEARANCE: Alert, oriented, mildly tangential elderly male HEENT: NCAT, MMM NECK: Neck soft w/o masses, no JVD CARDIAC: Normal S1 and S2. No S3, S4 or murmurs. LUNGS: Clear to auscultation bilaterally. no wheeze/rhonchi/rales ABDOMEN: Positive bowel sounds. Soft, nontender. No guarding or signs of an acute abdomen MUSCULOSKELETAL: No joint erythema or tenderness. EXTREMITIES: No clubbing, cyanosis or edema NEUROLOGICAL: No focal deficits PSYCHIATRIC: Appropriate mood and affect Assessment and plan: 1. Right knee osteoarthritis Appreciate orthopedic surgery consultation. Continue Voltaren gel. Possible prednisone injection prior to discharge. 2. Dementia Yesterday the patient exhibited significant anger and was quite upset with his family. He did attempt to reassure him that his family and all staff are looking out for his best interest. He has been declared incompetent by psychiatry as well as by myself as he clearly has very poor insight into the complexity of his medical care and cannot manage this alone. He has been receiving 50 mg of Seroquel nightly here whenever he was on a different regimen on discharge. We will attempt to receive a most recent updated med list from his skilled facility that he left not long ago and I will resume those medications when available which may provide further stabilization she was somewhat labile mood. 3. Parotid mass Further treatment and workup of this potentially malignant process is still pending and largely on hold due to questions of competency. He does not appear cachectic or to have a progressing aggressive malignancy at this time. This is 1 of many medical issues that could warrant further treatment but without a medical guardian and someone to assist in coordinating the necessary frequent follow-ups and monitoring this will be quite difficult. Will attempt to discussthis further with the patient and reemphasize this point. 4. Chronic systolic congestive heart failure 5. Nephrotic syndrome 6. Monoclonal gammopathy of renal significance 7. Hypertension 8. History of nephrotic syndrome 9. COPD 10. Gout 11. History of nicotine abuse His labs and vital signs remain continually stable. Repeat protein and albumin levels show that he was paraproteinemia in the blood is anything quite mild and can be monitored. His other autoimmune issues, nephrotic syndrome and IgA gammopathy diagnosed previously are stable presently but for now. Patient exhibits no hypoxia nor signs of acute heart failure. Low-dose carvedilol 3.125mg twice daily has been ordered. Further guideline directed medical therapy maybe warranted. This will be updated as medication list becomes available. Last ejection fraction January 05 showed an EF of 45 to 50%. Mild global LV hypokinesis and severe hypokinesis of the inferior wall. Noninvasive evaluationof ischemia was recommended by cardiology at that time but deferred due to ongoing mental status issues. Refusing telemetry at the moment which is okay given his clinical status but will monitor for any signs of exacerbation or chest pain. Exam Physical Exam Vital Signs: Temp Pulse Resp BP Pulse Ox O2 Del Method 97.3 F L 60 20 131/76 97 Room Air 04/29/23 08:00 04/29/23 08:00 04/29/23 08:00 04/29/23 08:00 04/29/23 08:00 04/29/23 08:00 Objective Lab Results 04/28/23 06:15 04/28/23 06:15 Meds Allergies and Active Meds Allergies No Known Allergies Allergy (Verified 04/27/23 13:08) Active Meds: Active Medications Generic Name Dose Route Start Last Admin Trade Name Freq PRN Reason Stop Dose Admin Acetaminophen 1,000 mg 04/28/23 21:27 04/28/23 22:03 Acetaminophen 500 Mg Tablet PO 04/27/24 21:26 1,000 mg Q6H PRN Administration Fever or Pain Allopurinol 300 mg 04/29/23 09:00 04/29/23 09:10 Allopurinol 300 Mg Tablet PO 04/28/24 08:59 300 mg QAM EDWIGE Administration Aspirin 81 mg 04/28/23 09:00 04/29/23 09:10 Aspirin 81 Mg Tablet.Dr PO 04/27/24 08:59 81 mg DAILY EDWIGE Administration Atorvastatin Calcium 10 mg 04/29/23 09:00 04/29/23 09:10 Atorvastatin 10 Mg Tablet PO 04/28/24 08:59 10 mg QAM EDWIGE Administration Carvedilol 3.125 mg 04/28/23 08:00 04/29/23 09:10 Carvedilol 3.125 Mg Tablet PO 04/27/24 07:59 3.125 mg BID.WITH.MEALS EDWIGE Administration Diclofenac Sodium 2 gm 04/27/23 22:00 04/29/23 14:23 Diclofenac Sodium 1% Gel 100 Gm Tube TOPICAL 04/26/24 21:59 2 gm TID EDWIGE Administration Enoxaparin Sodium 40 mg 04/28/23 10:00 04/29/23 09:10 Enoxaparin 40 Mg/0.4 Ml Syringe SUBCUT 04/27/24 09:59 Not Given DAILY@10 EDWIGE Haloperidol Lactate 3 mg 04/27/23 22:14 Haloperidol Lactate 5 Mg/Ml Vial IV-PUSH 04/26/24 22:13 Q6H PRN Agitation Pregabalin 50 mg 04/27/23 22:00 04/29/23 14:23 Pregabalin 50 Mg Capsule PO 10/24/23 21:59 50 mg TID EDWIGE Administration Quetiapine Fumarate 50 mg 04/27/23 22:14 04/28/23 22:03 Quetiapine Fumarate 50 Mg Tablet PO 04/27/24 21:59 50 mg QHS PRN Administration insomnia A&P - Hospitalist Assessment/Plan (1) Knee pain, right: Plan as above Documented By: Mariano Dennis DO 04/29/23 17 18 Signed By: <Electronically signed by Mariano Dennis DO> 04/29/23 1730 [facility] Work Phone: [phone] 743-141003-16-2024 Consult note Author Hilary Rice [facility] April 29, 2023 4:57am Note Date/Time April 28, 2023 1:5 3pm [facility] [address] [place] [address] Orthopedic Consult Note Signed Patient: Hilary Maldonado MR#: [id number] : 1945 Acct:[id number] Age/Sex: 78 / M Adm Date: 4 Loc: Room: [address] [place] [address] Type: ADM INOo Attending Dr: Mariano Dennis DO Copies to: Tyree Ambrosio Jr, DO Michael R. Frings, DO Thomas A Olexa, MD~ History of Present Illness HPI Consult date: 04/28/2023 Requesting provider: Mariano Dennis DO History of present illness: Patient is a 78-year-old male admitted due to difficulty functioning in daily life. Complaints of right knee pain. States the knee has been painful for manyyears. States he has undergone left total knee replacement in the past. Orthopedics consulted for evaluation right knee pain [facility] Medical History Dementia Parotid mass Gout Chronic pain Hyperlipemia HTN (hypertension) COPD (chronic obstructive pulmonary disease) Family History Family/Other Lung cancer Colon cancer Father Myocardial infarction Mother Breast cancer Family/Other Myocardial infarction Father 55 yrs Mother 92 yrs Social History Smoking Status: Former smoker Tobacco Type: cigarettes Substance Use Type: None Allergies & Medications Medications and Allergies Allergies No Known Allergies Allergy (Verified 04/27/23 13:08) Home Medications atorvastatin 10 mg tablet 10 mg PO QAM 03/02/18 [History Confirmed 04/27/23] vortioxetine 10 mg tablet 10 mg PO DAILY 03/02/18 [History Confirmed 03/24/23] mirtazapine 15 mg tablet 15 mg PO QHS 10/27/22 [History Confirmed 04/27/23] allopurinol 300 mg tablet 300 mg PO QAM 11/20/22 [History Confirmed 04/27/23] aripiprazole 5 mg tablet 5 mg PO QAM 12/19/22 [History Confirmed 03/24/23] carvedilol 3.125 mg tablet 3.125 mg PO BID.WITH.MEALS #0 tabs 12/22/22 [Rx Confirmed 03/24/23] tamsulosin 0.4 mg capsule 0.4 mg PO DAILY #0 caps 12/22/22 [Rx Confirmed 03/24/23] potassium chloride 20 mEq tablet,extended release 20 meq PO DAILY 02/28/23 [History Confirmed 03/24/23] acetaminophen 500 mg tablet 1,000 mg (2 x 500 mg) PO Q6H PRN Fever Or Pain #0 tabs 03/08/23 [Rx Confirmed 04/27/23] ascorbic acid (vitamin C) 500 mg tablet (Vitamin C) 500 mg PO BID.WITH.BFAST.LUNCH #0 tabs 03/08/23 [Rx Confirmed 03/24/23] aspirin 81 mg tablet,delayed release 81 mg PO DAILY #0 tabs 03/08/23 [Rx Confirmed 04/27/23] calcium carbonate 500 mg calcium (1,250 mg) tablet (Oyster Shell Calcium 500) 500 mg PO BID.WITH.BFAST.LUNCH #0 tabs 03/08/23 [Rx Confirmed 03/24/23] cholecalciferol (vitamin D3) 10 mcg (400 unit) tablet (Vitamin D3) 10 mcg PO BID.WITH.MEALS #0 tabs 03/08/23 [Rx Confirmed 03/24/23] docusate sodium 100 mg capsule 200 mg (2 x 100 mg) PO BID #0 caps 03/08/23 [Rx Confirmed 03/24/23] ferrous sulfate 324 mg (65 mg iron) tablet,delayed release 324 mg PO Q48HR #0 tabs 03/08/23 [Rx Confirmed 03/24/23] furosemide 40 mg tablet 40 mg PO BID@0800,1600 #0 tabs 03/08/23 [Rx Confirmed 03/24/23] multivitamin with folic acid 400 mcg tablet (Thera) 1 tab PO DAILY #0 tabs 03/08/23 [Rx Confirmed 03/24/23] pantoprazole 40 mg tablet,delayed release 40 mg PO DAILY #0 tabs 03/08/23 [Rx Confirmed 03/24/23] pregabalin 50 mg capsule (Lyrica) 50 mg PO TID 14 days #42 caps 03/08/23 [Rx Confirmed 04/27/23] trazodone 50 mg tablet 50 mg PO QHS PRN sleep #14 tabs 03/08/23 [Rx Confirmed 03/24/23] eknvrfu-qlffsbrrxydta-xkldgvgc 2 tab PO BID PRN migraine 04/27/23 [History Confirmed 04/27/23] famotidine 40 mg tablet 40 mg PO DAILY 04/27/23 [History Confirmed 04/27/23] Exam Physical Exam Vital Signs: Temp Pulse Resp BP Pulse Ox O2 Del Method 97.5 F L 67 20 139/74 96 Room Air 04/28/23 08:00 04/28/23 08:00 04/28/23 08:00 04/28/23 08:00 04/28/23 08:00 04/28/23 08:00 Const General: cooperative and no acute distress HEENT Head: normal to inspection and atraumatic Neck Neck: normal visual inspection and full ROM Resp Effort & Inspection: normal respiratory effort and able to speak in complete sentences Extrem Other: Patient sitting up responding appropriately to questions. Difficult to obtain adequate history from him. Moving both upper extremities without difficulty. Stable shoulder elbow and wrist. Skin intact bilateral. Right knee: Small effusion noted about the right knee. No redness or warmth. No obvious evidence of infection. Patient is able to actively flex and stand without severe pain. Good quad tone. Calf and thigh are soft. No evidence of DVT. Varus deformity right knee. Medial joint line pain with palpation. Moving ankle on command Left knee demonstrates previous midline total knee incision. Nonpainful motion. Calf and thigh are soft Results - Orthopedics Lab Results 04/28/23 06:15 04/28/23 06:15 Labs: Laboratory Results - Last 48 hrs. 04/28/23 06:15: Corrected WBC 7.2, Uncorrected WBC Count 7.2, RBC 3.68 L, Hgb 11.8 L, Hct 35.6 L, MCV 96.8, MCH 32.0, MCHC 33.1, RDW 18.7 H, Plt Count 147 L, MPV 10.3 H, Neut % (Auto) 47.4, Lymph % (Auto) 31.0, [place] % (Auto) 13.8, Eos % (Auto) 7.4, Baso % (Auto) 0.4, Nucleat RBC Rel Count 0.1, Neut # (Auto) 3.4, Lymph # (Auto) 2.2, [place] # (Auto) 1.0 H, Eos # (Auto) 0.5 H, Baso # (Auto) 0.0, PT 13.5 H, INR 1.2, APTT 30.8, PHA Creatinine Clear 53.68, Sodium 139, Potassium3.9, Chloride 103, Carbon Dioxide 27.5, Anion Gap 12.4, BUN 20, Creatinine 1.34 H, Est GFR (CKD-EPI) 54.560, Glucose 104 H, Calcium 8.8, Phosphorus 3.4, Magnesium 1.8 L, Total Bilirubin 0.7, AST 15, ALT 10, Alkaline Phosphatase 77, Total Protein 7.3, Albumin 3.8, Globulin 3.5, Albumin/Globulin Ratio 1.1 04/27/23 23:30: Urine Color Yellow, Urine Appearance Clear, Urine pH 6.0, Ur Specific Clio 1.020, Urine Protein 300 H, Urine Glucose (UA) Normal, Urine Ketones Negative, Urine Occult Blood Negative, Urine Nitrite Negative, Urine Bilirubin Negative, Urine Urobilinogen Normal, Ur Leukocyte Esterase Negative, Urine RBC 0-1, Urine WBC 1-2, Ur Squamous Epith Cells 0-1, Urine Bacteria None seen, Hyaline Casts 0-8 04/27/23 20:49: Potassium 3.8 04/27/23 16:15: Corrected WBC 8.2, Uncorrected WBC Count 8.2, RBC 4.02, Hgb 12.7L, Hct 39.0, MCV 97.0, MCH 31.6, MCHC 32.6, RDW 18.7 H, Plt Count 157, MPV 10.0,Neut % (Auto) 62.4, Lymph % (Auto) 20.6, [place] % (Auto) 10.9, Eos % (Auto) 5.5, Baso % (Auto) 0.6, Nucleat RBC Rel Count 0.1, Neut # (Auto) 5.1, Lymph # (Auto) 1.7, [place] # (Auto) 0.9 H, Eos # (Auto) 0.4, Baso # (Auto) 0.1, Monocyte Dist Width 22.60 H, Platelet Estimate Normal, Plt Morphology Comment Normal, RBC Morphology N/A, Anisocytosis Slight, Potassium Cancelled 04/27/23 14:04: Corrected WBC Cancelled, Uncorrected WBC Count Cancelled, RBC Cancelled, Hgb Cancelled, Hct Cancelled, MCV Cancelled, MCH Cancelled, MCHC Cancelled, RDW Cancelled, Plt Count Cancelled, MPV Cancelled, Neut % (Auto) Cancelled, Lymph % (Auto) Cancelled, [place] % (Auto) Cancelled, Eos % (Auto) Cancelled, Baso % (Auto) Cancelled, Nucleat RBC Rel Count Cancelled, Neut # (Auto) Cancelled, Lymph # (Auto) Cancelled, [place] # (Auto) Cancelled, Eos # (Auto) Cancelled, Baso # (Auto) Cancelled, Monocyte Dist Width Cancelled, PHA Creatinine Clear 59.44, Sodium 140, Potassium , Chloride 103, Carbon Dioxide 29.4, Anion Gap , BUN 18, Creatinine 1.21, Est GFR (CKD-EPI) > 60.0, Glucose 145H, Calcium 9.3, Total Bilirubin 0.8, AST 21, ALT 12, Alkaline Phosphatase 70, Total Protein 8.1, Albumin 4.0, Globulin 4.1, Albumin/Globulin Ratio 1.0 H & H 04/27/23 04/27/23 04/28/23 Range/Units 14:04 16:15 06:15 Hgb Cancelled 12.7 L 11.8 L Hct Cancelled 39.0 35.6 L Coagulation 04/28/23 Range/Units 06:15 INR 1.2 All other labs are normal. Imaging & Diagnostic Results Imaging/Diagnostics: AP and lateral views of the right knee demonstrate severe medial compartment arthritis with varus deformity Assessment/Plan (1) Knee pain, right: Qualifiers: Chronicity: chronic Qualified Code(s): M25.561 - Pain in right knee; G89.29 - Other chronic pain Code(s): M25.561 - Pain in right knee Plan Patient has chronic severe degenerative arthritis right knee. At this point he does not appear to be a good candidate for total knee replacement. I would recommend cortisone injection and progressive ambulation as tolerated. We will perform injection this weekend for him. Activity as tolerated He can then follow in our office for discussion of potential total knee replacement on an elective basis Documented By: Hilary Rice MD 04/28/23 1352 Signed By: <Electronically signed by MD Hilary Rice> 04/29/23 045 [facility] Work Phone: [phone] 241-571803-15-2024 Progress note Author Mariano Dennis [facility] April 28, 2023 6:50pm Note Date/Time April 28, 2023 6:5 0pm [facility] [address] [place] [address] Hospitalist Progress Note Signed Patient: Hilary Maldonado MR#: [id number] : 1945 Acct:[id number] Age/Sex: 78 / M Adm Date: 4 Loc: 3T Room: [address] [place] [address] Type: ADM INOo Attending Dr: Mariano Dennis DO Copies to: ~ Date of Service: 04/28/2023 Subjective Subjective Narrative: Patient was seen and examined at the bedside earlier today. He is upset regarding his need of guardianship. Physical Examination: GENERAL APPEARANCE: Alert, oriented, mildly tangential elderly male HEENT: NCAT, MMM NECK: Neck soft w/o masses, no JVD CARDIAC: Normal S1 and S2. No S3, S4 or murmurs. LUNGS: Clear to auscultation bilaterally. no wheeze/rhonchi/rales ABDOMEN: Positive bowel sounds. Soft, nontender. No guarding or signs of an acute abdomen MUSCULOSKELETAL: No joint erythema or tenderness. EXTREMITIES: No clubbing, cyanosis or edema NEUROLOGICAL: No focal deficits PSYCHIATRIC: Appropriate mood and affect Assessment and plan: 1. Right knee osteoarthritis This is patient's primary complaint. Appreciate any recommendations from orthopedic surgery. Would avoid long-term NSAID use. Voltaren gel has been ordered. Previously prescribed Lyrica has also been ordered. Tylenol as needed. If truly intractable can escalate to opiate pain control but for now wewill hold off on this. 2. Dementia Patient is alert and very clear in his speech at times but through discussion itis clear he exhibits very poor insight into his multiple comorbid medical illnesses as noted previously. My colleague declared him incompetent on his recent discharge in February and despite this was allowed to leave skilled care facility AGAINST MEDICAL ADVICE. I have consulted psychiatry for further assistance in assessing his competency who did evaluate the patient and agrees guardianship is warranted. This process has been initiated. 3. Parotid mass Further treatment and workup of this potentially malignant process is still pending and largely on hold due to questions of competency based on chart review. He does not appear cachectic or to have a progressing aggressive malignancy at this time. 4. Chronic systolic congestive heart failure 5. Nephrotic syndrome 6. Monoclonal gammopathy of renal significance 7. Hypertension 8. History of nephrotic syndrome 9. COPD 10. Gout 11. History of nicotine abuse Despite his multiple comorbid illnesses diagnosed on recent hospitalization his labs and vital signs all appear diffusely stable and actually improved from thattime. Will need to obtain a accurate medication list and resume appropriate heart failure and other medications that he needs regularly. He reports chronicongoing cough since his discharge that is mostly nonproductive. He does not have signs of infection at the moment and his breath sounds are fairly clear. Will order some Mucinex to assist in clearance but follow-up for any evidence ofinfection. He appears to been discharged on aripiprazole and vortioxetine thesecan be continued when verified. A gamma gap of 4.1 is noted on his LFTs today which does not seem to be noted previously. 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 Urinalysis shows previously noted proteinuria, no infection. Will resume his previously prescribed extensive medical regimen as tolerated. Exam Physical Exam Vital Signs: Temp Pulse Resp BP Pulse Ox O2 Del Method 98.0 F 62 20 133/77 99 Room Air 04/28/23 16:00 04/28/23 16:00 04/28/23 16:00 04/28/23 16:00 04/28/23 16:00 04/28/23 16:00 Objective Lab Results 04/28/23 06:15 04/28/23 06:15 Meds Allergies and Active Meds Allergies No Known Allergies Allergy (Verified 04/27/23 13:08) Active Meds: Active Medications Generic Name Dose Route Start Last Admin Trade Name Freq PRN Reason Stop Dose Admin Aspirin 81 mg 04/28/23 09:00 04/28/23 08:52 Aspirin 81 Mg Tablet.Dr PO 04/27/24 08:59 81 mg DAILY EDWIGE Administration Carvedilol 3.125 mg 04/28/23 08:00 04/28/23 17:25 Carvedilol 3.125 Mg Tablet PO 04/27/24 07:59 3.125 mg BID.WITH.MEALS EDWIGE Administration Diclofenac Sodium 2 gm 04/27/23 22:00 04/28/23 15:06 Diclofenac Sodium 1% Gel 100 Gm Tube TOPICAL 04/26/24 21:59 2 gm TID EDWIGE Administration Enoxaparin Sodium 40 mg 04/28/23 10:00 04/28/23 12:20 Enoxaparin 40 Mg/0.4 Ml Syringe SUBCUT 04/27/24 09:59 Not Given DAILY@10 EDWIGE Haloperidol Lactate 3 mg 04/27/23 22:14 Haloperidol Lactate 5 Mg/Ml Vial IV-PUSH 04/26/24 22:13 Q6H PRN Agitation Pregabalin 50 mg 04/27/23 22:00 04/28/23 15:06 Pregabalin 50 Mg Capsule PO 10/24/23 21:59 50 mg TID EDWIGE Administration Quetiapine Fumarate 50 mg 04/27/23 22:14 04/27/23 22:50 Quetiapine Fumarate 50 Mg Tablet PO 04/27/24 21:59 50 mg QHS PRN Administration insomnia A&P - Hospitalist Assessment/Plan (1) Knee pain, right: Plan as above Documented By: Mariano Dennis DO 04/28/23 18 46 Signed By: <Electronically signed by Mariano Dennis DO> 04/28/23 6725 [facility] Work Phone: [phone] 848-993303-15-2024 Consult note Author William booker [facility] April 28, 2023 10:12am Note Date/Time April 28, 2023 10: 01am [facility] [address] [place] [address] Psychiatry Consult Note Signed Patient: Hilary Maldonado MR#: [id number] : 1945 Acct:[id number] Age/Sex: 78 / M Adm Date: 4 Loc: Room: [address] [place] [address] Type : ADM INOo Attending Dr: Mariano Dennis DO Copies to: MD Tyree Leo Jr, DO Mariano Dennis DO~ HPI Consult Date: 04/28/23 Requesting Physician: Mariano Dennis DO Primary Care Provider: Damian Ambrosio DO Consult Narrative HPI: This patient is a 78 male with a complex past medical history recently discharged from this facility March 08 of this year. He was at a detention facility from that time forward reportedly and a few days ago it is reportedly left AGAINST MEDICAL ADVICE. Reportedly, EMS was called on the patient with concerns of his wellbeing prompting his presentation. His complaint primarily is his right knee pain and reportedly requests a knee replacement. His workup in the ER today is relatively benign with stable vital signs breathing comfortably on room air. No fevers or signs of distress. Mild anemia with a hemoglobin of 12.7, borderline thrombocytopenia of 157, white blood cell count 8.2. Slight distribution width elevated 22.60. Chemistries show a serum creatinine of 1.21 with improvement in renal function from his inpatient labs in February. No LFT abnormalities. He has cardiomegaly and vascular congestion on chest x-ray with known systolic congestive heart failure,unchanged from prior films. A full review x-ray of his right knee shows unchanged moderate degenerative changes. At the time of the interview, he has presents as guarded. He reports that he does not want to answer any questions so that I do not get myself in trouble. He is unable to elaborate on the circumstances that lead to hospitalization. He said he has difficulty managing his ADLS and taking care of himself but wants tohave the ability to make his decisions. He does not recall his medical problemsand is unable to elaborate on the severity of each problem. He was unable to tell me what happened and the severity of what was going on. He also did not understand the risks of leaving the hospital or why he needed tostay in the hospital. He does have limited understanding of the seriousness of his medical condition. Given his recent AMA discharges and lack of insight, I believe patient lacks capacity at this time. On mental status examination, he presents as a casually dressed man, cooperative, intermittent eye contact, with apparent trouble expressing himself when addressed and asked to respond. He is alert and oriented x 2. Speech is spontaneous. The mood is ``ok.?? Affect is constricted, guarded and suspicious.No psychomotor retardation or agitation. The thought process is goal-directed. The content shows no evidence of psychotic or suicidal content. Insight and judgment are limited. Cognitive testing - see below He is unable to recall 3 words after 5 minutes. He is able to tell me the monthbut unable to identify the year correctly. He is unable to spell world backwards without multiple errors. He is able to identify his location [facility] Medical History Dementia Parotid mass Gout Chronic pain Hyperlipemia HTN (hypertension) COPD (chronic obstructive pulmonary disease) Family History Family/Other Lung cancer Colon cancer Father Myocardial infarction Mother Breast cancer Family/Other Myocardial infarction Father 55 yrs Mother 92 yrs Social History Smoking Status: Former smoker Tobacco Type: cigarettes Substance Use Type: None Meds Medications and Allergies Allergies No Known Allergies Allergy (Verified 04/27/23 13:08) Home Medications atorvastatin 10 mg tablet 10 mg PO QAM 03/02/18 [History Confirmed 04/27/23] vortioxetine 10 mg tablet 10 mg PO DAILY 03/02/18 [History Confirmed 03/24/23] mirtazapine 15 mg tablet 15 mg PO QHS 10/27/22 [History Confirmed 04/27/23] allopurinol 300 mg tablet 300 mg PO QAM 11/20/22 [History Confirmed 04/27/23] aripiprazole 5 mg tablet 5 mg PO QAM 12/19/22 [History Confirmed 03/24/23] carvedilol 3.125 mg tablet 3.125 mg PO BID.WITH.MEALS #0 tabs 12/22/22 [Rx Confirmed 03/24/23] tamsulosin 0.4 mg capsule 0.4 mg PO DAILY #0 caps 12/22/22 [Rx Confirmed 03/24/23] potassium chloride 20 mEq tablet,extended release 20 meq PO DAILY 02/28/23 [History Confirmed 03/24/23] acetaminophen 500 mg tablet 1,000 mg (2 x 500 mg) PO Q6H PRN Fever Or Pain #0 tabs 03/08/23 [Rx Confirmed 04/27/23] ascorbic acid (vitamin C) 500 mg tablet (Vitamin C) 500 mg PO BID.WITH.BFAST.LUNCH #0 tabs 03/08/23 [Rx Confirmed 03/24/23] aspirin 81 mg tablet,delayed release 81 mg PO DAILY #0 tabs 03/08/23 [Rx Confirmed 04/27/23] calcium carbonate 500 mg calcium (1,250 mg) tablet (Oyster Shell Calcium 500) 500 mg PO BID.WITH.BFAST.LUNCH #0 tabs 03/08/23 [Rx Confirmed 03/24/23] cholecalciferol (vitamin D3) 10 mcg (400 unit) tablet (Vitamin D3) 10 mcg PO BID.WITH.MEALS #0 tabs 03/08/23 [Rx Confirmed 03/24/23] docusate sodium 100 mg capsule 200 mg (2 x 100 mg) PO BID #0 caps 03/08/23 [Rx Confirmed 03/24/23] ferrous sulfate 324 mg (65 mg iron) tablet,delayed release 324 mg PO Q48HR #0 tabs 03/08/23 [Rx Confirmed 03/24/23] furosemide 40 mg tablet 40 mg PO BID@0800,1600 #0 tabs 03/08/23 [Rx Confirmed 03/24/23] multivitamin with folic acid 400 mcg tablet (Thera) 1 tab PO DAILY #0 tabs 03/08/23 [Rx Confirmed 03/24/23] pantoprazole 40 mg tablet,delayed release 40 mg PO DAILY #0 tabs 03/08/23 [Rx Confirmed 03/24/23] pregabalin 50 mg capsule (Lyrica) 50 mg PO TID 14 days #42 caps 03/08/23 [Rx Confirmed 04/27/23] trazodone 50 mg tablet 50 mg PO QHS PRN sleep #14 tabs 03/08/23 [Rx Confirmed 03/24/23] lxlncrp-befipciwphkje-hwurdkxy 2 tab PO BID PRN migraine 04/27/23 [History Confirmed 04/27/23] famotidine 40 mg tablet 40 mg PO DAILY 04/27/23 [History Confirmed 04/27/23] Exam Physical Exam Vital Signs: Temp Pulse Resp BP Pulse Ox O2 Del Method 97.6 F 65 18 150/83 H 97 Room Air 04/27/23 22:43 04/28/23 04:00 04/28/23 04:00 04/28/23 04:00 04/28/23 04:00 04/28/23 04:00 Results - Psychiatry Labs 04/28/23 06:15 04/28/23 06:15 Psychiatry Labs: 04/27/23 04/27/23 04/27/23 14:04 16:15 20:49 RBC Cancelled 4.02 Hgb Cancelled 12.7 L Hct Cancelled 39.0 MCV Cancelled 97.0 MCH Cancelled 31.6 MCHC Cancelled 32.6 RDW Cancelled 18.7 H Plt Count Cancelled 157 MPV Cancelled 10.0 Sodium 140 Potassium Cancelled 3.8 Chloride 103 Carbon Dioxide 29.4 Anion Gap BUN 18 Creatinine 1.21 Calcium 9.3 Total Bilirubin 0.8 AST 21 ALT 12 Alkaline Phosphatase 70 Total Protein 8.1 Albumin 4.0 Urine Color Urine Appearance Urine pH Ur Specific Clio Urine Protein Urine Glucose (UA) Urine Ketones Urine Occult Blood Urine Nitrite Ur Leukocyte Esterase Urine RBC Urine WBC 04/27/23 04/28/23 23:30 06:15 RBC 3.68 L Hgb 11.8 L Hct 35.6 L MCV 96.8 MCH 32.0 MCHC 33.1 RDW 18.7 H Plt Count 147 L MPV 10.3 H Sodium 139 Potassium 3.9 Chloride 103 Carbon Dioxide 27.5 Anion Gap 12.4 BUN 20 Creatinine 1.34 H Calcium 8.8 Total Bilirubin 0.7 AST 15 ALT 10 Alkaline Phosphatase 77 Total Protein 7.3 Albumin 3.8 Urine Color Yellow Urine Appearance Clear Urine pH 6.0 Ur Specific Clio 1.020 Urine Protein 300 H Urine Glucose (UA) Normal Urine Ketones Negative Urine Occult Blood Negative Urine Nitrite Negative Ur Leukocyte Esterase Negative Urine RBC 0-1 Urine WBC 1-2 Assessment/Plan (1) Knee pain, right: Qualifiers: Chronicity: chronic Qualified Code(s): M25.561 - Pain in right knee; G89.29 - Other chronic pain (2) Encounter for assessment of decision-making capacity: Plan Understanding: Patient does not seem to understand that his medical problems. Hehas short term memory problems. Appreciation: Patient cannot appreciate the severity of his medical condition edwige does not understand or recall anything about his medical problems. Patient lacks capacity at this time. May utilize next of Kin or apply for guardian. Monitor mental status. Documented By: William Williamson MD 4 1000 Signed By: <Electronically signed by William Williamson MD> 04/28/23 1012 [facility] Work Phone: [phone]) [phone] History and physical note Author Mariano Dennis [facility] April 27, 2023 10:13pm Note Date/Time April 27, 2023 5:5 6pm [facility] [address] [place] [address] Hospitalist H&P Signed Patient: Hilary Maldonado MR#: [id number] : 1945 Acct:[id number] Age/Sex: 78 / M Adm Date: 4 Loc: Room: [address] [place] [address] Type: ADM INOo Attending Dr: Mariano Dennis DO Copies to: Tyree Ambrosio Jr, DO Mariano Dennis DO~ HPI DATE OF EXAMINATION: 04/27/23 CHIEF COMPLAINT: Knee pain HISTORY OF PRESENT ILLNESS: This patient is a 78 male with a complex past medical history recently discharged from this facility March 08 of this year. He was at a detention facility from that time forward reportedly and a few days ago it is reportedly left AGAINST MEDICAL ADVICE. Precisely he also of his presentation are unclear but EMS was called on the patient with concerns of his wellbeing prompting his presentation. His complaint primarily is his right knee pain and reportedly requests a knee replacement. His workup in the ER today is relatively benign with stable vital signs breathing comfortably on room air. Nofevers or signs of distress. Mild anemia with a hemoglobin of 12.7, borderline thrombocytopenia of 157, white blood cell count 8.2. Slight distribution width elevated 22.60. Chemistries show a serum creatinine of 1.21 with improvement inrenal function from his inpatient labs in February. No LFT abnormalities. He has cardiomegaly and vascular congestion on chest x-ray with known systolic congestive heart failure, unchanged from prior films. A full review x- ray of his right knee shows unchanged moderate degenerative changes. He was most concerned about receiving his Lyrica that he is regularly prescribed stating he did not have this medication and was subsequently given a 50 mg dose of this. He was admitted for ongoing management of his pain, generalized weakness and overall wellbeing with concerns of inability to care for self. Review of his recent hospitalization indicates he has a general functional and mental decline at that time. And his ability to care for himself at home was significantly put into question prompting his discharge to skilled facility. The left parotid mass was noted at that time with ENT consultation and consideration of surgical intervention however with his cardiac risk this was deferred to a tertiary care center to be done and thus deferred. Brain MRI showed diffuse atrophy and remote left occipital lobe infarct with normal bleeding. Aspirin per neurology recommendations on discharge. Nephrotic range proteinuria and monoclonal gammopathy with IgA predominance also was diagnosed with nephrology and medical oncology consult for evaluation at that time. Per the discharge summary he was declared not competent to make his medical and financial decisions. It is unclear why he was allowed to leave the skilled carefacility based on at that time was thought to be clearly documented incompetenceand rapidly progressing dementia. In the interval time he was also seen by oncology on March 24 of this year forpossibly malignant parotid mass. Ultimately was deferred for a 2-month follow-up given questionable ability to make medical decisions at that visit. Reportedly received a radiation oncology evaluation but declined this treatment. Ultimately unclear status of malignancy and prognosis persist. Physical Examination: GENERAL APPEARANCE: Alert, oriented, mildly tangential elderly male HEENT: NCAT, MMM NECK: Neck soft w/o masses, no JVD CARDIAC: Normal S1 and S2. No S3, S4 or murmurs. LUNGS: Clear to auscultation bilaterally. no wheeze/rhonchi/rales ABDOMEN: Positive bowel sounds. Soft, nontender. No guarding or signs of an acute abdomen MUSCULOSKELETAL: No joint erythema or tenderness. EXTREMITIES: No clubbing, cyanosis or edema NEUROLOGICAL: No focal deficits PSYCHIATRIC: Appropriate mood and affect Assessment and plan: 1. Right knee osteoarthritis This is the patient's primary complaint at the moment and is quite convinced that he needs a possible surgery. Ultimately he cannot give capacity for such an operation and next of kin will be needed but will consult orthopedic surgery for any recommendations for less invasive means. Will provide topical Voltaren gel as needed. Ideally long-term NSAIDs for this would not be an option. Will provided IV Toradol as needed x 1 to see if this assists in his pain. Alternatively joint injections locally could work. I have continued his previously noted Lyrica. He seems concerned that I will be the ones to perform his surgery on the knee and I assured him this is not going to happen. History of gout is noted but the knee is not significantly warm to suggest acute flare. 2. Dementia The details of his presentation are not precisely clear but per the documentation it seems he was declared incompetent by providers on discharge andof March and sent to a [facility]. He was either allowed to leave or eloped from [facility] and somehow Adult Protective Services called EMS for wellness check who subsequently brought the patient to the ER. Medically at the moment the patient appears quite healthy and alert with stable vital signs and labs that are significantly improved from his recenthospitalization. It is unclear if he has been compliant with any of his previously prescribed meds since his leaving the detention. I will consult psych for repeat competency evaluation as at the moment he does not quite seem competent upon meeting him but his overall state of health at the moment appearsgood. Resume home psych meds when verified. As needed behavioral medications can be added should need arise. 3. Parotid mass Further treatment and workup of this potentially malignant process is still pending and largely on hold due to questions of competency based on chart review. He does not appear cachectic or to have a progressing aggressive malignancy at this time. 4. Chronic systolic congestive heart failure 5. Nephrotic syndrome 6. Monoclonal gammopathy of renal significance 7. Hypertension 8. History of nephrotic syndrome 9. COPD 10. Gout 11. History of nicotine abuse Despite his multiple comorbid illnesses diagnosed on recent hospitalization his labs and vital signs all appear diffusely stable and actually improved from thattime. Will need to obtain a accurate medication list and resume appropriate heart failure and other medications that he needs regularly. He reports chronicongoing cough since his discharge that is mostly nonproductive. He does not have signs of infection at the moment and his breath sounds are fairly clear. Will order some Mucinex to assist in clearance but follow-up for any evidence ofinfection. He appears to been discharged on aripiprazole and vortioxetine thesecan be continued when verified. Will check a urinalysis to ensure no occult UTIbut would expect to see ongoing proteinuria. A gamma gap of 4.1 is noted on hisLFTs today which does not seem to be noted previously. 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 Ultimately he has numerous findings that could suggest possibly benign or potentially more malignant malignant process with questionable levels of positivity and abnormalities on labs. This is in addition to his parotid mass. Ultimately until stable healthcare guardian and statement clerks manager of his medical issues can be established further workup and potential treatment if warranted will needto be deferred. [facility] Medical History Dementia Parotid mass Gout Chronic pain Hyperlipemia HTN (hypertension) COPD (chronic obstructive pulmonary disease) Family History Family/Other Lung cancer Colon cancer Father Myocardial infarction Mother Breast cancer Family/Other Myocardial infarction Father 55 yrs Mother 92 yrs Social History Smoking Status: Unknown if ever smoked Tobacco Type: cigarettes Substance Use Type: Unknown Meds Medications and Allergies Allergies No Known Allergies Allergy (Verified 04/27/23 13:08) Home Medications atorvastatin 10 mg tablet 10 mg PO QAM 03/02/18 [History Confirmed 04/27/23] vortioxetine 10 mg tablet 10 mg PO DAILY 03/02/18 [History Confirmed 03/24/23] mirtazapine 15 mg tablet 15 mg PO QHS 10/27/22 [History Confirmed 04/27/23] allopurinol 300 mg tablet 300 mg PO QAM 11/20/22 [History Confirmed 04/27/23] aripiprazole 5 mg tablet 5 mg PO QAM 12/19/22 [History Confirmed 03/24/23] carvedilol 3.125 mg tablet 3.125 mg PO BID.WITH.MEALS #0 tabs 12/22/22 [Rx Confirmed 03/24/23] tamsulosin 0.4 mg capsule 0.4 mg PO DAILY #0 caps 12/22/22 [Rx Confirmed 03/24/23] potassium chloride 20 mEq tablet,extended release 20 meq PO DAILY 02/28/23 [History Confirmed 03/24/23] acetaminophen 500 mg tablet 1,000 mg (2 x 500 mg) PO Q6H PRN Fever Or Pain #0 tabs 03/08/23 [Rx Confirmed 04/27/23] ascorbic acid (vitamin C) 500 mg tablet (Vitamin C) 500 mg PO BID.WITH.BFAST.LUNCH #0 tabs 03/08/23 [Rx Confirmed 03/24/23] aspirin 81 mg tablet,delayed release 81 mg PO DAILY #0 tabs 03/08/23 [Rx Confirmed 04/27/23] calcium carbonate 500 mg calcium (1,250 mg) tablet (Oyster Shell Calcium 500) 500 mg PO BID.WITH.BFAST.LUNCH #0 tabs 03/08/23 [Rx Confirmed 03/24/23] cholecalciferol (vitamin D3) 10 mcg (400 unit) tablet (Vitamin D3) 10 mcg PO BID.WITH.MEALS #0 tabs 03/08/23 [Rx Confirmed 03/24/23] docusate sodium 100 mg capsule 200 mg (2 x 100 mg) PO BID #0 caps 03/08/23 [Rx Confirmed 03/24/23] ferrous sulfate 324 mg (65 mg iron) tablet,delayed release 324 mg PO Q48HR #0 tabs 03/08/23 [Rx Confirmed 03/24/23] furosemide 40 mg tablet 40 mg PO BID@0800,1600 #0 tabs 03/08/23 [Rx Confirmed 03/24/23] multivitamin with folic acid 400 mcg tablet (Thera) 1 tab PO DAILY #0 tabs 03/08/23 [Rx Confirmed 03/24/23] pantoprazole 40 mg tablet,delayed release 40 mg PO DAILY #0 tabs 03/08/23 [Rx Confirmed 03/24/23] pregabalin 50 mg capsule (Lyrica) 50 mg PO TID 14 days #42 caps 03/08/23 [Rx Confirmed 04/27/23] trazodone 50 mg tablet 50 mg PO QHS PRN sleep #14 tabs 03/08/23 [Rx Confirmed 03/24/23] nbuacfo-cixddukwqhusa-yefjryex 2 tab PO BID PRN migraine 04/27/23 [History Confirmed 04/27/23] famotidine 40 mg tablet 40 mg PO DAILY 04/27/23 [History Confirmed 04/27/23] Exam Physical Exam Vital Signs: Temp Pulse Resp BP Pulse Ox O2 Del Method 97.6 F 74 17 140/75 98 Room Air 04/27/23 13:12 04/27/23 15:48 04/27/23 13:12 04/27/23 13:12 04/27/23 13:12 04/27/23 13:12 Results - Hospitalist H&P Lab Results Labs: Laboratory Last Values Corrected WBC 8.2 X10E3/uL (4.1-10.5) 04/27/23 16:15 Uncorrected WBC Count 8.2 x10E3/uL (4.1-10.5) 04/27/23 16:15 RBC 4.02 X10E6/uL (3.90-5.60) 04/27/23 16:15 Hgb 12.7 g/dL (13.0-17.0) L 04/27/23 16:15 Hct 39.0 % (38.8-50.0) 04/27/23 16:15 MCV 97.0 fl (83.5-101) 04/27/23 16:15 MCH 31.6 pg (27.5-35.2) 04/27/23 16:15 MCHC 32.6 g/dL (32.5-35.6) 04/27/23 16:15 RDW 18.7 % (12.0-14.8) H 04/27/23 16:15 Plt Count 157 x10E3/uL (150-450) 04/27/23 16:15 MPV 10.0 fl (6.6-10.1) 04/27/23 16:15 Neut % (Auto) 62.4 % (.) 04/27/23 16:15 Lymph % (Auto) 20.6 % (.) 04/27/23 16:15 [place] % (Auto) 10.9 % (.) 04/27/23 16:15 Eos % (Auto) 5.5 % (.) 04/27/23 16:15 Baso % (Auto) 0.6 % (.) 04/27/23 16:15 Nucleat RBC Rel Count 0.1 /100 WBC (0-0.5) 04/27/23 16:15 Neut # (Auto) 5.1 x10E3/uL (1.8-7.7) 04/27/23 16:15 Lymph # (Auto) 1.7 x10E3/uL (1.00-4.8) 04/27/23 16:15 [place] # (Auto) 0.9 x10E3/uL (0.0-0.8) H 04/27/23 16:15 Eos # (Auto) 0.4 x10E3/uL (0.0-0.45) 04/27/23 16:15 Baso # (Auto) 0.1 x10E3/uL (0.0-0.2) 04/27/23 16:15 Monocyte Dist Width 22.60 % (0.00-20.00) H 04/27/23 16:15 Platelet Estimate Normal (Normal) 04/27/23 16:15 Plt Morphology Comment Normal (Normal) 04/27/23 16:15 RBC Morphology N/A 04/27/23 16:15 Anisocytosis Slight 04/27/23 16:15 PHA Creatinine Clear 59.44 04/27/23 14:04 Sodium 140 mmol/L (136-145) 04/27/23 14:04 Potassium Cancelled 04/27/23 16:15 Chloride 103 mmol/L (98-107) 04/27/23 14:04 Carbon Dioxide 29.4 mmol/L (21.0-31.0) 04/27/23 14:04 Anion Gap mEq/L (6.0-15.0) 04/27/23 14:04 BUN 18 mg/dL (7-25) 04/27/23 14:04 Creatinine 1.21 mg/dL (0.70-1.30) 04/27/23 14:04 Est GFR (CKD-EPI) > 60.0 mL/Min 04/27/23 14:04 Glucose 145 mg/dL (70-100) H 04/27/23 14:04 Calcium 9.3 mg/dL (8.6-10.3) 04/27/23 14:04 Total Bilirubin 0.8 mg/dl (0.3-1.0) 04/27/23 14:04 AST 21 U/L (13-39) 04/27/23 14:04 ALT 12 U/L (7-52) 04/27/23 14:04 Alkaline Phosphatase 70 U/L (34-104) 04/27/23 14:04 Total Protein 8.1 gm/dL (6.4-8.9) 04/27/23 14:04 Albumin 4.0 gm/dL (3.5-5.7) 04/27/23 14:04 Globulin 4.1 gm/dL 04/27/23 14:04 Albumin/Globulin Ratio 1.0 04/27/23 14:04 Assessment & Plan Assessment/Plan (1) Knee pain, right: Plan as above IP vs OBS Justification Based on differential dx, clinical care plan, and risk of adverse events, if untreated, in my clinical judgement this patient requires an acute care setting as: INPATIENT because of an expectation of an over 2 midnight stay. Estimated length of stay (# of days): 3 Documented By: Mariano Dennis DO 04/27/23 17 45 Signed By: <Electronically signed by Mariano Dennis DO> 04/27/23 7849 [facility] Work Phone: [phone]) 342-789503-14-2024 History and physical note Author Mariano Dennis [facility] April 27, 2023 10:13pm Note Date/Time April 27, 2023 5:5 6pm [facility] [address] [place] [address] Hospitalist H&P Signed Patient: Hilary Maldonado MR#: [id number] : 1945 Acct:[id number] Age/Sex: 78 / M Adm Date: 4 Loc: Room: [address] [place] [address] Type: ADM INOo Attending Dr: Mariano Dennis DO Copies to: Tyree Ambrosio Jr, DO Mariano Dennis, ~ HPI DATE OF EXAMINATION: 04/27/23 CHIEF COMPLAINT: Knee pain HISTORY OF PRESENT ILLNESS: This patient is a 78 male with a complex past medical history recently discharged from this facility March 08 of this year. He was at a detention facility from that time forward reportedly and a few days ago it is reportedly left AGAINST MEDICAL ADVICE. Precisely he also of his presentation are unclear but EMS was called on the patient with concerns of his wellbeing prompting his presentation. His complaint primarily is his right knee pain and reportedly requests a knee replacement. His workup in the ER today is relatively benign with stable vital signs breathing comfortably on room air. Nofevers or signs of distress. Mild anemia with a hemoglobin of 12.7, borderline thrombocytopenia of 157, white blood cell count 8.2. Slight distribution width elevated 22.60. Chemistries show a serum creatinine of 1.21 with improvement inrenal function from his inpatient labs in February. No LFT abnormalities. He has cardiomegaly and vascular congestion on chest x-ray with known systolic congestive heart failure, unchanged from prior films. A full review x- ray of his right knee shows unchanged moderate degenerative changes. He was most concerned about receiving his Lyrica that he is regularly prescribed stating he did not have this medication and was subsequently given a 50 mg dose of this. He was admitted for ongoing management of his pain, generalized weakness and overall wellbeing with concerns of inability to care for self. Review of his recent hospitalization indicates he has a general functional and mental decline at that time. And his ability to care for himself at home was significantly put into question prompting his discharge to skilled facility. The left parotid mass was noted at that time with ENT consultation and consideration of surgical intervention however with his cardiac risk this was deferred to a tertiary care center to be done and thus deferred. Brain MRI showed diffuse atrophy and remote left occipital lobe infarct with normal bleeding. Aspirin per neurology recommendations on discharge. Nephrotic range proteinuria and monoclonal gammopathy with IgA predominance also was diagnosed with nephrology and medical oncology consult for evaluation at that time. Per the discharge summary he was declared not competent to make his medical and financial decisions. It is unclear why he was allowed to leave the skilled carefacility based on at that time was thought to be clearly documented incompetenceand rapidly progressing dementia. In the interval time he was also seen by oncology on March 24 of this year forpossibly malignant parotid mass. Ultimately was deferred for a 2-month follow-up given questionable ability to make medical decisions at that visit. Reportedly received a radiation oncology evaluation but declined this treatment. Ultimately unclear status of malignancy and prognosis persist. Physical Examination: GENERAL APPEARANCE: Alert, oriented, mildly tangential elderly male HEENT: NCAT, MMM NECK: Neck soft w/o masses, no JVD CARDIAC: Normal S1 and S2. No S3, S4 or murmurs. LUNGS: Clear to auscultation bilaterally. no wheeze/rhonchi/rales ABDOMEN: Positive bowel sounds. Soft, nontender. No guarding or signs of an acute abdomen MUSCULOSKELETAL: No joint erythema or tenderness. EXTREMITIES: No clubbing, cyanosis or edema NEUROLOGICAL: No focal deficits PSYCHIATRIC: Appropriate mood and affect Assessment and plan: 1. Right knee osteoarthritis This is the patient's primary complaint at the moment and is quite convinced that he needs a possible surgery. Ultimately he cannot give capacity for such an operation and next of kin will be needed but will consult orthopedic surgery for any recommendations for less invasive means. Will provide topical Voltaren gel as needed. Ideally long-term NSAIDs for this would not be an option. Will provided IV Toradol as needed x 1 to see if this assists in his pain. Alternatively joint injections locally could work. I have continued his previously noted Lyjose la. He seems concerned that I will be the ones to perform his surgery on the knee and I assured him this is not going to happen. History of gout is noted but the knee is not significantly warm to suggest acute flare. 2. Dementia The details of his presentation are not precisely clear but per the documentation it seems he was declared incompetent by providers on discharge andof March and sent to a [facility]. He was either allowed to leave or eloped from [facility] and somehow Adult Protective Services called EMS for wellness check who subsequently brought the patient to the ER. Medically at the moment the patient appears quite healthy and alert with stable vital signs and labs that are significantly improved from his recenthospitalization. It is unclear if he has been compliant with any of his previously prescribed meds since his leaving the detention. I will consult psych for repeat competency evaluation as at the moment he does not quite seem competent upon meeting him but his overall state of health at the moment appearsgood. Resume home psych meds when verified. As needed behavioral medications can be added should need arise. 3. Parotid mass Further treatment and workup of this potentially malignant process is still pending and largely on hold due to questions of competency based on chart review. He does not appear cachectic or to have a progressing aggressive malignancy at this time. 4. Chronic systolic congestive heart failure 5. Nephrotic syndrome 6. Monoclonal gammopathy of renal significance 7. Hypertension 8. History of nephrotic syndrome 9. COPD 10. Gout 11. History of nicotine abuse Despite his multiple comorbid illnesses diagnosed on recent hospitalization his labs and vital signs all appear diffusely stable and actually improved from thattime. Will need to obtain a accurate medication list and resume appropriate heart failure and other medications that he needs regularly. He reports chronicongoing cough since his discharge that is mostly nonproductive. He does not have signs of infection at the moment and his breath sounds are fairly clear. Will order some Mucinex to assist in clearance but follow-up for any evidence ofinfection. He appears to been discharged on aripiprazole and vortioxetine thesecan be continued when verified. Will check a urinalysis to ensure no occult UTIbut would expect to see ongoing proteinuria. A gamma gap of 4.1 is noted on hisLFTs today which does not seem to be noted previously. 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 Ultimately he has numerous findings that could suggest possibly benign or potentially more malignant malignant process with questionable levels of positivity and abnormalities on labs. This is in addition to his parotid mass. Ultimately until stable healthcare guardian and statement clerks manager of his medical issues can be established further workup and potential treatment if warranted will needto be deferred. [facility] Medical History Dementia Parotid mass Gout Chronic pain Hyperlipemia HTN (hypertension) COPD (chronic obstructive pulmonary disease) Family History Family/Other Lung cancer Colon cancer Father Myocardial infarction Mother Breast cancer Family/Other Myocardial infarction Father 55 yrs Mother 92 yrs Social History Smoking Status: Unknown if ever smoked Tobacco Type: cigarettes Substance Use Type: Unknown Meds Medications and Allergies Allergies No Known Allergies Allergy (Verified 04/27/23 13:08) Home Medications atorvastatin 10 mg tablet 10 mg PO QAM 03/02/18 [History Confirmed 04/27/23] vortioxetine 10 mg tablet 10 mg PO DAILY 03/02/18 [History Confirmed 03/24/23] mirtazapine 15 mg tablet 15 mg PO QHS 10/27/22 [History Confirmed 04/27/23] allopurinol 300 mg tablet 300 mg PO QAM 11/20/22 [History Confirmed 04/27/23] aripiprazole 5 mg tablet 5 mg PO QAM 12/19/22 [History Confirmed 03/24/23] carvedilol 3.125 mg tablet 3.125 mg PO BID.WITH.MEALS #0 tabs 12/22/22 [Rx Confirmed 03/24/23] tamsulosin 0.4 mg capsule 0.4 mg PO DAILY #0 caps 12/22/22 [Rx Confirmed 03/24/23] potassium chloride 20 mEq tablet,extended release 20 meq PO DAILY 02/28/23 [History Confirmed 03/24/23] acetaminophen 500 mg tablet 1,000 mg (2 x 500 mg) PO Q6H PRN Fever Or Pain #0 tabs 03/08/23 [Rx Confirmed 04/27/23] ascorbic acid (vitamin C) 500 mg tablet (Vitamin C) 500 mg PO BID.WITH.BFAST.LUNCH #0 tabs 03/08/23 [Rx Confirmed 03/24/23] aspirin 81 mg tablet,delayed release 81 mg PO DAILY #0 tabs 03/08/23 [Rx Confirmed 04/27/23] calcium carbonate 500 mg calcium (1,250 mg) tablet (Oyster Shell Calcium 500) 500 mg PO BID.WITH.BFAST.LUNCH #0 tabs 03/08/23 [Rx Confirmed 03/24/23] cholecalciferol (vitamin D3) 10 mcg (400 unit) tablet (Vitamin D3) 10 mcg PO BID.WITH.MEALS #0 tabs 03/08/23 [Rx Confirmed 03/24/23] docusate sodium 100 mg capsule 200 mg (2 x 100 mg) PO BID #0 caps 03/08/23 [Rx Confirmed 03/24/23] ferrous sulfate 324 mg (65 mg iron) tablet,delayed release 324 mg PO Q48HR #0 tabs 03/08/23 [Rx Confirmed 03/24/23] furosemide 40 mg tablet 40 mg PO BID@0800,1600 #0 tabs 03/08/23 [Rx Confirmed 03/24/23] multivitamin with folic acid 400 mcg tablet (Thera) 1 tab PO DAILY #0 tabs 03/08/23 [Rx Confirmed 03/24/23] pantoprazole 40 mg tablet,delayed release 40 mg PO DAILY #0 tabs 03/08/23 [Rx Confirmed 03/24/23] pregabalin 50 mg capsule (Lyrica) 50 mg PO TID 14 days #42 caps 03/08/23 [Rx Confirmed 04/27/23] trazodone 50 mg tablet 50 mg PO QHS PRN sleep #14 tabs 03/08/23 [Rx Confirmed 03/24/23] msjlhrf-wrnwyvmoqljks-zexjvgrk 2 tab PO BID PRN migraine 04/27/23 [History Confirmed 04/27/23] famotidine 40 mg tablet 40 mg PO DAILY 04/27/23 [History Confirmed 04/27/23] Exam Physical Exam Vital Signs: Temp Pulse Resp BP Pulse Ox O2 Del Method 97.6 F 74 17 140/75 98 Room Air 04/27/23 13:12 04/27/23 15:48 04/27/23 13:12 04/27/23 13:12 04/27/23 13:12 04/27/23 13:12 Results - Hospitalist H&P Lab Results Labs: Laboratory Last Values Corrected WBC 8.2 X10E3/uL (4.1-10.5) 04/27/23 16:15 Uncorrected WBC Count 8.2 x10E3/uL (4.1-10.5) 04/27/23 16:15 RBC 4.02 X10E6/uL (3.90-5.60) 04/27/23 16:15 Hgb 12.7 g/dL (13.0-17.0) L 04/27/23 16:15 Hct 39.0 % (38.8-50.0) 04/27/23 16:15 MCV 97.0 fl (83.5-101) 04/27/23 16:15 MCH 31.6 pg (27.5-35.2) 04/27/23 16:15 MCHC 32.6 g/dL (32.5-35.6) 04/27/23 16:15 RDW 18.7 % (12.0-14.8) H 04/27/23 16:15 Plt Count 157 x10E3/uL (150-450) 04/27/23 16:15 MPV 10.0 fl (6.6-10.1) 04/27/23 16:15 Neut % (Auto) 62.4 % (.) 04/27/23 16:15 Lymph % (Auto) 20.6 % (.) 04/27/23 16:15 [place] % (Auto) 10.9 % (.) 04/27/23 16:15 Eos % (Auto) 5.5 % (.) 04/27/23 16:15 Baso % (Auto) 0.6 % (.) 04/27/23 16:15 Nucleat RBC Rel Count 0.1 /100 WBC (0-0.5) 04/27/23 16:15 Neut # (Auto) 5.1 x10E3/uL (1.8-7.7) 04/27/23 16:15 Lymph # (Auto) 1.7 x10E3/uL (1.00-4.8) 04/27/23 16:15 [place] # (Auto) 0.9 x10E3/uL (0.0-0.8) H 04/27/23 16:15 Eos # (Auto) 0.4 x10E3/uL (0.0-0.45) 04/27/23 16:15 Baso # (Auto) 0.1 x10E3/uL (0.0-0.2) 04/27/23 16:15 Monocyte Dist Width 22.60 % (0.00-20.00) H 04/27/23 16:15 Platelet Estimate Normal (Normal) 04/27/23 16:15 Plt Morphology Comment Normal (Normal) 04/27/23 16:15 RBC Morphology N/A 04/27/23 16:15 Anisocytosis Slight 04/27/23 16:15 PHA Creatinine Clear 59.44 04/27/23 14:04 Sodium 140 mmol/L (136-145) 04/27/23 14:04 Potassium Cancelled 04/27/23 16:15 Chloride 103 mmol/L (98-107) 04/27/23 14:04 Carbon Dioxide 29.4 mmol/L (21.0-31.0) 04/27/23 14:04 Anion Gap mEq/L (6.0-15.0) 04/27/23 14:04 BUN 18 mg/dL (7-25) 04/27/23 14:04 Creatinine 1.21 mg/dL (0.70-1.30) 04/27/23 14:04 Est GFR (CKD-EPI) > 60.0 mL/Min 04/27/23 14:04 Glucose 145 mg/dL (70-100) H 04/27/23 14:04 Calcium 9.3 mg/dL (8.6-10.3) 04/27/23 14:04 Total Bilirubin 0.8 mg/dl (0.3-1.0) 04/27/23 14:04 AST 21 U/L (13-39) 04/27/23 14:04 ALT 12 U/L (7-52) 04/27/23 14:04 Alkaline Phosphatase 70 U/L (34-104) 04/27/23 14:04 Total Protein 8.1 gm/dL (6.4-8.9) 04/27/23 14:04 Albumin 4.0 gm/dL (3.5-5.7) 04/27/23 14:04 Globulin 4.1 gm/dL 04/27/23 14:04 Albumin/Globulin Ratio 1.0 04/27/23 14:04 Assessment & Plan Assessment/Plan (1) Knee pain, right: Plan as above IP vs OBS Justification Based on differential dx, clinical care plan, and risk of adverse events, if untreated, in my clinical judgement this patient requires an acute care setting as: INPATIENT because of an expectation of an over 2 midnight stay. Estimated length of stay (# of days): 3 Documented By: Mariano Dennis DO 04/27/23 17 45 Signed By: <Electronically signed by Mariano Dennis DO> 04/27/23 8767 [facility] Work Phone: 1(585) 240-517601-30-2024 History of Present illness Narrative* Michelle Gonzales MD - 03/14/2023 2:00 PM EST History Of Present Illness Hilary Maldonado is a 78 y.o. male presenting for carotid evaluation. Patient presents with his sister and his [id number] who provide the history. He was sent for preoperative evaluation prior to parotidectomy. He does have a history of stroke in the past. Recent carotid duplex reveals LICA occlusion and R ICA stenosis of 50 to 69%. Past Medical History He has a past medical history of Anxiety, Arthritis, Asthma, Coronary artery disease, Depression, GERD (gastroesophageal reflux disease), HL (hearing loss), Hyperlipidemia, Hypertension, Parotid mass, Shortness of breath, and Vision loss. Surgical History He has a past surgical history that includes Hip Arthroplasty and Knee Arthroplasty (Left). Social History He reports that he has been smoking cigarettes. He uses smokeless tobacco. He reports that he does not currently use alcohol. He reports that he does not use drugs. Family History Family History Problem Relation Name Age of Onset No Known Problems Mother Heart disease Father Allergies Altace [ramipril], Jibn-nvtlzw-aeca [nutritional supplement-fiber], Morphine, Cusseta flavor, and Egg Review of Systems Reason unable to perform ROS: AMS. Physical Exam Vitals reviewed. Constitutional: General: He is not in acute distress. Appearance: Normal appearance. He is normal weight. HENT: Head: Normocephalic and atraumatic. Eyes: Extraocular Movements: Extraocular movements intact. Conjunctiva/sclera: Conjunctivae normal. Pupils: Pupils are equal, round, and reactive to light. Neck: Vascular: No carotid bruit. Cardiovascular: Rate and Rhythm: Normal rate and regular rhythm. Pulses: Normal pulses. Heart sounds: Normal heart sounds. Pulmonary: Effort: Pulmonary effort is normal. Breath sounds: Normal breath sounds. Abdominal: General: Abdomen is flat. Bowel sounds are normal. Palpations: Abdomen is soft. Musculoskeletal: General: No swelling or tenderness. Normal range of motion. Cervical back: Normal range of motion and neck supple. No tenderness. Skin: General: Skin is warm and dry. Capillary Refill: Capillary refill takes less than 2 seconds. Neurological: General: No focal deficit present. Mental Status: He is alert. Cranial Nerves: Cranial nerves 2-12 are intact. No cranial nerve deficit. Comments: Confined to wheelchair A&Ox1 Psychiatric: Mood and Affect: Affect is inappropriate. Behavior: Behavior is agitated. Last Recorded Vitals There were no vitals taken for this visit. Relevant Results Current Outpatient Medications: albuterol 2.5 mg /3 mL (0.083 %) nebulizer solution, Take 3 mL (2.5 mg) by nebulization., Disp: , Rfl: allopurinol (Zyloprim) 300 mg tablet, Take 1 tablet (300 mg) by mouth once daily., Disp: , Rfl: ARIPiprazole (Abilify) 5 mg tablet, Take 1 tablet (5 mg) by mouth once daily., Disp: , Rfl: aspirin 81 mg EC tablet, Take 1 tablet (81 mg) by mouth once daily., Disp: , Rfl: atorvastatin (Lipitor) 10 mg tablet, Take 1 tablet (10 mg) by mouth once daily., Disp: , Rfl: carvedilol (Coreg) 3.125 mg tablet, Take by mouth 2 times a day with meals., Disp: , Rfl: famotidine (Pepcid) 40 mg tablet, Take 1 tablet (40 mg) by mouth once daily., Disp: , Rfl: loperamide (Imodium) 2 mg capsule, Take 1 capsule (2 mg) by mouth 4 times a day as needed for diarrhea., Disp: , Rfl: mirtazapine (Remeron) 15 mg tablet, Take 1 tablet (15 mg) by mouth once daily at bedtime., Disp: , Rfl: potassium chloride CR 10 mEq ER tablet, Take 1 tablet (10 mEq) by mouth 2 times a day. Do not crush, chew, or split., Disp: , Rfl: pregabalin (Lyrica) 100 mg capsule, Take 1 capsule (100 mg) by mouth 3 times a day., Disp: , Rfl: sennosides (Senokot) 8.6 mg tablet, Take 1 tablet (8.6 mg) by mouth once daily., Disp: , Rfl: tamsulosin (Flomax) 0.4 mg 24 hr capsule, Take 1 capsule (0.4 mg) by mouth once daily., Disp: , Rfl: traZODone (Desyrel) 150 mg tablet, Take 1 tablet (150 mg) by mouth once daily at bedtime., Disp: , Rfl: vortioxetine (Trintellix) 10 mg tablet tablet, Take 1 tablet (10 mg) by mouth once daily., Disp: , Rfl: Vascular US carotid artery duplex bilateral Result Date: 02/16/2023 [place] [id number] and Vascular Lab Report [facility] CAROTID ARTERY DUPLEX BILATERAL Patient Name: HILARY Andrew ELVIS Reading Physician: [id number] González Castillo MD, RPVI Study Date: 02/16/2023 Ordering Physician: [id number] DEEPALI OLSON MRN/PID: [id number] Technologist: Pollo Petty S Technologist 2: Date of /Age: 12 1945 / 78 years Gender: M Admission Status: Outpatient Location Performed: [facility] Diagnosis/ICD: Occlusion and stenosis of right carotid artery-I65.21 CPT Codes: 23268 Cerebrovascular Carotid Duplex scan complete Patient History CAD. Smoker: Current. CONCLUSIONS: Right Carotid: Findings are consistent with 50 to 69% stenosis of the right proximal internal carotid artery. Laminar flow seen by color Doppler. Right external carotid artery appears patent with no evidence of stenosis. The right vertebral artery is patent with antegrade flow. No evidence of hemodynamically significant stenosis in the right subclavian artery. Left Carotid: Findings are consistent with an occlusion of the left internal carotid artery. ECA patent retrograde branches. Unable to obtain a doppler dignal in the left CCA that is suggestive of occlusion. The leftvertebral artery is patent with antegrade flow. No evidence of hemodynamically significant stenosisin the left subclavian artery. Additional Findings: Technically difficult exam due to heavy breathing and patient anatomy. Imaging & Doppler Findings: Right Plaque Morph: The proximal right internal carotid artery demonstrates heterogenous, irregular and calcified plaque. The mid right internalcarotid artery demonstrates heterogenous, irregular and calcified plaque. The distal right common carotid artery demonstrates heterogenous, irregular and calcified plaque. Left Plaque Morph: The proximal left internal carotid artery demonstrates heterogenous, irregular and calcified plaque. The midleft internal carotid artery demonstrates heterogenous, irregular and calcified plaque. The distal l eft internal carotid artery demonstrates heterogenous, irregular and calcified plaque. The proximalleft external carotid artery demonstrates heterogenous, irregular and calcified plaque. The proximal left common carotid artery demonstrates heterogenous, irregular and calcified plaque. The mid leftcommon carotid artery demonstrates heterogenous, irregular and calcified plaque. The distal left common carotid artery demonstrates heterogenous, irregular and calcified plaque. Right Left PSV EDV PSV EDV 64 cm/s CCA P 0 cm/s CCA M 0 cm/s 59 cm/s CCA D 0 cm/s 171 cm/s 46 cm/s ICA P 0 cm/s 0 cm/s 159 cm/s 36 cm/s ICA M 0 cm/s 108 cm/s 30 cm/s ICA D 0 cm/s 0 cm/s 233 cm/s ECA 94 cm/s 18 cm/s 4 cm/s Vertebral 87 cm/s 14 cm/s 189 cm/s Subclavian 199 cm/s Right ICA/CCA Ratio 2.9 [id number] González Watkins RPVI Final Assessment/Plan Diagnoses and all orders for this visit: Carotid stenosis, right - Vascular US carotid artery duplex bilateral; Future 78yo male with LICA occlusion and R ICA stenosis of 50 to 69%. Given his left carotid artery is completely occluded, there is no indication for any surgical intervention. The right carotid is only mildly stenotic at 50 to 69% with a peak systolic velocity of 159 cm/s. This does not warrant any surgical intervention at this time, but rather would be best managed medically. He is currently on aspirin and atorvastatin, which is adequate therapy. I would not recommend any other changes prior to hisparotid surgery. He should follow-up in the vascular office in 1 year with repeat carotid duplex. I spent 45 minutes in the professional and overall care of this patient. Michelle Gonzales MD documented in this [facility] Work Phone: [phone]) 866-584212-05-2023 History of Present illness Narrative* Manjinder Galloway MD - 01/17/2023 12:50 PM EST Eldon Maldonado is a 77 y.o. male Chief Complaint Follow-up HPI Patient is here for follow-up from recent hospitalization and for history of coronary artery disease and to obtain the Pria risk assessment for possible carotid surgery and order knee surgery. The patient is known to have history of coronary artery disease with previous PCI to the circumflex with known occluded RCA. He presented with vague episode of mental status changes. His troponin was mildlyelevated. He was treated conservatively. Echocardiogram showed mild LV systolic dysfunction. Patient was noted to have carotid disease and my understanding is in the process of being evaluated for possible carotid endarterectomy. Following his discharge the patient was scheduled for a stress test on 12/29 but apparently he was no-show. Patient report that he is very sedentary. He reports shortness of breath. With very limited exercise tolerance due to arthritis and advanced age. The patient also appears to have mild degree of dementia. Assessment 1. Two-vessel coronary artery disease with known occlusion of the RCA and remote PCI to the left circumflex 2. Dyspnea on exertion and decreased exercise tolerance with recent documentation of cardiomyopathyunclear if it is related to progression of coronary artery disease. Patient was scheduled for a stress test but he did not show up 3. Right carotid disease being evaluated for possible carotid endarterectomy 4. Ischemic cardiomyopathy with LVEF around 45% 5. Hyperlipidemia 6. Patient requested preoperative risk assessment for possible carotid endarterectomy and or knee surgery Plan 1. Patient is on good medical therapy for ischemic heart disease including aspirin, beta-blockers and statin 2. Considering difficulty determining his functional status, complaint of shortness of breath and his recent hospitalization where he was noted to have cardiomyopathy and borderline elevation of his troponin I recommended proceeding with Lexiscan myocardial fusion study to rule out progression of coronary artery disease. This was scheduled last month but the patient did not show up. I informed the patient it would be difficult to determine his operative risk without objective assessment for ischemia 3. Follow-up after testing done 4. Will address preoperative risk after we review his stress test 5. Patient was counseled regarding risk factor modification Review of Systems Respiratory: Positive for shortness of breath. Musculoskeletal: Knee pain Visit Vitals BP 100/60 (BP Location: Right arm, Patient Position: Sitting) Pulse 64 Smoking Status Former Objective Physical Exam Constitutional: Appearance: Normal appearance. He is normal weight. HENT: Nose: Nose normal. Neck: Vascular: No carotid bruit. Cardiovascular: Rate and Rhythm: Normal rate. Pulses: Normal pulses. Heart sounds: Normal heart sounds. Pulmonary: Effort: Pulmonary effort is normal. Abdominal: General: Bowel sounds are normal. Palpations: Abdomen is soft. Genitourinary: Rectum: Normal. Musculoskeletal: General: Normal range of motion. Cervical back: Normal range of motion. Right lower leg: No edema. Left lower leg: No edema. Skin: General: Skin is warm and dry. Neurological: General: No focal deficit present. Mental Status: He is alert. Psychiatric: Mood and Affect: Mood normal. Behavior: Behavior normal. Thought Content: Thought content normal. Judgment: Judgment normal. Current Medications Current Outpatient Medications: albuterol 2.5 mg /3 mL (0.083 %) nebulizer solution, Take 3 mL (2.5 mg) by nebulization., Disp: , Rfl: allopurinol (Zyloprim) 300 mg tablet, Take 1 tablet (300 mg) by mouth once daily., Disp: , Rfl: ARIPiprazole (Abilify) 5 mg tablet, Take 1 tablet (5 mg) by mouth once daily., Disp: , Rfl: aspirin 81 mg EC tablet, Take 1 tablet (81 mg) by mouth once daily., Disp: , Rfl: atorvastatin (Lipitor) 10 mg tablet, Take 1 tablet (10 mg) by mouth once daily., Disp: , Rfl: carvedilol (Coreg) 3.125 mg tablet, Take by mouth 2 times a day with meals., Disp: , Rfl: diphenhydrAMINE (BENADryl) 50 mg capsule, Take 1 capsule (50 mg) by mouth every 6 hours if needed for itching., Disp: , Rfl: doxycycline (Adoxa) 100 mg tablet, Take 1 tablet (100 mg) by mouth 2 times a day. Take with a full glass of water and do not lie down for at least 30 minutes after, Disp: , Rfl: famotidine (Pepcid) 40 mg tablet, Take 1 tablet (40 mg) by mouth once daily., Disp: , Rfl: furosemide (Lasix) 20 mg tablet, Take 2 tablets (40 mg) by mouth once daily., Disp: , Rfl: loperamide (Imodium) 2 mg capsule, Take 1 capsule (2 mg) by mouth 4 times a day as needed for diarrhea., Disp: , Rfl: mirtazapine (Remeron) 15 mg tablet, Take 1 tablet (15 mg) by mouth once daily at bedtime., Disp: , Rfl: nicotine (Nicoderm CQ) 21 mg/24 hr patch, Place 1 patch on the skin once every 24 hours., Disp: , Rfl: potassium chloride CR 10 mEq ER tablet, Take 1 tablet (10 mEq) by mouth 2 times a day. Do not crush, chew, or split., Disp: , Rfl: pregabalin (Lyrica) 100 mg capsule, Take 1 capsule (100 mg) by mouth 3 times a day., Disp: , Rfl: sennosides (Senokot) 8.6 mg tablet, Take 1 tablet (8.6 mg) by mouth once daily., Disp: , Rfl: tamsulosin (Flomax) 0.4 mg 24 hr capsule, Take 1 capsule (0.4 mg) by mouth once daily., Disp: , Rfl: traZODone (Desyrel) 150 mg tablet, Take 1 tablet (150 mg) by mouth once daily at bedtime., Disp: , Rfl: vortioxetine (Trintellix) 10 mg tablet tablet, Take 1 tablet (10 mg) by mouth once daily., Disp: , Rfl: Assessment/Plan 1. Syncope and collapse Follow Up In Cardiology 2. Two-vessel coronary artery disease Follow Up In Cardiology Nuclear Stress Test 3. Ischemic cardiomyopathy Nuclear Stress Test 4. Carotid stenosis, right Nuclear Stress Test 5. Pre-operative cardiovascular examination Nuclear Stress Test 6. Shortness of breath 7. Mixed hyperlipidemia [facility] 1(180) 500-885612-05-2023 Instructions* Patient Instructions* Ingris Garzon LPN - 01/17/2023 12:50 PM EST Please bring all medicines, vitamins, and herbal supplements with you when you come to the office. Prescriptions will not be filled unless you are compliant with your follow up appointments or have a follow up appointment scheduled as per instruction of your physician. Refills should be requested at the time of your visit. Lexiscan Stress Follow up 3-4 months [facility] Work Phone: 1(459) 849-256811-21-2023 Consult note Author Norleena Beto [facility] January 03, 2023 10:53am Note Date/Time January 03, 2023 9:17am [facility] [place] [id number] Rad Onc Consult Note - OP Signed Patient: Hilary Maldonado MR#: [id number] : 1945 Acct:[id number] Age/Sex: 77 / M Type: REG RCR Copies to: Tyree Ambrosio Jr, DO Nicol Almanza,~ Assessment & Plan (1) Parotid mass Plan: Referral to Dr. Etienne at [facility] for left parotid mass Assessment: 77-year-old male with multiple medical comorbidities, and a long history of leaving AMA and being noncompliant with medical recommendations, more recently found to have a left parotid mass on imaging. FNA concerning for possible malignancy. Patient has been referred by local ENT as he is not a candidate forsurgical resection due to medical morbidities. Because his FNA is not convincing for malignancy, I recommend evaluation at a tertiary care center to see if additional tissue or surgical excision can be considered with a higher level of supportive care. Patient's sister communicates her understanding. We discussed that radiation would involve 7 weeks of daily treatment Monday through Monday with creation and immobilization in a thermoplastic mask. Patient previously did not complete an MRI and I do not see where he would comply with 7 weeks of radiation based on his history Based on my review of his imaging patient does need imaging of the lung as the CTA of the head neck is concerning for AP window LN. Unfortunately his head MRI was not done with contrast and one-way to consider more of a radiographic diagnosis would be to repeat the scan with contrast. Again if patient will comply with recommendations. I encouraged patient to speak to ENT at [facility]. He very clearly declines any radiation. HPI Date of Service: 01/03/23 HPI: 77-year-old male with a long history of multiple admissions to the hospital and leaving AMA as well as noncompliant with medical recommendations. [facility] he was found on the floor laying next to his couch covered in stool. He was found by home health care as he lives alone. While admitted he underwent a cardiac and vascular work-up. Brain MRI December 20, 2022 was negative for stroke. Showing atrophy and chronic ischemic changes. However exam was limited as patient refused to complete the entire exam. December 22 duplex of the carotid showed complete occlusion of the left common carotid artery with less than 50% stenosis noted in the right carotid artery. Report states there may be a patent internal carotid artery beyond the carotid bifurcation filling the collaterals of the left external carotid artery. Vascular surgery recommended only medical management and no surgical intervention. He is planned for duplex of the carotids yearly. December 23, 2022 CTA of the head and neck showed less than 50% stenosis of the right internal carotid artery. There was development of 2.1 cm solid-appearing oval lesion of the superficial portion of the left parotid. Prior to admission he had been evaluated by ENT for a left parotid mass FNA completed on December 12, 2022 was highly suspicious for malignancy. With a few atypical and slightly crushed squamoid epithelial clusters. Patient has been told by local ENT is not a surgical candidate and has been referred to discuss radiation. Today patient is accompanied by his sister who states she has POA as well as another family member. Biggest complaint for her sister's headaches and patient is also chronically hard of hearing. Patient states that the mass in the parotid has been there over a year and has more recently become bigger in size. Sister states patient touches the mass in the left parotid frequently. Patient does report some discomfort. [facility] - Medical History Medical History: Medical History (Last Reviewed 01/03/23 @ 10:16 by Sommer Almaguer) Chronic pain COPD (chronic obstructive pulmonary disease) Gout HTN (hypertension) Hyperlipemia - Family History Family History: Family History (Last Updated 01/03/23 @ 10:12 by Sommer Almaguer) Family/Other Lung cancer Colon cancer Father Myocardial infarction Mother Breast cancer Family/Other Myocardial infarction - Social History Smoking Status: Current every day smoker Tobacco Type: cigarettes Substance Use Type: None Home Medications & Allergies Allergies No Known Allergies Allergy (Verified 01/03/23 10:09) Home Medications atorvastatin 10 mg tablet 10 mg PO QAM 03/02/18 [History Confirmed 01/03/23] vortioxetine 10 mg tablet 10 mg PO DAILY 03/02/18 [History Confirmed 01/03/23] pregabalin 100 mg capsule (Lyrica) 100 mg PO TID 08/08/19 [History Confirmed 01/03/23] docusate sodium 100 mg capsule (DOK) 100 mg PO BID PRN Constipation 30 days #60 caps 08/09/19 [Rx Confirmed 01/03/23] mirtazapine 15 mg tablet 15 mg PO QHS 10/27/22 [History Confirmed 01/03/23] allopurinol 300 mg tablet 300 mg PO QAM 11/20/22 [History Confirmed 01/03/23] aspirin 81 mg tablet,delayed release 81 mg PO DAILY 11/20/22 [History Confirmed 01/03/23] famotidine 40 mg tablet 40 mg PO QHS 11/20/22 [History Confirmed 01/03/23] albuterol sulfate 2.5 mg/3 mL (0.083 %) solution for nebulization 2.5 mg inhalation BID 12/19/22 [History Confirmed 01/03/23] aripiprazole 5 mg tablet 5 mg PO QAM 12/19/22 [History Confirmed 01/03/23] diphenhydramine HCl 50 mg capsule (Banophen) 50 mg PO QHS PRN Insomnia 12/19/22 [History Confirmed 01/03/23] carvedilol 3.125 mg tablet 3.125 mg PO BID.WITH.MEALS #0 tabs 12/22/22 [Rx Confirmed 01/03/23] tamsulosin 0.4 mg capsule 0.4 mg PO DAILY #0 caps 12/22/22 [Rx Confirmed 01/03/23] pvtwtvy-cscrjuujrcuep-tnsbvvxe 250 mg-250 mg-65 mg tablet (Excedrin Migraine) 1 tab PO Q4-6H PRN Headache 01/03/23 [History Confirmed 01/03/23] Subjective ROS: I reviewed the 12-point Review of Systems with the patient as per our standard questionnaire. Objective Pain: 0/10 Karnofsky Performance Scale: 80%: Can perform normal activity with effort, some signs of disease Physical Exam: Physical Exam: General: alert, disheveled male, angry, no acute distress HEENT: normocephalic, EOMI, exam deferred-patient refuses radiation Dictated By: Franck Pérez MD DD/ 3 Signed By: <Electronically signed by Franck Pérez MD> 01/03/23 1052 [facility] Work Phone: 1(198) 964-615711-09-2023 Progress note Author Celeste Alfonso [facility] December 22, 2022 2:40pm Note Date/Time December 22, 2022 2 :40pm [facility] [address] [place] [address] Hospitalist Progress Note Signed Patient: Hilary Maldonado MR#: [id number] : 1945 Acct:[id number] Age/Sex: 77 / M Adm Date: 3 Loc: Room: [address] [place] [address] Type: ADM IN Attending Dr: Celeste Alfonso MD Copies to: ~ Date of Service: 12/22/2022 Subjective Subjective Narrative: Patient has been seen and examined today. He continues mentally to improve. Appears to be more awake and more cooperative, more appropriate Denies any complaints Patient is agreeable to go to rehabilitation Physical exam: General -awake, alert, oriented ?3, not in acute distress, appears to be more cooperative and more responsive today Cardiovascular -S1 with S2, no murmurs, no rubs, no gallops Pulmonary - clear to auscultation bilaterally Gastrointestinal - abdomen is soft, nondistended, nontender, bowel sounds positive, there is no rigidity, no rebound Extremities -no edema Neurological -right upper extremity weakness noteD, not sure if it is chronic oracute Laboratory work up and Imaging studies reviewed funeral pre arrangement specialist - reviewed EKG - personally reviewed by me. NSR with nonspecific changes, unchanged from the old 1 Exam Physical Exam Vital Signs: Temp Pulse Resp BP Pulse Ox O2 Del Method 36.7 C 52 L 20 131/82 98 Room Air 12/22/22 08:00 12/22/22 08:48 12/22/22 08:48 12/22/22 08:00 12/22/22 08:00 12/22/22 08:00 Objective Lab Results 12/21/22 14:59 12/21/22 14:59 Microbiology Results Microbiology 12/19/22 15:40 Blood - Right Hand Blood Culture - Preliminary No Growth 2 Days 12/19/22 14:55 Blood - Left Forearm Blood Culture - Preliminary No Growth 2 Days Meds Allergies and Active Meds Allergies No Known Allergies Allergy (Verified 12/19/22 13:41) Active Meds: Active Medications Generic Name Dose Route Start Last Admin Trade Name Freq PRN Reason Stop Dose Admin Acetaminophen 650 mg 12/19/22 21:40 12/21/22 01:31 Acetaminophen 325 Mg Tablet PO 12/19/23 21:39 650 mg Q4H PRN Administration Pain Scale 1 - 5 Albuterol 2.5 mg 12/20/22 21:00 12/22/22 08:47 Albuterol Neb 2.5 Mg/3 Ml Vial.Neb INHALATION 12/20/23 20:59 2.5 mg BID EDWIGE Administration Allopurinol 300 mg 12/20/22 09:00 12/22/22 09:27 Allopurinol 300 Mg Tablet PO 12/20/23 08:59 300 mg DAILY EDWIGE Administration Aripiprazole 5 mg 12/21/22 09:00 12/22/22 09:27 Aripiprazole 5 Mg Tablet PO 12/21/23 08:59 5 mg QAM EDWIGE Administration Aspirin 81 mg 12/20/22 09:00 12/22/22 09:27 Aspirin 81 Mg Tablet.Dr PO 12/20/23 08:59 81 mg DAILY EDWIGE Administration Atorvastatin Calcium 10 mg 12/19/22 22:00 12/21/22 21:03 Atorvastatin 10 Mg Tablet PO 12/19/23 21:59 10 mg HS EDWIGE Administration Carvedilol 3.125 mg 12/21/22 17:00 12/22/22 09:28 Carvedilol 3.125 Mg Tablet PO 12/21/23 16:59 3.125 mg BID.WITH.MEALS EDWIGE Administration Docusate Sodium 200 mg 12/19/22 21:40 Docusate 100 Mg Capsule PO 12/19/23 21:39 BID PRN Constipation Enoxaparin Sodium 40 mg 12/20/22 10:00 12/22/22 09:28 Enoxaparin 40 Mg/0.4 Ml Syringe SUBCUT 12/20/23 09:59 40 mg DAILY@1000 EDWIGE Administration Hydralazine HCl 10 mg 12/19/22 21:40 Hydralazine 20 Mg/Ml Vial IV-PUSH 12/19/23 21:39 Q4H PRN if SBP > 185 Mirtazapine 15 mg 12/19/22 22:00 12/21/22 21:03 Mirtazapine 15 Mg Tablet PO 12/19/23 21:59 15 mg HS EDWIGE Administration Pregabalin 100 mg 12/20/22 22:00 12/22/22 09:27 Pregabalin 100 Mg Capsule PO 06/18/23 21:59 100 mg TID EDWIGE Administration Prochlorperazine Edisylate 5 mg 12/19/22 21:40 Prochlorperazine Edisylate 10 Mg/2 Ml Vial IV-PUSH 12/19/23 21:39 Q4H PRN Nausea And Vomiting Sodium Chloride 0 ml 12/19/22 13:40 12/19/22 19:52 Sodium Chloride 0.9 % 10 Ml Syringe IV-PUSH 12/19/23 13:39 10 ml PRN PRN Administration Flush Tamsulosin HCl 0.4 mg 12/21/22 14:40 12/22/22 09:27 Tamsulosin 0.4 Mg Cap.Er.24h PO 12/21/23 14:39 0.4 mg DAILY EDWIGE Administration Vortioxetine 10 mg 12/21/22 09:00 12/22/22 09:27 Vortioxetine 10 Mg Tablet PO 12/21/23 08:59 10 mg DAILY EDWIGE Administration A&P - Hospitalist Assessment/Plan (1) Altered mental status: Plan 1. Transient episode of unresponsiveness, questionable syncopal episode EKG nonischemic, unchanged from the old 1, troponins elevated but flat, telemetry showed PVCs Replaced electrolytes, started beta-blockers, continue with aspirin therapy and statins, consulted cardiology, echocardiogram showed 45%, with LV hypokinesia -recommended stress test as outpatient 2. Right upper extremity weakness, unsure if it is old or new Continue with aspirin and statins, MRI of the head no acute stroke Duplex ultrasound showed chronic occlusion of left carotid artery with previously noted 50 to 70% stenosis of right carotid artery, official records pending, consulted vascular Continue with antiplatelet and statin therapy 3. Urinary retention, Mccall catheter inserted, Removed yesterday, bladder scan no residual 4. DVT prophylaxis Lovenox 5. 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 Documented By: Celeste Alfonso MD 12/22/22 1433 Signed By: <Electronically signed by Celeste Alfonso MD> 12/22/22 1447 [facility] Work Phone: 1(857) 918-117911-09-2023 Progress note Author Manjinder Galloway [facility] December 22, 2022 12:49pm Note Date/Time December 22, 2022 1 2:44pm [facility] [address] [place] [address] Cardiology Progress Note Signed with Stewart Patient: Hilary Maldonado MR#: [id number] : 1945 Acct:[id number] Age/Sex: 77 / M Adm Date: 3 Loc: Room: [address] [place] [address] Type: ADM IN Attending Dr: Celeste Alfonso MD Copies to: ~ ADDENDUM1 Sister reported to me that the patient had recent biopsy and apparently it turned out to be a malignancy of his parotid gland has been seen by ENT. I did discuss the plan with the patient's sister and the the hospitalist service in regard to his carotid and outpatient stress test Addendum Documented By: MD Manjinder Galloway 12/22/22 1249 Addendum Signed By: <Electronically signed by MD Manjinder Galloway> 12/22/22 1249 Date of Service: 12/22/2022 Subjective Interval history: Patient remained confused intermittently. Reviewing the record indicate the patient had bilateral carotid disease Exam Physical Exam Vital Signs: Temp Pulse Resp BP Pulse Ox O2 Del Method 98.0 F 52 L 20 131/82 98 Room Air 12/22/22 08:00 12/22/22 08:48 12/22/22 08:48 12/22/22 08:00 12/22/22 08:00 12/22/22 08:00 Eyes General: appearance normal, both eyes and all related structures Pupils: PERRL Neck Neck: normal visual inspection, supple and no lymphadenopathy noted Neck mass: No Thyroid: thyroid normal Carotids: normal carotid upstroke Chest Chest palpation & inspection: normal inspection of the chest Resp Effort & Inspection: normal respiratory effort Auscultation: clear to auscultation bilaterally Cardio Palpation: normal PMI Rate: regular rate Rhythm: regular rhythm Heart Sounds: S1 normal, S2 normal and murmur systolic I/ and at the right sternal border GI Palpation: soft and no hepatosplenomegaly Percussion: normal to percussion Auscultation: normal bowel sounds Skin General: no rashes or lesions noted and dry skin Objective Labs 12/21/22 14:59 12/21/22 14:59 Labs: Laboratory Results - last 24 hr 12/21/22 12/21/22 14:59 14:59 Corrected WBC 9.2 Uncorrected WBC Count 9.2 RBC 3.78 L Hgb 12.7 L Hct 38.4 L MCV 101.4 H MCH 33.6 MCHC 33.1 RDW 15.9 H Plt Count 126 L MPV 9.6 Neut % (Auto) 57.9 Lymph % (Auto) 28.2 [place] % (Auto) 8.9 Eos % (Auto) 4.6 Baso % (Auto) 0.4 Nucleat RBC Rel Count 0.1 Neut # (Auto) 5.3 Lymph # (Auto) 2.6 [place] # (Auto) 0.8 Eos # (Auto) 0.4 Baso # (Auto) 0.0 PHA Creatinine Clear 63.87 Sodium 139 Potassium 3.4 L Chloride 106 Carbon Dioxide 26.7 Anion Gap 9.7 BUN 16 Creatinine 1.08 Est GFR (CKD-EPI) > 60.0 Glucose 83 Calcium 8.1 L A&P - Cardiology (1) Altered mental status: Code(s): R41.82 - Altered mental status, unspecified Status: Acute Plan Assessment 1. An episode of loss of consciousness. Detail is lacking. Unclear etiology. Patient appears to have some persistent confusion unclear to me if he had some degree of dementia. He is higher risk for cerebrovascular disease. Reviewing the record indicate he had a previous bilateral carotid disease including occlusion of the left carotid and close to 60-70% right carotid last year 2. Coronary artery disease with known occlusion of his RCA and remote PCI to the left circumflex. No recent ischemic evaluation. 3. Mild troponin rise likely a type II event but cannot exclude the progressionof his known underlying ischemic heart disease 4. Mild LV systolic dysfunction 5. PVCs noted on telemetry 6. Probable dementia 7. Hyperlipidemia Plan 1. Continue treatment with aspirin, statin and will add low-dose beta-eric 2. We recommend this giving evaluation down the road. Would recommend Lexiscanmyocardial fusion study 3. Would recommend repeating carotid Doppler 4. Patient would likely need placement considering his mild dementia Documented By: Manjinder Galloway MD 12/22/22 1242 Signed By: <Electronically signed by MD Manjinder Galloway> 12/22/22 12[facility] Work Phone: 1(772) 694-679511-08-2023 Progress note Author Celeste Alfonso [facility] December 21, 2022 2:39pm Note Date/Time December 21, 2022 2 :35pm [facility] [address] [place] [address] Hospitalist Progress Note Signed Patient: Hilary Maldonado MR#: [id number] : 1945 Acct:[id number] Age/Sex: 77 / M Adm Date: 3 Loc: Room: [address] [place] [address] Type: ADM IN Attending Dr: Celeste Alfonso MD Copies to: ~ Date of Service: 12/21/2022 Subjective Subjective Narrative: Patient has been seen and examined today. She appears to be more awake, but still intermittently confused. Patient is agreeable to go to rehabilitation Complains of the right knee pain and left upper extremity pain, which is chronic. Per his sister who was at the bedside, patient has osteoarthritis Physical exam: General -awake, alert, oriented ?2, not in acute distress, appears to be more cooperative and more responsive today, more appropriate Cardiovascular -S1 with S2, no murmurs, no rubs, no gallops Pulmonary - clear to auscultation bilaterally Gastrointestinal - abdomen is soft, nondistended, nontender, bowel sounds positive, there is no rigidity, no rebound Extremities -no edema Neurological -right upper extremity weakness noteD, not sure if it is chronic oracute Laboratory work up and Imaging studies reviewed funeral pre arrangement specialist - reviewed EKG - personally reviewed by me. NSR with nonspecific changes, unchanged from the old 1 Exam Physical Exam Vital Signs: Temp Pulse Resp BP Pulse Ox O2 Del Method 36.8 C 72 18 144/67 H 99 Room Air 12/21/22 12:00 12/21/22 12:00 12/21/22 12:00 12/21/22 12:00 12/21/22 12:00 12/21/22 12:00 Objective Lab Results 12/20/22 06:17 12/20/22 06:17 Microbiology Results Microbiology 12/19/22 15:40 Blood - Right Hand Blood Culture - Preliminary No Growth 1 Day 12/19/22 14:55 Blood - Left Forearm Blood Culture - Preliminary No Growth 1 Day Meds Allergies and Active Meds Allergies No Known Allergies Allergy (Verified 12/19/22 13:41) Active Meds: Active Medications Generic Name Dose Route Start Last Admin Trade Name Stephanie PRN Reason Stop Dose Admin Acetaminophen 650 mg 12/19/22 21:40 12/21/22 01:31 Acetaminophen 325 Mg Tablet PO 12/19/23 21:39 650 mg Q4H PRN Administration Pain Scale 1 - 5 Albuterol 2.5 mg 12/20/22 21:00 12/21/22 09:02 Albuterol Neb 2.5 Mg/3 Ml Vial.Neb INHALATION 12/20/23 20:59 2.5 mg BID EDWIGE Administration Allopurinol 300 mg 12/20/22 09:00 12/21/22 09:04 Allopurinol 300 Mg Tablet PO 12/20/23 08:59 Not Given DAILY EDWIGE Aripiprazole 5 mg 12/21/22 09:00 12/21/22 09:04 Aripiprazole 5 Mg Tablet PO 12/21/23 08:59 Not Given QAM EDWIEG Aspirin 81 mg 12/20/22 09:00 12/21/22 09:04 Aspirin 81 Mg Tablet.Dr PO 12/20/23 08:59 Not Given DAILY EDWIGE Atorvastatin Calcium 10 mg 12/19/22 22:00 12/20/22 21:38 Atorvastatin 10 Mg Tablet PO 12/19/23 21:59 10 mg HS EDWIGE Administration Carvedilol 3.125 mg 12/21/22 17:00 Carvedilol 3.125 Mg Tablet PO 12/21/23 16:59 BID.WITH.MEALS EDWIGE Docusate Sodium 200 mg 12/19/22 21:40 Docusate 100 Mg Capsule PO 12/19/23 21:39 BID PRN Constipation Enoxaparin Sodium 40 mg 12/20/22 10:00 12/21/22 09:04 Enoxaparin 40 Mg/0.4 Ml Syringe SUBCUT 12/20/23 09:59 Not Given DAILY@1000 [facility] Hydralazine HCl 10 mg 12/19/22 21:40 Hydralazine 20 Mg/Ml Vial IV-PUSH 12/19/23 21:39 Q4H PRN if SBP > 185 Mirtazapine 15 mg 12/19/22 22:00 11/07/23 21:38 Mirtazapine 15 Mg Tablet PO 12/19/23 21:59 15 mg HS EDWIGE Administration Pregabalin 100 mg 12/20/22 22:00 12/21/22 14:00 Pregabalin 100 Mg Capsule PO 06/18/23 21:59 100 mg TID EDWIGE Administration Prochlorperazine Edisylate 5 mg 12/19/22 21:40 Prochlorperazine Edisylate 10 Mg/2 Ml Vial IV-PUSH 12/19/23 21:39 Q4H PRN Nausea And Vomiting Sodium Chloride 0 ml 12/19/22 13:40 12/19/22 19:52 Sodium Chloride 0.9 % 10 Ml Syringe IV-PUSH 12/19/23 13:39 10 ml PRN PRN Administration Flush Vortioxetine 10 mg 12/21/22 09:00 12/21/22 09:04 Vortioxetine 10 Mg Tablet PO 12/21/23 08:59 Not Given DAILY EDWIGE A&P - Hospitalist Assessment/Plan (1) Altered mental status: Plan 1. Transient episode of unresponsiveness, questionable syncopal episode EKG nonischemic, unchanged from the old 1, troponins elevated but flat, telemetry showed PVCs Replaced electrolytes, started beta-blockers, continue with aspirin therapy and statins, consulted cardiology, echocardiogram showed 45%, with LV hypokinesia 2. Right upper extremity weakness, unsure if it is old or new Continue with aspirin and statins, MRI of the head no acute stroke 3. Urinary retention, Mccall catheter inserted, we will remove Mccall catheter start Flomax, Bladder scan as needed 4. DVT prophylaxis Lovenox The patient care was discussed with the patient's sister who was at the bedside. Documented By: Celeste Alfonso MD 12/21/221432 Signed By: <Electronically signed by Celeste Alfonso MD> 12/21/22 1439 [facility] Work Phone: 1(641) 917-294611-08-2023 Consult note Author Manjinder Galloway [facility] December 21, 2022 11:25am Note Date/Time December 21, 2022 1 1:18am [facility] [address] [place] [address] Cardiology Consult Note Signed Patient: Hilary Maldonado MR#: [id number] : 1945 Acct:[id number] Age/Sex: 77 / M Adm Date: 3 Loc: 3T Room: [address] [place] [address] Type: ADM IN Attending Dr: Celeste Alfonso MD Copies to: Manjinder Galloway MD NO FAMILY PHYSICIAN Celeste Alfonso MD~ Cardiology HPI History of Present Illness Consult Date: 12/21/22 Reason for Consult: Cardiac consultation requested for evaluation for loss of consciousness questionable syncope HPI: Mr. Maldonado is a 77 year old male white male who we have seen in the past. He does not have history of coronary artery disease. Records suggest that he had occlusion of his RCA and underwent previously PCI to the left circumflex remotely at the [facility]. Patient apparently was found on the floor. Patient has no recollection. At the time my evaluation patient clearly confusedwith very poor long and short- term memory. Unclear to me if he had some dementia. Patient appears to be poorly kept. Patient was brought to the hospital because of loss of consciousness. Details lacking. It does not appearthat he has any physical injury. He underwent MRI of the brain that failed to demonstrate acute abnormality. The patient reports some left arm weakness. He denies chest pain or shortness of breath. The patient has not been seen or follow-up by any global creative chairman recently. Echocardiogram since admission showed mild LV systolic dysfunction with LVEF around 45% with inferobasilar wall hypokinesis. EKG showed old inferior NC. Rhythm strips demonstrate ventricularectopic beats. Troponin was mildly elevated. Review of Systems Review of Systems Review of systems: Patient appears very unreliable and unable to to give any detailed information and clearly confused [facility] Source: Unable to Obtain Medical History Chronic pain COPD (chronic obstructive pulmonary disease) Gout HTN (hypertension) Hyperlipemia Family History Family/Other Pancreatic cancer Father Myocardial infarction Social History Smoking Status: Current every day smoker Tobacco Type: cigarettes Substance Use Type: None Meds Medications and Allergies Allergies No Known Allergies Allergy (Verified 12/19/22 13:41) Home Medications atorvastatin 10 mg tablet 10 mg PO QAM 03/02/18 [History Confirmed 12/19/22] celecoxib 200 mg capsule 200 mg PO DAILY 03/02/18 [History Confirmed 12/19/22] vortioxetine 10 mg tablet 10 mg PO DAILY 03/02/18 [History Confirmed 12/19/22] morphine 15 mg tablet,extended release (MS Contin) 15 mg PO BID PRN Pain 08/08/19 [History Confirmed 12/19/22] pregabalin 100 mg capsule (Lyrica) 100 mg PO TID 08/08/19 [History Confirmed 12/19/22] docusate sodium 100 mg capsule (DOK) 100 mg PO BID PRN Constipation 30 days #60 caps 08/09/19 [Rx Confirmed 12/19/22] colchicine (gout) 0.6 mg tablet 0.6 mg PO BID 09/10/21 [History Confirmed 12/19/22] mirtazapine 15 mg tablet 15 mg PO QHS 10/27/22 [History Confirmed 12/19/22] verapamil 40 mg tablet 40 mg PO QAM 10/27/22 [History Confirmed 12/19/22] allopurinol 300 mg tablet 300 mg PO QAM 11/20/22 [History Confirmed 12/19/22] aspirin 81 mg tablet,delayed release 81 mg PO DAILY 11/20/22 [History Confirmed 12/19/22] famotidine 40 mg tablet 40 mg PO QHS 11/20/22 [History Confirmed 12/19/22] albuterol sulfate 2.5 mg/3 mL (0.083 %) solution for nebulization 2.5 mg inhalation BID 12/19/22 [History Confirmed 12/19/22] aripiprazole 5 mg tablet 5 mg PO QAM 12/19/22 [History Confirmed 12/19/22] diphenhydramine HCl 50 mg capsule (Banophen) 50 mg PO QHS PRN Insomnia 12/19/22 [History Confirmed 12/19/22] hydrochlorothiazide 12.5 mg capsule 12.5 mg PO QAM 12/19/22 [History Confirmed 12/19/22] Exam Physical Exam Vital Signs: Temp Pulse Resp BP Pulse Ox O2 Del Method 98.2 F 75 18 138/71 97 Room Air 12/21/22 08:00 12/21/22 08:00 12/21/22 08:00 12/21/22 08:00 12/21/22 08:00 12/21/22 08:00 Const General: cooperative, comfortable and no acute distress HEENT Head: atraumatic Mouth: oral mucosae normal Eyes General: appearance normal, both eyes and all related structures Pupils: PERRL Neck Neck: normal visual inspection, supple and no lymphadenopathy noted Neck mass: No Thyroid: thyroid normal Carotids: normal carotid upstroke Chest Chest palpation & inspection: normal inspection of the chest Resp Effort & Inspection: normal respiratory effort Auscultation: clear to auscultation bilaterally Cardio Palpation: normal PMI Rate: regular rate Rhythm: regular rhythm Heart Sounds: S1 normal, S2 normal and murmur systolic I/ and at the right sternal border GI Palpation: soft and no hepatosplenomegaly Percussion: normal to percussion Auscultation: normal bowel sounds Skin General: no rashes or lesions noted and dry skin Neuro General: patient alert, patient awake, tone normal, moves all extremities and other (Appears confused) Extrem General: capillary refill normal and no clubbing, cyanosis or edema Results Labs 12/20/22 06:17 12/20/22 06:17 Lab results: Intake and Output 12/20/22 12/21/22 12/21/22 23:59 07:59 15:59 Output Total 350 / 1150 150 / 150 Balance -350 / -450 -150 / -150 Output: Urine Amount (Catheter) 350 / 950 150 / 150 Coude 350 / 950 150 / 150 Other: Weight 87.4 kg Date of Last Bowel Movement 12/20/22 12/20/22 Patient Weight 12/21/22 23:59 Weight 87.4 kg Lab 12/19/22 14:55 PT 13.4 H INR 1.1 APTT 33.9 EKG Interpretations EKG Attestation EKG: I reviewed this ECG and interpreted as documented below: (Sinusrhythm with old inferior wall NC) A&P - Cardiology (1) Altered mental status: Code(s): R41.82 - Altered mental status, unspecified Plan Assessment 1. An episode of loss of consciousness. Detail is lacking. Unclear etiology. Patient appears to have some persistent confusion unclear to me if he had some degree of dementia. He is higher risk for cerebrovascular disease 2. Coronary artery disease with known occlusion of his RCA and remote PCI to the left circumflex. No recent ischemic evaluation. 3. Mild troponin rise likely a type II event but cannot exclude the progressionof his known underlying ischemic heart disease 4. Mild LV systolic dysfunction 5. PVCs noted on telemetry 6. Probable dementia 7. Hyperlipidemia Plan 1. Continue treatment with aspirin, statin and will add low-dose beta-eric 2. Would recommend noninvasive ischemic evaluation and outpatient event monitorwhen his mental status improved. We will try to reviewed with patient family when available. Patient does not appear to be a good candidate for invasive evaluation 3. Patient clearly high risk for fall. Documented By: Manjinder Galloway MD 12/21/221113 Signed By: <Electronically signed by MD Manjinder Galloway> 12/21/221124 [facility] Work Phone: 1(138) 981-846011-07-2023 Progress note Author Celeste Alfonso [facility] December 20, 2022 9:35pm Note Date/Time December 20, 2022 1 :26pm [facility] [address] [place] [address] Hospitalist Progress Note Signed with Addenda Patient: Hilary Maldonado MR#: [id number] : 1945 Acct:[id number] Age/Sex: 77 / M Adm Date: 3 Loc: Room: [address] [place] [address] Type: ADM IN Attending Dr: Celeste Alfonso MD Copies to: ~ ADDENDUM1 I did speak with the patient's sister. Currently we will leave the patient fullcode, she will come tomorrow and rediscuss that with the patient. Addendum Documented By: Celeste Alfonso MD 12/20/222134 Addendum Signed By: <Electronically signed by Celeste Alfonso MD> 12/20/222134 Date of Service: 12/20/2022 Subjective Subjective Narrative: Patient has been seen and examined today. She still remains confused, oriented x1. But he denies any pain. Unable to tolerate MRI due to agitation Telemetry reviewed, normal sinus, with PVCs Physical exam: General -awake, alert, oriented ?1, not in acute distress Cardiovascular -S1 with S2, no murmurs, no rubs, no gallops Pulmonary - clear to auscultation bilaterally Gastrointestinal - abdomen is soft, nondistended, nontender, bowel sounds positive, there is no rigidity, no rebound Extremities -no edema Neurological -right upper extremity weakness noteD, not sure if it is chronic oracute Laboratory work up and Imaging studies reviewed funeral pre arrangement specialist - reviewed EKG - personally reviewed by me. NSR with nonspecific changes, unchanged from the old 1 Exam Physical Exam Vital Signs: Temp Pulse Resp BP Pulse Ox O2 Del Method 36.3 C L 73 18 148/63 H 99 Room Air 12/20/22 11:32 12/20/22 11:32 12/20/22 11:32 12/20/22 11:32 12/20/22 11:32 12/20/22 11:32 Objective Lab Results 12/20/22 06:17 12/20/22 06:17 Meds Allergies and Active Meds Allergies No Known Allergies Allergy (Verified 12/19/22 13:41) Active Meds: Active Medications Generic Name Dose Route Start Last Admin Trade Name Stephanie PRN Reason Stop Dose Admin Acetaminophen 650 mg 12/19/22 21:40 12/20/22 05:44 Acetaminophen 325 Mg Tablet PO 12/19/23 21:39 650 mg Q4H PRN Administration Pain Scale 1 - 5 Albuterol 2.5 mg 12/20/22 21:00 Albuterol Neb 2.5 Mg/3 Ml Vial.Neb INHALATION 12/20/23 20:59 BID EDWIGE Allopurinol 300 mg 12/20/22 09:00 12/20/22 12:00 Allopurinol 300 Mg Tablet PO 12/20/23 08:59 Not Given DAILY EDWIGE Aripiprazole 5 mg 12/21/22 09:00 Aripiprazole 5 Mg Tablet PO 12/21/23 08:59 QAM EDWIGE Aspirin 81 mg 12/20/22 09:00 12/20/22 11:59 Aspirin 81 Mg Tablet. PO 12/20/23 08:59 Not Given DAILY EDWIGE Atorvastatin Calcium 10 mg 12/19/22 22:00 12/19/22 22:16 Atorvastatin 10 Mg Tablet PO 12/19/23 21:59 10 mg HS EDWIGE Administration Docusate Sodium 200 mg 12/19/22 21:40 Docusate 100 Mg Capsule PO 11/05/24 21:39 BID PRN Constipation Enoxaparin Sodium 40 mg 12/20/22 10:00 12/20/22 11:43 Enoxaparin 40 Mg/0.4 Ml Syringe SUBCUT 12/20/23 09:59 Not Given DAILY@1000 [facility] Hydralazine HCl 10 mg 12/19/22 21:40 Hydralazine 20 Mg/Ml Vial IV-PUSH 12/19/23 21:39 Q4H PRN if SBP > 185 Magnesium Sulfate 4 gm in 100 mls @ 12.5 mls/hr 12/20/22 13:16 Magnesium Sulf 4 Gm-*Swfi* IV 12/20/22 21:15 ONCE ONE Sodium Chloride 1,000 mls @ 100 mls/hr 12/20/22 13:30 0.9% Sodium Chloride 1,000 Ml IV 12/20/22 23:29 .Q10H EDWIGE Mirtazapine 15 mg 12/19/22 22:00 12/19/22 22:16 Mirtazapine 15 Mg Tablet PO 12/19/23 21:59 15 mg HS EDWIGE Administration Pregabalin 100 mg 12/20/22 14:00 Pregabalin 100 Mg Capsule PO 06/18/23 13:59 TID EDWIGE Prochlorperazine Edisylate 5 mg 12/19/22 21:40 Prochlorperazine Edisylate 10 Mg/2 Ml Vial IV-PUSH 12/19/23 21:39 Q4H PRN Nausea And Vomiting Sodium Chloride 0 ml 12/19/22 13:40 12/19/22 19:52 Sodium Chloride 0.9 % 10 Ml Syringe IV-PUSH 12/19/23 13:39 10 ml PRN PRN Administration Flush Vortioxetine 10 mg 12/21/22 09:00 Vortioxetine 10 Mg Tablet PO 12/21/23 08:59 DAILY [facility] A&P - Hospitalist Assessment/Plan (1) Altered mental status: Plan 1. Transient episode of unresponsiveness, questionable syncopal episode EKG nonischemic, unchanged from the old 1, troponins elevated but flat, telemetry showed PVCs Replace electrolytes, start beta-blockers, continue with aspirin therapy and statins, I will consult cardiology, check echocardiogram 2. Right upper extremity weakness, unsure if it is old or new Continue with aspirin and statins, MRI of the head is pending 3. Urinary retention, Mccall catheter inserted, continue with strict input and output, started IV fluids, kidney function stable 4. DVT prophylaxis Lovenox I called patient's sister, she will be available around 3 PM. We will try to call again. To clarify CODE STATUS Documented By: Celeste Alfonso MD 12/20/221322 Signed By: <Electronically signed by Celeste Alfonso MD> 12/20/22 2603 [facility] Work Phone: [phone]) [phone] History and physical note Author Celeste Alfonso [facility] December 20, 2022 1:20pm Note Date/Time December 19, 2022 8 :29pm [facility] [address] [place] [address] Hospitalist H&P Signed Patient: Hilary Maldonado MR#: [id number] : 1945 Acct:[id number] Age/Sex: 77 / M Adm Date: 3 Loc: Room: [address] [place] [address] Type: ADM IN Attending Dr: Celeste Alfonso MD Copies to: NO FAMILY PHYSICIAN Celeste Alfonso MD~ HPI DATE OF EXAMINATION: 12/19/22 CHIEF COMPLAINT: Change in mental status HISTORY OF PRESENT ILLNESS: 77 years old male who lives at home alone, usually is awake and oriented x3 per his friend who came to emergency room, was found by home health care nurses laying next to the couch covered in stool. Unknown downtime. Patient is not able to give any history at this point When I went to his room, he appeared to be comfortable but he was very confused,he was oriented x1, and told me to get out of the room. He did not allow me to finish exam. He denied any pain, he denied any abdominal pain any chest pain. He denied any dizziness any lightheadedness. He denied any joint pains. Per nurse he was asking to eat something as well as he complained of joint pain in the right knee 10 systems are limited due to mental status General -patient is awake does not appear to be in respiratory distress, does not appear to be painful, oriented x1 HEENT -dry oropharyngeal mucosa without any ulcers or exudates Cardiovascular -S1 plus S2, with regular rate, without any murmurs, gallops, rubs Pulmonary -clear to auscultation bilaterally Gastrointestinal -abdomen is soft, nondistended, nontender, bowel sounds positive, no rigidity, no rebound Genitourinary -deferred Musculoskeletal -no back tenderness, no significant joint swelling, full range of motion Neurological -no significant focal neurological dysfunction noted but he did have some weakness of his right upper extremity Skin -no significant ulcers, no rash noted Extremities - no edema in bilateral lower extremities noted Psychiatry - appropriate affect Laboratory work up, imaging studies reviewed EKG personally reviewed by me normal sinus rhythm with T wave inversions in 3 and aVF with prolonged QT, 497 Previous records in the computer system reviewed CT scan of the abdomen and pelvis with IV contrast showed trace left pleural effusions with minor basilar parenchymal changes, without acute findings [facility] Medical History Chronic pain COPD (chronic obstructive pulmonary disease) Gout HTN (hypertension) Hyperlipemia Family History Family/Other Pancreatic cancer Father Myocardial infarction Social History Smoking Status: Current every day smoker Tobacco Type: cigarettes Substance Use Type: None Meds Medications and Allergies Allergies No Known Allergies Allergy (Verified 12/19/22 13:41) Home Medications atorvastatin 10 mg tablet 10 mg PO QAM 03/02/18 [History Confirmed 12/19/22] celecoxib 200 mg capsule 200 mg PO DAILY 03/02/18 [History Confirmed 12/19/22] vortioxetine 10 mg tablet 10 mg PO DAILY 03/02/18 [History Confirmed 12/19/22] morphine 15 mg tablet,extended release (MS Contin) 15 mg PO BID PRN Pain 08/08/19 [History Confirmed 12/19/22] pregabalin 100 mg capsule (Lyrica) 100 mg PO TID 08/08/19 [History Confirmed 12/19/22] docusate sodium 100 mg capsule (DOK) 100 mg PO BID PRN Constipation 30 days #60 caps 08/09/19 [Rx Confirmed 12/19/22] colchicine (gout) 0.6 mg tablet 0.6 mg PO BID 09/10/21 [History Confirmed 12/19/22] mirtazapine 15 mg tablet 15 mg PO QHS 10/27/22 [History Confirmed 12/19/22] verapamil 40 mg tablet 40 mg PO QAM 10/27/22 [History Confirmed 12/19/22] allopurinol 300 mg tablet 300 mg PO QAM 11/20/22 [History Confirmed 12/19/22] aspirin 81 mg tablet,delayed release 81 mg PO DAILY 11/20/22 [History Confirmed 12/19/22] famotidine 40 mg tablet 40 mg PO QHS 11/20/22 [History Confirmed 12/19/22] albuterol sulfate 2.5 mg/3 mL (0.083 %) solution for nebulization 2.5 mg inhalation BID 12/19/22 [History Confirmed 12/19/22] aripiprazole 5 mg tablet 5 mg PO QAM 12/19/22 [History Confirmed 12/19/22] diphenhydramine HCl 50 mg capsule (Banophen) 50 mg PO QHS PRN Insomnia 12/19/22 [History Confirmed 12/19/22] hydrochlorothiazide 12.5 mg capsule 12.5 mg PO QAM 12/19/22 [History Confirmed 12/19/22] Exam Physical Exam Vital Signs: Temp Pulse Resp BP Pulse Ox O2 Del Method 36.9 C 80 16 160/80 H 97 Room Air 12/19/22 14:11 12/19/22 18:19 12/19/22 18:19 12/19/22 18:19 12/19/22 18:19 12/19/22 18:19 Results Lab Results Labs: Laboratory Last Values Corrected WBC 10.6 X10E3/uL (4.1-10.5) H 12/19/22 14:55 Uncorrected WBC Count 10.6 x10E3/uL (4.1-10.5) H 12/19/22 14:55 RBC 4.72 X10E6/uL (3.90-5.60) 12/19/22 14:55 Hgb 15.9 g/dL (13.0-17.0) 12/19/22 14:55 Hct 47.8 % (38.8-50.0) 12/19/22 14:55 MCV 101.2 fl (83.5-101) H 12/19/22 14:55 MCH 33.8 pg (27.5-35.2) 12/19/22 14:55 MCHC 33.4 g/dL (32.5-35.6) 12/19/22 14:55 RDW 15.9 % (12.0-14.8) H 12/19/22 14:55 Plt Count 200 x10E3/uL (150-450) 12/19/22 14:55 MPV 10.0 fl (6.6-10.1) 12/19/22 14:55 Neut % (Auto) 66.1 % (.) 12/19/22 14:55 Lymph % (Auto) 22.0 % (.) 12/19/22 14:55 [place] % (Auto) 8.6 % (.) 12/19/22 14:55 Eos % (Auto) 2.5 % (.) 12/19/22 14:55 Baso % (Auto) 0.8 % (.) 12/19/22 14:55 Nucleat RBC Rel Count 0.5 /100 WBC (0-0.5) 12/19/22 14:55 Neut # (Auto) 7.0 x10E3/uL (1.8-7.7) 12/19/22 14:55 Lymph # (Auto) 2.3 x10E3/uL (1.00-4.8) 12/19/22 14:55 [place] # (Auto) 0.9 x10E3/uL (0.0-0.8) H 12/19/22 14:55 Eos # (Auto) 0.3 x10E3/uL (0.0-0.45) 12/19/22 14:55 Baso # (Auto) 0.1 x10E3/uL (0.0-0.2) 12/19/22 14:55 Monocyte Dist Width 20.93 % (0.00-20.00) H 12/19/22 14:55 PT 13.4 Seconds (9.0-12.9) H 12/19/22 14:55 INR 1.1 12/19/22 14:55 APTT 33.9 Seconds (25.1-36.5) 12/19/22 14:55 Sample Site Venous 12/19/22 15:06 VBG pH 7.37 (7.32-7.43) 12/19/22 15:06 VBG pCO2 44.9 mmHg (38.0-50.0) 12/19/22 15:06 VBG pO2 24.3 mmHg (35.0-45.0) L 12/19/22 15:06 VBG HCO3 25.1 mmol/L (23.0-29.0) 12/19/22 15:06 VBG Total CO2 26.5 mmol/L (24.0-29.0) 12/19/22 15:06 VBG O2 Saturation 41.2 % (73.0-76.0) L* 12/19/22 15:06 VBG O2 Content 4.4 mmol/L (6.6-9.7) L 12/19/22 15:06 VBG Base Excess -0.7 mmol/L (-3.0-3.0) 12/19/22 15:06 FiO2 21 % 12/19/22 15:06 Critical Value 12/19/22 15:06 PHA Creatinine Clear 71.11 12/19/22 14:55 Sodium 142 mmol/L (136-145) 12/19/22 14:55 Potassium 3.6 mmol/L (3.5-5.1) 12/19/22 14:55 Chloride 105 mmol/L (98-107) 12/19/22 14:55 Carbon Dioxide 26.0 mmol/L (21.0-31.0) 12/19/22 14:55 Anion Gap 14.6 mEq/L (6.0-15.0) 12/19/22 14:55 BUN 14 mg/dL (7-25) 12/19/22 14:55 Creatinine 0.97 mg/dL (0.70-1.30) 12/19/22 14:55 Est GFR (CKD-EPI) > 60.0 mL/Min 12/19/22 14:55 Glucose 89 mg/dL (70-100) 12/19/22 14:55 POC Glucose 92 mg/dl 12/19/22 13:57 POC Glucose Comment 12/19/22 13:57 Lactic Acid 1.7 mmol/L (0.5-2.2) 12/19/22 14:55 Calcium 9.3 mg/dL (8.6-10.3) 12/19/22 14:55 Total Bilirubin 1.2 mg/dl (0.3-1.0) H 12/19/22 14:55 AST 37 U/L (13-39) 12/19/22 14:55 ALT 20 U/L (7-52) 12/19/22 14:55 Alkaline Phosphatase 121 U/L (34-104) H 12/19/22 14:55 Ammonia 22 umol/L (11-35) 12/19/22 14:55 Total Creatine Kinase 77 U/L (30-223) 12/19/22 14:55 Troponin I High Sens 135.8 pg/mL (0.0-20.0) H* 12/19/22 14:55 Total Protein 7.8 gm/dL (6.4-8.9) 12/19/22 14:55 Albumin 4.0 gm/dL (3.5-5.7) 12/19/22 14:55 Globulin 3.8 gm/dL 12/19/22 14:55 Albumin/Globulin Ratio 1.1 12/19/22 14:55 TSH 3rd Generation 2.21 uIU/mL (0.45-5.33) 12/19/22 14:55 ABG Interpretation ABG results: 12/19/22 15:06 VBG pH 7.37 VBG pCO2 44.9 VBG pO2 24.3 L VBG HCO3 25.1 VBG Total CO2 26.5 VBG O2 Saturation 41.2 L* VBG Base Excess -0.7 Assessment & Plan Assessment/Plan (1) Altered mental status: Plan 1. Transient episode of unresponsiveness associated with confusion No obvious signs of infection, however urinalysis still pending Blood cultures obtained, awaiting urinalysis Abnormal troponins was noted with T wave inversions in 3 and aVF which is the same compared to old EKG, will admit to telemetry, continue with serial cardiac enzymes, check echocardiogram, continue with aspirin and statins Due to confusion we will get MRI of the brain, he does have right upper extremity weakness, of unclear etiology, it is not clear if it is old or acute, no other obvious focal neurological dysfunction, but exam is limited due to uncooperation IP vs OBS Justification Based on differential dx, clinical care plan, and risk of adverse events, if untreated, in my clinical judgement this patient requires an acute care setting as: INPATIENT because of an expectation of an over 2 midnight stay. Estimated length of stay (# of days): 3 Documented By: Celeste Alfonso MD 12/19/222023 Signed By: <Electronically signed by Celeste Alfonso MD> 12/20/22 [facility] Work Phone: 1(330) 690-558210-10-2023 Hospital Discharge instructionsAmbulatory Orders* Initiate Home Health Time Frame: 11/22/22, Location: Determined By Patient Additional Instructions I may not have addressed or treated all of your medical illnesses or the abnormal blood work or imaging studies during this hospitalization. Please ask your primary care provider to obtain [facility] records entirely to follow up on all of the abnormal physical, laboratory, and imaging findings that I have not addressed. Please return back to the emergency room or seek medical attention if your symptoms worsen or return. Discharging you from [facility] does not mean that your medical care ends here and now. You may still need additional monitoring, work up, investigation, and treatment plan to be handled from this point on by out patient providers including your primary care provider and specialists. For any medication question, please contact your retail pharmacist or your primary care provider. Thank you. HOME HEALTH TO MANAGE: Nursing/PT/OT/Aide/Faith Healer to eval and treat Monitor VS per protocol Monitor Urinary assessment and for signs of increased infection--UTI Monitor Neuro. assessment--Encephalopathy Monitor right knee pain--Arthritis, Gout Maintain dressing change every 3 days: Mepilex border foam to Coccyx for protection Assist with medication management and provide medication education Provide education on high risk fall precautions [facility] Work Phone: [phone] 832-167810-10-2023 Discharge summary Author Adin Boyce [facility] November 22, 2022 12:25pm Note Date/Time November 22, 2022 9 :20am [facility] [address] [place] [address] Discharge Summary Signed Patient: Hilary Maldonado MR#: [id number] : 1945 Acct:[id number] Age/Sex: 77 / M Adm Date: 3 Loc: Room: [address] [place] [address]: Adin Boyce MD Copies to: Ra Padilla MD, RES G Hermilo Ambrosio Jr, DO Adin Boyce MD~ Providers Date of Admission: 11/20/22 Date of Discharge: 11/22/22 Discharging Provider: Adin Boyce Additional Discharging Provider: Adin Boyce Primary Care Provider: Damian Ambrosio Consults: 11/20/22 11:45 Consult to Orthopedic Surgery Routine 11/20/22 11:57 Consult to Physical Therapy Routine 11/20/22 11:58 Consult to Occupational Therapy Routine Discharge Diagnosis (1) Acute encephalopathy: (2) Acute UTI: (3) Acute knee pain: (4) Fall: (5) Volume depletion: Final Diagnosis Final Discharge Diagnosis: As noted above and others that are not listed Summary Hospital Course Hospital course: Hilary Maldonado is a 77 y.o. male with a PMH of gout, arthritis, tobacco dependence, HTN, depression, and headaches who presented to the [facility] emergency department on 11/20/22. He was seen by the police before EMS was called to the scene where patient was noted to be outside, appeared confused, and was unable to operate his car. He fell on to his right knee. Patient stated that he was trying to get food from outside. History was limited in the ED due to altered mental status and disorientation to the event, time, or place. He was only able to state his full name and follow simple commands. Patient has a history of gout, mostly in his right knee with previous evaluations for that. He has been adamant to go home on each previous hospitalization here. He had a recent previous admission where he was found to have COVID, received treatment with plans to go to rehab, however he refused to cooperate to go to the facility and went home and now has returned. Chest and right knee X ray were completed in theED and showed no acute bony abnormality other than degenerative changes in the right knee. No sign of fracture. CT of the head and cervical spine were completed and revealed no acute intracranial or bony pathology. He has questionable compliance with medications outpatient and has not been on Allopurinol. He had a psych evaluation for capacity previously and was deemed tohave capacity to make decisions. He demonstrated afebrile, mild leukocytosis, UAmildly positive, some signs of dehydration, and was treated with IV antibiotics. Urine culture came back negative. Antibiotic will be discontinued. Patient was followed on the hospital floor for concerns regarding acute metabolic encephalopathy. His labs were reviewed daily with electrolytes and fluids repleted as necessary. Patient's mental status improved with addition of electrolytes, fluids, and nutrition. He was placed on colchicine, celebrex, and IV steroids for a gout flare of his knee. There were concerns about requiring anaspiration of the right knee, but he was seen by ortho and it was determined this was not necessary as the redness and swelling had calmed down. Ortho recommended outpatient follow up for severe degenerative arthritis of the right knee with gouty symptoms. Patient is doing well as of 11/22/22. Discussed the plan for discharge to a skilled care facility with the patient. Patient was agitated regarding this plan and states that he has too much to do around his house. We explained that due to his medical situation we strongly encouraged him to attended a detention facility for strengthening and support for his daily activities. Patient stated he did not want this and wantedto go home. We reviewed the risks about body injury and discussed how he could have a fall, bleeding, or trauma related event at home that could lead to him coming back to the hospital or have a worsening in his medical condition up to . Patient states that he is aware of the risks and understands that we toldhim. He understands that he will be going back to his home instead of a skilled care facility against medical advice. Patient has a preserved medical decision making capacity. He understood the risk of going home very well. He was able to recite the risk. He was able to challenge my position and my recommendation to discharge him to nursing facility. He was able to understand options, alternatives and others. He is adamant about going home despite potential risk. Time Spent with Patient Time spent providing/coordinating discharge services (# min): 40 Diagnostic Studies Completed and Pending Studies Pending studies at discharge: 11/20/22 08:22 Urine Culture Stat 11/22/22 08:24 Basic Metabolic Panel [CHEM] IN AM Preliminary micro results at discharge 11/20/22 08:22 Urine Culture - Preliminary Urine - Voided No Growth 1 Day Exam Physical Exam Vital Signs: Temp Pulse Resp BP Pulse Ox O2 Del Method 98 F 63 18 159/76 H 99 Room Air 11/22/22 07:22 11/22/22 07:22 11/22/22 07:22 11/22/22 07:22 11/22/22 07:22 11/22/22 07:22 Narrative: Const General: alert and oriented x 3, no acute distress HEENT dry oropharyngeal mucosa without any ulcers or exudates Eyes: Conjunctiva normal Pulmonary Auscultation: clear to auscultation, no crackles, no wheezes Cardiovascular Rate: normal rate Rhythm: regular rhythm Heart Sounds: S1 normal, S2 normal and no murmurs GI Inspection: non-distended Palpation: soft, not firm and nontender. No rigidity or rebound. Deferred Neuro General: alert, awake and oriented x 3. Strength intact in all extremities aside from RLE due to pain. No facial asymmetry, tongue is midline Musculoskeletal: Limited range of motion at R knee- very painful to touch, warm, swollen. Left knee ROM is intact and nontender. Extrem General: no cyanosis, no pedal edema Psych Appearance: grossly normal Discharge Plan Discharge Plan Patient Disposition: Home Health [facility] Activity: No Activity Restriction Diet: Regular Additional Instructions: HOME HEALTH TO MANAGE: Nursing/PT/OT/Aide/Faith Healer to eval and treat Monitor VS per protocol Monitor Urinary assessment and for signs of increased infection--UTI Monitor Neuro. assessment--Encephalopathy Monitor right knee pain--Arthritis, Gout Maintain dressing change every 3 days: Mepilex border foam to Coccyx for protection Assist with medication management and provide medication education Provide education on high risk fall precautions I may not have addressed or treated all of your medical illnesses or the abnormal blood work or imaging studies during this hospitalization. Please ask your primary care provider to obtain [facility] records entirely to follow up on all of the abnormal physical, laboratory, and imaging findings that I have not addressed. Please return back to the emergency room or seek medical attention if your symptoms worsen or return. Discharging you from [facility] does not mean that your medical care ends here and now. You may still need additional monitoring, work up, investigation, and treatment plan to be handled from this point on by out patient providers including your primary care provider and specialists. For any medication question, please contact your retail pharmacist or your primary care provider. Thank you. Prescriptions: Continued colchicine (gout) 0.6 mg tablet 1.2 mg PO DAILY verapamil 40 mg tablet 40 mg PO DAILY Patient Comments: TAKE 1 TABLET BY MOUTH EVERY DAY IN THE MORNING mirtazapine 15 mg tablet 15 mg PO HS famotidine 40 mg Tablet 40 mg PO DAILY aspirin 81 mg Tablet,Delayed Release (Dr/Ec) 81 mg PO DAILY allopurinol 300 mg Tablet 300 mg PO DAILY celecoxib 200 mg capsule 200 mg PO DAILY Patient Comments: atorvastatin 10 mg tablet 10 mg PO HS Patient Comments: vortioxetine 10 mg tablet 10 mg PO DAILY Patient Comments: pregabalin [Lyrica] 100 mg Capsule 100 mg PO TID morphine [MS Contin] 15 mg tablet extended release 15 mg PO BID PRN (Reason: Pain) Patient Comments: TAKE 1 TABLET BY MOUTH TWICE A DAY DIRECTED docusate sodium [DOK] 100 mg Capsule 100 mg PO BID PRN (Reason: Constipation) 30 Days Qty: 60 0RF Other Ambulatory Orders: Initiate Home Health (Routine) Timeframe: 20221122 Location: Determined by Patient Ordered By: Adin Boyce Follow Up: Hilray Rice MD [Active Staff] - (Please call to schedule an appointment for further treatment and evaluation of right knee pain.) Damian Ambrosio DO [Primary Care Provider] - 11/29/22 10:40 am (Post hospital appointment. Please call to reschedule if needed.) Documented By: Ra Padilla MD, RES 11/22/22 09 06 Signed By: <Electronically signed by MD HOA Padilla> 11/22/22 1156 <Electronically signed by Adin Boyce MD> 11/22/22 [facility] Work Phone: 1(637) 534-610710-09-2023 Progress note Author Adin Boyce [facility] November 21, 2022 11:51am Note Date/Time November 21, 2022 9: 30am [facility] [address] [place] [address] Hospitalist Progress Note Signed Patient: Hilary Maldonado MR#: [id number] : 1945 Acct:[id number] Age/Sex: 77 / M Adm Date: 3 Loc: Room: [address] [place] [address] Type: ADM IN Attending Dr: Adin Boyce MD Copies to: ~ Date of Service: 11/21/2022 Subjective Subjective Narrative: Mr. Maldonado is a 77-year-old male with a PMH of gout, arthritis, tobacco dependence,HTN, depression, and headaches who was seen and evaluated at bedside today. During his initial presentation to the ED, he appeared confused and disoriented.Patient states that he is feeling much better today. He is alert and oriented to our conversation. He complains of pain and stiffness in his right knee but states that he has a significant history for gout. He has been evaluated by the orthopedics team in the past. He denies any confusion, dizziness, chest pain, shortness of breath, nausea, vomiting, diarrhea, constipation, numbness, or tingling today. He denies any pain with urination or blood in the urine. He states that he is hungry even after eating breakfast. Exam Physical Exam Vital Signs: Temp Pulse Resp BP Pulse Ox O2 Del Method 97.9 F 56 L 16 138/72 95 Room Air 11/21/22 07:25 11/21/22 07:25 11/21/22 07:25 11/21/22 07:25 11/21/22 07:25 11/21/22 08:23 Narrative: Const General: alert and oriented x 3, no acute distress HEENT dry oropharyngeal mucosa without any ulcers or exudates Eyes: Conjunctiva normal Pulmonary Auscultation: clear to auscultation, no crackles, no wheezes Cardiovascular Rate: normal rate Rhythm: regular rhythm Heart Sounds: S1 normal, S2 normal and no murmurs GI Inspection: non-distended Palpation: soft, not firm and nontender. No rigidity or rebound. Deferred Neuro General: alert, awake and oriented x 3. Strength intact in all extremities asidefrom RLE due to pain. No facial asymmetry, tongue is midline Musculoskeletal: Limited range of motion at R knee- Not painful to touch, Not warm, mildly swollen. Left knee ROM is intact and nontender. Extrem General: no cyanosis, no pedal edema Psych Appearance: grossly normal Objective Lab Results 11/21/22 05:45 11/21/22 05:45 Meds Allergies and Active Meds Allergies No Known Allergies Allergy (Verified 11/20/22 05:17) Active Meds: Active Medications Generic Name Dose Route Start Last Admin Trade Name Freq PRN Reason Stop Dose Admin Acetaminophen 650 mg 11/20/22 09:00 Acetaminophen 325 Mg Tablet PO 11/20/23 08:59 Q6HR PRN Pain Scale 1 - 3 or fever Atorvastatin Calcium 10 mg 11/20/22 22:00 11/20/22 23:03 Atorvastatin 10 Mg Tablet PO 11/20/23 21:59 Not Given HS EDWIGE Celecoxib 200 mg 11/20/22 11:55 11/20/22 12:56 Celecoxib 200 Mg Capsule PO 11/20/23 11:54 200 mg DAILY EDWIGE Administration Colchicine 0.6 mg 11/20/22 21:00 11/20/22 20:40 Colchicine 0.6 Mg Tablet PO 11/20/23 20:59 0.6 mg BID EDWIGE Administration Docusate Sodium 100 mg 11/20/22 11:55 Docusate 100 Mg Capsule PO 11/20/23 11:54 BID PRN Constipation Heparin Sodium (Porcine) 5,000 unit 11/20/22 21:00 11/20/22 20:41 Heparin 5,000 Unit/Ml Vial SUBCUT 11/20/23 20:59 5,000 unit Q12HR EDWIGE Administration Hydralazine HCl 10 mg 11/20/22 09:00 Hydralazine 20 Mg/Ml Vial IV-PUSH 11/20/23 08:59 Q4H PRN Hypertension Ceftriaxone Sodium 1 gm in 50 mls @ 100 mls/hr 11/21/22 10:00 Rocephin IV Q24H EDWIGE Lactated Ringer's 1,000 mls @ 75 mls/hr 11/20/22 12:15 11/21/22 02:47 Lactated Ringers IV 11/20/23 12:14 75 mls/hr .[id number] EDWIGE Administration Lorazepam 0.5 mg 11/20/22 13:37 Lorazepam 2 Mg/Ml Vial IV-PUSH 05/19/23 13:36 Q4H PRN Agitation Methylprednisolone Sodium Succinate 40 mg 11/20/22 14:30 11/20/22 20:42 Methylprednisolone Sod Succ 40 Mg/Ml Vial IV-PUSH 11/20/23 14:29 40 mg Q12HR EDWIGE Administration Mirtazapine 15 mg 11/20/22 22:00 11/20/22 23:03 Mirtazapine 15 Mg Tablet PO 11/20/23 21:59 Not Given HS EDWIGE Morphine Sulfate 15 mg 11/20/22 11:55 11/20/22 13:45 Morphine Sulfate 12hr Er 15 Mg Tablet.Er PO 15 mg BID PRN Administration Pain Pregabalin 100 mg 11/20/22 14:00 11/20/22 23:03 Pregabalin 100 Mg Capsule PO 05/19/23 13:59 Not Given TID EDWIGE Prochlorperazine Edisylate 5 mg 11/20/22 09:00 Prochlorperazine Edisylate 10 Mg/2 Ml Vial IV-PUSH 11/20/23 08:59 Q4H PRN Nausea And Vomiting Sodium Chloride 0 ml 11/20/22 05:17 11/20/22 06:55 Sodium Chloride 0.9 % 10 Ml Syringe IV-PUSH 11/20/23 05:16 10 ml PRN PRN Administration Flush Sodium Chloride 10 ml 11/20/22 13:37 Sodium Chloride 0.9 % 10 Ml Vial.Pf INJECTION 11/20/23 13:36 Q4H PRN Ativan dilution Sterile Water 1 ml 11/20/22 11:47 11/20/22 20:42 Water For Injection,Sterile 10 Ml Vial INJECTION 11/20/23 11:46 1 ml PRN PRN Administration Reconstitute methylPREDNISolone sod succ Verapamil HCl 40 mg 11/21/22 09:00 Verapamil 80 Mg Tablet PO 11/21/23 08:59 DAILY EDWIGE Vortioxetine 10 mg 11/21/22 09:00 Vortioxetine 10 Mg Tablet PO 11/21/23 08:59 DAILY EDWIGE A&P - Hospitalist Assessment/Plan (1) Acute encephalopathy: (2) Acute UTI: (3) Acute knee pain: (4) Fall: (5) Volume depletion: Plan Acute encephalopathy-possibly metabolic Acute nonhemorrhagic cystitis Volume depletion - Afebrile here, has mild leukocytosis, UA mildly positive. - Follow urine culture -Discontinue IV fluid - Will maintain IV antibiotics for now - Monitor mental status/Fever/WBC trend - CT head and cervical spine 11/20/22 - no acute intracranial or bony abnormality - Chest X ray 11/20/22 - no acute bony abnormality Acute on chronic R knee pain Suspected acute gout flare up Medication noncompliance Known hx of gout - Afebrile, mild leukocytosis - Will check ESR, CRP, uric acid - Continue Colchicine and Celebrex - Start IV steroids -Patient was seen by orthopedic team who did not recommend any aspiration. No clinical evidence of a septic knee such as increased warmth, significant swelling or significant diminishment in range of motion. 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 Plan is on discharging him to a skilled care. Patient may need long-term detention living.. Discussed with nursing management - Maintain fall precaution Home medications reviewed and restarted as appropriate Diet: Regular DVT ppx:heparin Code status: DNR CCA without intubation Disposition: inpatient status Documented By: Ra Padilla MD, RES 11/21/22 09 21 Signed By: <Electronically signed by MD HOA Padilla> 11/21/2258 <Electronically signed by Adin Boyce MD> 11/21/22 [facility] Work Phone: 1(260) 892-923010-09-2023 Consult note Author Hilary Rice [facility] November 21, 2022 11:20am Note Date/Time November 21, 2022 10 :36am [facility] [address] [place] [address] Orthopedic Consult Note Signed Patient: Hilary Maldonado MR#: [id number] : 1945 Acct:[id number] Age/Sex: 77 / M Adm Date: 3 Loc: Room: [address] [place] [address] Type: ADM IN Attending Dr: Adin Boyce MD Copies to: Tyree Ambrosoi Jr, DO MD Hilary Suarez MD~ History of Present Illness HPI Consult date: 11/21/2022 Requesting provider: Adin Boyce MD History of present illness: Patient with long history of right knee pain. Poor historian. Difficult to obtain information from him. States his knee is improving. He was seen by Dr. Kumar as a consult weeks ago. Initial assessment was gout as well as degenerative arthritis. There was improvement with medical treatment of gout. Patient states there is no significant worsening. [facility] Medical History Chronic pain COPD (chronic obstructive pulmonary disease) Gout HTN (hypertension) Hyperlipemia Family History Family/Other Pancreatic cancer Father Myocardial infarction Social History Smoking Status: Current every day smoker Tobacco Type: cigarettes Substance Use Type: None Allergies & Medications Medications and Allergies Allergies No Known Allergies Allergy (Verified 11/20/22 05:17) Home Medications atorvastatin 10 mg tablet 10 mg PO HS 03/02/18 [History Confirmed 11/20/22] celecoxib 200 mg capsule 200 mg PO DAILY 03/02/18 [History Confirmed 11/20/22] vortioxetine 10 mg tablet 10 mg PO DAILY 03/02/18 [History Confirmed 11/20/22] morphine 15 mg tablet,extended release (MS Contin) 15 mg PO BID PRN Pain 08/08/19 [History Confirmed 11/20/22] pregabalin 100 mg capsule (Lyrica) 100 mg PO TID 08/08/19 [History Confirmed 11/20/22] docusate sodium 100 mg capsule (DOK) 100 mg PO BID PRN Constipation 30 days #60 caps 08/09/19 [Rx Confirmed 11/20/22] colchicine (gout) 0.6 mg tablet 1.2 mg PO DAILY 09/10/21 [History Confirmed 11/20/22] mirtazapine 15 mg tablet 15 mg PO HS 10/27/22 [History Confirmed 11/20/22] verapamil 40 mg tablet 40 mg PO DAILY 10/27/22 [History Confirmed 11/20/22] allopurinol 300 mg tablet 300 mg PO DAILY 11/20/22 [History Confirmed 11/20/22] aspirin 81 mg tablet,delayed release 81 mg PO DAILY 11/20/22 [History Confirmed 11/20/22] famotidine 40 mg tablet 40 mg PO DAILY 11/20/22 [History Confirmed 11/20/22] Exam Physical Exam Vital Signs: Temp Pulse Resp BP Pulse Ox O2 Del Method 97.9 F 56 L 16 138/72 95 Room Air 11/21/22 07:25 11/21/22 07:25 11/21/22 07:25 11/21/22 07:25 11/21/22 07:25 11/21/22 08:23 Narrative: Patient sitting up and comfortable. There is generalized swelling of the right knee. Tender medially. No significant warmth. Calf and thigh are soft. Const General: cooperative Results Lab Results 11/21/22 05:45 11/21/22 05:45 Labs: Laboratory Results - Last 48 hrs. 11/21/22 05:45: PHA Creatinine Clear 68.09, Sodium 135 L, Potassium 3.8, Chloride 104, Carbon Dioxide 23.4, Anion Gap 11.4, BUN 28 H, Creatinine 1.13, Est GFR (CKD-EPI) > 60.0, Glucose 120 H, Calcium 8.1 L, Total Bilirubin 0.8, AST18, ALT 14, Alkaline Phosphatase 75, Total Protein 5.8 L, Albumin 3.1 L, Globulin 2.7, Albumin/Globulin Ratio 1.1 11/21/22 05:45: Corrected WBC 7.2, Uncorrected WBC Count 7.2, RBC 3.79 L, Hgb 12.8 L, Hct 37.2 L, MCV 98.3, MCH 33.8, MCHC 34.4, RDW 15.0 H, Plt Count 85 L, MPV 10.6 H, Neut % (Auto) 80.5, Lymph % (Auto) 12.1, [place] % (Auto) 7.0, Eos % (Auto) 0.1, Baso % (Auto) 0.3, Nucleat RBC Rel Count 0.2, Neut # (Auto) 5.8, Lymph # (Auto) 0.9 L, [place] # (Auto) 0.5, Eos # (Auto) 0.0, Baso # (Auto) 0.0 11/20/22 08:22: Urine Color Dark yellow A, Urine Appearance Clear, Urine pH 5.0,Ur Specific Clio 1.026, Urine Protein 300 H, Urine Glucose (UA) Normal, UrineKetones Trace H, Urine Occult Blood Negative, Urine Nitrite Positive H, Urine Bilirubin 2+ H, Urine Urobilinogen Normal, Ur Leukocyte Esterase 1+ H, Urine RBC3-4, Urine WBC 3-4, Ur Squamous Epith Cells 0-1, Urine Bacteria None seen, Hyaline Casts 9-19 H 11/20/22 07:21: C-Reactive Prot, Quant 5.4 H 11/20/22 07:21: ESR 17 11/20/22 07:21: Uric Acid 8.1 H 11/20/22 07:21: Ammonia 18 11/20/22 07:21: Total Creatine Kinase 62, Troponin I High Sens 59.7 H* 11/20/22 07:21: PHA Creatinine Clear 58.92, Sodium 136, Potassium 3.8, Chloride 102, Carbon Dioxide 25.3, Anion Gap 12.5, BUN 21, Creatinine 1.24, Est GFR (CKD-EPI) > 60.0, Glucose 117 H, Calcium 8.7, Total Bilirubin 1.9 H, Direct Bilirubin0.50 H, Indirect Bilirubin 1.4, AST 24, ALT 18, Alkaline Phosphatase 89, Total Protein 6.7, Albumin 3.7, Globulin 3.0, Albumin/Globulin Ratio 1.2 11/20/22 07:21: Corrected WBC 12.1 H, Uncorrected WBC Count 12.1 H, RBC 4.43, Hgb 14.9, Hct 44.0, MCV 99.4, MCH 33.7, MCHC 33.8, RDW 15.3 H, Plt Count 100 L, MPV 10.0, Neut % (Auto) 74.0, Lymph % (Auto) 16.1, [place] % (Auto) 9.3, Eos % (Auto) 0.2, Baso % (Auto) 0.4, Nucleat RBC Rel Count 0.1, Neut # (Auto) 8.9 H, Lymph # (Auto) 1.9, [place] # (Auto) 1.1 H, Eos # (Auto) 0.0, Baso # (Auto) 0.0, Monocyte Dist Width 20.87 H, Platelet Estimate Decreased, Plt Morphology CommentNormal, RBC Morphology N/A, Polychromasia Slight, Anisocytosis Slight, Macrocytosis Slight 11/20/22 05:18: POC Glucose 126, POC Glucose Comment Glu2: cleaned meter H & H 11/20/22 11/21/22 Range/Units 07:21 05:45 Hgb 14.9 12.8 L (13.0-17.0) g/dL Hct 44.0 37.2 L (38.8-50.0) % All other labs are normal. Imaging & Diagnostic Results Imaging/Diagnostics: X-rays of the right knee demonstrate severe degenerative arthritis medial compartment Assessment/Plan (1) Acute encephalopathy: Code(s): G93.40 - Encephalopathy, unspecified (2) Acute UTI: Code(s): N39.0 - Urinary tract infection, site not specified (3) Acute knee pain: Code(s): M25.569 - Pain in unspecified knee (4) Fall: Plan: Patient has definite severe degenerative arthritis involving the right knee withpossible associated gouty symptoms. Progress activity as tolerated. We will behappy to follow him in the office after discharge Code(s): W19.XXXA - Unspecified fall, initial encounter (5) Volume depletion: Code(s): E86.9 - Volume depletion, unspecified Documented By: Hilary Rice MD 11/21/22941 Signed By: <Electronically signed by MD Hilary Rice> 11/21/22 [address] [facility] Work Phone: 1(838) 448-132510-08-2023 History and physical note Author Tricia Salazar [facility] November 20, 2022 12:20pm Note Date/Time November 20, 2022 12 :09pm [facility] [address] [place] [address] Hospitalist H&P Signed Patient: Hilary Maldonado MR#: [id number] : 1945 Acct:[id number] Age/Sex: 77 / M Adm Date: 3 Loc: Room: [address] [place] [address] Type: ADM IN Attending Dr: Tricia Salazar MD Copies to: Tyree Ambrosio Jr, DO Tricia Salazar MD~ HPI DATE OF EXAMINATION: 11/20/22 CHIEF COMPLAINT: AMS HISTORY OF PRESENT ILLNESS: Mr. Maldonado is a 77-year-old male with a PMH of gout, arthritis, tobacco dependence,HTN, depression, headaches the presented to the emergency room, it seems he camethrough police, EMS was called at the scene where patient was outside, appeared confused, unable to operate the car. He fell onto his right knee. Stated he was trying to get food from outside. History is limited given his disorientation to the event, time or place. Only able to state his full name and follow simple commands. He does have history of gout mostly in his knee with previous evaluations for that. He has been adamant to go home on each hospitalization here. He is known to me from previous admission, found to have COVID, received treatment and plan was to go to rehab, however, he refused to cooperate to go there and went home and now he is back. He has not been following medical advice. Previously was evaluated on past admissions by orthopedic for his R knee, known hx of gout, questionable compliance to medications. Has not been on Allopurinol. Previously opted for conservative management since he refused interventions. He had psych eval for capacity and deemed to have capacity to make decisions. At this point of time, It does not seem he has capacity, he is disoriented and I do not believe he understands his medical condition. His sister Cami at bedside in ER during my encounter, she takes care of him, but he lives by himself, she only checks on him. He has been back for the third time rox month for similar issues. Obviously, home is not appropriate disposition for him at this time. Here he is afebrile, mild leukocytosis, UA mildly positive, some signs of dehydration, we will treat it with IV antibiotics. Decision was made to admit him for further evaluation and management with appropriate disposition. Review of Systems Review of Systems Unobtainable due to mental status [facility] Medical History Chronic pain COPD (chronic obstructive pulmonary disease) Gout HTN (hypertension) Hyperlipemia Family History Family/Other Pancreatic cancer Father Myocardial infarction Social History Smoking Status: Unknown if ever smoked Tobacco Type: cigarettes Substance Use Type: Unknown Meds Medications and Allergies Allergies No Known Allergies Allergy (Verified 11/20/22 05:17) Home Medications atorvastatin 10 mg tablet 10 mg PO HS 03/02/18 [History Confirmed 11/20/22] celecoxib 200 mg capsule 200 mg PO DAILY 03/02/18 [History Confirmed 11/20/22] vortioxetine 10 mg tablet 10 mg PO DAILY 03/02/18 [History Confirmed 11/20/22] morphine 15 mg tablet,extended release (MS Contin) 15 mg PO BID PRN Pain 08/08/19 [History Confirmed 11/20/22] pregabalin 100 mg capsule (Lyrica) 100 mg PO TID 08/08/19 [History Confirmed 11/20/22] docusate sodium 100 mg capsule (DOK) 100 mg PO BID PRN Constipation 30 days #60 caps 08/09/19 [Rx Confirmed 11/20/22] colchicine (gout) 0.6 mg tablet 1.2 mg PO DAILY 09/10/21 [History Confirmed 11/20/22] mirtazapine 15 mg tablet 15 mg PO HS 10/27/22 [History Confirmed 11/20/22] verapamil 40 mg tablet 40 mg PO DAILY 10/27/22 [History Confirmed 11/20/22] Exam Physical Exam Vital Signs: Temp Pulse Resp BP Pulse Ox O2 Del Method 97.8 F 67 20 138/80 98 Room Air 11/20/22 10:03 11/20/22 11:00 11/20/22 11:00 11/20/22 11:00 11/20/22 11:00 11/20/22 11:00 Narrative: Const General: confused HEENT dry oropharyngeal mucosa without any ulcers or exudates Eyes: Conjunctiva normal Pulmonary Auscultation: clear to auscultation , no crackles, no wheezes Cardiovascular Rate: normal rate Rhythm: regular rhythm Heart Sounds: S1 normal, S2 normal and no murmurs GI Inspection: non-distended Palpation: soft, not firm and nontender. No rigidity or rebound. Deferred Neuro General: alert, awake and oriented to self only, not to place or time. strength intact all extremities aside from RLE due to pain. No facial asymmetry, tongue is midline Musculoskeletal: Limited range of motion at R knee- very painful to touch, warm,swollen. Unable to evaluate further due to severe pain and aggressive behavior Extrem General: no cyanosis, no pedal edema Psych Appearance: flat affect, has some aggressive behavior Results Lab Results Labs: Laboratory Last Values Corrected WBC 12.1 X10E3/uL (4.1-10.5) H 11/20/22 07:21 Uncorrected WBC Count 12.1 x10E3/uL (4.1-10.5) H 11/20/22 07:21 RBC 4.43 X10E6/uL (3.90-5.60) 11/20/22 07:21 Hgb 14.9 g/dL (13.0-17.0) 11/20/22 07:21 Hct 44.0 % (38.8-50.0) 11/20/22 07:21 MCV 99.4 fl (83.5-101) 11/20/22 07:21 MCH 33.7 pg (27.5-35.2) 11/20/22 07:21 MCHC 33.8 g/dL (32.5-35.6) 11/20/22 07:21 RDW 15.3 % (12.0-14.8) H 11/20/22 07:21 Plt Count 100 x10E3/uL (150-450) L 11/20/22 07:21 MPV 10.0 fl (6.6-10.1) 11/20/22 07:21 Neut % (Auto) 74.0 % (.) 11/20/22 07:21 Lymph % (Auto) 16.1 % (.) 11/20/22 07:21 [place] % (Auto) 9.3 % (.) 11/20/22 07:21 Eos % (Auto) 0.2 % (.) 11/20/22 07:21 Baso % (Auto) 0.4 % (.) 11/20/22 07:21 Nucleat RBC Rel Count 0.1 /100 WBC (0-0.5) 11/20/22 07:21 Neut # (Auto) 8.9 x10E3/uL (1.8-7.7) H 11/20/22 07:21 Lymph # (Auto) 1.9 x10E3/uL (1.00-4.8) 11/20/22 07:21 [place] # (Auto) 1.1 x10E3/uL (0.0-0.8) H 11/20/22 07:21 Eos # (Auto) 0.0 x10E3/uL (0.0-0.45) 11/20/22 07:21 Baso # (Auto) 0.0 x10E3/uL (0.0-0.2) 11/20/22 07: Monocyte Dist Width 20.87 % (0.00-20.00) H 11/20/22 07:21 Platelet Estimate Decreased (Normal) 11/20/22 07:21 Plt Morphology Comment Normal (Normal) 11/20/22 07: RBC Morphology N/A 11/20/22 07: Polychromasia Slight 11/20/22 07:21 Anisocytosis Slight 11/20/22 07:21 Macrocytosis Slight 11/20/22 07:21 PHA Creatinine Clear 58.92 11/20/22 07:21 Sodium 136 mmol/L (136-145) 11/20/22 07:21 Potassium 3.8 mmol/L (3.5-5.1) 11/20/22 07:21 Chloride 102 mmol/L (98-107) 11/20/22 07:21 Carbon Dioxide 25.3 mmol/L (21.0-31.0) 11/20/22 07:21 Anion Gap 12.5 mEq/L (6.0-15.0) 11/20/22 07:21 BUN 21 mg/dL (7-25) 11/20/22 07:21 Creatinine 1.24 mg/dL (0.70-1.30) 11/20/22 07:21 Est GFR (CKD-EPI) > 60.0 mL/Min 11/20/22 07:21 Glucose 117 mg/dL (70-100) H 11/20/22 07:21 POC Glucose 126 mg/dl 11/20/22 05:18 POC Glucose Comment Glu2: cleaned meter 11/20/22 05:18 Uric Acid 8.1 mg/dL (4.4-7.6) H 11/20/22 07:21 Calcium 8.7 mg/dL (8.6-10.3) 11/20/22 07:21 Total Bilirubin 1.9 mg/dl (0.3-1.0) H 11/20/22 07:21 Direct Bilirubin 0.50 mg/dL (0.03-0.18) H 11/20/22 07:21 Indirect Bilirubin 1.4 mg/dL 11/20/22 07:21 AST 24 U/L (13-39) 11/20/22 07:21 ALT 18 U/L (7-52) 11/20/22 07:21 Alkaline Phosphatase 89 U/L (34-104) 11/20/22 07:21 Ammonia 18 umol/L (11-35) 11/20/22 07:21 Total Creatine Kinase 62 U/L (30-223) 11/20/22 07:21 Troponin I High Sens 59.7 pg/mL (0.0-20.0) H* 11/20/22 07:21 Total Protein 6.7 gm/dL (6.4-8.9) 11/20/22 07:21 Albumin 3.7 gm/dL (3.5-5.7) 11/20/22 07:21 Globulin 3.0 gm/dL 11/20/22 07:21 Albumin/Globulin Ratio 1.2 11/20/22 07:21 Urine Color Dark yellow (Yellow) A 11/20/22 08:22 Urine Appearance Clear (Clear) 11/20/22 08:22 Urine pH 5.0 (5.0-9.0) 11/20/22 08:22 Ur Specific Clio 1.026 (1.001-1.030) 11/20/22 08:22 Urine Protein 300 mg/dL (Negative) H 11/20/22 08:22 Urine Glucose (UA) Normal mg/dL (Normal) 11/20/22 08:22 Urine Ketones Trace (Negative) H 11/20/22 08:22 Urine Occult Blood Negative (Negative) 11/20/22 08:22 Urine Nitrite Positive (Negative) H 11/20/22 08:22 Urine Bilirubin 2+ (Negative) H 11/20/22 08:22 Urine Urobilinogen Normal mg/dL (Normal) 11/20/22 08:22 Ur Leukocyte Esterase 1+ (Negative) H 11/20/22 08:22 Urine RBC 3-4 /HPF (0-4) 11/20/22 08:22 Urine WBC 3-4 /HPF (0-4) 11/20/22 08:22 Ur Squamous Epith Cells 0-1 /HPF (0-2) 11/20/22 08:22 Urine Bacteria None seen (None Seen) 11/20/22 08:22 Hyaline Casts 9-19 /LPF (0-8) H 11/20/22 08:22 Assessment & Plan Assessment/Plan (1) Acute encephalopathy: (2) Acute UTI: (3) Acute knee pain: (4) Fall: (5) Volume depletion: Plan Acute encephalopathy-possibly metabolic Acute nonhemorrhagic cystitis Volume depletion -Afebrile here, has mild leukocytosis, UA mildly positive. -Follow urine culture -Adequate IV hydration -Will maintain IV antibiotics for now -Monitor mental status/Fever/WBC trend Acute on chronic R knee pain Suspected acute gout flare up Medication noncompliance Known hx of gout -Afebrile, mild leukocytosis -Will check ESR, CRP, uric acid -Continue Colchicine and Celebrex -Start IV steroids -Orthopedic consult for possible aspiration Gait instability Advanced age Physical debility Functional decline Falls -PT/OT evaluations -acoustical material worker/caser up for appropriate and safe disposition -Maintain fall precaution Home medications reviewed and restarted as appropriate Diet: Regular DVT ppx:heparin Code status: DNR CCA without intubation Disposition: inpatient status Discussed with his sister Cami at bedside. All questions answered. I do not believe that patient has medical capacity to make decisions at this time. Multiple hospitalization over a month for similar complaints. Might consider psych eval again for capacity. His sister is involved in her care, would reach out to her for any procedures, decision making regarding disposition. Tricia Dutton MD Internal Medicine Hospitalist Attending Physician IP vs OBS Justification Based on differential dx, clinical care plan, and risk of adverse events, if untreated, in my clinical judgement this patient requires an acute care setting as: INPATIENT because of an expectation of an over 2 midnight stay. Estimated length of stay (# of days): 3 Documented By: Tricia Salazar MD 11/20/22 11 58 Signed By: <Electronically signed by Tricia Salazar MD> 11/20/22 1220 [facility] Work Phone: 1(303) 930-324109-21-2023 Progress note Author Aashish Natarajan [facility] November 03, 2022 2:20pm Note Date/Time November 02, 2022 12:33pm [facility] [address] [place] [address] Hospitalist Progress Note Signed Patient: Hilary Maldonado MR#: [id number] : 1945 Acct:[id number] Age/Sex: 77 / M Adm Date: 3 Loc: 4N Room: [address] [place] [address] Type: ADM IN Attending Dr: Aashish Natarajan DO Copies to: ~ Date of Service: 11/02/2022 Subjective Subjective Narrative: Seen and examined at bedside. Resting comfortably in bed, denies any pain or discomfort. On room air with oxygen saturations in the high 90s, reporting productive intermittent cough. No fever or chills. Reporting good appetite today. Exam Physical Exam Vital Signs: Temp Pulse Resp BP Pulse Ox O2 Del Method 97.5 F L 51 L 18 167/89 H 95 Room Air 11/02/22 07:27 11/02/22 12:12 11/02/22 12:12 11/02/22 07:27 11/02/22 07:27 11/02/22 03:46 Narrative: CONST- Appears well -developed and well nourished No acute distress. CARDIAC-normal rate, regular rhythm, normal S1 & S2. PULM-clear without wheeze or rhonchi, RA, no accessory muscle use or cough noted ABD - Soft. Bowel sounds are normal. No distention No tenderness EXTREM-no edema BLE calves nontender SKIN- W/D good turgor Objective Lab Results 11/01/22 19:49 11/02/22 04:56 Microbiology Results Microbiology 11/02/22 00:15 Nasopharyngeal Respiratory Panel (PCR) - Final Meds Allergies and Active Meds Allergies No Known Allergies Allergy (Verified 11/01/22 16:37) Active Meds: Active Medications Generic Name Dose Route Start Last Admin Trade Name Freq PRN Reason Stop Dose Admin Acetaminophen 650 mg 11/01/22 22:27 Acetaminophen 325 Mg Tablet PO 11/01/23 22:26 Q6HR PRN Pain Scale 1 - 3 or fever Albuterol/Ipratropium 3 ml 11/02/22 08:00 11/02/22 12:12 Ipratropium/Albuterol 0.5-3 Mg 3 Ml Ampul.Neb INHALATION 11/02/23 07:59 3 ml QID.RESP EDWIGE Administration Allopurinol 300 mg 11/02/22 09:00 11/02/22 08:39 Allopurinol 300 Mg Tablet PO 11/02/23 08:59 300 mg DAILY EDWIGE Administration Amlodipine Besylate 5 mg 11/02/22 12:30 Amlodipine 5 Mg Tablet PO 11/02/23 12:29 DAILY EDWIGE Aspirin 81 mg 11/02/22 09:00 11/02/22 08:39 Aspirin 81 Mg Tablet.Dr PO 11/02/23 08:59 81 mg DAILY EDWIGE Administration Atorvastatin Calcium 10 mg 11/02/22 22:00 Atorvastatin 10 Mg Tablet PO 11/02/23 21:59 HS EDWIGE Celecoxib 200 mg 11/02/22 09:00 11/02/22 08:39 Celecoxib 200 Mg Capsule PO 11/02/23 08:59 200 mg DAILY EDWIGE Administration Colchicine 1.2 mg 11/02/22 09:00 11/02/22 08:39 Colchicine 0.6 Mg Tablet PO 11/02/23 08:59 1.2 mg DAILY EDWIGE Administration Dexamethasone Sodium Phosphate 6 mg 11/02/22 09:00 11/02/22 08:39 Dexamethasone Sod Phosphate 4 Mg/Ml Vial IV-PUSH 11/11/22 09:01 6 mg DAILY EDWIGE Administration Docusate Sodium 100 mg 11/01/22 22:36 Docusate 100 Mg Capsule PO 11/01/23 22:35 BID PRN Constipation Enoxaparin Sodium 40 mg 11/02/22 10:00 11/02/22 10:28 Enoxaparin 40 Mg/0.4 Ml Syringe SUBCUT 11/02/23 09:59 40 mg DAILY@10 EDWIGE Administration Famotidine 40 mg 11/02/22 09:00 11/02/22 08:39 Famotidine 20 Mg Tablet PO 11/02/23 08:59 40 mg DAILY EDWIGE Administration Guaifenesin 600 mg 11/01/22 22:27 Guaifenesin 600 Mg Tab.Er.12h PO 11/01/23 22:26 BID PRN Cough Guaifenesin/Dextromethorphan 10 ml 11/01/22 22:47 Guaif/Dextromethorphan Syrup 10 Ml Udc PO 11/01/23 22:46 Q8H PRN Cough Lactated Ringer's 1,000 mls @ 75 mls/hr 11/01/22 22:30 11/02/22 00:02 Lactated Ringers IV 11/03/22 01:09 75 mls/hr .[id number] EDWIGE Administration Remdesivir 100 mg/ Dextrose 250 mls @ 250 mls/hr 11/03/22 05:30 IV 11/06/22 06:29 Q24H EDWIGE Melatonin 3 mg 11/01/22 22:27 Melatonin 3 Mg Tablet PO 11/01/23 22:26 QHS PRN Insomnia Mirtazapine 15 mg 11/02/22 22:00 Mirtazapine 15 Mg Tablet PO 11/02/23 21:59 HS EDWIGE Morphine Sulfate 15 mg 11/01/22 22:36 Morphine Sulfate 12hr Er 15 Mg Tablet.Er PO BID PRN Pain 8-10 Pregabalin 100 mg 11/02/22 09:00 11/02/22 08:39 Pregabalin 100 Mg Capsule PO 05/01/23 08:59 100 mg TID EDWIGE Administration Prochlorperazine Edisylate 5 mg 11/01/22 22:27 Prochlorperazine Edisylate 10 Mg/2 Ml Vial IV-PUSH 11/01/23 22:26 Q4H PRN Nausea And Vomiting Sodium Chloride 0 ml 11/01/22 16:36 11/01/22 23:58 Sodium Chloride 0.9 % 10 Ml Syringe IV-PUSH 11/01/23 16:35 10 ml PRN PRN Administration Flush Sodium Chloride 10 ml 11/02/22 05:30 11/02/22 06:20 Sodium Chloride 0.9 % 10 Ml Syringe IV-PUSH 11/12/22 05:29 10 ml Q24H EDWIGE Administration Vortioxetine 10 mg 11/02/22 09:00 11/02/22 08:39 Vortioxetine 10 Mg Tablet PO 11/02/23 08:59 10 mg DAILY EDWIGE Administration A&P - Hospitalist Assessment/Plan (1) Unable to care for self: (2) Impaired mobility and ADLs: (3) Inability to ambulate due to knee: Plan COVID-19 infection?tested positive on admission Denies shortness of breath, intermittent productive cough, remains afebrile. Noleukocytosis ?CXR in ED with hazy bibasilar airspace opacities ?On remdesivir 100 mg every 24 hours ?On dexamethasone 6 mg IV daily ?Airborne isolation ?Continue supportive care with Tylenol, Mucinex Gait instability/Physical debility Poor oral intake ?Continue gentle hydration PT/OT evaluations ?acoustical material worker/caser up for appropriate and safe disposition ?Maintain fall precaution Diet: Regular DVT ppx: Lovenox Code status: DNR CCA without intubation Disposition: Observation status I personally reviewed the relevant history, the hill elements of the physical exam, and discussed and formulated the plan of care with the nurse practitioner,and I confirm the nurse practitioner's documentation as written. Aashish Natarajan DO Internal Medicine Hospitalist Documented By: Shawna Hartman APRN 11/02/22 1230 Signed By: <Electronically signed by PHYLLIS Hartman> 11/02/22 1525 <Electronically signed by Aashish Natarajan DO> 11/03/22 1420 [facility] Work Phone: 1([phone]) 469-166509-21-2023 Progress note Author Aashish Natarajan [facility] November 03, 2022 2:20pm Note Date/Time November 03, 2022 1:55pm [facility] [address] [place] [address] Hospitalist Progress Note Signed Patient: Hilary Maldonado MR#: [id number] : 1945 Acct:[id number] Age/Sex: 77 / M Adm Date: 3 Loc: 4N Room: [address] [place] [address] Type: ADM IN Attending Dr: Aashish Natarajan DO Copies to: ~ Date of Service: 11/03/2022 Subjective Subjective Narrative: Seen and examined, resting comfortably in chair. Denies any pain or discomfort,on room air with oxygen saturations above 90%. Continues with intermittent nonproductive cough which is improving. No fever, chills, nausea vomiting or diarrhea. Exam Physical Exam Vital Signs: Temp Pulse Resp BP Pulse Ox O2 Del Method 97.6 F 46 L 12 143/78 H 99 Room Air 11/03/22 07:26 11/03/22 07:26 11/03/22 11:46 11/03/22 11:46 11/03/22 11:46 11/03/22 11:46 Narrative: CONST- Appears well -developed and well nourished No acute distress. CARDIAC-normal rate, regular rhythm, normal S1 & S2. PULM-clear without wheeze or rhonchi, RA, no accessory muscle use or cough noted ABD - Soft. Bowel sounds are normal. No distention No tenderness EXTREM-no edema BLE calves nontender SKIN- W/D good turgor Objective Lab Results 11/01/22 19:49 11/03/22 05:47 Meds Allergies and Active Meds Allergies No Known Allergies Allergy (Verified 11/01/22 16:37) Active Meds: Active Medications Generic Name Dose Route Start Last Admin Trade Name Freq PRN Reason Stop Dose Admin Acetaminophen 650 mg 11/01/22 22:27 11/02/22 14:43 Acetaminophen 325 Mg Tablet PO 11/01/23 22:26 650 mg Q6HR PRN Administration Pain Scale 1 - 3 or fever Albuterol/Ipratropium 1 puff 11/03/22 08:00 11/03/22 11:33 Ipratropium/Albuterol 20 Mcg/100 Mcg *Nf* 120 Puff Mist.Inhal INHALATION 11/03/23 07:59 1 puff QID.RESP EDWIGE Administration Allopurinol 300 mg 11/02/22 09:00 11/03/22 10:47 Allopurinol 300 Mg Tablet PO 11/02/23 08:59 300 mg DAILY EDWIGE Administration Amlodipine Besylate 5 mg 11/02/22 12:30 11/03/22 10:47 Amlodipine 5 Mg Tablet PO 11/02/23 12:29 5 mg DAILY EDWIGE Administration Aspirin 81 mg 11/02/22 09:00 11/03/22 10:47 Aspirin 81 Mg Tablet.Dr PO 11/02/23 08:59 81 mg DAILY EDWIGE Administration Atorvastatin Calcium 10 mg 11/02/22 22:00 11/02/22 23:24 Atorvastatin 10 Mg Tablet PO 11/02/23 21:59 Not Given HS EDWIGE Celecoxib 200 mg 11/02/22 09:00 11/03/22 10:47 Celecoxib 200 Mg Capsule PO 11/02/23 08:59 200 mg DAILY EDWIGE Administration Colchicine 1.2 mg 11/02/22 09:00 11/03/22 10:47 Colchicine 0.6 Mg Tablet PO 11/02/23 08:59 1.2 mg DAILY EDWIGE Administration Dexamethasone Sodium Phosphate 6 mg 11/02/22 09:00 11/03/22 10:48 Dexamethasone Sod Phosphate 4 Mg/Ml Vial IV-PUSH 11/11/22 09:01 6 mg DAILY EDWIGE Administration Docusate Sodium 100 mg 11/01/22 22:36 Docusate 100 Mg Capsule PO 11/01/23 22:35 BID PRN Constipation Enoxaparin Sodium 40 mg 11/02/22 10:00 11/03/22 10:48 Enoxaparin 40 Mg/0.4 Ml Syringe SUBCUT 11/02/23 09:59 40 mg DAILY@10 EDWIGE Administration Famotidine 40 mg 11/02/22 09:00 11/03/22 10:48 Famotidine 20 Mg Tablet PO 11/02/23 08:59 40 mg DAILY EDWIGE Administration Guaifenesin 600 mg 11/01/22 22:27 Guaifenesin 600 Mg Tab.Er.12h PO 11/01/23 22:26 BID PRN Cough Guaifenesin/Dextromethorphan 10 ml 11/01/22 22:47 Guaif/Dextromethorphan Syrup 10 Ml Udc PO 11/01/23 22:46 Q8H PRN Cough Remdesivir 100 mg/ Dextrose 250 mls @ 250 mls/hr 11/03/22 05:30 11/03/22 05:51 IV 11/06/22 06:29 250 mls/hr Q24H EDWIGE Administration Melatonin 3 mg 11/01/22 22:27 Melatonin 3 Mg Tablet PO 11/01/23 22:26 QHS PRN Insomnia Mirtazapine 15 mg 11/02/22 22:00 11/02/22 23:24 Mirtazapine 15 Mg Tablet PO 11/02/23 21:59 Not Given HS EDWIGE Morphine Sulfate 15 mg 11/01/22 22:36 11/03/22 01:49 Morphine Sulfate 12hr Er 15 Mg Tablet.Er PO 15 mg BID PRN Administration Pain 8-10 Pregabalin 100 mg 11/02/22 09:00 11/03/22 10:47 Pregabalin 100 Mg Capsule PO 05/01/23 08:59 100 mg TID EDWIGE Administration Prochlorperazine Edisylate 5 mg 11/01/22 22:27 Prochlorperazine Edisylate 10 Mg/2 Ml Vial IV-PUSH 11/01/23 22:26 Q4H PRN Nausea And Vomiting Sodium Chloride 0 ml 11/01/22 16:36 11/03/22 05:51 Sodium Chloride 0.9 % 10 Ml Syringe IV-PUSH 11/01/23 16:35 10 ml PRN PRN Administration Flush Sodium Chloride 10 ml 11/02/22 05:30 11/03/22 05:50 Sodium Chloride 0.9 % 10 Ml Syringe IV-PUSH 11/12/22 05:29 10 ml Q24H EDWIGE Administration Vortioxetine 10 mg 11/02/22 09:00 11/03/22 10:47 Vortioxetine 10 Mg Tablet PO 11/02/23 08:59 10 mg DAILY EDWIGE Administration A&P - Hospitalist Assessment/Plan (1) Unable to care for self: (2) Impaired mobility and ADLs: (3) Inability to ambulate due to knee: Plan COVID-19 infection?tested positive on admission Encephalopathy?associated with above, improved Denies shortness of breath, intermittent productive cough, remains afebrile. 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 Aashish Natarajan DO Internal Medicine Hospitalist Documented By: Shawna Hartman APRN 11/03/22 1352 Signed By: <Electronically signed by PHYLLIS Hartman> 11/03/22 1408 <Electronically signed by Aashish Natarajan DO> 11/03/22 1420 [facility] Work Phone: 1(401) 295-536309-20-2023 Consult note Author Ayaz Cruz [facility] November 02, 2022 1:34pm Note Date/Time November 02, 2022 1:21pm [facility] [address] [place] [address] Physiatry (Rehab) Consult Note Signed Patient: Hilary Maldonado MR#: [id number] : 1945 Acct:[id number] Age/Sex: 77 / M Adm Date: 3 Loc: Room: [address] [place] [address] Type: ADM IN Attending Dr: Aashish Natarajan DO Copies to: MD Tyree Zuñiga Jr, DO Kyle T Cleveland, DO~ HPI Consult Date: 11/02/22 Requesting Physician: Aashish Natarajan DO Primary Care Provider: Damian Ambrosio DO Consult Narrative Reason for consult: Evaluation for inpatient rehab HPI: Mr. Maldonado is a 77 year old male with PMH gout, arthritis, tobacco dependence, HTN,and depression who presented to [facility] with his sister due to confusion and inability to take care of himself. The patient was recently at [facility] due to rightknee pain 2/2 gout. He was treated with colchicine and IV Toradol but had an AKIso this was DCd and he was started on prednisone. Refused knee aspiration. PM&R was consulted at that time for evaluation for inpatient rehab. I was recommending SNF at that time due to no rehab diagnosis. The patient refused SNFand was discharged home. He lives alone and was unable to take care of himself and developed confusion so was therefore brought to the hospital. Upon admission, he tested positive for COVID 19. Is now being treated with Remdesivirand dexamethasone. Remains slightly confused although oriented to person and place. The patient lives alone in a 1 story home with several steps to enter. Notes that laundry is in the basement with a full flight down. Was mostly independent before but did have to crawl up/down stairs. PM&R was consulted for evaluation. This patient was seen and evaluated at bedside. Lying comfortably in bed. No major concerns today. No significant pain. Oriented to person, place, and year. Therapy updates: Bed mobility: Prashant-CGA Ambulation: 8' FWW Prashant Review of Systems Review of Systems All other systems reviewed & are negative unless noted below or in HPI [facility] Medical History Chronic pain COPD (chronic obstructive pulmonary disease) Gout HTN (hypertension) Hyperlipemia Family History Family/Other Pancreatic cancer Father Myocardial infarction Social History Smoking Status: Current every day smoker Tobacco Type: cigarettes Substance Use Type: None Meds Medications and Allergies Allergies No Known Allergies Allergy (Verified 11/01/22 16:37) Home Medications atorvastatin 10 mg tablet 10 mg PO HS 03/02/18 [History Confirmed 11/01/22] celecoxib 200 mg capsule 200 mg PO DAILY 03/02/18 [History Confirmed 11/01/22] vortioxetine 10 mg tablet 10 mg PO DAILY 03/02/18 [History Confirmed 11/01/22] aspirin 81 mg tablet,delayed release (Aspir-) 81 mg PO DAILY 08/08/19 [History Confirmed 11/01/22] famotidine 40 mg tablet 40 mg PO DAILY 08/08/19 [History Confirmed 11/01/22] morphine 15 mg tablet,extended release (MS Contin) 15 mg PO BID PRN Pain 08/08/19 [History Confirmed 11/01/22] pregabalin 100 mg capsule (Lyrica) 100 mg PO TID 08/08/19 [History Confirmed 11/01/22] docusate sodium 100 mg capsule (DOK) 100 mg PO BID PRN Constipation 30 days #60 caps 08/09/19 [Rx Confirmed 11/01/22] allopurinol 300 mg tablet 300 mg PO DAILY 09/10/21 [History Confirmed 11/01/22] colchicine (gout) 0.6 mg tablet 1.2 mg PO DAILY 09/10/21 [History Confirmed 11/01/22] mirtazapine 15 mg tablet 15 mg PO HS 10/27/22 [History Confirmed 11/01/22] verapamil 40 mg tablet 40 mg PO DAILY 10/27/22 [History Confirmed 11/01/22] prednisone 20 mg tablet 40 mg PO DAILY 15 days #30 tabs 10/30/22 [Rx Confirmed 11/01/22] Exam Physical Exam Vital Signs: Temp Pulse Resp BP Pulse Ox O2 Del Method 97.6 F 53 L 14 156/73 H 96 Room Air 11/02/22 12:27 11/02/22 12:27 11/02/22 12:27 11/02/22 12:27 11/02/22 12:27 11/02/22 12:27 Narrative: General: Awake, alert, oriented to person, place, year, pleasant, cooperative, well nourished. Resting comfortably in bed HENT: NC, AT Eyes: No scleral icterus Neck: Supple Cardio: RRR, no murmurs, rubs or gallops Respiratory: CTAB, no wheezes rhonchi or rales. No evidence of respiratory distress GI: Soft, nontender, nondistended, bowel sounds normal in all 4 quadrants Neuro: CN II-XII intact. Strength 5/5 right upper and lower extremities. Strength 5/5 left upper and lower extremities. Sensation intact bilateral lowerextremities. Extremities: No edema, erythema, cyanosis Psych: Affect, speech and movements normal. Mood congruent Results Labs Labs: Laboratory Results - last 24 hr 11/01/22 11/01/22 11/01/22 19:49 19:49 19:49 Corrected WBC 5.5 Uncorrected WBC Count 5.5 RBC 3.84 L Hgb 12.7 L Hct 38.3 L MCV 99.8 MCH 33.1 MCHC 33.2 RDW 14.8 Plt Count 119 L MPV 8.9 Neut % (Auto) 53.4 Lymph % (Auto) 32.6 [place] % (Auto) 13.4 Eos % (Auto) 0.3 Baso % (Auto) 0.3 Nucleat RBC Rel Count 0.3 Neut # (Auto) 3.0 Lymph # (Auto) 1.8 [place] # (Auto) 0.7 Eos # (Auto) 0.0 Baso # (Auto) 0.0 Monocyte Dist Width 22.50 H PHA Creatinine Clear 62.99 Sodium 138 Potassium 3.7 Chloride 105 Carbon Dioxide 29.2 Anion Gap 7.5 BUN 24 Creatinine 1.16 Est GFR (CKD-EPI) > 60.0 Glucose 93 Uric Acid Calcium 8.7 Total Bilirubin 0.6 AST 65 H ALT 41 Alkaline Phosphatase 69 Troponin I High Sens 34.7 H Total Protein 6.5 Albumin 3.3 L Globulin 3.2 Albumin/Globulin Ratio 1.0 Urine Color Urine Appearance Urine pH Ur Specific Clio Urine Protein Urine Glucose (UA) Urine Ketones Urine Occult Blood Urine Nitrite Urine Bilirubin Urine Urobilinogen Ur Leukocyte Esterase Urine RBC Urine WBC Ur Squamous Epith Cells Urine Bacteria Hyaline Casts COVID-19 Clin Com 11/01/22 11/02/22 11/02/22 21:21 00:15 04:56 Corrected WBC Uncorrected WBC Count RBC Hgb Hct MCV MCH MCHC RDW Plt Count MPV Neut % (Auto) Lymph % (Auto) [place] % (Auto) Eos % (Auto) Baso % (Auto) Nucleat RBC Rel Count Neut # (Auto) Lymph # (Auto) [place] # (Auto) Eos # (Auto) Baso # (Auto) Monocyte Dist Width PHA Creatinine Clear 66.42 Sodium 137 Potassium 4.1 Chloride 106 Carbon Dioxide 26.0 Anion Gap 9.1 BUN 21 Creatinine 1.10 Est GFR (CKD-EPI) > 60.0 Glucose 124 H Uric Acid 6.5 Calcium 8.4 L Total Bilirubin 0.6 AST 66 H ALT 41 Alkaline Phosphatase 67 Troponin I High Sens Total Protein 6.3 L Albumin 3.2 L Globulin 3.1 Albumin/Globulin Ratio 1.0 Urine Color Yellow Urine Appearance Clear Urine pH 5.5 Ur Specific Clio 1.024 Urine Protein 300 H Urine Glucose (UA) Normal Urine Ketones Negative Urine Occult Blood Negative Urine Nitrite Negative Urine Bilirubin Negative Urine Urobilinogen Normal Ur Leukocyte Esterase Negative Urine RBC 3-4 Urine WBC 1-2 Ur Squamous Epith Cells None seen Urine Bacteria None seen Hyaline Casts 0-8 COVID-19 Clin Com Detected A Additional Results Results Comment: I reviewed clinical lab tests, radiology reports and obtained and summated medical records and have ordered follow up lab tests and imaging studies as needed for rehabilitation care. Assessment/Plan (1) COVID-19: Code(s): U07.1 - COVID-19 Status: Acute (2) Encephalopathy: Code(s): G93.40 - Encephalopathy, unspecified Status: Acute (3) Unable to care for self: Code(s): Z78.9 - Other specified health status Status: Acute (4) Impaired mobility and ADLs: Code(s): Z74.09 - Other reduced mobility; Z78.9 - Other specified health status Status: Acute (5) HTN (hypertension): Code(s): I10 - Essential (primary) hypertension Status: Acute (6) Gout: Code(s): M10.9 - Gout, unspecified Status: Acute Plan This is a 77 y/o male with PMH gout, arthritis, HTN, who presented to [facility] with confusion and inability to care for himself. Tested positive for COVID-19. 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 I would therefore recommend acute inpatient rehab for this patient prior to return home. 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 The patient has functional deficits requiring both active and ongoing therapeutic intervention of at least 2 disciplines of therapy, physical therapy/Occupational Therapy +/- speech therapy. Patient has worked appropriately with multiple disciplines of therapy on acute care, and demonstrates ability to tolerate and participate and make reasonable gains with at least a 15 hour/week inpatient rehabilitation program. Due to medical complexity as noted, rehabilitation physician supervision is bothreasonable and necessary, including [id number] visits at least 3 days/week with the need to treat, manage and modify course of treatment, including participating in at least once weekly interdisciplinary team conferences. The patient requires multidisciplinary rehabilitation treatment including rehabilitation physician at least 3 times per week, 24-hour rehabilitation nursing, physical occupational therapy, plus/minus speech-language pathology, rehabilitation case management, nutrition services, plus minus rehabilitation psychology. This case cannot be best/most appropriately managed at a lower level of care. Estimated length of rehabilitation stay: 10 Days Prior Level of Function: IND Expected functional status at discharge from rehab: Self-care (ADLs) : Mod I Bed Mobility/Transfers: Mod I Ambulation:Mod I Cognition: Mod I Swallowing:Mod I There is a reasonable plan in place for discharge to the community. Overall prognosis is fair to good to make functional gains that would make substantial difference in the eventual discharge setting. Plan: I completed a substantive portion of this encounter, the medical decision makingportion of this note in its entirety, including Allied health note review, nursing note review, network consultant note review, discussion with nursing and case management, and more than 50% of my time was spent on counseling and coordination of care, time spent 65 minutes Patient was personally seen by me, Dr. Cruz, on the day of encounter, reviewed the history and the relevant portions of the chart, including current orders, allied health and network consultant notes, labs/imaging and performed hill elements of exam and I formulated the plan of care and facilitated the medical decision making. Documented By: Ayaz Cruz MD [id number] Signed By: <Electronically signed by Ayaz Cruz MD> 11/02/22 8944 [facility] Work Phone: 1(271) 376-877009-20-2023 Hospital Discharge instructions Additional Instructions REHAB TO MANAGE: Patient tested positive for Covid on 11/02/22. Please follow precautions per protocol. PT/OT to eval and treat Monitor VS per protocol Maintain high risk fall precautions [facility]: 1(279) 148-720509-20-2023 History and physical note Author Tricia Salazar [facility] November 02, 2022 4:33am Note Date/Time November 01, 2022 10:50pm [facility] [address] [place] [address] Hospitalist H&P Signed with Addenda Patient: Hilary Maldonado MR#: [id number] : 1945 Acct:[id number] Age/Sex: 77 / M Adm Date: 3 Loc: 4N Room: 2F8579-9 Type: ADM INOo Attending Dr: Tricia Salazar MD Copies to: Tyree Ambrosio Jr, DO Tricia Salazar MD~ ADDENDUM1 Resp panel was done and patient tested positive for COVID. He does have productive cough, oxygen saturation around 90% also has underlying COPD/chronic smoker. Check CXR. Given his risk, will start Remdesivir and Decadron per protocol. Placed on isolation per protocol. Addendum Documented By: Tricia Salazar MD 11/02/22431 Addendum Signed By: <Electronically signed by Tricia Salazar MD> 11/02/22 0432 HPI DATE OF EXAMINATION: 11/01/22 CHIEF COMPLAINT: Confusion, unable to care for self HISTORY OF PRESENT ILLNESS: Mr. Maldonado is a 77-year-old male with a PMH of gout, arthritis, tobacco dependence,HTN, depression, headaches the presents to the emergency room accompanied by hissister due to confusion and inability to care for self. Patient was discharged recently from our facility after hospitalization for right knee pain with effusion. Orthopedic was consulted at that time and impression was likely acutegout flare leading to joint pain and effusion. Knee aspiration was discussed with the patient which she refused. He was started on IV Toradol and colchicinebut developed renal failure for which these were discontinued. He was started on prednisone with taper and was discharged with outpatient follow-up. During hospital course patient was offered to go to detention facility since he lives by himself and unable to care for self, unable to perform his ADLs or takehis medications, also has poor oral intake. He was evaluated by psychiatry on previous admission and deemed to have capacity to make decisions. Patient refused to go to detention facility and went home upon discharge. Now he is back with periods of confusion according to his sister and inability to care for self or take his medications for which she is developing right knee pain dueto gout. Decision was made to keep him for observation for adequate IV hydration and possible placement. Review of Systems Review of Systems Unobtainable due to mental status [facility] Medical History Chronic pain COPD (chronic obstructive pulmonary disease) Gout HTN (hypertension) Hyperlipemia Family History Family/Other Pancreatic cancer Father Myocardial infarction Social History Smoking Status: Never smoker Substance Use Type: None Meds Medications and Allergies Allergies No Known Allergies Allergy (Verified 11/01/22 16:37) Home Medications atorvastatin 10 mg tablet 10 mg PO HS 03/02/18 [History Confirmed 10/27/22] celecoxib 200 mg capsule 200 mg PO DAILY 03/02/18 [History Confirmed 10/27/22] vortioxetine 10 mg tablet 10 mg PO DAILY 03/02/18 [History Confirmed 10/27/22] aspirin 81 mg tablet,delayed release (Aspir-) 81 mg PO DAILY 08/08/19 [History Confirmed 10/26/22] famotidine 40 mg tablet 40 mg PO DAILY 08/08/19 [History Confirmed 10/27/22] morphine 15 mg tablet,extended release (MS Contin) 15 mg PO BID PRN Pain 08/08/19 [History Confirmed 10/27/22] pregabalin 100 mg capsule (Lyrica) 100 mg PO TID 08/08/19 [History Confirmed 10/27/22] docusate sodium 100 mg capsule (DOK) 100 mg PO BID PRN Constipation 30 days #60 caps 08/09/19 [Rx Confirmed 10/27/22] allopurinol 300 mg tablet 300 mg PO DAILY 09/10/21 [History Confirmed 10/27/22] colchicine (gout) 0.6 mg tablet 1.2 mg PO DAILY 09/10/21 [History Confirmed 10/27/22] mirtazapine 15 mg tablet 15 mg PO HS 10/27/22 [History Confirmed 10/27/22] verapamil 40 mg tablet 40 mg PO DAILY 10/27/22 [History Confirmed 10/27/22] prednisone 20 mg tablet 40 mg PO DAILY 15 days #30 tabs 10/30/22 [Rx] Exam Physical Exam Vital Signs: Temp Pulse Resp BP Pulse Ox O2 Del Method 98.1 F 50 L 18 107/56 L 95 Room Air 11/01/22 16:33 11/01/22 20:30 11/01/22 20:30 11/01/22 20:30 11/01/22 20:30 11/01/22 20:30 Narrative: Const General: cooperative, very hard of hearing HEENT Normal oropharyngeal mucosa without any ulcers or exudates Eyes: Conjunctiva normal Pulmonary Auscultation: Diminished breath sounds, bilateral expiratory wheezing Cardiovascular Rate: normal rate Rhythm: regular rhythm Heart Sounds: S1 normal, S2 normal and no murmurs GI Inspection: non-distended Palpation: soft, not firm and nontender. No rigidity or rebound. Deferred Neuro General: alert, awake, mental status waxing and waning, periods of confusion. No obvious new focal deficit Musculoskeletal: normal range of motion Extrem General: no cyanosis, trace pedal edema, R knee mild swelling Psych Appearance: confused Results Lab Results Labs: Laboratory Last Values Corrected WBC 5.5 X10E3/uL (4.1-10.5) 11/01/22 19:49 Uncorrected WBC Count 5.5 x10E3/uL (4.1-10.5) 11/01/22 19:49 RBC 3.84 X10E6/uL (3.90-5.60) L 11/01/22 19:49 Hgb 12.7 g/dL (13.0-17.0) L 11/01/22 19:49 Hct 38.3 % (38.8-50.0) L 11/01/22 19:49 MCV 99.8 fl (83.5-101) 11/01/22 19:49 MCH 33.1 pg (27.5-35.2) 11/01/22 19:49 MCHC 33.2 g/dL (32.5-35.6) 11/01/22 19:49 RDW 14.8 % (12.0-14.8) 11/01/22 19:49 Plt Count 119 x10E3/uL (150-450) L 11/01/22 19:49 MPV 8.9 fl (6.6-10.1) 11/01/22 19:49 Neut % (Auto) 53.4 % (.) 11/01/22 19:49 Lymph % (Auto) 32.6 % (.) 11/01/22 19:49 [place] % (Auto) 13.4 % (.) 11/01/22 19:49 Eos % (Auto) 0.3 % (.) 11/01/22 19:49 Baso % (Auto) 0.3 % (.) 11/01/22 19:49 Nucleat RBC Rel Count 0.3 /100 WBC (0-0.5) 11/01/22 19:49 Neut # (Auto) 3.0 x10E3/uL (1.8-7.7) 11/01/22 19:49 Lymph # (Auto) 1.8 x10E3/uL (1.00-4.8) 11/01/22 19:49 [place] # (Auto) 0.7 x10E3/uL (0.0-0.8) 11/01/22 19:49 Eos # (Auto) 0.0 x10E3/uL (0.0-0.45) 11/01/22 19:49 Baso # (Auto) 0.0 x10E3/uL (0.0-0.2) 11/01/22 19:49 Monocyte Dist Width 22.50 % (0.00-20.00) H 11/01/22 19:49 PHA Creatinine Clear 62.99 11/01/22 19:49 Sodium 138 mmol/L (136-145) 11/01/22 19:49 Potassium 3.7 mmol/L (3.5-5.1) 11/01/22 19:49 Chloride 105 mmol/L (98-107) 11/01/22 19:49 Carbon Dioxide 29.2 mmol/L (21.0-31.0) 11/01/22 19:49 Anion Gap 7.5 mEq/L (6.0-15.0) 11/01/22 19:49 BUN 24 mg/dL (7-25) 11/01/22 19:49 Creatinine 1.16 mg/dL (0.70-1.30) 11/01/22 19:49 Est GFR (CKD-EPI) > 60.0 mL/Min 11/01/22 19:49 Glucose 93 mg/dL (70-100) 11/01/22 19:49 Calcium 8.7 mg/dL (8.6-10.3) 11/01/22 19:49 Total Bilirubin 0.6 mg/dl (0.3-1.0) 11/01/22 19:49 AST 65 U/L (13-39) H 11/01/22 19:49 ALT 41 U/L (7-52) 11/01/22 19:49 Alkaline Phosphatase 69 U/L (34-104) 11/01/22 19:49 Troponin I High Sens 34.7 pg/mL (0.0-20.0) H 11/01/22 19:49 Total Protein 6.5 gm/dL (6.4-8.9) 11/01/22 19:49 Albumin 3.3 gm/dL (3.5-5.7) L 11/01/22 19:49 Globulin 3.2 gm/dL 11/01/22 19:49 Albumin/Globulin Ratio 1.0 11/01/22 19:49 Urine Color Yellow (Yellow) 11/01/22 21:21 Urine Appearance Clear (Clear) 11/01/22 21:21 Urine pH 5.5 (5.0-9.0) 11/01/22 21:21 Ur Specific Clio 1.024 (1.001-1.030) 11/01/22 21:21 Urine Protein 300 mg/dL (Negative) H 11/01/22 21:21 Urine Glucose (UA) Normal mg/dL (Normal) 11/01/22 21:21 Urine Ketones Negative (Negative) 11/01/22 21:21 Urine Occult Blood Negative (Negative) 11/01/22 21:21 Urine Nitrite Negative (Negative) 11/01/22 21:21 Urine Bilirubin Negative (Negative) 11/01/22 21:21 Urine Urobilinogen Normal mg/dL (Normal) 11/01/22 21:21 Ur Leukocyte Esterase Negative (Negative) 11/01/22 21:21 Urine RBC 3-4 /HPF (0-4) 11/01/22 21:21 Urine WBC 1-2 /HPF (0-4) 11/01/22 21:21 Ur Squamous Epith Cells None seen /HPF (0-2) 11/01/22 21:21 Urine Bacteria None seen (None Seen) 11/01/22 21:21 Hyaline Casts 0-8 /LPF (0-8) 11/01/22 21:21 Assessment & Plan Assessment/Plan (1) Unable to care for self: (2) Impaired mobility and ADLs: (3) Inability to ambulate due to knee: Plan Gait instability Advanced age Physical debility Functional decline Recent gout flare Poor oral intake Unable to care for self or perform ADLs -Adequate IV hydration -Resume home medications -We will do IV steroids while here for gout -Check uric acid -Monitor kidney function -PT/OT evaluations -acoustical 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 She was trying to convince the patient to stay in the hospital to get the help he needs since it is unsafe for him to go home at this time. His sister would like to be informed regarding discharge planning since she does not feel safe for him to go home again and she is willing to speak with the patient again regarding SNF. Tricia Dutton MD Internal Medicine Hospitalist Attending Physician IP vs OBS Justification Based on differential dx, clinical care plan, and risk of adverse events, if untreated, in my clinical judgement this patient requires an acute care setting as: OBSERVATION because of an expectation of an under 2 midnight stay. Estimated length of stay (# of days): 2 Documented By: Tricia Salazar MD 11/01/22 22 39 Signed By: <Electronically signed by Tricia Salazar MD> 11/01/22 0351 [facility] Work Phone: 1(465) 679-892209-16-2023 Progress note Author Pedro Luis Frye [facility] October 29, 2022 2:05pm Note Date/Time October 29, 2022 11:12am [facility] [address] [place] [address] Hospitalist Progress Note Signed with Addenda Patient: Hilary Maldonado MR#: [id number] : 1945 Acct:[id number] Age/Sex: 77 / M Adm Date: 3 Loc: Room: [address] [place] [address] Type: ADM IN Attending Dr: Pedro Luis Frye MD Copies to: ~ ADDENDUM1 Patient was personally seen by me on the day of encounter, reviewed his history and performed hill elements of exam and formulated the plan of care and confirmedthe resident/interns note below. This morning on examination patient is more conversant and answering appropriately. He understands that he is n the hospital for treatment of right knee pain due to acute gout flare. Discussed with the patient regarding skillednursing facility which he refused and wants to go home. He is okay with home health care. Given his improving right knee pain plan to discharge home tomorrow if continues to improve. Renal function improving as well. Appreciatepsychiatry consultation and patient does have capacity to make decision. Addendum Documented By: Pedro Luis Frye MD 10/29/221404 Addendum Signed By: <Electronically signed by Pedro Luis Frye MD> 10/29/22 1403 Date of Service: 10/29/2022 Subjective Subjective Narrative: A very hard on hearing Mr. Maldonado was examined seated upright comfortably in room chair. He is able to verbalize today, alert and oriented more cooperative and able to provide more subjective detail improved from yesterday. States he refuses to drink water, does not like the taste only drink sugary sodas. Mr. Barrera' family was supposed to visit however they are sick with COVID and will be unable to. Hilary' sister who has leukemia stated she does not want him to live alone anymore can no longer coordinate care for Hilary. He has a history ofnot caring for himself and medication noncompliance. I was able to discuss medication compliance with Hilary. Patient walked me through his ritual of setting up his weekly pill schedule. Would prefer him to be moved to inpatient PT upstairs then an extended care facility. She canceled the ENT appointment however the ENT office stated it was an urgent appointment. They intend to reschedule ENT appointment next week. Exam Physical Exam Vital Signs: Temp Pulse Resp BP Pulse Ox O2 Del Method 97.6 F 64 18 149/77 H 99 Room Air 10/29/22 08:00 10/29/22 08:00 10/29/22 08:00 10/29/22 08:00 10/29/22 08:00 10/29/22 08:00 Narrative: CONST- Appears well -developed, frail, cachectic HEAD - Normocephalic and atraumatic. Single firm palpable left preauricular lymph node approximately 3 x 2 cm EENT-Sclera nonicteric, conjunctive are non-erythemic, dry oral mucosa, pharynx clear NECK-Supple, no cervical lymphadenopathy CARDIAC-normal rate, regular rhythm, S1 & S2. PULM-diminished without wheeze or rhonchi, RA, no accessory muscle use or cough noted ABD - Soft. Bowel sounds are normal. No distention. No tenderness EXTREM- generalized swelling to R knee, tender to palpation to right knee, no redness or warmth noted SKIN- W/D good turgor, chronic discoloration to bilateral feet ankles MS- MAEX4 spontaneously with equal with equal strength-weakness and pain to RLE NEURO- A&Ox3 speech clear and tongue midline, equal facial symmetry, no focal motor deficits PSYCH-irritable mood on questioning Objective Lab Results 10/29/22 06:09 10/29/22 06:09 Meds Allergies and Active Meds Allergies No Known Allergies Allergy (Verified 10/26/22 21:04) Active Meds: Active Medications Generic Name Dose Route Start Last Admin Trade Name Freq PRN Reason Stop Dose Admin Acetaminophen 1,000 mg 10/27/22 10:00 10/29/22 10:05 Acetaminophen 500 Mg Tablet PO 10/27/23 09:59 1,000 mg Q6H EDWIGE Administration Atorvastatin Calcium 10 mg 10/28/22 22:00 10/28/22 22:19 Atorvastatin 10 Mg Tablet PO 10/28/23 21:59 10 mg HS EDWIGE Administration Docusate Sodium 100 mg 10/27/22 09:00 10/29/22 10:06 Docusate 100 Mg Capsule PO 10/27/23 08:59 100 mg BID EDWIGE Administration Hydralazine HCl 10 mg 10/27/22 00:12 Hydralazine 20 Mg/Ml Vial IV-PUSH 10/27/23 00:11 Q4H PRN Hypertension Mirtazapine 15 mg 10/28/22 22:00 10/28/22 22:19 Mirtazapine 15 Mg Tablet PO 10/28/23 21:59 15 mg HS EDWIGE Administration Morphine Sulfate 15 mg 10/27/22 21:00 10/29/22 10:05 Morphine Sulfate 12hr Er 15 Mg Tablet.Er PO 15 mg Q12HR EDWIGE Administration Naloxone HCl 0.1 mg 10/27/22 00:12 Naloxone Hcl 0.4 Mg/Ml Vial IV-PUSH 10/27/23 00:11 Q2M PRN Opioid Reversal Nicotine 1 each 10/27/22 00:23 Nicotine Patch 21 Mg/24hr 1 Each Patch.Td24 TRANSDERML 12/07/22 09:01 DAILY PRN Nicotine Cravings Pantoprazole Sodium 40 mg 10/28/22 15:05 10/29/22 10:06 Pantoprazole 40 Mg Tablet. PO 10/28/23 15:04 40 mg DAILY EDWIGE Administration Prednisone 40 mg 10/28/22 11:55 10/29/22 10:05 Prednisone 20 Mg Tablet PO 10/28/23 11:54 40 mg DAILY EDWIGE Administration Pregabalin 100 mg 10/28/22 21:00 10/29/22 10:05 Pregabalin 100 Mg Capsule PO 04/26/23 20:59 100 mg BID EDWIGE Administration Sodium Chloride 10 ml 10/27/22 09:40 Sodium Chloride 0.9 % 10 Ml Syringe IV-PUSH 10/27/23 09:39 PRN PRN Flush Vortioxetine 10 mg 10/29/22 09:00 10/29/22 10:05 Vortioxetine 10 Mg Tablet PO 10/29/23 08:59 10 mg DAILY EDWIGE Administration A&P - Hospitalist Assessment/Plan (1) Effusion of right knee: (2) Frequent falls: (3) Generalized weakness: (4) Chronic pain: (5) Thrombocytopenia: (6) HTN (hypertension): (7) Gout: (8) Inability to ambulate due to knee: (9) Impaired mobility and ADLs: Plan Patient seated upright watching TV comfortably, now able to provide subjective detail with improved competency. History of irritability at home and on admission. PDMP was reviewed. Patient home med morphine sulfate 15 mg ER twicedaily by pain management for moderate/severe gouty knee joint and pain. Sister stated he lives alone and cannot care for himself properly, is noncompliant with meds prefers he be moved to extended-care facility. Patient missed an ENT appointment for progressive hearing loss. Sister states he is easily overwhelmed by medical terms and has low threshold irritability given hearing loss. She states she can no longer coordinate care for Hilary given herown health issues i.e. leukemia, tendinitis. Appreciate psych consult patient currently has capacity make medical decisions. Pending inpatient rehab/SNF Intractable right knee pain Right knee effusion, chondrocalcinosis found on x-ray Inability to ambulate, impaired ADLs, history of medication noncompliance Appreciate Ortho patient denied consent for right knee joint aspiration and culture/analysis. Given imaging, patient history of gout and nonacute presentation recommend to treat as an acute gout attack and plan for I&D if labs/symptom indicative of septic joint. -Will start oral prednisone 40 mg daily then titrate down over a week -Hold NSAIDs, colchicine, indomethacin per renal function. Creatinine 1.80 today from 1.30 after single dose colchicine. ? Continue pain control with home med dose of morphine sulfate 15 mg ER twice daily and Tylenol p.o. every 6 as needed. Frequent falls Generalized weakness ? Consult PT/OT Thrombocytopenia Platelet count 103 today; August, July Possibly immune etiology. We will continue to monitor. Chronic conditions Chronic pain?patient takes pregabalin and morphine at home, will likely be difficult to manage acute pain at this time Thrombocytopenia?current platelet count 104, monitor HTN?monitor, resume home meds when confirmed Gout?patient takes allopurinol and colchicine at home, will resume when confirmed Tobacco dependence?tobacco cessation, nicotine patch as needed DVT PPx-SCDs, will defer pharmacological therapy due to thrombocytopenia Diet order-regular CODE STATUS-DNR CCA without intubation as discussed with patient Documented By: Ron Diaz MD, RES 10/29/22 105 8 Signed By: <Electronically signed by RES Ron Diaz> 10/29/22 1112 <Electronically signed by Pedro Luis Frye MD> 10/29/22 [facility] Work Phone: 1(802) 873-255309-16-2023 Consult note Author William booker [facility] October 29, 2022 9:37am Note Date/Time October 29, 2022 9:28am [facility] [address] [place] [address] Psychiatry Consult Note Signed Patient: Hilary Maldonado MR#: [id number] : 1945 Acct:[id number] Age/Sex: 77 / M Adm Date: 3 Loc: Room: [address] [place] [address] Type : ADM IN Attending Dr: Pedro Luis Frye MD Copies to: MD Tyree Leo, Jr, DO Pedro Luis Frye MD~ HPI Consult Date: 10/29/22 Requesting Physician: Pedro Luis Frye MD Primary Care Provider: Damian Ambrosio DO Consult Narrative HPI: Mr. Maldonado is a 77 year old male with a PMH of gout, arthritis, tobacco dependence, HTN, depression, and headaches who presents for a psychiatric consult for capacity evaluation. Reportedly, he presents to the emergency room due to right knee pain, inability to walk, slid to the floor and laid on the floor for 6 hours today.? Patient initially left AMA from the emergency room earlier today, came back with the same knee pain and inability to walk.? Patientseen and evaluated in the emergency room, resting on the cart, yells out in painwith every movement.? Reports he has had this right knee pain that started abouta month ago, has gotten worse ever since.? He states its sometimes he walks witha walker.? He reports he did not fall today he just slid to the floor, laid there because he could not walk.? He reports that he is a smoker, he denies alcohol use.? At the time of the interview, he presented as cooperative but has slow response on exam. He is difficult of hearing which limits his ability to communicate. He was able to express the circumstances that lead to his hospitalization and talked about the diagnosis of gout. He said he has been falling and has difficulty ambulating. He said medical team are giving him meds and recommended OT/PT. He lives by himself and has poor social support. ? Reports he does not know what medications he takes, does not remember what surgeries he has had in the past. The patient denies current suicidal or homicidal ideation, and verbalized the intent to notify staff if there are such thoughts. The patient denies recent suicidal or self injurious behaviors.?Records show a diagnosis of MDD and is currently on Trintellix and Remeron. He denied any request to leave AMA at this time. When discussed about consequences of refusing treatment, he said he can have repeated falls and flare up of gout. I asked him if he would consider SNF and said he is not sure about this because he does not understand the benefit. He said he would be open to having another discussion with the medical provider. Reviewing prior records, it seems that patient has not made rational choices in the past. It might be related to his personality. Case discussed with Dr. Fitzgerald indicated that patient has been giving mixed answers and occasionally not communication or responding with medical team. Medical team is planning to have discussion with the patient again about SNF option. On mental status examination, he presents as a casually dressed man, cooperative, intermittent eye contact, with apparent trouble expressing himself when addressed and asked to respond (likely precipitated by diff hearing). He is alert and oriented x 3. Speech is spontaneous. The mood is ``ok.?? Affect is reactive and mood congruent. No psychomotor retardation or agitation. The thought process is goal-directed. The content shows no evidence of psychotic or suicidal content. He is unable to tell me the month and identifies the year correctly. He is able to identify his location [facility] Medical History Chronic pain COPD (chronic obstructive pulmonary disease) Gout HTN (hypertension) Hyperlipemia Family History Family/Other Pancreatic cancer Father Myocardial infarction Social History Smoking Status: Unknown if ever smoked Substance Use Type: Unknown Meds Medications and Allergies Allergies No Known Allergies Allergy (Verified 10/26/22 21:04) Home Medications atorvastatin 10 mg tablet 10 mg PO HS 03/02/18 [History Confirmed 10/27/22] celecoxib 200 mg capsule 200 mg PO DAILY 03/02/18 [History Confirmed 10/27/22] vortioxetine 10 mg tablet 10 mg PO DAILY 03/02/18 [History Confirmed 10/27/22] aspirin 81 mg tablet,delayed release (Aspir-) 81 mg PO DAILY 08/08/19 [History Confirmed 10/26/22] famotidine 40 mg tablet 40 mg PO DAILY 08/08/19 [History Confirmed 10/27/22] morphine 15 mg tablet,extended release (MS Contin) 15 mg PO BID PRN Pain 08/08/19 [History Confirmed 10/27/22] pregabalin 100 mg capsule (Lyrica) 100 mg PO TID 08/08/19 [History Confirmed 10/27/22] docusate sodium 100 mg capsule (DOK) 100 mg PO BID PRN Constipation 30 days #60 caps 08/09/19 [Rx Confirmed 10/27/22] allopurinol 300 mg tablet 300 mg PO DAILY 09/10/21 [History Confirmed 10/27/22] colchicine (gout) 0.6 mg tablet 1.2 mg PO DAILY 09/10/21 [History Confirmed 10/27/22] mirtazapine 15 mg tablet 15 mg PO HS 10/27/22 [History Confirmed 10/27/22] verapamil 40 mg tablet 40 mg PO DAILY 10/27/22 [History Confirmed 10/27/22] Exam Physical Exam Vital Signs: Temp Pulse Resp BP Pulse Ox O2 Del Method 97.5 F L 48 L 18 114/69 97 Room Air 10/28/22 19:40 10/29/22 04:36 10/29/22 04:36 10/29/22 04:36 10/29/22 04:36 10/29/22 04:36 Results Labs 10/29/22 06:09 10/29/22 06:09 Psychiatry Labs: 10/27/22 10/27/22 10/27/22 06:23 06:23 08:58 RBC 3.91 Hgb 13.2 Hct 39.1 MCV 99.9 MCH 33.8 MCHC 33.8 RDW 14.8 Plt Count 103 L MPV 9.7 Sodium 135 L Potassium 3.8 Chloride 103 Carbon Dioxide 27.3 Anion Gap TNP BUN 20 Creatinine 1.30 Calcium 8.4 L Total Bilirubin AST ALT Alkaline Phosphatase Total Protein Albumin 10/28/22 10/28/22 10/29/22 08:00 08:00 06:09 RBC 3.60 L 3.97 Hgb 12.3 L 13.5 Hct 36.4 L 40.2 MCV 101.0 101.4 H MCH 34.2 34.0 MCHC 33.9 33.5 RDW 15.4 H 15.2 H Plt Count 92 L 113 L MPV 10.0 10.3 H Sodium 138 Potassium 3.6 Chloride 106 Carbon Dioxide 29.7 Anion Gap 5.9 L BUN 32 H Creatinine 1.80 H D Calcium 8.0 L Total Bilirubin 0.7 AST 46 H ALT 20 Alkaline Phosphatase 66 Total Protein 5.8 L D Albumin 2.9 L D 10/29/22 06:09 RBC Hgb Hct MCV MCH MCHC RDW Plt Count MPV Sodium 136 Potassium 4.3 Chloride 103 Carbon Dioxide 24.7 Anion Gap 12.6 BUN 44 H Creatinine 1.74 H Calcium 8.8 Total Bilirubin AST ALT Alkaline Phosphatase Total Protein Albumin Assessment/Plan (1) Effusion of right knee: Code(s): M25.461 - Effusion, right knee Status: Acute (2) Frequent falls: Code(s): R29.6 - Repeated falls Status: Acute (3) Generalized weakness: Code(s): R53.1 - Weakness Status: Acute (4) Chronic pain: Code(s): G89.29 - Other chronic pain Status: Acute (5) Thrombocytopenia: Code(s): D69.6 - Thrombocytopenia, unspecified Status: Acute (6) HTN (hypertension): Code(s): I10 - Essential (primary) hypertension Status: Acute (7) Gout: Code(s): M10.9 - Gout, unspecified Status: Acute (8) Inability to ambulate due to knee: Code(s): R26.2 - Difficulty in walking, not elsewhere classified Status: Acute (9) Impaired mobility and ADLs: Code(s): Z74.09 - Other reduced mobility; Z78.9 - Other specified health status Status: Acute (10) Encounter for assessment of healthcare decision-making capacity: Plan: Patient was able to elaborate on the circumstances that led to his hospitalization. He denied any request to leave AMA at this time. He understands that he needs further treatment here. When discussed about consequences of refusing treatment, he said he can have repeated falls and flare up of gout. I asked him if he would consider SNF and said he is not sure about this because he does not understand the benefit and the details of SNF. He said he would be open to having another discussion with the medical provider. Reviewing prior records, it seems that patient has not made rational choices in the past. It might be related to his personality. Case discussed with Dr. Fitzgerald indicated that patient has been giving mixed answers and occasionally not communication or responding with medical team. Medical team is planning to have discussion with the patient again about SNF option. Patient currently has capacity to make medical decisions. Medical team to continue ongoing discussions about treatment options and aftercare plans such asSNF. Code(s): Z02.79 - Encounter for issue of other medical certificate Status: Acute Documented By: William Williamson MD 3 924 Signed By: <Electronically signed by William Williamson MD> 10/29/2237 [facility] Work Phone: 1(420) 404-271909-16-2023 Progress note Author Pedro Luis Frye [facility] October 29, 2022 8:32am Note Date/Time October 28, 2022 8:20am [facility] [address] [place] [address] Hospitalist Progress Note Signed with Addenda Patient: Hilary Maldonado MR#: [id number] : 1945 Acct:[id number] Age/Sex: 77 / M Adm Date: 3 Loc: Room: [address] [place] [address] Type: ADM IN Attending Dr: Pedro Luis Frye MD Copies to: ~ ADDENDUM1 Patient was personally seen by me on the day of encounter, reviewed his history and performed hill elements of exam and formulated the plan of care and confirmedthe resident/interns note below. Addendum Documented By: Pedro Luis Frye MD 10/29/22831 Addendum Signed By: <Electronically signed by Pedro Luis Frye MD> 10/29/22831 Date of Service: 10/28/2022 Subjective Subjective Narrative: A very hard on hearing Mr. Maldonado was examined seated upright comfortably in room chair. He able to verbalize today, alert and oriented however unable to providesubjective detail due to lack of medical knowledge and responsive only to voice amplification. Mr. Barrera' family was supposed to visit however they are sick with COVID and will be unable to. Called and spoke with Hilary' sister over thephone who stated she does not want him to live alone anymore. He has a history of not caring for himself and medication noncompliance. Would prefer him to be moved to inpatient PT upstairs then an extended care facility. She canceled theENT appointment however the ENT office stated it was an urgent appointment givenhis presentation. They intend to reschedule ENT appointment next week. Sister states she has leukemia and her own health problems and can no longer coordinatecare for Hilary. Exam Physical Exam Vital Signs: Temp Pulse Resp BP Pulse Ox O2 Del Method 97.1 F L 50 L 17 105/60 94 L Room Air 10/28/22 04:15 10/28/22 04:15 10/28/22 04:15 10/28/22 04:15 10/28/22 04:15 10/28/22 06:43 Narrative: CONST- Appears well -developed, frail, cachectic HEAD - Normocephalic and atraumatic. Single firm palpable left preauricular lymph node approximately 3 x 2 cm EENT-Sclera nonicteric, conjunctive are non-erythemic, dry oral mucosa, pharynx clear NECK-Supple, no cervical lymphadenopathy CARDIAC-normal rate, regular rhythm, S1 & S2. PULM-diminished without wheeze or rhonchi, RA, no accessory muscle use or cough noted ABD - Soft. Bowel sounds are normal. No distention. No tenderness EXTREM- generalized swelling to R knee, tender to palpation to right knee, no redness or warmth noted SKIN- W/D good turgor, chronic discoloration to bilateral feet ankles MS- MAEX4 spontaneously with equal with equal strength-weakness and pain to RLE NEURO- A&Ox3 speech clear and tongue midline, equal facial symmetry, no focal motor deficits PSYCH-irritable mood on questioning Objective Lab Results 10/27/22 06:23 10/27/22 08:58 Meds Allergies and Active Meds Allergies No Known Allergies Allergy (Verified 10/26/22 21:04) Active Meds: Active Medications Generic Name Dose Route Start Last Admin Trade Name Freq PRN Reason Stop Dose Admin Acetaminophen 1,000 mg 10/27/22 10:00 10/27/22 21:45 Acetaminophen 500 Mg Tablet PO 10/27/23 09:59 1,000 mg Q6H EDWIGE Administration Docusate Sodium 100 mg 10/27/22 09:00 10/27/22 21:45 Docusate 100 Mg Capsule PO 10/27/23 08:59 100 mg BID EDWIGE Administration Hydralazine HCl 10 mg 10/27/22 00:12 Hydralazine 20 Mg/Ml Vial IV-PUSH 10/27/23 00:11 Q4H PRN Hypertension Ketorolac Tromethamine 30 mg 10/27/22 10:00 10/27/22 21:56 Ketorolac Tromethamine 30 Mg/Ml Vial IV-PUSH 11/01/22 09:59 30 mg Q6H PRN Administration pain Morphine Sulfate 15 mg 10/27/22 21:00 10/27/22 21:45 Morphine Sulfate 12hr Er 15 Mg Tablet.Er PO 15 mg Q12HR EDWIGE Administration Naloxone HCl 0.1 mg 10/27/22 00:12 Naloxone Hcl 0.4 Mg/Ml Vial IV-PUSH 10/27/23 00:11 Q2M PRN Opioid Reversal Nicotine 1 each 10/27/22 00:23 Nicotine Patch 21 Mg/24hr 1 Each Patch.Td24 TRANSDERML 12/07/22 09:01 DAILY PRN Nicotine Cravings Pregabalin 100 mg 10/27/22 14:00 10/27/22 21:45 Pregabalin 100 Mg Capsule PO 04/25/23 13:59 100 mg TID EDWIGE Administration Sodium Chloride 10 ml 10/27/22 09:40 Sodium Chloride 0.9 % 10 Ml Syringe IV-PUSH 10/27/23 09:39 PRN PRN Flush A&P - Hospitalist Assessment/Plan (1) Effusion of right knee: (2) Frequent falls: (3) Generalized weakness: (4) Chronic pain: (5) Thrombocytopenia: (6) HTN (hypertension): (7) Gout: (8) Inability to ambulate due to knee: (9) Impaired mobility and ADLs: Plan Patient seated upright watching TV comfortably, unable to provide subjective detail due to poor medical knowledge competency. History of irritability at home and on admission. PDMP was reviewed. Patient home med morphine sulfate 15mg ER twice daily by pain management for moderate/severe gouty knee joint and pain. Spoke with Zora Tobin, Mr. Barrera's sister. States he lives alone and cannot carefor himself properly, is noncompliant with meds once he moved to extended-care facility. Patient missed an ENT appointment for progressive hearing loss. Sister states he is easily overwhelmed by medical terms and has low threshold irritability given hearing loss. She states she can no longer coordinate care for Hilary given her own health issues i.e. leukemia, tendinitis. We will consult psych for competency/decision-making capacity. Intractable right knee pain Right knee effusion, chondrocalcinosis found on x-ray Inability to ambulate, impaired ADLs, history of medication noncompliance Appreciate Ortho patient denied consent for right knee joint aspiration and culture/analysis. Given imaging, patient history of gout and nonacute presentation recommend to treat as an acute gout attack and plan for I&D if labs/symptom indicative of septic joint. -Will start oral prednisone 40 mg daily then titrate down over a week -Hold NSAIDs, colchicine, indomethacin per renal function. Creatinine 1.80 today from 1.30 after single dose colchicine. ? Continue pain control with home med dose of morphine sulfate 15 mg ER twice daily and Tylenol p.o. every 6 as needed. Acute kidney injury Discontinue NSAIDs and colchicine. Follow up renal function in am labs. Frequent falls Generalized weakness ? Consult PT/OT Thrombocytopenia Platelet count 103 today; August, July Possibly immune etiology. We will continue to monitor. DVT PPx-SCDs, will defer pharmacological therapy due to thrombocytopenia Diet order-regular CODE STATUS-DNR CCA without intubation Documented By: Ron Diaz MD, RES 10/28/22 081 4 Signed By: <Electronically signed by RES Ron Diaz> 10/28/22 1515 <Electronically signed by Pedro Luis Frye MD> 10/29/22 08[facility] Work Phone: 1(854) 275-343609-15-2023 History and physical note Author Hunter Silvestre [facility] October 28, 2022 8:09pm Note Date/Time October 26, 2022 11:49pm [facility] [address] [place] [address] Hospitalist H&P Signed Patient: Hilary Maldonado MR#: [id number] : 1945 Acct:[id number] Age/Sex: 77 / M Adm Date: 3 Loc: Room: [address] [place] [address] Type: ADM IN Attending Dr: Pedro Luis Frye MD Copies to: MD Tryee Montes Jr, DO MD Siddhartha Mcleod, [employer]~ HPI DATE OF EXAMINATION: 10/26/22 CHIEF COMPLAINT: right knee pain and unable to walk HISTORY OF PRESENT ILLNESS: Mr. Maldonado is a 77-year-old male with a PMH of gout, arthritis, tobacco dependence,HTN, depression, headaches the presents to the emergency room x2 today for rightknee pain, inability to walk, slid to the floor and laid on the floor for 6 hours today. Patient initially left AMA from the emergency room earlier today, came back with the same knee pain and inability to walk. Patient seen and evaluated in the emergency room, resting on the cart, yells out in pain with every movement. Reports he has had this right knee pain that started about a month ago, has gotten worse ever since. He states its sometimes he walks with awalker. He reports he did not fall today he just slid to the floor, laid there because he could not walk. He reports that he is a smoker, he denies alcohol use. Does not want to give very much information, not very conversant. Reportshe does not know what medications he takes, does not remember what surgeries he has had in the past. He does not think that he has had a fever or chills, denies chest pain, shortness of breath. He denies diarrhea. He denies that he has had trauma to that right leg. He does take morphine at home and pregabalin,he could not tell me why he takes these. EKG on his first trip to the emergency room shows normal sinus rhythm with a first-degree block, no ST changes noted. Thrombocytopenia noted, platelet [id number] on the CBC?this is elevated from his previous hospitalization. Pro time 4.9, INR 1.2. CMP with a creatinine of 1.39, glucose 102, total bilirubin 1.4, AST 42, ALT 17. Total creatinine kinase 586, troponin 36.6, CRP 8.3. UA with clear, yellow urine with 300 protein, 1+ occult blood, negative for infection. Urine tox screen positive for opiates, patient does take morphine at home. CT of the head shows atrophy, small vessel ischemic changes, no acute intracranial trauma. CT of the C-spine shows postoperative and degenerative changes, no acute bony injury. Chest x-ray shows no acute findings, thoracolumbar scolioticcurvature and endplate spurring, degenerative change at the shoulders greater onthe left, old right clavicle and left rib fractures are present. Knee x-ray 2 view shows osteopenia and worsening degenerative changes, large knee effusion, no definite acute bony injury, chondrocalcinosis of the menisci is suggested, tricompartmental marginal spurring, osteochondral loose bodies along the medial aspect of the joint. Patient was medicated with 1 L bolus of saline, Dilaudid and Zofran. He will be admitted to the [facility] telemetry floor under the care of the hospitalist team for further evaluation and treatment. Review of Systems Review of Systems Review of systems: A 10 point review of systems was obtained, negative unless noted in the HPI or below. [facility] Medical History (Updated 10/27/22 @ 00:25 by Siddhartha Chino APRN) Chronic pain COPD (chronic obstructive pulmonary disease) Gout HTN (hypertension) Hyperlipemia Family History Family/Other Pancreatic cancer Father Myocardial infarction Social History Smoking Status: Current every day smoker Tobacco Type: cigarettes Substance Use Type: None Meds Medications and Allergies Allergies No Known Allergies Allergy (Verified 10/26/22 21:04) Home Medications atorvastatin 10 mg tablet 10 mg PO HS 03/02/18 [History Confirmed 10/26/22] celecoxib 200 mg capsule 200 mg PO DAILY 03/02/18 [History Confirmed 10/26/22] hydrochlorothiazide 12.5 mg capsule 12.5 mg PO DAILY 03/02/18 [History Confirmed 10/26/22] vortioxetine 10 mg tablet 10 mg PO DAILY 03/02/18 [History Confirmed 10/26/22] aspirin 81 mg tablet,delayed release (Aspir-) 81 mg PO DAILY 08/08/19 [History Confirmed 10/26/22] famotidine 40 mg tablet 40 mg PO DAILY 08/08/19 [History Confirmed 10/26/22] morphine 15 mg tablet,extended release 15 mg PO BID 08/08/19 [History Confirmed 10/26/22] pregabalin 100 mg capsule (Lyrica) 100 mg PO TID 08/08/19 [History Confirmed 10/26/22] docusate sodium 100 mg capsule (DOK) 100 mg PO BID PRN Constipation 30 days #60 caps 08/09/19 [Rx Confirmed 10/26/22] allopurinol 300 mg tablet 300 mg PO DAILY 09/10/21 [History Confirmed 10/26/22] colchicine (gout) 0.6 mg tablet 0.6 mg PO DAILY 09/10/21 [History Confirmed 10/26/22] diphenhydramine HCl 50 mg capsule (Banophen) 50 mg PO HS PRN Insomnia 10/26/22 [History Confirmed 10/26/22] Exam Physical Exam Vital Signs: Temp Pulse Resp BP Pulse Ox O2 Del Method 98.7 F 82 16 195/81 H 97 Room Air 10/26/22 21:10 10/26/22 21:10 10/26/22 21:10 10/26/22 21:10 10/26/22 21:10 10/26/22 21:10 Narrative: CONST- Appears well -developed and well nourished. Frail, cachectic HEAD - Normocephalic and atraumatic EENT-Sclera nonicteric, conjunctive are non-erythemic, dry oral mucosa, pharynx clear NECK-Supple, no cervical lymphadenopathy CARDIAC-normal rate, regular rhythm, S1 & S2. PULM-diminished without wheeze or rhonchi, RA, no accessory muscle use or cough noted ABD - Soft. Bowel sounds are normal. No distention. No tenderness EXTREM- generalized swelling to R knee, tender to palpation to right knee, no redness or warmth noted SKIN- W/D good turgor, chronic discoloration to bilateral feet ankles MS- MAEX4 spontaneously with equal with equal strength-weakness and pain to RLE NEURO- A&Ox3 speech clear and tongue midline, equal facial symmetry, no focal motor deficits PSYCH- Irritable Results Lab Results Labs: Laboratory Last Values C-Reactive Prot, Quant 8.3 mg/dL (0.0-0.5) H 10/26/22 15:02 Assessment & Plan Assessment/Plan (1) Effusion of right knee: (2) Frequent falls: (3) Generalized weakness: (4) Chronic pain: (5) Thrombocytopenia: (6) HTN (hypertension): (7) Gout: (8) Inability to ambulate due to knee: (9) Impaired mobility and ADLs: Plan Intractable right knee pain Right knee effusion, chondrocalcinosis found on x-ray Inability to ambulate, impaired ADLs ? Consult orthopedic surgery ? Pain control Frequent falls Generalized weakness ? Consult PT/OT Chronic conditions Chronic pain?patient takes pregabalin and morphine at home, will likely be difficult to manage acute pain at this time Thrombocytopenia?current platelet count 104, monitor HTN?monitor, resume home meds when confirmed Gout?patient takes allopurinol and colchicine at home, will resume when confirmed Tobacco dependence?tobacco cessation, nicotine patch as needed DVT PPx-SCDs, will defer pharmacological therapy due to thrombocytopenia Diet order-regular CODE STATUS-DNR CCA without intubation as discussed with patient IP vs OBS Justification Based on differential dx, clinical care plan, and risk of adverse events, if untreated, in my clinical judgement this patient requires an acute care setting as: INPATIENT because of an expectation of an over 2 midnight stay. Estimated length of stay (# of days): 3 Documented By: Siddhartha Chino APRN 10/26/22 2349 Signed By: <Electronically signed by PHYLLIS Chino> 10/27/22 0026 <Electronically signed by Hunter Silvestre MD> 10/28/222008 [facility] Work Phone: [phone] Consult note Author Ayaz Cruz [facility] October 28, 2022 12:43pm Note Date/Time October 28, 2022 12:29pm [facility] [address] [place] [address] Physiatry (Rehab) Consult Note Signed Patient: Hilary Maldonado MR#: [id number] : 1945 Acct:[id number] Age/Sex: 77 / M Adm Date: 3 Loc: Room: [address] [place] [address] Type: ADM IN Attending Dr: Pedro Luis Frye MD Copies to: MD Tyree Zuñiga Jr, DO Pedro Luis Frye MD~ HPI Consult Date: 10/28/22 Requesting Physician: Pedro Luis Frye MD Primary Care Provider: Damian Ambrosio DO Consult Narrative Reason for consult: Evaluation for inpatient rehab HPI: Mr. Maldonado is a 77 year old male with PMH gout, arthritis, tobacco dependence, HTN,depression, chronic pain who presented to the emergency department with intractable right knee pain. Was found to have a significant effusion of the right knee as well as DJD and chondrocalcinosis. Was treated with colchicine as well as steroids. Has had improvement in his pain. The patient lives alone in a 1 story home with several steps to enter. Notes that laundry is in the basement with a full flight down. Was mostly independent before but did have to crawl up/down stairs. PM&R was consulted for evaluation for inpatient rehab prior to return home. This patient was seen and evaluated at bedside. Sitting comfortably in recliner.He notes that his pain has improved and he is able to move his knee better. He denies any other major issues today. Rehab was discussed at length with the patient. Therapy updates: Bed mobility: Min-Max Transfers: Min-Max Ambulation: 2' WW min A x2 Review of Systems Review of Systems All other systems reviewed & are negative unless noted below or in HPI [facility] Medical History Chronic pain COPD (chronic obstructive pulmonary disease) Gout HTN (hypertension) Hyperlipemia Family History Family/Other Pancreatic cancer Father Myocardial infarction Social History Smoking Status: Unknown if ever smoked Substance Use Type: Unknown Meds Medications and Allergies Allergies No Known Allergies Allergy (Verified 10/26/22 21:04) Home Medications atorvastatin 10 mg tablet 10 mg PO HS 03/02/18 [History Confirmed 10/27/22] celecoxib 200 mg capsule 200 mg PO DAILY 03/02/18 [History Confirmed 10/27/22] vortioxetine 10 mg tablet 10 mg PO DAILY 03/02/18 [History Confirmed 10/27/22] aspirin 81 mg tablet,delayed release (Aspir-) 81 mg PO DAILY 08/08/19 [History Confirmed 10/26/22] famotidine 40 mg tablet 40 mg PO DAILY 08/08/19 [History Confirmed 10/27/22] morphine 15 mg tablet,extended release (MS Contin) 15 mg PO BID PRN Pain 08/08/19 [History Confirmed 10/27/22] pregabalin 100 mg capsule (Lyrica) 100 mg PO TID 08/08/19 [History Confirmed 10/27/22] docusate sodium 100 mg capsule (DOK) 100 mg PO BID PRN Constipation 30 days #60 caps 08/09/19 [Rx Confirmed 10/27/22] allopurinol 300 mg tablet 300 mg PO DAILY 09/10/21 [History Confirmed 10/27/22] colchicine (gout) 0.6 mg tablet 1.2 mg PO DAILY 09/10/21 [History Confirmed 10/27/22] mirtazapine 15 mg tablet 15 mg PO HS 10/27/22 [History Confirmed 10/27/22] verapamil 40 mg tablet 40 mg PO DAILY 10/27/22 [History Confirmed 10/27/22] Exam Physical Exam Vital Signs: Temp Pulse Resp BP Pulse Ox O2 Del Method 97.1 F L 50 L 17 105/60 94 L Room Air 10/28/22 04:10/28/22 04:10/28/22 04:10/28/22 04:10/28/22 04:10/28/22 06:43 Narrative: General: Awake, A&O x 3, pleasant, cooperative, well nourished. Resting comfortably in recliner HENT: NC, AT Eyes: No scleral icterus Neck: Supple Cardio: RRR, no murmurs, rubs or gallops Respiratory: CTAB, no wheezes rhonchi or rales. No evidence of respiratory distress GI: Soft, nontender, nondistended, bowel sounds normal in all 4 quadrants Neuro: CN II-XII intact. Strength 5/5 right upper and lower extremities. Strength 5/5 left upper and lower extremities. Sensation intact bilateral lowerextremities. Extremities: No edema, erythema, cyanosis. Noted effusion of right knee Psych: Affect, speech and movements normal. Mood congruent Results Labs Labs: Laboratory Results - last 24 hr 10/27/22 10/27/22 10/28/22 06:23 08:58 08:00 Corrected WBC 7.4 Uncorrected WBC Count 7.4 RBC 3.60 L Hgb 12.3 L Hct 36.4 L MCV 101.0 MCH 34.2 MCHC 33.9 RDW 15.4 H Plt Count 92 L MPV 10.0 Neut % (Auto) 64.6 Lymph % (Auto) 24.1 [place] % (Auto) 7.5 Eos % (Auto) 3.3 Baso % (Auto) 0.5 Nucleat RBC Rel Count 0.1 Neut # (Auto) 4.8 Lymph # (Auto) 1.8 [place] # (Auto) 0.6 Eos # (Auto) 0.2 Baso # (Auto) 0.0 PHA Creatinine Clear Sodium Potassium Chloride Carbon Dioxide Anion Gap BUN Creatinine Est GFR (CKD-EPI) Glucose Uric Acid 4.6 Calcium Magnesium Total Bilirubin AST ALT Alkaline Phosphatase Total Protein Albumin Globulin Albumin/Globulin Ratio Add-On Test Request Cancelled 10/28/22 08:00 Corrected WBC Uncorrected WBC Count RBC Hgb Hct MCV MCH MCHC RDW Plt Count MPV Neut % (Auto) Lymph % (Auto) [place] % (Auto) Eos % (Auto) Baso % (Auto) Nucleat RBC Rel Count Neut # (Auto) Lymph # (Auto) [place] # (Auto) Eos # (Auto) Baso # (Auto) PHA Creatinine Clear 40.59 Sodium 138 Potassium 3.6 Chloride 106 Carbon Dioxide 29.7 Anion Gap 5.9 L BUN 32 H Creatinine 1.80 H D Est GFR (CKD-EPI) 38.528 Glucose 87 Uric Acid Calcium 8.0 L Magnesium 2.2 Total Bilirubin 0.7 AST 46 H ALT 20 Alkaline Phosphatase 66 Total Protein 5.8 L D Albumin 2.9 L D Globulin 2.9 Albumin/Globulin Ratio 1.0 Add-On Test Request Additional Results Results Comment: I reviewed clinical lab tests, radiology reports and obtained and summated medical records and have ordered follow up lab tests and imaging studies as needed for rehabilitation care. Assessment/Plan (1) Impaired mobility and ADLs: Code(s): Z74.09 - Other reduced mobility; Z78.9 - Other specified health status Status: Acute (2) HTN (hypertension): Code(s): I10 - Essential (primary) hypertension Status: Acute (3) Gout: Code(s): M10.9 - Gout, unspecified Status: Acute (4) Chronic pain: Code(s): G89.29 - Other chronic pain Status: Acute (5) Effusion of right knee: Code(s): M25.461 - Effusion, right knee Status: Acute Plan This is a 77-year-old male with past medical history of gout and chronic pain who presented to [facility] with intractable right knee pain, likely due to an acute gouty attack. Treated with colchicine and steroidswith improvement in pain. Patient does have functional deficits below baseline,but he does not have an appropriate diagnosis for inpatient rehab. Given this, we would recommend a detention facility for continued therapy needs prior to discharge home. As patient's pain improves, he may be able to tolerate therapy well and could possibly be a discharge home with home health if deemed appropriate by primary team. Plan: I completed a substantive portion of this encounter, the medical decision makingportion of this note in its entirety, including Allied health note review, nursing note review, network consultant note review, discussion with nursing and case management, and more than 50% of my time was spent on counseling and coordination of care, time spent 65 minutes Patient was personally seen by me, Dr. Cruz, on the day of encounter, reviewed the history and the relevant portions of the chart, including current orders, allied health and network consultant notes, labs/imaging and performed hill elements of exam and I formulated the plan of care and facilitated the medical decision making. Documented By: Ayaz Cruz MD [id number] Signed By: <Electronically signed by Ayaz Cruz MD> 10/28/22 1243 [facility] Work Phone: 1([phone]) 652-885409-15-2023 Progress note Author Victor M Kumar [facility] October 28, 2022 11:57am Note Date/Time October 28, 2022 11:58am [facility] [address] [place] [address] Orthopedic Progress Note Signed Patient: Hilary Maldonado MR#: [id number] : 1945 Acct:[id number] Age/Sex: 77 / M Adm Date: 3 Loc: Room: [address] [place] [address] Type: ADM IN Attending Dr: Pedro Luis Frye MD Copies to: ~ Date of Service: 10/28/2022 Subjective Subjective Interval History: Patient seen evaluated bedside today. He is much more conversive and pleasant today. He tells me his knee is feeling much better today. He is sitting up in a chair at bedside and he feels that he can move the knee much better today. Exam Physical Exam Vital Signs: Temp Pulse Resp BP Pulse Ox O2 Del Method 97.1 F L 50 L 17 105/60 94 L Room Air 10/28/22 04:10/28/22 04:10/28/22 04:10/28/22 04:10/28/22 04:10/28/22 06:43 Narrative: Patient seen and evaluated on regular nursing floor. He is sitting up in bedside chair. He was pleasant and conversive today. Right knee is evaluated. He still has a moderate to large effusion but not as swollen as yesterday. He can get the knee to full extension with flexion past 90 degrees. He can perform a straight leg raise. He does still have some tenderness to the knee but it is not warm or red. He has no abnormal calf tenderness and moves the ankle up and down without difficulty. Foot is warm well perfused Objective Labs Labs: Laboratory Results - last 24 hr 10/27/22 10/27/22 10/28/22 06:23 08:58 08:00 Corrected WBC 7.4 Uncorrected WBC Count 7.4 RBC 3.60 L Hgb 12.3 L Hct 36.4 L MCV 101.0 MCH 34.2 MCHC 33.9 RDW 15.4 H Plt Count 92 L MPV 10.0 Neut % (Auto) 64.6 Lymph % (Auto) 24.1 [place] % (Auto) 7.5 Eos % (Auto) 3.3 Baso % (Auto) 0.5 Nucleat RBC Rel Count 0.1 Neut # (Auto) 4.8 Lymph # (Auto) 1.8 [place] # (Auto) 0.6 Eos # (Auto) 0.2 Baso # (Auto) 0.0 PHA Creatinine Clear Sodium Potassium Chloride Carbon Dioxide Anion Gap BUN Creatinine Est GFR (CKD-EPI) Glucose Uric Acid 4.6 Calcium Magnesium Total Bilirubin AST ALT Alkaline Phosphatase Total Protein Albumin Globulin Albumin/Globulin Ratio Add-On Test Request Cancelled 10/28/22 08:00 Corrected WBC Uncorrected WBC Count RBC Hgb Hct MCV MCH MCHC RDW Plt Count MPV Neut % (Auto) Lymph % (Auto) [place] % (Auto) Eos % (Auto) Baso % (Auto) Nucleat RBC Rel Count Neut # (Auto) Lymph # (Auto) [place] # (Auto) Eos # (Auto) Baso # (Auto) PHA Creatinine Clear 40.59 Sodium 138 Potassium 3.6 Chloride 106 Carbon Dioxide 29.7 Anion Gap 5.9 L BUN 32 H Creatinine 1.80 H D Est GFR (CKD-EPI) 38.528 Glucose 87 Uric Acid Calcium 8.0 L Magnesium 2.2 Total Bilirubin 0.7 AST 46 H ALT 20 Alkaline Phosphatase 66 Total Protein 5.8 L D Albumin 2.9 L D Globulin 2.9 Albumin/Globulin Ratio 1.0 Add-On Test Request Assessment / Plan Assessment and plan (1) Effusion of right knee: Code(s): M25.461 - Effusion, right knee Status: Acute (2) Frequent falls: Code(s): R29.6 - Repeated falls Status: Acute (3) Generalized weakness: Code(s): R53.1 - Weakness Status: Acute (4) Chronic pain: Code(s): G89.29 - Other chronic pain Status: Acute (5) Thrombocytopenia: Code(s): D69.6 - Thrombocytopenia, unspecified Status: Acute (6) HTN (hypertension): Code(s): I10 - Essential (primary) hypertension Status: Acute (7) Gout: Code(s): M10.9 - Gout, unspecified Status: Acute (8) Inability to ambulate due to knee: Code(s): R26.2 - Difficulty in walking, not elsewhere classified Status: Acute (9) Impaired mobility and ADLs: Code(s): Z74.09 - Other reduced mobility; Z78.9 - Other specified health status Status: Acute Ankush Barrera is now on hospital day 2 with right knee pain and effusion. He has been getting anti-inflammatories as well as a treatment for acute gout. He has had improvement overnight. I have discussed with him a possible aspiration today to1) obtain fluid for analysis and 2) decrease his effusion. Patient does not want an aspiration as he remembers them from prior and they are painful. I explained to the patient that with his improvement we could continue ongoing treatment for gout but if he has any worsening of his pain then there would be concern for infection and aspiration would be indicated. I would recommend a trial of steroids to see how he responds. Continue colchicine. He continues improvement then no further intervention is necessary. I would reinforce use ofallopurinol as prescribed because the patient does tell me that he quit taking his gout medications. Documented By: Victor M Kumar DO 10/28/22 1154 Signed By: <Electronically signed by Victor M Kumar DO> 10/28/22 1157 [facility] Work Phone: [phone] 160-137009-14-2023 Consult note Author Victor M Kumar [facility] October 27, 2022 3:11pm Note Date/Time October 27, 2022 5:47am [facility] [address] [place] [address] Orthopedic Consult Note Signed Patient: Hilary Maldonado MR#: [id number] : 1945 Acct:[id number] Age/Sex: 77 / M Adm Date: 3 Loc: Room: [address] [place] [address] Type: ADM IN Attending Dr: Pedro Luis Frye MD Copies to: Tyree Ambrosio Jr, DO Victor M Kumar, DO Pedro Luis Frye MD~ History of Present Illness HPI Consult date: 10/27/2022 Requesting provider: Hunter Silvestre MD History of present illness: Hilary is a 77-year-old male with past medical history including gout, chronic pain on chronic opioid medications, who presented to the emergency department with right knee pain and inability to ambulate. At his initial visit he ended up signing out AMA but later returned to the emergency department due to ongoingpain and inability to ambulate. Pain has been going on for over a week now according to the chart. Family is not present for further questioning and patient does not participate in conversation [facility] Medical History (Updated 10/27/22 @ 00:25 by Siddhartha Chino APRN) Chronic pain COPD (chronic obstructive pulmonary disease) Gout HTN (hypertension) Hyperlipemia Family History Family/Other Pancreatic cancer Father Myocardial infarction Social History Smoking Status: Unknown if ever smoked Substance Use Type: Unknown Allergies & Medications Medications and Allergies Allergies No Known Allergies Allergy (Verified 10/26/22 21:04) Home Medications atorvastatin 10 mg tablet 10 mg PO HS 03/02/18 [History Confirmed 10/26/22] celecoxib 200 mg capsule 200 mg PO DAILY 03/02/18 [History Confirmed 10/26/22] hydrochlorothiazide 12.5 mg capsule 12.5 mg PO DAILY 03/02/18 [History Confirmed 10/26/22] vortioxetine 10 mg tablet 10 mg PO DAILY 03/02/18 [History Confirmed 10/26/22] aspirin 81 mg tablet,delayed release (Aspir-) 81 mg PO DAILY 08/08/19 [History Confirmed 10/26/22] famotidine 40 mg tablet 40 mg PO DAILY 08/08/19 [History Confirmed 10/26/22] morphine 15 mg tablet,extended release (MS Contin) 15 mg PO BID 08/08/19 [History Confirmed 10/27/22] pregabalin 100 mg capsule (Lyrica) 100 mg PO TID 08/08/19 [History Confirmed 10/26/22] docusate sodium 100 mg capsule (DOK) 100 mg PO BID PRN Constipation 30 days #60 caps 08/09/19 [Rx Confirmed 10/26/22] allopurinol 300 mg tablet 300 mg PO DAILY 09/10/21 [History Confirmed 10/26/22] colchicine (gout) 0.6 mg tablet 0.6 mg PO DAILY 09/10/21 [History Confirmed 10/26/22] diphenhydramine HCl 50 mg capsule (Banophen) 50 mg PO HS PRN Insomnia 10/26/22 [History Confirmed 10/26/22] Exam Physical Exam Vital Signs: Temp Pulse Resp BP Pulse Ox O2 Del Method 98.7 F 76 16 119/68 99 Room Air 10/27/22 05:23 10/27/22 05:23 10/27/22 05:23 10/27/22 05:23 10/27/22 05:10/27/22 05:23 Narrative: Patient seen and evaluated on regular nursing floor. He is sitting up at bedside with nurses aide present. The knee is flexed to 90 degrees while sitting up. He is alert but does not answer questions or participate in conversation during exam. I am able to visualize the knee which shows no redness but there is swelling. He has tenderness which I cannot fully assess due to patient cooperation. Cannot provide other examination to the knee unfortunately. Results Lab Results 10/27/22 06:23 10/27/22 08:58 Labs: Laboratory Results - Last 48 hrs. 10/26/22 15:02: C-Reactive Prot, Quant 8.3 H 10/26/22 15:02: ESR 47 H All other labs are normal. Imaging & Diagnostic Results Imaging/Diagnostics: X-rays of the right knee are reviewed showing significant degenerative changes, varus alignment. Effusion. There is chondrocalcinosis present. Kellgren-Louis grade 4. No acute osseous abnormalities are identified Assessment/Plan (1) Effusion of right knee: Code(s): M25.461 - Effusion, right knee (2) Frequent falls: Code(s): R29.6 - Repeated falls (3) Generalized weakness: Code(s): R53.1 - Weakness (4) Chronic pain: Code(s): G89.29 - Other chronic pain (5) Thrombocytopenia: Code(s): D69.6 - Thrombocytopenia, unspecified (6) HTN (hypertension): Code(s): I10 - Essential (primary) hypertension (7) Gout: Code(s): M10.9 - Gout, unspecified (8) Inability to ambulate due to knee: Code(s): R26.2 - Difficulty in walking, not elsewhere classified (9) Impaired mobility and ADLs: Code(s): Z74.09 - Other reduced mobility; Z78.9 - Other specified health status Plan Hilary presents with right knee DJD, pain and effusion. At this juncture we havediscussed the findings and diagnosis as well as personally reviewed appropriate imaging and performed interpretation of related testing and examination with thepatient in today. Prior medical notes from the hospitalist service as well as EDand history have been reviewed. He does have an elevated ESR/CRP but is afebrile without a white count. At this time I would recommend aspiration of the rightknee to evaluate for septic versus gouty knee. Unfortunately patient does not cooperate with history or physical. With his history of gout I would aggressively treat this as gout with steroids IV, colchicine and indomethacin per primary if these things are possible. Patient does not converse. I am unable to consent for an aspiration. If he has improvement with treatment for gout then I would consider this gout. If he has worsening after treatment for gout then we will need family to discuss further treatment including aspiration possible surgical intervention. I will happily follow along peripherally. Primary could consider checking uric acid levels although this does not changed treatment Thank you for the consultation. The patient has been involved in our cooperative treatment plan and agrees to move forward with treatment at this time. Documented By: Victor M Kumar DO 10/27/22 0541 Signed By: <Electronically signed by Victor M Kumar DO> 10/27/22 9978 [facility] Work Phone: [phone] Progress note Author Pedro Luis Frye [facility] October 27, 2022 12:29pm Note Date/Time October 27, 2022 11:05am [facility] [address] [place] [address] Hospitalist Progress Note Signed with Addenda Patient: Hilary Maldonado MR#: [id number] : 1945 Acct:[id number] Age/Sex: 77 / M Adm Date: 3 Loc: 3T Room: [address] [place] [address] Type: ADM IN Attending Dr: Pedro Luis Frye MD Copies to: ~ ADDENDUM1 Patient was personally seen by me on the day of encounter, reviewed his history and performed hill elements of exam and formulated the plan of care and confirmedthe resident/interns note below. Patient history of chronic pain on opiates and follows with pain management in [place]. Also has history of gout presented to ER with severe right knee pain. Noted to have significant swelling with clinical suspicion of acute gout flare. Appreciate orthopedic consultation. So far no signs of infection and will deferdecision regarding aspiration of the joint to the orthopedic service. We will avoid excessive opiates since he does appear drowsy and a poor historian. Started on Toradol, scheduled dose of acetaminophen and colchicine. Consider steroid if no improvement. Patient also has history of chronic thrombocytopeniaand recommend outpatient follow-up. Addendum Documented By: Pedro Luis Frye MD 10/27/22 122 Addendum Signed By: <Electronically signed by Pedro Luis Frye MD> 10/27/229 Date of Service: 10/27/2022 Subjective Subjective Narrative: Mr. Maldonado was examined bedside resting comfortably. He was unable to provide subjective detail due to somnolence, he was falling asleep during our encounter however aroused on voice amplification. Patient was seen in the ED twice as he initially left AMA. He may also be hard on hearing. While awake patient was unable to verbalize symptoms preferring to nod or utilize EOM as communication. UDS performed in ED was positive for opiates. Thrombocytopenia was noted. Exam Physical Exam Vital Signs: Temp Pulse Resp BP Pulse Ox O2 Del Method 98.6 F 68 20 131/71 97 Room Air 10/27/22 07:57 10/27/22 07:57 10/27/22 07:57 10/27/22 07:57 10/27/22 07:57 10/27/22 07:57 Narrative: CONST- Appears well -developed and well nourished. Frail, cachectic HEAD - Normocephalic and atraumatic EENT-Sclera nonicteric, conjunctive are non-erythemic, dry oral mucosa, pharynx clear NECK-Supple, no cervical lymphadenopathy CARDIAC-normal rate, regular rhythm, S1 & S2. PULM-diminished without wheeze or rhonchi, RA, no accessory muscle use or cough noted ABD - Soft. Bowel sounds are normal. No distention. No tenderness EXTREM- generalized swelling to R knee, tender to palpation to right knee, no redness or warmth noted SKIN- W/D good turgor, chronic discoloration to bilateral feet ankles MS- MAEX4 spontaneously with equal with equal strength-weakness and pain to RLE NEURO- A&Ox3 speech clear and tongue midline, equal facial symmetry, no focal motor deficits PSYCH-somnolent Objective Lab Results 10/27/22 06:23 10/27/22 08:58 Meds Allergies and Active Meds Allergies No Known Allergies Allergy (Verified 10/26/22 21:04) Active Meds: Active Medications Generic Name Dose Route Start Last Admin Trade Name Freq PRN Reason Stop Dose Admin Acetaminophen 1,000 mg 10/27/22 10:00 10/27/22 10:38 Acetaminophen 500 Mg Tablet PO 10/27/23 09:59 1,000 mg Q6H EDWIGE Administration Docusate Sodium 100 mg 10/27/22 09:00 10/27/22 10:41 Docusate 100 Mg Capsule PO 10/27/23 08:59 100 mg BID EDWIGE Administration Hydralazine HCl 10 mg 10/27/22 00:12 Hydralazine 20 Mg/Ml Vial IV-PUSH 10/27/23 00:11 Q4H PRN Hypertension Hydromorphone HCl 1 mg 10/27/22 00:12 10/27/22 08:01 Hydromorphone 0.5 Mg/0.5 Ml Syringe IV-PUSH 1 mg Q3H PRN Administration Pain Scale 8 - 10 Lactated Ringer's 1,000 mls @ 75 mls/hr 10/27/22 00:15 10/27/22 01:16 Lactated Ringers IV 10/28/22 02:54 75 mls/hr .[id number] EDWIGE Administration Magnesium Sulfate 2 gm in 50 mls @ 25 mls/hr 10/27/22 10:00 10/27/22 10:41 Magnesium Sulf 2gm-*Swfi* IV 10/27/22 11:59 25 mls/hr ONCE ONE Administration Ketorolac Tromethamine 30 mg 10/27/22 10:00 10/27/22 10:39 Ketorolac Tromethamine 30 Mg/Ml Vial IV-PUSH 11/01/22 09:59 30 mg Q6H PRN Administration pain Naloxone HCl 0.1 mg 10/27/22 00:12 Naloxone Hcl 0.4 Mg/Ml Vial IV-PUSH 10/27/23 00:11 Q2M PRN Opioid Reversal Nicotine 1 each 10/27/22 00:23 Nicotine Patch 21 Mg/24hr 1 Each Patch.Td24 TRANSDERML 12/07/22 09:01 DAILY PRN Nicotine Cravings Oxycodone HCl 5 mg 10/27/22 00:12 10/27/22 01:15 Oxycodone Ir 5 Mg Tablet PO 5 mg Q6HR PRN Administration Pain Scale 4 - 7 Sodium Chloride 10 ml 10/27/22 09:40 Sodium Chloride 0.9 % 10 Ml Syringe IV-PUSH 10/27/23 09:39 PRN PRN Flush A&P - Hospitalist Assessment/Plan (1) Effusion of right knee: (2) Frequent falls: (3) Generalized weakness: (4) Chronic pain: (5) Thrombocytopenia: (6) HTN (hypertension): (7) Gout: (8) Inability to ambulate due to knee: (9) Impaired mobility and ADLs: Plan Patient was somnolent, unable to provide subjective detail. Otherwise comfortable, pleasant. History of irritability on admission. UDS in ED positive for opiates. Patient left AMA and returned shortly after with improvedmood. Intractable right knee pain Right knee effusion, chondrocalcinosis found on x-ray Inability to ambulate, impaired ADLs Appreciate Ortho consultaton. Recommend to treat as an acute gout attack and plan for I&D if labs indicative of septic joint -We will begin colchicine 1.2 mg then 0.6 mg after 1 hour to total 1.8 mg today then hold for 3 days and continue gout prophylaxis outpatient ? Continue pain control will titrate down as needed Frequent falls Generalized weakness ? Consult PT/OT Thrombocytopenia Platelet count 103 today; August, July Possibly immune etiology. We will continue to monitor. Chronic conditions Chronic pain?patient takes pregabalin and morphine at home, will likely be difficult to manage acute pain at this time Thrombocytopenia?current platelet count 104, monitor HTN?monitor, resume home meds when confirmed Gout?patient takes allopurinol and colchicine at home, will resume when confirmed Tobacco dependence?tobacco cessation, nicotine patch as needed DVT PPx-SCDs, will defer pharmacological therapy due to thrombocytopenia Diet order-regular CODE STATUS-DNR CCA without intubation as discussed with patient Documented By: Ron Diaz MD, RES 10/27/22 104 2 Signed By: <Electronically signed by RES Ron Diaz> 10/27/22 1105 <Electronically signed by Pedro Luis Frye MD> 10/27/22 12[facility] Work Phone: 1(259) 184-621007-29-2022 Progress note Author Dennis Camargo [facility] September 10, 2021 10:47am Note Date/Time September 10, 2021 10:3 1am [facility] [address] [place] [address] Hospitalist Progress Note Signed Patient: Hilary Maldonado MR#: [id number] : 1945 Acct:[id number] Age/Sex: 76 / M Adm Date: 2 Loc: Room: [address] [place] [address] Type: ADM INOo Attending Dr: Dennis Camargo DO Copies to: ~ Date of Service: 09/10/2021 Subjective Subjective Narrative: The patient presented emergency room with a headache. In the ER he was treated with 15 mg of oxycodone immediate release. He was then admitted for monitoring of troponins. He has a well-known vascular history and follows with cardiology elsewhere chronically. He then somehow developed some type of acute delirium early in the morning. Haldol did not seem to be effective. In the director of early childhood education hours he had to be restrained. He was noncooperative with nursing staffand seem to be a danger to himself and was at a risk of falling and hurting himself. At the end we did 2 mg of Versed IM. There is a massive nationwide shortage of Ativan at this time so Versed seem like the next best option. With this he seems to have calmed down a fair amount. In the room right now he is still in bilateral wrist restraints. He denies having any headache anymore. He denies any chest pain at all. No anginal type discomfort. No tightness or pressure in his chest. No shortness of breath. Nocough. He is very hard of hearing and I have to yell in his ears for him to be able to answer many and he still does not do that with complete and accurate responses. He says that he began getting headaches about a month ago. Before that it seemslike he did not have headaches. When I ask him what he uses to treat his headaches he does not really have a specific response about using Tylenol or Motrin. He is on chronic pain medicines that I can see going back for several months with regular pickups on his OARRS report. Exam Physical Exam Vital Signs: Temp Pulse Resp BP Pulse Ox O2 Del Method 97.5 F L 70 20 164/63 H 95 Room Air 09/10/21 08:00 09/10/21 08:00 09/10/21 08:00 09/10/21 08:00 09/10/21 08:00 09/10/21 08:00 Narrative: Neuro: Seated in bed. Looks calm. Restrained with both wrists. Is now cooperating with nursing staff. Did refuse to eat breakfast earlier but then did take his routine morning medications. Cardiac: Regular rate and rhythm to auscultation. No rubs or gallops auscultation. Pulmonary: Clear to auscultation anteriorly. No wheezing. No rhonchi. Respirations are soft and easy. GI: Abdomen entirely soft and nontender throughout. No rigidity or guarding to palpitation. Extremities: No swelling or knots in the calves bilaterally. Has chronic changes to his lower extremities to suggest severe peripheral arterial disease. Legs do not cool or acutely ischemic at this time. Objective Lab Results CBC & Chem 7: 09/10/21 04:33 09/10/21 04:33 Microbiology Results Microbiology 09/10/21 01:00 Nasopharyngeal SARS-CoV-2, Influenza & RSV (PCR) - Final 09/09/21 23:55 Nasal SARS Antigen (LFIA) - Final Meds Allergies and Active Meds Allergies No Known Allergies Allergy (Verified 09/09/21 19:39) Active Meds: Active Medications Generic Name Dose Route Start Last Admin Trade Name Stephanie PRN Reason Stop Dose Admin Allopurinol 300 mg 09/10/21 09:00 09/10/21 08:53 Allopurinol 300 Mg Tablet PO 09/10/22 08:59 300 mg DAILY EDWIGE Administration Aspirin 81 mg 09/10/21 09:00 09/10/21 08:57 Aspirin 81 Mg Tab.Chew PO 09/10/22 08:59 81 mg DAILY EDWIGE Administration Atorvastatin Calcium 10 mg 09/10/21 22:00 Atorvastatin 10 Mg Tablet PO 09/10/22 21:59 HS EDWIGE Celecoxib 200 mg 09/10/21 09:00 09/10/21 08:54 Celecoxib 200 Mg Capsule PO 09/10/22 08:59 200 mg DAILY EDWIGE Administration Colchicine 0.6 mg 09/10/21 09:00 09/10/21 08:54 Colchicine 0.6 Mg Tablet PO 09/10/22 08:59 0.6 mg DAILY EDWIGE Administration Docusate Sodium 100 mg 09/10/21 03:44 Docusate 100 Mg Capsule PO 09/10/22 03:43 BID PRN Constipation Enoxaparin Sodium 40 mg 09/10/21 10:00 09/10/21 10:18 Enoxaparin 40 Mg/0.4 Ml Syringe SUBCUT 09/10/22 09:59 40 mg DAILY@10 EDWIGE Administration Famotidine 40 mg 09/10/21 09:00 09/10/21 08:54 Famotidine 20 Mg Tablet PO 09/10/22 08:59 40 mg DAILY EDWIGE Administration Potassium Chloride 40 meq/ 520 mls @ 130 mls/hr 09/10/21 08:30 09/10/21 10:18 Sodium Chloride IV 09/10/21 12:29 130 mls/hr ONCE ONE Administration Morphine Sulfate 15 mg 09/10/21 09:00 09/10/21 08:53 Morphine Sulfate 12hr Er 15 Mg Tablet.Er PO 15 mg BID EDWIGE Administration Nitroglycerin 0.4 mg 09/10/21 03:37 Nitroglycerin 0.4 Mg Tab.Subl SUBLINGUAL 09/10/22 03:36 Q5M PRN Chest Pain Ondansetron HCl 4 mg 09/10/21 03:37 Ondansetron 4 Mg/2 Ml Vial IV-PUSH 09/10/22 03:36 Q8H PRN Nausea And Vomiting Sodium Chloride 0 ml 09/09/21 19:39 Sodium Chloride 0.9 % 10 Ml Syringe IV-PUSH 09/09/22 19:38 PRN PRN Flush Vortioxetine 10 mg 09/10/21 09:00 09/10/21 08:54 Vortioxetine 10 Mg Tablet PO 09/10/22 08:59 10 mg DAILY EDWIGE Administration A&P - Hospitalist Assessment/Plan (1) Headache: (2) Elevated troponin: (3) Acute delirium: (4) ASHD (arteriosclerotic heart disease): (5) Thrombocytopenia: (6) Hypomagnesemia: (7) Hypokalemia: Plan assessment and plan: *Severe acute Headache. Development of headaches seems to be a relatively acutedevelopment. -Consult placed to neurology. -Because patient calm down a lot after administration of Versed this may be the best opportunity to get MRI of the brain. *Elevated trops: 60, 83. Next troponin pending. -admitted to tele -pt is entirely chest pain free and his ECG is NSR with no concerning changes -cont his home dose ASA and statin -ECHO is requested -Most likely a type II reaction in the setting of physiologic stress with known atherosclerotic disease without acute change. -If the echo comes back normal and enzymes do not rise any further accelerating pattern then pt can get a stress test as an outpatient *Macrocytosis with generalized weakness -TSH 1.68 -Free t4 0.90 -B12 339 -folate 11.6 -Also checking phosphatidyl ethanol. *Hypomagnesemia, hypokalemia. -We will replete both electrolytes intravenously. *Chronic medical issues: -Gout -HTN -Chronic back pain -HLP cont his home meds *DVT ppx with Lovenox Documented By: Dennis Camargo DO 1029 Signed By: <Electronically signed by Dennis Camargo DO> 09/10/21 1047 [facility] Work Phone: [phone]) [phone] Consult note Author Anil Chun [facility] September 10, 2021 4:41pm Note Date/Time September 10, 2021 8:45 am [facility] [address] [place], [place] [id number] Neurology Consult Note Signed Patient: Hilary Maldonado MR#: [id number] : 1945 Acct:[id number] Age/Sex: 76 / M Adm Date: 2 Loc: 4 Room: [address] [place] [address] Type: DIS INOo Attending Dr: Dennis Camargo DO Copies to: DO Tyree Peñaloza Jr, DO Kaitlyn Rizzo, DO, RES Kristopher L Lindbloom, DO~ HPI Consult Date: 09/10/21 Soldering Machine Operator: Myla Wakefield DO, RES Reason for consult: headache Consult Narrative HPI: Pt is a 76 yo male with PMHx of COPD, HTN, HLD, chronic pain, gout, who presented to the ED with family who brought him in for headache not relieved by tylenol or advil. He described it as frontal. In the ER, head CT was negative, and he was given a shot of morphine for pain. In addition, he was found to have elevated troponins (42, repeat 60), RBBB on EKG which was unchanged, elevated alk phos, slightly elevated AST. Pt denied any cardiac symptoms. Of note, he is an everyday smoker. Takes ASA 81 and atorvastatin 10mg at home. Of note, hx obtained from ER and hospitalist note. Pt is very poor historian, and no family is present at bedside. Today, pt is markedly confused, yelling out, impulsively trying to break out of restraints. Continually states something hurts whether that is his back, arms, legs, or head but this is variable and changes with yelling episodes. 1:1 sitterpresent who states he has been yelling out for sister Cami. Sitter denies any seizure like activity but notes marked confusion. When questioning pt, he knows his name but does not know where or why he is in the hospital, also cannot statethe year. Very short attention span. Can get him to calm down for about 30 seconds with talking but he quickly loses focus and becomes disoriented again. Unsure of what baseline cognitive function is - will return when sister or otherfamily is present. Review of Systems Review of Systems Unobtainable due to mental status PMFSH Vaccinated for COVID-19?: Yes Medical History (Updated 09/10/21 @ 10:38 by Dennis Camargo DO) Chronic pain COPD (chronic obstructive pulmonary disease) HTN (hypertension) Hyperlipemia Family History (Updated 08/08/19 @ 21:22 by Poonam Alba RN) Family/Other Pancreatic cancer Father Myocardial infarct Social History Smoking Status: Current every day smoker Tobacco Type: cigarettes Substance Use Type: None Meds Medications and Allergies Allergies No Known Allergies Allergy (Verified 09/09/21 19:39) Home Medications atorvastatin 10 mg tablet 10 mg PO HS 03/02/18 [History Confirmed 09/10/21] celecoxib 200 mg capsule 200 mg PO DAILY 03/02/18 [History Confirmed 09/10/21] hydrochlorothiazide 12.5 mg capsule 12.5 mg PO DAILY 03/02/18 [History Confirmed 09/10/21] vortioxetine 10 mg tablet 10 mg PO DAILY 03/02/18 [History Confirmed 09/10/21] aspirin 81 mg tablet,delayed release (Aspir-) 81 mg PO DAILY 08/08/19 [History Confirmed 08/08/19] famotidine 40 mg tablet 40 mg PO DAILY 08/08/19 [History Confirmed 09/10/21] morphine 15 mg tablet,extended release 15 mg PO BID 08/08/19 [History Confirmed 09/10/21] pregabalin 100 mg capsule (Lyrica) 100 mg PO TID 08/08/19 [History Confirmed 08/08/19] docusate sodium 100 mg capsule (DOK) 100 mg PO BID PRN Constipation 30 days #60 caps 08/09/19 [Rx Confirmed 09/10/21] allopurinol 300 mg tablet 300 mg PO DAILY 09/10/21 [History Confirmed 09/10/21] colchicine 0.6 mg tablet 0.6 mg PO DAILY 09/10/21 [History Confirmed 09/10/21] Exam Physical Exam Vital Signs: Temp Pulse Resp BP Pulse Ox O2 Del Method 97.5 F L 70 20 164/63 H 95 Room Air 09/10/21 08:00 09/10/21 08:00 09/10/21 08:00 09/10/21 08:00 09/10/21 08:00 09/10/21 08:00 Narrative: GENERAL EXAM: * Constitutional - Patient is acutely confused * Patient is alert and oriented x1. * Apical is regular rate and rhythm. No murmur was appreciated. No edema noted. Pulses are normal * Lung sounds are clear to auscultation * Abdomen is soft with normal bowel sounds * Pt cannot localize head pain to a specific area at this time NEURO EXAM: * Attention span/concentration impaired * Speech is clear * Cranial nerve II. Vision is intact. JACIEL * Cranial nerve III, IV and . Extraocular muscles are intact. No nystagmus is appreciated * Cranial nerve V and VII. No facial asymmetry is appreciated * Cranial nerve VIII hearing is intact * Cranial nerve IX and X speech is normal. Palate elevates symmetrically * Cranial nerve XI head turn side to side full range of motion. Shoulder shrug is equal bilaterally * Cranial nerve XII tongue is midline full range of motion MOTOR EXAM: * Strength is 5/5 in all extremities * Muscle tone and bulk are normal * Gait not examined SENSORY EXAM: * Unable to assess CEREBELLAR EXAM: * Aysgvq-jw-hqih and alternating movements unable to assess * Uasi-hz-zufh and alternating movements unable to assess REFLEX EXAM: * 2/4 throughout Results Laboratory Findings CBC and BMP: 09/10/21 04:33 09/10/21 04:33 Lab Results: Hemoglobin A1c 5.5 % (4.3-5.6) 09/10/21 04:33 Diagnostic Findings Imaging/Impressions: ITS Impressions Head CT 09/09/21 22:09 IMPRESSION: No acute intracranial findings. Impression dictated by: Andrei Green M.D.09/10/2021 7:47 AM Dictation Location: [place] [address] Chest X-Ray 09/09/21 22:58 IMPRESSION: No acute process. Impression dictated by: Andrei Green M.D.09/10/2021 8:04 AM Dictation Location: [place] [address] Assessment/Plan (1) Headache: Code(s): R51.9 - Headache, unspecified Status: Acute Plan Pt is a 76 yo male with PMHx of COPD, HTN, HLD, chronic pain, gout, who presented to the ED with family who brought him in for headache not relieved by tylenol or advil. He described it as frontal. In the ER, head CT was negative, and he was given a shot of morphine for pain. In addition, he was found to have elevated troponins (42, repeat 60), RBBB on EKG which was unchanged, elevated alk phos, slightly elevated AST. Pt denied any cardiac symptoms. Of note, he is an everyday smoker. Takes ASA 81 and atorvastatin 10mg at home. Of note, hx obtained from ER and hospitalist note. Pt is very poor historian, and no family is present at bedside. Hard to evaluate whether this is an acute change or baseline behavior. Seems that he has been evaluated here before for confusion inthe past but to what extent is unknown, does seem like this episode is worse than prior episode noted in 2019. Will need more information from the family to further develop plan for this pt as history of the noted headache is unknown at this time. -CT head negative -MRI/MRA pending -Ammonia pending -Echo pending -Carotid dopper 07/14/21 - mild to moderate plaque formation in R extracranial carotid artery, moderate stenosis of 50-69% in BL R ICAs which was stable from 2020 and prior imaging studies -Uptrending troponins - 42, 60, 83 -Lipids - TC 100, LDL 59, HDL 26 -A1C 5.5 -B12 339 -Folate 11.6 -TSH 1.68, free T4 0.9 Attestation Statement I agree with the above. Patient seen and examined. 76-year-old man with history of cervical surgery and lumbar surgery and suffers from chronic pain related to both. We were called for evaluation of headache. I suspect much of his headache is a cervicogenic headache. He is upset that he is in restraints and not very cooperative with providing history or the examination. I do not think he is having any dangerous cause of headache. A CT scan was generally unremarkable. He will not cooperate or stay still for an MRI. CRP and ESR are normal so not suggestive of any vasculitis. Reflexes do not suggestany concern for compressive cervical myelopathy. From a neurology standpoint, his headaches, should they be ongoing, can be addressed in the outpatient setting. He is already on a substantial amount of Lyrica. We could come up with some adjunct therapies to be started from the clinic. Documented By: Myla Wakefield DO, RES 09/10/21 0 837 Signed By: <Electronically signed by DO HOA Wakefield> 09/10/21 1031 <Electronically signed by Anil Chun DO> 09/10/21 164[facility] Work Phone: [phone] 145-868907-29-2022 History and physical note Author Andrea Major [facility] September 10, 2021 4:05am Note Date/Time September 10, 2021 3:50 am [facility] [address] [place] [address] Hospitalist H&P Signed Patient: Hilary Maldonado MR#: [id number] : 1945 Acct:[id number] Age/Sex: 76 / M Adm Date: 2 Loc: Room: [address] [place] [address] Type: ADM IN Attending Dr: Andrea Corea MD Copies to: Tyree Ambrosio Jr, DO Andrea Corea MD~ HPI DATE OF EXAMINATION: 09/10/21 CHIEF COMPLAINT: headache HISTORY OF PRESENT ILLNESS: Patient is a 76-year-old male with chronic back pain on morphine/hypertension/hyperlipidemia and gout who was brought into the hospital by his sister due to frontal headache that he usually gets and responds to Tylenol but did not respond to Tylenol or ibuprofen today, the patient was givena shot of morphine and had a CT scan of the head which was negative and the painsubsided after the morphine however troponin came back mildly elevated at 42 andthe second 1 was 67 for which the patient is staying here for observation, on myencounter the patient was in bed and seemed to be in distress denied having any chest pain/shortness of breath/lightheadedness, EKG was normal sinus rhythm withincomplete right bundle and no concerning changes Review of Systems Review of Systems All other systems reviewed & are negative unless noted below or in [facility] Vaccinated for COVID-19?: Yes Medical History (Updated 09/10/21 @ 03:06 by Tomas Bradley DO) Chronic pain COPD (chronic obstructive pulmonary disease) HTN (hypertension) Hyperlipemia Family History (Updated 08/08/19 @ 21:22 by Poonam Alba RN) Family/Other Pancreatic cancer Father Myocardial infarct Social History Smoking Status: Current every day smoker Tobacco Type: cigarettes Substance Use Type: None Meds Medications and Allergies Allergies No Known Allergies Allergy (Verified 09/09/21 19:39) Home Medications atorvastatin 10 mg tablet 10 mg PO HS 03/02/18 [History Confirmed 09/10/21] celecoxib 200 mg capsule 200 mg PO DAILY 03/02/18 [History Confirmed 09/10/21] hydrochlorothiazide 12.5 mg capsule 12.5 mg PO DAILY 03/02/18 [History Confirmed 09/10/21] vortioxetine 10 mg tablet 10 mg PO DAILY 03/02/18 [History Confirmed 09/10/21] aspirin 81 mg tablet,delayed release (Aspir-) 81 mg PO DAILY 08/08/19 [History Confirmed 08/08/19] famotidine 40 mg tablet 40 mg PO DAILY 08/08/19 [History Confirmed 09/10/21] morphine 15 mg tablet,extended release 15 mg PO BID 08/08/19 [History Confirmed 09/10/21] pregabalin 100 mg capsule (Lyrica) 100 mg PO TID 08/08/19 [History Confirmed 08/08/19] docusate sodium 100 mg capsule (DOK) 100 mg PO BID PRN Constipation 30 days #60 caps 08/09/19 [Rx Confirmed 09/10/21] allopurinol 300 mg tablet 300 mg PO DAILY 09/10/21 [History Confirmed 09/10/21] colchicine 0.6 mg tablet 0.6 mg PO DAILY 09/10/21 [History Confirmed 09/10/21] Exam Physical Exam Vital Signs: Temp Pulse Resp BP Pulse Ox O2 Del Method 97.0 F L 56 L 16 122/69 98 Room Air 09/10/21 02:18 09/10/21 02:18 09/10/21 02:18 09/10/21 02:18 09/10/21 02:18 09/10/21 02:18 Narrative: General: patient is alert and oriented HEENT: head atraumatic, normocephalic, moist mucous membranes, normal nose and ears, no throat lesions, normal conjunctiva Neck: supple no masses, no lymphadenopathy CVS: regular rate and rhythm, no murmurs or gallops Respiratory: clear to auscultation bilaterally, no wheezing or crackles, symmetric expansion GI: soft, nondistended, nontender, positive bowel sounds with no organomegaly Extremity: moves all extremities, no restrictions of movements, no calf tenderness, no edema Neuro: alert and oriented x3, normal speech, normal motor function Skin: dry, intact no rashes or lesions Results Lab Results Labs: Laboratory Last Values Corrected WBC 4.4 X10E3/uL (4.1-10.5) 09/09/21 23:14 Uncorrected WBC Count 4.4 x10E3/uL (4.5-11.0) L 09/09/21 23:14 RBC 3.73 x10E6/uL (3.90-5.60) L 09/09/21 23:14 Hgb 12.5 g/dL (13.0-17.0) L 09/09/21 23:14 Hct 38.2 % (38.8-50.0) L 09/09/21 23:14 MCV 102.5 fl (83.5-101) H 09/09/21 23:14 MCH 33.7 pg (27.5-35.2) 09/09/21 23:14 MCHC 32.9 g/dL (32.5-35.6) 09/09/21 23:14 RDW 15.3 % (12.0-14.8) H 09/09/21 23:14 Plt Count 62 x10E3/uL (150-450) L 09/09/21 23:14 MPV 11.6 fl (6.6-10.1) H 09/09/21 23:14 Neut % (Auto) 42.0 % (.) 09/09/21 23:14 Lymph % (Auto) 44.2 % (.) 09/09/21 23:14 [place] % (Auto) 7.3 % (.) 09/09/21 23:14 Eos % (Auto) 6.0 % (.) 09/09/21 23:14 Baso % (Auto) 0.5 % (.) 09/09/21 23:14 Neut # (Auto) 1.9 x10E3/uL (1.8-7.7) 09/09/21 23:14 Lymph # (Auto) 2.0 x10E3/uL (1.00-4.8) 09/09/21 23:14 [place] # (Auto) 0.3 x10E3/uL (0.0-0.8) 09/09/21 23:14 Eos # (Auto) 0.3 x10E3/uL (0.0-0.45) 09/09/21 23:14 Baso # (Auto) 0.0 x10E3/uL (0.0-0.2) 09/09/21 23:14 Nucleated RBC % (auto) 0.2 % (0-0.5) 09/09/21 23:14 PHA Creatinine Clear 57.98 09/09/21 23:14 Sodium 139 mmol/L (136-146) 09/09/21 23:14 Potassium 3.6 mmol/L (3.5-5.1) 09/09/21 23:14 Chloride 104 mmol/L (95-114) 09/09/21 23:14 Carbon Dioxide 26.7 mmol/L (22.0-30.0) 09/09/21 23:14 BUN 15 mg/dL (9-23) 09/09/21 23:14 Creatinine 1.28 mg/dL (0.64-1.27) H 09/09/21 23:14 Est GFR ( Amer) > 60 mL/Min 09/09/21 23:14 Est GFR (Non-Af Amer) 55 mL/Min 09/09/21 23:14 Glucose 93 mg/dL (70-100) 09/09/21 23:14 Calcium 8.8 mg/dL (8.2-10.2) 09/09/21 23:14 Total Bilirubin 0.8 mg/dL (0.3-1.2) 09/09/21 23:14 AST 75 U/L (10-42) H 09/09/21 23:14 ALT 37 U/L (10-60) 09/09/21 23:14 Alkaline Phosphatase 130 U/L (32-92) H 09/09/21 23:14 Troponin I High Sens 60 pg/mL (0-20) H* 09/10/21 01:11 B-Natriuretic Peptide 262.0 pg/mL (5-100) H 09/09/21 23:14 Total Protein 6.6 gm/dL (6.1-7.9) 09/09/21 23:14 Albumin 3.4 gm/dL (3.2-5.5) 09/09/21 23:14 Globulin 3.2 gm/dL 09/09/21 23:14 Albumin/Globulin Ratio 1.1 09/09/21 23:14 Urine Color Yellow (Yellow) 09/09/21 23:52 Urine Appearance Clear (Clear) 09/09/21 23:52 Urine pH 6.0 (5.0-9.0) 09/09/21 23:52 Ur Specific Clio 1.020 (1.001-1.030) 09/09/21 23:52 Urine Protein Trace mg/dL (Negative) H 09/09/21 23:52 Urine Glucose (UA) Normal mg/dL (Normal) 09/09/21 23:52 Urine Ketones Negative (Negative) 09/09/21 23:52 Urine Occult Blood Negative (Negative) 09/09/21 23:52 Urine Nitrite Negative (Negative) 09/09/21 23:52 Urine Bilirubin Negative (Negative) 09/09/21 23:52 Urine Urobilinogen Normal mg/dL (Normal) 09/09/21 23:52 Ur Leukocyte Esterase Negative (Negative) 09/09/21 23:52 Urine RBC 0-1 /HPF (0-4) 09/09/21 23:52 Urine WBC 1-2 /HPF (0-4) 09/09/21 23:52 Ur Squamous Epith Cells 1-2 /HPF (0-2) 09/09/21 23:52 Urine Bacteria None seen (None Seen) 09/09/21 23:52 Hyaline Casts 0-8 /LPF (0-8) 09/09/21 23:52 SARS Antigen (LFIA) Negative (Negative) 09/09/21 23:55 SARS-CoV-2 Rap RNA(RT-PCR) Negative (Negative) 09/10/21 01:00 Microbiology Results Micro: Microbiology - Results from entire visit 09/10/21 01:00 Nasopharyngeal SARS-CoV-2, Influenza & RSV (PCR) - Final 09/09/21 23:55 Nasal SARS Antigen (LFIA) - Final A&P - Hospitalist Assessment/Plan (1) Headache: (2) Elevated troponin: Plan assessment and plan: *Elevated trops: -admit to tele -not concerning, pt is chest pain free and his ECG is NSR with no concerning changes -cont his home dose ASA and statin -ECHO in am -Pt can get a stress test as an outpt *Macrocytosis with generalized weakness -will check TSH, Free t4, B12 an folate -PT/OT *Chronic medical issues: -Gout -HTN -Chronic back pain -HLP cont his home meds *DVT ppx with Lovenox Documented By: Andrea Corea MD 2 [phone] Signed By: <Electronically signed by Andrea Corea MD> 09/10/21 0[facility] Work Phone: [phone] 530-819006-01-2022 Evaluation note* Encounter Date Diagnosis Assessment Notes Treatment Notes Treatment Clinical Notes Jul, Carotid stenosis, bilateral (ICD-10 - I65.23) Reviewed today's carotid duplex studies. 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 He has 50 to 69% stenosis of the right ICA. Velocities are slightly elevated from last year making him more towards the 65% range. Unfortunately, this patient stopped taking his daily aspirin medication. We talked about this at length and discussed recommendation to start this aspirin again. Patient agrees to do so. He continues taking his statin medication. Unfortunately, he does continue to smoke. He understands his risks and is not ready to attempt smoking cessation at this time. We will continue to follow him along and see him again in 6 months with surveillance duplex studies instead of 1 year at this time. If he remains stable and asymptomatic and stays on good medical therapy, we will consider going back to annual studies. We reviewed signs and symptoms of carotid occlusive disease and one of the appropriate to return for further evaluation prior to next scheduled appointment. He verbalizes understanding, agrees with this plan, denies any questions. [facility] Other Consult note Author Anil Chun [facility] September 10, 2021 4:41pm Note Date/Time September 10, 2021 8:45 am [facility] [address] [place] [address] Neurology Consult Note Signed Patient: Hilary Maldonado MR#: [id number] : 1945 Acct:[id number] Age/Sex: 76 / M Adm Date: 2 Loc: 4 Room: [address] [place] [address] Type: DIS INOo Attending Dr: Dennis Camargo DO Copies to: DO Tyree Peñaloza Jr, DO Myla Wakefield DO, HOA Camargo DO~ HPI Consult Date: 09/10/21 Soldering Machine Operator: Myla Wakefield DO, RES Reason for consult: headache Consult Narrative HPI: Pt is a 76 yo male with PMHx of COPD, HTN, HLD, chronic pain, gout, who presented to the ED with family who brought him in for headache not relieved by tylenol or advil. He described it as frontal. In the ER, head CT was negative, and he was given a shot of morphine for pain. In addition, he was found to have elevated troponins (42, repeat 60), RBBB on EKG which was unchanged, elevated alk phos, slightly elevated AST. Pt denied any cardiac symptoms. Of note, he is an everyday smoker. Takes ASA 81 and atorvastatin 10mg at home. Of note, hx obtained from ER and hospitalist note. Pt is very poor historian, and no family is present at bedside. Today, pt is markedly confused, yelling out, impulsively trying to break out of restraints. Continually states something hurts whether that is his back, arms, legs, or head but this is variable and changes with yelling episodes. 1:1 sitterpresent who states he has been yelling out for sister Cami. Sitter denies any seizure like activity but notes marked confusion. When questioning pt, he knows his name but does not know where or why he is in the hospital, also cannot statethe year. Very short attention span. Can get him to calm down for about 30 seconds with talking but he quickly loses focus and becomes disoriented again. Unsure of what baseline cognitive function is - will return when sister or otherfamily is present. Review of Systems Review of Systems Unobtainable due to mental status PMFSH Vaccinated for COVID-19?: Yes Medical History (Updated 09/10/21 @ 10:38 by Dennis Camargo DO) Chronic pain COPD (chronic obstructive pulmonary disease) HTN (hypertension) Hyperlipemia Family History (Updated 08/08/19 @ 21:22 by Poonam Alba RN) Family/Other Pancreatic cancer Father Myocardial infarct Social History Smoking Status: Current every day smoker Tobacco Type: cigarettes Substance Use Type: None Meds Medications and Allergies Allergies No Known Allergies Allergy (Verified 09/09/21 19:39) Home Medications atorvastatin 10 mg tablet 10 mg PO HS 03/02/18 [History Confirmed 09/10/21] celecoxib 200 mg capsule 200 mg PO DAILY 03/02/18 [History Confirmed 09/10/21] hydrochlorothiazide 12.5 mg capsule 12.5 mg PO DAILY 03/02/18 [History Confirmed 09/10/21] vortioxetine 10 mg tablet 10 mg PO DAILY 03/02/18 [History Confirmed 09/10/21] aspirin 81 mg tablet,delayed release (Aspir-) 81 mg PO DAILY 08/08/19 [History Confirmed 08/08/19] famotidine 40 mg tablet 40 mg PO DAILY 08/08/19 [History Confirmed 09/10/21] morphine 15 mg tablet,extended release 15 mg PO BID 08/08/19 [History Confirmed 09/10/21] pregabalin 100 mg capsule (Lyrica) 100 mg PO TID 08/08/19 [History Confirmed 08/08/19] docusate sodium 100 mg capsule (DOK) 100 mg PO BID PRN Constipation 30 days #60 caps 08/09/19 [Rx Confirmed 09/10/21] allopurinol 300 mg tablet 300 mg PO DAILY 09/10/21 [History Confirmed 09/10/21] colchicine 0.6 mg tablet 0.6 mg PO DAILY 09/10/21 [History Confirmed 09/10/21] Exam Physical Exam Vital Signs: Temp Pulse Resp BP Pulse Ox O2 Del Method 97.5 F L 70 20 164/63 H 95 Room Air 09/10/21 08:00 09/10/21 08:00 09/10/21 08:00 09/10/21 08:00 09/10/21 08:00 09/10/21 08:00 Narrative: GENERAL EXAM: * Constitutional - Patient is acutely confused * Patient is alert and oriented x1. * Apical is regular rate and rhythm. No murmur was appreciated. No edema noted. Pulses are normal * Lung sounds are clear to auscultation * Abdomen is soft with normal bowel sounds * Pt cannot localize head pain to a specific area at this time NEURO EXAM: * Attention span/concentration impaired * Speech is clear * Cranial nerve II. Vision is intact. JACIEL * Cranial nerve III, IV and . Extraocular muscles are intact. No nystagmus is appreciated * Cranial nerve V and VII. No facial asymmetry is appreciated * Cranial nerve VIII hearing is intact * Cranial nerve IX and X speech is normal. Palate elevates symmetrically * Cranial nerve XI head turn side to side full range of motion. Shoulder shrug is equal bilaterally * Cranial nerve XII tongue is midline full range of motion MOTOR EXAM: * Strength is 5/5 in all extremities * Muscle tone and bulk are normal * Gait not examined SENSORY EXAM: * Unable to assess CEREBELLAR EXAM: * [id number] and alternating movements unable to assess * [id number]-[id number] and alternating movements unable to assess REFLEX EXAM: * 2/4 throughout Results Laboratory Findings CBC and BMP: 09/10/21 04:33 09/10/21 04:33 Lab Results: Hemoglobin A1c 5.5 % (4.3-5.6) 09/10/21 04:33 Diagnostic Findings Imaging/Impressions: ITS Impressions Head CT 09/09/21 22:09 IMPRESSION: No acute intracranial findings. Impression dictated by: Andrei Green M.D.09/10/2021 7:47 AM Dictation Location: [place] [address] Chest X-Ray 09/09/21 22:58 IMPRESSION: No acute process. Impression dictated by: Andrei Green M.D.09/10/2021 8:04 AM Dictation Location: [facility]- Assessment/Plan (1) Headache: Code(s): R51.9 - Headache, unspecified Status: Acute Plan Pt is a 76 yo male with PMHx of COPD, HTN, HLD, chronic pain, gout, who presented to the ED with family who brought him in for headache not relieved by tylenol or advil. He described it as frontal. In the ER, head CT was negative, and he was given a shot of morphine for pain. In addition, he was found to have elevated troponins (42, repeat 60), RBBB on EKG which was unchanged, elevated alk phos, slightly elevated AST. Pt denied any cardiac symptoms. Of note, he is an everyday smoker. Takes ASA 81 and atorvastatin 10mg at home. Of note, hx obtained from ER and hospitalist note. Pt is very poor historian, and no family is present at bedside. Hard to evaluate whether this is an acute change or baseline behavior. Seems that he has been evaluated here before for confusion inthe past but to what extent is unknown, does seem like this episode is worse than prior episode noted in 2020. Will need more information from the family to further develop plan for this pt as history of the noted headache is unknown at this time. -CT head negative -MRI/MRA pending -Ammonia pending -Echo pending -Carotid dopper 07/14/21 - mild to moderate plaque formation in R extracranial carotid artery, moderate stenosis of 50-69% in BL R ICAs which was stable from 2020 and prior imaging studies -Uptrending troponins - 42, 60, 83 -Lipids - TC 100, LDL 59, HDL 26 -A1C 5.5 -B12 339 -Folate 11.6 -TSH 1.68, free T4 0.9 Attestation Statement I agree with the above. Patient seen and examined. 76-year-old man with history of cervical surgery and lumbar surgery and suffers from chronic pain related to both. We were called for evaluation of headache. I suspect much of his headache is a cervicogenic headache. He is upset that he is in restraints and not very cooperative with providing history or the examination. I do not think he is having any dangerous cause of headache. A CT scan was generally unremarkable. He will not cooperate or stay still for an MRI. CRP and ESR are normal so not suggestive of any vasculitis. Reflexes do not suggestany concern for compressive cervical myelopathy. From a neurology standpoint, his headaches, should they be ongoing, can be addressed in the outpatient setting. He is already on a substantial amount of Lyrica. We could come up with some adjunct therapies to be started from the clinic. Documented By: Myla Wakefield DO, RES 09/10/21 0 837 Signed By: <Electronically signed by DO HOA Wakefield> 09/10/21 1031 <Electronically signed by Anil Chun DO> 09/10/21 164[facility] Work Phone: Consult note Author Victor M Kumar [facility] October 27, 2022 3:11pm Note Date/Time October 27, 2022 5:47am [facility] [address] [place] [address] Orthopedic Consult Note Signed Patient: Hilary Maldonado MR#: [id number] : 1945 Acct:[id number] Age/Sex: 77 / M Adm Date: 3 Loc: Room: [address] [place] [address] Type: ADM IN Attending Dr: Pedro Luis Frye MD Copies to: Tyree Ambrosio Jr, DO Victor M Kumar, DO Pedro Luis Frye MD~ History of Present Illness HPI Consult date: 10/27/2022 Requesting provider: Hunter Silvestre MD History of present illness: Hilary is a 77-year-old male with past medical history including gout, chronic pain on chronic opioid medications, who presented to the emergency department with right knee pain and inability to ambulate. At his initial visit he ended up signing out AMA but later returned to the emergency department due to ongoingpain and inability to ambulate. Pain has been going on for over a week now according to the chart. Family is not present for further questioning and patient does not participate in conversation [facility] Medical History (Updated 10/27/22 @ 00:25 by Siddhartha Chino APRN) Chronic pain COPD (chronic obstructive pulmonary disease) Gout HTN (hypertension) Hyperlipemia Family History Family/Other Pancreatic cancer Father Myocardial infarction Social History Smoking Status: Unknown if ever smoked Substance Use Type: Unknown Allergies & Medications Medications and Allergies Allergies No Known Allergies Allergy (Verified 10/26/22 21:04) Home Medications atorvastatin 10 mg tablet 10 mg PO HS 03/02/18 [History Confirmed 10/26/22] celecoxib 200 mg capsule 200 mg PO DAILY 03/02/18 [History Confirmed 10/26/22] hydrochlorothiazide 12.5 mg capsule 12.5 mg PO DAILY 03/02/18 [History Confirmed 10/26/22] vortioxetine 10 mg tablet 10 mg PO DAILY 03/02/18 [History Confirmed 10/26/22] aspirin 81 mg tablet,delayed release (Aspir-) 81 mg PO DAILY 08/08/19 [History Confirmed 10/26/22] famotidine 40 mg tablet 40 mg PO DAILY 08/08/19 [History Confirmed 10/26/22] morphine 15 mg tablet,extended release (MS Contin) 15 mg PO BID 08/08/19 [History Confirmed 10/27/22] pregabalin 100 mg capsule (Lyrica) 100 mg PO TID 08/08/19 [History Confirmed 10/26/22] docusate sodium 100 mg capsule (DOK) 100 mg PO BID PRN Constipation 30 days #60 caps 08/09/19 [Rx Confirmed 10/26/22] allopurinol 300 mg tablet 300 mg PO DAILY 09/10/21 [History Confirmed 10/26/22] colchicine (gout) 0.6 mg tablet 0.6 mg PO DAILY 09/10/21 [History Confirmed 10/26/22] diphenhydramine HCl 50 mg capsule (Banophen) 50 mg PO HS PRN Insomnia 10/26/22 [History Confirmed 10/26/22] Exam Physical Exam Vital Signs: Temp Pulse Resp BP Pulse Ox O2 Del Method 98.7 F 76 16 119/68 99 Room Air 10/27/22 05:23 10/27/22 05:23 10/27/22 05:23 10/27/22 05:23 10/27/22 05:23 10/27/22 05:23 Narrative: Patient seen and evaluated on regular nursing floor. He is sitting up at bedside with nurses aide present. The knee is flexed to 90 degrees while sitting up. He is alert but does not answer questions or participate in conversation during exam. I am able to visualize the knee which shows no redness but there is swelling. He has tenderness which I cannot fully assess due to patient cooperation. Cannot provide other examination to the knee unfortunately. Results Lab Results 10/27/22 06:23 10/27/22 08:58 Labs: Laboratory Results - Last 48 hrs. 10/26/22 15:02: C-Reactive Prot, Quant 8.3 H 10/26/22 15:02: ESR 47 H All other labs are normal. Imaging & Diagnostic Results Imaging/Diagnostics: X-rays of the right knee are reviewed showing significant degenerative changes, varus alignment. Effusion. There is chondrocalcinosis present. Kellgren-Louis grade 4. No acute osseous abnormalities are identified Assessment/Plan (1) Effusion of right knee: Code(s): M25.461 - Effusion, right knee (2) Frequent falls: Code(s): R29.6 - Repeated falls (3) Generalized weakness: Code(s): R53.1 - Weakness (4) Chronic pain: Code(s): G89.29 - Other chronic pain (5) Thrombocytopenia: Code(s): D69.6 - Thrombocytopenia, unspecified (6) HTN (hypertension): Code(s): I10 - Essential (primary) hypertension (7) Gout: Code(s): M10.9 - Gout, unspecified (8) Inability to ambulate due to knee: Code(s): R26.2 - Difficulty in walking, not elsewhere classified (9) Impaired mobility and ADLs: Code(s): Z74.09 - Other reduced mobility; Z78.9 - Other specified health status Plan Hilary presents with right knee DJD, pain and effusion. At this juncture we havediscussed the findings and diagnosis as well as personally reviewed appropriate imaging and performed interpretation of related testing and examination with thepatient in today. Prior medical notes from the hospitalist service as well as EDand history have been reviewed. He does have an elevated ESR/CRP but is afebrile without a white count. At this time I would recommend aspiration of the rightknee to evaluate for septic versus gouty knee. Unfortunately patient does not cooperate with history or physical. With his history of gout I would aggressively treat this as gout with steroids IV, colchicine and indomethacin per primary if these things are possible. Patient does not converse. I am unable to consent for an aspiration. If he has improvement with treatment for gout then I would consider this gout. If he has worsening after treatment for gout then we will need family to discuss further treatment including aspiration possible surgical intervention. I will happily follow along peripherally. Primary could consider checking uric acid levels although this does not changed treatment Thank you for the consultation. The patient has been involved in our cooperative treatment plan and agrees to move forward with treatment at this time. Documented By: Victor M Kumar DO 10/27/22 0541 Signed By: <Electronically signed by Victor M Kumar DO> 10/27/22 5[address] [facility] Work Phone: Consult note Author Ayaz Cruz [facility] October 28, 2022 12:43pm Note Date/Time October 28, 2022 12:29pm [facility] [address] [place] [address] Physiatry (Rehab) Consult Note Signed Patient: Hilary Maldonado MR#: [id number] : 1945 Acct:[id number] Age/Sex: 77 / M Adm Date: 3 Loc: Room: [address] [place] [address] Type: ADM IN Attending Dr: Pedro Luis Frye MD Copies to: MD Tyree Zuñiga Jr, DO Mazhar Rahman, MD~ HPI Consult Date: 10/28/22 Requesting Physician: Pedro Luis Frye MD Primary Care Provider: Damian Ambrosio DO Consult Narrative Reason for consult: Evaluation for inpatient rehab HPI: Mr. Maldonado is a 77 year old male with PMH gout, arthritis, tobacco dependence, HTN,depression, chronic pain who presented to the emergency department with intractable right knee pain. Was found to have a significant effusion of the right knee as well as DJD and chondrocalcinosis. Was treated with colchicine as well as steroids. Has had improvement in his pain. The patient lives alone in a 1 story home with several steps to enter. Notes that laundry is in the basement with a full flight down. Was mostly independent before but did have to crawl up/down stairs. PM&R was consulted for evaluation for inpatient rehab prior to return home. This patient was seen and evaluated at bedside. Sitting comfortably in recliner.He notes that his pain has improved and he is able to move his knee better. He denies any other major issues today. Rehab was discussed at length with the patient. Therapy updates: Bed mobility: Min-Max Transfers: Min-Max Ambulation: 2' WW min A x2 Review of Systems Review of Systems All other systems reviewed & are negative unless noted below or in HPI [facility] Medical History Chronic pain COPD (chronic obstructive pulmonary disease) Gout HTN (hypertension) Hyperlipemia Family History Family/Other Pancreatic cancer Father Myocardial infarction Social History Smoking Status: Unknown if ever smoked Substance Use Type: Unknown Meds Medications and Allergies Allergies No Known Allergies Allergy (Verified 10/26/22 21:04) Home Medications atorvastatin 10 mg tablet 10 mg PO HS 03/02/18 [History Confirmed 10/27/22] celecoxib 200 mg capsule 200 mg PO DAILY 03/02/18 [History Confirmed 10/27/22] vortioxetine 10 mg tablet 10 mg PO DAILY 03/02/18 [History Confirmed 10/27/22] aspirin 81 mg tablet,delayed release (Aspir-) 81 mg PO DAILY 08/08/19 [History Confirmed 10/26/22] famotidine 40 mg tablet 40 mg PO DAILY 08/08/19 [History Confirmed 10/27/22] morphine 15 mg tablet,extended release (MS Contin) 15 mg PO BID PRN Pain 08/08/19 [History Confirmed 10/27/22] pregabalin 100 mg capsule (Lyrica) 100 mg PO TID 08/08/19 [History Confirmed 10/27/22] docusate sodium 100 mg capsule (DOK) 100 mg PO BID PRN Constipation 30 days #60 caps 08/09/19 [Rx Confirmed 10/27/22] allopurinol 300 mg tablet 300 mg PO DAILY 09/10/21 [History Confirmed 10/27/22] colchicine (gout) 0.6 mg tablet 1.2 mg PO DAILY 09/10/21 [History Confirmed 10/27/22] mirtazapine 15 mg tablet 15 mg PO HS 10/27/22 [History Confirmed 10/27/22] verapamil 40 mg tablet 40 mg PO DAILY 10/27/22 [History Confirmed 10/27/22] Exam Physical Exam Vital Signs: Temp Pulse Resp BP Pulse Ox O2 Del Method 97.1 F L 50 L 17 105/60 94 L Room Air 10/28/22 04:15 10/28/22 04:15 10/28/22 04:15 10/28/22 04:15 10/28/22 04:15 10/28/22 06:43 Narrative: General: Awake, A&O x 3, pleasant, cooperative, well nourished. Resting comfortably in recliner HENT: NC, AT Eyes: No scleral icterus Neck: Supple Cardio: RRR, no murmurs, rubs or gallops Respiratory: CTAB, no wheezes rhonchi or rales. No evidence of respiratory distress GI: Soft, nontender, nondistended, bowel sounds normal in all 4 quadrants Neuro: CN II-XII intact. Strength 5/5 right upper and lower extremities. Strength 5/5 left upper and lower extremities. Sensation intact bilateral lowerextremities. Extremities: No edema, erythema, cyanosis. Noted effusion of right knee Psych: Affect, speech and movements normal. Mood congruent Results Labs Labs: Laboratory Results - last 24 hr 10/27/22 10/27/22 10/28/22 06:23 08:58 08:00 Corrected WBC 7.4 Uncorrected WBC Count 7.4 RBC 3.60 L Hgb 12.3 L Hct 36.4 L MCV 101.0 MCH 34.2 MCHC 33.9 RDW 15.4 H Plt Count 92 L MPV 10.0 Neut % (Auto) 64.6 Lymph % (Auto) 24.1 [place] % (Auto) 7.5 Eos % (Auto) 3.3 Baso % (Auto) 0.5 Nucleat RBC Rel Count 0.1 Neut # (Auto) 4.8 Lymph # (Auto) 1.8 [place] # (Auto) 0.6 Eos # (Auto) 0.2 Baso # (Auto) 0.0 PHA Creatinine Clear Sodium Potassium Chloride Carbon Dioxide Anion Gap BUN Creatinine Est GFR (CKD-EPI) Glucose Uric Acid 4.6 Calcium Magnesium Total Bilirubin AST ALT Alkaline Phosphatase Total Protein Albumin Globulin Albumin/Globulin Ratio Add-On Test Request Cancelled 10/28/22 08:00 Corrected WBC Uncorrected WBC Count RBC Hgb Hct MCV MCH MCHC RDW Plt Count MPV Neut % (Auto) Lymph % (Auto) [place] % (Auto) Eos % (Auto) Baso % (Auto) Nucleat RBC Rel Count Neut # (Auto) Lymph # (Auto) [place] # (Auto) Eos # (Auto) Baso # (Auto) PHA Creatinine Clear 40.59 Sodium 138 Potassium 3.6 Chloride 106 Carbon Dioxide 29.7 Anion Gap 5.9 L BUN 32 H Creatinine 1.80 H D Est GFR (CKD-EPI) 38.528 Glucose 87 Uric Acid Calcium 8.0 L Magnesium 2.2 Total Bilirubin 0.7 AST 46 H ALT 20 Alkaline Phosphatase 66 Total Protein 5.8 L D Albumin 2.9 L D Globulin 2.9 Albumin/Globulin Ratio 1.0 Add-On Test Request Additional Results Results Comment: I reviewed clinical lab tests, radiology reports and obtained and summated medical records and have ordered follow up lab tests and imaging studies as needed for rehabilitation care. Assessment/Plan (1) Impaired mobility and ADLs: Code(s): Z74.09 - Other reduced mobility; Z78.9 - Other specified health status Status: Acute (2) HTN (hypertension): Code(s): I10 - Essential (primary) hypertension Status: Acute (3) Gout: Code(s): M10.9 - Gout, unspecified Status: Acute (4) Chronic pain: Code(s): G89.29 - Other chronic pain Status: Acute (5) Effusion of right knee: Code(s): M25.461 - Effusion, right knee Status: Acute Plan This is a 77-year-old male with past medical history of gout and chronic pain who presented to [facility] with intractable right knee pain, likely due to an acute gouty attack. Treated with colchicine and steroidswith improvement in pain. Patient does have functional deficits below baseline,but he does not have an appropriate diagnosis for inpatient rehab. Given this, we would recommend a detention facility for continued therapy needs prior to discharge home. As patient's pain improves, he may be able to tolerate therapy well and could possibly be a discharge home with home health if deemed appropriate by primary team. Plan: I completed a substantive portion of this encounter, the medical decision makingportion of this note in its entirety, including Allied health note review, nursing note review, network consultant note review, discussion with nursing and case management, and more than 50% of my time was spent on counseling and coordination of care, time spent 65 minutes Patient was personally seen by me, Dr. Cruz, on the day of encounter, reviewed the history and the relevant portions of the chart, including current orders, allied health and network consultant notes, labs/imaging and performed hill elements of exam and I formulated the plan of care and facilitated the medical decision making. Documented By: Ayaz Cruz MD [id number] Signed By: <Electronically signed by Ayaz Cruz MD> 10/28/22 9215 [facility] Work Phone: Consult note Author Elizabeth Williamson [facility] October 29, 2022 9:37am Note Date/Time October 29, 2022 9:28am [facility] [address] [place] [address] Psychiatry Consult Note Signed Patient: Hilary Maldonado#: [id number] : 1945 Acct:[id number] Age/Sex: 77 / M Adm Date: 3 Loc: Room: 6R4784-9 Type : ADM IN Attending Dr: Pedro Luis Frye MD Copies to: MD Tyree Leo Jr, DO Pedro Luis Frye MD~ HPI Consult Date: 10/29/22 Requesting Physician: Pedro Luis Frye MD Primary Care Provider: Damian Ambrosio DO Consult Narrative HPI: Mr. Maldonado is a 77 year old male with a PMH of gout, arthritis, tobacco dependence, HTN, depression, and headaches who presents for a psychiatric consult for capacity evaluation. Reportedly, he presents to the emergency room due to right knee pain, inability to walk, slid to the floor and laid on the floor for 6 hours today.? Patient initially left AMA from the emergency room earlier today, came back with the same knee pain and inability to walk.? Patientseen and evaluated in the emergency room, resting on the cart, yells out in painwith every movement.? Reports he has had this right knee pain that started abouta month ago, has gotten worse ever since.? He states its sometimes he walks witha walker.? He reports he did not fall today he just slid to the floor, laid there because he could not walk.? He reports that he is a smoker, he denies alcohol use.? At the time of the interview, he presented as cooperative but has slow response on exam. He is difficult of hearing which limits his ability to communicate. He was able to express the circumstances that lead to his hospitalization and talked about the diagnosis of gout. He said he has been falling and has difficulty ambulating. He said medical team are giving him meds and recommended OT/PT. He lives by himself and has poor social support. ? Reports he does not know what medications he takes, does not remember what surgeries he has had in the past. The patient denies current suicidal or homicidal ideation, and verbalized the intent to notify staff if there are such thoughts. The patient denies recent suicidal or self injurious behaviors.?Records show a diagnosis of MDD and is currently on Trintellix and Remeron. He denied any request to leave AMA at this time. When discussed about consequences of refusing treatment, he said he can have repeated falls and flare up of gout. I asked him if he would consider SNF and said he is not sure about this because he does not understand the benefit. He said he would be open to having another discussion with the medical provider. Reviewing prior records, it seems that patient has not made rational choices in the past. It might be related to his personality. Case discussed with Dr. Fitzgerald indicated that patient has been giving mixed answers and occasionally not communication or responding with medical team. Medical team is planning to have discussion with the patient again about SNF option. On mental status examination, he presents as a casually dressed man, cooperative, intermittent eye contact, with apparent trouble expressing himself when addressed and asked to respond (likely precipitated by diff hearing). He is alert and oriented x 3. Speech is spontaneous. The mood is ``ok.?? Affect is reactive and mood congruent. No psychomotor retardation or agitation. The thought process is goal-directed. The content shows no evidence of psychotic or suicidal content. He is unable to tell me the month and identifies the year correctly. He is able to identify his location [facility] Medical History Chronic pain COPD (chronic obstructive pulmonary disease) Gout HTN (hypertension) Hyperlipemia Family History Family/Other Pancreatic cancer Father Myocardial infarction Social History Smoking Status: Unknown if ever smoked Substance Use Type: Unknown Meds Medications and Allergies Allergies No Known Allergies Allergy (Verified 10/26/22 21:04) Home Medications atorvastatin 10 mg tablet 10 mg PO HS 03/02/18 [History Confirmed 10/27/22] celecoxib 200 mg capsule 200 mg PO DAILY 03/02/18 [History Confirmed 10/27/22] vortioxetine 10 mg tablet 10 mg PO DAILY 03/02/18 [History Confirmed 10/27/22] aspirin 81 mg tablet,delayed release (Aspir-) 81 mg PO DAILY 08/08/19 [History Confirmed 10/26/22] famotidine 40 mg tablet 40 mg PO DAILY 08/08/19 [History Confirmed 10/27/22] morphine 15 mg tablet,extended release (MS Contin) 15 mg PO BID PRN Pain 08/08/19 [History Confirmed 10/27/22] pregabalin 100 mg capsule (Lyrica) 100 mg PO TID 08/08/19 [History Confirmed 10/27/22] docusate sodium 100 mg capsule (DOK) 100 mg PO BID PRN Constipation 30 days #60 caps 08/09/19 [Rx Confirmed 10/27/22] allopurinol 300 mg tablet 300 mg PO DAILY 09/10/21 [History Confirmed 10/27/22] colchicine (gout) 0.6 mg tablet 1.2 mg PO DAILY 09/10/21 [History Confirmed 10/27/22] mirtazapine 15 mg tablet 15 mg PO HS 10/27/22 [History Confirmed 10/27/22] verapamil 40 mg tablet 40 mg PO DAILY 10/27/22 [History Confirmed 10/27/22] Exam Physical Exam Vital Signs: Temp Pulse Resp BP Pulse Ox O2 Del Method 97.5 F L 48 L 18 114/69 97 Room Air 10/28/22 19:40 10/29/22 04:36 10/29/22 04:36 10/29/22 04:36 10/29/22 04:36 10/29/22 04:36 Results Labs 10/29/22 06:09 10/29/22 06:09 Psychiatry Labs: 10/27/22 10/27/22 10/27/22 06:23 06:23 08:58 RBC 3.91 Hgb 13.2 Hct 39.1 MCV 99.9 MCH 33.8 MCHC 33.8 RDW 14.8 Plt Count 103 L MPV 9.7 Sodium 135 L Potassium 3.8 Chloride 103 Carbon Dioxide 27.3 Anion Gap TNP BUN 20 Creatinine 1.30 Calcium 8.4 L Total Bilirubin AST ALT Alkaline Phosphatase Total Protein Albumin 10/28/22 10/28/22 10/29/22 08:00 08:00 06:09 RBC 3.60 L 3.97 Hgb 12.3 L 13.5 Hct 36.4 L 40.2 MCV 101.0 101.4 H MCH 34.2 34.0 MCHC 33.9 33.5 RDW 15.4 H 15.2 H Plt Count 92 L 113 L MPV 10.0 10.3 H Sodium 138 Potassium 3.6 Chloride 106 Carbon Dioxide 29.7 Anion Gap 5.9 L BUN 32 H Creatinine 1.80 H D Calcium 8.0 L Total Bilirubin 0.7 AST 46 H ALT 20 Alkaline Phosphatase 66 Total Protein 5.8 L D Albumin 2.9 L D 10/29/22 06:09 RBC Hgb Hct MCV MCH MCHC RDW Plt Count MPV Sodium 136 Potassium 4.3 Chloride 103 Carbon Dioxide 24.7 Anion Gap 12.6 BUN 44 H Creatinine 1.74 H Calcium 8.8 Total Bilirubin AST ALT Alkaline Phosphatase Total Protein Albumin Assessment/Plan (1) Effusion of right knee: Code(s): M25.461 - Effusion, right knee Status: Acute (2) Frequent falls: Code(s): R29.6 - Repeated falls Status: Acute (3) Generalized weakness: Code(s): R53.1 - Weakness Status: Acute (4) Chronic pain: Code(s): G89.29 - Other chronic pain Status: Acute (5) Thrombocytopenia: Code(s): D69.6 - Thrombocytopenia, unspecified Status: Acute (6) HTN (hypertension): Code(s): I10 - Essential (primary) hypertension Status: Acute (7) Gout: Code(s): M10.9 - Gout, unspecified Status: Acute (8) Inability to ambulate due to knee: Code(s): R26.2 - Difficulty in walking, not elsewhere classified Status: Acute (9) Impaired mobility and ADLs: Code(s): Z74.09 - Other reduced mobility; Z78.9 - Other specified health status Status: Acute (10) Encounter for assessment of healthcare decision-making capacity: Plan: Patient was able to elaborate on the circumstances that led to his hospitalization. He denied any request to leave AMA at this time. He understands that he needs further treatment here. When discussed about consequences of refusing treatment, he said he can have repeated falls and flare up of gout. I asked him if he would consider SNF and said he is not sure about this because he does not understand the benefit and the details of SNF. He said he would be open to having another discussion with the medical provider. Reviewing prior records, it seems that patient has not made rational choices in the past. It might be related to his personality. Case discussed with Dr. Fitzgerald indicated that patient has been giving mixed answers and occasionally not communication or responding with medical team. Medical team is planning to have discussion with the patient again about SNF option. Patient currently has capacity to make medical decisions. Medical team to continue ongoing discussions about treatment options and aftercare plans such asSNF. Code(s): Z02.79 - Encounter for issue of other medical certificate Status: Acute Documented By: William Williamson MD 3 0925 Signed By: <Electronically signed by William Williamson MD> 10/29/22 0937 [facility] Work Phone: Consult note Author Ayaz Cruz [facility] November 02, 2022 1:34pm Note Date/Time November 02, 2022 1:21pm [facility] [address] [place] [address] Physiatry (Rehab) Consult Note Signed Patient: Hilary Maldonado MR#: [id number] : 1945 Acct:[id number] Age/Sex: 77 / M Adm Date: 3 Loc: Room: [address] [place] [address] Type: ADM IN Attending Dr: Aashish Natarajan DO Copies to: MD Tyree Zuñiga Jr, DO Kyle T Cleveland, DO~ HPI Consult Date: 11/02/22 Requesting Physician: Aashish Natarajan DO Primary Care Provider: Damian Ambrosio DO Consult Narrative Reason for consult: Evaluation for inpatient rehab HPI: Mr. Maldonado is a 77 year old male with PMH gout, arthritis, tobacco dependence, HTN,and depression who presented to [facility] with his sister due to confusion and inability to take care of himself. The patient was recently at [facility] due to rightknee pain 2/2 gout. He was treated with colchicine and IV Toradol but had an AKIso this was DCd and he was started on prednisone. Refused knee aspiration. PM&R was consulted at that time for evaluation for inpatient rehab. I was recommending SNF at that time due to no rehab diagnosis. The patient refused SNFand was discharged home. He lives alone and was unable to take care of himself and developed confusion so was therefore brought to the hospital. Upon admission, he tested positive for COVID 19. Is now being treated with Remdesivirand dexamethasone. Remains slightly confused although oriented to person and place. The patient lives alone in a 1 story home with several steps to enter. Notes that laundry is in the basement with a full flight down. Was mostly independent before but did have to crawl up/down stairs. PM&R was consulted for evaluation. This patient was seen and evaluated at bedside. Lying comfortably in bed. No major concerns today. No significant pain. Oriented to person, place, and year. Therapy updates: Bed mobility: Prashant-CGA Ambulation: 8' FWW Prashant Review of Systems Review of Systems All other systems reviewed & are negative unless noted below or in HPI [facility] Medical History Chronic pain COPD (chronic obstructive pulmonary disease) Gout HTN (hypertension) Hyperlipemia Family History Family/Other Pancreatic cancer Father Myocardial infarction Social History Smoking Status: Current every day smoker Tobacco Type: cigarettes Substance Use Type: None Meds Medications and Allergies Allergies No Known Allergies Allergy (Verified 11/01/22 16:37) Home Medications atorvastatin 10 mg tablet 10 mg PO HS 03/02/18 [History Confirmed 11/01/22] celecoxib 200 mg capsule 200 mg PO DAILY 03/02/18 [History Confirmed 11/01/22] vortioxetine 10 mg tablet 10 mg PO DAILY 03/02/18 [History Confirmed 11/01/22] aspirin 81 mg tablet,delayed release (Aspir-) 81 mg PO DAILY 08/08/19 [History Confirmed 11/01/22] famotidine 40 mg tablet 40 mg PO DAILY 08/08/19 [History Confirmed 11/01/22] morphine 15 mg tablet,extended release (MS Contin) 15 mg PO BID PRN Pain 08/08/19 [History Confirmed 11/01/22] pregabalin 100 mg capsule (Lyrica) 100 mg PO TID 08/08/19 [History Confirmed 11/01/22] docusate sodium 100 mg capsule (DOK) 100 mg PO BID PRN Constipation 30 days #60 caps 08/09/19 [Rx Confirmed 11/01/22] allopurinol 300 mg tablet 300 mg PO DAILY 09/10/21 [History Confirmed 11/01/22] colchicine (gout) 0.6 mg tablet 1.2 mg PO DAILY 09/10/21 [History Confirmed 11/01/22] mirtazapine 15 mg tablet 15 mg PO HS 10/27/22 [History Confirmed 11/01/22] verapamil 40 mg tablet 40 mg PO DAILY 10/27/22 [History Confirmed 11/01/22] prednisone 20 mg tablet 40 mg PO DAILY 15 days #30 tabs 10/30/22 [Rx Confirmed 11/01/22] Exam Physical Exam Vital Signs: Temp Pulse Resp BP Pulse Ox O2 Del Method 97.6 F 53 L 14 156/73 H 96 Room Air 11/02/22 12:27 11/02/22 12:27 11/02/22 12:27 11/02/22 12:27 11/02/22 12:27 11/02/22 12:27 Narrative: General: Awake, alert, oriented to person, place, year, pleasant, cooperative, well nourished. Resting comfortably in bed HENT: NC, AT Eyes: No scleral icterus Neck: Supple Cardio: RRR, no murmurs, rubs or gallops Respiratory: CTAB, no wheezes rhonchi or rales. No evidence of respiratory distress GI: Soft, nontender, nondistended, bowel sounds normal in all 4 quadrants Neuro: CN II-XII intact. Strength 5/5 right upper and lower extremities. Strength 5/5 left upper and lower extremities. Sensation intact bilateral lowerextremities. Extremities: No edema, erythema, cyanosis Psych: Affect, speech and movements normal. Mood congruent Results Labs Labs: Laboratory Results - last 24 hr 11/01/22 11/01/22 11/01/22 19:49 19:49 19:49 Corrected WBC 5.5 Uncorrected WBC Count 5.5 RBC 3.84 L Hgb 12.7 L Hct 38.3 L MCV 99.8 MCH 33.1 MCHC 33.2 RDW 14.8 Plt Count 119 L MPV 8.9 Neut % (Auto) 53.4 Lymph % (Auto) 32.6 [place] % (Auto) 13.4 Eos % (Auto) 0.3 Baso % (Auto) 0.3 Nucleat RBC Rel Count 0.3 Neut # (Auto) 3.0 Lymph # (Auto) 1.8 [place] # (Auto) 0.7 Eos # (Auto) 0.0 Baso # (Auto) 0.0 Monocyte Dist Width 22.50 H PHA Creatinine Clear 62.99 Sodium 138 Potassium 3.7 Chloride 105 Carbon Dioxide 29.2 Anion Gap 7.5 BUN 24 Creatinine 1.16 Est GFR (CKD-EPI) > 60.0 Glucose 93 Uric Acid Calcium 8.7 Total Bilirubin 0.6 AST 65 H ALT 41 Alkaline Phosphatase 69 Troponin I High Sens 34.7 H Total Protein 6.5 Albumin 3.3 L Globulin 3.2 Albumin/Globulin Ratio 1.0 Urine Color Urine Appearance Urine pH Ur Specific [place]io Urine Protein Urine Glucose (UA) Urine Ketones Urine Occult Blood Urine Nitrite Urine Bilirubin Urine Urobilinogen Ur Leukocyte Esterase Urine RBC Urine WBC Ur Squamous Epith Cells Urine Bacteria Hyaline Casts COVID-19 Clin Com 11/01/22 11/02/22 11/02/22 21:21 00:15 04:56 Corrected WBC Uncorrected WBC Count RBC Hgb Hct MCV MCH MCHC RDW Plt Count MPV Neut % (Auto) Lymph % (Auto) [place] % (Auto) Eos % (Auto) Baso % (Auto) Nucleat RBC Rel Count Neut # (Auto) Lymph # (Auto) [place] # (Auto) Eos # (Auto) Baso # (Auto) Monocyte Dist Width PHA Creatinine Clear 66.42 Sodium 137 Potassium 4.1 Chloride 106 Carbon Dioxide 26.0 Anion Gap 9.1 BUN 21 Creatinine 1.10 Est GFR (CKD-EPI) > 60.0 Glucose 124 H Uric Acid 6.5 Calcium 8.4 L Total Bilirubin 0.6 AST 66 H ALT 41 Alkaline Phosphatase 67 Troponin I High Sens Total Protein 6.3 L Albumin 3.2 L Globulin 3.1 Albumin/Globulin Ratio 1.0 Urine Color Yellow Urine Appearance Clear Urine pH 5.5 Ur Specific Clio 1.024 Urine Protein 300 H Urine Glucose (UA) Normal Urine Ketones Negative Urine Occult Blood Negative Urine Nitrite Negative Urine Bilirubin Negative Urine Urobilinogen Normal Ur Leukocyte Esterase Negative Urine RBC 3-4 Urine WBC 1-2 Ur Squamous Epith Cells None seen Urine Bacteria None seen Hyaline Casts 0-8 COVID-19 Clin Com Detected A Additional Results Results Comment: I reviewed clinical lab tests, radiology reports and obtained and summated medical records and have ordered follow up lab tests and imaging studies as needed for rehabilitation care. Assessment/Plan (1) COVID-19: Code(s): U07.1 - COVID-19 Status: Acute (2) Encephalopathy: Code(s): G93.40 - Encephalopathy, unspecified Status: Acute (3) Unable to care for self: Code(s): Z78.9 - Other specified health status Status: Acute (4) Impaired mobility and ADLs: Code(s): Z74.09 - Other reduced mobility; Z78.9 - Other specified health status Status: Acute (5) HTN (hypertension): Code(s): I10 - Essential (primary) hypertension Status: Acute (6) Gout: Code(s): M10.9 - Gout, unspecified Status: Acute Plan This is a 77 y/o male with PMH gout, arthritis, HTN, who presented to [facility] with confusion and inability to care for himself. Tested positive for COVID-19. 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 I would therefore recommend acute inpatient rehab for this patient prior to return home. 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 The patient has functional deficits requiring both active and ongoing therapeutic intervention of at least 2 disciplines of therapy, physical therapy/Occupational Therapy +/- speech therapy. Patient has worked appropriately with multiple disciplines of therapy on acute care, and demonstrates ability to tolerate and participate and make reasonable gains with at least a 15 hour/week inpatient rehabilitation program. Due to medical complexity as noted, rehabilitation physician supervision is bothreasonable and necessary, including iegi-pi-gxak visits at least 3 days/week with the need to treat, manage and modify course of treatment, including participating in at least once weekly interdisciplinary team conferences. The patient requires multidisciplinary rehabilitation treatment including rehabilitation physician at least 3 times per week, 24-hour rehabilitation nursing, physical occupational therapy, plus/minus speech-language pathology, rehabilitation case management, nutrition services, plus minus rehabilitation psychology. This case cannot be best/most appropriately managed at a lower level of care. Estimated length of rehabilitation stay: 10 Days Prior Level of Function: IND Expected functional status at discharge from rehab: Self-care (ADLs) : Mod I Bed Mobility/Transfers: Mod I Ambulation:Mod I Cognition: Mod I Swallowing:Mod I There is a reasonable plan in place for discharge to the community. Overall prognosis is fair to good to make functional gains that would make substantial difference in the eventual discharge setting. Plan: I completed a substantive portion of this encounter, the medical decision makingportion of this note in its entirety, including Allied health note review, nursing note review, network consultant note review, discussion with nursing and case management, and more than 50% of my time was spent on counseling and coordination of care, time spent 65 minutes Patient was personally seen by me, Dr. Cruz, on the day of encounter, reviewed the history and the relevant portions of the chart, including current orders, allied health and network consultant notes, labs/imaging and performed hill elements of exam and I formulated the plan of care and facilitated the medical decision making. Documented By: Ayaz Cruz MD [id number] Signed By: <Electronically signed by Ayaz Cruz MD> 11/02/22 1334 [facility] Work Phone: Consult note Author Manjinder Galloway [facility] December 21, 2022 11:25am Note Date/Time December 21, 2022 1 1:18am [facility] [address] [place] [address] Cardiology Consult Note Signed Patient: Hilary Maldonado MR#: [id number] : 1945 Acct:[id number] Age/Sex: 77 / M Adm Date: 3 Loc: Room: [address] [place] [address] Type: ADM IN Attending Dr: Celeste Alfonso MD Copies to: Manjinder Galloway MD FAMILY PHYSICIAN Celeste Alfonso MD~ Cardiology HPI History of Present Illness Consult Date: 12/21/22 Reason for Consult: Cardiac consultation requested for evaluation for loss of consciousness questionable syncope HPI: Mr. Maldonado is a 77 year old male white male who we have seen in the past. He does not have history of coronary artery disease. Records suggest that he had occlusion of his RCA and underwent previously PCI to the left circumflex remotely at the [facility]. Patient apparently was found on the floor. Patient has no recollection. At the time my evaluation patient clearly confusedwith very poor long and short- term memory. Unclear to me if he had some dementia. Patient appears to be poorly kept. Patient was brought to the hospital because of loss of consciousness. Details lacking. It does not appearthat he has any physical injury. He underwent MRI of the brain that failed to demonstrate acute abnormality. The patient reports some left arm weakness. He denies chest pain or shortness of breath. The patient has not been seen or follow-up by any global creative chairman recently. Echocardiogram since admission showed mild LV systolic dysfunction with LVEF around 45% with inferobasilar wall hypokinesis. EKG showed old inferior NC. Rhythm strips demonstrate ventricularectopic beats. Troponin was mildly elevated. Review of Systems Review of Systems Review of systems: Patient appears very unreliable and unable to to give any detailed information and clearly confused PMFSH Source: Unable to Obtain Medical History Chronic pain COPD (chronic obstructive pulmonary disease) Gout HTN (hypertension) Hyperlipemia Family History Family/Other Pancreatic cancer Father Myocardial infarction Social History Smoking Status: Current every day smoker Tobacco Type: cigarettes Substance Use Type: None Meds Medications and Allergies Allergies No Known Allergies Allergy (Verified 12/19/22 13:41) Home Medications atorvastatin 10 mg tablet 10 mg PO QAM 03/02/18 [History Confirmed 12/19/22] celecoxib 200 mg capsule 200 mg PO DAILY 03/02/18 [History Confirmed 12/19/22] vortioxetine 10 mg tablet 10 mg PO DAILY 03/02/18 [History Confirmed 12/19/22] morphine 15 mg tablet,extended release (MS Contin) 15 mg PO BID PRN Pain 08/08/19 [History Confirmed 12/19/22] pregabalin 100 mg capsule (Lyrica) 100 mg PO TID 08/08/19 [History Confirmed 12/19/22] docusate sodium 100 mg capsule (DOK) 100 mg PO BID PRN Constipation 30 days #60 caps 08/09/19 [Rx Confirmed 12/19/22] colchicine (gout) 0.6 mg tablet 0.6 mg PO BID 09/10/21 [History Confirmed 12/19/22] mirtazapine 15 mg tablet 15 mg PO QHS 10/27/22 [History Confirmed 12/19/22] verapamil 40 mg tablet 40 mg PO QAM 10/27/22 [History Confirmed 12/19/22] allopurinol 300 mg tablet 300 mg PO QAM 11/20/22 [History Confirmed 12/19/22] aspirin 81 mg tablet,delayed release 81 mg PO DAILY 11/20/22 [History Confirmed 12/19/22] famotidine 40 mg tablet 40 mg PO QHS 11/20/22 [History Confirmed 12/19/22] albuterol sulfate 2.5 mg/3 mL (0.083 %) solution for nebulization 2.5 mg inhalation BID 12/19/22 [History Confirmed 12/19/22] aripiprazole 5 mg tablet 5 mg PO QAM 12/19/22 [History Confirmed 12/19/22] diphenhydramine HCl 50 mg capsule (Banophen) 50 mg PO QHS PRN Insomnia 12/19/22 [History Confirmed 12/19/22] hydrochlorothiazide 12.5 mg capsule 12.5 mg PO QAM 12/19/22 [History Confirmed 12/19/22] Exam Physical Exam Vital Signs: Temp Pulse Resp BP Pulse Ox O2 Del Method 98.2 F 75 18 138/71 97 Room Air 12/21/22 08:00 12/21/22 08:00 12/21/22 08:00 12/21/22 08:00 12/21/22 08:00 12/21/22 08:00 Const General: cooperative, comfortable and no acute distress HEENT Head: atraumatic Mouth: oral mucosae normal Eyes General: appearance normal, both eyes and all related structures Pupils: PERRL Neck Neck: normal visual inspection, supple and no lymphadenopathy noted Neck mass: No Thyroid: thyroid normal Carotids: normal carotid upstroke Chest Chest palpation & inspection: normal inspection of the chest Resp Effort & Inspection: normal respiratory effort Auscultation: clear to auscultation bilaterally Cardio Palpation: normal PMI Rate: regular rate Rhythm: regular rhythm Heart Sounds: S1 normal, S2 normal and murmur systolic I/ and at the right sternal border GI Palpation: soft and no hepatosplenomegaly Percussion: normal to percussion Auscultation: normal bowel sounds Skin General: no rashes or lesions noted and dry skin Neuro General: patient alert, patient awake, tone normal, moves all extremities and other (Appears confused) Extrem General: capillary refill normal and no clubbing, cyanosis or edema Results Labs 12/20/22 06:17 12/20/22 06:17 Lab results: Intake and Output 12/20/22 12/21/22 12/21/22 23:59 07:59 15:59 Output Total 350 / 1150 150 / 150 Balance -350 / -450 -150 / -150 Output: Urine Amount (Catheter) 350 / 950 150 / 150 Coude 350 / 950 150 / 150 Other: Weight 87.4 kg Date of Last Bowel Movement 12/20/22 12/20/22 Patient Weight 12/21/22 23:59 Weight 87.4 kg Lab 12/19/22 14:55 PT 13.4 H INR 1.1 APTT 33.9 EKG Interpretations EKG Attestation EKG: I reviewed this ECG and interpreted as documented below: (Sinusrhythm with old inferior wall NC) A&P - Cardiology (1) Altered mental status: Code(s): R41.82 - Altered mental status, unspecified Plan Assessment 1. An episode of loss of consciousness. Detail is lacking. Unclear etiology. Patient appears to have some persistent confusion unclear to me if he had some degree of dementia. He is higher risk for cerebrovascular disease 2. Coronary artery disease with known occlusion of his RCA and remote PCI to the left circumflex. No recent ischemic evaluation. 3. Mild troponin rise likely a type II event but cannot exclude the progressionof his known underlying ischemic heart disease 4. Mild LV systolic dysfunction 5. PVCs noted on telemetry 6. Probable dementia 7. Hyperlipidemia Plan 1. Continue treatment with aspirin, statin and will add low-dose beta-eric 2. Would recommend noninvasive ischemic evaluation and outpatient event monitorwhen his mental status improved. We will try to reviewed with patient family when available. Patient does not appear to be a good candidate for invasive evaluation 3. Patient clearly high risk for fall. Documented By: Manjinder Galloway MD 12/21/22 1114 Signed By: <Electronically signed by MD Manjinder Galloway> 12/21/22 [facility] Work Phone: Consult note Author Andrei Araujo [facility] December 23, 2022 11:25am Note Date/Time December 23, 2022 11:20am [facility] [address] [place], [place] [id number] Vascular Surgery Consult Note Signed Patient: Hilary Maldonado MR#: [id number] : 1945 Acct:[id number] Age/Sex: 77 / M Adm Date: 3 Loc: 3T Room: [address] [place] [address] Type: ADM IN Attending Dr: Celeste Alfonso MD Copies to: Andrei Araujo MD NO FAMILY PHYSICIAN Celeste Alfonso MD~ HPI Consult HPI Reason for consult: Carotid occlusive disease History of present illness: Mr. Maldonado is a 77 year old male has been followed for quite some time with known carotid occlusive disease. His anatomy has been. On previous studies to show complete occlusion of the common and internal carotid artery on the left. On the right he has always had nonsurgical disease. He was recently found down at his home and admitted with mental status changes which have been slowly improving although he appears not to have reached his baseline at this time. MRI on admission did not show acute infarct. His duplex examination suggested potential flow in the distal internal carotid artery with occlusion of the common carotid artery. cc:: CC: Celeste Alfonso MD Data of Consult Consult date: 12/23/2022 Requesting Physician: Celeste Alfonso MD Review of Systems Review of Systems Unobtainable due to mental status [facility] Medical History Chronic pain COPD (chronic obstructive pulmonary disease) Gout HTN (hypertension) Hyperlipemia Family History Family/Other Pancreatic cancer Father Myocardial infarction Social History Smoking Status: Current every day smoker Tobacco Type: cigarettes Substance Use Type: None Allergies & Active Medications Medications and Allergies Allergies No Known Allergies Allergy (Verified 12/19/22 13:41) Exam Physical Exam Vital Signs: Temp Pulse Resp BP Pulse Ox O2 Del Method 97.6 F 79 18 149/82 H 96 Room Air 11/10/23 08:00 12/23/22 08:00 12/23/22 08:00 12/23/22 08:00 12/23/22 08:00 12/23/22 08:00 Narrative: Pleasant patient sitting up in the chair eating his breakfast. His sister is present during interview. His right hand is notably weaker than the left. He answers questions but is very poor with details or memory of recent events. Results Labs 12/21/22 14:59 12/21/22 14:59 Labs: PT 13.4 Seconds (9.0-12.9) H 12/19/22 14:55 APTT 33.9 Seconds (25.1-36.5) 12/19/22 14:55 A&P - Vascular (1) Altered mental status: Code(s): R41.82 - Altered mental status, unspecified Status: Acute (2) Carotid artery disease: Plan: We ordered a CT angiogram because of the possibility of a patent distal internalcarotid artery. With his repeat syncopal episodes I wanted to be certain that he did not have correctable anatomy. On reviewing his CT his left common and internal are both completely occluded and his left external carotid artery does have some residual flow. His left vertebral dominant which is a good quality vessel the right vertebral artery appears diseased proximally but does reconstitute distally. All of these abnormalities to be treated with medical therapy rather than surgical intervention at this time. We can continue to follow him with annual carotid duplex examination in the office as we have previously. Code(s): I77.9 - Disorder of arteries and arterioles, unspecified Status: Acute Documented By: Andrei Araujo MD 12/23/22 112 0 Signed By: <Electronically signed by MD Andrei Araujo> 12/23/22 [facility] Work Phone: Consult note Author William booker [facility] April 28, 2023 10:12am Note Date/Time April 28, 2023 10: 01am [facility] [address] [place] [address] Psychiatry Consult Note Signed Patient: Hilary Maldonado MR#: [id number] : 1945 Acct:[id number] Age/Sex: 78 / M Adm Date: 4 Loc: 3T Room: 2J3528-8 Type : ADM INOo Attending Dr: Mariano Dennis DO Copies to: MD Tyree Leo Jr, DO Michael R. Frings, DO~ HPI Consult Date: 04/28/23 Requesting Physician: Mariano Dennis DO Primary Care Provider: Damian Ambrosio DO Consult Narrative HPI: This patient is a 78 male with a complex past medical history recently discharged from this facility March 08 of this year. He was at a detention facility from that time forward reportedly and a few days ago it is reportedly left AGAINST MEDICAL ADVICE. Reportedly, EMS was called on the patient with concerns of his wellbeing prompting his presentation. His complaint primarily is his right knee pain and reportedly requests a knee replacement. His workup in the ER today is relatively benign with stable vital signs breathing comfortably on room air. No fevers or signs of distress. Mild anemia with a hemoglobin of 12.7, borderline thrombocytopenia of 157, white blood cell count 8.2. Slight distribution width elevated 22.60. Chemistries show a serum creatinine of 1.21 with improvement in renal function from his inpatient labs in February. No LFT abnormalities. He has cardiomegaly and vascular congestion on chest x-ray with known systolic congestive heart failure,unchanged from prior films. A full review x-ray of his right knee shows unchanged moderate degenerative changes. At the time of the interview, he has presents as guarded. He reports that he does not want to answer any questions so that I do not get myself in trouble. He is unable to elaborate on the circumstances that lead to hospitalization. He said he has difficulty managing his ADLS and taking care of himself but wants tohave the ability to make his decisions. He does not recall his medical problemsand is unable to elaborate on the severity of each problem. He was unable to tell me what happened and the severity of what was going on. He also did not understand the risks of leaving the hospital or why he needed tostay in the hospital. He does have limited understanding of the seriousness of his medical condition. Given his recent AMA discharges and lack of insight, I believe patient lacks capacity at this time. On mental status examination, he presents as a casually dressed man, cooperative, intermittent eye contact, with apparent trouble expressing himself when addressed and asked to respond. He is alert and oriented x 2. Speech is spontaneous. The mood is ``ok.?? Affect is constricted, guarded and suspicious.No psychomotor retardation or agitation. The thought process is goal-directed. The content shows no evidence of psychotic or suicidal content. Insight and judgment are limited. Cognitive testing - see below He is unable to recall 3 words after 5 minutes. He is able to tell me the monthbut unable to identify the year correctly. He is unable to spell world backwards without multiple errors. He is able to identify his location [facility] Medical History Dementia Parotid mass Gout Chronic pain Hyperlipemia HTN (hypertension) COPD (chronic obstructive pulmonary disease) Family History Family/Other Lung cancer Colon cancer Father Myocardial infarction Mother Breast cancer Family/Other Myocardial infarction Father 55 yrs Mother 92 yrs Social History Smoking Status: Former smoker Tobacco Type: cigarettes Substance Use Type: None Meds Medications and Allergies Allergies No Known Allergies Allergy (Verified 04/27/23 13:08) Home Medications atorvastatin 10 mg tablet 10 mg PO QAM 03/02/18 [History Confirmed 04/27/23] vortioxetine 10 mg tablet 10 mg PO DAILY 03/02/18 [History Confirmed 03/24/23] mirtazapine 15 mg tablet 15 mg PO QHS 10/27/22 [History Confirmed 04/27/23] allopurinol 300 mg tablet 300 mg PO QAM 11/20/22 [History Confirmed 04/27/23] aripiprazole 5 mg tablet 5 mg PO QAM 12/19/22 [History Confirmed 03/24/23] carvedilol 3.125 mg tablet 3.125 mg PO BID.WITH.MEALS #0 tabs 12/22/22 [Rx Confirmed 03/24/23] tamsulosin 0.4 mg capsule 0.4 mg PO DAILY #0 caps 12/22/22 [Rx Confirmed 03/24/23] potassium chloride 20 mEq tablet,extended release 20 meq PO DAILY 02/28/23 [History Confirmed 03/24/23] acetaminophen 500 mg tablet 1,000 mg (2 x 500 mg) PO Q6H PRN Fever Or Pain #0 tabs 03/08/23 [Rx Confirmed 04/27/23] ascorbic acid (vitamin C) 500 mg tablet (Vitamin C) 500 mg PO BID.WITH.BFAST.LUNCH #0 tabs 03/08/23 [Rx Confirmed 03/24/23] aspirin 81 mg tablet,delayed release 81 mg PO DAILY #0 tabs 03/08/23 [Rx Confirmed 04/27/23] calcium carbonate 500 mg calcium (1,250 mg) tablet (Oyster Shell Calcium 500) 500 mg PO BID.WITH.BFAST.LUNCH #0 tabs 03/08/23 [Rx Confirmed 03/24/23] cholecalciferol (vitamin D3) 10 mcg (400 unit) tablet (Vitamin D3) 10 mcg PO BID.WITH.MEALS #0 tabs 03/08/23 [Rx Confirmed 03/24/23] docusate sodium 100 mg capsule 200 mg (2 x 100 mg) PO BID #0 caps 03/08/23 [Rx Confirmed 03/24/23] ferrous sulfate 324 mg (65 mg iron) tablet,delayed release 324 mg PO Q48HR #0 tabs 03/08/23 [Rx Confirmed 03/24/23] furosemide 40 mg tablet 40 mg PO BID@0800,1600 #0 tabs 03/08/23 [Rx Confirmed 03/24/23] multivitamin with folic acid 400 mcg tablet (Thera) 1 tab PO DAILY #0 tabs 03/08/23 [Rx Confirmed 03/24/23] pantoprazole 40 mg tablet,delayed release 40 mg PO DAILY #0 tabs 03/08/23 [Rx Confirmed 03/24/23] pregabalin 50 mg capsule (Lyrica) 50 mg PO TID 14 days #42 caps 03/08/23 [Rx Confirmed 04/27/23] trazodone 50 mg tablet 50 mg PO QHS PRN sleep #14 tabs 03/08/23 [Rx Confirmed 03/24/23] izcvwlf-yyxuooqbawdix-fihsstpr 2 tab PO BID PRN migraine 04/27/23 [History Confirmed 04/27/23] famotidine 40 mg tablet 40 mg PO DAILY 04/27/23 [History Confirmed 04/27/23] Exam Physical Exam Vital Signs: Temp Pulse Resp BP Pulse Ox O2 Del Method 97.6 F 65 18 150/83 H 97 Room Air 04/27/23 22:43 04/28/23 04:00 04/28/23 04:00 04/28/23 04:00 04/28/23 04:00 04/28/23 04:00 Results - Psychiatry Labs 04/28/23 06:15 04/28/23 06:15 Psychiatry Labs: 04/27/23 04/27/23 04/27/23 14:04 16:15 20:49 RBC Cancelled 4.02 Hgb Cancelled 12.7 L Hct Cancelled 39.0 MCV Cancelled 97.0 MCH Cancelled 31.6 MCHC Cancelled 32.6 RDW Cancelled 18.7 H Plt Count Cancelled 157 MPV Cancelled 10.0 Sodium 140 Potassium Cancelled 3.8 Chloride 103 Carbon Dioxide 29.4 Anion Gap BUN 18 Creatinine 1.21 Calcium 9.3 Total Bilirubin 0.8 AST 21 ALT 12 Alkaline Phosphatase 70 Total Protein 8.1 Albumin 4.0 Urine Color Urine Appearance Urine pH Ur Specific Clio Urine Protein Urine Glucose (UA) Urine Ketones Urine Occult Blood Urine Nitrite Ur Leukocyte Esterase Urine RBC Urine WBC 04/27/23 04/28/23 23:30 06:15 RBC 3.68 L Hgb 11.8 L Hct 35.6 L MCV 96.8 MCH 32.0 MCHC 33.1 RDW 18.7 H Plt Count 147 L MPV 10.3 H Sodium 139 Potassium 3.9 Chloride 103 Carbon Dioxide 27.5 Anion Gap 12.4 BUN 20 Creatinine 1.34 H Calcium 8.8 Total Bilirubin 0.7 AST 15 ALT 10 Alkaline Phosphatase 77 Total Protein 7.3 Albumin 3.8 Urine Color Yellow Urine Appearance Clear Urine pH 6.0 Ur Specific [place]io 1.020 Urine Protein 300 H Urine Glucose (UA) Normal Urine Ketones Negative Urine Occult Blood Negative Urine Nitrite Negative Ur Leukocyte Esterase Negative Urine RBC 0-1 Urine WBC 1-2 Assessment/Plan (1) Knee pain, right: Qualifiers: Chronicity: chronic Qualified Code(s): M25.561 - Pain in right knee; G89.29 - Other chronic pain (2) Encounter for assessment of decision-making capacity: Plan Understanding: Patient does not seem to understand that his medical problems. Hehas short term memory problems. Appreciation: Patient cannot appreciate the severity of his medical condition edwige does not understand or recall anything about his medical problems. Patient lacks capacity at this time. May utilize next of Kin or apply for guardian. Monitor mental status. Documented By: William Williamson MD 4 1000 Signed By: <Electronically signed by William Williamson MD> 04/28/23 101[address] [facility] Work Phone: Consult note Author Hilary Rice [facility] April 29, 2023 4:57am Note Date/Time April 28, 2023 1:5 3pm [facility] [address] [place] [address] Orthopedic Consult Note Signed Patient: Hilary Maldonado MR#: [id number] : 1945 Acct:[id number] Age/Sex: 78 / M Adm Date: 4 Loc: Room: [address] [place] [address] Type: ADM INOo Attending Dr: Mariano Dennis DO Copies to: Tyree Ambrosio Jr, DO Hilary Thurman MD~ History of Present Illness HPI Consult date: 04/28/2023 Requesting provider: Mariano Dennis DO History of present illness: Patient is a 78-year-old male admitted due to difficulty functioning in daily life. Complaints of right knee pain. States the knee has been painful for manyyears. States he has undergone left total knee replacement in the past. Orthopedics consulted for evaluation right knee [facility] Medical History Dementia Parotid mass Gout Chronic pain Hyperlipemia HTN (hypertension) COPD (chronic obstructive pulmonary disease) Family History Family/Other Lung cancer Colon cancer Father Myocardial infarction Mother Breast cancer Family/Other Myocardial infarction Father 55 yrs Mother 92 yrs Social History Smoking Status: Former smoker Tobacco Type: cigarettes Substance Use Type: None Allergies & Medications Medications and Allergies Allergies No Known Allergies Allergy (Verified 04/27/23 13:08) Home Medications atorvastatin 10 mg tablet 10 mg PO QAM 03/02/18 [History Confirmed 04/27/23] vortioxetine 10 mg tablet 10 mg PO DAILY 03/02/18 [History Confirmed 03/24/23] mirtazapine 15 mg tablet 15 mg PO QHS 10/27/22 [History Confirmed 04/27/23] allopurinol 300 mg tablet 300 mg PO QAM 11/20/22 [History Confirmed 04/27/23] aripiprazole 5 mg tablet 5 mg PO QAM 12/19/22 [History Confirmed 03/24/23] carvedilol 3.125 mg tablet 3.125 mg PO BID.WITH.MEALS #0 tabs 12/22/22 [Rx Confirmed 03/24/23] tamsulosin 0.4 mg capsule 0.4 mg PO DAILY #0 caps 12/22/22 [Rx Confirmed 03/24/23] potassium chloride 20 mEq tablet,extended release 20 meq PO DAILY 02/28/23 [History Confirmed 03/24/23] acetaminophen 500 mg tablet 1,000 mg (2 x 500 mg) PO Q6H PRN Fever Or Pain #0 tabs 03/08/23 [Rx Confirmed 04/27/23] ascorbic acid (vitamin C) 500 mg tablet (Vitamin C) 500 mg PO BID.WITH.BFAST.LUNCH #0 tabs 03/08/23 [Rx Confirmed 03/24/23] aspirin 81 mg tablet,delayed release 81 mg PO DAILY #0 tabs 03/08/23 [Rx Confirmed 04/27/23] calcium carbonate 500 mg calcium (1,250 mg) tablet (Oyster Shell Calcium 500) 500 mg PO BID.WITH.BFAST.LUNCH #0 tabs 03/08/23 [Rx Confirmed 03/24/23] cholecalciferol (vitamin D3) 10 mcg (400 unit) tablet (Vitamin D3) 10 mcg PO BID.WITH.MEALS #0 tabs 03/08/23 [Rx Confirmed 03/24/23] docusate sodium 100 mg capsule 200 mg (2 x 100 mg) PO BID #0 caps 03/08/23 [Rx Confirmed 03/24/23] ferrous sulfate 324 mg (65 mg iron) tablet,delayed release 324 mg PO Q48HR #0 tabs 03/08/23 [Rx Confirmed 03/24/23] furosemide 40 mg tablet 40 mg PO BID@0800,1600 #0 tabs 03/08/23 [Rx Confirmed 03/24/23] multivitamin with folic acid 400 mcg tablet (Thera) 1 tab PO DAILY #0 tabs 03/08/23 [Rx Confirmed 03/24/23] pantoprazole 40 mg tablet,delayed release 40 mg PO DAILY #0 tabs 03/08/23 [Rx Confirmed 03/24/23] pregabalin 50 mg capsule (Lyrica) 50 mg PO TID 14 days #42 caps 03/08/23 [Rx Confirmed 04/27/23] trazodone 50 mg tablet 50 mg PO QHS PRN sleep #14 tabs 03/08/23 [Rx Confirmed 03/24/23] xqrfqve-chvxpwgfhmhhk-bqwcyjbw 2 tab PO BID PRN migraine 04/27/23 [History Confirmed 04/27/23] famotidine 40 mg tablet 40 mg PO DAILY 04/27/23 [History Confirmed 04/27/23] Exam Physical Exam Vital Signs: Temp Pulse Resp BP Pulse Ox O2 Del Method 97.5 F L 67 20 139/74 96 Room Air 04/28/23 08:00 04/28/23 08:00 04/28/23 08:00 04/28/23 08:00 04/28/23 08:00 04/28/23 08:00 Const General: cooperative and no acute distress HEENT Head: normal to inspection and atraumatic Neck Neck: normal visual inspection and full ROM Resp Effort & Inspection: normal respiratory effort and able to speak in complete sentences Extrem Other: Patient sitting up responding appropriately to questions. Difficult to obtain adequate history from him. Moving both upper extremities without difficulty. Stable shoulder elbow and wrist. Skin intact bilateral. Right knee: Small effusion noted about the right knee. No redness or warmth. No obvious evidence of infection. Patient is able to actively flex and stand without severe pain. Good quad tone. Calf and thigh are soft. No evidence of DVT. Varus deformity right knee. Medial joint line pain with palpation. Moving ankle on command Left knee demonstrates previous midline total knee incision. Nonpainful motion. Calf and thigh are soft Results - Orthopedics Lab Results 04/28/23 06:15 04/28/23 06:15 Labs: Laboratory Results - Last 48 hrs. 04/28/23 06:15: Corrected WBC 7.2, Uncorrected WBC Count 7.2, RBC 3.68 L, Hgb 11.8 L, Hct 35.6 L, MCV 96.8, MCH 32.0, MCHC 33.1, RDW 18.7 H, Plt Count 147 L, MPV 10.3 H, Neut % (Auto) 47.4, Lymph % (Auto) 31.0, [place] % (Auto) 13.8, Eos % (Auto) 7.4, Baso % (Auto) 0.4, Nucleat RBC Rel Count 0.1, Neut # (Auto) 3.4, Lymph # (Auto) 2.2, [place] # (Auto) 1.0 H, Eos # (Auto) 0.5 H, Baso # (Auto) 0.0, PT 13.5 H, INR 1.2, APTT 30.8, PHA Creatinine Clear 53.68, Sodium 139, Potassium3.9, Chloride 103, Carbon Dioxide 27.5, Anion Gap 12.4, BUN 20, Creatinine 1.34 H, Est GFR (CKD-EPI) 54.560, Glucose 104 H, Calcium 8.8, Phosphorus 3.4, Magnesium 1.8 L, Total Bilirubin 0.7, AST 15, ALT 10, Alkaline Phosphatase 77, Total Protein 7.3, Albumin 3.8, Globulin 3.5, Albumin/Globulin Ratio 1.1 04/27/23 23:30: Urine Color Yellow, Urine Appearance Clear, Urine pH 6.0, Ur Specific Clio 1.020, Urine Protein 300 H, Urine Glucose (UA) Normal, Urine Ketones Negative, Urine Occult Blood Negative, Urine Nitrite Negative, Urine Bilirubin Negative, Urine Urobilinogen Normal, Ur Leukocyte Esterase Negative, Urine RBC 0-1, Urine WBC 1-2, Ur Squamous Epith Cells 0-1, Urine Bacteria None seen, Hyaline Casts 0-8 04/27/23 20:49: Potassium 3.8 04/27/23 16:15: Corrected WBC 8.2, Uncorrected WBC Count 8.2, RBC 4.02, Hgb 12.7L, Hct 39.0, MCV 97.0, MCH 31.6, MCHC 32.6, RDW 18.7 H, Plt Count 157, MPV 10.0,Neut % (Auto) 62.4, Lymph % (Auto) 20.6, [place] % (Auto) 10.9, Eos % (Auto) 5.5, Baso % (Auto) 0.6, Nucleat RBC Rel Count 0.1, Neut # (Auto) 5.1, Lymph # (Auto) 1.7, [place] # (Auto) 0.9 H, Eos # (Auto) 0.4, Baso # (Auto) 0.1, Monocyte Dist Width 22.60 H, Platelet Estimate Normal, Plt Morphology Comment Normal, RBC Morphology N/A, Anisocytosis Slight, Potassium Cancelled 04/27/23 14:04: Corrected WBC Cancelled, Uncorrected WBC Count Cancelled, RBC Cancelled, Hgb Cancelled, Hct Cancelled, MCV Cancelled, MCH Cancelled, MCHC Cancelled, RDW Cancelled, Plt Count Cancelled, MPV Cancelled, Neut % (Auto) Cancelled, Lymph % (Auto) Cancelled, [place] % (Auto) Cancelled, Eos % (Auto) Cancelled, Baso % (Auto) Cancelled, Nucleat RBC Rel Count Cancelled, Neut # (Auto) Cancelled, Lymph # (Auto) Cancelled, [place] # (Auto) Cancelled, Eos # (Auto) Cancelled, Baso # (Auto) Cancelled, Monocyte Dist Width Cancelled, PHA Creatinine Clear 59.44, Sodium 140, Potassium , Chloride 103, Carbon Dioxide 29.4, Anion Gap , BUN 18, Creatinine 1.21, Est GFR (CKD-EPI) > 60.0, Glucose 145H, Calcium 9.3, Total Bilirubin 0.8, AST 21, ALT 12, Alkaline Phosphatase 70, Total Protein 8.1, Albumin 4.0, Globulin 4.1, Albumin/Globulin Ratio 1.0 H & H 04/27/23 04/27/23 04/28/23 Range/Units 14:04 16:15 06:15 Hgb Cancelled 12.7 L 11.8 L Hct Cancelled 39.0 35.6 L Coagulation 04/28/23 Range/Units 06:15 INR 1.2 All other labs are normal. Imaging & Diagnostic Results Imaging/Diagnostics: AP and lateral views of the right knee demonstrate severe medial compartment arthritis with varus deformity Assessment/Plan (1) Knee pain, right: Qualifiers: Chronicity: chronic Qualified Code(s): M25.561 - Pain in right knee; G89.29 - Other chronic pain Code(s): M25.561 - Pain in right knee Plan Patient has chronic severe degenerative arthritis right knee. At this point he does not appear to be a good candidate for total knee replacement. I would recommend cortisone injection and progressive ambulation as tolerated. We will perform injection this weekend for him. Activity as tolerated He can then follow in our office for discussion of potential total knee replacement on an elective basis Documented By: Hilary Rice MD 04/28/23 1355 Signed By: <Electronically signed by MD Hilary Rcie> 04/29/23 [facility] Work Phone: Discharge summary Author Dennis Camargo [facility] September 10, 2021 6:16pm Note Date/Time September 10, 2021 6:16 pm [facility] [address] [place] [address] Discharge Summary Signed Patient: Hilary Maldonado MR#: [id number] : 1945 Acct:[id number] Age/Sex: 76 / M Adm Date: 2 Loc: Room: [address] [place] [address]: Dennis Camargo DO Copies to: Tyree Ambrosio Jr, DO Dennis Camargo, ~ Providers Date of Discharge: 09/10/21 Discharging Provider: Dennis Camargo Primary Care Provider: Damian Ambrosio Consults: 09/10/21 08:19 Consult to Neurology Routine Discharge Diagnosis (1) Headache: (2) Cervicogenic headache: (3) Hypokalemia: (4) Hypomagnesemia: (5) Acute delirium: (6) ASHD (arteriosclerotic heart disease): (7) Thrombocytopenia: (8) Elevated liver enzymes: Final Diagnosis Final Discharge Diagnosis: as per list. Presentation to the emergency room with headache. Decision to monitor in the hospital because of elevated cardiac enzymes. In hospital development of acute delirium and agitation, likely related to hospital environment. Neurology finding of head pain likely due to history of cervical surgery lumbar surgery, causing chronic pain related to both. Headaches seem to be cervicogenic. Incidental finding of hypokalemia, hypomagnesemia and thrombocytopenia. Concerning for severe alcohol abuse with progressive liver disease or perhaps bone marrow problem. These problems can be further worked up in the outpatient setting. Summary Hospital Course Hospital course: This is a 76-year-old man who originally presented to emergency room because of a headache. They treated this with oral oxycodone in the emergency room. They check some cardiac enzymes and these were elevated so he was placed in the hospital for observation. Immediately after being moved to his room he became combative and was not able to be consolable. He could not be redirected. Haldol was tried but did not seem to be effective. Then he was given some Versed and this did cause him to calm down and rest for a while. He does have a history of atherosclerotic heart disease and follows with a global creative chairman outside of her region. When he was awake and conversant he completely denied any chest pain or angina or any shortness of breath. His EKGsdid not show any acute ST or T wave changes. Troponin originally was 42 and then anant to 60 and then 83 and then 115. Despite that his follow-up EKGs did not reveal any acute changes and he had no abnormalities on telemetry and he remains symptom-free in terms of any angina or cardiac type chest pain. This elevation in troponin is probably related to his agitation and physiologic stress because he was agitated and required restraints. Neurology was consulted. CT scan of the head was unrevealing. They felt that his headaches are likely cervicogenic. He can have additional work-up on outpatient basis. Neurology felt that he was appropriate for discharge to avoidany further agitation or need for restraints which were actually only accelerating the problems. Other lab abnormalities were noted which would be advised to be [facility]: Alkaline phosphatase was high at 130 but ALT was normal at 37. Magnesium was low at 1.4. Potassium was low at 3.3, and he has a mild anemia with hemoglobin of 12.0 and MCV high at 101.8 and platelets low at 52 raising concern for possible liver disease or bone marrow disorder or both. TSHwas normal at 1.68, folate was normal at 1.6, vitamin B12 was normal at 239, andvitamin D was only mildly low at 23.8. Testing for thiamine and vitamin C have results that are still pending. Condition Condition at Discharge: Stable Status at Discharge Functional status at discharge: independent ambulation Overall status at discharge: patient is progressing back to baseline Time Spent with Patient Time spent providing/coordinating discharge services (# min): 44 Diagnostic Studies Completed and Pending Studies Pending studies at discharge: 09/10/21 07:47 EKG [ECG 12 lead ECG] Routine Phosphatidylethanol Routine Vitamin B1 (Thiamine) Blood Routine Vitamin C Routine 09/10/21 10:00 EKG [ECG 12 lead ECG] Timed Labs on day of discharge: 09/10/21 10:54: Ammonia 16 09/10/21 10:05: C-Reactive Prot, Quant < 0.5 09/10/21 10:05: 25-OH Vitamin D Total 23.8 L 09/10/21 10:05: Troponin I High Sens 115 H* 09/10/21 04:33: ESR 10 09/10/21 04:33: Vitamin B12 339, Folate 11.6, Free T4 0.90, TSH 3rd Generation 1.68 09/10/21 04:33: Estimat Average Glucose 111, Hemoglobin A1c 5.5 09/10/21 04:33: PHA Creatinine Clear 63.43, Sodium 139, Potassium 3.3 L, Chloride 106, Carbon Dioxide 24.9, BUN 15, Creatinine 1.17, Est GFR ( Amer) > 60, Est GFR (Non-Af Amer) > 60, Glucose 98, Calcium 8.7, Magnesium 1.4 L, Triglycerides 73, Cholesterol 100 L, LDL Cholesterol, Calc 59, VLDL Cholesterol 14, HDL Cholesterol 26 L, Cholesterol/HDL Ratio 3.8 09/10/21 04:33: Corrected WBC 4.3, Uncorrected WBC Count 4.3 L, RBC 3.56 L, Hgb 12.0 L, Hct 36.2 L, MCV 101.8 H, MCH 33.8, MCHC 33.2, RDW 15.2 H, Plt Count 52 L, MPV 11.2 H, Neut % (Auto) 52.7, Lymph % (Auto) 33.2, [place] % (Auto) 7.3, Eos %(Auto) 6.2, Baso % (Auto) 0.6, Neut # (Auto) 2.3, Lymph # (Auto) 1.4, [place] # (Auto) 0.3, Eos # (Auto) 0.3, Baso # (Auto) 0.0, Nucleated RBC % (auto) 0.3, Platelet Estimate Decreased L, Plt Morphology Comment Normal, RBC Morphology N/A, Macrocytosis Slight 09/10/21 04:33: Troponin I High Sens 83 H* 09/10/21 01:11: Troponin I High Sens 60 H* 09/10/21 01:00: SARS-CoV-2 Rap RNA(RT-PCR) Negative 09/09/21 23:55: SARS Antigen (LFIA) Negative 09/09/21 23:52: Urine Color Yellow, Urine Appearance Clear, Urine pH 6.0, Ur Specific [place] 1.020, Urine Protein Trace H, Urine Glucose (UA) Normal, Urine Ketones Negative, Urine Occult Blood Negative, Urine Nitrite Negative, Urine Bilirubin Negative, Urine Urobilinogen Normal, Ur Leukocyte Esterase Negative, Urine RBC 0-1, Urine WBC 1-2, Ur Squamous Epith Cells 1-2, Urine Bacteria None seen, Hyaline Casts 0-8 09/09/21 23:14: B-Natriuretic Peptide 262.0 H 09/09/21 23:14: Troponin I High Sens 42 H 09/09/21 23:14: PHA Creatinine Clear 57.98, Sodium 139, Potassium 3.6, Chloride 104, Carbon Dioxide 26.7, BUN 15, Creatinine 1.28 H, Est GFR ( Amer) > 60, Est GFR (Non-Af Amer) 55, Glucose 93, Calcium 8.8, Total Bilirubin 0.8, AST 75 H, ALT 37, Alkaline Phosphatase 130 H, Total Protein 6.6, Albumin 3.4, Globulin 3.2, Albumin/Globulin Ratio 1.1 09/09/21 23:14: Corrected WBC 4.4, Uncorrected WBC Count 4.4 L, RBC 3.73 L, Hgb 12.5 L, Hct 38.2 L, MCV 102.5 H, MCH 33.7, MCHC 32.9, RDW 15.3 H, Plt Count 62 L, MPV 11.6 H, Neut % (Auto) 42.0, Lymph % (Auto) 44.2, [place] % (Auto) 7.3, Eos %(Auto) 6.0, Baso % (Auto) 0.5, Neut # (Auto) 1.9, Lymph # (Auto) 2.0, [place] # (Auto) 0.3, Eos # (Auto) 0.3, Baso # (Auto) 0.0, Nucleated RBC % (auto) 0.2 Exam Physical Exam Vital Signs: Temp Pulse Resp BP Pulse Ox O2 Del Method 97.6 F 54 L 20 164/75 H 98 Room Air 09/10/21 11:02 09/10/21 11:02 09/10/21 11:02 09/10/21 11:02 09/10/21 11:02 09/10/21 11:02 Discharge Plan Discharge Plan Patient Disposition: Home Activity: No Activity Restriction Diet: Regular Prescriptions: Continued colchicine 0.6 mg tablet 0.6 mg PO DAILY allopurinol 300 mg tablet 300 mg PO DAILY celecoxib 200 mg capsule 200 mg PO DAILY Label Comments: atorvastatin 10 mg tablet 10 mg PO HS Label Comments: hydrochlorothiazide 12.5 mg capsule 12.5 mg PO DAILY Label Comments: vortioxetine 10 mg tablet 10 mg PO DAILY Label Comments: aspirin [Aspir-81] 81 mg Tablet,Delayed Release (Dr/Ec) 81 mg PO DAILY famotidine 40 mg Tablet 40 mg PO DAILY pregabalin [Lyrica] 100 mg Capsule 100 mg PO TID morphine 15 mg tablet extended release 15 mg PO BID Label Comments: TAKE 1 TABLET BY MOUTH TWICE A DAY DIRECTED docusate sodium [DOK] 100 mg Capsule 100 mg PO BID PRN (Reason: Constipation) 30 Days Qty: 60 0RF Follow Up: Damian Ambrosio DO [Primary Care Provider] - ([facility] office on Monday to schedule follow-up with your Primary Care Provider in 3-5 days. ) Anil Chun DO [Courtesy/Consulting Physician] - (Neurology will arrange outpatient follow-up appointment after discharge) Documented By: Dennis Camargo DO [id number] Signed By: <Electronically signed by Dennis Camargo DO> 09/10/211815 [facility] Work Phone: Discharge summary Author Pedro Luis Frye [facility] October 30, 2022 11:00am Note Date/Time October 30, 2022 11:00am [facility] [address] [place], [place] [id number] Discharge Summary Signed Patient: Hilary Maldonado MR#: [id number] : 1945 Acct:[id number] Age/Sex: 77 / M Adm Date: 3 Loc: 3T Room: 4K3842-[address]: Pedro Luis Frye MD Copies to: Tyree Ambrosio Jr, DO Pedro Luis Frye MD~ Providers Date of Discharge: 10/30/22 Discharging Provider: Pedro Luis Frye Primary Care Provider: Damian Ambrosio Consults: 10/27/22 00:17 Consult to Orthopedic Surgery Routine Consult to Occupational Therapy Routine Consult to Physical Therapy Routine 10/28/22 10:46 Consult to Physiatry Routine 10/28/22 15:03 Consult to Psychiatry Routine Discharge Diagnosis (1) Effusion of right knee: (2) Frequent falls: (3) Generalized weakness: (4) Chronic pain: (5) Thrombocytopenia: (6) HTN (hypertension): (7) Inability to ambulate due to knee: (8) Impaired mobility and ADLs: (9) BRANDI (acute kidney injury): (10) Acute gout: Final Diagnosis Final Discharge Diagnosis: As above Summary Hospital Course Hospital course: Patient is a 77-year-old male with past medical history of gout, hypertension and other medical comorbidities. Presented to ER with complaint of significant right knee pain with swelling and difficulty ambulation. X-ray of the knee showed large knee effusion with degenerative changes. Given significant swelling and pain patient was admitted and orthopedic was consulted. Impressionwas likely acute gout flare leading to joint pain and effusion. Knee aspiration was discussed with the patient which he refused. Initially started on IV Toradol and colchicine but developed renal failure and was discontinued. He wasstarted on prednisone with significant improvement in symptoms. Right knee swelling and tenderness has significantly improved and patient has been able to ambulate. Remained afebrile without leukocytosis and CRP trending down. Currently no concern for infection and symptoms likely from acute gout flare. Initially there was concern for capacity and psych was consulted patient has capacity to make decision. Mentation has significantly improved and has been more compliant and cooperative. Patient is very hard of hearing and was scheduled to follow-up with ENT which he missed and will be rescheduled by his sister. Given his improved symptoms patient will be discharged home as he is refusing to go to detention facility. Discussed with the patient regarding compliance with medication. He will be discharged on tapering prednisone recommend follow-up BMP in 1 week to follow-up renal function. Condition Condition at Discharge: Stable Status at Discharge Functional status at discharge: independent ambulation Time Spent with Patient Time spent providing/coordinating discharge services (# min): 38 Diagnostic Studies Completed and Pending Studies Labs on day of discharge: 10/30/22 09:14: PHA Creatinine Clear 57.08, Sodium 140, Potassium 4.3, Chloride 106, Carbon Dioxide 30.1, Anion Gap 8.2, BUN 37 H, Creatinine 1.28, Est GFR (CKD-EPI) 58.003, Glucose 133 H, Calcium 8.8, C-Reactive Prot, Quant 4.6 H Exam Physical Exam Vital Signs: Temp Pulse Resp BP Pulse Ox O2 Del Method 97.2 F L 65 16 160/88 H 96 Room Air 10/30/22 07:58 10/30/22 07:58 10/30/22 07:58 10/30/22 07:58 10/30/22 07:58 10/30/22 07:58 Const Orientation: alert, awake and oriented x3 Resp Effort & Inspection: normal respiratory effort and able to speak in complete sentences Auscultation: no rales, no rhonchi and no wheezes Cardio Rate: regular rate Rhythm: regular rhythm Heart Sounds: S1 normal and S2 normal GI Palpation: soft, not firm, no guarding and nontender Neuro General: patient alert, patient awake, patient oriented x3, moves all extremities, no focal motor deficits and CN's II-XI intact bilaterally Cranial Nerves: CN's II-XII intact bilaterally Cognition: normal cognition Motor: muscle tone normal throughout and strength 5/5 throughout Sensory Exam: no sensory deficits noted Extrem Other: Right knee has significantly improved with good range of motion. Discharge Plan Discharge Plan Activity: Ambulate as Tolerated Diet: Regular Prescriptions: New prednisone 20 mg Tablet 40 mg PO DAILY 15 Days Qty: 30 0RF Rx Instructions: 40 mg daily for 5 days then 20 mg daily for 5 days and then 10 mg daily for 5days. Continued colchicine (gout) 0.6 mg tablet 1.2 mg PO DAILY allopurinol 300 mg tablet 300 mg PO DAILY verapamil 40 mg tablet 40 mg PO DAILY Patient Comments: TAKE 1 TABLET BY MOUTH EVERY DAY IN THE MORNING mirtazapine 15 mg tablet 15 mg PO HS celecoxib 200 mg capsule 200 mg PO DAILY Patient Comments: atorvastatin 10 mg tablet 10 mg PO HS Patient Comments: vortioxetine 10 mg tablet 10 mg PO DAILY Patient Comments: aspirin [Aspir-81] 81 mg Tablet,Delayed Release (Dr/Ec) 81 mg PO DAILY famotidine 40 mg Tablet 40 mg PO DAILY pregabalin [Lyrica] 100 mg Capsule 100 mg PO TID morphine [MS Contin] 15 mg tablet extended release 15 mg PO BID PRN (Reason: Pain) Patient Comments: TAKE 1 TABLET BY MOUTH TWICE A DAY DIRECTED docusate sodium [DOK] 100 mg Capsule 100 mg PO BID PRN (Reason: Constipation) 30 Days Qty: 60 0RF Other Ambulatory Orders: Basic Metabolic Panel (Routine) Timeframe: 8 Days Location: Determined by Patient Ordered By: Pedro Luis Frye Documented By: Pedro Luis Frye MD 10/30/22 1048 Signed By: <Electronically signed by Pedro Luis Frye MD> 10/30/22 1100 [facility] Work Phone: evaluation note* Diagnosis Onset Date Resolution Status Acute delirium acute ASHD (arteriosclerotic heart disease) acute Elevated troponin acute Headache acute Hypokalemia acute Hypomagnesemia acute Thrombocytopenia acute [facility] Work Phone: evaluation noteNo assessment information available [facility] Work Phone: evaluation note* Diagnosis Onset Date Resolution Status Chronic pain acute Effusion of right knee acute Frequent falls acute Generalized weakness acute Gout acute HTN (hypertension) acute Impaired mobility and ADLs a cute Inability to ambulate due to knee acute Thrombocytopenia acute [facility] Work Phone: evaluation note* Diagnosis Onset Date Resolution Status Chronic pain acute Effusion of right knee acute Encounter for assessment of healthcare decision-making capacity acute Frequent falls acute Generalized weakness acute Gout acute HTN (hypertension) acute Impaired mobility and ADLs a cute Inability to ambulate due to knee acute Thrombocytopenia acute [facility] Work Phone: evaluation note* Diagnosis Onset Date Resolution Status Chronic pain acute Effusion of right knee acute Encounter for assessment of healthcare decision-making capacity acute Frequent falls acute Generalized weakness acute Gout acute HTN (hypertension) acute Impaired mobility and ADLs a cute Inability to ambulate due to knee acute Thrombocytopenia acute Confusion acute Generalized weakness acute Impaired mobility and ADLs a cute Inability to ambulate due to knee acute Unable to care for self acut e [facility] Work Phone: Evaluation note* Diagnosis Onset Date Resolution Status Chronic pain acute Encounter for assessment of healthcare decision-making capacity acute Generalized weakness acute Gout acute HTN (hypertension) acute Impaired mobility and ADLs a cute Inability to ambulate due to knee acute Thrombocytopenia acute Confusion acute COVID-19 acute Encephalopathy acute Generalized weakness acute Gout acute HTN (hypertension) acute Impaired mobility and ADLs a cute Inability to ambulate due to knee acute Unable to care for self acut e [facility] Work Phone: Evaluation note* Diagnosis Onset Date Resolution Status Chronic pain acute Encounter for assessment of healthcare decision-making capacity acute Generalized weakness acute Gout acute HTN (hypertension) acute Impaired mobility and ADLs a cute Inability to ambulate due to knee acute Thrombocytopenia acute Confusion acute COVID-19 acute Encephalopathy acute Generalized weakness acute Gout acute HTN (hypertension) acute Impaired mobility and ADLs a cute Inability to ambulate due to knee acute Unable to care for self acut e Acute encephalopathy acute Acute knee pain acute Acute UTI acute Altered mental status acute Fall acute Volume depletion acute [facility] Work Phone: Evaluation note* Diagnosis Onset Date Resolution Status Chronic pain acute Encounter for assessment of healthcare decision-making capacity acute Generalized weakness acute Gout acute HTN (hypertension) acute Impaired mobility and ADLs a cute Inability to ambulate due to knee acute Thrombocytopenia acute Confusion acute COVID-19 acute Encephalopathy acute Generalized weakness acute Gout acute HTN (hypertension) acute Impaired mobility and ADLs a cute Inability to ambulate due to knee acute Unable to care for self acut e Acute encephalopathy acute Acute knee pain acute Acute UTI acute Altered mental status acute Fall acute Volume depletion acute Altered mental status acute Elevated troponin acute [facility] Work Phone: Evaluation note* Diagnosis Onset Date Resolution Status Chronic pain acute Encounter for assessment of healthcare decision-making capacity acute Generalized weakness acute Gout acute HTN (hypertension) acute Impaired mobility and ADLs a cute Inability to ambulate due to knee acute Thrombocytopenia acute Confusion acute COVID-19 acute Encephalopathy acute Generalized weakness acute Gout acute HTN (hypertension) acute Impaired mobility and ADLs a cute Inability to ambulate due to knee acute Unable to care for self acut e Acute encephalopathy acute Acute knee pain acute Acute UTI acute Altered mental status acute Fall acute Volume depletion acute Altered mental status acute Carotid artery disease acute Elevated troponin acute [facility] Work Phone: Evaluation note* Diagnosis Onset Date Resolution Status Chronic pain acute Encounter for assessment of healthcare decision-making capacity acute Generalized weakness acute Gout acute HTN (hypertension) acute Impaired mobility and ADLs a cute Inability to ambulate due to knee acute Thrombocytopenia acute Confusion acute COVID-19 acute Encephalopathy acute Generalized weakness acute Gout acute HTN (hypertension) acute Impaired mobility and ADLs a cute Inability to ambulate due to knee acute Unable to care for self acut e Acute encephalopathy acute Acute knee pain acute Acute UTI acute Altered mental status acute Fall acute Volume depletion acute Altered mental status acute Carotid artery disease acute Elevated troponin acute Parotid mass acute [facility] Work Phone: Evaluation note* Diagnosis Syncope and collapse- Primary Two-vessel coronary artery disease Ischemic cardiomyopathy Other specified forms of chronic ischemic heart disease Carotid stenosis, right Occlusion and stenosis of carotid artery without mention of cerebral infarction Pre-operative cardiovascular examination Shortness of breath Mixed hyperlipidemia documented in this encounter [facility] Work Phone: Evaluation note* Diagnosis Mass of left parotid gland- Primary Carotid stenosis, right Occlusion and stenosis of carotid artery without mention of cerebral infarction Mass of left parotid gland documented in this encounter [facility] Work Phone: Evaluation note* Diagnosis Mass of left parotid gland- Primary Carotid stenosis, right Occlusion and stenosis of carotid artery without mention of cerebral infarction Mass of left parotid gland documented in this encounter [facility] Work Phone: Evaluation note* Diagnosis Onset Date Resolution Status Altered mental status acute Carotid artery disease acute Elevated troponin acute Parotid mass acute [facility] Work Phone: Evaluation note* Diagnosis Onset Date Resolution Status Altered mental status acute Carotid artery disease acute Elevated troponin acute Parotid mass acute Acute exacerbation of CHF (congestive heart failure) acute Acute on chronic systolic (congestive) heart failure acute BRANDI (acute kidney injury) ac rampart Anemia acute Carotid artery disease acute Encounter for assessment of healthcare decision-making capacity acute Generalized weakness acute Gout acute HTN (hypertension) acute Impaired mobility and ADLs a cute Inability to walk acute 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 Occipital stroke acute Parotid mass acute Proteinuria acute Unable to care for self acut e [facility] Work Phone: Evaluation note* Diagnosis Carotid stenosis, right- Primary Occlusion and stenosis of carotid artery without mention of cerebral infarction documented in this encounter [facility] Work Phone: Evaluation note* Diagnosis Onset Date Resolution Status Acute on chronic systolic (congestive) heart failure acute BRANDI (acute kidney injury) ac rampart Anemia acute Carotid artery disease acute Encounter for assessment of healthcare decision-making capacity acute HTN (hypertension) acute Impaired mobility and ADLs a cute Inability to walk acute 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 Occipital stroke acute Parotid mass acute Proteinuria acute Unable to care for self acut e Acute exacerbation of CHF (congestive heart failure) resolved Parotid mass acute Parotid mass acute [facility] Work Phone: Evaluation note* Diagnosis Onset Date Resolution Status Acute on chronic systolic (congestive) heart failure acute BRANDI (acute kidney injury) ac rampart Anemia acute Carotid artery disease acute Encounter for assessment of healthcare decision-making capacity acute HTN (hypertension) acute Impaired mobility and ADLs a cute Inability to walk acute 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 Occipital stroke acute Parotid mass acute Proteinuria acute Unable to care for self acut e Acute exacerbation of CHF (congestive heart failure) resolved Parotid mass acute Parotid mass acute Confusion acute Knee pain, right acute Unable to care for self acut e [facility] Work Phone: Evaluation note* Diagnosis Onset Date Resolution Status Acute on chronic systolic (congestive) heart failure acute BRANDI (acute kidney injury) ac rampart Anemia acute Carotid artery disease acute Encounter for assessment of healthcare decision-making capacity acute HTN (hypertension) acute Impaired mobility and ADLs a cute Inability to walk acute 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 Occipital stroke acute Parotid mass acute Proteinuria acute Unable to care for self acut e Acute exacerbation of CHF (congestive heart failure) resolved Parotid mass acute Parotid mass acute Confusion acute Encounter for assessment of decision-making capacity acute Knee pain, right acute Unable to care for self acut e [facility] Work Phone: Evaluation note* Diagnosis Malignant neoplasm of parotid gland (Multi)- 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 (Multi) Malignant neoplasm of parotid gland HTN (hypertension) Unspecified essential hypertension Chronic renal impairment, stage 3 (moderate) (Multi) Benign prostatic hyperplasia without lower urinary tract symptoms Parotid mass Swelling, mass, or lump in head and neck documented in this encounter [facility] Work Phone: Evaluation note* Diagnosis 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 documented in this encounter [facility] Work Phone: Evaluation note* Diagnosis Malignant neoplasm of parotid gland (Multi)- 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 (Multi)- Primary Malignant neoplasm of parotid gland documented in this encounter [facility] Work Phone: Evaluation note* Diagnosis Malignant neoplasm of parotid gland (Multi)- Primary Malignant neoplasm of parotid gland Two-vessel coronary artery disease- Primary Mixed hyperlipidemia Ischemic cardiomyopathy Other specified forms of chronic ischemic heart disease Carotid stenosis, right Occlusion and stenosis of carotid artery without mention of cerebral infarction Pre-operative cardiovascular examination Shortness of breath Former smoker Personal history of tobacco use, presenting hazards to health Malignant neoplasm of parotid gland (Multi) Malignant neoplasm of parotid gland documented in this encounter [facility] Work Phone: Evaluation note* Diagnosis Adult failure to thrive- Primary Altered mental status, unspecified altered mental status type Chronic obstructive pulmonary disease, unspecified COPD type (CMS/HCC) Essential hypertension (CMS/HCC) Unspecified essential hypertension Ischemic cardiomyopathy (CMS/HCC) Other specified forms of chronic ischemic heart disease Mixed hyperlipidemia (CMS/HCC) Mixed hyperlipidemia Two-vessel coronary artery disease (CMS/HCC) Primary osteoarthritis of right knee Mass of left parotid gland Edema, unspecified type Chronic gout without tophus, unspecified cause, unspecified site Prostate cancer screening Special screening for malignant neoplasm of prostate Peripheral vascular disease (CMS/HCC) Unspecified peripheral vascular disease documented in this encounter [facility]* Diagnosis Routine general medical examination at health care facility- Primary Routine general medical examination at a health care facility 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) Chronic obstructive pulmonary disease, unspecified COPD type (CMS/HCC) Essential hypertension (CMS/HCC) Unspecified essential hypertension Impaired mobility and ADLs Mixed hyperlipidemia (CMS/HCC) Mixed hyperlipidemia documented in this encounter [facility]* Diagnosis 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[facility])- Primary Malignant neoplasm of salivary gland, unspecified 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, with anxiety (CMS-HCC) Chronic obstructive pulmonary disease, unspecified COPD type (CMS-HCC) [facility] Diagnosis 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 Malignant neoplasm of salivary gland, unspecified Degenerative disease of nervous system (CMS-HCC) Hypertension, essential Unspecified essential hypertension [facility] Diagnosis 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 documented in this encounter [facility] Work Phone: Evaluation note* Diagnosis Chronic obstructive pulmonary disease, unspecified COPD type ([facility])- Primary 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, with anxiety ([facility]) Adult failure to thrive Atherosclerosis of [place] coronary artery of [place] heart without angina pectoris Polyarthritis Unspecified polyarthropathy or polyarthritis, site unspecified Hypertension, essential Unspecified essential hypertension Degenerative disease of nervous system ([facility]) Encephalopathy, unspecified Ischemic cardiomyopathy Other specified forms of chronic ischemic heart disease Other diseases of salivary glands Primary osteoarthritis of both knees Gastroesophageal reflux disease without esophagitis Esophageal reflux Hyperlipidemia, unspecified hyperlipidemia type Generalized anxiety disorder Allergic rhinitis, unspecified seasonality, unspecified trigger Dysphagia, unspecified type Nicotine dependence, cigarettes, uncomplicated Peripheral vascular disease, unspecified ([facility]) Peripheral vascular disease, unspecified Occlusion and stenosis of right carotid artery Major depressive disorder, single episode, severe without psychotic features ([facility]) Gout, unspecified cause, unspecified chronicity, unspecified site Insomnia, unspecified type [facility] Diagnosis Parotid mass- Primary Swelling, mass, or lump in head and neck 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, with anxiety ([facility]) Encephalopathy, unspecified type [facility] Diagnosis Encephalopathy, unspecified type- Primary Generalized anxiety disorder Adult failure to thrive Chronic obstructive pulmonary disease, unspecified COPD type ([facility]) Hypertension, essential Unspecified essential hypertension [facility] Diagnosis Parotid mass- Primary Swelling, mass, or lump in head and neck 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, with anxiety ([facility]) Primary osteoarthritis of both knees [facility] Diagnosis Parotid mass- Primary Swelling, mass, or lump in head and neck 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, with anxiety ([facility]) Gastroesophageal reflux disease without esophagitis Esophageal reflux Anxiety Anxiety state, unspecified Anemia, unspecified type Adult failure to thrive Hypertension, essential Unspecified essential hypertension [facility] Diagnosis Wound of right foot- Primary Degenerative disease of nervous system ([facility]) Peripheral vascular disease, unspecified ([facility]) Peripheral vascular disease, unspecified Hypertension, essential Unspecified essential hypertension documented in this encounter [facility]* Diagnosis Multiple open wounds of right lower leg- Primary Peripheral vascular disease, unspecified Ischemic cardiomyopathy Other specified forms of chronic ischemic heart disease Hypertension, essential Unspecified essential hypertension 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, with anxiety ([facility]) documented in this encounter [facility]* Diagnosis Multiple open wounds of right lower leg- Primary Polyarthritis Unspecified polyarthropathy or polyarthritis, site unspecified 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, with anxiety ([facility]) Hypertension, essential Unspecified essential hypertension documented in this encounter [facility]* Diagnosis Malignant neoplasm of parotid gland (Multi)- Primary Malignant neoplasm of parotid gland Impacted cerumen of left ear Impacted cerumen documented in this encounter [facility] Work Phone: Evaluation note* Diagnosis Multiple open wounds of right lower leg- Primary Wound of right foot 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, with anxiety ([facility]) Hypertension, essential Unspecified essential hypertension documented in this encounter [facility]* Diagnosis Wound of right foot- Primary Primary osteoarthritis of both knees 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, with anxiety ([facility]) Chronic obstructive pulmonary disease, unspecified COPD type ([facility]) Atherosclerosis of [place] coronary artery of [place] heart without angina pectoris [facility] Diagnosis Malignant neoplasm of parotid gland (Multi)- Primary Malignant neoplasm of parotid gland documented in this encounter [facility] Work Phone: Evaluation note* Diagnosis 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, with anxiety ([facility])- Primary Hypertension, essential Unspecified essential hypertension Peripheral vascular disease, unspecified Wound of right foot documented [facility] Diagnosis Two-vessel coronary artery disease- Primary Mixed hyperlipidemia Ischemic cardiomyopathy Other specified forms of chronic ischemic heart disease Primary hypertension Unspecified essential hypertension Carotid stenosis, right Occlusion and stenosis of carotid artery without mention of cerebral infarction Shortness of breath Bilateral carotid artery stenosis Occlusion and stenosis of carotid artery without mention of cerebral infarction Right sided weakness Edema of right lower extremity documented in this encounter [facility] Work Phone: History and physical note Author Andrea Major [facility] September 10, 2021 4:05am Note Date/Time September 10, 2021 3:50 am [facility] [address] [place] [address] Hospitalist H&P Signed Patient: Hilary Maldonado MR#: [id number] : 1945 Acct:[id number] Age/Sex: 76 / M Adm Date: 2 Loc: Room: [address] [place] [address] Type: ADM IN Attending Dr: Andrea Corea MD Copies to: Tyree Ambrosio Jr, DO Andrea Corea MD~ HPI DATE OF EXAMINATION: 09/10/21 CHIEF COMPLAINT: headache HISTORY OF PRESENT ILLNESS: Patient is a 76-year-old male with chronic back pain on morphine/hypertension/hyperlipidemia and gout who was brought into the hospital by his sister due to frontal headache that he usually gets and responds to Tylenol but did not respond to Tylenol or ibuprofen today, the patient was givena shot of morphine and had a CT scan of the head which was negative and the painsubsided after the morphine however troponin came back mildly elevated at 42 andthe second 1 was 67 for which the patient is staying here for observation, on myencounter the patient was in bed and seemed to be in distress denied having any chest pain/shortness of breath/lightheadedness, EKG was normal sinus rhythm withincomplete right bundle and no concerning changes Review of Systems Review of Systems All other systems reviewed & are negative unless noted below or in HPI PMFSH Vaccinated for COVID-19?: Yes Medical History (Updated 09/10/21 @ 03:06 by Tomas Bradley DO) Chronic pain COPD (chronic obstructive pulmonary disease) HTN (hypertension) Hyperlipemia Family History (Updated 08/08/19 @ 21:22 by Poonam Alba RN) Family/Other Pancreatic cancer Father Myocardial infarct Social History Smoking Status: Current every day smoker Tobacco Type: cigarettes Substance Use Type: None Meds Medications and Allergies Allergies No Known Allergies Allergy (Verified 09/09/21 19:39) Home Medications atorvastatin 10 mg tablet 10 mg PO HS 03/02/18 [History Confirmed 09/10/21] celecoxib 200 mg capsule 200 mg PO DAILY 03/02/18 [History Confirmed 09/10/21] hydrochlorothiazide 12.5 mg capsule 12.5 mg PO DAILY 03/02/18 [History Confirmed 09/10/21] vortioxetine 10 mg tablet 10 mg PO DAILY 03/02/18 [History Confirmed 09/10/21] aspirin 81 mg tablet,delayed release (Aspir-) 81 mg PO DAILY 08/08/19 [History Confirmed 08/08/19] famotidine 40 mg tablet 40 mg PO DAILY 08/08/19 [History Confirmed 09/10/21] morphine 15 mg tablet,extended release 15 mg PO BID 08/08/19 [History Confirmed 09/10/21] pregabalin 100 mg capsule (Lyrica) 100 mg PO TID 08/08/19 [History Confirmed 08/08/19] docusate sodium 100 mg capsule (DOK) 100 mg PO BID PRN Constipation 30 days #60 caps 08/09/19 [Rx Confirmed 09/10/21] allopurinol 300 mg tablet 300 mg PO DAILY 09/10/21 [History Confirmed 09/10/21] colchicine 0.6 mg tablet 0.6 mg PO DAILY 09/10/21 [History Confirmed 09/10/21] Exam Physical Exam Vital Signs: Temp Pulse Resp BP Pulse Ox O2 Del Method 97.0 F L 56 L 16 122/69 98 Room Air 09/10/21 02:18 09/10/21 02:18 09/10/21 02:18 09/10/21 02:18 09/10/21 02:18 09/10/21 02:18 Narrative: General: patient is alert and oriented HEENT: head atraumatic, normocephalic, moist mucous membranes, normal nose and ears, no throat lesions, normal conjunctiva Neck: supple no masses, no lymphadenopathy CVS: regular rate and rhythm, no murmurs or gallops Respiratory: clear to auscultation bilaterally, no wheezing or crackles, symmetric expansion GI: soft, nondistended, nontender, positive bowel sounds with no organomegaly Extremity: moves all extremities, no restrictions of movements, no calf tenderness, no edema Neuro: alert and oriented x3, normal speech, normal motor function Skin: dry, intact no rashes or lesions Results Lab Results Labs: Laboratory Last Values Corrected WBC 4.4 X10E3/uL (4.1-10.5) 09/09/21 23:14 Uncorrected WBC Count 4.4 x10E3/uL (4.5-11.0) L 09/09/21 23:14 RBC 3.73 x10E6/uL (3.90-5.60) L 09/09/21 23:14 Hgb 12.5 g/dL (13.0-17.0) L 09/09/21 23:14 Hct 38.2 % (38.8-50.0) L 09/09/21 23:14 MCV 102.5 fl (83.5-101) H 09/09/21 23:14 MCH 33.7 pg (27.5-35.2) 09/09/21 23:14 MCHC 32.9 g/dL (32.5-35.6) 09/09/21 23:14 RDW 15.3 % (12.0-14.8) H 09/09/21 23:14 Plt Count 62 x10E3/uL (150-450) L 09/09/21 23:14 MPV 11.6 fl (6.6-10.1) H 09/09/21 23:14 Neut % (Auto) 42.0 % (.) 09/09/21 23:14 Lymph % (Auto) 44.2 % (.) 09/09/21 23:14 [place] % (Auto) 7.3 % (.) 09/09/21 23:14 Eos % (Auto) 6.0 % (.) 09/09/21 23:14 Baso % (Auto) 0.5 % (.) 09/09/21 23:14 Neut # (Auto) 1.9 x10E3/uL (1.8-7.7) 09/09/21 23:14 Lymph # (Auto) 2.0 x10E3/uL (1.00-4.8) 09/09/21 23:14 [place] # (Auto) 0.3 x10E3/uL (0.0-0.8) 09/09/21 23:14 Eos # (Auto) 0.3 x10E3/uL (0.0-0.45) 09/09/21 23:14 Baso # (Auto) 0.0 x10E3/uL (0.0-0.2) 09/09/21 23:14 Nucleated RBC % (auto) 0.2 % (0-0.5) 09/09/21 23:14 PHA Creatinine Clear 57.98 09/09/21 23:14 Sodium 139 mmol/L (136-146) 09/09/21 23:14 Potassium 3.6 mmol/L (3.5-5.1) 09/09/21 23:14 Chloride 104 mmol/L (95-114) 09/09/21 23:14 Carbon Dioxide 26.7 mmol/L (22.0-30.0) 09/09/21 23:14 BUN 15 mg/dL (9-23) 09/09/21 23:14 Creatinine 1.28 mg/dL (0.64-1.27) H 09/09/21 23:14 Est GFR ( Amer) > 60 mL/Min 09/09/21 23:14 Est GFR (Non-Af Amer) 55 mL/Min 09/09/21 23:14 Glucose 93 mg/dL (70-100) 09/09/21 23:14 Calcium 8.8 mg/dL (8.2-10.2) 09/09/21 23:14 Total Bilirubin 0.8 mg/dL (0.3-1.2) 09/09/21 23:14 AST 75 U/L (10-42) H 09/09/21 23:14 ALT 37 U/L (10-60) 09/09/21 23:14 Alkaline Phosphatase 130 U/L (32-92) H 09/09/21 23:14 Troponin I High Sens 60 pg/mL (0-20) H* 09/10/21 01:11 B-Natriuretic Peptide 262.0 pg/mL (5-100) H 09/09/21 23:14 Total Protein 6.6 gm/dL (6.1-7.9) 09/09/21 23:14 Albumin 3.4 gm/dL (3.2-5.5) 09/09/21 23:14 Globulin 3.2 gm/dL 09/09/21 23:14 Albumin/Globulin Ratio 1.1 09/09/21 23:14 Urine Color Yellow (Yellow) 09/09/21 23:52 Urine Appearance Clear (Clear) 09/09/21 23:52 Urine pH 6.0 (5.0-9.0) 09/09/21 23:52 Ur Specific [place] 1.020 (1.001-1.030) 09/09/21 23:52 Urine Protein Trace mg/dL (Negative) H 09/09/21 23:52 Urine Glucose (UA) Normal mg/dL (Normal) 09/09/21 23:52 Urine Ketones Negative (Negative) 09/09/21 23:52 Urine Occult Blood Negative (Negative) 09/09/21 23:52 Urine Nitrite Negative (Negative) 09/09/21 23:52 Urine Bilirubin Negative (Negative) 09/09/21 23:52 Urine Urobilinogen Normal mg/dL (Normal) 09/09/21 23:52 Ur Leukocyte Esterase Negative (Negative) 09/09/21 23:52 Urine RBC 0-1 /HPF (0-4) 09/09/21 23:52 Urine WBC 1-2 /HPF (0-4) 09/09/21 23:52 Ur Squamous Epith Cells 1-2 /HPF (0-2) 09/09/21 23:52 Urine Bacteria None seen (None Seen) 09/09/21 23:52 Hyaline Casts 0-8 /LPF (0-8) 09/09/21 23:52 SARS Antigen (LFIA) Negative (Negative) 09/09/21 23:55 SARS-CoV-2 Rap RNA(RT-PCR) Negative (Negative) 09/10/21 01:00 Microbiology Results Micro: Microbiology - Results from entire visit 09/10/21 01:00 Nasopharyngeal SARS-CoV-2, Influenza & RSV (PCR) - Final 09/09/21 23:55 Nasal SARS Antigen (LFIA) - Final A&P - Hospitalist Assessment/Plan (1) Headache: (2) Elevated troponin: Plan assessment and plan: *Elevated trops: -admit to tele -not concerning, pt is chest pain free and his ECG is NSR with no concerning changes -cont his home dose ASA and statin -ECHO in am -Pt can get a stress test as an outpt *Macrocytosis with generalized weakness -will check TSH, Free t4, B12 an folate -PT/OT *Chronic medical issues: -Gout -HTN -Chronic back pain -HLP cont his home meds *DVT ppx with Lovenox Documented By: Andrea Corea MD 2 [id number] Signed By: <Electronically signed by Andrea Corea MD> 09/10/21 0405 [facility] Work Phone: History and physical note Author Hunter Silvestre [facility] October 28, 2022 8:09pm Note Date/Time October 26, 2022 11:49pm [facility] [address] [place] [address] Hospitalist H&P Signed Patient: Hilary Maldonado MR#: [id number] : 1945 Acct:[id number] Age/Sex: 77 / M Adm Date: 3 Loc: Room: [address] [place] [address] Type: ADM IN Attending Dr: Pedro Luis Frye MD Copies to: MD Tyree Montes Jr, MD Siddhartha Hartman, [employer]~ HPI DATE OF EXAMINATION: 10/26/22 CHIEF COMPLAINT: right knee pain and unable to walk HISTORY OF PRESENT ILLNESS: Mr. Maldonado is a 77-year-old male with a PMH of gout, arthritis, tobacco dependence,HTN, depression, headaches the presents to the emergency room x2 today for rightknee pain, inability to walk, slid to the floor and laid on the floor for 6 hours today. Patient initially left AMA from the emergency room earlier today, came back with the same knee pain and inability to walk. Patient seen and evaluated in the emergency room, resting on the cart, yells out in pain with every movement. Reports he has had this right knee pain that started about a month ago, has gotten worse ever since. He states its sometimes he walks with awalker. He reports he did not fall today he just slid to the floor, laid there because he could not walk. He reports that he is a smoker, he denies alcohol use. Does not want to give very much information, not very conversant. Reportshe does not know what medications he takes, does not remember what surgeries he has had in the past. He does not think that he has had a fever or chills, denies chest pain, shortness of breath. He denies diarrhea. He denies that he has had trauma to that right leg. He does take morphine at home and pregabalin,he could not tell me why he takes these. EKG on his first trip to the emergency room shows normal sinus rhythm with a first-degree block, no ST changes noted. Thrombocytopenia noted, platelet [id number] on the CBC?this is elevated from his previous hospitalization. Pro time 4.9, INR 1.2. CMP with a creatinine of 1.39, glucose 102, total bilirubin 1.4, AST 42, ALT 17. Total creatinine kinase 586, troponin 36.6, CRP 8.3. UA with clear, yellow urine with 300 protein, 1+ occult blood, negative for infection. Urine tox screen positive for opiates, patient does take morphine at home. CT of the head shows atrophy, small vessel ischemic changes, no acute intracranial trauma. CT of the C-spine shows postoperative and degenerative changes, no acute bony injury. Chest x-ray shows no acute findings, thoracolumbar scolioticcurvature and endplate spurring, degenerative change at the shoulders greater onthe left, old right clavicle and left rib fractures are present. Knee x-ray 2 view shows osteopenia and worsening degenerative changes, large knee effusion, no definite acute bony injury, chondrocalcinosis of the menisci is suggested, tricompartmental marginal spurring, osteochondral loose bodies along the medial aspect of the joint. Patient was medicated with 1 L bolus of saline, Dilaudid and Zofran. He will be admitted to the [facility] telemetry floor under the care of the hospitalist team for further evaluation and treatment. Review of Systems Review of Systems Review of systems: A 10 point review of systems was obtained, negative unless noted in the HPI or below. [facility] Medical History (Updated 10/27/22 @ 00:25 by Siddhartha Chino APRN) Chronic pain COPD (chronic obstructive pulmonary disease) Gout HTN (hypertension) Hyperlipemia Family History Family/Other Pancreatic cancer Father Myocardial infarction Social History Smoking Status: Current every day smoker Tobacco Type: cigarettes Substance Use Type: None Meds Medications and Allergies Allergies No Known Allergies Allergy (Verified 10/26/22 21:04) Home Medications atorvastatin 10 mg tablet 10 mg PO HS 03/02/18 [History Confirmed 10/26/22] celecoxib 200 mg capsule 200 mg PO DAILY 03/02/18 [History Confirmed 10/26/22] hydrochlorothiazide 12.5 mg capsule 12.5 mg PO DAILY 03/02/18 [History Confirmed 10/26/22] vortioxetine 10 mg tablet 10 mg PO DAILY 03/02/18 [History Confirmed 10/26/22] aspirin 81 mg tablet,delayed release (Aspir-) 81 mg PO DAILY 08/08/19 [History Confirmed 10/26/22] famotidine 40 mg tablet 40 mg PO DAILY 08/08/19 [History Confirmed 10/26/22] morphine 15 mg tablet,extended release 15 mg PO BID 08/08/19 [History Confirmed 10/26/22] pregabalin 100 mg capsule (Lyrica) 100 mg PO TID 08/08/19 [History Confirmed 10/26/22] docusate sodium 100 mg capsule (DOK) 100 mg PO BID PRN Constipation 30 days #60 caps 08/09/19 [Rx Confirmed 10/26/22] allopurinol 300 mg tablet 300 mg PO DAILY 09/10/21 [History Confirmed 10/26/22] colchicine (gout) 0.6 mg tablet 0.6 mg PO DAILY 09/10/21 [History Confirmed 10/26/22] diphenhydramine HCl 50 mg capsule (Banophen) 50 mg PO HS PRN Insomnia 10/26/22 [History Confirmed 10/26/22] Exam Physical Exam Vital Signs: Temp Pulse Resp BP Pulse Ox O2 Del Method 98.7 F 82 16 195/81 H 97 Room Air 10/26/22 21:10 10/26/22 21:10 10/26/22 21:10 10/26/22 21:10 10/26/22 21:10 10/26/22 21:10 Narrative: CONST- Appears well -developed and well nourished. Frail, cachectic HEAD - Normocephalic and atraumatic EENT-Sclera nonicteric, conjunctive are non-erythemic, dry oral mucosa, pharynx clear NECK-Supple, no cervical lymphadenopathy CARDIAC-normal rate, regular rhythm, S1 & S2. PULM-diminished without wheeze or rhonchi, RA, no accessory muscle use or cough noted ABD - Soft. Bowel sounds are normal. No distention. No tenderness EXTREM- generalized swelling to R knee, tender to palpation to right knee, no redness or warmth noted SKIN- W/D good turgor, chronic discoloration to bilateral feet ankles MS- MAEX4 spontaneously with equal with equal strength-weakness and pain to RLE NEURO- A&Ox3 speech clear and tongue midline, equal facial symmetry, no focal motor deficits PSYCH- Irritable Results Lab Results Labs: Laboratory Last Values C-Reactive Prot, Quant 8.3 mg/dL (0.0-0.5) H 10/26/22 15:02 Assessment & Plan Assessment/Plan (1) Effusion of right knee: (2) Frequent falls: (3) Generalized weakness: (4) Chronic pain: (5) Thrombocytopenia: (6) HTN (hypertension): (7) Gout: (8) Inability to ambulate due to knee: (9) Impaired mobility and ADLs: Plan Intractable right knee pain Right knee effusion, chondrocalcinosis found on x-ray Inability to ambulate, impaired ADLs ? Consult orthopedic surgery ? Pain control Frequent falls Generalized weakness ? Consult PT/OT Chronic conditions Chronic pain?patient takes pregabalin and morphine at home, will likely be difficult to manage acute pain at this time Thrombocytopenia?current platelet count 104, monitor HTN?monitor, resume home meds when confirmed Gout?patient takes allopurinol and colchicine at home, will resume when confirmed Tobacco dependence?tobacco cessation, nicotine patch as needed DVT PPx-SCDs, will defer pharmacological therapy due to thrombocytopenia Diet order-regular CODE STATUS-DNR CCA without intubation as discussed with patient IP vs OBS Justification Based on differential dx, clinical care plan, and risk of adverse events, if untreated, in my clinical judgement this patient requires an acute care setting as: INPATIENT because of an expectation of an over 2 midnight stay. Estimated length of stay (# of days): 3 Documented By: Siddhartha Chino APRN 10/26/22 2349 Signed By: <Electronically signed by PHYLLIS Chino> 10/27/22 0026 <Electronically signed by Hunter Silvestre MD> 10/28/222008 [facility] Work Phone: History and physical note Author Tricia Salazar [facility] November 02, 2022 4:33am Note Date/Time November 01, 2022 10:50pm [facility] [address] [place] [address] Hospitalist H&P Signed with Addenda Patient: Hilary Maldonado MR#: [id number] : 1945 Acct:[id number] Age/Sex: 77 / M Adm Date: 3 Loc: 4N Room: [address] [place] [address] Type: ADM INOo Attending Dr: Tricia Salazar MD Copies to: Tyree Ambrosio Jr, DO Tricia Salazar MD~ ADDENDUM1 Resp panel was done and patient tested positive for COVID. He does have productive cough, oxygen saturation around 90% also has underlying COPD/chronic smoker. Check CXR. Given his risk, will start Remdesivir and Decadron per protocol. Placed on isolation per protocol. Addendum Documented By: Tricia Salazar MD 11/02/22431 Addendum Signed By: <Electronically signed by Tricia Salazar MD> 11/02/22 0432 HPI DATE OF EXAMINATION: 11/01/22 CHIEF COMPLAINT: Confusion, unable to care for self HISTORY OF PRESENT ILLNESS: Mr. Maldonado is a 77-year-old male with a PMH of gout, arthritis, tobacco dependence,HTN, depression, headaches the presents to the emergency room accompanied by hissister due to confusion and inability to care for self. Patient was discharged recently from our facility after hospitalization for right knee pain with effusion. Orthopedic was consulted at that time and impression was likely acutegout flare leading to joint pain and effusion. Knee aspiration was discussed with the patient which she refused. He was started on IV Toradol and colchicinebut developed renal failure for which these were discontinued. He was started on prednisone with taper and was discharged with outpatient follow-up. During hospital course patient was offered to go to detention facility since he lives by himself and unable to care for self, unable to perform his ADLs or takehis medications, also has poor oral intake. He was evaluated by psychiatry on previous admission and deemed to have capacity to make decisions. Patient refused to go to detention facility and went home upon discharge. Now he is back with periods of confusion according to his sister and inability to care for self or take his medications for which she is developing right knee pain dueto gout. Decision was made to keep him for observation for adequate IV hydration and possible placement. Review of Systems Review of Systems Unobtainable due to mental status [facility] Medical History Chronic pain COPD (chronic obstructive pulmonary disease) Gout HTN (hypertension) Hyperlipemia Family History Family/Other Pancreatic cancer Father Myocardial infarction Social History Smoking Status: Never smoker Substance Use Type: None Meds Medications and Allergies Allergies No Known Allergies Allergy (Verified 11/01/22 16:37) Home Medications atorvastatin 10 mg tablet 10 mg PO HS 03/02/18 [History Confirmed 10/27/22] celecoxib 200 mg capsule 200 mg PO DAILY 03/02/18 [History Confirmed 10/27/22] vortioxetine 10 mg tablet 10 mg PO DAILY 03/02/18 [History Confirmed 10/27/22] aspirin 81 mg tablet,delayed release (Aspir-) 81 mg PO DAILY 08/08/19 [History Confirmed 10/26/22] famotidine 40 mg tablet 40 mg PO DAILY 08/08/19 [History Confirmed 10/27/22] morphine 15 mg tablet,extended release (MS Contin) 15 mg PO BID PRN Pain 08/08/19 [History Confirmed 10/27/22] pregabalin 100 mg capsule (Lyrica) 100 mg PO TID 08/08/19 [History Confirmed 10/27/22] docusate sodium 100 mg capsule (DOK) 100 mg PO BID PRN Constipation 30 days #60 caps 08/09/19 [Rx Confirmed 10/27/22] allopurinol 300 mg tablet 300 mg PO DAILY 09/10/21 [History Confirmed 10/27/22] colchicine (gout) 0.6 mg tablet 1.2 mg PO DAILY 09/10/21 [History Confirmed 10/27/22] mirtazapine 15 mg tablet 15 mg PO HS 10/27/22 [History Confirmed 10/27/22] verapamil 40 mg tablet 40 mg PO DAILY 10/27/22 [History Confirmed 10/27/22] prednisone 20 mg tablet 40 mg PO DAILY 15 days #30 tabs 10/30/22 [Rx] Exam Physical Exam Vital Signs: Temp Pulse Resp BP Pulse Ox O2 Del Method 98.1 F 50 L 18 107/56 L 95 Room Air 11/01/22 16:33 11/01/22 20:30 11/01/22 20:30 11/01/22 20:30 11/01/22 20:30 11/01/22 20:30 Narrative: Const General: cooperative, very hard of hearing HEENT Normal oropharyngeal mucosa without any ulcers or exudates Eyes: Conjunctiva normal Pulmonary Auscultation: Diminished breath sounds, bilateral expiratory wheezing Cardiovascular Rate: normal rate Rhythm: regular rhythm Heart Sounds: S1 normal, S2 normal and no murmurs GI Inspection: non-distended Palpation: soft, not firm and nontender. No rigidity or rebound. Deferred Neuro General: alert, awake, mental status waxing and waning, periods of confusion. No obvious new focal deficit Musculoskeletal: normal range of motion Extrem General: no cyanosis, trace pedal edema, R knee mild swelling Psych Appearance: confused Results Lab Results Labs: Laboratory Last Values Corrected WBC 5.5 X10E3/uL (4.1-10.5) 11/01/22 19:49 Uncorrected WBC Count 5.5 x10E3/uL (4.1-10.5) 11/01/22 19:49 RBC 3.84 X10E6/uL (3.90-5.60) L 11/01/22 19:49 Hgb 12.7 g/dL (13.0-17.0) L 11/01/22 19:49 Hct 38.3 % (38.8-50.0) L 11/01/22 19:49 MCV 99.8 fl (83.5-101) 11/01/22 19:49 MCH 33.1 pg (27.5-35.2) 11/01/22 19:49 MCHC 33.2 g/dL (32.5-35.6) 11/01/22 19:49 RDW 14.8 % (12.0-14.8) 11/01/22 19:49 Plt Count 119 x10E3/uL (150-450) L 11/01/22 19:49 MPV 8.9 fl (6.6-10.1) 11/01/22 19:49 Neut % (Auto) 53.4 % (.) 11/01/22 19:49 Lymph % (Auto) 32.6 % (.) 11/01/22 19:49 [place] % (Auto) 13.4 % (.) 11/01/22 19:49 Eos % (Auto) 0.3 % (.) 11/01/22 19:49 Baso % (Auto) 0.3 % (.) 11/01/22 19:49 Nucleat RBC Rel Count 0.3 /100 WBC (0-0.5) 11/01/22 19:49 Neut # (Auto) 3.0 x10E3/uL (1.8-7.7) 11/01/22 19:49 Lymph # (Auto) 1.8 x10E3/uL (1.00-4.8) 11/01/22 19:49 [place] # (Auto) 0.7 x10E3/uL (0.0-0.8) 11/01/22 19:49 Eos # (Auto) 0.0 x10E3/uL (0.0-0.45) 11/01/22 19:49 Baso # (Auto) 0.0 x10E3/uL (0.0-0.2) 11/01/22 19:49 Monocyte Dist Width 22.50 % (0.00-20.00) H 11/01/22 19:49 PHA Creatinine Clear 62.99 11/01/22 19:49 Sodium 138 mmol/L (136-145) 11/01/22 19:49 Potassium 3.7 mmol/L (3.5-5.1) 11/01/22 19:49 Chloride 105 mmol/L (98-107) 11/01/22 19:49 Carbon Dioxide 29.2 mmol/L (21.0-31.0) 11/01/22 19:49 Anion Gap 7.5 mEq/L (6.0-15.0) 11/01/22 19:49 BUN 24 mg/dL (7-25) 11/01/22 19:49 Creatinine 1.16 mg/dL (0.70-1.30) 11/01/22 19:49 Est GFR (CKD-EPI) > 60.0 mL/Min 11/01/22 19:49 Glucose 93 mg/dL (70-100) 11/01/22 19:49 Calcium 8.7 mg/dL (8.6-10.3) 11/01/22 19:49 Total Bilirubin 0.6 mg/dl (0.3-1.0) 11/01/22 19:49 AST 65 U/L (13-39) H 11/01/22 19:49 ALT 41 U/L (7-52) 11/01/22 19:49 Alkaline Phosphatase 69 U/L (34-104) 11/01/22 19:49 Troponin I High Sens 34.7 pg/mL (0.0-20.0) H 11/01/22 19:49 Total Protein 6.5 gm/dL (6.4-8.9) 11/01/22 19:49 Albumin 3.3 gm/dL (3.5-5.7) L 11/01/22 19:49 Globulin 3.2 gm/dL 11/01/22 19:49 Albumin/Globulin Ratio 1.0 11/01/22 19:49 Urine Color Yellow (Yellow) 11/01/22 21:21 Urine Appearance Clear (Clear) 11/01/22 21:21 Urine pH 5.5 (5.0-9.0) 11/01/22 21:21 Ur Specific Clio 1.024 (1.001-1.030) 11/01/22 21:21 Urine Protein 300 mg/dL (Negative) H 11/01/22 21:21 Urine Glucose (UA) Normal mg/dL (Normal) 11/01/22 21:21 Urine Ketones Negative (Negative) 11/01/22 21:21 Urine Occult Blood Negative (Negative) 11/01/22 21:21 Urine Nitrite Negative (Negative) 11/01/22 21:21 Urine Bilirubin Negative (Negative) 11/01/22 21:21 Urine Urobilinogen Normal mg/dL (Normal) 11/01/22 21:21 Ur Leukocyte Esterase Negative (Negative) 11/01/22 21:21 Urine RBC 3-4 /HPF (0-4) 11/01/22 21:21 Urine WBC 1-2 /HPF (0-4) 11/01/22 21:21 Ur Squamous Epith Cells None seen /HPF (0-2) 11/01/22 21:21 Urine Bacteria None seen (None Seen) 11/01/22 21:21 Hyaline Casts 0-8 /LPF (0-8) 11/01/22 21:21 Assessment & Plan Assessment/Plan (1) Unable to care for self: (2) Impaired mobility and ADLs: (3) Inability to ambulate due to knee: Plan Gait instability Advanced age Physical debility Functional decline Recent gout flare Poor oral intake Unable to care for self or perform ADLs -Adequate IV hydration -Resume home medications -We will do IV steroids while here for gout -Check uric acid -Monitor kidney function -PT/OT evaluations -acoustical 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 She was trying to convince the patient to stay in the hospital to get the help he needs since it is unsafe for him to go home at this time. His sister would like to be informed regarding discharge planning since she does not feel safe for him to go home again and she is willing to speak with the patient again regarding SNF. Tricia Dutton MD Internal Medicine Hospitalist Attending Physician IP vs OBS Justification Based on differential dx, clinical care plan, and risk of adverse events, if untreated, in my clinical judgement this patient requires an acute care setting as: OBSERVATION because of an expectation of an under 2 midnight stay. Estimated length of stay (# of days): 2 Documented By: Tricia Salazar MD 11/01/22 22 39 Signed By: <Electronically signed by Tricia Salazar MD> 11/01/22 8979 [facility] Work Phone: History and physical note Author Tricia Salazar [facility] November 20, 2022 12:20pm Note Date/Time November 20, 2022 12 :09pm [facility] [address] [place] [address] Hospitalist H&P Signed Patient: Hilary Maldonado MR#: [id number] : 1945 Acct:[id number] Age/Sex: 77 / M Adm Date: 3 Loc: Room: [address] [place] [address] Type: ADM IN Attending Dr: Tricia Salazar MD Copies to: Tyree Ambrosio Jr, DO Tricia Salazar MD~ HPI DATE OF EXAMINATION: 11/20/22 CHIEF COMPLAINT: AMS HISTORY OF PRESENT ILLNESS: Mr. Maldonado is a 77-year-old male with a PMH of gout, arthritis, tobacco dependence,HTN, depression, headaches the presented to the emergency room, it seems he camethrough police, EMS was called at the scene where patient was outside, appeared confused, unable to operate the car. He fell onto his right knee. Stated he was trying to get food from outside. History is limited given his disorientation to the event, time or place. Only able to state his full name and follow simple commands. He does have history of gout mostly in his knee with previous evaluations for that. He has been adamant to go home on each hospitalization here. He is known to me from previous admission, found to have COVID, received treatment and plan was to go to rehab, however, he refused to cooperate to go there and went home and now he is back. He has not been following medical advice. Previously was evaluated on past admissions by orthopedic for his R knee, known hx of gout, questionable compliance to medications. Has not been on Allopurinol. Previously opted for conservative management since he refused interventions. He had psych eval for capacity and deemed to have capacity to make decisions. At this point of time, It does not seem he has capacity, he is disoriented and I do not believe he understands his medical condition. His sister Cami at bedside in ER during my encounter, she takes care of him, but he lives by himself, she only checks on him. He has been back for the third time rox month for similar issues. Obviously, home is not appropriate disposition for him at this time. Here he is afebrile, mild leukocytosis, UA mildly positive, some signs of dehydration, we will treat it with IV antibiotics. Decision was made to admit him for further evaluation and management with appropriate disposition. Review of Systems Review of Systems Unobtainable due to mental status [facility] Medical History Chronic pain COPD (chronic obstructive pulmonary disease) Gout HTN (hypertension) Hyperlipemia Family History Family/Other Pancreatic cancer Father Myocardial infarction Social History Smoking Status: Unknown if ever smoked Tobacco Type: cigarettes Substance Use Type: Unknown Meds Medications and Allergies Allergies No Known Allergies Allergy (Verified 11/20/22 05:17) Home Medications atorvastatin 10 mg tablet 10 mg PO HS 03/02/18 [History Confirmed 11/20/22] celecoxib 200 mg capsule 200 mg PO DAILY 03/02/18 [History Confirmed 11/20/22] vortioxetine 10 mg tablet 10 mg PO DAILY 03/02/18 [History Confirmed 11/20/22] morphine 15 mg tablet,extended release (MS Contin) 15 mg PO BID PRN Pain 08/08/19 [History Confirmed 11/20/22] pregabalin 100 mg capsule (Lyrica) 100 mg PO TID 08/08/19 [History Confirmed 11/20/22] docusate sodium 100 mg capsule (DOK) 100 mg PO BID PRN Constipation 30 days #60 caps 08/09/19 [Rx Confirmed 11/20/22] colchicine (gout) 0.6 mg tablet 1.2 mg PO DAILY 09/10/21 [History Confirmed 11/20/22] mirtazapine 15 mg tablet 15 mg PO HS 10/27/22 [History Confirmed 11/20/22] verapamil 40 mg tablet 40 mg PO DAILY 10/27/22 [History Confirmed 11/20/22] Exam Physical Exam Vital Signs: Temp Pulse Resp BP Pulse Ox O2 Del Method 97.8 F 67 20 138/80 98 Room Air 11/20/22 10:03 11/20/22 11:00 11/20/22 11:00 11/20/22 11:00 11/20/22 11:00 11/20/22 11:00 Narrative: Const General: confused HEENT dry oropharyngeal mucosa without any ulcers or exudates Eyes: Conjunctiva normal Pulmonary Auscultation: clear to auscultation , no crackles, no wheezes Cardiovascular Rate: normal rate Rhythm: regular rhythm Heart Sounds: S1 normal, S2 normal and no murmurs GI Inspection: non-distended Palpation: soft, not firm and nontender. No rigidity or rebound. Deferred Neuro General: alert, awake and oriented to self only, not to place or time. strength intact all extremities aside from RLE due to pain. No facial asymmetry, tongue is midline Musculoskeletal: Limited range of motion at R knee- very painful to touch, warm,swollen. Unable to evaluate further due to severe pain and aggressive behavior Extrem General: no cyanosis, no pedal edema Psych Appearance: flat affect, has some aggressive behavior Results Lab Results Labs: Laboratory Last Values Corrected WBC 12.1 X10E3/uL (4.1-10.5) H 11/20/22 07:21 Uncorrected WBC Count 12.1 x10E3/uL (4.1-10.5) H 11/20/22 07:21 RBC 4.43 X10E6/uL (3.90-5.60) 11/20/22 07:21 Hgb 14.9 g/dL (13.0-17.0) 11/20/22 07:21 Hct 44.0 % (38.8-50.0) 11/20/22 07:21 MCV 99.4 fl (83.5-101) 11/20/22 07:21 MCH 33.7 pg (27.5-35.2) 11/20/22 07:21 MCHC 33.8 g/dL (32.5-35.6) 11/20/22 07:21 RDW 15.3 % (12.0-14.8) H 11/20/22 07:21 Plt Count 100 x10E3/uL (150-450) L 11/20/22 07:21 MPV 10.0 fl (6.6-10.1) 11/20/22 07:21 Neut % (Auto) 74.0 % (.) 11/20/22 07:21 Lymph % (Auto) 16.1 % (.) 11/20/22 07:21 [place] % (Auto) 9.3 % (.) 11/20/22 07:21 Eos % (Auto) 0.2 % (.) 11/20/22 07:21 Baso % (Auto) 0.4 % (.) 11/20/22 07:21 Nucleat RBC Rel Count 0.1 /100 WBC (0-0.5) 11/20/22 07:21 Neut # (Auto) 8.9 x10E3/uL (1.8-7.7) H 11/20/22 07:21 Lymph # (Auto) 1.9 x10E3/uL (1.00-4.8) 11/20/22 07:21 [place] # (Auto) 1.1 x10E3/uL (0.0-0.8) H 11/20/22 07:21 Eos # (Auto) 0.0 x10E3/uL (0.0-0.45) 11/20/22 07:21 Baso # (Auto) 0.0 x10E3/uL (0.0-0.2) 11/20/22 07:21 Monocyte Dist Width 20.87 % (0.00-20.00) H 11/20/22 07:21 Platelet Estimate Decreased (Normal) 11/20/22 07:21 Plt Morphology Comment Normal (Normal) 11/20/22 07:21 RBC Morphology N/A 11/20/22 07:21 Polychromasia Slight 11/20/22 07:21 Anisocytosis Slight 11/20/22 07:21 Macrocytosis Slight 11/20/22 07:21 PHA Creatinine Clear 58.92 11/20/22 07:21 Sodium 136 mmol/L (136-145) 11/20/22 07:21 Potassium 3.8 mmol/L (3.5-5.1) 11/20/22 07:21 Chloride 102 mmol/L (98-107) 11/20/22 07:21 Carbon Dioxide 25.3 mmol/L (21.0-31.0) 11/20/22 07:21 Anion Gap 12.5 mEq/L (6.0-15.0) 11/20/22 07:21 BUN 21 mg/dL (7-25) 11/20/22 07:21 Creatinine 1.24 mg/dL (0.70-1.30) 11/20/22 07:21 Est GFR (CKD-EPI) > 60.0 mL/Min 11/20/22 07:21 Glucose 117 mg/dL (70-100) H 11/20/22 07:21 POC Glucose 126 mg/dl 11/20/22 05:18 POC Glucose Comment Glu2: cleaned meter 11/20/22 05:18 Uric Acid 8.1 mg/dL (4.4-7.6) H 11/20/22 07:21 Calcium 8.7 mg/dL (8.6-10.3) 11/20/22 07:21 Total Bilirubin 1.9 mg/dl (0.3-1.0) H 11/20/22 07:21 Direct Bilirubin 0.50 mg/dL (0.03-0.18) H 11/20/22 07:21 Indirect Bilirubin 1.4 mg/dL 11/20/22 07:21 AST 24 U/L (13-39) 11/20/22 07:21 ALT 18 U/L (7-52) 11/20/22 07:21 Alkaline Phosphatase 89 U/L (34-104) 11/20/22 07:21 Ammonia 18 umol/L (11-35) 11/20/22 07:21 Total Creatine Kinase 62 U/L (30-223) 11/20/22 07:21 Troponin I High Sens 59.7 pg/mL (0.0-20.0) H* 11/20/22 07:21 Total Protein 6.7 gm/dL (6.4-8.9) 11/20/22 07:21 Albumin 3.7 gm/dL (3.5-5.7) 11/20/22 07:21 Globulin 3.0 gm/dL 11/20/22 07:21 Albumin/Globulin Ratio 1.2 11/20/22 07:21 Urine Color Dark yellow (Yellow) A 11/20/22 08:22 Urine Appearance Clear (Clear) 11/20/22 08:22 Urine pH 5.0 (5.0-9.0) 11/20/22 08:22 Ur Specific Clio 1.026 (1.001-1.030) 11/20/22 08:22 Urine Protein 300 mg/dL (Negative) H 11/20/22 08:22 Urine Glucose (UA) Normal mg/dL (Normal) 11/20/22 08:22 Urine Ketones Trace (Negative) H 11/20/22 08:22 Urine Occult Blood Negative (Negative) 11/20/22 08:22 Urine Nitrite Positive (Negative) H 11/20/22 08:22 Urine Bilirubin 2+ (Negative) H 11/20/22 08:22 Urine Urobilinogen Normal mg/dL (Normal) 11/20/22 08:22 Ur Leukocyte Esterase 1+ (Negative) H 11/20/22 08:22 Urine RBC 3-4 /HPF (0-4) 11/20/22 08:22 Urine WBC 3-4 /HPF (0-4) 11/20/22 08:22 Ur Squamous Epith Cells 0-1 /HPF (0-2) 11/20/22 08:22 Urine Bacteria None seen (None Seen) 11/20/22 08:22 Hyaline Casts 9-19 /LPF (0-8) H 11/20/22 08:22 Assessment & Plan Assessment/Plan (1) Acute encephalopathy: (2) Acute UTI: (3) Acute knee pain: (4) Fall: (5) Volume depletion: Plan Acute encephalopathy-possibly metabolic Acute nonhemorrhagic cystitis Volume depletion -Afebrile here, has mild leukocytosis, UA mildly positive. -Follow urine culture -Adequate IV hydration -Will maintain IV antibiotics for now -Monitor mental status/Fever/WBC trend Acute on chronic R knee pain Suspected acute gout flare up Medication noncompliance Known hx of gout -Afebrile, mild leukocytosis -Will check ESR, CRP, uric acid -Continue Colchicine and Celebrex -Start IV steroids -Orthopedic consult for possible aspiration Gait instability Advanced age Physical debility Functional decline Falls -PT/OT evaluations -acoustical material worker/caser up for appropriate and safe disposition -Maintain fall precaution Home medications reviewed and restarted as appropriate Diet: Regular DVT ppx:heparin Code status: DNR CCA without intubation Disposition: inpatient status Discussed with his sister Cami at bedside. All questions answered. I do not believe that patient has medical capacity to make decisions at this time. Multiple hospitalization over a month for similar complaints. Might consider psych eval again for capacity. His sister is involved in her care, would reach out to her for any procedures, decision making regarding disposition. Tricia Dutton MD Internal Medicine Hospitalist Attending Physician IP vs OBS Justification Based on differential dx, clinical care plan, and risk of adverse events, if untreated, in my clinical judgement this patient requires an acute care setting as: INPATIENT because of an expectation of an over 2 midnight stay. Estimated length of stay (# of days): 3 Documented By: Tricia Salazar MD 11/20/22 11 58 Signed By: <Electronically signed by Tricia Salazar MD> 11/20/22 1220 [facility] Work Phone: History and physical note Author Celeste Alfonso [facility] December 20, 2022 1:20pm Note Date/Time December 19, 2022 8 :29pm [facility] [address] [place] [address] Hospitalist H&P Signed Patient: Hilary Maldonado MR#: [id number] : 1945 Acct:[id number] Age/Sex: 77 / M Adm Date: 3 Loc: Room: [address] [place] [address] Type: ADM IN Attending Dr: Celeste Alfonso MD Copies to: NO FAMILY PHYSICIAN Celeste Alfonso MD~ HPI DATE OF EXAMINATION: 12/19/22 CHIEF COMPLAINT: Change in mental status HISTORY OF PRESENT ILLNESS: 77 years old male who lives at home alone, usually is awake and oriented x3 per his friend who came to emergency room, was found by home health care nurses laying next to the couch covered in stool. Unknown downtime. Patient is not able to give any history at this point When I went to his room, he appeared to be comfortable but he was very confused,he was oriented x1, and told me to get out of the room. He did not allow me to finish exam. He denied any pain, he denied any abdominal pain any chest pain. He denied any dizziness any lightheadedness. He denied any joint pains. Per nurse he was asking to eat something as well as he complained of joint pain in the right knee 10 systems are limited due to mental status General -patient is awake does not appear to be in respiratory distress, does not appear to be painful, oriented x1 HEENT -dry oropharyngeal mucosa without any ulcers or exudates Cardiovascular -S1 plus S2, with regular rate, without any murmurs, gallops, rubs Pulmonary -clear to auscultation bilaterally Gastrointestinal -abdomen is soft, nondistended, nontender, bowel sounds positive, no rigidity, no rebound Genitourinary -deferred Musculoskeletal -no back tenderness, no significant joint swelling, full range of motion Neurological -no significant focal neurological dysfunction noted but he did have some weakness of his right upper extremity Skin -no significant ulcers, no rash noted Extremities - no edema in bilateral lower extremities noted Psychiatry - appropriate affect Laboratory work up, imaging studies reviewed EKG personally reviewed by me normal sinus rhythm with T wave inversions in 3 and aVF with prolonged QT, 497 Previous records in the computer system reviewed CT scan of the abdomen and pelvis with IV contrast showed trace left pleural effusions with minor basilar parenchymal changes, without acute findings [facility] Medical History Chronic pain COPD (chronic obstructive pulmonary disease) Gout HTN (hypertension) Hyperlipemia Family History Family/Other Pancreatic cancer Father Myocardial infarction Social History Smoking Status: Current every day smoker Tobacco Type: cigarettes Substance Use Type: None Meds Medications and Allergies Allergies No Known Allergies Allergy (Verified 12/19/22 13:41) Home Medications atorvastatin 10 mg tablet 10 mg PO QAM 03/02/18 [History Confirmed 12/19/22] celecoxib 200 mg capsule 200 mg PO DAILY 03/02/18 [History Confirmed 12/19/22] vortioxetine 10 mg tablet 10 mg PO DAILY 03/02/18 [History Confirmed 12/19/22] morphine 15 mg tablet,extended release (MS Contin) 15 mg PO BID PRN Pain 08/08/19 [History Confirmed 12/19/22] pregabalin 100 mg capsule (Lyrica) 100 mg PO TID 08/08/19 [History Confirmed 12/19/22] docusate sodium 100 mg capsule (DOK) 100 mg PO BID PRN Constipation 30 days #60 caps 08/09/19 [Rx Confirmed 12/19/22] colchicine (gout) 0.6 mg tablet 0.6 mg PO BID 09/10/21 [History Confirmed 12/19/22] mirtazapine 15 mg tablet 15 mg PO QHS 10/27/22 [History Confirmed 12/19/22] verapamil 40 mg tablet 40 mg PO QAM 10/27/22 [History Confirmed 12/19/22] allopurinol 300 mg tablet 300 mg PO QAM 11/20/22 [History Confirmed 12/19/22] aspirin 81 mg tablet,delayed release 81 mg PO DAILY 11/20/22 [History Confirmed 12/19/22] famotidine 40 mg tablet 40 mg PO QHS 11/20/22 [History Confirmed 12/19/22] albuterol sulfate 2.5 mg/3 mL (0.083 %) solution for nebulization 2.5 mg inhalation BID 12/19/22 [History Confirmed 12/19/22] aripiprazole 5 mg tablet 5 mg PO QAM 12/19/22 [History Confirmed 12/19/22] diphenhydramine HCl 50 mg capsule (Banophen) 50 mg PO QHS PRN Insomnia 12/19/22 [History Confirmed 12/19/22] hydrochlorothiazide 12.5 mg capsule 12.5 mg PO QAM 12/19/22 [History Confirmed 12/19/22] Exam Physical Exam Vital Signs: Temp Pulse Resp BP Pulse Ox O2 Del Method 36.9 C 80 16 160/80 H 97 Room Air 12/19/22 14:11 12/19/22 18:19 12/19/22 18:19 12/19/22 18:19 12/19/22 18:19 12/19/22 18:19 Results Lab Results Labs: Laboratory Last Values Corrected WBC 10.6 X10E3/uL (4.1-10.5) H 12/19/22 14:55 Uncorrected WBC Count 10.6 x10E3/uL (4.1-10.5) H 12/19/22 14:55 RBC 4.72 X10E6/uL (3.90-5.60) 12/19/22 14:55 Hgb 15.9 g/dL (13.0-17.0) 12/19/22 14:55 Hct 47.8 % (38.8-50.0) 12/19/22 14:55 MCV 101.2 fl (83.5-101) H 12/19/22 14:55 MCH 33.8 pg (27.5-35.2) 12/19/22 14:55 MCHC 33.4 g/dL (32.5-35.6) 12/19/22 14:55 RDW 15.9 % (12.0-14.8) H 12/19/22 14:55 Plt Count 200 x10E3/uL (150-450) 12/19/22 14:55 MPV 10.0 fl (6.6-10.1) 12/19/22 14:55 Neut % (Auto) 66.1 % (.) 12/19/22 14:55 Lymph % (Auto) 22.0 % (.) 12/19/22 14:55 [place] % (Auto) 8.6 % (.) 12/19/22 14:55 Eos % (Auto) 2.5 % (.) 12/19/22 14:55 Baso % (Auto) 0.8 % (.) 12/19/22 14:55 Nucleat RBC Rel Count 0.5 /100 WBC (0-0.5) 12/19/22 14:55 Neut # (Auto) 7.0 x10E3/uL (1.8-7.7) 12/19/22 14:55 Lymph # (Auto) 2.3 x10E3/uL (1.00-4.8) 12/19/22 14:55 [place] # (Auto) 0.9 x10E3/uL (0.0-0.8) H 12/19/22 14:55 Eos # (Auto) 0.3 x10E3/uL (0.0-0.45) 12/19/22 14:55 Baso # (Auto) 0.1 x10E3/uL (0.0-0.2) 12/19/22 14:55 Monocyte Dist Width 20.93 % (0.00-20.00) H 12/19/22 14:55 PT 13.4 Seconds (9.0-12.9) H 12/19/22 14:55 INR 1.1 12/19/22 14:55 APTT 33.9 Seconds (25.1-36.5) 12/19/22 14:55 Sample Site Venous 12/19/22 15:06 VBG pH 7.37 (7.32-7.43) 12/19/22 15:06 VBG pCO2 44.9 mmHg (38.0-50.0) 12/19/22 15:06 VBG pO2 24.3 mmHg (35.0-45.0) L 12/19/22 15:06 VBG HCO3 25.1 mmol/L (23.0-29.0) 12/19/22 15:06 VBG Total CO2 26.5 mmol/L (24.0-29.0) 12/19/22 15:06 VBG O2 Saturation 41.2 % (73.0-76.0) L* 12/19/22 15:06 VBG O2 Content 4.4 mmol/L (6.6-9.7) L 12/19/22 15:06 VBG Base Excess -0.7 mmol/L (-3.0-3.0) 12/19/22 15:06 FiO2 21 % 12/19/22 15:06 Critical Value 12/19/22 15:06 PHA Creatinine Clear 71.11 12/19/22 14:55 Sodium 142 mmol/L (136-145) 12/19/22 14:55 Potassium 3.6 mmol/L (3.5-5.1) 12/19/22 14:55 Chloride 105 mmol/L (98-107) 12/19/22 14:55 Carbon Dioxide 26.0 mmol/L (21.0-31.0) 12/19/22 14:55 Anion Gap 14.6 mEq/L (6.0-15.0) 12/19/22 14:55 BUN 14 mg/dL (7-25) 12/19/22 14:55 Creatinine 0.97 mg/dL (0.70-1.30) 12/19/22 14:55 Est GFR (CKD-EPI) > 60.0 mL/Min 12/19/22 14:55 Glucose 89 mg/dL (70-100) 12/19/22 14:55 POC Glucose 92 mg/dl 12/19/22 13:57 POC Glucose Comment 12/19/22 13:57 Lactic Acid 1.7 mmol/L (0.5-2.2) 12/19/22 14:55 Calcium 9.3 mg/dL (8.6-10.3) 12/19/22 14:55 Total Bilirubin 1.2 mg/dl (0.3-1.0) H 12/19/22 14:55 AST 37 U/L (13-39) 12/19/22 14:55 ALT 20 U/L (7-52) 12/19/22 14:55 Alkaline Phosphatase 121 U/L (34-104) H 12/19/22 14:55 Ammonia 22 umol/L (11-35) 12/19/22 14:55 Total Creatine Kinase 77 U/L (30-223) 12/19/22 14:55 Troponin I High Sens 135.8 pg/mL (0.0-20.0) H* 12/19/22 14:55 Total Protein 7.8 gm/dL (6.4-8.9) 12/19/22 14:55 Albumin 4.0 gm/dL (3.5-5.7) 12/19/22 14:55 Globulin 3.8 gm/dL 12/19/22 14:55 Albumin/Globulin Ratio 1.1 12/19/22 14:55 TSH 3rd Generation 2.21 uIU/mL (0.45-5.33) 12/19/22 14:55 ABG Interpretation ABG results: 12/19/22 15:06 VBG pH 7.37 VBG pCO2 44.9 VBG pO2 24.3 L VBG HCO3 25.1 VBG Total CO2 26.5 VBG O2 Saturation 41.2 L* VBG Base Excess -0.7 Assessment & Plan Assessment/Plan (1) Altered mental status: Plan 1. Transient episode of unresponsiveness associated with confusion No obvious signs of infection, however urinalysis still pending Blood cultures obtained, awaiting urinalysis Abnormal troponins was noted with T wave inversions in 3 and aVF which is the same compared to old EKG, will admit to telemetry, continue with serial cardiac enzymes, check echocardiogram, continue with aspirin and statins Due to confusion we will get MRI of the brain, he does have right upper extremity weakness, of unclear etiology, it is not clear if it is old or acute, no other obvious focal neurological dysfunction, but exam is limited due to uncooperation IP vs OBS Justification Based on differential dx, clinical care plan, and risk of adverse events, if untreated, in my clinical judgement this patient requires an acute care setting as: INPATIENT because of an expectation of an over 2 midnight stay. Estimated length of stay (# of days): 3 Documented By: Celeste Alfonso MD 12/19/222023 Signed By: <Electronically signed by Celeste Alfonso MD> 12/20/22 1320 [facility] Work Phone: History general Narrative - Reported* Type Description Date Medical History 2013 EGD with dilatation, and BR DANIEL Study Medical History hard of hearing Medical History PAD Medical History CAD Medical History COPD Medical History HTN Medical History Chronic neck and back pain Medical History Esophageal stricture Medical History GERD [Gastroesophageal reflux di sease] Medical History Dysphagia Medical History Esophagospasm Medical History Constipation Surgical History TKA/ANKIT left Surgical History back surgery Surgical History neck surgery Surgical History elbow surgery Surgical History cartilage removed from nose Surgical History coronaryt stents Hospitalization History in ER 22 times for anxie ty / SOB / Dysphagia 2013 [facility] Other Hospital Discharge instructionsAmbulatory Orders* Initiate Home Health Time Frame: 1 Day, Location: Determined By Patient Additional Instructions Home Health to manage care: - DNRCCA without intubation - PT/OT eval and treat - Routine vital signs - Medication management and education - BMP in 8 days, results to Primary Care [facility] Work Phone: Hospital Discharge instructions Additional Instructions SNF TO MANAGE: PT/OT to eval and treat Monitor VS per protocol Monitor voiding--Urine retention Monitor Neuro. and Cardiac assessment--Syncope Dietitian recommendations: Ensure Plus, 1 container, daily with a meal Maintain high risk fall precautions [facility] Discharge instructions Additional Instructions SNF Physician to manage: - PT, OT to eval and treat - Monitor VS routine - Dx. HTN - Neuro assessments - Dx. CVA - CHF assessments/education - Routine skin assessments/care - Wound care: -- Daily - BLE abrasions- Clean with NS and pat dry. Apply Mepilex border foam for protection. -- Daily - Left arm and left hand skin tear- Clean with NS and pat dry. Hydrogel to the wound bed. Top with a band aid. - Fall precautions - high [facility] Work [facility]: Hospital Discharge instructions Additional Instructions SNF TO MANAGE: PT/OT to eval and treat Monitor VS per protocol--HTN Monitor FSBS Monitor daily weights Monitor Ortho. and pain assessment--Right knee osteoarthritis Monitor Neuro. assessment--Dementia with delirium Monitor Cardiac and Respiratory assessments--Chronic CHF, Hx of COPD Monitor assessment--Chronic kidney disease BMP in 1 week Dietitian recommendations: Magic Cup, 1 container, BID with meals Please follow CHF instructions Maintain high risk fall precautions [facility] Work Phone: InstructionsNot on filedocumented in this encounter [facility] in this [facility]Not on filedocumented in this encounter [facility] on filedocumented in this encounter [facility] on filedocumented in this encounter [facility] on filedocumented in this encounter [facility] on filedocumented in this encounter [facility] on filedocumented in this encounter [facility]Not on filedocumented in this encounter [facility] SystemProgress note Author Dennis Camargo [facility] September 10, 2021 10:47am Note Date/Time September 10, 2021 10:3 1am [facility] [address] [place] [address] Hospitalist Progress Note Signed Patient: Hilary Maldonado MR#: [id number] : 1945 Acct:[id number] Age/Sex: 76 / M Adm Date: 2 Loc: Room: [address] [place] [address] Type: ADM INOo Attending Dr: Dennis Camargo DO Copies to: ~ Date of Service: 09/10/2021 Subjective Subjective Narrative: The patient presented emergency room with a headache. In the ER he was treated with 15 mg of oxycodone immediate release. He was then admitted for monitoring of troponins. He has a well-known vascular history and follows with cardiology elsewhere chronically. He then somehow developed some type of acute delirium early in the morning. Haldol did not seem to be effective. In the director of early childhood education hours he had to be restrained. He was noncooperative with nursing staffand seem to be a danger to himself and was at a risk of falling and hurting himself. At the end we did 2 mg of Versed IM. There is a massive nationwide shortage of Ativan at this time so Versed seem like the next best option. With this he seems to have calmed down a fair amount. In the room right now he is still in bilateral wrist restraints. He denies having any headache anymore. He denies any chest pain at all. No anginal type discomfort. No tightness or pressure in his chest. No shortness of breath. Nocough. He is very hard of hearing and I have to yell in his ears for him to be able to answer many and he still does not do that with complete and accurate responses. He says that he began getting headaches about a month ago. Before that it seemslike he did not have headaches. When I ask him what he uses to treat his headaches he does not really have a specific response about using Tylenol or Motrin. He is on chronic pain medicines that I can see going back for several months with regular pickups on his OARRS report. Exam Physical Exam Vital Signs: Temp Pulse Resp BP Pulse Ox O2 Del Method 97.5 F L 70 20 164/63 H 95 Room Air 09/10/21 08:00 09/10/21 08:00 09/10/21 08:00 09/10/21 08:00 09/10/21 08:00 09/10/21 08:00 Narrative: Neuro: Seated in bed. Looks calm. Restrained with both wrists. Is now cooperating with nursing staff. Did refuse to eat breakfast earlier but then did take his routine morning medications. Cardiac: Regular rate and rhythm to auscultation. No rubs or gallops auscultation. Pulmonary: Clear to auscultation anteriorly. No wheezing. No rhonchi. Respirations are soft and easy. GI: Abdomen entirely soft and nontender throughout. No rigidity or guarding to palpitation. Extremities: No swelling or knots in the calves bilaterally. Has chronic changes to his lower extremities to suggest severe peripheral arterial disease. Legs do not cool or acutely ischemic at this time. Objective Lab Results CBC & Chem 7: 09/10/21 04:33 09/10/21 04:33 Microbiology Results Microbiology 09/10/21 01:00 Nasopharyngeal SARS-CoV-2, Influenza & RSV (PCR) - Final 09/09/21 23:55 Nasal SARS Antigen (LFIA) - Final Meds Allergies and Active Meds Allergies No Known Allergies Allergy (Verified 09/09/21 19:39) Active Meds: Active Medications Generic Name Dose Route Start Last Admin Trade Name Stephanie PRN Reason Stop Dose Admin Allopurinol 300 mg 09/10/21 09:00 09/10/21 08:53 Allopurinol 300 Mg Tablet PO 09/10/22 08:59 300 mg DAILY EDWIGE Administration Aspirin 81 mg 09/10/21 09:00 09/10/21 08:57 Aspirin 81 Mg Tab.Chew PO 09/10/22 08:59 81 mg DAILY EDWIGE Administration Atorvastatin Calcium 10 mg 09/10/21 22:00 Atorvastatin 10 Mg Tablet PO 09/10/22 21:59 HS EDWIGE Celecoxib 200 mg 09/10/21 09:00 09/10/21 08:54 Celecoxib 200 Mg Capsule PO 09/10/22 08:59 200 mg DAILY EDWIGE Administration Colchicine 0.6 mg 09/10/21 09:00 09/10/21 08:54 Colchicine 0.6 Mg Tablet PO 09/10/22 08:59 0.6 mg DAILY EDWIGE Administration Docusate Sodium 100 mg 09/10/21 03:44 Docusate 100 Mg Capsule PO 09/10/22 03:43 BID PRN Constipation Enoxaparin Sodium 40 mg 09/10/21 10:00 09/10/21 10:18 Enoxaparin 40 Mg/0.4 Ml Syringe SUBCUT 09/10/22 09:59 40 mg DAILY@10 EDWIGE Administration Famotidine 40 mg 09/10/21 09:00 09/10/21 08:54 Famotidine 20 Mg Tablet PO 09/10/22 08:59 40 mg DAILY EDWIGE Administration Potassium Chloride 40 meq/ 520 mls @ 130 mls/hr 09/10/21 08:30 09/10/21 10:18 Sodium Chloride IV 09/10/21 12:29 130 mls/hr ONCE ONE Administration Morphine Sulfate 15 mg 09/10/21 09:00 09/10/21 08:53 Morphine Sulfate 12hr Er 15 Mg Tablet.Er PO 15 mg BID EDWIGE Administration Nitroglycerin 0.4 mg 09/10/21 03:37 Nitroglycerin 0.4 Mg Tab.Subl SUBLINGUAL 09/10/22 03:36 Q5M PRN Chest Pain Ondansetron HCl 4 mg 09/10/21 03:37 Ondansetron 4 Mg/2 Ml Vial IV-PUSH 09/10/22 03:36 Q8H PRN Nausea And Vomiting Sodium Chloride 0 ml 09/09/21 19:39 Sodium Chloride 0.9 % 10 Ml Syringe IV-PUSH 09/09/22 19:38 PRN PRN Flush Vortioxetine 10 mg 09/10/21 09:00 09/10/21 08:54 Vortioxetine 10 Mg Tablet PO 09/10/22 08:59 10 mg DAILY EDWIGE Administration A&P - Hospitalist Assessment/Plan (1) Headache: (2) Elevated troponin: (3) Acute delirium: (4) ASHD (arteriosclerotic heart disease): (5) Thrombocytopenia: (6) Hypomagnesemia: (7) Hypokalemia: Plan assessment and plan: *Severe acute Headache. Development of headaches seems to be a relatively acutedevelopment. -Consult placed to neurology. -Because patient calm down a lot after administration of Versed this may be the best opportunity to get MRI of the brain. *Elevated trops: 60, 83. Next troponin pending. -admitted to tele -pt is entirely chest pain free and his ECG is NSR with no concerning changes -cont his home dose ASA and statin -ECHO is requested -Most likely a type II reaction in the setting of physiologic stress with known atherosclerotic disease without acute change. -If the echo comes back normal and enzymes do not rise any further accelerating pattern then pt can get a stress test as an outpatient *Macrocytosis with generalized weakness -TSH 1.68 -Free t4 0.90 -B12 339 -folate 11.6 -Also checking phosphatidyl ethanol. *Hypomagnesemia, hypokalemia. -We will replete both electrolytes intravenously. *Chronic medical issues: -Gout -HTN -Chronic back pain -HLP cont his home meds *DVT ppx with Lovenox Documented By: Dennis Camargo DO 1029 Signed By: <Electronically signed by Dennis Camargo, DO> 09/10/21 1047 [facility] Work Phone: Progress note Author Pedro Luis Frye [facility] October 27, 2022 12:29pm Note Date/Time October 27, 2022 11:05am [facility] [address] [place] [address] Hospitalist Progress Note Signed with Addenda Patient: Hilary Maldonado MR#: [id number] : 1945 Acct:[id number] Age/Sex: 77 / M Adm Date: 3 Loc: Room: [address] [place] [address] Type: ADM IN Attending Dr: Pedro Luis Frye MD Copies to: ~ ADDENDUM1 Patient was personally seen by me on the day of encounter, reviewed his history and performed hill elements of exam and formulated the plan of care and confirmedthe resident/interns note below. Patient history of chronic pain on opiates and follows with pain management in [place]. Also has history of gout presented to ER with severe right knee pain. Noted to have significant swelling with clinical suspicion of acute gout flare. Appreciate orthopedic consultation. So far no signs of infection and will deferdecision regarding aspiration of the joint to the orthopedic service. We will avoid excessive opiates since he does appear drowsy and a poor historian. Started on Toradol, scheduled dose of acetaminophen and colchicine. Consider steroid if no improvement. Patient also has history of chronic thrombocytopeniaand recommend outpatient follow-up. Addendum Documented By: Pedro Luis Frye MD 10/27/22 1229 Addendum Signed By: <Electronically signed by Pedro Luis Frye MD> 10/27/22 1229 Date of Service: 10/27/2022 Subjective Subjective Narrative: Mr. Maldonado was examined bedside resting comfortably. He was unable to provide subjective detail due to somnolence, he was falling asleep during our encounter however aroused on voice amplification. Patient was seen in the ED twice as he initially left AMA. He may also be hard on hearing. While awake patient was unable to verbalize symptoms preferring to nod or utilize EOM as communication. UDS performed in ED was positive for opiates. Thrombocytopenia was noted. Exam Physical Exam Vital Signs: Temp Pulse Resp BP Pulse Ox O2 Del Method 98.6 F 68 20 131/71 97 Room Air 10/27/22 07:57 10/27/22 07:57 10/27/22 07:57 10/27/22 07:57 10/27/22 07:57 10/27/22 07:57 Narrative: CONST- Appears well -developed and well nourished. Frail, cachectic HEAD - Normocephalic and atraumatic EENT-Sclera nonicteric, conjunctive are non-erythemic, dry oral mucosa, pharynx clear NECK-Supple, no cervical lymphadenopathy CARDIAC-normal rate, regular rhythm, S1 & S2. PULM-diminished without wheeze or rhonchi, RA, no accessory muscle use or cough noted ABD - Soft. Bowel sounds are normal. No distention. No tenderness EXTREM- generalized swelling to R knee, tender to palpation to right knee, no redness or warmth noted SKIN- W/D good turgor, chronic discoloration to bilateral feet ankles MS- MAEX4 spontaneously with equal with equal strength-weakness and pain to RLE NEURO- A&Ox3 speech clear and tongue midline, equal facial symmetry, no focal motor deficits PSYCH-somnolent Objective Lab Results 10/27/22 06:23 10/27/22 08:58 Meds Allergies and Active Meds Allergies No Known Allergies Allergy (Verified 10/26/22 21:04) Active Meds: Active Medications Generic Name Dose Route Start Last Admin Trade Name Freq PRN Reason Stop Dose Admin Acetaminophen 1,000 mg 10/27/22 10:00 10/27/22 10:38 Acetaminophen 500 Mg Tablet PO 10/27/23 09:59 1,000 mg Q6H EDWIGE Administration Docusate Sodium 100 mg 10/27/22 09:00 10/27/22 10:41 Docusate 100 Mg Capsule PO 10/27/23 08:59 100 mg BID EDWIGE Administration Hydralazine HCl 10 mg 10/27/22 00:12 Hydralazine 20 Mg/Ml Vial IV-PUSH 10/27/23 00:11 Q4H PRN Hypertension Hydromorphone HCl 1 mg 10/27/22 00:12 10/27/22 08:01 Hydromorphone 0.5 Mg/0.5 Ml Syringe IV-PUSH 1 mg Q3H PRN Administration Pain Scale 8 - 10 Lactated Ringer's 1,000 mls @ 75 mls/hr 10/27/22 00:15 10/27/22 01:16 Lactated Ringers IV 10/28/22 02:54 75 mls/hr .[id number] EDWIGE Administration Magnesium Sulfate 2 gm in 50 mls @ 25 mls/hr 10/27/22 10:00 10/27/22 10:41 Magnesium Sulf 2gm-*Swfi* IV 10/27/22 11:59 25 mls/hr ONCE ONE Administration Ketorolac Tromethamine 30 mg 10/27/22 10:00 10/27/22 10:39 Ketorolac Tromethamine 30 Mg/Ml Vial IV-PUSH 11/01/22 09:59 30 mg Q6H PRN Administration pain Naloxone HCl 0.1 mg 10/27/22 00:12 Naloxone Hcl 0.4 Mg/Ml Vial IV-PUSH 10/27/23 00:11 Q2M PRN Opioid Reversal Nicotine 1 each 10/27/22 00:23 Nicotine Patch 21 Mg/24hr 1 Each Patch.Td24 TRANSDERML 12/07/22 09:01 DAILY PRN Nicotine Cravings Oxycodone HCl 5 mg 10/27/22 00:12 10/27/22 01:15 Oxycodone Ir 5 Mg Tablet PO 5 mg Q6HR PRN Administration Pain Scale 4 - 7 Sodium Chloride 10 ml 10/27/22 09:40 Sodium Chloride 0.9 % 10 Ml Syringe IV-PUSH 10/27/23 09:39 PRN PRN Flush A&P - Hospitalist Assessment/Plan (1) Effusion of right knee: (2) Frequent falls: (3) Generalized weakness: (4) Chronic pain: (5) Thrombocytopenia: (6) HTN (hypertension): (7) Gout: (8) Inability to ambulate due to knee: (9) Impaired mobility and ADLs: Plan Patient was somnolent, unable to provide subjective detail. Otherwise comfortable, pleasant. History of irritability on admission. UDS in ED positive for opiates. Patient left AMA and returned shortly after with improvedmood. Intractable right knee pain Right knee effusion, chondrocalcinosis found on x-ray Inability to ambulate, impaired ADLs Appreciate Ortho consultaton. Recommend to treat as an acute gout attack and plan for I&D if labs indicative of septic joint -We will begin colchicine 1.2 mg then 0.6 mg after 1 hour to total 1.8 mg today then hold for 3 days and continue gout prophylaxis outpatient ? Continue pain control will titrate down as needed Frequent falls Generalized weakness ? Consult PT/OT Thrombocytopenia Platelet count 103 today; August, July Possibly immune etiology. We will continue to monitor. Chronic conditions Chronic pain?patient takes pregabalin and morphine at home, will likely be difficult to manage acute pain at this time Thrombocytopenia?current platelet count 104, monitor HTN?monitor, resume home meds when confirmed Gout?patient takes allopurinol and colchicine at home, will resume when confirmed Tobacco dependence?tobacco cessation, nicotine patch as needed DVT PPx-SCDs, will defer pharmacological therapy due to thrombocytopenia Diet order-regular CODE STATUS-DNR CCA without intubation as discussed with patient Documented By: Ron Diaz MD, RES 10/27/22 104 2 Signed By: <Electronically signed by RES Ron Diaz> 10/27/22 1105 <Electronically signed by Pedro Luis Frye MD> 10/27/22 1227 [facility] Work Phone: Progress note Author Pedro Luis Frye [facility] October 29, 2022 8:32am Note Date/Time October 28, 2022 8:20am [facility] [address] [place] [address] Hospitalist Progress Note Signed with Addenda Patient: Hilary Maldonado MR#: [id number] : 1945 Acct:[id number] Age/Sex: 77 / M Adm Date: 3 Loc: Room: [address] [place] [address] Type: ADM IN Attending Dr: Pedro Luis Frye MD Copies to: ~ ADDENDUM1 Patient was personally seen by me on the day of encounter, reviewed his history and performed hill elements of exam and formulated the plan of care and confirmedthe resident/interns note below. Addendum Documented By: Pedro Luis Frye MD 10/29/22 0832 Addendum Signed By: <Electronically signed by Pedro Luis Frye MD> 10/29/22 0832 Date of Service: 10/28/2022 Subjective Subjective Narrative: A very hard on hearing Mr. Maldonado was examined seated upright comfortably in room chair. He able to verbalize today, alert and oriented however unable to providesubjective detail due to lack of medical knowledge and responsive only to voice amplification. Mr. Barrera' family was supposed to visit however they are sick with COVID and will be unable to. Called and spoke with Hilary' sister over thephone who stated she does not want him to live alone anymore. He has a history of not caring for himself and medication noncompliance. Would prefer him to be moved to inpatient PT upstairs then an extended care facility. She canceled theENT appointment however the ENT office stated it was an urgent appointment givenhis presentation. They intend to reschedule ENT appointment next week. Sister states she has leukemia and her own health problems and can no longer coordinatecare for Hilary. Exam Physical Exam Vital Signs: Temp Pulse Resp BP Pulse Ox O2 Del Method 97.1 F L 50 L 17 105/60 94 L Room Air 10/28/22 04:15 10/28/22 04:15 10/28/22 04:15 10/28/22 04:15 10/28/22 04:15 10/28/22 06:43 Narrative: CONST- Appears well -developed, frail, cachectic HEAD - Normocephalic and atraumatic. Single firm palpable left preauricular lymph node approximately 3 x 2 cm EENT-Sclera nonicteric, conjunctive are non-erythemic, dry oral mucosa, pharynx clear NECK-Supple, no cervical lymphadenopathy CARDIAC-normal rate, regular rhythm, S1 & S2. PULM-diminished without wheeze or rhonchi, RA, no accessory muscle use or cough noted ABD - Soft. Bowel sounds are normal. No distention. No tenderness EXTREM- generalized swelling to R knee, tender to palpation to right knee, no redness or warmth noted SKIN- W/D good turgor, chronic discoloration to bilateral feet ankles MS- MAEX4 spontaneously with equal with equal strength-weakness and pain to RLE NEURO- A&Ox3 speech clear and tongue midline, equal facial symmetry, no focal motor deficits PSYCH-irritable mood on questioning Objective Lab Results 10/27/22 06:23 10/27/22 08:58 Meds Allergies and Active Meds Allergies No Known Allergies Allergy (Verified 10/26/22 21:04) Active Meds: Active Medications Generic Name Dose Route Start Last Admin Trade Name Freq PRN Reason Stop Dose Admin Acetaminophen 1,000 mg 10/27/22 10:00 10/27/22 21:45 Acetaminophen 500 Mg Tablet PO 10/27/23 09:59 1,000 mg Q6H EDWIGE Administration Docusate Sodium 100 mg 10/27/22 09:00 10/27/22 21:45 Docusate 100 Mg Capsule PO 10/27/23 08:59 100 mg BID EDWIGE Administration Hydralazine HCl 10 mg 10/27/22 00:12 Hydralazine 20 Mg/Ml Vial IV-PUSH 10/27/23 00:11 Q4H PRN Hypertension Ketorolac Tromethamine 30 mg 10/27/22 10:00 10/27/22 21:56 Ketorolac Tromethamine 30 Mg/Ml Vial IV-PUSH 11/01/22 09:59 30 mg Q6H PRN Administration pain Morphine Sulfate 15 mg 10/27/22 21:00 10/27/22 21:45 Morphine Sulfate 12hr Er 15 Mg Tablet.Er PO 15 mg Q12HR EDWIGE Administration Naloxone HCl 0.1 mg 10/27/22 00:12 Naloxone Hcl 0.4 Mg/Ml Vial IV-PUSH 10/27/23 00:11 Q2M PRN Opioid Reversal Nicotine 1 each 10/27/22 00:23 Nicotine Patch 21 Mg/24hr 1 Each Patch.Td24 TRANSDERML 12/07/22 09:01 DAILY PRN Nicotine Cravings Pregabalin 100 mg 10/27/22 14:00 10/27/22 21:45 Pregabalin 100 Mg Capsule PO 04/25/23 13:59 100 mg TID EDWIGE Administration Sodium Chloride 10 ml 10/27/22 09:40 Sodium Chloride 0.9 % 10 Ml Syringe IV-PUSH 10/27/23 09:39 PRN PRN Flush A&P - Hospitalist Assessment/Plan (1) Effusion of right knee: (2) Frequent falls: (3) Generalized weakness: (4) Chronic pain: (5) Thrombocytopenia: (6) HTN (hypertension): (7) Gout: (8) Inability to ambulate due to knee: (9) Impaired mobility and ADLs: Plan Patient seated upright watching TV comfortably, unable to provide subjective detail due to poor medical knowledge competency. History of irritability at home and on admission. PDMP was reviewed. Patient home med morphine sulfate 15mg ER twice daily by pain management for moderate/severe gouty knee joint and pain. Spoke with Zora Tobin, Mr. Brarera's sister. States he lives alone and cannot carefor himself properly, is noncompliant with meds once he moved to extended-care facility. Patient missed an ENT appointment for progressive hearing loss. Sister states he is easily overwhelmed by medical terms and has low threshold irritability given hearing loss. She states she can no longer coordinate care for Hilary given her own health issues i.e. leukemia, tendinitis. We will consult psych for competency/decision-making capacity. Intractable right knee pain Right knee effusion, chondrocalcinosis found on x-ray Inability to ambulate, impaired ADLs, history of medication noncompliance Appreciate Ortho patient denied consent for right knee joint aspiration and culture/analysis. Given imaging, patient history of gout and nonacute presentation recommend to treat as an acute gout attack and plan for I&D if labs/symptom indicative of septic joint. -Will start oral prednisone 40 mg daily then titrate down over a week -Hold NSAIDs, colchicine, indomethacin per renal function. Creatinine 1.80 today from 1.30 after single dose colchicine. ? Continue pain control with home med dose of morphine sulfate 15 mg ER twice daily and Tylenol p.o. every 6 as needed. Acute kidney injury Discontinue NSAIDs and colchicine. Follow up renal function in am labs. Frequent falls Generalized weakness ? Consult PT/OT Thrombocytopenia Platelet count 103 today; August, July Possibly immune etiology. We will continue to monitor. DVT PPx-SCDs, will defer pharmacological therapy due to thrombocytopenia Diet order-regular CODE STATUS-DNR CCA without intubation Documented By: Ron Diaz MD, RES 10/28/22 081 4 Signed By: <Electronically signed by RES Ron Diaz> 10/28/22 1515 <Electronically signed by Pedro Luis Frye MD> 10/29/22 0832 [facility] Work Phone: Progress note Author Victor M Kumar [facility] October 28, 2022 11:57am Note Date/Time October 28, 2022 11:58am [facility] [address] [place] [address] Orthopedic Progress Note Signed Patient: Hilary Maldonado MR#: [id number] : 1945 Acct:[id number] Age/Sex: 77 / M Adm Date: 3 Loc: 3T Room: [address] [place] [address] Type: ADM IN Attending Dr: Pedro Luis Frye MD Copies to: ~ Date of Service: 10/28/2022 Subjective Subjective Interval History: Patient seen evaluated bedside today. He is much more conversive and pleasant today. He tells me his knee is feeling much better today. He is sitting up in a chair at bedside and he feels that he can move the knee much better today. Exam Physical Exam Vital Signs: Temp Pulse Resp BP Pulse Ox O2 Del Method 97.1 F L 50 L 17 105/60 94 L Room Air 10/28/22 04:15 10/28/22 04:10/28/22 04:10/28/22 04:10/28/22 04:10/28/22 06:43 Narrative: Patient seen and evaluated on regular nursing floor. He is sitting up in bedside chair. He was pleasant and conversive today. Right knee is evaluated. He still has a moderate to large effusion but not as swollen as yesterday. He can get the knee to full extension with flexion past 90 degrees. He can perform a straight leg raise. He does still have some tenderness to the knee but it is not warm or red. He has no abnormal calf tenderness and moves the ankle up and down without difficulty. Foot is warm well perfused Objective Labs Labs: Laboratory Results - last 24 hr 10/27/22 10/27/22 10/28/22 06:23 08:58 08:00 Corrected WBC 7.4 Uncorrected WBC Count 7.4 RBC 3.60 L Hgb 12.3 L Hct 36.4 L MCV 101.0 MCH 34.2 MCHC 33.9 RDW 15.4 H Plt Count 92 L MPV 10.0 Neut % (Auto) 64.6 Lymph % (Auto) 24.1 [place] % (Auto) 7.5 Eos % (Auto) 3.3 Baso % (Auto) 0.5 Nucleat RBC Rel Count 0.1 Neut # (Auto) 4.8 Lymph # (Auto) 1.8 [place] # (Auto) 0.6 Eos # (Auto) 0.2 Baso # (Auto) 0.0 PHA Creatinine Clear Sodium Potassium Chloride Carbon Dioxide Anion Gap BUN Creatinine Est GFR (CKD-EPI) Glucose Uric Acid 4.6 Calcium Magnesium Total Bilirubin AST ALT Alkaline Phosphatase Total Protein Albumin Globulin Albumin/Globulin Ratio Add-On Test Request Cancelled 10/28/22 08:00 Corrected WBC Uncorrected WBC Count RBC Hgb Hct MCV MCH MCHC RDW Plt Count MPV Neut % (Auto) Lymph % (Auto) [place] % (Auto) Eos % (Auto) Baso % (Auto) Nucleat RBC Rel Count Neut # (Auto) Lymph # (Auto) [place] # (Auto) Eos # (Auto) Baso # (Auto) PHA Creatinine Clear 40.59 Sodium 138 Potassium 3.6 Chloride 106 Carbon Dioxide 29.7 Anion Gap 5.9 L BUN 32 H Creatinine 1.80 H D Est GFR (CKD-EPI) 38.528 Glucose 87 Uric Acid Calcium 8.0 L Magnesium 2.2 Total Bilirubin 0.7 AST 46 H ALT 20 Alkaline Phosphatase 66 Total Protein 5.8 L D Albumin 2.9 L D Globulin 2.9 Albumin/Globulin Ratio 1.0 Add-On Test Request Assessment / Plan Assessment and plan (1) Effusion of right knee: Code(s): M25.461 - Effusion, right knee Status: Acute (2) Frequent falls: Code(s): R29.6 - Repeated falls Status: Acute (3) Generalized weakness: Code(s): R53.1 - Weakness Status: Acute (4) Chronic pain: Code(s): G89.29 - Other chronic pain Status: Acute (5) Thrombocytopenia: Code(s): D69.6 - Thrombocytopenia, unspecified Status: Acute (6) HTN (hypertension): Code(s): I10 - Essential (primary) hypertension Status: Acute (7) Gout: Code(s): M10.9 - Gout, unspecified Status: Acute (8) Inability to ambulate due to knee: Code(s): R26.2 - Difficulty in walking, not elsewhere classified Status: Acute (9) Impaired mobility and ADLs: Code(s): Z74.09 - Other reduced mobility; Z78.9 - Other specified health status Status: Acute Plan Hilary is now on hospital day 2 with right knee pain and effusion. He has been getting anti-inflammatories as well as a treatment for acute gout. He has had improvement overnight. I have discussed with him a possible aspiration today to1) obtain fluid for analysis and 2) decrease his effusion. Patient does not want an aspiration as he remembers them from prior and they are painful. I explained to the patient that with his improvement we could continue ongoing treatment for gout but if he has any worsening of his pain then there would be concern for infection and aspiration would be indicated. I would recommend a trial of steroids to see how he responds. Continue colchicine. He continues improvement then no further intervention is necessary. I would reinforce use ofallopurinol as prescribed because the patient does tell me that he quit taking his gout medications. Documented By: Victor M Kumar DO 10/28/22 1154 Signed By: <Electronically signed by Victor M Kumar DO> 10/28/22 1157 [facility] Work Phone: Progress note Author Pedro Luis Frye [facility] October 29, 2022 2:05pm Note Date/Time October 29, 2022 11:12am [facility] [address] [place] [address] Hospitalist Progress Note Signed with Addenda Patient: Hilary Maldonado MR#: [id number] : 1945 Acct:[id number] Age/Sex: 77 / M Adm Date: 3 Loc: Room: [address] [place] [address] Type: ADM IN Attending Dr: Pedro Luis Frye MD Copies to: ~ ADDENDUM1 Patient was personally seen by me on the day of encounter, reviewed his history and performed hill elements of exam and formulated the plan of care and confirmedthe resident/interns note below. This morning on examination patient is more conversant and answering appropriately. He understands that he is n the hospital for treatment of right knee pain due to acute gout flare. Discussed with the patient regarding skillednursing facility which he refused and wants to go home. He is okay with home health care. Given his improving right knee pain plan to discharge home tomorrow if continues to improve. Renal function improving as well. Appreciatepsychiatry consultation and patient does have capacity to make decision. Addendum Documented By: Pedro Luis Frye MD 10/29/221404 Addendum Signed By: <Electronically signed by Pedro Luis Frye MD> 10/29/221404 Date of Service: 10/29/2022 Subjective Subjective Narrative: A very hard on hearing Mr. Maldonado was examined seated upright comfortably in room chair. He is able to verbalize today, alert and oriented more cooperative and able to provide more subjective detail improved from yesterday. States he refuses to drink water, does not like the taste only drink sugary sodas. Mr. Barrera' family was supposed to visit however they are sick with COVID and will be unable to. Hilary' sister who has leukemia stated she does not want him to live alone anymore can no longer coordinate care for Hilary. He has a history ofnot caring for himself and medication noncompliance. I was able to discuss medication compliance with Hilary. Patient walked me through his ritual of setting up his weekly pill schedule. Would prefer him to be moved to inpatient PT upstairs then an extended care facility. She canceled the ENT appointment however the ENT office stated it was an urgent appointment. They intend to reschedule ENT appointment next week. Exam Physical Exam Vital Signs: Temp Pulse Resp BP Pulse Ox O2 Del Method 97.6 F 64 18 149/77 H 99 Room Air 10/29/22 08:00 10/29/22 08:00 10/29/22 08:00 10/29/22 08:00 10/29/22 08:00 10/29/22 08:00 Narrative: CONST- Appears well -developed, frail, cachectic HEAD - Normocephalic and atraumatic. Single firm palpable left preauricular lymph node approximately 3 x 2 cm EENT-Sclera nonicteric, conjunctive are non-erythemic, dry oral mucosa, pharynx clear NECK-Supple, no cervical lymphadenopathy CARDIAC-normal rate, regular rhythm, S1 & S2. PULM-diminished without wheeze or rhonchi, RA, no accessory muscle use or cough noted ABD - Soft. Bowel sounds are normal. No distention. No tenderness EXTREM- generalized swelling to R knee, tender to palpation to right knee, no redness or warmth noted SKIN- W/D good turgor, chronic discoloration to bilateral feet ankles MS- MAEX4 spontaneously with equal with equal strength-weakness and pain to RLE NEURO- A&Ox3 speech clear and tongue midline, equal facial symmetry, no focal motor deficits PSYCH-irritable mood on questioning Objective Lab Results 10/29/22 06:09 10/29/22 06:09 Meds Allergies and Active Meds Allergies No Known Allergies Allergy (Verified 10/26/22 21:04) Active Meds: Active Medications Generic Name Dose Route Start Last Admin Trade Name Stephanie PRN Reason Stop Dose Admin Acetaminophen 1,000 mg 10/27/22 10:00 10/29/22 10:05 Acetaminophen 500 Mg Tablet PO 10/27/23 09:59 1,000 mg Q6H EDWIGE Administration Atorvastatin Calcium 10 mg 10/28/22 22:00 10/28/22 22:19 Atorvastatin 10 Mg Tablet PO 10/28/23 21:59 10 mg HS EDWIGE Administration Docusate Sodium 100 mg 10/27/22 09:00 10/29/22 10:06 Docusate 100 Mg Capsule PO 10/27/23 08:59 100 mg BID EDWIGE Administration Hydralazine HCl 10 mg 10/27/22 00:12 Hydralazine 20 Mg/Ml Vial IV-PUSH 10/27/23 00:11 Q4H PRN Hypertension Mirtazapine 15 mg 10/28/22 22:00 10/28/22 22:19 Mirtazapine 15 Mg Tablet PO 10/28/23 21:59 15 mg HS EDWIGE Administration Morphine Sulfate 15 mg 10/27/22 21:00 10/29/22 10:05 Morphine Sulfate 12hr Er 15 Mg Tablet.Er PO 15 mg Q12HR EDWIGE Administration Naloxone HCl 0.1 mg 10/27/22 00:12 Naloxone Hcl 0.4 Mg/Ml Vial IV-PUSH 10/27/23 00:11 Q2M PRN Opioid Reversal Nicotine 1 each 10/27/22 00:23 Nicotine Patch 21 Mg/24hr 1 Each Patch.Td24 TRANSDERML 12/07/22 09:01 DAILY PRN Nicotine Cravings Pantoprazole Sodium 40 mg 10/28/22 15:05 10/29/22 10:06 Pantoprazole 40 Mg Tablet. PO 10/28/23 15:04 40 mg DAILY EDWIGE Administration Prednisone 40 mg 10/28/22 11:55 10/29/22 10:05 Prednisone 20 Mg Tablet PO 10/28/23 11:54 40 mg DAILY EDWIGE Administration Pregabalin 100 mg 10/28/22 21:00 10/29/22 10:05 Pregabalin 100 Mg Capsule PO 04/26/23 20:59 100 mg BID EDWIGE Administration Sodium Chloride 10 ml 10/27/22 09:40 Sodium Chloride 0.9 % 10 Ml Syringe IV-PUSH 10/27/23 09:39 PRN PRN Flush Vortioxetine 10 mg 10/29/22 09:00 10/29/22 10:05 Vortioxetine 10 Mg Tablet PO 10/29/23 08:59 10 mg DAILY EDWIGE Administration A&P - Hospitalist Assessment/Plan (1) Effusion of right knee: (2) Frequent falls: (3) Generalized weakness: (4) Chronic pain: (5) Thrombocytopenia: (6) HTN (hypertension): (7) Gout: (8) Inability to ambulate due to knee: (9) Impaired mobility and ADLs: Plan Patient seated upright watching TV comfortably, now able to provide subjective detail with improved competency. History of irritability at home and on admission. PDMP was reviewed. Patient home med morphine sulfate 15 mg ER twicedaily by pain management for moderate/severe gouty knee joint and pain. Sister stated he lives alone and cannot care for himself properly, is noncompliant with meds prefers he be moved to extended-care facility. Patient missed an ENT appointment for progressive hearing loss. Sister states he is easily overwhelmed by medical terms and has low threshold irritability given hearing loss. She states she can no longer coordinate care for Hilary given herown health issues i.e. leukemia, tendinitis. Appreciate psych consult patient currently has capacity make medical decisions. Pending inpatient rehab/SNF Intractable right knee pain Right knee effusion, chondrocalcinosis found on x-ray Inability to ambulate, impaired ADLs, history of medication noncompliance Appreciate Ortho patient denied consent for right knee joint aspiration and culture/analysis. Given imaging, patient history of gout and nonacute presentation recommend to treat as an acute gout attack and plan for I&D if labs/symptom indicative of septic joint. -Will start oral prednisone 40 mg daily then titrate down over a week -Hold NSAIDs, colchicine, indomethacin per renal function. Creatinine 1.80 today from 1.30 after single dose colchicine. ? Continue pain control with home med dose of morphine sulfate 15 mg ER twice daily and Tylenol p.o. every 6 as needed. Frequent falls Generalized weakness ? Consult PT/OT Thrombocytopenia Platelet count 103 today; August, July Possibly immune etiology. We will continue to monitor. Chronic conditions Chronic pain?patient takes pregabalin and morphine at home, will likely be difficult to manage acute pain at this time Thrombocytopenia?current platelet count 104, monitor HTN?monitor, resume home meds when confirmed Gout?patient takes allopurinol and colchicine at home, will resume when confirmed Tobacco dependence?tobacco cessation, nicotine patch as needed DVT PPx-SCDs, will defer pharmacological therapy due to thrombocytopenia Diet order-regular CODE STATUS-DNR CCA without intubation as discussed with patient Documented By: Ron Diaz MD, RES 10/29/22 105 8 Signed By: <Electronically signed by RES Ron Diaz> 10/29/22 1112 <Electronically signed by Pedro Luis Frye MD> 10/29/22 1403 [facility] Work Phone: Progress note Author Aashish Natarajan [facility] November 03, 2022 2:20pm Note Date/Time November 02, 2022 12:33pm [facility] [address] [place] [address] Hospitalist Progress Note Signed Patient: Hilary Maldonado MR#: [id number] : 1945 Acct:[id number] Age/Sex: 77 / M Adm Date: 3 Loc: 4N Room: [address] [place] [address] Type: ADM IN Attending Dr: Aashish Natarajan DO Copies to: ~ Date of Service: 11/02/2022 Subjective Subjective Narrative: Seen and examined at bedside. Resting comfortably in bed, denies any pain or discomfort. On room air with oxygen saturations in the high 90s, reporting productive intermittent cough. No fever or chills. Reporting good appetite today. Exam Physical Exam Vital Signs: Temp Pulse Resp BP Pulse Ox O2 Del Method 97.5 F L 51 L 18 167/89 H 95 Room Air 11/02/22 07:27 11/02/22 12:12 11/02/22 12:12 11/02/22 07:27 11/02/22 07:27 11/02/22 03:46 Narrative: CONST- Appears well -developed and well nourished No acute distress. CARDIAC-normal rate, regular rhythm, normal S1 & S2. PULM-clear without wheeze or rhonchi, RA, no accessory muscle use or cough noted ABD - Soft. Bowel sounds are normal. No distention No tenderness EXTREM-no edema BLE calves nontender SKIN- W/D good turgor Objective Lab Results 11/01/22 19:49 11/02/22 04:56 Microbiology Results Microbiology 11/02/22 00:15 Nasopharyngeal Respiratory Panel (PCR) - Final Meds Allergies and Active Meds Allergies No Known Allergies Allergy (Verified 11/01/22 16:37) Active Meds: Active Medications Generic Name Dose Route Start Last Admin Trade Name Freq PRN Reason Stop Dose Admin Acetaminophen 650 mg 11/01/22 22:27 Acetaminophen 325 Mg Tablet PO 11/01/23 22:26 Q6HR PRN Pain Scale 1 - 3 or fever Albuterol/Ipratropium 3 ml 11/02/22 08:00 11/02/22 12:12 Ipratropium/Albuterol 0.5-3 Mg 3 Ml Ampul.Neb INHALATION 11/02/23 07:59 3 ml QID.RESP EDWIGE Administration Allopurinol 300 mg 11/02/22 09:00 11/02/22 08:39 Allopurinol 300 Mg Tablet PO 11/02/23 08:59 300 mg DAILY EDWIGE Administration Amlodipine Besylate 5 mg 11/02/22 12:30 Amlodipine 5 Mg Tablet PO 11/02/23 12:29 DAILY EDWIGE Aspirin 81 mg 11/02/22 09:00 11/02/22 08:39 Aspirin 81 Mg Tablet.Dr PO 11/02/23 08:59 81 mg DAILY EDWIGE Administration Atorvastatin Calcium 10 mg 11/02/22 22:00 Atorvastatin 10 Mg Tablet PO 11/02/23 21:59 HS EDWIGE Celecoxib 200 mg 11/02/22 09:00 11/02/22 08:39 Celecoxib 200 Mg Capsule PO 11/02/23 08:59 200 mg DAILY EDWIGE Administration Colchicine 1.2 mg 11/02/22 09:00 11/02/22 08:39 Colchicine 0.6 Mg Tablet PO 11/02/23 08:59 1.2 mg DAILY EDWIGE Administration Dexamethasone Sodium Phosphate 6 mg 11/02/22 09:00 11/02/22 08:39 Dexamethasone Sod Phosphate 4 Mg/Ml Vial IV-PUSH 11/11/22 09:01 6 mg DAILY EDWIGE Administration Docusate Sodium 100 mg 11/01/22 22:36 Docusate 100 Mg Capsule PO 11/01/23 22:35 BID PRN Constipation Enoxaparin Sodium 40 mg 11/02/22 10:00 11/02/22 10:28 Enoxaparin 40 Mg/0.4 Ml Syringe SUBCUT 11/02/23 09:59 40 mg DAILY@10 EDWIGE Administration Famotidine 40 mg 11/02/22 09:00 11/02/22 08:39 Famotidine 20 Mg Tablet PO 11/02/23 08:59 40 mg DAILY EDWIGE Administration Guaifenesin 600 mg 11/01/22 22:27 Guaifenesin 600 Mg Tab.Er.12h PO 11/01/23 22:26 BID PRN Cough Guaifenesin/Dextromethorphan 10 ml 11/01/22 22:47 Guaif/Dextromethorphan Syrup 10 Ml Udc PO 11/01/23 22:46 Q8H PRN Cough Lactated Ringer's 1,000 mls @ 75 mls/hr 11/01/22 22:30 11/02/22 00:02 Lactated Ringers IV 11/03/22 01:09 75 mls/hr .[id number] EDWIGE Administration Remdesivir 100 mg/ Dextrose 250 mls @ 250 mls/hr 11/03/22 05:30 IV 11/06/22 06:29 Q24H EDWIGE Melatonin 3 mg 11/01/22 22:27 Melatonin 3 Mg Tablet PO 11/01/23 22:26 QHS PRN Insomnia Mirtazapine 15 mg 11/02/22 22:00 Mirtazapine 15 Mg Tablet PO 11/02/23 21:59 HS EDWIGE Morphine Sulfate 15 mg 11/01/22 22:36 Morphine Sulfate 12hr Er 15 Mg Tablet.Er PO BID PRN Pain 8-10 Pregabalin 100 mg 11/02/22 09:00 11/02/22 08:39 Pregabalin 100 Mg Capsule PO 05/01/23 08:59 100 mg TID EDWIGE Administration Prochlorperazine Edisylate 5 mg 11/01/22 22:27 Prochlorperazine Edisylate 10 Mg/2 Ml Vial IV-PUSH 11/01/23 22:26 Q4H PRN Nausea And Vomiting Sodium Chloride 0 ml 11/01/22 16:36 11/01/22 23:58 Sodium Chloride 0.9 % 10 Ml Syringe IV-PUSH 11/01/23 16:35 10 ml PRN PRN Administration Flush Sodium Chloride 10 ml 11/02/22 05:30 11/02/22 06:20 Sodium Chloride 0.9 % 10 Ml Syringe IV-PUSH 11/12/22 05:29 10 ml Q24H EDWIGE Administration Vortioxetine 10 mg 11/02/22 09:00 11/02/22 08:39 Vortioxetine 10 Mg Tablet PO 11/02/23 08:59 10 mg DAILY EDWIGE Administration A&P - Hospitalist Assessment/Plan (1) Unable to care for self: (2) Impaired mobility and ADLs: (3) Inability to ambulate due to knee: Plan COVID-19 infection?tested positive on admission Denies shortness of breath, intermittent productive cough, remains afebrile. Noleukocytosis ?CXR in ED with hazy bibasilar airspace opacities ?On remdesivir 100 mg every 24 hours ?On dexamethasone 6 mg IV daily ?Airborne isolation ?Continue supportive care with Tylenol, Mucinex Gait instability/Physical debility Poor oral intake ?Continue gentle hydration PT/OT evaluations ?acoustical material worker/caser up for appropriate and safe disposition ?Maintain fall precaution Diet: Regular DVT ppx: Lovenox Code status: DNR CCA without intubation Disposition: Observation status I personally reviewed the relevant history, the hill elements of the physical exam, and discussed and formulated the plan of care with the nurse practitioner,and I confirm the nurse practitioner's documentation as written. Aashish Natarajan DO Internal Medicine Hospitalist Documented By: Shawna Hartman APRN 11/02/22 1230 Signed By: <Electronically signed by PHYLLIS Hartman> 11/02/22 1525 <Electronically signed by Aashish Natarajan DO> 11/03/22 1420 [facility] Work Phone: Progress note Author Aashish Natarajan [facility] November 03, 2022 2:20pm Note Date/Time November 03, 2022 1:55pm [facility] [address] [place] [address] Hospitalist Progress Note Signed Patient: Hilary Maldonado MR#: [id number] : 1945 Acct:[id number] Age/Sex: 77 / M Adm Date: 3 Loc: 4N Room: [address] [place] [address] Type: ADM IN Attending Dr: Aashish Natarajan DO Copies to: ~ Date of Service: 11/03/2022 Subjective Subjective Narrative: Seen and examined, resting comfortably in chair. Denies any pain or discomfort,on room air with oxygen saturations above 90%. Continues with intermittent nonproductive cough which is improving. No fever, chills, nausea vomiting or diarrhea. Exam Physical Exam Vital Signs: Temp Pulse Resp BP Pulse Ox O2 Del Method 97.6 F 46 L 12 143/78 H 99 Room Air 11/03/22 07:26 11/03/22 07:26 11/03/22 11:46 11/03/22 11:46 11/03/22 11:46 11/03/22 11:46 Narrative: CONST- Appears well -developed and well nourished No acute distress. CARDIAC-normal rate, regular rhythm, normal S1 & S2. PULM-clear without wheeze or rhonchi, RA, no accessory muscle use or cough noted ABD - Soft. Bowel sounds are normal. No distention No tenderness EXTREM-no edema BLE calves nontender SKIN- W/D good turgor Objective Lab Results 11/01/22 19:49 11/03/22 05:47 Meds Allergies and Active Meds Allergies No Known Allergies Allergy (Verified 11/01/22 16:37) Active Meds: Active Medications Generic Name Dose Route Start Last Admin Trade Name Freq PRN Reason Stop Dose Admin Acetaminophen 650 mg 11/01/22 22:27 11/02/22 14:43 Acetaminophen 325 Mg Tablet PO 11/01/23 22:26 650 mg Q6HR PRN Administration Pain Scale 1 - 3 or fever Albuterol/Ipratropium 1 puff 11/03/22 08:00 11/03/22 11:33 Ipratropium/Albuterol 20 Mcg/100 Mcg *Nf* 120 Puff Mist.Inhal INHALATION 11/03/23 07:59 1 puff QID.RESP EDWIGE Administration Allopurinol 300 mg 11/02/22 09:00 11/03/22 10:47 Allopurinol 300 Mg Tablet PO 11/02/23 08:59 300 mg DAILY EDWIGE Administration Amlodipine Besylate 5 mg 11/02/22 12:30 11/03/22 10:47 Amlodipine 5 Mg Tablet PO 11/02/23 12:29 5 mg DAILY EDWIGE Administration Aspirin 81 mg 11/02/22 09:00 11/03/22 10:47 Aspirin 81 Mg Tablet.Dr PO 11/02/23 08:59 81 mg DAILY EDWIGE Administration Atorvastatin Calcium 10 mg 11/02/22 22:00 11/02/22 23:24 Atorvastatin 10 Mg Tablet PO 11/02/23 21:59 Not Given HS EDWIGE Celecoxib 200 mg 11/02/22 09:00 11/03/22 10:47 Celecoxib 200 Mg Capsule PO 11/02/23 08:59 200 mg DAILY EDWIGE Administration Colchicine 1.2 mg 11/02/22 09:00 11/03/22 10:47 Colchicine 0.6 Mg Tablet PO 11/02/23 08:59 1.2 mg DAILY EDWIGE Administration Dexamethasone Sodium Phosphate 6 mg 11/02/22 09:00 11/03/22 10:48 Dexamethasone Sod Phosphate 4 Mg/Ml Vial IV-PUSH 11/11/22 09:01 6 mg DAILY EDWIGE Administration Docusate Sodium 100 mg 11/01/22 22:36 Docusate 100 Mg Capsule PO 11/01/23 22:35 BID PRN Constipation Enoxaparin Sodium 40 mg 11/02/22 10:00 11/03/22 10:48 Enoxaparin 40 Mg/0.4 Ml Syringe SUBCUT 11/02/23 09:59 40 mg DAILY@10 EDWIGE Administration Famotidine 40 mg 11/02/22 09:00 11/03/22 10:48 Famotidine 20 Mg Tablet PO 11/02/23 08:59 40 mg DAILY EDWIGE Administration Guaifenesin 600 mg 11/01/22 22:27 Guaifenesin 600 Mg Tab.Er.12h PO 11/01/23 22:26 BID PRN Cough Guaifenesin/Dextromethorphan 10 ml 11/01/22 22:47 Guaif/Dextromethorphan Syrup 10 Ml Udc PO 11/01/23 22:46 Q8H PRN Cough Remdesivir 100 mg/ Dextrose 250 mls @ 250 mls/hr 11/03/22 05:30 11/03/22 05:51 IV 11/06/22 06:29 250 mls/hr Q24H EDWIGE Administration Melatonin 3 mg 11/01/22 22:27 Melatonin 3 Mg Tablet PO 11/01/23 22:26 QHS PRN Insomnia Mirtazapine 15 mg 11/02/22 22:00 11/02/22 23:24 Mirtazapine 15 Mg Tablet PO 11/02/23 21:59 Not Given HS EDWIGE Morphine Sulfate 15 mg 11/01/22 22:36 11/03/22 01:49 Morphine Sulfate 12hr Er 15 Mg Tablet.Er PO 15 mg BID PRN Administration Pain 8-10 Pregabalin 100 mg 11/02/22 09:00 11/03/22 10:47 Pregabalin 100 Mg Capsule PO 05/01/23 08:59 100 mg TID EDWIGE Administration Prochlorperazine Edisylate 5 mg 11/01/22 22:27 Prochlorperazine Edisylate 10 Mg/2 Ml Vial IV-PUSH 11/01/23 22:26 Q4H PRN Nausea And Vomiting Sodium Chloride 0 ml 11/01/22 16:36 11/03/22 05:51 Sodium Chloride 0.9 % 10 Ml Syringe IV-PUSH 11/01/23 16:35 10 ml PRN PRN Administration Flush Sodium Chloride 10 ml 11/02/22 05:30 11/03/22 05:50 Sodium Chloride 0.9 % 10 Ml Syringe IV-PUSH 11/12/22 05:29 10 ml Q24H EDWIGE Administration Vortioxetine 10 mg 11/02/22 09:00 11/03/22 10:47 Vortioxetine 10 Mg Tablet PO 11/02/23 08:59 10 mg DAILY EDWIGE Administration A&P - Hospitalist Assessment/Plan (1) Unable to care for self: (2) Impaired mobility and ADLs: (3) Inability to ambulate due to knee: Plan COVID-19 infection?tested positive on admission Encephalopathy?associated with above, improved Denies shortness of breath, intermittent productive cough, remains afebrile. 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 Aashish Natarajan DO Internal Medicine Hospitalist Documented By: Shawna Hartman APRN 11/03/22 1352 Signed By: <Electronically signed by PHYLLIS Hartman> 11/03/22 1408 <Electronically signed by Aashish Natarajan DO> 11/03/22 1420 [facility] Work Phone: Progress note Author Celeste Alfonso [facility] December 20, 2022 9:35pm Note Date/Time December 20, 2022 1 :26pm [facility] [address] [place] [address] Hospitalist Progress Note Signed with Stewart Patient: Hilary Maldonado MR#: [id number] : 1945 Acct:[id number] Age/Sex: 77 / M Adm Date: 3 Loc: Room: [address] [place] [address] Type: ADM IN Attending Dr: Celeste Alfonso MD Copies to: ~ ADDENDUM1 I did speak with the patient's sister. Currently we will leave the patient fullcode, she will come tomorrow and rediscuss that with the patient. Addendum Documented By: Celeste Alfonso MD 12/20/222134 Addendum Signed By: <Electronically signed by Celeste Alfonso MD> 12/20/222134 Date of Service: 12/20/2022 Subjective Subjective Narrative: Patient has been seen and examined today. She still remains confused, oriented x1. But he denies any pain. Unable to tolerate MRI due to agitation Telemetry reviewed, normal sinus, with PVCs Physical exam: General -awake, alert, oriented ?1, not in acute distress Cardiovascular -S1 with S2, no murmurs, no rubs, no gallops Pulmonary - clear to auscultation bilaterally Gastrointestinal - abdomen is soft, nondistended, nontender, bowel sounds positive, there is no rigidity, no rebound Extremities -no edema Neurological -right upper extremity weakness noteD, not sure if it is chronic oracute Laboratory work up and Imaging studies reviewed funeral pre arrangement specialist - reviewed EKG - personally reviewed by me. NSR with nonspecific changes, unchanged from the old 1 Exam Physical Exam Vital Signs: Temp Pulse Resp BP Pulse Ox O2 Del Method 36.3 C L 73 18 148/63 H 99 Room Air 12/20/22 11:32 12/20/22 11:32 12/20/22 11:32 12/20/22 11:32 12/20/22 11:32 12/20/22 11:32 Objective Lab Results 12/20/22 06:17 12/20/22 06:17 Meds Allergies and Active Meds Allergies No Known Allergies Allergy (Verified 12/19/22 13:41) Active Meds: Active Medications Generic Name Dose Route Start Last Admin Trade Name Phongq PRN Reason Stop Dose Admin Acetaminophen 650 mg 12/19/22 21:40 12/20/22 05:44 Acetaminophen 325 Mg Tablet PO 12/19/23 21:39 650 mg Q4H PRN Administration Pain Scale 1 - 5 Albuterol 2.5 mg 12/20/22 21:00 Albuterol Neb 2.5 Mg/3 Ml Vial.Neb INHALATION 12/20/23 20:59 BID EDWIGE Allopurinol 300 mg 12/20/22 09:00 12/20/22 12:00 Allopurinol 300 Mg Tablet PO 12/20/23 08:59 Not Given DAILY EDWIGE Aripiprazole 5 mg 12/21/22 09:00 Aripiprazole 5 Mg Tablet PO 12/21/23 08:59 QAM EDWIGE Aspirin 81 mg 12/20/22 09:00 12/20/22 11:59 Aspirin 81 Mg Tablet. PO 12/20/23 08:59 Not Given DAILY EDWIGE Atorvastatin Calcium 10 mg 12/19/22 22:00 12/19/22 22:16 Atorvastatin 10 Mg Tablet PO 12/19/23 21:59 10 mg HS EDWIGE Administration Docusate Sodium 200 mg 12/19/22 21:40 Docusate 100 Mg Capsule PO 12/19/23 21:39 BID PRN Constipation Enoxaparin Sodium 40 mg 12/20/22 10:00 12/20/22 11:43 Enoxaparin 40 Mg/0.4 Ml Syringe SUBCUT 12/20/23 09:59 Not Given DAILY@1000 EDWIGE Hydralazine HCl 10 mg 12/19/22 21:40 Hydralazine 20 Mg/Ml Vial IV-PUSH 12/19/23 21:39 Q4H PRN if SBP > 185 Magnesium Sulfate 4 gm in 100 mls @ 12.5 mls/hr 12/20/22 13:16 Magnesium Sulf 4 Gm-*Swfi* IV 12/20/22 21:15 ONCE ONE Sodium Chloride 1,000 mls @ 100 mls/hr 12/20/22 13:30 0.9% Sodium Chloride 1,000 Ml IV 12/20/22 23:29 .Q10H EDWIGE Mirtazapine 15 mg 12/19/22 22:00 12/19/22 22:16 Mirtazapine 15 Mg Tablet PO 12/19/23 21:59 15 mg HS EDWIGE Administration Pregabalin 100 mg 12/20/22 14:00 Pregabalin 100 Mg Capsule PO 06/18/23 13:59 TID EDWIGE Prochlorperazine Edisylate 5 mg 12/19/22 21:40 Prochlorperazine Edisylate 10 Mg/2 Ml Vial IV-PUSH 12/19/23 21:39 Q4H PRN Nausea And Vomiting Sodium Chloride 0 ml 12/19/22 13:40 12/19/22 19:52 Sodium Chloride 0.9 % 10 Ml Syringe IV-PUSH 12/19/23 13:39 10 ml PRN PRN Administration Flush Vortioxetine 10 mg 12/21/22 09:00 Vortioxetine 10 Mg Tablet PO 12/21/23 08:59 DAILY [facility] A&P - Hospitalist Assessment/Plan (1) Altered mental status: Plan 1. Transient episode of unresponsiveness, questionable syncopal episode EKG nonischemic, unchanged from the old 1, troponins elevated but flat, telemetry showed PVCs Replace electrolytes, start beta-blockers, continue with aspirin therapy and statins, I will consult cardiology, check echocardiogram 2. Right upper extremity weakness, unsure if it is old or new Continue with aspirin and statins, MRI of the head is pending 3. Urinary retention, Mccall catheter inserted, continue with strict input and output, started IV fluids, kidney function stable 4. DVT prophylaxis Lovenox I called patient's sister, she will be available around 3 PM. We will try to call again. To clarify CODE STATUS Documented By: Celeste Alfonso MD 12/20/221322 Signed By: <Electronically signed by Celeste Alfonso MD> 12/20/22 1326 [facility] Work Phone: Progress note Author Celeste Alfonso [facility] December 21, 2022 2:39pm Note Date/Time December 21, 2022 2 :35pm [facility] [address] [place] [address] Hospitalist Progress Note Signed Patient: Hilary Maldonado MR#: [id number] : 1945 Acct:[id number] Age/Sex: 77 / M Adm Date: 3 Loc: Room: [address] [place] [address] Type: ADM IN Attending Dr: Celeste Alfonso MD Copies to: ~ Date of Service: 12/21/2022 Subjective Subjective Narrative: Patient has been seen and examined today. She appears to be more awake, but still intermittently confused. Patient is agreeable to go to rehabilitation Complains of the right knee pain and left upper extremity pain, which is chronic. Per his sister who was at the bedside, patient has osteoarthritis Physical exam: General -awake, alert, oriented ?2, not in acute distress, appears to be more cooperative and more responsive today, more appropriate Cardiovascular -S1 with S2, no murmurs, no rubs, no gallops Pulmonary - clear to auscultation bilaterally Gastrointestinal - abdomen is soft, nondistended, nontender, bowel sounds positive, there is no rigidity, no rebound Extremities -no edema Neurological -right upper extremity weakness noteD, not sure if it is chronic oracute Laboratory work up and Imaging studies reviewed funeral pre arrangement specialist - reviewed EKG - personally reviewed by me. NSR with nonspecific changes, unchanged from the old 1 Exam Physical Exam Vital Signs: Temp Pulse Resp BP Pulse Ox O2 Del Method 36.8 C 72 18 144/67 H 99 Room Air 12/21/22 12:00 12/21/22 12:00 12/21/22 12:00 12/21/22 12:00 12/21/22 12:00 12/21/22 12:00 Objective Lab Results 12/20/22 06:17 12/20/22 06:17 Microbiology Results Microbiology 12/19/22 15:40 Blood - Right Hand Blood Culture - Preliminary No Growth 1 Day 12/19/22 14:55 Blood - Left Forearm Blood Culture - Preliminary No Growth 1 Day Meds Allergies and Active Meds Allergies No Known Allergies Allergy (Verified 12/19/22 13:41) Active Meds: Active Medications Generic Name Dose Route Start Last Admin Trade Name Stephanie PRN Reason Stop Dose Admin Acetaminophen 650 mg 12/19/22 21:40 12/21/22 01:31 Acetaminophen 325 Mg Tablet PO 12/19/23 21:39 650 mg Q4H PRN Administration Pain Scale 1 - 5 Albuterol 2.5 mg 12/20/22 21:00 12/21/22 09:02 Albuterol Neb 2.5 Mg/3 Ml Vial.Neb INHALATION 12/20/23 20:59 2.5 mg BID EDWIGE Administration Allopurinol 300 mg 12/20/22 09:00 12/21/22 09:04 Allopurinol 300 Mg Tablet PO 12/20/23 08:59 Not Given DAILY EDWIGE Aripiprazole 5 mg 12/21/22 09:00 12/21/22 09:04 Aripiprazole 5 Mg Tablet PO 12/21/23 08:59 Not Given QAM EDWIGE Aspirin 81 mg 12/20/22 09:00 12/21/22 09:04 Aspirin 81 Mg Tablet.Dr PO 12/20/23 08:59 Not Given DAILY EDWIGE Atorvastatin Calcium 10 mg 12/19/22 22:00 12/20/22 21:38 Atorvastatin 10 Mg Tablet PO 12/19/23 21:59 10 mg HS EDWIGE Administration Carvedilol 3.125 mg 12/21/22 17:00 Carvedilol 3.125 Mg Tablet PO 12/21/23 16:59 BID.WITH.MEALS EDWIGE Docusate Sodium 200 mg 12/19/22 21:40 Docusate 100 Mg Capsule PO 12/19/23 21:39 BID PRN Constipation Enoxaparin Sodium 40 mg 12/20/22 10:00 12/21/22 09:04 Enoxaparin 40 Mg/0.4 Ml Syringe SUBCUT 12/20/23 09:59 Not Given DAILY@1000 EDWIGE Hydralazine HCl 10 mg 12/19/22 21:40 Hydralazine 20 Mg/Ml Vial IV-PUSH 12/19/23 21:39 Q4H PRN if SBP > 185 Mirtazapine 15 mg 12/19/22 22:00 12/20/22 21:38 Mirtazapine 15 Mg Tablet PO 12/19/23 21:59 15 mg HS EDWIGE Administration Pregabalin 100 mg 12/20/22 22:00 12/21/22 14:00 Pregabalin 100 Mg Capsule PO 06/18/23 21:59 100 mg TID EDWIGE Administration Prochlorperazine Edisylate 5 mg 12/19/22 21:40 Prochlorperazine Edisylate 10 Mg/2 Ml Vial IV-PUSH 12/19/23 21:39 Q4H PRN Nausea And Vomiting Sodium Chloride 0 ml 12/19/22 13:40 12/19/22 19:52 Sodium Chloride 0.9 % 10 Ml Syringe IV-PUSH 12/19/23 13:39 10 ml PRN PRN Administration Flush Vortioxetine 10 mg 12/21/22 09:00 12/21/22 09:04 Vortioxetine 10 Mg Tablet PO 12/21/23 08:59 Not Given DAILY EDWIGE A&P - Hospitalist Assessment/Plan (1) Altered mental status: Plan 1. Transient episode of unresponsiveness, questionable syncopal episode EKG nonischemic, unchanged from the old 1, troponins elevated but flat, telemetry showed PVCs Replaced electrolytes, started beta-blockers, continue with aspirin therapy and statins, consulted cardiology, echocardiogram showed 45%, with LV hypokinesia 2. Right upper extremity weakness, unsure if it is old or new Continue with aspirin and statins, MRI of the head no acute stroke 3. Urinary retention, Mccall catheter inserted, we will remove Mccall catheter start Flomax, Bladder scan as needed 4. DVT prophylaxis Lovenox The patient care was discussed with the patient's sister who was at the bedside. Documented By: Celeste Alfonso MD 12/21/22 1430 Signed By: <Electronically signed by Celeste Alfonso MD> 12/21/22 1434 [facility] Work Phone: Progress note Author Mariano Dennis [facility] April 28, 2023 6:50pm Note Date/Time April 28, 2023 6:5 0pm [facility] [address] [place], [place] [id number] Hospitalist Progress Note Signed Patient: Hilary Maldonado MR#: [id number] : 1945 Acct:[id number] Age/Sex: 78 / M Adm Date: 4 Loc: Room: [address] [place] [address] Type: ADM INOo Attending Dr: Mariano Dennis DO Copies to: ~ Date of Service: 04/28/2023 Subjective Subjective Narrative: Patient was seen and examined at the bedside earlier today. He is upset regarding his need of guardianship. Physical Examination: GENERAL APPEARANCE: Alert, oriented, mildly tangential elderly male HEENT: NCAT, MMM NECK: Neck soft w/o masses, no JVD CARDIAC: Normal S1 and S2. No S3, S4 or murmurs. LUNGS: Clear to auscultation bilaterally. no wheeze/rhonchi/rales ABDOMEN: Positive bowel sounds. Soft, nontender. No guarding or signs of an acute abdomen MUSCULOSKELETAL: No joint erythema or tenderness. EXTREMITIES: No clubbing, cyanosis or edema NEUROLOGICAL: No focal deficits PSYCHIATRIC: Appropriate mood and affect Assessment and plan: 1. Right knee osteoarthritis This is patient's primary complaint. Appreciate any recommendations from orthopedic surgery. Would avoid long-term NSAID use. Voltaren gel has been ordered. Previously prescribed Lyrica has also been ordered. Tylenol as needed. If truly intractable can escalate to opiate pain control but for now wewill hold off on this. 2. Dementia Patient is alert and very clear in his speech at times but through discussion itis clear he exhibits very poor insight into his multiple comorbid medical illnesses as noted previously. My colleague declared him incompetent on his recent discharge in February and despite this was allowed to leave skilled care facility AGAINST MEDICAL ADVICE. I have consulted psychiatry for further assistance in assessing his competency who did evaluate the patient and agrees guardianship is warranted. This process has been initiated. 3. Parotid mass Further treatment and workup of this potentially malignant process is still pending and largely on hold due to questions of competency based on chart review. He does not appear cachectic or to have a progressing aggressive malignancy at this time. 4. Chronic systolic congestive heart failure 5. Nephrotic syndrome 6. Monoclonal gammopathy of renal significance 7. Hypertension 8. History of nephrotic syndrome 9. COPD 10. Gout 11. History of nicotine abuse Despite his multiple comorbid illnesses diagnosed on recent hospitalization his labs and vital signs all appear diffusely stable and actually improved from thattime. Will need to obtain a accurate medication list and resume appropriate heart failure and other medications that he needs regularly. He reports chronicongoing cough since his discharge that is mostly nonproductive. He does not have signs of infection at the moment and his breath sounds are fairly clear. Will order some Mucinex to assist in clearance but follow-up for any evidence ofinfection. He appears to been discharged on aripiprazole and vortioxetine thesecan be continued when verified. A gamma gap of 4.1 is noted on his LFTs today which does not seem to be noted previously. 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 Urinalysis shows previously noted proteinuria, no infection. Will resume his previously prescribed extensive medical regimen as tolerated. Exam Physical Exam Vital Signs: Temp Pulse Resp BP Pulse Ox O2 Del Method 98.0 F 62 20 133/77 99 Room Air 04/28/23 16:00 04/28/23 16:00 04/28/23 16:00 04/28/23 16:00 04/28/23 16:00 04/28/23 16:00 Objective Lab Results 04/28/23 06:15 04/28/23 06:15 Meds Allergies and Active Meds Allergies No Known Allergies Allergy (Verified 04/27/23 13:08) Active Meds: Active Medications Generic Name Dose Route Start Last Admin Trade Name Freq PRN Reason Stop Dose Admin Aspirin 81 mg 04/28/23 09:00 04/28/23 08:52 Aspirin 81 Mg Tablet. PO 04/27/24 08:59 81 mg DAILY EDWIGE Administration Carvedilol 3.125 mg 04/28/23 08:00 04/28/23 17:25 Carvedilol 3.125 Mg Tablet PO 04/27/24 07:59 3.125 mg BID.WITH.MEALS EDWIGE Administration Diclofenac Sodium 2 gm 04/27/23 22:00 04/28/23 15:06 Diclofenac Sodium 1% Gel 100 Gm Tube TOPICAL 04/26/24 21:59 2 gm TID EDWIGE Administration Enoxaparin Sodium 40 mg 04/28/23 10:00 04/28/23 12:20 Enoxaparin 40 Mg/0.4 Ml Syringe SUBCUT 04/27/24 09:59 Not Given DAILY@10 EDWIGE Haloperidol Lactate 3 mg 04/27/23 22:14 Haloperidol Lactate 5 Mg/Ml Vial IV-PUSH 04/26/24 22:13 Q6H PRN Agitation Pregabalin 50 mg 04/27/23 22:00 04/28/23 15:06 Pregabalin 50 Mg Capsule PO 10/24/23 21:59 50 mg TID EDWIGE Administration Quetiapine Fumarate 50 mg 04/27/23 22:14 04/27/23 22:50 Quetiapine Fumarate 50 Mg Tablet PO 04/27/24 21:59 50 mg QHS PRN Administration insomnia A&P - Hospitalist Assessment/Plan (1) Knee pain, right: Plan as above Documented By: Mariano Dennis DO 04/28/23 18 46 Signed By: <Electronically signed by Mariano Dennis DO> 04/28/23 1850 [facility] Work Phone: Progress note Author Mariano Dennis [facility] April 29, 2023 5:30pm Note Date/Time April 29, 2023 5:3 0pm [facility] [address] [place] [address] Hospitalist Progress Note Signed Patient: Hilary Maldonado MR#: [id number] : 1945 Acct:[id number] Age/Sex: 78 / M Adm Date: 4 Loc: Room: [address] [place] [address] Type: ADM INOo Attending Dr: Mariano Dennis DO Copies to: ~ Date of Service: 04/29/2023 Subjective Subjective Narrative: Patient was seen and examined at the bedside this afternoon. He is sitting up in his chair eating dinner. Expresses discontent with his family and their motives. Reassured everyone is looking out for his best interest and his medical complexity wants regular oversight and regular nursing care and he wouldbe best served at a skilled facility. Physical Examination: GENERAL APPEARANCE: Alert, oriented, mildly tangential elderly male HEENT: NCAT, MMM NECK: Neck soft w/o masses, no JVD CARDIAC: Normal S1 and S2. No S3, S4 or murmurs. LUNGS: Clear to auscultation bilaterally. no wheeze/rhonchi/rales ABDOMEN: Positive bowel sounds. Soft, nontender. No guarding or signs of an acute abdomen MUSCULOSKELETAL: No joint erythema or tenderness. EXTREMITIES: No clubbing, cyanosis or edema NEUROLOGICAL: No focal deficits PSYCHIATRIC: Appropriate mood and affect Assessment and plan: 1. Right knee osteoarthritis Appreciate orthopedic surgery consultation. Continue Voltaren gel. Possible prednisone injection prior to discharge. 2. Dementia Yesterday the patient exhibited significant anger and was quite upset with his family. He did attempt to reassure him that his family and all staff are looking out for his best interest. He has been declared incompetent by psychiatry as well as by myself as he clearly has very poor insight into the complexity of his medical care and cannot manage this alone. He has been receiving 50 mg of Seroquel nightly here whenever he was on a different regimen on discharge. We will attempt to receive a most recent updated med list from his skilled facility that he left not long ago and I will resume those medications when available which may provide further stabilization she was somewhat labile mood. 3. Parotid mass Further treatment and workup of this potentially malignant process is still pending and largely on hold due to questions of competency. He does not appear cachectic or to have a progressing aggressive malignancy at this time. This is 1 of many medical issues that could warrant further treatment but without a medical guardian and someone to assist in coordinating the necessary frequent follow-ups and monitoring this will be quite difficult. Will attempt to discussthis further with the patient and reemphasize this point. 4. Chronic systolic congestive heart failure 5. Nephrotic syndrome 6. Monoclonal gammopathy of renal significance 7. Hypertension 8. History of nephrotic syndrome 9. COPD 10. Gout 11. History of nicotine abuse His labs and vital signs remain continually stable. Repeat protein and albumin levels show that he was paraproteinemia in the blood is anything quite mild and can be monitored. His other autoimmune issues, nephrotic syndrome and IgA gammopathy diagnosed previously are stable presently but for now. Patient exhibits no hypoxia nor signs of acute heart failure. Low-dose carvedilol 3.125mg twice daily has been ordered. Further guideline directed medical therapy maybe warranted. This will be updated as medication list becomes available. Last ejection fraction January 05 showed an EF of 45 to 50%. Mild global LV hypokinesis and severe hypokinesis of the inferior wall. Noninvasive evaluationof ischemia was recommended by cardiology at that time but deferred due to ongoing mental status issues. Refusing telemetry at the moment which is okay given his clinical status but will monitor for any signs of exacerbation or chest pain. Exam Physical Exam Vital Signs: Temp Pulse Resp BP Pulse Ox O2 Del Method 97.3 F L 60 20 131/76 97 Room Air 04/29/23 08:00 04/29/23 08:00 04/29/23 08:00 04/29/23 08:00 04/29/23 08:00 04/29/23 08:00 Objective Lab Results 04/28/23 06:15 04/28/23 06:15 Meds Allergies and Active Meds Allergies No Known Allergies Allergy (Verified 04/27/23 13:08) Active Meds: Active Medications Generic Name Dose Route Start Last Admin Trade Name Freq PRN Reason Stop Dose Admin Acetaminophen 1,000 mg 04/28/23 21:27 04/28/23 22:03 Acetaminophen 500 Mg Tablet PO 04/27/24 21:26 1,000 mg Q6H PRN Administration Fever or Pain Allopurinol 300 mg 04/29/23 09:00 04/29/23 09:10 Allopurinol 300 Mg Tablet PO 04/28/24 08:59 300 mg QAM EDWIGE Administration Aspirin 81 mg 04/28/23 09:00 04/29/23 09:10 Aspirin 81 Mg Tablet.Dr PO 04/27/24 08:59 81 mg DAILY EDWIGE Administration Atorvastatin Calcium 10 mg 04/29/23 09:00 04/29/23 09:10 Atorvastatin 10 Mg Tablet PO 04/28/24 08:59 10 mg QAM EDWIGE Administration Carvedilol 3.125 mg 04/28/23 08:00 04/29/23 09:10 Carvedilol 3.125 Mg Tablet PO 04/27/24 07:59 3.125 mg BID.WITH.MEALS EDWIGE Administration Diclofenac Sodium 2 gm 04/27/23 22:00 04/29/23 14:23 Diclofenac Sodium 1% Gel 100 Gm Tube TOPICAL 04/26/24 21:59 2 gm TID EDWIGE Administration Enoxaparin Sodium 40 mg 04/28/23 10:00 04/29/23 09:10 Enoxaparin 40 Mg/0.4 Ml Syringe SUBCUT 04/27/24 09:59 Not Given DAILY@10 EDWIGE Haloperidol Lactate 3 mg 04/27/23 22:14 Haloperidol Lactate 5 Mg/Ml Vial IV-PUSH 04/26/24 22:13 Q6H PRN Agitation Pregabalin 50 mg 04/27/23 22:00 04/29/23 14:23 Pregabalin 50 Mg Capsule PO 10/24/23 21:59 50 mg TID EDWIGE Administration Quetiapine Fumarate 50 mg 04/27/23 22:14 04/28/23 22:03 Quetiapine Fumarate 50 Mg Tablet PO 04/27/24 21:59 50 mg QHS PRN Administration insomnia A&P - Hospitalist Assessment/Plan (1) Knee pain, right: Plan as above Documented By: Mariano Dennis DO 04/29/23 17 18 Signed By: <Electronically signed by Mariano Dennis DO> 04/29/23 1730 [facility] Work Phone: Progress note Author Mariano Dennis [facility] April 30, 2023 5:34pm Note Date/Time April 30, 2023 5:3 4pm [facility] [address] [place] [address] Hospitalist Progress Note Signed Patient: Hilary Maldonado MR#: [id number] : 1945 Acct:[id number] Age/Sex: 78 / M Adm Date: 4 Loc: Room: [address] [place] [address] Type: ADM INOo Attending Dr: Mariano Dennis DO Copies to: ~ Date of Service: 04/30/2023 Subjective Subjective Narrative: Patient was seen and examined at the bedside this afternoon. Received a prednisone injection. No new complaints. Physical Examination: GENERAL APPEARANCE: Alert, oriented, mildly tangential elderly male HEENT: NCAT, MMM NECK: Neck soft w/o masses, no JVD CARDIAC: Normal S1 and S2. No S3, S4 or murmurs. LUNGS: Clear to auscultation bilaterally. no wheeze/rhonchi/rales ABDOMEN: Positive bowel sounds. Soft, nontender. No guarding or signs of an acute abdomen MUSCULOSKELETAL: No joint erythema or tenderness. EXTREMITIES: No clubbing, cyanosis or edema NEUROLOGICAL: No focal deficits PSYCHIATRIC: Appropriate mood and affect Assessment and plan: 1. Right knee osteoarthritis Appreciate orthopedic surgery consultation. Continue Voltaren gel. Underwent joint injection today 2. Dementia Yesterday the patient exhibited significant anger and was quite upset with his family. He did attempt to reassure him that his family and all staff are looking out for his best interest. He has been declared incompetent by psychiatry as well as by myself as he clearly has very poor insight into the complexity of his medical care and cannot manage this alone. He has been receiving 50 mg of Seroquel nightly here whenever he was on a different regimen on discharge. We will attempt to receive a most recent updated med list from his skilled facility that he left not long ago and I will resume those medications when available which may provide further stabilization she was somewhat labile mood. 3. Parotid mass Further treatment and workup of this potentially malignant process is still pending and largely on hold due to questions of competency. He does not appear cachectic or to have a progressing aggressive malignancy at this time. This is 1 of many medical issues that could warrant further treatment but without a medical guardian and someone to assist in coordinating the necessary frequent follow-ups and monitoring this will be quite difficult. Will attempt to discussthis further with the patient and reemphasize this point. 4. Chronic systolic congestive heart failure 5. Nephrotic syndrome 6. Monoclonal gammopathy of renal significance 7. Hypertension 8. History of nephrotic syndrome 9. COPD 10. Gout 11. History of nicotine abuse His labs and vital signs remain continually stable. Repeat protein and albumin levels show that he was paraproteinemia in the blood is anything quite mild and can be monitored. His other autoimmune issues, nephrotic syndrome and IgA gammopathy diagnosed previously are stable presently but for now. Patient exhibits no hypoxia nor signs of acute heart failure. Low-dose carvedilol 3.125mg twice daily has been ordered. Further guideline directed medical therapy maybe warranted. This will be updated as medication list becomes available. Last ejection fraction January 05 showed an EF of 45 to 50%. Mild global LV hypokinesis and severe hypokinesis of the inferior wall. Noninvasive evaluationof ischemia was recommended by cardiology at that time but deferred due to ongoing mental status issues. Refusing telemetry at the moment which is okay given his clinical status but will monitor for any signs of exacerbation or chest pain. Exam Physical Exam Vital Signs: Temp Pulse Resp BP Pulse Ox O2 Del Method 98.4 F 64 18 127/66 95 Room Air 04/30/23 16:00 04/30/23 16:00 04/30/23 16:00 04/30/23 16:00 04/30/23 16:00 04/30/23 16:00 Objective Lab Results 04/28/23 06:15 04/28/23 06:15 Meds Allergies and Active Meds Allergies No Known Allergies Allergy (Verified 04/27/23 13:08) Active Meds: Active Medications Generic Name Dose Route Start Last Admin Trade Name Freq PRN Reason Stop Dose Admin Acetaminophen 1,000 mg 04/28/23 21:27 04/30/23 05:53 Acetaminophen 500 Mg Tablet PO 04/27/24 21:26 1,000 mg Q6H PRN Administration Fever or Pain Allopurinol 300 mg 04/29/23 09:00 04/30/23 08:14 Allopurinol 300 Mg Tablet PO 04/28/24 08:59 300 mg QAM EDWIGE Administration Aspirin 81 mg 04/28/23 09:00 04/30/23 08:14 Aspirin 81 Mg Tablet.Dr PO 04/27/24 08:59 81 mg DAILY EDWIGE Administration Atorvastatin Calcium 10 mg 04/29/23 09:00 04/30/23 08:14 Atorvastatin 10 Mg Tablet PO 04/28/24 08:59 10 mg QAM EDWIGE Administration Carvedilol 3.125 mg 04/28/23 08:00 04/30/23 17:20 Carvedilol 3.125 Mg Tablet PO 04/27/24 07:59 3.125 mg BID.WITH.MEALS EDWIGE Administration Diclofenac Sodium 2 gm 04/27/23 22:00 04/30/23 13:56 Diclofenac Sodium 1% Gel 100 Gm Tube TOPICAL 04/26/24 21:59 2 gm TID EDWIGE Administration Enoxaparin Sodium 40 mg 04/28/23 10:00 04/30/23 09:24 Enoxaparin 40 Mg/0.4 Ml Syringe SUBCUT 04/27/24 09:59 Not Given DAILY@10 EDWIGE Haloperidol Lactate 3 mg 04/27/23 22:14 Haloperidol Lactate 5 Mg/Ml Vial IV-PUSH 04/26/24 22:13 Q6H PRN Agitation Pregabalin 50 mg 04/27/23 22:00 04/30/23 13:55 Pregabalin 50 Mg Capsule PO 10/24/23 21:59 50 mg TID EDWIGE Administration Quetiapine Fumarate 50 mg 04/29/23 21:00 04/29/23 23:26 Quetiapine Fumarate 50 Mg Tablet PO 04/28/24 20:59 50 mg QHS EDWIGE Administration Tamsulosin HCl 0.4 mg 04/30/23 09:00 04/30/23 08:14 Tamsulosin 0.4 Mg Cap.Er.24h PO 04/29/24 08:59 0.4 mg DAILY EDWIGE Administration A&P - Hospitalist Assessment/Plan (1) Knee pain, right: Plan as above Documented By: Mariano Dennis DO 04/30/23 17 33 Signed By: <Electronically signed by Mariano Dennis DO> 04/30/23 6726 [facility] Work Phone: Progress note Author Hilary Rice [facility] May 01, 2023 6:38am Note Date/Time May 01, 2023 6:3 8am [facility] [address] [place] [address] Orthopedic Progress Note Signed Patient: Hilary Maldonado MR#: [id number] : 1945 Acct:[id number] Age/Sex: 78 / M Adm Date: 4 Loc: 3T Room: [address] [place] [address] Type: ADM INOo Attending Dr: Mariano Dennis DO Copies to: ~ Date of Service: 04/30/2023 Exam Physical Exam Vital Signs: Temp Pulse Resp BP Pulse Ox O2 Del Method 97.9 F 57 L 19 144/85 H 98 Room Air 04/30/23 05:46 04/30/23 05:46 04/30/23 05:46 04/30/23 05:46 04/30/23 05:46 04/30/23 05:46 Narrative: Patient was sitting up and eating. Continued complaints of right knee pain and difficulty walking. He agreed that he would like a cortisone injection. Again he did demonstrate active extension of the knee and flexion to 90 Slight swelling noted. No redness or warmth about the right knee Assessment / Plan Assessment and plan (1) Knee pain, right: Qualifiers: Chronicity: chronic Qualified Code(s): M25.561 - Pain in right knee; G89.29 - Other chronic pain Code(s): M25.561 - Pain in right knee Plan We performed triamcinolone 40 mg injection into the right knee. Patient tolerated this well. He may progress activity as tolerated. Hopefully this will give him some degreeof pain relief. He may follow in our office after discharge. We could considertotal knee replacement at some point Documented By: Hilary Rcie MD 04/30/23 0805 Signed By: <Electronically signed by MD Hilary Rice> 05/01/23 0638 [facility] Work Phone: Progress note Author Celeste Alfonso [facility] May 01, 2023 12:36pm Note Date/Time May 01, 2023 12: 36pm [facility] [address] [place] [address] Hospitalist Progress Note Signed Patient: Hilary Maldonado MR#: [id number] : 1945 Acct:[id number] Age/Sex: 78 / M Adm Date: 4 Loc: Room: [address] [place] [address] Type: ADM IN Attending Dr: Celeste Alfonso MD Copies to: ~ Date of Service: 05/01/2023 Subjective Subjective Narrative: Patient was seen and examined at the bedside this afternoon. Patient sitting inthe chair, denies any particular complaints apart from his knee pain Physical Examination: GENERAL APPEARANCE: Alert, oriented x 3, mildly tangential elderly male HEENT: NCAT, MMM NECK: Neck soft w/o masses, no JVD CARDIAC: Normal S1 and S2. No S3, S4 or murmurs. LUNGS: Clear to auscultation bilaterally. no wheeze/rhonchi/rales ABDOMEN: Positive bowel sounds. Soft, nontender. No guarding or signs of an acute abdomen MUSCULOSKELETAL: No joint erythema or tenderness. EXTREMITIES: No clubbing, cyanosis or edema NEUROLOGICAL: No focal deficits PSYCHIATRIC: Appropriate mood and affect Assessment and plan: 1. Right knee osteoarthritis Appreciate orthopedic surgery consultation. Continue Voltaren gel. Underwent joint injection April 29 Knee pain slightly better 2. 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 Chronic systolic congestive heart failure with ejection fraction 45% 5. Chronic kidney disease stage III, creatinine seems to be stable, will recheck 6. Monoclonal gammopathy of renal significance 7. Hypertension 8. History of nephrotic syndrome 9. COPD, currently compensated 10. Gout 11. History of nicotine abuse Exam Physical Exam Vital Signs: Temp Pulse Resp BP Pulse Ox O2 Del Method 36.9 C 59 L 18 137/73 98 Room Air 04/30/23 16:00 05/01/23 08:00 05/01/23 08:00 05/01/23 08:00 05/01/23 08:00 05/01/23 08:00 Objective Lab Results 04/28/23 06:15 04/28/23 06:15 Meds Allergies and Active Meds Allergies No Known Allergies Allergy (Verified 04/27/23 13:08) Active Meds: Active Medications Generic Name Dose Route Start Last Admin Trade Name Freq PRN Reason Stop Dose Admin Acetaminophen 1,000 mg 04/28/23 21:27 04/30/23 05:53 Acetaminophen 500 Mg Tablet PO 04/27/24 21:26 1,000 mg Q6H PRN Administration Fever or Pain Allopurinol 300 mg 04/29/23 09:00 05/01/23 09:08 Allopurinol 300 Mg Tablet PO 04/28/24 08:59 300 mg QAM EDWIGE Administration Aspirin 81 mg 04/28/23 09:00 05/01/23 09:07 Aspirin 81 Mg Tablet.Dr PO 04/27/24 08:59 81 mg DAILY EDWIGE Administration Atorvastatin Calcium 10 mg 04/29/23 09:00 05/01/23 09:07 Atorvastatin 10 Mg Tablet PO 04/28/24 08:59 10 mg QAM EDWIGE Administration Carvedilol 3.125 mg 04/28/23 08:00 05/01/23 09:06 Carvedilol 3.125 Mg Tablet PO 04/27/24 07:59 3.125 mg BID.WITH.MEALS EDWIGE Administration Diclofenac Sodium 2 gm 04/27/23 22:00 05/01/23 09:10 Diclofenac Sodium 1% Gel 100 Gm Tube TOPICAL 04/26/24 21:59 2 gm TID EDWIGE Administration Enoxaparin Sodium 40 mg 04/28/23 10:00 05/01/23 09:31 Enoxaparin 40 Mg/0.4 Ml Syringe SUBCUT 04/27/24 09:59 Not Given DAILY@10 EDWIGE Haloperidol Lactate 3 mg 04/27/23 22:14 Haloperidol Lactate 5 Mg/Ml Vial IV-PUSH 04/26/24 22:13 Q6H PRN Agitation Pregabalin 50 mg 04/27/23 22:00 05/01/23 09:08 Pregabalin 50 Mg Capsule PO 10/24/23 21:59 50 mg TID EDWIGE Administration Quetiapine Fumarate 50 mg 04/29/23 21:00 04/30/23 21:01 Quetiapine Fumarate 50 Mg Tablet PO 04/28/24 20:59 50 mg QHS EDWIGE Administration Tamsulosin HCl 0.4 mg 04/30/23 09:00 05/01/23 09:07 Tamsulosin 0.4 Mg Cap.Er.24h PO 04/29/24 08:59 0.4 mg DAILY EDWIGE Administration A&P - Hospitalist Assessment/Plan (1) Knee pain, right: Plan as above Documented By: Celeste Alfonso MD 05/01/23 1230 Signed By: <Electronically signed by Celeste Alfonso MD> 05/01/23 1236 [facility] Work Phone: Reason for visit Narrative* Auth/Cert Specialty Diagnoses / Procedures Referred By Contac t Referred To Contact Diagnoses 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] Procedures SD EXC PRTD ALLYSSA/PRTD GLND TOT DSJ&PRSRV FACIAL NR SD GRAFTING OF AUTOLOGOUS SOFT TISS BY DIRECT EXC Parotidectomy Excision [place] [address] [place] [address] [facility] Avelino Mcmillan [address] [place] [address] Referral ID Status Reason Start Date Expiration Date Visits Re quested Visits Authorized [id number] 1 1 [facility] Work Phone: Summary Purpose Family History Relationship Condition Age at Onset Recorded Date/T komal family member Malignant neoplasm of pancreas Unknown father Myocardial infarction Unknown Relationship Condition Age at Onset Recorded Date/T komal family member Malignant neoplasm of lung Unknown Malignant neoplasm of colon Unknown father Myocardial infarction Unknown Not Specified Malignant neoplasm of breast Unknown family member Myocardial infarction Unknown Relationship Condition Age at Onset Recorded Date/T komal family member Malignant neoplasm of lung Unknown Malignant neoplasm of colon Unknown father Myocardial infarction Unknown Not Specified Malignant neoplasm of breast Unknown family member Myocardial infarction Unknown father Unknown Not Specified Unknown Advance Directives Advance Directive Response Recorded Date/ Time Advance Directives Yes December 05, 2017 10:26am Advance Directive Response Recorded Date/ Time Advance Directives Yes December 05, 2017 9:26am Date Activated Date Inactivated Comments 11/22/2023 5:32 PM Question Answer Comments Plan of Care: Code Status Discussion Completed Decision Maker: Patient Date Activated Date Inactivated Comments 11/22/2023 5:32 PM Question Answer Comments Plan of Care: Code Status Discussion Completed Decision Maker: Patient Chief Complaint and Reason for Visit Chief Complaint feet turning black, COTTRELL Reason for Visit Acute delirium ASHD (arteriosclerotic heart disease) Elevated troponin Headache Hypokalemia Hypomagnesemia Thrombocytopenia Chief Complaint falls Chief Complaint falls r knee pain Reason for Visit Chronic pain Effusion of right knee Frequent falls Generalized weakness Gout HTN (hypertension) Impaired mobility and ADLs Inability to ambulate due to knee Thrombocytopenia Chief Complaint falls r knee pain Reason for Visit Chronic pain Effusion of right knee Encounter for assessment of healthcare decision-making capacity Frequent falls Generalized weakness Gout HTN (hypertension) Impaired mobility and ADLs Inability to ambulate due to knee Thrombocytopenia Chief Complaint falls r knee pain confusion,not eating Reason for Visit Chronic pain Effusion of right knee Encounter for assessment of healthcare decision-making capacity Frequent falls Generalized weakness Gout HTN (hypertension) Impaired mobility and ADLs Inability to ambulate due to knee Thrombocytopenia Confusion Generalized weakness Impaired mobility and ADLs Inability to ambulate due to knee Unable to care for self Chief Complaint falls r knee pain confusion,not eating Reason for Visit Chronic pain Encounter for assessment of healthcare decision-making capacity Generalized weakness Gout HTN (hypertension) Impaired mobility and ADLs Inability to ambulate due to knee Thrombocytopenia Confusion COVID-19 Encephalopathy Generalized weakness Gout HTN (hypertension) Impaired mobility and ADLs Inability to ambulate due to knee Unable to care for self Chief Complaint falls r knee pain confusion,not eating covid encephalopathy Reason for Visit Chronic pain Encounter for assessment of healthcare decision-making capacity Generalized weakness Gout HTN (hypertension) Impaired mobility and ADLs Inability to ambulate due to knee Thrombocytopenia Confusion COVID-19 Encephalopathy Generalized weakness Gout HTN (hypertension) Impaired mobility and ADLs Inability to ambulate due to knee Unable to care for self Chief Complaint falls r knee pain confusion,not eating covid encephalopathy Altered / Change Mental Status Reason for Visit Chronic pain Encounter for assessment of healthcare decision-making capacity Generalized weakness Gout HTN (hypertension) Impaired mobility and ADLs Inability to ambulate due to knee Thrombocytopenia Confusion COVID-19 Encephalopathy Generalized weakness Gout HTN (hypertension) Impaired mobility and ADLs Inability to ambulate due to knee Unable to care for self Acute encephalopathy Acute knee pain Acute UTI Altered mental status Fall Volume depletion Chief Complaint falls r knee pain confusion,not eating covid encephalopathy Altered / Change Mental Status biopsy fall Reason for Visit Chronic pain Encounter for assessment of healthcare decision-making capacity Generalized weakness Gout HTN (hypertension) Impaired mobility and ADLs Inability to ambulate due to knee Thrombocytopenia Confusion COVID-19 Encephalopathy Generalized weakness Gout HTN (hypertension) Impaired mobility and ADLs Inability to ambulate due to knee Unable to care for self Acute encephalopathy Acute knee pain Acute UTI Altered mental status Fall Volume depletion Altered mental status Elevated troponin Chief Complaint falls r knee pain confusion,not eating covid encephalopathy Altered / Change Mental Status biopsy fall Reason for Visit Chronic pain Encounter for assessment of healthcare decision-making capacity Generalized weakness Gout HTN (hypertension) Impaired mobility and ADLs Inability to ambulate due to knee Thrombocytopenia Confusion COVID-19 Encephalopathy Generalized weakness Gout HTN (hypertension) Impaired mobility and ADLs Inability to ambulate due to knee Unable to care for self Acute encephalopathy Acute knee pain Acute UTI Altered mental status Fall Volume depletion Altered mental status Carotid artery disease Elevated troponin Chief Complaint falls r knee pain confusion,not eating covid encephalopathy Altered / Change Mental Status biopsy fall parotid mass Reason for Visit Chronic pain Encounter for assessment of healthcare decision-making capacity Generalized weakness Gout HTN (hypertension) Impaired mobility and ADLs Inability to ambulate due to knee Thrombocytopenia Confusion COVID-19 Encephalopathy Generalized weakness Gout HTN (hypertension) Impaired mobility and ADLs Inability to ambulate due to knee Unable to care for self Acute encephalopathy Acute knee pain Acute UTI Altered mental status Fall Volume depletion Altered mental status Carotid artery disease Elevated troponin Parotid mass Chief Complaint biopsy fall parotid mass bilateral leg swelling, sent by Reason for Visit Altered mental statu s Carotid artery disease Elevated troponin Parotid mass Chief Complaint biopsy fall parotid mass bilateral leg swelling, sent by Reason for Visit Altered mental statu s Carotid artery disease Elevated troponin Parotid mass Acute exacerbation of CHF (congestive heart failure) Acute on chronic systolic (congestive) heart failure BRANDI (acute kidney injury) Anemia Carotid artery disease Encounter for assessment of healthcare decision-making capacity Generalized weakness Gout HTN (hypertension) Impaired mobility and ADLs Inability to walk Monoclonal gammopathy of renal significance (MGRS) Occipital stroke Parotid mass Proteinuria Unable to care for self Chief Complaint bilateral leg swelli ng, sent by dr urszula fowler inpt f/u Reason for Visit Acute on chronic sys tolic (congestive) heart failure BRANDI (acute kidney injury) Anemia Carotid artery disease Encounter for assessment of healthcare decision-making capacity HTN (hypertension) Impaired mobility and ADLs Inability to walk Monoclonal gammopathy of renal significance (MGRS) Occipital stroke Parotid mass Proteinuria Unable to care for self Acute exacerbation of CHF (congestive heart failure) Parotid mass Parotid mass Chief Complaint bilateral leg swelli ng, sent by dr urszula fowler inpt f/u right knee pain, needs home health Reason for Visit Acute on chronic sys tolic (congestive) heart failure BRANDI (acute kidney injury) Anemia Carotid artery disease Encounter for assessment of healthcare decision-making capacity HTN (hypertension) Impaired mobility and ADLs Inability to walk Monoclonal gammopathy of renal significance (MGRS) Occipital stroke Parotid mass Proteinuria Unable to care for self Acute exacerbation of CHF (congestive heart failure) Parotid mass Parotid mass Confusion Knee pain, right Unable to care for self Chief Complaint bilateral leg swelli ng, sent by dr urszula fowler inpt f/u right knee pain, needs home health right knee pain, needs home health right knee pain, needs home health Reason for Visit Acute on chronic sys tolic (congestive) heart failure BRANDI (acute kidney injury) Anemia Carotid artery disease Encounter for assessment of healthcare decision-making capacity HTN (hypertension) Impaired mobility and ADLs Inability to walk Monoclonal gammopathy of renal significance (MGRS) Occipital stroke Parotid mass Proteinuria Unable to care for self Acute exacerbation of CHF (congestive heart failure) Parotid mass Parotid mass Confusion Encounter for assessment of decision-making capacity Knee pain, right Unable to care for self Reason for Referral Specialty Diagnoses / Procedures Referred By Contmoisés t Referred To Contact Physical Therapy Diagnoses Adult failure to thrive Primary osteoarthritis of right knee Procedures SD OFFICE/OUTPATIENT NEW HIGH MDM 60 MINUTES Raheem Ambrosio, DO [address] [place] [address] Mariano Hart, PT [address] [place] [address] Referral ID Status Reason Start Date Expiration Date Visits Requested Visits Authorized [id number] Authorized Specialty Services Required 10/11/2023 04/08/2024 10 10 Specialty Diagnoses / Procedures Referred By Contac t Referred To Contact Diagnoses Two-vessel coronary artery disease Pre-operative cardiovascular examination Procedures ECG 12 Lead Manjinder Galloway MD [address] [place] [address] Referral ID Status Reason Start Date Expiration Date V isits Requested Visits Authorized [id number] Authorized 11/07/2023 11/06/2024 1 1 Specialty Diagnoses / Procedures Referred By Contac t Referred To Contact Cardiology Diagnoses Two-vessel coronary artery disease Procedures Follow Up In Cardiology Manjinder Galloway MD [address] [place] [address] Manjinder Galloway MD [address] [place] [address] Referral ID Status Reason Start Date Expiration Date V isits Requested Visits Authorized [id number] Authorized 11/07/2023 11/06/2024 1 1 Specialty Diagnoses / Procedures Referred By Contac t Referred To Contact Cardiology Diagnoses Carotid stenosis, right Procedures Vascular US carotid artery duplex bilateral Deepali Olson, [employer] EDUC[employer] [address] [place] [address] Referral ID Status Reason Start Date Expiration Date Visits Requested Visits Authorized [id number] Pending Review Perform Procedure 02/16/2023 02/16/2024 1 1 Specialty Diagnoses / Procedures Referred By Contac t Referred To Contact Radiology Diagnoses Two-vessel coronary artery disease Ischemic cardiomyopathy Carotid stenosis, right Pre-operative cardiovascular examination Procedures Nuclear Stress Test CHG MYOCARDIAL SPECT MULTIPLE STUDIES CHG MYOCARDIAL SPECT SINGLE STUDY AT REST OR STRESS Manjinder Galloway MD [address] [facility] 2, [address] [address] Referral ID Status Reason Start Date Expiration Date V isits Requested Visits Authorized [id number] Pending Review 01/17/2023 01/17/2024 5 5 Specialty Diagnoses / Procedures Referred By Kevin ruby Referred To Contact Cardiology Diagnoses Two-vessel coronary artery disease Procedures Follow Up In Cardiology Manjinder Galloway MD [address] [facility] 2, [address] [address] Manjinder Galloway MD [address] [facility] 2, [address] [address] Referral ID Status Reason Start Date Expiration Date V isits Requested Visits Authorized [id number] Authorized 01/17/2023 01/17/2024 1 1 Additional Source Comments (unrecognized sect ion and content) No Status Records FoundNo Status Records FoundNo Status Records FoundNo Status Records FoundNo Status Records FoundNo Status Records Found INFORMATION SOURCE (unrecogn ized section and content) DATE CREATED AUTHOR 02/10/2021 [facility] dical Specialist DATE CREATED AUTHOR AUTHOR'S ORGANIZ ATION 08/04/2023 [facility] DATE CREATED AUTHOR AUTHOR'S ORGANIZ ATION 10/13/2023 [facility] d[facility] Specialists EPIC DATE CREATED AUTHOR AUTHOR'S ORGANIZ ATION 11/17/2023 [facility] DATE CREATED AUTHOR AUTHOR'S ORGANIZ ATION 06/13/2024 [facility] DATE CREATED AUTHOR AUTHOR'S ORGANIZ ATION 08/07/2024 [facility] REASON FOR VISIT (unrecogniz ed section and content) Reason Comments Follow-up Discharge follow up 12/22 Specialty Diagnoses / Procedures Referred By Kvein ruby Referred To Contact Cardiology Diagnoses Syncope and collapse Procedures Follow Up In Cardiology Manjinder Galloway MD [address] [place] [address] 2, [address] [address] Manjinder Galloway MD [address] [place] [address] 2, [address] [address] Referral ID Status Reason Start Date Expiration Date V isits Requested Visits Authorized [id number] Authorized 12/22/2022 12/22/2023 1 1 Specialty Diagnoses / Procedures Referred By Contac t Referred To Contact Radiology Diagnoses Two-vessel coronary artery disease Ischemic cardiomyopathy Carotid stenosis, right Pre-operative cardiovascular examination Procedures Nuclear Stress Test CHG MYOCARDIAL SPECT MULTIPLE STUDIES CHG MYOCARDIAL SPECT SINGLE STUDY AT REST OR STRESS Manjinder Galloway MD [address] [place] [address], [address] [address] Referral ID Status Reason Start Date Expiration Date V isits Requested Visits Authorized [id number] Pending Review 01/17/2023 01/17/2024 5 5 Specialty Diagnoses / Procedures Referred By Contac t Referred To Contact Cardiology Diagnoses Carotid stenosis, right Procedures Vascular US carotid artery duplex bilateral WesleyDeepali gutierrez, [employer]UC[employer] [address] [place] [address] Referral ID Status Reason Start Date Expiration Date Visits Requested Visits Authorized [id number] Pending Review Perform Procedure 02/16/2023 02/16/2024 1 1 Reason Comments New Patient Visit Carotid Artery Disease Reason Comments Follow-up Reason Comments Follow-up Reason Comments Follow-up [address] Melanie schroeder carotid ectetomy Specialty Diagnoses / Procedures Referred By Contac t Referred To Contact Diagnoses Two-vessel coronary artery disease Pre-operative cardiovascular examination Procedures ECG 12 Lead Manjinder Galloway MD [address] [place] [address], [address] [address] Referral ID Status Reason Start Date Expiration Date V isits Requested Visits Authorized [id number] Authorized 11/07/2023 11/06/2024 1 1 Reason Comments Weakness, Gen Reason Comments Follow-up 6 month Two-vessel c oronary artery disease Specialty Diagnoses / Procedures Referred By Contac t Referred To Contact Cardiology Diagnoses Two-vessel coronary artery disease Procedures Follow Up In Cardiology Manjinder Galloway MD [address] [place] [address] 2, [place] [id number] Phone: tel: fax: Manjinder Galloway MD [address] [place] [address] 2, [facility] [address] [id number] Phone: tel: fax: Referral ID Status Reason Start Date Expiration Date V isits Requested Visits Authorized [id number] Pending Review 11/07/2023 11/06/2024 1 1 Reason Onset Date Comments Fall 10/15/2024 Care Teams (unrecognized sec tion and content) Team Status: Active Member Role Status Dates Damian Ambrosio DO Primary Care Provider Active Team Status: Active Member Role Status Dates Damian Ambrosio DO Primary Care Provider Active Start: February 28, 2023 Christi Wilson DO Emergency Provider Active Start: February 28, 2023 Mariano Dennis DO Admit Provider, Atte nding Provider, Other Provider Active Start: February 28, 2023 Ayaz Cruz MD Other Provider Active Start: February 28, 2023 Dennis Camargo DO Other Provider Active Start: February 28, 2023 Nehal Cooper MD Attending Provider, Other Provider Active Start: February 28, 2023 Anil Chun DO Other Provider Active Start: February 28, 2023 End: March 08, 2023 Mike Odom II, DO Other Provider Active Start: February 28, 2023 End: March 08, 2023 Nicol Almanza DO Other Provider Active Start : February 28, 2023 End: March 08, 2023 Team Status: Active Member Role Status Dates Franck Pérez MD Attending Provider Active Start: March 24, 2023 Damian Ambrosio DO Primary Care Provider Active Start: March 24, 2023 Nicol Almanza DO Referring Provider Active S tart: March 24, 2023 Team Status: Inactive Member Role Status Dates Damian Ambrosio , Primary Care Provider Active Start: March 24, 2023 End: March 24, 2023 Mike Odom II, DO Attending Provider Active Start: March 24, 2023 End: March 24, 2023 Team Status: Inactive Member Role Status Dates Damian Joelmatthias , DO Primary Care Provider Active Tomas Bradley , DO Emergency Provider Active Andrea Corea MD Admit Provider Active Dennis Camargo , DO Attending Provider Active Anil Chun , DO Other Provider Active Team Status: Inactive Member Role Status Dates Damian Joelmatthias , DO Primary Care Provider Active Edilberto Wilkerson PA-C Emergency Provider Active Team Status: Active Member Role Status Dates Damian Joelmatthias , DO Primary Care Provider Active Hilary Tolliver Jr, MD Emergency Provider Active Hunter Silvestre MD Admit Provider, Attending Pro vider Active Team Status: Inactive Member Role Status Dates Damian Joelmatthias , DO Primary Care Provider Active Hilary Tolliver Jr, MD Emergency Provider Active Hunter Silvestre MD Admit Provider Active Pedro Luis Frye MD Attending Provider Active Elizabeth Williamson MD Other Provider Active Victor M Kumar , DO Other Provider Active Ayaz Cruz MD Other Provider Active Team Status: Active Member Role Status Dates Damian Joelmatthias , Primary Care Provider Active Mariano Wilkins MD Emergency Provider Active Tricia Salazar MD Admit Provider, Attending Provi truman Active Team Status: Inactive Member Role Status Dates Damian Joelmatthias , DO Primary Care Provider Active Mariano Wilkins MD Emergency Provider Active Tricia Salazar MD Admit Provider Active Aashish Natarajan , DO Attending Provider Active Ayaz Cruz MD Other Provider Active Team Status: Inactive Member Role Status Dates Damian Akhtar Daily , DO Primary Care Provider Active Ayaz Cruz MD Admit Provider, Attending Provider Active Team Status: Inactive Member Role Status Dates Damian Akhtar Daily , DO Primary Care Provider Active Hilary Tolliver Jr, MD Emergency Provider Active Hunter Silvestre MD Admit Provider Active Pedro Luis Frye MD Attending Provider Active William Williamson MD Other Provider Active Victor M Kumar , DO Other Provider Active Ayaz Cruz MD Other Provider Active Team Status: Inactive Member Role Status Dates Damian Joelmatthias , DO Primary Care Provider Active Ayaz Cruz MD Attending Provider Active Team Status: Active Member Role Status Dates Damian Joelmatthias , DO Primary Care Provider Active Hudson Patel , DO Emergency Provider Active Tricia Salazra MD Admit Provider, Attending Provi truman Active Hilary Rice MD Other Provider Active Mariano Morris MD Other Provider Active Amalia Syed MD Other Provider Active Victor M Kumar , DO Other Provider Active Hermilo Avendaño II, MD Other Provider Active Toby Lopez , DO Other Provider Active Team Status: Inactive Member Role Status Dates Damian Joelmatthias , DO Primary Care Provider Active Hudson Patel , DO Emergency Provider Active Tricia Salazar MD Admit Provider Active Hilary Rice MD Other Provider Active Mariano Morris MD Other Provider Active Amalia Syed MD Other Provider Active Victor M Kumar , DO Other Provider Active Hermilo Avendaño II, MD Other Provider Active Toby Lopez , DO Other Provider Active Adin Boyce MD Attending Provider Active Team Status: Active Member Role Status Dates PHYSICIAN NO FAMILY Primary Care Provider Active Team Status: Inactive Member Role Status Dates Nicol Almanza , DO Attending Provider Active Team Status: Active Member Role Status Dates PHYSICIAN NO FAMILY Primary Care Provider Active Hudson Patel , DO Emergency Provider Active Celeste Alfonso MD Admit Provider, Attending Provide r Active Team Status: Inactive Member Role Status Dates PHYSICIAN NO FAMILY Primary Care Provider Active Hudson Patel , DO Emergency Provider Active Celeste Alfonso MD Admit Provider, Attending Provide r Active Emma Ludwig RN Other Provider Active Demetria Camargo , DO Other Provider Active Krissy Moctezuma MD Other Provider Active Fredrick Moss MD Other Provider Active Manjinder Galloway MD Other Provider Active Noel Barajas MD Other Provider Active Keke Chino APRN Other Provider Active Acacia Whitaker MD Other Provider Active Rianna Prater MD Other Provider Active Sam Bradshaw MD Other Provider Active Jazmin Arnett , [facility]- Other Provider Active Caron Doherty MD Other Provider Active Andrei Araujo MD Other Provider Active Team Status: Active Member Role Status Dates Franck Pérez MD Attending Provider Active Damian Ambrosio , Primary Care Provider Active Nicol Almanza , Referring Provider Active Aviation Maintenance Instructor Relationship Specialty Start Date End Date Generic Provider, No Assigned PcpMD [address] [place] [address] PCP - General Family Medicine 12/31/22 Franck Pérez MD [address] [place] [address] Referring Physician Radiation Oncology 01/12/23 Aviation Maintenance Instructor Relationship Specialty Start Date End Date Generic Provider, No Assigned MD Gabriel [address] [place] [address] PCP - General Family Medicine 12/31/22 Franck Pérez MD [address] [place] [address] Referring Physician Radiation Oncology 01/12/23 Aviation Maintenance Instructor Relationship Specialty Start Date End Date Generic Provider, No Assigned MD Gabriel [address] [place] [address] PCP - General Family Medicine 12/31/22 Franck Pérez MD [address] [place], [place] [address] Referring Physician Radiation Oncology 01/12/23 Nicol Almanza DO [address] [place] [address] Referring Physician Otolaryngology 01/27/23 Aviation Maintenance Instructor Relationship Specialty Start Date End Date Generic Provider, No Assigned MD Gabriel [address] [place] [address] PCP - General Family Medicine 12/31/22 Franck Pérez MD [address] [facility] [place] [address] Referring Physician Radiation Oncology 01/12/23 Nicol Almanza DO [address] [place] [address] Referring Physician Otolaryngology 01/27/23 Team Status: Active Member Role Status Dates Damian Ambrosio , Primary Care Provider Active Christi Wilosn , DO Emergency Provider Active Mariano Dennis , DO Admit Provider, Attending Provider Active Team Status: Inactive Member Role Status Dates Nicol Almanza , Attending Provider Active S tart: December 09, 2022 End: December 09, 2022 Team Status: Inactive Member Role Status Dates PHYSICIAN NO FAMILY Primary Care Provider Active Start: December 19, 2022 End: December 23, 2022 Hudson Patel DO Emergency Provider Active Start: December 19, 2022 End: December 23, 2022 Celeste Alfonso MD Admit Provider, Att ending Provider Active Start: December 19, 2022 End: December 23, 2022 Emma Ludwig RN Other Provider Active Star t: December 19, 2022 End: December 23, 2022 Demetria Camargo DO Other Provider Active Start : December 19, 2022 End: December 23, 2022 Krissy Moctezuma MD Other Provider Active Start: December 19, 2022 End: December 23, 2022 Fredrick Moss MD Other Provider Active Start: December 19, 2022 End: December 23, 2022 Manjinder Galloway MD Other Provider Active St art: December 19, 2022 End: December 23, 2022 Noel Barajas MD Other Provider Active Start: December 19, 2022 End: December 23, 2022 Keke Chino APRN Other Provider Active Start: December 19, 2022 End: December 23, 2022 Acacia Whitaker MD Other Provider Active Start: N ov2022 End: December 23, 2022 Rianna Prater MD Other Provider Active Start: December 19, 2022 End: December 23, 2022 Sam Bradshaw MD Other Provider Active Start: N ov2022 End: December 23, 2022 Jazmin Arnett , [facility] Other Provider Active Sta rt: December 19, 2022 End: December 23, 2022 Caron Doherty MD Other Provider Active Start: December 19, 2022 End: December 23, 2022 Andrei Araujo MD Other Provider Active Start : December 19, 2022 End: December 23, 2022 Team Status: Active Member Role Status Dates Franck Pérez MD Attending Provider Active Start: January 03, 2023 Damian Ambrosio DO Primary Care Provider Active Start: January 03, 2023 Nicol Almanza DO Referring Provider Active S tart: January 03, 2023 Aviation Maintenance Instructor Relationship Specialty Start Date End Date Generic Provider, No Assigned Pcp, [address] [place] [address] PCP - General Family Medicine 12/31/22 Franck Pérez MD [address] [place] [address] Referring Physician Radiation Oncology 01/12/23 Nicol Almanza DO [address] [place] [address] Referring Physician Otolaryngology 01/27/23 Team Status: Active Member Role Status Dates Damian Ambrosio DO Primary Care Provider Active Start: April 27, 2023 Afua Mae APRN Emergency Provider Active Start: April 27, 2023 Mariano Dennis DO Admit Provider, Atte nding Provider Active Start: April 27, 2023 Team Status: Active Member Role Status Dates Damian Ambrosio DO Primary Care Provider Active Start: April 27, 2023 Afua Mae APRN Emergency Provider Active Start: April 27, 2023 Mariano Dennis DO Admit Provider, Atte nding Provider, Other Provider Active Start: April 27, 2023 Team Status: Active Member Role Status Dates Damian Ambrosio DO Primary Care Provider Active Start: April 28, 2023 Afua Mae APRN Emergency Provider Active Start: April 28, 2023 Mariano Dennis DO Admit Provider, Othe r Provider Active Start: April 28, 2023 Hilary Rice MD Attending Provider, Other Provider Active Start: April 28, 2023 William Williamson MD Other Provider Active Start: April 28, 2023 Team Status: Inactive Member Role Status Dates Damian Ambrosio DO Primary Care Provider Active Start: May 01, 2023 End: May 02, 2023 Afua Mae APRN Emergency Provider Active Start: May 01, 2023 End: May 02, 2023 Mariano Dennis DO Admit Provider Active Start: May 01, 2023 End: May 02, 2023 Hilary Rice MD Other Provider Active Start: 2023 End: May 02, 2023 William Williamson MD Other Provider Active Start: May 01, 2023 End: May 02, 2023 Celeste Alfonso MD Attending Provider Active S tart: May 01, 2023 End: May 02, 2023 Aviation Maintenance Instructor Relationship Specialty Start Date End Date Raheem Ambrosio DO [address] [place] [address] PCP - ACO Reach 04/14/23 Raheem Ambrosio DO [address] [place] [address] PCP - General Family Medicine 10/06/23 Aviation Maintenance Instructor Relationship Specialty Start Date End Date Raheem Ambrosio DO [address] [place] [address] PCP - General Family Medicine 11/15/23 Franck Pérez MD [address] [place] [address] Referring Physician Radiation Oncology 01/12/23 Nicol Almanza DO [address] [place] [address] Referring Physician Otolaryngology 01/27/23 Aviation Maintenance Instructor Relationship Specialty Start Date End Date Raheem Ambrosio DO [address] [place] [address] PCP - General Family Medicine 11/15/23 Franck Pérez MD [address] [place] [address] Referring Physician Radiation Oncology 01/12/23 Nicol Almanza DO [address] [place] [address] Referring Physician Otolaryngology 01/27/23 Aviation Maintenance Instructor Relationship Specialty Start Date End Date Generic Provider, No Assigned MD Gabriel PCP - General Family Medicine 12/31/22 Franck Pérez MD [address] [place] [address] Referring Physician Radiation Oncology 01/12/23 Nicol Almanza DO [address] [place] [address] Referring Physician Otolaryngology 01/27/23 Aviation Maintenance Instructor Relationship Specialty Start Date End Date Generic Provider, No Assigned MD Gabriel PCP - General Family Medicine 12/31/22 Franck Pérez MD [address] [facility] [place] [address] Referring Physician Radiation Oncology 01/12/23 Nicol Almanza, DO [address] [place] [address] Referring Physician Otolaryngology 01/27/23 Aviation Maintenance Instructor Relationship Specialty Start Date End Date Raheem Ambrosio DO [address] [place] [address] PCP - ACO Reach 04/14/23 Raheem Ambrosio DO [address] [place] [address] PCP - General Family Medicine 10/06/23 Aviation Maintenance Instructor Relationship Specialty Start Date End Date Raheem Ambrosio DO [address] [place] [address] PCP - ACO Reach 04/14/23 Raheem Ambrosio DO [address] [place] [address] PCP - General Family Medicine 10/06/23 Aviation Maintenance Instructor Relationship Specialty Start Date End Date Raheem Ambrosio DO [address] [place] [address] PCP - ACO Reach 04/14/23 Raheem Ambrosio DO [address] [place] [address] PCP - General Family Medicine 10/06/23 Aviation Maintenance Instructor Relationship Specialty Start Date End Date Raheem Ambrosio DO [address] [place] [address] PCP - ACO Reach 04/14/23 Raheem Ambrosio DO [address] [place] [address] PCP - General Family Medicine 10/06/23 Aviation Maintenance Instructor Relationship Specialty Start Date End Date Raheem Ambrosio DO [address] [place] [address] PCP - General Family Medicine 11/15/23 Franck Pérez MD [address] [place] [address] Referring Physician Radiation Oncology 01/12/23 Nicol Almanza DO [address] [place] [address] Referring Physician Otolaryngology 01/27/23 Aviation Maintenance Instructor Relationship Specialty Start Date End Date Raheem Ambrosio DO [address] [place] [address] PCP - General Family Medicine 11/15/23 Franck Pérez MD [address] [place] [address] Referring Physician Radiation Oncology 01/12/23 Nicol Almanza DO [address] [place] [address] Referring Physician Otolaryngology 01/27/23 Aviation Maintenance Instructor Relationship Specialty Start Date End Date Raheem Ambrosio DO [address] [place] [address] PCP - General Family Medicine 11/15/23 Franck Pérez MD [address] [place] [address] Referring Physician Radiation Oncology 01/12/23 Nicol Almanza DO [address] [place] [address] Referring Physician Otolaryngology 01/27/23 Goals (unrecognized section and content) Goals may be documented in a n alternate section Scheduled Active and Recently Administ ered Medications (unrecognized section and content) Medication Order 11/22/2023 11/23/2023 11/24/2023 acetaminophen (Ofirmev) injection 1,000 mg (COMPLETED) 1,000 mg, intravenous, at 400 mL/hr, Administer over 15 Minutes, Once, On Mon11/22/23 at 1630, For 1 dose 1615 (New Bag - Provider: Shy Kaminski RN)1630 (Due: Stopped - Provider: Shy Kaminski RN) acetaminophen (Tylenol) oral liquid 1,000 mg(Linked Group 1) 1,000 mg, oral, Every 8 hours scheduled, First dose on Mon11/23/23 at 0030, If unable to take tablets 0054 (See Alternative - Provider: Betty Schulz RN)0925 (See Alternative - Provider: Sherry Faye, LAVELL)1546 (See Alternative - Provider: Sherry Faye RN) 0148 (Given - Provider: Bart Ramos RN - Comment: per Pt request for sleep)0830 (Due)1630 (Due) acetaminophen (Tylenol) oral liquid 1,000 mg(Linked Group 1) 1,000 mg, g-tube, Every 8 hours scheduled, First dose on Macey 11/23/23 at 0030, If NPO 0054 (See Alternative - Provider: Betty Schulz RN)0925 (See Alternative - Provider: Sherry Faye RN)1546 (See Alternative - Provider: Sherry Faye RN) 0148 (See Alternative - Provider: Bart Ramos, LAVELL)0830 (Due)1630 (Due) acetaminophen (Tylenol) tablet 975 mg(Linked Group 1) 975 mg, oral, Every 8 hours scheduled, First dose on Macey 11/23/23 at 0030, If ordered PRN for pain, nurse is permitted to administer this medication for higher pain scores based on patient preference? Yes 0054 (Not Given - Provider: Betty Schulz RN - Reason: Patient/family refused)0925 (Given - Provider: Sherry Faye RN)1546 (Given - Provider: Sherry Faye RN) 0148 (See Alternative - Provider: Bart Ramos RN)0830 (Due)1630 (Due) ARIPiprazole (Abilify) tablet 5 mg 5 mg, oral, Daily, First dose on Mon11/22/23 at 1915 2133 (Given - Provider: Mingo Santo RN) 0926 (Given - Provider: Sherry Faye RN) 0959 (Given - Provider: Mingo Santo RN) aspirin EC tablet 81 mg 81 mg, oral, Daily, First dose on Mon11/22/23 at 1830, Do not crush, chew, or split. 2133 (Given - Provider: Mingo Santo RN) 0924 (Given - Provider: Sherry Faye RN) 0959 (Given - Provider: Mingo Santo RN) atorvastatin (Lipitor) tablet 10 mg 10 mg, oral, Daily, First dose on Mon11/22/23 at 1999 2246 (Not Given - Provider: Mingo Santo RN - Reason: Order parameters not met) 2202 (Given - Provider: Bart Ramos RN - Comment: workflow) 1999 (Due) carvedilol (Coreg) tablet 3.125 mg 3.125 mg, oral, 2 times daily, First dose on Mon11/22/23 at 2100 2133 (Given - Provider: Mingo Santo RN) 09 (Given - Provider: Sherry Faye RN)220 (Given - Provider: Bart Ramos, LAVELL) 09 (Given - Provider: Mingo Santo RN)2099 (Due) furosemide (Lasix) tablet 40 mg 40 mg, oral, Daily, First dose on Mon11/24/23 at 0900, Indications: edema 0900 (Due) heparin (porcine) injection 5,000 Units 5,000 Units, subcutaneous, Every 8 hours, First dose on Mon11/22/23 at 1830 2134 (Given - Provider: Mingo Santo RN) 0240 (Not Given - Provider: Betty Schulz RN - Reason: Order parameters not met - Comment: last dose given late)0931 (Given - Provider: Sherry Faye RN)1845 (Given - Provider: Sherry Faye RN) 0149 (Given - Provider: Bart Ramos RN)1030 (Due)183 (Due) mirtazapine (Remeron) tablet 30 mg 30 mg, oral, Nightly, First dose on Mon11/22/23 at 2100 213 (Given - Provider: Mingo Santo RN) 2202 (Given - Provider: Bart Ramos RN) 2099 (Due) oxygen (O2) therapy (COMPLETED) inhalation, Once, On Mon11/22/23 at 1600, For 1 dose, Recovery (only), Device: Nasal Cannula, Rate in liters per minute: Other, Custom Value: 1-6 LPM, Keep O2 Sat Above: 92% 1535 (Start - Provider: Shy Kaminski RN) pantoprazole (ProtoNix) EC tablet 40 mg 40 mg, oral, Daily, First dose on Mon11/23/23 at 0600, Do not crush, chew, or split. 0540 (Given - Provider: Betty Schulz RN) 0730 (Due - Provider: Bart Ramos RN - Comment: per Pt request for sleep) polyethylene glycol (Glycolax, Miralax) packet 17 g 17 g, oral, Daily, First dose on Mon11/22/23 at 1830, Bowel Regimen - for prevention of constipation. 2242 (Not Given - Provider: Mingo Santo RN - Reason: Order parameters not met) 1106 (Not Given - Provider: Sherry Faey RN - Reason: Patient/family refused) 1108 (Not Given - Provider: Mingo Santo RN - Reason: Order parameters not met) pregabalin (Lyrica) capsule 100 mg 100 mg, oral, 3 times daily, First dose on Mon11/22/23 at 2100 2133 (Given - Provider: Mingo Santo RN) 0935 (Given - Provider: Sherry Faye RN)1546 (Given - Provider: Sherry Faye RN)2202 (Given - Provider: Bart Ramos, LAVELL) 0959 (Given - Provider: Mingo Santo RN)1500 (Due)2100 (Due) tamsulosin (Flomax) 24 hr capsule 0.4 mg 0.4 mg, oral, Daily, First dose on Mon11/22/23 at 2000, Give 30 minutes after the same mealtime each day. Capsules should be swallowed whole; do not crush, chew, or open. 2133 (Given - Provider: Mingo Santo RN) 2203 (Given - Provider: Bart Ramos, LAVELL) 2000 (Due) vortioxetine (Trintellix) tablet 10 mg 10 mg, oral, Daily, First dose on Mon11/22/23 at 1930 2242 (Not Given - Provider: Mingo Santo RN - Reason: Order parameters not met) 0925 (Given - Provider: Sherry Faye RN) 0959 (Given - Provider: Mingo Santo RN) Continuous Medication Order 11/22/2023 11/23/2023 11/24/2023 lactated Ringer's infusion (CANCELED) 50 mL/hr, intravenous, Continuous, Starting on Mon11/22/23 at 1600, Recovery (only) 1535 (New Bag - Provider: Shy Kaminski RN)2305 (Rate/Dose Verify - Provider: Mingo Santo RN) 0127 (Rate/Dose Verify - Provider: Betty Schulz RN)0551 (New Bag - Provider: Betty Schulz RN)1205 (Stopped - Provider: Sherry Faye RN) PRN Medication Order 11/22/2023 11/23/2023 11/24/2023 HYDROmorphone (Dilaudid) injection 0.5 mg (CANCELED) 0.5 mg, intravenous, Every 5 min PRN, pain severe (7-10), first line, Starting on Mon11/22/23 at 1535, For 2 doses, Recovery (only), Max total of 1 mg regardless of dose. 1555 (Given - Provider: Shy Kaminski RN) naloxone (Narcan) injection 0.2 mg 0.2 mg, intravenous, Every 5 min PRN, respiratory depression, Starting on Mon11/22/23 at 1732, If respiratory rate is less than 8 breaths/minute or patient is difficult to arouse stop any narcotics and contact physician. Administer slow IV push. Repeat as ordered until patient's respiratory rate is greater than 12 breaths/minute. oxyCODONE (Roxicodone) immediate release tablet 5 mg 5 mg, oral, Every 6 hours PRN, pain severe (7-10), first line, Starting on Mon11/22/23 at 1732, If ordered PRN for pain, nurse is permitted to administer this medication for higher pain scores based on patient preference? Yes sodium chloride 0.9 % irrigation solution (CANCELED) As needed, Starting on Mon11/22/23 at 1407, Intraprocedure 1407 (Given - Provider: Orion Etienne MD - Comment: face b) Linked Groups Order Group 1: acetaminophen (Tylenol) tablet 975 mgJump to med 975 mg, oral, Every 8 hours scheduled, First dose on Macey 11/23/23 at 0030, If ordered PRN for pain, nurse is permitted to administer this medication for higher pain scores based on patient preference? Yes Or acetaminophen (Tylenol) oral liquid 1,000 mgJump to med 1,000 mg, oral, Every 8 hours scheduled, First dose on [place] 11/23/23 at 0030, If unable to take tablets Or acetaminophen (Tylenol) oral liquid 1,000 mgJump to med 1,000 mg, g-tube, Every 8 hours scheduled, First dose on Mon11/23/23 at 0030, If NPO FOR RECORDS PERTAINING TO PATIENTS WHO ARE OR HAVE BEEN ENROLLED IN A CHEMICAL DEPENDENCY/SUBSTANCEABUSE PROGRAM, SOME INFORMATION MAY BE OMITTED. This clinical summary was aggregated from multiple sources. Caution should be exercised in using it in the provision of clinical care. This summary normalizes information from multiple sources, and as a consequence, information in this document may materially change the coding, format and clinical context of patient data. In addition, data may be omitted in some cases. CLINICAL DECISIONS SHOULD BE BASED ON THE PRIMARY CLINICAL RECORDS. [facility] [employer] [facility] provides no warranty or guarantee of the accuracy or completeness of information in this document.
== END 2024-10-24 08:59 | disposition home or self-care (01) ==
LOC: CARD 08:58
PROVIDERS: PCP Family Medicine; Visit Provider Physician Assistant
DX: R09.89 Other specified symptoms and signs involving the circulatory and respiratory systems (principal)
CPT/HCPCS: 93923

== ENCOUNTER 2024-11-07 11:48 | Outpatient (OUT) | payer MEDICARE, BC, SELFPAY ==
--- OUTSIDE RECORDS SUMMARY | 2024-11-07 12:05 | XMS_ITS | CCD ---
Author Organization [facility] Care Team Providers Care Chrome Cleaner Name Role Phone Alejandra Bar Unavailable DO Damian Ambrosio Primary Care Provider DO Tomas Bradley Emergency Provider Al MD Andrea Ross Admit Provider DO Dennis Camargo Attending Provider DO Anil Chun Other Provider DO Damian Ambrosio Primary Care Provider MARTY Wilkerson Emergency Provider MD Hilary Tolliver Jr Emergency Provider MD Hunter Silvestre Admit Provider [phone] MD Hunter Silvestre Attending Provider MD Pedro Luis Frye Attending Provider [phone] MD Elizabeth Williamson Other Provider DO Victor M Kumar Other Provider MD Ayaz Cruz Other Provider MD Mariano Wilkins Emergency Provider MD Tricia Salazar Admit Provider [phone] MD Tricia Salazar Attending Provider MD Mariano Wilkins Emergency Provider MD Tricia Salazar Admit Provider DO Aashish Natarajan Attending Provider MD Ayaz Cruz Admit Provider MD Ayaz Cruz Attending Provider MD William Williamson Other Provider DO Hudson Patel Emergency Provider MD Tricia Salazar Attending Provider MD Hilary Rice Other Provider MD Mariano Morris Other Provider [phone] MD Amalia Syed Other Provider MD Hermilo Avendaño II Other Provider DO Toby Lopez Other Provider MD Adin Boyce Attending Provider DO Damian Ambrosio Primary Care Provider MARTY Wilkerson Emergency Provider MD Hilary Tolliver Jr Emergency Provider MD Hunter Silvestre Admit Provider MD Pedro Luis Frye Attending Provider MD William Williamson Other Provider DO Victor M Kumar Other Provider MD Ayaz Cruz Other Provider [phone] MD Mariano Wilkins Emergency Provider MD Tricia Salazar Admit Provider DO Aashish Natarajan Attending Provider MD Ayaz Cruz Attending Provider [phone] DO Hudson Patel Emergency Provider MD Hilary Rice Other Provider MD Mariano Morris Other Provider MD Amalia Syed Other Provider MD Hermilo Avendaño II Other Provider DO Toby Lopez Other Provider MD Adin Boyce Attending Provider DO Nicol Almanza Attending Provider [phone] NO FAMILY, PHYSICIAN Primary Care Provider Unava ilable MD Celeste Alfonso Admit Provider MD Celeste Alfonso Attending Provider LAVELL Ludwig Other Provider Unavailable DO Demetria Camargo Other Provider MD Krissy Moctezuma Other Provider MD Fredrick Moss Other Provider MD Manjinder Galloway Other Provider MD Noel Barajas Other Provider PHYLLIS Mix Other Provider MD Acacia Whitaker Other Provider MD Moi [facility] Naeb Other Provider MD Sam Bradshaw Other Provider Hope [facility] Jazmin Ramirez Other Provider MD Caron Doherty Other Provider MD Andrei Araujo Other Provider MD Franck Pérez Attending Provider DO Nicol Almanza Referring Provider [phone] Generic Provider MD, No Assigned Pcp Primary Car e Provider Unavailable Franck Pérez MD Unavailable Nicol Almanza DO Unavailable DO Hudson Patel Emergency Provider MD Franck Pérez Attending Provider DO Damian Ambrosio Primary Care Provider [phone] DO Nicol Almanza Referring Provider DO Christi Wilson Emergency Provider Fringpoonam, DO Quintana Admit Provider Frings, DO Quintana Attending Provider [phone] Generic Provider , No Assigned Pcp Primary Car e Provider Unavailable MD Franck Pérez Attending Provider DO Damian Ambrosio Primary Care Provider Tawnya, DO Sinclair Referring Provider MD Franck Pérez Attending Provider DO Damian Ambrosio Primary Care Provider [phone] Tawnya, DO Sinclair Referring Provider PHYLLIS Mae Emergency Provider Frina, DO Quintana Admit Provider Jeannie, DO Quintana Attending Provider PHYLLIS Mae Emergency Provider Jeannie, DO Quintana Admit Provider [phone] MD Hilary Rice Other Provider MD William Williamson Other Provider MD Celeste Alfonso Attending Provider Mariano Dennis Admitting Unavailable Damian Ambrosio Primary [...] Admitting Unavailable Damian Ambrosio Primary Care Unavailable Adni Boyce Attending Unavailable Hilary Rice Consulting Unavailable [...] Care Unavailable Raheem Ambrosio DO R Unavailable Raheem Ambrosio DO R Primary Care Provider Kamatthias DO, Raheem R Primary Care Provider Generic Provider MD, No Assigned Pcp Primary Car e Provider Unavailable Unavailable Primary Care Provider Unavailabl e Unavailable Primary Care Provider Unavailhuseyin Pérez MD, Franck Martínez Unavailable [phone] ORION ETIENNE Referring Unavailable RAHEEM AMBROSIO Primary [...] Morphine; Translations: [MORPHINE] Drug Allergy 3 Unknown [facility] Work Phone: (17 sources) Ramipril; Translations: [RAMIPRIL] Drug Allergy 3 Angioedema [facility] (11 sources) Nutritional Supplement-Fiber ; Translations: [NUTRITIONAL SUPPLEMENT-FIBER ] Propensity to adverse reactions 3 Unknown [facility] Work Phone: (8 sources) egg extract; Translations: [EGG] Drug Allergy 5 [facility] Work Phone: (14 sources) [place] Flavor; Translations: [CITRUS FLAVOR] Propensity to adverse reactions 5 [facility] (9 sources) egg yolk (chicken) allergenic extract Drug Allergy 5 [facility] (9 sources) Ramipril Allergy to substance 3 [facility] Work Phone: Medications Current Medications Medication Drug [...] (3 sources) Opioid Agonist Start: 05-28-2024 HYDROcodone-acetaminophen ([place]) 5-325 mg tablet 05/28/2024 Active ACETAMINOPHEN PAIN [...] morning aspirin 81 mg Indications: Atherosclerosis of [place] coronary artery of [place] heart without angina pectoris Take 1 tablet [...] 02, 2023 1:11pm take 1 capsule by [facility] once daily cholecalciferol (Vitamin D-3) 10 MCG [...] six hours as needed polyethylene glycol 3350 25947 mg powder for oral solution (1 source) [...] will be in the future per the [facility] doctor. Start: 08-08-2019 End: 03-08-2023 take 1 capsule by mouth three times daily Pregabalin (Lyrica) 100 mg Capsule Discontinued 100 MG PO Three times daily August 08, 2019 12:00am March 08, 2023 12:20pm take 1 capsule by mo [facility] twice daily pregabalin (Lyrica) 100 mg [...] and to get off it at the [facility] Start: 02-28-2023 End: 11-07-2023 take [...] 22, 2022 3:44pm take 1 capsule by [facility] every twelve hours CeleBREX 200 mg 1 [...] 20 mg/ml oral solution (12 sources) Uncompetitive N-cceiyu-G-aspartat e Receptor Antagonist, Sigma-1 Agonist Start: 11-03-2022 [...] 27, 2022 6:10pm take 1 capsule by [facility] every six hours as needed diphenhydrAMINE (BENADryl) [...] 01-25-2023 regadenoson (Lexiscan) injection 0.4 mg sennosides, prison 8.6 mg oral tablet (8 sources) End: [...] Coronary arteriosclerosis; Translations: [Atherosclerotic heart disease of [place] coronary artery without angina pectoris] Onset: 3 [...] Facility PT Skull base to mid-thighon 02-22-2024 [facility] Radiology Study observation (narrative) [facility] No Panel Informationon 12-03 SURG1 [facility] Healthcare SURG1 SEE COMMENT [facility] SURGICAL PATHOLOGY EXAMon SURG1 Pathology report.total NO [place] [facility] SURG1 Surgical Pathology C ase: [id number] [facility] Healthcare SURG1 Authorizing Provider : Orion Etienne MD Collected: 11/22/2023 1440 [facility] SURG1 Ordering Location: [facility] Received: 11/22/2023 1443 [facility] SURG1 [facility] OR [facility] Healthcare SURG1 Pathologist: Ankur Horta DDS [facility] Healthcare SURG1 Intraop: Jan cutler MD [facility] Healthcare SURG1 Specimen: PAROTID RESECTION LEFT, [...] Clinical correlation is recommended. [facility] SURG1 corporate learning consultant: Dr Rama Walls. [facility] Healthcare SURG1 Electronically rosy d by Ankur Horta DDS on 12/04/2023 at 11:14 AM [facility] SURG Laboratory comment [facility] SURG1 By the signature on this report, the individual or group listed as making the Final Interpretation/Diagnosis certifies that they have reviewed this case. [facility] SURG1 RESIDENT REVIEW [facility] SURG The gross and/or microscopic findings were reviewed in conjunction with pathology resident, Ewa Ni MD. 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 [facility] Healthcare SURG1 [facility] Healthcare SURG1 Summary of Cassettes: [facility] [address] [facility] SURG1 Specimen Label Site [facility] SURG1 A 1 Frozen portion, taken from [...] Date and Time: 11/22/23 at 3:13 [facility] SURG1 Intraoperative Diagnosis: [facility] SURG1 Squamous cell carcinoma. 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] Original Ordering Provider: ORION ETIENNE psicofxp [facility] Glucose Test strip manual (B ld) [Mass/Vol]on 11-23-2023 Glucose [Mass/Vol] 91 mg/dL 74 - 99 mg/dL [facility] Interpretation and review of laboratory results Normal [facility] Glucose [Mass/Vol] 91 mg/dL Normal 74-99 [facility] Comment on above: Performed By: #### 2 341-6 #### MONICA Ramirez ([id number]) [facility] ([facility]) [address] [place] [address] Glucose [Mass/Vol] 164 mg/dL High 74 - 99 mg/dL [facility] Interpretation and review of laboratory results Abnormal [facility] Glucose [Mass/Vol] 164 mg/dL High 74-99 [facility] Comment on above: Performed By: #### 2 341-6 #### MONICA Ramirez ([id number]) [facility] ([facility]) [address] [place] [address] GLUCOSE-POCTon 11-23-2023 Glucose [Mass/Vol] 164 mg/dL High 74 - 99 mg/dL [facility] Interpretation and review of laboratory results Abnormal [facility] Original Ordering Provider: ORION DURBINFocus MediaHOME [facility] Surgical pathology studyon 1 Surgical pathology study Pathology report.total SEE COMMENT Surgical Pathology Case: [id number] Authorizing Provider: Orion Etienne MD Collected: 11/22/2023 1440 Ordering Location: [facility] Received: 11/22/2023 1443 [facility] OR [...] be ruled out. Clinical correlation is recommended. corporate learning consultant: Dr. Gabriel Walls. Laboratory comment By [...] specimen is submitted entirely in 12 cassettes. [facility] Summary of Cassettes: Specimen Label Site [...] carcinoma. 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] ALL CBC WITH AUTO DIFFon Erythrocyte distribution width (RBC) [Ratio] 14.0 % 11.5 - 14.5 % [facility] Hematocrit (Bld) [Volume fraction] 42.9 % 41.0 - 52.0 % [facility] Hemoglobin (Bld) [Mass/Vol] 14.3 g/dL 13.5 - 17.5 g/dL [facility] Interpretation and review of laboratory results Abnormal [facility] MCH (RBC) [Entitic mass] 34.3 pg High 26.0 - 34.0 pg [facility] MCHC (RBC) [Mass/Vol] 33.3 g/dL 32.0 - 36.0 g/dL [facility] MCV (RBC) [Entitic vol] 103 fL High 80 - 100 fL [facility] NUCLEATED RBC 0.0 [facility] PLT 130 Low [facility] RBC 4.17 Low [facility] WBC 9.3 [facility] Original Ordering Provider: ORION LOWE [facility] Basic metabolic 2000 panelon 11-15-2023 Anion gap [Moles/Vol] 15 mmol/L Normal 10-20 [facility] Comment on above: Performed By: #### 2 4321-2 #### MONICA Ramirez ([id number]) [facility] ([facility]) [address] [place] [address] Calcium [Mass/Vol] 9.7 mg/dL Normal 8.6-10.6 [facility] Comment on above: Performed By: #### 2 4321-2 #### MONICA Ramirez ([id number]) [facility] ([facility]) [address] [place] [address] Chloride [Moles/Vol] 99 mmol/L Normal 98-107 [facility] Comment on above: Performed By: #### 2 4321-2 #### MONICA JENKINSER L ([id number]) [facility] ([facility]) [address] [place] [address] CO2 [Moles/Vol] 33 mmol/L High 21-32 [facility] Comment on above: Performed By: #### 2 4321-2 #### MONICA MALDONADO L ([id number]) [facility] ([facility]) [address] [place] [address] Creatinine [Mass/Vol] 1.57 mg/dL High 0.50-1.30 [facility] Comment on above: Performed By: #### 2 4321-2 #### MONICA Ramirez ([id number]) [facility] ([facility]) [address] [place] [address] Glomerular filtration rate/1.73 sq M.predicted 45 mL/min/1.73m*2 Low >60 [facility] Comment on above: Result Comment: Calc ulations of estimated GFR are performed using the 2020 CKD-EPI Study Refit equation without the race variable for the IDMS-Traceable creatinine methods. https://jasn.asnjournals.org/content//ASN.83055 36710 Performed By: #### 2 4321-2 #### MONICA MALDONADO L ([id number]) [facility] ([facility]) [address] [place] [address] Glucose [Mass/Vol] 39 mg/dL Critically low 74-99 [facility] Comment on above: Performed By: #### 2 4321-2 #### MONICA MALDONADO L ([id number]) [facility] ([facility]) [address] [place] [address] Potassium [Moles/Vol] 4.3 mmol/L Normal 3.5-5.3 [facility] Comment on above: Performed By: #### 2 4321-2 #### MONICA Ramirez ([id number]) [facility] ([facility]) [address] [place] [address] Sodium [Moles/Vol] 143 mmol/L Normal 136-145 [facility] Comment on above: Performed By: #### 2 4321-2 #### MONICA Ramirez ([id number]) [facility] ([facility]) [address] [place] [address]87[address] Urea nitrogen [Mass/Vol] 41 mg/dL High 6-23 [facility] Comment on above: Performed By: #### 2 4321-2 #### MONICA Ramirez ([id number]) [facility] ([facility]) [address] [place] [address] CBC panel Auto (Bld)on 11-14 Erythrocyte distribution width (RBC) [Ratio] 14.0 % Normal 11.5-14.5 [facility] Comment on above: Performed By: #### 5 8410-2 #### MONICA Ramirez ([id number]) [facility] ([facility]) [address] [place] [address] Hematocrit (Bld) [Volume fraction] 42.9 % Normal 41.0-52.0 [facility] Comment on above: Performed By: #### 5 8410-2 #### MONICA Ramirez ([id number]) [facility] ([facility]) [address] [place] [address] Hemoglobin (Bld) [Mass/Vol] 14.3 g/dL Normal 13.5-17.5 [facility] Comment on above: Performed By: #### 5 8410-2 #### MONICA Ramirez ([id number]) [facility] ([facility]) [address] [place] [address] MCH (RBC) [Entitic mass] 34.3 pg High 26.0-34.0 [facility] Comment on above: Performed By: #### 5 8410-2 #### MONICA Ramirez ([id number]) [facility] ([facility]) [address] [place] [address] MCHC (RBC) [Mass/Vol] 33.3 g/dL Normal 32.0-36.0 [facility] Comment on above: Performed By: #### 5 8410-2 #### MONICA Ramirez ([id number]) [facility] ([facility]) [address] [place] [address] MCV (RBC) [Entitic vol] 103 fL High 80-100 [facility] Comment on above: Performed By: #### 5 8410-2 #### MONICA Ramirez ([id number]) [facility] ([facility]) [address] [place] [address] 33241 Nucleated RBC/100 WBC (Bld) [Ratio] 0.0 /100 WBCs Normal 0.0-0.0 [facility] Comment on above: Performed By: #### 5 8410-2 #### MONICA Ramirez ([id number]) [facility] ([facility]) [address] [place] [address] Platelets (Bld) [#/Vol] 130 x10*3/uL Low 150-450 [facility] Comment on above: Performed By: #### 5 8410-2 #### MONICA Ramirez ([id number]) [facility] ([facility]) [address] [place] [address]391 RBC (Bld) [#/Vol] 4.17 x10*6/uL Low 4.50-5.90 [facility] Comment on above: Performed By: #### 5 8410-2 #### MONICA MALDONADO L ([id number]) [facility] ([facility]) [address] [place] [address]35 WBC (Bld) [#/Vol] 9.3 x10*3/uL Normal 4.4-11.3 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 and nonspecific ST-T changes [facility] Work Phone: CBC W Auto Differential [...] RBC (Bld) [#/Vol] 4.13 10*6/uL Low [facility] WBC (Bld) [#/Vol] 7.9 10*3/uL [facility] Comprehensive metabolic pane negro 10-12-2023 Albumin [Mass/Vol] 4.3 g/dL 3.8 - 4.8 g/dL [facility] ALP [Catalytic activity/Vol] 83 U/L [facility] ALT [Catalytic activity/Vol] 16 U/L [facility] AST [Catalytic activity/Vol] 18 U/L [facility] Bilirubin [Mass/Vol] 0.4 mg/dL 0.0 - 1 .2 mg/dL [facility] Calcium [Mass/Vol] 9.4 mg/dL 8.6 - 10. 2 mg/dL [facility] Chloride [Moles/Vol] 104 mmol/L 96 - 10 6 mmol/L [facility] CO2 [Moles/Vol] 29 mmol/L 20 - 29 mmol/L [facility] Creatinine [Mass/Vol] 1.46 mg/dL High 0.76 - 1.27 mg/dL [facility] GFR/1.73 sq M.predicted among non-blacks MDRD (S/P/Bld) [Vol rate/Area] 49 mL/min/{1.73_m2} Low 59 - PINF mL/min/1.7 3 [facility] Globulin (S) [Mass/Vol] 3.1 g/dL 1.5 - 4.5 g/dL [facility] Glucose [Mass/Vol] 72 mg/dL 70 - 99 mg/dL [facility] Potassium [Moles/Vol] 4.4 mmol/L 3.5 - 5.2 mmol/L [facility] Protein [Mass/Vol] 7.4 g/dL 6.0 - 8.5 g/dL [facility] Sodium [Moles/Vol] 146 mmol/L High 134 - 144 mmol/L [facility] Urea nitrogen [Mass/Vol] 34 mg/dL High 8 - 27 mg/dL [facility] Urea nitrogen/Creatinine [Mass ratio] 23 mg/mg 10 - 24 [facility] Lipid 1996 panelon 4 Cholesterol [Mass/Vol] 131 mg/dL 100 - 199 mg/dL [facility] Cholesterol in HDL [Mass/Vol] 51 mg/dL 39 - PINF mg/dL [facility] Cholesterol in LDL [Mass/Vol] 65 mg/dL 0 - 99 mg/dL [facility] Cholesterol in VLDL [Mass/Vol] 15 mg/dL 5 - 40 mg/dL [facility] Triglyceride [Mass/Vol] 76 mg/dL 0 - 149 mg/dL [facility] No Panel Informationon 10-11 Interpretation and review of laboratory results Abnormal [facility] Performed at: 01 - [address] [id number] [employer] Operator: Ed Aparicio PhD, Phone: [phone] [facility] PSAon 10-12-2023 Prostate specific Ag [Mass/Vol] 0.5 ng/mL 0.0 - 4.0 ng/mL [facility] Comment on above: [place] ECLIA methodol ogy. According to the [place] [employer], Serum PSA should decrease and [...] 6.2 mg/dL 3.8 - 8.4 mg/dL [facility] Comment on above: Therapeutic target f or gout patients: <6.0 Anisocytosis [Presence] in B lood by Light microscopyOrdered By: Celeste Alfonso on 05-02-2023 Anisocytosis Ql (Bld) Slight Normal [facility] Comment on above: Performed By: #### S CAN CBC, BMP ####[facility] [id number] Automated basophil %Ordered By: Celeste Alfonso on 05-02-2023 Basophils/100 WBC (Bld) 1.0 % Normal . [facility] Comment on above: Performed By: #### S CAN CBC, BMP ####[facility] [id number] [place] [id number] [facility] Automated basophil countOrde red By: Celeste Alfonso on 05-02-2023 Basophils (Bld) [#/Vol] 0.1 10*3/uL Normal 0.0-0.2 [facility] Comment on above: Result Comment: PERF ORMED BY:[address] [place] [phone] MEDICAL DIRECTORANNIKA NOGUEIRA M.D. Performed By: #### S CAN CBC, BMP ####[address] Automated blood monocyte cou ntOrdered By: Celeste Alfonso on 05-02-2023 Monocytes (Bld) [#/Vol] 0.4 10*3/uL Normal 0.0-0.8 [facility] Comment on above: Performed By: #### S CAN CBC, BMP ####[address] Automated eosinophil %Ordere d By: Celeste Alfonso on 05-02-2023 Eosinophils/100 WBC (Bld) 5.6 % Normal . [facility] Comment on above: Performed By: #### S CAN CBC, BMP ####[address] Automated eosinophil countOr dered By: Celeste Alfonso on 05-02-2023 Eosinophils (Bld) [#/Vol] 0.3 10*3/uL Normal 0.0-0.45 [facility] Comment on above: Performed By: #### S CAN CBC, BMP ####[address] Automated monocyte %Ordered By: Celeste Alfonso on 05-02-2023 Monocytes/100 WBC (Bld) 7.2 % Normal . [facility] Comment on above: Performed By: #### S CAN CBC, BMP ####[address] Automated neutrophil %Ordere d By: Celeste Kaden on 05-02-2023 Neutrophils/100 WBC (Bld) 55.3 % Normal . [facility] Comment on above: Performed By: #### S CAN CBC, BMP ####[address] [place] [address] [facility] Basic Metabolic Panelon 04-13 Creatinine Clr Calc Pharmacy 55.33 Normal [facility] Comment on above: Result Comment: PERF ORMED BY:[address] [place] [phone] MEDICAL DIRECTORANNIKA NOGUEIRA M.D. Performed By: #### S CAN CBC, BMP ####[address] [address] [facility] GFR/1.73 sq M.predicted MDRD (S/P/Bld) [Vol rate/Area] 56.581 mL/min/{1.73_m2} Normal [facility] Comment on above: Performed By: #### S CAN CBC, BMP ####[address] [address] [facility] Calcium [Mass/volume] in Ser um or PlasmaOrdered By: Celeste Alfonso on 05-02-2023 Calcium [Mass/Vol] 8.9 mg/dL Normal 8.6-10.3 [facility] Comment on above: Performed By: #### S CAN CBC, BMP ####[address] [address] [facility] Carbon dioxide, total [Moles /volume] in Serum or PlasmaOrdered By: Celeste Alfonso on 05-02-2023 CO2 [Moles/Vol] 28.1 mmol/L Normal 21.0-31.0 [facility] Comment on above: Performed By: #### S CAN CBC, BMP ####[address] [address] [place] Chloride [Moles/volume] in S sammy or PlasmaOrdered By: Celeste Alfonso on 05-02-2023 Chloride [Moles/Vol] 105 mmol/L Normal 98-107 [facility] Comment on above: Performed By: #### S CAN CBC, BMP ####[address] [address] [place] Creatinine [Mass/volume] in Serum or PlasmaOrdered By: Celeste Alfonso on 05-02-2023 Creatinine [Mass/Vol] 1.30 mg/dL Normal 0.70-1.30 [facility] Comment on above: Performed By: #### S CAN CBC, BMP ####[place] [address] Erythrocyte distribution wid th [Ratio] by Automated countOrdered By: Celeste Alfonso on 05-02-2023 Erythrocyte distribution width (RBC) [Ratio] 18.6 % High 12.0-14.8 [facility] Comment on above: Performed By: #### S CAN CBC, BMP ####[place] [address] [place] [id number] [facility] Erythrocytes [#/volume] in B lood by Automated countOrdered By: Celeste Alfonso on 05-02-2023 RBC (Bld) [#/Vol] 3.51 10*6/uL Low 3.90-5.60 [facility] Comment on above: Performed By: #### S CAN CBC, BMP ####[place] [address] [place] [id number] [facility] Glucose [Mass/volume] in Ser um or PlasmaOrdered By: Celeste Alfonso on 05-02-2023 Glucose [Mass/Vol] 187 mg/dL High 70-100 [facility] Comment on above: ADA recommended refe rence rangeRandom Glucose Reference Range is dependent on time and content of last meal. Glucose of more than 200 mg/dL in a nonstressed, ambulatory subject supports the diagnosis of Diabetes Mellitus. Result Comment: [place] Glucose Reference Range is dependent on time and content of last meal. Glucose of more than 200 mg/dL in a nonstressed, ambulatory subject supports the diagnosis of Diabetes Mellitus. ADA recommended reference range Performed By: #### S CAN CBC, BMP ####[place] [address] [place] [id number] [facility] Hematocrit [Volume Fraction] of Blood by Automated countOrdered By: Celeste Alfonso on 05-02-2023 Hematocrit (Bld) [Volume fraction] 34.1 % Low 38.8-50.0 [facility] Comment on above: Performed By: #### S CAN CBC, BMP ####[address] Hemoglobin [Mass/volume] in BloodOrdered By: Celeste Alfonso on 05-02-2023 Hemoglobin (Bld) [Mass/Vol] 11.2 g/dL Low 13.0-17.0 [facility] Comment on above: Performed By: #### S CAN CBC, BMP ####[place] [id number] [facility] Leukocytes [#/volume] correc michelle for nucleated erythrocytes in Blood by Automated counOrdered By: Celeste Alfonso on 05-02-2023 WBC corrected for nucl RBC Auto (Bld) [#/Vol] 5.9 10*3/uL 4.1-10.5 [facility] Leukocytes [#/volume] in Blo od by Automated countOrdered By: Celeste Alfonso on 05-02-2023 WBC (Bld) [#/Vol] 5.9 10*3/uL Normal 4.1-10.5 [facility] Comment on above: Performed By: #### S CAN CBC, BMP ####[address] Lymphocytes [#/volume] in Bl ood by Automated countOrdered By: Celeste Alfonso on 05-02-2023 Lymphocytes (Bld) [#/Vol] 1.8 10*3/uL Normal 1.00-4.8 [facility] Comment on above: Performed By: #### S CAN CBC, BMP ####[place] [id number] [facility] Lymphocytes/100 leukocytes i n Blood by Automated countOrdered By: Celeste Alfonso on 05-02-2023 Lymphocytes/100 WBC (Bld) 30.9 % Normal . [facility] Comment on above: Performed By: #### S CAN CBC, BMP ####[place] [id number] [facility] MCH [Entitic mass] by Automa michelle countOrdered By: Celeste Alfonso on 05-02-2023 MCH (RBC) [Entitic mass] 31.9 pg Normal 27.5-35.2 [facility] Comment on above: Performed By: #### S CAN CBC, BMP ####[facility] [id number] MCHC Auto (RBC) [Mass/Vol]Or dered By: Celeste Alfonso on 05-02-2023 MCHC (RBC) [Mass/Vol] 32.8 g/dL 32.5-35.6 [facility] MCV [Entitic volume] by Auto mated countOrdered By: Celeste Alfonso on 05-02-2023 MCV (RBC) [Entitic vol] 97.2 fL Normal 83.5-101 [facility] Comment on above: Performed By: #### S CAN CBC, BMP ####[place] [address] Microcytes LM Ql (Bld)Ordere d By: Celeste Alfonso on 05-02-2023 Microcytes Ql (Bld) Slight [facility] Neutrophils [#/volume] in Bl ood by Automated countOrdered By: Celeste Alfonso on 05-02-2023 Neutrophils (Bld) [#/Vol] 3.3 10*3/uL Normal 1.8-7.7 [facility] Comment on above: Performed By: #### S CAN CBC, BMP ####[facility] [id number] [place] [address] No Panel InformationOrdered By: Celeste Alfonso on 05-02-2023 Estimated GFR (CKD-EPI) 56.581 mL/Min [facility] Creatinine Clearance (Chem 55.33 [facility] Nucleated erythrocytes [Pres ence] in Blood by Automated countOrdered By: Celeste Alfonso on 05-02-2023 Nucleated RBC Auto Ql (Bld) 0.4 /100{WBC} 0-0.5 [facility] Ovalocyte detectionOrdered B y: Celeste Alfonso on 03-19-2024 Ovalocytes LM Ql (Bld) Slight [facility] Platelet adequacy [Presence] in Blood by Light microscopyOrdered By: Celeste Alfonso on 05-02-2023 Platelets LM Ql (Bld) Normal Normal [facility] Platelet mean volume [Entiti c volume] in Blood by Automated countOrdered By: Celeste Alfonso on 05-02-2023 Platelet mean volume (Bld) [Entitic vol] 10.6 fL High 6.6-10.1 [facility] Comment on above: Performed By: #### S CAN CBC, BMP ####[facility] [id number] [address] Platelet morphology finding [Identifier] in BloodOrdered By: Celeste Alfonso on 05-02-2023 Platelet morphology finding Nom (Bld) Normal Normal [facility] Platelets [#/volume] in Bloo d by Automated countOrdered By: Celetse Alfonso on 05-02-2023 Platelets (Bld) [#/Vol] 166 10*3/uL Normal 150-450 [facility] Comment on above: Performed By: #### S CAN CBC, BMP ####[address] Poikilocytosis [Presence] in Blood by Light microscopyOrdered By: Celeste Alfonso on 05-02-2023 Poikilocytosis LM Ql (Bld) Slight [facility] Potassium [Moles/volume] in Serum or PlasmaOrdered By: Celeste Alfonso on 05-02-2023 Potassium [Moles/Vol] 4.6 mmol/L Normal 3.5-5.1 [facility] Comment on above: Performed By: #### S CAN CBC, BMP ####[address] RBC morphologyOrdered By: Jeremías Alfonso on 05-02-2023 RBC morphology finding Nom (Bld) N/A [facility] Scan and CBCon 05-02-2023 Mean Corpuscular HGB Conc 32.8 g/dL Normal 32.5-35.6 [facility] Comment on above: Performed By: #### S CAN CBC, BMP ####[address] [address] [facility] Microcytosis Slight Normal [facility] Comment on above: Performed By: #### S CAN CBC, BMP ####[address] [address] [facility] NRBC% 0.4 /100{WBC} Normal 0-0.5 [facility] Comment on above: Performed By: #### S CAN CBC, BMP ####[address] [address] [facility] Ovalocytes Slight Normal [facility] Comment on above: Performed By: #### S CAN CBC, BMP ####[address] [address] [facility] Platelet Estimate Normal Normal Normal [facility] Comment on above: Performed By: #### S CAN CBC, BMP ####[address] Platelet Morphology Normal Normal Normal [facility] Comment on above: Result Comment: PERF ORMED BY:[address] [place], [place] [id number] MEDICAL JADEN NOGUEIRA M.D. Performed By: #### S CAN CBC, BMP ####[address] [address] [facility] Poikilocytosis Slight Normal [facility] Comment on above: Performed By: #### S CAN CBC, BMP ####[place] [id number] [facility] Serum or plasma anion gap de terminationOrdered By: Celeste Alfonso on 05-02-2023 Anion gap [Moles/Vol] 11.5 mmol/L Normal 6.0-15.0 [facility] Comment on above: Performed By: #### S CAN CBC, BMP ####[address] [address] [facility] Sodium [Moles/volume] in Ser um or PlasmaOrdered By: Celeste Alfonso on 05-02-2023 Sodium [Moles/Vol] 140 mmol/L Normal 136-145 [facility] Comment on above: Performed By: #### S CAN CBC, BMP ####[facility] [place] [address] [facility] Urea nitrogen [Mass/volume] in Serum or PlasmaOrdered By: Celeste Alfonso on 05-02-2023 Urea nitrogen [Mass/Vol] 48 mg/dL High 7-25 [facility] Comment on above: Performed By: #### S CAN CBC, BMP ####[facility] [place] [address] [facility] Activated partial thrombopla stin time (aPTT) in platelet poor plasma by coagulation aOrdered By: Mariano Dennis on 04-28-2023 aPTT Coag (PPP) [Time] 30.8 s 25.1-36.5 [facility] Comment on above: A hematocrit value g reater than 55% may lead to inaccurate results in coagulation testing. Patients having hematocrit values >55% require a special collection tube for coagulation studies. Please contact the laboratory at [phone] for redraw instructions. Alanine aminotransferase [En zymatic activity/volume] in Serum or PlasmaOrdered By: Mariano Dennis on 04-28-2023 ALT [Catalytic activity/Vol] 10 U/L Normal 7-52 [facility] Comment on above: Performed By: #### M G, CBC, PHOS, CMP ####[place] [address] [place] [address] [place] Albumin [Mass/volume] in Ser um or Plasma by Bromocresol green (BCG) dye binding methoOrdered By: Mariano Dennis on 04-28-2023 Albumin BCG dye [Mass/Vol] 3.8 g/dL 3.5-5.7 [facility] Alkaline phosphatase [Enzyma tic activity/volume] in Serum or PlasmaOrdered By: Mariano Dennis on 04-28-2023 ALP [Catalytic activity/Vol] 77 U/L Normal 34-104 [facility] Comment on above: Performed By: #### M G, CBC, PHOS, CMP ####[address] [address] [facility] Aspartate aminotransferase [ Enzymatic activity/volume] in Serum or PlasmaOrdered By: Mariano Dennis on 04-28-2023 AST [Catalytic activity/Vol] 15 U/L Normal 13-39 [facility] Comment on above: Performed By: #### M G, CBC, PHOS, CMP ####[address] Bilirubin.total [Mass/volume ] in Serum or PlasmaOrdered By: Mariano Dennis on 04-28-2023 Bilirubin [Mass/Vol] 0.7 mg/dL Normal 0.3-1.0 [facility] Comment on above: Performed By: #### M G, CBC, PHOS, CMP ####[place] [id number] [facility] Coagulation Profileon 2023 aPTT Coag (Bld) [Time] 30.8 s Normal 25.1-36.5 Th e [facility] Comment on above: Result Comment: A he matocrit value greater than 55% may lead to inaccurate results in coagulation testing. Patients having hematocrit values >55% require a special collection tube for coagulation studies. Please contact the laboratory at [phone] for redraw instructions.PERFORMED BY:[place] [address] [place], [place] [id number] MEDICAL DIRECTORANNIKA NOGUEIRA M.D. Performed By: #### P P ####[place] [id number] [facility] Complete Blood Count Auto Di ffon 04-28-2023 Basophils (Bld) [#/Vol] 0.0 10*3/uL Normal 0.0-0.2 [facility] Comment on above: Result Comment: PERF ORMED BY:[place] [address] [place], [place] [phone] MEDICAL DIRECTORANNIKA NOGUEIRA M.D. Performed By: #### M G, CBC, PHOS, CMP ####[place] [id number] [facility] Basophils/100 WBC (Bld) 0.4 % Normal . [facility] Comment on above: Performed By: #### M G, CBC, PHOS, CMP ####[address] Eosinophils (Bld) [#/Vol] 0.5 10*3/uL High 0.0-0.45 [facility] Comment on above: Performed By: #### M G, CBC, PHOS, CMP ####[address] Eosinophils/100 WBC (Bld) 7.4 % Normal . [facility] Comment on above: Performed By: #### M G, CBC, PHOS, CMP ####[address] Erythrocyte distribution width (RBC) [Ratio] 18.7 % High 12.0-14.8 [facility] Comment on above: Performed By: #### M G, CBC, PHOS, CMP ####[address] Hematocrit (Bld) [Volume fraction] 35.6 % Low 38.8-50.0 [facility] Comment on above: Performed By: #### M G, CBC, PHOS, CMP ####[address] Hemoglobin (Bld) [Mass/Vol] 11.8 g/dL Low 13.0-17.0 [facility] Comment on above: Performed By: #### M G, CBC, PHOS, CMP ####[address] Lymphocytes (Bld) [#/Vol] 2.2 10*3/uL Normal 1.00-4.8 [facility] Comment on above: Performed By: #### M G, CBC, PHOS, CMP ####[address] Lymphocytes/100 WBC (Bld) 31.0 % Normal . [facility] Comment on above: Performed By: #### M G, CBC, PHOS, CMP ####[address] MCH (RBC) [Entitic mass] 32.0 pg Normal 27.5-35.2 [facility] Comment on above: Performed By: #### M G, CBC, PHOS, CMP ####[address] MCV (RBC) [Entitic vol] 96.8 fL Normal 83.5-101 [facility] Comment on above: Performed By: #### M G, CBC, PHOS, CMP ####[address] Mean Corpuscular HGB Conc 33.1 g/dL Normal 32.5-35.6 [facility] Comment on above: Performed By: #### M G, CBC, PHOS, CMP ####[address] Monocytes (Bld) [#/Vol] 1.0 10*3/uL High 0.0-0.8 [facility] Comment on above: Performed By: #### M G, CBC, PHOS, CMP ####[address] Monocytes/100 WBC (Bld) 13.8 % Normal . [facility] Comment on above: Performed By: #### M G, CBC, PHOS, CMP ####[address] Neutrophils (Bld) [#/Vol] 3.4 10*3/uL Normal 1.8-7.7 [facility] Comment on above: Performed By: #### M G, CBC, PHOS, CMP ####[address] Neutrophils/100 WBC (Bld) 47.4 % Normal . [facility] Comment on above: Performed By: #### M G, CBC, PHOS, CMP ####[place] [id number] [place] NRBC% 0.1 /100{WBC} Normal 0-0.5 [facility] Comment on above: Performed By: #### M G, CBC, PHOS, CMP ####[address] Platelet mean volume (Bld) [Entitic vol] 10.3 fL High 6.6-10.1 [facility] Comment on above: Performed By: #### M G, CBC, PHOS, CMP ####[address] Platelets (Bld) [#/Vol] 147 10*3/uL Low 150-450 [facility] Comment on above: Performed By: #### M G, CBC, PHOS, CMP ####[address] RBC (Bld) [#/Vol] 3.68 10*6/uL Low 3.90-5.60 [facility] Comment on above: Performed By: #### Yen G, CBC, PHOS, CMP ####[address] WBC (Bld) [#/Vol] 7.2 10*3/uL Normal 4.1-10.5 [facility] Comment on above: Performed By: #### Yen G, CBC, PHOS, CMP ####[address] Comprehensive Metabolic Pane negro 04-28-2023 Albumin [Mass/Vol] 3.8 g/dL Normal 3.5-5.7 [facility] Comment on above: Performed By: #### M G, CBC, PHOS, CMP ####[address] Anion gap [Moles/Vol] 12.4 mmol/L Normal 6.0-15.0 Th e [facility]ending [facility] Comment on above: Performed By: #### M G, CBC, PHOS, CMP ####[address] Calcium [Mass/Vol] 8.8 mg/dL Normal 8.6-10.3 [facility] Comment on above: Performed By: #### M G, CBC, PHOS, CMP ####[address] Chloride [Moles/Vol] 103 mmol/L Normal 98-107 [facility] Comment on above: Performed By: #### M G, CBC, PHOS, CMP ####[address] CO2 [Moles/Vol] 27.5 mmol/L Normal 21.0-31.0 [facility] Comment on above: Performed By: #### M G, CBC, PHOS, CMP ####[address] Creatinine [Mass/Vol] 1.34 mg/dL High 0.70-1.30 [facility] Comment on above: Performed By: #### M G, CBC, PHOS, CMP ####[address] Creatinine Clr Calc Pharmacy 53.68 Normal [facility] Comment on above: Performed By: #### M G, CBC, PHOS, CMP ####[address] GFR/1.73 sq M.predicted MDRD (S/P/Bld) [Vol rate/Area] 54.560 mL/min/{1.73_m2} Normal [facility] Comment on above: Performed By: #### M G, CBC, PHOS, CMP ####[place] [id number] [facility] Glucose [Mass/Vol] 104 mg/dL High 70-100 [facility] Comment on above: Result Comment: [place] Glucose Reference Range is dependent on time and content of last meal. Glucose of more than 200 mg/dL in a nonstressed, ambulatory subject supports the diagnosis of Diabetes Mellitus. ADA recommended reference range Performed By: #### M G, CBC, PHOS, CMP ####[place] [address] [place] [id number] [facility] Potassium [Moles/Vol] 3.9 mmol/L Normal 3.5-5.1 [facility] Comment on above: Performed By: #### M G, CBC, PHOS, CMP ####[place] [address] Sodium [Moles/Vol] 139 mmol/L Normal 136-145 [facility] Comment on above: Performed By: #### M G, CBC, PHOS, CMP ####[place] [address] Urea nitrogen [Mass/Vol] 20 mg/dL Normal 7-25 [facility] Comment on above: Performed By: #### M G, CBC, PHOS, CMP ####[place] [address] INR in Platelet poor plasma by Coagulation assayOrdered By: Mariano Dennis on 04-28-2023 INR Coag (PPP) [Relative time] 1.2 {INR} Normal [facility] Comment on above: INR Therapeutic Rang [...] - 4.5 Performed By: #### P P ####[place] [id number] [facility] Magnesium [Mass/volume] in S sammy or PlasmaOrdered By: Mariano Dennis on 04-28-2023 Magnesium [Mass/Vol] 1.8 mg/dL Low 1.9-2.7 [facility] Comment on above: Result Comment: PERF ORMED BY:[address] [place], [place] [id number] MEDICAL DIRECTORANNIKA NOGUEIRA M.D. Performed By: #### M G, CBC, PHOS, CMP ####[address] [address] [facility] Phosphate [Mass/volume] in S sammy or PlasmaOrdered By: Mariano Dennis on 04-28-2023 Phosphate [Mass/Vol] 3.4 mg/dL Normal 2.5-4.5 [facility] Comment on above: Performed By: #### M G, CBC, PHOS, CMP ####[address] [address] [facility] Protein [Mass/volume] in Ser um or PlasmaOrdered By: Mariano Dennis on 04-28-2023 Protein [Mass/Vol] 7.3 g/dL Normal 6.4-8.9 [facility] Comment on above: Performed By: #### M G, CBC, PHOS, CMP ####[address] [address] [facility] Prothrombin time (PT)Ordered By: Mariano Dennis on 04-28-2023 PT Coag (PPP) [Time] 13.5 s High 9.0-12.9 [facility] Comment on above: A hematocrit value g reater than 55% may lead to inaccurate results in coagulation testing. Patients having hematocrit values >55% require a special collection tube for coagulation studies. Please contact the laboratory at [phone] for redraw instructions. Result Comment: A he matocrit value greater than 55% may lead to inaccurate results in coagulation testing. Patients having hematocrit values >55% require a special collection tube for coagulation studies. Please contact the laboratory at [phone] for redraw instructions. Performed By: #### P P ####[address] [address] [facility] Serum globulin measurement b y calculation (mass/volume)Ordered By: Mariano Dennis on 04-28-2023 Globulin (S) [Mass/Vol] 3.5 g/dL Normal [facility] Comment on above: Performed By: #### M G, CBC, PHOS, CMP ####[address] Serum or plasma albumin/glob ulin mass ratioOrdered By: Mariano Dennis on 04-28-2023 Albumin/Globulin [Mass ratio] 1.1 {ratio} Normal [facility] Comment on above: Performed By: #### M G, CBC, PHOS, CMP ####[address] Alanine aminotransferase [En zymatic activity/volume] in Serum or PlasmaOrdered By: Afua Mae on 04-27-2023 ALT [Catalytic activity/Vol] 12 U/L Normal 7-52 [facility] Comment on above: Performed By: #### C MP ####[address] Albumin [Mass/volume] in Ser um or Plasma by Bromocresol green (BCG) dye binding methoOrdered By: Afua Mae on 04-27-2023 Albumin BCG dye [Mass/Vol] 4.0 g/dL 3.5-5.7 [facility] Alkaline phosphatase [Enzyma tic activity/volume] in Serum or PlasmaOrdered By: Afua Mae on 04-27-2023 ALP [Catalytic activity/Vol] 70 U/L Normal 34-104 [facility] Comment on above: Performed By: #### C MP ####[address] Anisocytosis [Presence] in B lood by Light microscopyOrdered By: Afua Mae on 04-27-2023 Anisocytosis Ql (Bld) Slight Normal [facility] Comment on above: Performed By: #### S CAN CBC ####[address] Aspartate aminotransferase [ Enzymatic activity/volume] in Serum or PlasmaOrdered By: Afua Mae on 03-14-2024 AST [Catalytic activity/Vol] 21 U/L Normal 13-39 [facility] Comment on above: Performed By: #### C MP ####[address] Automated basophil %Ordered By: Afua Mae on 04-27-2023 Basophils/100 WBC (Bld) 0.6 % Normal . [facility] Comment on above: Performed By: #### S CAN CBC ####[address] Automated basophil countOrde red By: Afua Mae on 04-27-2023 Basophils (Bld) [#/Vol] 0.1 10*3/uL Normal 0.0-0.2 [facility] Comment on above: Performed By: #### S CAN CBC ####[address] Automated blood monocyte cou ntOrdered By: Afua Mae on 04-27-2023 Monocytes (Bld) [#/Vol] 0.9 10*3/uL High 0.0-0.8 [facility] Comment on above: Performed By: #### S CAN CBC ####[address] Automated eosinophil %Ordere d By: Afua Mae on 04-27-2023 Eosinophils/100 WBC (Bld) 5.5 % Normal . [facility] Comment on above: Performed By: #### S CAN CBC ####[address] Automated eosinophil countOr dered By: Afua Mae on 04-27-2023 Eosinophils (Bld) [#/Vol] 0.4 10*3/uL Normal 0.0-0.45 [facility] Comment on above: Performed By: #### S CAN CBC ####[address] Automated erythrocytes count in urine sediment (number/area)Ordered By: Afua Mae on 04-27-2023 RBC Auto (Urine sed) [#/Area] 0-1 [HPF] 0-4 [facility] Automated leukocytes count i n urine sediment (number/area)Ordered By: Afua Mae on 04-27-2023 WBC Auto (Urine sed) [#/Area] 1-2 [HPF] 0-4 [facility] Automated monocyte %Ordered By: Afua Mae on 04-27-2023 Monocytes/100 WBC (Bld) 10.9 % Normal . [facility] Comment on above: Performed By: #### S CAN CBC ####[address] Automated neutrophil %Ordere d By: Afua Mae on 04-27-2023 Neutrophils/100 WBC (Bld) 62.4 % Normal . [facility] Comment on above: Performed By: #### S CAN CBC ####[address] Automated urine color determ inationOrdered By: Afua Mae on 04-27-2023 Color (U) Yellow Normal Yellow [facility] Comment on above: Order Comment: Name Collection Type:: Clean-Voided Midstream Performed By: #### A DDONUAPLUS ####[address] Bilirubin Test strip Ql (U)O rdered By: Afua Mae on 04-27-2023 Bilirubin Ql (U) Negative Negative [facility] Bilirubin.total [Mass/volume ] in Serum or PlasmaOrdered By: Afua Mae on 04-27-2023 Bilirubin [Mass/Vol] 0.8 mg/dL Normal 0.3-1.0 [facility] Comment on above: Performed By: #### C MP ####[address] Calcium [Mass/volume] in Ser um or PlasmaOrdered By: Afua Mae on 04-27-2023 Calcium [Mass/Vol] 9.3 mg/dL Normal 8.6-10.3 [facility] Comment on above: Performed By: #### C MP ####[address] [address] [facility] Carbon dioxide, total [Moles /volume] in Serum or PlasmaOrdered By: Afua Mae on 04-27-2023 CO2 [Moles/Vol] 29.4 mmol/L Normal 21.0-31.0 [facility] Comment on above: Performed By: #### C MP ####[place] [id number] [facility] Chloride [Moles/volume] in S sammy or PlasmaOrdered By: Afua Mae on 04-27-2023 Chloride [Moles/Vol] 103 mmol/L Normal 98-107 [facility] Comment on above: Performed By: #### C MP ####[address] [address] [facility] Comprehensive Metabolic Pane negro 04-27-2023 Albumin [Mass/Vol] 4.0 g/dL Normal 3.5-5.7 [facility] Comment on above: Performed By: #### C MP ####[address] [address] [facility] Anion Gap Normal 6.0-15.0 [facility] Comment on above: Result Comment: Spec imen hemolyzed, redraw requested Performed By: #### C MP ####[address] [address] [facility] Creatinine Clr Calc Pharmacy 59.44 Normal [facility] Comment on above: Result Comment: PERF ORMED BY:[address] [place], [place] [phone] MEDICAL JADEN NOGUEIRA M.D. Performed By: #### C MP ####[address] [address] [facility] GFR/1.73 sq M.predicted MDRD (S/P/Bld) [Vol rate/Area] mL/min/{1.73_m2} Normal [facility] Comment on above: Performed By: #### C MP ####[address] [place] [address] [facility] Potassium Normal 3.5-5.1 [facility] Comment on above: Result Comment: Spec imen hemolyzed, redraw requested Performed By: #### C MP ####[place] [id number] [facility] Creatinine [Mass/volume] in Serum or PlasmaOrdered By: Afua Mae on 04-27-2023 Creatinine [Mass/Vol] 1.21 mg/dL Normal 0.70-1.30 [facility] Comment on above: Performed By: #### C MP ####[address] [address] [facility] Dipstick and Microscopicon 0 04-27-2023 Appearance (U) Clear Normal Clear [facility] Comment on above: Order Comment: Name Collection Type:: Clean-Voided Midstream Performed By: #### A DDONUAPLUS ####[place] [id number] [facility] Bacteria,Urine None Seen Normal None Seen [facility] Comment on above: Order Comment: Name Collection Type:: Clean-Voided Midstream Performed By: #### A DDONUAPLUS ####[address] [address] [facility] Bilirubin,Urine Negative Normal Negative [facility] Comment on above: Order Comment: Name Collection Type:: Clean-Voided Midstream Performed By: #### A DDONUAPLUS ####[place] [id number] [facility] Glucose Ql (U) Normal Normal Normal [facility] Comment on above: Order Comment: Name Collection Type:: Clean-Voided Midstream Performed By: #### A DDONUAPLUS ####[address] [address] [facility] Hyaline Casts,Urine 0-8 Normal 0-8 [facility] Comment on above: Order Comment: Name Collection Type:: Clean-Voided Midstream Result Comment: PERF ORMED BY:[address] [place], [place] [phone] MEDICAL DIRECTORANNIKA NOGUEIRA M.D. Performed By: #### A DDONUAPLUS ####[place] [id number] [facility] Ketones Ql (U) Negative Normal Negative [facility] Comment on above: Order Comment: Name Collection Type:: Clean-Voided Midstream Performed By: #### A DDONUAPLUS ####[place] [id number] [facility] Leukocyte esterase Test strip Ql (U) Negative Normal Negative [facility] Comment on above: Order Comment: Name Collection Type:: Clean-Voided Midstream Performed By: #### A DDONUAPLUS ####[place] [id number] [facility] Nitrite,Urine Negative Normal Negative [facility] Comment on above: Order Comment: Name Collection Type:: Clean-Voided Midstream Performed By: #### A DDONUAPLUS ####[place] [id number] [facility] Occult Blood,Urine Negative Normal Negative [facility] Comment on above: Order Comment: Name Collection Type:: Clean-Voided Midstream Result Comment: PERF ORMED BY:[address] [place], [place] [phone] MEDICAL JADEN NOGUEIRA M.D. Performed By: #### A DDONUAPLUS ####[place] [id number] [facility] RBC LM.HPF (Urine sed) [#/Area] 0 /[HPF] Normal 0-4 [facility] Comment on above: Order Comment: Name Collection Type:: Clean-Voided Midstream Performed By: #### A DDONUAPLUS ####[place] [id number] [facility] Specificy [place],Urine 1.020 Normal 1.001-1.03 0 [facility] Comment on above: Order Comment: Name Collection Type:: Clean-Voided Midstream Performed By: #### A DDONUAPLUS ####[address] [address] [facility] Squamous Epithelial Cell,Urine 0-1 Normal 0-2 [facility] Comment on above: Order Comment: Name Collection Type:: Clean-Voided Midstream Performed By: #### A DDONUAPLUS ####[address] [address] [facility] Urobilinogen,Urine Normal Normal Normal [facility] Comment on above: Order Comment: Name Collection Type:: Clean-Voided Midstream Performed By: #### A DDONUAPLUS ####[address] [address] [facility] WBC,Urine 1-2 Normal 0-4 [facility] Comment on above: Order Comment: Name Collection Type:: Clean-Voided Midstream Performed By: #### A DDONUAPLUS ####[address] [address] [facility] ECG 12 lead ECGon 04-27-2023 ECG 12 lead ECG Normal [facility] Erythrocyte distribution wid th [Ratio] by Automated countOrdered By: Afua Mae on 04-27-2023 Erythrocyte distribution width (RBC) [Ratio] 18.7 % High 12.0-14.8 [facility] Comment on above: Performed By: #### S CAN CBC ####[place] [id number] [facility] Erythrocytes [#/volume] in B lood by Automated countOrdered By: Afua Mae on 04-27-2023 RBC (Bld) [#/Vol] 4.02 10*6/uL Normal 3.90-5.60 [facility] Comment on above: Performed By: #### S CAN CBC ####[place] [id number] [facility] Glucose [Mass/volume] in Ser um or PlasmaOrdered By: Afua Mae on 04-27-2023 Glucose [Mass/Vol] 145 mg/dL High 70-100 [facility] Comment on above: ADA recommended refe rence rangeRandom Glucose Reference Range is dependent on time and content of last meal. Glucose of more than 200 mg/dL in a nonstressed, ambulatory subject supports the diagnosis of Diabetes Mellitus. Result Comment: [place] Glucose Reference Range is dependent on time and content of last meal. Glucose of more than 200 mg/dL in a nonstressed, ambulatory subject supports the diagnosis of Diabetes Mellitus. ADA recommended reference range Performed By: #### C MP ####[address] Hematocrit [Volume Fraction] of Blood by Automated countOrdered By: Afua Mae on 04-27-2023 Hematocrit (Bld) [Volume fraction] 39.0 % Normal 38.8-50.0 [facility] Comment on above: Performed By: #### S CAN CBC ####[address] Hemoglobin [Mass/volume] in BloodOrdered By: Afua Mae on 04-27-2023 Hemoglobin (Bld) [Mass/Vol] 12.7 g/dL Low 13.0-17.0 [facility] Comment on above: Performed By: #### S CAN CBC ####[address] Ketones Auto test strip (U) [Mass/Vol]Ordered By: Afua Mae on 04-27-2023 Ketones (U) [Mass/Vol] Negative Negative [facility] Laboratory - UrinalysisOrder ed By: Afua Mae on 04-27-2023 Hyaline casts LM Ql (Urine sed) 0-8 [LPF] 0-8 [facility] Leukocytes [#/volume] correc michelle for nucleated erythrocytes in Blood by Automated counOrdered By: Afua Mae on 04-27-2023 WBC corrected for nucl RBC Auto (Bld) [#/Vol] 8.2 10*3/uL 4.1-10.5 [facility] Leukocytes [#/volume] in Blo od by Automated countOrdered By: Afua Mae on 04-27-2023 WBC (Bld) [#/Vol] 8.2 10*3/uL Normal 4.1-10.5 [facility] Comment on above: Performed By: #### S CAN CBC ####[address] Lymphocytes [#/volume] in Bl ood by Automated countOrdered By: Afua Mae on 04-27-2023 Lymphocytes (Bld) [#/Vol] 1.7 10*3/uL Normal 1.00-4.8 [facility] Comment on above: Performed By: #### S CAN CBC ####[address] Lymphocytes/100 leukocytes i n Blood by Automated countOrdered By: Afua Mae on 04-27-2023 Lymphocytes/100 WBC (Bld) 20.6 % Normal . [facility] Comment on above: Performed By: #### S CAN CBC ####[address] MCH [Entitic mass] by Automa michelle countOrdered By: Afua Mae on 04-27-2023 MCH (RBC) [Entitic mass] 31.6 pg Normal 27.5-35.2 [facility] Comment on above: Performed By: #### S CAN CBC ####[address] MCHC Auto (RBC) [Mass/Vol]Or dered By: Afua Mae on 04-27-2023 MCHC (RBC) [Mass/Vol] 32.6 g/dL 32.5-35.6 [facility] MCV [Entitic volume] by Auto mated countOrdered By: Afua Mae on 04-27-2023 MCV (RBC) [Entitic vol] 97.0 fL Normal 83.5-101 [facility] Comment on above: Performed By: #### S CAN CBC ####[address] Monocyte distribution width [Entitic volume] in Blood by AutomatedOrdered By: Afua Mae on 04-27-2023 Monocyte distribution width Auto (Bld) [Entitic vol] 22.60 % 0.00-20.00 [facility] Comment on above: For adults in ED, MD W > 20.0 may be associated with a higher risk of sepsis during the first 12 hrs of hospital admission Neutrophils [#/volume] in Bl ood by Automated countOrdered By: Afua Mae on 04-27-2023 Neutrophils (Bld) [#/Vol] 5.1 10*3/uL Normal 1.8-7.7 [facility] Comment on above: Performed By: #### S CAN CBC ####[facility] [id number] [place] [id number] [facility] Nitrite Test strip Ql (U)Ord ered By: Afua Mae on 04-27-2023 Nitrite Ql (U) Negative Negative [facility] No Panel InformationOrdered By: Afua Mae on 04-27-2023 Estimated GFR (CKD-EPI) > 60.0 mL/Min [facility] Creatinine Clearance (Chem 59.44 [facility] Nucleated erythrocytes [Pres ence] in Blood by Automated countOrdered By: Afua Mae on 04-27-2023 Nucleated RBC Auto Ql (Bld) 0.1 /100{WBC} 0-0.5 [facility] Platelet adequacy [Presence] in Blood by Light microscopyOrdered By: Afua Mae on 04-27-2023 Platelets LM Ql (Bld) Normal Normal [facility] Platelet mean volume [Entiti c volume] in Blood by Automated countOrdered By: Afua Mae on 04-27-2023 Platelet mean volume (Bld) [Entitic vol] 10.0 fL Normal 6.6-10.1 [facility] Comment on above: Performed By: #### S CAN CBC ####[facility] [id number] [place] [id number] [facility] Platelet morphology finding [Identifier] in BloodOrdered By: Afua Mae on 04-27-2023 Platelet morphology finding Nom (Bld) Normal Normal [facility] Platelets [#/volume] in Bloo d by Automated countOrdered By: Afua Mae on 04-27-2023 Platelets (Bld) [#/Vol] 157 10*3/uL Normal 150-450 [facility] Comment on above: Performed By: #### S CAN CBC ####[place] [id number] [facility] Potassium [Moles/volume] in Serum or PlasmaOrdered By: Afua Mae on 04-27-2023 Potassium [Moles/Vol] See comment 3.5-5.1 [facility] Comment on above: Specimen hemolyzed, redraw requested Protein [Mass/volume] in Ser um or PlasmaOrdered By: Afua Mae on 04-27-2023 Protein [Mass/Vol] 8.1 g/dL Normal 6.4-8.9 [facility] Comment on above: Performed By: #### C MP ####[address] RBC morphologyOrdered By: Itz Mae on 04-27-2023 RBC morphology finding Nom (Bld) N/A [facility] Redraw Potassiumon Potassium [Moles/Vol] 3.8 mmol/L Normal 3.5-5.1 [facility] Comment on above: Order Comment: REDRA W STILL HEMOLYZED, REDRAW REQUESTED Result Comment: PERF ORMED BY:[address] [place], [place] [phone] MEDICAL DIRECTORANNIKA NOGUEIRA M.D. Performed By: #### R EDRAW K ####[place] [id number] [facility] Scan and CBCon 04-27-2023 Mean Corpuscular HGB Conc 32.6 g/dL Normal 32.5-35.6 [facility] Comment on above: Performed By: #### S CAN CBC ####[place] [id number] [facility] Monocytes/100 WBC (Bld) 22.60 % High 0.00-20.00 [facility] Comment on above: Result Comment: For adults in ED, MDW > 20.0 may be associated with a higher risk of sepsis during the first 12 hrs of hospital admission Performed By: #### S CAN CBC ####[address] NRBC% 0.1 /100{WBC} Normal 0-0.5 [facility] Comment on above: Performed By: #### S CAN CBC ####[place] [id number] [facility] Platelet Estimate Normal Normal Normal [facility] Comment on above: Performed By: #### S CAN CBC ####[place] [id number] [facility] Platelet Morphology Normal Normal Normal [facility] Comment on above: Result Comment: PERF ORMED BY:[address] [place] [phone] MEDICAL DIRECTORANNIKA NOGUEIRA M.D. Performed By: #### S CAN CBC ####[address] Serum globulin measurement b y calculation (mass/volume)Ordered By: Afua Mae on 04-27-2023 Globulin (S) [Mass/Vol] 4.1 g/dL [facility] Comment on above: Performed By: #### C MP ####[address] Serum or plasma albumin/glob ulin mass ratioOrdered By: Afua Mae on 04-27-2023 Albumin/Globulin [Mass ratio] 1.0 {ratio} [facility] Comment on above: Performed By: #### C MP ####[address] Serum or plasma anion gap de terminationOrdered By: Afua Mae on 04-27-2023 Anion gap [Moles/Vol] See comment 6.0-15.0 [facility] Comment on above: Specimen hemolyzed, redraw requested Sodium [Moles/volume] in Ser um or PlasmaOrdered By: Afua Mae on 04-27-2023 Sodium [Moles/Vol] 140 mmol/L Normal 136-145 [facility] Comment on above: Performed By: #### C MP ####[place] [address] [place] [id number] [facility] Specific gravity Auto test s trip (U) [Rel density]Ordered By: Afua Mae on 04-27-2023 Specific gravity (U) [Rel density] 1.020 1.001-1.03 0 [facility] Squamous epithelial cells de tection in urine sediment by light microscopyOrdered By: Afua Mae on 04-27-2023 Epithelial cells.squamous LM Ql (Urine sed) 0-1 [HPF] 0-2 [facility] Urea nitrogen [Mass/volume] in Serum or PlasmaOrdered By: Afua Mae on 04-27-2023 Urea nitrogen [Mass/Vol] 18 mg/dL Normal 7-25 [facility] Comment on above: Performed By: #### C MP ####[address] Urine bacteria detection by automated methodOrdered By: Afua Mae on 04-27-2023 Bacteria Auto Ql (U) None seen None Seen [facility] Urine clarity by refractomet ry automatedOrdered By: Afua Mae on 04-27-2023 Clarity Refractometry automated (U) Clear Clear [facility] Urine glucose measurement by automated test strip (mass/volume)Ordered By: Afua Mae on 04-27-2023 Glucose Auto test strip (U) [Mass/Vol] Normal mg/dL Normal [facility] Urine hemoglobin detection b y automated test stripOrdered By: Afua Mae on 04-27-2023 Hemoglobin Auto test strip Ql (U) Negative Negative [facility] Urine leukocyte esterase det ection by automated test stripOrdered By: Afua Mae on 04-27-2023 Leukocyte esterase Auto test strip Ql (U) Negative Negative [facility] Urine pH measurement by auto mated test stripOrdered By: Afua Mae on 04-27-2023 pH (U) 6.0 [pH] Normal 5.0-9.0 [facility] Comment on above: Order Comment: Name Collection Type:: Clean-Voided Midstream Performed By: #### A DDONUAPLUS ####[address] [address] [facility] Urine protein measurement by automated test strip (mass/volume)Ordered By: Afua Mae on 04-27-2023 Protein (U) [Mass/Vol] 300 mg/dL High Negative [facility] Comment on above: Order Comment: Name Collection Type:: Clean-Voided Midstream Performed By: #### A DDONUAPLUS ####[address] [address] [facility] Urobilinogen Auto test strip (U) [Mass/Vol]Ordered By: Afua Mae on 04-27-2023 Urobilinogen (U) [Mass/Vol] Normal mg/dL Normal [facility] XR chest 1V portableon 04-26 XR chest 1V portable Normal [facility] XR knee RT 4V*on 04-27-2023 XR knee RT 4V* Normal [facility] Basic Metabolic Panelon 02-14 Anion gap [Moles/Vol] 8.5 mmol/L Normal 6.0-15.0 [facility] Comment on above: Performed By: #### B MP ####[place] [id number] [facility] Calcium [Mass/Vol] 8.6 mg/dL Normal 8.6-10.3 [facility] Comment on above: Performed By: #### B MP ####[place] [id number] [facility] Chloride [Moles/Vol] 99 mmol/L Normal 98-107 [facility] Comment on above: Performed By: #### B MP ####[place] [id number] [facility] CO2 [Moles/Vol] 34.5 mmol/L High 21.0-31.0 [facility] Comment on above: Performed By: #### B MP ####[place] [id number] [facility] Creatinine [Mass/Vol] 1.37 mg/dL High 0.70-1.30 [facility] Comment on above: Performed By: #### B MP ####[place] [id number] [facility] Creatinine Clr Calc Pharmacy 57.25 Normal [facility] Comment on above: Result Comment: PERF ORMED BY:[address] [place], [place] [phone] MEDICAL JADEN NOGUEIRA M.D. Performed By: #### B MP ####[place] [id number] [facility] GFR/1.73 sq M.predicted MDRD (S/P/Bld) [Vol rate/Area] 53.130 mL/min/{1.73_m2} Normal [facility] Comment on above: Performed By: #### B MP ####[place] [id number] [facility] Glucose [Mass/Vol] 94 mg/dL Normal 70-100 [facility] Comment on above: Result Comment: [place] Glucose Reference Range is dependent on time and content of last meal. Glucose of more than 200 mg/dL in a nonstressed, ambulatory subject supports the diagnosis of Diabetes Mellitus. ADA recommended reference range Performed By: #### B MP ####[place] [id number] [facility] Potassium [Moles/Vol] 4.0 mmol/L Normal 3.5-5.1 [facility] Comment on above: Performed By: #### B MP ####[place] [id number] [facility] Sodium [Moles/Vol] 138 mmol/L Normal 136-145 [facility] Comment on above: Performed By: #### B MP ####[place] [id number] [facility] Urea nitrogen [Mass/Vol] 34 mg/dL High 7-25 [facility] Comment on above: Performed By: #### B MP ####[place] [id number] [facility] Basic Metabolic Panelon 01-2 Anion gap [Moles/Vol] 9.8 mmol/L Normal 6.0-15.0 [facility] Comment on above: Performed By: #### B MP ####[place] [id number] [facility] Calcium [Mass/Vol] 8.2 mg/dL Low 8.6-10.3 [facility] Comment on above: Performed By: #### B MP ####[place] [id number] [facility] Chloride [Moles/Vol] 100 mmol/L Normal 98-107 [facility] Comment on above: Performed By: #### B MP ####[place] [id number] [facility] CO2 [Moles/Vol] 33.1 mmol/L High 21.0-31.0 [facility] Comment on above: Performed By: #### B MP ####[place] [id number] [facility] Creatinine [Mass/Vol] 1.45 mg/dL High 0.70-1.30 [facility] Comment on above: Performed By: #### B MP ####[place] [id number] [facility] Creatinine Clr Calc Pharmacy 54.09 Normal [facility] Comment on above: Result Comment: PERF ORMED BY:[address] [place], [place] [phone] MEDICAL DIRECTORANNIKA NOGUEIRA M.D. Performed By: #### B MP ####[address] [address] [facility] GFR/1.73 sq M.predicted MDRD (S/P/Bld) [Vol rate/Area] 49.631 mL/min/{1.73_m2} Normal [facility] Comment on above: Performed By: #### B MP ####[place] [id number] [facility] Glucose [Mass/Vol] 111 mg/dL High 70-100 [facility] Comment on above: Result Comment: [place] Glucose Reference Range is dependent on time and content of last meal. Glucose of more than 200 mg/dL in a nonstressed, ambulatory subject supports the diagnosis of Diabetes Mellitus. ADA recommended reference range Performed By: #### B MP ####[place] [id number] [facility] Potassium [Moles/Vol] 3.9 mmol/L Normal 3.5-5.1 [facility] Comment on above: Performed By: #### B MP ####[place] [id number] [facility] Sodium [Moles/Vol] 139 mmol/L Normal 136-145 [facility] Comment on above: Performed By: #### B MP ####[place] [id number] [facility] Urea nitrogen [Mass/Vol] 34 mg/dL High 7-25 [facility] Comment on above: Performed By: #### B MP ####[address] [address] [facility] Basic Metabolic Panelon 02-14 Anion gap [Moles/Vol] 8.7 mmol/L Normal 6.0-15.0 [facility] Comment on above: Performed By: #### B MP ####[address] [address] [facility] Calcium [Mass/Vol] 8.2 mg/dL Low 8.6-10.3 The Pending Sale To [facility] Comment on above: Performed By: #### B MP ####[place] [id number] [facility] Chloride [Moles/Vol] 102 mmol/L Normal 98-107 The Pending Sale To [facility] Comment on above: Performed By: #### B MP ####[address] [address] [facility] CO2 [Moles/Vol] 33.1 mmol/L High 21.0-31.0 The Pending Sale To [facility] Comment on above: Performed By: #### B MP ####[address] [place] [address] [facility] Creatinine [Mass/Vol] 1.39 mg/dL High 0.70-1.30 The Pending Sale To [facility] Comment on above: Performed By: #### B MP ####[place] [id number] [facility] Creatinine Clr Calc Pharmacy 56.28 Normal The Pending Sale To [facility] Comment on above: Result Comment: PERF ORMED BY:[address] [place], [place] [id number] MEDICAL DIRECTORANNIKA NOGUEIRA M.D. Performed By: #### B MP ####[place] [id number] [facility] GFR/1.73 sq M.predicted MDRD (S/P/Bld) [Vol rate/Area] 52.213 mL/min/{1.73_m2} Normal The Pending Sale To [facility] Comment on above: Performed By: #### B MP ####[place] [address] [facility] Glucose [Mass/Vol] 95 mg/dL Normal 70-100 The Pending Sale To [facility] Comment on above: Result Comment: [place] Glucose Reference Range is dependent on time and content of last meal. Glucose of more than 200 mg/dL in a nonstressed, ambulatory subject supports the diagnosis of Diabetes Mellitus. ADA recommended reference range Performed By: #### B MP ####[place] [id number] [facility] Potassium [Moles/Vol] 3.8 mmol/L Normal 3.5-5.1 The Pending Sale To [facility] Comment on above: Performed By: #### B MP ####[place] [address] [facility] Sodium [Moles/Vol] 140 mmol/L Normal 136-145 The Pending Sale To [facility] Comment on above: Performed By: #### B MP ####[place] [address] [facility] Urea nitrogen [Mass/Vol] 31 mg/dL High 7-25 The Pending Sale To [facility] Comment on above: Performed By: #### B MP ####[address] [address] [facility] MR head/brain wo conon 03-06 MR head/brain wo con Normal The Pending Sale To [facility] Basic Metabolic Panelon 02-14 Anion gap [Moles/Vol] 10.3 mmol/L Normal 6.0-15.0 Th e Pending Sale To [facility] Comment on above: Performed By: #### Yen James, BMP ####[place] [id number] [facility] Calcium [Mass/Vol] 8.4 mg/dL Low 8.6-10.3 The Pending Sale To [facility] Comment on above: Performed By: #### Yen James, BMP ####[place] [id number] [facility] Chloride [Moles/Vol] 103 mmol/L Normal 98-107 The Pending Sale To [facility] Comment on above: Performed By: #### Yen James, BMP ####[place] [id number] [facility] CO2 [Moles/Vol] 29.4 mmol/L Normal 21.0-31.0 The Pending Sale To [facility] Comment on above: Performed By: #### Yen James, BMP ####[place] [id number] [facility] Creatinine [Mass/Vol] 1.34 mg/dL High 0.70-1.30 The Pending Sale To [facility] Comment on above: Performed By: #### Yen Jamse, BMP ####[place] [id number] [facility] Creatinine Clr Calc Pharmacy 58.46 Normal The Pending Sale To [facility] Comment on above: Performed By: #### Yen James, BMP ####[place] [address] [place] GFR/1.73 sq M.predicted MDRD (S/P/Bld) [Vol rate/Area] 54.560 mL/min/{1.73_m2} Normal The Pending Sale To [facility] Comment on above: Performed By: #### Tyree, BMP ####[place] [address] [facility] Glucose [Mass/Vol] 97 mg/dL Normal 70-100 The Pending Sale To [facility] Comment on above: Result Comment: [place] Glucose Reference Range is dependent on time and content of last meal. Glucose of more than 200 mg/dL in a nonstressed, ambulatory subject supports the diagnosis of Diabetes Mellitus. ADA recommended reference range Performed By: #### M Tyree, BMP ####[place] [id number] [facility] Potassium [Moles/Vol] 3.7 mmol/L Normal 3.5-5.1 The Pending Sale To [facility] Comment on above: Performed By: #### Yen James, BMP ####[place] [address] [facility] Sodium [Moles/Vol] 139 mmol/L Normal 136-145 The Pending Sale To [facility] Comment on above: Performed By: #### Yen , BMP ####[place] [id number] [facility] Urea nitrogen [Mass/Vol] 28 mg/dL High 7-25 The Pending Sale To [facility] Comment on above: Performed By: #### Yen , BMP ####[place] [id number] [facility] Complete Blood Count Auto Di ffon 03-05-2023 Basophils (Bld) [#/Vol] 0.0 10*3/uL Normal 0.0-0.2 The Pending Sale To [facility] Comment on above: Result Comment: PERF ORMED BY:[address] [place], [place] [id number] MEDICAL DIRECTORANNIKA NOGUEIRA M.D. Performed By: #### C BC ####[place] [id number] [facility] Basophils/100 WBC (Bld) 0.5 % Normal . The Pending Sale To [facility] Comment on above: Performed By: #### C BC ####[place] [id number] [facility] Eosinophils (Bld) [#/Vol] 0.3 10*3/uL Normal 0.0-0.45 The Pending Sale To [facility] Comment on above: Performed By: #### C BC ####[address] Eosinophils/100 WBC (Bld) 5.2 % Normal . The Pending Sale To [facility] Comment on above: Performed By: #### C BC ####[address] Erythrocyte distribution width (RBC) [Ratio] 14.5 % Normal 12.0-14.8 The Pending Sale To [facility] Comment on above: Performed By: #### C BC ####[address] Hematocrit (Bld) [Volume fraction] 33.3 % Low 38.8-50.0 The Pending Sale To [facility] Comment on above: Performed By: #### C BC ####[address] Hemoglobin (Bld) [Mass/Vol] 11.0 g/dL Low 13.0-17.0 The Pending Sale To [facility] Comment on above: Performed By: #### C BC ####[address] Lymphocytes (Bld) [#/Vol] 1.7 10*3/uL Normal 1.00-4.8 The Pending Sale To [facility] Comment on above: Performed By: #### C BC ####[address] Lymphocytes/100 WBC (Bld) 26.9 % Normal . The Pending Sale To [facility] Comment on above: Performed By: #### C BC ####[address] MCH (RBC) [Entitic mass] 32.7 pg Normal 27.5-35.2 The Pending Sale To [facility] Comment on above: Performed By: #### C BC ####[address] MCV (RBC) [Entitic vol] 99.2 fL Normal 83.5-101 The Pending Sale To [facility] Comment on above: Performed By: #### C BC ####[address] Mean Corpuscular HGB Conc 33.0 g/dL Normal 32.5-35.6 The Pending Sale To [facility] Comment on above: Performed By: #### C BC ####[address] Monocytes (Bld) [#/Vol] 0.7 10*3/uL Normal 0.0-0.8 The Pending Sale To [facility] Comment on above: Performed By: #### C BC ####[address] Monocytes/100 WBC (Bld) 11.4 % Normal . The Pending Sale To [facility] Comment on above: Performed By: #### C BC ####[address] Neutrophils (Bld) [#/Vol] 3.5 10*3/uL Normal 1.8-7.7 The Pending Sale To [facility] Comment on above: Performed By: #### C BC ####[address] Neutrophils/100 WBC (Bld) 56.0 % Normal . The Pending Sale To [facility] Comment on above: Performed By: #### C BC ####[address] NRBC% 0.2 /100{WBC} Normal 0-0.5 The Pending Sale To [facility] Comment on above: Performed By: #### C BC ####[address] Platelet mean volume (Bld) [Entitic vol] 9.9 fL Normal 6.6-10.1 The Pending Sale To [facility] Comment on above: Performed By: #### C BC ####[address] Platelets (Bld) [#/Vol] 135 10*3/uL Low 150-450 The Pending Sale To [facility] Comment on above: Performed By: #### C BC ####[address] RBC (Bld) [#/Vol] 3.36 10*6/uL Low 3.90-5.60 The Pending Sale To [facility] Comment on above: Performed By: #### C BC ####[place] [id number] [facility] WBC (Bld) [#/Vol] 6.3 10*3/uL Normal 4.1-10.5 The Pending Sale To [facility] Comment on above: Performed By: #### C BC ####[place] [address] [facility] Magnesiumon 03-05-2023 Magnesium [Mass/Vol] 1.9 mg/dL Normal 1.9-2.7 The Pending Sale To [facility] Comment on above: Result Comment: PERF ORMED BY:[address] [place], [place] [phone] MEDICAL DIRECTORANNIKA NOGUEIRA M.D. Performed By: #### Yen James, BMP ####[place] [id number] [facility] Basic Metabolic Panelon 02-14 Anion gap [Moles/Vol] 10.5 mmol/L Normal 6.0-15.0 [facility] Comment on above: Performed By: #### Yen James, BMP ####[place] [id number] [facility] Calcium [Mass/Vol] 8.8 mg/dL Normal 8.6-10.3 The Pending Sale To [facility] Comment on above: Performed By: #### Yen James, BMP ####[place] [id number] [facility] Chloride [Moles/Vol] 103 mmol/L Normal 98-107 The Pending Sale To [facility] Comment on above: Performed By: #### Yen James, BMP ####[place] [id number] [facility] CO2 [Moles/Vol] 31.2 mmol/L High 21.0-31.0 The Pending Sale To [facility] Comment on above: Performed By: #### Yen James, BMP ####[place] [id number] [facility] Creatinine [Mass/Vol] 1.41 mg/dL High 0.70-1.30 The Pending Sale To [facility] Comment on above: Performed By: #### Yen James, BMP ####[place] [address] [place] [id number] [facility] Creatinine Clr Calc Pharmacy 55.45 Normal The Pending Sale To [facility] Comment on above: Performed By: #### Yen James, BMP ####[place] [address] [place] [id number] [facility] GFR/1.73 sq M.predicted MDRD (S/P/Bld) [Vol rate/Area] 51.326 mL/min/{1.73_m2} Normal The Pending Sale To [facility] Comment on above: Performed By: #### Yen James, BMP ####[place] [address] [place] [id number] [facility] Glucose [Mass/Vol] 117 mg/dL High 70-100 The Pending Sale To [facility] Comment on above: Result Comment: [place] Glucose Reference Range is dependent on time and content of last meal. Glucose of more than 200 mg/dL in a nonstressed, ambulatory subject supports the diagnosis of Diabetes Mellitus. ADA recommended reference range Performed By: #### Yen James, BMP ####[place] [id number] [facility] Potassium [Moles/Vol] 3.7 mmol/L Normal 3.5-5.1 The Pending Sale To [facility] Comment on above: Performed By: #### Yen James, BMP ####[address] [address] [facility] Sodium [Moles/Vol] 141 mmol/L Normal 136-145 The Pending Sale To [facility] Comment on above: Performed By: #### Yen James, BMP ####[address] [address] [facility] Urea nitrogen [Mass/Vol] 27 mg/dL High 7-25 The Pending Sale To [facility] Comment on above: Performed By: #### Tyree, BMP ####[address] [address] [facility] Magnesiumon 03-04-2023 Magnesium [Mass/Vol] 1.9 mg/dL Normal 1.9-2.7 The Pending Sale To [facility] Comment on above: Result Comment: PERF ORMED BY:[address] [place], [place] [phone] MEDICAL DIRECTORANNIKA NOGUEIRA M.D. Performed By: #### M G, BMP ####[address] [address] [facility] Basic Metabolic Panelon 02-13 Anion gap [Moles/Vol] 9.3 mmol/L Normal 6.0-15.0 The Pending Sale To [facility] Comment on above: Performed By: #### B MP, MG ####[address] [address] [facility] Calcium [Mass/Vol] 8.2 mg/dL Low 8.6-10.3 The Pending Sale To [facility] Comment on above: Performed By: #### B MP, MG ####[place] [id number] [facility] Chloride [Moles/Vol] 106 mmol/L Normal 98-107 The Pending Sale To [facility] Comment on above: Performed By: #### B MP, MG ####[address] [address] [facility] CO2 [Moles/Vol] 29.4 mmol/L Normal 21.0-31.0 The Pending Sale To [facility] Comment on above: Performed By: #### B MP, MG ####[place] [id number] [facility] Creatinine [Mass/Vol] 1.66 mg/dL High 0.70-1.30 The Pending Sale To [facility] Comment on above: Performed By: #### B MP, MG ####[address] [address] [facility] Creatinine Clr Calc Pharmacy 50.50 Normal The Pending Sale To [facility] Comment on above: Performed By: #### B MP, MG ####[place] [id number] [facility] GFR/1.73 sq M.predicted MDRD (S/P/Bld) [Vol rate/Area] 42.196 mL/min/{1.73_m2} Normal The Pending Sale To [facility] Comment on above: Performed By: #### B MP, MG ####[place] [address] [facility] Glucose [Mass/Vol] 68 mg/dL Low 70-100 The Pending Sale To [facility] Comment on above: Result Comment: [place] Glucose Reference Range is dependent on time and content of last meal. Glucose of more than 200 mg/dL in a nonstressed, ambulatory subject supports the diagnosis of Diabetes Mellitus. ADA recommended reference range Performed By: #### B MP, MG ####[address] Potassium [Moles/Vol] 3.7 mmol/L Normal 3.5-5.1 The Pending Sale To [facility] Comment on above: Performed By: #### B MP, MG ####[address] Sodium [Moles/Vol] 141 mmol/L Normal 136-145 The Pending Sale To [facility] Comment on above: Performed By: #### B MP, MG ####[address] Urea nitrogen [Mass/Vol] 26 mg/dL High 7-25 The Pending Sale To [facility] Comment on above: Performed By: #### B MP, MG ####[place] [id number] [facility] Magnesiumon 03-03-2023 Magnesium [Mass/Vol] 1.7 mg/dL Low 1.9-2.7 The Pending Sale To [facility] Comment on above: Result Comment: PERF ORMED BY:[address] [place], [place] [phone] MEDICAL DIRECTORANNIKA NOGUEIRA M.D. Performed By: #### B MP, MG ####[place] [id number] [facility] TERESE Antinuclear Antibodieson 03-02-2023 Antinuclear Abs, IFA Negative Normal . The Pending Sale To [facility] Comment on above: Result Comment: Nega tive <1:80 Borderline 1:80 Positive >1:80 ICAP nomenclature: AC-0 For more information about Hep-2 cell patterns use ANApatterns.org, the official website for the International Consensus on Antinuclear Antibody (TERESE) Patterns (ICAP). Performed at: [address] [id number] [employer] Operator: Ed Aparicio PhD, Phone: [phone] Performed By: #### A NCA PROF, TERESE, HEPACUTE ####[facility] , ANCA Profile (ANCA+MPO+PR3)o n 03-02-2023 Antimyeloperoxidase (MPO) Abs <0.2 Normal 0.0-0.9 The Pending Sale To [facility] Comment on above: Performed By: #### A NCA PROF, TERESE, HEPACUTE ####[facility] , Atypical pANCA 1:20 High Neg:<1:20 The Pending Sale To [facility] Comment on above: Result Comment: The atypical pANCA pattern has been observed in a significant percentage of patients with ulcerative colitis, primary sclerosing cholangitis and autoimmune hepatitis. Performed at: [address] [id number] [employer] Operator: Shaun Montiel MD, Phone: [phone] Performed at: [address] [id number] [employer] Operator: Ed Aparicio PhD, Phone: [phone] Performed By: #### A NCA PROF, TERESE, HEPACUTE ####[facility] , Cytoplasmic (C-ANCA) <1:20 Normal Neg:<1:20 The Pending Sale To [facility] Comment on above: Performed By: #### A NCA PROF, TERESE, HEPACUTE ####[facility] , Perinuclear (P-ANCA) <1:20 Normal Neg:<1:20 The Pending Sale To [facility] Comment on above: Result Comment: The presence of positive fluorescence exhibiting P-ANCA or C-ANCA patterns alone is not specific for the diagnosis of Monalisa's Granulomatosis (WG) or microscopic polyangiitis. Decisions about treatment should not be based solely on ANCA IFA results. The International ANCA Group Consensus recommends follow up testing of positive sera with both NC- 3 and MPO-ANCA enzyme immunoassays. As many as 5% serum samples are positive only by EIA. Ref. AM J Clin Pathol 1999;111:507-513. Performed By: #### A NCA PROF, TERESE, HEPACUTE ####[facility] , Proteinase 3 (PR3) Antibodies <0.2 Normal 0.0-0.9 The Pending Sale To [facility] Comment on above: Result Comment: PERF ORMED BY:[address] [place] [phone] MEDICAL DIRECTORANNIKA NOGUEIRA M.D. Performed By: #### A NCA PROF, TERESE, HEPACUTE ####[facility] , Basic Metabolic Panelon 02-13 Anion gap [Moles/Vol] 10.2 mmol/L Normal 6.0-15.0 Th e Pending Sale To [facility] Comment on above: Performed By: #### B MP, MG ####[address] [address] [facility] Calcium [Mass/Vol] 8.2 mg/dL Low 8.6-10.3 The Pending Sale To [facility] Comment on above: Performed By: #### B MP, MG ####[address] [address] [facility] Chloride [Moles/Vol] 108 mmol/L High 98-107 The Pending Sale To [facility] Comment on above: Performed By: #### B MP, MG ####[address] [address] [facility] CO2 [Moles/Vol] 27.6 mmol/L Normal 21.0-31.0 The Pending Sale To [facility] Comment on above: Performed By: #### B MP, MG ####[address] [address] [place] Creatinine [Mass/Vol] 1.72 mg/dL Significan t change up 0.70-1.30 The Pending Sale To [facility] Comment on above: Performed By: #### B MP, MG ####[address] [address] [place] Creatinine Clr Calc Pharmacy 48.65 Normal The Pending Sale To [facility] Comment on above: Performed By: #### B MP, MG ####[address] [address] [place] GFR/1.73 sq M.predicted MDRD (S/P/Bld) [Vol rate/Area] 40.436 mL/min/{1.73_m2} Normal The Pending Sale To [facility] Comment on above: Performed By: #### B MP, MG ####[address] [address] [facility] Glucose [Mass/Vol] 88 mg/dL Normal 70-100 The Pending Sale To [facility] Comment on above: Result Comment: [facility] Glucose Reference Range is dependent on time and content of last meal. Glucose of more than 200 mg/dL in a nonstressed, ambulatory subject supports the diagnosis of Diabetes Mellitus. ADA recommended reference range Performed By: #### B MP, MG ####[address] [address] [facility] Potassium [Moles/Vol] 3.8 mmol/L Normal 3.5-5.1 The Pending Sale To [facility] Comment on above: Performed By: #### B MP, MG ####[address] [address] [place] Sodium [Moles/Vol] 142 mmol/L Normal 136-145 The Pending Sale To [facility] Comment on above: Performed By: #### B MP, MG ####[address] [address] [facility] Urea nitrogen [Mass/Vol] 24 mg/dL Normal 7-25 The Pending Sale To [facility] Comment on above: Performed By: #### B MP, MG ####[address] [address] [place] Creatine Kinaseon 03-02-2023 CK [Catalytic activity/Vol] 36 U/L Normal 30-223 The Pending Sale To [facility] Comment on above: Result Comment: PERF ORMED BY:[address] [place], [place] [phone] MEDICAL JADEN NOGUEIRA M.D. Performed By: #### I FE SERUM, SPE, KAPPA ####[facility] ,#### CK ####[place] [id number] [facility] Ferritinon 03-02-2023 Ferritin [Mass/Vol] 77.4 ng/mL Normal 23.9-336.2 The Pending Sale To [facility] Comment on above: Performed By: #### V [id number], NICK, FE and TIBC ####[address] Free K+L LT Chains, Qn, Son 03-02-2023 Free [place] Light Chains, S 97.6 mg/L High 3.3-19.4 The Pending Sale To [facility] Comment on above: Performed By: #### I FE SERUM, SPE, KAPPA ####[facility] ,#### CK ####[address] Free [place] Light Chains, S 77.9 mg/L High 5.7-26.3 The Pending Sale To [facility] Comment on above: Performed By: #### I FE SERUM, SPE, KAPPA ####[facility] ,#### CK ####[address] [place]/Lambda Ratio, S 1.25 Normal 0.26-1.65 The Pending Sale To [facility] Comment on above: Result Comment: Perf ormed at: - [facility] [address] [id number] [employer] Operator: Ed Aparicio PhD, Phone: [phone] BY:[address] [place], [place] [phone] MEDICAL DIRECTORANNIKA NOGUEIRA M.D. Performed By: #### I FE SERUM, SPE, KAPPA ####[facility] ,#### CK ####[address] Hepatitis Acute Panelon 02-13 HBsAg Screen Negative Normal Negative The Pending [facility] To [facility] Comment on above: Performed By: #### A NCA PROF, TERESE, HEPACUTE ####[facility] , Hepatitis A Antibody IgM Negative Normal Negative The Pending Sale To [facility] Comment on above: Performed By: #### A NCA PROF, TERESE, HEPACUTE ####[facility] , Hepatitis B Core Antibody IgM Negative Normal Negative The Pending Sale To [facility] Comment on above: Performed By: #### A NCA PROF, TERESE, HEPACUTE ####[facility] , Hepatitis C Virus Antibody Non-Reactive Normal Non Reactive The Pending Sale To [facility] Comment on above: Performed By: #### A NCA PROF, TERESE, HEPACUTE ####[facility] , Interpretation Hepatitis C Normal . The Pending Sale To [facility] Comment on above: Result Comment: Not infected with HCV unless early or acute infection is suspected (which may be delayed in an immunocompromised individual), or other evidence exists to indicate HCV infection. Performed at: [address] [id number] [employer] Operator: Ed Aparicio PhD, Phone: [phone] BY:[facility] [place], [place] [phone] MEDICAL DIRECTORANNIKA NOGUEIRA M.D. Performed By: #### A NCA PROF, TERESE, HEPACUTE ####[facility] , Immunofixation, (CHUNG), Urine on 03-02-2023 Immunofixation, (CHUNG), Urine Comment: Normal . The Pending Sale To [facility] Comment on above: Result Comment: CHUNG shows asymmetrical IgA suggestive of a monoclonal protein. Suggest serum CHUNG and free light chain analysis if clinically indicated. Performed at: [facility] [employer] [id number] [employer] Operator: Ed Aparicio PhD, Phone: [phone] Performed By: #### U PE RAND, CHUNG,URINE ####[facility] , Immunofixation,Serumon 03-02 Immunofixation, Serum Abnormal . 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 Performed By: #### I FE SERUM, SPE, KAPPA ####[facility] ,#### CK ####[place] [id number] [facility] Immunoglobulin A, Serum 598 mg/dL High 61-437 The Pending [facility] To [facility] Comment on above: Performed By: #### I FE SERUM, SPE, KAPPA ####[facility] ,#### CK ####[place] [id number] [facility] Immunoglobulin G 1541 mg/dL Normal 603-1613 The Pending [facility] To [facility] Comment on above: Performed By: #### I FE SERUM, SPE, KAPPA ####[facility] ,#### CK ####[place] [id number] [facility] Immunoglobulin M, Serum 73 mg/dL Normal 15-143 The Pending [facility] Comment on above: Result Comment: Perf ormed at: CB - [facility] [place] [id number] [employer] Operator: Ed Aparicio PhD, Phone: [phone] Performed By: #### I FE SERUM, SPE, KAPPA ####[facility] ,#### CK ####[place] [id number] [facility] Iron and TIBC Profileon 02-13 % Iron Saturation 11.9 % Low 20-50 The Pending [facility] Comment on above: Performed By: #### V [id number], NICK, FE and TIBC ####[place] [id number] [facility] Iron [Mass/Vol] 39 ug/dL Low 50-212 The Pending [facility] Comment on above: Performed By: #### V [id number], NICK, FE and TIBC ####[place] [id number] [facility] Total Iron Binding Capacity 329 ug/dL Normal 255-450 The [facility]ending [facility] Comment on above: Performed By: #### V [id number], NICK, FE and TIBC ####[facility] [place] [address] [facility] Transferrin [Mass/Vol] 235 mg/dL Normal 203-362 Th e Pending Sale To [facility] Comment on above: Performed By: #### V [id number], NICK, FE and TIBC ####[facility] [place] [address] [facility] Magnesiumon 03-02-2023 Magnesium [Mass/Vol] 1.8 mg/dL Low 1.9-2.7 The Pending [facility] Comment on above: Result Comment: PERF ORMED BY:[address], [place] [id number] MEDICAL DIRECTORANNIKA NOGUEIRA M.D. Performed By: #### B MP, MG ####[place] [address] [place] [address] [facility] Protein Electro, Random Urin addison 03-02-2023 Albumin, Urine 72.5 % Normal . The Pending [facility] Comment on above: Performed By: #### U PE RAND, CHUNG,URINE ####[facility] , Gvmoj-6-Awnrajxp, Urine 0.8 % Normal . The Pending [facility] Comment on above: Performed By: #### U PE RAND, CHUNG,URINE ####[facility] , Plmea-4-Fomdhieb, Urine 3.5 % Normal . The Pending [facility] Comment on above: Performed By: #### U PE RAND, CHUNG,URINE ####[facility] , Beta Globulin, Urine 11.5 % Normal . The Pending [facility] Comment on above: Performed By: #### U PE RAND, CHUNG,URINE ####[facility] , Gamma Globulin, Urine 11.8 % Normal . The Pending [facility] Comment on above: Performed By: #### U PE RAND, CHUNG,URINE ####[facility] , M-Saran % Not Observed Normal Not Observed The Pending [facility] Comment on above: Performed By: #### U PE RAND, CHUNG,URINE ####[facility] , Please Note: Normal . The Pending [facility] Comment on above: Result Comment: Prot ein electrophoresis scan will follow via computer, mail, or lease attendant delivery.PERFORMED BY:[address] [place]ASPRIMM SPRINGS, [place] [phone] MEDICAL DIRECTORANNIKA NOGUEIRA M.D. Performed By: #### U PE RAND, CHUNG,URINE ####[facility] , Protein (U) [Mass/Vol] 105.2 mg/dL Normal Not Estab. T he Pending Sale To [facility] Comment on above: Performed By: #### U PE RAND, CHUNG,URINE ####[facility] , Protein Electrophoresis, Ser umon 03-02-2023 Albumin [Mass/Vol] 3.2 g/dL Normal 2.9-4.4 The [facility] Comment on above: Performed By: #### I FE SERUM, SPE, KAPPA ####[facility] ,#### CK ####[address] Albumin/Globulin [Mass ratio] 0.9 {ratio} Normal 0.7-1.7 The Pending [facility] Comment on above: Performed By: #### I FE SERUM, SPE, KAPPA ####[facility] ,#### CK ####[address] Kveub-6-Hruxyabg 0.3 g/dL Normal 0.0-0.4 The [facility] Comment on above: Performed By: #### I FE SERUM, SPE, KAPPA ####[facility] ,#### CK ####[address] Vuwiu-3-Nedjjusq 0.8 g/dL Normal 0.4-1.0 The Pending [facility] Comment on above: Performed By: #### I FE SERUM, SPE, KAPPA ####[facility] ,#### CK ####[address] Beta Globulin 1.1 g/dL Normal 0.7-1.3 The Pending [facility] Comment on above: Performed By: #### I FE SERUM, SPE, KAPPA ####[facility] ,#### CK ####[address] Gamma Globulin 1.5 g/dL Normal 0.4-1.8 The Pending [facility] Comment on above: Performed By: #### I FE SERUM, SPE, KAPPA ####[facility] ,#### CK ####[address] Globulin (S) [Mass/Vol] 3.7 g/dL Normal 2.2-3.9 The Pending [facility] Comment on above: Performed By: #### I FE SERUM, SPE, KAPPA ####[facility] ,#### CK ####[address] M-Saran Comment: Normal Not Observed The Pending [facility] Comment on above: Result Comment: Asym metrical gamma Performed By: #### I FE SERUM, SPE, KAPPA ####[facility] ,#### CK ####[address] Protein [Mass/Vol] 6.9 g/dL Normal 6.0-8.5 The Pending [facility] Comment on above: Performed By: #### I FE SERUM, SPE, KAPPA ####[facility] ,#### CK ####[address] SPE-Note Normal . The Pending [facility] Comment on above: Result Comment: Prot ein electrophoresis scan will follow via computer, mail, or lease attendant delivery. Performed at: [address] [id number] [employer] Operator: Ed Aparicio PhD, Phone: [phone] Performed By: #### I FE SERUM, SPE, KAPPA ####[facility] ,#### CK ####[address] US renal BIon 03-02-2023 US renal BI Normal The [facility] Vit. B12/Folate Profileon Cobalamin (Vitamin B12) [Mass/Vol] 190 pg/mL Normal 180-914 The Pending [facility] Comment on above: Performed By: #### V [id number], NICK, FE and TIBC ####[address] Folate 7.6 ng/mL Normal >5.9 The Pending [facility] Comment on above: Result Comment: Cecy te reference range: >5.9 ng/ml The WHO technical consultation on folate and vitamin b12 deficiencies has determined that folate concentrations less than 4 ng/ml are considered deficient.PERFORMED BY:[address] [place], [place] [phone] MEDICAL DIRECTORANNIKA NOGUEIRA M.D. Performed By: #### V [id number], NIKC, FE and TIBC ####[address] Basic Metabolic Panelon 02-13 Anion gap [Moles/Vol] 11.1 mmol/L Normal 6.0-15.0 Th e Pending Sale To [facility] Comment on above: Performed By: #### M G, BMP, SCAN CBC ####[address] Calcium [Mass/Vol] 8.7 mg/dL Normal 8.6-10.3 The Pending [facility] Comment on above: Performed By: #### M G, BMP, SCAN CBC ####[address] Chloride [Moles/Vol] 109 mmol/L High 98-107 The Pending [facility] Comment on above: Performed By: #### M G, BMP, SCAN CBC ####[facility] [place] [address] [place] CO2 [Moles/Vol] 25.4 mmol/L Normal 21.0-31.0 The [facility]ending [facility] Comment on above: Performed By: #### M G, BMP, SCAN CBC ####[place] [place] [place] [address] [place] Creatinine [Mass/Vol] 1.22 mg/dL Normal 0.70-1.30 The Pending [facility] Comment on above: Performed By: #### M G, BMP, SCAN CBC ####[place] [address] [place] [id number] [place] Creatinine Clr Calc Pharmacy 66.27 Normal The Pending [facility] Comment on above: Performed By: #### M G, BMP, SCAN CBC ####[place] [place] [place] [address] [place] GFR/1.73 sq M.predicted MDRD (S/P/Bld) [Vol rate/Area] mL/min/{1.73_m2} Normal The Pending [facility] Comment on above: Performed By: #### M G, BMP, SCAN CBC ####[place] [address] [place] [id number] [facility] Glucose [Mass/Vol] 149 mg/dL High 70-100 The [facility]ending [facility] Comment on above: Result Comment: [place] Glucose Reference Range is dependent on time and content of last meal. Glucose of more than 200 mg/dL in a nonstressed, ambulatory subject supports the diagnosis of Diabetes Mellitus. ADA recommended reference range Performed By: #### M G, BMP, SCAN CBC ####[place] [address] [place] [address] [facility] Potassium [Moles/Vol] 3.5 mmol/L Normal 3.5-5.1 The Pending [facility] Comment on above: Performed By: #### M G, BMP, SCAN CBC ####[facility] [place] [address] [place] Sodium [Moles/Vol] 142 mmol/L Normal 136-145 The Pending [facility] Comment on above: Performed By: #### M G, BMP, SCAN CBC ####[place] [id number] [facility] Urea nitrogen [Mass/Vol] 17 mg/dL Normal 7-25 The [facility]ending [facility] Comment on above: Performed By: #### M G, BMP, SCAN CBC ####[address] [address] [facility] Magnesiumon 03-01-2023 Magnesium [Mass/Vol] 1.7 mg/dL Low 1.9-2.7 The Pending [facility] Comment on above: Result Comment: PERF ORMED BY:[address] [place], [place] [phone] MEDICAL DIRECTORANNIKA NOGUEIRA M.D. Performed By: #### M G, BMP, SCAN CBC ####[address] Scan and CBCon 03-01-2023 Anisocytosis Ql (Bld) Slight Normal The Pending [facility] Comment on above: Performed By: #### M G, BMP, SCAN CBC ####[address] [address] [facility] Basophils (Bld) [#/Vol] 0.0 10*3/uL Normal 0.0-0.2 The [facility]ending [facility] Comment on above: Performed By: #### M G, BMP, SCAN CBC ####[place] [id number] [facility] Basophils/100 WBC (Bld) 0.5 % Normal . The Pending [facility] Comment on above: Performed By: #### M G, BMP, SCAN CBC ####[place] [id number] [facility] Eosinophils (Bld) [#/Vol] 0.3 10*3/uL Normal 0.0-0.45 The Pending [facility] Comment on above: Performed By: #### M G, BMP, SCAN CBC ####[place] [id number] [facility] Eosinophils/100 WBC (Bld) 5.2 % Normal . The Pending [facility] Comment on above: Performed By: #### M G, BMP, SCAN CBC ####[address] Erythrocyte distribution width (RBC) [Ratio] 15.1 % High 12.0-14.8 The Pending [facility] Comment on above: Performed By: #### M G, BMP, SCAN CBC ####[address] Hematocrit (Bld) [Volume fraction] 34.1 % Low 38.8-50.0 The Pending [facility] Comment on above: Performed By: #### M G, BMP, SCAN CBC ####[address] Hemoglobin (Bld) [Mass/Vol] 11.3 g/dL Low 13.0-17.0 The Pending [facility] Comment on above: Performed By: #### M G, BMP, SCAN CBC ####[address] Large Platelets Slight Normal The [facility]ending [facility] Comment on above: Result Comment: PERF ORMED BY:[address] [place], [place] [phone] MEDICAL DIRECTORANNIKA NOGUEIRA M.D. Performed By: #### M G, BMP, SCAN CBC ####[address] Lymphocytes (Bld) [#/Vol] 1.3 10*3/uL Normal 1.00-4.8 The [facility]ending [facility] Comment on above: Performed By: #### M G, BMP, SCAN CBC ####[address] Lymphocytes/100 WBC (Bld) 22.7 % Normal . The Pending [facility] Comment on above: Performed By: #### M G, BMP, SCAN CBC ####[address] MCH (RBC) [Entitic mass] 32.9 pg Normal 27.5-35.2 The [facility]ending [facility] Comment on above: Performed By: #### M G, BMP, SCAN CBC ####[address] MCV (RBC) [Entitic vol] 99.4 fL Normal 83.5-101 The Pending [facility] Comment on above: Performed By: #### M G, BMP, SCAN CBC ####[address] Mean Corpuscular HGB Conc 33.1 g/dL Normal 32.5-35.6 The Pending [facility] Comment on above: Performed By: #### M G, BMP, SCAN CBC ####[address] Monocytes (Bld) [#/Vol] 0.6 10*3/uL Normal 0.0-0.8 The Pending [facility] Comment on above: Performed By: #### M G, BMP, SCAN CBC ####[address] Monocytes/100 WBC (Bld) 10.6 % Normal . The Pending [facility] Comment on above: Performed By: #### M G, BMP, SCAN CBC ####[address] Neutrophils (Bld) [#/Vol] 3.6 10*3/uL Normal 1.8-7.7 The [facility]ending [facility] Comment on above: Performed By: #### M G, BMP, SCAN CBC ####[address] Neutrophils/100 WBC (Bld) 61.0 % Normal . The Pending [facility] Comment on above: Performed By: #### M G, BMP, SCAN CBC ####[address] NRBC% 0.1 /100{WBC} Normal 0-0.5 The [facility]ending [facility] Comment on above: Performed By: #### M G, BMP, SCAN CBC ####[address] Ovalocytes Slight Normal The [facility]ending [facility] Comment on above: Performed By: #### M G, BMP, SCAN CBC ####[place] [id number] [facility] Platelet Estimate Decreased Normal Normal The [facility]ending [facility] Comment on above: Performed By: #### M G, BMP, SCAN CBC ####[place] [id number] [facility] Platelet mean volume (Bld) [Entitic vol] 10.2 fL High 6.6-10.1 The [facility]ending [facility] Comment on above: Performed By: #### M G, BMP, SCAN CBC ####[address] Platelets (Bld) [#/Vol] 145 10*3/uL Low 150-450 The [facility]ending [facility] Comment on above: Performed By: #### M G, BMP, SCAN CBC ####[address] Poikilocytosis Slight Normal The [facility]ending [facility] Comment on above: Performed By: #### M G, BMP, SCAN CBC ####[address] Polychromasia Slight Normal The [facility]ending [facility] Comment on above: Performed By: #### M G, BMP, SCAN CBC ####[place] [id number] [facility] RBC (Bld) [#/Vol] 3.44 10*6/uL Low 3.90-5.60 The [facility]ending [facility] Comment on above: Performed By: #### M G, BMP, SCAN CBC ####[address] WBC (Bld) [#/Vol] 5.8 10*3/uL Normal 4.1-10.5 The [facility]ending [facility] Comment on above: Performed By: #### M G, BMP, SCAN CBC ####[place] [id number] [facility] Alanine aminotransferase [En zymatic activity/volume] in Serum or PlasmaOrdered By: Christi Wilson on 02-28-2023 ALT [Catalytic activity/Vol] 8 U/L Normal 7-52 [facility] Comment on above: Performed By: #### H S TROP, CMP, CBC, BNP ####[address] Albumin [Mass/volume] in Ser um or Plasma by Bromocresol green (BCG) dye binding methoOrdered By: Christi Wilson on 02-28-2023 Albumin BCG dye [Mass/Vol] 3.5 g/dL 3.5-5.7 [facility] Alkaline phosphatase [Enzyma tic activity/volume] in Serum or PlasmaOrdered By: Christi Wilson on 02-28-2023 ALP [Catalytic activity/Vol] 79 U/L Normal 34-104 [facility] Comment on above: Performed By: #### H S TROP, CMP, CBC, BNP ####[address] Aspartate aminotransferase [ Enzymatic activity/volume] in Serum or PlasmaOrdered By: Christi Wilson on 02-28-2023 AST [Catalytic activity/Vol] 14 U/L Normal 13-39 [facility] Comment on above: Performed By: #### H S TROP, CMP, CBC, BNP ####[address] Automated basophil %Ordered By: Christi Wilson on 02-28-2023 Basophils/100 WBC (Bld) 0.6 % Normal . [facility] Comment on above: Performed By: #### H S TROP, CMP, CBC, BNP ####[address] Automated basophil countOrde red By: Christi Wilson on 02-28-2023 Basophils (Bld) [#/Vol] 0.0 10*3/uL Normal 0.0-0.2 [facility] Comment on above: Result Comment: PERF ORMED BY:[address] [place], [place] [phone] MEDICAL DIRECTORANNIKA NOGUEIRA M.D. Performed By: #### H S TROP, CMP, CBC, BNP ####[facility] [address] Automated blood monocyte cou ntOrdered By: Christi Wilson on 02-28-2023 Monocytes (Bld) [#/Vol] 0.7 10*3/uL Normal 0.0-0.8 [facility] Comment on above: Performed By: #### H S TROP, CMP, CBC, BNP ####[address] Automated eosinophil %Ordere d By: Christi Wilson on 02-28-2023 Eosinophils/100 WBC (Bld) 3.5 % Normal . [facility] Comment on above: Performed By: #### H S TROP, CMP, CBC, BNP ####[address] Automated eosinophil countOr dered By: Christi Wilson on 02-28-2023 Eosinophils (Bld) [#/Vol] 0.2 10*3/uL Normal 0.0-0.45 [facility] Comment on above: Performed By: #### H S TROP, CMP, CBC, BNP ####[address] Automated monocyte %Ordered By: Christi Wilson on 02-28-2023 Monocytes/100 WBC (Bld) 11.1 % Normal . [facility] Comment on above: Performed By: #### H S TROP, CMP, CBC, BNP ####[address] Automated neutrophil %Ordere d By: Christi Wilson on 02-28-2023 Neutrophils/100 WBC (Bld) 61.8 % Normal . [facility] Comment on above: Performed By: #### H S TROP, CMP, CBC, BNP ####[address] BNP ser/plasOrdered By: Lj Wilson on 02-28-2023 Natriuretic peptide B (Bld) [Mass/Vol] 607.0 pg/mL High 5-100 [facility] Comment on above: Result Comment: PERF ORMED BY:[place] [address] [place], [place] [phone] MEDICAL DIRECTORANNIKA NOGUEIRA M.D. Performed By: #### H S TROP, CMP, CBC, BNP ####[place] [address] Bilirubin.total [Mass/volume ] in Serum or PlasmaOrdered By: Christi Wilson on 02-28-2023 Bilirubin [Mass/Vol] 0.5 mg/dL Normal 0.3-1.0 [facility] Comment on above: Performed By: #### H S TROP, CMP, CBC, BNP ####[address] cervical spine wo conon 0 02-28-2023 CT cervical spine wo con Normal [facility] CT head/brain wo conon 02-28 CT head/brain wo con Normal [facility] Calcium [Mass/volume] in Ser um or PlasmaOrdered By: Christi Wilson on 02-28-2023 Calcium [Mass/Vol] 8.8 mg/dL Normal 8.6-10.3 [facility] Comment on above: Performed By: #### H S TROP, CMP, CBC, BNP ####[address] Carbon dioxide, total [Moles /volume] in Serum or PlasmaOrdered By: Christi Wilson on 02-28-2023 CO2 [Moles/Vol] 26.3 mmol/L Normal 21.0-31.0 [facility] Comment on above: Performed By: #### H S TROP, CMP, CBC, BNP ####[address] Chloride [Moles/volume] in S sammy or PlasmaOrdered By: Christi Wilson on 02-28-2023 Chloride [Moles/Vol] 110 mmol/L High 98-107 [facility] Comment on above: Performed By: #### H S TROP, CMP, CBC, BNP ####[address] Complete Blood Count Auto Di ffon 02-28-2023 Mean Corpuscular HGB Conc 32.6 g/dL Normal 32.5-35.6 [facility] Comment on above: Performed By: #### H S TROP, CMP, CBC, BNP ####[place] [id number] [facility] Monocytes/100 WBC (Bld) 19.20 % Normal 0.00-20.00 [facility] Comment on above: Performed By: #### H S TROP, CMP, CBC, BNP ####[address] NRBC% 0.2 /100{WBC} Normal 0-0.5 [facility] Comment on above: Performed By: #### H S TROP, CMP, CBC, BNP ####[place] [id number] [facility] Comprehensive Metabolic Pane negro 02-28-2023 Albumin [Mass/Vol] 3.5 g/dL Normal 3.5-5.7 [facility] Comment on above: Performed By: #### H S TROP, CMP, CBC, BNP ####[address] Creatinine Clr Calc Pharmacy 67.22 Normal [facility] Comment on above: Result Comment: PERF ORMED BY:[address], [place] [phone] MEDICAL JADEN NOGUEIRA M.D. Performed By: #### H S TROP, CMP, CBC, BNP ####[place] [id number] [facility] GFR/1.73 sq M.predicted MDRD (S/P/Bld) [Vol rate/Area] mL/min/{1.73_m2} Normal [facility] Comment on above: Performed By: #### H S TROP, CMP, CBC, BNP ####[place] [id number] [facility] Creatinine [Mass/volume] in Serum or PlasmaOrdered By: Christi Wilson on 02-28-2023 Creatinine [Mass/Vol] 1.07 mg/dL Normal 0.70-1.30 [facility] Comment on above: Performed By: #### H S TROP, CMP, CBC, BNP ####[place] [place] [place] [address] [facility] Dipstick and Microscopicon 0 02-28-2023 Appearance (U) Clear Normal Clear [facility] Comment on above: Order Comment: Name Collection Type:: Clean-Voided Midstream Performed By: #### A DDONUAPLUS ####[address] [address] [facility] Bacteria,Urine None Seen Normal None Seen [facility] Comment on above: Order Comment: Name Collection Type:: Clean-Voided Midstream Performed By: #### A DDONUAPLUS ####[address] [address] [facility] Bilirubin,Urine Negative Normal Negative [facility] Comment on above: Order Comment: Name Collection Type:: Clean-Voided Midstream Performed By: #### A DDONUAPLUS ####[address] [address] [facility] Color (U) Yellow Normal Yellow [facility] Comment on above: Order Comment: Name Collection Type:: Clean-Voided Midstream Performed By: #### A DDONUAPLUS ####[address] [address] [facility] Glucose Ql (U) Normal Normal Normal [facility] Comment on above: Order Comment: Name Collection Type:: Clean-Voided Midstream Performed By: #### A DDONUAPLUS ####[address] [address] [facility] Hyaline Casts,Urine 0-8 Normal 0-8 [facility] Comment on above: Order Comment: Name Collection Type:: Clean-Voided Midstream Result Comment: PERF ORMED BY:[address] [place], [place] [phone] MEDICAL DIRECTORANNIKA NOGUEIRA M.D. Performed By: #### A DDONUAPLUS ####[place] [address] [place] [address] [facility] Ketones Ql (U) Negative Normal Negative [facility] Comment on above: Order Comment: Name Collection Type:: Clean-Voided Midstream Performed By: #### A DDONUAPLUS ####[address] [address] [facility] Leukocyte esterase Test strip Ql (U) Negative Normal Negative [facility] Comment on above: Order Comment: Name Collection Type:: Clean-Voided Midstream Performed By: #### A DDONUAPLUS ####[address] [address] [place] Nitrite,Urine Negative Normal Negative The [facility]ending [facility] Comment on above: Order Comment: Name Collection Type:: Clean-Voided Midstream Performed By: #### A DDONUAPLUS ####[address] [address] [facility] Occult Blood,Urine Trace High Negative The [facility]ending [facility] Comment on above: Order Comment: Name Collection Type:: Clean-Voided Midstream Result Comment: PERF ORMED BY:[address] [place], [place] [phone] MEDICAL JADEN NOGUEIRA M.D. Performed By: #### A DDONUAPLUS ####[address] [address] [facility] pH (U) 6.0 [pH] Normal 5.0-9.0 The [facility] Comment on above: Order Comment: Name Collection Type:: Clean-Voided Midstream Performed By: #### A DDONUAPLUS ####[address] [address] [place] Protein,Urine >=300 High Negative The [facility]ending [facility] Comment on above: Order Comment: Name Collection Type:: Clean-Voided Midstream Performed By: #### A DDONUAPLUS ####[address] [address] [place] RBC LM.HPF (Urine sed) [#/Area] 0 /[HPF] Normal 0-4 The [facility] Comment on above: Order Comment: Name Collection Type:: Clean-Voided Midstream Performed By: #### A DDONUAPLUS ####[address] Specificy [place],Urine 1.030 Normal 1.001-1.03 0 The [facility]ending [facility] Comment on above: Order Comment: Name Collection Type:: Clean-Voided Midstream Performed By: #### A DDONUAPLUS ####[address] Squamous Epithelial Cell,Urine None Seen Normal 0-2 The [facility]ending [facility] Comment on above: Order Comment: Name Collection Type:: Clean-Voided Midstream Performed By: #### A DDONUAPLUS ####[address] Urobilinogen,Urine Normal Normal Normal The [facility]ending [facility] Comment on above: Order Comment: Name Collection Type:: Clean-Voided Midstream Performed By: #### A DDONUAPLUS ####[address] WBC LM.HPF (Urine sed) [#/Area] 0 /[HPF] Normal 0-4 The [facility]ending [facility] Comment on above: Order Comment: Name Collection Type:: Clean-Voided Midstream Performed By: #### A DDONUAPLUS ####[address] ECG 12 lead ECGon 02-28-2023 ECG 12 lead ECG Normal The [facility]ending [facility] Erythrocyte distribution wid th [Ratio] by Automated countOrdered By: Christi Wilson on 02-28-2023 Erythrocyte distribution width (RBC) [Ratio] 14.8 % Normal 12.0-14.8 [facility] Comment on above: Performed By: #### H S TROP, CMP, CBC, BNP ####[address] Erythrocytes [#/volume] in B lood by Automated countOrdered By: Christi Wilson on 02-28-2023 RBC (Bld) [#/Vol] 3.48 10*6/uL Low 3.90-5.60 [facility] Comment on above: Performed By: #### H S TROP, CMP, CBC, BNP ####[place] [address] Glucose [Mass/volume] in Ser um or PlasmaOrdered By: Christi Wilson on 02-28-2023 Glucose [Mass/Vol] 108 mg/dL High 70-100 [facility] Comment on above: ADA recommended refe rence rangeRandom Glucose Reference Range is dependent on time and content of last meal. Glucose of more than 200 mg/dL in a nonstressed, ambulatory subject supports the diagnosis of Diabetes Mellitus. Result Comment: [place] Glucose Reference Range is dependent on time and content of last meal. Glucose of more than 200 mg/dL in a nonstressed, ambulatory subject supports the diagnosis of Diabetes Mellitus. ADA recommended reference range Performed By: #### H S TROP, CMP, CBC, BNP ####[place] [address] Hematocrit [Volume Fraction] of Blood by Automated countOrdered By: Christi Wilson on 02-28-2023 Hematocrit (Bld) [Volume fraction] 34.9 % Low 38.8-50.0 [facility] Comment on above: Performed By: #### H S TROP, CMP, CBC, BNP ####[facility] [place] [id number] [facility] Hemoglobin [Mass/volume] in BloodOrdered By: Christi Wilson on 02-28-2023 Hemoglobin (Bld) [Mass/Vol] 11.4 g/dL Low 13.0-17.0 [facility] Comment on above: Performed By: #### H S TROP, CMP, CBC, BNP ####[place] [id number] [facility] Leukocytes [#/volume] correc michelle for nucleated erythrocytes in Blood by Automated counOrdered By: Christi Wilson on 02-28-2023 WBC corrected for nucl RBC Auto (Bld) [#/Vol] 6.3 10*3/uL 4.1-10.5 [facility] Leukocytes [#/volume] in Blo od by Automated countOrdered By: Christi Wilson on 02-28-2023 WBC (Bld) [#/Vol] 6.3 10*3/uL Normal 4.1-10.5 [facility] Comment on above: Performed By: #### H S TROP, CMP, CBC, BNP ####[address] Lymphocytes [#/volume] in Bl ood by Automated countOrdered By: Christi Wilson on 02-28-2023 Lymphocytes (Bld) [#/Vol] 1.4 10*3/uL Normal 1.00-4.8 [facility] Comment on above: Performed By: #### H S TROP, CMP, CBC, BNP ####[address] Lymphocytes/100 leukocytes i n Blood by Automated countOrdered By: Christi Wilson on 02-28-2023 Lymphocytes/100 WBC (Bld) 23.0 % Normal . [facility] Comment on above: Performed By: #### H S TROP, CMP, CBC, BNP ####[address] MCH [Entitic mass] by Automa michelle countOrdered By: Christi Wilson on 02-28-2023 MCH (RBC) [Entitic mass] 32.7 pg Normal 27.5-35.2 [facility] Comment on above: Performed By: #### H S TROP, CMP, CBC, BNP ####[address] MCHC Auto (RBC) [Mass/Vol]Or dered By: Christi Wilson on 02-28-2023 MCHC (RBC) [Mass/Vol] 32.6 g/dL 32.5-35.6 [facility] MCV [Entitic volume] by Auto mated countOrdered By: Christi Wilson on 02-28-2023 MCV (RBC) [Entitic vol] 100.3 fL Normal 83.5-101 [facility] Comment on above: Performed By: #### H S TROP, CMP, CBC, BNP ####[address] Monocyte distribution width [Entitic volume] in Blood by AutomatedOrdered By: Christi Wilson on 02-28-2023 Monocyte distribution width Auto (Bld) [Entitic vol] 19.20 % 0.00-20.00 [facility] Neutrophils [#/volume] in Bl ood by Automated countOrdered By: Christi Wilson on 02-28-2023 Neutrophils (Bld) [#/Vol] 3.9 10*3/uL Normal 1.8-7.7 [facility] Comment on above: Performed By: #### H S TROP, CMP, CBC, BNP ####[address] No Panel InformationOrdered By: Christi Wilson on 02-28-2023 Estimated GFR (CKD-EPI) > 60.0 mL/Min [facility] Creatinine Clearance (Chem 67.22 [facility] Nucleated erythrocytes [Pres ence] in Blood by Automated countOrdered By: Christi Wilson on 02-28-2023 Nucleated RBC Auto Ql (Bld) 0.2 /100{WBC} 0-0.5 [facility] Platelet mean volume [Entiti c volume] in Blood by Automated countOrdered By: Christi Wilson on 02-28-2023 Platelet mean volume (Bld) [Entitic vol] 9.7 fL Normal 6.6-10.1 [facility] Comment on above: Performed By: #### H S TROP, CMP, CBC, BNP ####[address] Platelets [#/volume] in Bloo d by Automated countOrdered By: Christi Wilson on 02-28-2023 Platelets (Bld) [#/Vol] 137 10*3/uL Low 150-450 [facility] Comment on above: Performed By: #### H S TROP, CMP, CBC, BNP ####[address] Potassium [Moles/volume] in Serum or PlasmaOrdered By: Christi Wilson on 02-28-2023 Potassium [Moles/Vol] 3.8 mmol/L Normal 3.5-5.1 [facility] Comment on above: Performed By: #### H S TROP, CMP, CBC, BNP ####[place] [address] [place] [address] [facility] Protein Creat Ratio Ur Rando mon 02-28-2023 Creatinine, Urine (Random) 148.0 mg/dL High 14.0-26.0 [facility] Comment on above: Order Comment: Comme nt Add on to yesterday's UA if possible Performed By: #### U RTP, PROCRERAT ####[place] [address] [place] [address] [facility] Protein (U) [Mass/Vol] 468 mg/dL High 0-9 e Pending [facility] Comment on above: Order Comment: Comme nt Add on to yesterday's UA if possible Performed By: #### U RTP, PROCRERAT ####[address] [address] [facility] Result Comment: PERF ORMED BY:[address] [place], [place] [phone] MEDICAL DIRECTORANNIKA NOGUEIRA M.D. Urine Protein/Creatinine Ratio 3162 mg/g{Cre} High 0-200 The [facility]ending [facility] Comment on above: Order Comment: Comme nt Add on to yesterday's UA if possible Performed By: #### U RTP, PROCRERAT ####[address] [address] [facility] Protein [Mass/volume] in Ser um or PlasmaOrdered By: Christi Wilson on 02-28-2023 Protein [Mass/Vol] 7.2 g/dL Normal 6.4-8.9 [facility] Comment on above: Performed By: #### H S TROP, CMP, CBC, BNP ####[address] [address] [facility] Serum globulin measurement b y calculation (mass/volume)Ordered By: Christi Wilson on 02-28-2023 Globulin (S) [Mass/Vol] 3.7 g/dL [facility] Comment on above: Performed By: #### H S TROP, CMP, CBC, BNP ####[place] [id number] [facility] Serum or plasma albumin/glob ulin mass ratioOrdered By: Christi Wilson on 02-28-2023 Albumin/Globulin [Mass ratio] 0.9 {ratio} [facility] Comment on above: Performed By: #### H S TROP, CMP, CBC, BNP ####[place] [id number] [facility] Serum or plasma anion gap de terminationOrdered By: Christi Wilson on 02-28-2023 Anion gap [Moles/Vol] 9.5 mmol/L Normal 6.0-15.0 [facility] Comment on above: Performed By: #### H S TROP, CMP, CBC, BNP ####[address] Sodium [Moles/volume] in Ser um or PlasmaOrdered By: Christi Wilson on 02-28-2023 Sodium [Moles/Vol] 142 mmol/L Normal 136-145 [facility] Comment on above: Performed By: #### H S TROP, CMP, CBC, BNP ####[place] [id number] [facility] Troponin I High Sensitivityo n 02-28-2023 Troponin I High Sensitivity 108.4 pg/mL Off scale high 0.0-20.0 The [facility]ending [facility] Comment on above: Result Comment: Crit ical Result : Called to and read back by: NIEVES TILLEY at: 02/28/2023 18:06:31 by:ELIZABETHPERFORMED BY:[address]EMIL[address] [place]OMASPRIMM SPR[place], [place] [phone] MEDICAL DIRECTORANNIKA NOGUEIRA M.D. Performed By: #### H S TROP ####[place] [id number] [facility] Troponin I High Sensitivity 102.9 pg/mL Off scale high 0.0-20.0 The [facility] Comment on above: Result Comment: Crit ical Result : Called to and read back by: SERINA SHERMAN at: 02/28/2023 16:33:10 by:MORENOFORMED BY:[facility] [place] [address] [place], [place] [phone] MEDICAL DIRECTORANNIKA NOGUEIRA M.D. Performed By: #### H S TROP, CMP, CBC, BNP ####[facility] [place] [address] [facility] Troponin I.cardiac [Mass/vol ume] in Serum or Plasma by Detection limit <= 0.01 ng/Ordered By: Christi Wilson on 02-28-2023 Troponin I.cardiac DL <= 0.01 ng/mL [Mass/Vol] 108.4 pg/mL 0.0-20.0 [facility] Comment on above: Critical Result : Ca lled to and read back by: NIEVES TILLEY at: 02/28/2023 18:06:31 by:ELIZABETH Urea nitrogen [Mass/volume] in Serum or PlasmaOrdered By: Christi Wilson on 02-28-2023 Urea nitrogen [Mass/Vol] 13 mg/dL Normal 7-25 [facility] Comment on above: Performed By: #### H S TROP, CMP, CBC, BNP ####[place] [address] [place] [address] [facility] XR shoulder LT min 2V*on XR shoulder LT min 2V* Normal Th e Pending [facility] US.doppler Carotid arteries - bilateralon 02-16-2023 [place] [address] and Vascular Lab Report [facility] US CAROTID ARTERY DUPLEX BILATERAL Patient Name: HILARY MALDONADO Reading Physician: [id number] González Castillo MD, RPVI Study Date: 02/16/2023 Ordering Physician: [id number] OLSON MRN/PID: [id number] Technologist: Pollo Petty RVPoonam Technologist 2: Date of /Age: 12 1945 / 78 years Gender: M Admission Status: Outpatient Location Performed: [facility] Diagnosis/ICD: Occlusion and stenosis of right carotid artery-I65.21 CPT Codes: 12991 Cerebrovascular Carotid Duplex scan complete Patient History [...] Subclavian 199 cm/s Right ICA/CCA Ratio 2.9 [id number] SOWMYA Delgado MD Final González Espinoza M D - 02/16/2023 [place] [address] and Vascular Lab Report [facility] US CAROTID ARTERY DUPLEX BILATERAL Patient Name: HILARY Andrew ELVIS Reading Physician: [id number] SOWMYA Delgado MD Study Date: 02/16/2023 Ordering Physician: [id number] OLSON MRN/PID: [id number] Technologist: Pollo Petty Poonam Technologist 2: Date of /Age: 12 1945 / 78 years Gender: M Admission Status: Outpatient Location Performed: [facility] Diagnosis/ICD: Occlusion and stenosis of right carotid artery-I65.21 CPT Codes: 85206 Cerebrovascular Carotid Duplex scan complete Patient History [...] Subclavian 199 cm/s Right ICA/CCA Ratio 2.9 [id number] González Castillo MD, RPVI Final [facility] Work Phone: Radiology Study observation (narrative) [facility] Work Phone: US.doppler Carotid arteries - bilateralOrdered By: González Castillo on 02-16-2023 [facility] Work Phone: NUCLEAR STRESS TESTon 2022 NUCLEAR STRESS TEST Interpreted By: Manjinder Galloway, Imelda Quintana STUDY: MYOCARDIAL PERFUSION STRESS TEST WITH LEXISCAN Performing facility: [facility], [address] [place] [address], [address], [place] [id number] [facility] Provider: Manjinder Galloway MD PCP: Dr. Celaya Supervising provider: Sharlene Camargo DO, FACC INDICATION: CAD; ICM RCS Pre-operative risk assessment for Carotid scheduled at [facility] on TBD. HISTORY: Gender: M; Age: 77 y/o ; Height: cm; Weight: kg. CAD; High Cholesterol; HTN; Quit smoking recently . Cardiac catheterization on 2001. PTCA on 2001. COMPARISON: Previous nuclear testing completed [id number] at [facility]. ACCESSION NUMBER(S): [id number] ORDERING CLINICIAN: MANJINDER GALLOWAY TECHNIQUE: ONE DAY [...] Manjinder Galloway 01/27/2023 2:29 PM Dictation workstation: [id number] [facility] CT angio headon 12-23-2022 CT angio head Normal [facility] US carotid doppler BIon 11-1 US carotid doppler BI Normal The [facility] ECG 12 lead ECGon 11-09-2023 ECG 12 lead ECG Normal The [facility]ending [facility] Automated basophil %Ordered By: Celeste Alfonso on 12-21-2022 Basophils/100 WBC (Bld) 0.4 % Normal . [facility] Comment on above: Performed By: #### C BC, BMP ####[address] Automated basophil countOrde red By: Celeste Alfonso on 12-21-2022 Basophils (Bld) [#/Vol] 0.0 10*3/uL Normal 0.0-0.2 [facility] Comment on above: Result Comment: PERF ORMED BY:[address] [place], [place] [phone] MEDICAL DIRECTORANNIKA NOGUEIRA M.D. Performed By: #### C FLAVIO, BMP ####[address] Automated blood monocyte cou ntOrdered By: Celeste Alfonso on 12-21-2022 Monocytes (Bld) [#/Vol] 0.8 10*3/uL Normal 0.0-0.8 [facility] Comment on above: Performed By: #### C FLAVIO, BMP ####[address] Automated eosinophil %Ordere d By: Celeste Alfonso on 12-21-2022 Eosinophils/100 WBC (Bld) 4.6 % Normal . [facility] Comment on above: Performed By: #### C FLAVIO, BMP ####[address] Automated eosinophil countOr dered By: Celeste Alfonso on 12-21-2022 Eosinophils (Bld) [#/Vol] 0.4 10*3/uL Normal 0.0-0.45 [facility] Comment on above: Performed By: #### C BC, BMP ####[address] Automated monocyte %Ordered By: Celeste Kaden on 12-21-2022 Monocytes/100 WBC (Bld) 8.9 % Normal . [facility] Comment on above: Performed By: #### C BC, BMP ####[address] [address] [facility] Automated neutrophil %Ordere d By: Celeste Alfonso on 12-21-2022 Neutrophils/100 WBC (Bld) 57.9 % Normal . [facility] Comment on above: Performed By: #### C BC, BMP ####[address] [address] [facility] Basic Metabolic Panelon 11-0 Creatinine Clr Calc Pharmacy 63.87 Normal The [facility]ending [facility] Comment on above: Result Comment: PERF ORMED BY:[address] [place], [place] [phone] MEDICAL DIRECTORANNIKA NOGUEIRA M.D. Performed By: #### C BC, BMP ####[address] [address] [facility] GFR/1.73 sq M.predicted MDRD (S/P/Bld) [Vol rate/Area] mL/min/{1.73_m2} Normal The [facility]ending [facility] Comment on above: Performed By: #### C BC, BMP ####[address] [address] [facility] Calcium [Mass/volume] in Ser um or PlasmaOrdered By: Celeste Alfonso on 12-21-2022 Calcium [Mass/Vol] 8.1 mg/dL Low 8.6-10.3 [facility] Comment on above: Performed By: #### C BC, BMP ####[address] [address] [facility] Carbon dioxide, total [Moles /volume] in Serum or PlasmaOrdered By: Celeste Alfonso on 12-21-2022 CO2 [Moles/Vol] 26.7 mmol/L Normal 21.0-31.0 [facility] Comment on above: Performed By: #### C BC, BMP ####[address] [address] [facility] Chloride [Moles/volume] in S sammy or PlasmaOrdered By: Celeste Alfonso on 12-21-2022 Chloride [Moles/Vol] 106 mmol/L Normal 98-107 [facility] Comment on above: Performed By: #### C BC, BMP ####[address] Complete Blood Count Auto Di ffon 12-21-2022 Mean Corpuscular HGB Conc 33.1 g/dL Normal 32.5-35.6 The [facility] Comment on above: Performed By: #### C BC, BMP ####[place] [address] NRBC% 0.1 /100{WBC} Normal 0-0.5 The [facility]ending [facility] Comment on above: Performed By: #### C BC, BMP ####[address] Creatinine [Mass/volume] in Serum or PlasmaOrdered By: Celeste Alfonso on 12-21-2022 Creatinine [Mass/Vol] 1.08 mg/dL Normal 0.70-1.30 [facility] Comment on above: Performed By: #### C BC, BMP ####[address] ECG 12 lead ECGon 12-21-2022 ECG 12 lead ECG Normal The [facility]ending [facility] Erythrocyte distribution wid th [Ratio] by Automated countOrdered By: Celeste Alfonso on 12-21-2022 Erythrocyte distribution width (RBC) [Ratio] 15.9 % High 12.0-14.8 [facility] Comment on above: Performed By: #### C BC, BMP ####[address] Erythrocytes [#/volume] in B lood by Automated countOrdered By: Celeste Alfonso on 12-21-2022 RBC (Bld) [#/Vol] 3.78 10*6/uL Low 3.90-5.60 [facility] Comment on above: Performed By: #### C BC, BMP ####[place] [address] [place] [address] [facility] Glucose [Mass/volume] in Ser um or PlasmaOrdered By: Celeste Alfonso on 12-21-2022 Glucose [Mass/Vol] 83 mg/dL Normal 70-100 [facility] Comment on above: ADA recommended refe rence rangeRandom Glucose Reference Range is dependent on time and content of last meal. Glucose of more than 200 mg/dL in a nonstressed, ambulatory subject supports the diagnosis of Diabetes Mellitus. Result Comment: [place] Glucose Reference Range is dependent on time and content of last meal. Glucose of more than 200 mg/dL in a nonstressed, ambulatory subject supports the diagnosis of Diabetes Mellitus. ADA recommended reference range Performed By: #### C FLAVIO, BMP ####[place] [id number] [facility] Hematocrit [Volume Fraction] of Blood by Automated countOrdered By: Celeste Alfonso on 12-21-2022 Hematocrit (Bld) [Volume fraction] 38.4 % Low 38.8-50.0 [facility] Comment on above: Performed By: #### C FLAVIO, BMP ####[place] [id number] [facility] Hemoglobin [Mass/volume] in BloodOrdered By: Celeste Alfonso on 12-21-2022 Hemoglobin (Bld) [Mass/Vol] 12.7 g/dL Low 13.0-17.0 [facility] Comment on above: Performed By: #### C FLAVIO, BMP ####[place] [id number] [facility] Leukocytes [#/volume] correc michelle for nucleated erythrocytes in Blood by Automated counOrdered By: Celeste Alfonso on 12-21-2022 WBC corrected for nucl RBC Auto (Bld) [#/Vol] 9.2 10*3/uL 4.1-10.5 [facility] Leukocytes [#/volume] in Blo od by Automated countOrdered By: Celeste Alfonso on 12-21-2022 WBC (Bld) [#/Vol] 9.2 10*3/uL Normal 4.1-10.5 [facility] Comment on above: Performed By: #### C BC, BMP ####[address] Lymphocytes [#/volume] in Bl ood by Automated countOrdered By: Celeste Alfonso on 12-21-2022 Lymphocytes (Bld) [#/Vol] 2.6 10*3/uL Normal 1.00-4.8 [facility] Comment on above: Performed By: #### C BC, BMP ####[address] Lymphocytes/100 leukocytes i n Blood by Automated countOrdered By: Celeste Alfonso on 12-21-2022 Lymphocytes/100 WBC (Bld) 28.2 % Normal . [facility] Comment on above: Performed By: #### C BC, BMP ####[address] MCH [Entitic mass] by Automa michelle countOrdered By: Celeste Alfonso on 12-21-2022 MCH (RBC) [Entitic mass] 33.6 pg Normal 27.5-35.2 [facility] Comment on above: Performed By: #### C BC, BMP ####[address] MCHC Auto (RBC) [Mass/Vol]Or dered By: Celeste Alfonso on 12-21-2022 MCHC (RBC) [Mass/Vol] 33.1 g/dL 32.5-35.6 [facility] MCV [Entitic volume] by Auto mated countOrdered By: Celeste Alfonso on 12-21-2022 MCV (RBC) [Entitic vol] 101.4 fL High 83.5-101 [facility] Comment on above: Performed By: #### C BC, BMP ####[address] Neutrophils [#/volume] in Bl ood by Automated countOrdered By: Celeste Alfonso on 12-21-2022 Neutrophils (Bld) [#/Vol] 5.3 10*3/uL Normal 1.8-7.7 [facility] Comment on above: Performed By: #### C FLAVIO, BMP ####[place] [address] No Panel InformationOrdered By: Celeste Alfonso on 12-21-2022 Estimated GFR (CKD-EPI) > 60.0 mL/Min [facility] Creatinine Clearance (Chem 63.87 [facility] Nucleated erythrocytes [Pres ence] in Blood by Automated countOrdered By: Celeste Alfonso on 12-21-2022 Nucleated RBC Auto Ql (Bld) 0.1 /100{WBC} 0-0.5 [facility] Platelet mean volume [Entiti c volume] in Blood by Automated countOrdered By: Celeste Alfonso on 12-21-2022 Platelet mean volume (Bld) [Entitic vol] 9.6 fL Normal 6.6-10.1 [facility] Comment on above: Performed By: #### C FLAVIO, BMP ####[place] [address] Platelets [#/volume] in Bloo d by Automated countOrdered By: Celeste Alfonso on 12-21-2022 Platelets (Bld) [#/Vol] 126 10*3/uL Low 150-450 [facility] Comment on above: Performed By: #### C FLAVIO, BMP ####[address] Potassium [Moles/volume] in Serum or PlasmaOrdered By: Celeste Alfonso on 12-21-2022 Potassium [Moles/Vol] 3.4 mmol/L Low 3.5-5.1 [facility] Comment on above: Performed By: #### C FLAVIO, BMP ####[address] Serum or plasma anion gap de terminationOrdered By: Celeste Alfonso on 12-21-2022 Anion gap [Moles/Vol] 9.7 mmol/L Normal 6.0-15.0 [facility] Comment on above: Performed By: #### C BC, BMP ####[place] [address] [place] [id number] [place] [facility] Sodium [Moles/volume] in Ser um or PlasmaOrdered By: Celeste Alfonso on 12-21-2022 Sodium [Moles/Vol] 139 mmol/L Normal 136-145 [facility] Comment on above: Performed By: #### C FLAVIO, BMP ####[place] [id number] [facility] Urea nitrogen [Mass/volume] in Serum or PlasmaOrdered By: Celeste Alfonso on 12-21-2022 Urea nitrogen [Mass/Vol] 16 mg/dL Normal 7-25 [facility] Comment on above: Performed By: #### C FLAVIO, BMP ####[id number] [place] [id number] [facility] Amphetamine Screen Ql (U)Ord ered By: Hudson Patel on 12-20-2022 Amphetamines Ql (U) Negative Negative [facility] Automated erythrocytes count in urine sediment (number/area)Ordered By: Hudson Patel on 12-20-2022 RBC Auto (Urine sed) [#/Area] 5-9 [HPF] 0-4 [facility] Automated leukocytes count i n urine sediment (number/area)Ordered By: Hudson Patel on 12-20-2022 WBC Auto (Urine sed) [#/Area] 5-9 [HPF] 0-4 [facility] Automated urine color determ inationOrdered By: Hudson Patel on 12-20-2022 Color (U) Dark yellow Critically abnormal Yellow [facility] Comment on above: Order Comment: Name Collection Type:: Clean-Voided Midstream Performed By: #### A DDONUAPLUS, URDS ####[place] [id number] [place] [id number] [facility] Barbiturates [Presence] in U rine by Screen methodOrdered By: Hudson Patel on 12-20-2022 Barbiturates Screen Ql (U) Negative Negative [facility] Basic Metabolic Panelon 11-0 7-2023 Anion gap [Moles/Vol] 11.3 mmol/L Normal 6.0-15.0 Th e Pending Sale To [facility] Comment on above: Performed By: #### L IPIDMATY, CBC ####[address] Calcium [Mass/Vol] 8.2 mg/dL Low 8.6-10.3 The Pending [facility] To [facility] Comment on above: Performed By: #### L IPID BMP, CBC ####[address] Chloride [Moles/Vol] 106 mmol/L Normal 98-107 The Pending [facility] To [facility] Comment on above: Performed By: #### L IPMATY CARPENTER, CBC ####[address] CO2 [Moles/Vol] 26.2 mmol/L Normal 21.0-31.0 The Pending [facility] To [facility] Comment on above: Performed By: #### L IPMATY CARPENTER, CBC ####[address] Creatinine [Mass/Vol] 1.00 mg/dL Normal 0.70-1.30 The Pending [facility] To [facility] Comment on above: Performed By: #### L MATY ABBASI, CBC ####[address] Creatinine Clr Calc Pharmacy 68.98 Normal The Pending [facility] To [facility] Comment on above: Performed By: #### L IPMATY CARPENTER, CBC ####[address] GFR/1.73 sq M.predicted MDRD (S/P/Bld) [Vol rate/Area] mL/min/{1.73_m2} Normal The Pending [facility] To [facility] Comment on above: Performed By: #### L IPJAYDEN BMP, CBC ####[address] Glucose [Mass/Vol] 106 mg/dL High 70-100 The Pending [facility] To [facility] Comment on above: Result Comment: [place] Glucose Reference Range is dependent on time and content of last meal. Glucose of more than 200 mg/dL in a nonstressed, ambulatory subject supports the diagnosis of Diabetes Mellitus. ADA recommended reference range Performed By: #### L IPID, BMP, CBC ####[facility] [id number] Potassium [Moles/Vol] 3.5 mmol/L Normal 3.5-5.1 The Pending [facility] To [facility] Comment on above: Performed By: #### L IPID, BMP, CBC ####[facility] [id number] [address] Sodium [Moles/Vol] 140 mmol/L Normal 136-145 The Pending Sale To [facility] Comment on above: Performed By: #### L IPID, BMP, CBC ####[facility] [id number] [address] Urea nitrogen [Mass/Vol] 14 mg/dL Normal 7-25 The Pending Sale To [facility] Comment on above: Performed By: #### L IPID, BMP, CBC ####[facility] [id number] [address] Benzodiazepines Screen Ql (U )Ordered By: Hudson Patel on 12-20-2022 Benzodiazepines Ql (U) Negative Negative [facility] Benzoylecgonine [Presence] i n Urine by Screen methodOrdered By: Hudson Patel on 12-20-2022 Benzoylecgonine Screen Ql (U) Negative Negative [facility] Bilirubin Test strip Ql (U)O rdered By: Hudson Patel on 12-20-2022 Bilirubin Ql (U) Negative Negative [facility] Cannabinoids [Presence] in U rine by Screen methodOrdered By: Hudson Patel on 12-20-2022 Cannabinoids Screen Ql (U) Negative Negative [facility] Comment on above: These are unconfirme [...] Performed By: #### L IPID, BMP, CBC ####[address] [address] [facility] Cholesterol in LDL Calc [Mas s/Vol]Ordered By: Celeste Alfonso on 12-20-2022 Cholesterol in LDL [Mass/Vol] 63 mg/dL 0-100 [facility] Comment on above: LDL ATP III CLASSIFI CATIONLDL less than 100 mg/dL OptimalLDL 100-129 mg/dL Near or above optimalLDL 130-159 mg/dL Borderline highLDL 160-189 mg/dL HighLDL greater than 189 mg/dL Very high Cholesterol in VLDL Calc [Ma ss/Vol]Ordered By: Celeste Alfonso on 12-20-2022 Cholesterol in VLDL [Mass/Vol] 18 mg/dL [facility] Complete Blood Count Auto Di ffon 12-20-2022 Basophils (Bld) [#/Vol] 0.1 10*3/uL Normal 0.0-0.2 The Pending [facility] To [facility] Comment on above: Result Comment: PERF ORMED BY:[address] [place], [place] [phone] MEDICAL DIRECTORANNIKA NOGUEIRA M.D. Performed By: #### L IPID, BMP, CBC ####[place] [id number] [place] Basophils/100 WBC (Bld) 0.6 % Normal . The Pending [facility] To [facility] Comment on above: Performed By: #### L IPID, BMP, CBC ####[place] [id number] [facility] Eosinophils (Bld) [#/Vol] 0.3 10*3/uL Normal 0.0-0.45 The Pending [facility] To [facility] Comment on above: Performed By: #### L IPID, BMP, CBC ####[address] Eosinophils/100 WBC (Bld) 3.5 % Normal . The Pending [facility] To [facility] Comment on above: Performed By: #### L IPID, BMP, CBC ####[address] Erythrocyte distribution width (RBC) [Ratio] 16.0 % High 12.0-14.8 The Pending [facility] To [facility] Comment on above: Performed By: #### L IPID, BMP, CBC ####[address] Hematocrit (Bld) [Volume fraction] 41.0 % Normal 38.8-50.0 The Pending [facility] Comment on above: Performed By: #### L IPID, BMP, CBC ####[address] Hemoglobin (Bld) [Mass/Vol] 13.6 g/dL Normal 13.0-17.0 The Pending [facility] Comment on above: Performed By: #### L IPID, BMP, CBC ####[address] Lymphocytes (Bld) [#/Vol] 2.0 10*3/uL Normal 1.00-4.8 The Pending [facility] To [facility] Comment on above: Performed By: #### L IPID, BMP, CBC ####[address] Lymphocytes/100 WBC (Bld) 21.8 % Normal . The Pending [facility] Comment on above: Performed By: #### L IPID, BMP, CBC ####[address] MCH (RBC) [Entitic mass] 33.4 pg Normal 27.5-35.2 The Pending [facility] Comment on above: Performed By: #### L IPID, BMP, CBC ####[address] MCV (RBC) [Entitic vol] 100.5 fL Normal 83.5-101 The Pending [facility] Comment on above: Performed By: #### L IPID, BMP, CBC ####[address] Mean Corpuscular HGB Conc 33.2 g/dL Normal 32.5-35.6 The Pending [facility] To [facility] Comment on above: Performed By: #### L IPID, BMP, CBC ####[address] Monocytes (Bld) [#/Vol] 0.9 10*3/uL High 0.0-0.8 The Pending [facility] To [facility] Comment on above: Performed By: #### L IPID, BMP, CBC ####[address] Monocytes/100 WBC (Bld) 10.0 % Normal . The Pending [facility] To [facility] Comment on above: Performed By: #### L IPID, BMP, CBC ####[address] Neutrophils (Bld) [#/Vol] 5.7 10*3/uL Normal 1.8-7.7 The Pending [facility] Comment on above: Performed By: #### L IPID, BMP, CBC ####[address] Neutrophils/100 WBC (Bld) 64.1 % Normal . The Pending [facility] Comment on above: Performed By: #### L IPID, BMP, CBC ####[address] NRBC% 0.2 /100{WBC} Normal 0-0.5 The Pending [facility] Comment on above: Performed By: #### L IPID, BMP, CBC ####[address] Platelet mean volume (Bld) [Entitic vol] 10.6 fL High 6.6-10.1 The Pending [facility] Comment on above: Performed By: #### L IPID, BMP, CBC ####[address] Platelets (Bld) [#/Vol] 158 10*3/uL Normal 150-450 The [facility]ending [facility] Comment on above: Performed By: #### L IPID, BMP, CBC ####[address] RBC (Bld) [#/Vol] 4.08 10*6/uL Normal 3.90-5.60 The Pending [facility] Comment on above: Performed By: #### L IPID, BMP, CBC ####[place] [id number] [facility] WBC (Bld) [#/Vol] 9.0 10*3/uL Normal 4.1-10.5 The Pending [facility] To [facility] Comment on above: Performed By: #### L IPID, BMP, CBC ####[address] Dipstick and Microscopicon 1 02-19-2022 Appearance (U) Clear Normal Clear The [facility]ending [facility] Comment on above: Order Comment: Name Collection Type:: Clean-Voided Midstream Performed By: #### A DDONUAPLUS, URDS ####[place] [id number] [facility] Bacteria,Urine None Seen Normal None Seen The [facility]ending [facility] Comment on above: Order Comment: Name Collection Type:: Clean-Voided Midstream Performed By: #### A DDONUAPLUS, URDS ####[place] [id number] [facility] Bilirubin,Urine Negative Normal Negative The Pending [facility] Comment on above: Order Comment: Name Collection Type:: Clean-Voided Midstream Performed By: #### A DDONUAPLUS, URDS ####[place] [id number] [facility] Glucose Ql (U) Normal Normal Normal The Pending [facility] To [facility] Comment on above: Order Comment: Name Collection Type:: Clean-Voided Midstream Performed By: #### A DDONUAPLUS, URDS ####[place] [id number] [facility] Hyaline Casts,Urine 0-8 Normal 0-8 The Pending [facility] To [facility] Comment on above: Order Comment: Name Collection Type:: Clean-Voided Midstream Result Comment: PERF ORMED BY:[place] [place], [place] [phone] MEDICAL DIRECTORANNIKA NOGUEIRA M.D. Performed By: #### A DDONUAPLUS, URDS ####[place] [id number] [facility] Ketones Ql (U) Trace High Negative The Pending [facility] To [facility] Comment on above: Order Comment: Name Collection Type:: Clean-Voided Midstream Performed By: #### A DDONUAPLUS, URDS ####[place] [id number] [facility] Leukocyte esterase Test strip Ql (U) Negative Normal Negative The Pending [facility] To [facility] Comment on above: Order Comment: Name Collection Type:: Clean-Voided Midstream Performed By: #### A DDONUAPLUS, URDS ####[place] [id number] [facility] Nitrite,Urine Negative Normal Negative The Pending [facility] To [facility] Comment on above: Order Comment: Name Collection Type:: Clean-Voided Midstream Performed By: #### A DDONUAPLUS, URDS ####[place] [id number] [facility] Occult Blood,Urine 1+ High Negative The Pending [facility] Comment on above: Order Comment: Name Collection Type:: Clean-Voided Midstream Result Comment: PERF ORMED BY:[place] [address] [place], [place] [phone] MEDICAL DIRECTORANNIKA NOGUEIRA M.D. Performed By: #### A DDONUAPLUS, URDS ####[place] [id number] [facility] RBC,Urine 5-9 High 0-4 The Pending [facility] Comment on above: Order Comment: Name Collection Type:: Clean-Voided Midstream Performed By: #### A DDONUAPLUS, URDS ####[place] [id number] [facility] Specificy [place],Urine > 1.050 High 1.001-1.03 0 The Pending [facility] Comment on above: Order Comment: Name Collection Type:: Clean-Voided Midstream Performed By: #### A DDONUAPLUS, URDS ####[address] Squamous Epithelial Cell,Urine None Seen Normal 0-2 The Pending [facility] To [facility] Comment on above: Order Comment: Name Collection Type:: Clean-Voided Midstream Performed By: #### A DDONUAPLUS, URDS ####[place] [id number] [facility] Urobilinogen,Urine Normal Normal Normal The Pending [facility] To [facility] Comment on above: Order Comment: Name Collection Type:: Clean-Voided Midstream Performed By: #### A DDONUAPLUS, URDS ####[address] WBC,Urine 5-9 High 0-4 The Pending [facility] To [facility] Comment on above: Order Comment: Name Collection Type:: Clean-Voided Midstream Performed By: #### A DDONUAPLUS, URDS ####[place] [id number] [facility] Drug Screen,Urineon 12-21-19 23 Amphetamine Screen,Urine Negative Normal Negative The Pending [facility] To [facility] Comment on above: Performed By: #### A DDONUAPLUS, URDS ####[place] [id number] [facility] Barbiturate Screen,Urine Negative Normal Negative The Pending [facility] To [facility] Comment on above: Performed By: #### A DDONUAPLUS, URDS ####[place] [id number] [facility] Benzodiazepines Screen,Urine Negative Normal Negative The Pending [facility] Comment on above: Performed By: #### A DDONUAPLUS, URDS ####[place] [id number] [facility] Cannabinoid Screen,Urine Negative Normal Negative The Pending [facility] Comment on above: Result Comment: Thes e are unconfirmed results and should not be used for legal purposes. Drug Cut-Off Concentration: AMPH 1000 ng/mL MAYDA 200 ng/mL ISABEL 200 ng/mL COCM 300 ng/mL OP 300 ng/mL PCP 25 ng/mL THC 20 ng/mLPERFORMED BY:[address] [place], [place] [phone] MEDICAL DIRECTORANNIKA NOGUEIRA M.D. Performed By: #### A DDONUAPLUS, URDS ####[facility] [id number] [place] [address] [facility] Cocaine Screen,Urine Negative Normal Negative The Pending [facility] To [facility] Comment on above: Performed By: #### A DDONUAPLUS, URDS ####[place] [id number] [place] [phone] [facility] Opiate Screen,Urine Negative Normal Negative The Pending [facility] To [facility] Comment on above: Performed By: #### A DDONUAPLUS, URDS ####[place] [address] [place] [address] [facility] Phencyclidine Screen,Urine Negative Normal Negative The Pending [facility] To [facility] Comment on above: Performed By: #### A DDONUAPLUS, URDS ####[facility] [id number] [place] [address] [facility] ECH echo transthoracicon ECH echo transthoracic Normal Th e Pending Sale To [facility] Ketones Auto test strip (U) [Mass/Vol]Ordered By: Hudson Patel on 12-20-2022 Ketones (U) [Mass/Vol] Trace Negative [facility] Laboratory - UrinalysisOrder ed By: Hudson Patel on 12-20-2022 Hyaline casts LM Ql (Urine sed) 0-8 [LPF] 0-8 [facility] Lipid Panelon 12-20-2022 LDL Cholesterol,Calculated 63 mg/dL Normal 0-100 The Pending [facility] To [facility] Comment on above: Result Comment: LDL ATP III CLASSIFICATION LDL less than 100 mg/dL Optimal LDL 100-129 mg/dL Near or above optimal LDL 130-159 mg/dL Borderline high LDL 160-189 mg/dL High LDL greater than 189 mg/dL Very high Performed By: #### L IPID, BMP, CBC ####[place] [id number] [facility] Triglyceride w/Reflex 90 mg/dL Normal 0-149 The Pending [facility] Comment on above: Result Comment: TRIG ATP III CLASSIFICATION TRIG less than 150 mg/dL Normal TRIG 150-199 mg/dL Borderline high TRIG 200-500 mg/dL High TRIG greater than 500 mg/dL Very high Standard traceable to the Center for Disease Conrtrol and Prevention (CDC) test method. Performed By: #### L IPID, BMP, CBC ####[facility] [id number] [address] VLDL CHOLESTEROL 18 mg/dL Normal The Pending [facility] Comment on above: Performed By: #### L IPID, BMP, CBC ####[facility] MR head/brain wo conon 12-20 MR head/brain wo con Normal The Pending [facility] To [facility] Nitrite Test strip Ql (U)Ord ered By: Hudson Patel on 12-20-2022 Nitrite Ql (U) Negative Negative [facility] Opiates [Presence] in Urine by Screen methodOrdered By: Hudson Patel on 12-20-2022 Opiates Screen Ql (U) Negative Negative [facility] Phencyclidine Screen Ql (U)O rdered By: Hudson Patel on 12-20-2022 Phencyclidine Ql (U) Negative Negative [facility] Serum or plasma high density lipoprotein (HDL) cholesterol measurementOrdered By: Celeste Alfonso on 12-20-2022 Cholesterol in HDL [Mass/Vol] 25 mg/dL Normal 23-92 [facility] Comment on above: HDL CHOL ATP-III CLA SSIFICATION Cardiovascular RiskHDL > or equal to 60 mg/dL LOWHDL < 40 mg/dL HIGH Result Comment: HDL CHOL ATP-III CLASSIFICATION Cardiovascular Risk HDL > or equal to 60 mg/dL LOW HDL < 40 mg/dL HIGH Performed By: #### L IPID, BMP, CBC ####[facility] [id number] [address] Serum or plasma total choles terol/high density lipoprotein (HDL) cholesterol mass ratOrdered By: Celeste Alfonso on 12-20-2022 Cholesterol.total/Chol esterol in HDL [Mass ratio] 4.2 {ratio} Normal <5.0 [facility] Comment on above: Result Comment: PERF ORMED BY:[address] [address] [address] [place], [place] [phone] MEDICAL DIRECTORANNIKA NOGUEIRA M.D. Performed By: #### L IPID, BMP, CBC ####[address] [place] [place] [address] [facility] Specific gravity Auto test s trip (U) [Rel density]Ordered By: Hudson Patel on 12-20-2022 Specific gravity (U) [Rel density] > 1.050 1.001-1.03 0 [facility] Squamous epithelial cells de tection in urine sediment by light microscopyOrdered By: Hudson Patel on 12-20-2022 Epithelial cells.squamous LM Ql (Urine sed) None seen [HPF] 0-2 [facility] Triglyceride [Mass/volume] i n Serum or PlasmaOrdered By: Celeste Alfonso on 12-20-2022 Triglyceride [Mass/Vol] 90 mg/dL 0-149 [facility] Comment on above: TRIG ATP III CLASSIF ICATIONTRIG less than 150 mg/dL NormalTRIG 150-199 mg/dL Borderline highTRIG 200-500 mg/dL High TRIG greater than 500 mg/dL Very highStandard traceable to the Center for Disease Conrtrol and Prevention (CDC) test method. Troponin I High Sensitivityo n 12-20-2022 Troponin I High Sensitivity 219.3 pg/mL Off scale high 0.0-20.0 The Pending [facility] To [facility] Comment on above: Result Comment: Crit ical Result : Called to and read back by: SIDDHARTHA MOSQUEDA at: 12/20/2022 07:38:41 by:[id number] BY:[place] [address] [address] [place], [place] [phone] MEDICAL DIRECTORANNIKA NOGUEIRA M.D. Performed By: #### H S TROP ####[address] [place] [address] [facility] Troponin I High Sensitivity 196.3 pg/mL Off scale high 0.0-20.0 The Pending [facility] Comment on above: Result Comment: Crit ical Result : Called to and read back by: DANIELA MORRIS at: 12/20/2022 03:04:35 by:SAVANNAHPERFORMED BY:[facility] [place], [place] [phone] MEDICAL DIRECTORANNIKA NOGUEIRA M.D. Performed By: #### H S TROP ####[facility] [id number] [place] [address] [facility] Troponin I.cardiac [Mass/vol ume] in Serum or Plasma by Detection limit <= 0.01 ng/Ordered By: Celeste Alfonso on 12-20-2022 Troponin I.cardiac DL <= 0.01 ng/mL [Mass/Vol] 219.3 pg/mL 0.0-20.0 [facility] Comment on above: Critical Result : Ca lled to and read back by: SIDDHARTHA MOSQUEDA at: 12/20/2022 07:38:41 by:[id number] Urine bacteria detection by automated methodOrdered By: Hudson Patel on 12-20-2022 Bacteria Auto Ql (U) None seen None Seen [facility] Urine clarity by refractomet ry automatedOrdered By: Hudson Patel on 12-20-2022 Clarity Refractometry automated (U) Clear Clear [facility] Urine glucose measurement by automated test strip (mass/volume)Ordered By: Hudson Patel on 12-20-2022 Glucose Auto test strip (U) [Mass/Vol] Normal mg/dL Normal [facility] Urine hemoglobin detection b y automated test stripOrdered By: Hudson Patel on 12-20-2022 Hemoglobin Auto test strip Ql (U) 1+ Negative [facility] Urine leukocyte esterase det ection by automated test stripOrdered By: Hudson Patel on 12-20-2022 Leukocyte esterase Auto test strip Ql (U) Negative Negative [facility] Urine pH measurement by auto mated test stripOrdered By: Hudson Patel on 12-20-2022 pH (U) 5.5 [pH] Normal 5.0-9.0 [facility] Comment on above: Order Comment: Name Collection Type:: Clean-Voided Midstream Performed By: #### A DDONUAPLUS, URDS ####[facility] [place] [id number] [facility] Urine protein measurement by automated test strip (mass/volume)Ordered By: Hudson Patel on 12-20-2022 Protein (U) [Mass/Vol] 300 mg/dL High Negative [facility] Comment on above: Order Comment: Name Collection Type:: Clean-Voided Midstream Performed By: #### A DDONUAPLUS, URDS ####[place] [id number] [place] [id number] [facility] Urobilinogen Auto test strip (U) [Mass/Vol]Ordered By: Hudson Patel on 12-20-2022 Urobilinogen (U) [Mass/Vol] Normal mg/dL Normal [facility] Activated partial thrombopla stin time (aPTT) in platelet poor plasma by coagulation aOrdered By: Hudson Patel on 12-19-2022 aPTT Coag (PPP) [Time] 33.9 s 25.1-36.5 [facility] Comment on above: A hematocrit value g reater than 55% may lead to inaccurate results in coagulation testing. Patients having hematocrit values >55% require a special collection tube for coagulation studies. Please contact the laboratory at [phone] for redraw instructions. Alanine aminotransferase [En zymatic activity/volume] in Serum or PlasmaOrdered By: Hudson Patel on 12-19-2022 ALT [Catalytic activity/Vol] 20 U/L Normal 7-52 [facility] Comment on above: Performed By: #### C K, PT, AMM, HS TROP, CMP, CUBLD, PTT, TSH3, CBC, LACTIC ####[facility] [id number] [place] [id number] [facility] Albumin [Mass/volume] in Ser um or Plasma by Bromocresol green (BCG) dye binding methoOrdered By: Hudson Patel on 12-19-2022 Albumin BCG dye [Mass/Vol] 4.0 g/dL 3.5-5.7 [facility] Alkaline phosphatase [Enzyma tic activity/volume] in Serum or PlasmaOrdered By: Hudson Patel on 12-19-2022 ALP [Catalytic activity/Vol] 121 U/L High 34-104 [facility] Comment on above: Performed By: #### C K, PT, AMM, HS TROP, CMP, CUBLD, PTT, TSH3, CBC, LACTIC ####[place] [id number] [facility] Ammonia [Moles/volume] in Pl asmaOrdered By: Hudson Patel on 12-19-2022 Ammonia (P) [Moles/Vol] 22 umol/L Normal 11-35 [facility] Comment on above: Result Comment: PERF ORMED BY:[address] [place] [address] [place] [place], [place] [phone] MEDICAL DIRECTORANNIKA NOGUEIRA M.D. Performed By: #### C K, PT, AMM, HS TROP, CMP, CUBLD, PTT, TSH3, CBC, LACTIC ####[place] [address] [id number] [facility] Aspartate aminotransferase [ Enzymatic activity/volume] in Serum or PlasmaOrdered By: Hudson Patel on 12-19-2022 AST [Catalytic activity/Vol] 37 U/L Normal 13-39 [facility] Comment on above: Performed By: #### C K, PT, AMM, HS TROP, CMP, CUBLD, PTT, TSH3, CBC, LACTIC ####[place] [id number] [facility] Automated basophil %Ordered By: Hudson Patel on 12-19-2022 Basophils/100 WBC (Bld) 0.8 % Normal . [facility] Comment on above: Performed By: #### C K, PT, AMM, HS TROP, CMP, CUBLD, PTT, TSH3, CBC, LACTIC ####[place] [id number] [facility] Automated basophil countOrde red By: Hudson Patel on 12-19-2022 Basophils (Bld) [#/Vol] 0.1 10*3/uL Normal 0.0-0.2 [facility] Comment on above: Result Comment: PERF ORMED BY:[address] [address] [place] [place], [place] [phone] MEDICAL DIRECTORANNIKA NOGUEIRA M.D. Performed By: #### C K, PT, AMM, HS TROP, CMP, CUBLD, PTT, TSH3, CBC, LACTIC ####[address] Automated blood monocyte cou ntOrdered By: Hudson Patel on 12-19-2022 Monocytes (Bld) [#/Vol] 0.9 10*3/uL High 0.0-0.8 [facility] Comment on above: Performed By: #### C K, PT, AMM, HS TROP, CMP, CUBLD, PTT, TSH3, CBC, LACTIC ####[address] Automated eosinophil %Ordere d By: Hudson Patel on 12-19-2022 Eosinophils/100 WBC (Bld) 2.5 % Normal . [facility] Comment on above: Performed By: #### C K, PT, AMM, HS TROP, CMP, CUBLD, PTT, TSH3, CBC, LACTIC ####[address] Automated eosinophil countOr dered By: Hudson Patel on 12-19-2022 Eosinophils (Bld) [#/Vol] 0.3 10*3/uL Normal 0.0-0.45 [facility] Comment on above: Performed By: #### C K, PT, AMM, HS TROP, CMP, CUBLD, PTT, TSH3, CBC, LACTIC ####[address] Automated monocyte %Ordered By: Hudson Patel on 12-19-2022 Monocytes/100 WBC (Bld) 8.6 % Normal . [facility] Comment on above: Performed By: #### C K, PT, AMM, HS TROP, CMP, CUBLD, PTT, TSH3, CBC, LACTIC ####[address] Automated neutrophil %Ordere d By: Hudson Patel on 12-19-2022 Neutrophils/100 WBC (Bld) 66.1 % Normal . [facility] Comment on above: Performed By: #### C K, PT, AMM, HS TROP, CMP, CUBLD, PTT, TSH3, CBC, LACTIC ####[place] [id number] [facility] Bacterial blood cultureOrder ed By: Hudson Patel on 12-19-2022 Bacteria identified Cx Nom (Bld) NO GROWTH 5 DAYS [facility] Bacteria identified Cx Nom (Bld) NO GROWTH 5 DAYS [facility] Bilirubin.total [Mass/volume ] in Serum or PlasmaOrdered By: Hudson Patel on 12-19-2022 Bilirubin [Mass/Vol] 1.2 mg/dL High 0.3-1.0 [facility] Comment on above: Performed By: #### C K, PT, AMM, HS TROP, CMP, CUBLD, PTT, TSH3, CBC, LACTIC ####[address] [id number] [facility] Blood Cultureon 12-19-2022 Bacteria identified Cx Nom (Bld) Normal [facility]ending [facility] Comment on above: Performed By: #### C K, PT, AMM, HS TROP, CMP, CUBLD, PTT, TSH3, CBC, LACTIC ####[place] [id number] [facility] Bacteria identified Cx Nom (Bld) NO GROWTH 5 DAYS PERFORMED BY: [facility] [address] [place] [address] PATHOLOGIST ATMOSPHERIC PHYSICIST ANNIKA NOGUEIRA M.D. Normal The [facility]ending [facility] Comment on above: Performed By: #### C K, PT, AMM, HS TROP, CMP, CUBLD, PTT, TSH3, CBC, LACTIC ####[place] [id number] [facility] CT abdomen pelvis w conon CT abdomen pelvis w con Normal [facility] CT head/brain wo conon 12-19 CT head/brain wo con Normal [facility]ending [facility] Calcium [Mass/volume] in Ser um or PlasmaOrdered By: Hudson Patel on 12-19-2022 Calcium [Mass/Vol] 9.3 mg/dL Normal 8.6-10.3 [facility] Comment on above: Performed By: #### C K, PT, AMM, HS TROP, CMP, CUBLD, PTT, TSH3, CBC, LACTIC ####[facility] Capillary blood glucose dash urement by glucometer (mass/volume)Ordered By: Hudson Patel on 12-19-2022 Glucose [Mass/Vol] 92 mg/dL Normal [facility] Comment on above: Random Glucose Refer ence Range is dependent on time and content of last meal. Glucose of more than 200 mg/dL in a nonstressed, ambulatory subject supports the diagnosis of Diabetes Mellitus. Result Comment: [place] Glucose Reference Range is dependent on time and content of last meal. Glucose of more than 200 mg/dL in a nonstressed, ambulatory subject supports the diagnosis of Diabetes Mellitus. Performed By: #### G ER ####Point of Care testing, Carbon dioxide, total [Moles /volume] in Serum or PlasmaOrdered By: Hudson Patel on 12-19-2022 CO2 [Moles/Vol] 26.0 mmol/L Normal 21.0-31.0 [facility] Comment on above: Performed By: #### C K, PT, AMM, HS TROP, CMP, CUBLD, PTT, TSH3, CBC, LACTIC ####[facility] Chloride [Moles/volume] in S sammy or PlasmaOrdered By: Hudson Patel on 12-19-2022 Chloride [Moles/Vol] 105 mmol/L Normal 98-107 [facility] Comment on above: Performed By: #### C K, PT, AMM, HS TROP, CMP, CUBLD, PTT, TSH3, CBC, LACTIC ####[facility] [place] [id number] [facility] Complete Blood Count Auto Di ffon 12-19-2022 Mean Corpuscular HGB Conc 33.4 g/dL Normal 32.5-35.6 [facility]ending [facility] Comment on above: Performed By: #### C K, PT, AMM, HS TROP, CMP, CUBLD, PTT, TSH3, CBC, LACTIC ####[address] Monocytes/100 WBC (Bld) 20.93 % High 0.00-20.00 The [facility]ending [facility] Comment on above: Result Comment: For adults in ED, MDW > 20.0 may be associated with a higher risk of sepsis during the first 12 hrs of hospital admission Performed By: #### C K, PT, AMM, HS TROP, CMP, CUBLD, PTT, TSH3, CBC, LACTIC ####[address] NRBC% 0.5 /100{WBC} Normal 0-0.5 The [facility]ending [facility] Comment on above: Performed By: #### C K, PT, AMM, HS TROP, CMP, CUBLD, PTT, TSH3, CBC, LACTIC ####[address] Comprehensive Metabolic Pane negro 12-19-2022 Albumin [Mass/Vol] 4.0 g/dL Normal 3.5-5.7 [facility]ending [facility] Comment on above: Performed By: #### C K, PT, AMM, HS TROP, CMP, CUBLD, PTT, TSH3, CBC, LACTIC ####[address] Creatinine Clr Calc Pharmacy 71.11 Normal The [facility]ending [facility] Comment on above: Performed By: #### C K, PT, AMM, HS TROP, CMP, CUBLD, PTT, TSH3, CBC, LACTIC ####[address] GFR/1.73 sq M.predicted MDRD (S/P/Bld) [Vol rate/Area] mL/min/{1.73_m2} Normal The [facility]ending [facility] Comment on above: Performed By: #### C K, PT, AMM, HS TROP, CMP, CUBLD, PTT, TSH3, CBC, LACTIC ####[address] Creatine kinase [Enzymatic a ctivity/volume] in Serum or PlasmaOrdered By: Hudson Patel on 12-19-2022 CK [Catalytic activity/Vol] 77 U/L Normal 30-223 [facility] Comment on above: Performed By: #### C K, PT, AMM, HS TROP, CMP, CUBLD, PTT, TSH3, CBC, LACTIC ####[place] [id number] [facility] Creatinine [Mass/volume] in Serum or PlasmaOrdered By: Hudson Patel on 12-19-2022 Creatinine [Mass/Vol] 0.97 mg/dL Normal 0.70-1.30 [facility] Comment on above: Performed By: #### C K, PT, AMM, HS TROP, CMP, CUBLD, PTT, TSH3, CBC, LACTIC ####[place] [id number] [facility] ECG 12 lead ECGon 12-19-2022 ECG 12 lead ECG Normal The [facility]ending [facility] Erythrocyte distribution wid th [Ratio] by Automated countOrdered By: Hudson Patel on 12-19-2022 Erythrocyte distribution width (RBC) [Ratio] 15.9 % High 12.0-14.8 [facility] Comment on above: Performed By: #### C K, PT, AMM, HS TROP, CMP, CUBLD, PTT, TSH3, CBC, LACTIC ####[address] Erythrocytes [#/volume] in B lood by Automated countOrdered By: Hudson Patel on 12-19-2022 RBC (Bld) [#/Vol] 4.72 10*6/uL Normal 3.90-5.60 [facility] Comment on above: Performed By: #### C K, PT, AMM, HS TROP, CMP, CUBLD, PTT, TSH3, CBC, LACTIC ####[address] [address] [facility] Glucose Poct Glucometerson 1 02-18-2022 Commemt1 Normal The [facility]ending [facility] Comment on above: Result Comment: Glu2 : WILL NOTIFY /VIRIDIANAERFORMED BY:[address] [place], [place] [phone] MEDICAL DIRECTORANNIKA NOGUEIRA M.D. Performed By: #### G RE ####Point of Care testing, Glucose [Mass/volume] in Ser um or PlasmaOrdered By: Hudson Patel on 12-19-2022 Glucose [Mass/Vol] 89 mg/dL Normal 70-100 [facility] Comment on above: ADA recommended refe rence rangeRandom Glucose Reference Range is dependent on time and content of last meal. Glucose of more than 200 mg/dL in a nonstressed, ambulatory subject supports the diagnosis of Diabetes Mellitus. Result Comment: [place] Glucose Reference Range is dependent on time and content of last meal. Glucose of more than 200 mg/dL in a nonstressed, ambulatory subject supports the diagnosis of Diabetes Mellitus. ADA recommended reference range Performed By: #### C K, PT, AMM, HS TROP, CMP, CUBLD, PTT, TSH3, CBC, LACTIC ####[place] [address] [place] [id number] [facility] Hematocrit [Volume Fraction] of Blood by Automated countOrdered By: Hudson Patel on 12-19-2022 Hematocrit (Bld) [Volume fraction] 47.8 % Normal 38.8-50.0 [facility] Comment on above: Performed By: #### C K, PT, AMM, HS TROP, CMP, CUBLD, PTT, TSH3, CBC, LACTIC ####[place] [address] [place] [id number] [facility] Hemoglobin [Mass/volume] in BloodOrdered By: Hudson Patel on 12-19-2022 Hemoglobin (Bld) [Mass/Vol] 15.9 g/dL Normal 13.0-17.0 [facility] Comment on above: Performed By: #### C K, PT, AMM, HS TROP, CMP, CUBLD, PTT, TSH3, CBC, LACTIC ####[place] [address] [place] [phone] [facility] INR in Platelet poor plasma by Coagulation assayOrdered By: Hudson Patel on 12-19-2022 INR Coag (PPP) [Relative time] 1.1 {INR} Normal [facility] Comment on above: INR Therapeutic Rang [...] TROP, CMP, CUBLD, PTT, TSH3, CBC, LACTIC ####[facility] [place] [address] [facility] Lactate [Moles/volume] in Se rum or PlasmaOrdered By: Hudson Patel on 12-19-2022 Lactate [Moles/Vol] 1.7 mmol/L Normal 0.5-2.2 [facility] Comment on above: Result Comment: PERF ORMED BY:[address] [place], [place] [phone] MEDICAL DIRECTORANNIKA NOGUEIRA M.D. Performed By: #### C K, PT, AMM, HS TROP, CMP, CUBLD, PTT, TSH3, CBC, LACTIC ####[facility] [address] [place] [address] [facility] Leukocytes [#/volume] correc michelle for nucleated erythrocytes in Blood by Automated counOrdered By: Hudson Patel on 12-19-2022 WBC corrected for nucl RBC Auto (Bld) [#/Vol] 10.6 10*3/uL 4.1-10.5 [facility] Leukocytes [#/volume] in Blo od by Automated countOrdered By: Hudson Patel on 12-19-2022 WBC (Bld) [#/Vol] 10.6 10*3/uL High 4.1-10.5 [facility] Comment on above: Performed By: #### C K, PT, AMM, HS TROP, CMP, CUBLD, PTT, TSH3, CBC, LACTIC ####[address] Lymphocytes [#/volume] in Bl ood by Automated countOrdered By: Hudson Patel on 12-19-2022 Lymphocytes (Bld) [#/Vol] 2.3 10*3/uL Normal 1.00-4.8 [facility] Comment on above: Performed By: #### C K, PT, AMM, HS TROP, CMP, CUBLD, PTT, TSH3, CBC, LACTIC ####[address] Lymphocytes/100 leukocytes i n Blood by Automated countOrdered By: Hudson Patel on 12-19-2022 Lymphocytes/100 WBC (Bld) 22.0 % Normal . [facility] Comment on above: Performed By: #### C K, PT, AMM, HS TROP, CMP, CUBLD, PTT, TSH3, CBC, LACTIC ####[address] MCH [Entitic mass] by Automa michelle countOrdered By: Hudson Patel on 12-19-2022 MCH (RBC) [Entitic mass] 33.8 pg Normal 27.5-35.2 [facility] Comment on above: Performed By: #### C K, PT, AMM, HS TROP, CMP, CUBLD, PTT, TSH3, CBC, LACTIC ####[address] MCHC Auto (RBC) [Mass/Vol]Or dered By: Hudson Patel on 12-19-2022 MCHC (RBC) [Mass/Vol] 33.4 g/dL 32.5-35.6 [facility] MCV [Entitic volume] by Auto mated countOrdered By: Hudson Patel on 12-19-2022 MCV (RBC) [Entitic vol] 101.2 fL High 83.5-101 [facility] Comment on above: Performed By: #### C K, PT, AMM, HS TROP, CMP, CUBLD, PTT, TSH3, CBC, LACTIC ####[place] [id number] [facility] Magnesium [Mass/volume] in S sammy or PlasmaOrdered By: Celeste Alfonso on 12-19-2022 Magnesium [Mass/Vol] 1.7 mg/dL Low 1.9-2.7 [facility] Comment on above: Order Comment: Comme nt add Result Comment: PERF ORMED BY:[address] [place], [place] [phone] MEDICAL DIRECTORANNIKA NOGUEIRA M.D. Performed By: #### M G ####[place] [id number] [facility] Monocyte distribution width [Entitic volume] in Blood by AutomatedOrdered By: Hudson Patel on 12-19-2022 Monocyte distribution width Auto (Bld) [Entitic vol] 20.93 % 0.00-20.00 [facility] Comment on above: For adults in ED, MD W > 20.0 may be associated with a higher risk of sepsis during the first 12 hrs of hospital admission Neutrophils [#/volume] in Bl ood by Automated countOrdered By: Hudson Patel on 12-19-2022 Neutrophils (Bld) [#/Vol] 7.0 10*3/uL Normal 1.8-7.7 [facility] Comment on above: Performed By: #### C K, PT, AMM, HS TROP, CMP, CUBLD, PTT, TSH3, CBC, LACTIC ####[place] [id number] [facility] No Panel InformationOrdered By: Hudson Patel on 12-19-2022 Blood Gas Critical Value See comment [facility] Comment on above: Critical Value bowling d on: 12/19/2022 at 15:08 Blood Gas Sample Site Venous Fir [facility] FiO2 21 % [facility] Venous Blood Base Excess -0.7 mmol/L -3.0-3.0 [facility] Venous Blood Oxygen Content 4.4 mmol/L 6.6-9.7 [facility] Venous Blood Oxygen Saturation 41.2 % 73.0-76.0 [facility] Venous Blood Partial Pressure CO2 44.9 mm[Hg] 38.0-50.0 [facility] Venous Blood Partial Pressure O2 24.3 mm[Hg] 35.0-45.0 [facility] Venous Blood pH 7.37 7.32-7.43 [facility] Estimated GFR (CKD-EPI) > 60.0 mL/Min [facility] Creatinine Clearance (Chem 71.11 [facility] Bedside Glucose Comment See comment [facility] Comment on above: Glu2: WILL NOTIFY DR /RN Nucleated erythrocytes [Pres ence] in Blood by Automated countOrdered By: Hudson Patel on 12-19-2022 Nucleated RBC Auto Ql (Bld) 0.5 /100{WBC} 0-0.5 [facility] Partial Thromboplastin Timeo n 12-19-2022 aPTT Coag (Bld) [Time] 33.9 s Normal 25.1-36.5 Th e Pending [facility] To [facility] Comment on above: Result Comment: A he matocrit value greater than 55% may lead to inaccurate results in coagulation testing. Patients having hematocrit values >55% require a special collection tube for coagulation studies. Please contact the laboratory at [phone] for redraw instructions.PERFORMED BY:[address] [place], [place] [phone] MEDICAL DIRECTORANNIKA NOGUEIRA M.D. Performed By: #### C K, PT, AMM, HS TROP, CMP, CUBLD, PTT, TSH3, CBC, LACTIC ####[place] [id number] [facility] Platelet mean volume [Entiti c volume] in Blood by Automated countOrdered By: Hudson Patel on 12-19-2022 Platelet mean volume (Bld) [Entitic vol] 10.0 fL Normal 6.6-10.1 [facility] Comment on above: Performed By: #### C K, PT, AMM, HS TROP, CMP, CUBLD, PTT, TSH3, CBC, LACTIC ####[place] [id number] [facility] Platelets [#/volume] in Bloo d by Automated countOrdered By: Hudson Patel on 12-19-2022 Platelets (Bld) [#/Vol] 200 10*3/uL Normal 150-450 [facility] Comment on above: Performed By: #### C K, PT, AMM, HS TROP, CMP, CUBLD, PTT, TSH3, CBC, LACTIC ####[place] [address] [place] [id number] [facility] Potassium [Moles/volume] in Serum or PlasmaOrdered By: Hudson Patel on 12-19-2022 Potassium [Moles/Vol] 3.6 mmol/L Normal 3.5-5.1 [facility] Comment on above: Performed By: #### C K, PT, AMM, HS TROP, CMP, CUBLD, PTT, TSH3, CBC, LACTIC ####[place] [id number] [facility] Protein [Mass/volume] in Ser um or PlasmaOrdered By: Hudson Patel on 12-19-2022 Protein [Mass/Vol] 7.8 g/dL Normal 6.4-8.9 [facility] Comment on above: Performed By: #### C K, PT, AMM, HS TROP, CMP, CUBLD, PTT, TSH3, CBC, LACTIC ####[address] [address] [facility] Prothrombin time (PT)Ordered By: Hudson Patel on 12-19-2022 PT Coag (PPP) [Time] 13.4 s High 9.0-12.9 [facility] Comment on above: A hematocrit value g reater than 55% may lead to inaccurate results in coagulation testing. Patients having hematocrit values >55% require a special collection tube for coagulation studies. Please contact the laboratory at [phone] for redraw instructions. Result Comment: A he matocrit value greater than 55% may lead to inaccurate results in coagulation testing. Patients having hematocrit values >55% require a special collection tube for coagulation studies. Please contact the laboratory at [phone] for redraw instructions. Performed By: #### C K, PT, AMM, HS TROP, CMP, CUBLD, PTT, TSH3, CBC, LACTIC ####[place] [address] Serum globulin measurement b y calculation (mass/volume)Ordered By: Hudson Patel on 12-19-2022 Globulin (S) [Mass/Vol] 3.8 g/dL [facility] Comment on above: Performed By: #### C K, PT, AMM, HS TROP, CMP, CUBLD, PTT, TSH3, CBC, LACTIC ####[place] [address] Serum or plasma albumin/glob ulin mass ratioOrdered By: Hudson Patel on 12-19-2022 Albumin/Globulin [Mass ratio] 1.1 {ratio} [facility] Comment on above: Performed By: #### C K, PT, AMM, HS TROP, CMP, CUBLD, PTT, TSH3, CBC, LACTIC ####[place] [address] Serum or plasma anion gap de terminationOrdered By: Hudson Patel on 12-19-2022 Anion gap [Moles/Vol] 14.6 mmol/L Normal 6.0-15.0 [facility] Comment on above: Performed By: #### C K, PT, AMM, HS TROP, CMP, CUBLD, PTT, TSH3, CBC, LACTIC ####[place] [address] Sodium [Moles/volume] in Ser um or PlasmaOrdered By: Hudson Patel on 12-19-2022 Sodium [Moles/Vol] 142 mmol/L Normal 136-145 [facility] Comment on above: Performed By: #### C K, PT, AMM, HS TROP, CMP, CUBLD, PTT, TSH3, CBC, LACTIC ####[place] [address] Thyrotropin [Units/volume] i n Serum or PlasmaOrdered By: Hudson Patel on 12-19-2022 TSH Qn 2.21 m[IU]/L Normal 0.45-5.33 [facility] Comment on above: Result Comment: PERF ORMED BY:[place] [address] [address] [place], [place] [phone] MEDICAL DIRECTORANNIKA NOGUEIRA M.D. Performed By: #### C K, PT, AMM, HS TROP, CMP, CUBLD, PTT, TSH3, CBC, LACTIC ####[address] [address] [facility] Troponin I High Sensitivityo n 12-19-2022 Troponin I High Sensitivity 131.4 pg/mL Off scale high 0.0-20.0 [facility]ending [facility] Comment on above: Result Comment: Crit ical Result : Called to and read back by: DANIELA MORRIS at: 12/19/2022 23:00:29 by:DHPERFORMED BY:[address] ZACARIASRamaYOLA, [place] [phone] MEDICAL DIRECTORANNIKA NOGUEIRA M.D. Performed By: #### H S TROP ####[address] [address] [facility] Troponin I High Sensitivity 135.8 pg/mL Off scale high 0.0-20.0 [facility]ending [facility] Comment on above: Result Comment: Crit ical Result : Called to and read back by: MILDRED WRIGHT at: 12/19/2022 16:30:44 by:DCPERFORMED BY:[address] ZACARIASRamaYOLACLEARBROOK, [place] [phone] MEDICAL JADEN NOGUEIRA M.D. Performed By: #### C K, PT, AMM, HS TROP, CMP, CUBLD, PTT, TSH3, CBC, LACTIC ####[address] [address] [facility] Troponin I.cardiac [Mass/vol ume] in Serum or Plasma by Detection limit <= 0.01 ng/Ordered By: Hudson Patel on 12-19-2022 Troponin I.cardiac DL <= 0.01 ng/mL [Mass/Vol] 135.8 pg/mL 0.0-20.0 [facility] Comment on above: Critical Result : Ca lled to and read back by: MILDRED WRIGHT at: 12/19/2022 16:30:44 by:DC Urea nitrogen [Mass/volume] in Serum or PlasmaOrdered By: Hudson Patel on 12-19-2022 Urea nitrogen [Mass/Vol] 14 mg/dL Normal 7-25 [facility] Comment on above: Performed By: #### C K, PT, AMM, HS TROP, CMP, CUBLD, PTT, TSH3, CBC, LACTIC ####[facility] [place] [address] [facility] Venous Blood GasOrdered By: Hudson Patel on 12-19-2022 CO2 [Moles/Vol] 26.5 mmol/L Normal 24.0-29.0 [facility] Comment on above: Performed By: #### V BG ####Point of Care testing, HCO3 (Bld) [Moles/Vol] 25.1 mmol/L Normal 23.0-29.0 [facility] Comment on above: Performed By: #### V BG ####Point of Care testing, Venous Blood Gason 3 Respiratory Critical Normal [facility]ending [facility] Comment on above: Result Comment: Crit ical Value called on: 12/19/2022 at 15:08PERFORMED BY:[facility] [place], [place] [phone] MEDICAL DIRECTORANNIKA NOGUEIRA M.D. Performed By: #### V BG ####Point of Care testing, VBG Base Excess -0.7 mmol/L Normal -3.0-3.0 [facility] Comment on above: Performed By: #### V BG ####Point of Care testing, VBG Draw Site Venous Normal [facility]ending [facility] Comment on above: Performed By: #### V BG ####Point of Care testing, VBG Frac Inspired O2 21 % Normal [facility] Comment on above: Performed By: #### V BG ####Point of Care testing, VBG O2 Content 4.4 mmol/L Low 6.6-9.7 [facility]ending [facility] Comment on above: Performed By: #### V BG ####Point of Care testing, VBG Oxygen Saturation 41.2 % Off scale low 73.0-76.0 [facility]ending [facility] Comment on above: Performed By: #### V BG ####Point of Care testing, VBG PCO2 44.9 mm[Hg] Normal 38.0-50.0 [facility]ending [facility] Comment on above: Performed By: #### V BG ####Point of Care testing, VBG PH Venous PH 7.37 Normal 7.32-7.43 [facility]ending [facility] Comment on above: Performed By: #### V BG ####Point of Care testing, VBG PO2 24.3 mm[Hg] Low 35.0-45.0 [facility]ending [facility] Comment on above: Performed By: #### V BG ####Point of Care testing, XR chest 2V*on 12-19-2022 XR chest 2V* Normal [facility] Negro 12-09-2022 L Normal [facility] Basic Metabolic Panelon 11-13 Creatinine Clr Calc Pharmacy 70.44 Normal [facility] Physician [facility] Comment on above: Result Comment: PERF ORMED BY:[address] [place], [place] [id number] MEDICAL DIRECTORANNIKA NOGUEIRA M.D. Performed By: #### B MP ####[address] [place] [address] [facility] GFR/1.73 sq M.predicted MDRD (S/P/Bld) [Vol rate/Area] mL/min/{1.73_m2} Normal [facility] Comment on above: Performed By: #### B MP ####[facility] [place] [address] [facility] Calcium [Mass/volume] in Ser um or PlasmaOrdered By: Adin Boyce on 11-22-2022 Calcium [Mass/Vol] 8.7 mg/dL Normal 8.6-10.3 [facility] Comment on above: Performed By: #### B MP ####[facility] [place] [address] [facility] Carbon dioxide, total [Moles /volume] in Serum or PlasmaOrdered By: Adin Boyce on 11-22-2022 CO2 [Moles/Vol] 24.8 mmol/L Normal 21.0-31.0 [facility] Comment on above: Performed By: #### B MP ####[address] [place] [id number] [facility] Chloride [Moles/volume] in S sammy or PlasmaOrdered By: Adin Boyce on 11-22-2022 Chloride [Moles/Vol] 104 mmol/L Normal 98-107 [facility] Comment on above: Performed By: #### B MP ####[id number] [facility] Creatinine [Mass/volume] in Serum or PlasmaOrdered By: Adin Boyce on 11-22-2022 Creatinine [Mass/Vol] 1.11 mg/dL Normal 0.70-1.30 [facility] Comment on above: Performed By: #### B MP ####[id number] [facility] Glucose [Mass/volume] in Ser um or PlasmaOrdered By: Adin Boyce on 11-22-2022 Glucose [Mass/Vol] 90 mg/dL Normal 70-100 [facility] Comment on above: ADA recommended refe rence rangeRandom Glucose Reference Range is dependent on time and content of last meal. Glucose of more than 200 mg/dL in a nonstressed, ambulatory subject supports the diagnosis of Diabetes Mellitus. Result Comment: [place] Glucose Reference Range is dependent on time and content of last meal. Glucose of more than 200 mg/dL in a nonstressed, ambulatory subject supports the diagnosis of Diabetes Mellitus. ADA recommended reference range Performed By: #### B MP ####[id number] [facility] No Panel InformationOrdered By: Adin Boyce on 11-22-2022 Estimated GFR (CKD-EPI) > 60.0 mL/Min [facility] Creatinine Clearance (Chem 70.44 [facility] Potassium [Moles/volume] in Serum or PlasmaOrdered By: Adin Boyce on 11-22-2022 Potassium [Moles/Vol] 3.7 mmol/L Normal 3.5-5.1 [facility] Comment on above: Performed By: #### B MP ####[address] Serum or plasma anion gap de terminationOrdered By: Adin Boyce on 11-22-2022 Anion gap [Moles/Vol] 12.9 mmol/L Normal 6.0-15.0 [facility] Comment on above: Performed By: #### B MP ####[address] Sodium [Moles/volume] in Ser um or PlasmaOrdered By: Adin Boyce on 11-22-2022 Sodium [Moles/Vol] 138 mmol/L Normal 136-145 [facility] Comment on above: Performed By: #### B MP ####[address] Urea nitrogen [Mass/volume] in Serum or PlasmaOrdered By: Adin Boyce on 11-22-2022 Urea nitrogen [Mass/Vol] 27 mg/dL High 7-25 [facility] Comment on above: Performed By: #### B MP ####[address] Alanine aminotransferase [En zymatic activity/volume] in Serum or PlasmaOrdered By: Tricia Salazar on 11-21-2022 ALT [Catalytic activity/Vol] 14 U/L Normal 7-52 [facility] Comment on above: Performed By: #### C MP, CBC ####[address] Albumin [Mass/volume] in Ser um or Plasma by Bromocresol green (BCG) dye binding methoOrdered By: Tricia Evangelistar on 11-21-2022 Albumin BCG dye [Mass/Vol] 3.1 g/dL 3.5-5.7 [facility] Alkaline phosphatase [Enzyma tic activity/volume] in Serum or PlasmaOrdered By: Obaydah Daromar on 11-21-2022 ALP [Catalytic activity/Vol] 75 U/L Normal 34-104 [facility] Comment on above: Performed By: #### C MP, CBC ####[address] Aspartate aminotransferase [ Enzymatic activity/volume] in Serum or PlasmaOrdered By: Obaydah Daromar on 11-21-2022 AST [Catalytic activity/Vol] 18 U/L Normal 13-39 [facility] Comment on above: Performed By: #### C MP, CBC ####[address] Automated basophil %Ordered By: Obaydah Daromar on 11-21-2022 Basophils/100 WBC (Bld) 0.3 % Normal . [facility] Comment on above: Performed By: #### C MP, CBC ####[address] Automated basophil countOrde red By: Obaydah Daromar on 11-21-2022 Basophils (Bld) [#/Vol] 0.0 10*3/uL Normal 0.0-0.2 [facility] Comment on above: Result Comment: PERF ORMED BY:[address] [place], [place] [id number] MEDICAL DIRECTORANNIKA NOGUEIRA M.D. Performed By: #### C MP, CBC ####[address] Automated blood monocyte cou ntOrdered By: Obaydah Daromar on 11-21-2022 Monocytes (Bld) [#/Vol] 0.5 10*3/uL Normal 0.0-0.8 [facility] Comment on above: Performed By: #### C MP, CBC ####[address] Automated eosinophil %Ordere d By: Obaydah Daromar on 11-21-2022 Eosinophils/100 WBC (Bld) 0.1 % Normal . [facility] Comment on above: Performed By: #### C MP, CBC ####[address] Automated eosinophil countOr dered By: Obdahliadah Rennyomar on 11-21-2022 Eosinophils (Bld) [#/Vol] 0.0 10*3/uL Normal 0.0-0.45 [facility] Comment on above: Performed By: #### C MP, CBC ####[address] Automated monocyte %Ordered By: Obaydah Daromar on 11-21-2022 Monocytes/100 WBC (Bld) 7.0 % Normal . [facility] Comment on above: Performed By: #### C MP, CBC ####[address] Automated neutrophil %Ordere d By: Obaydah Rennyomar on 11-21-2022 Neutrophils/100 WBC (Bld) 80.5 % Normal . [facility] Comment on above: Performed By: #### C MP, CBC ####[address] Bilirubin.total [Mass/volume ] in Serum or PlasmaOrdered By: Kikodashannan Lawsonomar on 11-21-2022 Bilirubin [Mass/Vol] 0.8 mg/dL Normal 0.3-1.0 [facility] Comment on above: Performed By: #### C MP, CBC ####[address] Complete Blood Count Auto Di ffon 11-21-2022 Mean Corpuscular HGB Conc 34.4 g/dL Normal 32.5-35.6 [facility] Comment on above: Performed By: #### C MP, CBC ####[address] NRBC% 0.2 /100{WBC} Normal 0-0.5 [facility] Comment on above: Performed By: #### C MP, CBC ####[address] [address] [facility] Comprehensive Metabolic Pane negro 11-21-2022 Albumin [Mass/Vol] 3.1 g/dL Low 3.5-5.7 [facility] Comment on above: Performed By: #### C MP, CBC ####[address] [address] [facility] Anion gap [Moles/Vol] 11.4 mmol/L Normal 6.0-15.0 Th e [facility] Comment on above: Performed By: #### C MP, CBC ####[id number] [facility] Calcium [Mass/Vol] 8.1 mg/dL Low 8.6-10.3 [facility] Comment on above: Performed By: #### C MP, CBC ####[id number] [facility] Chloride [Moles/Vol] 104 mmol/L Normal 98-107 [facility] Comment on above: Performed By: #### C MP, CBC ####[id number] [facility] CO2 [Moles/Vol] 23.4 mmol/L Normal 21.0-31.0 [facility] Comment on above: Performed By: #### C MP, CBC ####[address] [address] [facility] Creatinine [Mass/Vol] 1.13 mg/dL Normal 0.70-1.30 [facility] Comment on above: Performed By: #### C MP, CBC ####[address] [address] [facility] Creatinine Clr Calc Pharmacy 68.09 Normal [facility] Comment on above: Result Comment: PERF ORMED BY:[address] [place], [place] [phone] MEDICAL JADEN NOGUEIRA M.D. Performed By: #### C MP, CBC ####[id number] [facility] GFR/1.73 sq M.predicted MDRD (S/P/Bld) [Vol rate/Area] mL/min/{1.73_m2} Normal [facility] Comment on above: Performed By: #### C MP, CBC ####[address] Glucose [Mass/Vol] 120 mg/dL High 70-100 [facility] Comment on above: Result Comment: [place] Glucose Reference Range is dependent on time and content of last meal. Glucose of more than 200 mg/dL in a nonstressed, ambulatory subject supports the diagnosis of Diabetes Mellitus. ADA recommended reference range Performed By: #### C MP, CBC ####[address] Potassium [Moles/Vol] 3.8 mmol/L Normal 3.5-5.1 [facility] Comment on above: Performed By: #### C MP, CBC ####[address] Sodium [Moles/Vol] 135 mmol/L Low 136-145 [facility] Comment on above: Performed By: #### C MP, CBC ####[address] Urea nitrogen [Mass/Vol] 28 mg/dL High 7-25 [facility] Comment on above: Performed By: #### C MP, CBC ####[address] Erythrocyte distribution wid th [Ratio] by Automated countOrdered By: Obdahliadashannan Daromar on 11-21-2022 Erythrocyte distribution width (RBC) [Ratio] 15.0 % High 12.0-14.8 [facility] Comment on above: Performed By: #### C MP, CBC ####[address] Erythrocytes [#/volume] in B lood by Automated countOrdered By: Obaydah Daromar on 11-21-2022 RBC (Bld) [#/Vol] 3.79 10*6/uL Low 3.90-5.60 [facility] Comment on above: Performed By: #### C MP, CBC ####[address] Hematocrit [Volume Fraction] of Blood by Automated countOrdered By: Obaydah Daromar on 11-21-2022 Hematocrit (Bld) [Volume fraction] 37.2 % Low 38.8-50.0 [facility] Comment on above: Performed By: #### C MP, CBC ####[address] Hemoglobin [Mass/volume] in BloodOrdered By: Obaydah Daromar on 11-21-2022 Hemoglobin (Bld) [Mass/Vol] 12.8 g/dL Low 13.0-17.0 [facility] Comment on above: Performed By: #### C MP, CBC ####[address] Leukocytes [#/volume] correc michelle for nucleated erythrocytes in Blood by Automated counOrdered By: Obaydah Daromar on 11-21-2022 WBC corrected for nucl RBC Auto (Bld) [#/Vol] 7.2 10*3/uL 4.1-10.5 [facility] Leukocytes [#/volume] in Blo od by Automated countOrdered By: Obaydah Daromar on 11-21-2022 WBC (Bld) [#/Vol] 7.2 10*3/uL Normal 4.1-10.5 [facility] Comment on above: Performed By: #### C MP, CBC ####[address] Lymphocytes [#/volume] in Bl ood by Automated countOrdered By: Obaydah Daromar on 11-21-2022 Lymphocytes (Bld) [#/Vol] 0.9 10*3/uL Low 1.00-4.8 [facility] Comment on above: Performed By: #### C MP, CBC ####[address] Lymphocytes/100 leukocytes i n Blood by Automated countOrdered By: Obdahliadashannan Lawsonomar on 11-21-2022 Lymphocytes/100 WBC (Bld) 12.1 % Normal . [facility] Comment on above: Performed By: #### C MP, CBC ####[facility] [id number] MCH [Entitic mass] by Automa michelle countOrdered By: Obdahliadashannan Lawsonomar on 11-21-2022 MCH (RBC) [Entitic mass] 33.8 pg Normal 27.5-35.2 [facility] Comment on above: Performed By: #### C MP, CBC ####[address] MCHC Auto (RBC) [Mass/Vol]Or dered By: Kikodasahnnan Lawsonomar on 11-21-2022 MCHC (RBC) [Mass/Vol] 34.4 g/dL 32.5-35.6 [facility] MCV [Entitic volume] by Auto mated countOrdered By: Kikodashannan Lawsonomar on 11-21-2022 MCV (RBC) [Entitic vol] 98.3 fL Normal 83.5-101 [facility] Comment on above: Performed By: #### C MP, CBC ####[facility] [id number] [place] [address] Neutrophils [#/volume] in Bl ood by Automated countOrdered By: Kikodashannan Lawsonomar on 11-21-2022 Neutrophils (Bld) [#/Vol] 5.8 10*3/uL Normal 1.8-7.7 [facility] Comment on above: Performed By: #### C MP, CBC ####[address] Nucleated erythrocytes [Pres ence] in Blood by Automated countOrdered By: Kikodashannan Lawsonomar on 11-21-2022 Nucleated RBC Auto Ql (Bld) 0.2 /100{WBC} 0-0.5 [facility] Platelet mean volume [Entiti c volume] in Blood by Automated countOrdered By: Obaydah Daromar on 11-21-2022 Platelet mean volume (Bld) [Entitic vol] 10.6 fL High 6.6-10.1 [facility] Comment on above: Performed By: #### C MP, CBC ####[address] Platelets [#/volume] in Bloo d by Automated countOrdered By: Obdahliadah Daromar on 11-21-2022 Platelets (Bld) [#/Vol] 85 10*3/uL Low 150-450 [facility] Comment on above: Performed By: #### C MP, CBC ####[address] Protein [Mass/volume] in Ser um or PlasmaOrdered By: Obdahliadah Daromar on 11-21-2022 Protein [Mass/Vol] 5.8 g/dL Low 6.4-8.9 [facility] Comment on above: Performed By: #### C MP, CBC ####[address] Serum globulin measurement b y calculation (mass/volume)Ordered By: Obdahliadah Rennyomar on 11-21-2022 Globulin (S) [Mass/Vol] 2.7 g/dL [facility] Comment on above: Performed By: #### C MP, CBC ####[address] Serum or plasma albumin/glob ulin mass ratioOrdered By: Obdahliadah Daromar on 11-21-2022 Albumin/Globulin [Mass ratio] 1.1 {ratio} [facility] Comment on above: Performed By: #### C MP, CBC ####[id number] [facility] Alanine aminotransferase [En zymatic activity/volume] in Serum or PlasmaOrdered By: Robert Potts on 11-20-2022 ALT [Catalytic activity/Vol] 18 U/L Normal 7-52 [facility] Comment on above: Performed By: #### H S TROP, HEPATIC, CMP, SCAN CBC, CK ####[address] [place] [address] [facility] Albumin [Mass/volume] in Ser um or Plasma by Bromocresol green (BCG) dye binding methoOrdered By: Robert Potts on 11-20-2022 Albumin BCG dye [Mass/Vol] 3.7 g/dL 3.5-5.7 [facility] Alkaline phosphatase [Enzyma tic activity/volume] in Serum or PlasmaOrdered By: Robert Potts on 11-20-2022 ALP [Catalytic activity/Vol] 89 U/L Normal 34-104 [facility] Comment on above: Performed By: #### H S TROP, HEPATIC, CMP, SCAN CBC, CK ####[id number] [facility] Ammonia [Moles/volume] in Pl asmaOrdered By: Robert Potts on 11-20-2022 Ammonia (P) [Moles/Vol] 18 umol/L Normal 11-35 [facility] Comment on above: Result Comment: PERF ORMED BY:[address] [place], [place] [id number] MEDICAL DIRECTORANNIKA NOGUEIRA M.D. Performed By: #### A MM ####[id number] [facility] Anisocytosis [Presence] in B lood by Light microscopyOrdered By: Robert Potts on 11-20-2022 Anisocytosis Ql (Bld) Slight Normal [facility] Comment on above: Performed By: #### H S TROP, HEPATIC, CMP, SCAN CBC, CK ####[id number] [facility] Aspartate aminotransferase [ Enzymatic activity/volume] in Serum or PlasmaOrdered By: Robert Potts on 11-20-2022 AST [Catalytic activity/Vol] 24 U/L Normal 13-39 [facility] Comment on above: Performed By: #### H S TROP, HEPATIC, CMP, SCAN CBC, CK ####[id number] [place] Automated basophil %Ordered By: Robert Potts on 11-20-2022 Basophils/100 WBC (Bld) 0.4 % Normal . [facility] Comment on above: Performed By: #### H S TROP, HEPATIC, CMP, SCAN CBC, CK ####[address] Automated basophil countOrde red By: Robert Potts on 11-20-2022 Basophils (Bld) [#/Vol] 0.0 10*3/uL Normal 0.0-0.2 [facility] Comment on above: Performed By: #### H S TROP, HEPATIC, CMP, SCAN CBC, CK ####[address] Automated blood monocyte cou ntOrdered By: Robert Potts on 11-20-2022 Monocytes (Bld) [#/Vol] 1.1 10*3/uL High 0.0-0.8 [facility] Comment on above: Performed By: #### H S TROP, HEPATIC, CMP, SCAN CBC, CK ####[address] Automated eosinophil %Ordere d By: Robert Potts on 11-20-2022 Eosinophils/100 WBC (Bld) 0.2 % Normal . [facility] Comment on above: Performed By: #### H S TROP, HEPATIC, CMP, SCAN CBC, CK ####[address] Automated eosinophil countOr dered By: Robert Potts on 11-20-2022 Eosinophils (Bld) [#/Vol] 0.0 10*3/uL Normal 0.0-0.45 [facility] Comment on above: Performed By: #### H S TROP, HEPATIC, CMP, SCAN CBC, CK ####[address] Automated erythrocytes count in urine sediment (number/area)Ordered By: Robert Potts on 11-20-2022 RBC Auto (Urine sed) [#/Area] 3-4 [HPF] 0-4 [facility] Automated leukocytes count i n urine sediment (number/area)Ordered By: Robert Potts on 11-20-2022 WBC Auto (Urine sed) [#/Area] 3-4 [HPF] 0-4 [facility] Automated monocyte %Ordered By: Robert Potts on 11-20-2022 Monocytes/100 WBC (Bld) 9.3 % Normal . [facility] Comment on above: Performed By: #### H S TROP, HEPATIC, CMP, SCAN CBC, CK ####[address] [place] Automated neutrophil %Ordere d By: Robert Potts on 11-20-2022 Neutrophils/100 WBC (Bld) 74.0 % Normal . [facility] Comment on above: Performed By: #### H S TROP, HEPATIC, CMP, SCAN CBC, CK ####[address] Automated urine color determ inationOrdered By: Robert Potts on 11-20-2022 Color (U) Dark yellow Critically abnormal Yellow [facility] Comment on above: Order Comment: Name Collection Type:: Voided Performed By: #### A DDONUAPLUS, CUU ####[address] Bilirubin Test strip Ql (U)O rdered By: Robert Potts on 11-20-2022 Bilirubin Ql (U) 2+ Negative [facility] Bilirubin.direct [Mass/volum e] in Serum or PlasmaOrdered By: Robert Potts on 11-20-2022 Bilirubin.direct [Mass/Vol] 0.50 mg/dL 0.03-0.18 [facility] Bilirubin.total [Mass/volume ] in Serum or PlasmaOrdered By: Robert Potts on 11-20-2022 Bilirubin [Mass/Vol] 1.9 mg/dL High 0.3-1.0 [facility] Comment on above: Samples from patient s [...] S TROP, HEPATIC, CMP, SCAN CBC, CK ####[address] [place] [id number] [facility] C reactive protein [Mass/vol ume] in Serum or PlasmaOrdered By: Tricia Salazar on 11-20-2022 CRP [Mass/Vol] 5.4 mg/dL 0.0-0.5 [facility] C-Reactive Proteinon 023 C-Reactive Protein 5.4 mg/dL High 0.0-0.5 [facility] Comment on above: Order Comment: Comme nt add on Result Comment: PERF ORMED BY:[address] [place], [place] [phone] MEDICAL DIRECTORANNIKA NOGUEIRA M.D. Performed By: #### E SR, CRP ####[address] [place] [id number] [facility] CT cervical spine wo conon 1 CT cervical spine wo con Normal [facility] Calcium [Mass/volume] in Ser um or PlasmaOrdered By: Robert Potts on 11-20-2022 Calcium [Mass/Vol] 8.7 mg/dL Normal 8.6-10.3 [facility] Comment on above: Performed By: #### H S TROP, HEPATIC, CMP, SCAN CBC, CK ####[id number] [facility] Capillary blood glucose dash urement by glucometer (mass/volume)Ordered By: PROVIDER TEMMan on 11-20-2022 Glucose [Mass/Vol] 126 mg/dL Normal [facility] Comment on above: Random Glucose Refer ence Range is dependent on time and content of last meal. Glucose of more than 200 mg/dL in a nonstressed, ambulatory subject supports the diagnosis of Diabetes Mellitus. Result Comment: [facility] Glucose Reference Range is dependent on time and content of last meal. Glucose of more than 200 mg/dL in a nonstressed, ambulatory subject supports the diagnosis of Diabetes Mellitus. Performed By: #### G RE ####Point of Care testing, Carbon dioxide, total [Moles /volume] in Serum or PlasmaOrdered By: Robert Delroy on 11-20-2022 CO2 [Moles/Vol] 25.3 mmol/L Normal 21.0-31.0 [facility] Comment on above: Performed By: #### H S TROP, HEPATIC, CMP, SCAN CBC, CK ####[address] [place] [id number] [facility] Chloride [Moles/volume] in S sammy or PlasmaOrdered By: Robert Potts on 11-20-2022 Chloride [Moles/Vol] 102 mmol/L Normal 98-107 [facility] Comment on above: Performed By: #### H S TROP, HEPATIC, CMP, SCAN CBC, CK ####[id number] [facility] Comprehensive Metabolic Pane negro 11-20-2022 Albumin [Mass/Vol] 3.7 g/dL Normal 3.5-5.7 [facility] Comment on above: Performed By: #### H S TROP, HEPATIC, CMP, SCAN CBC, CK ####[id number] [facility] Creatinine Clr Calc Pharmacy 58.92 Normal [facility] Comment on above: Performed By: #### H S TROP, HEPATIC, CMP, SCAN CBC, CK ####[id number] [facility] GFR/1.73 sq M.predicted MDRD (S/P/Bld) [Vol rate/Area] mL/min/{1.73_m2} Normal [facility] Comment on above: Performed By: #### H S TROP, HEPATIC, CMP, SCAN CBC, CK ####[id number] [facility] Creatine kinase [Enzymatic a ctivity/volume] in Serum or PlasmaOrdered By: Robert Potts on 11-20-2022 CK [Catalytic activity/Vol] 62 U/L Normal 30-223 [facility] Comment on above: Performed By: #### H S TROP, HEPATIC, CMP, SCAN CBC, CK ####[address] [address] [facility] Creatinine [Mass/volume] in Serum or PlasmaOrdered By: Robert Pickeringarthy on 11-20-2022 Creatinine [Mass/Vol] 1.24 mg/dL Normal 0.70-1.30 [facility] Comment on above: Performed By: #### H S TROP, HEPATIC, CMP, SCAN CBC, CK ####[id number] [facility] Dipstick and Microscopicon 1 Appearance (U) Clear Normal Clear [facility] Comment on above: Order Comment: Name Collection Type:: Voided Performed By: #### A DDONUAPLUS, CUU ####[address] [address] [facility] Bacteria,Urine None Seen Normal None Seen [facility] Comment on above: Order Comment: Name Collection Type:: Voided Performed By: #### A DDONUAPLUS, CUU ####[address] [address] [facility] Bilirubin,Urine 2+ High Negative [facility] Comment on above: Order Comment: Name Collection Type:: Voided Performed By: #### A DDONUAPLUS, CUU ####[address] [address] [facility] Glucose Ql (U) Normal Normal Normal [facility] Comment on above: Order Comment: Name Collection Type:: Voided Performed By: #### A DDONUAPLUS, CUU ####[address] [address] [facility] Hyaline Casts,Urine 9-19 High 0-8 [facility] Comment on above: Order Comment: Name Collection Type:: Voided Result Comment: PERF ORMED BY:[address] [place], [place] [id number] MEDICAL DIRECTORANNIKA NOGUEIRA M.D. Performed By: #### A DDONUAPLUS, CUU ####[address] [address] [facility] Ketones Ql (U) Trace High Negative [facility] Comment on above: Order Comment: Name Collection Type:: Voided Performed By: #### A DDONUAPLUS, CUU ####[address] [address] [facility] Leukocyte esterase Test strip Ql (U) 1+ High Negative [facility] Comment on above: Order Comment: Name Collection Type:: Voided Performed By: #### A DDONUAPLUS, CUU ####[address] [address] [facility] Nitrite,Urine Positive High Negative [facility] Comment on above: Order Comment: Name Collection Type:: Voided Performed By: #### A DDONUAPLUS, CUU ####[address] [address] [facility] Occult Blood,Urine Negative Normal Negative [facility] Comment on above: Order Comment: Name Collection Type:: Voided Result Comment: PERF ORMED BY:[address] [place], [place] [phone] MEDICAL DIRECTORANNIKA NOGUEIRA M.D. Performed By: #### A DDONUAPLUS, CUU ####[address] [address] [facility] RBC,Urine 3-4 Normal 0-4 [facility] Comment on above: Order Comment: Name Collection Type:: Voided Performed By: #### A DDONUAPLUS, CUU ####[address] [address] [facility] Specificy [place],Urine 1.026 Normal 1.001-1.03 0 [facility] Comment on above: Order Comment: Name Collection Type:: Voided Performed By: #### A DDONUAPLUS, CUU ####[place] [id number] [facility] Squamous Epithelial Cell,Urine 0-1 Normal 0-2 [facility] Comment on above: Order Comment: Name Collection Type:: Voided Performed By: #### A DDONUAPLUS, CUU ####[place] [id number] [facility] Urobilinogen,Urine Normal Normal Normal The [facility] Comment on above: Order Comment: Name Collection Type:: Voided Performed By: #### A DDONUAPLUS, CUU ####[place] [id number] [facility] WBC,Urine 3-4 Normal 0-4 [facility] Comment on above: Order Comment: Name Collection Type:: Voided Performed By: #### A DDONUAPLUS, CUU ####[place] [id number] [facility] ECG 12 lead ECGon 11-20-2022 ECG 12 lead ECG Normal [facility] Erythrocyte Sedimentation Ra sung 11-20-2022 ESR (Bld) [Velocity] 17 mm/h Normal 0-19 [facility] Comment on above: Order Comment: Comme nt add on Result Comment: PERF ORMED BY:[address] [place], [place] [phone] MEDICAL JADEN NOGUEIRA M.D. Performed By: #### E SR, CRP ####[address] Erythrocyte distribution wid th [Ratio] by Automated countOrdered By: Robert Potts on 11-20-2022 Erythrocyte distribution width (RBC) [Ratio] 15.3 % High 12.0-14.8 [facility] Comment on above: Performed By: #### H S TROP, HEPATIC, CMP, SCAN CBC, CK ####[place] [id number] [facility] Erythrocyte sedimentation ra te by Photometric methodOrdered By: Tricia Salazar on 11-20-2022 ESR Photometric method (Bld) [Velocity] 17 mm/hr 0-19 [facility] Erythrocytes [#/volume] in B lood by Automated countOrdered By: Robert Potts on 11-20-2022 RBC (Bld) [#/Vol] 4.43 10*6/uL Normal 3.90-5.60 [facility] Comment on above: Performed By: #### H S TROP, HEPATIC, CMP, SCAN CBC, CK ####[address] [place] [address] [facility] Glucose Poct Glucometerson 1 0 Commemt1 Glu2: Cleaned Meter Normal The [facility] Comment on above: Result Comment: PERF ORMED BY:[address] [place], [place] [phone] MEDICAL DIRECTORANNIKA NOGUEIRA M.D. Performed By: #### G LUERIC ####Point of Care testing, Glucose [Mass/volume] in Ser um or PlasmaOrdered By: Robert Potts on 11-20-2022 Glucose [Mass/Vol] 117 mg/dL High 70-100 [facility] Comment on above: ADA recommended refe rence rangeRandom Glucose Reference Range is dependent on time and content of last meal. Glucose of more than 200 mg/dL in a nonstressed, ambulatory subject supports the diagnosis of Diabetes Mellitus. Result Comment: [place] Glucose Reference Range is dependent on time and content of last meal. Glucose of more than 200 mg/dL in a nonstressed, ambulatory subject supports the diagnosis of Diabetes Mellitus. ADA recommended reference range Performed By: #### H S TROP, HEPATIC, CMP, SCAN CBC, CK ####[address] [place] [address] [facility] Hematocrit [Volume Fraction] of Blood by Automated countOrdered By: Robert Potts on 11-20-2022 Hematocrit (Bld) [Volume fraction] 44.0 % Normal 38.8-50.0 [facility] Comment on above: Performed By: #### H S TROP, HEPATIC, CMP, SCAN CBC, CK ####[place] [id number] [place] Hemoglobin [Mass/volume] in BloodOrdered By: Robert Potts on 11-20-2022 Hemoglobin (Bld) [Mass/Vol] 14.9 g/dL Normal 13.0-17.0 [facility] Comment on above: Performed By: #### H S TROP, HEPATIC, CMP, SCAN CBC, CK ####[address] [place] [address] [facility] Hepatic Panelon 11-20-2022 Bilirubin,Indirect 1.4 mg/dL Normal [facility] Comment on above: Result Comment: PERF ORMED BY:[address] [place], [place] [phone] MEDICAL DIRECTORANNIKA NOGUEIRA M.D. Performed By: #### H S TROP, HEPATIC, CMP, SCAN CBC, CK ####[address] [place] [place] [address] [facility] Bilirubin.indirect [Mass/Vol] 0.50 mg/dL High 0.03-0.18 [facility] Comment on above: Performed By: #### H S TROP, HEPATIC, CMP, SCAN CBC, CK ####[address] [address] [facility] Ketones Auto test strip (U) [Mass/Vol]Ordered By: Robert Potts on 11-20-2022 Ketones (U) [Mass/Vol] Trace Negative [facility] - UrinalysisOrder ed By: Robert Potts on 11-20-2022 Hyaline casts LM Ql (Urine sed) 9-19 [LPF] 0-8 [facility] Leukocytes [#/volume] correc michelle for nucleated erythrocytes in Blood by Automated counOrdered By: Robert Potts on 11-20-2022 WBC corrected for nucl RBC Auto (Bld) [#/Vol] 12.1 10*3/uL 4.1-10.5 [facility] Leukocytes [#/volume] in Blo od by Automated countOrdered By: Robert Potts on 11-20-2022 WBC (Bld) [#/Vol] 12.1 10*3/uL High 4.1-10.5 [facility] Comment on above: Performed By: #### H S TROP, HEPATIC, CMP, SCAN CBC, CK ####[address] Lymphocytes [#/volume] in Bl ood by Automated countOrdered By: Robert Potts on 11-20-2022 Lymphocytes (Bld) [#/Vol] 1.9 10*3/uL Normal 1.00-4.8 [facility] Comment on above: Performed By: #### H S TROP, HEPATIC, CMP, SCAN CBC, CK ####[address] Lymphocytes/100 leukocytes i n Blood by Automated countOrdered By: Robert Potts on 11-20-2022 Lymphocytes/100 WBC (Bld) 16.1 % Normal . [facility] Comment on above: Performed By: #### H S TROP, HEPATIC, CMP, SCAN CBC, CK ####[address] MCH [Entitic mass] by Automa michelle countOrdered By: Robert Potts on 11-20-2022 MCH (RBC) [Entitic mass] 33.7 pg Normal 27.5-35.2 [facility] Comment on above: Performed By: #### H S TROP, HEPATIC, CMP, SCAN CBC, CK ####[address] MCHC Auto (RBC) [Mass/Vol]Or dered By: Robert Potts on 11-20-2022 MCHC (RBC) [Mass/Vol] 33.8 g/dL 32.5-35.6 [facility] MCV [Entitic volume] by Auto mated countOrdered By: Robert Potts on 11-20-2022 MCV (RBC) [Entitic vol] 99.4 fL Normal 83.5-101 [facility] Comment on above: Performed By: #### H S TROP, HEPATIC, CMP, SCAN CBC, CK ####[address] Macrocytes LM Ql (Bld)Ordere d By: Robert Potts on 11-20-2022 Macrocytes Ql (Bld) Slight [facility] Monocyte distribution width [Entitic volume] in Blood by AutomatedOrdered By: Robert Potts on 11-20-2022 Monocyte distribution width Auto (Bld) [Entitic vol] 20.87 % 0.00-20.00 [facility] Comment on above: The predictive value of MDW for identifying sepsis in patients with hematological abnormalities has not been established Neutrophils [#/volume] in Bl ood by Automated countOrdered By: Robert Potts on 11-20-2022 Neutrophils (Bld) [#/Vol] 8.9 10*3/uL High 1.8-7.7 [facility] Comment on above: Performed By: #### H S TROP, HEPATIC, CMP, SCAN CBC, CK ####[facility] [id number] Nitrite Test strip Ql (U)Ord ered By: Robert Potts on 11-20-2022 Nitrite Ql (U) Positive Negative [facility] No Panel InformationOrdered By: Robert Potts on 11-20-2022 Estimated GFR (CKD-EPI) > 60.0 mL/Min [facility] Creatinine Clearance (Chem 58.92 [facility] No Panel InformationOrdered By: PROVIDER TEMP on 11-20-2022 Bedside Glucose Comment Glu2: cleaned meter [facility] Nucleated erythrocytes [Pres ence] in Blood by Automated countOrdered By: Robert Potts on 11-20-2022 Nucleated RBC Auto Ql (Bld) 0.1 /100{WBC} 0-0.5 [facility] Platelet adequacy [Presence] in Blood by Light microscopyOrdered By: Robert Potts on 11-20-2022 Platelets LM Ql (Bld) Decreased Normal [facility] Platelet mean volume [Entiti c volume] in Blood by Automated countOrdered By: Robert Potts on 11-20-2022 Platelet mean volume (Bld) [Entitic vol] 10.0 fL Normal 6.6-10.1 [facility] Comment on above: Performed By: #### H S TROP, HEPATIC, CMP, SCAN CBC, CK ####[place] [id number] [facility] Platelet morphology finding [Identifier] in BloodOrdered By: Robert Potts on 11-20-2022 Platelet morphology finding Nom (Bld) Normal Normal [facility] Platelets [#/volume] in Bloo d by Automated countOrdered By: Rboert Potts on 11-20-2022 Platelets (Bld) [#/Vol] 100 10*3/uL Low 150-450 [facility] Comment on above: Performed By: #### H S TROP, HEPATIC, CMP, SCAN CBC, CK ####[address] Polychromasia [Presence] in Blood by Light microscopyOrdered By: Robert Potts on 11-20-2022 Polychromasia LM Ql (Bld) Slight [facility] Potassium [Moles/volume] in Serum or PlasmaOrdered By: Robert Potts on 11-20-2022 Potassium [Moles/Vol] 3.8 mmol/L Normal 3.5-5.1 [facility] Comment on above: Performed By: #### H S TROP, HEPATIC, CMP, SCAN CBC, CK ####[address] Protein [Mass/volume] in Ser um or PlasmaOrdered By: Robert Potts on 11-20-2022 Protein [Mass/Vol] 6.7 g/dL Normal 6.4-8.9 [facility] Comment on above: Performed By: #### H S TROP, HEPATIC, CMP, SCAN CBC, CK ####[place] [id number] [facility] RBC morphologyOrdered By: Anibal Potts on 11-20-2022 RBC morphology finding Nom (Bld) N/A [facility] Scan and CBCon 11-20-2022 Macrocytosis Slight Normal [facility] Comment on above: Performed By: #### H S TROP, HEPATIC, CMP, SCAN CBC, CK ####[address] Mean Corpuscular HGB Conc 33.8 g/dL Normal 32.5-35.6 [facility] Comment on above: Performed By: #### H S TROP, HEPATIC, CMP, SCAN CBC, CK ####[address] Monocytes/100 WBC (Bld) 20.87 % High 0.00-20.00 [facility] Comment on above: Result Comment: The predictive value of MDW for identifying sepsis in patients with hematological abnormalities has not been established Performed By: #### H S TROP, HEPATIC, CMP, SCAN CBC, CK ####[address] NRBC% 0.1 /100{WBC} Normal 0-0.5 [facility] Comment on above: Performed By: #### H S TROP, HEPATIC, CMP, SCAN CBC, CK ####[address] Platelet Estimate Decreased Normal Normal [facility] Comment on above: Performed By: #### H S TROP, HEPATIC, CMP, SCAN CBC, CK ####[address] Platelet Morphology Normal Normal Normal [facility] Comment on above: Result Comment: PERF ORMED BY:[address] [place], [place] [phone] MEDICAL DIRECTORANNIKA NOGUEIRA M.D. Performed By: #### H S TROP, HEPATIC, CMP, SCAN CBC, CK ####[address] Polychromasia Slight Normal [facility] Comment on above: Performed By: #### H S TROP, HEPATIC, CMP, SCAN CBC, CK ####[address] Serum globulin measurement b y calculation (mass/volume)Ordered By: Robert Potts on 11-20-2022 Globulin (S) [Mass/Vol] 3.0 g/dL [facility] Comment on above: Performed By: #### H S TROP, HEPATIC, CMP, SCAN CBC, CK ####[place] [id number] Serum or plasma albumin/glob ulin mass ratioOrdered By: Robert Potts on 11-20-2022 Albumin/Globulin [Mass ratio] 1.2 {ratio} [facility] Comment on above: Performed By: #### H S TROP, HEPATIC, CMP, SCAN CBC, CK ####[address] Serum or plasma anion gap de terminationOrdered By: Robert Potts on 11-20-2022 Anion gap [Moles/Vol] 12.5 mmol/L Normal 6.0-15.0 [facility] Comment on above: Performed By: #### H S TROP, HEPATIC, CMP, SCAN CBC, CK ####[address] Serum or plasma non-glucuron idated bilirubin measurement (mass/volume)Ordered By: Robert Potts on 11-20-2022 Bilirubin.indirect [Mass/Vol] 1.4 mg/dL [facility] Sodium [Moles/volume] in Ser um or PlasmaOrdered By: Robert Potts on 11-20-2022 Sodium [Moles/Vol] 136 mmol/L Normal 136-145 [facility] Comment on above: Performed By: #### H S TROP, HEPATIC, CMP, SCAN CBC, CK ####[address] Specific gravity Auto test s trip (U) [Rel density]Ordered By: Robert Potts on 11-20-2022 Specific gravity (U) [Rel density] 1.026 1.001-1.03 0 [facility] Squamous epithelial cells de tection in urine sediment by light microscopyOrdered By: Robert Potts on 11-20-2022 Epithelial cells.squamous LM Ql (Urine sed) 0-1 [HPF] 0-2 [facility] Troponin I High Sensitivityo n 11-20-2022 Troponin I High Sensitivity 59.7 pg/mL Off scale high 0.0-20.0 [facility] Comment on above: Result Comment: Crit ical Result : Called to and read back by: ALYSHA WHITMORE at: 11/20/2022 09:08:22 by:SIGRIDERFORMED BY:[place] [address] [address], [place] [phone] MEDICAL DIRECTORANNIKA NOGUEIRA M.D. Performed By: #### H S TROP, HEPATIC, CMP, SCAN CBC, CK ####[address] [address] [facility] Troponin I.cardiac [Mass/vol ume] in Serum or Plasma by Detection limit <= 0.01 ng/Ordered By: Robert Potts on 11-20-2022 Troponin I.cardiac DL <= 0.01 ng/mL [Mass/Vol] 59.7 pg/mL 0.0-20.0 [facility] Comment on above: Critical Result : Ca lled to and read back by: ALYSHA WHITMORE at: 11/20/2022 09:08:22 by:NISHA Urate [Mass/volume] in Serum or PlasmaOrdered By: Tricia Salazar on 11-20-2022 Urate [Mass/Vol] 8.1 mg/dL High 4.4-7.6 [facility] Comment on above: Order Comment: Comme nt add on Result Comment: PERF ORMED BY:[place] [address], [place] [phone] MEDICAL DIRECTORANNIKA NOGUEIRA M.D. Performed By: #### U JOSE L ####[address] [address] [facility] Urea nitrogen [Mass/volume] in Serum or PlasmaOrdered By: Robert Potts on 11-20-2022 Urea nitrogen [Mass/Vol] 21 mg/dL Normal 7-25 [facility] Comment on above: Performed By: #### H S TROP, HEPATIC, CMP, SCAN CBC, CK ####[address] [address] [facility] Urine Cultureon 11-20-2022 Bacteria identified Cx Nom (U) No Growth 2 Days PERFORMED BY: [facility] [address] [place] [address] PATHOLOGIST ATMOSPHERIC PHYSICIST ANNIKA NOGUEIRA M.D. Normal [facility] Comment on above: Performed By: #### A BRIANNA CASTANEDAU ####[address] [place] [address] [facility] Urine bacteria detection by automated methodOrdered By: Robert Potts on 11-20-2022 Bacteria Auto Ql (U) None seen None Seen [facility] Urine clarity by refractomet ry automatedOrdered By: Robert Potts on 11-20-2022 Clarity Refractometry automated (U) Clear Clear [facility] Urine culture routineOrdered By: Robert Potts on 11-20-2022 Bacteria identified Cx Nom (U) No Growth 2 Days [facility] Bacteria identified Cx Nom (U) No Growth 2 Days [facility] Urine glucose measurement by automated test strip (mass/volume)Ordered By: Robert Potts on 11-20-2022 Glucose Auto test strip (U) [Mass/Vol] Normal mg/dL Normal [facility] Urine hemoglobin detection b y automated test stripOrdered By: Robert Potts on 11-20-2022 Hemoglobin Auto test strip Ql (U) Negative Negative [facility] Urine leukocyte esterase det ection by automated test stripOrdered By: Robert Potts on 11-20-2022 Leukocyte esterase Auto test strip Ql (U) 1+ Negative [facility] Urine pH measurement by auto mated test stripOrdered By: Robert Potts on 11-20-2022 pH (U) 5.0 [pH] Normal 5.0-9.0 [facility] Comment on above: Order Comment: Name Collection Type:: Voided Performed By: #### A SARAH CASTANEDA ####[address] [place] [address] [facility] Urine protein measurement by automated test strip (mass/volume)Ordered By: Robert Potts on 11-20-2022 Protein (U) [Mass/Vol] 300 mg/dL High Negative [facility] Comment on above: Order Comment: Name Collection Type:: Voided Performed By: #### A DDONUAPLUS, CUU ####[place] [id number] [facility] Urobilinogen Auto test strip (U) [Mass/Vol]Ordered By: Robert Potts on 11-20-2022 Urobilinogen (U) [Mass/Vol] Normal mg/dL Normal [facility] XR knee RT 2Von 11-20-2022 XR knee RT 2V Normal [facility] Alanine aminotransferase [En zymatic activity/volume] in Serum or PlasmaOrdered By: Obdahliadashannan Lawsonomar on 11-03-2022 ALT [Catalytic activity/Vol] 44 U/L Normal 7-52 [facility] Comment on above: Performed By: #### C MP ####[address] Albumin [Mass/volume] in Ser um or Plasma by Bromocresol green (BCG) dye binding methoOrdered By: Obdahliadah Daromar on 11-03-2022 Albumin BCG dye [Mass/Vol] 3.2 g/dL 3.5-5.7 [facility] Alkaline phosphatase [Enzyma tic activity/volume] in Serum or PlasmaOrdered By: Obaydah Daromar on 11-03-2022 ALP [Catalytic activity/Vol] 67 U/L Normal 34-104 [facility] Comment on above: Performed By: #### C MP ####[place] [id number] [facility] Aspartate aminotransferase [ Enzymatic activity/volume] in Serum or PlasmaOrdered By: Obaydah Daromar on 11-03-2022 AST [Catalytic activity/Vol] 69 U/L High 13-39 [facility] Comment on above: Performed By: #### C MP ####[address] Bilirubin.total [Mass/volume ] in Serum or PlasmaOrdered By: Obaydah Daromar on 11-03-2022 Bilirubin [Mass/Vol] 0.4 mg/dL Normal 0.3-1.0 [facility] Comment on above: Performed By: #### C MP ####[address] [address] [facility] Calcium [Mass/volume] in Ser um or PlasmaOrdered By: Obaydah Daromar on 11-03-2022 Calcium [Mass/Vol] 8.4 mg/dL Low 8.6-10.3 [facility] Comment on above: Performed By: #### C MP ####[place] [id number] [facility] Carbon dioxide, total [Moles /volume] in Serum or PlasmaOrdered By: Obdahliadashannan Bergomar on 11-03-2022 CO2 [Moles/Vol] 28.7 mmol/L Normal 21.0-31.0 [facility] Comment on above: Performed By: #### C MP ####[place] [id number] [facility] Chloride [Moles/volume] in S sammy or PlasmaOrdered By: ObRailCommdah Bergomar on 11-03-2022 Chloride [Moles/Vol] 107 mmol/L Normal 98-107 [facility] Comment on above: Performed By: #### C MP ####[address] [address] [facility] Comprehensive Metabolic Pane negro 11-03-2022 Albumin [Mass/Vol] 3.2 g/dL Low 3.5-5.7 [facility] Comment on above: Performed By: #### C MP ####[place] [id number] [facility] Creatinine Clr Calc Pharmacy 69.59 Normal [facility] Comment on above: Result Comment: PERF ORMED BY:[address] [address] [place], [place] [phone] MEDICAL DIRECTORANNIKA NOGUEIRA M.D. Performed By: #### C MP ####[address] [address] [facility] GFR/1.73 sq M.predicted MDRD (S/P/Bld) [Vol rate/Area] mL/min/{1.73_m2} Normal [facility] Comment on above: Performed By: #### C MP ####[place] [address] [place] [id number] [facility] Creatinine [Mass/volume] in Serum or PlasmaOrdered By: Obdahliadashannan Lawsonomar on 11-03-2022 Creatinine [Mass/Vol] 1.05 mg/dL Normal 0.70-1.30 [facility] Comment on above: Performed By: #### C MP ####[address] [address] [facility] Glucose [Mass/volume] in Ser um or PlasmaOrdered By: Obdahliadashannan Lawsonomar on 11-03-2022 Glucose [Mass/Vol] 81 mg/dL Normal 70-100 [facility] Comment on above: ADA recommended refe rence rangeRandom Glucose Reference Range is dependent on time and content of last meal. Glucose of more than 200 mg/dL in a nonstressed, ambulatory subject supports the diagnosis of Diabetes Mellitus. Result Comment: [place] Glucose Reference Range is dependent on time and content of last meal. Glucose of more than 200 mg/dL in a nonstressed, ambulatory subject supports the diagnosis of Diabetes Mellitus. ADA recommended reference range Performed By: #### C MP ####[address] [address] [facility] No Panel InformationOrdered By: Kikodashannan Lawsonomar on 11-03-2022 Estimated GFR (CKD-EPI) > 60.0 mL/Min [facility] Creatinine Clearance (Chem 69.59 [facility] Potassium [Moles/volume] in Serum or PlasmaOrdered By: Obdahliadashannan Daromar on 11-03-2022 Potassium [Moles/Vol] 3.6 mmol/L Normal 3.5-5.1 [facility] Comment on above: Performed By: #### C MP ####[place] [id number] [facility] Protein [Mass/volume] in Ser um or PlasmaOrdered By: Obdahliadah Daromar on 11-03-2022 Protein [Mass/Vol] 6.0 g/dL Low 6.4-8.9 [facility] Comment on above: Performed By: #### C MP ####[place] [id number] [facility] Serum globulin measurement b y calculation (mass/volume)Ordered By: Obaydah Daromar on 11-03-2022 Globulin (S) [Mass/Vol] 2.8 g/dL Normal [facility] Comment on above: Performed By: #### C MP ####[place] [id number] [facility] Serum or plasma albumin/glob ulin mass ratioOrdered By: Obaydah Daromar on 11-03-2022 Albumin/Globulin [Mass ratio] 1.1 {ratio} [facility] Comment on above: Performed By: #### C MP ####[place] [id number] [facility] Serum or plasma anion gap de terminationOrdered By: Obaydah Daromar on 11-03-2022 Anion gap [Moles/Vol] 7.9 mmol/L Normal 6.0-15.0 [facility] Comment on above: Performed By: #### C MP ####[place] [id number] [facility] Sodium [Moles/volume] in Ser um or PlasmaOrdered By: Obaydah Daromar on 11-03-2022 Sodium [Moles/Vol] 140 mmol/L Normal 136-145 [facility] Comment on above: Performed By: #### C MP ####[place] [id number] [facility] Urea nitrogen [Mass/volume] in Serum or PlasmaOrdered By: Obaydah Daromar on 11-03-2022 Urea nitrogen [Mass/Vol] 20 mg/dL Normal 7-25 [facility] Comment on above: Performed By: #### C MP ####[place] [id number] [facility] BioFire Detectedon 3 BioFire Detected Detected Critically abnormal Not Detecte The [facility]ending [facility] Comment on above: Result Comment: This is a duplicate RP2.1 COVID (PCR) result to be used for statistical tracking purpose only.PERFORMED BY:[address] [place], [place] [phone] MEDICAL DIRECTORANNIKA NOGUEIRA M.D. Performed By: #### R RUBY PANEL UPP., BIOFIRECOVDET ####[address] [address] [facility] COVID-19 Detected/Not Detect edOrdered By: Tricia Salazar on 11-02-2022 SARS-CoV-2 (COVID-19) RNA GIANLUCA+non-probe Ql (Nph) Detected Not Detecte [facility] Comment on above: This is a duplicate RP2.1 COVID (PCR) result to be used for statistical tracking purpose only. Comprehensive Metabolic Pane negro 11-02-2022 Albumin [Mass/Vol] 3.2 g/dL Low 3.5-5.7 The [facility]ending [facility] Comment on above: Performed By: #### C MP, URIC ####[address] [address] [facility] Albumin/Globulin [Mass ratio] 1.0 {ratio} Normal The [facility]ending [facility] Comment on above: Performed By: #### C MP, URIC ####[address] [address] [facility] ALP [Catalytic activity/Vol] 67 U/L Normal 34-104 The [facility]ending [facility] Comment on above: Performed By: #### C MP, URIC ####[address] [address] [facility] ALT [Catalytic activity/Vol] 41 U/L Normal 7-52 The [facility]ending [facility] Comment on above: Performed By: #### C MP, URIC ####[place] [id number] [facility] Anion gap [Moles/Vol] 9.1 mmol/L Normal 6.0-15.0 The [facility]ending [facility] Comment on above: Performed By: #### C MP, URIC ####[address] AST [Catalytic activity/Vol] 66 U/L High 13-39 The [facility]ending [facility] Comment on above: Performed By: #### C MP, URIC ####[address] Bilirubin [Mass/Vol] 0.6 mg/dL Normal 0.3-1.0 The [facility]ending [facility] Comment on above: Performed By: #### C MP, URIC ####[address] Calcium [Mass/Vol] 8.4 mg/dL Low 8.6-10.3 The [facility]ending [facility] Comment on above: Performed By: #### C MP, URIC ####[address] Chloride [Moles/Vol] 106 mmol/L Normal 98-107 The [facility]ending [facility] Comment on above: Performed By: #### C MP, URIC ####[address] CO2 [Moles/Vol] 26.0 mmol/L Normal 21.0-31.0 The [facility]ending [facility] Comment on above: Performed By: #### C MP, URIC ####[address] Creatinine [Mass/Vol] 1.10 mg/dL Normal 0.70-1.30 The [facility]ending [facility] Comment on above: Performed By: #### C MP, URIC ####[address] Creatinine Clr Calc Pharmacy 66.42 Normal The Pending [facility] Comment on above: Performed By: #### C MP, URIC ####[address] GFR/1.73 sq M.predicted MDRD (S/P/Bld) [Vol rate/Area] mL/min/{1.73_m2} Normal The Pending [facility] Comment on above: Performed By: #### C MP, URIC ####[address] [place] [address] [place] Globulin (S) [Mass/Vol] 3.1 g/dL Normal The Pending [facility] Comment on above: Performed By: #### C MP, URIC ####[address] Glucose [Mass/Vol] 124 mg/dL High 70-100 The Pending [facility] Comment on above: Result Comment: [facility] Glucose Reference Range is dependent on time and content of last meal. Glucose of more than 200 mg/dL in a nonstressed, ambulatory subject supports the diagnosis of Diabetes Mellitus. ADA recommended reference range Performed By: #### C MP, URIC ####[address] Potassium [Moles/Vol] 4.1 mmol/L Normal 3.5-5.1 The Pending [facility] Comment on above: Performed By: #### C MP, URIC ####[address] Protein [Mass/Vol] 6.3 g/dL Low 6.4-8.9 The [facility]ending [facility] Comment on above: Performed By: #### C MP, URIC ####[address] Sodium [Moles/Vol] 137 mmol/L Normal 136-145 The [facility]ending [facility] Comment on above: Performed By: #### C MP, URIC ####[address] Urea nitrogen [Mass/Vol] 21 mg/dL Normal 7-25 The [facility]ending [facility] Comment on above: Performed By: #### C MP, URIC ####[place] [id number] [facility] Respiratory (Upper) Panel, P CRon 11-02-2022 Respiratory (Upper) Panel, PCR Normal The Pending [facility] Comment on above: Performed By: #### R RUBY PANEL UPP., BIOFIRECOVDET ####[address] Respiratory pathogens DNA an d RNA panel - Nasopharynx by GIANLUCA with non-probe detectionOrdered By: Tricia Salazar on 11-02-2022 Respiratory pathogens DNA and RNA panel GIANLUCA+non-probe (Nph) [facility] Respiratory pathogens DNA and RNA panel GIANLUCA+non-probe (Nph) [facility] Urate [Mass/volume] in Serum or PlasmaOrdered By: Tricia Salazar on 11-02-2022 Urate [Mass/Vol] 6.5 mg/dL Normal 4.4-7.6 [facility] Comment on above: Result Comment: PERF ORMED BY:[address] [place], [place] [phone] MEDICAL DIRECTORANNIKA NOGUEIRA M.D. Performed By: #### C MP, URIC ####[address] [address] [facility] XR chest 1V portableon 11-02 XR chest 1V portable Normal The [facility]ending [facility] Alanine aminotransferase [En zymatic activity/volume] in Serum or PlasmaOrdered By: Mariano Wilkins on 11-01-2022 ALT [Catalytic activity/Vol] 41 U/L Normal 7-52 [facility] Comment on above: Performed By: #### C MP, HS TROP, CBC ####[address] [address] [facility] Albumin [Mass/volume] in Ser um or Plasma by Bromocresol green (BCG) dye binding methoOrdered By: Mariano Wilkins on 11-01-2022 Albumin BCG dye [Mass/Vol] 3.3 g/dL 3.5-5.7 [facility] Alkaline phosphatase [Enzyma tic activity/volume] in Serum or PlasmaOrdered By: Mariano Wilkins on 11-01-2022 ALP [Catalytic activity/Vol] 69 U/L Normal 34-104 [facility] Comment on above: Performed By: #### C MP, HS TROP, CBC ####[address] [address] [facility] Aspartate aminotransferase [ Enzymatic activity/volume] in Serum or PlasmaOrdered By: Mariano Wilkins on 11-01-2022 AST [Catalytic activity/Vol] 65 U/L High 13-39 [facility] Comment on above: Performed By: #### C MP, HS TROP, CBC ####[address] Automated basophil %Ordered By: Mariano Wilkins on 11-01-2022 Basophils/100 WBC (Bld) 0.3 % Normal . [facility] Comment on above: Performed By: #### C MP, HS TROP, CBC ####[address] Automated basophil countOrde red By: Mariano Wilkins on 11-01-2022 Basophils (Bld) [#/Vol] 0.0 10*3/uL Normal 0.0-0.2 [facility] Comment on above: Result Comment: PERF ORMED BY:[address] [place], [place] [phone] MEDICAL DIRECTORANNIKA NOGUEIRA M.D. Performed By: #### C MP, HS TROP, CBC ####[address] Automated blood monocyte cou ntOrdered By: Mariano Wilkins on 11-01-2022 Monocytes (Bld) [#/Vol] 0.7 10*3/uL Normal 0.0-0.8 [facility] Comment on above: Performed By: #### C MP, HS TROP, CBC ####[address] Automated eosinophil %Ordere d By: Mariano Wilkins on 11-01-2022 Eosinophils/100 WBC (Bld) 0.3 % Normal . [facility] Comment on above: Performed By: #### C MP, HS TROP, CBC ####[address] Automated eosinophil countOr dered By: Mariano Wilkins on 11-01-2022 Eosinophils (Bld) [#/Vol] 0.0 10*3/uL Normal 0.0-0.45 [facility] Comment on above: Performed By: #### C MP, HS TROP, CBC ####[address] Automated erythrocytes count in urine sediment (number/area)Ordered By: Mariano Wilkins on 11-01-2022 RBC Auto (Urine sed) [#/Area] 3-4 [HPF] 0-4 [facility] Automated leukocytes count i n urine sediment (number/area)Ordered By: Mariano Wilkins on 11-01-2022 WBC Auto (Urine sed) [#/Area] 1-2 [HPF] 0-4 [facility] Automated monocyte %Ordered By: Mariano Wilkins on 11-01-2022 Monocytes/100 WBC (Bld) 13.4 % Normal . [facility] Comment on above: Performed By: #### C MP, HS TROP, CBC ####[facility] [id number] Automated neutrophil %Ordere d By: Mariano Wilkins on 11-01-2022 Neutrophils/100 WBC (Bld) 53.4 % Normal . [facility] Comment on above: Performed By: #### C MP, HS TROP, CBC ####[facility] [id number] [place] [address] Automated urine color determ inationOrdered By: Mariano Wilkins on 11-01-2022 Color (U) Yellow Normal Yellow [facility] Comment on above: Order Comment: Name Collection Type:: Clean-Voided Midstream Performed By: #### A DDONUAPLUS ####[address] Bilirubin Test strip Ql (U)O rdered By: Mariano Wilkins on 11-01-2022 Bilirubin Ql (U) Negative Negative [facility] Bilirubin.total [Mass/volume ] in Serum or PlasmaOrdered By: Mariano Wilkins on 11-01-2022 Bilirubin [Mass/Vol] 0.6 mg/dL Normal 0.3-1.0 [facility] Comment on above: Performed By: #### C MP, HS TROP, CBC ####[address] Calcium [Mass/volume] in Ser um or PlasmaOrdered By: Mariano Wilkins on 11-01-2022 Calcium [Mass/Vol] 8.7 mg/dL Normal 8.6-10.3 [facility] Comment on above: Performed By: #### C MP, HS TROP, CBC ####[place] [id number] [facility] Carbon dioxide, total [Moles /volume] in Serum or PlasmaOrdered By: Mariano Wilkins on 11-01-2022 CO2 [Moles/Vol] 29.2 mmol/L Normal 21.0-31.0 [facility] Comment on above: Performed By: #### C MP, HS TROP, CBC ####[place] [id number] [facility] Chloride [Moles/volume] in S sammy or PlasmaOrdered By: Mariano Wilkins on 11-01-2022 Chloride [Moles/Vol] 105 mmol/L Normal 98-107 [facility] Comment on above: Performed By: #### C MP, HS TROP, CBC ####[place] [id number] [facility] Complete Blood Count Auto Di ffon 11-01-2022 Mean Corpuscular HGB Conc 33.2 g/dL Normal 32.5-35.6 The [facility]ending [facility] Comment on above: Performed By: #### C MP, HS TROP, CBC ####[place] [id number] [facility] Monocytes/100 WBC (Bld) 22.50 % High 0.00-20.00 The Pending [facility] Comment on above: Result Comment: For adults in ED, MDW > 20.0 may be associated with a higher risk of sepsis during the first 12 hrs of hospital admission Performed By: #### C MP, HS TROP, CBC ####[address] [address] [facility] NRBC% 0.3 /100{WBC} Normal 0-0.5 The Pending [facility] Comment on above: Performed By: #### C MP, HS TROP, CBC ####[address] [address] [facility] Comprehensive Metabolic Pane negro 11-01-2022 Albumin [Mass/Vol] 3.3 g/dL Low 3.5-5.7 The Pending [facility] To [facility] Comment on above: Performed By: #### C MP, HS TROP, CBC ####[place] [place] [address] [facility] Creatinine Clr Calc Pharmacy 62.99 Normal The Pending [facility] To [facility] Comment on above: Result Comment: PERF ORMED BY:[address] [place], [place] [phone] MEDICAL JADEN NOGUEIRA M.D. Performed By: #### C MP, HS TROP, CBC ####[address] [address] [place] GFR/1.73 sq M.predicted MDRD (S/P/Bld) [Vol rate/Area] mL/min/{1.73_m2} Normal The Pending [facility] Comment on above: Performed By: #### C MP, HS TROP, CBC ####[address] [address] [facility] Creatinine [Mass/volume] in Serum or PlasmaOrdered By: Mariano Wilkins on 11-01-2022 Creatinine [Mass/Vol] 1.16 mg/dL Normal 0.70-1.30 [facility] Comment on above: Performed By: #### C MP, HS TROP, CBC ####[address] [address] [place] Dipstick and Microscopicon 0 11-01-2022 Appearance (U) Clear Normal Clear The [facility]ending [facility] Comment on above: Order Comment: Name Collection Type:: Clean-Voided Midstream Performed By: #### A DDONUAPLUS ####[address] [address] [facility] Bacteria,Urine None Seen Normal None Seen The [facility]ending [facility] Comment on above: Order Comment: Name Collection Type:: Clean-Voided Midstream Performed By: #### A DDONUAPLUS ####[address] [address] [place] Bilirubin,Urine Negative Normal Negative The Pending [facility] Comment on above: Order Comment: Name Collection Type:: Clean-Voided Midstream Performed By: #### A DDONUAPLUS ####[address] [address] [facility] Glucose Ql (U) Normal Normal Normal The Pending [facility] Comment on above: Order Comment: Name Collection Type:: Clean-Voided Midstream Performed By: #### A DDONUAPLUS ####[address] [address] [facility] Hyaline Casts,Urine 0-8 Normal 0-8 The Pending [facility] Comment on above: Order Comment: Name Collection Type:: Clean-Voided Midstream Result Comment: PERF ORMED BY:[place] [address] [place], [place] [phone] MEDICAL DIRECTORANNIKA NOGUEIRA M.D. Performed By: #### A DDONUAPLUS ####[address] [address] [facility] Ketones Ql (U) Negative Normal Negative The [facility]ending [facility] Comment on above: Order Comment: Name Collection Type:: Clean-Voided Midstream Performed By: #### A DDONUAPLUS ####[address] [address] [facility] Leukocyte esterase Test strip Ql (U) Negative Normal Negative The Pending [facility] Comment on above: Order Comment: Name Collection Type:: Clean-Voided Midstream Performed By: #### A DDONUAPLUS ####[address] [address] [facility] Nitrite,Urine Negative Normal Negative The Pending [facility] Comment on above: Order Comment: Name Collection Type:: Clean-Voided Midstream Performed By: #### A DDONUAPLUS ####[address] [address] [place] Occult Blood,Urine Negative Normal Negative The Pending [facility] Comment on above: Order Comment: Name Collection Type:: Clean-Voided Midstream Result Comment: PERF ORMED BY:[address] [place], [place] [phone] MEDICAL DIRECTORANNIKA NOGUEIRA M.D. Performed By: #### A DDONUAPLUS ####[address] [address] [place] RBC,Urine 3-4 Normal 0-4 The [facility]ending [facility] Comment on above: Order Comment: Name Collection Type:: Clean-Voided Midstream Performed By: #### A DDONUAPLUS ####[address] Specificy [place],Urine 1.024 Normal 1.001-1.03 0 The Pending [facility] Comment on above: Order Comment: Name Collection Type:: Clean-Voided Midstream Performed By: #### A DDONUAPLUS ####[address] Squamous Epithelial Cell,Urine None Seen Normal 0-2 The Pending [facility] Comment on above: Order Comment: Name Collection Type:: Clean-Voided Midstream Performed By: #### A DDONUAPLUS ####[address] Urobilinogen,Urine Normal Normal Normal The [facility]ending [facility] Comment on above: Order Comment: Name Collection Type:: Clean-Voided Midstream Performed By: #### A DDONUAPLUS ####[address] WBC,Urine 1-2 Normal 0-4 The [facility]ending [facility] Comment on above: Order Comment: Name Collection Type:: Clean-Voided Midstream Performed By: #### A DDONUAPLUS ####[address] ECG 12 lead ECGon 11-01-2022 ECG 12 lead ECG Normal The [facility]ending [facility] Erythrocyte distribution wid th [Ratio] by Automated countOrdered By: Mariano Wilkins on 11-01-2022 Erythrocyte distribution width (RBC) [Ratio] 14.8 % Normal 12.0-14.8 [facility] Comment on above: Performed By: #### C MP, HS TROP, CBC ####[address] Erythrocytes [#/volume] in B lood by Automated countOrdered By: Mariano Wilkins on 11-01-2022 RBC (Bld) [#/Vol] 3.84 10*6/uL Low 3.90-5.60 [facility] Comment on above: Performed By: #### C CHIQUITA, Ludesi TROP, CBC ####[place] [address] [place] [id number] [facility] Glucose [Mass/volume] in Ser um or PlasmaOrdered By: Mariano Wilkins on 11-01-2022 Glucose [Mass/Vol] 93 mg/dL Normal 70-100 [facility] Comment on above: ADA recommended refe rence rangeRandom Glucose Reference Range is dependent on time and content of last meal. Glucose of more than 200 mg/dL in a nonstressed, ambulatory subject supports the diagnosis of Diabetes Mellitus. Result Comment: [place] Glucose Reference Range is dependent on time and content of last meal. Glucose of more than 200 mg/dL in a nonstressed, ambulatory subject supports the diagnosis of Diabetes Mellitus. ADA recommended reference range Performed By: #### C CHIQUITA, HS TROP, CBC ####[place] [address] [place] [id number] [facility] Hematocrit [Volume Fraction] of Blood by Automated countOrdered By: Mariano Wilkins on 11-01-2022 Hematocrit (Bld) [Volume fraction] 38.3 % Low 38.8-50.0 [facility] Comment on above: Performed By: #### C CHIQUITA, Ludesi TROP, CBC ####[place] [address] [place] [id number] [facility] Hemoglobin [Mass/volume] in BloodOrdered By: Mariano Wilkins on 11-01-2022 Hemoglobin (Bld) [Mass/Vol] 12.7 g/dL Low 13.0-17.0 [facility] Comment on above: Performed By: #### C CHIQUITA, HS TROP, CBC ####[place] [id number] [facility] Ketones Auto test strip (U) [Mass/Vol]Ordered By: Mariano Wilkins on 11-01-2022 Ketones (U) [Mass/Vol] Negative Negative [facility] - UrinalysisOrder ed By: Mariano Wilkins on 11-01-2022 Hyaline casts LM Ql (Urine sed) 0-8 [LPF] 0-8 [facility] Leukocytes [#/volume] correc michelle for nucleated erythrocytes in Blood by Automated counOrdered By: aMriano Wilkins on 11-01-2022 WBC corrected for nucl RBC Auto (Bld) [#/Vol] 5.5 10*3/uL 4.1-10.5 [facility] Leukocytes [#/volume] in Blo od by Automated countOrdered By: Mariano Wilkins on 11-01-2022 WBC (Bld) [#/Vol] 5.5 10*3/uL Normal 4.1-10.5 [facility] Comment on above: Performed By: #### C MP, HS TROP, CBC ####[address] Lymphocytes [#/volume] in Bl ood by Automated countOrdered By: Mariano Wilkins on 11-01-2022 Lymphocytes (Bld) [#/Vol] 1.8 10*3/uL Normal 1.00-4.8 [facility] Comment on above: Performed By: #### C MP, HS TROP, CBC ####[place] [id number] [facility] Lymphocytes/100 leukocytes i n Blood by Automated countOrdered By: Mariano Wilkins on 11-01-2022 Lymphocytes/100 WBC (Bld) 32.6 % Normal . [facility] Comment on above: Performed By: #### C MP, HS TROP, CBC ####[place] [id number] [facility] MCH [Entitic mass] by Automa michelle countOrdered By: Mariano Wilkins on 11-01-2022 MCH (RBC) [Entitic mass] 33.1 pg Normal 27.5-35.2 [facility] Comment on above: Performed By: #### C MP, HS TROP, CBC ####[place] [id number] [facility] MCHC Auto (RBC) [Mass/Vol]Or dered By: Mariano Wilkins on 11-01-2022 MCHC (RBC) [Mass/Vol] 33.2 g/dL 32.5-35.6 [facility] MCV [Entitic volume] by Auto mated countOrdered By: Mariano Wilkins on 11-01-2022 MCV (RBC) [Entitic vol] 99.8 fL Normal 83.5-101 [facility] Comment on above: Performed By: #### C MP, HS TROP, CBC ####[facility] [id number] Monocyte distribution width [Entitic volume] in Blood by AutomatedOrdered By: Mariano Wilkins on 11-01-2022 Monocyte distribution width Auto (Bld) [Entitic vol] 22.50 % 0.00-20.00 [facility] Comment on above: For adults in ED, MD W > 20.0 may be associated with a higher risk of sepsis during the first 12 hrs of hospital admission Neutrophils [#/volume] in Bl ood by Automated countOrdered By: Mariano Wilkins on 11-01-2022 Neutrophils (Bld) [#/Vol] 3.0 10*3/uL Normal 1.8-7.7 [facility] Comment on above: Performed By: #### C MP, HS TROP, CBC ####[facility] [id number] [place] [address] Nitrite Test strip Ql (U)Ord ered By: Mariano Wilkins on 11-01-2022 Nitrite Ql (U) Negative Negative [facility] No Panel InformationOrdered By: Mariano Wilkins on 11-01-2022 Estimated GFR (CKD-EPI) > 60.0 mL/Min [facility] Creatinine Clearance (Chem 62.99 [facility] Nucleated erythrocytes [Pres ence] in Blood by Automated countOrdered By: Mariano Wilkins on 11-01-2022 Nucleated RBC Auto Ql (Bld) 0.3 /100{WBC} 0-0.5 [facility] Platelet mean volume [Entiti c volume] in Blood by Automated countOrdered By: Mariano Wilkins on 11-01-2022 Platelet mean volume (Bld) [Entitic vol] 8.9 fL Normal 6.6-10.1 [facility] Comment on above: Performed By: #### C MP, HS TROP, CBC ####[facility] [id number] Platelets [#/volume] in Bloo d by Automated countOrdered By: Mariano Wilkins on 11-01-2022 Platelets (Bld) [#/Vol] 119 10*3/uL Low 150-450 [facility] Comment on above: Performed By: #### C CHIQUITA, HS TROP, CBC ####[place] [id number] Potassium [Moles/volume] in Serum or PlasmaOrdered By: Mariano Wilkins on 11-01-2022 Potassium [Moles/Vol] 3.7 mmol/L Normal 3.5-5.1 [facility] Comment on above: Performed By: #### C MP, HS TROP, CBC ####[address] Protein [Mass/volume] in Ser um or PlasmaOrdered By: Mariano Wilkins on 11-01-2022 Protein [Mass/Vol] 6.5 g/dL Normal 6.4-8.9 [facility] Comment on above: Performed By: #### C CHIQUITA, HS TROP, CBC ####[address] Serum globulin measurement b y calculation (mass/volume)Ordered By: Mariano Wilkins on 11-01-2022 Globulin (S) [Mass/Vol] 3.2 g/dL [facility] Comment on above: Performed By: #### C CHIQUITA, HS TROP, CBC ####[address] Serum or plasma albumin/glob ulin mass ratioOrdered By: Mariano Wilkins on 11-01-2022 Albumin/Globulin [Mass ratio] 1.0 {ratio} [facility] Comment on above: Performed By: #### C MP, HS TROP, CBC ####[address] Serum or plasma anion gap de terminationOrdered By: Mariano Wilkins on 11-01-2022 Anion gap [Moles/Vol] 7.5 mmol/L Normal 6.0-15.0 [facility] Comment on above: Performed By: #### C MP, HS TROP, CBC ####[address] [place] [address] [facility] Sodium [Moles/volume] in Ser um or PlasmaOrdered By: Mariano Wilkins on 11-01-2022 Sodium [Moles/Vol] 138 mmol/L Normal 136-145 [facility] Comment on above: Performed By: #### C MP, HS TROP, CBC ####[place] [id number] [facility] Specific gravity Auto test s trip (U) [Rel density]Ordered By: Mariano Wilkins on 11-01-2022 Specific gravity (U) [Rel density] 1.024 1.001-1.03 0 [facility] Squamous epithelial cells de tection in urine sediment by light microscopyOrdered By: Mariano Wilkins on 11-01-2022 Epithelial cells.squamous LM Ql (Urine sed) None seen [HPF] 0-2 [facility] Troponin I High Sensitivityo n 11-01-2022 Troponin I High Sensitivity 34.7 pg/mL High 0.0-20.0 [facility]ending [facility] Comment on above: Result Comment: PERF ORMED BY:[address] [place], [place] [phone] MEDICAL DIRECTORANNIKA NOGUEIRA M.D. Performed By: #### C MP, HS TROP, CBC ####[place] [id number] [facility] Troponin I.cardiac [Mass/vol ume] in Serum or Plasma by Detection limit <= 0.01 ng/Ordered By: Mariano Wilkins on 11-01-2022 Troponin I.cardiac DL <= 0.01 ng/mL [Mass/Vol] 34.7 pg/mL 0.0-20.0 [facility] Urea nitrogen [Mass/volume] in Serum or PlasmaOrdered By: Mariano Wilkins on 11-01-2022 Urea nitrogen [Mass/Vol] 24 mg/dL Normal 7-25 [facility] Comment on above: Performed By: #### C MP, HS TROP, CBC ####[place] [id number] [facility] Urine bacteria detection by automated methodOrdered By: Mariano Wilkins on 11-01-2022 Bacteria Auto Ql (U) None seen None Seen [facility] Urine clarity by refractomet ry automatedOrdered By: Mariano Wilkins on 11-01-2022 Clarity Refractometry automated (U) Clear Clear [facility] Urine glucose measurement by automated test strip (mass/volume)Ordered By: Mariano Wilkins on 11-01-2022 Glucose Auto test strip (U) [Mass/Vol] Normal mg/dL Normal [facility] Urine hemoglobin detection b y automated test stripOrdered By: Mariano Wilkins on 11-01-2022 Hemoglobin Auto test strip Ql (U) Negative Negative [facility] Urine leukocyte esterase det ection by automated test stripOrdered By: Mariano Wilkins on 11-01-2022 Leukocyte esterase Auto test strip Ql (U) Negative Negative [facility] Urine pH measurement by auto mated test stripOrdered By: Mariano Wilkins on 11-01-2022 pH (U) 5.5 [pH] Normal 5.0-9.0 [facility] Comment on above: Order Comment: Name Collection Type:: Clean-Voided Midstream Performed By: #### A DDONUAPLUS ####[place] [id number] [facility] Urine protein measurement by automated test strip (mass/volume)Ordered By: Mariano Wilkins on 11-01-2022 Protein (U) [Mass/Vol] 300 mg/dL High Negative [facility] Comment on above: Order Comment: Name Collection Type:: Clean-Voided Midstream Performed By: #### A DDONUAPLUS ####[place] [id number] [facility] Urobilinogen Auto test strip (U) [Mass/Vol]Ordered By: Mariano Wilkins on 11-01-2022 Urobilinogen (U) [Mass/Vol] Normal mg/dL Normal [facility] Basic Metabolic Panelon 10-14 Creatinine Clr Calc Pharmacy 57.08 Normal [facility] Comment on above: Performed By: #### B MP, CRP ####[place] [id number] [facility] GFR/1.73 sq M.predicted MDRD (S/P/Bld) [Vol rate/Area] 58.003 mL/min/{1.73_m2} Normal [facility]ending [facility] Comment on above: Performed By: #### B MP, CRP ####[address] [place] [address] [facility] C reactive protein [Mass/vol ume] in Serum or PlasmaOrdered By: Pedro Luis Frye on 10-30-2022 CRP [Mass/Vol] 4.6 mg/dL 0.0-0.5 [facility] C-Reactive Proteinon 023 C-Reactive Protein 4.6 mg/dL High 0.0-0.5 [facility]ending [facility] Comment on above: Result Comment: PERF ORMED BY:[address] [address] [address] [place], [place] [phone] MEDICAL DIRECTORANNIKA NOGUEIRA M.D. Performed By: #### B MP, CRP ####[address] [address] [facility] Calcium [Mass/volume] in Ser um or PlasmaOrdered By: Pedro Luis Frye on 10-30-2022 Calcium [Mass/Vol] 8.8 mg/dL Normal 8.6-10.3 [facility] Comment on above: Performed By: #### B MP, CRP ####[address] [address] [facility] Carbon dioxide, total [Moles /volume] in Serum or PlasmaOrdered By: Pedro Luis Frye on 10-30-2022 CO2 [Moles/Vol] 30.1 mmol/L Normal 21.0-31.0 [facility] Comment on above: Performed By: #### B MP, CRP ####[address] [address] [place] Chloride [Moles/volume] in S sammy or PlasmaOrdered By: Pedro Luis Frye on 10-30-2022 Chloride [Moles/Vol] 106 mmol/L Normal 98-107 [facility] Comment on above: Performed By: #### B MP, CRP ####[address] [address] [place] Creatinine [Mass/volume] in Serum or PlasmaOrdered By: Pedro Luis Frye on 10-30-2022 Creatinine [Mass/Vol] 1.28 mg/dL Normal 0.70-1.30 [facility] Comment on above: Performed By: #### B CHIQUITA, CRP ####[facility] [place] [id number] [facility] Glucose [Mass/volume] in Ser um or PlasmaOrdered By: Pedro Luis Frye on 10-30-2022 Glucose [Mass/Vol] 133 mg/dL High 70-100 [facility] Comment on above: ADA recommended refe rence rangeRandom Glucose Reference Range is dependent on time and content of last meal. Glucose of more than 200 mg/dL in a nonstressed, ambulatory subject supports the diagnosis of Diabetes Mellitus. Result Comment: [place] Glucose Reference Range is dependent on time and content of last meal. Glucose of more than 200 mg/dL in a nonstressed, ambulatory subject supports the diagnosis of Diabetes Mellitus. ADA recommended reference range Performed By: #### B CHIQUITA, CRP ####[place] [address] [place] [id number] [facility] No Panel InformationOrdered By: Pedro Luis Frye on 10-30-2022 Estimated GFR (CKD-EPI) 58.003 mL/Min [facility] Creatinine Clearance (Chem 57.08 [facility] Potassium [Moles/volume] in Serum or PlasmaOrdered By: Pedro Luis Frye on 10-30-2022 Potassium [Moles/Vol] 4.3 mmol/L Normal 3.5-5.1 [facility] Comment on above: Performed By: #### B CHIQUITA, CRP ####[place] [id number] [facility] Serum or plasma anion gap de terminationOrdered By: Pedro Luis Frye on 10-30-2022 Anion gap [Moles/Vol] 8.2 mmol/L Normal 6.0-15.0 [facility] Comment on above: Performed By: #### B CHIQUITA, CRP ####[place] [id number] [facility] Sodium [Moles/volume] in Ser um or PlasmaOrdered By: Pedro Luis Frye on 10-30-2022 Sodium [Moles/Vol] 140 mmol/L Normal 136-145 [facility] Comment on above: Performed By: #### B MP, CRP ####[place] [address] Urea nitrogen [Mass/volume] in Serum or PlasmaOrdered By: Pedro Luis Frye on 10-30-2022 Urea nitrogen [Mass/Vol] 37 mg/dL High 7-25 [facility] Comment on above: Performed By: #### B MP, CRP ####[place] [address] Automated basophil %Ordered By: Pedro Luis Frye on 10-29-2022 Basophils/100 WBC (Bld) 0.1 % Normal . [facility] Comment on above: Performed By: #### B MP, CBC ####[address] Automated basophil countOrde red By: Pedro Luis Frye on 10-29-2022 Basophils (Bld) [#/Vol] 0.0 10*3/uL Normal 0.0-0.2 [facility] Comment on above: Result Comment: PERF ORMED BY:[address] [place], [place] [phone] MEDICAL DIRECTORANNIKA NOGUEIRA M.D. Performed By: #### B MP, CBC ####[address] Automated blood monocyte cou ntOrdered By: Pedro Luis Frye on 10-29-2022 Monocytes (Bld) [#/Vol] 0.6 10*3/uL Normal 0.0-0.8 [facility] Comment on above: Performed By: #### B MP, CBC ####[address] Automated eosinophil %Ordere d By: Pedro Luis Frye on 10-29-2022 Eosinophils/100 WBC (Bld) 0.0 % Normal . [facility] Comment on above: Performed By: #### B MP, CBC ####[address] Automated eosinophil countOr dered By: Pedro Luis Frye on 10-29-2022 Eosinophils (Bld) [#/Vol] 0.0 10*3/uL Normal 0.0-0.45 [facility] Comment on above: Performed By: #### B MP, CBC ####[address] Automated monocyte %Ordered By: Pedro Luis Frye on 10-29-2022 Monocytes/100 WBC (Bld) 5.5 % Normal . [facility] Comment on above: Performed By: #### B MP, CBC ####[address] Automated neutrophil %Ordere d By: Pedro Luis Frye on 10-29-2022 Neutrophils/100 WBC (Bld) 82.6 % Normal . [facility] Comment on above: Performed By: #### B MP, CBC ####[address] Basic Metabolic Panelon 10-14 Anion gap [Moles/Vol] 12.6 mmol/L Normal 6.0-15.0 Th e Pending [facility] To [facility] Comment on above: Performed By: #### B MP, CBC ####[place] [id number] [facility] Calcium [Mass/Vol] 8.8 mg/dL Normal 8.6-10.3 The [facility]ending [facility] Comment on above: Performed By: #### B MP, CBC ####[place] [id number] [facility] Chloride [Moles/Vol] 103 mmol/L Normal 98-107 The [facility]ending [facility] Comment on above: Performed By: #### B MP, CBC ####[place] [id number] [facility] CO2 [Moles/Vol] 24.7 mmol/L Normal 21.0-31.0 The [facility]ending [facility] Comment on above: Performed By: #### B MP, CBC ####[address] [address] [facility] Creatinine [Mass/Vol] 1.74 mg/dL High 0.70-1.30 The Pending [facility] Comment on above: Performed By: #### B MP, CBC ####[address] [address] [facility] Creatinine Clr Calc Pharmacy 41.99 Normal The Pending [facility] Comment on above: Result Comment: PERF ORMED BY:[address] [place], [place] [phone] MEDICAL DIRECTORANNIKA NOGUEIRA M.D. Performed By: #### B MP, CBC ####[place] [id number] [facility] GFR/1.73 sq M.predicted MDRD (S/P/Bld) [Vol rate/Area] 40.128 mL/min/{1.73_m2} Normal The Pending [facility] Comment on above: Performed By: #### B MP, CBC ####[place] [address] [facility] Glucose [Mass/Vol] 123 mg/dL High 70-100 The [facility]ending [facility] Comment on above: Result Comment: [facility] Glucose Reference Range is dependent on time and content of last meal. Glucose of more than 200 mg/dL in a nonstressed, ambulatory subject supports the diagnosis of Diabetes Mellitus. ADA recommended reference range Performed By: #### B MP, CBC ####[place] [id number] [facility] Potassium [Moles/Vol] 4.3 mmol/L Normal 3.5-5.1 The [facility]ending [facility] Comment on above: Performed By: #### B MP, CBC ####[place] [address] [facility] Sodium [Moles/Vol] 136 mmol/L Normal 136-145 The [facility]ending [facility] Comment on above: Performed By: #### B MP, CBC ####[place] [id number] [facility] Urea nitrogen [Mass/Vol] 44 mg/dL High 7-25 The Pending [facility] Comment on above: Performed By: #### B MP, CBC ####[address] Complete Blood Count Auto Di ffon 10-29-2022 Mean Corpuscular HGB Conc 33.5 g/dL Normal 32.5-35.6 The [facility]ending [facility] Comment on above: Performed By: #### B MP, CBC ####[address] NRBC% 0.1 /100{WBC} Normal 0-0.5 The Pending [facility] Comment on above: Performed By: #### B MP, CBC ####[address] Erythrocyte distribution wid th [Ratio] by Automated countOrdered By: Pedro Luis Frye on 10-29-2022 Erythrocyte distribution width (RBC) [Ratio] 15.2 % High 12.0-14.8 [facility] Comment on above: Performed By: #### B MP, CBC ####[address] Erythrocytes [#/volume] in B lood by Automated countOrdered By: Pedro Luis Frye on 10-29-2022 RBC (Bld) [#/Vol] 3.97 10*6/uL Normal 3.90-5.60 [facility] Comment on above: Performed By: #### B MP, CBC ####[address] Hematocrit [Volume Fraction] of Blood by Automated countOrdered By: Pedro Luis Frey on 10-29-2022 Hematocrit (Bld) [Volume fraction] 40.2 % Normal 38.8-50.0 [facility] Comment on above: Performed By: #### B MP, CBC ####[address] Hemoglobin [Mass/volume] in BloodOrdered By: Pedro Luis Frye on 10-29-2022 Hemoglobin (Bld) [Mass/Vol] 13.5 g/dL Normal 13.0-17.0 [facility] Comment on above: Performed By: #### B MP, CBC ####[address] Leukocytes [#/volume] correc michelle for nucleated erythrocytes in Blood by Automated counOrdered By: Pedro Luis Frye on 10-29-2022 WBC corrected for nucl RBC Auto (Bld) [#/Vol] 10.2 10*3/uL 4.1-10.5 [facility] Leukocytes [#/volume] in Blo od by Automated countOrdered By: Pedro Luis Frye on 10-29-2022 WBC (Bld) [#/Vol] 10.2 10*3/uL Normal 4.1-10.5 [facility] Comment on above: Performed By: #### B MP, CBC ####[address] Lymphocytes [#/volume] in Bl ood by Automated countOrdered By: Pedro Luis Frye on 10-29-2022 Lymphocytes (Bld) [#/Vol] 1.2 10*3/uL Normal 1.00-4.8 [facility] Comment on above: Performed By: #### B MP, CBC ####[address] Lymphocytes/100 leukocytes i n Blood by Automated countOrdered By: Pedro Luis Frye on 10-29-2022 Lymphocytes/100 WBC (Bld) 11.8 % Normal . [facility] Comment on above: Performed By: #### B MP, CBC ####[place] [id number] [facility] MCH [Entitic mass] by Automa michelle countOrdered By: Pedro Luis Frye on 10-29-2022 MCH (RBC) [Entitic mass] 34.0 pg Normal 27.5-35.2 [facility] Comment on above: Performed By: #### B MP, CBC ####[place] [id number] [facility] MCHC Auto (RBC) [Mass/Vol]Or dered By: Pedro Luis Frye on 10-29-2022 MCHC (RBC) [Mass/Vol] 33.5 g/dL 32.5-35.6 [facility] MCV [Entitic volume] by Auto mated countOrdered By: Pedro Luis Frye on 10-29-2022 MCV (RBC) [Entitic vol] 101.4 fL High 83.5-101 [facility] Comment on above: Performed By: #### B MP, CBC ####[facility] [id number] Neutrophils [#/volume] in Bl ood by Automated countOrdered By: Pedro Luis Frye on 10-29-2022 Neutrophils (Bld) [#/Vol] 8.4 10*3/uL High 1.8-7.7 [facility] Comment on above: Performed By: #### B MP, CBC ####[address] Nucleated erythrocytes [Pres ence] in Blood by Automated countOrdered By: Pedro Luis Frye on 10-29-2022 Nucleated RBC Auto Ql (Bld) 0.1 /100{WBC} 0-0.5 [facility] Platelet mean volume [Entiti c volume] in Blood by Automated countOrdered By: Pedro Luis Frye on 10-29-2022 Platelet mean volume (Bld) [Entitic vol] 10.3 fL High 6.6-10.1 [facility] Comment on above: Performed By: #### B MP, CBC ####[facility] [id number] [address] Platelets [#/volume] in Bloo d by Automated countOrdered By: Pedro Luis Frye on 10-29-2022 Platelets (Bld) [#/Vol] 113 10*3/uL Low 150-450 [facility] Comment on above: Performed By: #### B MP, CBC ####[facility] [id number] [address] Alanine aminotransferase [En zymatic activity/volume] in Serum or PlasmaOrdered By: Pedro Luis Frye on 10-28-2022 ALT [Catalytic activity/Vol] 20 U/L Normal 7-52 [facility] Comment on above: Order Comment: iban nelson do last Performed By: #### Yen James, CMP, CBC ####[place] [address] [place] [id number] [facility] Albumin [Mass/volume] in Ser um or Plasma by Bromocresol green (BCG) dye binding methoOrdered By: Pedro Luis Frye on 10-28-2022 Albumin BCG dye [Mass/Vol] 2.9 g/dL 3.5-5.7 [facility] Comment on above: Delta: 3.9 on -2 Alkaline phosphatase [Enzyma tic activity/volume] in Serum or PlasmaOrdered By: Pedro Luis Frye on 10-28-2022 ALP [Catalytic activity/Vol] 66 U/L Normal 34-104 [facility] Comment on above: Order Comment: iban nelson do last Performed By: #### Yen James, CMP, CBC ####[place] [place] [address] [place] [id number] [facility] Aspartate aminotransferase [ Enzymatic activity/volume] in Serum or PlasmaOrdered By: Pedro Luis Frye on 10-28-2022 AST [Catalytic activity/Vol] 46 U/L High 13-39 [facility] Comment on above: Order Comment: iban nelson do last Performed By: #### Yen James, CMP, CBC ####[place] [id number] [facility] Bilirubin.total [Mass/volume ] in Serum or PlasmaOrdered By: Pedro Luis Frye on 10-28-2022 Bilirubin [Mass/Vol] 0.7 mg/dL Normal 0.3-1.0 [facility] Comment on above: Order Comment: iban nelson do last Performed By: #### Yen James, CMP, CBC ####[address] [place] [place] [id number] [facility] Complete Blood Count Auto Di ffon 10-28-2022 Basophils (Bld) [#/Vol] 0.0 10*3/uL Normal 0.0-0.2 [facility]ending [facility] Comment on above: Order Comment: per r n omar do last Result Comment: PERF ORMED BY:[address] [place], [place] [phone] MEDICAL DIRECTORANNIKA NOGUEIRA M.D. Performed By: #### M G, CMP, CBC ####[address] [address] [facility] Basophils/100 WBC (Bld) 0.5 % Normal . [facility]ending [facility] Comment on above: Order Comment: per r n omar do last Performed By: #### M G, CMP, CBC ####[place] [id number] [facility] Eosinophils (Bld) [#/Vol] 0.2 10*3/uL Normal 0.0-0.45 The [facility]ending [facility] Comment on above: Order Comment: per r n omar do last Performed By: #### M G, CMP, CBC ####[place] [id number] [facility] Eosinophils/100 WBC (Bld) 3.3 % Normal . The [facility]ending [facility] Comment on above: Order Comment: per r n omar do last Performed By: #### M G, CMP, CBC ####[place] [id number] [facility] Erythrocyte distribution width (RBC) [Ratio] 15.4 % High 12.0-14.8 The [facility]ending [facility] Comment on above: Order Comment: per r n omar do last Performed By: #### M G, CMP, CBC ####[place] [id number] [facility] Hematocrit (Bld) [Volume fraction] 36.4 % Low 38.8-50.0 The [facility]ending [facility] Comment on above: Order Comment: per r n omar do last Performed By: #### M G, CMP, CBC ####[place] [id number] [facility] Hemoglobin (Bld) [Mass/Vol] 12.3 g/dL Low 13.0-17.0 The [facility]ending [facility] Comment on above: Order Comment: per r n omar do last Performed By: #### M G, CMP, CBC ####[address] Lymphocytes (Bld) [#/Vol] 1.8 10*3/uL Normal 1.00-4.8 The [facility]ending [facility] Comment on above: Order Comment: per r n omar do last Performed By: #### M G, CMP, CBC ####[place] [id number] [facility] Lymphocytes/100 WBC (Bld) 24.1 % Normal . The [facility]ending [facility] Comment on above: Order Comment: per r n omar do last Performed By: #### M G, CMP, CBC ####[address] MCH (RBC) [Entitic mass] 34.2 pg Normal 27.5-35.2 The [facility]ending [facility] Comment on above: Order Comment: per r n omar do last Performed By: #### M G, CMP, CBC ####[address] MCV (RBC) [Entitic vol] 101.0 fL Normal 83.5-101 [facility]ending [facility] Comment on above: Order Comment: per r n omar do last Performed By: #### M G, CMP, CBC ####[address] Mean Corpuscular HGB Conc 33.9 g/dL Normal 32.5-35.6 The [facility]ending [facility] Comment on above: Order Comment: per r n omar do last Performed By: #### M G, CMP, CBC ####[address] Monocytes (Bld) [#/Vol] 0.6 10*3/uL Normal 0.0-0.8 The [facility]ending [facility] Comment on above: Order Comment: per r n omar do last Performed By: #### M G, CMP, CBC ####[address] Monocytes/100 WBC (Bld) 7.5 % Normal . [facility]ending [facility] Comment on above: Order Comment: per r n omar do last Performed By: #### M G, CMP, CBC ####[place] [id number] [facility] Neutrophils (Bld) [#/Vol] 4.8 10*3/uL Normal 1.8-7.7 The [facility] Comment on above: Order Comment: per r n omar do last Performed By: #### M G, CMP, CBC ####[place] [id number] [facility] Neutrophils/100 WBC (Bld) 64.6 % Normal . The [facility]ending [facility] Comment on above: Order Comment: per r n omar do last Performed By: #### M G, CMP, CBC ####[address] NRBC% 0.1 /100{WBC} Normal 0-0.5 The [facility]ending [facility] Comment on above: Order Comment: per r n omar do last Performed By: #### M G, CMP, CBC ####[place] [id number] [facility] Platelet mean volume (Bld) [Entitic vol] 10.0 fL Normal 6.6-10.1 The [facility] Comment on above: Order Comment: per r n omar do last Performed By: #### M G, CMP, CBC ####[place] [id number] [facility] Platelets (Bld) [#/Vol] 92 10*3/uL Low 150-450 [facility]ending [facility] Comment on above: Order Comment: per r n omar do last Performed By: #### M G, CMP, CBC ####[place] [id number] [facility] RBC (Bld) [#/Vol] 3.60 10*6/uL Low 3.90-5.60 The [facility]ending [facility] Comment on above: Order Comment: per r n omar do last Performed By: #### M G, CMP, CBC ####[place] [address] [place] WBC (Bld) [#/Vol] 7.4 10*3/uL Normal 4.1-10.5 The [facility]ending [facility] Comment on above: Order Comment: per r n omar do last Performed By: #### Yen James, CMP, CBC ####[place] [id number] [facility] Comprehensive Metabolic Pane negro 10-28-2022 Albumin [Mass/Vol] 2.9 g/dL Significant change down 3.5-5.7 The [facility] Comment on above: Order Comment: per r n omar do last Performed By: #### Yen James, CMP, CBC ####[address] Anion gap [Moles/Vol] 5.9 mmol/L Low 6.0-15.0 The [facility]ending [facility] Comment on above: Order Comment: per r n omar do last Performed By: #### Yen James, CMP, CBC ####[place] [id number] [facility] Calcium [Mass/Vol] 8.0 mg/dL Low 8.6-10.3 The [facility] Comment on above: Order Comment: per r n omar do last Performed By: #### Yen James, CMP, CBC ####[place] [id number] [facility] Chloride [Moles/Vol] 106 mmol/L Normal 98-107 [facility] Comment on above: Order Comment: per r n omar do last Performed By: #### Yen James, CMP, CBC ####[place] [id number] [facility] CO2 [Moles/Vol] 29.7 mmol/L Normal 21.0-31.0 The [facility] Comment on above: Order Comment: per r n omar do last Performed By: #### Yen James, CMP, CBC ####[place] [id number] [facility] Creatinine [Mass/Vol] 1.80 mg/dL Significan t change up 0.70-1.30 [facility] Comment on above: Order Comment: per r n omar do last Performed By: #### M Tyree, CMP, CBC ####[address] [place] [address] [facility] Creatinine Clr Calc Pharmacy 40.59 Normal The [facility]ending [facility] Comment on above: Order Comment: per r n omar do last Performed By: #### M Tyree, CMP, CBC ####[address] [place] [address] [place] GFR/1.73 sq M.predicted MDRD (S/P/Bld) [Vol rate/Area] 38.528 mL/min/{1.73_m2} Normal The [facility]ending [facility] Comment on above: Order Comment: per r n omar do last Performed By: #### Yen James, CMP, CBC ####[address] [place] [id number] [facility] Glucose [Mass/Vol] 87 mg/dL Normal 70-100 The [facility]ending [facility] Comment on above: Order Comment: per r n omar do last Result Comment: [place] Glucose Reference Range is dependent on time and content of last meal. Glucose of more than 200 mg/dL in a nonstressed, ambulatory subject supports the diagnosis of Diabetes Mellitus. ADA recommended reference range Performed By: #### Yen James, CMP, CBC ####[address] [place] [address] [facility] Potassium [Moles/Vol] 3.6 mmol/L Normal 3.5-5.1 The [facility]ending [facility] Comment on above: Order Comment: per r n omar do last Performed By: #### Yen James, CMP, CBC ####[address] [place] [address] [facility] Sodium [Moles/Vol] 138 mmol/L Normal 136-145 The [facility]ending [facility] Comment on above: Order Comment: per r n omar do last Performed By: #### Yen James, CMP, CBC ####[address] [place] [address] [facility] Urea nitrogen [Mass/Vol] 32 mg/dL High 7-25 The [facility]ending [facility] Comment on above: Order Comment: per r n omar do last Performed By: #### Yen James, CMP, CBC ####[address] [place] [address] [facility] Magnesium [Mass/volume] in S sammy or PlasmaOrdered By: Pedro Luis Frye on 10-28-2022 Magnesium [Mass/Vol] 2.2 mg/dL Normal 1.9-2.7 [facility] Comment on above: Order Comment: per ania nelson do last Result Comment: PERF ORMED BY:[address] [place], [place] [phone] MEDICAL DIRECTORANNIKA NOGUEIRA M.D. Performed By: #### M Tyree, CMP, CBC ####[id number] [facility] Protein [Mass/volume] in Ser um or PlasmaOrdered By: Pedro Luis Frye on 10-28-2022 Protein [Mass/Vol] 5.8 g/dL Significant change down 6.4-8.9 [facility] Comment on above: Delta: 7.3 on -1502 Order Comment: iban nelson do last Performed By: #### Yen James, CMP, CBC ####[address] [address] [facility] Serum globulin measurement b y calculation (mass/volume)Ordered By: Pedro Luis Frye on 10-28-2022 Globulin (S) [Mass/Vol] 2.9 g/dL Normal [facility] Comment on above: Order Comment: iban nelson do last Performed By: #### M Tyree, CMP, CBC ####[address] [address] [facility] Serum or plasma albumin/glob ulin mass ratioOrdered By: Pedro Luis Frye on 10-28-2022 Albumin/Globulin [Mass ratio] 1.0 {ratio} Normal [facility] Comment on above: Order Comment: iban nelson do last Performed By: #### M G, CMP, CBC ####[address] [address] [facility] Basic Metabolic Panelon 09-1 4-2023 Anion gap [Moles/Vol] Not performed Normal 6.0-15.0 The [facility]ending [facility] Comment on above: Performed By: #### M Tyree, CBC, BMP ####[address] Calcium [Mass/Vol] 8.4 mg/dL Low 8.6-10.3 The [facility]ending [facility] Comment on above: Performed By: #### M Tyree, CBC, BMP ####[address] Chloride [Moles/Vol] 103 mmol/L Normal 98-107 The [facility]ending [facility] Comment on above: Performed By: #### M Tyree CBC, BMP ####[address] CO2 [Moles/Vol] 27.3 mmol/L Normal 21.0-31.0 The [facility] Comment on above: Performed By: #### Yen James CBC, BMP ####[address] Creatinine [Mass/Vol] 1.30 mg/dL Normal 0.70-1.30 The [facility]ending [facility] Comment on above: Performed By: #### Yen James CBC, BMP ####[address] Creatinine Clr Calc Pharmacy 56.21 Normal The [facility]ending [facility] Comment on above: Performed By: #### Yen James CBC, BMP ####[address] GFR/1.73 sq M.predicted MDRD (S/P/Bld) [Vol rate/Area] 56.934 mL/min/{1.73_m2} Normal The [facility] Comment on above: Performed By: #### Yen James CBC, BMP ####[address] Glucose [Mass/Vol] 104 mg/dL High 70-100 The [facility]ending [facility] Comment on above: Result Comment: [facility] Glucose Reference Range is dependent on time and content of last meal. Glucose of more than 200 mg/dL in a nonstressed, ambulatory subject supports the diagnosis of Diabetes Mellitus. ADA recommended reference range Performed By: #### M G, CBC, BMP ####[address] Potassium Normal 3.5-5.1 The [facility] Comment on above: Result Comment: Spec imen hemolyzed, redraw requested Performed By: #### M G, CBC, BMP ####[address] Sodium [Moles/Vol] 135 mmol/L Low 136-145 The [facility] Comment on above: Performed By: #### M G, CBC, BMP ####[address] Urea nitrogen [Mass/Vol] 20 mg/dL Normal 7-25 The [facility] Comment on above: Performed By: #### M G, CBC, BMP ####[address] Complete Blood Count Auto Di ffon 10-27-2022 Basophils (Bld) [#/Vol] 0.0 10*3/uL Normal 0.0-0.2 The [facility]ending [facility] Comment on above: Result Comment: PERF ORMED BY:[address] [place], [place] [phone] MEDICAL DIRECTORANNIKA NOGUEIRA M.D. Performed By: #### M G, CBC, BMP ####[address] Basophils/100 WBC (Bld) 0.3 % Normal . The [facility]ending [facility] Comment on above: Performed By: #### M G, CBC, BMP ####[address] Eosinophils (Bld) [#/Vol] 0.0 10*3/uL Normal 0.0-0.45 The [facility]ending [facility] Comment on above: Performed By: #### M G, CBC, BMP ####[address] Eosinophils/100 WBC (Bld) 0.1 % Normal . The [facility]ending [facility] Comment on above: Performed By: #### M G, CBC, BMP ####[address] Erythrocyte distribution width (RBC) [Ratio] 14.8 % Normal 12.0-14.8 The [facility]ending [facility] Comment on above: Performed By: #### M G, CBC, BMP ####[address] Hematocrit (Bld) [Volume fraction] 39.1 % Normal 38.8-50.0 The [facility]ending [facility] Comment on above: Performed By: #### M G, CBC, BMP ####[address] Hemoglobin (Bld) [Mass/Vol] 13.2 g/dL Normal 13.0-17.0 The [facility]ending [facility] Comment on above: Performed By: #### M G, CBC, BMP ####[address] Lymphocytes (Bld) [#/Vol] 1.6 10*3/uL Normal 1.00-4.8 The [facility]ending [facility] Comment on above: Performed By: #### M G, CBC, BMP ####[address] Lymphocytes/100 WBC (Bld) 13.1 % Normal . The [facility]ending [facility] Comment on above: Performed By: #### M G, CBC, BMP ####[address] MCH (RBC) [Entitic mass] 33.8 pg Normal 27.5-35.2 [facility]ending [facility] Comment on above: Performed By: #### M G, CBC, BMP ####[address] MCV (RBC) [Entitic vol] 99.9 fL Normal 83.5-101 [facility]ending [facility] Comment on above: Performed By: #### M G, CBC, BMP ####[place] [address] [place] Mean Corpuscular HGB Conc 33.8 g/dL Normal 32.5-35.6 The [facility]ending [facility] Comment on above: Performed By: #### M G, CBC, BMP ####[address] Monocytes (Bld) [#/Vol] 1.5 10*3/uL High 0.0-0.8 The [facility]ending [facility] Comment on above: Performed By: #### M G, CBC, BMP ####[address] Monocytes/100 WBC (Bld) 12.9 % Normal . The [facility]ending [facility] Comment on above: Performed By: #### Yen G, CBC, BMP ####[address] Neutrophils (Bld) [#/Vol] 8.7 10*3/uL High 1.8-7.7 The [facility]ending [facility] Comment on above: Performed By: #### Yen G, CBC, BMP ####[address] Neutrophils/100 WBC (Bld) 73.6 % Normal . The [facility]ending [facility] Comment on above: Performed By: #### Yen James, CBC, BMP ####[address] NRBC% 0.1 /100{WBC} Normal 0-0.5 The [facility]ending [facility] Comment on above: Performed By: #### M G, CBC, BMP ####[address] Platelet mean volume (Bld) [Entitic vol] 9.7 fL Normal 6.6-10.1 The [facility]ending [facility] Comment on above: Performed By: #### Yen G, CBC, BMP ####[address] Platelets (Bld) [#/Vol] 103 10*3/uL Low 150-450 [facility]ending [facility] Comment on above: Performed By: #### Yen G, CBC, BMP ####[address] [place] [address] [facility] RBC (Bld) [#/Vol] 3.91 10*6/uL Normal 3.90-5.60 The [facility]ending [facility] Comment on above: Performed By: #### M G, CBC, BMP ####[address] [place] [address] [facility] WBC (Bld) [#/Vol] 11.9 10*3/uL High 4.1-10.5 The [facility]ending [facility] Comment on above: Performed By: #### M G, CBC, BMP ####[address] [place] [address] [facility] Magnesiumon 10-27-2022 Magnesium [Mass/Vol] 1.5 mg/dL Low 1.9-2.7 The [facility] Comment on above: Result Comment: PERF ORMED BY:[address] [place], [place] [phone] MEDICAL DIRECTORANNIKA NOGUEIRA M.D. Performed By: #### M G, CBC, BMP ####[address] [address] [facility] Redraw Potassiumon 3 Potassium [Moles/Vol] 3.8 mmol/L Normal 3.5-5.1 [facility] Comment on above: Result Comment: PERF ORMED BY:[address] [place], [place] [phone] MEDICAL DIRECTORANNIKA NOGUEIRA M.D. Performed By: #### R EDRAW K, URIC ####[address] [address] [facility] Urate [Mass/volume] in Serum or PlasmaOrdered By: Siddhartha Chino on 10-27-2022 Urate [Mass/Vol] 4.6 mg/dL Normal 4.4-7.6 [facility] Comment on above: Result Comment: PERF ORMED BY:[address] [place], [place] [phone] MEDICAL DIRECTORANNIKA NOGUEIRA M.D. Performed By: #### R TIM SAPP ####[address] [place] [id number] [facility] Activated partial thrombopla stin time (aPTT) in platelet poor plasma by coagulation aOrdered By: Edilberto Wilkerson on 10-26-2022 aPTT Coag (PPP) [Time] 29.5 s 25.1-36.5 [facility] Comment on above: A hematocrit value g reater than 55% may lead to inaccurate results in coagulation testing. Patients having hematocrit values >55% require a special collection tube for coagulation studies. Please contact the laboratory at [phone] for redraw instructions. Alanine aminotransferase [En zymatic activity/volume] in Serum or PlasmaOrdered By: Edilberto Wilkerson on 10-26-2022 ALT [Catalytic activity/Vol] 17 U/L Normal 7-52 [facility] Comment on above: Order Comment: RN No tified AB 1433 Performed By: #### C MP, HS TROP, PTT, ETOH, CK, CBC, PT ####[facility] [id number] [id number] [facility] Albumin [Mass/volume] in Ser um or Plasma by Bromocresol green (BCG) dye binding methoOrdered By: Edilberto Wilkerson on 10-26-2022 Albumin BCG dye [Mass/Vol] 3.9 g/dL 3.5-5.7 [facility] Alkaline phosphatase [Enzyma tic activity/volume] in Serum or PlasmaOrdered By: Edilberto Wilkerson on 10-26-2022 ALP [Catalytic activity/Vol] 79 U/L Normal 34-104 [facility] Comment on above: Order Comment: RN No tified AB 1433 Performed By: #### C MP, HS TROP, PTT, ETOH, CK, CBC, PT ####[address] [place] [phone] [facility] Amphetamine Screen Ql (U)Ord ered By: Edilberto Wilkerson on 10-26-2022 Amphetamines Ql (U) Negative Negative [facility] Aspartate aminotransferase [ Enzymatic activity/volume] in Serum or PlasmaOrdered By: Edilberto Wilkerson on 10-26-2022 AST [Catalytic activity/Vol] 42 U/L High 13-39 [facility] Comment on above: Order Comment: RN No tified AB 1433 Performed By: #### C MP, HS TROP, PTT, ETOH, CK, CBC, PT ####[address] [place] [phone] [facility] Automated basophil %Ordered By: Edilberto Wilkerson on 10-26-2022 Basophils/100 WBC (Bld) 0.6 % Normal . [facility] Comment on above: Order Comment: RN No tified AB 1433 Performed By: #### C MP, HS TROP, PTT, ETOH, CK, CBC, PT ####[id number] [facility] Automated basophil countOrde red By: Edilberto Wilkerson on 10-26-2022 Basophils (Bld) [#/Vol] 0.1 10*3/uL Normal 0.0-0.2 [facility] Comment on above: Order Comment: RN No tified AB 1433 Result Comment: PERF ORMED BY:[address] [place], [place] [phone] MEDICAL DIRECTORANNIKA NOGUEIRA M.D. Performed By: #### C MP, HS TROP, PTT, ETOH, CK, CBC, PT ####[id number] [facility] Automated blood monocyte cou ntOrdered By: Edilberto Wilkerson on 10-26-2022 Monocytes (Bld) [#/Vol] 1.0 10*3/uL High 0.0-0.8 [facility] Comment on above: Order Comment: RN No tified AB 1433 Performed By: #### C MP, HS TROP, PTT, ETOH, CK, CBC, PT ####[id number] [facility] Automated eosinophil %Ordere d By: Edilberto Wilkerson on 10-26-2022 Eosinophils/100 WBC (Bld) 1.0 % Normal . [facility] Comment on above: Order Comment: RN No tified AB 1433 Performed By: #### C MP, HS TROP, PTT, ETOH, CK, CBC, PT ####[facility] [place] [address] [facility] Automated eosinophil countOr dered By: Edilbertomathew Wilkerson on 10-26-2022 Eosinophils (Bld) [#/Vol] 0.1 10*3/uL Normal 0.0-0.45 [facility] Comment on above: Order Comment: RN No tified AB 1433 Performed By: #### C MP, HS TROP, PTT, ETOH, CK, CBC, PT ####[address] [place] [phone] [facility] Automated erythrocytes count in urine sediment (number/area)Ordered By: Edilberto Wilkerson on 10-26-2022 RBC Auto (Urine sed) [#/Area] 1-2 [HPF] 0-4 [facility] Automated leukocytes count i n urine sediment (number/area)Ordered By: Edilberto Wilkerson on 10-26-2022 WBC Auto (Urine sed) [#/Area] 10-19 [HPF] 0-4 [facility] Automated monocyte %Ordered By: Edilberto Wilkerson on 10-26-2022 Monocytes/100 WBC (Bld) 11.9 % Normal . [facility] Comment on above: Order Comment: RN No tified AB 1433 Performed By: #### C MP, HS TROP, PTT, ETOH, CK, CBC, PT ####[address] [place] [phone] [facility] Automated neutrophil %Ordere d By: Edilberto Wilkerson on 10-26-2022 Neutrophils/100 WBC (Bld) 67.7 % Normal . [facility] Comment on above: Order Comment: RN No tified AB 1433 Performed By: #### C MP, HS TROP, PTT, ETOH, CK, CBC, PT ####[address] [place] [phone] [facility] Automated urine color determ inationOrdered By: Edilberto Wilkerson on 10-26-2022 Color (U) Yellow Normal Yellow [facility] Comment on above: Order Comment: Name Collection Type:: Clean-Voided Midstream Performed By: #### A DDONUAPLUS, URDS ####[id number] [facility] Barbiturates [Presence] in U rine by Screen methodOrdered By: Edilberto Wilkerson on 10-26-2022 Barbiturates Screen Ql (U) Negative Negative [facility] Benzodiazepines Screen Ql (U )Ordered By: Edilberto Wilkerson on 10-26-2022 Benzodiazepines Ql (U) Negative Negative [facility] Benzoylecgonine [Presence] i n Urine by Screen methodOrdered By: Edilberto Wilkerson on 10-26-2022 Benzoylecgonine Screen Ql (U) Negative Negative [facility] Bilirubin Test strip Ql (U)O rdered By: Edilberto Wilkerson on 10-26-2022 Bilirubin Ql (U) Negative Negative [facility] Bilirubin.total [Mass/volume ] in Serum or PlasmaOrdered By: Edilberto Wilkerson on 10-26-2022 Bilirubin [Mass/Vol] 1.4 mg/dL High 0.3-1.0 [facility] Comment on above: Samples from patient s [...] HS TROP, PTT, ETOH, CK, CBC, PT ####[facility] [place] [address] [facility] C reactive protein [Mass/vol ume] in Serum or PlasmaOrdered By: Hilary Tolliver on 10-26-2022 CRP [Mass/Vol] 8.3 mg/dL 0.0-0.5 [facility] C-Reactive Proteinon 023 C-Reactive Protein 8.3 mg/dL High 0.0-0.5 [facility]ending [facility] Comment on above: Result Comment: PERF ORMED BY:[address] [place], [place] [phone] MEDICAL DIRECTORANNIKA NOGUEIRA M.D. Performed By: #### E SR, CRP ####[address] [place] [phone] [facility] CT cervical spine wo conon 0 10-26-2022 CT cervical spine wo con Normal [facility]ending [facility] Calcium [Mass/volume] in Ser um or PlasmaOrdered By: Edilberto Wilkerson on 10-26-2022 Calcium [Mass/Vol] 8.6 mg/dL Normal 8.6-10.3 [facility] Comment on above: Order Comment: RN No tified AB 1433 Performed By: #### C MP, HS TROP, PTT, ETOH, CK, CBC, PT ####[facility] [id number] [id number] [facility] Cannabinoids [Presence] in U rine by Screen methodOrdered By: Edilberto Wilkerson on 10-26-2022 Cannabinoids Screen Ql (U) Negative Negative [facility] Comment on above: These are unconfirme d results and should not be used for legal purposes. Drug Cut-Off Concentration: AMPH 1000 ng/mL MAYDA 200 ng/mL ISABEL 200 ng/mL COCM 300 ng/mL OP 300 ng/mL PCP 25 ng/mL THC 20 ng/mL Carbon dioxide, total [Moles /volume] in Serum or PlasmaOrdered By: Edilberto Wilkerson on 10-26-2022 CO2 [Moles/Vol] 26.6 mmol/L Normal 21.0-31.0 [facility] Comment on above: Order Comment: RN No tified AB 1433 Performed By: #### C MP, HS TROP, PTT, ETOH, CK, CBC, PT ####[facility] [address] [place] [address] [facility] Chloride [Moles/volume] in S sammy or PlasmaOrdered By: Edilberto Wilkerson on 10-26-2022 Chloride [Moles/Vol] 100 mmol/L Normal 98-107 [facility] Comment on above: Order Comment: RN No tified AB 1433 Performed By: #### C MP, HS TROP, PTT, ETOH, CK, CBC, PT ####[id number] [facility] Complete Blood Count Auto Di ffon 10-26-2022 Mean Corpuscular HGB Conc 33.5 g/dL Normal 32.5-35.6 [facility] Comment on above: Order Comment: RN Bre severianoied AB 1433 Performed By: #### C MP, HS TROP, PTT, ETOH, CK, CBC, PT ####[address] Monocytes/100 WBC (Bld) 20.58 % High 0.00-20.00 [facility] Comment on above: Order Comment: RN No severianoied AB 1433 Result Comment: For adults in ED, MDW > 20.0 may be associated with a higher risk of sepsis during the first 12 hrs of hospital admission Performed By: #### C MP, HS TROP, PTT, ETOH, CK, CBC, PT ####[address] NRBC% 0.1 /100{WBC} Normal 0-0.5 [facility] Comment on above: Order Comment: RN No severianovinay AB 1433 Performed By: #### C MP, HS TROP, PTT, ETOH, CK, CBC, PT ####[place] [id number] [facility] Comprehensive Metabolic Pane negro 10-26-2022 Albumin [Mass/Vol] 3.9 g/dL Normal 3.5-5.7 [facility] Comment on above: Order Comment: RN Bre severianoied AB 1433 Performed By: #### C MP, HS TROP, PTT, ETOH, CK, CBC, PT ####[address] Creatinine Clr Calc Pharmacy 52.57 Normal [facility]ending [facility] Comment on above: Order Comment: RN No severianoied AB 1433 Result Comment: PERF ORMED BY:[address] [place] [phone] MEDICAL JADEN NOGUEIRA M.D. Performed By: #### C MP, HS TROP, PTT, ETOH, CK, CBC, PT ####[address] [place] [address] [facility] GFR/1.73 sq M.predicted MDRD (S/P/Bld) [Vol rate/Area] 52.539 mL/min/{1.73_m2} Normal [facility] Comment on above: Order Comment: LAVELL Bre kahnna AB 1433 Performed By: #### C MP, HS TROP, PTT, ETOH, CK, CBC, PT ####[address] [address] [facility] Creatine kinase [Enzymatic a ctivity/volume] in Serum or PlasmaOrdered By: Edilberto Wilkerson on 10-26-2022 CK [Catalytic activity/Vol] 586 U/L High 30-223 [facility] Comment on above: Order Comment: RN Bre MADRIGAL 1433 Performed By: #### C MP, HS TROP, PTT, ETOH, CK, CBC, PT ####[address] [address] [facility] Creatinine [Mass/volume] in Serum or PlasmaOrdered By: Edilberto Wilkerson on 10-26-2022 Creatinine [Mass/Vol] 1.39 mg/dL High 0.70-1.30 [facility] Comment on above: Order Comment: LAVELL Bre MADRIGAL 1433 Performed By: #### C MP, HS TROP, PTT, ETOH, CK, CBC, PT ####[address] [address] [place] Dipstick and Microscopicon 0 10-26-2022 Appearance (U) Clear Normal Clear [facility] Comment on above: Order Comment: Name Collection Type:: Clean-Voided Midstream Performed By: #### A DDONUAPLUS, URDS ####[address] [address] [facility] Bacteria,Urine None Seen Normal None Seen [facility] Comment on above: Order Comment: Name Collection Type:: Clean-Voided Midstream Performed By: #### A DDONUAPLUS, URDS ####[address] [address] [facility] Bilirubin,Urine Negative Normal Negative [facility]ending [facility] Comment on above: Order Comment: Name Collection Type:: Clean-Voided Midstream Performed By: #### A DDONUAPLUS, URDS ####[address] [address] [facility] Glucose Ql (U) Normal Normal Normal [facility] Comment on above: Order Comment: Name Collection Type:: Clean-Voided Midstream Performed By: #### A DDONUAPLUS, URDS ####[address] [address] [facility] Hyaline Casts,Urine 0-8 Normal 0-8 [facility] Comment on above: Order Comment: Name Collection Type:: Clean-Voided Midstream Result Comment: PERF ORMED BY:[address] [place], [place] [phone] MEDICAL DIRECTORANNIKA NOGUEIRA M.D. Performed By: #### A DDONUAPLUS, URDS ####[address] [address] [facility] Ketones Ql (U) Negative Normal Negative [facility] Comment on above: Order Comment: Name Collection Type:: Clean-Voided Midstream Performed By: #### A DDONUAPLUS, URDS ####[address] [address] [facility] Leukocyte esterase Test strip Ql (U) Negative Normal Negative The Pending Sale To [facility] Comment on above: Order Comment: Name Collection Type:: Clean-Voided Midstream Performed By: #### A DDONUAPLUS, URDS ####[address] [address] [facility] Nitrite,Urine Negative Normal Negative The Pending Sale To [facility] Comment on above: Order Comment: Name Collection Type:: Clean-Voided Midstream Performed By: #### A DDONUAPLUS, URDS ####[address] [address] [facility] Occult Blood,Urine 1+ High Negative The Pending Sale To [facility] Comment on above: Order Comment: Name Collection Type:: Clean-Voided Midstream Result Comment: PERF ORMED BY:[address] [place], [place] [id number] MEDICAL DIRECTORANNIKA NOGUEIRA M.D. Performed By: #### A DDONUAPLUS, URDS ####[address] [place] [address] [facility] RBC,Urine 1-2 Normal 0-4 The Pending [facility] To [facility] Comment on above: Order Comment: Name Collection Type:: Clean-Voided Midstream Performed By: #### A DDONUAPLUS, URDS ####[id number] [facility] Specificy [place],Urine 1.016 Normal 1.001-1.03 0 The Pending [facility] To [facility] Comment on above: Order Comment: Name Collection Type:: Clean-Voided Midstream Performed By: #### A DDONUAPLUS, URDS ####[id number] [facility] Squamous Epithelial Cell,Urine None Seen Normal 0-2 The Pending Sale To [facility] Comment on above: Order Comment: Name Collection Type:: Clean-Voided Midstream Performed By: #### A DDONUAPLUS, URDS ####[id number] [facility] Urobilinogen,Urine Normal Normal Normal The Pending Sale To [facility] Comment on above: Order Comment: Name Collection Type:: Clean-Voided Midstream Performed By: #### A DDONUAPLUS, URDS ####[id number] [facility] WBC,Urine 10-19 High 0-4 The Pending Sale To [facility] Comment on above: Order Comment: Name Collection Type:: Clean-Voided Midstream Performed By: #### A DDONUAPLUS, URDS ####[id number] [facility] Drug Screen,Urineon 10-27-19 23 Amphetamine Screen,Urine Negative Normal Negative The Pending Sale To [facility] Comment on above: Performed By: #### A DDONUAPLUS, URDS ####[id number] [facility] Barbiturate Screen,Urine Negative Normal Negative The Pending Sale To [facility] Comment on above: Performed By: #### A DDONUAPLUS, URDS ####[id number] [facility] Benzodiazepines Screen,Urine Negative Normal Negative The Pending Sale To [facility] Comment on above: Performed By: #### A DDONUAPLUS, URDS ####[id number] [facility] Cannabinoid Screen,Urine Negative Normal Negative The Pending [facility] To [facility] Comment on above: Result Comment: Thes e are unconfirmed results and should not be used for legal purposes. Drug Cut-Off Concentration: AMPH 1000 ng/mL MAYDA 200 ng/mL ISABEL 200 ng/mL COCM 300 ng/mL OP 300 ng/mL PCP 25 ng/mL THC 20 ng/mLPERFORMED BY:[address] [address] [place] [phone] MEDICAL DIRECTORANNIKA NOGUEIRA M.D. Performed By: #### A DDONUAPLUS, URDS ####[address] Cocaine Screen,Urine Negative Normal Negative The Pending Sale To [facility] Comment on above: Performed By: #### A DDONUAPLUS, URDS ####[address] Opiate Screen,Urine Positive High Negative The Pending Sale To [facility] Comment on above: Performed By: #### A DDONUAPLUS, URDS ####[address] Phencyclidine Screen,Urine Negative Normal Negative The Pending Sale To [facility] Comment on above: Performed By: #### A DDONUAPLUS, URDS ####[id number] [facility] ECG 12 lead ECGon 10-26-2022 ECG 12 lead ECG Normal The Pending [facility] To [facility] Erythrocyte Sedimentation Ra sung 10-26-2022 ESR (Bld) [Velocity] 47 mm/h High 0-19 The Pending Sale To [facility] Comment on above: Result Comment: PERF ORMED BY:[address] [address] [place], [place] [phone] MEDICAL DIRECTORANNIKA NOGUEIRA M.D. Performed By: #### E SR, CRP ####[address] [place] [id number] [facility] Erythrocyte distribution wid th [Ratio] by Automated countOrdered By: Edilberto Wilkerson on 10-26-2022 Erythrocyte distribution width (RBC) [Ratio] 14.7 % Normal 12.0-14.8 [facility] Comment on above: Order Comment: RN No tified AB 1433 Performed By: #### C MP, HS TROP, PTT, ETOH, CK, CBC, PT ####[address] [place] [address] [facility] Erythrocyte sedimentation ra te by Photometric methodOrdered By: Hilary Tolliver on 10-26-2022 ESR Photometric method (Bld) [Velocity] 47 mm/hr 0-19 [facility] Erythrocytes [#/volume] in B lood by Automated countOrdered By: Edilberto Wilkerson on 10-26-2022 RBC (Bld) [#/Vol] 3.90 10*6/uL Normal 3.90-5.60 [facility] Comment on above: Order Comment: RN No tified AB 1433 Performed By: #### C MP, HS TROP, PTT, ETOH, CK, CBC, PT ####[address] [place] [address] [facility] Ethanol [Mass/volume] in Ser um or PlasmaOrdered By: Edilberto Wilkerson on 10-26-2022 Ethanol [Mass/Vol] mg/dL Normal [facility] Comment on above: Order Comment: RN No tified AB 1433 Performed By: #### C MP, HS TROP, PTT, ETOH, CK, CBC, PT ####[address] [address] [facility] Ethanol [Mass/Vol] TNP [facility] Comment on above: Test not performed Ethyl Alcohol Profileon 10-14 Percent Ethanol Not performed Normal The Pending Sale To [facility] Comment on above: Order Comment: RN No tified AB 1433 Result Comment: PERF ORMED BY:[address] [place], [place] [phone] MEDICAL DIRECTORANNIKA NOGUEIRA M.D. Performed By: #### C MP, HS TROP, PTT, ETOH, CK, CBC, PT ####[address] [place] [address] [facility] Glucose [Mass/volume] in Ser um or PlasmaOrdered By: Edilberto Wilkerson on 10-26-2022 Glucose [Mass/Vol] 102 mg/dL High 70-100 [facility] Comment on above: ADA recommended refe rence rangeRandom Glucose Reference Range is dependent on time and content of last meal. Glucose of more than 200 mg/dL in a nonstressed, ambulatory subject supports the diagnosis of Diabetes Mellitus. Order Comment: LAVELL Díaz tified AB 143 Result Comment: [place] om Glucose Reference Range is dependent on time and content of last meal. Glucose of more than 200 mg/dL in a nonstressed, ambulatory subject supports the diagnosis of Diabetes Mellitus. ADA recommended reference range Performed By: #### C MP, HS TROP, PTT, ETOH, CK, CBC, PT ####[address] [place] [address] [facility] Hematocrit [Volume Fraction] of Blood by Automated countOrdered By: Edilberto Wilkerson on 10-26-2022 Hematocrit (Bld) [Volume fraction] 39.2 % Normal 38.8-50.0 [facility] Comment on above: Order Comment: LAVELL Díaz tified AB 1433 Performed By: #### C MP, HS TROP, PTT, ETOH, CK, CBC, PT ####[address] [place] [address] [facility] Hemoglobin [Mass/volume] in BloodOrdered By: Edilberto Wilkerson on 10-26-2022 Hemoglobin (Bld) [Mass/Vol] 13.1 g/dL Normal 13.0-17.0 [facility] Comment on above: Order Comment: LAVELL No tified AB 1433 Performed By: #### C MP, HS TROP, PTT, ETOH, CK, CBC, PT ####[address] [place] [address] [facility] INR in Platelet poor plasma by Coagulation assayOrdered By: Edilberto Wilkerson on 10-26-2022 INR Coag (PPP) [Relative time] 1.2 {INR} Normal [facility] Comment on above: INR Therapeutic Rang [...] HS TROP, PTT, ETOH, CK, CBC, PT ####[facility] [id number] Ketones Auto test strip (U) [Mass/Vol]Ordered By: Edilberto Wilkerson on 10-26-2022 Ketones (U) [Mass/Vol] Negative Negative [facility] - UrinalysisOrder ed By: Eidlberto Wilkerson on 10-26-2022 Hyaline casts LM Ql (Urine sed) 0-8 [LPF] 0-8 [facility] Leukocytes [#/volume] correc michelle for nucleated erythrocytes in Blood by Automated counOrdered By: Edilberto Wilkerson on 10-26-2022 WBC corrected for nucl RBC Auto (Bld) [#/Vol] 8.5 10*3/uL 4.1-10.5 [facility] Leukocytes [#/volume] in Blo od by Automated countOrdered By: Edilberto Wilkerson on 10-26-2022 WBC (Bld) [#/Vol] 8.5 10*3/uL Normal 4.1-10.5 [facility] Comment on above: Order Comment: LAVELL No tified AB 1433 Performed By: #### C MP, HS TROP, PTT, ETOH, CK, CBC, PT ####[address] [place] [id number] [facility] Lymphocytes [#/volume] in Bl ood by Automated countOrdered By: Edilberto Wilkerson on 10-26-2022 Lymphocytes (Bld) [#/Vol] 1.6 10*3/uL Normal 1.00-4.8 [facility] Comment on above: Order Comment: RN No tified AB 1433 Performed By: #### C MP, HS TROP, PTT, ETOH, CK, CBC, PT ####[id number] [facility] Lymphocytes/100 leukocytes i n Blood by Automated countOrdered By: Edilberto Wilkerson on 10-26-2022 Lymphocytes/100 WBC (Bld) 18.8 % Normal . [facility] Comment on above: Order Comment: RN Bre severianoied AB 1433 Performed By: #### C MP, HS TROP, PTT, ETOH, CK, CBC, PT ####[id number] [facility] MCH [Entitic mass] by Automa michelle countOrdered By: Edilberto Wilkerson on 10-26-2022 MCH (RBC) [Entitic mass] 33.7 pg Normal 27.5-35.2 [facility] Comment on above: Order Comment: RN No tified AB 1433 Performed By: #### C MP, HS TROP, PTT, ETOH, CK, CBC, PT ####[id number] [facility] MCHC Auto (RBC) [Mass/Vol]Or dered By: Edilberto Wilkerson on 10-26-2022 MCHC (RBC) [Mass/Vol] 33.5 g/dL 32.5-35.6 [facility] MCV [Entitic volume] by Auto mated countOrdered By: Edilberto Wilkerson on 10-26-2022 MCV (RBC) [Entitic vol] 100.6 fL Normal 83.5-101 [facility] Comment on above: Order Comment: RN No tified AB 1433 Performed By: #### C MP, HS TROP, PTT, ETOH, CK, CBC, PT ####[id number] [facility] Monocyte distribution width [Entitic volume] in Blood by AutomatedOrdered By: Edilberto Wilkerson on 10-26-2022 Monocyte distribution width Auto (Bld) [Entitic vol] 20.58 % 0.00-20.00 [facility] Comment on above: For adults in ED, MD W > 20.0 may be associated with a higher risk of sepsis during the first 12 hrs of hospital admission Neutrophils [#/volume] in Bl ood by Automated countOrdered By: Edilberto Wilkerson on 10-26-2022 Neutrophils (Bld) [#/Vol] 5.8 10*3/uL Normal 1.8-7.7 [facility] Comment on above: Order Comment: RN No tified AB 1433 Performed By: #### C MP, HS TROP, PTT, ETOH, CK, CBC, PT ####[facility] [id number] [place] [address] [facility] Nitrite Test strip Ql (U)Ord ered By: Edilberto Wilkerson on 10-26-2022 Nitrite Ql (U) Negative Negative [facility] No Panel InformationOrdered By: Edilberto Wilkerson on 10-26-2022 Estimated GFR (CKD-EPI) 52.539 mL/Min [facility] Creatinine Clearance (Chem 52.57 [facility] Nucleated erythrocytes [Pres ence] in Blood by Automated countOrdered By: Edilberto Wilkerson on 10-26-2022 Nucleated RBC Auto Ql (Bld) 0.1 /100{WBC} 0-0.5 [facility] Opiates [Presence] in Urine by Screen methodOrdered By: Edilberto Wilkerson on 10-26-2022 Opiates Screen Ql (U) Positive Negative [facility] Partial Thromboplastin Timeo n 10-26-2022 aPTT Coag (Bld) [Time] 29.5 s Normal 25.1-36.5 Th e Pending Sale To [facility] Comment on above: Order Comment: RN No tified AB 1433 Result Comment: A he matocrit value greater than 55% may lead to inaccurate results in coagulation testing. Patients having hematocrit values >55% require a special collection tube for coagulation studies. Please contact the laboratory at [phone] for redraw instructions.PERFORMED BY:[address] [place], [place] [phone] MEDICAL DIRECTORANNIKA NOGUEIRA M.D. Performed By: #### C MP, HS TROP, PTT, ETOH, CK, CBC, PT ####[address] [place] [address] [facility] Phencyclidine Screen Ql (U)O rdered By: Edilberto Wilkerson on 10-26-2022 Phencyclidine Ql (U) Negative Negative [facility] Platelet mean volume [Entiti c volume] in Blood by Automated countOrdered By: Edilberto Wilkerson on 10-26-2022 Platelet mean volume (Bld) [Entitic vol] 9.8 fL Normal 6.6-10.1 [facility] Comment on above: Order Comment: LAVELL Díaz tified AB 1433 Performed By: #### C MP, HS TROP, PTT, ETOH, CK, CBC, PT ####[id number] [place] Platelets [#/volume] in Bloo d by Automated countOrdered By: Edilberot Wilkerson on 10-26-2022 Platelets (Bld) [#/Vol] 104 10*3/uL Low 150-450 [facility] Comment on above: Order Comment: RN No tified AB 1433 Performed By: #### C MP, HS TROP, PTT, ETOH, CK, CBC, PT ####[address] [address] [place] Potassium [Moles/volume] in Serum or PlasmaOrdered By: Edilberto Wilkerson on 10-26-2022 Potassium [Moles/Vol] 3.6 mmol/L Normal 3.5-5.1 [facility] Comment on above: Order Comment: RN No tified AB 1433 Performed By: #### C MP, HS TROP, PTT, ETOH, CK, CBC, PT ####[address] [address] [facility] Protein [Mass/volume] in Ser um or PlasmaOrdered By: Edilberto Wilkerson on 10-26-2022 Protein [Mass/Vol] 7.3 g/dL Normal 6.4-8.9 [facility] Comment on above: Order Comment: RN Bre jey AB 1433 Performed By: #### C MP, HS TROP, PTT, ETOH, CK, CBC, PT ####[facility] [id number] [facility] Prothrombin time (PT)Ordered By: Edilberto Wilkerson on 10-26-2022 PT Coag (PPP) [Time] 14.9 s High 9.0-12.9 [facility] Comment on above: A hematocrit value g reater than 55% may lead to inaccurate results in coagulation testing. Patients having hematocrit values >55% require a special collection tube for coagulation studies. Please contact the laboratory at [phone] for redraw instructions. Order Comment: LAVELL Díaz jey AB 1433 Result Comment: A he matocrit value greater than 55% may lead to inaccurate results in coagulation testing. Patients having hematocrit values >55% require a special collection tube for coagulation studies. Please contact the laboratory at [phone] for redraw instructions. Performed By: #### C MP, HS TROP, PTT, ETOH, CK, CBC, PT ####[address] [place] [phone] [facility] Serum globulin measurement b y calculation (mass/volume)Ordered By: Edilberto Wilkerson on 10-26-2022 Globulin (S) [Mass/Vol] 3.4 g/dL [facility] Comment on above: Order Comment: LAVELL khanna AB 1433 Performed By: #### C MP, HS TROP, PTT, ETOH, CK, CBC, PT ####[address] [place] [id number] [facility] Serum or plasma albumin/glob ulin mass ratioOrdered By: Edilberto Wilkerson on 10-26-2022 Albumin/Globulin [Mass ratio] 1.1 {ratio} [facility] Comment on above: Order Comment: LAVELL العليvinay AB 1433 Performed By: #### C MP, HS TROP, PTT, ETOH, CK, CBC, PT ####[address] [place] [id number] [facility] Serum or plasma anion gap de terminationOrdered By: Edilberto Wilkerson on 09-13-2023 Anion gap [Moles/Vol] 14.0 mmol/L Normal 6.0-15.0 [facility] Comment on above: Order Comment: RN No tified AB 1433 Performed By: #### C MP, HS TROP, PTT, ETOH, CK, CBC, PT ####[address] [place] [address] [facility] Sodium [Moles/volume] in Ser um or PlasmaOrdered By: Edilberto Wilkerson on 10-26-2022 Sodium [Moles/Vol] 137 mmol/L Normal 136-145 [facility] Comment on above: Order Comment: RN No tified AB 1433 Performed By: #### C MP, HS TROP, PTT, ETOH, CK, CBC, PT ####[address] [place] [id number] [facility] Specific gravity Auto test s trip (U) [Rel density]Ordered By: Edilberto Wilkerson on 10-26-2022 Specific gravity (U) [Rel density] 1.016 1.001-1.03 0 [facility] Squamous epithelial cells de tection in urine sediment by light microscopyOrdered By: Edilberto Wilkerson on 10-26-2022 Epithelial cells.squamous LM Ql (Urine sed) None seen [HPF] 0-2 [facility] Troponin I High Sensitivityo n 10-26-2022 Troponin I High Sensitivity 36.6 pg/mL High 0.0-20.0 The Pending [facility] To [facility] Comment on above: Order Comment: RN No tified AB 1433 Result Comment: PERF ORMED BY:[address] [place], [place] [id number] MEDICAL DIRECTORANNIKA NOGUEIRA M.D. Performed By: #### C MP, HS TROP, PTT, ETOH, CK, CBC, PT ####[address] [place] [address] [facility] Troponin I.cardiac [Mass/vol ume] in Serum or Plasma by Detection limit <= 0.01 ng/Ordered By: Edilberto Wilkerson on 10-26-2022 Troponin I.cardiac DL <= 0.01 ng/mL [Mass/Vol] 36.6 pg/mL 0.0-20.0 [facility] Urea nitrogen [Mass/volume] in Serum or PlasmaOrdered By: Edilberto Wilkerson on 10-26-2022 Urea nitrogen [Mass/Vol] 23 mg/dL Normal 7-25 [facility] Comment on above: Order Comment: LAVELL khanna AB 1433 Performed By: #### C MP, HS TROP, PTT, ETOH, CK, CBC, PT ####[facility] Pre[address] Urine bacteria detection by automated methodOrdered By: Edilberto Wilkerson on 10-26-2022 Bacteria Auto Ql (U) None seen None Seen [facility] Urine clarity by refractomet ry automatedOrdered By: Edilberto Wilkerson on 10-26-2022 Clarity Refractometry automated (U) Clear Clear [facility] Urine glucose measurement by automated test strip (mass/volume)Ordered By: Edilberto Wilkerson on 10-26-2022 Glucose Auto test strip (U) [Mass/Vol] Normal mg/dL Normal [facility] Urine hemoglobin detection b y automated test stripOrdered By: Edilberto Wilkerson on 10-26-2022 Hemoglobin Auto test strip Ql (U) 1+ Negative [facility] Urine leukocyte esterase det ection by automated test stripOrdered By: Edilberto Wilkerson on 10-26-2022 Leukocyte esterase Auto test strip Ql (U) Negative Negative [facility] Urine pH measurement by auto mated test stripOrdered By: Edilberto Wilkerson on 10-26-2022 pH (U) 5.0 [pH] Normal 5.0-9.0 [facility] Comment on above: Order Comment: Name Collection Type:: Clean-Voided Midstream Performed By: #### A DDONUAPLUS, URDS ####[address] [place] [id number] [facility] Urine protein measurement by automated test strip (mass/volume)Ordered By: Edilberto Wilkerson on 10-26-2022 Protein (U) [Mass/Vol] 300 mg/dL High Negative [facility] Comment on above: Order Comment: Name Collection Type:: Clean-Voided Midstream Performed By: #### A DDONUAPLUS, URDS ####[facility] Urobilinogen Auto test strip (U) [Mass/Vol]Ordered By: Edilberto Wilkerson on 10-26-2022 Urobilinogen (U) [Mass/Vol] Normal mg/dL Normal [facility] XR knee RT 2Von 10-26-2022 XR knee RT 2V Normal The Pending [facility] Basophils Auto (Bld) [#/Vol] Ordered By: Andrea Major on 09-10-2021 Basophils (Bld) [#/Vol] 0.0 10*3/uL 0.0-0.2 [facility] Basophils/100 WBC Auto (Bld) Ordered By: Andrea Major on 09-10-2021 Basophils/100 WBC (Bld) 0.6 % . [facility] Blood hemoglobin measurement (mass/volume)Ordered By: Andrea Major on 09-10-2021 Hemoglobin (Bld) [Mass/Vol] 12.0 g/dL 13.0-17.0 [facility] Blood leukocytes automated c ount (number/volume)Ordered By: Andrea Major on 09-10-2021 WBC (Bld) [#/Vol] 4.3 10*3/uL 4.5-11.0 [facility] Blood thiamine measurement ( moles/volume)Ordered By: Dennis Camargo on 09-10-2021 Thiamine (Bld) [Moles/Vol] 115.0 nmol/L 66.5-200.0 [facility] Comment on above: This test was devfloro ped and its performance characteristics determined by [facility]. It has not been cleared or approved by the Food and Drug Administration. Performed at: [address] [id number] [employer] Operator: Shaun Montiel MD, Phone: [phone] C reactive protein [Mass/vol ume] in Serum or PlasmaOrdered By: Emma Davidson on 09-10-2021 CRP [Mass/Vol] < 0.5 mg/dL 0.0-1.0 [facility] COVID CepheidOrdered By: Jeanette Bradley on 09-10-2021 SARS-CoV-2 (COVID-19) Ab IA Ql Negative Negative [facility] Comment on above: This is a duplicate [employer] FFT Xpert Xpress CoV-2/Flu/RSV Plus RNA by RT-PCR result to be used for statistical tracking purpose only. SARS-CoV-2 (COVID-19) RNA GIANLUCA+probe Ql (Unsp spec) [facility] Cholesterol [Mass/volume] in Serum or PlasmaOrdered By: Andrea Major on 09-10-2021 Cholesterol [Mass/Vol] 100 mg/dL 140-200 [facility] Comment on above: Chol less than 200 m g/dl low risk Chol 201-239 mg/dl borderline risk Chol 240 mg/dl and greater high risk Cholesterol in LDL Calc [Mas s/Vol]Ordered By: Andrea Major on 09-10-2021 Cholesterol in LDL [Mass/Vol] 59 mg/dL 0-100 [facility] Comment on above: LDL ATP III CLASSIFI CATION LDL less than 100 mg/dL Optimal LDL 100-129 mg/dL Near or above optimal LDL 130-159 mg/dL Borderline high LDL 160-189 mg/dL High LDL greater than 189 mg/dL Very high Cholesterol in VLDL Calc [Ma ss/Vol]Ordered By: Andrea Major on 09-10-2021 Cholesterol in VLDL [Mass/Vol] 14 mg/dL [facility] Creatinine and Glomerular fi ltration rate.predicted panel (S/P/Bld)Ordered By: Andrea Major on 09-10-2021 Creatinine [Mass/Vol] 1.17 mg/dL 0.64-1.27 [facility] Eosinophils Auto (Bld) [#/Vo l]Ordered By: Andrea Major on 09-10-2021 Eosinophils (Bld) [#/Vol] 0.3 10*3/uL 0.0-0.45 [facility] Eosinophils/100 WBC Auto (Bl d)Ordered By: Andrea Major on 09-10-2021 Eosinophils/100 WBC (Bld) 6.2 % . [facility] Erythrocyte distribution wid th Auto (RBC) [Ratio]Ordered By: Andrea Major on 09-10-2021 Erythrocyte distribution width (RBC) [Ratio] 15.2 % 12.0-14.8 [facility] Erythrocyte sedimentation ra te by Photometric methodOrdered By: Emma Davidson on 09-10-2021 ESR Photometric method (Bld) [Velocity] 10 mm/hr 0-19 [facility] Estimated glomerular filtrat ion rate (GFR) non- AmericanOrdered By: Andrea Major on 09-10-2021 GFR/1.73 sq M.predicted among non-blacks MDRD (S/P/Bld) [Vol rate/Area] > 60 mL/Min [facility] Folate [Mass/volume] in Seru m or PlasmaOrdered By: Andrea Major on 09-10-2021 Folate [Mass/Vol] 11.6 ng/mL >5.9 [facility] Comment on above: Folate reference ran ge: >5.9 ng/ml The WHO technical consultation on folate and vitamin b12 deficiencies has determined that folate concentrations less than 4 ng/ml are considered deficient. Glucose mean value [Mass/vol ume] in Blood Estimated from glycated hemoglobinOrdered By: Andrea Major on 09-10-2021 Average glucose Estimated from glycated hemoglobin (Bld) [Mass/Vol] 111 mg/dL [facility] Hematocrit Auto (Bld) [Volum e fraction]Ordered By: Andrea Major on 09-10-2021 Hematocrit (Bld) [Volume fraction] 36.2 % 38.8-50.0 [facility] Hemoglobin A1c percentageOrd ered By: Andrea Major on 09-10-2021 HbA1c (Bld) [Mass fraction] 5.5 % 4.3-5.6 [facility] Comment on above: Increased risk for d iabetes: 5.7 - 6.4 diabetes: >6.4 glycemic control for adults with diabetes: <7.0 Laboratory - Chemistry and C hemistry - challengeOrdered By: Andrea Major on 09-10-2021 Cobalamin (Vitamin B12) [Mass/Vol] 339 pg/mL 180-914 [facility] Magnesium [Mass/Vol] 1.4 mg/dL 1.6-2.6 [facility] Laboratory - Hematology and Cell countsOrdered By: Andrea Major on 09-10-2021 Nucleated RBC/100 WBC (Bld) [Ratio] 0.3 % 0-0.5 [facility] Lymphocytes Auto (Bld) [#/Vo l]Ordered By: Andrea Major on 09-10-2021 Lymphocytes (Bld) [#/Vol] 1.4 10*3/uL 1.00-4.8 [facility] Lymphocytes/100 WBC Auto (Bl d)Ordered By: Andrea Major on 09-10-2021 Lymphocytes/100 WBC (Bld) 33.2 % . [facility] MCH Auto (RBC) [Entitic mass ]Ordered By: Andrea Major on 09-10-2021 MCH (RBC) [Entitic mass] 33.8 pg 27.5-35.2 [facility] MCHC Auto (RBC) [Mass/Vol]Or dered By: Andrea Major on 09-10-2021 MCHC (RBC) [Mass/Vol] 33.2 g/dL 32.5-35.6 [facility] MCV Auto (RBC) [Entitic vol] Ordered By: Andrea Major on 09-10-2021 MCV (RBC) [Entitic vol] 101.8 fL 83.5-101 [facility] Macrocytes detectionOrdered By: Andrea Major on 09-10-2021 Macrocytes Ql (Bld) Slight [facility] Monocyte %Ordered By: Mukul Davidson on 09-10-2021 Monocyte % 16 umol/L 11-35 [facility] Monocytes Auto (Bld) [#/Vol] Ordered By: Andrea Major on 09-10-2021 Monocytes (Bld) [#/Vol] 0.3 10*3/uL 0.0-0.8 [facility] Monocytes/100 WBC Auto (Bld) Ordered By: Andrea Major on 09-10-2021 Monocytes/100 WBC (Bld) 7.3 % . [facility] Neutrophils Auto (Bld) [#/Vo l]Ordered By: Andrea Major on 09-10-2021 Neutrophils (Bld) [#/Vol] 2.3 10*3/uL 1.8-7.7 [facility] Neutrophils/100 WBC Auto (Bl d)Ordered By: Andrea Major on 09-10-2021 Neutrophils/100 WBC (Bld) 52.7 % . [facility] No Panel InformationOrdered By: Dennis Camargo on 09-10-2021 25-Hydroxy Vitamin D Total 23.8 ng/mL 30-100 [facility] Comment on above: VITAMIN D STATUS 25( [place])VITAMIN D RANGE (ng/mL) Deficient <20 Insufficient 20 to <30 Sufficient 30 to 100 Reference: Masoud MF,Raul NC, Tonya COTTRELL, et al. Evaluation,treatment, and prevention of vitamin D deficiency; an Endocrine Society clinical practice guideline. JCEM. 2010; 96(7):1911-30. Vitamin C level 0.5 mg/dL 0.4-2.0 [facility] Comment on above: This test was develo ped and its performance characteristics determined by [employer]. It has not been cleared or approved by the Food and Drug Administration. Vitamin C deficiency is generally defined as plasma or serum concentrations less than 0.2 mg/dL and levels between 0.2 and 0.4 mg/dL are considered low. Performed at: [facility] [address] [id number] [employer] Operator: Shaun Montiel MD, Phone: [phone] No Panel InformationOrdered By: Andrea Major on 09-10-2021 Estimated GFR () > 60 mL/Min [facility] Comment on above: GFR estimated refere nce range: According to KDOQI guidelines, <60 ml/min/1.73m2 is sufficient to diagnose a patient with chronic kidney disease. Pharmacy Creatinine Clearance (Chem 63.43 [facility] Platelet Estimate Decreased Normal [facility] Platelet Morphology Comment Normal Normal [facility] Platelet mean volume Auto (B ld) [Entitic vol]Ordered By: Andrea Major on 09-10-2021 Platelet mean volume (Bld) [Entitic vol] 11.2 fL 6.6-10.1 [facility] Platelets Auto (Bld) [#/Vol] Ordered By: Andrea Major on 09-10-2021 Platelets (Bld) [#/Vol] 52 10*3/uL 150-450 [facility] RBC Auto (Bld) [#/Vol]Ordere d By: Andrea Major on 09-10-2021 RBC (Bld) [#/Vol] 3.56 10*6/uL 3.90-5.60 [facility] RBC morphologyOrdered By: Darshan Major on 09-10-2021 RBC morphology finding Nom (Bld) N/A [facility] Serum or plasma calcium dash urement (mass/volume)Ordered By: Andrea Major on 09-10-2021 Calcium [Mass/Vol] 8.7 mg/dL 8.2-10.2 [facility] Serum or plasma chloride radha surement (moles/volume)Ordered By: Andrea Major on 09-10-2021 Chloride [Moles/Vol] 106 mmol/L 95-114 [facility] Serum or plasma glucose dash urement (mass/volume)Ordered By: Andrea Major on 09-10-2021 Glucose [Mass/Vol] 98 mg/dL 70-100 [facility] Comment on above: ADA recommended refe rence range Random Glucose Reference Range is dependent on time and content of last meal. Glucose of more than 200 mg/dL in a nonstressed, ambulatory subject supports the diagnosis of Diabetes Mellitus. Serum or plasma high density lipoprotein (HDL) cholesterol measurementOrdered By: Andrea Major on 09-10-2021 Cholesterol in HDL [Mass/Vol] 26 mg/dL 29-71 [facility] Comment on above: HDL CHOL ATP-III CLA SSIFICATION Cardiovascular Risk HDL > or equal to 60 mg/dL LOW HDL < 40 mg/dL HIGH Serum or plasma potassium me asurement (moles/volume)Ordered By: Andrea Major on 09-10-2021 Potassium [Moles/Vol] 3.3 mmol/L 3.5-5.1 [facility] Serum or plasma sodium measu rement (moles/volume)Ordered By: Andrea Major on 09-10-2021 Sodium [Moles/Vol] 139 mmol/L 136-146 [facility] Serum or plasma total carbon dioxide measurement (moles/volume)Ordered By: Andrea Major on 09-10-2021 CO2 [Moles/Vol] 24.9 mmol/L 22.0-30.0 [facility] Serum or plasma total choles terol/high density lipoprotein (HDL) cholesterol mass ratOrdered By: Andrea Major on 09-10-2021 Cholesterol.total/Chol esterol in HDL [Mass ratio] 3.8 {ratio} <5.0 [facility] Serum or plasma urea nitroge n measurement (mass/volume)Ordered By: Andrea Major on 09-10-2021 Urea nitrogen [Mass/Vol] 15 mg/dL 9-23 [facility] TSH DL <= 0.005 mIU/L QnOrde red By: Andrea Major on 09-10-2021 TSH Qn 1.68 m[IU]/L 0.45-5.33 [facility] Thyroxine (T4) free [Mass/vo lume] in Serum or PlasmaOrdered By: Andrea Major on 09-10-2021 Free T4 [Mass/Vol] 0.90 ng/dL 0.61-1.12 [facility] Triglyceride [Mass/volume] i n Serum or PlasmaOrdered By: Andrea Major on 09-10-2021 Triglyceride [Mass/Vol] 73 mg/dL 35-149 [facility] Comment on above: TRIG ATP III [...] High sensitivity method [Mass/Vol] 115 pg/mL 0-20 [facility] Comment on above: Results called at 1216 on 09/10/21 Whole blood phosphatidyletha nol measurement by LC-MS/MS (mass/volume)Ordered By: Dennis Caamrgo on 09-10-2021 Phosphatidylethanol (Bld) [Mass/Vol] Negative NEGATIVE [facility] Comment on above: Analyzed compound: P Eth 16:0/18:1. 4-[id number]-glihwj-oa-awyjvzi-3-phosphoethanol. Analysis performed by Liquid Chromatography with Tandem [...] developed and its performance characteristics determined by [employer]. It has not been cleared or approved by the Food and Drug Administration. Performed at: [facility] [address] [place] [id number] [employer] Operator: Renae Correa [facility], Phone: [phone] Automated erythrocytes count in urine sediment (number/area)Ordered By: Tomas Bradley on 09-09-2021 RBC Auto (Urine sed) [#/Area] 0-1 [HPF] 0-4 [facility] Automated leukocytes count i n urine sediment (number/area)Ordered By: Tmoas Bradley on 09-09-2021 WBC Auto (Urine sed) [#/Area] 1-2 [HPF] 0-4 [facility] Bilirubin Auto test strip Ql (U)Ordered By: Tomas Bradley on 09-09-2021 Bilirubin Ql (U) Negative Negative [facility] Body fluid albumin measureme nt (mass/volume)Ordered By: Tomas Bradley on 09-09-2021 Albumin (Body fld) [Mass/Vol] 3.4 g/dL 3.2-5.5 [facility] COVID-19 SOFIAOrdered By: Adi Bradley on 09-09-2021 SARS-CoV+SARS-CoV-2 (COVID-19) Ag IA.rapid Ql (Resp) Negative Negative [facility] Comment on above: This is a duplicate Nena SARS Antigen (JADA) result to be used for statistical tracking purpose only. Globulin Calc (S) [Mass/Vol] Ordered By: Tomas Bradley on 09-09-2021 Globulin (S) [Mass/Vol] 3.2 g/dL [facility] Ketones Auto test strip (U) [Mass/Vol]Ordered By: Tomas Bradley on 09-09-2021 Ketones (U) [Mass/Vol] Negative Negative [facility] Laboratory - Chemistry and C hemistry - challengeOrdered By: Tomas Bradley on 09-09-2021 Natriuretic peptide B (Bld) [Mass/Vol] 262.0 pg/mL 5-100 [facility] Laboratory - UrinalysisOrder ed By: Tomas Bradley on 09-09-2021 Hyaline casts LM Ql (Urine sed) 0-8 [LPF] 0-8 [facility] Protein Auto test strip (U) [Mass/Vol]Ordered By: Tomas Bradley on 09-09-2021 Protein (U) [Mass/Vol] Trace mg/dL Negative F [facility] Protein [Mass/volume] in Ser um or PlasmaOrdered By: Tomas Bradley on 09-09-2021 Protein [Mass/Vol] 6.6 g/dL 6.1-7.9 [facility] Serum or plasma alanine tang otransferase measurement without P-5'-P (enzymatic activiOrdered By: Tomas Bradley on 09-09-2021 ALT No additional P-5'-P [Catalytic activity/Vol] 37 U/L 10-60 [facility] Serum or plasma albumin/glob ulin mass ratioOrdered By: Tomas Bradley on 09-09-2021 Albumin/Globulin [Mass ratio] 1.1 {ratio} [facility] Serum or plasma alkaline herman sphatase measurement (enzymatic activity/volume)Ordered By: Tomas Bradley on 09-09-2021 ALP [Catalytic activity/Vol] 130 U/L 32-92 [facility] Serum or plasma aspartate am inotransferase measurement (enzymatic activity/volume)Ordered By: Tomas Bradley on 09-09-2021 AST [Catalytic activity/Vol] 75 U/L 10-42 [facility] Serum or plasma total biliru bin measurement (mass/volume)Ordered By: Tomas Bradley on 09-09-2021 Bilirubin [Mass/Vol] 0.8 mg/dL 0.3-1.2 [facility] Squamous epithelial cells de tection in urine sediment by light microscopyOrdered By: Tomas Bradley on 09-09-2021 Epithelial cells.squamous LM Ql (Urine sed) 1-2 [HPF] 0-2 [facility] Urine appearanceOrdered By: Tomas Bradley on 09-09-2021 Appearance (U) Clear Clear [facility] Urine bacteria detection by automated methodOrdered By: Tomas Bradley on 09-09-2021 Bacteria Auto Ql (U) None seen None Seen [facility] Urine colorOrdered By: Danilo Bradley on 09-09-2021 Color (U) Yellow Yellow [facility] Urine glucose measurement by automated test strip (mass/volume)Ordered By: Tomas Bradley on 09-09-2021 Glucose Auto test strip (U) [Mass/Vol] Normal mg/dL Normal [facility] Urine hemoglobin detection b y automated test stripOrdered By: Tomas Bradley on 09-09-2021 Hemoglobin Auto test strip Ql (U) Negative Negative [facility] Urine leukocyte esterase det ection by automated test stripOrdered By: Tomas Bradley on 09-09-2021 Leukocyte esterase Auto test strip Ql (U) Negative Negative [facility] Urine nitrite detection by a utomated test stripOrdered By: Tomas Bradley on 09-09-2021 Nitrite Auto test strip Ql (U) Negative Negative [facility] Urobilinogen Auto test strip (U) [Mass/Vol]Ordered By: Tomas Bradley on 09-09-2021 Urobilinogen (U) [Mass/Vol] Normal mg/dL Normal [facility] pH Auto test strip (U)Ordere d By: Tomas Bradley on 09-09-2021 pH (U) 1.020 [pH] 1.001-1.03 0 [facility] pH (U) 6.0 [pH] 5.0-9.0 [facility] Complete Blood Counton 02-09 Erythrocyte distribution width (RBC) [Ratio] 14.6 % Normal 11.0-15.0 [facility] [employer] Comment on above: Performed By: #### C BC, CMP, LIPD #### [facility] [address] [place], [place] [id number] Hematocrit (Bld) [Volume fraction] 43.5 % Normal 38.5-50.0 [facility] Comment on above: Performed By: #### C BC, CMP, LIPD #### [facility] [address], [place] [id number] Hemoglobin (Bld) [Mass/Vol] 13.9 g/dL Normal 13.0-17.1 [facility] [employer] Comment on above: Performed By: #### C BC, CMP, LIPD #### [facility] [address] [place], [place] [id number] MCH (RBC) [Entitic mass] 32.3 pg Normal 27.0-33.0 [facility] Comment on above: Performed By: #### C BC, CMP, LIPD #### [facility] [address] [place], [place] [id number] MCHC (RBC) [Mass/Vol] 32.0 g/dL Normal 32.0-36.0 [facility] Comment on above: Performed By: #### C BC, CMP, LIPD #### [facility] [address], [place] [id number] MCV (RBC) [Entitic vol] 101 fL High 80-100 [facility] Comment on above: Performed By: #### C BC, CMP, LIPD #### [facility] [address] [place], [place] [id number] Platelet mean volume (Bld) [Entitic vol] 12.50 fL Normal 7.50-12.50 [facility] [employer] Comment on above: Performed By: #### C BC, CMP, LIPD #### [facility] [address] [place], [place] [id number] Platelets (Bld) [#/Vol] 125 10*3/uL Low 140-400 [facility] [employer] Comment on above: Performed By: #### C BC, CMP, LIPD #### [facility] [address] [place], [place] [id number] RBC (Bld) [#/Vol] 4.31 10*6/uL Normal 4.20-5.80 [facility] [employer] Comment on above: Performed By: #### C BC, CMP, LIPD #### [facility] [address] [place], [place] [id number] RDW-SD 54.8 fL High 37.0-50.0 [facility] [employer] Comment on above: Performed By: #### C BC, CMP, LIPD #### [facility] [address], [place] [id number] WBC (Bld) [#/Vol] 7.7 10*3/uL Normal 3.8-11.0 [facility] [place] [employer] Comment on above: Performed By: #### C BC, CMP, LIPD #### [facility] [address] [place], [place] [id number] Comprehensive Metabolic Pane negro 02-09-2021 Albumin [Mass/Vol] 4.0 g/dL Normal 3.6-5.1 [facility] [place] [employer] Comment on above: Performed By: #### C BC, CMP, LIPD #### [facility] [address] [place], [place] [id number] Albumin/Globulin [Mass ratio] 1.4 {ratio} Normal 1.0-2.5 [facility] [employer] Comment on above: Performed By: #### C BC, CMP, LIPD #### [facility] [address], [place] [id number] ALP [Catalytic activity/Vol] 182 U/L High 40-129 [facility] [employer] Comment on above: Performed By: #### C BC, CMP, LIPD #### [facility] [address], [place] [id number] ALT [Catalytic activity/Vol] 26 U/L Normal 9-46 [facility] [employer] Comment on above: Result Comment: 01/13 Female reference range changed. Performed By: #### C BC, CMP, LIPD #### [facility] [address] [place], [place] [id number] Anion gap [Moles/Vol] 19 mmol/L Normal 12-20 [facility] Comment on above: Result Comment: Effe ctive 02/18/2019 reference range changed. Performed By: #### C BC, CMP, LIPD #### [facility] [address] [place], [place] [id number] AST [Catalytic activity/Vol] 58 U/L High 10-40 [facility] Comment on above: Performed By: #### C BC, CMP, LIPD #### [facility] [address] [facility] [place] [id number] Bilirubin [Mass/Vol] 0.71 mg/dL Normal 0.30-1.20 [facility] Comment on above: Performed By: #### C BC, CMP, LIPD #### [facility] [address] [facility] [place] [id number] BUN/CREA 17 Ratio Normal 6-22 [facility] Comment on above: Performed By: #### C BC, CMP, LIPD #### [facility] [address] [facility] [place] [id number] Calcium [Mass/Vol] 9.5 mg/dL Normal 8.6-10.2 [facility] Comment on above: Performed By: #### C BC, CMP, LIPD #### [facility] [address], [place] [id number] Chloride [Moles/Vol] 102 mmol/L Normal 98-107 [facility] Comment on above: Performed By: #### C BC, CMP, LIPD #### [facility] [address] [facility] [place] [id number] CO2 [Moles/Vol] 25 mmol/L Normal 20-31 [facility] Comment on above: Performed By: #### C BC, CMP, LIPD #### [facility] [address] [facility] [place] [id number] Creatinine [Mass/Vol] 1.1 mg/dL Normal 0.7-1.4 [facility] Comment on above: Performed By: #### C BC, CMP, LIPD #### [facility] [address] [facility] [place] [id number] eGFRAA 77 mL/min/1.73m2 Normal >60 [facility] Comment on above: Performed By: #### C BC, CMP, LIPD #### [facility] [address] [facility] [place] [id number] eGFRNAA 64 mL/min/1.73m2 Normal >60 [facility] Comment on above: Performed By: #### C BC, CMP, LIPD #### [facility] [address], [place] [id number] Globulin (S) [Mass/Vol] 2.8 g/dL Normal 1.9-3.7 [facility] [employer] Comment on above: Performed By: #### C BC, CMP, LIPD #### [facility] [address] [place], [place] [id number] Glucose [Mass/Vol] 86 mg/dL Normal 65-99 [facility] [employer] Comment on above: Result Comment: For FASTING Glucose --- ADA reference ranges: Normal 65-99 mg/dl Prediabetes 100-125 Diabetes >/= 126 Performed By: #### C BC, CMP, LIPD #### [facility] [address], [place] [id number] Potassium [Moles/Vol] 4.4 mmol/L Normal 3.5-5.5 [facility] Comment on above: Performed By: #### C BC, CMP, LIPD #### [facility] [address], [place] [id number] Protein [Mass/Vol] 6.8 g/dL Normal 6.1-8.1 [facility] [employer] Comment on above: Performed By: #### C BC, CMP, LIPD #### [facility] [address] [place], [place] [id number] Sodium [Moles/Vol] 142 mmol/L Normal 135-146 [facility] [employer] Comment on above: Performed By: #### C BC, CMP, LIPD #### [facility] [address] [place], [place] [id number] Urea nitrogen [Mass/Vol] 19 mg/dL Normal 7-25 [facility] Comment on above: Performed By: #### C BC, CMP, LIPD #### [facility] [address], [place] [id number] Lipid Panelon 02-09-2021 Cholesterol [Mass/Vol] 129 mg/dL Normal 125-200 No [facility] [employer] Comment on above: Result Comment: Low risk < 200mg/dL Borderline risk 201-239 mg/dl High risk > or equal to 240 Performed By: #### C BC, CMP, LIPD #### [facility] [address], [place] [id number] Cholesterol in HDL [Mass/Vol] 41 mg/dL Normal >40 [facility] [employer] Comment on above: Result Comment: High Cardiovascular Risk HDL <40 mg/dL Low Cardiovascular Risk HDL > or equal to 60 mg/dl Performed By: #### C BC, CMP, LIPD #### [facility] [address] [place], [place] [id number] Cholesterol in LDL [Mass/Vol] 66 mg/dL Normal [facility] [employer] Comment on above: Result Comment: LDL ATP III CLASSIFICATION LDL less than 100 mg/dl Optimal LDL 100-129 mg/dl Near or above optimal LDL 130-159 Borderline high LDL 160-189 High LDL greater than 189 mg/dl Very High Performed By: #### C BC, CMP, LIPD #### [facility] [address] [place], [place] [id number] Cholesterol in VLDL [Mass/Vol] 22 mg/dL Normal [facility] [employer] Comment on above: Performed By: #### C BC, CMP, LIPD #### [facility] [address], [place] [id number] Cholesterol.total/Chol esterol in HDL [Mass ratio] 3 {ratio} Normal [facility] Comment on above: Performed By: #### C BC, CMP, LIPD #### [facility] [address] [place], [place] [id number] Triglyceride [Mass/Vol] 112 mg/dL Normal 30-150 [facility] [employer] Comment on above: Result Comment: TRIG ATPIII CLASSIFICATIONS TRIG less than 150 mg/dl Normal TRIG 150-199 mg/dl Borderline High TRIG 200-500 mg/dl High TRIG greather than 500 mg/dl Very High Performed By: #### C BC, CMP, LIPD #### [facility] [address] [place], [place] [id number] Microalbumin (w/o Creat)on 04-12-2020 mALB 26.9 mg/dL Normal [facility] Comment on above: Result Comment: mALB reference range not established. Performed By: #### m ALB #### [facility] [address] [place], [place] [id number] PSA SCREEN (MEDICARE)on 01-14 TPSA 0.288 ng/mL Normal <4.000 [facility] [employer] Comment on above: Result Comment: PSA Test Method: ECLIA/Lg e 601 Performed By: #### P #### [facility] [address] [place] [id number] XR Shoulder Complete Left*on 02-09-2021 XR Shoulder [...] by LILO CINTRON on 02/09/2021 1436 Normal [facility] [employer] XR Shoulder Complete Right*o n 02-09-2021 XR [...] by LILO CINTRON on 02/09/2021 1428 Normal [facility] Vital Signs Date Time Vital Sign Value Performing Clinician Facility 09-17-2024 13:46-0400 Body height 188 cm Manjinder Galloway MD Work Phone: [facility] 09-17-2024 13:46-0400 Diastolic blood pressure 56 mm[Hg] Manjinder Galloway MD Work Phone: [facility] 09-17-2024 13:46-0400 Heart rate 56 /min Manjinder Galloway MD Work Phone: [facility] 09-17-2024 13:46-0400 Systolic blood pressure 128 mm[Hg] Manjinder Galloway MD Work Phone: [facility] 09-13-2024 10:38-0400 Body temperature 97.39 [degF] Jozef Furlong DO Work Phone: [facility] [employer] 09-13-2024 10:38-0400 Diastolic blood pressure 68 mm[Hg] [facility] 09-13-2024 10:38-0400 Heart rate 55 /min Joz[facility] Furlong [facility] 09-13-2024 10:38-0400 Respiratory rate 18 /min Jozef [place] FFTlong DO [facility] 09-13-2024 10:38-0400 SaO2% (BldA) [Mass fraction] 93 % [facility]long [facility] 09-13-2024 10:38-0400 Systolic blood pressure 138 mm[Hg] Jozef Furlong DO [facility] 08-30-2024 17:01-0400 Body mass index (BMI) [Ratio] 32.77 kg/m2 Jozef Furlong DO [facility] 08-30-2024 17:01-0400 Body temperature 97.2 [degF] Jozef Furlong DO [facility] 08-30-2024 17:01-0400 Body weight 115.76 kg Jozef Furlong DO [facility] 08-30-2024 17:01-0400 Diastolic blood pressure 85 mm[Hg] Jozef Furlong DO Work Phone: [facility] 08-30-2024 17:01-0400 Heart rate 49 /min Jozef Furlong DO Work Phone: [facility] 08-30-2024 17:01-0400 Respiratory rate 18 /min Jozef Furlong DO Work Phone: [facility] 08-30-2024 17:01-0400 SaO2% (BldA) [Mass fraction] 97 % Jozef Furlong DO Work Phone: [facility] 08-30-2024 17:01-0400 Systolic blood pressure 153 mm[Hg] Jozef Furlong DO Work Phone: [facility] 07-26-2024 13:46-0400 Body mass index (BMI) [Ratio] 32.38 kg/m2 Jozef Furlong DO Work Phone: [facility] 07-26-2024 13:46-0400 Body temperature 98.6 [degF] Jozef Furlong DO Work Phone: [facility] 07-26-2024 13:46-0400 Body weight 114.4 kg Jozef Furlong DO Work Phone: [facility] 07-26-2024 13:46-0400 Diastolic blood pressure 61 mm[Hg] Jozef Furlong DO Work Phone: [facility] 07-26-2024 13:46-0400 Heart rate 53 /min Jozef Furlong DO Work Phone: [facility] 07-26-2024 13:46-0400 Respiratory rate 18 /min Jozef Furlong DO Work Phone: [facility] 07-26-2024 13:46-0400 SaO2% (BldA) [Mass fraction] 97 % Jozef Furlong DO Work Phone: [facility] 07-26-2024 13:46-0400 Systolic blood pressure 117 mm[Hg] Jozef Furlong DO Work Phone: [facility] 06-19-2024 10:32-0400 Body temperature 97.59 [degF] Jozef Furlong DO Work Phone: [facility] 06-19-2024 10:32-0400 Diastolic blood pressure 76 mm[Hg] Jozef Furlong DO Work Phone: [facility] 06-19-2024 10:32-0400 Heart rate 96 /min Jozef Furlong DO Work Phone: [facility] 06-19-2024 10:32-0400 Respiratory rate 18 /min Jozef Furlong DO Work Phone: [facility] 06-19-2024 10:32-0400 SaO2% (BldA) [Mass fraction] 97 % Jozef Furlong DO Work Phone: [facility] 06-19-2024 10:32-0400 Systolic blood pressure 129 mm[Hg] Jozef Furlong DO Work Phone: [facility] 05-28-2024 12:13-0400 Body mass index (BMI) [Ratio] 30.88 kg/m2 Jozef Furlong DO Work Phone: [facility] 05-28-2024 12:13-0400 Body temperature 97.81 [degF] Jozef Furlong DO Work Phone: [facility] 05-28-2024 12:13-0400 Body weight 109.09 kg Jozef Furlong DO Work Phone: [facility] 05-28-2024 12:13-0400 Diastolic blood pressure 89 mm[Hg] Jozef Furlong DO Work Phone: [facility] 05-28-2024 12:13-0400 Heart rate 56 /min Jozef Furlong DO Work Phone: [facility] 05-28-2024 12:13-0400 Respiratory rate 18 /min Jozef Furlong DO Work Phone: [facility] 05-28-2024 12:13-0400 SaO2% (BldA) [Mass fraction] 98 % Jozef Furlong DO Work Phone: [facility] 05-28-2024 12:13-0400 Systolic blood pressure 145 mm[Hg] Jozef Furlong DO Work Phone: [facility] 05-10-2024 18:23-0400 Body mass index (BMI) [Ratio] 30.25 kg/m2 Jozef Furlong DO Work Phone: [facility] 05-10-2024 18:23-0400 Body weight 106.87 kg Jozef Furlong DO Work Phone: [facility] 05-10-2024 18:23-0400 Diastolic blood pressure 76 mm[Hg] Jozef Furlong DO Work Phone: [facility] 05-10-2024 18:23-0400 Heart rate 60 /min Jozef Furlong DO Work Phone: [facility] 05-10-2024 18:23-0400 Respiratory rate 16 /min Jozef Furlong DO Work Phone: [facility] 05-10-2024 18:23-0400 SaO2% (BldA) [Mass fraction] 97 % Jozef Furlong DO Work Phone: [facility] 05-10-2024 18:23-0400 Systolic blood pressure 148 mm[Hg] Jozef Furlong DO Work Phone: [facility] 05-10-2024 16:57-0400 Body mass index (BMI) [Ratio] 30.25 kg/m2 Jozef Furlong DO Work Phone: [facility] 05-10-2024 16:57-0400 Body weight 106.87 kg Jozef Furlong DO Work Phone: [facility] 05-10-2024 16:57-0400 Diastolic blood pressure 76 mm[Hg] Jozef Furlong DO Work Phone: [facility] 05-10-2024 16:57-0400 Heart rate 60 /min Jozef Furlong DO Work Phone: [facility] 05-10-2024 16:57-0400 Respiratory rate 16 /min Jozef Furlong DO Work Phone: [facility] 05-10-2024 16:57-0400 SaO2% (BldA) [Mass fraction] 97 % Jozef Furlong DO Work Phone: [facility] 05-10-2024 16:57-0400 Systolic blood pressure 148 mm[Hg] Jozef Furlong DO Work Phone: [facility] 04-12-2024 21:37-0500 Body mass index (BMI) [Ratio] 30.35 kg/m2 Jozef Furlong DO Work Phone: [facility] 04-12-2024 21:37-0500 Body temperature 97.9 [degF] Jozef Furlong DO Work Phone: [facility] 04-12-2024 21:37-0500 Body weight 107.23 kg Jozef Furlong DO Work Phone: [facility] 04-12-2024 21:37-0500 Diastolic blood pressure 76 mm[Hg] Jozef Furlong DO Work Phone: [facility] 04-12-2024 21:37-0500 Heart rate 61 /min Jozef Furlong DO Work Phone: [facility] 04-12-2024 21:37-0500 Respiratory rate 18 /min [facility] 04-12-2024 21:37-0500 SaO2% (BldA) [Mass fraction] 97 % Jozef Furlong DO [facility] 04-12-2024 21:37-0500 Systolic blood pressure 118 mm[Hg] Jozef Furlong DO Work Phone: [facility] 03-26-2024 10:41-0500 Body height 188 cm Orion Etienne MD Work Phone: [facility] 03-26-2024 10:41-0500 Body mass index (BMI) [Ratio] 30.17 kg/m2 Orion Etienne MD Work Phone: [facility] 03-26-2024 10:41-0500 Body weight 106.59 kg Orion Etienne MD Work Phone: [facility] 02-23-2024 10:46-0500 Body mass index (BMI) [Ratio] 30.2 kg/m2 Jozef Furlong DO Work Phone: [facility] 02-23-2024 10:46-0500 Body temperature 98.71 [degF] Jozef Furlong DO [facility] 02-23-2024 10:46-0500 Body weight 106.69 kg Jozef Furlong DO [facility] 02-23-2024 10:46-0500 Diastolic blood pressure 68 mm[Hg] Jozef Furlong DO [facility] 02-23-2024 10:46-0500 Heart rate 56 /min Jozef Furlong DO [facility] 02-23-2024 10:46-0500 Respiratory rate 16 /min Jozef Furlong DO Work Phone: [facility] 02-23-2024 10:46-0500 SaO2% (BldA) [Mass fraction] 9 % Jozef Furlong DO Work Phone: [facility] 02-23-2024 10:46-0500 Systolic blood pressure 138 mm[Hg] Jozef Furlong DO Work Phone: [facility] 02-02-2024 14:14-0500 Diastolic blood pressure 77 mm[Hg] Jozef Furlong DO Work Phone: [facility] 02-02-2024 14:14-0500 Systolic blood pressure 131 mm[Hg] Jozef Furlong DO Work Phone: [facility] 01-03-2024 16:55-0500 Body mass index (BMI) [Ratio] 29.15 kg/m2 Jozef Furlong DO Work Phone: [facility] 01-03-2024 16:55-0500 Body temperature 98.1 [degF] Jozef Furlong DO Work Phone: [facility] 01-03-2024 16:55-0500 Body weight 102.97 kg Jozef Furlong DO Work Phone: [facility] 01-03-2024 16:55-0500 Diastolic blood pressure 64 mm[Hg] Jozef Furlong DO Work Phone: [facility] 01-03-2024 16:55-0500 Heart rate 66 /min Jozef Furlong DO Work Phone: [facility] 01-03-2024 16:55-0500 Systolic blood pressure 108 mm[Hg] Jozef Furlong DO Work Phone: [facility] 11-28-2023 14:01-0400 Body mass index (BMI) [Ratio] 25.04 kg/m2 Jozef Furlong DO Work Phone: [facility] 11-28-2023 14:01-0400 Body temperature 98.2 [degF] Jozef Reynalong DO [facility] 11-28-2023 14:01-0400 Body weight 88.45 kg Jozef Furlong DO Work [facility] 11-28-2023 14:01-0400 Diastolic blood pressure 66 mm[Hg] Jozef Furlong DO Work Phone: [facility] 11-28-2023 14:01-0400 Heart rate 68 /min Jozef Reynalong DO [facility] 11-28-2023 14:01-0400 Respiratory rate 18 /min Jozef Maribelllong DO Work Phone: [facility] 11-28-2023 14:01-0400 SaO2% (BldA) [Mass fraction] 95 % Jozef Reynalong DO Work Phone: [facility] 11-28-2023 14:01-0400 Systolic blood pressure 118 mm[Hg] Jozef Reynalong DO Work Phone: [facility] 11-24-2023 07:21-0400 Body temperature 97.2 [degF] Orion Etienne MD Work Phone: [facility] 11-24-2023 07:21-0400 Diastolic blood pressure 72 mm[Hg] Orion Etienne MD Work Phone: [facility] 11-24-2023 07:21-0400 Heart rate 56 /min Orion Etienne MD Work Phone: [facility] 11-24-2023 07:21-0400 Respiratory rate 12 /min Orion Etienne MD Work Phone: [facility] 11-24-2023 07:21-0400 SaO2% (BldA) [Mass fraction] 95 % Orion Etienne MD Work Phone: [facility] 11-24-2023 07:21-0400 Systolic blood pressure 156 mm[Hg] Orion Etienne MD Work Phone: [facility] 11-22-2023 11:06-0400 Body height 188 cm Orion Etienne MD Work Phone: [facility] 11-22-2023 11:06-0400 Body mass index (BMI) [Ratio] 25.04 kg/m2 Orion Etienne MD Work Phone: [facility] 11-22-2023 11:06-0400 Body weight 88.45 kg Orion Etienne MD Work Phone: [facility] 11-20-2023 22:40-0400 Diastolic blood pressure 73 mm[Hg] Jozef Furlong DO Work Phone: [facility] 11-20-2023 22:40-0400 Heart rate 60 /min [facility] 11-20-2023 22:40-0400 Systolic blood pressure 128 mm[Hg] Jozef Furlong DO Work Phone: [facility] 11-19-2023 22:11-0400 Diastolic blood pressure 78 mm[Hg] Jozef Furlong DO Work Phone: [facility] 11-19-2023 22:11-0400 Heart rate 66 /min Jozef Furlong DO Work Phone: [facility] 11-19-2023 22:11-0400 Systolic blood pressure 152 mm[Hg] Jozef Furlong DO [facility] 11-07-2023 16:09-0400 Body height 182.9 cm Manjinder Galloway MD Work Phone: [facility] 11-07-2023 16:09-0400 Diastolic blood pressure 68 mm[Hg] Manjinder Galloway MD Work Phone: [facility] 11-07-2023 16:09-0400 Heart rate 58 /min Manjinder Galloway MD Work Phone: [facility] 11-07-2023 16:09-0400 Systolic blood pressure 138 mm[Hg] Manjinder Galloway MD Work Phone: [facility] 10-31-2023 17:18-0400 Body height 188 cm Jozef Furlong DO Work Phone: [facility] 10-31-2023 17:18-0400 Body mass index (BMI) [Ratio] 25.1 kg/m2 Jozef Furlong DO Work Phone: [facility] 10-31-2023 17:18-0400 Body temperature 96.6 [degF] Jozef Furlong DO Work Phone: [facility] 10-31-2023 17:18-0400 Body weight 88.68 kg Jozef Furlong DO Work Phone: [facility] 10-31-2023 17:18-0400 Diastolic blood pressure 68 mm[Hg] Jozef Furlong DO Work Phone: [facility] 10-31-2023 17:18-0400 Heart rate 68 /min Jozef Furlong DO Work Phone: [facility] 10-31-2023 17:18-0400 Respiratory rate 18 /min Jozef Furlong DO Work Phone: [facility] 10-31-2023 17:18-0400 Systolic blood pressure 112 mm[Hg] Jozef Furlong DO Work Phone: [facility] 10-11-2023 11:28-0400 Body height 180.3 cm Zelda Mendez NP Work Phone: [facility] 10-11-2023 11:28-0400 Body temperature 97.11 [degF] Zelad Luby [employer] ORDER CLERK Work Phone: [facility] 10-11-2023 11:28-0400 Diastolic blood pressure 64 mm[Hg] Zelda Mendez [employer] ORDER CLERK Work Phone: [facility] 10-11-2023 11:28-0400 Heart rate 53 /min Zelda Mendez [employer] ORDER CLERK Work Phone: [facility] 10-11-2023 11:28-0400 SaO2% (BldA) [Mass fraction] 98 % Zelda Mendez [employer] ORDER CLERK Work Phone: [facility] 10-11-2023 11:28-0400 Systolic blood pressure 102 mm[Hg] Zelda Mendez [employer] ORDER CLERK Work Phone: [facility] 10-11-2023 11:15-0400 Body height 180.3 cm Raheem Montielrylee DO Work Phone: [facility] 10-11-2023 11:15-0400 Body temperature 97.11 [degF] Raheem Wisammilyan DO Work Phone: [facility] 10-11-2023 11:15-0400 Diastolic blood pressure 64 mm[Hg] Raheem Montielan DO Work Phone: [facility] 10-11-2023 11:15-0400 Heart rate 53 /min Raheem Wisammatthias DO Work Phone: [facility] 10-11-2023 11:15-0400 SaO2% (BldA) [Mass fraction] 98 % Raheem Wisammilyan DO Work Phone: [facility] 10-11-2023 11:15-0400 Systolic blood pressure 102 mm[Hg] Raheem Wisammilyan DO Work Phone: [facility] 05-02-2023 11:03-0400 Diastolic blood pressure 63 mm[Hg] DO Damian Ambrosio Work Phone: [facility] 05-02-2023 11:03-0400 Heart rate 55 /min DO Damian Ambrosio Work Phone: [facility] 05-02-2023 11:03-0400 Respiratory rate 16 /min DO Damian Ambrosio Work Phone: [facility] 05-02-2023 11:03-0400 SaO2% (BldA) [Mass fraction] 99 % DO Damian Ambrosio Work Phone: [facility] 05-02-2023 11:03-0400 Systolic blood pressure 120 mm[Hg] DO Damian Ambrosio Work Phone: [facility] 05-02-2023 07:56-0400 Body temperature 97.4 [degF] DO Damian Ambrosio Work Phone: [facility] 05-02-2023 05:11-0400 Body weight 93.7 kg DO Damian Ambrosio Work Phone: 5(401)810-167397 [place] [address] 04-28-2023 13:19-0400 Body height 187.96 cm DO Damian Ambrosio Work Phone: [facility] 04-27-2023 18:47-0400 Body temperature 97.8 [degF] DO Damian Ambrosio Work Phone: [facility] 04-27-2023 18:47-0400 Diastolic blood pressure 54 mm[Hg] DO Damian Ambrosio Work Phone: [facility] 04-27-2023 18:47-0400 Heart rate 68 /min DO Damian Ambrosio Work Phone: [facility] 04-27-2023 18:47-0400 Respiratory rate 18 /min DO Damian Ambrosio Work Phone: [facility] 04-27-2023 18:47-0400 SaO2% (BldA) [Mass fraction] 96 % DO Damian Ambrosio Work Phone: [facility] 04-27-2023 18:47-0400 Systolic blood pressure 127 mm[Hg] DO Damian Ambrosio Work Phone: [facility] 04-27-2023 13:12-0400 Body height 189.23 cm DO Damian Ambrosio Work Phone: [facility] 04-27-2023 13:12-0400 Body weight 90.71 kg DO Damian Ambrosio Work Phone: [facility] 03-24-2023 15:05-0500 Body temperature 98.2 [degF] DO Damian Ambrosio Work Phone: [facility] 03-24-2023 15:05-0500 Diastolic blood pressure 80 mm[Hg] DO Damian Ambrosio Work Phone: [facility] 03-24-2023 15:05-0500 Respiratory rate 18 /min DO Damian Ambrosio Work Phone: [facility] 03-24-2023 15:05-0500 SaO2% (BldA) [Mass fraction] 98 % DO Damian Ambrosio Work Phone: [facility] 03-24-2023 15:05-0500 Systolic blood pressure 148 mm[Hg] DO Damian Ambrosio Work Phone: [facility] 03-14-2023 13:00-0500 Body height 182.9 cm Michelle Gonzales MD Work Phone: [facility] 03-14-2023 13:00-0500 Body mass index (BMI) [Ratio] 26.31 kg/m2 Michelle Gonzales MD Work Phone: [facility] 03-14-2023 13:00-0500 Body weight 88 kg Michelle Gonzales MD Work Phone: [facility] 03-14-2023 13:00-0500 Diastolic blood pressure 70 mm[Hg] Michelle Gonzales MD Work Phone: [facility] 03-14-2023 13:00-0500 Heart rate 67 /min Michelle Gonzales MD Work Phone: [facility] 03-14-2023 13:00-0500 SaO2% (BldA) [Mass fraction] 99 % Michelle Gonzales MD Work Phone: [facility] 03-14-2023 13:00-0500 Systolic blood pressure 130 mm[Hg] Michelle Gonzales MD Work Phone: [facility] 03-08-2023 11:16-0500 Body temperature 97.6 [degF] DO Nicol Biedenbach Work Phone: [facility] 03-08-2023 11:16-0500 Diastolic blood pressure 71 mm[Hg] DO Nicol Biedenbach Work Phone: [facility] 03-08-2023 11:16-0500 Heart rate 61 /min DO Nicol Biedenbach Work Phone: [facility] 03-08-2023 11:16-0500 Respiratory rate 18 /min DO Nicol Biedenbach Work Phone: [facility] 03-08-2023 11:16-0500 SaO2% (BldA) [Mass fraction] 98 % DO Nicol Biedenbach Work Phone: [facility] 03-08-2023 11:16-0500 Systolic blood pressure 126 mm[Hg] DO Nicol Biedenbach Work Phone: [facility] 03-07-2023 06:04-0500 Body weight 100.8 kg DO Nicol Biedenbach Work Phone: [facility] 03-02-2023 16:15-0500 Body height 187.96 cm DO Nicol Biedenbach Work Phone: [facility] 02-28-2023 18:21-0500 Diastolic blood pressure 82 mm[Hg] PHYSICIAN NO [facility] 02-28-2023 18:21-0500 Heart rate 83 /min PHYSICIAN NO [facility] 02-28-2023 18:21-0500 Respiratory rate 20 /min PHYSICIAN NO [facility] 02-28-2023 18:21-0500 SaO2% (BldA) [Mass fraction] 92 % PHYSICIAN NO [facility] 02-28-2023 18:21-0500 Systolic blood pressure 195 mm[Hg] PHYSICIAN NO [facility] 02-28-2023 14:28-0500 Body height 187.96 cm PHYSICIAN NO [facility] 02-28-2023 14:28-0500 Body temperature 97.5 [degF] PHYSICIAN NO [facility] 02-28-2023 14:28-0500 Body weight 90.71 kg PHYSICIAN NO [facility] 01-25-2023 09:15-0500 Diastolic blood pressure 82 mm[Hg] Emiliana [address] [place] [address] 01-25-2023 09:15-0500 Heart rate 56 /min Emiliana [address] [place] [address] 01-25-2023 09:15-0500 Systolic blood pressure 126 mm[Hg] Emiliana [address] [place] [address] 01-17-2023 13:05-0500 Diastolic blood pressure 60 mm[Hg] Manjinder Galloway MD Work Phone: [facility] 01-17-2023 13:05-0500 Heart rate 64 /min Manjinder Galloway MD Work Phone: [facility] 01-17-2023 13:05-0500 Systolic blood pressure 100 mm[Hg] Manjinder Galloway MD Work Phone: [facility] 01-03-2023 10:19-0500 Body temperature 97 [degF] DO Damian Ambrosio Work Phone: [facility] 01-03-2023 10:19-0500 Body weight 94.34 kg DO Damian Ambrosio Work Phone: [facility] 01-03-2023 10:19-0500 Diastolic blood pressure 67 mm[Hg] DO Damian Ambrosio Work Phone: [facility] 01-03-2023 10:19-0500 Heart rate 70 /min DO Damian Ambrosio Work Phone: [facility] 01-03-2023 10:19-0500 Respiratory rate 16 /min DO Damian Ambrosio Work Phone: [facility] 01-03-2023 10:19-0500 SaO2% (BldA) [Mass fraction] 99 % DO Damian Ambrosio Work Phone: [facility] 01-03-2023 10:19-0500 Systolic blood pressure 108 mm[Hg] DO Damian Ambrosio Work Phone: [facility] 01-03-2023 10:15-0500 Body height 187.96 cm DO Damian Ambrosio Work Phone: [facility] 12-23-2022 08:00-0500 Body temperature 97.6 [degF] DO Damian Ambrosio Work Phone: [facility] 12-23-2022 08:00-0500 Diastolic blood pressure 82 mm[Hg] DO Damian Ambrosio Work Phone: [facility] 12-23-2022 08:00-0500 Heart rate 79 /min DO Damian Ambrosio Work Phone: [facility] 12-23-2022 08:00-0500 Respiratory rate 18 /min DO Damian Ambrosio Work Phone: [facility] 12-23-2022 08:00-0500 SaO2% (BldA) [Mass fraction] 96 % DO Damian Ambrosio Work Phone: [facility] 12-23-2022 08:00-0500 Systolic blood pressure 149 mm[Hg] DO Damian Ambrosio Work Phone: [facility] 12-23-2022 04:58-0500 Body weight 90.2 kg DO Damian Ambrosio Work Phone: [facility] 12-20-2022 14:09-0500 Body height 182.88 cm DO Damian Ambrosio Work Phone: [facility] 12-19-2022 21:40-0500 Diastolic blood pressure 82 mm[Hg] DO Damian Ambrosio Work Phone: [facility] 12-19-2022 21:40-0500 Heart rate 82 /min DO Damian Ambrosio Work Phone: [facility] 12-19-2022 21:40-0500 Respiratory rate 19 /min DO Damian Ambrosio Work Phone: [facility] 12-19-2022 21:40-0500 SaO2% (BldA) [Mass fraction] 98 % DO Damian Ambrosio Work Phone: [facility] 12-19-2022 21:40-0500 Systolic blood pressure 133 mm[Hg] DO Damian Ambrosio Work Phone: [facility] 12-19-2022 14:11-0500 Body temperature 98.4 [degF] DO Damian Ambrosio Work Phone: [facility] 12-19-2022 13:35-0500 Body height 182.88 cm DO Damian Ambrosio Work Phone: [facility] 12-19-2022 13:35-0500 Body weight 91.2 kg DO Damian Ambrosio Work Phone: [facility] 11-22-2022 12:00-0400 Body temperature 98 [degF] DO Damian Ambrosio Work Phone: [facility] 11-22-2022 12:00-0400 Diastolic blood pressure 74 mm[Hg] DO Damian Ambrosio Work Phone: [facility] 11-22-2022 12:00-0400 Heart rate 60 /min DO Damian Ambrosio Work Phone: [facility] 11-22-2022 12:00-0400 Respiratory rate 16 /min DO Damian Ambrosio Work Phone: 2(103)546-979547 [place] [address] 11-22-2022 12:00-0400 SaO2% (BldA) [Mass fraction] 95 % DO Damian Ambrosio Work Phone: 0(235)650-214097 [place] [address] 11-22-2022 12:00-0400 Systolic blood pressure 147 mm[Hg] DO Damian Ambrosio Work Phone: 2(539)511-550197 [place] [address] 11-22-2022 07:22-0400 Body weight 103.5 kg DO Damian Ambrosio Work Phone: 6(586)515-575755 [address] 11-21-2022 16:38-0400 Body height 182.88 cm DO Damian Ambrosio Work Phone: 1(347)810-578747 [place] [address] 11-20-2022 11:00-0400 Diastolic blood pressure 80 mm[Hg] DO Damian Ambrosio Work Phone: 9(258)224-068897 [place] [address] 11-20-2022 11:00-0400 Heart rate 67 /min DO Damian Ambrosio Work Phone: 8(779)471-457597 [place] [address] 11-20-2022 11:00-0400 Respiratory rate 20 /min DO Damian Ambrosio Work Phone: 3(325)411-981497 [place] [address] 11-20-2022 11:00-0400 SaO2% (BldA) [Mass fraction] 98 % DO Damian Ambrosio Work Phone: 7(871)965-583797 [place] [address] 11-20-2022 11:00-0400 Systolic blood pressure 138 mm[Hg] DO Damian Ambrosio Work Phone: 6(528)203-511597 [place] [address] 11-20-2022 10:03-0400 Body temperature 97.8 [degF] DO Damian Ambrosio Work Phone: 0(503)246-822697 [place] [address] 11-20-2022 05:20-0400 Body height 187.96 cm DO Damian Ambrosio Work Phone: 5(281)574-089297 [place] [address] 11-20-2022 05:20-0400 Body weight 86 kg DO Damian Ambrosio Work Phone: 5(747)235-729655 [address] 11-03-2022 15:05-0400 Body temperature 98.2 [degF] DO Damian Ambrosio Work Phone: [facility] 11-03-2022 15:05-0400 Diastolic blood pressure 71 mm[Hg] DO Damian Ambrosio Work Phone: 6(750)500-769297 [place] [address] 11-03-2022 15:05-0400 Heart rate 58 /min DO Damian Ambrosio Work Phone: 7(911)447-592597 [place] [address] 11-03-2022 15:05-0400 Respiratory rate 20 /min DO Damian Ambrosio Work Phone: 4(632)834-624897 [place] [address] 11-03-2022 15:05-0400 SaO2% (BldA) [Mass fraction] 96 % DO Damian Ambrosio Work Phone: 4(733)242-321197 [place] [address] 11-03-2022 15:05-0400 Systolic blood pressure 147 mm[Hg] DO Damian Ambrosio Work Phone: 1(625)786-157697 [place] [address] 11-03-2022 05:57-0400 Body weight 94.8 kg DO Damian Ambrosio Work Phone: 2(840)889-491297 [place] [address] 11-02-2022 10:30-0400 Body height 187.96 cm DO Damian Ambrosio Work Phone: [facility] 11-01-2022 22:00-0400 Body temperature 98.1 [degF] DO Damian Ambrosio Work Phone: [facility] 11-01-2022 22:00-0400 Diastolic blood pressure 70 mm[Hg] DO Damian Ambrosio Work Phone: 5(018)009-407097 [place] [address] 11-01-2022 22:00-0400 Heart rate 59 /min DO Damian Ambrosio Work Phone: [facility] 11-01-2022 22:00-0400 Respiratory rate 18 /min DO Damian Joelmilyrylee Work Phone: [facility] 11-01-2022 22:00-0400 SaO2% (BldA) [Mass fraction] 95 % DO Damian Ambrosio Work Phone: 3(545)937-640097 [place] [address] 11-01-2022 22:00-0400 Systolic blood pressure 146 mm[Hg] DO Damian Ambrosio Work Phone: 0(495)664-179997 [place] [address] 11-01-2022 16:33-0400 Body height 187.96 cm DO Damian Ambrosio Work Phone: 5(036)946-279697 [place] [address] 11-01-2022 16:33-0400 Body weight 90.71 kg DO Damian Ambrosio Work Phone: 2(201)631-121155 [address] 10-30-2022 07:58-0400 Body temperature 97.2 [degF] DO Damian Ambrosio Work Phone: 5(074)564-446655 [address] 10-30-2022 07:58-0400 Diastolic blood pressure 88 mm[Hg] DO Damian Ambrosio Work Phone: 0(927)854-493897 [place] [address] 10-30-2022 07:58-0400 Heart rate 65 /min DO Damian Ambrosio Work Phone: 4(681)536-051397 [place] [address] 10-30-2022 07:58-0400 Respiratory rate 16 /min DO Damian Ambrosio Work Phone: 0(799)853-873897 [place] [address] 10-30-2022 07:58-0400 SaO2% (BldA) [Mass fraction] 96 % DO Damian Ambrosio Work Phone: [facility] 10-30-2022 07:58-0400 Systolic blood pressure 160 mm[Hg] DO Damian Ambrosio Work Phone: 2(520)980-067697 [place] [address] 10-30-2022 06:12-0400 Body weight 93 kg DO Damian Ambrosio Work Phone: 2(265)141-948097 [place] [address] 10-27-2022 14:51-0400 Body height 187.96 cm DO Damian Ambrosio Work Phone: 1(879)627-960997 [place] [address] 10-27-2022 01:00-0400 Body temperature 98.7 [degF] DO Damian Ambrosio Work Phone: [facility] 10-27-2022 01:00-0400 Body weight 93.3 kg DO Damian Ambrosio Work Phone: [facility] 10-27-2022 01:00-0400 Diastolic blood pressure 77 mm[Hg] DO Damian Ambrosio Work Phone: [facility] 10-27-2022 01:00-0400 Heart rate 71 /min DO Damian Ambrosio Work Phone: [phone] [place] [address] 10-27-2022 01:00-0400 SaO2% (BldA) [Mass fraction] 97 % DO Damian Ambrosio Work Phone: [facility] 10-27-2022 01:00-0400 Systolic blood pressure 147 mm[Hg] DO Damian Ambrosio Work Phone: [facility] 10-26-2022 19:10-0400 Diastolic blood pressure 65 mm[Hg] DO Damian Ambrosio Work Phone: [facility] 10-26-2022 19:10-0400 Heart rate 72 /min DO Damian Ambrosio Work Phone: [facility] 10-26-2022 19:10-0400 Respiratory rate 16 /min DO Damian Ambrosio Work Phone: [facility] 10-26-2022 19:10-0400 SaO2% (BldA) [Mass fraction] 98 % DO Damian Ambrosio Work Phone: [facility] 10-26-2022 19:10-0400 Systolic blood pressure 148 mm[Hg] DO Damian Ambrosio Work Phone: [facility] 10-26-2022 12:55-0400 Body height 187.96 cm DO Damian Ambrosio Work Phone: [facility] 10-26-2022 12:55-0400 Body weight 90.71 kg DO Damian Ambrosio Work Phone: [facility] 09-10-2021 14:08-0400 Body height 182.88 cm DO Damian Ambrosio Work Phone: [facility] 09-10-2021 11:02-0400 Body temperature 97.6 [degF] DO Damian Ambrosio Work Phone: [facility] 09-10-2021 11:02-0400 Diastolic blood pressure 75 mm[Hg] DO Damian Ambrosio Work Phone: [facility] 09-10-2021 11:02-0400 Heart rate 54 /min DO Damian Ambrosio Work Phone: [facility] 09-10-2021 11:02-0400 Respiratory rate 20 /min DO Damian Ambrosio Work Phone: [facility] 09-10-2021 11:02-0400 SaO2% (BldA) [Mass fraction] 98 % DO Damian Ambrosio Work Phone: [facility] 09-10-2021 11:02-0400 Systolic blood pressure 164 mm[Hg] DO Damian Ambrosio Work Phone: [facility] 09-10-2021 03:02-0400 Body weight 88.4 kg DO Damian Ambrosio Work Phone: [facility] 07-14-2021 13:00-0400 Body height 182.88 cm Alejandra Bar Other [employer] Other 07-14-2021 13:00-0400 Body mass index (BMI) [Ratio] 27.12 kg/m2 Alejandra Bar Other [employer] [facility] [employer] Other 07-14-2021 13:00-0400 Body temperature 97 [degF] Alejandra Bar Other [employer] Other 07-14-2021 13:00-0400 Body weight 90.72 kg Alejandra Bar Other [employer] Other 07-14-2021 13:00-0400 Diastolic blood pressure 78 mm[Hg] Alejandra Bar Other [employer] Other 07-14-2021 13:00-0400 SaO2% (BldA) [Mass fraction] 98 % Alejandra Bar Other [employer] Other 07-14-2021 13:00-0400 Systolic blood pressure 104 mm[Hg] Alejandra Bar Other [employer] Other Encounters Encounter Date Encounter Type Care Provider Facility Start: 10-15-2024 End: 10-15-2024 Telephone encounter Dafne Chew [facility] Center Comment on above: Fall Start: 09-17-2024 End: 09-17-2024 Office outpatient visit 25 minutes Manjinder Galloway MD Work Phone: [facility] Comment on above: Two-vessel coronary artery disease (Primary Dx); Mixed hyperlipidemia; Ischemic cardiomyopathy; Primary hypertension; Carotid stenosis, right; Shortness of breath; Bilateral carotid artery stenosis; Right sided weakness; Edema of right lower extremity Start: 09-13-2024 End: 09-14-2024 ambulatory Jozef Franklin [employer] Work Phone: [facility] Comment on above: Benign hypertension with stage 3a chronic kidney disease ([facility]) (Primary Dx); Insomnia, unspecified type; Wound of right foot; 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, with anxiety (CMS-HCC); Chronic obstructive pulmonary disease, unspecified COPD type (CMS-HCC) Start: 08-30-2024 End: 08-30-2024 ambulatory Jozef Franklin DO Work Phone: [facility] Comment on above: 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, with anxiety ([facility]) (Primary Dx); Hypertension, essential; Peripheral vascular disease, unspecified; Wound of right foot Start: 08-06-2024 End: 08-06-2024 ambulatory [facility] Start: 08-06-2024 End: 08-06-2024 Office outpatient visit 15 minutes Orion Etienne MD Work Phone: [facility] Comment on above: Malignant neoplasm o f parotid gland (Multi) (Primary Dx) Start: 07-26-2024 End: 08-04-2024 ambulatory Jozef Franklin DO Work Phone: [facility] Comment on above: Wound of right foot (Primary Dx); Primary osteoarthritis of both knees; 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, with anxiety ([facility]); Chronic obstructive pulmonary disease, unspecified COPD type ([facility]); Atherosclerosis of [place] coronary artery of [place] heart without angina pectoris Start: 06-19-2024 End: 07-08-2024 ambulatory Jozef Franklin DO Work Phone: [facility] Comment on above: Multiple open wounds of right lower leg (Primary Dx); Wound of right foot; 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, with anxiety ([facility]); Hypertension, essential Start: 06-11-2024 End: 06-11-2024 ambulatory [facility] Start: 06-11-2024 End: 06-11-2024 Office outpatient visit 15 minutes Orion Etienne MD Work Phone: [facility] Comment on above: Malignant neoplasm o f [...] 15 minutes Orion Etienne MD Work Phone: [facility] Comment on above: 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) Start: 03-26-2024 End: 03-26-2024 ambulatory [facility] Start: 02-23-2024 End: 02-28-2024 ambulatory Jozef [...] 01-03-2024 ambulatory Jozef Franklin DO Work Phone: [facility] Comment on above: Parotid mass (Primar y Dx); 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, with anxiety ([facility]); Gastroesophageal reflux disease without esophagitis; Anxiety; Anemia, unspecified type; Adult failure to thrive; Hypertension, essential Start: 12-26-2023 End: 12-26-2023 ambulatory [facility] Start: 12-26-2023 End: 12-26-2023 Postop follow up visit related to original px Orion Etienne MD Work Phone: [facility] Comment on above: 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) Start: 11-28-2023 End: 11-28-2023 ambulatory Jozef Franklin DO Work Phone: [facility] Comment on above: Parotid mass (Primar y Dx); 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, with anxiety ([facility]); Primary osteoarthritis of both knees Start: 11-23-2023 [...] Department Unsolicited Start: 11-22-2023 End: 11-24-2023 ambulatory [facility] Start: 11-22-2023 End: 11-24-2023 Subsequent hospital visit by physician Orion Etienne MD Work Phone: [facility] 5 Comment on above: Malignant neoplasm o [...] Department Unsolicited Start: 11-15-2023 End: 11-15-2023 ambulatory [facility] Start: 11-07-2023 End: 11-08-2023 Encounter for preprocedural cardiovascular examination [facility] Ambulatory Start: 11-07-2023 End: 11-07-2023 Office outpatient visit 25 minutes Manjinder Galloway MD Work Phone: [facility] Comment on above: Two-vessel coronary artery disease (Primary Dx); Mixed hyperlipidemia; Ischemic cardiomyopathy; Carotid stenosis, right; Pre-operative cardiovascular examination; Shortness of breath; Former smoker Start: 11-07-2023 End: 11-07-2023 Patient encounter status Manjinder Galloway MD Work Phone: [facility] Work Phone: Start: 11-07-2023 End: 11-19-2023 [...] (CMS-HCC); Adult failure to thrive; Atherosclerosis of [place] coronary artery of [place] heart without angina pectoris; Polyarthritis; Hypertension, essential; [...] 25 minutes Orion Etienne MD Work Phone: [facility] Comment on above: Malignant neoplasm o f parotid gland (Multi) (Primary Dx) Start: 10-24-2023 End: 10-24-2023 ambulatory [facility] Start: 10-11-2023 End: 10-11-2023 Bamboo flowsheet Raheem Ambrosio DO Work Phone: [facility] 230 Start: 10-11-2023 End: 10-11-2023 Bamboo flowsheet Raheem Ambrosio DO Work Phone: [facility] 230 Start: 10-11-2023 End: 10-12-2023 Orders Only Raheem Ambrosio DO Work Phone: [facility] External Department Unsolicited Start: 10-11-2023 End: 10-11-2023 Assay of hemosiderin, quant Zelda Mendez NP Work Phone: [facility] Healthcare Work Phone: Start: 10-11-2023 End: 10-11-2023 Patient encounter procedure Zelda Mendez NP Work Phone: [facility] 230 Comment on above: Routine general medi efraín examination at health care facility (Primary Dx); 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); Chronic obstructive pulmonary disease, unspecified COPD type (CMS/HCC); Essential hypertension (CMS/HCC); Impaired mobility and ADLs; Mixed hyperlipidemia (CMS/HCC) Start: 10-11-2023 End: 10-11-2023 Office outpatient visit 40 minutes Raheem Ambrosio DO Work Phone: [facility] 230 Comment on above: Adult failure [...] site; Prostate cancer screening; Peripheral vascular disease ([facility]/HCC) Start: 10-11-2023 End: 10-11-2023 ambulatory ZELDA MENDEZ Not Available Start: 06-01-2023 End: 06-01-2023 ambulatory RAHEEM AMBROSIO Not Available Start: 05-01-2023 End: 05-02-2023 Encounter for other general examination DO TyreeRama Hermilo Ambrosio Work Phone: [facility] Start: 05-01-2023 End: 05-02-2023 Evaluation and management of inpatient DO TyreeRama Hermilo Ambrosio Work Phone: [facility] Work Phone: Start: 04-28-2023 Non-patient / Non-visit DO Damian Hermiol Daily Work Phone: [facility] Work Phone: Start: 04-28-2023 Patient encounter status DO TyreeRama Joelmatthias Work Phone: [facility] Start: 04-27-2023 Evaluation and manag ement of inpatient DO TyreeRama Akhtar Daily Work Phone: [facility] Work Phone: Start: 04-27-2023 Non-patient / Non-visit DO Damian Joelmilyrylee Work Phone: [facility] Work Phone: Start: 04-27-2023 observation encounter DO Damian Ambrosio Work Phone: [facility] Work Phone: Start: 04-25-2023 End: 04-25-2023 ambulatory NICOL ALMANZA Not Available Start: 03-24-2023 End: 03-24-2023 ambulatory DO Damian Joelmatthias Work Phone: [facility] Work Phone: Start: 03-24-2023 End: 03-24-2023 Patient encounter procedure DO Damian Joelmilyrylee Work Phone: [facility] Work Phone: Start: 03-24-2023 Registered Recurring DO Damian Ambrosio Work Phone: [facility] Acute Work Phone: Start: 03-24-2023 ambulatory Franck Songi lity:[facility] Start: 03-14-2023 End: 03-14-2023 Office outpatient new 45 minutes Michelle Gonzales MD Work Phone: [facility] 2 Comment on above: Carotid stenosis, ri ght (Primary Dx) Start: 03-13-2023 End: 03-13-2023 ambulatory DOMINICK NUÑEZ Not Available Start: 02-28-2023 End: 03-08-2023 Evaluation and management of inpatient PHYSICIAN NO [facility] Work Phone: Start: 02-28-2023 Non-patient / Non-visit DO Kavitha Almanza Work Phone: [facility] Work Phone: Start: 02-28-2023 End: 02-28-2023 ambulatory RAHEEM AMBROSIO Not Available Start: 02-20-2023 Patient encounter status Esteabn e Daily DO Work Phone: [facility] Start: 02-16-2023 End: 02-16-2023 Subsequent hospital visit by physician Connie Youngblood 3 [facility] Comment on above: Carotid stenosis, ri ght Start: 01-25-2023 End: 01-25-2023 Subsequent hospital visit by physician Emiliana Aceves Stress Room 1 [facility] Start: 01-25-2023 End: 01-25-2023 ambulatory [facility] Start: 01-25-2023 End: 01-25-2023 Encounter for preprocedural cardiovascular examination [facility] Start: 01-17-2023 Encounter for preprocedural cardiovascular examination [facility] Start: 01-17-2023 End: 01-17-2023 Office outpatient visit 25 minutes Manjinder Galloway MD Work Phone: [facility] Comment on above: Syncope and collapse (Primary Dx); Two-vessel coronary artery disease; Ischemic cardiomyopathy; Carotid stenosis, right; Pre-operative cardiovascular examination; Shortness of breath; Mixed hyperlipidemia Start: 01-17-2023 End: 09-17-2024 Patient encounter status Manjinder Galloway MD Work Phone: [facility] Work Phone: Start: 01-10-2023 ambulatory [facility] Start: 01-10-2023 ambulatory [facility] Start: 01-03-2023 End: 01-03-2023 ambulatory DO Damian Ambrosio Work Phone: [facility] Work Phone: Start: 01-03-2023 End: 01-03-2023 Registered Recurring DO Damian Ambrosio Work Phone: [facility] Work Phone: Start: 01-03-2023 Registered Recurring PHYSICIAN BRE ARIZA [facility] Work Phone: Start: 12-19-2022 End: 12-23-2022 Evaluation and management of inpatient DO Damian Hermilo Ambrosio Work Phone: [facility] Work Phone: Start: 12-09-2022 End: 12-09-2022 ambulatory Nicol Almanza Facility:[facility] Start: 12-09-2022 End: 12-09-2022 Departed Referred DO TyreeRama Ambrosio Work Phone: [facility] Work Phone: Start: 11-20-2022 End: 11-22-2022 Evaluation and management of inpatient DO TyreeRama Ambrosio Work Phone: [facility] Work Phone: Start: 11-03-2022 End: 11-03-2022 Evaluation and management of inpatient DO TyreeRama Ambrosio Work Phone: [facility] Work Phone: Start: 11-03-2022 End: 11-03-2022 Patient encounter procedure DO TyreeRama Ambrosio Work Phone: [facility] Outpatient Start: 11-03-2022 End: 11-03-2022 ambulatory Ayaz Cruz Facility:[facility] Start: 11-02-2022 End: 11-03-2022 Evaluation and management of inpatient DO Damian Ambrosio Work Phone: [facility] Work Phone: Start: 11-01-2022 Evaluation and manag ement of inpatient DO Damian Ambrosio Work Phone: [facility] Work Phone: Start: 11-01-2022 observation encounter DO Damian Ambrosio Work Phone: [facility] Work Phone: Start: 10-26-2022 End: 10-30-2022 Evaluation and management of inpatient DO Damian Ambrosio Work Phone: [facility] Work Phone: Start: 10-26-2022 End: 10-26-2022 Emergency department patient visit DO Damian Ambrosio Work Phone: [facility] Work Phone: Start: 09-10-2021 End: 09-10-2021 Evaluation and management of inpatient DO Damian Ambrosio Work Phone: [facility] Start: 07-14-2021 End: 07-14-2021 ambulatory Alejandra Bar Other [facility] [place] Other Start: 07-14-2021 Follow-up encounter Alejandra Polk [...] nial art compl bi study Deepali Olson CASH POSTING REPRESENTATIVE-COMMUNICATION INSTRUCTOR Work Phone: Start: 01-25-2023 NUCLEAR STRESS TEST [...] DTaP/Tdap/Td Vaccines (2 - Td or Tdap) [facility] Start: 10-10-2028 Lipid panel Lipid Panel [facility] Start: 09-17-2025 End: 09-17-2025 Patient encounter procedure 09/17/2025 1:00 PM EDT Office Visit [facility] [address] [facility] [address] [place] [phone] Manjinder Galloway MD [address] [facility] [address] [place] [address] [facility] Start: 12-18-2024 End: 03-18-2025 Alanine aminotransferase [Enzymatic activity/volume] in Serum or Plasma by With P-5'-P Alanine Aminotransferase Lab Routine Mixed hyperlipidemia Expected: 12/18/2024, Expires: 03/18/2025 [facility] Work Phone: Comment on above: Expected: 12/18/2024, Expires: Start: 12-18-2024 End: 03-18-2025 Aspartate aminotransferase [Enzymatic activity/volume] in Serum or Plasma by With P-5'-P Aspartate Aminotransferase Lab Routine Mixed hyperlipidemia Expected: 12/18/2024, Expires: 03/18/2025 [facility] Work Phone: Comment on above: Expected: 12/18/2024, Expires: Start: 12-18-2024 End: 03-18-2025 Basic metabolic 2000 panel - Serum or Plasma Basic Metabolic Panel Lab Routine Two-vessel coronary artery disease Ischemic cardiomyopathy Expected: 12/18/2024, Expires: 03/18/2025 [facility] Work Phone: Comment on above: Expected: 12/18/2024, Expires: Start: 12-18-2024 End: 03-18-2025 Lipid 1996 panel - Serum or Plasma Lipid Panel Lab Routine Two-vessel coronary artery disease Mixed hyperlipidemia Expected: 12/18/2024, Expires: 03/18/2025 [facility] Work Phone: Comment on above: Expected: 12/18/2024, Expires: Start: 12-10-2024 End: 12-10-2024 Patient encounter procedure 12/10/2024 12:00 PM EDT Office Visit [facility] [id number] [place] [phone] [place] [address] [place] [address] [facility] Start: 11-22-2024 Diabetes mellitus screening Diabetes Screening [facility] Start: 11-14-2024 Creatinine measurement Creatinine Level [facility] Start: 11-14-2024 Potassium measurement Potassium Level [facility] Start: 10-30-2024 Adult BMI Screening Adult BMI Screening [facility] Start: 10-14-2024 Influenza vaccination [facility] Start: 10-11-2024 Medicare Annual Wellness Visit Medicare Annual Wellness Visit (AWV) [facility] Start: 09-17-2024 End: 09-17-2024 Patient encounter procedure 09/17/2024 1:30 PM EDT Office Visit [facility] [address] [facility] [address] [place] [phone] Manjinder Galloway MD [address] [facility] [address] [place] [address] [facility] Start: 08-06-2024 End: 08-06-2024 Patient encounter procedure 08/06/2024 11:30 AM EDT Office Visit [facility] [address] [facility] [place] [phone] [place] [address] [place] [address] [facility] Start: 05-01-2024 End: 05-01-2024 Patient encounter procedure 05/01/2024 2:50 PM EDT Office Visit [facility] [address] [facility] [address] [place] [phone] Manjinder Galloway MD [address] [place] [address] [facility] Start: 02-18-2024 End: 03-14-2025 US.doppler Carotid arteries - bilateral Vascular US carotid artery duplex bilateral Vascular Ultrasound Routine Carotid stenosis, right Expected: 02/18/2024 (Approximate), Expires: 03/14/2025 [facility] Service [facility] Work Phone: Comment on above: Expected: 02/18/2024 (Approximate), Expi res: 03/14/2025 Start: 02-17-2024 Creatinine measurement Creatinine Level [facility] Start: 02-17-2024 Potassium measurement Potassium Level [facility] Start: 01-23-2024 End: 01-23-2024 Patient encounter procedure 01/23/2024 2:15 PM EST Office Visit [facility] [address] [place] [phone] [place] [address] [place] [address] [facility] Start: 12-26-2023 End: 12-25-2024 PET+CT Bone from skull base to mid-thigh W [id number] IV NM PET CT bone skull base to mid thigh Imaging Routine 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) Expected: 12/26/2023, Expires: 12/25/2024 [facility] Work Phone: Comment on above: Expected: 12/26/2023, Expires: Start: 12-20-2023 Echocardiography Echocardiogram [facility] Start: 12-08-2023 End: 12-08-2023 Patient encounter procedure 12/08/2023 11:30 AM EDT Office Visit [facility] [address] [place] [address] [place] [address] [place] [address] [facility] Start: 12-05-2023 End: 12-05-2023 Patient encounter procedure 12/05/2023 11:30 AM EDT Office Visit [facility] [address] [facility] [address] [place] [phone] [place] [address] [place] [address] [facility] Start: 11-22-2023 End: 11-22-2023 Admission to same day surgery center 11/22/2023 7:45 AM EDT - 11/22/2023 10:40 AM EDT Surgery [facility] [place] MCMILLAN [address] [place] [address] [place] [address] [place] [address] Parotidectomy [32299 (CPT )] [facility] [place] Comment on above: Parotidectomy [64552 (CPT )] Start: 11-22-2023 End: 11-22-2023 Exc [...] Start: 11-22-2023 Subsequent hospital visit by physician [facility] MCMILLAN Start: 11-15-2023 End: 11-15-2023 Admission to establishment 11/15/2023 10:00 AM EDT Pre-Admission Testing [facility] [address] [place] [address] [facility] Start: 11-09-2023 End: 11-09-2023 Clinical Support 11/09/2023 2:00 PM EDT Clinical Support [facility] [address] [place] [address] [facility] Start: 11-07-2023 End: 11-07-2023 Patient encounter procedure 11/07/2023 3:50 PM EDT Office Visit [facility] [address] [facility] [address] [place] [phone] Manjinder Galloway MD [address] [facility] [address] [place] [address] [facility] Start: 10-24-2023 End: 10-23-2024 Basic metabolic 2000 panel - Serum or Plasma Basic Metabolic Panel Lab Routine Malignant neoplasm of parotid gland (Multi) Expected: 10/24/2023 (Approximate), Expires: 10/23/2024 [facility] Work Phone: Comment on above: Expected: 10/24/2023 (Approximate), Expi res: 10/23/2024 Start: 10-24-2023 End: 10-23-2024 CBC panel - Blood by Automated count CBC Lab Routine Malignant neoplasm of parotid gland (Multi) Expected: 10/24/2023 (Approximate), Expires: 10/23/2024 [facility] Work Phone: Comment on above: Expected: 10/24/2023 (Approximate), Expi res: 10/23/2024 Start: 10-24-2023 End: 10-23-2024 Request for Pre-Admission Testing Visit Request for Pre-Admission Testing Visit Procedures Routine Malignant neoplasm of parotid gland (Multi) Expected: 10/24/2023 (Approximate), Expires: 10/23/2024 [facility] Service Area Work Phone: Comment on above: Expected: 10/24/2023 (Approximate), Expi res: 10/23/2024 Start: 10-15-2023 COVID-19 Vaccine ( season) COVID-19 Vaccine ( season) [facility] Start: 10-15-2023 COVID-19 Vaccine () COVID-19 Vaccine () [facility] Start: 10-15-2023 Influenza vaccination [facility] Start: 10-11-2023 End: 10-10-2024 CBC W Auto Differential panel - Blood CBC and differential Lab Routine Altered mental status, unspecified altered mental status type Chronic obstructive pulmonary disease, unspecified COPD type (CMS/HCC) Essential hypertension (CMS/HCC) Ischemic cardiomyopathy (CMS/HCC) Mixed hyperlipidemia (CMS/HCC) Expected: 10/11/2023 (Approximate), Expires: 10/10/2024 [facility] Comment on above: Expected: 10/11/2023 (Approximate), Expi res: 10/10/2024 Start: 10-11-2023 End: 10-10-2024 Comprehensive metabolic 2000 panel - Serum or Plasma Comprehensive metabolic panel Lab Routine Altered mental status, unspecified altered mental status type Chronic obstructive pulmonary disease, unspecified COPD type (CMS/HCC) Essential hypertension (CMS/HCC) Expected: 10/11/2023 (Approximate), Expires: 10/10/2024 [facility] Comment on above: Expected: 10/11/2023 (Approximate), Expi res: 10/10/2024 Start: 10-11-2023 End: 10-10-2024 Lipid 1996 panel - Serum or Plasma Lipid panel Lab Routine Essential hypertension (CMS/HCC) Ischemic cardiomyopathy (CMS/HCC) Mixed hyperlipidemia (CMS/HCC) Two-vessel coronary artery disease (CMS/HCC) Expected: 10/11/2023 (Approximate), Expires: 10/10/2024 [facility] Work Phone: Comment on above: Expected: 10/11/2023 (Approximate), Expi res: 10/10/2024 Start: 10-11-2023 End: 10-10-2024 Prostate specific Ag [Mass/volume] in Serum or Plasma PSA Lab Routine Prostate cancer screening Expected: 10/11/2023 (Approximate), Expires: 10/10/2024 [facility] Comment on above: Expected: 10/11/2023 (Approximate), Expi res: 10/10/2024 Start: 10-11-2023 End: 10-10-2024 Urate [Mass/volume] in Serum or Plasma Uric acid Lab Routine Chronic gout without tophus, unspecified cause, unspecified site Expected: 10/11/2023 (Approximate), Expires: 10/10/2024 [facility] Comment on above: Expected: 10/11/2023 (Approximate), Expi res: 10/10/2024 Start: 10-11-2023 End: 10-11-2023 Patient encounter procedure 10/11/2023 11:20 AM EDT Office Visit [facility] [address] [place] [phone] Raheem Ambrosio DO [address] [place] [address] Arrived [facility] Comment on above: Arrived Start: 05-12-2023 End: 05-12-2023 Patient encounter procedure 05/12/2023 9:40 AM EDT Office Visit [address] [place] [phone] Manjinder Galloway MD [address] [facility] [address], [address] [place] [address] [facility] Start: 05-09-2023 End: 05-09-2023 Patient encounter procedure 05/09/2023 2:50 PM EDT Office Visit [address] [place] [address] Manjnider Galloway MD [address] [facility] [address], [address] [place] [address] [facility] Start: 05-02-2023 [facility] Start: 04-28-2023 Administration of prophylactic treatment [facility] Start: 04-28-2023 Referral to psychiatrist [facility] Start: 04-28-2023 Comprehensive metabolic 2000 panel - Serum or Plasma [facility] Start: 04-28-2023 End: 04-28-2023 [facility] Start: 04-27-2023 Consultation [facility] Start: 04-27-2023 Hospital admission [facility] Start: 04-27-2023 End: 04-27-2023 [facility] Start: 03-25-2023 COVID-19 Vaccine (5 - Pfizer series) COVID-19 Vaccine (5 - Pfizer series) [facility] Start: 03-25-2023 Zoster Vaccines (3 of 3) Zoster Vaccines (3 of 3) [facility] Start: 03-08-2023 [facility] Start: 03-07-2023 End: 03-07-2023 Patient encounter procedure 03/07/2023 11:30 AM EST Office Visit [facility] [address] [place] [phone] [place] [address] [place] [address] [facility] Start: 03-06-2023 Referral to neurologist [facility] Start: 03-06-2023 Referral to ear, nose and throat surgeon [facility] Start: 03-06-2023 Referral to oncologist [facility] Start: 03-05-2023 Blood chemistry [facility] Start: 03-05-2023 [facility] Start: 03-04-2023 Blood chemistry [facility] Start: 03-04-2023 [facility] Start: 03-03-2023 Blood chemistry [facility] Start: 03-03-2023 [facility] Start: 03-02-2023 Blood chemistry [facility] Start: 03-02-2023 End: 03-02-2023 [facility] Start: 03-01-2023 Referral to metal numerical control programmer [facility] Start: 03-01-2023 Referral to rehabilitation physician [facility] Start: 03-01-2023 Blood chemistry [facility] Start: 03-01-2023 [facility] Start: 02-28-2023 Hospital admission [facility] Start: 02-28-2023 [facility] Start: 02-28-2023 [facility] Start: 02-27-2023 End: 02-27-2023 Admission to same day surgery center 02/27/2023 3:30 PM EST - 02/27/2023 6:55 PM EST Surgery [facility] [place] [address] [place] [phone] [place] [address] [place], [place] [phone] Parotidectomy [23831 (CPT )] [facility] [place] Comment on above: Parotidectomy [24823 (CPT )] Start: 02-27-2023 End: 02-27-2023 Exc prtd allyssa/prtd glnd tot dsj&prsrv facial nr Parotidectomy Mass of left parotid gland 02/27/2023 3:30 PM EST Virtual [facility] [place] Start: 02-27-2023 End: 02-27-2023 Grafting of autologous soft tiss by direct exc Excision Adipose Tissue Graft Torso Mass of left parotid gland 02/27/2023 3:30 PM EST Virtual [facility] [place] Start: 02-27-2023 Subsequent hospital visit by physician 02/27/2023 2:00 PM EST Hospital Encounter [facility] [place] [address] [place] [address] [place] [address] [place] [address] [facility] [place] Start: 02-21-2023 End: 02-21-2023 Patient encounter procedure 02/21/2023 8:30 AM EST Office Visit [facility] [address] [facility] [address] [phone] Michelle Gonzales MD [address] [facility] [address] [place] [address] [facility] 2 Start: 01-27-2023 End: 01-27-2023 Patient encounter procedure Obdulia An [facility] Start: 01-25-2023 End: 01-25-2023 Professional / ancillary services management 01/25/2023 10:15 AM EST Ancillary Procedure Ana Venegas[address] [place] [address] [place] [phone] Ana Dia Start: 01-25-2023 End: 01-25-2023 Patient encounter procedure 01/25/2023 9:30 AM EST Appointment Ana Dia [address] [place] [phone] Ana Dia Start: 01-25-2023 End: 01-25-2023 Professional / ancillary services management Ana Dia Start: 01-17-2023 End: 01-17-2025 NM Heart Perfusion W stress and W radionuclide IV Nuclear Stress Test Cardiac Nuclear Medicine Routine Two-vessel coronary artery disease Ischemic cardiomyopathy Carotid stenosis, right Pre-operative cardiovascular examination Expected: 01/17/2023 (Approximate), Expires: 01/17/2025 [facility] Service Area Work Phone: Comment on above: Expected: 01/17/2023 (Approximate), Expi res: 01/17/2025 Start: 12-23-2022 [facility] Start: 12-22-2022 Referral to vascular surgeon [facility] Start: 12-20-2022 Administration of prophylactic treatment [facility] Start: 12-20-2022 Referral to professor of vegetable science [facility] Start: 12-20-2022 Blood chemistry [facility] Start: 12-20-2022 Lipid panel [facility] Start: 12-20-2022 End: 12-20-2022 [facility] Start: 12-20-2022 [facility] Start: 12-19-2022 End: 12-19-2022 [facility] Start: 12-19-2022 Physical therapy procedure [facility] Start: 12-19-2022 Referral to occupational therapist [facility] Start: 12-19-2022 MRI of head MR head/brain wo con [facility] Start: 12-19-2022 Hospital admission [facility] Start: 12-19-2022 Bacteria identified in Blood by Culture Blood Culture [facility] Start: 12-19-2022 Blood culture for bacteria, including anaerobic screen Blood Culture [facility] Start: 12-19-2022 [facility] Start: 11-22-2022 [facility] Start: 11-21-2022 Comprehensive metabolic 2000 panel - Serum or Plasma [facility] Start: 11-21-2022 [facility] Start: 11-20-2022 Bacteria identified in Urine by Culture [facility] Start: 11-20-2022 Referral to occupational therapist [facility] Start: 11-20-2022 Physical therapy procedure [facility] Start: 11-20-2022 Consultation [facility] Start: 11-20-2022 Hospital admission [facility] Start: 11-20-2022 End: 11-20-2022 [facility] Start: 11-03-2022 [facility] Start: 11-03-2022 [facility] Start: 11-02-2022 Introduction of Remdesivir Anti-infective into Peripheral Vein, Percutaneous Approach, [employer] 5 Introduction of Remdesivir Anti-infective into Peripheral Vein, Percutaneous Approach, [employer] 5 [facility] Start: 11-02-2022 Referral to rehabilitation physician [facility] Start: 11-02-2022 Blood chemistry [facility] Start: 11-02-2022 [facility] Start: 11-01-2022 Physical therapy procedure [facility] Start: 11-01-2022 Referral to occupational therapist [facility] Start: 11-01-2022 Respiratory pathogens DNA and RNA panel - Nasopharynx by GIANLUCA with non-probe detection [facility] Start: 11-01-2022 Hospital admission [facility] Start: 11-01-2022 [facility] Start: 10-30-2022 [facility] Start: 10-28-2022 Referral to psychiatrist [facility] Start: 10-28-2022 Referral to rehabilitation physician [facility] Start: 10-27-2022 Blood chemistry [facility] Start: 10-27-2022 End: 10-28-2022 [facility] Start: 10-27-2022 Consultation [facility] Start: 10-27-2022 Physical therapy procedure [facility] Start: 10-27-2022 Referral to occupational therapist [facility] Start: 10-27-2022 Hospital admission [facility] Start: 10-27-2022 End: 10-27-2022 [facility] Start: 10-14-2022 Influenza vaccination Influenza Vaccine (#1) [facility] Start: 09-10-2021 [facility] Work Phone: Start: 09-10-2021 [facility] Work Phone: Start: 09-10-2021 Referral to neurologist [facility] Work Phone: Start: 09-10-2021 Hospital admission [facility] Work Phone: Start: 07-16-2021 COVID-19 Vaccine (5 - Pfizer series) COVID-19 Vaccine (5 - Pfizer series) [facility] Start: 08-26-2016 Zoster Vaccines (2 of 3) Zoster Vaccines (2 of 3) [facility] Start: 2011 Fall Risk Screening Fall Risk Screening [facility] Start: 01-30-1996 Administration of varicella zoster vaccine Z[facility] (Shingles) [facility] Start: 01-30-1968 DTaP/Tdap/Td Vaccines (1 - Tdap) DTaP/Tdap/Td Vaccines (1 - Tdap) [facility] Start: 1965 Administration of varicella zoster vaccine Zoster (Shingles) Vaccine (1 of 2) [facility] Start: 1965 DTaP,Tdap and Td Vaccines (1 - Tdap) DTaP,Tdap and Td Vaccines (1 - Tdap) [facility] Start: 1965 Hepatitis A Vaccines (1 of 2 - Risk 2-dose series) Hepatitis A Vaccines (1 of 2 - Risk 2-dose series) [facility] Start: 1965 Urine screening for protein CKD: Urine Protein Screening [facility] Start: 01-30-1964 Diabetes mellitus screening Diabetes Screening [facility] Start: 01-30-1964 Hepatitis C screening Hepatitis C Screening [facility] Start: 1958 Depression Screening Depression Screening [facility] Start: 1958 Tobacco Screening Tobacco Screening [facility] Start: 1946 Lipid panel Lipid Panel [facility] Start: 1945 Medicare Annual Wellness Visit Medicare Annual Wellness Visit (AWV) [facility] Start: 1945 Thyroglobulin Test Thyroglobulin Test [facility] Start: 1945 Yearly Adult Physical Yearly Adult Physical [facility] Blood chemistry [facility] Electrocardiogram, 1 2-lead PRN ACS symptoms Electrocardiogram, 12-lead PRN ACS symptoms ECG Routine As needed until discontinued starting 11/22/2023 [facility] Work Phone: Comment on above: As [...] Days starting 11/22/2023 until 11/25/2023, 4 completed [facility] Work Phone: Comment on above: 4 times daily before meals and at bedtim e for 3 Days starting 11/22/2023 until 11/25/2023, 4 completed Grafting of autologo us soft tiss by direct exc Excision Adipose Tissue Graft Torso Malignant neoplasm of parotid gland (Multi) Virtual [facility] [place] End: 11-22-2023 Incentive Spirometry Instruct Incentive Spirometry Instruct Respiratory Care Routine Once for 1 Occurrences starting 11/22/2023 until 11/22/2023 [facility] Work Phone: Comment on above: Once for 1 Occurrences starting 11/22/19 24 until 11/22/2023 Myeloperoxidase Ab [Units/volume] in Serum by Immunoassay [facility] Neutrophil cytoplasm ic Ab.classic [Titer] in Serum by Immunofluorescence [facility] Neutrophil cytoplasm ic Ab.perinuclear.atypical [Titer] in Serum by Immunofluorescence [facility] P-ANCA measurement [facility] Patient Education [facility] Work Phone: Patient referral [facility] Work Phone: Proteinase 3 Ab [Units/volume] in Serum by Immunoassay [facility] Surgical pathology study [facility] Service Area Work Phone: Comment on above: Release Upon Ordering for 1 Occurrences starting 11/22/2023, 1 completed [facility] Immunizations Immunization Date Immunization Notes Care Provider Willow trotter 01-28-2023 RSV, recombinant, protein subunit RSVpreF, adjuvant reconstitu, 120mcg/0.5mL, PF (Arexvy) Raheem Ambrosio DO Work Phone: [facility] 01-28-2023 tetanus toxoid, redu mallorie diphtheria toxoid, and acellular pertussis vaccine, adsorbed Raheem Ambrosio DO Work Phone: [facility] 01-28-2023 zoster vaccine recombinant Raheem Ambrosio DO Work Phone: [facility] 01-12-2021 influenza, injectabl e, quadrivalent, preservative free Raheem Ambrosio DO Work Phone: [facility] 01-12-2021 influenza virus vaccine, unspecified formulation Manjinder Galloway MD Work Phone: [facility] Work Phone: 05-01-2020 COVID-19 mRNA, Comirnaty (Pfizer) DO Damian Ambrosio Work Phone: [facility] 04-08-2020 COVID-19 mRNA, Comirnaty (Pfizer) DO Damian Ambrosio Work Phone: [facility] 11-16-2019 influenza, high dose seasonal, preservative-free Raheem Ambrosio DO Work Phone: [facility] 11-16-2019 pneumococcal conjuga te vaccine, 13 valent Raheem Ambrosio DO Work Phone: [facility] 07-01-2016 zoster vaccine, live Alejandra Vargaso Other [facility] 06-30-2016 zoster vaccine, live Raheem Ambrosio DO Work Phone: [facility] 06-10-2016 pneumococcal conjuga te vaccine, 13 valent Raheem Ambrosio DO Work Phone: [facility] 07-09-2015 pneumococcal polysaccharide vaccine, 23 valent Raheem Ambrosio DO Work Phone: [facility] Healthcare Payers Date Payer Category Payer Self-pay [id number] 2011 [facility] [id number]. 315 2011 [facility] [id number] 7.2.7.9.859850.702655. 315 2011 Unknown [id number]. 1.13.64 [id number] 2011 [facility] [id number] 2.16.840.1.832524.19 2011 Medicare [id number]. 1.13.64 7.2.7.3.634947.315 2011 Medicare [id number] 2.16.840.1.081697.19 1946 Unknown [id number] 2.16.840.1.833796.3.57 9.2.1259 1946 Unknown [id number] 2.16.840.1.664705.3.57 9.2.1259 1946 Unknown [id number] 2.16.840.1.918465.3.57 9.2.1259 1946 Unknown [id number] 2.16.840.1.095852.3.57 9.2.1259 1946 Unknown [id number] 2.16.840.1.591916.3.57 9.2.1259 1946 Unknown [id number] 2.16.840.1.154517.3.57 9.2.1259 1946 Unknown [id number] 2.16.840.1.188230.3.57 9.2.1246 1946 Unknown [id number] 2.16.840.1.681373.3.57 9.2.1246 1946 Unknown [id number] 2.16.840.1.579110.3.57 9.2.1246 1946 Unknown [id number] 2.16.840.1.242155.3.57 9.2.1246 1946 Unknown [id number] 2.16.840.1.564331.3.57 9.2.1246 1946 Unknown [id number] 2.16.840.1.781211.3.57 9.2.1246 1946 Unknown [id number] 2.16.840.1.750401.3.57 9.2.1246 1946 Unknown [id number] 2.16.840.1.177355.3.57 9.2.1246 1946 Unknown [id number] 2.16.840.1.184884.3.57 9.2.1246 1946 Unknown [id number] 2.16.840.1.124995.3.57 9.2.1245 1946 Unknown [id number] 2.16.840.1.340207.3.57 9.2.1245 1946 Unknown [id number] 2.16.840.1.343411.3.57 9.2.1244 1946 Unknown [id number] 2.16.840.1.433545.3.57 9.2.1244 1946 Unknown [id number] 2.16.840.1.713475.3.57 9.2.1244 1946 Unknown [id number] 2.16.840.1.227679.3.57 9.2.1244 1946 Unknown [id number] 2.16.840.1.460906.3.57 9.2.1244 1946 Unknown [id number] 2.16.840.1.465093.3.57 9.2.1244 Unknown [id number] 2.16.840.1.830844.3.57 9.2.531 Unknown [id number] 2.16.840.1.345438.3.57 9.2.531 Unknown [id number] 2.16.840.1.514002.3.57 9.2.531 Unknown [id number] 2.16.840.1.890524.3.57 9.2.531 Unknown [id number] 2.16.840.1.536621.3.57 9.2.531 Unknown [id number] 2.16.840.1.975519.3.57 9.2.531 Unknown [id number] 2.16.840.1.710834.3.57 9.2.531 Unknown [id number] 2.16.840.1.878648.3.57 9.2.531 Unknown [id number] 2.16.840.1.174451.3.57 9.2.531 Unknown [id number] 2.16.840.1.670956.3.57 9.2.531 Social History Date Type Detail Facility Start: 07-25-2018 End: 01-17-2023 Sex Assigned At [facility] [employer] Other Start: 09-10-2021 End: 03-06-2023 Tobacco smoking status WVIS Smoker (finding) [facility] Start: 1945 Sex Assigned At Male [facility] Start: 10-29-2022 End: 11-20-2022 Tobacco smoking status [facility] Unknown if ever smoked [facility] Start: 11-01-2022 Tobacco smoking stat us WVIS Never smoked tobacco (finding) [facility] Start: 01-03-2023 End: 11-15-2023 Tobacco smoking status WVIS Current some day smoker [facility] Start: 01-17-2023 End: 09-17-2024 Tobacco smoking status NHIS Ex-smoker [facility] Work Phone: End: 02-13-2022 History of tobacco use Cigarette Smoker [facility] Work Phone: Start: 01-17-2023 End: 09-17-2024 Tobacco use and exposure Smokeless tobacco non-user [facility] Work Phone: Start: 07-25-2018 End: 01-17-2023 History of Social function [facility] Work Phone: Start: 1945 [facility] Start: 01-07-2023 End: 06-11-2024 Exposure to SARS-CoV-2 (event) Not sure [facility] Start: 09-21-2022 End: 02-16-2023 Tobacco smoking status NHIS Smokes tobacco daily [facility] Work Phone: Start: 02-16-2023 End: 10-24-2023 Tobacco use and exposure User of smokeless tobacco [facility] Work Phone: Start: 02-16-2023 End: 09-17-2024 Alcohol intake Ex-drinker (finding) [facility] Work Phone: Start: 06-01-2023 End: 10-11-2023 Alcoholic beverage intake Lifetime non-drinker (finding) [facility] Start: 09-21-2022 Alcohol Comment cafffeine 1-2 cups/day [facility] Has the [employer], [employer], or Effective Measure threatened to shut off services in your home in past 12Mo No [facility] How often to you hav e a drink containing alcohol? Never [facility] Work Phone: Start: 01-08-2022 How many standard drinks containing alcohol do you have on a typical day? Patient does not drink [facility] Work Phone: (I/We) worried clinton bee (my/our) food would run out before (I/we) got money to buy more. Never true [facility] Work Phone: Start: 09-18-2014 Sex Male (finding) [facility] Goals Date Patient Goal Desired Activity /State Functional Status Date Assessment Result Facility 05-02-2023 Functional status Patient is Pro gressing Toward Baseline [facility] Work Phone: 04-27-2023 Functional status Patient Not at Baseline [facility] Work Phone: 02-28-2023 Functional status Patient Not at Baseline [facility] Work Phone: 12-23-2022 Functional status Patient is Pro gressing Toward Baseline [facility] Work Phone: 11-22-2022 Functional status Patient at Baseline [facility] Work Phone: 11-03-2022 Functional status Patient at Baseline [facility] Work Phone: 10-30-2022 Functional status Patient at Baseline [facility] Work Phone: 10-27-2022 Functional status Patient Not at Baseline [facility] Work Phone: 09-10-2021 Functional status Patient at Baseline [facility] Work Phone: Mental Status Date Assessment Result Facility 05-02-2023 Cognitive function Cognitive Sta tus Patient is Progressing Toward Baseline [facility] Work Phone: 04-27-2023 Cognitive function Cognitive Sta tus Patient Not at Baseline [facility] Work Phone: 02-28-2023 Cognitive function Cognitive Sta tus Patient Not at Baseline [facility] Work Phone: 12-23-2022 Cognitive function Cognitive Sta tus Patient at Baseline [facility] Work Phone: 11-22-2022 Cognitive function Cognitive Sta tus Patient at Baseline [facility] Work Phone: 11-03-2022 Cognitive function Cognitive Sta tus Patient at Baseline [facility] Work Phone: 10-30-2022 Cognitive function Cognitive Sta tus Patient is Progressing Toward Baseline [facility] Work Phone: 10-27-2022 Cognitive function Cognitive Sta tus Patient at Baseline [facility] Work Phone: 09-10-2021 Cognitive function Cognitive Sta tus Patient at Baseline [facility] Work Phone: Clinical Notes 07-14-2021 to 10-15-2024 [...] Franklin with Mary. documented in this encounter [facility] 10-15-2024 Telephone encounter Note Contract: 198 Mary calling from [facility] patient is in room 202. Calling regarding patient walking and he fell. No visible signs of injury at this time. Connected Dr. Franklin with Mary. [facility] 09-17-2024 History of Presen t illness Narrative [...] without any cardiac complication 7. Patient is [facility] resident 8. Dementia 9. He had a [...] Judgment normal. Allergies Altace [ramipril], Morphine, and [place] flavor Current Medications Current Outpatient Medications Medication [...] furosemide (LASIX) 40 mg, Daily RT HYDROcodone-acetaminophen ([place]) 5-325 mg tablet lubricating eye drops ophthalmic [...] discussion and plan. documented in this encounter [facility] Work Phone: 09-17-2024 Instructions Agustina Robbins [...] was not measured. 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 [employer] [id number] History of Present illness Narrative* Jozef Franklin DO - 09/13/2024 11:59 PM EDT Patient Name: Hilary Maldonado Date of : 1945 Date of Service: 09/14/2024 Facility: [facility] Type of Visit: Acute Visit Subjective Hilary Maldonado is a 79 y.o. male seen today at prison facility for problem and monthly visit. Staff [...] hypertension with stage 3a chronic kidney disease ([facility]) 2. Insomnia, unspecified type 3. Wound of right foot 4. 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 Chronic obstructive pulmonary disease, unspecified COPD type ([facility]) I am going to cut back on his Remeron to 15 mg daily at bedtime. Check chronic kidney disease labs -BMP, CBC, PTH, uric acid, phosphorus, vitamin-D and magnesium. Continue other orders as directed. All medications reviewed and are medically necessary. ELECTRONICALLY SIGNED BY: Jozef Franklin DO documented in this encounterRutland Regional Medical Center21st Century Oncology [id number] History of Present illness Narrative* Jozef Franklin DO - 08/30/2024 5:01 PM EDT Patient Name: Hilary Maldonado Date of : 1945 Date of Service: 08/30/2024 Facility: [facility] Type of Visit: Subsequent Visit Subjective Hilary Maldonado is a 79 y.o. male seen today at prison facility for regular visit. No new problems [...] BY: Jozef Franklin DO documented in this encounterMiddletown Hospital06-24-2025 History of Present illness Narrative* Orion Etienne [...] him in 4 months. documented in this [facility] Work Phone: 1(155) 526-975306-13-2025 History of Present illness Narrative* Jozef Franklin, - 07/26/2024 11:59 PM EDT Patient Name: Hilary Maldonado Date of : 1945 Date of Service: 07/26/2024 Facility: [facility] Type of Visit: Subsequent Visit Subjective Hilary Maldonado is a 79 y.o. male seen today at prison facility for regular visit. No new problems [...] due to general medical condition, with anxiety ([facility]) 4. Chronic obstructive pulmonary disease, unspecified COPD type ([facility]) 5. Atherosclerosis of [place] coronary artery of [place] heart without angina pectoris He is using a high risk medication with benefit. He is not having any side effects. He has a pain generator which requires strong pain medication. Continue current regimen. All medications reviewed and are medically necessary. ELECTRONICALLY SIGNED BY: Jozef Farnklin DO documented in this encounterMiddletown Hospital05-07-2025 History of Present illness Narrative* Jozef Franklin DO - 06/19/2024 11:59 PM EDT Patient Name: Hilary Maldonado Date of : 1945 Date of Service: 06/19/2024 Facility: [facility] Type of Visit: Acute Visit Subjective Hilary Maldonado is a 79 y.o. male seen today at prison facility for problem and regular visit. Patient and staff report increased pain in his right foot. He is currently on Lyrica 100 mg twice aday as well as hydrocodone-acetaminophen 5-325 every 8 hours as needed for pain. He would like to improve his pain control. [place] only helps a little bit. He has difficulty in describing the pain. Wound clinic ordered an x-ray but no acute pathology was identified. Allergies: Patient has no allergy information on record. Code Status: FULL CODE BP 129/76 Pulse 96 Temp 36.4 C (97.6 F) Resp 18 SpO2 97% Physical Exam Vitals reviewed. Exam conducted with a chemical operator present (Toño Whiting MS 3). Constitutional: General: [...] BY: Jozef Franklin DO documented in this encounterWood County HospitalBillfish Software [facility] City [id number] History of Present illness Narrative* Orion Etienne [...] him in 2 months. documented in this [facility] Work Phone: 1(215) 333-889804-15-2025 History of Present illness Narrative* Jozef Reynawyatt, DO - 05/28/2024 9:52 PM EDT Patient Name: Hilary Maldonado Date of : 1945 Date of Service: 05/28/2024 Facility: [facility] Type of Visit: Acute Visit Subjective Hilary Maldonado is a 79 y.o. male seen today at prison facility for problem visit. Patient has a [...] Exam Vitals reviewed. Exam conducted with a chemical operator present (Ayaz Coleman MS 3). Constitutional: General: [...] BY: Jozef Franklin DO documented in this encounterMiddletown Hospital03-28-2025 History of Present illness Narrative* Jozef Franklin DO - 05/10/2024 11:59 PM EDT Patient Name: Hilary Maldonado Date of : 1945 Date of Service: 05/10/2024 Facility: [facility] Type of Visit: Acute Visit Subjective Hilary Maldonado is a 79 y.o. male seen today at prison facility for regular monthly visit. Nurses report [...] Exam Vitals reviewed. Exam conducted with a chemical operator present (Ayaz Coleman MS 3). Constitutional: General: [...] 05/13/2024 11:33 PM EDT documented in this encounterMiddletown Hospital03-28-2025 History of Present illness Narrative* Jozef James DO Noemi - 05/10/2024 11:59 PM EDT Opened in error documented in this encounterMiddletown Hospital02-28-2025 History of Present illness Narrative* Jozef G DO Noemi - 04/12/2024 11:59 PM EST Patient Name: Hilary Maldonado Date of : 1945 Date of Service: 04/12/2024 Facility: [facility] Type of Visit: Subsequent Visit Subjective Hilary Maldonado is a 79 y.o. male seen today at prison facility for monthly visit. Staff reports new [...] BY: Jozef Franklin DO documented in this encounterMiddletown Hospital02-11-2025 History of Present illness Narrative* Orion Etienne [...] him in 3 months. documented in this [facility] Work Phone: 1(270) 177-879801-10-2025 History of Present illness Narrative* Jozef Franklin DO - 02/23/2024 11:59 PM EST Patient Name: Hilary Maldonado Date of : 1945 Date of Service: 02/23/2024 Facility: [facility] Type of Visit: Subsequent Visit Subjective Hilary Maldonado is a 79 y.o. male seen today at prison facility for monthly visit. No new problems [...] BY: Jozef Franklin DO documented in this encounterMiddletown Hospital01-09-2025 History of Present illness Narrative* Jozef Franklin DO - 02/22/2024 8:57 AM EST Opened in error documented in this encounterMiddletown Hospital12-20-2024 History of Present illness Narrative* Jozef Franklin DO - 02/02/2024 11:59 PM EST Patient Name: Hilary Maldonado Date of : 1945 Date of Service: 02/02/2024 Facility: [facility] Type of Visit: Subsequent Visit Subjective Hilary Maldonado is a 79 y.o. male seen today at prison facility for monthly visit. No new problems reported by staff or patient. He has an appointment coming up with survey research teacher in February to discuss further treatment of the mass that was removed. 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 Allergies: Patient has no allergy information on record. Code Status: FULL CODE BP 131/77 Physical Exam Vitals reviewed. Exam conducted with a chemical operator present (Marina Johnson MS 3). Constitutional: General: [...] 1. 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[facility]) 2. 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 Continue other orders as directed. All medications reviewed and are medically necessary. ELECTRONICALLY SIGNED BY: Jozef Franklin DO documented in this encounterMiddletown Hospital11-20-2024 History of Present illness Narrative* Jozef Frankiln DO - 01/03/2024 4:55 PM EST Patient Name: Hilary Maldonado Date of : 1945 Date of Service: 01/03/2024 Facility: [facility] Type of Visit: Subsequent Visit Subjective Hilary Maldonado is a 78 y.o. male seen today at prison facility for problem visit. Vidal was having [...] due to general medical condition, with anxiety ([facility]) 3. Gastroesophageal reflux disease without esophagitis 4. [...] BY: Jozef Franklin DO documented in this encounterMiddletown Hospital11-12-2024 History of Present illness Narrative* Orion Etienne [...] him in 2 months. documented in this encounterMary Rutan Hospital Work Phone: 1(838) 617-893210-21-2024 [id number] AP INTRAOPERATIVE CONSULTATION [facility] [id number] History of Present illness Narrative* Jozef Franklin DO - 11/28/2023 2:00 PM EDT Patient Name: Hilary Maldonado Date of : 1945 Date of Service: 11/28/2023 Facility: [facility] Type of Visit: Skilled Visit Subjective Hilary Maldonado is a 78 y.o. male seen today at prison facility for therapy visit. Vidal is in therapy but they are planning to discharge him this week. He had his surgery last week upin [place]. They removed a mass from his left [...] both knees Await for pathology report from [place] to determine next course of action if any. Continue therapy to reach maximum improvement. Continue current regimen. All medications reviewed and are medically necessary. ELECTRONICALLY SIGNED BY: Jozef Franklin DO documented in this encounterMiddletown Hospital10-11-2024 Hospital course Narrative* Shaniqua Correa, CASH POSTING REPRESENTATIVE-COMMUNICATION INSTRUCTOR - 11/24/2023 10:28 AM EDT Discharge Diagnosis [...] recovered in PACU and was transferred to [facility] for post-operative care. Patient post-operative course [...] Center 12/08/2023 11:30 AM Orion Etienne MD [address] 05/01/2024 2:50 PM Manjinder Galloway MD [id number] SHERRI Zepeda documented in this [facility] Work Phone: 1(524) 753-797610-11-2024 Hospital Note* Hospital Course - Leon Don MD - 11/24/2023 8:11 AM EDT Hilary Maldonado is a 78 y.o. male with a left parotid mass, who presented for Left superficial parotidectomy by Dr Etienne on 12/01. Patient had an uncomplicated surgical course. Patient recovered in PACU and was transferred to [facility] for post-operative care. Patient post-operative course was uncomplicated. He tolerated a diet throughout and his drain was pulled on POD 2. On day of discharge, post-operative pain was well controlled with enteral pain medication, breathing on room air, voiding spontaneously ambulating well, and was tolerating a diet. Follow-up arranged. [facility] Work Phone: 1(457) 745-162510-11-2024 Miscellaneous Notes* Hospital Course - Leon Don MD - 11/24/2023 8:11 AM EDT Hilary Maldonado is a 78 y.o. male with a left parotid mass, who presented for Left superficial parotidectomy by Dr Etienne on 12/01. Patient had an uncomplicated surgical course. Patient recovered in PACU and was transferred to [facility] for post-operative care. Patient post-operative course [...] personal belongings. Pt stable. Shy Kaminski RN * Op Note - Orion Etienne MD - 11/22/2023 2:04 PM EDT [facility] - Operative Report Name: Hilary Maldonado Date of Procedure: 11/22/23 Location: [facility] Attending Surgeon: Orion Etienne MD Resident/Fellow: Yolanda [...] Consent was obtained from the power of regulatory attorney. Regardless the patient was told about [...] procedure Orion Etienne MD documented in this [facility] Work Phone: 1(756) 508-333510-11-2024 Plan of care note* Care Plan - [...] will remain safe and free from injury [facility]10-10-[facility] History of Present illness Narrative * Mariano Harmon, GEOVANNA - 11/23/2023 1:35 PM EDT 11/23/23 0700 Discharge Planning Living Arrangements Other (Comment) (Pt is a resident at [facility]) Support Systems (facility staff) Assistance Needed total Type of Residence care home/residential care Number of Stairs to Enter Residence 3 Number of Stairs Within Residence 6 Do you have animals or pets at home? No Home or Post Acute Services Post acute facilities (Rehab/SNF/etc) Type of Post Acute Facility Services replenishment analyst care Expected Discharge Disposition Inter Does the [...] were you homeless or living in a custodial (including now)? N Transportation Needs In the [...] his discharge. Pt is a resident at [facility]. He was unsure whether the facility would provide transport back or if it had to be arranged by SW. SW sent a referral in [facility] to [facility]. Pt's wheelchair is bedside. SW put pt's transport request in [employer] will call in case facility cannot provide transport. SW will follow. GEOVANNA Martins 11/23/23- [facility] requested transport for 3pm however no one accepted. [facility] resubmitted and [facility] accepted ride for 830pm. [facility] canceled ride and attempted to resubmit. [facility] updated patients care team. Monique Salcedo RN [facility] 11/23/2023 1325 [employer] was unable to secure transport for pt today. SW called [facility] and transport was confirmed for tomorrow morning at 1130a. Pt is disappointed that he is unable to return home today. Facility notified. SW will follow. GEOVANNA Martins 11/23/2023 1350 Number for report: [phone], (ask for [place] nurse) will be sent to bedside nurse tomorrow morning. SW will follow. GEOVANNA Martins * Monique Roach RN - 11/23/2023 11:46 AM EDT 11/23/23 0700 Discharge Planning Living Arrangements Other (Comment) (Pt is a resident at [facility]) Support Systems (facility staff) Assistance Needed total Type of Residence care home/residential care Number of Stairs to Enter Residence 3 Number of Stairs Within Residence 6 Do you have animals or pets at home? No Home or Post Acute Services Post acute facilities (Rehab/SNF/etc) Type of Post Acute Facility Services skilled nursing care Expected Discharge Disposition Inter Does the [...] were you homeless or living in a custodial (including now)? N Transportation Needs In the [...] his discharge. Pt is a resident at [facility]. He was unsure whether the facility would provide transport back or if it had to be arranged by SW. SW sent a referral in [facility] to [facility]. Pt's wheelchair is bedside. SW put pt's transport request in [employer] will call in case facility cannot provide transport. SW will follow. Mariano Harmon [facility], TRAVEL REGISTERED NURSE NICU 11/23/23- [facility] requested transport for 3pm however no one accepted. [facility] resubmitted and [facility] accepted ride for 830pm. [facility] canceled ride and attempted to resubmit. [facility] updated patients care team. Monique Salcedo RN [facility] * Shaniqua Correa APRN-COMMUNICATION INSTRUCTOR - 11/23/2023 10:15 AM EDT Hilary Maldonado [...] drain check patient to return to his rod piler care facility All plans discussed with attendings after morning rounds. I spent 35 minutes in the professional and overall care of this patient. Shaniqua Correa APRN, COMMUNICATION INSTRUCTOR Certified Family Nurse Practitioner Nurse Practitioner III Department of Otolaryngology: Head & Neck Surgery Personal Pager [phone] ENT Team Head and Neck Phone: [phone] * Mariano Harmon, GEOVANNA - 11/23/2023 7:04 AM EDT 11/23/23 0700 Discharge Planning Living Arrangements Other (Comment) (Pt is a resident at [facility]) Support Systems (facility staff) Assistance Needed total Type of Residence care home/residential care Number of Stairs to Enter Residence 3 Number of Stairs Within Residence 6 Do you have animals or pets at home? No Home or Post Acute Services Post acute facilities (Rehab/SNF/etc) Type of Post Acute Facility Services skilled nursing care Expected Discharge Disposition Inter Does the [...] were you homeless or living in a custodial (including now)? N Transportation Needs In the [...] his discharge. Pt is a resident at [facility]. He was unsure whether the facility would provide transport back or if it had to be arranged by SW. SW sent a referral in [facility] to [facility]. Pt's wheelchair is bedside. SW put pt's transport request in [employer] will call in case facility cannot provide transport. SW will follow. GEOVANNA Martins documented in this encounterMary Rutan Hospital Work Phone: 1(643) 290-659010-10-2024 Hospital Discharge instructions* Discharge Instructions* Yolanda Hackett MD - 11/23/2023 6:02 AM EDT [facility] DEPARTMENT OF OTOLARYNGOLOGY (ENT): PAROTIDECTOMY POST-OPERATIVE INSTRUCTIONS [...] full course of antibiotics. documented in this [facility] Work Phone: 1(267) 991-499210-09-2024 Plan of care note* Care Plan - [...] pain control throughout the shift Outcome: Progressing [facility] Work Phone: 1(296) 890-421210-09-2024 Note* Perioperative Nursing Note - Shy Kaminski [...] personal belongings. Pt stable. Shy Kaminski RN [facility]10-09-[facility] Note* Op Note - Orion Etienne MD - 11/22/2023 2:04 PM EDT [facility] - Operative Report Name: Hilary Maldonado Date of Procedure: 11/22/23 Location: [facility] Attending Surgeon: Orion Etienne MD Resident/Fellow: Yolanda [...] Consent was obtained from the power of regulatory attorney. Regardless the patient was told about [...] for the entire procedure Orion Etienne MD [facility] Work Phone: 1(415) 562-841510-09-2024 Attending History and physical note* Yolanda Hackett [...] that he is a candidate for surgery. [facility] Work Phone: 1(292) 186-501010-09-2024 History and physical note* Yolanda Hackett MD [...] a candidate for surgery. documented in this [facility] Work Phone: 1(970) 186-333610-04-2024 History of Present illness Narrative* Jozef Franklin DO - 11/17/2023 11:59 PM EDT Patient Name: Hilary Maldonado Date of : 1945 Date of Service: 11/17/2023 Facility: [facility] Type of Visit: Skilled Visit Subjective Hilary Maldonado is a 78 y.o. male seen today at prison facility for skilled visit. Vidal is in [...] BY: Jozef Franklin DO documented in this encounterWood County HospitalGroup Commerce [id number] History of Present illness Narrative* Jozef Franklin DO - 11/07/2023 11:59 PM EDT Patient Name: Hilary Maldonado Date of : 1945 Date of Service: 11/07/2023 Facility: [facility] Type of Visit: Skilled Visit Subjective Hilary Maldonado is a 78 y.o. male seen today at prison facility for therapy visit. No new problems [...] BY: Jozef Franklin DO documented in this encounterMiddletown Hospital09-24-2024 History of Present illness Narrative* Manjinder Galloway [...] normal. Judgment: Judgment normal. Allergies Altace [ramipril], Rmij-pplufj-nyim [nutritional supplement-fiber], Morphine, [place] flavor, and Egg Current Medications Current Outpatient [...] exam, discussion and plan. documented in this encounterMary Rutan Hospital Work Phone: 1([phone]) 427-389109-24-2024 Instructions* Patient Instructions* Ingris Garzon LPN - [...] aspirin one week prior documented in this encounterMary Rutan Hospital Work Phone: 1(476) 544-120609-17-2024 History of Present illness Narrative* Jozfe Franklin, - 10/31/2023 11:59 PM EDT Patient Name: Hilary Maldonado Date of : 1945 Date of Service: 10/31/2023 Facility: [facility] Type of Visit: Admission H&P Subjective Hilary Maldonado is a 78 y.o. male seen today at prison facility for admission H&P. Paper H&P reviewed [...] Chronic obstructive pulmonary disease, unspecified COPD type ([facility]) 2. 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 Adult failure to thrive 4. Atherosclerosis of [place] coronary artery of [place] heart without angina pectoris 5. Polyarthritis 6. Hypertension, essential 7. Degenerative disease of nervous system ([facility]) 8. Encephalopathy, unspecified 9. Ischemic cardiomyopathy 10. Other diseases of salivary glands 11. Primary osteoarthritis of both knees 12. Gastroesophageal reflux disease without esophagitis 13. Hyperlipidemia, unspecified hyperlipidemia type 14. Generalized anxiety disorder 15. Allergic rhinitis, unspecified seasonality, unspecified trigger 16. Dysphagia, unspecified type 17. Nicotine dependence, cigarettes, uncomplicated 18. Peripheral vascular disease, unspecified ([facility]) 19. Occlusion and stenosis of right carotid artery 20. Major depressive disorder, single episode, severe without psychotic features ([facility]) 21. Gout, unspecified cause, unspecified chronicity, unspecified site 22. Insomnia, unspecified type Admit to [facility] for long-term care. Full code. Continue current regimen. ELECTRONICALLY SIGNED BY: Jozef Franklin DO documented in this encounterMiddletown Hospital09-10-2024 History of Present illness Narrative* Orion Etienne [...] a candidate for surgery. documented in this encounterMary Rutan Hospital Work Phone: 1([phone]) 389-454808-28-2024 History of Present illness Narrative* Zelda Mendez [...] No Who is your medical power of regulatory attorney?: has suargian through the state Objective [...] Advance Care Planning Has guardian and a brancher that controls the estate Diagnoses and all orders for this visit: Routine general medical examination at health care facility (Primary) Degenerative disease of central nervous system ([facility]) Chronic obstructive pulmonary disease, unspecified COPD type ([facility]) Essential hypertension ([facility]) Impaired mobility and ADLs Mixed hyperlipidemia ([facility]) Patient here for annual Medicare Wellness visit. [...] October 11, 2023 documented in this encounterMissouri Rehabilitation [id number] History of Present illness Narrative* Raheem Ambrosio, DO - 10/11/2023 11:20 AM EDT Images from the original note were not included. SUBJECTIVE: Hilary Maldonado is a 78 y.o. male presents with chief complaint of Weakness, Gen [facility]. Edema: Has complaints [...] asking for a h & p for mcc placement. Weakness, Gen This is a chronic problem. The current episode started more than 1 year ago. The problem has been unchanged. Review of Systems: Review of Systems All other systems reviewed and are negative. Problem List: Patient Active Problem List Diagnosis Polyarthralgia Gastro-esophageal reflux disease without esophagitis Atherosclerotic heart disease of [place] coronary artery without angina pectoris (CMS/HCC) Essential [...] atherosclerosis (CMS/HCC) Dysphagia Hyperlipidemia (CMS/HCC) Hypertension (CMS/HCC) ME (mitral incompetence) Family History: Family History Problem [...] would be safe at home and a mcc is most appropriate at this point until [...] tablet, Rfl: 3 documented in this encounterMissouri Rehabilitation [id number] Progress note Author Celeste Alfonso [facility] May 01, 2023 12:36pm Note Date/Time May 01, 2023 12: 36pm [facility] [address] [place] [address] Hospitalist Progress Note Signed Patient: Hilary Maldonado MR#: [id number] : 1945 Acct:[id number] Age/Sex: 78 / M Adm Date: 4 Loc: Room: [address] [place] [address] Type: ADM IN Attending Dr: Celeste Alfonso [...] <Electronically signed by Celeste Alfonso MD> 05/01/23 [facility] Work Phone: 1(449) 319-216903-18-2024 Progress note Author Hilary Rice [facility] May 01, 2023 6:38am Note Date/Time May 01, 2023 6:3 8am [facility] [address] [place] [address] Orthopedic Progress Note Signed Patient: Hilary Maldonado MR#: [id number] : 1945 Acct:[id number] Age/Sex: 78 / M Adm Date: 4 Loc: 3T Room: [address] [place] [address] Type: ADM INOo Attending Dr: Mariano Dennis [...] signed by MD Hilary Rice> 05/01/23 0638 [facility] Work Phone: 1(989) 902-936003-18-2024 [facility]24 Progress note Author Mariano Dennis [facility] April 30, 2023 5:34pm Note Date/Time April 30, 2023 5:3 4pm [facility] [address] [place] [address] Hospitalist Progress Note Signed Patient: Hilary Maldonado MR#: [id number] : 1945 Acct:[id number] Age/Sex: 78 / M Adm Date: 4 Loc: 3T Room: [address] [place] [address] Type: ADM INOo Attending Dr: Mariano Dennis [...] signed by Mariano Dennis DO> 04/30/23 1734 [facility] [place] Work Phone: 1(614) 826-600003-16-2024 Progress note Author Mariano Dennis [facility] April 29, 2023 5:30pm Note Date/Time April 29, 2023 5:3 0pm [facility] [address] [place] [address] Hospitalist Progress Note Signed Patient: Hilary Maldonado MR#: [id number] : 1945 Acct:[id number] Age/Sex: 78 / M Adm Date: 4 Loc: 3T Room: [address] [place] [address] Type: ADM INOo Attending Dr: Mariano Dennis [...] signed by Mariano Dennis DO> 04/29/23 1730 [facility] Work Phone: 1([phone] 450-670103-16-2024 Consult note Author Hilary Rice [facility] April 29, 2023 4:57am Note Date/Time April 28, 2023 1:5 3pm [facility] [address] [place] [address] Orthopedic Consult Note Signed Patient: Hilary Maldonado MR#: [id number] : 1945 Acct:[id number] Age/Sex: 78 / M Adm Date: 4 Loc: Room: [address] [place] [address] Type: ADM INOo Attending Dr: Mariano Dennis [...] Orthopedics consulted for evaluation right knee pain [facility] Medical History Dementia Parotid mass Gout Chronic [...] sleep #14 tabs 03/08/23 [Rx Confirmed 03/24/23] oetmhrm-apmaqxhisyacc-woreiwvc 2 tab PO BID PRN migraine 04/27/23 [...] % (Auto) 47.4, Lymph % (Auto) 31.0, [place] % (Auto) 13.8, Eos % (Auto) 7.4, Baso % (Auto) 0.4, Nucleat RBC Rel Count 0.1, Neut # (Auto) 3.4, Lymph # (Auto) 2.2, [place] # (Auto) 1.0 H, Eos # (Auto) [...] Appearance Clear, Urine pH 6.0, Ur Specific [place] 1.020, Urine Protein 300 H, Urine Glucose [...] % (Auto) 62.4, Lymph % (Auto) 20.6, [place] % (Auto) 10.9, Eos % (Auto) 5.5, Baso % (Auto) 0.6, Nucleat RBC Rel Count 0.1, Neut # (Auto) 5.1, Lymph # (Auto) 1.7, [place] # (Auto) 0.9 H, Eos # (Auto) [...] % (Auto) Cancelled, Lymph % (Auto) Cancelled, [place] % (Auto) Cancelled, Eos % (Auto) Cancelled, Baso % (Auto) Cancelled, Nucleat RBC Rel Count Cancelled, Neut # (Auto) Cancelled, Lymph # (Auto) Cancelled, [place] # (Auto) Cancelled, Eos # (Auto) Cancelled, [...] basis Documented By: Hilary Rice MD 04/28/23 1356 Signed By: <Electronically signed by MD Hilary Rice> 04/29/23 0456 [facility] Work Phone: 1(405) 285-674203-15-2024 Progress note Author Mariano Dennis [facility] April 28, 2023 6:50pm Note Date/Time April 28, 2023 6:5 0pm [facility] [address] [place] [address] Hospitalist Progress Note Signed Patient: Hilary Maldonado MR#: [id number] : 1945 Acct:[id number] Age/Sex: 78 / M Adm Date: 4 Loc: 3T Room: [address] [place] [address] Type: ADM INOo Attending Dr: Mariano Dennis [...] <Electronically signed by Mariano Dennis DO> 04/28/23 3426 [facility] Work Phone: 1(704) 720-427303-15-2024 Consult note Author William booker [facility] April 28, 2023 10:12am Note Date/Time April 28, 2023 10: 01am [facility] [address] [place] [address] Psychiatry Consult Note Signed Patient: Hilary Maldonado MR#: [id number] : 1945 Acct:[id number] Age/Sex: 78 / M Adm Date: 4 Loc: Room: [address] [place] [address] Type : ADM INOo Attending Dr: Mariano Dennis DO Copies to: MD Tyree Leo Jr, DO Mariano Dennis DO~ HPI Consult Date: 04/28/23 Requesting Physician: Mariano Dennis DO Primary Care Provider: Damian Ambrosio DO Consult Narrative HPI: This patient is a 78 male with a complex past medical history recently discharged from this facility March 08 of this year. He was at a prison facility from that time forward reportedly and [...] He is able to identify his location [facility] Medical History Dementia Parotid mass Gout Chronic [...] sleep #14 tabs 03/08/23 [Rx Confirmed 03/24/23] enwevoo-yspiwllahvoxk-ehbapfuk 2 tab PO BID PRN migraine 04/27/23 [...] Color Urine Appearance Urine pH Ur Specific Crockett Urine Protein Urine Glucose (UA) Urine Ketones [...] Appearance Clear Urine pH 6.0 Ur Specific [place] 1.020 Urine Protein 300 H Urine Glucose [...] signed by William Williamson MD> 04/28/23 1012 [facility] [place] Work Phone: [phone] 320-821603-15-2024 History and physical note Author Mariano Dennis [facility] April 27, 2023 10:13pm Note Date/Time April 27, 2023 5:5 6pm [facility] [address] [place] [address] Hospitalist H&P Signed Patient: Hilary Maldonado MR#: [id number] 3460 : 1945 Acct:[id number] Age/Sex: 78 / M Adm Date: 4 Loc: Room: [address] [place] [address] Type: ADM INOo Attending Dr: Mariano Dennis DO Copies to: Tyree Ambrosio Jr, DO Mariano Dennis DO~ HPI DATE OF EXAMINATION: 04/27/23 CHIEF COMPLAINT: Knee pain HISTORY OF PRESENT ILLNESS: This patient is a 78 male with a complex past medical history recently discharged from this facility March 08 of this year. He was at a prison facility from that time forward reportedly and [...] discharge andof March and sent to a [facility]. He was either allowed to leave or eloped from [facility] and somehow Adult Protective Services called EMS for wellness check who subsequently brought the patient to the ER. Medically at the moment the patient appears quite healthy and alert with stable vital signs and labs that are significantly improved from his recenthospitalization. It is unclear if he has been compliant with any of his previously prescribed meds since his leaving the [facility]. I will consult psych for repeat competency [...] mass. Ultimately until stable healthcare guardian and manager sap of his medical issues can be established further workup and potential treatment if warranted will needto be deferred. [facility] Medical History Dementia Parotid mass Gout Chronic [...] sleep #14 tabs 03/08/23 [Rx Confirmed 03/24/23] cmgsdul-frbwhtnvagdhb-kzjezlgn 2 tab PO BID PRN migraine 04/27/23 [...] % (Auto) 20.6 % (.) 04/27/23 16:15 [place] % (Auto) 10.9 % (.) 04/27/23 16:15 Eos % (Auto) 5.5 % (.) 04/27/23 16:15 Baso % (Auto) 0.6 % (.) 04/27/23 16:15 Nucleat RBC Rel Count 0.1 /100 WBC (0-0.5) 04/27/23 16:15 Neut # (Auto) 5.1 x10E3/uL (1.8-7.7) 04/27/23 16:15 Lymph # (Auto) 1.7 x10E3/uL (1.00-4.8) 04/27/23 16:15 [place] # (Auto) 0.9 x10E3/uL (0.0-0.8) H 04/27/23 [...] <Electronically signed by Mariano Dennis DO> 04/27/23 3540 [facility] [place] Work Phone: 1(115) 666-242803-14-2024 History and physical note Author Mariano Dennis [facility] April 27, 2023 10:13pm Note Date/Time April 27, 2023 5:5 6pm [facility] [address] [place] [address] Hospitalist H&P Signed Patient: Hilary Maldonado MR#: [id number] : 1945 Acct:[id number] Age/Sex: 78 / M Adm Date: 4 Loc: Room: [address] [place] [address] Type: ADM INOo Attending Dr: Mariano Dennis DO Copies to: Tyree Ambrosio Jr, DO Mariano Dennis, ~ HPI DATE OF EXAMINATION: 04/27/23 CHIEF COMPLAINT: Knee pain HISTORY OF PRESENT ILLNESS: This patient is a 78 male with a complex past medical history recently discharged from this facility March 08 of this year. He was at a prison facility from that time forward reportedly and [...] discharge andof March and sent to a [facility]. He was either allowed to leave or eloped from [facility] and somehow Adult Protective Services called EMS for wellness check who subsequently brought the patient to the ER. Medically at the moment the patient appears quite healthy and alert with stable vital signs and labs that are significantly improved from his recenthospitalization. It is unclear if he has been compliant with any of his previously prescribed meds since his leaving the [facility]. I will consult psych for repeat competency [...] mass. Ultimately until stable healthcare guardian and manager sap of his medical issues can be established further workup and potential treatment if warranted will needto be deferred. [facility] Medical History Dementia Parotid mass Gout Chronic [...] sleep #14 tabs 03/08/23 [Rx Confirmed 03/24/23] okapktj-ztgafznwzfywy-hlqblszj 2 tab PO BID PRN migraine 04/27/23 [...] % (Auto) 20.6 % (.) 04/27/23 16:15 [place] % (Auto) 10.9 % (.) 04/27/23 16:15 Eos % (Auto) 5.5 % (.) 04/27/23 16:15 Baso % (Auto) 0.6 % (.) 04/27/23 16:15 Nucleat RBC Rel Count 0.1 /100 WBC (0-0.5) 04/27/23 16:15 Neut # (Auto) 5.1 x10E3/uL (1.8-7.7) 04/27/23 16:15 Lymph # (Auto) 1.7 x10E3/uL (1.00-4.8) 04/27/23 16:15 [place] # (Auto) 0.9 x10E3/uL (0.0-0.8) H 04/27/23 [...] <Electronically signed by Mariano Dennis DO> 04/27/23 9764 [facility] [place] Work Phone: 1([phone] 392-801501-30-2024 History of Present illness Narrative* Michelle Gonzales MD - 03/14/2023 2:00 PM EST History Of Present Illness Hilary Maldonado is a 78 y.o. male presenting for carotid evaluation. Patient presents with his sister and his awvvftg-jx-qut who provide the history. He was sent [...] Mother Heart disease Father Allergies Altace [ramipril], Aqax-qhxhsd-sexx [nutritional supplement-fiber], Morphine, [place] flavor, and Egg Review of Systems Reason [...] carotid artery duplex bilateral Result Date: 02/16/2023 [place] [address] and Vascular [facility] CAR[facility]ID [facility]UP[facility] BILATERAL Patient Name: HILARY Andrew ELVIS Reading Physician: [id number] González Castillo MD, RPVI Study Date: 02/16/2023 Ordering Physician: [id number] DEEPALI OLSON MRN/PID: [id number] Technologist: Pollo Petty S Technologist 2: Date of /Age: 12 1945 / 78 years Gender: M Admission Status: Outpatient Location Performed: [facility] Diagnosis/ICD: Occlusion and stenosis of right carotid artery-I65.21 CPT Codes: 74970 Cerebrovascular Carotid Duplex scan complete Patient History [...] Subclavian 199 cm/s Right ICA/CCA Ratio 2.9 46984 González Watkins RPVI Final Assessment/Plan Diagnoses and [...] patient. Michelle Gonzales MD documented in this [facility] Work Phone: 1([phone]) 739-980612-05-2023 History of Present illness Narrative* Manjinder Galloway [...] breath 7. Mixed [facility] Phone: [phone] 666-752012-05-2023 Instructions* Patient Instructions* Ingris Garzon LPN - [...] Follow up 3-4 months [facility] Work Phone: 1(342) 925-371911-21-2023 Consult note Author Norleena Beto [facility] January 03, 2023 10:53am Note Date/Time January 03, 2023 9:17am [facility] [place] [id number] Rad Onc Consult Note - OP Signed Patient: Hilary Maldonado MR#: [id number] : 1945 Acct:[id number] Age/Sex: 77 / M Type: REG RCR Copies to: Tyree Ambrosio Jr, DO Nicol Almanza,~ Assessment & Plan (1) Parotid mass Plan: Referral to Dr. Etienne at [facility] for left parotid mass Assessment: 77-year-old male [...] encouraged patient to speak to ENT at [facility]. He very clearly declines any radiation. HPI Date of Service: 01/03/23 HPI: 77-year-old male with a long history of multiple admissions to the hospital and leaving AMA as well as noncompliant with medical recommendations. [facility] after he was found on the floor [...] parotid frequently. Patient does report some discomfort. [facility] - Medical History Medical History: Medical History [...] DAILY #0 caps 12/22/22 [Rx Confirmed 01/03/23] vnuubsh-ciyysqczkvtgt-jmwjdnby 250 mg-250 mg-65 mg tablet (Excedrin Migraine) [...] <Electronically signed by Franck Pérez MD> 01/03/23 1056 [facility] [place] Work Phone: [phone]) 925-714811-09-2023 Progress note Author Celeste Alfonso [facility] December 22, 2022 2:40pm Note Date/Time December 22, 2022 2 :40pm [facility] [address] [place] [address] Hospitalist Progress Note Signed Patient: Hilary Maldonado MR#: [id number] : 1945 Acct:[id number] Age/Sex: 77 / M Adm Date: 3 Loc: Room: [address] [place] [address] Type: ADM IN Attending Dr: Celeste Alfonso [...] Laboratory work up and Imaging studies reviewed staffing administrator - reviewed EKG - personally reviewed by [...] bedside. Documented By: Celeste Alfonso MD 12/22/22 1439 Signed By: <Electronically signed by Celeste Alfonso MD> 12/22/22 1445 [facility] [place] Work Phone: [phone]) [phone] Progress note Author Manjinder Galloway [facility] December 22, 2022 12:49pm Note Date/Time December 22, 2022 1 2:44pm [facility] [address] [place] [address] Cardiology Progress Note Signed with Stewart Patient: Hilary Maldonado MR#: [id number] 3460 : 1945 Acct:[id number] Age/Sex: 77 / M Adm Date: 3 Loc: Room: [address] [place] [address] Type: ADM IN Attending Dr: Celeste Alfonso [...] % (Auto) 57.9 Lymph % (Auto) 28.2 [place] % (Auto) 8.9 Eos % (Auto) 4.6 Baso % (Auto) 0.4 Nucleat RBC Rel Count 0.1 Neut # (Auto) 5.3 Lymph # (Auto) 2.6 [place] # (Auto) 0.8 Eos # (Auto) 0.4 [...] signed by MD Manjinder Galloway> 12/22/22 1244 [facility] Work Phone: 1([phone]) 153-877611-08-2023 Progress note Author Celeste Alfonso [facility] December 21, 2022 2:39pm Note Date/Time December 21, 2022 2 :35pm [facility] [address] [place] [address] Hospitalist Progress Note Signed Patient: Hilary Maldonado MR#: [id number] : 1945 Acct:[id number] Age/Sex: 77 / M Adm Date: 3 Loc: Room: [address] [place] [address] Type: ADM IN Attending Dr: Celeste Alfonso [...] Laboratory work up and Imaging studies reviewed staffing administrator - reviewed EKG - personally reviewed by [...] Syringe SUBCUT 12/20/23 09:59 Not Given DAILY@1000 [facility] Hydralazine HCl 10 mg 12/19/22 21:40 Hydralazine [...] signed by Celeste Alfonso MD> 12/21/22 1439 [facility] Work Phone: [phone] Consult note Author Manjinder Galloway [facility] December 21, 2022 11:25am Note Date/Time December 21, 2022 1 1:18am [facility] [address] [place] [address] Cardiology Consult Note Signed Patient: Hilary Maldonado MR#: [id number] : 1945 Acct:[id number] Age/Sex: 77 / M Adm Date: 3 Loc: 3T Room: [address] [place] [address] Type: ADM IN Attending Dr: Celeste Alfonso [...] to the left circumflex remotely at the [facility]. Patient apparently was found on the [...] not been seen or follow-up by any professor of vegetable science recently. Echocardiogram since admission showed mild LV systolic dysfunction with LVEF around 45% with inferobasilar wall hypokinesis. 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 Rhythm strips demonstrate ventricularectopic beats. Troponin was mildly elevated. Review of Systems Review of Systems Review of systems: Patient appears very unreliable and unable to to give any detailed information and clearly confused [facility] Source: Unable to Obtain Medical History Chronic [...] documented below: (Sinusrhythm with old inferior wall ME) A&P - Cardiology (1) Altered mental status: [...] <Electronically signed by MD Manjinder Galloway> 12/21/221124 [facility] Work Phone: [phone]) 338-719011-07-2023 Progress note Author Celeste Alfonso [facility] December 20, 2022 9:35pm Note Date/Time December 20, 2022 1 :26pm [facility] [address] [place] [address] Hospitalist Progress Note Signed with Addenda Patient: Hilary Maldonado MR#: [id number] : 1945 Acct:[id number] Age/Sex: 77 / M Adm Date: 3 Loc: Room: [address] [place] [address] Type: ADM IN Attending Dr: Celeste Alfonso [...] Laboratory work up and Imaging studies reviewed staffing administrator - reviewed EKG - personally reviewed by [...] Syringe SUBCUT 12/20/23 09:59 Not Given DAILY@1000 [facility] Hydralazine HCl 10 mg 12/19/22 21:40 Hydralazine [...] 10 Mg Tablet PO 12/21/23 08:59 DAILY [facility] A&P - Hospitalist Assessment/Plan (1) Altered mental [...] <Electronically signed by Celeste Alfonso MD> 12/20/22 5416 [facility] Work Phone: [phone] 744-714711-07-2023 History and physical note Author Celeste Alfonso [facility] December 20, 2022 1:20pm Note Date/Time December 19, 2022 8 :29pm [facility] [address] [place] [address] Hospitalist H&P Signed Patient: Hilary Maldonado MR#: [id number] : 1945 Acct:[id number] Age/Sex: 77 / M Adm Date: 3 Loc: Room: [address] [place] [address] Type: ADM IN Attending Dr: Celeste Alfonso [...] minor basilar parenchymal changes, without acute findings [facility] Medical History Chronic pain COPD (chronic obstructive [...] % (Auto) 22.0 % (.) 12/19/22 14:55 [place] % (Auto) 8.6 % (.) 12/19/22 14:55 Eos % (Auto) 2.5 % (.) 12/19/22 14:55 Baso % (Auto) 0.8 % (.) 12/19/22 14:55 Nucleat RBC Rel Count 0.5 /100 WBC (0-0.5) 12/19/22 14:55 Neut # (Auto) 7.0 x10E3/uL (1.8-7.7) 12/19/22 14:55 Lymph # (Auto) 2.3 x10E3/uL (1.00-4.8) 12/19/22 14:55 [place] # (Auto) 0.9 x10E3/uL (0.0-0.8) H 12/19/22 [...] signed by Celeste Alfonso MD> 12/20/22 1320 [facility] Work Phone: 1(336) 672-833210-10-2023 Hospital Discharge instructionsAmbulatory Orders* Initiate Home Health Time Frame: 11/22/22, Location: Determined By Patient Additional Instructions I may not have addressed or treated all of your medical illnesses or the abnormal blood work or imaging studies during this hospitalization. Please ask your primary care provider to obtain [facility] records entirely to follow up on all of the abnormal physical, laboratory, and imaging findings that I have not addressed. Please return back to the emergency room or seek medical attention if your symptoms worsen or return. Discharging you from [facility] does not mean that your medical care ends here and now. You may still need additional monitoring, work up, investigation, and treatment plan to be handled from this point on by out patient providers including your primary care provider and specialists. For any medication question, please contact your retail pharmacist or your primary care provider. Thank you. HOME HEALTH TO MANAGE: Nursing/PT/OT/Aide/Manager Of Organizational Development to eval and treat Monitor VS per protocol Monitor Urinary assessment and for signs of increased infection--UTI Monitor Neuro. assessment--Encephalopathy Monitor right knee pain--Arthritis, Gout Maintain dressing change every 3 days: Mepilex border foam to Coccyx for protection Assist with medication management and provide medication education Provide education on high risk fall precautions [facility] [place] Work Phone: 1(249) 953-750310-10-2023 Discharge summary Author Adin Boyce [facility] November 22, 2022 12:25pm Note Date/Time November 22, 2022 9 :20am [facility] [address] [place] [address] Discharge Summary Signed Patient: Hilary Maldonado MR#: [id number] : 1945 Acct:[id number] Age/Sex: 77 / M Adm Date: 3 Loc: Room: [address] [place] [address]: Adin Boyce MD Copies to: [...] depression, and headaches who presented to the [facility] emergency department on 11/20/22. He was seen [...] we strongly encouraged him to attended a prison facility for strengthening and support for his [...] Plan Discharge Plan Patient Disposition: Home Health [facility] Activity: No Activity Restriction Diet: Regular Additional Instructions: HOME HEALTH TO MANAGE: Nursing/PT/OT/Aide/Manager Of Organizational Development to eval and treat Monitor VS per [...] ask your primary care provider to obtain [facility] records entirely to follow up on all of the abnormal physical, laboratory, and imaging findings that I have not addressed. Please return back to the emergency room or seek medical attention if your symptoms worsen or return. Discharging you from [facility] does not mean that your medical care [...] Patient Ordered By: Adin Boyce Follow Up: Hilary Rice MD [Active Staff] - (Please call [...] signed by Adin Boyce MD> 11/22/22 1225 [facility] Work Phone: 1([phone]) 570-675210-09-2023 Progress note Author Adin Boyce [facility] November 21, 2022 11:51am Note Date/Time November 21, 2022 9: 30am [facility] [address] [place] [address] Hospitalist Progress Note Signed Patient: Hilary Maldonado MR#: [id number] : 1945 Acct:[id number] Age/Sex: 77 / M Adm Date: 3 Loc: Room: [address] [place] [address] Type: ADM IN Attending Dr: Adin Boyce [...] Lactated Ringers IV 11/20/23 12:14 75 mls/hr .[id number] EDWIGE Administration Lorazepam 0.5 mg 11/20/22 13:37 [...] Functional decline Falls - PT/OT evaluations - survey workers supervisor/adult protective caseworker for appropriate and safe disposition. Plan is on discharging him to a skilled care. Patient may need long-term [facility] living.. Discussed with nursing management - Maintain fall precaution Home medications reviewed and restarted as appropriate Diet: Regular DVT ppx:heparin Code status: DNR CCA without intubation Disposition: inpatient status Documented By: Ra Padilla MD, RES 11/21/22 09 21 Signed By: <Electronically signed by MD HOA Padilla> 11/21/2258 <Electronically signed by Adin Boyce MD> 11/21/22 1151 [facility] Work Phone: 1(127) 123-790010-09-2023 Consult note Author Hilary Rice [facility] November 21, 2022 11:20am Note Date/Time November 21, 2022 10 :36am [facility] [address] [place] [address] Orthopedic Consult Note Signed Patient: Hilary Maldonado MR#: [id number] : 1945 Acct:[id number] Age/Sex: 77 / M Adm Date: 3 Loc: Room: [address] [place] [address] Type: ADM IN Attending Dr: Adin Boyce MD Copies to: Tyree Ambrosio Jr, DO MD Hilary Suarez MD~ History [...] Patient states there is no significant worsening. [facility] Medical History Chronic pain COPD (chronic obstructive [...] % (Auto) 80.5, Lymph % (Auto) 12.1, [place] % (Auto) 7.0, Eos % (Auto) 0.1, Baso % (Auto) 0.3, Nucleat RBC Rel Count 0.2, Neut # (Auto) 5.8, Lymph # (Auto) 0.9 L, [place] # (Auto) 0.5, Eos # (Auto) 0.0, Baso # (Auto) 0.0 11/20/22 08:22: Urine Color Dark yellow A, Urine Appearance Clear, Urine pH 5.0,Ur Specific [place] 1.026, Urine Protein 300 H, Urine Glucose [...] % (Auto) 74.0, Lymph % (Auto) 16.1, [place] % (Auto) 9.3, Eos % (Auto) 0.2, Baso % (Auto) 0.4, Nucleat RBC Rel Count 0.1, Neut # (Auto) 8.9 H, Lymph # (Auto) 1.9, [place] # (Auto) 1.1 H, Eos # (Auto) [...] signed by MD Hilary Rice> 11/21/22 1120 [facility] [facility] Work Phone: 1(483) 153-411610-08-2023 History and physical note Author Tricia Salazar [facility] November 20, 2022 12:20pm Note Date/Time November 20, 2022 12 :09pm [facility] [address] [place] [address] Hospitalist H&P Signed Patient: Hilary Maldonado MR#: [id number] 3460 : 1945 Acct:[id number] Age/Sex: 77 / M Adm Date: 3 Loc: Room: [address] [place] [address] Type: ADM IN Attending Dr: Tricia Salazar [...] of Systems Unobtainable due to mental status [facility] Medical History Chronic pain COPD (chronic obstructive [...] % (Auto) 16.1 % (.) 11/20/22 07:21 [place] % (Auto) 9.3 % (.) 11/20/22 07:21 Eos % (Auto) 0.2 % (.) 11/20/22 07:21 Baso % (Auto) 0.4 % (.) 11/20/22 07:21 Nucleat RBC Rel Count 0.1 /100 WBC (0-0.5) 11/20/22 07:21 Neut # (Auto) 8.9 x10E3/uL (1.8-7.7) H 11/20/22 07:21 Lymph # (Auto) 1.9 x10E3/uL (1.00-4.8) 11/20/22 07:21 [place] # (Auto) 1.1 x10E3/uL (0.0-0.8) H 11/20/22 [...] pH 5.0 (5.0-9.0) 11/20/22 08:22 Ur Specific [place] 1.026 (1.001-1.030) 11/20/22 08:22 Urine Protein 300 [...] Physical debility Functional decline Falls -PT/OT evaluations -survey workers supervisor/adult protective caseworker for appropriate and safe disposition -Maintain fall [...] signed by Tricia Salazar MD> 11/20/22 1220 [facility] [place] Work Phone: 1(398) 505-787509-21-2023 Progress note Author Aashish Natarajan [facility] November 03, 2022 2:20pm Note Date/Time November 02, 2022 12:33pm [facility] [address] [place] [address] Hospitalist Progress Note Signed Patient: Hilary Maldonado MR#: [id number] 3460 : 1945 Acct:[id number] Age/Sex: 77 / M Adm Date: 3 Loc: 4N Room: [address] [place] [address] Type: ADM IN Attending Dr: Aashish Natarajan [...] Syringe SUBCUT 11/02/23 09:59 40 mg DAILY@10 EDWIEG Administration Famotidine 40 mg 11/02/22 09:00 11/02/22 [...] Lactated Ringers IV 11/03/22 01:09 75 mls/hr .[id number] EDWIGE Administration Remdesivir 100 mg/ Dextrose 250 [...] oral intake ?Continue gentle hydration PT/OT evaluations ?survey workers supervisor/adult protective caseworker for appropriate and safe disposition ?Maintain fall [...] signed by Aashish Natarajan DO> 11/03/22 1420 [facility] [place] Work Phone: 1(887) 159-981809-21-2023 Progress note Author Aashish Natarajan [facility] November 03, 2022 2:20pm Note Date/Time November 03, 2022 1:55pm [facility] [address] [place] [address] Hospitalist Progress Note Signed Patient: Hilary Maldonado MR#: [id number] : 1945 Acct:[id number] Age/Sex: 77 / M Adm Date: 3 Loc: 4N Room: [address] [place] [address] Type: ADM IN Attending Dr: Aashish Natarajan [...] oral intake ?Continue gentle hydration ?PT/OT evaluations ?survey workers supervisor/adult protective caseworker for appropriate and safe disposition ?Maintain fall [...] signed by Aashish Natarajan DO> 11/03/22 1420 [facility] [place] Work Phone: 1(458) 803-354609-20-2023 Consult note Author Ayaz Cruz [facility] November 02, 2022 1:34pm Note Date/Time November 02, 2022 1:21pm [facility] [address] [place] [address] Physiatry (Rehab) Consult Note Signed Patient: Hilary Maldonado MR#: [id number] 3460 : 1945 Acct:[id number] Age/Sex: 77 / M Adm Date: 3 Loc: Room: [address] [place] [address] Type: ADM IN Attending Dr: Aashish Natarajan DO Copies to: MD Tyree Zuñiga Jr, DO Kyle T Cleveland, DO~ HPI Consult Date: 11/02/22 Requesting Physician: Aashish Natarajan DO Primary Care Provider: Damian Ambrosio DO Consult Narrative Reason for consult: Evaluation for inpatient rehab HPI: Mr. Maldonado is a 77 year old male with PMH gout, arthritis, tobacco dependence, HTN,and depression who presented to [facility] with his sister due to confusion and inability to take care of himself. The patient was recently at [facility] due to rightknee pain 2/2 gout. He [...] negative unless noted below or in HPI [facility] Medical History Chronic pain COPD (chronic obstructive [...] % (Auto) 53.4 Lymph % (Auto) 32.6 [place] % (Auto) 13.4 Eos % (Auto) 0.3 Baso % (Auto) 0.3 Nucleat RBC Rel Count 0.3 Neut # (Auto) 3.0 Lymph # (Auto) 1.8 [place] # (Auto) 0.7 Eos # (Auto) 0.0 [...] Color Urine Appearance Urine pH Ur Specific Crockett Urine Protein Urine Glucose (UA) Urine Ketones Urine Occult Blood Urine Nitrite Urine Bilirubin Urine Urobilinogen Ur Leukocyte Esterase Urine RBC Urine WBC Ur Squamous Epith Cells Urine Bacteria Hyaline Casts COVID-19 Clin Com 11/01/22 11/02/22 11/02/22 21:21 00:15 04:56 Corrected WBC Uncorrected WBC Count RBC Hgb Hct MCV MCH MCHC RDW Plt Count MPV Neut % (Auto) Lymph % (Auto) [place] % (Auto) Eos % (Auto) Baso % (Auto) Nucleat RBC Rel Count Neut # (Auto) Lymph # (Auto) [place] # (Auto) Eos # (Auto) Baso # [...] Appearance Clear Urine pH 5.5 Ur Specific [place] 1.024 Urine Protein 300 H Urine Glucose [...] PMH gout, arthritis, HTN, who presented to [facility] with confusion and inability to care for [...] physician supervision is bothreasonable and necessary, including srmy-im-wmuv visits at least 3 days/week with the [...] Allied health note review, nursing note review, systems consultant note review, discussion with nursing and case management, and more than 50% of my time was spent on counseling and coordination of care, time spent 65 minutes Patient was personally seen by me, Dr. Cruz, on the day of encounter, reviewed the history and the relevant portions of the chart, including current orders, allied health and systems consultant notes, labs/imaging and performed hill elements of exam and I formulated the plan of care and facilitated the medical decision making. Documented By: Ayaz Cruz MD 1317 Signed By: <Electronically signed by Ayaz Cruz MD> 11/02/22 8524 [facility] Work Phone: 1(662) 123-739009-20-2023 Hospital Discharge instructions Additional Instructions REHAB TO MANAGE: Patient tested positive for Covid on 11/02/22. Please follow precautions per protocol. PT/OT to eval and treat Monitor VS per protocol Maintain high risk fall precautions [facility] [place] [facility]: 1(463) 309-460309-20-2023 History and physical note Author Tricia Salazar [facility] November 02, 2022 4:33am Note Date/Time November 01, 2022 10:50pm [facility] [address] [place] [address] Hospitalist H&P Signed with Addenda Patient: Hilary Maldonado MR#: [id number] 3460 : 1945 Acct:[id number] Age/Sex: 77 / M Adm Date: 3 Loc: 4N Room: 6C7416-3 Type: ADM INOo Attending Dr: Tricia Salazar MD Copies to: Tyree mAbrosio Jr, DO Tricia Salazar MD~ ADDENDUM1 Resp [...] course patient was offered to go to prison facility since he lives by himself and unable to care for self, unable to perform his ADLs or takehis medications, also has poor oral intake. He was evaluated by psychiatry on previous admission and deemed to have capacity to make decisions. Patient refused to go to prison facility and went home upon discharge. Now [...] of Systems Unobtainable due to mental status [facility] Medical History Chronic pain COPD (chronic obstructive [...] % (Auto) 32.6 % (.) 11/01/22 19:49 [place] % (Auto) 13.4 % (.) 11/01/22 19:49 Eos % (Auto) 0.3 % (.) 11/01/22 19:49 Baso % (Auto) 0.3 % (.) 11/01/22 19:49 Nucleat RBC Rel Count 0.3 /100 WBC (0-0.5) 11/01/22 19:49 Neut # (Auto) 3.0 x10E3/uL (1.8-7.7) 11/01/22 19:49 Lymph # (Auto) 1.8 x10E3/uL (1.00-4.8) 11/01/22 19:49 [place] # (Auto) 0.7 x10E3/uL (0.0-0.8) 11/01/22 19:49 [...] pH 5.5 (5.0-9.0) 11/01/22 21:21 Ur Specific Cro[place] 1.024 (1.001-1.030) 11/01/22 21:21 Urine Protein 300 [...] uric acid -Monitor kidney function -PT/OT evaluations -survey workers supervisor/adult protective caseworker for appropriate and safe disposition -Maintain fall [...] <Electronically signed by Tricia Salazar MD> 11/01/22 0238 [facility] [place] Work Phone: 1(160) 135-242109-16-2023 Progress note Author Pedro Luis Frye [facility] October 29, 2022 2:05pm Note Date/Time October 29, 2022 11:12am [facility] [address] [place] [address] Hospitalist Progress Note Signed with Addenda Patient: Hilary Maldonado MR#: [id number] : 1945 Acct:[id number] Age/Sex: 77 / M Adm Date: 3 Loc: Room: [address] [place] [address] Type: ADM IN Attending Dr: Pedro Luis [...] signed by Pedro Luis Frye MD> 10/29/22 1409 Date of Service: 10/29/2022 Subjective Subjective Narrative: [...] by Pedro Luis Frye MD> 10/29/22 1403 [facility] Work Phone: 1(261) 316-269809-16-2023 Consult note Author William booker [facility] October 29, 2022 9:37am Note Date/Time October 29, 2022 9:28am [facility] [address] [place] [address] Psychiatry Consult Note Signed Patient: Hilary Maldonado MR#: [id number] 3460 : 1945 Acct:[id number] Age/Sex: 77 / M Adm Date: 3 Loc: Room: [address] [place] [address] Type : ADM IN Attending Dr: Pedro [...] He is able to identify his location [facility] Medical History Chronic pain COPD (chronic obstructive [...] <Electronically signed by William Williamson MD> 10/29/2237 [facility] Work Phone: 1(251) 581-725109-16-2023 Progress note Author Pedro Luis Frye [facility] October 29, 2022 8:32am Note Date/Time October 28, 2022 8:20am [facility] [address] [place] [address] Hospitalist Progress Note Signed with Addenda Patient: Hilary Maldonado MR#: [id number] 3460 : 1945 Acct:[id number] Age/Sex: 77 / M Adm Date: 3 Loc: Room: [address] [place] [address] Type: ADM IN Attending Dr: Pedro Luis [...] by Pedro Luis Frye MD> 10/29/22 0832 [facility] Work Phone: 1(384) 725-272809-15-2023 History and physical note Author Hunter Silvestre [facility] October 28, 2022 8:09pm Note Date/Time October 26, 2022 11:49pm [facility] [address] [place] [address] Hospitalist H&P Signed Patient: Hilary Maldonado MR#: [id number] 3460 : 1945 Acct:[id number] Age/Sex: 77 / M Adm Date: 3 Loc: Room: [address] [place] [address] Type: ADM IN Attending Dr: Pedro Luis Frye MD Copies to: MD Tyree Montes Jr, DO MD Siddhartha Mcleod, CASH POSTING REPRESENTATIVE~ HPI DATE OF EXAMINATION: 10/26/22 CHIEF COMPLAINT: [...] no ST changes noted. Thrombocytopenia noted, platelet [id number] on the CBC?this is elevated from his [...] Zofran. He will be admitted to the [facility] telemetry floor under the care of the hospitalist team for further evaluation and treatment. Review of Systems Review of Systems Review of systems: A 10 point review of systems was obtained, negative unless noted in the HPI or below. [facility] Medical History (Updated 10/27/22 @ 00:25 by [...] <Electronically signed by Hunter Silvestre MD> 10/28/222008 [facility] Work Phone: 1([phone]) 176-447209-15-2023 Consult note Author Ayaz Cruz [facility] October 28, 2022 12:43pm Note Date/Time October 28, 2022 12:29pm [facility] [address] [place] [address] Physiatry (Rehab) Consult Note Signed Patient: Hilary Maldonado MR#: [id number] 3460 : 1945 Acct:[id number] Age/Sex: 77 / M Adm Date: 3 Loc: Room: [address] [place] [address] Type: ADM IN Attending Dr: Pedro Luis [...] negative unless noted below or in HPI [facility] Medical History Chronic pain COPD (chronic obstructive [...] % (Auto) 64.6 Lymph % (Auto) 24.1 [place] % (Auto) 7.5 Eos % (Auto) 3.3 Baso % (Auto) 0.5 Nucleat RBC Rel Count 0.1 Neut # (Auto) 4.8 Lymph # (Auto) 1.8 [place] # (Auto) 0.6 Eos # (Auto) 0.2 [...] MPV Neut % (Auto) Lymph % (Auto) [place] % (Auto) Eos % (Auto) Baso % (Auto) Nucleat RBC Rel Count Neut # (Auto) Lymph # (Auto) [place] # (Auto) Eos # (Auto) Baso # [...] gout and chronic pain who presented to [facility] with intractable right knee pain, likely due to an acute gouty attack. Treated with colchicine and steroidswith improvement in pain. Patient does have functional deficits below baseline,but he does not have an appropriate diagnosis for inpatient rehab. Given this, we would recommend a prison facility for continued therapy needs prior to [...] Allied health note review, nursing note review, systems consultant note review, discussion with nursing and case management, and more than 50% of my time was spent on counseling and coordination of care, time spent 65 minutes Patient was personally seen by me, Dr. Cruz, on the day of encounter, reviewed the history and the relevant portions of the chart, including current orders, allied health and systems consultant notes, labs/imaging and performed hill elements of exam and I formulated the plan of care and facilitated the medical decision making. Documented By: Ayaz Cruz MD 1228 Signed By: <Electronically signed by Ayaz Cruz MD> 10/28/22 1243 [facility] [place] Work Phone: 1(737) 391-490509-15-2023 Progress note Author Victor M Kumar [facility] October 28, 2022 11:57am Note Date/Time October 28, 2022 11:58am [facility] [address] [place] [address] Orthopedic Progress Note Signed Patient: Hilary Maldonado MR#: [id number] 3460 : 1945 Acct:[id number] Age/Sex: 77 / M Adm Date: 3 Loc: Room: [address] [place] [address] Type: ADM IN Attending Dr: Pedro Luis [...] % (Auto) 64.6 Lymph % (Auto) 24.1 [place] % (Auto) 7.5 Eos % (Auto) 3.3 Baso % (Auto) 0.5 Nucleat RBC Rel Count 0.1 Neut # (Auto) 4.8 Lymph # (Auto) 1.8 [place] # (Auto) 0.6 Eos # (Auto) 0.2 [...] MPV Neut % (Auto) Lymph % (Auto) [place] % (Auto) Eos % (Auto) Baso % (Auto) Nucleat RBC Rel Count Neut # (Auto) Lymph # (Auto) [place] # (Auto) Eos # (Auto) Baso # [...] by Victor M Kumar DO> 10/28/22 1157 [facility] Work Phone: [phone]) 100-141209-14-2023 Consult note Author Victor M Kumar [facility] October 27, 2022 3:11pm Note Date/Time October 27, 2022 5:47am [facility] [address] [place] [address] Orthopedic Consult Note Signed Patient: Hilary Maldonado MR#: [id number] 3460 : 1945 Acct:[id number] Age/Sex: 77 / M Adm Date: 3 Loc: Room: [address] [place] [address] Type: ADM IN Attending Dr: Pedro Luis [...] and patient does not participate in conversation [facility] Medical History (Updated 10/27/22 @ 00:25 by [...] signed by Victor M Kumar DO> 10/27/22 4666 [facility] Work Phone: 1(558) 582-593609-14-2023 Progress note Author Pedro Luis Frye [facility] October 27, 2022 12:29pm Note Date/Time October 27, 2022 11:05am [facility] [address] [place] [address] Hospitalist Progress Note Signed with Addenda Patient: Hilary Maldonado MR#: [id number] 3460 : 1945 Acct:[id number] Age/Sex: 77 / M Adm Date: 3 Loc: 3T Room: [address] [place] [address] Type: ADM IN Attending Dr: Pedro Luis Frye MD Copies to: ~ ADDENDUM1 Patient was personally seen by me on the day of encounter, reviewed his history and performed hill elements of exam and formulated the plan of care and confirmedthe resident/interns note below. Patient history of chronic pain on opiates and follows with pain management in [place]. Also has history of gout presented [...] Lactated Ringers IV 10/28/22 02:54 75 mls/hr .[id number] EDWIGE Administration Magnesium Sulfate 2 gm in [...] signed by Pedro Luis Frye MD> 10/27/22 1221 [facility] Work Phone: 1([phone]) 802-971107-29-2022 Progress note Author Dennis Camargo [facility] September 10, 2021 10:47am Note Date/Time September 10, 2021 10:3 1am [facility] [address] [place] [address] Hospitalist Progress Note Signed Patient: Hilary Maldonado MR#: [id number] : 1945 Acct:[id number] Age/Sex: 76 / M Adm Date: 2 Loc: Room: [address] [place] [address] Type: ADM INOo Attending Dr: Dennis Camargo [...] not seem to be effective. In the software database architect hours he had to be restrained. He [...] signed by Dennis Camargo DO> 09/10/21 1047 [facility] Work Phone: 1(197) 203-970007-29-2022 Consult note Author Anil Chun [facility] September 10, 2021 4:41pm Note Date/Time September 10, 2021 8:45 am [facility] [address] [place], [place] [address] Neurology Consult Note Signed Patient: Hilary Maldonado MR#: [id number] 3460 : 1945 Acct:[id number] Age/Sex: 76 / M Adm Date: 2 Loc: 4 Room: [address] [place] [address] Type: DIS INOo Attending Dr: Dennis Camargo DO Copies to: DO Tyree Peñaloza Jr, DO Kaitlyn Rizzo, DO, RES Kristopher L Lindbloom, DO~ HPI Consult Date: 09/10/21 Clothes Drier Repairer: Myla Wakefield DO, RES Reason for consult: [...] * Unable to assess CEREBELLAR EXAM: * Zgdyui-oz-yyyy and alternating movements unable to assess * Vwpj-lk-mbtv and alternating movements unable to assess REFLEX EXAM: * 2/4 throughout Results Laboratory Findings CBC and BMP: 09/10/21 04:33 09/10/21 04:33 Lab Results: Hemoglobin A1c 5.5 % (4.3-5.6) 09/10/21 04:33 Diagnostic Findings Imaging/Impressions: ITS Impressions Head CT 09/09/21 22:09 IMPRESSION: No acute intracranial findings. Impression dictated by: Andrei Green M.D.09/10/2021 7:47 AM Dictation Location: [place] [address] Chest X-Ray 09/09/21 22:58 IMPRESSION: No acute process. Impression dictated by: Andrei Green M.D.09/10/2021 8:04 AM Dictation Location: [place] [address] Assessment/Plan (1) Headache: Code(s): R51.9 - Headache, [...] signed by Anil Chun DO> 09/10/21 1641 [facility] Work Phone: 1([phone]) 587-366007-29-2022 History and physical note Author Andrea Major [facility] September 10, 2021 4:05am Note Date/Time September 10, 2021 3:50 am [facility] [address] [place] [address] Hospitalist H&P Signed Patient: Hilary Maldonado MR#: [id number] 3460 : 1945 Acct:[id number] Age/Sex: 76 / M Adm Date: 2 Loc: Room: [address] [place] [address] Type: ADM IN Attending Dr: Andrea Corea [...] negative unless noted below or in HPI [facility] for [facility]-19?: Yes Medical History [...] % (Auto) 44.2 % (.) 09/09/21 23:14 [place] % (Auto) 7.3 % (.) 09/09/21 23:14 Eos % (Auto) 6.0 % (.) 09/09/21 23:14 Baso % (Auto) 0.5 % (.) 09/09/21 23:14 Neut # (Auto) 1.9 x10E3/uL (1.8-7.7) 09/09/21 23:14 Lymph # (Auto) 2.0 x10E3/uL (1.00-4.8) 09/09/21 23:14 [place] # (Auto) 0.3 x10E3/uL (0.0-0.8) 09/09/21 23:14 [...] pH 6.0 (5.0-9.0) 09/09/21 23:52 Ur Specific [place] 1.020 (1.001-1.030) 09/09/21 23:52 Urine Protein Trace [...] signed by Andrea Corea MD> 09/10/21 0405 [facility] Work Phone: 1(882) 255-525506-01-2022 Evaluation note* Encounter Date Diagnosis Assessment Notes [...] agrees with this plan, denies any questions. [employer] Other Consult note Author Anil Chun [facility] September 10, 2021 4:41pm Note Date/Time September 10, 2021 8:45 am [facility] [address] [place] [address] Neurology Consult Note Signed Patient: Hilary Maldonado MR#: [id number] 3460 : 1945 Acct:[id number] Age/Sex: 76 / M Adm Date: 2 Loc: 4 Room: [address] [place] [address] Type: DIS INOo Attending Dr: Dennis Camargo DO Copies to: DO Tyree Peñaloza Jr, DO Myla Wakefield DO, HOA Camargo DO~ HPI Consult Date: 09/10/21 Clothes Drier Repairer: Myla Wakefield DO, RES Reason for consult: [...] * Unable to assess CEREBELLAR EXAM: * Xhfkze-tr-fpin and alternating movements unable to assess * Gqtp-cz-gvaj and alternating movements unable to assess REFLEX EXAM: * 2/4 throughout Results Laboratory Findings CBC and BMP: 09/10/21 04:33 09/10/21 04:33 Lab Results: Hemoglobin A1c 5.5 % (4.3-5.6) 09/10/21 04:33 Diagnostic Findings Imaging/Impressions: ITS Impressions Head CT 09/09/21 22:09 IMPRESSION: No acute intracranial findings. Impression dictated by: Andrei Green M.D.09/10/2021 7:47 AM Dictation Location: [place] [address] Chest X-Ray 09/09/21 22:58 IMPRESSION: No acute process. Impression dictated by: Andrei Green M.D.09/10/2021 8:04 AM Dictation Location: [facility]- Assessment/Plan (1) Headache: Code(s): R51.9 - Headache, [...] signed by Anil Chun DO> 09/10/21 1641 [facility] Work Phone: Consult note Author Victor M Kumar [facility] October 27, 2022 3:11pm Note Date/Time October 27, 2022 5:47am [facility] [address] [place] [address] Orthopedic Consult Note Signed Patient: Hilary Maldonado MR#: [id number] 3460 : 1945 Acct:[id number] Age/Sex: 77 / M Adm Date: 3 Loc: Room: [address] [place] [address] Type: ADM IN Attending Dr: Pedro Luis [...] and patient does not participate in conversation [facility] Medical History (Updated 10/27/22 @ 00:25 by [...] signed by Victor M Kumar DO> 10/27/22 1269 [facility] Work Phone: Consult note Author Ayaz Cruz [facility] October 28, 2022 12:43pm Note Date/Time October 28, 2022 12:29pm [facility] [address] [place] [address] Physiatry (Rehab) Consult Note Signed Patient: Hilary Maldonado MR#: [id number] : 1945 Acct:[id number] Age/Sex: 77 / M Adm Date: 3 Loc: Room: [address] [place] [address] Type: ADM IN Attending Dr: Pedro Luis [...] negative unless noted below or in HPI [facility] Medical History Chronic pain COPD (chronic obstructive [...] % (Auto) 64.6 Lymph % (Auto) 24.1 [place] % (Auto) 7.5 Eos % (Auto) 3.3 Baso % (Auto) 0.5 Nucleat RBC Rel Count 0.1 Neut # (Auto) 4.8 Lymph # (Auto) 1.8 [place] # (Auto) 0.6 Eos # (Auto) 0.2 [...] MPV Neut % (Auto) Lymph % (Auto) [place] % (Auto) Eos % (Auto) Baso % (Auto) Nucleat RBC Rel Count Neut # (Auto) Lymph # (Auto) [place] # (Auto) Eos # (Auto) Baso # [...] gout and chronic pain who presented to [facility] with intractable right knee pain, likely due to an acute gouty attack. Treated with colchicine and steroidswith improvement in pain. Patient does have functional deficits below baseline,but he does not have an appropriate diagnosis for inpatient rehab. Given this, we would recommend a prison facility for continued therapy needs prior to [...] Allied health note review, nursing note review, systems consultant note review, discussion with nursing and case management, and more than 50% of my time was spent on counseling and coordination of care, time spent 65 minutes Patient was personally seen by me, Dr. Cruz, on the day of encounter, reviewed the history and the relevant portions of the chart, including current orders, allied health and systems consultant notes, labs/imaging and performed hill elements of exam and I formulated the plan of care and facilitated the medical decision making. Documented By: Ayaz Cruz MD 1228 Signed By: <Electronically signed by Ayaz Cruz MD> 10/28/22 1298 [facility] Work Phone: Consult note Author Elizabeth Williamson [facility] October 29, 2022 9:37am Note Date/Time October 29, 2022 9:28am [facility] [address] [place] [address] Psychiatry Consult Note Signed Patient: Hilary Maldonado#: [id number] : 1945 Acct:[id number] Age/Sex: 77 / M Adm Date: 3 Loc: Room: 0J0583-3 Type : ADM IN Attending Dr: Pedro [...] He is able to identify his location [facility] Medical History Chronic pain COPD (chronic obstructive [...] signed by William Williamson MD> 10/29/22 0937 [facility] Work Phone: Consult note Author Ayaz rCuz [facility] November 02, 2022 1:34pm Note Date/Time November 02, 2022 1:21pm [facility] [address] [place] [address] Physiatry (Rehab) Consult Note Signed Patient: Hilary Maldonado MR#: [id number] : 1945 Acct:[id number] Age/Sex: 77 / M Adm Date: 3 Loc: Room: [address] [place] [address] Type: ADM IN Attending Dr: Aashish Natarajan DO Copies to: MD Tyree Zuñiga Jr, DO Kyle T Cleveland, DO~ HPI Consult Date: 11/02/22 Requesting Physician: Aashish Natarajan DO Primary Care Provider: Damian Ambrosio DO Consult Narrative Reason for consult: Evaluation for inpatient rehab HPI: Mr. Maldonado is a 77 year old male with PMH gout, arthritis, tobacco dependence, HTN,and depression who presented to [facility] with his sister due to confusion and inability to take care of himself. The patient was recently at [facility] due to rightknee pain 2/2 gout. He [...] negative unless noted below or in HPI [facility] Medical History Chronic pain COPD (chronic obstructive [...] % (Auto) 53.4 Lymph % (Auto) 32.6 [place] % (Auto) 13.4 Eos % (Auto) 0.3 Baso % (Auto) 0.3 Nucleat RBC Rel Count 0.3 Neut # (Auto) 3.0 Lymph # (Auto) 1.8 [place] # (Auto) 0.7 Eos # (Auto) 0.0 [...] Color Urine Appearance Urine pH Ur Specific [place] Urine Protein Urine Glucose (UA) Urine Ketones Urine Occult Blood Urine Nitrite Urine Bilirubin Urine Urobilinogen Ur Leukocyte Esterase Urine RBC Urine WBC Ur Squamous Epith Cells Urine Bacteria Hyaline Casts COVID-19 Clin Com 11/01/22 11/02/22 11/02/22 21:21 00:15 04:56 Corrected WBC Uncorrected WBC Count RBC Hgb Hct MCV MCH MCHC RDW Plt Count MPV Neut % (Auto) Lymph % (Auto) [place] % (Auto) Eos % (Auto) Baso % (Auto) Nucleat RBC Rel Count Neut # (Auto) Lymph # (Auto) [place] # (Auto) Eos # (Auto) Baso # [...] Appearance Clear Urine pH 5.5 Ur Specific [place] 1.024 Urine Protein 300 H Urine Glucose [...] PMH gout, arthritis, HTN, who presented to [facility] with confusion and inability to care for [...] physician supervision is bothreasonable and necessary, including [id number] visits at least 3 days/week with the [...] Allied health note review, nursing note review, systems consultant note review, discussion with nursing and case management, and more than 50% of my time was spent on counseling and coordination of care, time spent 65 minutes Patient was personally seen by me, Dr. Cruz, on the day of encounter, reviewed the history and the relevant portions of the chart, including current orders, allied health and systems consultant notes, labs/imaging and performed hill elements of exam and I formulated the plan of care and facilitated the medical decision making. Documented By: Ayaz Cruz MD [id number] Signed By: <Electronically signed by Ayaz Cruz MD> 11/02/22 1334 [facility] Work Phone: Consult note Author Manjinder Galloway [facility] December 21, 2022 11:25am Note Date/Time December 21, 2022 1 1:18am [facility] [address] [place] [address] Cardiology Consult Note Signed Patient: Hilary Maldonado MR#: [id number] : 1945 Acct:[id number] Age/Sex: 77 / M Adm Date: 3 Loc: Room: [address] [place] [address] Type: ADM IN Attending Dr: Celeste Alfonso [...] to the left circumflex remotely at the [facility]. Patient apparently was found on the [...] not been seen or follow-up by any professor of vegetable science recently. Echocardiogram since admission showed mild LV systolic dysfunction with LVEF around 45% with inferobasilar wall hypokinesis. 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 Rhythm strips demonstrate ventricularectopic beats. Troponin was [...] documented below: (Sinusrhythm with old inferior wall ME) A&P - Cardiology (1) Altered mental status: [...] signed by MD Manjinder Galloway> 12/21/22 1125 [facility] Work Phone: Consult note Author Andrei Araujo [facility] December 23, 2022 11:25am Note Date/Time December 23, 2022 11:20am [facility] [address] [place], [place] [id number] Vascular Surgery Consult Note Signed Patient: Hilary Maldonado MR#: [id number] : 1945 Acct:[id number] Age/Sex: 77 / M Adm Date: 3 Loc: 3T Room: [address] [place] [address] Type: ADM IN Attending Dr: Celeste Alfonso [...] of Systems Unobtainable due to mental status [facility] Medical History Chronic pain COPD (chronic obstructive [...] signed by MD Andrei Araujo> 12/23/22 1125 [facility] Work Phone: Consult note Author William booker [facility] April 28, 2023 10:12am Note Date/Time April 28, 2023 10: 01am [facility] [address] [place] [address] Psychiatry Consult Note Signed Patient: Hilary Maldonado MR#: [id number] : 1945 Acct:[id number] Age/Sex: 78 / M Adm Date: 4 Loc: 3T Room: 4Q6842-5 Type : ADM INOo Attending Dr: Mariano [...] of this year. He was at a prison facility from that time forward reportedly and [...] He is able to identify his location [facility] Medical History Dementia Parotid mass Gout Chronic [...] sleep #14 tabs 03/08/23 [Rx Confirmed 03/24/23] [id number]-[id number] 2 tab PO BID PRN migraine 04/27/23 [...] Color Urine Appearance Urine pH Ur Specific [place] Urine Protein Urine Glucose (UA) Urine Ketones [...] Appearance Clear Urine pH 6.0 Ur Specific [place] 1.020 Urine Protein 300 H Urine Glucose [...] signed by William Williamson MD> 04/28/23 1012 [facility] Work Phone: Consult note Author Hilary Rice [facility] April 29, 2023 4:57am Note Date/Time April 28, 2023 1:5 3pm [facility] [address] [place] [address] Orthopedic Consult Note Signed Patient: Hilary Maldonado MR#: [id number] : 1945 Acct:[id number] Age/Sex: 78 / M Adm Date: 4 Loc: Room: [address] [place] [address] Type: ADM INOo Attending Dr: Mariano Dennis [...] Orthopedics consulted for evaluation [facility] Medical History Dementia Parotid mass Gout [...] sleep #14 tabs 03/08/23 [Rx Confirmed 03/24/23] [id number]-vrkzqaqs 2 tab PO BID PRN migraine 04/27/23 [...] % (Auto) 47.4, Lymph % (Auto) 31.0, [place] % (Auto) 13.8, Eos % (Auto) 7.4, Baso % (Auto) 0.4, Nucleat RBC Rel Count 0.1, Neut # (Auto) 3.4, Lymph # (Auto) 2.2, [place] # (Auto) 1.0 H, Eos # (Auto) [...] Appearance Clear, Urine pH 6.0, Ur Specific [place] 1.020, Urine Protein 300 H, Urine Glucose [...] % (Auto) 62.4, Lymph % (Auto) 20.6, [place] % (Auto) 10.9, Eos % (Auto) 5.5, Baso % (Auto) 0.6, Nucleat RBC Rel Count 0.1, Neut # (Auto) 5.1, Lymph # (Auto) 1.7, [place] # (Auto) 0.9 H, Eos # (Auto) [...] % (Auto) Cancelled, Lymph % (Auto) Cancelled, [place] % (Auto) Cancelled, Eos % (Auto) Cancelled, Baso % (Auto) Cancelled, Nucleat RBC Rel Count Cancelled, Neut # (Auto) Cancelled, Lymph # (Auto) Cancelled, [place] # (Auto) Cancelled, Eos # (Auto) Cancelled, [...] <Electronically signed by MD Hilary Rice> 04/29/23 0821 [facility] Work Phone: Discharge summary Author Dennis Camargo [facility] September 10, 2021 6:16pm Note Date/Time September 10, 2021 6:16 pm [facility] [address] [place] [address] Discharge Summary Signed Patient: Hilary Maldonado MR#: [id number] : 1945 Acct:[id number] Age/Sex: 76 / M Adm Date: 2 Loc: Room: [address] [place] [address]: Dennis Camargo DO Copies to: [...] atherosclerotic heart disease and follows with a professor of vegetable science outside of her region. When he was [...] [facility]: Alkaline phosphatase was high at [...] % (Auto) 52.7, Lymph % (Auto) 33.2, [place] % (Auto) 7.3, Eos %(Auto) 6.2, Baso % (Auto) 0.6, Neut # (Auto) 2.3, Lymph # (Auto) 1.4, [place] # (Auto) 0.3, Eos # (Auto) 0.3, [...] Appearance Clear, Urine pH 6.0, Ur Specific [place] 1.020, Urine Protein Trace H, Urine Glucose [...] % (Auto) 42.0, Lymph % (Auto) 44.2, [place] % (Auto) 7.3, Eos %(Auto) 6.0, Baso % (Auto) 0.5, Neut # (Auto) 1.9, Lymph # (Auto) 2.0, [place] # (Auto) 0.3, Eos # (Auto) 0.3, [...] <Electronically signed by Dennis Camargo DO> 09/10/211815 [facility] Work Phone: Discharge summary Author Pedro Luis Frye [facility] October 30, 2022 11:00am Note Date/Time October 30, 2022 11:00am [facility] [address] [place], [place] [id number] Discharge Summary Signed Patient: Hilary Maldonado MR#: [id number] : 1945 Acct:[id number] Age/Sex: 77 / M Adm Date: 3 Loc: 3T Room: 4U3491-[address]: Pedro Luis Frye MD Copies [...] as he is refusing to go to prison facility. Discussed with the patient regarding compliance [...] by Pedro Luis Frye MD> 10/30/22 1100 [facility] Work Phone: evaluation note* Diagnosis Onset Date Resolution Status Acute delirium acute ASHD (arteriosclerotic heart disease) acute Elevated troponin acute Headache acute Hypokalemia acute Hypomagnesemia acute Thrombocytopenia acute [facility] Work Phone: evaluation noteNo assessment information available [facility] Work Phone: evaluation note* Diagnosis Onset Date Resolution Status Chronic pain acute Effusion of right knee acute Frequent falls acute Generalized weakness acute Gout acute HTN (hypertension) acute Impaired mobility and ADLs a cute Inability to ambulate due to knee acute Thrombocytopenia acute [facility] Work Phone: evaluation note* Diagnosis Onset Date Resolution Status Chronic pain acute Effusion of right knee acute Encounter for assessment of healthcare decision-making capacity acute Frequent falls acute Generalized weakness acute Gout acute HTN (hypertension) acute Impaired mobility and ADLs a cute Inability to ambulate due to knee acute Thrombocytopenia acute [facility] Work Phone: evaluation note* Diagnosis Onset Date [...] Unable to care for self acut e [facility] Work Phone: Evaluation note* Diagnosis Onset Date [...] Unable to care for self acut e [facility] Work Phone: Evaluation note* Diagnosis Onset Date [...] status acute Fall acute Volume depletion acute [facility] Work Phone: Evaluation note* Diagnosis Onset Date [...] Altered mental status acute Elevated troponin acute [facility] Work Phone: Evaluation note* Diagnosis Onset Date [...] Carotid artery disease acute Elevated troponin acute [facility] Work Phone: Evaluation note* Diagnosis Onset Date [...] acute Elevated troponin acute Parotid mass acute [facility] Work Phone: Evaluation note* Diagnosis Syncope and collapse- Primary Two-vessel coronary artery disease Ischemic cardiomyopathy Other specified forms of chronic ischemic heart disease Carotid stenosis, right Occlusion and stenosis of carotid artery without mention of cerebral infarction Pre-operative cardiovascular examination Shortness of breath Mixed hyperlipidemia documented in this encounter [facility] Work Phone: Evaluation note* Diagnosis Mass of left parotid gland- Primary Carotid stenosis, right Occlusion and stenosis of carotid artery without mention of cerebral infarction Mass of left parotid gland documented in this encounter [facility] Work Phone: Evaluation note* Diagnosis Mass of left parotid gland- Primary Carotid stenosis, right Occlusion and stenosis of carotid artery without mention of cerebral infarction Mass of left parotid gland documented in this encounter [facility] Work Phone: Evaluation note* Diagnosis Onset Date Resolution Status Altered mental status acute Carotid artery disease acute Elevated troponin acute Parotid mass acute [facility] Work Phone: Evaluation note* Diagnosis Onset Date Resolution Status Altered mental status acute Carotid artery disease acute Elevated troponin acute Parotid mass acute Acute exacerbation of CHF (congestive heart failure) acute Acute on chronic systolic (congestive) heart failure acute [place] kidney [place]) [place] Anemia acute Carotid artery disease acute Encounter for assessment of healthcare decision-making capacity acute Generalized weakness acute Gout acute HTN (hypertension) acute Impaired mobility and ADLs a cute Inability to walk acute 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 Occipital stroke acute Parotid mass acute Proteinuria acute Unable to care for self acut e [facility] Work Phone: Evaluation note* Diagnosis Carotid stenosis, right- Primary Occlusion and stenosis of carotid artery without mention of cerebral infarction documented in this encounter [facility] Work Phone: Evaluation note* Diagnosis Onset Date Resolution Status Acute on chronic systolic (congestive) heart failure acute [place] (acute kidney injury) [place] Anemia acute Carotid artery disease acute Encounter for assessment of healthcare decision-making capacity acute HTN (hypertension) acute Impaired mobility and ADLs a cute Inability to walk acute 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 Occipital stroke acute Parotid mass acute Proteinuria acute Unable to care for self acut e Acute exacerbation of CHF (congestive heart failure) resolved Parotid mass acute Parotid mass acute [facility] Work Phone: Evaluation note* Diagnosis Onset Date Resolution Status Acute on chronic systolic (congestive) heart failure acute [place] (acute kidney injury) [place] Anemia acute Carotid artery disease acute Encounter [...] Unable to care for self acut e [facility] Work Phone: Evaluation note* Diagnosis Onset Date Resolution Status Acute on chronic systolic (congestive) heart failure acute [place] (acute kidney injury) [place] Anemia acute Carotid artery disease acute Encounter [...] Unable to care for self acut e [facility] Work Phone: Evaluation note* Diagnosis Malignant neoplasm of parotid gland (Multi)- 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 (Multi) Malignant neoplasm of parotid gland HTN (hypertension) Unspecified essential hypertension Chronic renal impairment, stage 3 (moderate) (Multi) Benign prostatic hyperplasia without lower urinary tract symptoms Parotid mass Swelling, mass, or lump in head and neck documented in this encounter [facility] Work Phone: Evaluation note* Diagnosis 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 documented in this encounter [facility] Work Phone: Evaluation note* Diagnosis Malignant neoplasm of parotid gland (Multi)- 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 (Multi)- Primary Malignant neoplasm of parotid gland documented in this encounter [facility] Work Phone: Evaluation note* Diagnosis Malignant [...] of parotid gland documented in this encounter [facility] Work Phone: Evaluation note* Diagnosis Adult [...] (CMS/HCC) Mixed hyperlipidemia documented in this encounter [facility] HealthcareEvaluation note* Diagnosis 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 Malignant neoplasm of salivary gland, unspecified [...] site (Multi)- Primary documented in this encounter [facility] Work Phone: Evaluation note* Diagnosis Chronic obstructive pulmonary disease, unspecified COPD type ([facility])- Primary 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, with anxiety ([facility]) Adult failure to thrive Atherosclerosis of [place] coronary artery of [place] heart without angina pectoris Polyarthritis Unspecified polyarthropathy or polyarthritis, site unspecified Hypertension, essential Unspecified essential hypertension Degenerative disease of nervous system ([facility]) Encephalopathy, unspecified Ischemic cardiomyopathy Other specified forms of chronic ischemic heart disease Other diseases of salivary glands Primary osteoarthritis of both knees Gastroesophageal reflux disease without esophagitis Esophageal reflux Hyperlipidemia, unspecified hyperlipidemia type Generalized anxiety disorder Allergic rhinitis, unspecified seasonality, unspecified trigger Dysphagia, unspecified type Nicotine dependence, cigarettes, uncomplicated Peripheral vascular disease, unspecified ([facility]) Peripheral vascular disease, unspecified Occlusion and stenosis of right carotid artery Major depressive disorder, single episode, severe without psychotic features ([facility]) Gout, unspecified cause, unspecified chronicity, unspecified site Insomnia, unspecified type [facility] this encounter 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* Diagnosis Wound of right foot- Primary Degenerative disease of nervous system ([facility]) Peripheral vascular disease, unspecified ([facility]) Peripheral vascular disease, unspecified Hypertension, essential Unspecified essential hypertension [facility] Diagnosis Multiple open wounds of right lower leg- Primary Peripheral vascular disease, unspecified Ischemic cardiomyopathy Other specified forms of chronic ischemic heart disease Hypertension, essential Unspecified essential hypertension 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, with anxiety ([facility]) [facility] Diagnosis Multiple open wounds of right lower leg- Primary Polyarthritis Unspecified polyarthropathy or polyarthritis, site unspecified 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, with anxiety ([facility]) Hypertension, essential Unspecified essential hypertension documented [facility] encounter [facility] Diagnosis Malignant neoplasm of parotid gland (Multi)- Primary Malignant neoplasm of parotid gland Impacted cerumen of left ear Impacted cerumen documented in this encounter [facility] Work Phone: Evaluation note* Diagnosis Multiple open wounds of right lower leg- Primary Wound of right foot 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, with anxiety ([facility]) Hypertension, essential Unspecified essential hypertension [facility] Diagnosis Wound of right foot- Primary Primary osteoarthritis of both knees 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, with anxiety ([facility]) Chronic obstructive pulmonary disease, unspecified COPD type ([facility]) Atherosclerosis of [place] coronary artery of [place] heart without angina pectoris [facility] Diagnosis Malignant neoplasm of parotid gland (Multi)- Primary Malignant neoplasm of parotid gland documented in this encounter [facility] Work Phone: Evaluation note* Diagnosis 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, with anxiety ([facility])- Primary Hypertension, essential Unspecified essential hypertension Peripheral [...] right lower extremity documented in this encounter [facility] Work Phone: History and physical note Author Andrea Major [facility] September 10, 2021 4:05am Note Date/Time September 10, 2021 3:50 am [facility] [address] [place] [address] Hospitalist H&P Signed Patient: Hilary Maldonado MR#: [id number] : 1945 Acct:[id number] Age/Sex: 76 / M Adm Date: 2 Loc: Room: [address] [place] [address] Type: ADM IN Attending Dr: Andrea Corea [...] % (Auto) 44.2 % (.) 09/09/21 23:14 [place] % (Auto) 7.3 % (.) 09/09/21 23:14 Eos % (Auto) 6.0 % (.) 09/09/21 23:14 Baso % (Auto) 0.5 % (.) 09/09/21 23:14 Neut # (Auto) 1.9 x10E3/uL (1.8-7.7) 09/09/21 23:14 Lymph # (Auto) 2.0 x10E3/uL (1.00-4.8) 09/09/21 23:14 [place] # (Auto) 0.3 x10E3/uL (0.0-0.8) 09/09/21 23:14 [...] pH 6.0 (5.0-9.0) 09/09/21 23:52 Ur Specific [place] 1.020 (1.001-1.030) 09/09/21 23:52 Urine Protein Trace [...] signed by Andrea Corea MD> 09/10/21 0405 [facility] Work Phone: History and physical note Author Hunter Silvestre [facility] October 28, 2022 8:09pm Note Date/Time October 26, 2022 11:49pm [facility] [address] [place] [address] Hospitalist H&P Signed Patient: Hilary Maldonado MR#: [id number] : 1945 Acct:[id number] Age/Sex: 77 / M Adm Date: 3 Loc: Room: [address] [place] [address] Type: ADM IN Attending Dr: Pedro Luis Frye MD Copies to: MD Tyree Montes Jr, MD Siddhartha Hartman, CASH POSTING REPRESENTATIVE~ HPI DATE OF EXAMINATION: 10/26/22 CHIEF COMPLAINT: [...] no ST changes noted. Thrombocytopenia noted, platelet on the CBC?this is elevated from his [...] Zofran. He will be admitted to the [facility] telemetry floor under the care of the hospitalist team for further evaluation and treatment. Review of Systems Review of Systems Review of systems: A 10 point review of systems was obtained, negative unless noted in the HPI or below. [facility] Medical History (Updated 10/27/22 @ 00:25 by [...] <Electronically signed by Hunter Silvestre MD> 10/28/222008 [facility] Work Phone: History and physical note Author Tricia Salazar [facility] November 02, 2022 4:33am Note Date/Time November 01, 2022 10:50pm [facility] [address] [place] [address] Hospitalist H&P Signed with Addenda Patient: Hilary Maldonado MR#: [id number] : 1945 Acct:[id number] Age/Sex: 77 / M Adm Date: 3 Loc: 4N Room: [address] [place] [address] Type: ADM INOo Attending Dr: Tricia Salazar [...] course patient was offered to go to prison facility since he lives by himself and unable to care for self, unable to perform his ADLs or takehis medications, also has poor oral intake. He was evaluated by psychiatry on previous admission and deemed to have capacity to make decisions. Patient refused to go to prison facility and went home upon discharge. Now [...] of Systems Unobtainable due to mental status [facility] Medical History Chronic pain COPD (chronic obstructive [...] % (Auto) 32.6 % (.) 11/01/22 19:49 [place] % (Auto) 13.4 % (.) 11/01/22 19:49 Eos % (Auto) 0.3 % (.) 11/01/22 19:49 Baso % (Auto) 0.3 % (.) 11/01/22 19:49 Nucleat RBC Rel Count 0.3 /100 WBC (0-0.5) 11/01/22 19:49 Neut # (Auto) 3.0 x10E3/uL (1.8-7.7) 11/01/22 19:49 Lymph # (Auto) 1.8 x10E3/uL (1.00-4.8) 11/01/22 19:49 [place] # (Auto) 0.7 x10E3/uL (0.0-0.8) 11/01/22 19:49 [...] pH 5.5 (5.0-9.0) 11/01/22 21:21 Ur Specific [place] 1.024 (1.001-1.030) 11/01/22 21:21 Urine Protein 300 [...] uric acid -Monitor kidney function -PT/OT evaluations -survey workers supervisor/adult protective caseworker for appropriate and safe disposition -Maintain fall [...] <Electronically signed by Tricia Salazar MD> 11/01/22 8483 [facility] [place] Work Phone: History and physical note Author Tricia Salazar [facility] November 20, 2022 12:20pm Note Date/Time November 20, 2022 12 :09pm [facility] [address] [place] [address] Hospitalist H&P Signed Patient: Hilary Maldonado MR#: [id number] : 1945 Acct:[id number] Age/Sex: 77 / M Adm Date: 3 Loc: Room: [address] [place] [address] Type: ADM IN Attending Dr: Tricia Salazar [...] of Systems Unobtainable due to mental status [facility] Medical History Chronic pain COPD (chronic obstructive [...] % (Auto) 16.1 % (.) 11/20/22 07:21 [place] % (Auto) 9.3 % (.) 11/20/22 07:21 Eos % (Auto) 0.2 % (.) 11/20/22 07:21 Baso % (Auto) 0.4 % (.) 11/20/22 07:21 Nucleat RBC Rel Count 0.1 /100 WBC (0-0.5) 11/20/22 07:21 Neut # (Auto) 8.9 x10E3/uL (1.8-7.7) H 11/20/22 07:21 Lymph # (Auto) 1.9 x10E3/uL (1.00-4.8) 11/20/22 07:21 [place] # (Auto) 1.1 x10E3/uL (0.0-0.8) H 11/20/22 [...] pH 5.0 (5.0-9.0) 11/20/22 08:22 Ur Specific [place] 1.026 (1.001-1.030) 11/20/22 08:22 Urine Protein 300 [...] Physical debility Functional decline Falls -PT/OT evaluations -survey workers supervisor/adult protective caseworker for appropriate and safe disposition -Maintain fall [...] signed by Tricia Salazar MD> 11/20/22 1220 [facility] Work Phone: History and physical note Author Celeste Alfonso [facility] December 20, 2022 1:20pm Note Date/Time December 19, 2022 8 :29pm [facility] [address] [place] [address] Hospitalist H&P Signed Patient: Hilary Maldonado MR#: [id number] : 1945 Acct:[id number] Age/Sex: 77 / M Adm Date: 3 Loc: Room: [address] [place] [address] Type: ADM IN Attending Dr: Celeste Alfonso [...] minor basilar parenchymal changes, without acute findings [facility] Medical History Chronic pain COPD (chronic obstructive [...] % (Auto) 22.0 % (.) 12/19/22 14:55 [place] % (Auto) 8.6 % (.) 12/19/22 14:55 Eos % (Auto) 2.5 % (.) 12/19/22 14:55 Baso % (Auto) 0.8 % (.) 12/19/22 14:55 Nucleat RBC Rel Count 0.5 /100 WBC (0-0.5) 12/19/22 14:55 Neut # (Auto) 7.0 x10E3/uL (1.8-7.7) 12/19/22 14:55 Lymph # (Auto) 2.3 x10E3/uL (1.00-4.8) 12/19/22 14:55 [place] # (Auto) 0.9 x10E3/uL (0.0-0.8) H 12/19/22 [...] signed by Celeste Alfonso MD> 12/20/22 1320 [facility] Work Phone: History general Narrative [...] anxie ty / SOB / Dysphagia 2013 [employer] Other Hospital Discharge instructionsAmbulatory Orders* Initiate Home Health Time Frame: 1 Day, Location: Determined By Patient Additional Instructions Home Health to manage care: - DNRCCA without intubation - PT/OT eval and treat - Routine vital signs - Medication management and education - BMP in 8 days, results to Primary Care [facility] Work Phone: Hospital Discharge instructions Additional Instructions SNF TO MANAGE: PT/OT to eval and treat Monitor VS per protocol Monitor voiding--Urine retention Monitor Neuro. and Cardiac assessment--Syncope Dietitian recommendations: Ensure Plus, 1 container, daily with a meal Maintain high risk fall precautions [facility] [place] Work Phone: Hospital Discharge instructions Additional Instructions [...] aid. - Fall precautions - [facility] [place] Work Phone: Hospital Discharge instructions Additional Instructions [...] precautions Care to be managed by [facility] Work Phone: InstructionsNot on filedocumented [...] [facility] Author Dennis Camargo [facility] September 10, 2021 10:47am Note Date/Time September 10, 2021 10:3 1am [facility] [address] [place] [address] Hospitalist Progress Note Signed Patient: Hilary Maldonado MR#: [id number] : 1945 Acct:[id number] Age/Sex: 76 / M Adm Date: 2 Loc: Room: [address] [place] [address] Type: ADM INOo Attending Dr: Dennis Camargo [...] not seem to be effective. In the software database architect hours he had to be restrained. He [...] signed by Dennis Camargo, DO> 09/10/21 1047 [facility] Work Phone: Progress note Author Pedro Luis Frye [facility] October 27, 2022 12:29pm Note Date/Time October 27, 2022 11:05am [facility] [address] [place] [address] Hospitalist Progress Note Signed with Addenda Patient: Hilary Maldonado MR#: [id number] : 1945 Acct:[id number] Age/Sex: 77 / M Adm Date: 3 Loc: Room: [address] [place] [address] Type: ADM IN Attending Dr: Pedro Luis Frye MD Copies to: ~ ADDENDUM1 Patient was personally seen by me on the day of encounter, reviewed his history and performed hill elements of exam and formulated the plan of care and confirmedthe resident/interns note below. Patient history of chronic pain on opiates and follows with pain management in [place]. Also has history of gout presented [...] Lactated Ringers IV 10/28/22 02:54 75 mls/hr .[id number] Administration Magnesium Sulfate 2 gm in [...] by Pedro Luis Frye MD> 10/27/22 1227 [facility] Work Phone: Progress note Author Pedro Luis Frye [facility] October 29, 2022 8:32am Note Date/Time October 28, 2022 8:20am [facility] [address] [place] [address] Hospitalist Progress Note Signed with Addenda Patient: Hilary Maldonado MR#: [id number] : 1945 Acct:[id number] Age/Sex: 77 / M Adm Date: 3 Loc: Room: [address] [place] [address] Type: ADM IN Attending Dr: Pedro Luis [...] by Pedro Luis Frye MD> 10/29/22 0832 [facility] Work Phone: Progress note Author Victor M Kumar [facility] October 28, 2022 11:57am Note Date/Time October 28, 2022 11:58am [facility] [address] [place] [address] Orthopedic Progress Note Signed Patient: Hilary Maldonado MR#: [id number] : 1945 Acct:[id number] Age/Sex: 77 / M Adm Date: 3 Loc: 3T Room: [address] [place] [address] Type: ADM IN Attending Dr: Pedro Luis [...] % (Auto) 64.6 Lymph % (Auto) 24.1 [place] % (Auto) 7.5 Eos % (Auto) 3.3 Baso % (Auto) 0.5 Nucleat RBC Rel Count 0.1 Neut # (Auto) 4.8 Lymph # (Auto) 1.8 [place] # (Auto) 0.6 Eos # (Auto) 0.2 [...] MPV Neut % (Auto) Lymph % (Auto) [place] % (Auto) Eos % (Auto) Baso % (Auto) Nucleat RBC Rel Count Neut # (Auto) Lymph # (Auto) [place] # (Auto) Eos # (Auto) Baso # [...] by Victor M Kumar DO> 10/28/22 1157 [facility] Work Phone: Progress note Author Pedro Luis Frye [facility] October 29, 2022 2:05pm Note Date/Time October 29, 2022 11:12am [facility] [address] [place] [address] Hospitalist Progress Note Signed with Addenda Patient: Hilary Maldonado MR#: [id number] : 1945 Acct:[id number] Age/Sex: 77 / M Adm Date: 3 Loc: Room: [address] [place] [address] Type: ADM IN Attending Dr: Pedro Luis [...] by Pedro Luis Frye MD> 10/29/22 1403 [facility] Work Phone: Progress note Author Aashish Natarajan [facility] November 03, 2022 2:20pm Note Date/Time November 02, 2022 12:33pm [facility] [address] [place] [address] Hospitalist Progress Note Signed Patient: Hilary Maldonado MR#: [id number] : 1945 Acct:[id number] Age/Sex: 77 / M Adm Date: 3 Loc: 4N Room: [address] [place] [address] Type: ADM IN Attending Dr: Aashish Natarajan [...] Lactated Ringers IV 11/03/22 01:09 75 mls/hr .[id number] EDWIGE Administration Remdesivir 100 mg/ Dextrose 250 [...] oral intake ?Continue gentle hydration PT/OT evaluations ?survey workers supervisor/adult protective caseworker for appropriate and safe disposition ?Maintain fall [...] signed by Aashish Natarajan DO> 11/03/22 1420 [facility] [place] Work Phone: Progress note Author Aashish Natarajan [facility] November 03, 2022 2:20pm Note Date/Time November 03, 2022 1:55pm [facility] [address] [place] [address] Hospitalist Progress Note Signed Patient: Hilary Maldonado MR#: [id number] : 1945 Acct:[id number] Age/Sex: 77 / M Adm Date: 3 Loc: 4N Room: [address] [place] [address] Type: ADM IN Attending Dr: Aashish Natarajan [...] oral intake ?Continue gentle hydration ?PT/OT evaluations ?survey workers supervisor/adult protective caseworker for appropriate and safe disposition ?Maintain fall [...] signed by Aashish Natarajan DO> 11/03/22 1420 [facility] [place] Work Phone: Progress note Author Celeste Alfonso [facility] December 20, 2022 9:35pm Note Date/Time December 20, 2022 1 :26pm [facility] [address] [place] [address] Hospitalist Progress Note Signed with Stewart Patient: Hilary Maldonado MR#: [id number] : 1945 Acct:[id number] Age/Sex: 77 / M Adm Date: 3 Loc: Room: [address] [place] [address] Type: ADM IN Attending Dr: Celeste Alfonso [...] Laboratory work up and Imaging studies reviewed staffing administrator - reviewed EKG - personally reviewed by [...] 10 Mg Tablet PO 12/21/23 08:59 DAILY [facility] A&P - Hospitalist Assessment/Plan (1) Altered mental [...] signed by Celeste Alfonso MD> 12/20/22 1326 [facility] Work Phone: Progress note Author Celeste Alfonso [facility] December 21, 2022 2:39pm Note Date/Time December 21, 2022 2 :35pm [facility] [address] [place] [address] Hospitalist Progress Note Signed Patient: Hilary Maldonado MR#: [id number] : 1945 Acct:[id number] Age/Sex: 77 / M Adm Date: 3 Loc: Room: [address] [place] [address] Type: ADM IN Attending Dr: Celeste Alfonso [...] Laboratory work up and Imaging studies reviewed staffing administrator - reviewed EKG - personally reviewed by [...] bedside. Documented By: Celeste Alfonso MD 12/21/22 1436 Signed By: <Electronically signed by Celeste Alfonso MD> 12/21/22 1434 [facility] Work Phone: Progress note Author Mariano Dennis [facility] April 28, 2023 6:50pm Note Date/Time April 28, 2023 6:5 0pm [facility] [address] [place], [place] [id number] Hospitalist Progress Note Signed Patient: Hilary Maldonado MR#: [id number] : 1945 Acct:[id number] Age/Sex: 78 / M Adm Date: 4 Loc: Room: [address] [place] [address] Type: ADM INOo Attending Dr: Mariano Dennis [...] signed by Mariano Dennis DO> 04/28/23 1850 [facility] Work Phone: Progress note Author Mariano Dennis [facility] April 29, 2023 5:30pm Note Date/Time April 29, 2023 5:3 0pm [facility] [address] [place] [address] Hospitalist Progress Note Signed Patient: Hilary Maldonado MR#: [id number] : 1945 Acct:[id number] Age/Sex: 78 / M Adm Date: 4 Loc: Room: [address] [place] [address] Type: ADM INOo Attending Dr: Mariano Dennis [...] signed by Mariano Dennis DO> 04/29/23 1730 [facility] Work Phone: Progress note Author Mariano Dennis [facility] April 30, 2023 5:34pm Note Date/Time April 30, 2023 5:3 4pm [facility] [address] [place] [address] Hospitalist Progress Note Signed Patient: Hilary Maldonado MR#: [id number] : 1945 Acct:[id number] Age/Sex: 78 / M Adm Date: 4 Loc: Room: [address] [place] [address] Type: ADM INOo Attending Dr: Mariano Dennis [...] <Electronically signed by Mariano Dennis DO> 04/30/23 0220 [facility] [place] Work Phone: Progress note Author Hilary Rice [facility] May 01, 2023 6:38am Note Date/Time May 01, 2023 6:3 8am [facility] [address] [place] [address] Orthopedic Progress Note Signed Patient: Hilary Maldonado MR#: [id number] : 1945 Acct:[id number] Age/Sex: 78 / M Adm Date: 4 Loc: 3T Room: [address] [place] [address] Type: ADM INOo Attending Dr: Mariano Dennis [...] signed by MD Hilary Rice> 05/01/23 0638 [facility] Work Phone: Progress note Author Celeste Alfonso [facility] May 01, 2023 12:36pm Note Date/Time May 01, 2023 12: 36pm [facility] [address] [place] [address] Hospitalist Progress Note Signed Patient: Hilary Maldonado MR#: [id number] : 1945 Acct:[id number] Age/Sex: 78 / M Adm Date: 4 Loc: Room: [address] [place] [address] Type: ADM IN Attending Dr: Celeste Alfonso [...] signed by Celeste Alfonso MD> 05/01/23 1236 [facility] Work Phone: Reason for visit Narrative* Auth/Cert Specialty Diagnoses / Procedures Referred By Contac t Referred To Contact Diagnoses 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] Procedures NC EXC PRTD ALLYSSA/PRTD GLND TOT DSJ&PRSRV FACIAL NR NC GRAFTING OF AUTOLOGOUS SOFT TISS BY DIRECT EXC Parotidectomy Excision [place] [address] [place] [address] [facility] Avelino Mcmillan [address] [place] [address] Referral ID Status Reason Start Date Expiration Date Visits Re quested Visits Authorized [id number] 1 1 [facility] Work Phone: Summary Purpose Family History [...] thrive Primary osteoarthritis of right knee Procedures NC OFFICE/OUTPATIENT NEW HIGH MDM 60 MINUTES Raheem Ambrosio, DO [address] [place] [address] Mariano Hart, PT [address] [place] [address] Referral ID Status Reason Start Date Expiration Date Visits Requested Visits Authorized [id number] Authorized Specialty Services Required 10/11/2023 04/08/2024 10 10 Specialty Diagnoses / Procedures Referred By Contac t Referred To Contact Diagnoses Two-vessel coronary artery disease Pre-operative cardiovascular examination Procedures ECG 12 Lead Manjinder Galloway MD [address] [place] [address] Referral ID Status Reason Start Date Expiration Date V isits Requested Visits Authorized [id number] Authorized 11/07/2023 11/06/2024 1 1 Specialty Diagnoses / Procedures Referred By Contac t Referred To Contact Cardiology Diagnoses Two-vessel coronary artery disease Procedures Follow Up In Cardiology Manjinder Galloway MD [address] [place] [address] Manjinder Galloway MD [address] [place] [address] Referral ID Status Reason Start Date Expiration Date V isits Requested Visits Authorized [id number] Authorized 11/07/2023 11/06/2024 1 1 Specialty Diagnoses / Procedures Referred By Contac t Referred To Contact Cardiology Diagnoses Carotid stenosis, right Procedures Vascular US carotid artery duplex bilateral Deepali Olson, CASH POSTING REPRESENTATIVE-COMMUNICATION INSTRUCTOR [address] [place] [address] Referral ID Status Reason Start Date Expiration Date Visits Requested Visits Authorized [id number] Pending Review Perform Procedure 02/16/2023 02/16/2024 1 1 Specialty Diagnoses / Procedures Referred By Contac t Referred To Contact Radiology Diagnoses Two-vessel coronary artery disease Ischemic cardiomyopathy Carotid stenosis, right Pre-operative cardiovascular examination Procedures Nuclear Stress Test CHG MYOCARDIAL SPECT MULTIPLE STUDIES CHG MYOCARDIAL SPECT SINGLE STUDY AT REST OR STRESS Manjinder Galloway MD [address] [facility] 2, [address] [address] Referral ID Status Reason Start Date Expiration Date V isits Requested Visits Authorized [id number] Pending Review 01/17/2023 01/17/2024 5 5 Specialty Diagnoses / Procedures Referred By Kevin ruby Referred To Contact Cardiology Diagnoses Two-vessel coronary artery disease Procedures Follow Up In Cardiology Manjinder Galloway MD [address] [facility] 2, [address] [address] Manjinder Galloway MD [address] [facility] 2, [address] [address] Referral ID Status Reason Start Date Expiration Date V isits Requested Visits Authorized [id number] Authorized 01/17/2023 01/17/2024 1 1 Additional Source Comments (unrecognized sect ion and content) No Status Records FoundNo Status Records FoundNo Status Records FoundNo Status Records FoundNo Status Records FoundNo Status Records Found INFORMATION SOURCE (unrecogn ized section and content) DATE CREATED AUTHOR 02/10/2021 [facility] dical Specialist DATE CREATED AUTHOR AUTHOR'S ORGANIZ ATION 08/04/2023 [facility] DATE CREATED AUTHOR AUTHOR'S ORGANIZ ATION 10/13/2023 [facility] Specialists EPIC DATE CREATED AUTHOR AUTHOR'S ORGANIZ ATION 11/17/2023 [facility] DATE CREATED AUTHOR AUTHOR'S ORGANIZ ATION 06/13/2024 [facility] DATE CREATED AUTHOR AUTHOR'S ORGANIZ ATION 08/07/2024 [facility] REASON FOR VISIT (unrecogniz ed section and content) Reason Comments Follow-up Discharge follow up 12/22 Specialty Diagnoses / Procedures Referred By Kevin ruby Referred To Contact Cardiology Diagnoses Syncope and collapse Procedures Follow Up In Cardiology Manjinder Galloway MD [address] [place] [address] 2, [address] [address] Manjinder Galloway MD [address] [place] [address] 2, [address] [address] Referral ID Status Reason Start Date Expiration Date V isits Requested Visits Authorized [id number] Authorized 12/22/2022 12/22/2023 1 1 Specialty Diagnoses / Procedures Referred By Contac t Referred To Contact Radiology Diagnoses Two-vessel coronary artery disease Ischemic cardiomyopathy Carotid stenosis, right Pre-operative cardiovascular examination Procedures Nuclear Stress Test CHG MYOCARDIAL SPECT MULTIPLE STUDIES CHG MYOCARDIAL SPECT SINGLE STUDY AT REST OR STRESS Manjinder Galloway MD [address] [place] [address], [address] [address] Referral ID Status Reason Start Date Expiration Date V isits Requested Visits Authorized [id number] Pending Review 01/17/2023 01/17/2024 5 5 Specialty Diagnoses / Procedures Referred By Contac t Referred To Contact Cardiology Diagnoses Carotid stenosis, right Procedures Vascular US carotid artery duplex bilateral WesleyDeepali gutierrez, CASH POSTING REPRESENTATIVE-COMMUNICATION INSTRUCTOR [address] [place] [address] Referral ID Status Reason Start Date Expiration Date Visits Requested Visits Authorized [id number] Pending Review Perform Procedure 02/16/2023 02/16/2024 1 1 Reason Comments New Patient Visit Carotid Artery Disease Reason Comments Follow-up Reason Comments Follow-up Reason Comments Follow-up [address] Melanie schroeder carotid ectetomy Specialty Diagnoses / Procedures Referred By Contac t Referred To Contact Diagnoses Two-vessel coronary artery disease Pre-operative cardiovascular examination Procedures ECG 12 Lead Manjinder Galloway MD [address] [place] [address], [address] [address] Referral ID Status Reason Start Date Expiration Date V isits Requested Visits Authorized [id number] Authorized 11/07/2023 11/06/2024 1 1 Reason Comments Weakness, Gen Reason Comments Follow-up 6 month Two-vessel c oronary artery disease Specialty Diagnoses / Procedures Referred By Contac t Referred To Contact Cardiology Diagnoses Two-vessel coronary artery disease Procedures Follow Up In Cardiology Manjinder Galloway MD [address] [place] [address] 2, [place] [phone] Phone: tel: fax: Manjinder Galloway MD [address] [place] [address] 2, [facility] [address] [place] [phone] Phone: tel: fax: Referral ID Status Reason Start Date Expiration Date V isits Requested Visits Authorized [id number] Pending Review 11/07/2023 11/06/2024 1 1 Reason [...] MD Other Provider Active Jazmin Arnett , [facility]- Other Provider Active Caron Doherty MD Other Provider Active Andrei Araujo MD Other Provider Active Team Status: Active Member Role Status Dates Franck Pérez MD Attending Provider Active Damian Ambrosio , Primary Care Provider Active Nicol Almanza , Referring Provider Active Chrome Cleaner Relationship Specialty Start Date End Date Generic Provider, No Assigned PcpMD [address] [place] [address] PCP - General Family Medicine 12/31/22 Franck Pérez MD [address] [place] [address] Referring Physician Radiation Oncology 01/12/23 Chrome Cleaner Relationship Specialty Start Date End Date Generic Provider, No Assigned MD Gabriel [address] [place] [address] PCP - General Family Medicine 12/31/22 Franck Pérez MD [address] [place] [address] Referring Physician Radiation Oncology 01/12/23 Chrome Cleaner Relationship Specialty Start Date End Date Generic Provider, No Assigned MD Gabriel [address] [place] [address] PCP - General Family Medicine 12/31/22 Franck Pérez MD [address] [place], [place] [address] Referring Physician Radiation Oncology 01/12/23 Nicol Almanza DO [address] [place] [address] Referring Physician Otolaryngology 01/27/23 Chrome Cleaner Relationship Specialty Start Date End Date Generic Provider, No Assigned MD Gabriel [address] [place] [address] PCP - General Family Medicine 12/31/22 Franck Pérez MD [address] [place] [address] Referring Physician Radiation Oncology 01/12/23 Nicol Almanza DO [address] [place] [address] Referring Physician Otolaryngology 01/27/23 Team Status: Active Member Role Status Dates Damian Ambrosio , Primary Care Provider Active Christi Wilson , DO Emergency Provider Active Mariano Dennis [...] End: December 23, 2022 Jazmin Arnett , [facility] Other Provider Active Sta rt: December 19, [...] Provider Active S tart: January 03, 2023 Chrome Cleaner Relationship Specialty Start Date End Date Generic Provider, No Assigned Pcp, [address] [place] [address] PCP - General Family Medicine 12/31/22 Franck Pérez MD [address] [place] [address] Referring Physician Radiation Oncology 01/12/23 Nicol Almanza DO [address] [place] [place] [address] Referring Physician Otolaryngology 01/27/23 Team Status: Active [...] May 01, 2023 End: May 02, 2023 Chrome Cleaner Relationship Specialty Start Date End Date Raheem Ambrosio DO [address] [place] [address] PCP - [facility] 04/14/23 Raheem Ambrosio DO [address] [place] [address] PCP - General Family Medicine 10/06/23 Chrome Cleaner Relationship Specialty Start Date End Date Raheem Ambrosio DO [address] [place] [address] PCP - General Family Medicine 11/15/23 Franck Pérez MD [address] [place] [address] Referring Physician Radiation Oncology 01/12/23 Nicol Almanza DO [address] [place] [address] Referring Physician Otolaryngology 01/27/23 Chrome Cleaner Relationship Specialty Start Date End Date Raheem Ambrosio DO [address] [place] [id number] PCP - General Family Medicine 11/15/23 Franck Pérez MD [address] [place] [address] Referring Physician Radiation Oncology 01/12/23 Nicol Almanza DO [address] [place] [address] Referring Physician Otolaryngology 01/27/23 Chrome Cleaner Relationship Specialty Start Date End Date Generic Provider, No Assigned MD Gabriel PCP - General Family Medicine 12/31/22 Franck Pérez MD [address] [place] [address] Referring Physician Radiation Oncology 01/12/23 Nicol Almanza DO [address] [place] [place] [address] Referring Physician Otolaryngology 01/27/23 Chrome Cleaner Relationship Specialty Start Date End Date Generic Provider, No Assigned MD Gabriel PCP - General Family Medicine 12/31/22 Franck Pérez MD [address] [facility] [place] [address] Referring Physician Radiation Oncology 01/12/23 Nicol Almanza, DO [address] [place] [address] Referring Physician Otolaryngology 01/27/23 Chrome Cleaner Relationship Specialty Start Date End Date Raheem Ambrosio DO [address] [place] [address] PCP - ACO Reach 04/14/23 Raheem Ambrosio DO [address] [place] [address] PCP - General Family Medicine 10/06/23 Chrome Cleaner Relationship Specialty Start Date End Date Raheem Ambrosio DO [address] [place] [address] PCP - ACO Reach 04/14/23 Raheem Ambrosio DO [address] [place] [address] PCP - General Family Medicine 10/06/23 Chrome Cleaner Relationship Specialty Start Date End Date Raheem Ambrosio DO [address] [place] [address] PCP - ACO Reach 04/14/23 Raheem Ambrosio DO [address] [place] [address] PCP - General Family Medicine 10/06/23 Chrome Cleaner Relationship Specialty Start Date End Date Raheem Ambrosio DO [address] [place] [address] PCP - ACO Reach 04/14/23 Raheem Ambrosio DO [address] [place] [address] PCP - General Family Medicine 10/06/23 Chrome Cleaner Relationship Specialty Start Date End Date Raheem Ambrosio DO [address] [place] [address] PCP - General Family Medicine 11/15/23 Franck Pérez MD [address] [place] [address] Referring Physician Radiation Oncology 01/12/23 Nicol Almanza DO [address] [place] [address] Referring Physician Otolaryngology 01/27/23 Chrome Cleaner Relationship Specialty Start Date End Date Raheem Ambrosio DO [address] [place] [address] PCP - General Family Medicine 11/15/23 Franck Pérez MD [address] [place] [address] Referring Physician Radiation Oncology 01/12/23 Nicol Almanza DO [address] [place] [address] Referring Physician Otolaryngology 01/27/23 Chrome Cleaner Relationship Specialty Start Date End Date Raheem Ambrosio DO [address] [place] [address] PCP - General Family Medicine 11/15/23 Franck Pérez MD [address] [place] [address] Referring Physician Radiation Oncology 01/12/23 Nicol Almanza DO [address] [place] [address] Referring Physician Otolaryngology 01/27/23 Goals (unrecognized section [...] Yes 0054 (Not Given - Provider: Betty Schluz RN - Reason: Patient/family refused)0925 (Given - [...] at 1999 2246 (Not Given - Provider: Minog Santo RN - Reason: Order parameters not [...] met) 1106 (Not Given - Provider: Sherry Faye RN - Reason: Patient/family refused) 1108 (Not [...] BE BASED ON THE PRIMARY CLINICAL RECORDS. [facility]. provides no warranty or guarantee of the accuracy or completeness of information in this document.
== END 2024-11-07 11:49 | disposition home or self-care (01) ==
LOC: WC 11:50
PROVIDERS: PCP Family Medicine; Visit Provider Physician Assistant
DX: L89.893 Pressure ulcer of other site, stage 3 (principal)
CPT/HCPCS: G0463